=== PATIENT | female | born 1950 | race Caucasian/White ===

== ENCOUNTER 2023-11-01 16:01 | Outpatient (OUT) | payer OTHER, SELFPAY ==
[2023-11-01 16:39] LABS: Basophils Absolute Auto 0.1 10^3/uL (0.0-0.1); Basophils Percent Auto 0.4 % (0.2-2.0); Eosinophils Absolute Auto 0.5 10^3/uL (0.0-0.7); Hematocrit 43.1 % (36.0-48.0); Hemoglobin 13.9 g/dL (12.0-16.0); Immature Granulocytes Abs Auto 0.06 10^3/uL (0.00-0.03); Immature Granulocytes Pct Auto 0.5 % (0.0-0.5); Lymphocytes Absolute Auto 2.1 10^3/uL (1.2-3.8); Lymphocytes Percent Auto 17.2 % (20.5-60.0); Mean Corpuscular HGB Conc 32.3 g/dL (29.9-35.2); Mean Corpuscular Hemoglobin 28.9 pg (26.7-34.0); Mean Corpuscular Volume 89.6 fL (81.0-99.0); Mean Platelet Volume 10.4 fL (9.5-13.5); Monocytes Absolute Auto 0.6 10^3/uL (0.3-0.8); Monocytes Percent Auto 5.2 % (1.7-12.0); Neutrophils Absolute Auto 8.7 10^3/uL (1.4-6.5); Neutrophils Percent Auto 72.7 % (43.0-75.0); Platelet Count 308 10^3/uL (150-450); Red Blood Count 4.81 10^6/uL (4.20-5.40); Red Cell Distribution Width 13.9 % (11.0-15.0)
[2023-11-01 18:10] LABS: Digoxin 0.8 ng/mL (0.9-2.0)
[2023-11-01 18:11] LABS: Alanine Aminotransferase 20 U/L (14-59); Albumin Globulin Ratio 0.6; Albumin Level 3.3 g/dL (3.4-5.0); Alkaline Phosphatase 107 U/L (46-116); Anion Gap 10.2; Aspartate Amino Transferase 19 U/L (15-37); BUN Creatinine Ratio 20.3; Bilirubin Total 0.5 mg/dL (0.2-1.0); Calcium 9.5 mg/dL (8.5-10.1); Carbon Dioxide 26.8 mmol/L (21.0-32.0); Chloride 101 mmol/L (98-107); Estimated GFR (African America >60 (>=60); Estimated GFR (Non-African Ame >60 (>=60); Globulin 5.3 g/dL; Glucose 176 mg/dL (74-106); Sodium 134 mmol/L (136-145); Total Protein 8.6 g/dL (6.4-8.2)
== END 2023-11-01 16:02 | disposition home or self-care (01) ==
LOC: LAB 16:05
PROVIDERS: PCP Internal Medicine; Visit Provider Nurse Practitioner Family
DX: I48.21 Permanent atrial fibrillation (principal); I11.0 Hypertensive heart disease with heart failure
CPT/HCPCS: 36415; 80053; 80162; 85025

== ENCOUNTER 2023-11-15 08:05 | Outpatient (OUT) | payer MEDICARE, SELFPAY ==
--- OUTSIDE RECORDS SUMMARY | 2023-11-15 08:10 | XMS_ITS | CCD ---
Author Name Unknown Address [address] [place] [id number] Organization [facility] Care Team Providers Care Atomic Spectroscopist Name Role Phone YAHIR BROTHERS Referring Unavailable YAHIR BROTHERS Primary Care Unavailable LAN FROST Attending Unavailable LAN FROST Admitting Unavailable CO Procedure Practitioner Unavailab le UNKNOWN, PROVIDER Surgeon Unavailable MISC, DR COELLO Admitting Unavailable MISC, DR COELLO Attending Unavailable BROTHERS, DR GAO Primary Care Unavailable MISC, DR COELLO Consulting Unavailable ANDREA, DR GAO Admitting Unavailable ANDREA, DR GAO Attending Unavailable ANDREA, DR GAO Primary Care Unavailable BROTHERS, DR GAO Consulting Unavailable ZIEBER, DR YAYA Miller Consulting Unavailable ANDREA, DR GAO Admitting Unavailable BROTHERS, DR GAO Attending Unavailable ANDREA, DR GAO Primary Care Unavailable RBOTHERS, DR GAO Consulting Unavailable AUBURN, DR JEANETTE Armenta Consulting Unavailable YAHIR BROTHERS Attending Unavailable YAHIR BROTHERS Attending Unavailable BROTHERSYAHIR Attending Unavailable MOUKARAMAN DEL ROSARIO Attending Unavailable JESSICA PRECIADO Attending Unavailable EBER JOSHUA Attending Unavailable Allergies Allergy Classification Reported Allergen(s) Allergy Type Date of Onset Reaction(s) Facility (1 source) Estrogens Drug Allergy 9 [facility] (1 source) heparin Drug Allergy 9 [facility] (2 sources) Penicillins; Translations: [PENICILLINS] Drug allergy (disorder) 9 [facility] (2 sources) pregabalin Drug Allergy 9 [facility] (3 sources) Bleach (Sodium Hypochlorite); Translations: [Bleach (Sodium Hypochlorite)] Propensity to adverse reactions (disorder) 9 [facility] (2 sources) Aztreonam; Translations: [ESTROGENS, CONJUGATED] Drug Allergy 2 [facility] (1 source) heparin Drug Allergy [facility] (2 sources) Penicillin; Translations: [PENICILLIN] Drug Allergy 9 [facility] (1 source) Misc-ENV; Translations: [Misc-ENV] Propensity to adverse reactions (disorder) [facility] (1 source) heparin; Translations: [HEPARIN (PORCINE)] Drug Allergy 2 [facility] (1 source) heparin; Translations: [HEPARIN SODIUM, PORCINE] Drug Allergy 1 [facility] (1 source) pregabalin; Translations: [PREGABALIN] Drug Allergy 2 [facility] Problems Active Problems Problem Classification Problem Date Documented Da te Episodic/Chronic Congestive heart failure; nonhypertensive (2 sources) Chronic systolic (congestive) heart failure; Translations: [Chronic systolic (congestive) heart failure] Onset: 07-28-2022 Chronic Disorders of lipid metabolism (2 sources) Mixed hyperlipidemia; Translations: [Mixed hyperlipidemia] Onset: 05-23-2023 Chronic Essential hypertension (2 sources) Essential (primary) hypertension; Translations: [Essential (primary) hypertension] Onset: 02-19-2023 Chronic Gastrointestinal hemorrhage (2 sources) Melena; Translations: [Melena] Onset: 11-01-2023 Episodic Hypertension with complications and secondary hypertension (2 sources) Hypertensive heart disease with heart failure; Translations: [Hypertensive heart disease with heart failure] Onset: 11-01-2023 Chronic Other circulatory disease (2 sources) Presence of other vascular implants and grafts; Translations: [Presence of other vascular implants and grafts] Onset: 07-28-2022 Chronic Other nutritional; endocrine; and metabolic disorders (2 sources) Morbid (severe) obesity due to excess calories; Translations: [Morbid (severe) obesity due to excess calories] Onset: 07-28-2022 Chronic Other screening for suspected conditions (not mental disorders or infectious disease) (4 sources) Encounter for screening mammogram for malignant neoplasm of breast; Translations: [ENC SCR MAMMO MALIG NEOPLASM BREAST] Onset: 12-27-2022 Episodic Residual codes; unclassified (1 source) Family history of malignant neoplasm of breast; Translations: [FAMILY HX MALREGIS NEOPLASM OF BREAST] Onset: 01-02-2023 Episodic Residual codes; unclassified (1 source) Family history of malignant neoplasm of other genital organs; Translations: [FAM HX MALREGIS NEOPLSM OTH GENIT ORGN] Onset: 01-02-2023 Episodic Unclassified (2 sources) Permanent atrial fibrillation; Translations: [Permanent atrial fibrillation] Onset: 07-28-2022 Unclassified (1 source) Heparin-induced thrombocytopenia, unspecified; Translations: [Heparin-induced thrombocytopenia, unspecified] Onset: 07-28-2022 Past or Other Problems Problem Classification Problem Date Documented Da te Episodic/Chronic Other connective tissue disease (2 sources) Repeated falls; Translations: [Repeated falls] Onset: 07-28-2022 Episodic Other upper respiratory disease (4 sources) Other specified disorders of nose and nasal sinuses; Translations: [OTH SPEC D/O NOSE NASAL SINUSES] Onset: 05-17-2022 Episodic Pulmonary heart disease (2 sources) Personal history of pulmonary embolism; Translations: [Personal history of pulmonary embolism] Onset: 07-28-2022 Episodic Unclassified (1 source) Heparin-induced thrombocytopenia, unspecified; Translations: [Heparin-induced thrombocytopenia, unspecified] Onset: 05-23-2023 Results Test Name Value Interpretation Reference Range Facility 37on 11-01-2023 37 *Increase amlodipine to 10mg daily. You can take 2 tablets of your current 5mg prescription daily until this runs out then start new prescription of 1 - 10mg tablet daily. *Monitor your blood pressure daily 1-2 hours after medications *Have labs drawn *Follow-up with GI given dark stools Normal [facility] Office Visiton 11-01-2023 Follow-up visit [id number] Afia Gill 1950 F Date Provider Department Center 11/01/2023 Ginna-EBER JOSHUA Family History Problem Relation Age of Onset Heart attack Father Diabetes Father Hypertension Father Coronary artery disease Father Rheum arthritis Father Family Status - Relation Status Age at Father Level of Service:03798 CO OFFICE/OUTPATIENT ESTABLISHED MOD MDM 30 MIN Reason for Visit and Comments: Atrial Fibrillation [80] Congestive Heart Failure [127] Normal [facility] Office Visiton 05-23-2023 Follow-up visit [id number] Afia Gill Kassy 1950 F Date Provider Department Center 05/23/2023 RAMAN CASTANEDA CHING [facility] Family History Problem Relation Age of Onset Heart attack Father Diabetes Father Hypertension Father Coronary artery disease Father Rheum arthritis Father Family Status - Relation Status Age at Father Level of Service:54937 CO OFFICE/OUTPATIENT ESTABLISHED LOW MDM 20-29 MIN Normal [facility] CBC AUTO DIFFon 03-02-2023 BASO # 0.1 103/ul Normal 0.0-0.1 [facility] Comment on above: Performed By: #### C BC #### [facility] [address] [place] [address] Dr. Yandy Rodarte Basophils/100 WBC (Bld) 0.4 % Normal 0.2-2.0 [facility] Comment on above: Performed By: #### C BC #### [facility] [address] [place] [address] Dr. Yandy Rodarte EO # 0.5 103/ul Normal 0.0-0.7 [facility] Comment on above: Performed By: #### C BC #### [facility] [address] [place] [address] Dr. Yandy Rodarte Eosinophils/100 WBC (Bld) 4.1 % Normal 0.9-7.0 [facility] Comment on above: Performed By: #### C BC #### [facility] [address] [place] [address] Dr. Yandy Rodarte Erythrocyte distribution width (RBC) [Ratio] 14.0 % Normal 11.0-15.0 [facility] Comment on above: Performed By: #### C BC #### [facility] [address] [place] [address] Dr. Yandy Rodarte Hematocrit (Bld) [Volume fraction] 42.8 % Normal 36.0-48.0 [facility] Comment on above: Performed By: #### C BC #### [facility] [address] [place] [address] Dr. Yandy Rodarte Hemoglobin (Bld) [Mass/Vol] 13.6 g/dL Normal 12.0-16.0 [facility] Comment on above: Performed By: #### C BC #### [facility] [address] [place] [address] Dr. Yandy Rodarte IG # 0.04 10e3/ul Critically high 0.00-0.03 [facility] Comment on above: Performed By: #### C BC #### [facility] [address] [place] [address] Dr. Yandy Rodarte IG % 0.4 % Normal 0.0-0.5 [facility] Comment on above: Performed By: #### C BC #### [facility] [address] [place] [address] Dr. Yandy Rodarte LYMPH # 2.2 103/ul Normal 1.2-3.8 [facility] Comment on above: Performed By: #### C BC #### [facility] [address] [place] [address] Dr. Yandy Rodarte Lymphocytes/100 WBC (Bld) 20.0 % Critically low 20.5-60.0 [facility] Comment on above: Performed By: #### C BC #### [facility] [address] [place] [address] Dr. Yandy Rodarte MANUAL DIFF REQ NO Normal [facility] Comment on above: Performed By: #### C BC #### [facility] [address] [place] [address] Dr. Yandy Rodarte MCH (RBC) [Entitic mass] 28.2 pg Normal 26.7-34.0 [facility] Comment on above: Performed By: #### C BC #### [facility] [address] [place] [address] Dr. Yandy Rodarte MCHC (RBC) [Mass/Vol] 31.8 g/dL Normal 29.9-35.2 [facility] Comment on above: Performed By: #### C BC #### [facility] [address] [place] [address] Dr. Yandy Rodarte MCV (RBC) [Entitic vol] 88.8 fL Normal 81.0-99.0 [facility] Comment on above: Performed By: #### C BC #### [facility] [address] [place] [address] Dr. Yandy Rodarte MONO # 0.7 103/ul Normal 0.3-0.8 [facility] Comment on above: Performed By: #### C BC #### [facility] [address] [address] [address] Yandy Rodarte Monocytes/100 WBC (Bld) 6.3 % Normal 1.7-12.0 [facility] Comment on above: Performed By: #### C BC #### [facility] [address] [place] [address] Dr. Yandy Rodarte NEUT # 7.7 103/ul Critically high 1.4-6.[address] [facility] Comment on above: Performed By: #### C BC #### [facility] [address] [place] [address] Dr. Yandy Rodarte Neutrophils/100 WBC (Bld) 68.8 % Normal 43.0-75.0 [facility] Comment on above: Performed By: #### C BC #### [facility] [address] [place] [address] Dr. Yandy Rodarte Platelet mean volume (Bld) [Entitic vol] 9.8 fL Normal 9.5-13.5 [facility] Comment on above: Performed By: #### C BC #### [facility] [address] [place] [address] Dr. Yandy Rodarte PLT 259 103/ul Normal 150-450 [facility] Comment on above: Performed By: #### C BC #### [facility] [address] [place] [address] Dr. Yandy Rodarte RBC 4.82 106/ul Normal 4.20-5.40 [facility] Comment on above: Performed By: #### C BC #### [facility] [address] [place] [address] Dr. Yandy Rodarte WBC 11.2 103/ul Critically high 4.0-11.0 [facility] Comment on above: Performed By: #### C BC #### [facility] [address] [address] [address] Yandy Rodarte ECHOCARDIO M/2D COMPLETEon 0 03-02-2023 ECHOCARDIO M/2D COMPLETE Patient: AFIA GILL Exam Date: 03/02/2023 : 1950 Gender:F Ordering : MRS. JESSICA PRECIADO [employer] Admission #: [id number] Family : Order #: [id number] CLICK HERE TO VIEW EXAM ECHOCARDIOGRAM REPORT PROCEDURE: CARDIO PULMONARY ECHOCARDIO M/2D COMP INDICATIONS: Chronic systolic heart failure COMPARISON: None. DESCRIPTION: COMPLETE ECHOCARDIOGRAM Real-time transthoracic echocardiography with 2D, M-mode, spectral and color flow Doppler performed. QUALITY: Technical quality was limited. LEFT VENTRICLE: Normal size. Mild concentric left ventricular hypertrophy. Systolic function is difficult to assess but appears preserved. LV EF: Normal left ventricular ejection fraction, (55%). DIASTOLIC: ATRIAL SEPTUM: Visually appears intact. LEFT ATRIUM: Moderate dilatation. RIGHT ATRIUM: Mild dilatation. RIGHT VENTRICLE: Normal chamber size. Normal systolic function. TRICUSPID VALVE: Normal mobility and thickness. No stenosis with no regurgitation. MITRAL VALVE: Mildly thickened with normal mobility. No evidence of mitral valve stenosis. There is no mitral annular calcification. Trivial mitral regurgitation. AORTIC VALVE: Normal trileaflet appearance. Mildly calcified aortic valve. Normal leaflet mobility. No evidence of aortic valve stenosis. No aortic regurgitation. AORTIC ROOT: Normal diameter and appearance. PULMONIC VALVE: Normal thickness and mobility. No stenosis. No regurgitation. PERICARDIUM: No evidence of pericardial effusion. IVC: Collapses with inspirations. IVC is dilated (2.6 cm) PLEURA: CONCLUSION: 1. Left ventricular systolic function is difficult to assess but appears preserved. LVEF is 55%. 2. Normal right ventricular size and systolic function. 3. Moderate left atrial dilatation. 4. No significant valvular dysfunction. Adult Echocardiography Procedure Report Left Ventricle LVEDD (3.7 - 5.6 cm): 5.24 cm LVESD (2.2 - 4.0 cm): 3.09 cm LVIVS thickness (0.6 - 1.2 cm): 1.17 cm LVPW thickness (0.5 - 1.0 cm): 1.36 cm LVOT Max Gradient: 1 mm[Hg] Peak Velocity (LVOT): 60.20 cm/s LVOT Diameter 2.20 cm Left Ventricular Ejection Fraction: 55 % Left Atrium LA Volume Index (2D A2C): 897994 mm3 Left Atrium Systolic Dimension: 3.80 cm Mitral Valve MV E to A Ratio: 3.60 Mitral Valve A-Wave Peak Velocity: 28.10 cm/s Mitral Valve E-Wave Peak Velocity: 102.00 cm/s Right Ventricle Aorta AO Root Diam: 3.20 cm Aortic Valve AoV Area (Peak Baldo): 1.45 cm2 Peak Velocity(Antegrade Flow): 158.00 cm/s Peak Gradient(Antegrade Flow): 10 mm[Hg] Tricuspid Valve Peak Velocity: 38.50 cm/s Pulmonic Valve Peak Velocity: 82.40 cm/s, 102.00 cm/s Peak Gradient: 3 mm[Hg] Right Atrium Dictated by: Raman Gomez M.D. on 03/02/2023 at 19:13 Approved by: Raman Gomez M.D. on 03/02/2023 at 19:19 Normal [facility] LIPID PROFILEon 03-02-2023 CHOL-HDL RATIO NORM SEE BELOW Normal [facility] Comment on above: Result Comment: 3.3 - 4.4 LOW RISK 4.4 - 7.1 AVERAGE RISK 7.1 - 11.0 MODERATE RISK >11.0 HIGH RISK Performed By: #### L JONATHAN, CMP #### [facility] [address] [place] [address] Dr. Yandy Rodarte Cholesterol [Mass/Vol] 203 mg/dL Critically high <=200 [facility] Comment on above: Performed By: #### L IPID, CMP #### [facility] [address] [place] [address] Dr. Yandy Rodarte Cholesterol in HDL [Mass/Vol] 35 mg/dL Critically low 40-60 [facility] Comment on above: Performed By: #### L IPID, CMP #### [facility] [address] [place] [address] Dr. Yandy Rodarte Cholesterol in LDL [Mass/Vol] 123.0 mg/dL Normal [facility] Comment on above: Performed By: #### L IPID, CMP #### [facility] [address] [address] [address] Yandy Rodarte Cholesterol.total/C holesterol in HDL [Mass ratio] 5.8 {ratio} Normal [facility] Comment on above: Performed By: #### L IPID, CMP #### [facility] [address] [address] [address] Yandy Rodarte HDL NORMAL > or = 60 mg/dl - LO W CARDIOVASCULAR RISK <40 mg/dl - HIGH CARDIOVASCULAR RISK Normal [facility] Comment on above: Performed By: #### L IPID, CMP #### [facility] [address] [address] [address] Yandy Rodarte LDL CALC NORMAL SEE BELOW Normal [facility] Comment on above: Result Comment: <100 mg/dl OPTIMAL 100 - 129 mg/dl NEAR OR ABOVE OPTIMAL 130 - 159 mg/dl BORDERLINE HIGH 160 - 189 mg/dl HIGH >190 mg/dl VERY HIGH Performed By: #### L IPID, CMP #### [facility] [address] [address] [address] Yandy Rodarte Triglyceride [Mass/Vol] 225 mg/dL Critically high <=150 [facility] Comment on above: Performed By: #### L IPID, CMP #### [facility] [address] [place] [address] Dr. Yandy Rodarte VLDL CALC 45.0 mg/dL Normal [facility] Comment on above: Performed By: #### L IPID, CMP #### [facility] [address] [place] [address] Dr. Yandy Rodarte PROF 14(COMP METB)on 023 Albumin [Mass/Vol] 3.5 g/dL Normal 3.4-5.0 [facility] Comment on above: Performed By: #### L IPID, CMP #### [facility] [address] [place] [address] Dr. Yandy Rodarte Albumin/Globulin [Mass ratio] 0.8 {ratio} Normal [facility] Comment on above: Performed By: #### L IPID, CMP #### [facility] [address] [place] [address] Dr. Yandy Rodarte ALP [Catalytic activity/Vol] 100 U/L Normal 46-116 [facility] Comment on above: Performed By: #### L IPID, CMP #### [facility] [address] [address] [address] Yandy Rodarte ALT [Catalytic activity/Vol] 22 U/L Normal 14-59 [facility] Comment on above: Performed By: #### L IPID, CMP #### [facility] [address] [address] [address] Yandy Rodarte Anion gap [Moles/Vol] 8.9 mmol/L Normal [facility] Comment on above: Performed By: #### L IPID, CMP #### [facility] [address] [place] [address] Dr. Yandy Rodarte AST [Catalytic activity/Vol] 17 U/L Normal 15-37 [facility] Comment on above: Performed By: #### L IPID, CMP #### [facility] [address] [place] [address] Dr. Yandy Rodarte Bilirubin [Mass/Vol] 0.4 mg/dL Normal 0.2-1.0 [facility] Comment on above: Performed By: #### L IPID, CMP #### [facility] [address] [place] [address] Dr. Yandy Rodarte Calcium [Mass/Vol] 9.2 mg/dL Normal 8.5-10.1 [facility] Comment on above: Performed By: #### L IPID, CMP #### [facility] [address] [place] [address] Dr. Yandy Rodarte Chloride [Moles/Vol] 104 mmol/L Normal 98-107 [facility] Comment on above: Performed By: #### L IPID, CMP #### [facility] [address] [place] [address] Dr. Yandy Rodarte CO2 [Moles/Vol] 32.6 mmol/L Critically high 21.0-32.0 [facility] Comment on above: Performed By: #### L IPID, CMP #### [facility] [address] [place] [address] Dr. Yandy Rodarte Creatinine [Mass/Vol] 0.81 mg/dL Normal 0.55-1.02 [facility] Comment on above: Performed By: #### L IPID, CMP #### [facility] [address] [place] [address] Dr. Yandy Rodarte EGFR-AF SAUDI ARABIAN >60 Normal >=60 [facility] Comment on above: Performed By: #### L IPID, CMP #### [facility] [address] [address] [address] Yandy Rodarte EGFR-NON AF SAUDI ARABIAN >60 Normal >=60 [facility] Comment on above: Performed By: #### L IPID, CMP #### [facility] [address] [address] [address] Yandy Rodarte Globulin (S) [Mass/Vol] 4.6 g/dL Normal [facility] Comment on above: Performed By: #### L IPID, CMP #### [facility] [address] [address] [address] Yandy Rodarte Glucose [Mass/Vol] 114 mg/dL Critically high 74-106 [facility] Comment on above: Performed By: #### L IPID, CMP #### [facility] [address] [address] [address] Yandy Rodarte Potassium [Moles/Vol] 4.5 mmol/L Normal 3.5-5.1 [facility] Comment on above: Performed By: #### L IPID, CMP #### [facility] [address] [address] [address] Yandy Rodarte Protein [Mass/Vol] 8.1 g/dL Normal 6.4-8.2 [facility] Comment on above: Performed By: #### L IPID, CMP #### [facility] [address] [address] [address] Yandy Rodarte Sodium [Moles/Vol] 141 mmol/L Normal 136-145 [facility] Comment on above: Performed By: #### L IPID, CMP #### [facility] [address] [address] [address] Yandy Rodarte Urea nitrogen [Mass/Vol] 18.0 mg/dL Normal 7.0-18.0 [facility] Comment on above: Performed By: #### L IPID, CMP #### [facility] [address] [address] [address] Yandy Rodarte Urea nitrogen/Creatinine [Mass ratio] 22.2 mg/mg Normal [facility] Comment on above: Performed By: #### L IPID, CMP #### [facility] [address] [address] [address] Yandy Rodarte Office Visiton 02-19-2023 Follow-up visit [id number] ChamaAfia trevino 1950 F Date Provider Department Center 02/19/2023 [id number] PRECIADO [facility] Family History Problem Relation Age of Onset Heart attack Father Diabetes Father Hypertension Father Coronary artery disease Father Rheum arthritis Father Family Status - Relation Status Age at Father Level of Service:75295 CO OFFICE/OUTPATIENT ESTABLISHED MOD MDM 30-39 MIN Reason for Visit and Comments: Follow-up [719971] - 6 month follow up Normal [facility] MG MAMM SCREEN MARIELENA W CADon 0 12-27-2022 MG MAMM SCREEN MARIELENA W CAD Patient: AFIA GILL. Exam Date: 12/27/2022 : 1950 Gender:F Ordering : DR YAHIR BROTHERS M.D. Admission #: [id number] Family : Order #: [id number] CLICK HERE TO VIEW EXAM RADIOLOGY REPORT PROCEDURE: MAMMOGRAM BILATERAL SCREENING DIGITAL WITH COMPUTER AIDED DETECTION COMPARISON: MG MAMM SCREEN MARIELENA W CAD, 11/03/2020. MG MAMM SCREEN MARIELENA W CAD, 12/26/2021. INDICATIONS: Screening mammography Calculator Name NCI Breast Cancer Risk Assessment Tool 5 Year Breast Cancer Risk 1.50% Lifetime Breast Cancer Risk 4.30% Personal Breast Cancer No Personal Ovarian Cancer No Treatments None Family Cancers Grandmother-paternal with breast cancer at age 60; Sister with cervical cancer at age 35. LOCATION: [facility] BREAST COMPOSITION: Scattered areas fibroglandular density. FINDINGS: DIAGNOSTIC CATEGORY 2--BENIGN FINDING. NO CHANGE FROM COMPARISON. Scattered benign-appearing calcifications are present. Scattered benign-appearing nodules are present. Very limited evaluation secondary to patient being in a motorized wheelchair. 2D only images. Significant portions of the breasts are not imaged. RIGHT BREAST: No significant suspicious finding. LEFT BREAST: No significant suspicious finding. RECOMMENDATIONS: ROUTINE MAMMOGRAM AND CLINICAL EVALUATION IN 12 MONTHS. PLEASE NOTE: A NORMAL MAMMOGRAM DOES NOT EXCLUDE THE POSSIBILITY OF BREAST CANCER. A CLINICALLY SUSPICIOUS PALPABLE LUMP SHOULD BE BIOPSIED. Dictated by: Jeanette Pang MD on 12/28/2022 at 09:36 Approved by: Jeanette Pang MD on 12/28/2022 at 09:38 Normal [facility] CT SINUSES WO CONon 05-18-[address] SINUSES WO CON EXAMINATION: CT SINUSES WO CON HISTORY: Nasal discharge ; chronic nasal drip COMPARISON: CT head 06/17/2021, CT sinuses 10/18/2010 TECHNIQUE: Axial and Coronal CT images were created without IV contrast. Dose reduction techniques were achieved by using automated exposure control and/or adjustment of mA and/or kV according to patient size and/or use of iterative reconstruction technique. FINDINGS: MAXILLARY SINUSES: No significant mucosal thickening or fluid. Infundibula are patent. No significant anomalous inferior orbital ethmoid (Khris) air cells. ETHMOID SINUSES: No significant mucosal thickening or fluid. Fovea ethmoidali and lamina papyracea are symmetric and intact. SPHENOID SINUSES: No significant mucosal thickening or fluid. Sphenoethmoidal recesses are patent. No bony dehiscence. FRONTAL SINUSES: No significant mucosal thickening or fluid. Frontal recesses are patent. NASAL FOSSA: No deviation of the nasal septum. No geovanna bullosa or paradoxical turbinates are identified. OTHER: Negative. Limited views of the skull base and orbits are unremarkable. IMPRESSION: 1. Normal CT appearance of the paranasal sinuses. Electronically authenticated by: YAYA ZULUAGA Date: 2022-05-18 08:38 Normal [facility] BASIC METABOLIC PANELon 01-20 Calcium [Mass/Vol] 9.6 mg/dL Normal 8.6-10.3 [facility] Comment on above: Order Comment: No: D o not add to previous draw Performed By: #### [id number] #### [facility] [address] [place] [address], [place] Chloride [Moles/Vol] 101 mmol/L Normal 98-107 [facility] Comment on above: Order Comment: No: D o not add to previous draw Performed By: #### [id number] #### [facility] [address] [place] [address], [place] CO2 [Moles/Vol] 29 mmol/L Normal 21-31 [facility] Comment on above: Order Comment: No: D o not add to previous draw Performed By: #### [id number] #### [facility] [address] [place] [address], [place] Creatinine [Mass/Vol] 0.71 mg/dL Normal 0.60-1.20 [facility] Comment on above: Order Comment: No: D o not add to previous draw Performed By: #### [id number] #### [facility] [address] [place] [address], [place] GFR/1.73 sq M predicted among blacks MDRD (S/P/Bld) [Vol rate/Area] mL/min/{1.73_m2} Normal >60 [facility] Comment on above: Order Comment: No: D o not add to previous draw Performed By: #### [id number] #### [facility] [address] [place] [address], [place] GFR/1.73 sq M predicted among non-blacks MDRD (S/P/Bld) [Vol rate/Area] mL/min/{1.73_m2} Normal >60 [facility] Comment on above: Order Comment: No: D o not add to previous draw Performed By: #### [id number] #### [facility] [address] [place] [address], [place] Glucose [Mass/Vol] 127 mg/dL High 70-100 [facility] Comment on above: Order Comment: No: D o not add to previous draw Performed By: #### [id number] #### [facility] [address] [place] [address], [facility] Potassium [Moles/Vol] 4.3 mmol/L Normal 3.5-5.1 [facility] Comment on above: Order Comment: No: D o not add to previous draw Performed By: #### [id number] #### [facility] [address] [place] [address], [place] Sodium [Moles/Vol] 137 mmol/L Normal 136-145 [facility] Comment on above: Order Comment: No: D o not add to previous draw Performed By: #### [id number] #### [facility] [address] [place] [id number], [facility] Urea nitrogen [Mass/Vol] 20 mg/dL Normal 7-25 [facility] Comment on above: Order Comment: No: D o not add to previous draw Performed By: #### [id number] #### [facility] [address] [place] [id number], [facility] CBC COMPLETE BLOOD COUNTon 0 - Erythrocyte distribution width (RBC) [Ratio] 14.6 % Normal 11.5-15.0 [facility] Comment on above: Order Comment: No: D o not add to previous draw Performed By: #### [id number] #### [facility] [address] [place] [id number], [facility] Hematocrit (Bld) [Volume fraction] 44.6 % Normal 36.0-45.0 [facility] Comment on above: Order Comment: No: D o not add to previous draw Performed By: #### [id number] #### [facility] [address] [place] [id number], [facility] Hemoglobin (Bld) [Mass/Vol] 14.1 g/dL Normal 12.0-15.0 [facility] Comment on above: Order Comment: No: D o not add to previous draw Performed By: #### 5 [id number] #### [facility] [address] [place] [address], [facility] MCH (RBC) [Entitic mass] 30.2 pg Normal 27.0-33.0 [facility] Comment on above: Order Comment: No: D o not add to previous draw Performed By: #### [id number] #### [facility] [address] [place] [address], [facility] MCHC (RBC) [Mass/Vol] 31.6 g/dL Low 32.0-35.0 [facility] Comment on above: Order Comment: No: D o not add to previous draw Performed By: #### [id number] #### [facility] [address] [facility] [place] [address], [facility] MCV (RBC) [Entitic vol] 95.5 fL Normal 82.0-98.0 [facility] Comment on above: Order Comment: No: D o not add to previous draw Performed By: #### [id number] #### [facility] [address] Nucleated RBC/100 WBC (Bld) [Ratio] 0 % Normal 0-0 [facility] Comment on above: Order Comment: No: D o not add to previous draw Performed By: #### [id number] #### [facility] [address] [facility] [place] [address], [facility] PLAT CNT 250 10*3/uL Normal 150-400 [facility] Comment on above: Order Comment: No: D o not add to previous draw Performed By: #### [id number] #### [facility] [address] [facility] [place] [address], [facility] RBC (Bld) [#/Vol] 4.67 10*6/uL Normal 3.80-5.00 [facility] Comment on above: Order Comment: No: D o not add to previous draw Performed By: #### [id number] #### [facility] [address] WBC (Bld) [#/Vol] 9.20 10*3/uL Normal 4.00-10.60 [facility] Comment on above: Order Comment: No: D o not add to previous draw Performed By: #### [id number] #### [facility] [address] [facility]. [address] POC GLUCOSE LABon 02-02-2019 Glucose [Mass/Vol] 146 mg/dL High 70-100 [facility] Comment on above: Performed By: #### [id number] #### [facility] [address] [facility]. [address] Glucose [Mass/Vol] 115 mg/dL High 70-100 [facility] Comment on above: Performed By: #### [id number] #### [facility] [address] [facility]. [address] PROTHROMBIN TIMEon 9 INR Coag (PPP) [Relative time] 1.22 {INR} High 0.91-1.16 [facility] Comment on above: Order Comment: No: D o not add to previous draw Result Comment: ACCC P RECOMMENDED INR FOR WARFARIN THERAPY ------ ------- CONDITION INR PROPHYLAXIS OF VENOUS THROMBOSIS 2-3 (HIGH-RISK SURGERY) TREATMENT OF VENOUS THROMBOSIS 2-3 TREATMENT OF PULMONARY EMBOLISM 2-3 PREVENTION OF SYSTEMIC EMBOLISM: 2-3 ACUTE MYOCARDIAL INFARCTION TISSUE HEART VALVES VALVULAR HEART DISEASE ATRIAL FIBRILLATION RECURRENT SYSTEMIC EMBOLISM MECHANICAL HEART VALVE 2.5-3.5 FROM: ORAL ANTICOAGULANTS. MECHANISM OF ACTION, CLINICAL EFFECTIVENESS, AND OPTIMAL THERAPEUTIC RANGE. CHEST 1995;108:231S-246S. Performed By: #### [id number] #### [facility] [address] [facility] [place] [address], [facility] PT Coag (PPP) [Time] 15.4 s High 12.3-14.8 [facility] Comment on above: Order Comment: No: D o not add to previous draw Result Comment: ALL RESULTS MUST BE INTERPRETED WITH RESPECT TO BLOOD DRAWING ARTIFACT OR DILUTION ERROR OF ANTICOAGULANT AT THE TIME OF SAMPLING. Performed By: #### [id number] #### [facility] [address] [facility] [place] [address], [facility] POC GLUCOSE LABon 02-01-2019 Glucose [Mass/Vol] 152 mg/dL High 70-100 [facility] Comment on above: Performed By: #### [id number] #### [facility] [address] [facility] [place] [place] [address], [facility] Glucose [Mass/Vol] 118 mg/dL High 70-100 [facility] Comment on above: Performed By: #### [id number] #### [facility] [address] [facility] [place] [place] [address], [facility] Glucose [Mass/Vol] 197 mg/dL High 70-100 [facility] Comment on above: Performed By: #### 5 [id number] #### [facility] [address] [facility] [place] [address], [facility] Glucose [Mass/Vol] 123 mg/dL High 70-100 [facility] Comment on above: Performed By: #### [id number] #### [facility] [address] [facility] [place] [place] [address], [facility] PROTHROMBIN TIMEon 9 INR Coag (PPP) [Relative time] 1.24 {INR} High 0.91-1.16 [facility] Comment on above: Order Comment: Unkno wn Result Comment: ACCC P RECOMMENDED INR FOR WARFARIN THERAPY ------ ------- CONDITION INR PROPHYLAXIS OF VENOUS THROMBOSIS 2-3 (HIGH-RISK SURGERY) TREATMENT OF VENOUS THROMBOSIS 2-3 TREATMENT OF PULMONARY EMBOLISM 2-3 PREVENTION OF SYSTEMIC EMBOLISM: 2-3 ACUTE MYOCARDIAL INFARCTION TISSUE HEART VALVES VALVULAR HEART DISEASE ATRIAL FIBRILLATION RECURRENT SYSTEMIC EMBOLISM MECHANICAL HEART VALVE 2.5-3.5 FROM: ORAL ANTICOAGULANTS. MECHANISM OF ACTION, CLINICAL EFFECTIVENESS, AND OPTIMAL THERAPEUTIC RANGE. CHEST 1995;108:231S-246S. Performed By: #### 0 [id number] #### [facility] [address] PT Coag (PPP) [Time] 15.6 s High 12.3-14.8 [facility] Comment on above: Order Comment: Shaan brunson Result Comment: ALL RESULTS MUST BE INTERPRETED WITH RESPECT TO BLOOD DRAWING ARTIFACT OR DILUTION ERROR OF ANTICOAGULANT AT THE TIME OF SAMPLING. Performed By: #### 0 [id number] #### [facility] [address] BASIC METABOLIC PANELon 01-20 Calcium [Mass/Vol] 9.5 mg/dL Normal 8.6-10.3 [facility] Comment on above: Order Comment: No: D o not add to previous draw Performed By: #### 0 [id number] #### [facility] [address] Chloride [Moles/Vol] 98 mmol/L Normal 98-107 [facility] Comment on above: Order Comment: No: D o not add to previous draw Performed By: #### 0 [id number] #### [facility] [address] [place] [address], [place] CO2 [Moles/Vol] 29 mmol/L Normal 21-31 [facility] Comment on above: Order Comment: No: D o not add to previous draw Performed By: #### 0 [id number] #### [facility] [address] [place] [address], [place] Creatinine [Mass/Vol] 0.72 mg/dL Normal 0.60-1.20 [facility] Comment on above: Order Comment: No: D o not add to previous draw Performed By: #### 0 [id number] #### [facility] [address] [place] [address], [place] GFR/1.73 sq M predicted among blacks MDRD (S/P/Bld) [Vol rate/Area] mL/min/{1.73_m2} Normal >60 [facility] Comment on above: Order Comment: No: D o not add to previous draw Performed By: #### 0 [id number] #### [facility] [address] [place] [address], [place] GFR/1.73 sq M predicted among non-blacks MDRD (S/P/Bld) [Vol rate/Area] mL/min/{1.73_m2} Normal >60 [facility] Comment on above: Order Comment: No: D o not add to previous draw Performed By: #### 0 [id number] #### [facility] [address] [place] [address], [place] Glucose [Mass/Vol] 120 mg/dL High 70-100 [facility] Comment on above: Order Comment: No: D o not add to previous draw Performed By: #### 0 [id number] #### [facility] [address] [place] [address], [place] Potassium [Moles/Vol] 3.5 mmol/L Normal 3.5-5.1 [facility] Comment on above: Order Comment: No: D o not add to previous draw Performed By: #### 0 [id number] #### [facility] [address] [place] [address], [facility] Sodium [Moles/Vol] 138 mmol/L Normal 136-145 [facility] Comment on above: Order Comment: No: D o not add to previous draw Performed By: #### 0 [id number] #### [facility] [address] [place] [address], [facility] Urea nitrogen [Mass/Vol] 20 mg/dL Normal 7-25 [facility] Comment on above: Order Comment: No: D o not add to previous draw Performed By: #### 0 [id number] #### [facility] [address] [place] [address], [facility] CBC COMPLETE BLOOD COUNTon - Erythrocyte distribution width (RBC) [Ratio] 14.6 % Normal 11.5-15.0 [facility] Comment on above: Order Comment: No: D o not add to previous draw Performed By: #### 0 [id number] #### [facility] [address] [place] [address], [facility] Hematocrit (Bld) [Volume fraction] 42.7 % Normal 36.0-45.0 [facility] Comment on above: Order Comment: No: D o not add to previous draw Performed By: #### 0 [id number] #### [facility] [address] [place] [address], [facility] Hemoglobin (Bld) [Mass/Vol] 13.8 g/dL Normal 12.0-15.0 [facility] Comment on above: Order Comment: No: D o not add to previous draw Performed By: #### 0 [id number] #### [facility] [address] [place] [address], [place] MCH (RBC) [Entitic mass] 31.0 pg Normal 27.0-33.0 [facility] Comment on above: Order Comment: No: D o not add to previous draw Performed By: #### 0 [id number] #### [facility] [address] [place] [address], [facility] MCHC (RBC) [Mass/Vol] 32.3 g/dL Normal 32.0-35.0 [facility] Comment on above: Order Comment: No: D o not add to previous draw Performed By: #### 0 [id number] #### [facility] [address] [place] [address], [facility] MCV (RBC) [Entitic vol] 96.0 fL Normal 82.0-98.0 [facility] Comment on above: Order Comment: No: D o not add to previous draw Performed By: #### 0 [id number] #### [facility] [address] [facility] [address], [facility] Nucleated RBC/100 WBC (Bld) [Ratio] 0 % Normal 0-0 [facility] Comment on above: Order Comment: No: D o not add to previous draw Performed By: #### 0 [id number] #### [facility] [address] [place] [address], [facility] PLAT CNT 217 10*3/uL Normal 150-400 [facility] Comment on above: Order Comment: No: D o not add to previous draw Performed By: #### 0 [id number] #### [facility] [address] [facility] [place] [address], [facility] RBC (Bld) [#/Vol] 4.45 10*6/uL Normal 3.80-5.00 [facility] Comment on above: Order Comment: No: D o not add to previous draw Performed By: #### 0 [id number] #### [facility] [address] [place] [address], [facility] WBC (Bld) [#/Vol] 9.17 10*3/uL Normal 4.00-10.60 [facility] Comment on above: Order Comment: No: D o not add to previous draw Performed By: #### 0 [id number] #### [facility] [address] [place] [address], [facility] POC GLUCOSE LABon 01-31-2019 Glucose [Mass/Vol] 116 mg/dL High 70-100 [facility] Comment on above: Performed By: #### 0 [id number] #### [facility] [address] [facility] [place] [address], [place] Glucose [Mass/Vol] 122 mg/dL High 70-100 [facility] Comment on above: Performed By: #### 0 [id number] #### [facility] [address] [place] [address], [place] Glucose [Mass/Vol] 191 mg/dL High 70-100 [facility] Comment on above: Performed By: #### 0 [id number] #### [facility] [address] [place] [address], [place] Glucose [Mass/Vol] 131 mg/dL High 70-100 [facility] Comment on above: Performed By: #### 0 [id number] #### [facility] [address] [place] [address], [facility] PROTHROMBIN TIMEon 9 INR Coag (PPP) [Relative time] 1.24 {INR} High 0.91-1.16 [facility] Comment on above: Order Comment: Unkno wn Result Comment: ACCC P RECOMMENDED INR FOR WARFARIN THERAPY ------ ------- CONDITION INR PROPHYLAXIS OF VENOUS THROMBOSIS 2-3 (HIGH-RISK SURGERY) TREATMENT OF VENOUS THROMBOSIS 2-3 TREATMENT OF PULMONARY EMBOLISM 2-3 PREVENTION OF SYSTEMIC EMBOLISM: 2-3 ACUTE MYOCARDIAL INFARCTION TISSUE HEART VALVES VALVULAR HEART DISEASE ATRIAL FIBRILLATION RECURRENT SYSTEMIC EMBOLISM MECHANICAL HEART VALVE 2.5-3.5 FROM: ORAL ANTICOAGULANTS. MECHANISM OF ACTION, CLINICAL EFFECTIVENESS, AND OPTIMAL THERAPEUTIC RANGE. CHEST 1995;108:231S-246S. Performed By: #### 0 [id number] #### [facility] [address] [place] [address], [facility] PT Coag (PPP) [Time] 15.6 s High 12.3-14.8 [facility] Comment on above: Order Comment: Unkno wn Result Comment: ALL RESULTS MUST BE INTERPRETED WITH RESPECT TO BLOOD DRAWING ARTIFACT OR DILUTION ERROR OF ANTICOAGULANT AT THE TIME OF SAMPLING. Performed By: #### 0 [id number] #### [facility] [address] [facility]. [address] BASIC METABOLIC PANELon - Calcium [Mass/Vol] 10.0 mg/dL Normal 8.6-10.3 [facility] Comment on above: Order Comment: No: D o not add to previous draw Performed By: #### 0 [id number] #### [facility] [address] [facility] [place] [address], [facility] Chloride [Moles/Vol] 99 mmol/L Normal 98-107 [facility] Comment on above: Order Comment: No: D o not add to previous draw Performed By: #### 0 [id number] #### [facility] [address] [facility] [place] [address], [facility] CO2 [Moles/Vol] 30 mmol/L Normal 21-31 [facility] Comment on above: Order Comment: No: D o not add to previous draw Performed By: #### 0 [id number] #### [facility] [address] [facility] [place] [address], [facility] Creatinine [Mass/Vol] 0.74 mg/dL Normal 0.60-1.20 [facility] Comment on above: Order Comment: No: D o not add to previous draw Performed By: #### 0 [id number] #### [facility] [address] [place] [address], [place] GFR/1.73 sq M predicted among blacks MDRD (S/P/Bld) [Vol rate/Area] mL/min/{1.73_m2} Normal >60 [facility] Comment on above: Order Comment: No: D o not add to previous draw Performed By: #### 0 [id number] #### [facility] [address] [place] [address], [facility] GFR/1.73 sq M predicted among non-blacks MDRD (S/P/Bld) [Vol rate/Area] mL/min/{1.73_m2} Normal >60 [facility] Comment on above: Order Comment: No: D o not add to previous draw Performed By: #### 0 [id number] #### [facility] [address] [place] [address], [place] Glucose [Mass/Vol] 112 mg/dL High 70-100 [facility] Comment on above: Order Comment: No: D o not add to previous draw Performed By: #### 0 [id number] #### [facility] [address] [place] [address], [place] Potassium [Moles/Vol] 4.3 mmol/L Normal 3.5-5.1 [facility] Comment on above: Order Comment: No: D o not add to previous draw Performed By: #### 0 [id number] #### [facility] [address] [place] [address], [place] Sodium [Moles/Vol] 137 mmol/L Normal 136-145 [facility] Comment on above: Order Comment: No: D o not add to previous draw Performed By: #### 0 [id number] #### [facility] [address] [place] [address], [place] Urea nitrogen [Mass/Vol] 20 mg/dL Normal 7-25 [facility] Comment on above: Order Comment: No: D o not add to previous draw Performed By: #### 0 [id number] #### [facility] [address] [place] [address], [place] Calcium [Mass/Vol] 9.3 mg/dL Normal 8.6-10.3 [facility] Comment on above: Order Comment: No: D o not add to previous draw Performed By: #### [id number] #### [facility] [address] [place] [address], [place] Chloride [Moles/Vol] 103 mmol/L Normal 98-107 [facility] Comment on above: Order Comment: No: D o not add to previous draw Performed By: #### [id number] #### [facility] [address] [place] [address], [place] CO2 [Moles/Vol] 28 mmol/L Normal 21-31 [facility] Comment on above: Order Comment: No: D o not add to previous draw Performed By: #### [id number] #### [facility] [address] [place] [address], [place] Creatinine [Mass/Vol] 0.62 mg/dL Normal 0.60-1.20 [facility] Comment on above: Order Comment: No: D o not add to previous draw Performed By: #### [id number] #### [facility] [address] [place] [address], [place] GFR/1.73 sq M predicted among blacks MDRD (S/P/Bld) [Vol rate/Area] mL/min/{1.73_m2} Normal >60 [facility] Comment on above: Order Comment: No: D o not add to previous draw Performed By: #### [id number] #### [facility] [address] [place] [address], [facility] GFR/1.73 sq M predicted among non-blacks MDRD (S/P/Bld) [Vol rate/Area] mL/min/{1.73_m2} Normal >60 [facility] Comment on above: Order Comment: No: D o not add to previous draw Performed By: #### [id number] #### [facility] [address] [place] [address], [place] Glucose [Mass/Vol] 117 mg/dL High 70-100 [facility] Comment on above: Order Comment: No: D o not add to previous draw Performed By: #### [id number] #### [facility] [facility] [address] [place] [address], [place] Potassium [Moles/Vol] 3.5 mmol/L Normal 3.5-5.1 [facility] Comment on above: Order Comment: No: D o not add to previous draw Performed By: #### 5 6101 #### [facility] [address] [place] [address], [place] Sodium [Moles/Vol] 140 mmol/L Normal 136-145 [facility] Comment on above: Order Comment: No: D o not add to previous draw Performed By: #### 5 6101 #### [facility] [address] [place] [address], [place] Urea nitrogen [Mass/Vol] 15 mg/dL Normal 7-25 [facility] Comment on above: Order Comment: No: D o not add to previous draw Performed By: #### 5 6101 #### [facility] [address] [place] [address], [place] CBC COMPLETE BLOOD COUNTon 0 - Erythrocyte distribution width (RBC) [Ratio] 14.6 % Normal 11.5-15.0 [facility] Comment on above: Order Comment: No: D o not add to previous draw Performed By: #### 5 [id number] #### [facility] [address] [place] [address], [facility] Hematocrit (Bld) [Volume fraction] 42.1 % Normal 36.0-45.0 [facility] Comment on above: Order Comment: No: D o not add to previous draw Performed By: #### 5 [id number] #### [facility] [address] [place] [address], [facility] Hemoglobin (Bld) [Mass/Vol] 13.4 g/dL Normal 12.0-15.0 [facility] Comment on above: Order Comment: No: D o not add to previous draw Performed By: #### 5 [id number] #### [facility] [address] [facility] [place] [id number], [facility] MCH (RBC) [Entitic mass] 30.6 pg Normal 27.0-33.0 [facility] Comment on above: Order Comment: No: D o not add to previous draw Performed By: #### 5 [id number] #### [facility] [address] [facility] [place] [address], [facility] MCHC (RBC) [Mass/Vol] 31.8 g/dL Low 32.0-35.0 [facility] Comment on above: Order Comment: No: D o not add to previous draw Performed By: #### 5 [id number] #### [facility] [address] [address], [facility] MCV (RBC) [Entitic vol] 96.1 fL Normal 82.0-98.0 [facility] Comment on above: Order Comment: No: D o not add to previous draw Performed By: #### 5 [id number] #### [facility] [address] [facility] [address], [facility] Nucleated RBC/100 WBC (Bld) [Ratio] 0 % Normal 0-0 [facility] Comment on above: Order Comment: No: D o not add to previous draw Performed By: #### 5 [id number] #### [facility] [address] [place] [address], [facility] PLAT CNT 215 10*3/uL Normal 150-400 [facility] Comment on above: Order Comment: No: D o not add to previous draw Performed By: #### 5 [id number] #### [facility] [address] [place] [address], [facility] RBC (Bld) [#/Vol] 4.38 10*6/uL Normal 3.80-5.00 [facility] Comment on above: Order Comment: No: D o not add to previous draw Performed By: #### 5 [id number] #### [facility] [address] WBC (Bld) [#/Vol] 8.75 10*3/uL Normal 4.00-10.60 [facility] Comment on above: Order Comment: No: D o not add to previous draw Performed By: #### 5 [id number] #### [facility] [address] Cardiovascular Lab Reporton 01-30-2019 Cardiovascular Lab Report [facility] Patient Name: Afia Gill [facility] Kassy MR #: [id number] Department of Physician: Raman Gomez M.D. Division of Service Date: 01/29/2019 Cardiology Birthdate: 1950 Adult Cardiovascular Room #: 3AB [id number] [facility] [address] [place] [address] Cardiovascular Laboratory Report INDICATION: The patient is a 68-year-old woman, who was evaluated recently in Cardiology Clinic because of new onset systolic heart failure and nonsustained ventricular tachycardia on Holter monitoring. She has history of chronic atrial fibrillation and maintained on anticoagulation. 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 She was referred for cardiac catheterization for investigation of her cardiac disease. PROCEDURE: 1. Access into right internal jugular vein under ultrasound guidance. 2. Right heart catheterization. 3. Left heart catheterization. 4. Bilateral selective coronary angiography. 5. Left ventriculography. 6. Access into the right radial artery under ultrasound guidance. METHOD: The procedure was explained to the patient with risks and benefits. She signed informed consent. She was brought to irrigation laborer in a fasting state. The right neck area was prepped and draped in usual fashion. Using ultrasound guidance and micropuncture technique, the internal jugular vein was accessed. A 6-Belizean x 11 cm sheath was placed. A 6-Belizean Caldera catheter was used for right heart catheterization with measurement of pressures and calculation of cardiac output using the estimated Nader method. The Caldera catheter was removed. Using ultrasound guidance and micropuncture technique, the right radial artery was accessed. A 6-Belizean x 11 cm Hydrophilic sheath was advanced. Verapamil was given through the sheath and a bolus of bivalirudin was given intravenously as the patient has prior history of heparin-induced thrombocytopenia. Note that, the care was taken to avoid any use of heparin during the procedure. Bilateral selective coronary angiography was then performed using 6-Belizean JL3.5 and JR5 diagnostic catheters. Catheters were removed. A 6-Belizean angled pigtail catheter was advanced over the wire across the aortic valve and used to perform left heart catheterization with measurement of pressures. Left ventriculography was performed in the right anterior oblique view using power injection of contrast. Pullback across the aortic valve was performed with measurement of pressures. Catheter was removed. Procedure was concluded. The radial sheath was removed and a TR band was applied for hemostasis. The access sheath in the right internal jugular vein was removed and manual compression applied for hemostasis. She tolerated the procedure well. She was transferred to the cardiovascular recovery area. She will be admitted for management of her decompensated heart failure. TOTAL FLUORO TIME: 4.47 minutes. TOTAL AIR KARMA: 723 mGy. TOTAL CONTRAST VOLUME: 60 mL. HEMODYNAMICS: RA 18, RV 72/9, 19, PA 73/26, mean 45. Pulmonary capillary wedge pressure is 32, AO 140/82, mean 106, LV 147/14, 28. Cardiac output 5.29, cardiac index 2.1. PA sat 53%. AO sat 87%. CORONARY ANGIOGRAPHY: This is a right dominant circulation. Left main: This arises from left coronary cusp. It bifurcates into left anterior descending and circumflex vessels. Left main is angiographically normal. Left anterior descending: This is angiographically normal. Circumflex vessel: This is angiographically normal. Right coronary artery: This arises from the right coronary cusp. It is a large and dominant vessel. It is angiographically normal. Left ventriculography: This showed evidence of diffuse hypokinesis with an estimated ejection fraction of 30%. There was evidence of mild to moderate mitral regurgitation. SUMMARY OF FINDINGS: 1. Normal coronary angiogram. 2. Diffuse global hypokinesis of the left ventricle with 30% left ventricular ejection fraction. 3. Uqcd-ui-jxdbtlkj mitral regurgitation. 4. Severely elevated filling pressures. 5. Severe pulmonary hypertension. 6. Reduced cardiac output and cardiac index. 7. Uncontrolled systemic hypertension. RECOMMENDATIONS: The patient will be admitted for management of her decompensated heart failure with diuresis, addition of YUE inhibitor therapy, and control of her afterload. Electronically Signed by: Raman Gomez M.D. 02/01/2019 12:22 P Raman Gomez M.D. Date Dict: 01/29/2019/11:30 Kassy/Raman Gomez M.D. Date Trans: 01/30/2019 07:50 Kassy/ivan [id number] cc: Yahir Brothers M.D. [address] [address] Yahir Mijares M.D. [address] [place] [address] Normal [facility] MAGNESIUM BLOODon 01-30-2019 Magnesium [Mass/Vol] 2.2 mg/dL Normal 1.9-2.7 [facility] Comment on above: Order Comment: No: D o not add to previous draw Performed By: #### 0 0071 #### [facility] [address] [place] [address], [facility] Magnesium [Mass/Vol] 2.2 mg/dL Normal 1.9-2.7 [facility] Comment on above: Order Comment: No: D o not add to previous draw Performed By: #### 5 [id number] #### [facility] [address] [place] [address], [facility] POC GLUCOSE LABon 01-30-2019 Glucose [Mass/Vol] 107 mg/dL High 70-100 [facility] Comment on above: Performed By: #### 5 6101 #### [facility] [address] [place] [address], [place] Glucose [Mass/Vol] 125 mg/dL High 70-100 [facility] Comment on above: Performed By: #### 5 6101 #### [facility] [address] [place] [address], [place] Glucose [Mass/Vol] 137 mg/dL High 70-100 [facility] Comment on above: Performed By: #### 5 6101 #### [facility] [address] [place] [address], [facility] Glucose [Mass/Vol] 114 mg/dL High 70-100 [facility] Comment on above: Performed By: #### 5 [id number] #### [facility] [address] [place] [address], [facility] PROTHROMBIN TIMEon 9 INR Coag (PPP) [Relative time] 1.23 {INR} High 0.91-1.16 [facility] Comment on above: Order Comment: No: D o not add to previous draw Result Comment: ACCC P RECOMMENDED INR FOR WARFARIN THERAPY ------ ------- CONDITION INR PROPHYLAXIS OF VENOUS THROMBOSIS 2-3 (HIGH-RISK SURGERY) TREATMENT OF VENOUS THROMBOSIS 2-3 TREATMENT OF PULMONARY EMBOLISM 2-3 PREVENTION OF SYSTEMIC EMBOLISM: 2-3 ACUTE MYOCARDIAL INFARCTION TISSUE HEART VALVES VALVULAR HEART DISEASE ATRIAL FIBRILLATION RECURRENT SYSTEMIC EMBOLISM MECHANICAL HEART VALVE 2.5-3.5 FROM: ORAL ANTICOAGULANTS. MECHANISM OF ACTION, CLINICAL EFFECTIVENESS, AND OPTIMAL THERAPEUTIC RANGE. CHEST 1995;108:231S-246S. Performed By: #### 5 [id number] #### [facility] [address] PT Coag (PPP) [Time] 15.5 s High 12.3-14.8 [facility] Comment on above: Order Comment: No: D o not add to previous draw Result Comment: ALL RESULTS MUST BE INTERPRETED WITH RESPECT TO BLOOD DRAWING ARTIFACT OR DILUTION ERROR OF ANTICOAGULANT AT THE TIME OF SAMPLING. Performed By: #### 5 [id number] #### [facility] [address] [facility] [address] TSH3on 01-30-2019 TSH 3RD GENERATION 1.24 uIU/mL Normal 0.34-5.60 [facility] Comment on above: Order Comment: No: D o not add to previous draw Performed By: #### 5 [id number] #### [facility] [address] [facility]. [address] CBC COMPLETE BLOOD COUNTon 0 01-29-2019 Erythrocyte distribution width (RBC) [Ratio] 14.7 % Normal 11.5-15.0 [facility] Comment on above: Order Comment: No: D o not add to previous draw Performed By: #### 5 0608 #### [facility] [address] Hematocrit (Bld) [Volume fraction] 43.4 % Normal 36.0-45.0 [facility] Comment on above: Order Comment: No: D o not add to previous draw Performed By: #### 5 0608 #### [facility] [address] Hemoglobin (Bld) [Mass/Vol] 13.8 g/dL Normal 12.0-15.0 [facility] Comment on above: Order Comment: No: D o not add to previous draw Performed By: #### 5 0608 #### [facility] [address] [place] [address], [facility] MCH (RBC) [Entitic mass] 30.3 pg Normal 27.0-33.0 [facility] Comment on above: Order Comment: No: D o not add to previous draw Performed By: #### 5 0608 #### [facility] [address] [place] [address], [facility] MCHC (RBC) [Mass/Vol] 31.8 g/dL Low 32.0-35.0 [facility] Comment on above: Order Comment: No: D o not add to previous draw Performed By: #### 5 0608 #### [facility] [address] [facility] [place] [id number], [facility] MCV (RBC) [Entitic vol] 95.2 fL Normal 82.0-98.0 [facility] Comment on above: Order Comment: No: D o not add to previous draw Performed By: #### 5 0608 #### [facility] [address] [facility] [place] [place] [address], [facility] Nucleated RBC/100 WBC (Bld) [Ratio] 0 % Normal 0-0 [facility] Comment on above: Order Comment: No: D o not add to previous draw Performed By: #### 5 0608 #### [facility] [address] [facility] [place] [address], [facility] PLAT CNT 240 10*3/uL Normal 150-400 [facility] Comment on above: Order Comment: No: D o not add to previous draw Performed By: #### 5 0608 #### [facility] [address] [place] [address], [facility] RBC (Bld) [#/Vol] 4.56 10*6/uL Normal 3.80-5.00 [facility] Comment on above: Order Comment: No: D o not add to previous draw Performed By: #### 5 0608 #### [facility] [address] [place] [address], [facility] WBC (Bld) [#/Vol] 9.28 10*3/uL Normal 4.00-10.60 [facility] Comment on above: Order Comment: No: D o not add to previous draw Performed By: #### 5 0608 #### [facility] [address] [place] [address], [facility] COMP METABOLIC PANELon 01-29 Albumin [Mass/Vol] 4.1 g/dL Normal 3.5-5.7 [facility] Comment on above: Order Comment: No: D o not add to previous draw Performed By: #### 1 0070, 71330, 73880 #### [facility] [address] [place] [address], [facility] ALKALINE PHOSPH 50 IU/L Normal 34-104 [facility] Comment on above: Order Comment: No: D o not add to previous draw Performed By: #### 1 0070, 13062, 79896 #### [facility] [address] [place] [id number], [facility] ALT [Catalytic activity/Vol] 14 U/L Normal 7-52 [facility] Comment on above: Order Comment: No: D o not add to previous draw Performed By: #### 1 0070, 65639, 07345 #### [facility] [address] [place] [id number], [place] AST [Catalytic activity/Vol] 15 U/L Normal 13-39 [facility] Comment on above: Order Comment: No: D o not add to previous draw Performed By: #### 1 0070, 37888, 09386 #### [facility] [address] [place] [address], [facility] Bilirubin [Mass/Vol] 0.8 mg/dL Normal 0.3-1.0 [facility] Comment on above: Order Comment: No: D o not add to previous draw Performed By: #### 1 0070, 99533, 20572 #### [facility] [address] [place] [address], [place] Calcium [Mass/Vol] 9.6 mg/dL Normal 8.6-10.3 [facility] Comment on above: Order Comment: No: D o not add to previous draw Performed By: #### 1 0070, 72285, 41774 #### [facility] [address] [place] [address], [place] Chloride [Moles/Vol] 103 mmol/L Normal 98-107 [facility] Comment on above: Order Comment: No: D o not add to previous draw Performed By: #### 1 0, 93183, 19373 #### [facility] [address] [place] [address], [place] CO2 [Moles/Vol] 30 mmol/L Normal 21-31 [facility] Comment on above: Order Comment: No: D o not add to previous draw Performed By: #### 1 0, 66415, 00581 #### [facility] [address] [place] [address], [place] Creatinine [Mass/Vol] 0.71 mg/dL Normal 0.60-1.20 [facility] Comment on above: Order Comment: No: D o not add to previous draw Performed By: #### 1 0070, 14825, 17690 #### [facility] [address] [place] [address], [place] GFR/1.73 sq M predicted among blacks MDRD (S/P/Bld) [Vol rate/Area] mL/min/{1.73_m2} Normal >60 [facility] Comment on above: Order Comment: No: D o not add to previous draw Performed By: #### 1 0, 77167, 22193 #### [facility] [address] [place] [address], [place] GFR/1.73 sq M predicted among non-blacks MDRD (S/P/Bld) [Vol rate/Area] mL/min/{1.73_m2} Normal >60 [facility] Comment on above: Order Comment: No: D o not add to previous draw Performed By: #### 1 0, , 06619 #### [facility] [address] [place] [address], [place] Glucose [Mass/Vol] 116 mg/dL High 70-100 [facility] Comment on above: Order Comment: No: D o not add to previous draw Performed By: #### 1 0, , 67923 #### [facility] [address] [place] [address], [place] Potassium [Moles/Vol] 3.9 mmol/L Normal 3.5-5.1 [facility] Comment on above: Order Comment: No: D o not add to previous draw Performed By: #### 1 0, , 84569 #### [facility] [address] [place] [address], [place] Protein [Mass/Vol] 7.6 g/dL Normal 6.0-8.3 [facility] Comment on above: Order Comment: No: D o not add to previous draw Performed By: #### 1 0, , 37575 #### [facility] [address] [place] [address], [place] Sodium [Moles/Vol] 140 mmol/L Normal 136-145 [facility] Comment on above: Order Comment: No: D o not add to previous draw Performed By: #### 1 0, , 10997 #### [facility] [address] [place] [address], [facility] Urea nitrogen [Mass/Vol] 18 mg/dL Normal 7-25 [facility] Comment on above: Order Comment: No: D o not add to previous draw Performed By: #### 1 0070, 32312, 42805 #### [facility] [address] [place] [address], [facility] HEMOGLOBIN A1Con 01-29-2019 HbA1c (Bld) [Mass fraction] 6.1 % High 4.0-6.0 [facility] Comment on above: Order Comment: Yes: Add to Previous draw if able Performed By: #### 5 6101 #### [facility] [address] [place] [address], [facility] HbA1c (Bld) [Mass fraction] 128 mg/dL High 70-126 [facility] Comment on above: Order Comment: Yes: Add to Previous draw if able Performed By: #### 5 6101 #### [facility] [address] [place] [address], [facility] LIPID PROFILEon 01-29-2019 Cholesterol [Mass/Vol] 130 mg/dL Normal 120-200 [facility] Comment on above: Result Comment: CHOL ESTEROL REFERENCE RANGE: 20 YEARS AND OLDER CARDIOVASCULAR RISK Less than 200 mg/dl Low Risk 200 to 239 mg/dl Borderline Risk 240 mg/dl and greater High Risk Performed By: #### 1 0, 55781, 92294 #### [facility] [address] [place] [address], [facility] Cholesterol in HDL [Mass/Vol] 31 mg/dL Normal 23-92 [facility] Comment on above: Result Comment: Slig ht variation in normal range could be due to gender and/or age. HDL CHOLESTEROL REFERENCE RANGE: 20 years and older Cardiovascular Risk > or =60 mg/dL Desirable 40 TO 59 mg/dL Low Risk <40 mg/dL High Risk Performed By: #### 1 0070, 91179, 97875 #### [facility] [address] [place] [address], [facility] Cholesterol in LDL [Mass/Vol] 67 mg/dL Normal 0-130 [facility] Comment on above: Result Comment: LDL IS A CALCULATION LDL IS ONLY VALID IF THE TRIG IS LESS THAN 400. Performed By: #### 1 0, 27452, 16412 #### [facility] [address] [place] [address], [facility] Cholesterol.total/C holesterol in HDL [Mass ratio] 4.2 {ratio} Normal .0-4.5 [facility] Comment on above: Performed By: #### 1 0, , 61957 #### [facility] [address] [place] [address], [facility] NON-HDL CHOLESTEROL 99 mg/dL Normal [facility] Comment on above: Performed By: #### 1 0, , 63574 #### [facility] [address] [place] [address], [facility] Triglyceride [Mass/Vol] 158 mg/dL High 40-149 [facility] Comment on above: Result Comment: TRIG LYCERIDE REFERENCE RANGE: 20 YEARS AND OLDER CARDIOVASCULAR RISK LESS THAN 150 mg/dl LOW RISK 150 TO 199 mg/dl BORDERLINE RISK 200 mg/dl AND GREATER HIGH RISK Performed By: #### 1 0, 73186, 50334 #### [facility] [address] [place] [address], [facility] VLDL CHOL 32 mg/dL Normal 0-40 [facility] Comment on above: Performed By: #### 1 0, 03879, 87475 #### [facility] [address] [place] [address], [facility] MAGNESIUM BLOODon 01-29-2019 Magnesium [Mass/Vol] 2.2 mg/dL Normal 1.9-2.7 [facility] Comment on above: Order Comment: No: D o not add to previous draw Performed By: #### 1 0, 23636, 96725 #### [facility] [address] [place] [address], [facility] POC GLUCOSE LABon 01-29-2019 Glucose [Mass/Vol] 102 mg/dL High 70-100 [facility] Comment on above: Performed By: #### 8 5499 #### [facility] [address] [place] [address], [facility] Glucose [Mass/Vol] 131 mg/dL High 70-100 [facility] Comment on above: Performed By: #### 8 5499 #### [facility] [address] [facility] [place] [address], [facility] PROTHROMBIN TIMEon 9 INR Coag (PPP) [Relative time] 1.39 {INR} High 0.91-1.16 [facility] Comment on above: Order Comment: Yes: Add to Previous draw if able Result Comment: ACCC P RECOMMENDED INR FOR WARFARIN THERAPY ------ ------- CONDITION INR PROPHYLAXIS OF VENOUS THROMBOSIS 2-3 (HIGH-RISK SURGERY) TREATMENT OF VENOUS THROMBOSIS 2-3 TREATMENT OF PULMONARY EMBOLISM 2-3 PREVENTION OF SYSTEMIC EMBOLISM: 2-3 ACUTE MYOCARDIAL INFARCTION TISSUE HEART VALVES VALVULAR HEART DISEASE ATRIAL FIBRILLATION RECURRENT SYSTEMIC EMBOLISM MECHANICAL HEART VALVE 2.5-3.5 FROM: ORAL ANTICOAGULANTS. MECHANISM OF ACTION, CLINICAL EFFECTIVENESS, AND OPTIMAL THERAPEUTIC RANGE. CHEST 1995;108:231S-246S. Performed By: #### 5 6101 #### [facility] [address] [place] [address], [facility] PT Coag (PPP) [Time] 17.1 s High 12.3-14.8 [facility] Comment on above: Order Comment: Yes: Add to Previous draw if able Result Comment: ALL RESULTS MUST BE INTERPRETED WITH RESPECT TO BLOOD DRAWING ARTIFACT OR DILUTION ERROR OF ANTICOAGULANT AT THE TIME OF SAMPLING. Performed By: #### 5 6101 #### [facility] [address] [place] [address], [facility] C[facility] BASIC METABOLIC PANELon 04-0 -2018 Calcium [Mass/Vol] 10.1 mg/dL Normal 8.6-10.3 [facility] Comment on above: Performed By: #### 0 [id number] #### [facility] [address] [place] [address], [facility] Chloride [Moles/Vol] 100 mmol/L Normal 98-107 [facility] Comment on above: Performed By: #### 0 [id number] #### [facility] [address] [place] [address], [place] CO2 [Moles/Vol] 30 mmol/L Normal 21-31 [facility] Comment on above: Performed By: #### 0 [id number] #### [facility] [address] [place] [address], [facility] Creatinine [Mass/Vol] 0.71 mg/dL Normal 0.60-1.20 [facility] Comment on above: Performed By: #### 0 [id number] #### [facility] [address] [place] [id number], [place] GFR/1.73 sq M predicted among blacks MDRD (S/P/Bld) [Vol rate/Area] mL/min/{1.73_m2} Normal >60 [facility] Comment on above: Performed By: #### 0 [id number] #### [facility] [address] [place] [address], [place] GFR/1.73 sq M predicted among non-blacks MDRD (S/P/Bld) [Vol rate/Area] mL/min/{1.73_m2} Normal >60 [facility] Comment on above: Performed By: #### 0 [id number] #### [facility] [address] [place] [address], [facility] Glucose [Mass/Vol] 93 mg/dL Normal 70-100 [facility] Comment on above: Performed By: #### 0 [id number] #### [facility] [address] [place] [address], [facility] Potassium [Moles/Vol] 3.7 mmol/L Normal 3.5-5.1 [facility] Comment on above: Performed By: #### 0 [id number] #### [facility] [address] [place] [address], [facility] Sodium [Moles/Vol] 139 mmol/L Normal 136-145 [facility] Comment on above: Performed By: #### 0 [id number] #### [facility] [address] [place] [address], [facility] Urea nitrogen [Mass/Vol] 16 mg/dL Normal 7-25 [facility] Comment on above: Performed By: #### 0 [id number] #### [facility] [address] [facility] CBC COMPLETE BLOOD COUNTon 0 - Erythrocyte distribution width (RBC) [Ratio] 14.9 % Normal 11.5-15.0 [facility] Comment on above: Performed By: #### [id number] #### [facility] [address] [place] [address], [facility] Hematocrit (Bld) [Volume fraction] 43.0 % Normal 36.0-45.0 [facility] Comment on above: Performed By: #### 5 [id number] #### [facility] [address] [place] [address], [facility] Hemoglobin (Bld) [Mass/Vol] 13.7 g/dL Normal 12.0-15.0 [facility] Comment on above: Performed By: #### 5 [id number] #### [facility] [address] [facility]. [address] MCH (RBC) [Entitic mass] 30.0 pg Normal 27.0-33.0 [facility] Comment on above: Performed By: #### 5 [id number] #### [facility] [address] [facility]. [address] MCHC (RBC) [Mass/Vol] 31.9 g/dL Low 32.0-35.0 [facility] Comment on above: Performed By: #### 5 [id number] #### [facility] [address] [place] [address], [facility] MCV (RBC) [Entitic vol] 94.3 fL Normal 82.0-98.0 [facility] Comment on above: Performed By: #### 5 [id number] #### [facility] [address] Nucleated RBC/100 WBC (Bld) [Ratio] 0 % Normal 0-0 [facility] Comment on above: Performed By: #### 5 [id number] #### [facility] [address] PLAT CNT 270 10*3/uL Normal 150-400 [facility] Comment on above: Performed By: #### 5 [id number] #### [facility] [address] RBC (Bld) [#/Vol] 4.56 10*6/uL Normal 3.80-5.00 [facility] Comment on above: Performed By: #### 5 [id number] #### [facility] [address] [place] [address], [facility] WBC (Bld) [#/Vol] 9.44 10*3/uL Normal 4.00-10.60 [facility] Comment on above: Performed By: #### 5 [id number] #### [facility] [address] [facility] [address], [facility] PROTHROMBIN TIMEon 9 INR Coag (PPP) [Relative time] 1.85 {INR} High 0.91-1.16 [facility] Comment on above: Result Comment: ACCC P RECOMMENDED INR FOR WARFARIN THERAPY ------ ------- CONDITION INR PROPHYLAXIS OF VENOUS THROMBOSIS 2-3 (HIGH-RISK SURGERY) TREATMENT OF VENOUS THROMBOSIS 2-3 TREATMENT OF PULMONARY EMBOLISM 2-3 PREVENTION OF SYSTEMIC EMBOLISM: 2-3 ACUTE MYOCARDIAL INFARCTION TISSUE HEART VALVES VALVULAR HEART DISEASE ATRIAL FIBRILLATION RECURRENT SYSTEMIC EMBOLISM MECHANICAL HEART VALVE 2.5-3.5 FROM: ORAL ANTICOAGULANTS. MECHANISM OF ACTION, CLINICAL EFFECTIVENESS, AND OPTIMAL THERAPEUTIC RANGE. CHEST 1995;108:231S-246S. Performed By: #### 5 [id number] #### [facility] [address] [facility] [address], [facility] PT Coag (PPP) [Time] 21.4 s High 12.3-14.8 [facility] Comment on above: Result Comment: ALL RESULTS MUST BE INTERPRETED WITH RESPECT TO BLOOD DRAWING ARTIFACT OR DILUTION ERROR OF ANTICOAGULANT AT THE TIME OF SAMPLING. Performed By: #### 5 [id number] #### [facility] [address] [facility] [place] [address], [facility] Encounters Encounter Date Encounter Type Care Provider Facility Start: 11-01-2023 End: 11-01-2023 ambulatory EBER JOSHUA [facility] Start: 10-31-2023 End: 10-31-2023 ambulatory YAHIR BROTHERS Not Available Start: 09-05-2023 End: 09-05-2023 ambulatory YAHIR BROTHERS Not Available Start: 07-07-2023 End: 07-10-2023 ambulatory YAHIR BROTHERS Not Available Start: 05-23-2023 End: 05-23-2023 ambulatory RAMAN GOMEZ [facility] Start: 03-02-2023 End: 03-03-[address] DOCTOR LOYOLA Facility:[facility] Start: 02-19-2023 End: 02-19-2023 ambulatory JESSICA PRECIADO [facility] Start: 12-27-2022 End: 12-28-[address] YAHIR BROTHERS Facility:[facility] Start: 05-17-2022 End: 05-18-[address] YAHIR BROTHERS Facility:[facility] Start: 01-29-2019 End: 02-02-2019 Evaluation and management of inpatient YAHIR BROTHERS Facility:[facility] [[email or web address] Procedures Date Procedure Procedure Detail Performing Clinician Start: 01-29-2019 FLUOROSCOPY OF LEFT HEART USING OTHER CONTRAST RAMAN GOMEZ Start: 01-29-2019 FLUOROSCOPY OF MULTI PLE CORONARY ARTERIES USING OTH CONTRAST RAMAN GOMEZ Start: 01-29-2019 MEASURE CARDIAC SAMP L \T\ PRESSURE, BILATERAL, PERC RAMAN V MOUKARBEL Payers Date Payer Category Payer Unknown [id number] 1957 Unknown [id number] 1950 Unknown [id number] [id number] 1950 Unknown [id number] 2.16.84 [id number] 1950 Unknown [id number] 2.16.84 [id number] 1950 Unknown [id number] 2.16.84 [id number] 1950 Unknown [id number] 2.16.84 [id number] 1952 Unknown [id number] 1950 Unknown [id number] 2.16.84 [id number] Medicare [id number] Progress note 11-01-2023 Note Date & Type Note Facility 11-01-2023 Note Patient here for 6 m o follow up permanent afib, chronic systolic heart failure, and hypertension. She was prescribed antibiotic yesterday by PCP for sinus infection. Having epistaxis and green/black stools. Made PCP aware of this yesterday. Says she was very sick around Yasmine but is feeling better. Review of Systems HENT: Positive for nosebleeds. Cardiovascular: Positive for dyspnea on exertion. Respiratory: Positive for cough and shortness of breath. Hematologic/Lymphatic: Bruises/bleeds easily. Neurological: Positive for focal weakness and weakness. All other systems reviewed and are negative. [facility] Progress note 11-01-2023 Note Date & Type Note Facility 11-01-2023 Note Cardiovascular Medic [facility] SUBJECTIVE Chief Complaint Patient presents with Atrial Fibrillation Congestive Heart Failure Afia Gill is a 73 y.o. female here for follow-up. HPI Hx: *Atrial fibrillation *NSVT *Systolic heart failure *Pulmonary embolism in 2004 status post left total knee arthroplasty. *Heparin-induced thrombocytopenia. *Pulmonary hypertension by echocardiogram. *Obstructive sleep apnea, on CPAP. *Status post [place] filter. *Morbid obesity. *Continuous oxygen. *Abnormal stress test - normal coronary angiogram 11/01/2023 She had some vomiting and cough back around yasmine time. She was also coughing up some black chunks . She also started having dark and green stools around this time. Vomiting has subsided but She saw her PCP yesterday who started her on an ABX for an URI. She has WHYTE along with LE edema, unchanged. Denies CP, orthopnea, palpitations, syncope. 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) History of pulmonary embolism Morbid obesity (CMS/HCC) Chronic systolic heart failure (CMS/HCC) Presence of IVC filter Recurrent falls Dependent on wheelchair Type 2 diabetes mellitus without complication (CMS/HCC) Calculus of kidney with calculus of ureter Chronic pain Chronic renal failure syndrome Congestive heart failure ([facility]/HCC) Constipation Degeneration of cervical intervertebral disc Dependence on continuous supplemental oxygen Diffuse cystic mastopathy Non-traumatic rhabdomyolysis Nonsustained ventricular tachycardia ([facility]) Leukocytosis Hypoxia Hypertensive disorder Hypercoagulable state ([facility]/HCC) History of DVT (deep vein thrombosis) Disorder of bladder Elevated liver enzymes Status post hysterectomy Restless legs syndrome Pure hypercholesterolemia Pulmonary embolism ([facility]) Primary localized osteoarthrosis of shoulder region Osteoarthritis Obstructive sleep apnea syndrome Acute coronary thrombosis not resulting in myocardial infarction ([facility]) Acute embolism and thrombosis of unspecified deep veins of unspecified lower extremity ([facility]/HCC) Diabetic renal disease ([facility]) Disorder of kidney and ureter, unspecified Urinary tract infection, site not specified Encounter for other specified aftercare Generalized anxiety disorder Hyperlipidemia Hypoventilation associated with obesity syndrome ([facility]) Lymphedema, not elsewhere classified Insomnia Major depressive disorder, single episode, unspecified Muscle weakness (generalized) Stage 3a chronic kidney disease ([facility]) Rheumatoid arthritis, unspecified ([facility]) Other abnormalities of breathing Osteoarthritis of right ankle and foot Stiffness of unspecified shoulder, not elsewhere classified Unspecified Escherichia coli (E. coli) as the cause of diseases classified elsewhere Ataxia, unspecified Chronic atrial fibrillation ([facility]) Peripheral vascular disease, unspecified ([facility]) Essential (primary) hypertension Unspecified atrial fibrillation ([facility]) Chronic systolic CHF (congestive heart failure), NYHA class 4 ([facility]) Other chronic pain Past Medical History: Diagnosis Date Atrial fibrillation ([facility]) CHF (congestive heart failure) ([facility] Hypertension Pulmonary embolism ([facility]) Family History Problem Relation Name Age of Onset Heart attack Father Diabetes Father Hypertension Father Coronary artery disease Father Rheum arthritis Father Social History Tobacco Use Smoking status: Former Types: Cigarettes Smokeless tobacco: Never Allergies Allergen Reactions Bleach (Sodium Hypochlorite) Estrogens, Conjugated Heparin (Porcine) Heparin Sodium, Porcine Unknown Penicillin Penicillins Pregabalin ROS HENT: Positive for nosebleeds. Cardiovascular: Positive for dyspnea on exertion. Respiratory: Positive for cough and shortness of breath. Hematologic/Lymphatic: Bruises/bleeds easily. Neurological: Positive for focal weakness and weakness. All other systems reviewed and are negative. OBJECTIVE Visit Vitals BP 140/78 (BP Location: Left arm, Patient Position: Sitting) Pulse 92 Ht 1.575 m (5' 2 ) Wt (!) 138 kg (304 lb) SpO2 96% BMI 55.60 kg/m??? Smoking Status Former BSA 2.46 m??? Medications: Current Outpatient Medications: ascorbic acid (Vitamin C) 1,000 mg tablet, Take 1,000 mg by mouth in the morning., Disp: , Rfl: aspirin 81 mg EC tablet, in the morning., Disp: , Rfl: digoxin (Lanoxin) 250 MCG tab;et, Take 1 tablet by mouth in the morning., Disp: , Rfl: DULoxetine (Cymbalta) [address] capsule, duloxetine 60 mg capsule,delayed release TAKE 1 CAPSULE BY MOUTH ONCE DAILY, Disp: , Rfl (more content not included)... [facility] note 05-23-2023 Note Date & Type Note Facility 05-23-2023 Note [place] [facility] Subjective Aifa Gill is a 72 y.o. year old female patient being seen for 3 mo follow up echo and labs done per Jessica Preciado CNP. She denies chest pain and bleeding on warfarin. 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) History of pulmonary embolism Morbid obesity (CMS/HCC) Chronic systolic heart failure (CMS/HCC) Presence of IVC filter Recurrent falls Dependent on wheelchair Type 2 diabetes mellitus without complication (CMS/HCC) Calculus of kidney with calculus of ureter Chronic pain Chronic renal failure syndrome Congestive heart failure (CMS/HCC) Constipation Degeneration of cervical intervertebral disc Dependence on continuous supplemental oxygen Diffuse cystic mastopathy Non-traumatic rhabdomyolysis Nonsustained ventricular tachycardia (CMS/HCC) Leukocytosis Hypoxia Hypertensive disorder Hypercoagulable state (CMS/HCC) History of DVT (deep vein thrombosis) Disorder of bladder Elevated liver enzymes Status post hysterectomy Restless legs syndrome Pure hypercholesterolemia Pulmonary embolism (CMS/HCC) Primary localized osteoarthrosis of shoulder region Osteoarthritis Obstructive sleep apnea syndrome Acute coronary thrombosis not resulting in myocardial infarction (CMS/HCC) Acute embolism and thrombosis of unspecified deep veins of unspecified lower extremity (CMS/HCC) Diabetic renal disease (CMS/HCC) Disorder of kidney and ureter, unspecified Urinary tract infection, site not specified Encounter for other specified aftercare Generalized anxiety disorder Hyperlipidemia Hypoventilation associated with obesity syndrome (CMS/HCC) Lymphedema, not elsewhere classified Insomnia Major depressive disorder, single episode, unspecified Muscle weakness (generalized) Stage 3a chronic kidney disease (CMS/HCC) Rheumatoid arthritis, unspecified (CMS/HCC) Other abnormalities of breathing Osteoarthritis of right ankle and foot Stiffness of unspecified shoulder, not elsewhere classified Unspecified Escherichia coli (E. coli) as the cause of diseases classified elsewhere Ataxia, unspecified Chronic atrial fibrillation (CMS/HCC) Peripheral vascular disease, unspecified (CMS/HCC) Essential (primary) hypertension Unspecified atrial fibrillation (CMS/HCC) Chronic systolic CHF (congestive heart failure), NYHA class 4 (CMS/HCC) Other chronic pain Family History Problem Relation Name Age of Onset Heart attack Father Diabetes Father Hypertension Father Coronary artery disease Father Rheum arthritis Father Social History Tobacco Use Smoking status: Former Types: Cigarettes Smokeless tobacco: Never HPI Visit of 01/22/2019: Afia is referred from Dr. Mijares's clinic due to abnormal stress test. She is a 68-year-old woman with complex medical history as detailed below. Most notably she has history of prior pulmonary embolism and she has chronic atrial fibrillation and is maintained chronically on anticoagulation therapy with Coumadin. She is now on oxygen therapy. She has morbid obesity. She uses a wheelchair to ambulate. She has been having significant shortness of breath on exertion [going to the bathroom]. She was recently investigated and by a stress test that showed evidence of a reduced left ventricular systolic function with an ejection fraction of 36 percent. There was dyskinesia of the apex. There was minimally reversible perfusion defect of the anterior septal wall and apex. Holter monitor showed evidence of nonsustained ventricular tachycardia. An echocardiogram was nondiagnostic. Her prior history is significant for: Pulmonary embolism in 2005 status post left total knee arthroplasty. Heparin-induced thrombocytopenia. Pulmonary hypertension by echocardiogram. Obstructive sleep apnea, on CPAP. Status post [place] filter. Morbid obesity. She is currently on oxygen since December 20, 2018. Holter done to investigate palpitations showed atrial fibrillation with NSVT. Stress test 01/13/2019;1. Fixed versus minimally reversible perfusion defect of the anterior septal wall and apex. 2. Marked cardiomegaly and markedly low ejection fraction, 36%. 3. Dyskinesia of the apex with otherwise global moderate hypokinesis. Echocardiogram 12/18/2018: non diagnostic due to poor acoustic windows. Update 10/09/2019: She is seen in follow-up. After last visit with me in January 2019 I proceeded with cardiac catheterization that showed normal coronary angiogram and reduced left ventricular systolic function with an EF of 30 percent. She had mild to moderate mitral regurgitation. She had severely elevated filling pressures. She (more content not included)... [facility] Progress note 02-19-2023 Note Date & Type Note Facility 02-19-2023 Note Pt is here today for a 6 month follow up Review of Systems HENT: Positive for tinnitus. Eyes: Positive for vision loss in left eye and vision loss in right eye. Musculoskeletal: Positive for arthritis, back pain, joint pain, joint swelling, muscle cramps and muscle weakness. All other systems reviewed and are negative. [facility] Progress note 02-19-2023 Note Date & Type Note Facility 02-19-2023 Note Cardiology Clinic No te Subjective Afia Gill is a 72 y.o. year old female patient with past medical history of permanent on Warfarin, PE, and NICM being seen in follow-up. She is in a wheelchair. She reports she is doing well without concerns from a cardiac standpoint. 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) History of pulmonary embolism Morbid obesity (CMS/HCC) Chronic systolic heart failure (CMS/HCC) Presence of IVC filter Recurrent falls Dependent on wheelchair Type 2 diabetes mellitus without complication (CMS/HCC) Calculus of kidney with calculus of ureter Chronic pain Chronic renal failure syndrome Congestive heart failure (CMS/HCC) Constipation Degeneration of cervical intervertebral disc Dependence on continuous supplemental oxygen Diffuse cystic mastopathy Non-traumatic rhabdomyolysis Nonsustained ventricular tachycardia (CMS/HCC) Leukocytosis Hypoxia Hypertensive disorder Hypercoagulable state (CMS/HCC) History of DVT (deep vein thrombosis) Disorder of bladder Elevated liver enzymes Status post hysterectomy Restless legs syndrome Pure hypercholesterolemia Pulmonary embolism (CMS/HCC) Primary localized osteoarthrosis of shoulder region Osteoarthritis Obstructive sleep apnea syndrome Family History Problem Relation Name Age of Onset Heart attack Father Diabetes Father Hypertension Father Coronary artery disease Father Rheum arthritis Father Social History Tobacco Use Smoking status: Former Types: Cigarettes Smokeless tobacco: Never HPI 01/22/2019 Aifa is referred from Dr. Mijares's clinic due to abnormal stress test. She is a 68-year-old woman with complex medical history as detailed below. Most notably she has history of prior pulmonary embolism and she has chronic atrial fibrillation and is maintained chronically on anticoagulation therapy with Coumadin. She is now on oxygen therapy. She has morbid obesity. She uses a wheelchair to ambulate. She has been having significant shortness of breath on exertion [going to the bathroom]. She was recently investigated and by a stress test that showed evidence of a reduced left ventricular systolic function with an ejection fraction of 36 percent. There was dyskinesia of the apex. There was minimally reversible perfusion defect of the anterior septal wall and apex. Holter monitor showed evidence of nonsustained ventricular tachycardia. An echocardiogram was nondiagnostic. Update: 06/28/2021 Her LV systolic function has recovered. Her blood pressure is well controlled. Her heart rate is low. I will reduce metoprolol succinate to 100 mg daily. I discussed with her that the recent blood testing shows severely elevated TSH. She is likely hypothyroid and this is commensurate with her clinical symptoms. I asked her to discuss with Dr. Yahir Brothers regarding adjustment of her thyroid replacement. She has prior history of pulmonary embolism at the time of knee surgery. She has been on oral anticoagulation with warfarin for long time for both that and a chronic atrial fibrillation. Visit of 01/22/2019: Afia is referred from Dr. Mijares's clinic due to abnormal stress test. She is a 68-year-old woman with complex medical history as detailed below. Most notably she has history of prior pulmonary embolism and she has chronic atrial fibrillation and is maintained chronically on anticoagulation therapy with Coumadin. She is now on oxygen therapy. She has morbid obesity. She uses a wheelchair to ambulate. She has been having significant shortness of breath on exertion [going to the bathroom]. She was recently investigated and by a stress test that showed evidence of a reduced left ventricular systolic function with an ejection fraction of 36 percent. There was dyskinesia of the apex. There was minimally reversible perfusion defect of the anterior septal wall and apex. Holter monitor showed evidence of nonsustained ventricular tachycardia. An echocardiogram was nondiagnostic. Her prior history is significant for: Pulmonary embolism in 2005 status post left total knee arthroplasty. Heparin-induced thrombocytopenia. Pulmonary hypertension by echocardiogram. Obstructive sleep apnea, on CPAP. Status post [place] filter. Morbid obesity. She is currently on oxygen since December 20, 2018. Holter done to investigate palpitations showed atrial fibrillation with NSVT. Stress test 01/13/2019;1. Fixed versus minimally reversible perfusion defect of the anterior septal wall and apex. 2. Marked cardiomegaly and markedly low ejection fraction, 36%. 3. Dyskinesia of the apex with otherwise global moderate hypokinesis. Echocardiogram 2 (more content not included)... [facility] Summary Purpose Family History No Family History Records FoundNo Family History Records FoundNo Family History Records FoundNo Family History Records Found Advance Directives No Advanced Directives Records FoundNo Advanced Directives Records FoundNo Advanced Directives Records FoundNo Advanced Directives Records Found Hospital Course Note MR#: [id number] I [facility] Pt. Name: Afia Gill Admitted: 01/29/2019 Discharged: 02/02/2019 Date of : 1950 Physician: Lan Frost MD DISCHARGE SUMMARY PRIMARY DIAGNOSIS: New onset heart failure with reduced ejection fraction. SECONDARY DIAGNOSES: Morbid obesity, hypertension, deep venous thrombosis, on anticoagulation; INR subtherapeutic. HOSPITAL COURSE: The patient is a 68-year-old with past medical history significant for diet- controlled diabetes mellitus, atrial fib, on Coumadin; DVT/PE status post IVC filter, history of HIT, and obstructive sleep apnea, on CPAP. The patient presented to the hospital for right and left heart catheterization because of worsening shortness of breath for the several weeks and was started on home oxygen as well. The patient was found to have clean left-sided cardiac cath, but was having elevated right-sided pressures. The patient was admitted to the step-down floor for diuresis. Initially, the patient wa (more content not included)... Additional Source Comments INFORMATION SOURCE (unrecogn ized section and content) DATE CREATED AUTHOR 06/17/2019 [facility] DATE CREATED AUTHOR AUTHOR'S ORGANIZ ATION 03/03/2023 [facility] DATE CREATED AUTHOR AUTHOR'S ORGANIZ ATION 11/01/2023 [facility] EPIC DATE CREATED AUTHOR AUTHOR'S STEPHEN ATION 11/02/2023 [facility] FOR RECORDS PERTAINING TO PATIENTS WHO ARE OR HAVE BEEN ENROLLED IN A CHEMICAL DEPENDENCY/SUBSTANCEABUSE PROGRAM, SOME INFORMATION MAY BE OMITTED. This clinical summary was aggregated from multiple sources. Caution should be exercised in using it in the provision of clinical care. This summary normalizes information from multiple sources, and as a consequence, information in this document may materially change the coding, format and clinical context of patient data. In addition, data may be omitted in some cases. CLINICAL DECISIONS SHOULD BE BASED ON THE PRIMARY CLINICAL RECORDS. [facility] provides no warranty or guarantee of the accuracy or completeness of information in this document.
[2023-11-15 09:45] LABS: Chol HDL Ratio 4.6; Cholesterol 160 mg/dL (<=200); HDL Cholesterol 35 mg/dL (40-60); Triglycerides 115 mg/dL (<=150)
== END 2023-11-15 08:06 | disposition home or self-care (01) ==
LOC: LAB 08:08
PROVIDERS: PCP Internal Medicine; Visit Provider Nurse Practitioner Family
DX: E78.2 Mixed hyperlipidemia (principal)
CPT/HCPCS: 36415; 80061

== ENCOUNTER 2024-01-04 01:13 | Outpatient (REF) | payer MEDICARE, SELFPAY ==
--- OUTSIDE RECORDS SUMMARY | 2024-01-04 01:16 | XMS_ITS | CCD ---
Author Name Unknown Address [address] [facility] [address] [place] [address] Organization [facility] Care Team Providers Care Bioinformatics Research Technician Name Role Phone YAHIR BROTHERS Referring Unavailable YAHIR BROTHERS Primary Care Unavailable LAN FROST Attending Unavailable LAN FROST Admitting Unavailable NM Procedure Practitioner Unavailab le UNKNOWN, PROVIDER Surgeon Unavailable MISC, DR COELLO Admitting Unavailable MISC, DR COELLO Attending Unavailable ANDREA, DR GAO Primary Care Unavailable MISC, DR COELLO Consulting Unavailable ANDREA, DR GAO Admitting Unavailable ANDREA, DR GAO Attending Unavailable ANDREA, DR GAO Primary Care Unavailable ANDREA, DR GAO Consulting Unavailable ZIEBAMBER, DR YAYA Miller Consulting Unavailable ANDREA, DR GAO Admitting Unavailable ANDREA, DR GAO Attending Unavailable ANDREA, DR GAO Primary Care Unavailable ANDREA, DR GAO Consulting Unavailable [place], DR JEANETTE Armenta Consulting Unavailable RAMAN GOMEZ Attending Unavailable JESSICA PRECIADO Attending Unavailable EBER JOSHUA Attending Unavailable Yahir Brothers MD Primary Care Provider RAND CRAWFORD Attending Unavailable YAHIR BROTHERS Primary Care Unavailable KORINA OLIVER Admitting Unavailable DANIEL BIRMINGHAM Consulting Unavailable [facility], [facility] Consulting Unavailable YAYA KUMAR Consulting Unavailable DANAE BRITTON Attending Unavailable DANAE BRITTON Referring Unavailable YAHIR BROTHERS Primary Care Unavailable DANAE BRITTON Attending Unavailable DANAE BRITTON Referring Unavailable YAHIR BROTHERS Primary Care Unavailable RAND CRAWFORD Attending Unavailable RAND CRAWFORD Referring Unavailable YAHIR BROTHERS Primary Care Unavailable KRYSTEN RUIZ Attending Unavailable KRYSTEN RUIZ Referring Unavailable YAHIR BROTHERS Primary Care Unavailable KRYSTEN RUIZ Attending Unavailable KRYSTEN RUIZ Referring Unavailable ANDREA YAHIR B Primary Care Unavailable BARNHART, BIJAL U Attending Unavailable NIKKI BARNHARTEEM U Referring Unavailable ANDREA YAHIR B Primary Care Unavailable BARNHART, BIJAL U Attending Unavailable OBEY BIJAL U Referring Unavailable ANDREA YAHIR B Primary Care Unavailable COLIN KEITH Attending Unavailable COLIN KEITH Referring Unavailable ANDREA YAHIR B Primary Care Unavailable ANDREA YAHIR B Attending Unavailable ANDREA YAHIR B Attending Unavailable BROTHERS YAHIR B Attending Unavailable BROTHERS, YAHIR B Referring Unavailable BROTHERS, YAHIR B Primary Care Unavailable Allergies Allergy Classification Reported Allergen(s) Allergy Type Date of Onset Reaction(s) Facility (1 source) Estrogens Drug Allergy 9 [facility] Repository (1 source) heparin Drug Allergy 9 [facility] Repository (2 sources) Penicillins; Translations: [PENICILLINS] Drug allergy (disorder) 9 [facility] Repository (2 sources) pregabalin Drug Allergy 9 [facility] Repository (6 sources) Bleach (Sodium Hypochlorite); Translations: [Bleach (Sodium Hypochlorite)] Propensity to adverse reactions (disorder) 9 [facility] Repository (4 sources) Aztreonam; Translations: [ESTROGENS, CONJUGATED] Drug Allergy 9 [facility] Repository (1 source) heparin Drug Allergy [facility] Repository (5 sources) Penicillin; Translations: [PENICILLIN] Drug Allergy 9 [facility] Repository (1 source) Misc-ENV; Translations: [Misc-ENV] Propensity to adverse reactions (disorder) [facility] Repository (4 sources) heparin; Translations: [HEPARIN (PORCINE)] Drug Allergy 9 [facility] Repository (1 source) heparin; Translations: [HEPARIN SODIUM, PORCINE] Drug Allergy 1 [facility] Repository (4 sources) pregabalin; Translations: [PREGABALIN] Drug Allergy 9 [facility] Repository (1 source) Estrogens, Conjugated (SNF) Drug Allergy 9 [employer] (3 sources) Other; Translations: [OTHER] Propensity to adverse reactions 1 Rash [facility] Medications Completed/Discontinued Medications Medication Drug Class(es) Dates [...] genital organs; Translations: [FAM HX MALIG NEOPLSM OTH GENIT ORGN] Onset: 01-02-2023 Episodic Superficial injury; [...] disorders of nose and nasal sinuses; Translations: [OT SPEC D/O NOSE NASAL SINUSES] Onset: 05-17-2022 Episodic Pulmonary heart disease (2 sources) Personal history of pulmonary embolism; Translations: [Personal history of pulmonary embolism] Onset: 07-28-2022 Episodic Unclassified (1 source) Heparin-induced thrombocytopenia, unspecified; Translations: [Heparin-induced thrombocytopenia, unspecified] Onset: 05-23-2023 Results Test Name Value Interpretation Reference Range Facility CBC AND AUTO DIFFon 12-28-19 24 ABSOLUTE BASOPHIL 0.1 X10E9/L Normal 0.0-0.2 [facility] Comment on above: Performed By: #### U A #### [facility] ([id number]) [address] [place] [address] 57898 ABSOLUTE NEUTROPHIL 9.5 X10E9/L High 1.5-6.6 [facility] Comment on above: Performed By: #### U A #### [facility] ([id number]) [address] [place] [address] 22199 Basophils/100 WBC (Bld) 0.5 % Normal [facility] Comment on above: Performed By: #### U A #### [facility] ([id number]) [address] [place] [address] 86860 Eosinophils (Bld) [#/Vol] 0.8 10*3/uL High 0.0-0.4 [facility] Comment on above: Performed By: #### U A #### [facility] ([id number]) [address] [place] [address] 03813 Eosinophils/100 WBC (Bld) 5.8 % Normal [facility] Comment on above: Performed By: #### U A #### [facility] ([id number]) [address] [place] [address] 75789 Erythrocyte distribution width (RBC) [Ratio] 13.6 % Normal 11.5-15.0 [facility] Comment on above: Performed By: #### U A #### [facility] ([id number]) [address] [place] [address] 80656 Hematocrit (Bld) [Volume fraction] 35.5 % Normal 35-47 [facility] Comment on above: Performed By: #### U A #### [facility] ([id number]) [address] [place] [address] 78951 Hemoglobin (Bld) [Mass/Vol] 11.9 g/dL Normal 11.7-15.5 [facility] Comment on above: Performed By: #### U A #### [facility] ([id number]) [address] [place] [address] 84961 Lymphocytes (Bld) [#/Vol] 2.6 10*3/uL Normal 1.0-3.5 [facility] Comment on above: Performed By: #### U A #### [facility] ([id number]) [address] [place] [address] 55869 Lymphocytes/100 WBC (Bld) 19.1 % Normal [facility] Comment on above: Performed By: #### U A #### [facility] ([id number]) [address] [place] [address] 88482 MCH (RBC) [Entitic mass] 28.7 pg Normal 27-34 [facility] Comment on above: Performed By: #### U A #### [facility] ([id number]) [address] [place] [address] 82289 MCHC (RBC) [Mass/Vol] 33.4 g/dL Normal 32-36 [facility] Comment on above: Performed By: #### U A #### [facility] ([id number]) [address] [place] [address] 51887 MCV (RBC) [Entitic vol] 86 fL Normal 80-100 [facility] Comment on above: Performed By: #### U A #### [facility] ([id number]) [address] [place] [address] 84623 Monocytes (Bld) [#/Vol] 0.7 10*3/uL Normal 0-0.9 [facility] Comment on above: Performed By: #### U A #### [facility] ([id number]) [address] [place] [address] 13324 Monocytes/100 WBC (Bld) 5.3 % Normal [facility] Comment on above: Performed By: #### U A #### [facility] ([id number]) [address] [place] [address] 38372 Neutrophils/100 WBC (Bld) 69.3 % Normal [facility] Comment on above: Performed By: #### U A #### [facility] ([id number]) [address] [place] [address] 14490 Platelet mean volume (Bld) [Entitic vol] 8.7 fL Normal 7-12 [facility] Comment on above: Performed By: #### U A #### [facility] ([id number]) [address] [place] [address] 69167 Platelets (Bld) [#/Vol] 335 10*3/uL Normal 150-450 [facility] Comment on above: Performed By: #### U A #### [facility] ([id number]) [address] [place] [address] 39582 RBC COUNT 4.13 X10E12/L Normal 3.80-5.20 [facility] Comment on above: Performed By: #### U A #### [facility] ([id number]) [address] [place] [address] 36274 WBC (Bld) [#/Vol] 13.7 10*3/uL High 4.0-11.0 [facility] Comment on above: Performed By: #### U A #### [facility] ([id number]) [address] [place] [address] 83871 COMPREHENSIVE METABOLIC PANE Tyrone 12-28-2023 Albumin [Mass/Vol] 3.1 g/dL Low 3.2-5.3 [facility] Comment on above: Performed By: #### U A #### [facility] ([id number]) [address] [place] [address] 98966 ALP [Catalytic activity/Vol] 68 U/L Normal 39-130 [facility] Comment on above: Performed By: #### U A #### [facility] ([id number]) [address] [place] [address] [place] [address] ALT [Catalytic activity/Vol] 21 U/L Normal 0-31 [facility] Comment on above: Performed By: #### U A #### [facility] ([id number]) [address] [place] [address] [place] [address] Anion gap [Moles/Vol] 10 mmol/L Normal 5-15 [facility] Comment on above: Performed By: #### U A #### [facility] ([id number]) [address] [place] [address] 20599 AST [Catalytic activity/Vol] 21 U/L Normal 0-41 [facility] Comment on above: Performed By: #### U A #### [facility] ([id number]) [address] [place] [address] [place] [address] Bilirubin [Mass/Vol] 0.4 mg/dL Normal 0.3-1.2 [facility] Comment on above: Performed By: #### U A #### [facility] ([id number]) [address] [place] [address] [place] [address] Calcium [Mass/Vol] 8.6 mg/dL Normal 8.5-10.5 [facility] Comment on above: Performed By: #### U A #### [facility] ([id number]) [address] [place] [address] [place] [address] Chloride [Moles/Vol] 98 mmol/L Normal 98-109 [facility] Comment on above: Performed By: #### U A #### [facility] ([id number]) [address] [place] [address] [place] [address] CO2 [Moles/Vol] 31 mmol/L Normal 22-32 [facility] Comment on above: Performed By: #### U A #### [facility] ([id number]) [address] [place] [address] 96933 Creatinine [Mass/Vol] 0.72 mg/dL Normal 0.40-1.00 [facility] Comment on above: Result Comment: METH OD TRACEABLE TO IDMS STANDARD Performed By: #### U A #### [facility] ([id number]) [address] [place] [address] 89197 GFR/1.73 sq M.predicted among non-blacks MDRD (S/P/Bld) [Vol rate/Area] 89 mL/min/{1.73_m2} Normal >59 [facility] Comment on above: Result Comment: Reported eGFR is based on the CKD-EPI 2020 equation that does not use a race coefficient. Performed By: #### U A #### [facility] ([id number]) [address] [place] [address] 24737 Glucose [Mass/Vol] 123 mg/dL High 65-99 [facility] Comment on above: Performed By: #### U A #### [facility] ([id number]) [address] [place] [address] 15413 Potassium [Moles/Vol] 3.7 mmol/L Normal 3.5-5.0 [facility] Comment on above: Performed By: #### U A #### [facility] ([id number]) [address] [place] [address] 16802 Protein [Mass/Vol] 7.1 g/dL Normal 6.0-8.0 [facility] Comment on above: Performed By: #### U A #### [facility] ([id number]) [address] [place] [address] 35568 Sodium [Moles/Vol] 139 mmol/L Normal 134-146 [facility] Comment on above: Performed By: #### U A #### [facility] ([id number]) [address] [place] [address], [place] [address] Urea nitrogen [Mass/Vol] 16 mg/dL Normal 5-27 [facility] Comment on above: Performed By: #### U A #### [facility] ([id number]) [address] [place] [address] 41696 MAGNESIUMon 12-28-2023 Magnesium [Mass/Vol] 2.3 mg/dL Normal 1.8-2.6 [facility] Comment on above: Performed By: #### U A #### [facility] ([id number]) [address] [place] [address] 68151 PROTIME AND INRon 12-28-2023 INR Coag (PPP) [Relative time] 2.5 {INR} High 0.8-1.1 [facility] Comment on above: Performed By: #### U A #### [facility] ([id number]) [address] [place] [address] 69172 PT Coag (PPP) [Time] 28.0 s High 9.8-13.2 [facility] Comment on above: Result Comment: NEW REFERENCE RANGE Performed By: #### U A #### [facility] ([id number]) [address] [place] [address] 87016 Vancomycin trough [Mass/Vol] on 12-28-2023 VANCOMYCIN TROUGH 26.7 ug/mL Critically high 5.0-20.0 [facility] Comment on above: Performed By: #### U A #### [facility] ([id number]) [address] [place] [address] 81873 CBC AND AUTO DIFFon 12-27-19 24 ABSOLUTE BASOPHIL 0.0 X10E9/L Normal 0.0-0.2 [facility] Comment on above: Performed By: #### C BCA, CMP, 1987- #### [facility] ([id number]) [address] [place] [address] 67785 #### [id number] #### [facility] ([id number]) [address], [address] [place] [address] ABSOLUTE NEUTROPHIL 8.9 X10E9/L High 1.5-6.6 [facility] Comment on above: Performed By: #### Chanel ERICKSON CMP, 1986-02 #### [facility] ([id number]) [address] [place] [address] 92731 #### 30122-9 #### [facility] ([id number]) [address] [place] [address] Basophils/100 WBC (Bld) 0.3 % Normal [facility] Comment on above: Performed By: #### Chanel ERICKSON CMP, 1986-02 #### [facility] ([id number]) [address] [place] [address] 68882 #### 52793-9 #### [facility] ([id number]) [address] [place] [address] Eosinophils (Bld) [#/Vol] 0.8 10*3/uL High 0.0-0.4 [facility] Comment on above: Performed By: #### Chanel ERICKSON CMP, 1988-02 #### [facility] ([id number]) [address] [place] [address] 36316 #### 39923-6 #### [facility] ([id number]) [address] [place] [address] Eosinophils/100 WBC (Bld) 6.1 % Normal [facility] Comment on above: Performed By: #### Chanel ERICKSON CMP, 1988-02 #### [facility] ([id number]) [address] [place] [address] 86903 #### 24369-6 #### [facility] ([id number]) [address] [place] [address] Erythrocyte distribution width (RBC) [Ratio] 13.7 % Normal 11.5-15.0 [facility] Comment on above: Performed By: #### Chanel ERICKSON CMP, 1988-02 #### [facility] ([id number]) [address] [place] [address] 50898 #### 94948-0 #### [facility] ([id number]) [address] [facility], [address] [place] [address] Hematocrit (Bld) [Volume fraction] 34.5 % Low 35-47 [facility] Comment on above: Performed By: #### Chanel ERICKSON [facility], 1988-02 #### [facility] ([id number]) [address] [place] [address] 76864 #### 29398-4 #### [facility] ([id number]) [address] [facility], [address] [place] [address] Hemoglobin (Bld) [Mass/Vol] 11.5 g/dL Low 11.7-15.5 [facility] Comment on above: Performed By: #### Chanel ERICKSON [facility], 1988-02 #### [facility] ([id number]) [address] [place] [address] 88442 #### 49799-9 #### [facility] ([id number]) [address] [place] [address] Lymphocytes (Bld) [#/Vol] 2.4 10*3/uL Normal 1.0-3.5 [facility] Comment on above: Performed By: #### Chanel ERICKSON CMP, 1988-02 #### [facility] ([id number]) [address] [place] [address] 17136 #### 61835-0 #### [facility] ([id number]) [address] [place] [address] Lymphocytes/100 WBC (Bld) 18.4 % Normal [facility] Comment on above: Performed By: #### Chanel ERICKSON CMP, 1988-02 #### [facility] ([id number]) [address] [place] [address] 96015 #### 48925-4 #### [facility] ([id number]) [address] [place] [address] MCH (RBC) [Entitic mass] 28.8 pg Normal 27-34 [facility] Comment on above: Performed By: #### Chanel ERICKSON CMP, 1988-02 #### [facility] ([id number]) [address] [place] [address] 47126 #### 65471-4 #### [facility] ([id number]) [address] [place] [address] MCHC (RBC) [Mass/Vol] 33.3 g/dL Normal 32-36 [facility] Comment on above: Performed By: #### Chanel ERICKSON [facility], 1988-02 #### [facility] ([id number]) [address] [place] [address] 46188 #### 01251-8 #### [facility] ([id number]) [address] [place] [address] MCV (RBC) [Entitic vol] 87 fL Normal 80-100 [facility] Comment on above: Performed By: #### Chanel ERICKSON CMP, 1988-02 #### [facility] ([id number]) [address] [place] [address] 36903 #### 78544-0 #### [facility] ([id number]) [address] [place] [address] Monocytes (Bld) [#/Vol] 0.9 10*3/uL Normal 0-0.9 [facility] Comment on above: Performed By: #### Chanel ERICKSON CMP, 1988-02 #### [facility] ([id number]) [address] [place] [address] 26194 #### 14108-6 #### [facility] ([id number]) [address] [place] [address] Monocytes/100 WBC (Bld) 7.1 % Normal [facility] Comment on above: Performed By: #### Chanel ERICKSON CMP, 1988-02 #### [facility] ([id number]) [address] [place] [address] 28946 #### 70691-8 #### [facility] ([id number]) [address] [place] [address] Neutrophils/100 WBC (Bld) 68.1 % Normal [facility] Comment on above: Performed By: #### Chanel ERICKSON CMP, 1988-02 #### [facility] ([id number]) [address] [place] [address] 35477 #### 08439-0 #### [facility] ([id number]) [address] [place] [address] Platelet mean volume (Bld) [Entitic vol] 8.7 fL Normal 7-12 [facility] Comment on above: Performed By: #### Chanel ERICKSON CMP, 1988-02 #### [facility] ([id number]) [address] [place] [address] 92275 #### 17063-6 #### [facility] ([id number]) [address] [place] [address] Platelets (Bld) [#/Vol] 323 10*3/uL Normal 150-450 [facility] Comment on above: Performed By: #### C BCA, CMP, 1988-02 #### [facility] ([id number]) [address] [place] [address] 09088 #### 18452-5 #### [facility] ([id number]) [address] [facility], [address] [place] [address] RBC COUNT 3.98 X10E12/L Normal 3.80-5.20 [facility] Comment on above: Performed By: #### C BCA, CMP, 1988-02 #### [facility] ([id number]) [address] [place] [address] 10631 #### 95838-6 #### [facility] ([id number]) [address] [facility], [address] [place] [address] WBC (Bld) [#/Vol] 13.1 10*3/uL High 4.0-11.0 [facility] Comment on above: Performed By: #### C BCA, CMP, 1988-02 #### [facility] ([id number]) [address] [place] [address] 93245 #### 57870-3 #### [facility] ([id number]) [address] [facility], [address] [place] [address] COMPREHENSIVE METABOLIC PANE Tyrone 12-27-2023 Albumin [Mass/Vol] 3.0 g/dL Low 3.2-5.3 [facility] Comment on above: Performed By: #### C BCA, CMP, 1988-02 #### [facility] ([id number]) [address] [place] [address] 70840 #### 79799-4 #### [facility] ([id number]) [address] [facility], [address] [place] [address] ALP [Catalytic activity/Vol] 68 U/L Normal 39-130 [facility] Comment on above: Performed By: #### Chanel BCA, [facility], 1988-02 #### [facility] ([id number]) [address] [place] [address] 73662 #### 01810-1 #### [facility] ([id number]) [address] [place] [address] ALT [Catalytic activity/Vol] 17 U/L Normal 0-31 [facility] Comment on above: Performed By: #### Chanel BCA, [facility], 1988-02 #### [facility] ([id number]) [address] [place] [address] 73232 #### 95854-3 #### [facility] ([id number]) [address] [place] [address] Anion gap [Moles/Vol] 8 mmol/L Normal 5-15 [facility] Comment on above: Performed By: #### Chanel ERICKSON, [facility], 1988-02 #### [facility] ([id number]) [address] [place] [address] 74745 #### 89013-5 #### [facility] ([id number]) [address] [place] [address] AST [Catalytic activity/Vol] 16 U/L Normal 0-41 [facility] Comment on above: Performed By: #### Chanel BCA, CMP, 1988-02 #### [facility] ([id number]) [address] [place] [address] 39594 #### 32305-6 #### [facility] ([id number]) [address] [place] [address] Bilirubin [Mass/Vol] 0.5 mg/dL Normal 0.3-1.2 [facility] Comment on above: Performed By: #### Chanel BCA, CMP, 1988-02 #### [facility] ([id number]) [address] [place] [address] 71231 #### 32637-4 #### [facility] ([id number]) [address] [place] [address] Calcium [Mass/Vol] 8.3 mg/dL Low 8.5-10.5 [facility] Comment on above: Performed By: #### Chanel ERICKSON CMP, 1988-02 #### [facility] ([id number]) [address] [place] [address] 42609 #### 48064-5 #### [facility] ([id number]) [address] [facility], [address] [place] [address] Chloride [Moles/Vol] 99 mmol/L Normal 98-109 [facility] Comment on above: Performed By: #### Chanel ERICKSON CMP, 1988-02 #### [facility] ([id number]) [address] [place] [address] 09742 #### 67243-1 #### [facility] ([id number]) [address] [facility], [address] [place] [address] CO2 [Moles/Vol] 31 mmol/L Normal 22-32 [facility] Comment on above: Performed By: #### Chanel ERICKSON CMP, 1986-02 #### [facility] ([id number]) [address] [place] [id number] #### [id number] #### [facility] ([id number]) [address], [address] [place] [address] Creatinine [Mass/Vol] 0.71 mg/dL Normal 0.40-1.00 [facility] Comment on above: Result Comment: METH OD TRACEABLE TO IDMS STANDARD Performed By: #### C DRE CMP, 1988-02 #### [facility] ([id number]) [address] [place] [address] 42103 #### 11457-0 #### [facility] ([id number]) [address], [address] [place] [address] eGFR (CKD-EPI) NON-RACE DEPENDENT >90 Normal >59 [facility] Comment on above: Result Comment: Reported eGFR is based on the CKD-EPI 2020 equation that does not use a race coefficient. Performed By: #### Chanel ERICKSON CMP, 1988-02 #### [facility] ([id number]) [address] [place] [address] 76307 #### 08079-9 #### [facility] ([id number]) [address] [facility], [address] [place] [address] Glucose [Mass/Vol] 119 mg/dL High 65-99 [facility] Comment on above: Performed By: #### Chanel ERICKSON CMP, 1988-02 #### [facility] ([id number]) [address] [place] [address] 67998 #### 91205-2 #### [facility] ([id number]) [address] [facility], [address] [place] [address] Potassium [Moles/Vol] 3.6 mmol/L Normal 3.5-5.0 [facility] Comment on above: Performed By: #### Chanel ERICKSON CMP, 1988-02 #### [facility] ([id number]) [address] [place] [address] 85720 #### 53544-9 #### [facility] ([id number]) [address], [address] [place] [address] Protein [Mass/Vol] 7.0 g/dL Normal 6.0-8.0 [facility] Comment on above: Performed By: #### Chanel ERICKSON CMP, 1988-02 #### [facility] ([id number]) [address] [place] [address] 57336 #### 94865-5 #### [facility] ([id number]) [address] [facility], [address] [place] [address] Sodium [Moles/Vol] 138 mmol/L Normal 134-146 [facility] Comment on above: Performed By: #### Chanel ERICKSON [facility], 1988-02 #### [facility] ([id number]) [address] [place] [address] 02245 #### 37179-7 #### [facility] ([id number]) [address] [facility], [address] [place] [address] Urea nitrogen [Mass/Vol] 18 mg/dL Normal 5-27 [facility] Comment on above: Performed By: #### Chanel ERICKSON [facility], 1988-02 #### [facility] ([id number]) [address] [place] [address] 03917 #### 61693-0 #### [facility] ([id number]) [address] [facility], [address] [place] [address] Glucose Glucometer (BldC) [M ass/Vol]on 12-27-2023 Glucose [Mass/Vol] 149 mg/dL High 65-99 [facility] Glucose [Mass/Vol] 156 mg/dL High 65-99 [facility] Glucose [Mass/Vol] 181 mg/dL High 65-99 [facility] MAGNESIUMon 12-27-2023 Magnesium [Mass/Vol] 2.3 mg/dL Normal 1.8-2.6 [facility] Comment on above: Performed By: #### U A #### [facility] ([id number]) [address] [place] [address] PROTIME AND INRon 12-27-2023 INR Coag (PPP) [Relative time] 2.9 {INR} High 0.8-1.1 [facility] Comment on above: Performed By: #### C DRE, CMP, 1988-02 #### [facility] ([id number]) [address] [place] [address] 83154 #### 29329-4 #### [facility] ([id number]) [address], [address] [place] [address] PT Coag (PPP) [Time] 32.6 s High 9.8-13.2 [facility] Comment on above: Result Comment: NEW REFERENCE RANGE Performed By: #### C DRE CMP, 1988-02 #### [facility] ([id number]) [address] [place] [address] 58735 #### 78193-0 #### [facility] ([id number]) [address], [address] [place] [address] CBC AND AUTO DIFFon 12-26-19 24 ABSOLUTE BASOPHIL 0.1 X10E9/L Normal 0.0-0.2 [facility] Comment on above: Performed By: #### Chanel ERICKSON [facility], 1988-02 #### [facility] ([id number]) [address] [place] [address] 32013 #### 54010-9 #### [facility] ([id number]) [address], [address] [place] [address] ABSOLUTE NEUTROPHIL 11.1 X10E9/L High 1.5-6.6 [facility] Comment on above: Performed By: #### Chanel ERICKSON, CMP, 1988-02 #### [facility] ([id number]) [address] [place] [address] 82878 #### 41187-3 #### [facility] ([id number]) [address], [address] [place] [address] Basophils/100 WBC (Bld) 0.4 % Normal [facility] Comment on above: Performed By: #### C DRE, [facility], 1988-02 #### [facility] ([id number]) [address] [place] [address] 07457 #### 58796-1 #### [facility] ([id number]) [address], [address] [place] [address] Eosinophils (Bld) [#/Vol] 0.8 10*3/uL High 0.0-0.4 [facility] Comment on above: Performed By: #### Chanel ERICKSON, [facility], 1988-02 #### [facility] ([id number]) [address] [place] [address] 53266 #### 04365-0 #### [facility] ([id number]) [address], [address] [place] [address] Eosinophils/100 WBC (Bld) 5.4 % Normal [facility] Comment on above: Performed By: #### Chanel ERICKSON [facility], 1988-02 #### [facility] ([id number]) [address] [place] [address] 35404 #### 59047-7 #### [facility] ([id number]) [address], [address] [place] [address] Erythrocyte distribution width (RBC) [Ratio] 13.9 % Normal 11.5-15.0 [facility] Comment on above: Performed By: #### Chanel ERICKSON [facility], 1988-02 #### [facility] ([id number]) [address] [place] [address] 96402 #### 82777-0 #### [facility] ([id number]) [address], [address] [place] [address] Hematocrit (Bld) [Volume fraction] 35.9 % Normal 35-47 [facility] Comment on above: Performed By: #### Chanel ERICKSON, [facility], 1988-02 #### [facility] ([id number]) [address] [place] [address] 79833 #### 83979-6 #### [facility] ([id number]) [address], [address] [place] [address] Hemoglobin (Bld) [Mass/Vol] 11.7 g/dL Normal 11.7-15.5 [facility] Comment on above: Performed By: #### Chanel ERICKSON [facility], 1988-02 #### [facility] ([id number]) [address] [place] [address] 83470 #### 53951-8 #### [facility] ([id number]) [address], [address] [place] [address] Lymphocytes (Bld) [#/Vol] 2.6 10*3/uL Normal 1.0-3.5 [facility] Comment on above: Performed By: #### Chanel ERICKSON [facility], 1988-02 #### [facility] ([id number]) [address] [place] [address] 86217 #### 59666-9 #### [facility] ([id number]) [address], [address] [place] [address] Lymphocytes/100 WBC (Bld) 16.6 % Normal [facility] Comment on above: Performed By: #### Chanel ERICKSON [facility], 1988-02 #### [facility] ([id number]) [address] [place] [address] 92844 #### 37526-9 #### [facility] ([id number]) [address], [address] [place] [address] MCH (RBC) [Entitic mass] 28.2 pg Normal 27-34 [facility] Comment on above: Performed By: #### Chanel ERICKSON [facility], 1988-02 #### [facility] ([id number]) [address] [place] [address] 65979 #### 09241-7 #### [facility] ([id number]) [address] [place] [address], [address] [place] [address] MCHC (RBC) [Mass/Vol] 32.7 g/dL Normal 32-36 [facility] Comment on above: Performed By: #### Chanel ERICKSON CMP, 1988-02 #### [facility] ([id number]) [address] [place] [address] 16926 #### 15495-0 #### [facility] ([id number]) [address] [place] [address], [address] [place] [address] MCV (RBC) [Entitic vol] 86 fL Normal 80-100 [facility] Comment on above: Performed By: #### Chanel ERICKSON CMP, 1988-02 #### [facility] ([id number]) [address] [place] [address] 08883 #### 31626-1 #### [facility] ([id number]) [address] [place] [address], [address] [address] Monocytes (Bld) [#/Vol] 0.9 10*3/uL Normal 0-0.9 [facility] Comment on above: Performed By: #### Chanel ERICKSON CMP, 1988-02 #### [facility] ([id number]) [address] [place] [address] 77861 #### 34646-7 #### [facility] ([id number]) [address] [place] [address], [address] [place] [address] Monocytes/100 WBC (Bld) 5.9 % Normal [facility] Comment on above: Performed By: #### Chanel ERICKSON CMP, 1988-02 #### [facility] ([id number]) [address] [place] [address] 39677 #### 71162-4 #### [facility] ([id number]) [address], [address] [place] [address] Neutrophils/100 WBC (Bld) 71.7 % Normal [facility] Comment on above: Performed By: #### Chanel ERICKSON CMP, 1988-02 #### [facility] ([id number]) [address] [place] [address] 76858 #### 68035-6 #### [facility] ([id number]) [address], [address] [place] [address] Platelet mean volume (Bld) [Entitic vol] 8.6 fL Normal 7-12 [facility] Comment on above: Performed By: #### Chanel ERICKSON CMP, 1988-02 #### [facility] ([id number]) [address] [place] [address] 99006 #### 21689-2 #### [facility] ([id number]) [address], [address] [place] [address] Platelets (Bld) [#/Vol] 338 10*3/uL Normal 150-450 [facility] Comment on above: Performed By: #### Chanel ERICKSON CMP, 1988-02 #### [facility] ([id number]) [address] [place] [address] 24721 #### 54168-0 #### [facility] ([id number]) [address], [address] [place] [address] RBC COUNT 4.16 X10E12/L Normal 3.80-5.20 [facility] Comment on above: Performed By: #### Chanel ERICKSON CMP, 1988-02 #### [facility] ([id number]) [address] [place] [address] 53619 #### 32796-4 #### [facility] ([id number]) [address], [address] [place] [address] WBC (Bld) [#/Vol] 15.5 10*3/uL High 4.0-11.0 [facility] Comment on above: Performed By: #### Chanel ERICKSON, CMP, 1988-02 #### [facility] ([id number]) [address] [place] [address] 87161 #### 76557-3 #### [facility] ([id number]) [address], [address] [place] [address] COMPREHENSIVE METABOLIC PANE Tyrone 12-26-2023 Albumin [Mass/Vol] 3.2 g/dL Normal 3.2-5.3 [facility] Comment on above: Performed By: #### C DRE CMP, 1988-02 #### [facility] ([id number]) [address] [place] [address] 89983 #### 19135-5 #### [facility] ([id number]) [address], [address] [place] [address] ALP [Catalytic activity/Vol] 69 U/L Normal 39-130 [facility] Comment on above: Performed By: #### C DRE, CMP, 1988-02 #### [facility] ([id number]) [address] [place] [address] 09315 #### 75845-6 #### [facility] ([id number]) [address] [facility], [address] [place] [address] ALT [Catalytic activity/Vol] 16 U/L Normal 0-31 [facility] Comment on above: Performed By: #### C BCA, CMP, 1988-02 #### [facility] ([id number]) [address] [place] [address] 38936 #### 63351-4 #### [facility] ([id number]) [address], [address] [place] [address] Anion gap [Moles/Vol] 10 mmol/L Normal 5-15 [facility] Comment on above: Performed By: #### Chanel ERICKSON CMP, 1988-02 #### [facility] ([id number]) [address] [place] [address] 43712 #### 22921-0 #### [facility] ([id number]) [address], [address] [place] [address] AST [Catalytic activity/Vol] 17 U/L Normal 0-41 [facility] Comment on above: Performed By: #### Chanel ERICKSON [facility], 1988-02 #### [facility] ([id number]) [address] [place] [address] 28112 #### 23253-2 #### [facility] ([id number]) [address], [address] [place] [address] Bilirubin [Mass/Vol] 0.4 mg/dL Normal 0.3-1.2 [facility] Comment on above: Performed By: #### Chanel ERICKSON [facility], 1988-02 #### [facility] ([id number]) [address] [place] [address] 52016 #### 51425-7 #### [facility] ([id number]) [address], [address] [place] [address] Calcium [Mass/Vol] 8.7 mg/dL Normal 8.5-10.5 [facility] Comment on above: Performed By: #### Chanel ERICKSON CMP, 1988-02 #### [facility] ([id number]) [address] [place] [address] 74815 #### 47678-3 #### [facility] ([id number]) [address], [address] [place] [address] Chloride [Moles/Vol] 98 mmol/L Normal 98-109 [facility] Comment on above: Performed By: #### C DRE [facility], 1988-02 #### [facility] ([id number]) [address] [place] [address] 74397 #### 66605-8 #### [facility] ([id number]) [address], [address] [place] [address] CO2 [Moles/Vol] 31 mmol/L Normal 22-32 [facility] Comment on above: Performed By: #### C DRE [facility], 1988-02 #### [facility] ([id number]) [address] [place] [address] 93016 #### 09997-3 #### [facility] ([id number]) [address] [facility], [address] [place] [address] Creatinine [Mass/Vol] 0.78 mg/dL Normal 0.40-1.00 [facility] Comment on above: Result Comment: METH OD TRACEABLE TO IDMS STANDARD Performed By: #### Chanel ERICKSON [facility], 1988-02 #### [facility] ([id number]) [address] [place] [address] 52864 #### 82200-8 #### [facility] ([id number]) [address], [address] [place] [address] GFR/1.73 sq M.predicted among non-blacks MDRD (S/P/Bld) [Vol rate/Area] 81 mL/min/{1.73_m2} Normal >59 [facility] Comment on above: Result Comment: Reported eGFR is based on the CKD-EPI 2020 equation that does not use a race coefficient. Performed By: #### Chanel ERICKSON CMP, 1988-02 #### [facility] ([id number]) [address] [place] [address] 78361 #### 26375-2 #### [facility] ([id number]) [address] [place] [address] Glucose [Mass/Vol] 129 mg/dL High 65-99 [facility] Comment on above: Performed By: #### Chanel ERICKSON CMP, 1988-02 #### [facility] ([id number]) [address] [place] [address] 61764 #### 25488-3 #### [facility] ([id number]) [address] [place] [address] Potassium [Moles/Vol] 3.8 mmol/L Normal 3.5-5.0 [facility] Comment on above: Performed By: #### Chanel ERICKSON CMP, 1988-02 #### [facility] ([id number]) [address] [place] [address] 41816 #### 35860-4 #### [facility] ([id number]) [address], [address] [place] [address] Protein [Mass/Vol] 7.3 g/dL Normal 6.0-8.0 [facility] Comment on above: Performed By: #### Chanel ERICKSON CMP, 1988-02 #### [facility] ([id number]) [address] [place] [address] 54950 #### 94705-6 #### [facility] ([id number]) [address] [place] [address] Sodium [Moles/Vol] 139 mmol/L Normal 134-146 [facility] Comment on above: Performed By: #### Chanel ERICKSON CMP, 1988-02 #### [facility] ([id number]) [address] [place] [address] 72719 #### 90853-1 #### [facility] ([id number]) [address] [place] [address] Urea nitrogen [Mass/Vol] 19 mg/dL Normal 5-27 [facility] Comment on above: Performed By: #### Chanel ERICKSON [facility], 1988-02 #### [facility] ([id number]) [address] [place] [address] #### 27922-9 #### [facility] ([id number]) [address] [place] [address] Glucose Glucometer (BldC) [M ass/Vol]on 12-26-2023 Glucose [Mass/Vol] 146 mg/dL High 65-99 [facility] Glucose [Mass/Vol] 182 mg/dL High 65-99 [facility] Glucose [Mass/Vol] 108 mg/dL High 65-99 [facility] MAGNESIUMon 12-26-2023 Magnesium [Mass/Vol] 2.3 mg/dL Normal 1.8-2.6 [facility] Comment on above: Performed By: #### Chanel ERICKSON [facility], 1988-02 #### [facility] ([id number]) [address] [place] [address] 25708 #### 53770-3 #### [facility] ([id number]) [address], [address] [address] MR FOOT RT W WO CONTon 12-25 [...] Alberto MD on 12/26/2023 12:57 PM Normal [facility] PROTIME AND INRon 12-26-2023 INR Coag (PPP) [Relative time] 3.0 {INR} High 0.8-1.1 [facility] Comment on above: Performed By: #### C DRE [facility], 1988-02 #### [facility] ([id number]) [address] [place] [address] 69067 #### 99496-4 #### [facility] ([id number]) [address], [address] [place] [address] PT Coag (PPP) [Time] 33.3 s High 9.8-13.2 [facility] Comment on above: Result Comment: NEW REFERENCE RANGE Performed By: #### C DRE [facility], 1988-02 #### [facility] ([id number]) [address] [place] [address] 95639 #### 77705-5 #### [facility] ([id number]) [address] [facility], [address] [place] [address] Vancomycin trough [Mass/Vol] on 12-26-2023 VANCOMYCIN TROUGH 11.6 ug/mL Normal 5.0-20.0 [facility] Comment on above: Performed By: #### Chanel ERICKSON, CMP, 1988-02 #### [facility] ([id number]) [address] [place] [address] 97296 #### 49329-6 #### [facility] ([id number]) [address], [address] [place] [address] CBC AND AUTO DIFFon 12-25-19 24 ABSOLUTE BASOPHIL 0.1 X10E9/L Normal 0.0-0.2 [facility] Comment on above: Performed By: #### Chanel ERICKSON, CMP, 1988-02 #### [facility] ([id number]) [address] [place] [address] 64983 #### 64307-6 #### [facility] ([id number]) [address], [address] [place] [address] ABSOLUTE NEUTROPHIL 9.4 X10E9/L High 1.5-6.6 [facility] Comment on above: Performed By: #### Chanel ERICKSON, CMP, 1988-02 #### [facility] ([id number]) [address] [place] [address] 79803 #### 26905-9 #### [facility] ([id number]) [address], [address] [place] [address] Basophils/100 WBC (Bld) 0.4 % Normal [facility] Comment on above: Performed By: #### Chanel ERICKSON, CMP, 1988-02 #### [facility] ([id number]) [address] [place] [address] 08559 #### 92372-1 #### [facility] ([id number]) [address], [address] [place] [address] Eosinophils (Bld) [#/Vol] 0.7 10*3/uL High 0.0-0.4 [facility] Comment on above: Performed By: #### Chanel ERICKSON [facility], 1988-02 #### [facility] ([id number]) [address] [place] [address] 82347 #### 31688-2 #### [facility] ([id number]) [address], [address] [place] [address] Eosinophils/100 WBC (Bld) 5.3 % Normal [facility] Comment on above: Performed By: #### Chanel ERICKSON [facility], 1988-02 #### [facility] ([id number]) [address] [place] [address] 18456 #### 89522-6 #### [facility] ([id number]) [address], [address] [place] [address] Erythrocyte distribution width (RBC) [Ratio] 13.7 % Normal 11.5-15.0 [facility] Comment on above: Performed By: #### Chanel ERICKSON [facility], 1988-02 #### [facility] ([id number]) [address] [place] [address] 95993 #### 42129-3 #### [facility] ([id number]) [address], [address] [place] [address] Hematocrit (Bld) [Volume fraction] 37.8 % Normal 35-47 [facility] Comment on above: Performed By: #### Chanel ERICKSON [facility], 1988-02 #### [facility] ([id number]) [address] [place] [address] 42652 #### 92293-9 #### [facility] ([id number]) [address] [place] [address] Hemoglobin (Bld) [Mass/Vol] 12.6 g/dL Normal 11.7-15.5 [facility] Comment on above: Performed By: #### Chanel ERICKSON CMP, 1988-02 #### [facility] ([id number]) [address] [place] [address] 53556 #### 98038-9 #### [facility] ([id number]) [address], [address] [place] [address] Lymphocytes (Bld) [#/Vol] 2.4 10*3/uL Normal 1.0-3.5 [facility] Comment on above: Performed By: #### Chanel ERICKSON [facility], 1988-02 #### [facility] ([id number]) [address] [place] [address] 19502 #### 66499-4 #### [facility] ([id number]) [address], [address] [place] [address] Lymphocytes/100 WBC (Bld) 17.5 % Normal [facility] Comment on above: Performed By: #### Chanel ERICKSON [facility], 1988-02 #### [facility] ([id number]) [address] [place] [address] 00654 #### 59748-3 #### [facility] ([id number]) [address], [address] [place] [address] MCH (RBC) [Entitic mass] 28.8 pg Normal 27-34 [facility] Comment on above: Performed By: #### Chanel ERICKSON [facility], 1986-02 #### [facility] ([id number]) [address] [place] [address] [id number] #### [id number] #### [facility] ([id number]) [address], [address] [place] [address] MCHC (RBC) [Mass/Vol] 33.4 g/dL Normal 32-36 [facility] Comment on above: Performed By: #### Chanel ERICKSON [facility], 1986-02 #### [facility] ([id number]) [address] [place] [address]70 #### [id number] #### [facility] ([id number]) [address] [place] [address] MCV (RBC) [Entitic vol] 86 fL Normal 80-100 [facility] Comment on above: Performed By: #### Chanel ERICKSON [facility], 1986-02 #### [facility] ([id number]) [address] [place] [address] 20263 #### [id number] #### [facility] ([id number]) [address], [address] [place] [address] Monocytes (Bld) [#/Vol] 1.1 10*3/uL High 0-0.9 [facility] Comment on above: Performed By: #### Chanel ERICKSON CMP, 1986-02 #### [facility] ([id number]) [address] [place] [address] 19611 #### [id number] #### [facility] ([id number]) [address] [place] [address] Monocytes/100 WBC (Bld) 8.0 % Normal [facility] Comment on above: Performed By: #### Chanel ERICKSON CMP, 1986-02 #### [facility] ([id number]) [address] [place] [address] [id number] #### [id number] #### [facility] ([id number]) [address], [address] [place] [address] Neutrophils/100 WBC (Bld) 68.8 % Normal [facility] Comment on above: Performed By: #### Chanel ERICKSON CMP, 1986-02 #### [facility] ([id number]) [address] [place] [address] 53034 #### [id number] #### [facility] ([id number]) [address], [address] [place] [address] Platelet mean volume (Bld) [Entitic vol] 8.4 fL Normal 7-12 [facility] Comment on above: Performed By: #### Chanel ERICKSON CMP, 1986-02 #### [facility] ([id number]) [address] [place] [address]9629 #### [id number] #### [facility] ([id number]) [address], [address] [place] [address] Platelets (Bld) [#/Vol] 321 10*3/uL Normal 150-450 [facility] [facility] Comment on above: Performed By: #### Chanel ERICKSON CMP, 1988-02 #### [facility] ([id number]) [address] [place] [address] 45282 #### 05821-0 #### [facility] ([id number]) [address], [address] [place] [address] RBC COUNT 4.38 X10E12/L Normal 3.80-5.20 [facility] Comment on above: Performed By: #### Chanel ERICKSON CMP, 1988-02 #### [facility] ([id number]) [address] [place] [address] 30916 #### 39930-8 #### [facility] ([id number]) [address], [address] [place] [address] WBC (Bld) [#/Vol] 13.7 10*3/uL High 4.0-11.0 [facility] Comment on above: Performed By: #### Chanel ERICKSON CMP, 1988-02 #### [facility] ([id number]) [address] [place] [address] 09576 #### 73129-6 #### [facility] ([id number]) [address], [address] [place] [address] COMPREHENSIVE METABOLIC PANE Tyrone 12-25-2023 Albumin [Mass/Vol] 3.3 g/dL Normal 3.2-5.3 [facility] Comment on above: Performed By: #### C DRE, CMP, 1988-02 #### [facility] ([id number]) [address] [place] [address] 53304 #### 90890-4 #### [facility] ([id number]) [address] [facility], [address] [place] [address] ALP [Catalytic activity/Vol] 66 U/L Normal 39-130 [facility] Comment on above: Performed By: #### C DRE CMP, 1988-02 #### [facility] ([id number]) [address] [place] [address] 54401 #### 97134-4 #### [facility] ([id number]) [address] [facility], [address] [place] [address] ALT [Catalytic activity/Vol] 16 U/L Normal 0-31 [facility] Comment on above: Performed By: #### Chanel BCA, CMP, 1988-02 #### [facility] ([id number]) [address] [place] [address] 98549 #### 25490-7 #### [facility] ([id number]) [address], [address] [place] [address] Anion gap [Moles/Vol] 10 mmol/L Normal 5-15 [facility] Comment on above: Performed By: #### Chanel BCA, CMP, 1988-02 #### [facility] ([id number]) [address] [place] [address] 76997 #### 76677-3 #### [facility] ([id number]) [address], [address] [place] [address] AST [Catalytic activity/Vol] 17 U/L Normal 0-41 [facility] Comment on above: Performed By: #### Chanel ERICKSON [facility], 1988-02 #### [facility] ([id number]) [address] [place] [address] 07717 #### 47494-8 #### [facility] ([id number]) [address], [address] [place] [address] Bilirubin [Mass/Vol] 0.5 mg/dL Normal 0.3-1.2 [facility] Comment on above: Performed By: #### Chanel ERICKSON [facility], 1988-02 #### [facility] ([id number]) [address] [place] [address] 24200 #### 45825-8 #### [facility] ([id number]) [address], [address] [place] [address] Calcium [Mass/Vol] 8.9 mg/dL Normal 8.5-10.5 [facility] Comment on above: Performed By: #### Chanel ERICKSON [facility], 1988-02 #### [facility] ([id number]) [address] [place] [address] 57229 #### 53994-0 #### [facility] ([id number]) [address], [address] [place] [address] Chloride [Moles/Vol] 98 mmol/L Normal 98-109 [facility] Comment on above: Performed By: #### C DRE [facility], 1988-02 #### [facility] ([id number]) [address] [place] [address] 20042 #### 88173-5 #### [facility] ([id number]) [address], [address] [place] [address] CO2 [Moles/Vol] 31 mmol/L Normal 22-32 [facility] Comment on above: Performed By: #### C SEAN ERICKSON, 1986-02 #### [facility] ([id number]) [address] [place] [address] 58094 #### 25105-6 #### [facility] ([id number]) [address], [address] [place] [address] Creatinine [Mass/Vol] 0.78 mg/dL Normal 0.40-1.00 [facility] Comment on above: Result Comment: METH OD TRACEABLE TO IDMS STANDARD Performed By: #### C SEAN ERICKSON, 1988-02 #### [facility] ([id number]) [address] [place] [address] 72292 #### 28894-3 #### [facility] ([id number]) [address], [address] [place] [address] GFR/1.73 sq M.predicted among non-blacks MDRD (S/P/Bld) [Vol rate/Area] 81 mL/min/{1.73_m2} Normal >59 [facility] Comment on above: Result Comment: Reported eGFR is based on the CKD-EPI 2020 equation that does not use a race coefficient. Performed By: #### Chanel ERICKSON CMP, 1988-02 #### [facility] ([id number]) [address] [place] [address] 17715 #### 90609-4 #### [facility] ([id number]) [address], [address] [place] [address] Glucose [Mass/Vol] 125 mg/dL High 65-99 [facility] Comment on above: Performed By: #### Chanel ERICKSON CMP, 1988-02 #### [facility] ([id number]) [address] [place] [address] 12087 #### 22080-4 #### [facility] ([id number]) [address], [address] [place] [address] Potassium [Moles/Vol] 3.5 mmol/L Normal 3.5-5.0 [facility] Comment on above: Performed By: #### C DRE CMP, 1988-02 #### [facility] ([id number]) [address] [place] [address] 02172 #### 93918-5 #### [facility] ([id number]) [address], [address] [place] [address] Protein [Mass/Vol] 7.7 g/dL Normal 6.0-8.0 [facility] Comment on above: Performed By: #### Chanel ERICKSON CMP, 1988-02 #### [facility] ([id number]) [address] [place] [address] 35843 #### 34138-3 #### [facility] ([id number]) [address], [address] [place] [address] Sodium [Moles/Vol] 139 mmol/L Normal 134-146 [facility] Comment on above: Performed By: #### Chanel ERICKSON CMP, 1988-02 #### [facility] ([id number]) [address] [place] [address] 23197 #### 26581-3 #### [facility] ([id number]) [address], [address] [place] [address] Urea nitrogen [Mass/Vol] 19 mg/dL Normal 5-27 [facility] Comment on above: Performed By: #### Chanel ERICKSON CMP, 1988-02 #### [facility] ([id number]) [address] [place] [address] 53923 #### 14728-9 #### [facility] ([id number]) [address], [address] [place] [address] CRP [Mass/Vol]on 12-25-2023 C REACTIVE PROTEIN 8.6 mg/dL High 0.000-0.744 [facility] Comment on above: Performed By: #### Chanel ERICKSON [facility], 1988-02 #### [facility] ([id number]) [address] [place] [address] 95328 #### 75571-0 #### [facility] ([id number]) [address], [address] [place] [address] ESR Photometric method (Bld) [Velocity]on 12-25-2023 ESR, ERYTHROCYTE SEDIMENTATION RATE 85 mm/h High 0-30 [facility] Comment on above: Performed By: #### Chanel ERICKSON [facility], 1988-02 #### [facility] ([id number]) [address] [place] [address] 90509 #### 15490-7 #### [facility] ([id number]) [address], [address] [place] [address] Glucose Glucometer (BldC) [M ass/Vol]on 12-25-2023 Glucose [Mass/Vol] 171 mg/dL High 65-99 [facility] Glucose [Mass/Vol] 125 mg/dL High 65-99 [facility] Glucose [Mass/Vol] 154 mg/dL High 65-99 [facility] MAGNESIUMon 12-25-2023 Magnesium [Mass/Vol] 2.4 mg/dL Normal 1.8-2.6 [facility] Comment on above: Performed By: #### Chanel ERICKSON [facility], 1988-02 #### [facility] ([id number]) [address] [place] [address] 74624 #### 58280-9 #### [facility] ([id number]) [address], [address] [place] [address] POTASSIUMon 12-25-2023 Potassium [Moles/Vol] 4.2 mmol/L Normal 3.5-5.0 [facility] Comment on above: Performed By: #### C DRE [facility], 1988-02 #### [facility] ([id number]) [address] [place] [address] 61439 #### 11495-5 #### [facility] ([id number]) [address] [facility], [address] [place] [address] PROTIME AND INRon 12-25-2023 INR Coag (PPP) [Relative time] 2.6 {INR} High 0.8-1.1 [facility] Comment on above: Performed By: #### C DRE [facility], 1988-02 #### [facility] ([id number]) [address] [place] [address] 79838 #### 36431-0 #### [facility] ([id number]) [address] [place] [address], [address] [place] [address] PT Coag (PPP) [Time] 29.7 s High 9.8-13.2 [facility] Comment on above: Result Comment: NEW REFERENCE RANGE Performed By: #### Chanel ERICKSON [facility], 1988-02 #### [facility] ([id number]) [address] [place] [address] 49693 #### 21849-4 #### [facility] ([id number]) [address] [place] [address], [address] [place] [address] URIC ACIDon 12-25-2023 Urate [Mass/Vol] 8.9 mg/dL High 2.6-7.2 [facility] Comment on above: Performed By: #### Chanel ERICKSON CMP, 1988-02 #### [facility] ([id number]) [address] [place] [address] 99598 #### 96963-5 #### [facility] ([id number]) [address] [facility], [address] [place] [address] XR CHEST 1 VWon 12-25-2023 XR CHEST [...] Wood MD on 12/25/2023 11:21 AM Normal [facility] XR FOOT RT 2 VWSon 4 XR [...] Araujo MD on 12/25/2023 2:59 PM Normal [facility] CBC AND AUTO DIFFon 12-24-19 24 ABSOLUTE BASOPHIL 0.1 X10E9/L Normal 0.0-0.2 [facility] Comment on above: Performed By: #### C BCA, [facility], 1988-02 #### [facility] ([id number]) [address] [place] [address], [place] [address] #### 85527-1 #### [facility] ([id number]) [address] [facility], [address] [place] [address] ABSOLUTE NEUTROPHIL 10.2 X10E9/L High 1.5-6.6 [facility] Comment on above: Performed By: #### Chanel ERICKSON [facility], 1988-02 #### [facility] ([id number]) [address] [place] [address] 34785 #### 06573-2 #### [facility] ([id number]) [address], [address] [place] [address] Basophils/100 WBC (Bld) 0.5 % Normal [facility] Comment on above: Performed By: #### C DRE [facility], 1988-02 #### [facility] ([id number]) [address] [place] [address] 52159 #### 29376-6 #### [facility] ([id number]) [address], [address] [place] [address] Eosinophils (Bld) [#/Vol] 0.9 10*3/uL High 0.0-0.4 [facility] Comment on above: Performed By: #### Chanel ERICKSON, [facility], 1988-02 #### [facility] ([id number]) [address] [place] [address] 45285 #### 65507-6 #### [facility] ([id number]) [address], [address] [place] [address] Eosinophils/100 WBC (Bld) 6.2 % Normal [facility] Comment on above: Performed By: #### Chanel ERICKSON [facility], 1988-02 #### [facility] ([id number]) [address] [place] [address] 39736 #### 82275-1 #### [facility] ([id number]) [address] [place] [address] Erythrocyte distribution width (RBC) [Ratio] 14.1 % Normal 11.5-15.0 [facility] Comment on above: Performed By: #### Chanel ERICKSON, CMP, 1988-02 #### [facility] ([id number]) [address] [place] [address] 97864 #### 59004-7 #### [facility] ([id number]) [address], [address] [place] [address] Hematocrit (Bld) [Volume fraction] 37.3 % Normal 35-47 [facility] Comment on above: Performed By: #### Chanel BCA, CMP, 1988-02 #### [facility] ([id number]) [address] [place] [address] 13257 #### 84975-3 #### [facility] ([id number]) [address], [address] [place] [address] Hemoglobin (Bld) [Mass/Vol] 12.4 g/dL Normal 11.7-15.5 [facility] Comment on above: Performed By: #### Chanel ERICKSON, CMP, 1988-02 #### [facility] ([id number]) [address] [place] [address] 92778 #### 15253-6 #### [facility] ([id number]) [address], [address] [place] [address] Lymphocytes (Bld) [#/Vol] 2.2 10*3/uL Normal 1.0-3.5 [facility] Comment on above: Performed By: #### Chanel BCA, CMP, 1988-02 #### [facility] ([id number]) [address] [place] [address] 90657 #### 62413-7 #### [facility] ([id number]) [address], [address] [place] [address] Lymphocytes/100 WBC (Bld) 15.4 % Normal [facility] Comment on above: Performed By: #### Chanel BCA, CMP, 1988-02 #### [facility] ([id number]) [address] [place] [address] 20415 #### 20268-9 #### [facility] ([id number]) [address], [address] [place] [address] MCH (RBC) [Entitic mass] 29.0 pg Normal 27-34 [facility] Comment on above: Performed By: #### C DRE CMP, 1988-02 #### [facility] ([id number]) [address] [place] [address] 51510 #### 32256-4 #### [facility] ([id number]) [address] [facility], [address] [place] [address] MCHC (RBC) [Mass/Vol] 33.3 g/dL Normal 32-36 [facility] Comment on above: Performed By: #### Chanel ERICKSON [facility], 1988-02 #### [facility] ([id number]) [address] [place] [address] 88833 #### 19254-0 #### [facility] ([id number]) [address] [facility], [address] [place] [address] MCV (RBC) [Entitic vol] 87 fL Normal 80-100 [facility] Comment on above: Performed By: #### C DRE CMP, 1988-02 #### [facility] ([id number]) [address] [place] [address] 26819 #### 64967-4 #### [facility] ([id number]) [address] [place] [address] Monocytes (Bld) [#/Vol] 0.7 10*3/uL Normal 0-0.9 [facility] Comment on above: Performed By: #### C DRE CMP, 1988-02 #### [facility] ([id number]) [address] [place] [address] 02226 #### 74961-1 #### [facility] ([id number]) [address], [address] [place] [address] Monocytes/100 WBC (Bld) 5.3 % Normal [facility] Comment on above: Performed By: #### Chanel ERICKSON CMP, 1988-02 #### [facility] ([id number]) [address] [place] [address] 83020 #### 94567-7 #### [facility] ([id number]) [address] [place] [address] Neutrophils/100 WBC (Bld) 72.6 % Normal [facility] Comment on above: Performed By: #### Chanel ERICKSON CMP, 1988-02 #### [facility] ([id number]) [address] [place] [address] 82363 #### 06287-7 #### [facility] ([id number]) [address] [place] [address] Platelet mean volume (Bld) [Entitic vol] 8.6 fL Normal 7-12 [facility] Comment on above: Performed By: #### Chanel ERICKSON CMP, 1988-02 #### [facility] ([id number]) [address] [place] [address] 66035 #### 82081-9 #### [facility] ([id number]) [address] [place] [address] Platelets (Bld) [#/Vol] 339 10*3/uL Normal 150-450 [facility] Comment on above: Performed By: #### Chanel ERICKSON CMP, 1988-02 #### [facility] ([id number]) [address] [place] [address] 94364 #### 42929-1 #### [facility] ([id number]) [address] [facility], [address] [place] [address] RBC COUNT 4.29 X10E12/L Normal 3.80-5.20 [facility] Comment on above: Performed By: #### C BCA, CMP, 1988-02 #### [facility] ([id number]) [address] [place] [address] 11365 #### 24918-6 #### [facility] ([id number]) [address] [facility], [address] [place] [address] WBC (Bld) [#/Vol] 14.1 10*3/uL High 4.0-11.0 [facility] Comment on above: Performed By: #### Chanel BCA CMP, 1988-02 #### [facility] ([id number]) [address] [place] [address] 87533 #### 56598-7 #### [facility] ([id number]) [address] [place] [address], [address] [place] [address] COMPREHENSIVE METABOLIC PANE Tyrone 12-24-2023 Albumin [Mass/Vol] 3.4 g/dL Normal 3.2-5.3 [facility] Comment on above: Performed By: #### Chanel BCA CMP, 1988-02 #### [facility] ([id number]) [address] [place] [address] 86063 #### 87390-3 #### [facility] ([id number]) [address] [place] [address], [address] [place] [address] ALP [Catalytic activity/Vol] 67 U/L Normal 39-130 [facility] Comment on above: Performed By: #### Chanel BCA, CMP, 1988-02 #### [facility] ([id number]) [address] [place] [address] 53417 #### 09391-6 #### [facility] ([id number]) [address] [place] [address] ALT [Catalytic activity/Vol] 13 U/L Normal 0-31 [facility] Comment on above: Performed By: #### Chanel ERICKSON CMP, 1988-02 #### [facility] ([id number]) [address] [place] [address] 53630 #### 70710-2 #### [facility] ([id number]) [address], [address] [place] [address] Anion gap [Moles/Vol] 11 mmol/L Normal 5-15 [facility] Comment on above: Performed By: #### Chanel ERICKSON [facility], 1988-02 #### [facility] ([id number]) [address] [place] [address] 97909 #### 84211-6 #### [facility] ([id number]) [address], [address] [place] [address] AST [Catalytic activity/Vol] 16 U/L Normal 0-41 [facility] Comment on above: Performed By: #### Chanel ERICKSON [facility], 1988-02 #### [facility] ([id number]) [address] [place] [address] 24157 #### 34060-4 #### [facility] ([id number]) [address] [place] [address] Bilirubin [Mass/Vol] 0.4 mg/dL Normal 0.3-1.2 [facility] Comment on above: Performed By: #### Chanel ERICKSON CMP, 1988-02 #### [facility] ([id number]) [address] [place] [address] 59044 #### 78657-9 #### [facility] ([id number]) [address], [address] [place] [address] Calcium [Mass/Vol] 8.9 mg/dL Normal 8.5-10.5 [facility] Comment on above: Performed By: #### Chanel ERICKSON CMP, 1988-02 #### [facility] ([id number]) [address] [place] [address] 31028 #### 58326-7 #### [facility] ([id number]) [address] [facility], [address] [place] [address] Chloride [Moles/Vol] 99 mmol/L Normal 98-109 [facility] Comment on above: Performed By: #### Chanel ERICKSON CMP, 1988-02 #### [facility] ([id number]) [address] [place] [address] 67644 #### 14212-3 #### [facility] ([id number]) [address] [facility], [address] [place] [address] CO2 [Moles/Vol] 30 mmol/L Normal 22-32 [facility] Comment on above: Performed By: #### Chanel ERICKSON CMP, 1988-02 #### [facility] ([id number]) [address] [place] [address] 21328 #### 64939-9 #### [facility] ([id number]) [address] [facility], [address] [place] [address] Creatinine [Mass/Vol] 0.83 mg/dL Normal 0.40-1.00 [facility] Comment on above: Result Comment: METH OD TRACEABLE TO IDMS STANDARD Performed By: #### C SEAN ERICKSON, 1988-02 #### [facility] ([id number]) [address] [place] [address] 65377 #### 21967-0 #### [facility] ([id number]) [address] [facility], [address] [place] [address] GFR/1.73 sq M.predicted among non-blacks MDRD (S/P/Bld) [Vol rate/Area] 75 mL/min/{1.73_m2} Normal >59 [facility] Comment on above: Result Comment: Reported eGFR is based on the CKD-EPI 2020 equation that does not use a race coefficient. Performed By: #### Chanel ERICKSON CMP, 1988-02 #### [facility] ([id number]) [address] [place] [address] 75450 #### 18554-1 #### [facility] ([id number]) [address], [address] [place] [address] Glucose [Mass/Vol] 137 mg/dL High 65-99 [facility] Comment on above: Performed By: #### Chanel ERICKSON CMP, 1988-02 #### [facility] ([id number]) [address] [place] [address] 45235 #### 89693-1 #### [facility] ([id number]) [address], [address] [place] [address] Potassium [Moles/Vol] 3.8 mmol/L Normal 3.5-5.0 [facility] Comment on above: Performed By: #### Chanel ERICKSON CMP, 1988-02 #### [facility] ([id number]) [address] [place] [address] 73586 #### 06994-4 #### [facility] ([id number]) [address] [place] [address] Protein [Mass/Vol] 7.9 g/dL Normal 6.0-8.0 [facility] Comment on above: Performed By: #### Chanel ERICKSON CMP, 1988-02 #### [facility] ([id number]) [address] [place] [address] 0[address] #### [id number] #### [facility] ([id number]) [address], [address] [place] [address] Sodium [Moles/Vol] 140 mmol/L Normal 134-146 [facility] Comment on above: Performed By: #### Chanel ERICKSON [facility], 1986-02 #### [facility] ([id number]) [address] [place] [address] #### [id number] #### [facility] ([id number]) [address], [address] [place] [address] Urea nitrogen [Mass/Vol] 18 mg/dL Normal 5-27 [facility] Comment on above: Performed By: #### Chanel ERICKSON [facility], 1986-02 #### [facility] ([id number]) [address] [place] [address] #### [id number] #### [facility] ([id number]) [address], [address] [place] [address] Glucose Glucometer (BldC) [M ass/Vol]on 12-24-2023 Glucose [Mass/Vol] 136 mg/dL High 65-99 [facility] Glucose [Mass/Vol] 123 mg/dL High 65-99 [facility] Glucose [Mass/Vol] 152 mg/dL High 65-99 [facility] MAGNESIUMon 12-24-2023 Magnesium [Mass/Vol] 2.2 mg/dL Normal 1.8-2.6 [facility] Comment on above: Performed By: #### Chanel ERICKSON [facility], 1986-02 #### [facility] ([id number]) [address] [place] [address] #### [id number] #### [facility] ([id number]) [address], [address] [place] [address] POTASSIUMon 12-24-2023 Potassium [Moles/Vol] 4.0 mmol/L Normal 3.5-5.0 [facility] Comment on above: Performed By: #### Chanel ERICKSON CMP, 1986-02 #### [facility] ([id number]) [address] [place] [address] #### [id number] #### [facility] ([id number]) [address], [address] [place] [address] PROTIME AND INRon 12-24-2023 INR Coag (PPP) [Relative time] 2.8 {INR} High 0.8-1.1 [facility] Comment on above: Performed By: #### Chanel ERICKSON CMP, 1986-02 #### [facility] ([id number]) [address] [place] [address] #### [id number] #### [facility] ([id number]) [address] [facility], [address] [place] [address] PT Coag (PPP) [Time] 30.9 s High 9.8-13.2 [facility] Comment on above: Result Comment: NEW REFERENCE RANGE Performed By: #### Chanel ERICKSON CMP, 1986-02 #### [facility] ([id number]) [address] [place] [id number] #### 65509-6 #### [facility] ([id number]) [address], [address] [place] [address] Vancomycin trough [Mass/Vol] on 12-24-2023 VANCOMYCIN TROUGH 11.4 ug/mL Normal 5.0-20.0 [facility] Comment on above: Performed By: #### Chanel ERICKSON CMP, 1986-02 #### [facility] ([id number]) [address] [place] [address] 38647 #### 53714-8 #### [facility] ([id number]) [address] [facility], [address] [place] [address] CBC AND AUTO DIFFon 12-23-19 24 ABSOLUTE BASOPHIL 0.1 X10E9/L Normal 0.0-0.2 [facility] Comment on above: Performed By: #### C BCA, PINR, CMP, ####[facility] ([id number])[address] [place] [address] 86660 ABSOLUTE NEUTROPHIL 10.1 X10E9/L High 1.5-6.6 [facility] Comment on above: Performed By: #### C BCA, PINR, CMP, ####[facility] ([id number])[address] [place] [address] 32275 Basophils/100 WBC (Bld) 1.0 % Normal [facility] Comment on above: Performed By: #### C BCA, PINR, CMP, ####[facility] ([id number])[address] [place] [address] 60090 Eosinophils (Bld) [#/Vol] 0.8 10*3/uL High 0.0-0.4 [facility] Comment on above: Performed By: #### C BCA, PINR, CMP, ####[facility] ([id number])[address] [place] [address] 22559 Eosinophils/100 WBC (Bld) 5.8 % Normal [facility] Comment on above: Performed By: #### C BCA, PINR, CMP, ####[facility] ([id number])[address] [place] [address] 12651 Erythrocyte distribution width (RBC) [Ratio] 13.8 % Normal 11.5-15.0 [facility] Comment on above: Performed By: #### C BCA, PINR, CMP, ####[facility] ([id number])[address] [place] [address] 71125 Hematocrit (Bld) [Volume fraction] 36.1 % Normal 35-47 [facility] Comment on above: Performed By: #### C DRE, PINR, CMP, ####[facility] ([id number])[address] [place] [address] 73758 Hemoglobin (Bld) [Mass/Vol] 12.1 g/dL Normal 11.7-15.5 [facility] Comment on above: Performed By: #### C DRE, PINR, CMP, ####[facility] ([id number])[address] [place] [address] 66135 Lymphocytes (Bld) [#/Vol] 2.4 10*3/uL Normal 1.0-3.5 [facility] Comment on above: Performed By: #### Chanel ERICKSON, PINR, CMP, ####[facility] ([id number])[address] [place] [address] 17156 Lymphocytes/100 WBC (Bld) 16.6 % Normal [facility] Comment on above: Performed By: #### Chanel ERICKSON, PINR, CMP, ####[facility] ([id number])[address] [place] [address] 28768 MCH (RBC) [Entitic mass] 29.0 pg Normal 27-34 [facility] Comment on above: Performed By: #### C BCA, PINR, CMP, ####[facility] ([id number])[address] [place] [address] 70018 MCHC (RBC) [Mass/Vol] 33.6 g/dL Normal 32-36 [facility] Comment on above: Performed By: #### C BCA, PINR, CMP, ####[facility] ([id number])[address] [place] [address] 62254 MCV (RBC) [Entitic vol] 86 fL Normal 80-100 [facility] Comment on above: Performed By: #### C BCA, PINR, CMP, ####[facility] ([id number])[address] [place] [address] 05843 Monocytes (Bld) [#/Vol] 1.1 10*3/uL High 0-0.9 [facility] Comment on above: Performed By: #### C BCA, PINR, CMP, ####[facility] ([id number])[address] [place] [address] 55352 Monocytes/100 WBC (Bld) 7.3 % Normal [facility] Comment on above: Performed By: #### Chanel BCA, PINR, CMP, ####[facility] ([id number])[address] [place] [address] 41110 Neutrophils/100 WBC (Bld) 69.3 % Normal [facility] Comment on above: Performed By: #### C BCA, PINR, CMP, ####[facility] ([id number])[address] [place] [address] 96250 Platelet mean volume (Bld) [Entitic vol] 8.5 fL Normal 7-12 [facility] Comment on above: Performed By: #### Chanel BCA, PINR, CMP, ####[facility] ([id number])[address] [place] [address] 23790 Platelets (Bld) [#/Vol] 286 10*3/uL Normal 150-450 [facility] Comment on above: Performed By: #### C BCA, PINR, CMP, ####[facility] ([id number])[address] [place] [address] 84014 RBC COUNT 4.19 X10E12/L Normal 3.80-5.20 [facility] Comment on above: Performed By: #### C BCA, PINR, CMP, 79951-8 ####[facility] ([id number])[address] [place] [address] 99830 WBC (Bld) [#/Vol] 14.6 10*3/uL High 4.0-11.0 [facility] Comment on above: Performed By: #### C BCA, PINR, CMP, 49423-8 ####[facility] ([id number])[address] [place] [address] 58944 COMPREHENSIVE METABOLIC PANE [place] 12-23-2023 Albumin [Mass/Vol] 3.1 g/dL Low 3.2-5.3 [facility] Comment on above: Performed By: #### Chanel ERICKSON CMP, 1986-02 #### [facility] ([id number]) [address] [place] [address] 24640 #### 11419-2 #### [facility] ([id number]) [address] [facility], [address] [place] [address] ALP [Catalytic activity/Vol] 60 U/L Normal 39-130 [facility] Comment on above: Performed By: #### Chanel ERICKSON CMP, 1986-02 #### [facility] ([id number]) [address] [place] [address] 65005 #### 83146-0 #### [facility] ([id number]) [address], [address] [place] [address] ALT [Catalytic activity/Vol] 12 U/L Normal 0-31 [facility] Comment on above: Performed By: #### Chanel ERICKSON CMP, 1986-02 #### [facility] ([id number]) [address] [place] [address] 31308 #### 09229-4 #### [facility] ([id number]) [address], [address] [place] [address] Anion gap [Moles/Vol] 9 mmol/L Normal 5-15 [facility] Comment on above: Performed By: #### Chanel ERICKSON [facility], 1986-02 #### [facility] ([id number]) [address] [place] [address] 47550 #### 05191-3 #### [facility] ([id number]) [address], [address] [place] [address] AST [Catalytic activity/Vol] 14 U/L Normal 0-41 [facility] Comment on above: Performed By: #### Chanel ERICKSON [facility], 1986-02 #### [facility] ([id number]) [address] [place] [address] 37069 #### 11466-3 #### [facility] ([id number]) [address], [address] [place] [address] Bilirubin [Mass/Vol] 0.6 mg/dL Normal 0.3-1.2 [facility] Comment on above: Performed By: #### Chanel ERICKSON [facility], 1986-02 #### [facility] ([id number]) [address] [place] [address] 99691 #### 48997-9 #### [facility] ([id number]) [address], [address] [place] [address] Calcium [Mass/Vol] 8.5 mg/dL Normal 8.5-10.5 [facility] Comment on above: Performed By: #### Chanel ERICKSON CMP, 1986-02 #### [facility] ([id number]) [address] [place] [address] 38473 #### 49442-4 #### [facility] ([id number]) [address], [address] [place] [address] Chloride [Moles/Vol] 99 mmol/L Normal 98-109 [facility] Comment on above: Performed By: #### C DRE [facility], 1986-02 #### [facility] ([id number]) [address] [place] [address] 17721 #### 64990-5 #### [facility] ([id number]) [address], [address] [place] [address] CO2 [Moles/Vol] 28 mmol/L Normal 22-32 [facility] Comment on above: Performed By: #### C DRE [facility], 1986-02 #### [facility] ([id number]) [address] [place] [address] 13985 #### 34476-4 #### [facility] ([id number]) [address], [address] [place] [address] Creatinine [Mass/Vol] 0.75 mg/dL Normal 0.40-1.00 [facility] Comment on above: Result Comment: METH OD TRACEABLE TO IDMS STANDARD Performed By: #### Chanel ERICKSON [facility], 1986-02 #### [facility] ([id number]) [address] [place] [address] 18647 #### 87782-4 #### [facility] ([id number]) [address], [address] [place] [address] GFR/1.73 sq M.predicted among non-blacks MDRD (S/P/Bld) [Vol rate/Area] 85 mL/min/{1.73_m2} Normal >59 [facility] Comment on above: Result Comment: Reported eGFR is based on the CKD-EPI 2020 equation that does not use a race coefficient. Performed By: #### Chanel ERICKSON CMP, 1986-02 #### [facility] ([id number]) [address] [place] [address] 87752 #### 96612-6 #### [facility] ([id number]) [address], [address] [place] [address] Glucose [Mass/Vol] 122 mg/dL High 65-99 [facility] Comment on above: Performed By: #### Chanel ERICKSON CMP, 1986-02 #### [facility] ([id number]) [address] [place] [address] 50401 #### 83728-0 #### [facility] ([id number]) [address], [address] [place] [address] Potassium [Moles/Vol] 3.5 mmol/L Normal 3.5-5.0 [facility] Comment on above: Performed By: #### Chanel ERICKSON CMP, 1986-02 #### [facility] ([id number]) [address] [place] [address] 26385 #### 04897-2 #### [facility] ([id number]) [address], [address] [place] [address] Protein [Mass/Vol] 7.3 g/dL Normal 6.0-8.0 [facility] Comment on above: Performed By: #### Chanel ERICKSON CMP, 1986-02 #### [facility] ([id number]) [address] [place] [address] 99602 #### 03396-0 #### [facility] ([id number]) [address], [address] [place] [address] Sodium [Moles/Vol] 136 mmol/L Normal 134-146 [facility] Comment on above: Performed By: #### Chanel ERICKSON CMP, 1986-02 #### [facility] ([id number]) [address] [place] [address] 71075 #### 02130-0 #### [facility] ([id number]) [address] [facility], [address] [place] [address] Urea nitrogen [Mass/Vol] 15 mg/dL Normal 5-27 [facility] Comment on above: Performed By: #### Chanel ERICKSON [facility], 1986-02 #### [facility] ([id number]) [address] [place] [address] 76208 #### 00559-9 #### [facility] ([id number]) [address] [facility], [address] [place] [address] Glucose Glucometer (BldC) [M ass/Vol]on 12-23-2023 Glucose [Mass/Vol] 158 mg/dL High 65-99 [facility] Glucose [Mass/Vol] 141 mg/dL High 65-99 [facility] HGB A1C (GLYCO-HGB)on 2023 Glucose [Mass/Vol] 140 mg/dL Normal [facility] Comment on above: Performed By: #### Chanel ERICKSON [facility], 1986-02 #### [facility] ([id number]) [address] [place] [address] 47799 #### 80857-2 #### [facility] ([id number]) [address] [facility], [address] [place] [address] HbA1c (Bld) [Mass fraction] 6.5 % High 4.4-5.6 [facility] Comment on above: Result Comment: NOTE ADA Guidelines Result HgbA1c Normal : less than 5.7 % Prediabetes : 5.7 % to 6.4 % Diabetes : > 6.4 % Use with caution in patients with abnormal hemoglobin variants as the half-life of red blood cells and in vivo glycation rates are affected. Performed By: #### Chanel ERICKSON CMP, 1986-02 #### [facility] ([id number]) [address] [place] [address] 90093 #### 20482-0 #### [facility] ([id number]) [address] [facility], [address] [place] [address] MAGNESIUMon 12-23-2023 Magnesium [Mass/Vol] 2.0 mg/dL Normal 1.8-2.6 [facility] Comment on above: Performed By: #### Chanel ERICKSON CMP, 1986-02 #### [facility] ([id number]) [address] [place] [address] 98521 #### 05506-7 #### [facility] ([id number]) [address] [facility], [address] [place] [address] POTASSIUMon 12-23-2023 Potassium [Moles/Vol] 4.4 mmol/L Normal 3.5-5.0 [facility] Comment on above: Performed By: #### Chanel ERICKSON CMP, 1986-02 #### [facility] ([id number]) [address] [place] [address] 28539 #### 53774-1 #### [facility] ([id number]) [address] [facility], [address] [place] [address] PROTIME AND INRon 12-23-2023 INR Coag (PPP) [Relative time] 2.7 {INR} High 0.8-1.1 [facility] Comment on above: Performed By: #### C DELIA ERICKSON CMP, 83499-4 ####[facility] ([id number])[address] [place] [address] 12059 PT Coag (PPP) [Time] 29.9 s High 9.8-13.2 [facility] Comment on above: Result Comment: NEW REFERENCE RANGE Performed By: #### C DRE PINR CMP, 63124-5 ####[facility] ([id number])[address] [place] [address] 83204 CBC AND AUTO DIFFon 03-02-20 24 ABSOLUTE BASOPHIL 0.2 X10E9/L Normal 0.0-0.2 [facility] Comment on above: Performed By: #### P INR, CMP, , CBCA ####[facility] ([id number])[address] [place] [address] 73791 ABSOLUTE NEUTROPHIL 10.5 X10E9/L High 1.5-6.6 [facility] Comment on above: Performed By: #### P INR, CMP, , CBCA ####[facility] ([id number])[address] [place] [address] 71946 Basophils/100 WBC (Bld) 1.0 % Normal [facility] Comment on above: Performed By: #### P INR, CMP, , CBCA ####[facility] ([id number])[address] [place] [address] 53538 Eosinophils (Bld) [#/Vol] 1.1 10*3/uL High 0.0-0.4 [facility] Comment on above: Performed By: #### P INR, CMP, , CBCA ####[facility] ([id number])[address] [place] [address] 90283 Eosinophils/100 WBC (Bld) 6.9 % Normal [facility] Comment on above: Performed By: #### P INR, CMP, , CBCA ####[facility] ([id number])[address] [place] [address] 07668 Erythrocyte distribution width (RBC) [Ratio] 13.7 % Normal 11.5-15.0 [facility] Comment on above: Performed By: #### P INR, CMP, , CBCA ####[facility] ([id number])[address] [place] [address] 22947 Hematocrit (Bld) [Volume fraction] 34.0 % Low 35-47 [facility] Comment on above: Performed By: #### P INR, CMP, , CBCA ####[facility] ([id number])[address] [place] [address] 82301 Hemoglobin (Bld) [Mass/Vol] 11.4 g/dL Low 11.7-15.5 [facility] Comment on above: Performed By: #### P INR, CMP, , CBCA ####[facility] ([id number])[address] [place] [address] 37367 Lymphocytes (Bld) [#/Vol] 3.5 10*3/uL Normal 1.0-3.5 [facility] Comment on above: Performed By: #### P INR, CMP, , CBCA ####[facility] ([id number])[address] [place] [address] 90673 Lymphocytes/100 WBC (Bld) 21.4 % Normal [facility] Comment on above: Performed By: #### P INR, CMP, , CBCA ####[facility] ([id number])[address] [place] [address] 26720 MCH (RBC) [Entitic mass] 29.1 pg Normal 27-34 [facility] Comment on above: Performed By: #### P INR, CMP, , CBCA ####[facility] ([id number])[address] [place] [address] 84342 MCHC (RBC) [Mass/Vol] 33.6 g/dL Normal 32-36 [facility] Comment on above: Performed By: #### P INR, CMP, , CBCA ####[facility] ([id number])[address] [place] [address] 93751 MCV (RBC) [Entitic vol] 87 fL Normal 80-100 [facility] Comment on above: Performed By: #### P INR, CMP, , CBCA ####[facility] ([id number])[address] [place] [address] 57648 Monocytes (Bld) [#/Vol] 0.9 10*3/uL Normal 0-0.9 [facility] Comment on above: Performed By: #### P INR, CMP, , CBCA ####[facility] ([id number])[address] [place] [address] 74867 Monocytes/100 WBC (Bld) 5.8 % Normal [facility] Comment on above: Performed By: #### P INR, CMP, , CBCA ####[facility] ([id number])[address] [place] [address] 23413 Neutrophils/100 WBC (Bld) 64.9 % Normal [facility] Comment on above: Performed By: #### P INR, CMP, , CBCA ####[facility] ([id number])[address] [place] [address] 80169 Platelet mean volume (Bld) [Entitic vol] 8.8 fL Normal 7-12 [facility] Comment on above: Performed By: #### P INR, CMP, , CBCA ####[facility] ([id number])[address] [place] [address] 97018 Platelets (Bld) [#/Vol] 258 10*3/uL Normal 150-450 [facility] Comment on above: Performed By: #### P INR, CMP, , CBCA ####[facility] ([id number])[address] [place] [address] [place] [address] RBC COUNT 3.92 X10E12/L Normal 3.80-5.20 [facility] Comment on above: Performed By: #### P INR, CMP, , CBCA ####[facility] ([id number])[address] [place] [address] 52605 WBC (Bld) [#/Vol] 16.2 10*3/uL High 4.0-11.0 [facility] Comment on above: Performed By: #### P INR, CMP, , CBCA ####[facility] ([id number])[address] [place] [address] 37422 COMPREHENSIVE METABOLIC PANE [place] 12-22-2023 Albumin [Mass/Vol] 3.4 g/dL Normal 3.2-5.3 [facility] Comment on above: Performed By: #### P INR, CMP, , CBCA ####[facility] ([id number])[address] [place] [address] 13868 ALP [Catalytic activity/Vol] 59 U/L Normal 39-130 [facility] Comment on above: Performed By: #### P INR, CMP, , CBCA ####[facility] ([id number])[address] [place] [address] 59508 ALT [Catalytic activity/Vol] 11 U/L Normal 0-31 [facility] Comment on above: Performed By: #### P INR, CMP, , CBCA ####[facility] ([id number])[address] [place] [address] 65563 Anion gap [Moles/Vol] 11 mmol/L Normal 5-15 [facility] Comment on above: Performed By: #### P INR, CMP, , CBCA ####[facility] ([id number])[address] [place] [address] 21392 AST [Catalytic activity/Vol] 14 U/L Normal 0-41 [facility] Comment on above: Performed By: #### P INR, CMP, , CBCA ####[facility] ([id number])[address] [place] [address] 82422 Bilirubin [Mass/Vol] 0.8 mg/dL Normal 0.3-1.2 [facility] Comment on above: Performed By: #### P INR, CMP, , CBCA ####[facility] ([id number])[address] [place] [address] 60884 Calcium [Mass/Vol] 8.5 mg/dL Normal 8.5-10.5 [facility] Comment on above: Performed By: #### P INR, CMP, , CBCA ####[facility] ([id number])[address] [place] [address] 67935 Chloride [Moles/Vol] 98 mmol/L Normal 98-109 [facility] Comment on above: Performed By: #### P INR, CMP, , CBCA ####[facility] ([id number])[address] [place] [address] 28469 CO2 [Moles/Vol] 26 mmol/L Normal 22-32 [facility] Comment on above: Performed By: #### P INR, CMP, , CBCA ####[facility] ([id number])[address] [place] [address] 62127 Creatinine [Mass/Vol] 0.78 mg/dL Normal 0.40-1.00 [facility] Comment on above: Result Comment: METH OD TRACEABLE TO IDMS STANDARD Performed By: #### P INR, CMP, , CBCA ####[facility] ([id number])[address] [place] [address] 10307 GFR/1.73 sq M.predicted among non-blacks MDRD (S/P/Bld) [Vol rate/Area] 81 mL/min/{1.73_m2} Normal >59 [facility] Comment on above: Result Comment: Reported eGFR is based on the CKD-EPI 2020 equation that does not use a race coefficient. Performed By: #### P INR, CMP, , CBCA ####[facility] ([id number])[address] [place] [address] 97940 Glucose [Mass/Vol] 121 mg/dL High 65-99 [facility] Comment on above: Performed By: #### P INR, CMP, , CBCA ####[facility] ([id number])[address] [place] [address] 14572 Potassium [Moles/Vol] 3.5 mmol/L Normal 3.5-5.0 [facility] Comment on above: Performed By: #### P INR, CMP, , CBCA ####[facility] ([id number])[address] [place] [address] 99604 Protein [Mass/Vol] 7.2 g/dL Normal 6.0-8.0 [facility] Comment on above: Performed By: #### P INR, CMP, , CBCA ####[facility] ([id number])[address] [place] [address] 03293 Sodium [Moles/Vol] 135 mmol/L Normal 134-146 [facility] Comment on above: Performed By: #### P INR, CMP, , CBCA ####[facility] ([id number])[address] [place] [address] 95189 Urea nitrogen [Mass/Vol] 15 mg/dL Normal 5-27 [facility] Comment on above: Performed By: #### P INR, CMP, , CBCA ####[facility] ([id number])[address] [place] [address] 69385 Glucose Glucometer (BldC) [M ass/Vol]on 12-22-2023 Glucose [Mass/Vol] 147 mg/dL High 65-99 [facility] Glucose [Mass/Vol] 136 mg/dL High 65-99 [facility] Glucose [Mass/Vol] 120 mg/dL High 65-99 [facility] MAGNESIUMon 12-22-2023 Magnesium [Mass/Vol] 2.0 mg/dL Normal 1.8-2.6 [facility] Comment on above: Performed By: #### P INR, [facility], , CBCA ####[facility] ([id number])[address] [place] [address] 88710 PROTIME AND INRon 12-22-2023 INR Coag (PPP) [Relative time] 2.6 {INR} High 0.8-1.1 [facility] Comment on above: Performed By: #### P INR, [facility], , CBCA ####[facility] ([id number])[address] [place] [address] 86673 PT Coag (PPP) [Time] 29.0 s High 9.8-13.2 [facility] Comment on above: Result Comment: NEW REFERENCE RANGE Performed By: #### P INR, [facility], , CBCA ####[facility] ([id number])[address] [place] [address] 94861 Vancomycin trough [Mass/Vol] on 12-22-2023 VANCOMYCIN TROUGH 15.2 ug/mL Normal 5.0-20.0 [facility] Comment on above: Performed By: #### 4 092-3 ####[facility] ([id number])[address] [place] [address]75 CBC AND AUTO DIFFon 12-21-19 24 ABSOLUTE BASOPHIL 0.1 X10E9/L Normal 0.0-0.2 [facility] Comment on above: Performed By: #### C [facility], [facility], #### [facility] ([id number]) [address] [place] [address] 46092 ABSOLUTE NEUTROPHIL 11.5 X10E9/L High 1.5-6.6 [facility] Comment on above: Performed By: #### C SEAN ERICKSON, [id number] #### [facility] ([id number]) [address] [place] [address] 20650 Basophils/100 WBC (Bld) 0.8 % Normal [facility] Comment on above: Performed By: #### Chanel ERICKSON [facility], 36433-4 #### [facility] ([id number]) [address] [place] [address] 69413 Eosinophils (Bld) [#/Vol] 0.3 10*3/uL Normal 0.0-0.4 [facility] Comment on above: Performed By: #### Chanel ERICKSON [facility], #### [facility] ([id number]) [address] [place] [address] 90024 Eosinophils/100 WBC (Bld) 2.2 % Normal [facility] Comment on above: Performed By: #### Chanel ERICKSON [facility], 73311-6 #### [facility] ([id number]) [address] [place] [address] 02449 Erythrocyte distribution width (RBC) [Ratio] 14.0 % Normal 11.5-15.0 [facility] Comment on above: Performed By: #### Chanel ERICKSON [facility], #### [facility] ([id number]) [address] [place] [address] 43638 Hematocrit (Bld) [Volume fraction] 34.8 % Low 35-47 [facility] Comment on above: Performed By: #### Chanel ERICKSON CMP, 37514-7 #### [facility] ([id number]) [address], [place] [address] Hemoglobin (Bld) [Mass/Vol] 11.4 g/dL Low 11.7-15.5 [facility] Comment on above: Performed By: #### Chanel ERICSKON [facility], #### [facility] ([id number]) [address] [place] [address] 30374 Lymphocytes (Bld) [#/Vol] 2.0 10*3/uL Normal 1.0-3.5 [facility] Comment on above: Performed By: #### Chanel ERICKSON [facility], #### [facility] ([id number]) [address] [place] [address] 94768 Lymphocytes/100 WBC (Bld) 13.2 % Normal [facility] Comment on above: Performed By: #### Chanel ERICKSON [facility], 45886-7 #### [facility] ([id number]) [address] [place] [address] 25311 MCH (RBC) [Entitic mass] 28.5 pg Normal 27-34 [facility] Comment on above: Performed By: #### Chanel ERICSKON [facility], #### [facility] ([id number]) [address] [place] [address] 27669 MCHC (RBC) [Mass/Vol] 32.6 g/dL Normal 32-36 [facility] Comment on above: Performed By: #### Chanel ERICKSON [facility], #### [facility] ([id number]) [address] [place] [address] 42400 MCV (RBC) [Entitic vol] 87 fL Normal 80-100 [facility] Comment on above: Performed By: #### Chanel ERICKSON CMP, #### [facility] ([id number]) [address] [place] [address] 91419 Monocytes (Bld) [#/Vol] 1.3 10*3/uL High 0-0.9 [facility] Comment on above: Performed By: #### C DRE, CMP, 10194-1 #### [facility] ([id number]) [address] [place] [address] 00194 Monocytes/100 WBC (Bld) 8.7 % Normal [facility] Comment on above: Performed By: #### Chanel ERICKSON, CMP, 97617-2 #### [facility] ([id number]) [address] [place] [address] 75636 Neutrophils/100 WBC (Bld) 75.1 % Normal [facility] Comment on above: Performed By: #### Chanel ERICKSON, CMP, 57701-8 #### [facility] ([id number]) [address] [place] [address] 00030 Platelet mean volume (Bld) [Entitic vol] 8.8 fL Normal 7-12 [facility] Comment on above: Performed By: #### Chanel BCA, CMP, 53248-4 #### [facility] ([id number]) [address] [place] [address] 79184 Platelets (Bld) [#/Vol] 257 10*3/uL Normal 150-450 [facility] Comment on above: Performed By: #### Chanel ERICKSON, CMP, 19744-9 #### [facility] ([id number]) [address] [place] [address] 74011 RBC COUNT 3.98 X10E12/L Normal 3.80-5.20 [facility] Comment on above: Performed By: #### Chanel BCA, CMP, 48236-6 #### [facility] ([id number]) [address] [place] [address] 01772 WBC (Bld) [#/Vol] 15.3 10*3/uL High 4.0-11.0 [facility] Comment on above: Performed By: #### Chanel BCA, CMP, #### [facility] ([id number]) [address] [place] [address] [place] [address] COMPREHENSIVE METABOLIC PANE Tyrone 12-21-2023 Albumin [Mass/Vol] 3.3 g/dL Normal 3.2-5.3 [facility] Comment on above: Performed By: #### C BCA, CMP, 57861-4 ####[facility] ([id number])[address] [place] [address] [place] [address] ALP [Catalytic activity/Vol] 59 U/L Normal 39-130 [facility] Comment on above: Performed By: #### C BCA, CMP, ####[facility] ([id number])[address] [place] [address] 53465 ALT [Catalytic activity/Vol] 13 U/L Normal 0-31 [facility] Comment on above: Performed By: #### C BCA, CMP, ####[facility] ([id number])[address] [place] [address] [place] [address] Anion gap [Moles/Vol] 11 mmol/L Normal 5-15 [facility] Comment on above: Performed By: #### C BCA, CMP, ####[facility] ([id number])[address] [place] [address] 60256 AST [Catalytic activity/Vol] 11 U/L Normal 0-41 [facility] Comment on above: Performed By: #### C BCA, CMP, ####[facility] ([id number])[address] [place] [address] 90302 Bilirubin [Mass/Vol] 1.0 mg/dL Normal 0.3-1.2 [facility] Comment on above: Performed By: #### C BCA, CMP, ####[facility] ([id number])[address], [place] [address] Calcium [Mass/Vol] 8.5 mg/dL Normal 8.5-10.5 [facility] Comment on above: Performed By: #### C DRE [facility], ####[facility] ([id number])[address] [place] [address] 57426 Chloride [Moles/Vol] 101 mmol/L Normal 98-109 [facility] Comment on above: Performed By: #### C DRE [facility], ####[facility] ([id number])[address] [place] [address] 11512 CO2 [Moles/Vol] 25 mmol/L Normal 22-32 [facility] Comment on above: Performed By: #### C SEAN ERICKSON, ####[facility] ([id number])[address] [place] [address] 92932 Creatinine [Mass/Vol] 0.66 mg/dL Normal 0.40-1.00 [facility] Comment on above: Result Comment: METH OD TRACEABLE TO IDMS STANDARD Performed By: #### C DRE [facility], ####[facility] ([id number])[address] [place] [address]11 eGFR (CKD-EPI) NON-RACE DEPENDENT >90 Normal >59 [facility] Comment on above: Result Comment: Reported eGFR is based on the CKD-EPI 2021 equation that does not use a race coefficient. Performed By: #### C SEAN ERICKSON, ####[facility] ([id number])[address] [place] [address] 50025 Glucose [Mass/Vol] 132 mg/dL High 65-99 [facility] Comment on above: Performed By: #### C SEAN ERICKSON, ####[facility] ([id number])[address] [place] [address] 90559 Potassium [Moles/Vol] 3.5 mmol/L Normal 3.5-5.0 [facility] Comment on above: Performed By: #### C DRE [facility], ####[facility] ([id number])[address] [place] [address] 00824 Protein [Mass/Vol] 7.0 g/dL Normal 6.0-8.0 [facility] Comment on above: Performed By: #### Chanel ERICKSON [facility], ####[facility] ([id number])[address] [place] [address] 70774 Sodium [Moles/Vol] 137 mmol/L Normal 134-146 [facility] Comment on above: Performed By: #### C SEAN ERICKSON, ####[facility] ([id number])[address] [place] [address] 57093 Urea nitrogen [Mass/Vol] 15 mg/dL Normal 5-27 [facility] Comment on above: Performed By: #### Chanel ERICKSON [facility], 23866-8 ####[facility] ([id number])[address] [place] [address] 66351 Glucose Glucometer (BldC) [M ass/Vol]on 12-21-2023 Glucose [Mass/Vol] 130 mg/dL High 65-99 [facility] Glucose [Mass/Vol] 153 mg/dL High 65-99 [facility] Glucose [Mass/Vol] 206 mg/dL High 65-99 [facility] MAGNESIUMon 12-21-2023 Magnesium [Mass/Vol] 2.2 mg/dL Normal 1.8-2.6 [facility] Comment on above: Performed By: #### C DRE [facility], ####[facility] ([id number])[address] [place] [address] 61209 MR FOOT LT W WO CONTon 12-20 [...] Garcia MD on 12/21/2023 1:06 PM Normal [facility] POTASSIUMon 12-21-2023 Potassium [Moles/Vol] 3.8 mmol/L Normal 3.5-5.0 [facility] Comment on above: Performed By: #### 2 823-3 ####[facility] ([id number])[address] [place] [address] 66331 PROTIME AND INRon 12-21-2023 INR Coag (PPP) [Relative time] 2.4 {INR} High 0.8-1.1 [facility] Comment on above: Performed By: #### P INR ####[facility] ([id number])[address] [place] [address] 16936 PT Coag (PPP) [Time] 27.0 s High 9.8-13.2 [facility] Comment on above: Result Comment: NEW REFERENCE RANGE Performed By: #### P INR ####[facility] ([id number])[address] [place] [address] 16740 BLOOD CULTUREon 02-29-2024 Bacteria identified Aer cx Nom (Bld) SPECIMEN NOTES RSURFACE VEIN CULTURE RESULTS NO GROWTH 5 DAYS Normal [facility] Comment on above: Performed By: #### 1 7928-3 ####[facility] ([id number])[address] [place] [address] 09546 Bacteria identified Aer cx Nom (Bld) SPECIMEN NOTES SUBOPTIMAL VOLUME OF BLOOD COLLECTED, RESULTS MAY BE AFFECTED. CULTURE RESULTS NO GROWTH 5 DAYS Normal [facility] Comment on above: Performed By: #### 1 7928-3 ####[facility] ([id number])[address], [address], [place] [address] CBC AND AUTO DIFFon 12-20-19 24 ABSOLUTE BASOPHIL 0.1 X10E9/L Normal 0.0-0.2 [facility] Comment on above: Performed By: #### Chanel ERICKSON [facility], 1986-02 #### [facility] ([id number]) [address] [place] [address] 69966 #### 13648-8 #### [facility] ([id number]) [address], [address] [place] [address] ABSOLUTE NEUTROPHIL 12.0 X10E9/L High 1.5-6.6 [facility] Comment on above: Performed By: #### Chanel ERICKSON CMP, 1986-02 #### [facility] ([id number]) [address] [place] [address] 30721 #### 01024-5 #### [facility] ([id number]) [address], [address] [place] [address] Basophils/100 WBC (Bld) 0.5 % Normal [facility] Comment on above: Performed By: #### Chanel ERICKSON CMP, 1986-02 #### [facility] ([id number]) [address] [place] [address] 33170 #### 56438-2 #### [facility] ([id number]) [address], [address] [place] [address] Eosinophils (Bld) [#/Vol] 0.3 10*3/uL Normal 0.0-0.4 [facility] Comment on above: Performed By: #### Chanel ERICKSON CMP, 1986-02 #### [facility] ([id number]) [address] [place] [address] 46266 #### 10821-2 #### [facility] ([id number]) [address], [address] [place] [address] Eosinophils/100 WBC (Bld) 2.0 % Normal [facility] Comment on above: Performed By: #### Chanel ERICKSON [facility], 1986-02 #### [facility] ([id number]) [address] [place] [address] 46588 #### 31899-3 #### [facility] ([id number]) [address], [address] [place] [address] Erythrocyte distribution width (RBC) [Ratio] 14.0 % Normal 11.5-15.0 [facility] Comment on above: Performed By: #### Chanel ERICKSON [facility], 1986-02 #### [facility] ([id number]) [address] [place] [address] 45736 #### 47427-4 #### [facility] ([id number]) [address], [address] [place] [address] Hematocrit (Bld) [Volume fraction] 36.1 % Normal 35-47 [facility] Comment on above: Performed By: #### Chanel ERICKSON CMP, 1986-02 #### [facility] ([id number]) [address] [place] [address] 80964 #### 94662-6 #### [facility] ([id number]) [address], [address] [place] [address] Hemoglobin (Bld) [Mass/Vol] 12.1 g/dL Normal 11.7-15.5 [facility] Comment on above: Performed By: #### Chanel ERICKSON CMP, 1986-02 #### [facility] ([id number]) [address] [place] [address] 92178 #### 36357-1 #### [facility] ([id number]) [address], [address] [place] [address] Lymphocytes (Bld) [#/Vol] 2.4 10*3/uL Normal 1.0-3.5 [facility] Comment on above: Performed By: #### Chanel ERICKSON [facility], 1986-02 #### [facility] ([id number]) [address] [place] [address] 22421 #### 79685-8 #### [facility] ([id number]) [address], [address] [place] [address] Lymphocytes/100 WBC (Bld) 14.9 % Normal [facility] Comment on above: Performed By: #### Chanel ERICKSON [facility], 1986-02 #### [facility] ([id number]) [address] [place] [address] 16646 #### 10518-5 #### [facility] ([id number]) [address], [address] [place] [address] MCH (RBC) [Entitic mass] 28.9 pg Normal 27-34 [facility] Comment on above: Performed By: #### Chanel ERICKSON CMP, 1986-02 #### [facility] ([id number]) [address] [place] [address] 41490 #### 74938-6 #### [facility] ([id number]) [address], [address] [place] [address] MCHC (RBC) [Mass/Vol] 33.5 g/dL Normal 32-36 [facility] Comment on above: Performed By: #### Chanel ERICKSON CMP, 1986-02 #### [facility] ([id number]) [address] [place] [address] 44006 #### 71121-3 #### [facility] ([id number]) [address], [address] [place] [address] MCV (RBC) [Entitic vol] 86 fL Normal 80-100 [facility] Comment on above: Performed By: #### Chanel ERICKSON CMP, 1986-02 #### [facility] ([id number]) [address] [place] [address] 20220 #### 86715-6 #### [facility] ([id number]) [address], [address] [place] [address] Monocytes (Bld) [#/Vol] 1.5 10*3/uL High 0-0.9 [facility] Comment on above: Performed By: #### Chanel ERICKSON CMP, 1986-02 #### [facility] ([id number]) [address] [place] [address] 28683 #### 25683-5 #### [facility] ([id number]) [address], [address] [place] [address] Monocytes/100 WBC (Bld) 9.3 % Normal [facility] Comment on above: Performed By: #### Chanel ERICKSON CMP, 1986-02 #### [facility] ([id number]) [address] [place] [address] 19699 #### 29942-6 #### [facility] ([id number]) [address], [address] [place] [address] Neutrophils/100 WBC (Bld) 73.3 % Normal [facility] Comment on above: Performed By: #### Chanel BCA, CMP, 1986-02 #### [facility] ([id number]) [address] [place] [address] 23957 #### 40622-9 #### [facility] ([id number]) [address] [place] [address] Platelet mean volume (Bld) [Entitic vol] 8.4 fL Normal 7-12 [facility] Comment on above: Performed By: #### Chanel ERICKSON, CMP, 1986-02 #### [facility] ([id number]) [address] [place] [address] 56489 #### 54990-1 #### [facility] ([id number]) [address] [place] [address] Platelets (Bld) [#/Vol] 282 10*3/uL Normal 150-450 [facility] Comment on above: Performed By: #### Chanel ERICKSON, CMP, 1986-02 #### [facility] ([id number]) [address] [place] [address] 04034 #### 58103-5 #### [facility] ([id number]) [address] [place] [address] RBC COUNT 4.18 X10E12/L Normal 3.80-5.20 [facility] Comment on above: Performed By: #### Chanel ERICKSON, CMP, 1986-02 #### [facility] ([id number]) [address] [place] [address] 72800 #### 15493-5 #### [facility] ([id number]) [address], [address] [place] [address] WBC (Bld) [#/Vol] 16.4 10*3/uL High 4.0-11.0 [facility] Comment on above: Performed By: #### C BCA, CMP, 1988-02 #### [facility] ([id number]) [address] [place] [address] 25360 #### 61684-2 #### [facility] ([id number]) [address] [place] [address] COMPREHENSIVE METABOLIC PANE Tyrone 12-20-2023 Albumin [Mass/Vol] 3.7 g/dL Normal 3.2-5.3 [facility] Comment on above: Performed By: #### C BCA, CMP, 1988-02 #### [facility] ([id number]) [address] [place] [address] 63753 #### 74510-2 #### [facility] ([id number]) [address], [address] [place] [address] ALP [Catalytic activity/Vol] 74 U/L Normal 39-130 [facility] Comment on above: Performed By: #### C BCA, CMP, 1988-02 #### [facility] ([id number]) [address] [place] [address] 10282 #### 66585-3 #### [facility] ([id number]) [address] [place] [address] ALT [Catalytic activity/Vol] 15 U/L Normal 0-31 [facility] Comment on above: Performed By: #### C BCA, CMP, 1988-02 #### [facility] ([id number]) [address] [place] [address] 58137 #### 37701-8 #### [facility] ([id number]) [address] [place] [address] Anion gap [Moles/Vol] 6 mmol/L Normal 5-15 [facility] Comment on above: Performed By: #### C BCA, CMP, 1988-02 #### [facility] ([id number]) [address] [place] [address] 63899 #### 20829-6 #### [facility] ([id number]) [address] [place] [address] AST [Catalytic activity/Vol] 17 U/L Normal 0-41 [facility] Comment on above: Performed By: #### Chanel ERICKSON CMP, 1986-02 #### [facility] ([id number]) [address] [place] [address] 91161 #### 24102-0 #### [facility] ([id number]) [address] [facility], [address] [place] [address] Bilirubin [Mass/Vol] 0.4 mg/dL Normal 0.3-1.2 [facility] Comment on above: Performed By: #### Chanel ERICKSON CMP, 1986-02 #### [facility] ([id number]) [address] [place] [address] 56273 #### 54444-1 #### [facility] ([id number]) [address] [facility], [address] [place] [address] Calcium [Mass/Vol] 8.3 mg/dL Low 8.5-10.5 [facility] Comment on above: Performed By: #### Chanel ERICKSON CMP, 1986-02 #### [facility] ([id number]) [address] [place] [address] 02911 #### 36160-4 #### [facility] ([id number]) [address] [place] [address] Chloride [Moles/Vol] 101 mmol/L Normal 98-109 [facility] Comment on above: Performed By: #### Chanel BCA CMP, 1988-02 #### [facility] ([id number]) [address] [place] [address] #### 11811-5 #### [facility] ([id number]) [address] [facility], [address] [place] [address] CO2 [Moles/Vol] 26 mmol/L Normal 22-32 [facility] Comment on above: Performed By: #### Chanel ERICKSON CMP, 1986-02 #### [facility] ([id number]) [address] [place] [address] 69047 #### 29898-4 #### [facility] ([id number]) [address] [facility], [address] [place] [address] Creatinine [Mass/Vol] 0.69 mg/dL Normal 0.40-1.00 [facility] Comment on above: Result Comment: METH OD TRACEABLE TO IDMS STANDARD Performed By: #### Chanel ERICKSON CMP, 1986-02 #### [facility] ([id number]) [address] [place] [address] 17298 #### 64200-0 #### [facility] ([id number]) [address] [place] [address], [address] [address] eGFR (CKD-EPI) NON-RACE DEPENDENT >90 Normal >59 [facility] Comment on above: Result Comment: Reported eGFR is based on the CKD-EPI 2020 equation that does not use a race coefficient. Performed By: #### Chanel ERICKSON CMP, 1986-02 #### [facility] ([id number]) [address] [place] [address] 88870 #### 47396-2 #### [facility] ([id number]) [address] [facility], [address] [place] [address] Glucose [Mass/Vol] 132 mg/dL High 65-99 [facility] Comment on above: Performed By: #### Chanel ERICKSON CMP, 1986-02 #### [facility] ([id number]) [address] [place] [address] 13071 #### 81181-9 #### [facility] ([id number]) [address] [place] [address] Potassium [Moles/Vol] 3.8 mmol/L Normal 3.5-5.0 [facility] Comment on above: Performed By: #### Chanel ERICKSON CMP, 1986-02 #### [facility] ([id number]) [address] [place] [address] 28806 #### 66194-1 #### [facility] ([id number]) [address] [place] [address] Protein [Mass/Vol] 7.9 g/dL Normal 6.0-8.0 [facility] Comment on above: Performed By: #### Chanel ERICKSON CMP, 1986-02 #### [facility] ([id number]) [address] [place] [address] 51299 #### 78068-8 #### [facility] ([id number]) [address] [place] [address] Sodium [Moles/Vol] 133 mmol/L Low 134-146 [facility] Comment on above: Performed By: #### Chanel ERICKSON CMP, 1986-02 #### [facility] ([id number]) [address] [place] [address] 62363 #### 50700-0 #### [facility] ([id number]) [address] [place] [address] Urea nitrogen [Mass/Vol] 16 mg/dL Normal 5-27 [facility] Comment on above: Performed By: #### Chanel ERICKSON CMP, 1986-02 #### [facility] ([id number]) [address] [place] [address] 20296 #### 64219-6 #### [facility] ([id number]) [address] [place] [address] CRP [Mass/Vol]on 12-20-2023 C REACTIVE PROTEIN 11.8 mg/dL High 0.000-0.744 [facility] Comment on above: Performed By: #### C DRE [facility], 1988-02 #### [facility] ([id number]) [address] [place] [address] 21660 #### 07251-2 #### [facility] ([id number]) [address] [place] [address] ESR Photometric method (Bld) [Velocity]on 12-20-2023 ESR, ERYTHROCYTE SEDIMENTATION RATE 60 mm/h High 0-30 [facility] Comment on above: Performed By: #### Chanel ERICKSON [facility], 1986-02 #### [facility] ([id number]) [address] [place] [address] 10362 #### 08641-6 #### [facility] ([id number]) [address], [address] [place] [address] Glucose Glucometer (BldC) [M ass/Vol]on 12-20-2023 Glucose [Mass/Vol] 174 mg/dL High 65-99 [facility] URINALYSISon 12-20-2023 Bilirubin Ql (U) Negative Normal NEG [facility] Comment on above: Performed By: #### U A #### [facility] ([id number]) [address] [place] [id number] BLOOD/HGB Negative Normal NEG [facility] Comment on above: Performed By: #### U A #### [facility] ([id number]) [address] [place] [address] Color (U) YELLOW Normal YELLOW [facility] Comment on above: Performed By: #### U A #### [facility] ([id number]) [address] [place] [id number] Glucose Ql (U) Negative Normal NEG [facility] Comment on above: Performed By: #### U A #### [facility] ([id number]) [address] [place] [address]46 Ketones Ql (U) Negative Normal NEG [facility] Comment on above: Performed By: #### U A #### [facility] ([id number]) [address] [place] [address] Leukocyte esterase Test strip Ql (U) Negative Normal NEG [facility] Comment on above: Performed By: #### U A #### [facility] ([id number]) [address] [place] [address] Nitrite Ql (U) Positive Abnormal NEG [facility] Comment on above: Performed By: #### U A #### [facility] ([id number]) [address] [place] [address] 10763 pH (U) 6.0 [pH] Normal 5.0-8.5 [facility] Comment on above: Performed By: #### U A #### [facility] ([id number]) [address] [place] [id number] Protein Ql (U) Negative Normal NEG [facility] Comment on above: Performed By: #### U A #### [facility] ([id number]) [address] [place] [address] [place] [address] R.B.CELLS 0 /hpf Normal 0-5 [facility] Comment on above: Performed By: #### U A #### [facility] ([id number]) [address] [place] [id number] Specific gravity (U) [Rel density] 1.015 Normal 1.003-1.035 [facility] Comment on above: Performed By: #### U A #### [facility] ([id number]) [address] [place] [address] SQUAMOUS EPITHELIUM 0 to 3 Normal 0-5 [facility] Comment on above: Performed By: #### U A #### [facility] ([id number]) [address] [place] [address] TURBIDITY CLEAR Normal CLEAR [facility] Comment on above: Performed By: #### U A #### [facility] ([id number]) [address] [place] [address] Urobilinogen Qn (U) 0.2 {Mindy'U}/dL Normal <1.1 [facility] Comment on above: Performed By: #### U A #### [facility] ([id number]) [address] [place] [address] W.B.CELLS 0 to 1 Normal 0-5 [facility] Comment on above: Performed By: #### U A #### [facility] ([id number]) [address] [place] [address]2228 XR FOOT LT MIN 3 VWSon XR [...] Bradshaw MD on 12/20/2023 6:37 PM Normal [facility] XR FOOT RT MIN 3 VWSon XR [...] Mehul Bradshaw MD on 12/20/2023 5:56 PM Normal [facility] XR KNEE RT 3 [facility] XR KNEE RT 3 VWS XR KNEE RT 3 VWS XR KNEE RT 3 VWS CLINICAL INFORMATION: Right knee pain. Fall. Pain. COMPARISON: None. IMPRESSION: * No evidence of acute fracture. 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 No large joint effusion. Osteopenia. Finalized by Andreas Araujo MD on 12/20/2023 5:05 PM [facility] 36on 11-16-2023 36 Please let her know her cholesterol levels look good. Continue pravastatin. Thanks Normal [facility] Telephoneon 11-16-2023 Telephone [id number] Maximo Gill 1950 F Date Provider Department Center 11/16/2023 GinnaEBER JOSHUA [facility] Family History Problem Relation Age of Onset Heart attack Father Diabetes Father Hypertension Father Coronary artery disease Father Rheum arthritis Father Family Status - Relation Status Age at Father Normal [facility] 37on 11-01-2023 37 *Increase amlodipine to 10mg daily. You can take 2 tablets of your current 5mg prescription daily until this runs out then start new prescription of 1 - 10mg tablet daily. *Monitor your blood pressure daily 1-2 hours after medications *Have labs drawn *Follow-up with GI given dark stools Normal [facility] Office Visiton 11-01-2023 Follow-up visit [id number] Maximo Gill Kassy 1950 F Date Provider Department Center 11/01/2023 EBER PAGAN Family History Problem Relation Age of Onset Heart attack Father Diabetes Father Hypertension Father Coronary artery disease Father Rheum arthritis Father Family Status - Relation Status Age at Father Level of Service:31870 [place] OFFICE/OUTPATIENT ESTABLISHED MOD MDM 30 MIN Reason for Visit and Comments: Atrial Fibrillation [80] Congestive Heart Failure [127] Normal [facility] Office Visiton 05-23-2023 Follow-up visit [id number] Maximo Gill Kassy 1950 F Date Provider Department Center 05/23/2023 RAMAN CASTANEDA CHING Sal[facility] Family History Problem Relation Age of Onset Heart attack Father Diabetes Father Hypertension Father Coronary artery disease Father Rheum arthritis Father Family Status - Relation Status Age at Father Level of Service:49392 [place] OFFICE/OUTPATIENT ESTABLISHED LOW MDM 20-29 MIN Normal [facility] CBC AUTO DIFFon 03-02-2023 BASO # 0.1 103/ul Normal 0.0-0.1 [facility] Comment on above: Performed By: #### C BC #### [facility] [address] [address] [address] Yandy Rodarte Basophils/100 WBC (Bld) 0.4 % Normal 0.2-2.0 [facility] Comment on above: Performed By: #### C BC #### [facility] [address] [address] [address] Yandy Rodarte EO # 0.5 103/ul Normal 0.0-0.7 [facility] Comment on above: Performed By: #### C BC #### [facility] [address] [place] [address] Dr. Yandy Rodarte Eosinophils/100 WBC (Bld) 4.1 % Normal 0.9-7.0 [facility] Comment on above: Performed By: #### C BC #### [facility] [address] [place] [address] Dr. Yandy Rodarte Erythrocyte distribution width (RBC) [Ratio] 14.0 % Normal 11.0-15.0 [facility] Comment on above: Performed By: #### C BC #### [facility] [address] [place] [address] Dr. Yandy Rodarte Hematocrit (Bld) [Volume fraction] 42.8 % Normal 36.0-48.0 [facility] Comment on above: Performed By: #### C BC #### [facility] [address] [place] [address] Dr. Yandy Rodarte Hemoglobin (Bld) [Mass/Vol] 13.6 g/dL Normal 12.0-16.0 [facility] Comment on above: Performed By: #### C BC #### [facility] [address] [place] [address] Dr. Yandy Rodarte IG # 0.04 10e3/ul Critically high 0.00-0.03 [facility] Comment on above: Performed By: #### C BC #### [facility] [address] [place] [address] Dr. Yandy Rodarte IG % 0.4 % Normal 0.0-0.5 [facility] Comment on above: Performed By: #### C BC #### [facility] [address] [place] [address] Dr. Yandy Rodarte LYMPH # 2.2 103/ul Normal 1.2-3.8 [facility] Comment on above: Performed By: #### C BC #### [facility] [address] [place] [address] Dr. Yandy Rodarte Lymphocytes/100 WBC (Bld) 20.0 % Critically low 20.5-60.0 [facility] Comment on above: Performed By: #### C BC #### [facility] [address] [place] [address] Dr. Yandy Rodarte MANUAL DIFF REQ NO Normal [facility] Comment on above: Performed By: #### C BC #### [facility] [address] [place] [address] Dr. Yandy Rodarte MCH (RBC) [Entitic mass] 28.2 pg Normal 26.7-34.0 [facility] Comment on above: Performed By: #### C BC #### [facility] [address] [place] [address] Dr. Yandy Rodarte MCHC (RBC) [Mass/Vol] 31.8 g/dL Normal 29.9-35.2 [facility] Comment on above: Performed By: #### C BC #### [facility] [address] [place] [address] Dr. Yandy Rodarte MCV (RBC) [Entitic vol] 88.8 fL Normal 81.0-99.0 [facility] Comment on above: Performed By: #### C BC #### [facility] [address] [place] [address] Dr. Yandy Rodarte MONO # 0.7 103/ul Normal 0.3-0.8 [facility] Comment on above: Performed By: #### C BC #### [facility] [address] [place] [address] Dr. Yandy Rodarte Monocytes/100 WBC (Bld) 6.3 % Normal 1.7-12.0 [facility] Comment on above: Performed By: #### C BC #### [facility] [address] [place] [address] Dr. Yandy Rodarte NEUT # 7.7 103/ul Critically high 1.4-6.5 [facility] Comment on above: Performed By: #### C BC #### [facility] [address] [place] [address] Dr. Yandy Rodarte Neutrophils/100 WBC (Bld) 68.8 % Normal 43.0-75.0 [facility] Comment on above: Performed By: #### C BC #### [facility] [address] [place], [place] [address] Dr. Yandy Rodarte Platelet mean volume (Bld) [Entitic vol] 9.8 fL Normal 9.5-13.5 [facility] Comment on above: Performed By: #### C BC #### [facility] [address] [address] [address] Yandy Rodarte PLT 259 103/ul Normal 150-450 [facility] Comment on above: Performed By: #### C BC #### [facility] [address] [address] [address] Yandy Rodarte RBC 4.82 106/ul Normal 4.20-5.40 [facility] Comment on above: Performed By: #### C BC #### [facility] [id number] Yandy Rodarte WBC 11.2 103/ul Critically high 4.0-11.0 [facility] Comment on above: Performed By: #### C BC #### [facility] [address] [place] [address] Dr. Yandy Rodarte ECHOCARDIO M/2D COMPLETEon 0 03-02-2023 ECHOCARDIO M/2D COMPLETE Patient: AFIA GILL Exam Date: 03/02/2023 : 1950 Gender:F Ordering : MRS. JESSICA PRECIADO [employer] Admission #: [id number] Family : Order #: [id number] CLICK HERE TO VIEW EXAM ECHOCARDIOGRAM REPORT [...] Left Atrium LA Volume Index (2D A2C): 265617 mm3 Left Atrium Systolic Dimension: 3.80 cm [...] Gomez M.D. on 03/02/2023 at 19:19 Normal [facility] LIPID PROFILEon 03-02-2023 CHOL-HDL RATIO NORM SEE BELOW Normal [facility] Comment on above: Result Comment: 3.3 - 4.4 LOW RISK 4.4 - 7.1 AVERAGE RISK 7.1 - 11.0 MODERATE RISK >11.0 HIGH RISK Performed By: #### L IPID, CMP #### [facility] [address] [place] [address] Dr. Yandy Rodarte Cholesterol [Mass/Vol] 203 mg/dL Critically high <=200 [facility] Comment on above: Performed By: #### L IPID, CMP #### [facility] [address] [address] [address] Yandy Rodarte Cholesterol in HDL [Mass/Vol] 35 mg/dL Critically low 40-60 [facility] Comment on above: Performed By: #### L IPID, CMP #### [facility] [address] [place] [address] Dr. Yandy Rodarte Cholesterol in LDL [Mass/Vol] 123.0 mg/dL Normal [facility] Comment on above: Performed By: #### L IPID, CMP #### [facility] [address] [place] [address] Dr. Yandy Rodarte Cholesterol.total/C holesterol in HDL [Mass ratio] 5.8 {ratio} Normal [facility] Comment on above: Performed By: #### L IPID, CMP #### [facility] [address] [place] [address] Dr. Yandy Rodarte HDL NORMAL > or = 60 mg/dl - LO W CARDIOVASCULAR RISK <40 mg/dl - HIGH CARDIOVASCULAR RISK Normal [facility] Comment on above: Performed By: #### L IPID, CMP #### [facility] [address] [place] [address] Dr. Yandy Rodarte LDL CALC NORMAL SEE BELOW Normal [facility] Comment on above: Result Comment: <100 mg/dl OPTIMAL 100 - 129 mg/dl NEAR OR ABOVE OPTIMAL 130 - 159 mg/dl BORDERLINE HIGH 160 - 189 mg/dl HIGH >190 mg/dl VERY HIGH Performed By: #### L IPID, CMP #### [facility] [address] [place] [address] Dr. Yandy Rodarte Triglyceride [Mass/Vol] 225 mg/dL Critically high <=150 [facility] Comment on above: Performed By: #### L IPID, CMP #### [facility] [address] [address] [address] Yandy Rodarte VLDL CALC 45.0 mg/dL Normal [facility] Comment on above: Performed By: #### L IPID, CMP #### [facility] [address] [address] [address] Yandy Rodarte PROF 14(COMP METB)on 023 Albumin [Mass/Vol] 3.5 g/dL Normal 3.4-5.0 [facility] Comment on above: Performed By: #### L IPID, CMP #### [facility] [address] [address] [address] Yandy Rodarte Albumin/Globulin [Mass ratio] 0.8 {ratio} Normal [facility] Comment on above: Performed By: #### L IPID, CMP #### [facility] [address] [address] [address] Yandy Rodarte ALP [Catalytic activity/Vol] 100 U/L Normal 46-116 [facility] Comment on above: Performed By: #### L IPID, CMP #### [facility] [address] [address] [address] Yandy Rodarte ALT [Catalytic activity/Vol] 22 U/L Normal 14-59 [facility] Comment on above: Performed By: #### L IPID, CMP #### [facility] [address] [address] [address] Yandy Rodarte Anion gap [Moles/Vol] 8.9 mmol/L Normal [facility] Comment on above: Performed By: #### L IPID, CMP #### [facility] [address] [address] [address] Yandy Rodarte AST [Catalytic activity/Vol] 17 U/L Normal 15-37 [facility] Comment on above: Performed By: #### L IPID, CMP #### [facility] [address] [place] [address] Dr. Yandy Rodarte Bilirubin [Mass/Vol] 0.4 mg/dL Normal 0.2-1.0 [facility] Comment on above: Performed By: #### L IPID, CMP #### [facility] [address] [address] [address] Yandy Rodarte Calcium [Mass/Vol] 9.2 mg/dL Normal 8.5-10.1 [facility] Comment on above: Performed By: #### L IPID, CMP #### [facility] [address] [address] [address] Yandy Rodarte Chloride [Moles/Vol] 104 mmol/L Normal 98-107 [facility] Comment on above: Performed By: #### L IPID, CMP #### [facility] [address] [place] [address] Dr. Yandy Rodarte CO2 [Moles/Vol] 32.6 mmol/L Critically high 21.0-32.0 [facility] Comment on above: Performed By: #### L IPID, CMP #### [facility] [address] [place] [address] Dr. Yandy Rodarte Creatinine [Mass/Vol] 0.81 mg/dL Normal 0.55-1.02 [facility] Comment on above: Performed By: #### L IPID, CMP #### [facility] [address] [place] [address] Dr. Yandy Rodarte EGFR-AF COMORAN >60 Normal >=60 [facility] Comment on above: Performed By: #### L IPID, CMP #### [facility] [address] [place] [address] Dr. Yandy Rodarte EGFR-NON AF COMORAN >60 Normal >=60 [facility] Comment on above: Performed By: #### L IPID, CMP #### [facility] [address] [place] [address] Dr. Yandy Rodarte Globulin (S) [Mass/Vol] 4.6 g/dL Normal [facility] Comment on above: Performed By: #### L IPID, CMP #### [facility] [address] [place] [address] Dr. Yandy Rodarte Glucose [Mass/Vol] 114 mg/dL Critically high 74-106 [facility] Comment on above: Performed By: #### L IPID, CMP #### [facility] [address] [address] [address] Ynady Rodarte Potassium [Moles/Vol] 4.5 mmol/L Normal 3.5-5.1 [facility] Comment on above: Performed By: #### L IPID, CMP #### [facility] [address] [place] [address] Dr. Yandy Rodarte Protein [Mass/Vol] 8.1 g/dL Normal 6.4-8.2 [facility] Comment on above: Performed By: #### L IPID, CMP #### [facility] [address] [place] [address] Dr. Yandy Rodarte Sodium [Moles/Vol] 141 mmol/L Normal 136-145 [facility] Comment on above: Performed By: #### L IPID, CMP #### [facility] [address] [place] [address] Dr. Yandy Rodarte Urea nitrogen [Mass/Vol] 18.0 mg/dL Normal 7.0-18.0 [facility] Comment on above: Performed By: #### L IPID, CMP #### [facility] [address] [place] [address] Dr. Yandy Rodarte Urea nitrogen/Creatinine [Mass ratio] 22.2 mg/mg Normal [facility] Comment on above: Performed By: #### L IPID, CMP #### [facility] [address] [place] [address] Dr. Yandy Rodarte Office Visiton 02-19-2023 Follow-up visit [id number] Maximo Gill 1950 F Date Provider Department Center 02/19/2023 [id number] PRECIADO [facility] Family History Problem Relation Age of Onset Heart attack Father Diabetes Father Hypertension Father Coronary artery disease Father Rheum arthritis Father Family Status - Relation Status Age at Father Level of Service:43382 NM OFFICE/OUTPATIENT ESTABLISHED MOD MDM 30-39 MIN Reason for Visit and Comments: Follow-up [024572] - 6 month follow up Normal [facility] MG MAMM SCREEN MARIELENA W CADon 0 12-27-2022 MG MAMM SCREEN MARIELENA W CAD Patient: AFIA GILL Exam Date: 12/27/2022 : 1950 Gender:F Ordering : DR YAHIR BROTHERS M.D. Admission #: [id number] Family : Order #: [id number] CLICK HERE TO VIEW EXAM RADIOLOGY REPORT [...] cervical cancer at age 37. LOCATION: [facility] BREAST COMPOSITION: Scattered areas fibroglandular density. FINDINGS: [...] Pang MD on 12/28/2022 at 09:38 Normal [facility] CT SINUSES WO CONon 05-18-[address] [...] by: YAYA ZULUAGA Date: 2022-05-18 08:38 Normal [facility] BASIC METABOLIC PANELon 01-20 Calcium [Mass/Vol] 9.6 mg/dL Normal 8.6-10.3 [facility] Comment on above: Order Comment: No: D o not add to previous draw Performed By: #### 5 [id number] #### [facility] [address] [place] [address], [facility] Chloride [Moles/Vol] 101 mmol/L Normal 98-107 [facility] Comment on above: Order Comment: No: D o not add to previous draw Performed By: #### 5 [id number] #### [facility] [address] [place] [address], [facility] CO2 [Moles/Vol] 29 mmol/L Normal 21-31 [facility] Comment on above: Order Comment: No: D o not add to previous draw Performed By: #### 5 0608 #### [facility] [address] [place] [address], [facility] Creatinine [Mass/Vol] 0.71 mg/dL Normal 0.60-1.20 [facility] Comment on above: Order Comment: No: D o not add to previous draw Performed By: #### 5 [id number] #### [facility] [address] [place] [address], [facility] GFR/1.73 sq M predicted among blacks MDRD (S/P/Bld) [Vol rate/Area] mL/min/{1.73_m2} Normal >60 [facility] Comment on above: Order Comment: No: D o not add to previous draw Performed By: #### 5 [id number] #### [facility] [address] [place] [address], [place] GFR/1.73 sq M predicted among non-blacks MDRD (S/P/Bld) [Vol rate/Area] mL/min/{1.73_m2} Normal >60 [facility] Comment on above: Order Comment: No: D o not add to previous draw Performed By: #### 5 [id number] #### [facility] [address] [place] [address], [place] Glucose [Mass/Vol] 127 mg/dL High 70-100 [facility] Comment on above: Order Comment: No: D o not add to previous draw Performed By: #### 5 0608 #### [facility] [address] [place] [address], [place] Potassium [Moles/Vol] 4.3 mmol/L Normal 3.5-5.1 [facility] Comment on above: Order Comment: No: D o not add to previous draw Performed By: #### 5 0608 #### [facility] [address] [place] [address], [place] Sodium [Moles/Vol] 137 mmol/L Normal 136-145 [facility] Comment on above: Order Comment: No: D o not add to previous draw Performed By: #### 5 [id number] #### [facility] [address] [place] [address], [place] Urea nitrogen [Mass/Vol] 20 mg/dL Normal 7-25 [facility] Comment on above: Order Comment: No: D o not add to previous draw Performed By: #### 5 [id number] #### [facility] [address] [place] [address], [place] CBC COMPLETE BLOOD COUNTon 0 4-14-2019 Erythrocyte distribution width (RBC) [Ratio] 14.6 % Normal 11.5-15.0 [facility] Comment on above: Order Comment: No: D o not add to previous draw Performed By: #### 5 [id number] #### [facility] [address] [place] [address], [facility] Hematocrit (Bld) [Volume fraction] 44.6 % Normal 36.0-45.0 [facility] Comment on above: Order Comment: No: D o not add to previous draw Performed By: #### 5 [id number] #### [facility] [address] [place] [address], [facility] Hemoglobin (Bld) [Mass/Vol] 14.1 g/dL Normal 12.0-15.0 [facility] Comment on above: Order Comment: No: D o not add to previous draw Performed By: #### 5 [id number] #### [facility] [address] [place] [address], [facility] MCH (RBC) [Entitic mass] 30.2 pg Normal 27.0-33.0 [facility] Comment on above: Order Comment: No: D o not add to previous draw Performed By: #### 5 [id number] #### [facility] [address] [place] [address], [facility] MCHC (RBC) [Mass/Vol] 31.6 g/dL Low 32.0-35.0 [facility] Comment on above: Order Comment: No: D o not add to previous draw Performed By: #### 5 [id number] #### [facility] [address] [place] [address], [facility] MCV (RBC) [Entitic vol] 95.5 fL Normal 82.0-98.0 [facility] Comment on above: Order Comment: No: D o not add to previous draw Performed By: #### 5 [id number] #### [facility] [address] Nucleated RBC/100 WBC (Bld) [Ratio] 0 % Normal 0-0 [facility] Comment on above: Order Comment: No: D o not add to previous draw Performed By: #### 5 [id number] #### [facility] [address] [place] [address], [facility] PLAT CNT 250 10*3/uL Normal 150-400 [facility] Comment on above: Order Comment: No: D o not add to previous draw Performed By: #### 5 [id number] #### [facility] [address] [place] [address], [facility] RBC (Bld) [#/Vol] 4.67 10*6/uL Normal 3.80-5.00 [facility] Comment on above: Order Comment: No: D o not add to previous draw Performed By: #### 5 [id number] #### [facility] [address] [place] [address], [facility] WBC (Bld) [#/Vol] 9.20 10*3/uL Normal 4.00-10.60 [facility] Comment on above: Order Comment: No: D o not add to previous draw Performed By: #### 5 [id number] #### [facility] [address] [facility] [place] [address], [facility] POC GLUCOSE LABon 02-02-2019 Glucose [Mass/Vol] 146 mg/dL High 70-100 [facility] Comment on above: Performed By: #### 5 [id number] #### [facility] [address] [facility]. [place] [id number], [facility] Glucose [Mass/Vol] 115 mg/dL High 70-100 [facility] Comment on above: Performed By: #### 5 0608 #### [facility] [address] [place] [address], [facility] PROTHROMBIN TIMEon 9 INR Coag (PPP) [Relative time] 1.22 {INR} High 0.91-1.16 [facility] Comment on above: Order Comment: No: D [...] 1995;108:231S-246S. Performed By: #### 5 0608 #### [facility] [address] [place] [address], [facility] PT Coag (PPP) [Time] 15.4 s High 12.3-14.8 [facility] Comment on above: Order Comment: No: D o not add to previous draw Result Comment: ALL RESULTS MUST BE INTERPRETED WITH RESPECT TO BLOOD DRAWING ARTIFACT OR DILUTION ERROR OF ANTICOAGULANT AT THE TIME OF SAMPLING. Performed By: #### 5 0608 #### [facility] [address] [place] [address], [place] POC GLUCOSE LABon 02-01-2019 Glucose [Mass/Vol] 152 mg/dL High 70-100 [facility] Comment on above: Performed By: #### 5 0608 #### [facility] [address] [place] [address], [place] Glucose [Mass/Vol] 118 mg/dL High 70-100 [facility] Comment on above: Performed By: #### 5 0608 #### [facility] [address] [facility] [place] [address], [facility] Glucose [Mass/Vol] 197 mg/dL High 70-100 [facility] Comment on above: Performed By: #### 5 0608 #### [facility] [address] [place] [address], [facility] Glucose [Mass/Vol] 123 mg/dL High 70-100 [facility] Comment on above: Performed By: #### 5 0608 #### [facility] [address] [facility]. [address] PROTHROMBIN TIMEon 9 INR Coag (PPP) [Relative time] 1.24 {INR} High 0.91-1.16 [facility] Comment on above: Order Comment: Unkno wn [...] 1995;108:231S-246S. Performed By: #### 0 0071 #### [facility] [address] [place] [address], [place] PT Coag (PPP) [Time] 15.6 s High 12.3-14.8 [facility] Comment on above: Order Comment: Unkno wn Result Comment: ALL RESULTS MUST BE INTERPRETED WITH RESPECT TO BLOOD DRAWING ARTIFACT OR DILUTION ERROR OF ANTICOAGULANT AT THE TIME OF SAMPLING. Performed By: #### 0 0071 #### [facility] [address] [place] [address], [facility] BASIC METABOLIC PANELon 01-20 Calcium [Mass/Vol] 9.5 mg/dL Normal 8.6-10.3 [facility] Comment on above: Order Comment: No: D o not add to previous draw Performed By: #### 0 0071 #### [facility] [address] [place] [address], [facility] Chloride [Moles/Vol] 98 mmol/L Normal 98-107 [facility] Comment on above: Order Comment: No: D o not add to previous draw Performed By: #### 0 0071 #### [facility] [address] [place] [address], [place] CO2 [Moles/Vol] 29 mmol/L Normal 21-31 The [facility] Comment on above: Order Comment: No: D o not add to previous draw Performed By: #### 0 0071 #### [facility] [address] [place] [address], [facility] Creatinine [Mass/Vol] 0.72 mg/dL Normal 0.60-1.20 [facility] Comment on above: Order Comment: No: D o not add to previous draw Performed By: #### 0 0071 #### [facility] [address] [place] [address], [facility] GFR/1.73 sq M predicted among blacks MDRD (S/P/Bld) [Vol rate/Area] mL/min/{1.73_m2} Normal >60 [facility] Comment on above: Order Comment: No: D o not add to previous draw Performed By: #### 0 0071 #### [facility] [address] [place] [address], [facility] GFR/1.73 sq M predicted among non-blacks MDRD (S/P/Bld) [Vol rate/Area] mL/min/{1.73_m2} Normal >60 [facility] Comment on above: Order Comment: No: D o not add to previous draw Performed By: #### 0 0071 #### [facility] [address] [place] [address], [facility] Glucose [Mass/Vol] 120 mg/dL High 70-100 [facility] Comment on above: Order Comment: No: D o not add to previous draw Performed By: #### 0 0071 #### [facility] [address] [place] [address], [facility] Potassium [Moles/Vol] 3.5 mmol/L Normal 3.5-5.1 [facility] Comment on above: Order Comment: No: D o not add to previous draw Performed By: #### 0 0071 #### [facility] [address] [place] [address], [facility] Sodium [Moles/Vol] 138 mmol/L Normal 136-145 [facility] Comment on above: Order Comment: No: D o not add to previous draw Performed By: #### 0 0071 #### [facility] [address] [place] [id number], [facility] Urea nitrogen [Mass/Vol] 20 mg/dL Normal 7-25 [facility] Comment on above: Order Comment: No: D o not add to previous draw Performed By: #### 0 0071 #### [facility] [address] [place] [address], [facility] CBC COMPLETE BLOOD COUNTon 0 - Erythrocyte distribution width (RBC) [Ratio] 14.6 % Normal 11.5-15.0 [facility] Comment on above: Order Comment: No: D o not add to previous draw Performed By: #### 0 0071 #### [facility] [address] [place] [address], [facility] Hematocrit (Bld) [Volume fraction] 42.7 % Normal 36.0-45.0 [facility] Comment on above: Order Comment: No: D o not add to previous draw Performed By: #### 0 0071 #### [facility] [address] [place] [address], [facility] Hemoglobin (Bld) [Mass/Vol] 13.8 g/dL Normal 12.0-15.0 [facility] Comment on above: Order Comment: No: D o not add to previous draw Performed By: #### 0 0071 #### [facility] [address] [place] [address], [facility] MCH (RBC) [Entitic mass] 31.0 pg Normal 27.0-33.0 [facility] Comment on above: Order Comment: No: D o not add to previous draw Performed By: #### 0 0071 #### [facility] [address] [facility] [place] [address], [facility] MCHC (RBC) [Mass/Vol] 32.3 g/dL Normal 32.0-35.0 [facility] Comment on above: Order Comment: No: D o not add to previous draw Performed By: #### 0 0071 #### [facility] [address] [place] [address], [facility] MCV (RBC) [Entitic vol] 96.0 fL Normal 82.0-98.0 [facility] Comment on above: Order Comment: No: D o not add to previous draw Performed By: #### 0 0071 #### [facility] [address] [place] [address], [facility] Nucleated RBC/100 WBC (Bld) [Ratio] 0 % Normal 0-0 [facility] Comment on above: Order Comment: No: D o not add to previous draw Performed By: #### 0 0071 #### [facility] [address] [place] [address], [place] PLAT CNT 217 10*3/uL Normal 150-400 [facility] Comment on above: Order Comment: No: D o not add to previous draw Performed By: #### 0 0071 #### [facility] [address] [place] [address], [place] RBC (Bld) [#/Vol] 4.45 10*6/uL Normal 3.80-5.00 [facility] Comment on above: Order Comment: No: D o not add to previous draw Performed By: #### 0 0071 #### [facility] [address] [place] [address], [place] WBC (Bld) [#/Vol] 9.17 10*3/uL Normal 4.00-10.60 [facility] Comment on above: Order Comment: No: D o not add to previous draw Performed By: #### 0 0071 #### [facility] [address] [place] [address], [facility] POC GLUCOSE LABon 01-31-2019 Glucose [Mass/Vol] 116 mg/dL High 70-100 [facility] Comment on above: Performed By: #### 0 0071 #### [facility] [address] [place] [address], [place] Glucose [Mass/Vol] 122 mg/dL High 70-100 [facility] Comment on above: Performed By: #### 0 0071 #### [facility] [address] [place] [address], [place] Glucose [Mass/Vol] 191 mg/dL High 70-100 [facility] Comment on above: Performed By: #### 0 0071 #### [facility] [address] [place] [address], [place] Glucose [Mass/Vol] 131 mg/dL High 70-100 [facility] Comment on above: Performed By: #### 0 0071 #### [facility] [address] PROTHROMBIN TIMEon 9 INR Coag (PPP) [Relative time] 1.24 {INR} High 0.91-1.16 [facility] Comment on above: Order Comment: Shaan brunson Result Comment: ACCC P RECOMMENDED INR FOR [...] 1995;108:231S-246S. Performed By: #### 0 0071 #### [facility] [address] [place] [address], [facility] PT Coag (PPP) [Time] 15.6 s High 12.3-14.8 [facility] Comment on above: Order Comment: hSaan brunson Result Comment: ALL RESULTS MUST BE INTERPRETED WITH RESPECT TO BLOOD DRAWING ARTIFACT OR DILUTION ERROR OF ANTICOAGULANT AT THE TIME OF SAMPLING. Performed By: #### 0 0071 #### [facility] [address] [place] [address], [facility] BASIC METABOLIC PANELon 01-20 Calcium [Mass/Vol] 10.0 mg/dL Normal 8.6-10.3 [facility] Comment on above: Order Comment: No: D o not add to previous draw Performed By: #### 0 0071 #### [facility] [address] [place] [address], [place] Chloride [Moles/Vol] 99 mmol/L Normal 98-107 [facility] Comment on above: Order Comment: No: D o not add to previous draw Performed By: #### 0 0071 #### [facility] [address] [place] [address], [place] CO2 [Moles/Vol] 30 mmol/L Normal 21-31 [facility] Comment on above: Order Comment: No: D o not add to previous draw Performed By: #### 0 0071 #### [facility] [address] [place] [address], [place] Creatinine [Mass/Vol] 0.74 mg/dL Normal 0.60-1.20 [facility] Comment on above: Order Comment: No: D o not add to previous draw Performed By: #### 0 0071 #### [facility] [address] [place] [address], [place] GFR/1.73 sq M predicted among blacks MDRD (S/P/Bld) [Vol rate/Area] mL/min/{1.73_m2} Normal >60 [facility] Comment on above: Order Comment: No: D o not add to previous draw Performed By: #### 0 0071 #### [facility] [address] [place] [address], [place] GFR/1.73 sq M predicted among non-blacks MDRD (S/P/Bld) [Vol rate/Area] mL/min/{1.73_m2} Normal >60 [facility] Comment on above: Order Comment: No: D o not add to previous draw Performed By: #### 0 0071 #### [facility] [address] [place] [address], [place] Glucose [Mass/Vol] 112 mg/dL High 70-100 [facility] Comment on above: Order Comment: No: D o not add to previous draw Performed By: #### 0 0071 #### [facility] [address] [place] [address], [place] Potassium [Moles/Vol] 4.3 mmol/L Normal 3.5-5.1 [facility] Comment on above: Order Comment: No: D o not add to previous draw Performed By: #### 0 0071 #### [facility] [address] [place] [address], [place] Sodium [Moles/Vol] 137 mmol/L Normal 136-145 [facility] Comment on above: Order Comment: No: D o not add to previous draw Performed By: #### 0 0071 #### [facility] [address] [place] [address], [place] Urea nitrogen [Mass/Vol] 20 mg/dL Normal 7-25 [facility] Comment on above: Order Comment: No: D o not add to previous draw Performed By: #### 0 0071 #### [facility] [address] [place] [address], [place] Calcium [Mass/Vol] 9.3 mg/dL Normal 8.6-10.3 [facility] Comment on above: Order Comment: No: D o not add to previous draw Performed By: #### 5 6101 #### [facility] [address] [place] [address], [place] Chloride [Moles/Vol] 103 mmol/L Normal 98-107 [facility] Comment on above: Order Comment: No: D o not add to previous draw Performed By: #### 5 6101 #### [facility] [address] [place] [address], [place] CO2 [Moles/Vol] 28 mmol/L Normal 21-31 The [facility] Comment on above: Order Comment: No: D o not add to previous draw Performed By: #### 5 6101 #### [facility] [address] [place] [address], [facility] Creatinine [Mass/Vol] 0.62 mg/dL Normal 0.60-1.20 [facility] Comment on above: Order Comment: No: D o not add to previous draw Performed By: #### 5 6101 #### [facility] [address] [place] [address], [facility] GFR/1.73 sq M predicted among blacks MDRD (S/P/Bld) [Vol rate/Area] mL/min/{1.73_m2} Normal >60 [facility] Comment on above: Order Comment: No: D o not add to previous draw Performed By: #### 5 6101 #### [facility] [address] [place] [address], [facility] GFR/1.73 sq M predicted among non-blacks MDRD (S/P/Bld) [Vol rate/Area] mL/min/{1.73_m2} Normal >60 [facility] Comment on above: Order Comment: No: D o not add to previous draw Performed By: #### 5 6101 #### [facility] [address] [place] [address], [place] Glucose [Mass/Vol] 117 mg/dL High 70-100 [facility] Comment on above: Order Comment: No: D o not add to previous draw Performed By: #### 5 6101 #### [facility] [address] [place] [address], [place] Potassium [Moles/Vol] 3.5 mmol/L Normal 3.5-5.1 [facility] Comment on above: Order Comment: No: D o not add to previous draw Performed By: #### 5 [id number] #### [facility] [address] [place] [id number], [facility] Sodium [Moles/Vol] 140 mmol/L Normal 136-145 [facility] Comment on above: Order Comment: No: D o not add to previous draw Performed By: #### 5 6101 #### [facility] [address] [place] [address], [facility] Urea nitrogen [Mass/Vol] 15 mg/dL Normal 7-25 [facility] Comment on above: Order Comment: No: D o not add to previous draw Performed By: #### 5 [id number] #### [facility] [address] [place] [address], [facility] CBC COMPLETE BLOOD COUNTon 0 - Erythrocyte distribution width (RBC) [Ratio] 14.6 % Normal 11.5-15.0 [facility] Comment on above: Order Comment: No: D o not add to previous draw Performed By: #### 5 [id number] #### [facility] [address] [place] [address], [facility] Hematocrit (Bld) [Volume fraction] 42.1 % Normal 36.0-45.0 [facility] Comment on above: Order Comment: No: D o not add to previous draw Performed By: #### 5 6101 #### [facility] [address] [place] [address], [facility] Hemoglobin (Bld) [Mass/Vol] 13.4 g/dL Normal 12.0-15.0 [facility] Comment on above: Order Comment: No: D o not add to previous draw Performed By: #### 5 6101 #### [facility] [address] [place] [address], [facility] MCH (RBC) [Entitic mass] 30.6 pg Normal 27.0-33.0 [facility] Comment on above: Order Comment: No: D o not add to previous draw Performed By: #### 5 6101 #### [facility] [address] [place] [address], [facility] MCHC (RBC) [Mass/Vol] 31.8 g/dL Low 32.0-35.0 [facility] Comment on above: Order Comment: No: D o not add to previous draw Performed By: #### 5 [id number] #### [facility] [address] [place] [id number], [facility] MCV (RBC) [Entitic vol] 96.1 fL Normal 82.0-98.0 [facility] Comment on above: Order Comment: No: D o not add to previous draw Performed By: #### 5 [id number] #### [facility] [address] [place] [address], [facility] Nucleated RBC/100 WBC (Bld) [Ratio] 0 % Normal 0-0 [facility] Comment on above: Order Comment: No: D o not add to previous draw Performed By: #### 5 6101 #### [facility] [address] [place] [address], [facility] PLAT CNT 215 10*3/uL Normal 150-400 The [facility] Comment on above: Order Comment: No: D o not add to previous draw Performed By: #### 5 [id number] #### [facility] [address] [place] [address], [facility] RBC (Bld) [#/Vol] 4.38 10*6/uL Normal 3.80-5.00 [facility] Comment on above: Order Comment: No: D o not add to previous draw Performed By: #### 5 [id number] #### [facility] [address] [place] [id number], [facility] WBC (Bld) [#/Vol] 8.75 10*3/uL Normal 4.00-10.60 [facility] Comment on above: Order Comment: No: D o not add to previous draw Performed By: #### 5 6101 #### [facility] [address] [facility]. [address] Cardiovascular Lab Reporton 01-30-2019 Cardiovascular Lab Report [facility] Patient Name: Afia Gill [facility] A MR #: [id number] Department of Physician: Raman Gomez M.D. Division of Service Date: 01/29/2019 Cardiology Birthdate: 1950 Adult Cardiovascular Room #: 3AB [id number] [address] [place] [address] Cardiovascular Laboratory Report INDICATION: The patient is [...] signed informed consent. 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 The right neck area was prepped and draped in usual fashion. Using ultrasound guidance and micropuncture technique, the internal jugular vein was accessed. A 6-Montenegrin x 11 cm sheath was placed. A 6-Montenegrin Caldera catheter was used for right heart catheterization with measurement of pressures and calculation of cardiac output using the estimated Nader method. The Caldera catheter was removed. Using ultrasound guidance and micropuncture technique, the right radial artery was accessed. A 6-Montenegrin x 11 cm Hydrophilic sheath was advanced. Verapamil was given through the sheath and a bolus of bivalirudin was given intravenously as the patient has prior history of heparin-induced thrombocytopenia. Note that, the care was taken to avoid any use of heparin during the procedure. Bilateral selective coronary angiography was then performed using 6-Montenegrin JL3.5 and JR5 diagnostic catheters. Catheters were removed. A 6-[place]grin angled pigtail catheter was advanced over the [...] with 30% left ventricular ejection fraction. 3. Ayiq-xm-famfocbs mitral regurgitation. 4. Severely elevated filling pressures. 5. Severe pulmonary hypertension. 6. Reduced cardiac output and cardiac index. 7. Uncontrolled systemic hypertension. RECOMMENDATIONS: The patient will be admitted for management of her decompensated heart failure with diuresis, addition of YUE inhibitor therapy, and control of her afterload. Electronically Signed by: Raman Gomez M.D. 02/01/2019 12:22 P Raman Gomez M.D. Date Dict: 01/29/2019/11:30 A/Raman Gomez M.D. Date Trans: 01/30/2019 07:50 A/mmo [id number] cc: Yahir Brothers M.D. [address] [place] [address] Yahir Mijares M.D. [address] [facility] [address] Normal [facility] MAGNESIUM BLOODon 01-30-2019 Magnesium [Mass/Vol] 2.2 mg/dL Normal 1.9-2.7 [facility] Comment on above: Order Comment: No: D o not add to previous draw Performed By: #### 0 0071 #### [facility] [address] [place] [address], [place] Magnesium [Mass/Vol] 2.2 mg/dL Normal 1.9-2.7 [facility] Comment on above: Order Comment: No: D o not add to previous draw Performed By: #### 5 6101 #### [facility] [address] [place] [address], [place] POC GLUCOSE LABon 01-30-2019 Glucose [Mass/Vol] 107 mg/dL High 70-100 [facility] Comment on above: Performed By: #### 5 6101 #### [facility] [address] [place] [address], [place] Glucose [Mass/Vol] 125 mg/dL High 70-100 The [facility] Comment on above: Performed By: #### 5 6101 #### [facility] [address] [place] [address], [place] Glucose [Mass/Vol] 137 mg/dL High 70-100 [facility] Comment on above: Performed By: #### 5 6101 #### [facility] [address] [place] [address], [place] Glucose [Mass/Vol] 114 mg/dL High 70-100 [facility] Comment on above: Performed By: #### 5 6101 #### [facility] [address] [facility] [address] PROTHROMBIN TIMEon 9 INR Coag (PPP) [Relative time] 1.23 {INR} High 0.91-1.16 [facility] Comment on above: Order Comment: No: D [...] 1995;108:231S-246S. Performed By: #### 5 6101 #### [facility] [address] [facility]. [address] PT Coag (PPP) [Time] 15.5 s High 12.3-14.8 [facility] Comment on above: Order Comment: No: D o not add to previous draw Result Comment: ALL RESULTS MUST BE INTERPRETED WITH RESPECT TO BLOOD DRAWING ARTIFACT OR DILUTION ERROR OF ANTICOAGULANT AT THE TIME OF SAMPLING. Performed By: #### 5 [id number] #### [facility] [address] TSH3on 01-30-2019 TSH 3RD GENERATION 1.24 uIU/mL Normal 0.34-5.60 [facility] Comment on above: Order Comment: No: D o not add to previous draw Performed By: #### 5 [id number] #### [facility] [address] [place] [address], [facility] CBC COMPLETE BLOOD COUNTon 0 01-29-2019 Erythrocyte distribution width (RBC) [Ratio] 14.7 % Normal 11.5-15.0 [facility] Comment on above: Order Comment: No: D o not add to previous draw Performed By: #### 5 0608 #### [facility] [address] [place] [address], [facility] Hematocrit (Bld) [Volume fraction] 43.4 % Normal 36.0-45.0 [facility] Comment on above: Order Comment: No: D o not add to previous draw Performed By: #### 5 0608 #### [facility] [address] [place] [address], [facility] Hemoglobin (Bld) [Mass/Vol] 13.8 g/dL Normal 12.0-15.0 [facility] Comment on above: Order Comment: No: D o not add to previous draw Performed By: #### 5 0608 #### [facility] [address] [facility] [place] [address], [facility] MCH (RBC) [Entitic mass] 30.3 pg Normal 27.0-33.0 [facility] Comment on above: Order Comment: No: D o not add to previous draw Performed By: #### 5 0608 #### [facility] [address] [place] [address], [facility] MCHC (RBC) [Mass/Vol] 31.8 g/dL Low 32.0-35.0 [facility] Comment on above: Order Comment: No: D o not add to previous draw Performed By: #### 5 0608 #### [facility] [address] [place] [address], [facility] MCV (RBC) [Entitic vol] 95.2 fL Normal 82.0-98.0 The [facility] Comment on above: Order Comment: No: D o not add to previous draw Performed By: #### 5 0608 #### [facility] [address] [facility] [address] Nucleated RBC/100 WBC (Bld) [Ratio] 0 % Normal 0-0 [facility] Comment on above: Order Comment: No: D o not add to previous draw Performed By: #### 5 0608 #### [facility] [address] [facility] [place] [address], [facility] PLAT CNT 240 10*3/uL Normal 150-400 The [facility] Comment on above: Order Comment: No: D o not add to previous draw Performed By: #### 5 0608 #### [facility] [address] [facility] [place] [address], [facility] RBC (Bld) [#/Vol] 4.56 10*6/uL Normal 3.80-5.00 The [facility] Comment on above: Order Comment: No: D o not add to previous draw Performed By: #### 5 0608 #### [facility] [address] [facility] [place] [address], [facility] WBC (Bld) [#/Vol] 9.28 10*3/uL Normal 4.00-10.60 The [facility] Comment on above: Order Comment: No: D o not add to previous draw Performed By: #### 5 0608 #### [facility] [address] [facility] [place] [address], [facility] COMP METABOLIC PANELon 01-29 Albumin [Mass/Vol] 4.1 g/dL Normal 3.5-5.7 The [facility] Comment on above: Order Comment: No: D o not add to previous draw Performed By: #### 1 0070, 25075, 76082 #### [facility] [address] [place] [address], [facility] ALKALINE PHOSPH 50 IU/L Normal 34-104 The [facility] Comment on above: Order Comment: No: D o not add to previous draw Performed By: #### 1 0, 73881, 09949 #### [facility] [address] [place] [address], [place] ALT [Catalytic activity/Vol] 14 U/L Normal 7-52 [facility] Comment on above: Order Comment: No: D o not add to previous draw Performed By: #### 1 0, 35593, 56111 #### [facility] [address] [place] [address], [place] AST [Catalytic activity/Vol] 15 U/L Normal 13-39 [facility] Comment on above: Order Comment: No: D o not add to previous draw Performed By: #### 1 0, , 72807 #### [facility] [address] [place] [address], [place] Bilirubin [Mass/Vol] 0.8 mg/dL Normal 0.3-1.0 [facility] Comment on above: Order Comment: No: D o not add to previous draw Performed By: #### 1 0, 06676, 29406 #### [facility] [address] [place] [address], [place] Calcium [Mass/Vol] 9.6 mg/dL Normal 8.6-10.3 [facility] Comment on above: Order Comment: No: D o not add to previous draw Performed By: #### 1 0, 82946, 41200 #### [facility] [address] [place] [address], [place] Chloride [Moles/Vol] 103 mmol/L Normal 98-107 [facility] Comment on above: Order Comment: No: D o not add to previous draw Performed By: #### 1 0, 89990, 04443 #### [facility] [address] [place] [address], [place] CO2 [Moles/Vol] 30 mmol/L Normal 21-31 The [facility] Comment on above: Order Comment: No: D o not add to previous draw Performed By: #### 1 0, 74076, 34183 #### [facility] [address] [place] [address], [place] Creatinine [Mass/Vol] 0.71 mg/dL Normal 0.60-1.20 [facility] Comment on above: Order Comment: No: D o not add to previous draw Performed By: #### 1 0, , 40514 #### [facility] [address] [place] [address], [place] GFR/1.73 sq M predicted among blacks MDRD (S/P/Bld) [Vol rate/Area] mL/min/{1.73_m2} Normal >60 [facility] Comment on above: Order Comment: No: D o not add to previous draw Performed By: #### 1 0, 15474, 94568 #### [facility] [address] [place] [address], [place] GFR/1.73 sq M predicted among non-blacks MDRD (S/P/Bld) [Vol rate/Area] mL/min/{1.73_m2} Normal >60 [facility] Comment on above: Order Comment: No: D o not add to previous draw Performed By: #### 1 0, 85449, 91751 #### [facility] [address] [place] [address], [place] Glucose [Mass/Vol] 116 mg/dL High 70-100 The [facility] Comment on above: Order Comment: No: D o not add to previous draw Performed By: #### 1 0, 44744, 69030 #### [facility] [address] [place] [address], [place] Potassium [Moles/Vol] 3.9 mmol/L Normal 3.5-5.1 [facility] Comment on above: Order Comment: No: D o not add to previous draw Performed By: #### 1 0, 79464, 26278 #### [facility] [address] [place] [address], [place] Protein [Mass/Vol] 7.6 g/dL Normal 6.0-8.3 [facility] Comment on above: Order Comment: No: D o not add to previous draw Performed By: #### 1 0, 98778, 33356 #### [facility] [address] [place] [address], [place] Sodium [Moles/Vol] 140 mmol/L Normal 136-145 The [facility] Comment on above: Order Comment: No: D o not add to previous draw Performed By: #### 1 0, 31394, 97821 #### [facility] [address] [place] [address], [place] Urea nitrogen [Mass/Vol] 18 mg/dL Normal 7-25 [facility] Comment on above: Order Comment: No: D o not add to previous draw Performed By: #### 1 0, 05913, 06248 #### [facility] [address] [place] [address], [place] HEMOGLOBIN A1Con 01-29-2019 HbA1c (Bld) [Mass fraction] 6.1 % High 4.0-6.0 [facility] Comment on above: Order Comment: Yes: Add to Previous draw if able Performed By: #### 5 6101 #### [facility] [address] [place] [address], [place] HbA1c (Bld) [Mass fraction] 128 mg/dL High 70-126 [facility] Comment on above: Order Comment: Yes: Add to Previous draw if able Performed By: #### 5 6101 #### [facility] [address] [place] [address], [place] LIPID PROFILEon 01-29-2019 Cholesterol [Mass/Vol] 130 mg/dL Normal 120-200 [facility] Comment on above: Result Comment: CHOL ESTEROL REFERENCE RANGE: 20 YEARS AND OLDER CARDIOVASCULAR RISK Less than 200 mg/dl Low Risk 200 to 239 mg/dl Borderline Risk 240 mg/dl and greater High Risk Performed By: #### 1 0070, 93197, 51044 #### [facility] [address] [place] [address], [place] Cholesterol in HDL [Mass/Vol] 31 mg/dL Normal 23-92 [facility] Comment on above: Result Comment: Slig ht variation in normal range could be due to gender and/or age. HDL CHOLESTEROL REFERENCE RANGE: 20 years and older Cardiovascular Risk > or =60 mg/dL Desirable 40 TO 59 mg/dL Low Risk <40 mg/dL High Risk Performed By: #### 1 0070, 77690, 64456 #### [facility] [address] [place] [address], [place] Cholesterol in LDL [Mass/Vol] 67 mg/dL Normal 0-130 [facility] Comment on above: Result Comment: LDL IS A CALCULATION LDL IS ONLY VALID IF THE TRIG IS LESS THAN 400. Performed By: #### 1 0070, 70730, 66037 #### [facility] [address] [place] [address], [place] Cholesterol.total/C holesterol in HDL [Mass ratio] 4.2 {ratio} Normal .0-4.5 [facility] Comment on above: Performed By: #### 1 0070, 76333, 06192 #### [facility] [address] [place] [address], [place] NON-HDL CHOLESTEROL 99 mg/dL Normal [facility] Comment on above: Performed By: #### 1 0070, 09786, 68014 #### [facility] [address] [place] [address], [place] Triglyceride [Mass/Vol] 158 mg/dL High 40-149 [facility] Comment on above: Result Comment: TRIG LYCERIDE REFERENCE RANGE: 20 YEARS AND OLDER CARDIOVASCULAR RISK LESS THAN 150 mg/dl LOW RISK 150 TO 199 mg/dl BORDERLINE RISK 200 mg/dl AND GREATER HIGH RISK Performed By: #### 1 0070, 38121, 03457 #### [facility] [address] [place] [address], [facility] VLDL CHOL 32 mg/dL Normal 0-40 [facility] Comment on above: Performed By: #### 1 0070, 20669, 39598 #### [facility] [address] [place] [address], [facility] MAGNESIUM BLOODon 01-29-2019 Magnesium [Mass/Vol] 2.2 mg/dL Normal 1.9-2.7 [facility] Comment on above: Order Comment: No: D o not add to previous draw Performed By: #### 1 0070, 46420, 19491 #### [facility] [address] [place] [address], [facility] POC GLUCOSE LABon 01-29-2019 Glucose [Mass/Vol] 102 mg/dL High 70-100 The [facility] Comment on above: Performed By: #### 8 5499 #### [facility] [address] [place] [address], [facility] Glucose [Mass/Vol] 131 mg/dL High 70-100 [facility] Comment on above: Performed By: #### 8 5499 #### [facility] [address] [place] [address], [facility] PROTHROMBIN TIMEon 9 INR Coag (PPP) [Relative time] 1.39 {INR} High 0.91-1.16 [facility] Comment on above: Order Comment: [...] 1995;108:231S-246S. Performed By: #### 5 6101 #### [facility] [address] PT Coag (PPP) [Time] 17.1 s High 12.3-14.8 [facility] Comment on above: Order Comment: Yes: Add to Previous draw if able Result Comment: ALL RESULTS MUST BE INTERPRETED WITH RESPECT TO BLOOD DRAWING ARTIFACT OR DILUTION ERROR OF ANTICOAGULANT AT THE TIME OF SAMPLING. Performed By: #### 5 6101 #### [facility] [address] [facility]. [address] BASIC METABOLIC PANELon 04-0 Calcium [Mass/Vol] 10.1 mg/dL Normal 8.6-10.3 [facility] Comment on above: Performed By: #### 0 0071 #### [facility] [address] [place] [address], [facility] Chloride [Moles/Vol] 100 mmol/L Normal 98-107 [facility] Comment on above: Performed By: #### 0 0071 #### [facility] [address] [place] [address], [facility] CO2 [Moles/Vol] 30 mmol/L Normal 21-31 [facility] Comment on above: Performed By: #### 0 0071 #### [facility] [address] [place] [address], [place] Creatinine [Mass/Vol] 0.71 mg/dL Normal 0.60-1.20 [facility] Comment on above: Performed By: #### 0 0071 #### [facility] [address] [place] [address], [place] GFR/1.73 sq M predicted among blacks MDRD (S/P/Bld) [Vol rate/Area] mL/min/{1.73_m2} Normal >60 [facility] Comment on above: Performed By: #### 0 0071 #### [facility] [address] [place] [address], [place] GFR/1.73 sq M predicted among non-blacks MDRD (S/P/Bld) [Vol rate/Area] mL/min/{1.73_m2} Normal >60 [facility] Comment on above: Performed By: #### 0 0071 #### [facility] [address] [place] [address], [place] Glucose [Mass/Vol] 93 mg/dL Normal 70-100 [facility] Comment on above: Performed By: #### 0 0071 #### [facility] [address] [place] [address], [place] Potassium [Moles/Vol] 3.7 mmol/L Normal 3.5-5.1 [facility] Comment on above: Performed By: #### 0 0071 #### [facility] [address] [place] [address], [place] Sodium [Moles/Vol] 139 mmol/L Normal 136-145 [facility] Comment on above: Performed By: #### 0 0071 #### [facility] [address] [place] [address], [place] Urea nitrogen [Mass/Vol] 16 mg/dL Normal 7-25 [facility] Comment on above: Performed By: #### 0 0071 #### [facility] [address] CBC COMPLETE BLOOD COUNTon 0 - Erythrocyte distribution width (RBC) [Ratio] 14.9 % Normal 11.5-15.0 [facility] Comment on above: Performed By: #### 5 0608 #### [facility] [address] Hematocrit (Bld) [Volume fraction] 43.0 % Normal 36.0-45.0 [facility] Comment on above: Performed By: #### 5 0608 #### [facility] [address] Hemoglobin (Bld) [Mass/Vol] 13.7 g/dL Normal 12.0-15.0 [facility] Comment on above: Performed By: #### 5 0608 #### [facility] [address] MCH (RBC) [Entitic mass] 30.0 pg Normal 27.0-33.0 [facility] Comment on above: Performed By: #### 5 0608 #### [facility] [address] [facility] [place] [address], [facility] MCHC (RBC) [Mass/Vol] 31.9 g/dL Low 32.0-35.0 [facility] Comment on above: Performed By: #### 5 0608 #### [facility] [address] [place] [address], [facility] MCV (RBC) [Entitic vol] 94.3 fL Normal 82.0-98.0 [facility] Comment on above: Performed By: #### 5 0608 #### [facility] [address] [place] [address], [facility] Nucleated RBC/100 WBC (Bld) [Ratio] 0 % Normal 0-0 [facility] Comment on above: Performed By: #### 5 0608 #### [facility] [address] [place] [address], [facility] PLAT CNT 270 10*3/uL Normal 150-400 The [facility] Comment on above: Performed By: #### 5 0608 #### [facility] [address] RBC (Bld) [#/Vol] 4.56 10*6/uL Normal 3.80-5.00 [facility] Comment on above: Performed By: #### 5 0608 #### [facility] [address] WBC (Bld) [#/Vol] 9.44 10*3/uL Normal 4.00-10.60 [facility] Comment on above: Performed By: #### 5 0608 #### [facility] [address] PROTHROMBIN TIMEon 9 INR Coag (PPP) [Relative time] 1.85 {INR} High 0.91-1.16 [facility] Comment on above: Result Comment: ACCC P [...] 1995;108:231S-246S. Performed By: #### 5 6101 #### [facility] [address] [place] [address], [facility] PT Coag (PPP) [Time] 21.4 s High 12.3-14.8 [facility] Comment on above: Result Comment: ALL RESULTS MUST BE INTERPRETED WITH RESPECT TO BLOOD DRAWING ARTIFACT OR DILUTION ERROR OF ANTICOAGULANT AT THE TIME OF SAMPLING. Performed By: #### 5 6101 #### [facility] [address] Encounters Encounter Date Encounter Type Care Provider Facility Start: 12-31-2023 End: 12-31-2023 ambulatory YAHIR BROTHERS [facility] Start: 12-26-2023 End: 12-29-2023 Evaluation and management of inpatient COLIN Zina KEITH [facility] Start: 12-25-2023 End: 12-29-2023 Evaluation and management of inpatient BIJAL BARNHART [facility] Start: 12-21-2023 End: 12-29-2023 Orders Only Korina Oliver MD Work Phone: [facility] Start: 12-20-2023 End: 12-29-2023 Emergency department patient visit [facility] Start: 12-20-2023 End: 12-29-2023 Emergency department patient visit DANAE BRITTON [facility] Start: 12-20-2023 End: 12-28-2023 Evaluation and management of inpatient [facility] Start: 11-01-2023 End: 11-01-2023 ambulatory EBER JOSHUA [facility] Start: 10-31-2023 End: 10-31-2023 ambulatory YAHIR BROTHERS Not Available Start: 09-05-2023 End: 09-05-2023 ambulatory YAHIR BROTHERS Not Available Start: 07-07-2023 End: 07-10-2023 ambulatory YAHIR BROTHERS Not Available Start: 05-23-2023 End: 05-23-2023 ambulatory RAMAN GOMEZ [facility] Start: 03-02-2023 End: 03-03-[address] DOCTOR LOYOLA Facility:[facility] Start: 02-19-2023 End: 02-19-2023 ambulatory JESSICA PRECIADO [facility] Start: 12-27-2022 End: 12-28-[address] YAHIR BROTHERS Facility:[facility] Start: 05-17-2022 End: 05-18-[address] YAHIR BROTHERS Facility:[facility] Start: 01-29-2019 End: 02-02-2019 Evaluation and management of inpatient YAHIR BROTHERS Facility:[facility] Procedures Date Procedure Procedure Detail Performing [...] Td Vaccines (2 - Td or Tdap) [facility] Start: 12-20-2024 Adult BMI Screening Adult BMI Screen ing [facility] Start: 12-20-2024 Tobacco Screening Tobacco Screening [facility] Start: 06-22-2023 COVID-19 Vaccine ( season) COVID-19 Vaccine () [facility] Start: 2017 Fall Risk Screening Fall Risk Screen ing [facility] Start: 1970 Adult BMI Follow Up Plan Adult BMI Follow Up Plan [facility] Start: 1964 Depression Screening Depression Scre ening [facility] Start: 1952 Medicare Annual Wellness Visit Medicare Annual Wellness Visit [facility] Immunizations Immunization Date Immunization Notes Care Provider Fa cility 02-04-2021 COVID-19, mRNA, LNP- S, PF, 100mcg/0.5mL Dose [facility] 01-07-2021 COVID-19, mRNA, LNP- S, PF, 100mcg/0.5mL Dose [facility] 08-03-2019 pneumococcal conjuga te vaccine, 13 valent Korina Oliver MD Work Phone: [facility] Payers Date Payer Category Payer Unknown [id number] 2022-Present [phone] [address] [place] [address] [id number] 1959 Unknown [id number] 1959 Unknown [id number] 1952 Unknown [id number] 2.16.840.1.079978.3.579.2.647 1952 Unknown [id number] 2.16.840.1.399560.3.579.2.593 1952 Unknown [id number] 2.16.840.1.216025.3.579.2.593 1952 Unknown [id number] 2.16.840.1.865249.3.579.2.593 1952 Unknown [id number] 2.16.840.1.765060.3.579.2.1286 1952 Unknown [id number] 2.16.840.1.323981.3.579.2.1286 1952 Unknown [id number] 2.16.840.1.149577.3.579.2.1286 1952 Unknown [id number] 2.16.840.1.741123.3.579.2.1286 1952 Unknown [id number] 2.16.840.1.386396.3.579.2.1286 1952 Unknown [id number] 2.16.840.1.432308.3.579.2.1286 1952 Unknown [id number] 2.16.840.1.640802.3.579.2.1286 1952 Unknown [id number] 2.16.840.1.780574.3.579.2.1286 1952 Unknown [id number] 2.16.840.1.978048.3.579.2.1286 1952 Unknown [id number] 2.16.840.1.997373.3.579.2.1259 1952 Unknown [id number] 2.16.840.1.188325.3.579.2.1259 1952 Unknown [id number] 2.16.840.1.125878.3.579.2.1259 1952 Unknown [id number] 2.16.840.1.196037.3.579.2.1286 Medicare [id number] Social History Date Type Detail Facility Start: 12-20-2023 Tobacco smoking stat [facility] Ex-smoker [facility] End: 03-11-2002 History of tobacco use Current smoker [facility] End: 03-11-2002 History of tobacco use Cigarette Smoker [facility] Start: 12-02-2020 End: 12-20-2023 Cigarettes smoked current (pack per day) - Reported 1 [facility] Start: 12-20-2023 Tobacco use and exposure Smoke less tobacco non-user [facility] Start: 12-21-2023 Alcohol intake Ex-drinker (finding) [facility] Start: 12-02-2020 End: 12-20-2023 [facility] [employer] [facility] Has the [employer], or [employer] threatened to shut off services in your home in past 12Mo No [facility] In the past 12 month s, has lack of transportation kept you from medical appointments or from getting medications? No [facility] Start: 12-20-2023 Tobacco Comment quit 17 years ago [facility] Start: 1950 Sex Assigned At Not on file P [employer] Goals Date Patient Goal Desired Activity /State [...] yesterday. Says she was very sick around [place] but is feeling better. Review of Systems HENT: Positive for nosebleeds. Cardiovascular: Positive for dyspnea on exertion. Respiratory: Positive for cough and shortness of breath. Hematologic/Lymphatic: Bruises/bleeds easily. Neurological: Positive for focal weakness and weakness. All other systems reviewed and are negative. [facility] Progress note 11-01-2023 Note Date & Type Note Facility 11-01-2023 Note Cardiovascular Medic [facility] SUBJECTIVE Chief Complaint Patient presents with [...] had some vomiting and cough back around ellen time. She was also coughing up some [...] cystic mastopathy Non-traumatic rhabdomyolysis Nonsustained ventricular tachycardia ([facility]) Leukocytosis Hypoxia Hypertensive disorder Hypercoagulable state (CMS/HCC) History of DVT (deep vein thrombosis) Disorder of bladder Elevated liver enzymes Status post hysterectomy Restless legs syndrome Pure hypercholesterolemia Pulmonary embolism (CMS/HCC) Primary localized osteoarthrosis of shoulder region Osteoarthritis Obstructive sleep apnea syndrome Acute coronary thrombosis not resulting in myocardial infarction ([facility]) Acute embolism and thrombosis of unspecified deep veins of unspecified lower extremity ([facility]) Diabetic renal disease ([facility]) Disorder of kidney and ureter, unspecified Urinary tract infection, site not specified Encounter for other specified aftercare Generalized anxiety disorder Hyperlipidemia Hypoventilation associated with obesity syndrome ([facility]) Lymphedema, not elsewhere classified Insomnia Major depressive disorder, single episode, unspecified Muscle weakness (generalized) Stage 3a chronic kidney disease ([facility]) Rheumatoid arthritis, unspecified ([facility]) Other abnormalities of breathing Osteoarthritis of right ankle and foot Stiffness of unspecified shoulder, not elsewhere classified Unspecified Escherichia coli (E. coli) as the cause of diseases classified elsewhere Ataxia, unspecified Chronic atrial fibrillation ([facility]) Peripheral vascular disease, unspecified ([facility]) Essential (primary) hypertension Unspecified atrial fibrillation ([facility]/HCC) Chronic systolic CHF (congestive heart failure), NYHA class 4 ([facility]) Other chronic pain Past Medical History: Diagnosis Date Atrial fibrillation ([facility]/HCC) CHF (congestive heart failure) ([facility]) Hypertension Pulmonary embolism ([facility]) Family History Problem Relation Name Age of [...] Disp: , Rfl (more content not included)... [facility] Progress note 05-23-2023 Note Date & Type Note Facility 05-23-2023 Note [place] [facility] - [facility] Subjective Afia Gill is a 72 [...] filling pressures. She (more content not included)... [facility] Progress note 02-19-2023 Note Date & Type [...] All other systems reviewed and are negative. [facility] Progress note 02-19-2023 Note Date & Type [...] hypokinesis. Echocardiogram 2 (more content not included)... [facility] Instructions Note Date & Type Note Facility [...] 9:14 PM Hospital Course Note MR#: [id number] [facility] [facility] Name: Afia Gill Admitted: 01/29/2019 Discharged: [...] and content) DATE CREATED AUTHOR 06/17/2019 [facility] DATE CREATED AUTHOR AUTHOR'S ORGANIZ ATION 03/03/2023 [facility] DATE CREATED AUTHOR AUTHOR'S ORGANIZ ATION 11/17/2023 [facility] DATE CREATED AUTHOR AUTHOR'S ORGANIZ ATION 12/29/2023 [facility] DATE CREATED AUTHOR AUTHOR'S ORGANIZ ATION 12/29/2023 [facility] DATE CREATED AUTHOR AUTHOR'S ORGANIZ ATION 12/31/2023 [facility] Care Teams (unrecognized sec tion and content) Bioinformatics Research Technician Relationship Specialty Start Date End Date Yahir Brothers MD [address] [facility] [address] [place] [id number] PCP - General Internal Medicine 12/20/23 FOR [...] BE BASED ON THE PRIMARY CLINICAL RECORDS. [employer] provides no warranty or guarantee of the accuracy or completeness of information in this document.
[2024-01-04 09:00] LABS: Creatine Kinase 35 U/L (26-192)
== END 2024-01-04 01:14 | disposition home or self-care (01) ==
LOC: LAB 01:13
PROVIDERS: PCP Internal Medicine; Visit Provider Nurse Practitioner Family
DX: Z79.2 Long term (current) use of antibiotics (principal)
CPT/HCPCS: 36415; 82550

== ENCOUNTER 2024-01-04 01:15 | Outpatient (REF) | payer MEDICARE, SELFPAY ==
--- OUTSIDE RECORDS SUMMARY | 2024-01-04 01:18 | XMS_ITS | CCD ---
Author Name Unknown Address [address] [facility] [address] [place] [address] Organization [facility] Care Team Providers Care Youth Pastor Name Role Phone YAHIR BROTHERS Referring Unavailable YAHIR BROTHERS Primary Care Unavailable LAN FROST Attending Unavailable LAN FROST Admitting Unavailable LA Procedure Practitioner Unavailab le UNKNOWN, PROVIDER Surgeon [...] Care Unavailable ANDREA, DR GAO Consulting Unavailable AMHERST, DR JEANETTE Armenta Consulting Unavailable RAMAN GOMEZ Attending Unavailable JESSICA PRECIADO Attending Unavailable EBER JOSHUA Attending Unavailable Yahir Brothers MD Primary Care Provider RAND CRAWFORD Attending Unavailable YAHIR BROTHERS Primary Care Unavailable KORINA OLIVER Admitting Unavailable DANIEL BIRMINGHAM Consulting Unavailable DIVISION OF INFECTIOUS DISEASE, [facility] Consulting Unavailable YAYA KUMAR [...] (1 source) Estrogens Drug Allergy 9 [facility] Rep[facility] (1 source) heparin Drug Allergy 9 [facility] (2 sources) Penicillins; Translations: [PENICILLINS] Drug allergy (disorder) 9 [facility] (2 sources) pregabalin Drug Allergy 9 [facility] (6 sources) Bleach (Sodium Hypochlorite); Translations: [Bleach (Sodium Hypochlorite)] Propensity to adverse reactions (disorder) 9 [facility] (4 sources) Aztreonam; Translations: [ESTROGENS, CONJUGATED] Drug Allergy 9 [facility] (1 source) heparin Drug Allergy [facility] (5 sources) Penicillin; Translations: [PENICILLIN] Drug Allergy 9 [facility] (1 source) Misc-ENV; Translations: [Misc-ENV] Propensity to adverse reactions (disorder) [facility] (4 sources) heparin; Translations: [HEPARIN (PORCINE)] Drug Allergy 9 [facility] (1 source) heparin; Translations: [HEPARIN SODIUM, PORCINE] Drug Allergy 1 [facility] (4 sources) pregabalin; Translations: [PREGABALIN] Drug Allergy 9 [facility] (1 source) Estrogens, Conjugated (HALF-WAY) Drug Allergy 9 [facility] (3 sources) Other; Translations: [OTHER] Propensity to adverse reactions 1 Rash [facility] Medications Completed/Discontinued Medications Medication Drug Class(es) Dates Sig (Normalized) Sig (Original) amLODIPine 5 mg oral tablet (1 source) Dihydropyridine Calcium [employer] Kimmei take 1 tablet by mouth in the [...] ABSOLUTE BASOPHIL 0.1 X10E9/L Normal 0.0-0.2 [facility] Comment on above: Performed By: #### U A #### [facility] ([id number]) [address] [place] [address] 33158 ABSOLUTE NEUTROPHIL 9.5 X10E9/L High 1.5-6.6 [facility] Comment on above: Performed By: #### U A #### [facility] ([id number]) [address] [place] [address] 49863 Basophils/100 WBC (Bld) 0.5 % Normal [facility] Comment on above: Performed By: #### U A #### [facility] ([id number]) [address] [place] [address] 14043 Eosinophils (Bld) [#/Vol] 0.8 10*3/uL High 0.0-0.4 [facility] Comment on above: Performed By: #### U A #### [facility] ([id number]) [address] [place] [address] 37650 Eosinophils/100 WBC (Bld) 5.8 % Normal [facility] Comment on above: Performed By: #### U A #### [facility] ([id number]) [address] [place] [address] 41734 Erythrocyte distribution width (RBC) [Ratio] 13.6 % Normal 11.5-15.0 [facility] Comment on above: Performed By: #### U A #### [facility] ([id number]) [address] [place] [address] 36978 Hematocrit (Bld) [Volume fraction] 35.5 % Normal 35-47 [facility] Comment on above: Performed By: #### U A #### [facility] ([id number]) [address] [place] [address] 93695 Hemoglobin (Bld) [Mass/Vol] 11.9 g/dL Normal 11.7-15.5 [facility] Comment on above: Performed By: #### U A #### [facility] ([id number]) [address] [place] [address] 41056 Lymphocytes (Bld) [#/Vol] 2.6 10*3/uL Normal 1.0-3.5 [facility] Comment on above: Performed By: #### U A #### [facility] ([id number]) [address] [place] [address] 01245 Lymphocytes/100 WBC (Bld) 19.1 % Normal [facility] Comment on above: Performed By: #### U A #### [facility] ([id number]) [address] [place] [address] 49466 MCH (RBC) [Entitic mass] 28.7 pg Normal 27-34 [facility] Comment on above: Performed By: #### U A #### [facility] ([id number]) [address] [place] [address] 57704 MCHC (RBC) [Mass/Vol] 33.4 g/dL Normal 32-36 [facility] Comment on above: Performed By: #### U A #### [facility] ([id number]) [address] [place] [address] 55553 MCV (RBC) [Entitic vol] 86 fL Normal 80-100 [facility] Comment on above: Performed By: #### U A #### [facility] ([id number]) [address] [place] [address] 27196 Monocytes (Bld) [#/Vol] 0.7 10*3/uL Normal 0-0.9 [facility] Comment on above: Performed By: #### U A #### [facility] ([id number]) [address] [place] [address] 33316 Monocytes/100 WBC (Bld) 5.3 % Normal [facility] Comment on above: Performed By: #### U A #### [facility] ([id number]) [address] [place] [address] 00053 Neutrophils/100 WBC (Bld) 69.3 % Normal [facility] Comment on above: Performed By: #### U A #### [facility] ([id number]) [address] [place] [address] 87165 Platelet mean volume (Bld) [Entitic vol] 8.7 fL Normal 7-12 [facility] Comment on above: Performed By: #### U A #### [facility] ([id number]) [address] [place] [address] 84179 Platelets (Bld) [#/Vol] 335 10*3/uL Normal 150-450 [facility] Comment on above: Performed By: #### U A #### [facility] ([id number]) [address] [place] [address] 10162 RBC COUNT 4.13 X10E12/L Normal 3.80-5.20 [facility] Comment on above: Performed By: #### U A #### [facility] ([id number]) [address] [place] [address] 36991 WBC (Bld) [#/Vol] 13.7 10*3/uL High 4.0-11.0 [facility] Comment on above: Performed By: #### U A #### [facility] ([id number]) [address] [place] [address] 76408 COMPREHENSIVE METABOLIC PANE Tyrone 12-28-2023 Albumin [Mass/Vol] 3.1 g/dL Low 3.2-5.3 [facility] Comment on above: Performed By: #### U A #### [facility] ([id number]) [address] [place] [address] 27434 ALP [Catalytic activity/Vol] 68 U/L Normal 39-130 [facility] Comment on above: Performed By: #### U A #### [facility] ([id number]) [address] [place] [address] [place] [address] ALT [Catalytic activity/Vol] 21 U/L Normal 0-31 [facility] Comment on above: Performed By: #### U A #### [facility] ([id number]) [address] [place] [address] [place] [address] Anion gap [Moles/Vol] 10 mmol/L Normal 5-15 [facility] Comment on above: Performed By: #### U A #### [facility] ([id number]) [address] [place] [address] 55648 AST [Catalytic activity/Vol] 21 U/L Normal 0-41 [facility] Comment on above: Performed By: #### U A #### [facility] ([id number]) [address] [place] [address] [place] [address] Bilirubin [Mass/Vol] 0.4 mg/dL Normal 0.3-1.2 [facility] Comment on above: Performed By: #### U A #### [facility] ([id number]) [address] [place] [address] [place] [address] Calcium [Mass/Vol] 8.6 mg/dL Normal 8.5-10.5 [facility] Comment on above: Performed By: #### U A #### [facility] ([id number]) [address] [place] [address] [place] [address] Chloride [Moles/Vol] 98 mmol/L Normal 98-109 [facility] Comment on above: Performed By: #### U A #### [facility] ([id number]) [address] [place] [address] [place] [address] CO2 [Moles/Vol] 31 mmol/L Normal 22-32 [facility] Comment on above: Performed By: #### U A #### [facility] ([id number]) [address] [place] [address] 67907 Creatinine [Mass/Vol] 0.72 mg/dL Normal 0.40-1.00 [facility] Comment on above: Result Comment: METH OD TRACEABLE TO IDMS STANDARD Performed By: #### U A #### [facility] ([id number]) [address] [place] [address] 67781 GFR/1.73 sq M.predicted among non-blacks MDRD (S/P/Bld) [Vol rate/Area] 89 mL/min/{1.73_m2} Normal >59 [facility] Comment on above: Result Comment: Reported eGFR is based on the CKD-EPI 2020 equation that does not use a race coefficient. Performed By: #### U A #### [facility] ([id number]) [address] [place] [address] 12924 Glucose [Mass/Vol] 123 mg/dL High 65-99 [facility] Comment on above: Performed By: #### U A #### [facility] ([id number]) [address] [place] [address] 28206 Potassium [Moles/Vol] 3.7 mmol/L Normal 3.5-5.0 [facility] Comment on above: Performed By: #### U A #### [facility] ([id number]) [address] [place] [address] 10591 Protein [Mass/Vol] 7.1 g/dL Normal 6.0-8.0 [facility] Comment on above: Performed By: #### U A #### [facility] ([id number]) [address] [place] [address] 70455 Sodium [Moles/Vol] 139 mmol/L Normal 134-146 [facility] Comment on above: Performed By: #### U A #### [facility] ([id number]) [address] [place] [address], [place] [address] Urea nitrogen [Mass/Vol] 16 mg/dL Normal 5-27 [facility] Comment on above: Performed By: #### U A #### [facility] ([id number]) [address] [place] [address] 66684 MAGNESIUMon 12-28-2023 Magnesium [Mass/Vol] 2.3 mg/dL Normal 1.8-2.6 [facility] Comment on above: Performed By: #### U A #### [facility] ([id number]) [address] [place] [address] 66993 PROTIME AND INRon 12-28-2023 INR Coag (PPP) [Relative time] 2.5 {INR} High 0.8-1.1 [facility] Comment on above: Performed By: #### U A #### [facility] ([id number]) [address] [place] [address] 37207 PT Coag (PPP) [Time] 28.0 s High 9.8-13.2 [facility] Comment on above: Result Comment: NEW REFERENCE RANGE Performed By: #### U A #### [facility] ([id number]) [address] [place] [address] 47742 Vancomycin trough [Mass/Vol] on 12-28-2023 VANCOMYCIN TROUGH 26.7 ug/mL Critically high 5.0-20.0 [facility] Comment on above: Performed By: #### U A #### [facility] ([id number]) [address] [place] [address] 97216 CBC AND AUTO DIFFon 12-27-19 24 ABSOLUTE BASOPHIL 0.0 X10E9/L Normal 0.0-0.2 [facility] Comment on above: Performed By: #### C BCA, CMP, 1987- #### [facility] ([id number]) [address] [place] [address] 11358 #### 07900-6 #### [facility] ([id number]) [address], [address] [place] [address] ABSOLUTE NEUTROPHIL 8.9 X10E9/L High 1.5-6.6 [facility] Comment on above: Performed By: #### Chanel ERICKSON CMP, 1988-02 #### [facility] ([id number]) [address] [place] [address] 90664 #### 99099-4 #### [facility] ([id number]) [address], [address] [place] [address] Basophils/100 WBC (Bld) 0.3 % Normal [facility] Comment on above: Performed By: #### Chanel ERICKSON CMP, 1988-02 #### [facility] ([id number]) [address] [place] [address] 68766 #### 18010-1 #### [facility] ([id number]) [address] [place] [address] Eosinophils (Bld) [#/Vol] 0.8 10*3/uL High 0.0-0.4 [facility] Comment on above: Performed By: #### Chanel ERICKSON CMP, 1988-02 #### [facility] ([id number]) [address] [place] [address] 24037 #### 16452-6 #### [facility] ([id number]) [address] [place] [address] Eosinophils/100 WBC (Bld) 6.1 % Normal [facility] Comment on above: Performed By: #### Chanel ERICKSON CMP, 1988-02 #### [facility] ([id number]) [address] [place] [address] 96880 #### 50919-6 #### [facility] ([id number]) [address], [address] [place] [address] Erythrocyte distribution width (RBC) [Ratio] 13.7 % Normal 11.5-15.0 [facility] Comment on above: Performed By: #### Chanel ERICKSON CMP, 1988-02 #### [facility] ([id number]) [address] [place] [address] 31396 #### 75535-9 #### [facility] ([id number]) [address] [facility], [address] [place] [address] Hematocrit (Bld) [Volume fraction] 34.5 % Low 35-47 [facility] Comment on above: Performed By: #### Chanel ERICKSON [facility], 1988-02 #### [facility] ([id number]) [address] [place] [address] 83401 #### 24841-9 #### [facility] ([id number]) [address] [facility], [address] [place] [address] Hemoglobin (Bld) [Mass/Vol] 11.5 g/dL Low 11.7-15.5 [facility] Comment on above: Performed By: #### Chanel ERICKSON [facility], 1988-02 #### [facility] ([id number]) [address] [place] [address] 46635 #### 29620-0 #### [facility] ([id number]) [address], [address] [place] [address] Lymphocytes (Bld) [#/Vol] 2.4 10*3/uL Normal 1.0-3.5 [facility] Comment on above: Performed By: #### Chanel ERICKSON CMP, 1988-02 #### [facility] ([id number]) [address] [place] [address] 78131 #### 06359-5 #### [facility] ([id number]) [address], [address] [place] [address] Lymphocytes/100 WBC (Bld) 18.4 % Normal [facility] Comment on above: Performed By: #### Chanel ERICKSON CMP, 1988-02 #### [facility] ([id number]) [address] [place] [address] 44450 #### 02349-2 #### [facility] ([id number]) [address], [address] [place] [address] MCH (RBC) [Entitic mass] 28.8 pg Normal 27-34 [facility] Comment on above: Performed By: #### Chanel ERICKSON CMP, 1988-02 #### [facility] ([id number]) [address] [place] [address] 15504 #### 04445-6 #### [facility] ([id number]) [address], [address] [place] [address] MCHC (RBC) [Mass/Vol] 33.3 g/dL Normal 32-36 [facility] Comment on above: Performed By: #### Chanel ERICKSON [facility], 1988-02 #### [facility] ([id number]) [address] [place] [address] 13307 #### 77238-8 #### [facility] ([id number]) [address], [address] [place] [address] MCV (RBC) [Entitic vol] 87 fL Normal 80-100 [facility] Comment on above: Performed By: #### Chanel ERICKSON CMP, 1988-02 #### [facility] ([id number]) [address] [place] [address] 85581 #### 47668-6 #### [facility] ([id number]) [address], [address] [place] [address] Monocytes (Bld) [#/Vol] 0.9 10*3/uL Normal 0-0.9 [facility] Comment on above: Performed By: #### Chanel ERICKSON CMP, 1988-02 #### [facility] ([id number]) [address] [place] [address] 42643 #### 27105-1 #### [facility] ([id number]) [address] [place] [address] Monocytes/100 WBC (Bld) 7.1 % Normal [facility] Comment on above: Performed By: #### Chanel ERICKSON CMP, 1988-02 #### [facility] ([id number]) [address] [place] [address] 37409 #### 57101-0 #### [facility] ([id number]) [address] [place] [address] Neutrophils/100 WBC (Bld) 68.1 % Normal [facility] Comment on above: Performed By: #### Chanel ERICKSON CMP, 1988-02 #### [facility] ([id number]) [address] [place] [address] 99779 #### 60088-3 #### [facility] ([id number]) [address] [place] [address] Platelet mean volume (Bld) [Entitic vol] 8.7 fL Normal 7-12 [facility] Comment on above: Performed By: #### Chanel ERICKSON CMP, 1988-02 #### [facility] ([id number]) [address] [place] [address] 19606 #### 60075-0 #### [facility] ([id number]) [address] [place] [address] Platelets (Bld) [#/Vol] 323 10*3/uL Normal 150-450 [facility] Comment on above: Performed By: #### C BCA, CMP, 1988-02 #### [facility] ([id number]) [address] [place] [address] 18490 #### 57873-5 #### [facility] ([id number]) [address] [facility], [address] [place] [address] RBC COUNT 3.98 X10E12/L Normal 3.80-5.20 [facility] Comment on above: Performed By: #### C BCA, CMP, 1988-02 #### [facility] ([id number]) [address] [place] [address] 11376 #### 22617-4 #### [facility] ([id number]) [address] [facility], [address] [place] [address] WBC (Bld) [#/Vol] 13.1 10*3/uL High 4.0-11.0 [facility] Comment on above: Performed By: #### C BCA, CMP, 1988-02 #### [facility] ([id number]) [address] [place] [address] 06729 #### 62443-7 #### [facility] ([id number]) [address] [facility] [place] [address] COMPREHENSIVE METABOLIC PANE Tyrone 12-27-2023 Albumin [Mass/Vol] 3.0 g/dL Low 3.2-5.3 [facility] Comment on above: Performed By: #### C BCA, CMP, 1988-02 #### [facility] ([id number]) [address] [place] [address] 67715 #### 18902-0 #### [facility] ([id number]) [address] [facility] [place] [address] ALP [Catalytic activity/Vol] 68 U/L Normal 39-130 [facility] Comment on above: Performed By: #### Chanel BCA, [facility], 1988-02 #### [facility] ([id number]) [address] [place] [address] 86719 #### 97237-6 #### [facility] ([id number]) [address] [place] [address] ALT [Catalytic activity/Vol] 17 U/L Normal 0-31 [facility] Comment on above: Performed By: #### Chanel BCA, [facility], 1988-02 #### [facility] ([id number]) [address] [place] [address] 26751 #### 97440-0 #### [facility] ([id number]) [address] [place] [address] Anion gap [Moles/Vol] 8 mmol/L Normal 5-15 [facility] Comment on above: Performed By: #### Chanel ERICKSON, [facility], 1988-02 #### [facility] ([id number]) [address] [place] [address] 04094 #### 28460-4 #### [facility] ([id number]) [address] [place] [address] AST [Catalytic activity/Vol] 16 U/L Normal 0-41 [facility] Comment on above: Performed By: #### Chanel BCA, CMP, 1988-02 #### [facility] ([id number]) [address] [place] [address] 23884 #### 95335-5 #### [facility] ([id number]) [address] [place] [address] Bilirubin [Mass/Vol] 0.5 mg/dL Normal 0.3-1.2 [facility] Comment on above: Performed By: #### Chanel BCA, CMP, 1988-02 #### [facility] ([id number]) [address] [place] [address] 50400 #### 26615-8 #### [facility] ([id number]) [address] [place] [address] Calcium [Mass/Vol] 8.3 mg/dL Low 8.5-10.5 [facility] Comment on above: Performed By: #### Chanel ERICKSON CMP, 1988-02 #### [facility] ([id number]) [address] [place] [address] 82442 #### 24374-4 #### [facility] ([id number]) [address] [facility] [place] [address] Chloride [Moles/Vol] 99 mmol/L Normal 98-109 [facility] Comment on above: Performed By: #### Chanel ERICKSON CMP, 1988-02 #### [facility] ([id number]) [address] [place] [address] 77941 #### 29788-3 #### [facility] ([id number]) [address] [facility] [place] [address] CO2 [Moles/Vol] 31 mmol/L Normal 22-32 [facility] Comment on above: Performed By: #### Chanel ERICKSON CMP, 1988-02 #### [facility] ([id number]) [address] [place] [address] 36887 #### 71528-9 #### [facility] ([id number]) [address] [place] [address] Creatinine [Mass/Vol] 0.71 mg/dL Normal 0.40-1.00 [facility] Comment on above: Result Comment: METH OD TRACEABLE TO IDMS STANDARD Performed By: #### C DRE CMP, 1988-02 #### [facility] ([id number]) [address] [place] [address] 53874 #### 54537-1 #### [facility] ([id number]) [address] [place] [address] eGFR (CKD-EPI) NON-RACE DEPENDENT >90 Normal >59 [facility] Comment on above: Result Comment: Reported eGFR is based on the CKD-EPI 2020 equation that does not use a race coefficient. Performed By: #### Chanel ERICKSON CMP, 1988-02 #### [facility] ([id number]) [address] [place] [address] #### [id number] #### [facility] ([id number]) [address] [facility], [address] [place] [address] Glucose [Mass/Vol] 119 mg/dL High 65-99 [facility] Comment on above: Performed By: #### Chanel ERICKSON CMP, 1986-02 #### [facility] ([id number]) [address] [place] [id number] #### [id number] #### [facility] ([id number]) [address] [facility], [address] [place] [address] Potassium [Moles/Vol] 3.6 mmol/L Normal 3.5-5.0 [facility] Comment on above: Performed By: #### Chanel ERICKSON CMP, 1986-02 #### [facility] ([id number]) [address] [place] [address] #### [id number] #### [facility] ([id number]) [address], [address] [place] [address] Protein [Mass/Vol] 7.0 g/dL Normal 6.0-8.0 [facility] Comment on above: Performed By: #### Chanel ERICKSON CMP, 1986-02 #### [facility] ([id number]) [address] [place] [address] #### [id number] #### [facility] ([id number]) [address] [facility], [address] [place] [address] Sodium [Moles/Vol] 138 mmol/L Normal 134-146 [facility] Comment on above: Performed By: #### Chanel ERICKSON [facility], 1986-02 #### [facility] ([id number]) [address] [place] [address] #### [id number] #### [facility] ([id number]) [address] [facility], [address] [place] [address] Urea nitrogen [Mass/Vol] 18 mg/dL Normal 5-27 [facility] Comment on above: Performed By: #### Chanel ERICKSON [facility], 1988-02 #### [facility] ([id number]) [address] [place] [address] 51024 #### 08215-5 #### [facility] ([id number]) [address] [facility], [address] [place] [address] Glucose Glucometer (BldC) [M ass/Vol]on 12-27-2023 Glucose [Mass/Vol] 149 mg/dL High 65-99 [facility] Glucose [Mass/Vol] 156 mg/dL High 65-99 [facility] Glucose [Mass/Vol] 181 mg/dL High 65-99 [facility] MAGNESIUMon 12-27-2023 Magnesium [Mass/Vol] 2.3 mg/dL Normal 1.8-2.6 [facility] Comment on above: Performed By: #### U A #### [facility] ([id number]) [address] [place] [address] 61110 PROTIME AND INRon 12-27-2023 INR Coag (PPP) [Relative time] 2.9 {INR} High 0.8-1.1 [facility] Comment on above: Performed By: #### C DRE, CMP, 1988-02 #### [facility] ([id number]) [address] [place] [address] 47571 #### 47172-3 #### [facility] ([id number]) [address], [address] [place] [address] PT Coag (PPP) [Time] 32.6 s High 9.8-13.2 [facility] Comment on above: Result Comment: NEW REFERENCE RANGE Performed By: #### C DRE CMP, 1988-02 #### [facility] ([id number]) [address] [place] [address] 18358 #### 34942-1 #### [facility] ([id number]) [address], [address] [place] [address] CBC AND AUTO DIFFon 12-26-19 24 ABSOLUTE BASOPHIL 0.1 X10E9/L Normal 0.0-0.2 [facility] Comment on above: Performed By: #### Chanel ERICKSON [facility], 1988-02 #### [facility] ([id number]) [address] [place] [address] 00003 #### 93547-1 #### [facility] ([id number]) [address], [address] [place] [address] ABSOLUTE NEUTROPHIL 11.1 X10E9/L High 1.5-6.6 [facility] Comment on above: Performed By: #### Chanel ERICKSON, CMP, 1988-02 #### [facility] ([id number]) [address] [place] [address] 72664 #### 67261-6 #### [facility] ([id number]) [address], [address] [place] [address] Basophils/100 WBC (Bld) 0.4 % Normal [facility] Comment on above: Performed By: #### C DRE, [facility], 1988-02 #### [facility] ([id number]) [address] [place] [address] 95123 #### 98884-7 #### [facility] ([id number]) [address], [address] [place] [address] Eosinophils (Bld) [#/Vol] 0.8 10*3/uL High 0.0-0.4 [facility] Comment on above: Performed By: #### Chanel ERICKSON, [facility], 1988-02 #### [facility] ([id number]) [address] [place] [address] 41322 #### 97082-9 #### [facility] ([id number]) [address], [address] [place] [address] Eosinophils/100 WBC (Bld) 5.4 % Normal [facility] Comment on above: Performed By: #### Chanel ERICKSON [facility], 1988-02 #### [facility] ([id number]) [address] [place] [address] 67691 #### 08423-0 #### [facility] ([id number]) [address], [address] [place] [address] Erythrocyte distribution width (RBC) [Ratio] 13.9 % Normal 11.5-15.0 [facility] Comment on above: Performed By: #### Chanel ERICKSON [facility], 1988-02 #### [facility] ([id number]) [address] [place] [address] 11073 #### 54582-9 #### [facility] ([id number]) [address], [address] [place] [address] Hematocrit (Bld) [Volume fraction] 35.9 % Normal 35-47 [facility] Comment on above: Performed By: #### Chanel ERICKSON, [facility], 1988-02 #### [facility] ([id number]) [address] [place] [address] 02574 #### 28864-8 #### [facility] ([id number]) [address], [address] [place] [address] Hemoglobin (Bld) [Mass/Vol] 11.7 g/dL Normal 11.7-15.5 [facility] Comment on above: Performed By: #### Chanel ERICKSON [facility], 1988-02 #### [facility] ([id number]) [address] [place] [address] 70579 #### 87026-2 #### [facility] ([id number]) [address], [address] [place] [address] Lymphocytes (Bld) [#/Vol] 2.6 10*3/uL Normal 1.0-3.5 [facility] Comment on above: Performed By: #### Chanel ERICKSON [facility], 1988-02 #### [facility] ([id number]) [address] [place] [address] 40032 #### 05199-3 #### [facility] ([id number]) [address], [address] [place] [address] Lymphocytes/100 WBC (Bld) 16.6 % Normal [facility] Comment on above: Performed By: #### Chanel ERICKSON [facility], 1988-02 #### [facility] ([id number]) [address] [place] [address] 53898 #### 38493-1 #### [facility] ([id number]) [address], [address] [place] [address] MCH (RBC) [Entitic mass] 28.2 pg Normal 27-34 [facility] Comment on above: Performed By: #### Chanel ERICKSON [facility], 1988-02 #### [facility] ([id number]) [address] [place] [address] 80852 #### 80947-8 #### [facility] ([id number]) [address] [place] [address], [address] [place] [address] MCHC (RBC) [Mass/Vol] 32.7 g/dL Normal 32-36 [facility] Comment on above: Performed By: #### Chanel ERICKSON CMP, 1988-02 #### [facility] ([id number]) [address] [place] [address] 31668 #### 00989-1 #### [facility] ([id number]) [address] [place] [address], [address] [place] [address] MCV (RBC) [Entitic vol] 86 fL Normal 80-100 [facility] Comment on above: Performed By: #### Chanel ERICKSON CMP, 1988-02 #### [facility] ([id number]) [address] [place] [address] 26374 #### 44748-3 #### [facility] ([id number]) [address] [place] [address], [address] [address] Monocytes (Bld) [#/Vol] 0.9 10*3/uL Normal 0-0.9 [facility] Comment on above: Performed By: #### Chanel ERICKSON CMP, 1988-02 #### [facility] ([id number]) [address] [place] [address] 52187 #### 89436-7 #### [facility] ([id number]) [address] [place] [address], [address] [place] [address] Monocytes/100 WBC (Bld) 5.9 % Normal [facility] Comment on above: Performed By: #### Chanel ERICKSON CMP, 1988-02 #### [facility] ([id number]) [address] [place] [address] 64071 #### 71125-3 #### [facility] ([id number]) [address], [address] [place] [address] Neutrophils/100 WBC (Bld) 71.7 % Normal [facility] Comment on above: Performed By: #### Chanel ERICKSON CMP, 1988-02 #### [facility] ([id number]) [address] [place] [address] 42949 #### 31130-6 #### [facility] ([id number]) [address], [address] [place] [address] Platelet mean volume (Bld) [Entitic vol] 8.6 fL Normal 7-12 [facility] Comment on above: Performed By: #### Chanel ERICKSON CMP, 1988-02 #### [facility] ([id number]) [address] [place] [address] 98845 #### 89263-2 #### [facility] ([id number]) [address], [address] [place] [address] Platelets (Bld) [#/Vol] 338 10*3/uL Normal 150-450 [facility] Comment on above: Performed By: #### Chanel ERICKSON CMP, 1988-02 #### [facility] ([id number]) [address] [place] [address] 05212 #### 68088-9 #### [facility] ([id number]) [address], [address] [place] [address] RBC COUNT 4.16 X10E12/L Normal 3.80-5.20 [facility] Comment on above: Performed By: #### Chanel ERICKSON CMP, 1988-02 #### [facility] ([id number]) [address] [place] [address] 02663 #### 08478-3 #### [facility] ([id number]) [address], [address] [place] [address] WBC (Bld) [#/Vol] 15.5 10*3/uL High 4.0-11.0 [facility] Comment on above: Performed By: #### Chanel ERICKSON, CMP, 1988-02 #### [facility] ([id number]) [address] [place] [address] 71878 #### 85715-1 #### [facility] ([id number]) [address], [address] [place] [address] COMPREHENSIVE METABOLIC PANE Tyrone 12-26-2023 Albumin [Mass/Vol] 3.2 g/dL Normal 3.2-5.3 [facility] Comment on above: Performed By: #### C DRE CMP, 1988-02 #### [facility] ([id number]) [address] [place] [address] 13170 #### 19076-8 #### [facility] ([id number]) [address], [address] [place] [address] ALP [Catalytic activity/Vol] 69 U/L Normal 39-130 [facility] Comment on above: Performed By: #### C DRE, CMP, 1988-02 #### [facility] ([id number]) [address] [place] [address] 49671 #### 77211-6 #### [facility] ([id number]) [address] [facility], [address] [place] [address] ALT [Catalytic activity/Vol] 16 U/L Normal 0-31 [facility] Comment on above: Performed By: #### C BCA, CMP, 1988-02 #### [facility] ([id number]) [address] [place] [address] 84852 #### 85402-7 #### [facility] ([id number]) [address], [address] [place] [address] Anion gap [Moles/Vol] 10 mmol/L Normal 5-15 [facility] Comment on above: Performed By: #### Chanel ERICKSON CMP, 1988-02 #### [facility] ([id number]) [address] [place] [address] 19264 #### 63670-5 #### [facility] ([id number]) [address], [address] [place] [address] AST [Catalytic activity/Vol] 17 U/L Normal 0-41 [facility] Comment on above: Performed By: #### Chanel ERICKSON [facility], 1988-02 #### [facility] ([id number]) [address] [place] [address] 83880 #### 57410-2 #### [facility] ([id number]) [address], [address] [place] [address] Bilirubin [Mass/Vol] 0.4 mg/dL Normal 0.3-1.2 [facility] Comment on above: Performed By: #### Chanel ERICKSON [facility], 1988-02 #### [facility] ([id number]) [address] [place] [address] 38010 #### 98765-9 #### [facility] ([id number]) [address], [address] [place] [address] Calcium [Mass/Vol] 8.7 mg/dL Normal 8.5-10.5 [facility] Comment on above: Performed By: #### Chanel ERICKSON CMP, 1988-02 #### [facility] ([id number]) [address] [place] [address] 86759 #### 28153-6 #### [facility] ([id number]) [address], [address] [place] [address] Chloride [Moles/Vol] 98 mmol/L Normal 98-109 [facility] Comment on above: Performed By: #### C DRE [facility], 1988-02 #### [facility] ([id number]) [address] [place] [address] 91571 #### 73332-7 #### [facility] ([id number]) [address], [address] [place] [address] CO2 [Moles/Vol] 31 mmol/L Normal 22-32 [facility] Comment on above: Performed By: #### C DRE [facility], 1988-02 #### [facility] ([id number]) [address] [place] [address] 15517 #### 20692-9 #### [facility] ([id number]) [address] [facility], [address] [place] [address] Creatinine [Mass/Vol] 0.78 mg/dL Normal 0.40-1.00 [facility] Comment on above: Result Comment: METH OD TRACEABLE TO IDMS STANDARD Performed By: #### Chanel ERICKSON [facility], 1988-02 #### [facility] ([id number]) [address] [place] [address] 36354 #### 18460-8 #### [facility] ([id number]) [address], [address] [place] [address] GFR/1.73 sq M.predicted among non-blacks MDRD (S/P/Bld) [Vol rate/Area] 81 mL/min/{1.73_m2} Normal >59 [facility] Comment on above: Result Comment: Reported eGFR is based on the CKD-EPI 2020 equation that does not use a race coefficient. Performed By: #### Chanel ERICKSON CMP, 1988-02 #### [facility] ([id number]) [address] [place] [address] 69722 #### 62936-4 #### [facility] ([id number]) [address] [place] [address] Glucose [Mass/Vol] 129 mg/dL High 65-99 [facility] Comment on above: Performed By: #### Chanel ERICKSON CMP, 1988-02 #### [facility] ([id number]) [address] [place] [address] 66849 #### 00909-8 #### [facility] ([id number]) [address], [address] [place] [address] Potassium [Moles/Vol] 3.8 mmol/L Normal 3.5-5.0 [facility] Comment on above: Performed By: #### Chanel ERICKSON CMP, 1988-02 #### [facility] ([id number]) [address] [place] [address] 78465 #### 75102-6 #### [facility] ([id number]) [address] [place] [address] Protein [Mass/Vol] 7.3 g/dL Normal 6.0-8.0 [facility] Comment on above: Performed By: #### Chanel ERICKSON CMP, 1988-02 #### [facility] ([id number]) [address] [place] [address] 72634 #### 33516-6 #### [facility] ([id number]) [address] [place] [address] Sodium [Moles/Vol] 139 mmol/L Normal 134-146 [facility] Comment on above: Performed By: #### Chanel ERICKSON CMP, 1988-02 #### [facility] ([id number]) [address] [place] [address] 18863 #### 41060-3 #### [facility] ([id number]) [address] [place] [address] Urea nitrogen [Mass/Vol] 19 mg/dL Normal 5-27 [facility] Comment on above: Performed By: #### Chanel ERICKSON [facility], 1988-02 #### [facility] ([id number]) [address] [place] [address] #### 54283-2 #### [facility] ([id number]) [address], [address] [place] [address] Glucose Glucometer (BldC) [M ass/Vol]on 12-26-2023 Glucose [Mass/Vol] 146 mg/dL High 65-99 [facility] Glucose [Mass/Vol] 182 mg/dL High 65-99 [facility] Glucose [Mass/Vol] 108 mg/dL High 65-99 [facility] MAGNESIUMon 12-26-2023 Magnesium [Mass/Vol] 2.3 mg/dL Normal 1.8-2.6 [facility] Comment on above: Performed By: #### Chanel ERICKSON [facility], 1988-02 #### [facility] ([id number]) [address] [place] [address] 24287 #### 57381-2 #### [facility] ([id number]) [address], [address] [address] MR FOOT RT W WO CONTon 12-25 [...] Alberto MD on 12/26/2023 12:57 PM Normal [facility] PROTIME AND INRon 12-26-2023 INR Coag (PPP) [Relative time] 3.0 {INR} High 0.8-1.1 [facility] Comment on above: Performed By: #### C DRE [facility], 1988-02 #### [facility] ([id number]) [address] [place] [address] 40635 #### 37041-5 #### [facility] ([id number]) [address], [address] [place] [address] PT Coag (PPP) [Time] 33.3 s High 9.8-13.2 [facility] Comment on above: Result Comment: NEW REFERENCE RANGE Performed By: #### C DRE [facility], 1988-02 #### [facility] ([id number]) [address] [place] [address] 10983 #### 45846-6 #### [facility] ([id number]) [address] [facility], [address] [place] [address] Vancomycin trough [Mass/Vol] on 12-26-2023 VANCOMYCIN TROUGH 11.6 ug/mL Normal 5.0-20.0 [facility] Comment on above: Performed By: #### Chanel ERICKSON, CMP, 1988-02 #### [facility] ([id number]) [address] [place] [address] 07332 #### 91032-2 #### [facility] ([id number]) [address], [address] [place] [address] CBC AND AUTO DIFFon 12-25-19 24 ABSOLUTE BASOPHIL 0.1 X10E9/L Normal 0.0-0.2 [facility] Comment on above: Performed By: #### Chanel ERICKSON, CMP, 1988-02 #### [facility] ([id number]) [address] [place] [address] 66572 #### 86954-8 #### [facility] ([id number]) [address], [address] [place] [address] ABSOLUTE NEUTROPHIL 9.4 X10E9/L High 1.5-6.6 [facility] Comment on above: Performed By: #### Chanel ERICKSON, CMP, 1988-02 #### [facility] ([id number]) [address] [place] [address] 51313 #### 35722-7 #### [facility] ([id number]) [address], [address] [place] [address] Basophils/100 WBC (Bld) 0.4 % Normal [facility] Comment on above: Performed By: #### Chanel ERICKSON, CMP, 1988-02 #### [facility] ([id number]) [address] [place] [address] 71099 #### 89078-1 #### [facility] ([id number]) [address], [address] [place] [address] Eosinophils (Bld) [#/Vol] 0.7 10*3/uL High 0.0-0.4 [facility] Comment on above: Performed By: #### Chanel ERICKSON [facility], 1988-02 #### [facility] ([id number]) [address] [place] [address] 03839 #### 74519-0 #### [facility] ([id number]) [address], [address] [place] [address] Eosinophils/100 WBC (Bld) 5.3 % Normal [facility] Comment on above: Performed By: #### Chanel ERICKSON [facility], 1988-02 #### [facility] ([id number]) [address] [place] [address] 87345 #### 71779-0 #### [facility] ([id number]) [address], [address] [place] [address] Erythrocyte distribution width (RBC) [Ratio] 13.7 % Normal 11.5-15.0 [facility] Comment on above: Performed By: #### Chanel ERICKSON [facility], 1988-02 #### [facility] ([id number]) [address] [place] [address] 83118 #### 53555-1 #### [facility] ([id number]) [address], [address] [place] [address] Hematocrit (Bld) [Volume fraction] 37.8 % Normal 35-47 [facility] Comment on above: Performed By: #### Chanel ERICKSON [facility], 1988-02 #### [facility] ([id number]) [address] [place] [address] 01699 #### 94920-3 #### [facility] ([id number]) [address], [address] [place] [address] Hemoglobin (Bld) [Mass/Vol] 12.6 g/dL Normal 11.7-15.5 [facility] Comment on above: Performed By: #### Chanel REICKSON CMP, 1988-02 #### [facility] ([id number]) [address] [place] [address] 67009 #### 68292-2 #### [facility] ([id number]) [address], [address] [place] [address] Lymphocytes (Bld) [#/Vol] 2.4 10*3/uL Normal 1.0-3.5 [facility] Comment on above: Performed By: #### Chanel ERICKSON [facility], 1988-02 #### [facility] ([id number]) [address] [place] [address] 39565 #### 09283-4 #### [facility] ([id number]) [address], [address] [place] [address] Lymphocytes/100 WBC (Bld) 17.5 % Normal [facility] Comment on above: Performed By: #### Chanel ERICKSON [facility], 1988-02 #### [facility] ([id number]) [address] [place] [address] 01371 #### 47173-9 #### [facility] ([id number]) [address], [address] [place] [address] MCH (RBC) [Entitic mass] 28.8 pg Normal 27-34 [facility] Comment on above: Performed By: #### Chanel ERICKSON [facility], 1988-02 #### [facility] ([id number]) [address] [place] [address] 53782 #### 25455-0 #### [facility] ([id number]) [address], [address] [place] [address] MCHC (RBC) [Mass/Vol] 33.4 g/dL Normal 32-36 [facility] Comment on above: Performed By: #### Chanel ERICKSON [facility], 1988-02 #### [facility] ([id number]) [address] [place] [address] 60469 #### 32010-0 #### [facility] ([id number]) [address] [place] [address] MCV (RBC) [Entitic vol] 86 fL Normal 80-100 [facility] Comment on above: Performed By: #### Chanel ERICKSON CMP, 1988-02 #### [facility] ([id number]) [address] [place] [address] 57091 #### [id number] #### [facility] ([id number]) [address], [address] [place] [address] Monocytes (Bld) [#/Vol] 1.1 10*3/uL High 0-0.9 [facility] Comment on above: Performed By: #### Chanel ERICKSON CMP, 1988-02 #### [facility] ([id number]) [address] [place] [address] 75104 #### 41152-3 #### [facility] ([id number]) [address], [address] [place] [address] Monocytes/100 WBC (Bld) 8.0 % Normal [facility] Comment on above: Performed By: #### Chanel ERICKSON CMP, 1988-02 #### [facility] ([id number]) [address] [place] [address] 39001 #### 38867-4 #### [facility] ([id number]) [address], [address] [place] [address] Neutrophils/100 WBC (Bld) 68.8 % Normal [facility] Comment on above: Performed By: #### Chanel ERICKSON CMP, 1988-02 #### [facility] ([id number]) [address] [place] [address] 88475 #### 97221-4 #### [facility] ([id number]) [address], [address] [place] [address] Platelet mean volume (Bld) [Entitic vol] 8.4 fL Normal 7-12 [facility] Comment on above: Performed By: #### Chanel ERICKSON CMP, 1988-02 #### [facility] ([id number]) [address] [place] [address] 81326 #### 85353-1 #### [facility] ([id number]) [address], [address] [place] [address] Platelets (Bld) [#/Vol] 321 10*3/uL Normal 150-450 [facility] Comment on above: Performed By: #### Chanel ERICKSON CMP, 1988-02 #### [facility] ([id number]) [address] [place] [address] 96632 #### 23939-3 #### [facility] ([id number]) [address], [address] [place] [address] RBC COUNT 4.38 X10E12/L Normal 3.80-5.20 [facility] Comment on above: Performed By: #### Chanel ERICKSON CMP, 1988-02 #### [facility] ([id number]) [address] [place] [address] 40541 #### 07800-2 #### [facility] ([id number]) [address], [address] [place] [address] WBC (Bld) [#/Vol] 13.7 10*3/uL High 4.0-11.0 [facility] Comment on above: Performed By: #### Chanel ERICKSON CMP, 1988-02 #### [facility] ([id number]) [address] [place] [address] 96268 #### 71020-4 #### [facility] ([id number]) [address], [address] [place] [address] COMPREHENSIVE METABOLIC PANE [place] 12-25-2023 Albumin [Mass/Vol] 3.3 g/dL Normal 3.2-5.3 [facility] Comment on above: Performed By: #### C DRE, CMP, 1988-02 #### [facility] ([id number]) [address] [place] [address] 50660 #### 17837-3 #### [facility] ([id number]) [address] [facility], [address] [place] [address] ALP [Catalytic activity/Vol] 66 U/L Normal 39-130 [facility] Comment on above: Performed By: #### C DRE CMP, 1988-02 #### [facility] ([id number]) [address] [place] [address] 91857 #### 91826-0 #### [facility] ([id number]) [address] [facility], [address] [place] [address] ALT [Catalytic activity/Vol] 16 U/L Normal 0-31 [facility] Comment on above: Performed By: #### Chanel BCA, CMP, 1988-02 #### [facility] ([id number]) [address] [place] [address] 81747 #### 46815-7 #### [facility] ([id number]) [address], [address] [place] [address] Anion gap [Moles/Vol] 10 mmol/L Normal 5-15 [facility] Comment on above: Performed By: #### Chanel BCA, CMP, 1988-02 #### [facility] ([id number]) [address] [place] [address] 17907 #### 54922-5 #### [facility] ([id number]) [address], [address] [place] [address] AST [Catalytic activity/Vol] 17 U/L Normal 0-41 [facility] Comment on above: Performed By: #### Chanel ERICKSON [facility], 1988-02 #### [facility] ([id number]) [address] [place] [address] 57339 #### 15700-1 #### [facility] ([id number]) [address], [address] [place] [address] Bilirubin [Mass/Vol] 0.5 mg/dL Normal 0.3-1.2 [facility] Comment on above: Performed By: #### Chanel ERICKSON [facility], 1988-02 #### [facility] ([id number]) [address] [place] [address] 55424 #### 84644-2 #### [facility] ([id number]) [address], [address] [place] [address] Calcium [Mass/Vol] 8.9 mg/dL Normal 8.5-10.5 [facility] Comment on above: Performed By: #### Chanel ERICKSON [facility], 1988-02 #### [facility] ([id number]) [address] [place] [address] 78199 #### 96453-9 #### [facility] ([id number]) [address], [address] [place] [address] Chloride [Moles/Vol] 98 mmol/L Normal 98-109 [facility] Comment on above: Performed By: #### C DRE [facility], 1988-02 #### [facility] ([id number]) [address] [place] [address] 68216 #### 53987-3 #### [facility] ([id number]) [address], [address] [place] [address] CO2 [Moles/Vol] 31 mmol/L Normal 22-32 [facility] Comment on above: Performed By: #### C SEAN ERICKSON, 1988-02 #### [facility] ([id number]) [address] [place] [address] 12666 #### 90957-8 #### [facility] ([id number]) [address], [address] [place] [address] Creatinine [Mass/Vol] 0.78 mg/dL Normal 0.40-1.00 [facility] Comment on above: Result Comment: METH OD TRACEABLE TO IDMS STANDARD Performed By: #### C SEAN ERICKSON, 1988-02 #### [facility] ([id number]) [address] [place] [address] 01225 #### 85377-5 #### [facility] ([id number]) [address], [address] [place] [address] GFR/1.73 sq M.predicted among non-blacks MDRD (S/P/Bld) [Vol rate/Area] 81 mL/min/{1.73_m2} Normal >59 [facility] Comment on above: Result Comment: Reported eGFR is based on the CKD-EPI 2020 equation that does not use a race coefficient. Performed By: #### Chanel ERICKSON CMP, 1988-02 #### [facility] ([id number]) [address] [place] [address] 06679 #### 88688-1 #### [facility] ([id number]) [address], [address] [place] [address] Glucose [Mass/Vol] 125 mg/dL High 65-99 [facility] Comment on above: Performed By: #### Chanel ERICKSON CMP, 1988-02 #### [facility] ([id number]) [address] [place] [address] 04005 #### 16418-1 #### [facility] ([id number]) [address], [address] [place] [address] Potassium [Moles/Vol] 3.5 mmol/L Normal 3.5-5.0 [facility] Comment on above: Performed By: #### C DRE CMP, 1988-02 #### [facility] ([id number]) [address] [place] [address] 69522 #### 36033-6 #### [facility] ([id number]) [address], [address] [place] [address] Protein [Mass/Vol] 7.7 g/dL Normal 6.0-8.0 [facility] Comment on above: Performed By: #### Chanel ERICKSON CMP, 1988-02 #### [facility] ([id number]) [address] [place] [address] 36262 #### 32550-1 #### [facility] ([id number]) [address], [address] [place] [address] Sodium [Moles/Vol] 139 mmol/L Normal 134-146 [facility] Comment on above: Performed By: #### Chanel ERICKSON CMP, 1988-02 #### [facility] ([id number]) [address] [place] [address] 17878 #### 12677-6 #### [facility] ([id number]) [address], [address] [place] [address] Urea nitrogen [Mass/Vol] 19 mg/dL Normal 5-27 [facility] Comment on above: Performed By: #### Chanel ERICKSON CMP, 1988-02 #### [facility] ([id number]) [address] [place] [address] 70915 #### 42084-7 #### [facility] ([id number]) [address], [address] [place] [address] CRP [Mass/Vol]on 12-25-2023 C REACTIVE PROTEIN 8.6 mg/dL High 0.000-0.744 [facility] Comment on above: Performed By: #### Chanel ERICKSON [facility], 1988-02 #### [facility] ([id number]) [address] [place] [address] 73142 #### 30619-7 #### [facility] ([id number]) [address], [address] [place] [address] ESR Photometric method (Bld) [Velocity]on 12-25-2023 ESR, ERYTHROCYTE SEDIMENTATION RATE 85 mm/h High 0-30 [facility] Comment on above: Performed By: #### Chanel ERICKSON [facility], 1988-02 #### [facility] ([id number]) [address] [place] [address] 43197 #### 10218-5 #### [facility] ([id number]) [address], [address] [place] [address] Glucose Glucometer (BldC) [M ass/Vol]on 12-25-2023 Glucose [Mass/Vol] 171 mg/dL High 65-99 [facility] Glucose [Mass/Vol] 125 mg/dL High 65-99 [facility] Glucose [Mass/Vol] 154 mg/dL High 65-99 [facility] MAGNESIUMon 12-25-2023 Magnesium [Mass/Vol] 2.4 mg/dL Normal 1.8-2.6 [facility] Comment on above: Performed By: #### Chanel ERICKSON [facility], 1988-02 #### [facility] ([id number]) [address] [place] [address] 10568 #### 89758-8 #### [facility] ([id number]) [address], [address] [place] [address] POTASSIUMon 12-25-2023 Potassium [Moles/Vol] 4.2 mmol/L Normal 3.5-5.0 [facility] Comment on above: Performed By: #### C DRE [facility], 1988-02 #### [facility] ([id number]) [address] [place] [address] 86372 #### 06700-3 #### [facility] ([id number]) [address] [facility], [address] [place] [address] PROTIME AND INRon 12-25-2023 INR Coag (PPP) [Relative time] 2.6 {INR} High 0.8-1.1 [facility] Comment on above: Performed By: #### C DRE [facility], 1988-02 #### [facility] ([id number]) [address] [place] [address] 26051 #### 01884-7 #### [facility] ([id number]) [address] [place] [address], [address] [place] [address] PT Coag (PPP) [Time] 29.7 s High 9.8-13.2 [facility] Comment on above: Result Comment: NEW REFERENCE RANGE Performed By: #### Chanel ERICKSON [facility], 1988-02 #### [facility] ([id number]) [address] [place] [address] 37499 #### 98870-4 #### [facility] ([id number]) [address] [place] [address], [address] [place] [address] URIC ACIDon 12-25-2023 Urate [Mass/Vol] 8.9 mg/dL High 2.6-7.2 [facility] Comment on above: Performed By: #### Chanel ERICKSON CMP, 1988-02 #### [facility] ([id number]) [address] [place] [address] 60690 #### 36384-8 #### [facility] ([id number]) [address] [facility], [address] [place] [address] XR CHEST 1 VWon 12-25-2023 XR CHEST [...] Wood MD on 12/25/2023 11:21 AM Normal [facility] XR FOOT RT 2 VWSon 4 [...] Araujo MD on 12/25/2023 2:59 PM Normal [facility] CBC AND AUTO DIFFon 12-24-19 24 ABSOLUTE BASOPHIL 0.1 X10E9/L Normal 0.0-0.2 [facility] Comment on above: Performed By: #### C BCA, [facility], 1988-02 #### [facility] ([id number]) [address] [place] [address], [place] [address] #### 16883-6 #### [facility] ([id number]) [address] [facility], [address] [place] [address] ABSOLUTE NEUTROPHIL 10.2 X10E9/L High 1.5-6.6 [facility] Comment on above: Performed By: #### Chanel ERICKSON [facility], 1988-02 #### [facility] ([id number]) [address] [place] [address] 41154 #### 71615-2 #### [facility] ([id number]) [address], [address] [place] [address] Basophils/100 WBC (Bld) 0.5 % Normal [facility] Comment on above: Performed By: #### C DRE [facility], 1988-02 #### [facility] ([id number]) [address] [place] [address] 09866 #### 09639-2 #### [facility] ([id number]) [address], [address] [place] [address] Eosinophils (Bld) [#/Vol] 0.9 10*3/uL High 0.0-0.4 [facility] Comment on above: Performed By: #### Chanel ERICKSON, [facility], 1988-02 #### [facility] ([id number]) [address] [place] [address] 87260 #### 05062-4 #### [facility] ([id number]) [address], [address] [place] [address] Eosinophils/100 WBC (Bld) 6.2 % Normal [facility] Comment on above: Performed By: #### Chanel ERICKSON [facility], 1988-02 #### [facility] ([id number]) [address] [place] [address] 97749 #### 65136-7 #### [facility] ([id number]) [address], [address] [place] [address] Erythrocyte distribution width (RBC) [Ratio] 14.1 % Normal 11.5-15.0 [facility] Comment on above: Performed By: #### Chanel ERICKSON, CMP, 1988-02 #### [facility] ([id number]) [address] [place] [address] 82541 #### 62123-9 #### [facility] ([id number]) [address], [address] [place] [address] Hematocrit (Bld) [Volume fraction] 37.3 % Normal 35-47 [facility] Comment on above: Performed By: #### Chanel BCA, CMP, 1988-02 #### [facility] ([id number]) [address] [place] [address] 13343 #### 04774-2 #### [facility] ([id number]) [address], [address] [place] [address] Hemoglobin (Bld) [Mass/Vol] 12.4 g/dL Normal 11.7-15.5 [facility] Comment on above: Performed By: #### Chanel ERICKSON, CMP, 1988-02 #### [facility] ([id number]) [address] [place] [address] 14779 #### 95905-8 #### [facility] ([id number]) [address], [address] [place] [address] Lymphocytes (Bld) [#/Vol] 2.2 10*3/uL Normal 1.0-3.5 [facility] Comment on above: Performed By: #### Chanel BCA, CMP, 1988-02 #### [facility] ([id number]) [address] [place] [address] 45186 #### 89704-9 #### [facility] ([id number]) [address], [address] [place] [address] Lymphocytes/100 WBC (Bld) 15.4 % Normal [facility] Comment on above: Performed By: #### Chanel BCA, CMP, 1988-02 #### [facility] ([id number]) [address] [place] [address] 38855 #### 77847-9 #### [facility] ([id number]) [address], [address] [place] [address] MCH (RBC) [Entitic mass] 29.0 pg Normal 27-34 [facility] Comment on above: Performed By: #### C DRE CMP, 1988-02 #### [facility] ([id number]) [address] [place] [address] 39256 #### 63365-3 #### [facility] ([id number]) [address] [facility], [address] [place] [address] MCHC (RBC) [Mass/Vol] 33.3 g/dL Normal 32-36 [facility] Comment on above: Performed By: #### Chanel ERICKSON [facility], 1988-02 #### [facility] ([id number]) [address] [place] [address] 35018 #### 97028-5 #### [facility] ([id number]) [address] [facility], [address] [place] [address] MCV (RBC) [Entitic vol] 87 fL Normal 80-100 [facility] Comment on above: Performed By: #### C DRE CMP, 1988-02 #### [facility] ([id number]) [address] [place] [address] 73833 #### 77647-1 #### [facility] ([id number]) [address], [address] [place] [address] Monocytes (Bld) [#/Vol] 0.7 10*3/uL Normal 0-0.9 [facility] Comment on above: Performed By: #### C DRE CMP, 1988-02 #### [facility] ([id number]) [address] [place] [address] 76405 #### 24457-8 #### [facility] ([id number]) [address], [address] [place] [address] Monocytes/100 WBC (Bld) 5.3 % Normal [facility] Comment on above: Performed By: #### Chanel ERICKSON CMP, 1988-02 #### [facility] ([id number]) [address] [place] [address] 80575 #### 63176-5 #### [facility] ([id number]) [address], [address] [place] [address] Neutrophils/100 WBC (Bld) 72.6 % Normal [facility] Comment on above: Performed By: #### Chanel ERICKSON CMP, 1988-02 #### [facility] ([id number]) [address] [place] [address] 74461 #### 76962-9 #### [facility] ([id number]) [address], [address] [place] [address] Platelet mean volume (Bld) [Entitic vol] 8.6 fL Normal 7-12 [facility] Comment on above: Performed By: #### hCanel ERICKSON CMP, 1988-02 #### [facility] ([id number]) [address] [place] [address] 94149 #### 27153-8 #### [facility] ([id number]) [address], [address] [place] [address] Platelets (Bld) [#/Vol] 339 10*3/uL Normal 150-450 [facility] Comment on above: Performed By: #### Chanel ERICKSON CMP, 1988-02 #### [facility] ([id number]) [address] [place] [address] 75923 #### 60410-6 #### [facility] ([id number]) [address] [facility], [address] [place] [address] RBC COUNT 4.29 X10E12/L Normal 3.80-5.20 [facility] Comment on above: Performed By: #### C BCA, CMP, 1988-02 #### [facility] ([id number]) [address] [place] [address] 81199 #### 59361-6 #### [facility] ([id number]) [address] [facility], [address] [place] [address] WBC (Bld) [#/Vol] 14.1 10*3/uL High 4.0-11.0 [facility] Comment on above: Performed By: #### Chanel BCA CMP, 1988-02 #### [facility] ([id number]) [address] [place] [address] 25238 #### 24539-3 #### [facility] ([id number]) [address] [place] [address], [address] [place] [address] COMPREHENSIVE METABOLIC PANE Tyrone 12-24-2023 Albumin [Mass/Vol] 3.4 g/dL Normal 3.2-5.3 [facility] Comment on above: Performed By: #### Chanel BCA CMP, 1988-02 #### [facility] ([id number]) [address] [place] [address] 14960 #### 60483-0 #### [facility] ([id number]) [address] [place] [address], [address] [place] [address] ALP [Catalytic activity/Vol] 67 U/L Normal 39-130 [facility] Comment on above: Performed By: #### Chanel BCA, CMP, 1988-02 #### [facility] ([id number]) [address] [place] [address] 07562 #### 73311-4 #### [facility] ([id number]) [address], [address] [place] [address] ALT [Catalytic activity/Vol] 13 U/L Normal 0-31 [facility] Comment on above: Performed By: #### Chanel ERICKSON CMP, 1988-02 #### [facility] ([id number]) [address] [place] [address] 28269 #### 58707-5 #### [facility] ([id number]) [address], [address] [place] [address] Anion gap [Moles/Vol] 11 mmol/L Normal 5-15 [facility] Comment on above: Performed By: #### Chanel ERICKSON [facility], 1988-02 #### [facility] ([id number]) [address] [place] [address] 61513 #### 98400-0 #### [facility] ([id number]) [address], [address] [place] [address] AST [Catalytic activity/Vol] 16 U/L Normal 0-41 [facility] Comment on above: Performed By: #### Chanel ERICKSON [facility], 1988-02 #### [facility] ([id number]) [address] [place] [address] 85161 #### 43635-7 #### [facility] ([id number]) [address] [place] [address] Bilirubin [Mass/Vol] 0.4 mg/dL Normal 0.3-1.2 [facility] Comment on above: Performed By: #### Chanel ERICKSON CMP, 1988-02 #### [facility] ([id number]) [address] [place] [address] 02229 #### 01339-3 #### [facility] ([id number]) [address] [place] [address] Calcium [Mass/Vol] 8.9 mg/dL Normal 8.5-10.5 [facility] Comment on above: Performed By: #### Chanel ERICKSON CMP, 1988-02 #### [facility] ([id number]) [address] [place] [address] 15702 #### 05848-4 #### [facility] ([id number]) [address] [facility], [address] [place] [address] Chloride [Moles/Vol] 99 mmol/L Normal 98-109 [facility] Comment on above: Performed By: #### Chanel ERICKSON CMP, 1988-02 #### [facility] ([id number]) [address] [place] [address] 68899 #### 95976-3 #### [facility] ([id number]) [address] [facility], [address] [place] [address] CO2 [Moles/Vol] 30 mmol/L Normal 22-32 [facility] Comment on above: Performed By: #### Chanel ERICKSON CMP, 1988-02 #### [facility] ([id number]) [address] [place] [address] 97999 #### 34553-3 #### [facility] ([id number]) [address] [facility], [address] [place] [address] Creatinine [Mass/Vol] 0.83 mg/dL Normal 0.40-1.00 [facility] Comment on above: Result Comment: METH OD TRACEABLE TO IDMS STANDARD Performed By: #### C SEAN ERICKSON, 1988-02 #### [facility] ([id number]) [address] [place] [address] 00611 #### 23932-9 #### [facility] ([id number]) [address] [facility], [address] [place] [address] GFR/1.73 sq M.predicted among non-blacks MDRD (S/P/Bld) [Vol rate/Area] 75 mL/min/{1.73_m2} Normal >59 [facility] Comment on above: Result Comment: Reported eGFR is based on the CKD-EPI 2020 equation that does not use a race coefficient. Performed By: #### Chanel ERICKSON CMP, 1988-02 #### [facility] ([id number]) [address] [place] [address] 82251 #### 34214-1 #### [facility] ([id number]) [address], [address] [place] [address] Glucose [Mass/Vol] 137 mg/dL High 65-99 [facility] Comment on above: Performed By: #### Chanel ERICKSON CMP, 1988-02 #### [facility] ([id number]) [address] [place] [address] 00345 #### 23694-8 #### [facility] ([id number]) [address], [address] [place] [address] Potassium [Moles/Vol] 3.8 mmol/L Normal 3.5-5.0 [facility] Comment on above: Performed By: #### Chanel ERICKSON CMP, 1988-02 #### [facility] ([id number]) [address] [place] [address] 94768 #### 87947-4 #### [facility] ([id number]) [address] [place] [address] Protein [Mass/Vol] 7.9 g/dL Normal 6.0-8.0 [facility] Comment on above: Performed By: #### Chanel ERICKSON CMP, 1988-02 #### [facility] ([id number]) [address] [place] [address] 39527 #### 63315-3 #### [facility] ([id number]) [address], [address] [place] [address] Sodium [Moles/Vol] 140 mmol/L Normal 134-146 [facility] Comment on above: Performed By: #### Chanel ERICKSON [facility], 1986-02 #### [facility] ([id number]) [address] [place] [address] #### [id number] #### [facility] ([id number]) [address], [address] [place] [address] Urea nitrogen [Mass/Vol] 18 mg/dL Normal 5-27 [facility] Comment on above: Performed By: #### Chanel ERICKSON [facility], 1986-02 #### [facility] ([id number]) [address] [place] [address] #### [id number] #### [facility] ([id number]) [address], [address] [place] [address] Glucose Glucometer (BldC) [M ass/Vol]on 12-24-2023 Glucose [Mass/Vol] 136 mg/dL High 65-99 [facility] Glucose [Mass/Vol] 123 mg/dL High 65-99 [facility] Glucose [Mass/Vol] 152 mg/dL High 65-99 [facility] MAGNESIUMon 12-24-2023 Magnesium [Mass/Vol] 2.2 mg/dL Normal 1.8-2.6 [facility] Comment on above: Performed By: #### Chanel ERICKSON [facility], 1986-02 #### [facility] ([id number]) [address] [place] [address] #### [id number] #### [facility] ([id number]) [address], [address] [place] [address] POTASSIUMon 12-24-2023 Potassium [Moles/Vol] 4.0 mmol/L Normal 3.5-5.0 [facility] Comment on above: Performed By: #### Chanel ERICKSON CMP, 1986-02 #### [facility] ([id number]) [address] [place] [address] #### [id number] #### [facility] ([id number]) [address], [address] [place] [address] PROTIME AND INRon 12-24-2023 INR Coag (PPP) [Relative time] 2.8 {INR} High 0.8-1.1 [facility] Comment on above: Performed By: #### Chanel ERICKSON CMP, 1986-02 #### [facility] ([id number]) [address] [place] [address] #### [phone] #### [facility] ([id number]) [address] [facility], [address] [place] [address] PT Coag (PPP) [Time] 30.9 s High 9.8-13.2 [facility] Comment on above: Result Comment: NEW REFERENCE RANGE Performed By: #### Chanel ERICKSON CMP, 1986-02 #### [facility] ([id number]) [address] [place] [address] #### [id number] #### [facility] ([id number]) [address], [address] [place] [address] Vancomycin trough [Mass/Vol] on 12-24-2023 VANCOMYCIN TROUGH 11.4 ug/mL Normal 5.0-20.0 [facility] Comment on above: Performed By: #### Chanel ERICKSON CMP, 1986-02 #### [facility] ([id number]) [address] [place] [address] #### [id number] #### [facility] ([id number]) [address] [facility], [address] [place] [address] CBC AND AUTO DIFFon 12-23-19 24 ABSOLUTE BASOPHIL 0.1 X10E9/L Normal 0.0-0.2 [facility] Comment on above: Performed By: #### C BCA, PINR, CMP, ####[facility] ([id number])[address] [place] [address] 81459 ABSOLUTE NEUTROPHIL 10.1 X10E9/L High 1.5-6.6 [facility] Comment on above: Performed By: #### C BCA, PINR, CMP, ####[facility] ([id number])[address] [place] [address] 40304 Basophils/100 WBC (Bld) 1.0 % Normal [facility] Comment on above: Performed By: #### C BCA, PINR, CMP, ####[facility] ([id number])[address] [place] [address] 02170 Eosinophils (Bld) [#/Vol] 0.8 10*3/uL High 0.0-0.4 [facility] Comment on above: Performed By: #### C BCA, PINR, CMP, ####[facility] ([id number])[address] [place] [address] 45018 Eosinophils/100 WBC (Bld) 5.8 % Normal [facility] Comment on above: Performed By: #### C BCA, PINR, CMP, ####[facility] ([id number])[address] [place] [address] 45927 Erythrocyte distribution width (RBC) [Ratio] 13.8 % Normal 11.5-15.0 [facility] Comment on above: Performed By: #### C BCA, PINR, CMP, ####[facility] ([id number])[address] [place] [address] 56273 Hematocrit (Bld) [Volume fraction] 36.1 % Normal 35-47 [facility] Comment on above: Performed By: #### C DRE, PINR, CMP, ####[facility] ([id number])[address] [place] [address] 14687 Hemoglobin (Bld) [Mass/Vol] 12.1 g/dL Normal 11.7-15.5 [facility] Comment on above: Performed By: #### C DRE, PINR, CMP, ####[facility] ([id number])[address] [place] [address] 38436 Lymphocytes (Bld) [#/Vol] 2.4 10*3/uL Normal 1.0-3.5 [facility] Comment on above: Performed By: #### Chanel ERICKSON, PINR, CMP, ####[facility] ([id number])[address] [place] [address] 93394 Lymphocytes/100 WBC (Bld) 16.6 % Normal [facility] Comment on above: Performed By: #### Chanel ERICKSON, PINR, CMP, ####[facility] ([id number])[address] [place] [address] 12842 MCH (RBC) [Entitic mass] 29.0 pg Normal 27-34 [facility] Comment on above: Performed By: #### C BCA, PINR, CMP, ####[facility] ([id number])[address] [place] [address] 65696 MCHC (RBC) [Mass/Vol] 33.6 g/dL Normal 32-36 [facility] Comment on above: Performed By: #### C BCA, PINR, CMP, ####[facility] ([id number])[address] [place] [address] 84394 MCV (RBC) [Entitic vol] 86 fL Normal 80-100 [facility] Comment on above: Performed By: #### C BCA, PINR, CMP, ####[facility] ([id number])[address] [place] [address] 84549 Monocytes (Bld) [#/Vol] 1.1 10*3/uL High 0-0.9 [facility] Comment on above: Performed By: #### C BCA, PINR, CMP, ####[facility] ([id number])[address] [place] [address] 18642 Monocytes/100 WBC (Bld) 7.3 % Normal [facility] Comment on above: Performed By: #### Chanel BCA, PINR, CMP, ####[facility] ([id number])[address] [place] [address] 86987 Neutrophils/100 WBC (Bld) 69.3 % Normal [facility] Comment on above: Performed By: #### C BCA, PINR, CMP, ####[facility] ([id number])[address] [place] [address] 14998 Platelet mean volume (Bld) [Entitic vol] 8.5 fL Normal 7-12 [facility] Comment on above: Performed By: #### Chanel BCA, PINR, CMP, ####[facility] ([id number])[address] [place] [address] 59301 Platelets (Bld) [#/Vol] 286 10*3/uL Normal 150-450 [facility] Comment on above: Performed By: #### C BCA, PINR, CMP, ####[facility] ([id number])[address] [place] [address] 18922 RBC COUNT 4.19 X10E12/L Normal 3.80-5.20 [facility] Comment on above: Performed By: #### C BCA, PINR, CMP, 91307-7 ####[facility] ([id number])[address] [place] [address] 19911 WBC (Bld) [#/Vol] 14.6 10*3/uL High 4.0-11.0 [facility] Comment on above: Performed By: #### C BCA, PINR, CMP, 67398-3 ####[facility] ([id number])[address] [place] [address] 17812 COMPREHENSIVE METABOLIC PANE [place] 12-23-2023 Albumin [Mass/Vol] 3.1 g/dL Low 3.2-5.3 [facility] Comment on above: Performed By: #### Chanel ERICKSON CMP, 1986-02 #### [facility] ([id number]) [address] [place] [address] 62156 #### 06795-3 #### [facility] ([id number]) [address], [address] [place] [address] ALP [Catalytic activity/Vol] 60 U/L Normal 39-130 [facility] Comment on above: Performed By: #### Chanel ERICKSON CMP, 1986-02 #### [facility] ([id number]) [address] [place] [address] 13475 #### 68430-6 #### [facility] ([id number]) [address], [address] [place] [address] ALT [Catalytic activity/Vol] 12 U/L Normal 0-31 [facility] Comment on above: Performed By: #### Chanel ERICKSON CMP, 1986-02 #### [facility] ([id number]) [address] [place] [address] 90846 #### 47617-6 #### [facility] ([id number]) [address], [address] [place] [address] Anion gap [Moles/Vol] 9 mmol/L Normal 5-15 [facility] Comment on above: Performed By: #### Chanel ERICKSON [facility], 1988-02 #### [facility] ([id number]) [address] [place] [address] 92654 #### 54474-8 #### [facility] ([id number]) [address], [address] [place] [address] AST [Catalytic activity/Vol] 14 U/L Normal 0-41 [facility] Comment on above: Performed By: #### Chanel ERICKSON [facility], 1988-02 #### [facility] ([id number]) [address] [place] [address] 95415 #### 90113-1 #### [facility] ([id number]) [address], [address] [place] [address] Bilirubin [Mass/Vol] 0.6 mg/dL Normal 0.3-1.2 [facility] Comment on above: Performed By: #### Chanel ERICKSON [facility], 1988-02 #### [facility] ([id number]) [address] [place] [address] 59908 #### 84569-4 #### [facility] ([id number]) [address], [address] [place] [address] Calcium [Mass/Vol] 8.5 mg/dL Normal 8.5-10.5 [facility] Comment on above: Performed By: #### Chanel ERICKSON CMP, 1986-02 #### [facility] ([id number]) [address] [place] [address] 36870 #### 22940-9 #### [facility] ([id number]) [address], [address] [place] [address] Chloride [Moles/Vol] 99 mmol/L Normal 98-109 [facility] Comment on above: Performed By: #### C DRE [facility], 1988-02 #### [facility] ([id number]) [address] [place] [address] 80754 #### 68868-0 #### [facility] ([id number]) [address], [address] [place] [address] CO2 [Moles/Vol] 28 mmol/L Normal 22-32 [facility] Comment on above: Performed By: #### C DRE [facility], 1988-02 #### [facility] ([id number]) [address] [place] [address] 45902 #### 51985-3 #### [facility] ([id number]) [address], [address] [place] [address] Creatinine [Mass/Vol] 0.75 mg/dL Normal 0.40-1.00 [facility] Comment on above: Result Comment: METH OD TRACEABLE TO IDMS STANDARD Performed By: #### Chanel ERICKSON [facility], 1988-02 #### [facility] ([id number]) [address] [place] [address] 37196 #### 38121-9 #### [facility] ([id number]) [address], [address] [place] [address] GFR/1.73 sq M.predicted among non-blacks MDRD (S/P/Bld) [Vol rate/Area] 85 mL/min/{1.73_m2} Normal >59 [facility] Comment on above: Result Comment: Reported eGFR is based on the CKD-EPI 2020 equation that does not use a race coefficient. Performed By: #### Chanel ERICKSON CMP, 1986-02 #### [facility] ([id number]) [address] [place] [address] 00954 #### 14172-4 #### [facility] ([id number]) [address], [address] [place] [address] Glucose [Mass/Vol] 122 mg/dL High 65-99 [facility] Comment on above: Performed By: #### Chanel ERICKSON CMP, 1986-02 #### [facility] ([id number]) [address] [place] [address] 36504 #### 61276-5 #### [facility] ([id number]) [address], [address] [place] [address] Potassium [Moles/Vol] 3.5 mmol/L Normal 3.5-5.0 [facility] Comment on above: Performed By: #### Chanel ERICKSON CMP, 1986-02 #### [facility] ([id number]) [address] [place] [address] 23356 #### 17602-6 #### [facility] ([id number]) [address], [address] [place] [address] Protein [Mass/Vol] 7.3 g/dL Normal 6.0-8.0 [facility] Comment on above: Performed By: #### Chanel ERICKSON CMP, 1986-02 #### [facility] ([id number]) [address] [place] [address] 04639 #### 60044-4 #### [facility] ([id number]) [address] [place] [address] Sodium [Moles/Vol] 136 mmol/L Normal 134-146 [facility] Comment on above: Performed By: #### Chanel ERICKSON CMP, 1986-02 #### [facility] ([id number]) [address] [place] [address] 54402 #### 52583-8 #### [facility] ([id number]) [address], [address] [place] [address] Urea nitrogen [Mass/Vol] 15 mg/dL Normal 5-27 [facility] Comment on above: Performed By: #### Chanel ERICKSON [facility], 1988-02 #### [facility] ([id number]) [address] [place] [address] 89769 #### 46527-5 #### [facility] ([id number]) [address] [facility] [facility], [address] [place] [address] Glucose Glucometer (BldC) [M ass/Vol]on 12-23-2023 Glucose [Mass/Vol] 158 mg/dL High 65-99 [facility] Glucose [Mass/Vol] 141 mg/dL High 65-99 [facility] HGB A1C (GLYCO-HGB)on 2023 Glucose [Mass/Vol] 140 mg/dL Normal [facility] Comment on above: Performed By: #### Chanel ERICKSON [facility], 1988-02 #### [facility] ([id number]) [address] [place] [address] 72311 #### 04958-5 #### [facility] ([id number]) [address] [facility], [address] [place] [address] HbA1c (Bld) [Mass fraction] 6.5 % High 4.4-5.6 [facility] Comment on above: Result Comment: NOTE ADA Guidelines Result HgbA1c Normal : less than 5.7 % Prediabetes : 5.7 % to 6.4 % Diabetes : > 6.4 % Use with caution in patients with abnormal hemoglobin variants as the half-life of red blood cells and in vivo glycation rates are affected. Performed By: #### Chanel ERICKSON CMP, 1986-02 #### [facility] ([id number]) [address] [place] [address] 91915 #### 28976-2 #### [facility] ([id number]) [address] [facility], [address] [place] [address] MAGNESIUMon 12-23-2023 Magnesium [Mass/Vol] 2.0 mg/dL Normal 1.8-2.6 [facility] Comment on above: Performed By: #### Chanel ERICKSON CMP, 1986-02 #### [facility] ([id number]) [address] [place] [address] 70341 #### 12401-8 #### [facility] ([id number]) [address] [facility], [address] [place] [address] POTASSIUMon 12-23-2023 Potassium [Moles/Vol] 4.4 mmol/L Normal 3.5-5.0 [facility] Comment on above: Performed By: #### Chanel ERICKSON CMP, 1986-02 #### [facility] ([id number]) [address] [place] [address] 03277 #### 96036-7 #### [facility] ([id number]) [address] [facility], [address] [place] [address] PROTIME AND INRon 12-23-2023 INR Coag (PPP) [Relative time] 2.7 {INR} High 0.8-1.1 [facility] Comment on above: Performed By: #### C DELIA ERICKSON CMP, 65558-0 ####[facility] ([id number])[address] [place] [address] 81524 PT Coag (PPP) [Time] 29.9 s High 9.8-13.2 [facility] Comment on above: Result Comment: NEW REFERENCE RANGE Performed By: #### C DRE PINR CMP, 57727-5 ####[facility] ([id number])[address] [place] [address] 33538 CBC AND AUTO DIFFon 03-02-20 24 ABSOLUTE BASOPHIL 0.2 X10E9/L Normal 0.0-0.2 [facility] Comment on above: Performed By: #### P INR, CMP, , CBCA ####[facility] ([id number])[address] [place] [address] 24132 ABSOLUTE NEUTROPHIL 10.5 X10E9/L High 1.5-6.6 [facility] Comment on above: Performed By: #### P INR, CMP, , CBCA ####[facility] ([id number])[address] [place] [address] 87300 Basophils/100 WBC (Bld) 1.0 % Normal [facility] Comment on above: Performed By: #### P INR, CMP, , CBCA ####[facility] ([id number])[address] [place] [address] 88052 Eosinophils (Bld) [#/Vol] 1.1 10*3/uL High 0.0-0.4 [facility] Comment on above: Performed By: #### P INR, CMP, , CBCA ####[facility] ([id number])[address] [place] [address] 33317 Eosinophils/100 WBC (Bld) 6.9 % Normal [facility] Comment on above: Performed By: #### P INR, CMP, , CBCA ####[facility] ([id number])[address] [place] [address] 81164 Erythrocyte distribution width (RBC) [Ratio] 13.7 % Normal 11.5-15.0 [facility] Comment on above: Performed By: #### P INR, CMP, , CBCA ####[facility] ([id number])[address] [place] [address] 66995 Hematocrit (Bld) [Volume fraction] 34.0 % Low 35-47 [facility] Comment on above: Performed By: #### P INR, CMP, , CBCA ####[facility] ([id number])[address] [place] [address] 38659 Hemoglobin (Bld) [Mass/Vol] 11.4 g/dL Low 11.7-15.5 [facility] Comment on above: Performed By: #### P INR, CMP, , CBCA ####[facility] ([id number])[address] [place] [address] 61453 Lymphocytes (Bld) [#/Vol] 3.5 10*3/uL Normal 1.0-3.5 [facility] Comment on above: Performed By: #### P INR, CMP, , CBCA ####[facility] ([id number])[address] [place] [address] 20138 Lymphocytes/100 WBC (Bld) 21.4 % Normal [facility] Comment on above: Performed By: #### P INR, CMP, , CBCA ####[facility] ([id number])[address] [place] [address] 14563 MCH (RBC) [Entitic mass] 29.1 pg Normal 27-34 [facility] Comment on above: Performed By: #### P INR, CMP, , CBCA ####[facility] ([id number])[address] [place] [address] 07236 MCHC (RBC) [Mass/Vol] 33.6 g/dL Normal 32-36 [facility] Comment on above: Performed By: #### P INR, CMP, , CBCA ####[facility] ([id number])[address] [place] [address] 88266 MCV (RBC) [Entitic vol] 87 fL Normal 80-100 [facility] Comment on above: Performed By: #### P INR, CMP, , CBCA ####[facility] ([id number])[address] [place] [address] 04874 Monocytes (Bld) [#/Vol] 0.9 10*3/uL Normal 0-0.9 [facility] Comment on above: Performed By: #### P INR, CMP, , CBCA ####[facility] ([id number])[address] [place] [address] 10625 Monocytes/100 WBC (Bld) 5.8 % Normal [facility] Comment on above: Performed By: #### P INR, CMP, , CBCA ####[facility] ([id number])[address] [place] [address] 99135 Neutrophils/100 WBC (Bld) 64.9 % Normal [facility] Comment on above: Performed By: #### P INR, CMP, , CBCA ####[facility] ([id number])[address] [place] [address] 62720 Platelet mean volume (Bld) [Entitic vol] 8.8 fL Normal 7-12 [facility] Comment on above: Performed By: #### P INR, CMP, , CBCA ####[facility] ([id number])[address] [place] [address] 13533 Platelets (Bld) [#/Vol] 258 10*3/uL Normal 150-450 [facility] Comment on above: Performed By: #### P INR, CMP, , CBCA ####[facility] ([id number])[address] [place] [address] [place] [address] RBC COUNT 3.92 X10E12/L Normal 3.80-5.20 [facility] Comment on above: Performed By: #### P INR, CMP, , CBCA ####[facility] ([id number])[address] [place] [address] 09680 WBC (Bld) [#/Vol] 16.2 10*3/uL High 4.0-11.0 [facility] Comment on above: Performed By: #### P INR, CMP, , CBCA ####[facility] ([id number])[address] [place] [address] 15896 COMPREHENSIVE METABOLIC PANE [place] 12-22-2023 Albumin [Mass/Vol] 3.4 g/dL Normal 3.2-5.3 [facility] Comment on above: Performed By: #### P INR, CMP, , CBCA ####[facility] ([id number])[address] [place] [address] 46175 ALP [Catalytic activity/Vol] 59 U/L Normal 39-130 [facility] Comment on above: Performed By: #### P INR, CMP, , CBCA ####[facility] ([id number])[address] [place] [address] 65584 ALT [Catalytic activity/Vol] 11 U/L Normal 0-31 [facility] Comment on above: Performed By: #### P INR, CMP, , CBCA ####[facility] ([id number])[address] [place] [address] 58793 Anion gap [Moles/Vol] 11 mmol/L Normal 5-15 [facility] Comment on above: Performed By: #### P INR, CMP, , CBCA ####[facility] ([id number])[address] [place] [address] 53253 AST [Catalytic activity/Vol] 14 U/L Normal 0-41 [facility] Comment on above: Performed By: #### P INR, CMP, , CBCA ####[facility] ([id number])[address] [place] [address] 27392 Bilirubin [Mass/Vol] 0.8 mg/dL Normal 0.3-1.2 [facility] Comment on above: Performed By: #### P INR, CMP, , CBCA ####[facility] ([id number])[address] [place] [address] 45455 Calcium [Mass/Vol] 8.5 mg/dL Normal 8.5-10.5 [facility] Comment on above: Performed By: #### P INR, CMP, , CBCA ####[facility] ([id number])[address] [place] [address] 60516 Chloride [Moles/Vol] 98 mmol/L Normal 98-109 [facility] Comment on above: Performed By: #### P INR, CMP, , CBCA ####[facility] ([id number])[address] [place] [address] 89236 CO2 [Moles/Vol] 26 mmol/L Normal 22-32 [facility] Comment on above: Performed By: #### P INR, CMP, , CBCA ####[facility] ([id number])[address] [place] [address] 50287 Creatinine [Mass/Vol] 0.78 mg/dL Normal 0.40-1.00 [facility] Comment on above: Result Comment: METH OD TRACEABLE TO IDMS STANDARD Performed By: #### P INR, CMP, , CBCA ####[facility] ([id number])[address] [place] [address] 79765 GFR/1.73 sq M.predicted among non-blacks MDRD (S/P/Bld) [Vol rate/Area] 81 mL/min/{1.73_m2} Normal >59 [facility] Comment on above: Result Comment: Reported eGFR is based on the CKD-EPI 2020 equation that does not use a race coefficient. Performed By: #### P INR, CMP, , CBCA ####[facility] ([id number])[address] [place] [address] 36917 Glucose [Mass/Vol] 121 mg/dL High 65-99 [facility] Comment on above: Performed By: #### P INR, CMP, , CBCA ####[facility] ([id number])[address] [place] [address] 15597 Potassium [Moles/Vol] 3.5 mmol/L Normal 3.5-5.0 [facility] Comment on above: Performed By: #### P INR, CMP, , CBCA ####[facility] ([id number])[address] [place] [address] 23593 Protein [Mass/Vol] 7.2 g/dL Normal 6.0-8.0 [facility] Comment on above: Performed By: #### P INR, CMP, , CBCA ####[facility] ([id number])[address] [place] [address] 04862 Sodium [Moles/Vol] 135 mmol/L Normal 134-146 [facility] Comment on above: Performed By: #### P INR, CMP, , CBCA ####[facility] ([id number])[address] [place] [address] 55371 Urea nitrogen [Mass/Vol] 15 mg/dL Normal 5-27 [facility] Comment on above: Performed By: #### P INR, CMP, , CBCA ####[facility] ([id number])[address] [place] [address] 12714 Glucose Glucometer (BldC) [M ass/Vol]on 12-22-2023 Glucose [Mass/Vol] 147 mg/dL High 65-99 [facility] Glucose [Mass/Vol] 136 mg/dL High 65-99 [facility] Glucose [Mass/Vol] 120 mg/dL High 65-99 [facility] MAGNESIUMon 12-22-2023 Magnesium [Mass/Vol] 2.0 mg/dL Normal 1.8-2.6 [facility] Comment on above: Performed By: #### P INR, [facility], , CBCA ####[facility] ([id number])[address] [place] [address] 10336 PROTIME AND INRon 12-22-2023 INR Coag (PPP) [Relative time] 2.6 {INR} High 0.8-1.1 [facility] Comment on above: Performed By: #### P INR, [facility], , CBCA ####[facility] ([id number])[address] [place] [address] 00709 PT Coag (PPP) [Time] 29.0 s High 9.8-13.2 [facility] Comment on above: Result Comment: NEW REFERENCE RANGE Performed By: #### P INR, [facility], , CBCA ####[facility] ([id number])[address] [place] [address] 70924 Vancomycin trough [Mass/Vol] on 12-22-2023 VANCOMYCIN TROUGH 15.2 ug/mL Normal 5.0-20.0 [facility] Comment on above: Performed By: #### 4 092-3 ####[facility] ([id number])[address] [place] [address] 74591 CBC AND AUTO DIFFon 12-21-19 24 ABSOLUTE BASOPHIL 0.1 X10E9/L Normal 0.0-0.2 [facility] Comment on above: Performed By: #### C BCA, [facility], #### [facility] ([id number]) [address] [place] [address] 89202 ABSOLUTE NEUTROPHIL 11.5 X10E9/L High 1.5-6.6 [facility] Comment on above: Performed By: #### C SEAN ERICKSON, 66293-9 #### [facility] ([id number]) [address] [place] [address] 29822 Basophils/100 WBC (Bld) 0.8 % Normal [facility] Comment on above: Performed By: #### Chanel ERICKSON [facility], 45341-4 #### [facility] ([id number]) [address] [place] [address] 06584 Eosinophils (Bld) [#/Vol] 0.3 10*3/uL Normal 0.0-0.4 [facility] Comment on above: Performed By: #### Chanel ERICKSON [facility], #### [facility] ([id number]) [address] [place] [address] 78450 Eosinophils/100 WBC (Bld) 2.2 % Normal [facility] Comment on above: Performed By: #### Chanel ERICKSON [facility], 12389-1 #### [facility] ([id number]) [address] [place] [address] 18071 Erythrocyte distribution width (RBC) [Ratio] 14.0 % Normal 11.5-15.0 [facility] Comment on above: Performed By: #### Chanel ERICKSON [facility], #### [facility] ([id number]) [address] [place] [address] 68513 Hematocrit (Bld) [Volume fraction] 34.8 % Low 35-47 [facility] Comment on above: Performed By: #### Chanel ERICKSON CMP, 19737-9 #### [facility] ([id number]) [address] [place] [address] Hemoglobin (Bld) [Mass/Vol] 11.4 g/dL Low 11.7-15.5 [facility] Comment on above: Performed By: #### Chanel ERICKSON [facility], #### [facility] ([id number]) [address] [place] [address] 37412 Lymphocytes (Bld) [#/Vol] 2.0 10*3/uL Normal 1.0-3.5 [facility] [facility] Comment on above: Performed By: #### Chanel ERICKSON [facility], #### [facility] ([id number]) [address] [place] [address] 97403 Lymphocytes/100 WBC (Bld) 13.2 % Normal [facility] Comment on above: Performed By: #### Chanel ERICKSON [facility], 59426-1 #### [facility] ([id number]) [address] [place] [address] 51181 MCH (RBC) [Entitic mass] 28.5 pg Normal 27-34 [facility] Comment on above: Performed By: #### Chanel ERICKSON [facility], #### [facility] ([id number]) [address] [place] [address] 97779 MCHC (RBC) [Mass/Vol] 32.6 g/dL Normal 32-36 [facility] Comment on above: Performed By: #### Chnael ERICKSON [facility], #### [facility] ([id number]) [address] [place] [address] 05982 MCV (RBC) [Entitic vol] 87 fL Normal 80-100 [facility] Comment on above: Performed By: #### Chanel ERICKSON CMP, #### [facility] ([id number]) [address] [place] [address] 74993 Monocytes (Bld) [#/Vol] 1.3 10*3/uL High 0-0.9 [facility] Comment on above: Performed By: #### C DRE, CMP, 57594-7 #### [facility] ([id number]) [address] [place] [address] 89095 Monocytes/100 WBC (Bld) 8.7 % Normal [facility] Comment on above: Performed By: #### Chanel ERICKSON, CMP, 37348-2 #### [facility] ([id number]) [address] [place] [address] 93267 Neutrophils/100 WBC (Bld) 75.1 % Normal [facility] Comment on above: Performed By: #### Chanel ERICKSON, CMP, 51255-5 #### [facility] ([id number]) [address] [place] [address] 81661 Platelet mean volume (Bld) [Entitic vol] 8.8 fL Normal 7-12 [facility] Comment on above: Performed By: #### Chanel BCA, CMP, 44072-3 #### [facility] ([id number]) [address] [place] [address] 59506 Platelets (Bld) [#/Vol] 257 10*3/uL Normal 150-450 [facility] Comment on above: Performed By: #### Chanel ERICKSON, CMP, 03397-3 #### [facility] ([id number]) [address] [place] [address] 94774 RBC COUNT 3.98 X10E12/L Normal 3.80-5.20 [facility] Comment on above: Performed By: #### Chanel BCA, CMP, 98101-8 #### [facility] ([id number]) [address] [place] [address] 21578 WBC (Bld) [#/Vol] 15.3 10*3/uL High 4.0-11.0 [facility] Comment on above: Performed By: #### Chanel BCA, CMP, #### [facility] ([id number]) [address] [place] [address] [place] [address] COMPREHENSIVE METABOLIC PANE Tyrone 12-21-2023 Albumin [Mass/Vol] 3.3 g/dL Normal 3.2-5.3 [facility] Comment on above: Performed By: #### C BCA, CMP, 02583-3 ####[facility] ([id number])[address] [place] [address] [place] [address] ALP [Catalytic activity/Vol] 59 U/L Normal 39-130 [facility] Comment on above: Performed By: #### C BCA, CMP, ####[facility] ([id number])[address] [place] [address] 82740 ALT [Catalytic activity/Vol] 13 U/L Normal 0-31 [facility] Comment on above: Performed By: #### C BCA, CMP, ####[facility] ([id number])[address] [place] [address] [place] [address] Anion gap [Moles/Vol] 11 mmol/L Normal 5-15 [facility] Comment on above: Performed By: #### C BCA, CMP, ####[facility] ([id number])[address] [place] [address] 83122 AST [Catalytic activity/Vol] 11 U/L Normal 0-41 [facility] Comment on above: Performed By: #### C BCA, CMP, ####[facility] ([id number])[address] [place] [address] 59131 Bilirubin [Mass/Vol] 1.0 mg/dL Normal 0.3-1.2 [facility] Comment on above: Performed By: #### C BCA, CMP, ####[facility] ([id number])[address], [place] [address] Calcium [Mass/Vol] 8.5 mg/dL Normal 8.5-10.5 [facility] Comment on above: Performed By: #### C DRE [facility], ####[facility] ([id number])[address] [place] [address] 35680 Chloride [Moles/Vol] 101 mmol/L Normal 98-109 [facility] Comment on above: Performed By: #### C DRE [facility], ####[facility] ([id number])[address] [place] [address] 02537 CO2 [Moles/Vol] 25 mmol/L Normal 22-32 [facility] Comment on above: Performed By: #### C SEAN ERICKSON, ####[facility] ([id number])[address] [place] [address] 76331 Creatinine [Mass/Vol] 0.66 mg/dL Normal 0.40-1.00 [facility] Comment on above: Result Comment: METH OD TRACEABLE TO IDMS STANDARD Performed By: #### C DRE [facility], ####[facility] ([id number])[address] [place] [address] 68277 eGFR (CKD-EPI) NON-RACE DEPENDENT >90 Normal >59 [facility] Comment on above: Result Comment: Reported eGFR is based on the CKD-EPI 2021 equation that does not use a race coefficient. Performed By: #### C SEAN ERICKSON, ####[facility] ([id number])[address] [place] [address] 87754 Glucose [Mass/Vol] 132 mg/dL High 65-99 [facility] Comment on above: Performed By: #### C SEAN ERICKSON, ####[facility] ([id number])[address] [place] [address] 49264 Potassium [Moles/Vol] 3.5 mmol/L Normal 3.5-5.0 [facility] Comment on above: Performed By: #### C DRE [facility], ####[facility] ([id number])[address] [place] [address] 19382 Protein [Mass/Vol] 7.0 g/dL Normal 6.0-8.0 [facility] Comment on above: Performed By: #### Chanel ERICKSON [facility], ####[facility] ([id number])[address] [place] [address] 17591 Sodium [Moles/Vol] 137 mmol/L Normal 134-146 [facility] Comment on above: Performed By: #### C SEAN ERICKSON, ####[facility] ([id number])[address] [place] [address] 47893 Urea nitrogen [Mass/Vol] 15 mg/dL Normal 5-27 [facility] Comment on above: Performed By: #### Chanel ERICKSON [facility], 96352-9 ####[facility] ([id number])[address] [place] [address] 64148 Glucose Glucometer (BldC) [M ass/Vol]on 12-21-2023 Glucose [Mass/Vol] 130 mg/dL High 65-99 [facility] Glucose [Mass/Vol] 153 mg/dL High 65-99 [facility] Glucose [Mass/Vol] 206 mg/dL High 65-99 [facility] MAGNESIUMon 12-21-2023 Magnesium [Mass/Vol] 2.2 mg/dL Normal 1.8-2.6 [facility] Comment on above: Performed By: #### C DRE [facility], ####[facility] ([id number])[address] [place] [address] 97702 MR FOOT LT W WO CONTon 12-20 [...] Garcia MD on 12/21/2023 1:06 PM Normal [facility] POTASSIUMon 12-21-2023 Potassium [Moles/Vol] 3.8 mmol/L Normal 3.5-5.0 [facility] Comment on above: Performed By: #### 2 823-3 ####[facility] ([id number])[address] [place] [address] 43669 PROTIME AND INRon 12-21-2023 INR Coag (PPP) [Relative time] 2.4 {INR} High 0.8-1.1 [facility] Comment on above: Performed By: #### P INR ####[facility] ([id number])[address] [place] [address] 23894 PT Coag (PPP) [Time] 27.0 s High 9.8-13.2 [facility] Comment on above: Result Comment: NEW REFERENCE RANGE Performed By: #### P INR ####[facility] ([id number])[address] [place] [address] 92427 BLOOD CULTUREon 02-29-2024 Bacteria identified Aer cx Nom (Bld) SPECIMEN NOTES RSURFACE VEIN CULTURE RESULTS NO GROWTH 5 DAYS Normal [facility] Comment on above: Performed By: #### 1 7928-3 ####[facility] ([id number])[address] [place] [address] 15660 Bacteria identified Aer cx Nom (Bld) SPECIMEN NOTES SUBOPTIMAL VOLUME OF BLOOD COLLECTED, RESULTS MAY BE AFFECTED. CULTURE RESULTS NO GROWTH 5 DAYS Normal [facility] Comment on above: Performed By: #### 1 7928-3 ####[facility] ([id number])[address], [address] [address] CBC AND AUTO DIFFon 12-20-19 24 ABSOLUTE BASOPHIL 0.1 X10E9/L Normal 0.0-0.2 [facility] Comment on above: Performed By: #### Chanel ERICKSON [facility], 1988-02 #### [facility] ([id number]) [address] [place] [address] 51424 #### 16404-8 #### [facility] ([id number]) [address], [address] [place] [address] ABSOLUTE NEUTROPHIL 12.0 X10E9/L High 1.5-6.6 [facility] Comment on above: Performed By: #### Chanel ERICKSON CMP, 1988-02 #### [facility] ([id number]) [address] [place] [address] 51180 #### 32474-0 #### [facility] ([id number]) [address], [address] [place] [address] Basophils/100 WBC (Bld) 0.5 % Normal [facility] Comment on above: Performed By: #### Chanel ERICKSON CMP, 1988-02 #### [facility] ([id number]) [address] [place] [address] 31396 #### 72547-9 #### [facility] ([id number]) [address], [address] [place] [address] Eosinophils (Bld) [#/Vol] 0.3 10*3/uL Normal 0.0-0.4 [facility] Comment on above: Performed By: #### Chanel ERICKSON CMP, 1988-02 #### [facility] ([id number]) [address] [place] [address] 03080 #### 09513-3 #### [facility] ([id number]) [address], [address] [place] [address] Eosinophils/100 WBC (Bld) 2.0 % Normal [facility] Comment on above: Performed By: #### Chanel ERICKSON [facility], 1988-02 #### [facility] ([id number]) [address] [place] [address] 03000 #### 27354-8 #### [facility] ([id number]) [address], [address] [place] [address] Erythrocyte distribution width (RBC) [Ratio] 14.0 % Normal 11.5-15.0 [facility] Comment on above: Performed By: #### Chanel ERICKSON [facility], 1988-02 #### [facility] ([id number]) [address] [place] [address] 71277 #### 14797-7 #### [facility] ([id number]) [address], [address] [place] [address] Hematocrit (Bld) [Volume fraction] 36.1 % Normal 35-47 [facility] Comment on above: Performed By: #### Chanel ERICKSON CMP, 1988-02 #### [facility] ([id number]) [address] [place] [address] 06766 #### 77000-7 #### [facility] ([id number]) [address] [place] [address] Hemoglobin (Bld) [Mass/Vol] 12.1 g/dL Normal 11.7-15.5 [facility] Comment on above: Performed By: #### Chanel ERICKSON CMP, 1988-02 #### [facility] ([id number]) [address] [place] [address] 39827 #### 70243-5 #### [facility] ([id number]) [address], [address] [place] [address] Lymphocytes (Bld) [#/Vol] 2.4 10*3/uL Normal 1.0-3.5 [facility] Comment on above: Performed By: #### Chanel ERICKSON [facility], 1988-02 #### [facility] ([id number]) [address] [place] [address] 89665 #### 78036-7 #### [facility] ([id number]) [address], [address] [place] [address] Lymphocytes/100 WBC (Bld) 14.9 % Normal [facility] Comment on above: Performed By: #### Chanel ERICKSON [facility], 1988-02 #### [facility] ([id number]) [address] [place] [address] 33252 #### 21317-6 #### [facility] ([id number]) [address], [address] [place] [address] MCH (RBC) [Entitic mass] 28.9 pg Normal 27-34 [facility] Comment on above: Performed By: #### Chanel ERICKSON CMP, 1988-02 #### [facility] ([id number]) [address] [place] [address] 95440 #### 68348-1 #### [facility] ([id number]) [address], [address] [place] [address] MCHC (RBC) [Mass/Vol] 33.5 g/dL Normal 32-36 [facility] Comment on above: Performed By: #### Chanel ERICKSON CMP, 1988-02 #### [facility] ([id number]) [address] [place] [address] 94332 #### 09825-3 #### [facility] ([id number]) [address], [address] [place] [address] MCV (RBC) [Entitic vol] 86 fL Normal 80-100 [facility] Comment on above: Performed By: #### Chanel ERICKSON CMP, 1988-02 #### [facility] ([id number]) [address] [place] [address] 78063 #### 32374-3 #### [facility] ([id number]) [address], [address] [place] [address] Monocytes (Bld) [#/Vol] 1.5 10*3/uL High 0-0.9 [facility] Comment on above: Performed By: #### Chanel ERICKSON CMP, 1988-02 #### [facility] ([id number]) [address] [place] [address] 80689 #### 27000-1 #### [facility] ([id number]) [address], [address] [place] [address] Monocytes/100 WBC (Bld) 9.3 % Normal [facility] Comment on above: Performed By: #### Chanel ERICKSON CMP, 1988-02 #### [facility] ([id number]) [address] [place] [address] 89018 #### 19292-7 #### [facility] ([id number]) [address], [address] [place] [address] Neutrophils/100 WBC (Bld) 73.3 % Normal [facility] Comment on above: Performed By: #### Chanel BCA, CMP, 1988-02 #### [facility] ([id number]) [address] [place] [address] 97357 #### 52466-4 #### [facility] ([id number]) [address] [place] [address] Platelet mean volume (Bld) [Entitic vol] 8.4 fL Normal 7-12 [facility] Comment on above: Performed By: #### Chanel ERICKSON, CMP, 1988-02 #### [facility] ([id number]) [address] [place] [address] 44003 #### 51081-4 #### [facility] ([id number]) [address] [place] [address] Platelets (Bld) [#/Vol] 282 10*3/uL Normal 150-450 [facility] Comment on above: Performed By: #### Chanel ERICKSON, CMP, 1988-02 #### [facility] ([id number]) [address] [place] [address] 95562 #### 87675-4 #### [facility] ([id number]) [address] [place] [address] RBC COUNT 4.18 X10E12/L Normal 3.80-5.20 [facility] Comment on above: Performed By: #### Chanel ERICKSON, CMP, 1988-02 #### [facility] ([id number]) [address] [place] [address] 03485 #### 52315-1 #### [facility] ([id number]) [address] [place] [address] WBC (Bld) [#/Vol] 16.4 10*3/uL High 4.0-11.0 [facility] Comment on above: Performed By: #### C BCA, CMP, 1988-02 #### [facility] ([id number]) [address] [place] [address] 58946 #### 75109-8 #### [facility] ([id number]) [address] [place] [address] COMPREHENSIVE METABOLIC PANE Tyrone 12-20-2023 Albumin [Mass/Vol] 3.7 g/dL Normal 3.2-5.3 [facility] Comment on above: Performed By: #### C BCA, CMP, 1988-02 #### [facility] ([id number]) [address] [place] [address] 61953 #### 11431-5 #### [facility] ([id number]) [address], [address] [place] [address] ALP [Catalytic activity/Vol] 74 U/L Normal 39-130 [facility] Comment on above: Performed By: #### C BCA, CMP, 1988-02 #### [facility] ([id number]) [address] [place] [address] 36710 #### 86573-3 #### [facility] ([id number]) [address] [place] [address] ALT [Catalytic activity/Vol] 15 U/L Normal 0-31 [facility] Comment on above: Performed By: #### C BCA, CMP, 1988-02 #### [facility] ([id number]) [address] [place] [address] 01822 #### 21572-2 #### [facility] ([id number]) [address], [address] [place] [address] Anion gap [Moles/Vol] 6 mmol/L Normal 5-15 [facility] Comment on above: Performed By: #### C BCA, CMP, 1988-02 #### [facility] ([id number]) [address] [place] [address] 91412 #### 06894-5 #### [facility] ([id number]) [address] [place] [address] AST [Catalytic activity/Vol] 17 U/L Normal 0-41 [facility] Comment on above: Performed By: #### Chanel ERICKSON CMP, 1988-02 #### [facility] ([id number]) [address] [place] [address] 46252 #### 35550-9 #### [facility] ([id number]) [address] [facility], [address] [place] [address] Bilirubin [Mass/Vol] 0.4 mg/dL Normal 0.3-1.2 [facility] Comment on above: Performed By: #### Chanel ERICKSON CMP, 1988-02 #### [facility] ([id number]) [address] [place] [address] 34156 #### 98182-5 #### [facility] ([id number]) [address] [facility], [address] [place] [address] Calcium [Mass/Vol] 8.3 mg/dL Low 8.5-10.5 [facility] Comment on above: Performed By: #### Chanel ERICKSON CMP, 1988-02 #### [facility] ([id number]) [address] [place] [address] 81411 #### 13157-6 #### [facility] ([id number]) [address], [address] [place] [address] Chloride [Moles/Vol] 101 mmol/L Normal 98-109 [facility] Comment on above: Performed By: #### Chanel BCA CMP, 1988-02 #### [facility] ([id number]) [address] [place] [address] #### 02202-9 #### [facility] ([id number]) [address] [facility], [address] [place] [address] CO2 [Moles/Vol] 26 mmol/L Normal 22-32 [facility] Comment on above: Performed By: #### Chanel ERICKSON CMP, 1988-02 #### [facility] ([id number]) [address] [place] [address] 08793 #### 01412-7 #### [facility] ([id number]) [address] [facility], [address] [place] [address] Creatinine [Mass/Vol] 0.69 mg/dL Normal 0.40-1.00 [facility] Comment on above: Result Comment: METH OD TRACEABLE TO IDMS STANDARD Performed By: #### Chanel ERICKSON CMP, 1988-02 #### [facility] ([id number]) [address] [place] [address] 91377 #### 72518-4 #### [facility] ([id number]) [address] [place] [address], [address] [address] eGFR (CKD-EPI) NON-RACE DEPENDENT >90 Normal >59 [facility] Comment on above: Result Comment: Reported eGFR is based on the CKD-EPI 2020 equation that does not use a race coefficient. Performed By: #### Chanel ERICKSON CMP, 1988-02 #### [facility] ([id number]) [address] [place] [address] 71718 #### 88464-5 #### [facility] ([id number]) [address] [facility], [address] [place] [address] Glucose [Mass/Vol] 132 mg/dL High 65-99 [facility] Comment on above: Performed By: #### Chanel ERICKSON CMP, 1988-02 #### [facility] ([id number]) [address] [place] [address] 53318 #### 46612-1 #### [facility] ([id number]) [address] [place] [address] Potassium [Moles/Vol] 3.8 mmol/L Normal 3.5-5.0 [facility] Comment on above: Performed By: #### Chanel ERICKSON CMP, 1988-02 #### [facility] ([id number]) [address] [place] [address] 06555 #### 11245-8 #### [facility] ([id number]) [address] [place] [address] Protein [Mass/Vol] 7.9 g/dL Normal 6.0-8.0 [facility] Comment on above: Performed By: #### Chanel ERICKSON CMP, 1988-02 #### [facility] ([id number]) [address] [place] [address] 09360 #### 63670-8 #### [facility] ([id number]) [address] [place] [address] Sodium [Moles/Vol] 133 mmol/L Low 134-146 [facility] Comment on above: Performed By: #### Chanel ERICKSON CMP, 1988-02 #### [facility] ([id number]) [address] [place] [address] 89563 #### 20108-9 #### [facility] ([id number]) [address] [place] [address] Urea nitrogen [Mass/Vol] 16 mg/dL Normal 5-27 [facility] Comment on above: Performed By: #### Chanel ERICKSON CMP, 1988-02 #### [facility] ([id number]) [address] [place] [address] 82748 #### 37310-8 #### [facility] ([id number]) [address] [place] [address] CRP [Mass/Vol]on 12-20-2023 C REACTIVE PROTEIN 11.8 mg/dL High 0.000-0.744 [facility] Comment on above: Performed By: #### C DRE [facility], 1988-02 #### [facility] ([id number]) [address] [place] [address]1966 #### [id number] #### [facility] ([id number]) [address], [address] [place] [address] ESR Photometric method (Bld) [Velocity]on 12-20-2023 ESR, ERYTHROCYTE SEDIMENTATION RATE 60 mm/h High 0-30 [facility] Comment on above: Performed By: #### Chanel ERICKSON [facility], 1988-02 #### [facility] ([id number]) [address] [place] [address]1654 #### [id number] #### [facility] ([id number]) [address], [address] [place] [address] Glucose Glucometer (BldC) [M ass/Vol]on 12-20-2023 Glucose [Mass/Vol] 174 mg/dL High 65-99 [facility] URINALYSISon 12-20-2023 Bilirubin Ql (U) Negative Normal NEG [facility] Comment on above: Performed By: #### U A #### [facility] ([id number]) [address] [place] [address] BLOOD/HGB Negative Normal NEG [facility] Comment on above: Performed By: #### U A #### [facility] ([id number]) [address] [place] [address]797 Color (U) YELLOW Normal YELLOW [facility] Comment on above: Performed By: #### U A #### [facility] ([id number]) [address] [place] [address] 24714 Glucose Ql (U) Negative Normal NEG [facility] Comment on above: Performed By: #### U A #### [facility] ([id number]) [address] [place] [address] 45468 Ketones Ql (U) Negative Normal NEG [facility] Comment on above: Performed By: #### U A #### [facility] ([id number]) [address] [place] [address] 11556 Leukocyte esterase Test strip Ql (U) Negative Normal NEG [facility] Comment on above: Performed By: #### U A #### [facility] ([id number]) [address] [place] [address] 59096 Nitrite Ql (U) Positive Abnormal NEG [facility] Comment on above: Performed By: #### U A #### [facility] ([id number]) [address] [place] [address] 59447 pH (U) 6.0 [pH] Normal 5.0-8.5 [facility] Comment on above: Performed By: #### U A #### [facility] ([id number]) [address] [place] [address] 98397 Protein Ql (U) Negative Normal NEG [facility] Comment on above: Performed By: #### U A #### [facility] ([id number]) [address] [place] [address] [place] [address] R.B.CELLS 0 /hpf Normal 0-5 [facility] Comment on above: Performed By: #### U A #### [facility] ([id number]) [address] [place] [id number] Specific gravity (U) [Rel density] 1.015 Normal 1.003-1.035 [facility] Comment on above: Performed By: #### U A #### [facility] ([id number]) [address] [place] [address] [id number] SQUAMOUS EPITHELIUM 0 to 3 Normal 0-5 [facility] Comment on above: Performed By: #### U A #### [facility] ([id number]) [address] [place] [address]339 TURBIDITY CLEAR Normal CLEAR [facility] Comment on above: Performed By: #### U A #### [facility] ([id number]) [address] [place] [address] 57030 Urobilinogen Qn (U) 0.2 {Mindy'U}/dL Normal <1.1 [facility] Comment on above: Performed By: #### U A #### [facility] ([id number]) [address] [place] [address] 22016 W.B.CELLS 0 to 1 Normal 0-5 [facility] Comment on above: Performed By: #### U A #### [facility] ([id number]) [address] [place] [address] [id number] XR FOOT LT MIN 3 VWSon XR [...] Bradshaw MD on 12/20/2023 6:37 PM Normal [facility] XR FOOT RT MIN 3 VWSon [...] Bradshaw MD on 12/20/2023 5:56 PM Normal [facility] XR KNEE RT 3 [facility] XR KNEE RT 3 VWS XR KNEE RT 3 VWS XR KNEE RT 3 VWS CLINICAL INFORMATION: Right knee pain. Fall. Pain. COMPARISON: None. IMPRESSION: * No evidence of acute fracture. 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 No large joint effusion. Osteopenia. Finalized by Andreas Araujo MD on 12/20/2023 5:05 PM [facility] 36on 11-16-2023 36 Please let her know her cholesterol levels look good. Continue pravastatin. Thanks Normal [facility] Telephoneon 11-16-2023 Telephone [id number] Maximo Gill 1950 F Date Provider Department Center 11/16/2023 GinnaEBER JOSHUA [facility] Family History Problem Relation Age of Onset Heart attack Father Diabetes Father Hypertension Father Coronary artery disease Father Rheum arthritis Father Family Status - Relation Status Age at Father Normal [facility] 37on 11-01-2023 37 *Increase amlodipine to 10mg daily. You can take 2 tablets of your current 5mg prescription daily until this runs out then start new prescription of 1 - 10mg tablet daily. *Monitor your blood pressure daily 1-2 hours after medications *Have labs drawn *Follow-up with GI given dark stools Normal [facility] Office Visiton 11-01-2023 Follow-up visit [id number] Maximo Gill Kassy 1950 F Date Provider Department Center 11/01/2023 EBER PAGAN Family History Problem Relation Age of Onset Heart attack Father Diabetes Father Hypertension Father Coronary artery disease Father Rheum arthritis Father Family Status - Relation Status Age at Father Level of Service:50131 [place] OFFICE/OUTPATIENT ESTABLISHED MOD MDM 30 MIN Reason for Visit and Comments: Atrial Fibrillation [80] Congestive Heart Failure [127] Normal [facility] Office Visiton 05-23-2023 Follow-up visit [id number] Maximo Gill Kassy 1950 F Date Provider Department Center 05/23/2023 RAMAN CASTANEDA CHING Salazar Family History Problem Relation Age of Onset Heart attack Father Diabetes Father Hypertension Father Coronary artery disease Father Rheum arthritis Father Family Status - Relation Status Age at Father Level of Service:60243 [place] OFFICE/OUTPATIENT ESTABLISHED LOW MDM 20-29 MIN Normal [facility] CBC AUTO DIFFon 03-02-2023 BASO # 0.1 103/ul Normal 0.0-0.1 [facility] Comment on above: Performed By: #### C BC #### [facility] [address] [address] [address] Yandy Rodarte Basophils/100 WBC (Bld) 0.4 % Normal 0.2-2.0 [facility] Comment on above: Performed By: #### C BC #### [facility] [address] [address] [address] Yandy Rodarte EO # 0.5 103/ul Normal 0.0-0.7 [facility] Comment on above: Performed By: #### C BC #### [facility] [address] [place] [address] Dr. Yandy Rodarte Eosinophils/100 WBC (Bld) 4.1 % Normal 0.9-7.0 [facility] Comment on above: Performed By: #### C BC #### [facility] [address] [place] [address] Dr. Yandy Rodarte Erythrocyte distribution width (RBC) [Ratio] 14.0 % Normal 11.0-15.0 [facility] Comment on above: Performed By: #### C BC #### [facility] [address] [place] [address] Dr. Yandy Rodarte Hematocrit (Bld) [Volume fraction] 42.8 % Normal 36.0-48.0 [facility] Comment on above: Performed By: #### C BC #### [facility] [address] [place] [address] Dr. Yandy Rodarte Hemoglobin (Bld) [Mass/Vol] 13.6 g/dL Normal 12.0-16.0 [facility] Comment on above: Performed By: #### C BC #### [facility] [address] [place] [address] Dr. Yandy Rodarte IG # 0.04 10e3/ul Critically high 0.00-0.03 [facility] Comment on above: Performed By: #### C BC #### [facility] [address] [place] [address] Dr. Yandy Rodarte IG % 0.4 % Normal 0.0-0.5 [facility] Comment on above: Performed By: #### C BC #### [facility] [address] [place] [address] Dr. Yandy Rodarte LYMPH # 2.2 103/ul Normal 1.2-3.8 [facility] Comment on above: Performed By: #### C BC #### [facility] [address] [place] [address] Dr. Yandy Rodarte Lymphocytes/100 WBC (Bld) 20.0 % Critically low 20.5-60.0 [facility] Comment on above: Performed By: #### C BC #### [facility] [address] [place] [address] Dr. Yandy Rodarte MANUAL DIFF REQ NO Normal [facility] Comment on above: Performed By: #### C BC #### [facility] [address] [place] [address] Dr. Yandy Rodarte MCH (RBC) [Entitic mass] 28.2 pg Normal 26.7-34.0 [facility] Comment on above: Performed By: #### C BC #### [facility] [address] [place] [address] Dr. Yandy Rodarte MCHC (RBC) [Mass/Vol] 31.8 g/dL Normal 29.9-35.2 [facility] Comment on above: Performed By: #### C BC #### [facility] [address] [place] [address] Dr. Yandy Rodarte MCV (RBC) [Entitic vol] 88.8 fL Normal 81.0-99.0 [facility] Comment on above: Performed By: #### C BC #### [facility] [address] [place] [address] Dr. Yandy Rodarte MONO # 0.7 103/ul Normal 0.3-0.8 [facility] Comment on above: Performed By: #### C BC #### [facility] [address] [place] [address] Dr. Yandy Rodarte Monocytes/100 WBC (Bld) 6.3 % Normal 1.7-12.0 [facility] Comment on above: Performed By: #### C BC #### [facility] [address] [place] [address] Dr. Yandy Rodarte NEUT # 7.7 103/ul Critically high 1.4-6.5 [facility] Comment on above: Performed By: #### C BC #### [facility] [address] [place] [address] Dr. Yandy Rodarte Neutrophils/100 WBC (Bld) 68.8 % Normal 43.0-75.0 [facility] Comment on above: Performed By: #### C BC #### [facility] [address] [place], [place] [address] Dr. Yandy Rodarte Platelet mean volume (Bld) [Entitic vol] 9.8 fL Normal 9.5-13.5 [facility] Comment on above: Performed By: #### C BC #### [facility] [address] [address] [address] Yandy Rodarte PLT 259 103/ul Normal 150-450 [facility] Comment on above: Performed By: #### C BC #### [facility] [address] [address] [address] Yandy Rodarte RBC 4.82 106/ul Normal 4.20-5.40 [facility] Comment on above: Performed By: #### C BC #### [facility] [id number] Yandy Rodarte WBC 11.2 103/ul Critically high 4.0-11.0 [facility] Comment on above: Performed By: #### C BC #### [facility] [address] [place] [address] Dr. Yandy Rodarte ECHOCARDIO M/2D COMPLETEon 0 03-02-2023 ECHOCARDIO M/2D COMPLETE Patient: AFIA GILL Exam Date: 03/02/2023 : 1950 Gender:F Ordering : MRS. JESSICA PRECIADO [employer] Admission #: [id number] Family : Order #: [id number] CLICK HERE TO VIEW EXAM ECHOCARDIOGRAM REPORT [...] Left Atrium LA Volume Index (2D A2C): 486911 mm3 Left Atrium Systolic Dimension: 3.80 cm [...] Gomez M.D. on 03/02/2023 at 19:19 Normal [facility] LIPID PROFILEon 03-02-2023 CHOL-HDL RATIO NORM SEE BELOW Normal [facility] Comment on above: Result Comment: 3.3 - 4.4 LOW RISK 4.4 - 7.1 AVERAGE RISK 7.1 - 11.0 MODERATE RISK >11.0 HIGH RISK Performed By: #### L IPID, CMP #### [facility] [address] [place] [address] Dr. Yandy Rodarte Cholesterol [Mass/Vol] 203 mg/dL Critically high <=200 [facility] Comment on above: Performed By: #### L IPID, CMP #### [facility] [address] [address] [address] Yandy Rodarte Cholesterol in HDL [Mass/Vol] 35 mg/dL Critically low 40-60 [facility] Comment on above: Performed By: #### L IPID, CMP #### [facility] [address] [place] [address] Dr. Yandy Rodarte Cholesterol in LDL [Mass/Vol] 123.0 mg/dL Normal [facility] Comment on above: Performed By: #### L IPID, CMP #### [facility] [address] [place] [address] Dr. Yandy Rodarte Cholesterol.total/C holesterol in HDL [Mass ratio] 5.8 {ratio} Normal [facility] Comment on above: Performed By: #### L IPID, CMP #### [facility] [address] [place] [address] Dr. Yandy Rodarte HDL NORMAL > or = 60 mg/dl - LO W CARDIOVASCULAR RISK <40 mg/dl - HIGH CARDIOVASCULAR RISK Normal [facility] Comment on above: Performed By: #### L IPID, CMP #### [facility] [address] [place] [address] Dr. Yandy Rodarte LDL CALC NORMAL SEE BELOW Normal [facility] Comment on above: Result Comment: <100 mg/dl OPTIMAL 100 - 129 mg/dl NEAR OR ABOVE OPTIMAL 130 - 159 mg/dl BORDERLINE HIGH 160 - 189 mg/dl HIGH >190 mg/dl VERY HIGH Performed By: #### L IPID, CMP #### [facility] [address] [place] [address] Dr. Yandy Rodarte Triglyceride [Mass/Vol] 225 mg/dL Critically high <=150 [facility] Comment on above: Performed By: #### L IPID, CMP #### [facility] [address] [address] [address] Yandy Rodarte VLDL CALC 45.0 mg/dL Normal [facility] Comment on above: Performed By: #### L IPID, CMP #### [facility] [address] [address] [address] Yandy Rodarte PROF 14(COMP METB)on 023 Albumin [Mass/Vol] 3.5 g/dL Normal 3.4-5.0 [facility] Comment on above: Performed By: #### L IPID, CMP #### [facility] [address] [address] [address] Yandy Rodarte Albumin/Globulin [Mass ratio] 0.8 {ratio} Normal [facility] Comment on above: Performed By: #### L IPID, CMP #### [facility] [address] [address] [address] Yandy Rodarte ALP [Catalytic activity/Vol] 100 U/L Normal 46-116 [facility] Comment on above: Performed By: #### L IPID, CMP #### [facility] [address] [address] [address] Yandy Rodarte ALT [Catalytic activity/Vol] 22 U/L Normal 14-59 [facility] Comment on above: Performed By: #### L IPID, CMP #### [facility] [address] [address] [address] Yandy Rodarte Anion gap [Moles/Vol] 8.9 mmol/L Normal [facility] Comment on above: Performed By: #### L IPID, CMP #### [facility] [address] [address] [address] Yandy Rodarte AST [Catalytic activity/Vol] 17 U/L Normal 15-37 [facility] Comment on above: Performed By: #### L IPID, CMP #### [facility] [address] [place] [address] Dr. Yandy Rodarte Bilirubin [Mass/Vol] 0.4 mg/dL Normal 0.2-1.0 [facility] Comment on above: Performed By: #### L IPID, CMP #### [facility] [address] [address] [address] Yandy Rodarte Calcium [Mass/Vol] 9.2 mg/dL Normal 8.5-10.1 [facility] Comment on above: Performed By: #### L IPID, CMP #### [facility] [address] [address] [address] Yandy Rodarte Chloride [Moles/Vol] 104 mmol/L Normal 98-107 [facility] Comment on above: Performed By: #### L IPID, CMP #### [facility] [address] [place] [address] Dr. Yandy Rodarte CO2 [Moles/Vol] 32.6 mmol/L Critically high 21.0-32.0 [facility] Comment on above: Performed By: #### L IPID, CMP #### [facility] [address] [place] [address] Dr. Yandy Rodarte Creatinine [Mass/Vol] 0.81 mg/dL Normal 0.55-1.02 [facility] Comment on above: Performed By: #### L IPID, CMP #### [facility] [address] [place] [address] Dr. Yandy Rodarte EGFR-AF [facility] >60 Normal >=60 [facility] Comment on above: Performed By: #### L IPID, CMP #### [facility] [address] [place] [address] Dr. Yandy Rodarte EGFR-NON AF [facility] >60 Normal >=60 [facility] Comment on above: Performed By: #### L IPID, CMP #### [facility] [address] [place] [address] Dr. Yandy Rodarte Globulin (S) [Mass/Vol] 4.6 g/dL Normal [facility] Comment on above: Performed By: #### L IPID, CMP #### [facility] [address] [place] [address] Dr. Yandy Rodarte Glucose [Mass/Vol] 114 mg/dL Critically high 74-106 [facility] Comment on above: Performed By: #### L IPID, CMP #### [facility] [address] [address] [address] Yandy Rodarte Potassium [Moles/Vol] 4.5 mmol/L Normal 3.5-5.1 [facility] Comment on above: Performed By: #### L IPID, CMP #### [facility] [address] [place] [address] Dr. Yandy Rodarte Protein [Mass/Vol] 8.1 g/dL Normal 6.4-8.2 [facility] Comment on above: Performed By: #### L IPID, CMP #### [facility] [address] [place] [address] Dr. Yandy Rodarte Sodium [Moles/Vol] 141 mmol/L Normal 136-145 [facility] Comment on above: Performed By: #### L IPID, CMP #### [facility] [address] [place] [address] Dr. Yandy Rodarte Urea nitrogen [Mass/Vol] 18.0 mg/dL Normal 7.0-18.0 [facility] Comment on above: Performed By: #### L IPID, CMP #### [facility] [address] [place] [address] Dr. Yandy Rodarte Urea nitrogen/Creatinine [Mass ratio] 22.2 mg/mg Normal [facility] Comment on above: Performed By: #### L IPID, CMP #### [facility] [address] [place] [address] Dr. Yandy Rodarte Office Visiton 02-19-2023 Follow-up visit [id number] Maximo Gill 1950 F Date Provider Department Center 02/19/2023 [id number]-MOYBLWOPYJESSICA PRECIADO [facility] Family History Problem Relation Age of Onset Heart attack Father Diabetes Father Hypertension Father Coronary artery disease Father Rheum arthritis Father Family Status - Relation Status Age at Father Level of Service:42329 [place] OFFICE/OUTPATIENT ESTABLISHED MOD MDM 30-39 MIN Reason for Visit and Comments: Follow-up [104401] - 6 month follow up Normal [facility] MG MAMM SCREEN MARIELENA W CADon 0 12-27-2022 MG MAMM SCREEN MARIELENA W CAD Patient: AFIA GILL Exam Date: 12/27/2022 : 1950 Gender:F Ordering : DR YAHIR BROTHERS M.D. Admission #: [id number] Family : Order #: [id number] CLICK HERE TO VIEW EXAM RADIOLOGY REPORT [...] cervical cancer at age 37. LOCATION: [facility] BREAST COMPOSITION: Scattered areas fibroglandular density. [...] MD on 12/28/2022 at 09:38 Normal [facility] CT SINUSES WO CONon 05-18-20 22 [...] YAYA ZULUAGA Date: 2022-05-18 08:38 Normal [facility] BASIC METABOLIC PANELon 01-20 Calcium [Mass/Vol] 9.6 mg/dL Normal 8.6-10.3 [facility] Comment on above: Order Comment: No: D o not add to previous draw Performed By: #### [id number] #### [facility] [address] [facility] [place] [address], [facility] Chloride [Moles/Vol] 101 mmol/L Normal 98-107 [facility] Comment on above: Order Comment: No: D o not add to previous draw Performed By: #### 5 [id number] #### [facility] [address] [facility] [place] [address], [facility] CO2 [Moles/Vol] 29 mmol/L Normal 21-31 [facility] Comment on above: Order Comment: No: D o not add to previous draw Performed By: #### 5 [id number] #### [facility] [address] [place] [address], [facility] Creatinine [Mass/Vol] 0.71 mg/dL Normal 0.60-1.20 [facility] Comment on above: Order Comment: No: D o not add to previous draw Performed By: #### 5 [id number] #### [facility] [address] [place] [address], [facility] GFR/1.73 sq M predicted among blacks MDRD (S/P/Bld) [Vol rate/Area] mL/min/{1.73_m2} Normal >60 [facility] Comment on above: Order Comment: No: D o not add to previous draw Performed By: #### 5 [id number] #### [facility] [address] [place] [address], [place] GFR/1.73 sq M predicted among non-blacks MDRD (S/P/Bld) [Vol rate/Area] mL/min/{1.73_m2} Normal >60 [facility] Comment on above: Order Comment: No: D o not add to previous draw Performed By: #### 5 [id number] #### [facility] [address] [place] [address], [place] Glucose [Mass/Vol] 127 mg/dL High 70-100 [facility] Comment on above: Order Comment: No: D o not add to previous draw Performed By: #### 5 [id number] #### [facility] [address] [place] [address], [place] Potassium [Moles/Vol] 4.3 mmol/L Normal 3.5-5.1 [facility] Comment on above: Order Comment: No: D o not add to previous draw Performed By: #### 5 [id number] #### [facility] [address] [place] [address], [place] Sodium [Moles/Vol] 137 mmol/L Normal 136-145 [facility] Comment on above: Order Comment: No: D o not add to previous draw Performed By: #### 5 [id number] #### [facility] [address] [place] [address], [place] Urea nitrogen [Mass/Vol] 20 mg/dL Normal 7-25 [facility] Comment on above: Order Comment: No: D o not add to previous draw Performed By: #### 5 [id number] #### [facility] [address] [place] [address], [place] CBC COMPLETE BLOOD COUNTon 0 4-14-2019 Erythrocyte distribution width (RBC) [Ratio] 14.6 % Normal 11.5-15.0 [facility] Comment on above: Order Comment: No: D o not add to previous draw Performed By: #### 5 [id number] #### [facility] [address] [place] [address], [facility] Hematocrit (Bld) [Volume fraction] 44.6 % Normal 36.0-45.0 [facility] Comment on above: Order Comment: No: D o not add to previous draw Performed By: #### 5 [id number] #### [facility] [address] [place] [address], [facility] Hemoglobin (Bld) [Mass/Vol] 14.1 g/dL Normal 12.0-15.0 [facility] Comment on above: Order Comment: No: D o not add to previous draw Performed By: #### 5 [id number] #### [facility] [address] [place] [address], [facility] MCH (RBC) [Entitic mass] 30.2 pg Normal 27.0-33.0 [facility] Comment on above: Order Comment: No: D o not add to previous draw Performed By: #### 5 [id number] #### [facility] [address] [place] [address], [facility] MCHC (RBC) [Mass/Vol] 31.6 g/dL Low 32.0-35.0 [facility] Comment on above: Order Comment: No: D o not add to previous draw Performed By: #### 5 [id number] #### [facility] [address] [place] [address], [facility] MCV (RBC) [Entitic vol] 95.5 fL Normal 82.0-98.0 [facility] Comment on above: Order Comment: No: D o not add to previous draw Performed By: #### 5 [id number] #### [facility] [address] Nucleated RBC/100 WBC (Bld) [Ratio] 0 % Normal 0-0 [facility] Comment on above: Order Comment: No: D o not add to previous draw Performed By: #### 5 [id number] #### [facility] [address] [place] [address], [facility] PLAT CNT 250 10*3/uL Normal 150-400 [facility] Comment on above: Order Comment: No: D o not add to previous draw Performed By: #### 5 [id number] #### [facility] [address] [place] [address], [facility] RBC (Bld) [#/Vol] 4.67 10*6/uL Normal 3.80-5.00 [facility] Comment on above: Order Comment: No: D o not add to previous draw Performed By: #### 5 [id number] #### [facility] [address] [facility] [place] [address], [facility] WBC (Bld) [#/Vol] 9.20 10*3/uL Normal 4.00-10.60 [facility] Comment on above: Order Comment: No: D o not add to previous draw Performed By: #### 5 [id number] #### [facility] [address] [facility] [place] [address], [facility] POC GLUCOSE LABon 02-02-2019 Glucose [Mass/Vol] 146 mg/dL High 70-100 [facility] Comment on above: Performed By: #### 5 [id number] #### [facility] [address] [facility]. [place] [id number], [facility] Glucose [Mass/Vol] 115 mg/dL High 70-100 [facility] Comment on above: Performed By: #### 5 [id number] #### [facility] [address] [place] [address], [facility] PROTHROMBIN TIMEon 9 INR Coag (PPP) [Relative time] 1.22 {INR} High 0.91-1.16 [facility] Comment on above: Order Comment: No: [...] 1995;108:231S-246S. Performed By: #### 5 [id number] #### [facility] [address] [place] [address], [facility] PT Coag (PPP) [Time] 15.4 s High 12.3-14.8 [facility] Comment on above: Order Comment: No: D o not add to previous draw Result Comment: ALL RESULTS MUST BE INTERPRETED WITH RESPECT TO BLOOD DRAWING ARTIFACT OR DILUTION ERROR OF ANTICOAGULANT AT THE TIME OF SAMPLING. Performed By: #### 5 [id number] #### [facility] [address] [place] [address], [place] POC GLUCOSE LABon 02-01-2019 Glucose [Mass/Vol] 152 mg/dL High 70-100 [facility] Comment on above: Performed By: #### 5 [id number] #### [facility] [address] [place] [address], [place] Glucose [Mass/Vol] 118 mg/dL High 70-100 [facility] Comment on above: Performed By: #### 5 [id number] #### [facility] [address] [facility] [place] [address], [facility] Glucose [Mass/Vol] 197 mg/dL High 70-100 [facility] Comment on above: Performed By: #### 5 [id number] #### [facility] [address] [facility] [place] [address], [facility] Glucose [Mass/Vol] 123 mg/dL High 70-100 [facility] Comment on above: Performed By: #### 5 [id number] #### [facility] [address] [facility]. [address] PROTHROMBIN TIMEon 9 INR Coag (PPP) [Relative time] 1.24 {INR} High 0.91-1.16 [facility] Comment on above: Order Comment: Unkno [...] 1995;108:231S-246S. Performed By: #### 0 0071 #### [facility] [address] [place] [address], [place] PT Coag (PPP) [Time] 15.6 s High 12.3-14.8 [facility] Comment on above: Order Comment: Unkno wn Result Comment: ALL RESULTS MUST BE INTERPRETED WITH RESPECT TO BLOOD DRAWING ARTIFACT OR DILUTION ERROR OF ANTICOAGULANT AT THE TIME OF SAMPLING. Performed By: #### 0 [id number] #### [facility] [address] [place] [address], [facility] FACILITY BASIC METABOLIC PANELon 01-20 Calcium [Mass/Vol] 9.5 mg/dL Normal 8.6-10.3 [facility] Comment on above: Order Comment: No: D o not add to previous draw Performed By: #### 0 0071 #### [facility] [address] [place] [address], [facility] Chloride [Moles/Vol] 98 mmol/L Normal 98-107 [facility] Comment on above: Order Comment: No: D o not add to previous draw Performed By: #### 0 0071 #### [facility] [address] [place] [address], [place] CO2 [Moles/Vol] 29 mmol/L Normal 21-31 [facility] Comment on above: Order Comment: No: D o not add to previous draw Performed By: #### 0 0071 #### [facility] [address] [place] [address], [facility] Creatinine [Mass/Vol] 0.72 mg/dL Normal 0.60-1.20 [facility] Comment on above: Order Comment: No: D o not add to previous draw Performed By: #### 0 0071 #### [facility] [address] [place] [address], [facility] GFR/1.73 sq M predicted among blacks MDRD (S/P/Bld) [Vol rate/Area] mL/min/{1.73_m2} Normal >60 [facility] Comment on above: Order Comment: No: D o not add to previous draw Performed By: #### 0 0071 #### [facility] [address] [place] [address], [facility] GFR/1.73 sq M predicted among non-blacks MDRD (S/P/Bld) [Vol rate/Area] mL/min/{1.73_m2} Normal >60 [facility] Comment on above: Order Comment: No: D o not add to previous draw Performed By: #### 0 0071 #### [facility] [address] [place] [address], [facility] Glucose [Mass/Vol] 120 mg/dL High 70-100 [facility] Comment on above: Order Comment: No: D o not add to previous draw Performed By: #### 0 0071 #### [facility] [address] [place] [address], [facility] Potassium [Moles/Vol] 3.5 mmol/L Normal 3.5-5.1 [facility] Comment on above: Order Comment: No: D o not add to previous draw Performed By: #### 0 0071 #### [facility] [address] [place] [address], [facility] Sodium [Moles/Vol] 138 mmol/L Normal 136-145 [facility] Comment on above: Order Comment: No: D o not add to previous draw Performed By: #### 0 0071 #### [facility] [address] [place] [id number], [facility] Urea nitrogen [Mass/Vol] 20 mg/dL Normal 7-25 [facility] Comment on above: Order Comment: No: D o not add to previous draw Performed By: #### 0 0071 #### [facility] [address] [place] [address], [facility] CBC COMPLETE BLOOD COUNTon 0 - Erythrocyte distribution width (RBC) [Ratio] 14.6 % Normal 11.5-15.0 [facility] Comment on above: Order Comment: No: D o not add to previous draw Performed By: #### 0 0071 #### [facility] [address] [place] [address], [facility] Hematocrit (Bld) [Volume fraction] 42.7 % Normal 36.0-45.0 [facility] Comment on above: Order Comment: No: D o not add to previous draw Performed By: #### 0 0071 #### [facility] [address] [place] [address], [facility] Hemoglobin (Bld) [Mass/Vol] 13.8 g/dL Normal 12.0-15.0 [facility] Comment on above: Order Comment: No: D o not add to previous draw Performed By: #### 0 0071 #### [facility] [address] [place] [address], [facility] MCH (RBC) [Entitic mass] 31.0 pg Normal 27.0-33.0 [facility] Comment on above: Order Comment: No: D o not add to previous draw Performed By: #### 0 0071 #### [facility] [address] [facility] [place] [address], [facility] MCHC (RBC) [Mass/Vol] 32.3 g/dL Normal 32.0-35.0 [facility] Comment on above: Order Comment: No: D o not add to previous draw Performed By: #### 0 0071 #### [facility] [address] [facility] [place] [address], [facility] MCV (RBC) [Entitic vol] 96.0 fL Normal 82.0-98.0 [facility] Comment on above: Order Comment: No: D o not add to previous draw Performed By: #### 0 0071 #### [facility] [address] [place] [address], [facility] Nucleated RBC/100 WBC (Bld) [Ratio] 0 % Normal 0-0 [facility] Comment on above: Order Comment: No: D o not add to previous draw Performed By: #### 0 0071 #### [facility] [address] [place] [address], [place] PLAT CNT 217 10*3/uL Normal 150-400 [facility] Comment on above: Order Comment: No: D o not add to previous draw Performed By: #### 0 0071 #### [facility] [address] [place] [address], [place] RBC (Bld) [#/Vol] 4.45 10*6/uL Normal 3.80-5.00 [facility] Comment on above: Order Comment: No: D o not add to previous draw Performed By: #### 0 0071 #### [facility] [address] [place] [address], [place] WBC (Bld) [#/Vol] 9.17 10*3/uL Normal 4.00-10.60 [facility] Comment on above: Order Comment: No: D o not add to previous draw Performed By: #### 0 0071 #### [facility] [address] [place] [address], [facility] POC GLUCOSE LABon 01-31-2019 Glucose [Mass/Vol] 116 mg/dL High 70-100 [facility] Comment on above: Performed By: #### 0 0071 #### [facility] [address] [place] [address], [place] Glucose [Mass/Vol] 122 mg/dL High 70-100 [facility] Comment on above: Performed By: #### 0 0071 #### [facility] [address] [place] [address], [place] Glucose [Mass/Vol] 191 mg/dL High 70-100 [facility] Comment on above: Performed By: #### 0 0071 #### [facility] [address] [place] [address], [place] Glucose [Mass/Vol] 131 mg/dL High 70-100 [facility] Comment on above: Performed By: #### 0 0071 #### [facility] [address] PROTHROMBIN TIMEon 9 INR Coag (PPP) [Relative time] 1.24 {INR} High 0.91-1.16 [facility] Comment on above: Order Comment: Shaan brunson [...] 1995;108:231S-246S. Performed By: #### 0 0071 #### [facility] [address] [place] [address], [facility] PT Coag (PPP) [Time] 15.6 s High 12.3-14.8 [facility] Comment on above: Order Comment: Shaan brunson Result Comment: ALL RESULTS MUST BE INTERPRETED WITH RESPECT TO BLOOD DRAWING ARTIFACT OR DILUTION ERROR OF ANTICOAGULANT AT THE TIME OF SAMPLING. Performed By: #### 0 0071 #### [facility] [address] [place] [address], [facility] BASIC METABOLIC PANELon 01-20 Calcium [Mass/Vol] 10.0 mg/dL Normal 8.6-10.3 [facility] Comment on above: Order Comment: No: D o not add to previous draw Performed By: #### 0 0071 #### [facility] [address] [place] [address], [place] Chloride [Moles/Vol] 99 mmol/L Normal 98-107 [facility] Comment on above: Order Comment: No: D o not add to previous draw Performed By: #### 0 0071 #### [facility] [address] [place] [address], [place] CO2 [Moles/Vol] 30 mmol/L Normal 21-31 [facility] Comment on above: Order Comment: No: D o not add to previous draw Performed By: #### 0 0071 #### [facility] [address] [place] [address], [place] Creatinine [Mass/Vol] 0.74 mg/dL Normal 0.60-1.20 [facility] Comment on above: Order Comment: No: D o not add to previous draw Performed By: #### 0 0071 #### [facility] [address] [place] [address], [place] GFR/1.73 sq M predicted among blacks MDRD (S/P/Bld) [Vol rate/Area] mL/min/{1.73_m2} Normal >60 [facility] Comment on above: Order Comment: No: D o not add to previous draw Performed By: #### 0 0071 #### [facility] [address] [place] [address], [place] GFR/1.73 sq M predicted among non-blacks MDRD (S/P/Bld) [Vol rate/Area] mL/min/{1.73_m2} Normal >60 [facility] Comment on above: Order Comment: No: D o not add to previous draw Performed By: #### 0 0071 #### [facility] [address] [place] [address], [place] Glucose [Mass/Vol] 112 mg/dL High 70-100 [facility]: Order Comment: No: D o not add to previous draw Performed By: #### 0 0071 #### [facility] [address] [place] [address], [place] Potassium [Moles/Vol] 4.3 mmol/L Normal 3.5-5.1 [facility] Comment on above: Order Comment: No: D o not add to previous draw Performed By: #### 0 0071 #### [facility] [address] [place] [address], [place] Sodium [Moles/Vol] 137 mmol/L Normal 136-145 [facility] Comment on above: Order Comment: No: D o not add to previous draw Performed By: #### 0 0071 #### [facility] [address] [place] [address], [place] Urea nitrogen [Mass/Vol] 20 mg/dL Normal 7-25 [facility] Comment on above: Order Comment: No: D o not add to previous draw Performed By: #### 0 0071 #### [facility] [address] [place] [address], [place] Calcium [Mass/Vol] 9.3 mg/dL Normal 8.6-10.3 [facility] Comment on above: Order Comment: No: D o not add to previous draw Performed By: #### 5 [id number] #### [facility] [address] [place] [address], [place] Chloride [Moles/Vol] 103 mmol/L Normal 98-107 [facility] Comment on above: Order Comment: No: D o not add to previous draw Performed By: #### 5 6101 #### [facility] [address] [place] [address], [place] CO2 [Moles/Vol] 28 mmol/L Normal 21-31 [facility] Comment on above: Order Comment: No: D o not add to previous draw Performed By: #### 5 [id number] #### [facility] [address] [place] [address], [facility] Creatinine [Mass/Vol] 0.62 mg/dL Normal 0.60-1.20 [facility] Comment on above: Order Comment: No: D o not add to previous draw Performed By: #### 5 [id number] #### [facility] [address] [place] [address], [facility] GFR/1.73 sq M predicted among blacks MDRD (S/P/Bld) [Vol rate/Area] mL/min/{1.73_m2} Normal >60 [facility] Comment on above: Order Comment: No: D o not add to previous draw Performed By: #### 5 [id number] #### [facility] [address] [place] [address], [facility] GFR/1.73 sq M predicted among non-blacks MDRD (S/P/Bld) [Vol rate/Area] mL/min/{1.73_m2} Normal >60 [facility] Comment on above: Order Comment: No: D o not add to previous draw Performed By: #### 5 [id number] #### [facility] [address] [place] [address], [place] Glucose [Mass/Vol] 117 mg/dL High 70-100 [facility] Comment on above: Order Comment: No: D o not add to previous draw Performed By: #### 5 [id number] #### [facility] [address] [place] [address], [place] Potassium [Moles/Vol] 3.5 mmol/L Normal 3.5-5.1 [facility] Comment on above: Order Comment: No: D o not add to previous draw Performed By: #### 5 [id number] #### [facility] [address] [place] [id number], [facility] Sodium [Moles/Vol] 140 mmol/L Normal 136-145 [facility] Comment on above: Order Comment: No: D o not add to previous draw Performed By: #### 5 6101 #### [facility] [address] [place] [address], [facility] Urea nitrogen [Mass/Vol] 15 mg/dL Normal 7-25 [facility] Comment on above: Order Comment: No: D o not add to previous draw Performed By: #### 5 [id number] #### [facility] [address] [place] [address], [facility] CBC COMPLETE BLOOD COUNTon 0 - Erythrocyte distribution width (RBC) [Ratio] 14.6 % Normal 11.5-15.0 [facility] Comment on above: Order Comment: No: D o not add to previous draw Performed By: #### 5 [id number] #### [facility] [address] [place] [address], [facility] Hematocrit (Bld) [Volume fraction] 42.1 % Normal 36.0-45.0 [facility] Comment on above: Order Comment: No: D o not add to previous draw Performed By: #### 5 [id number] #### [facility] [address] [place] [address], [facility] Hemoglobin (Bld) [Mass/Vol] 13.4 g/dL Normal 12.0-15.0 [facility] Comment on above: Order Comment: No: D o not add to previous draw Performed By: #### 5 [id number] #### [facility] [address] [place] [address], [facility] MCH (RBC) [Entitic mass] 30.6 pg Normal 27.0-33.0 [facility] Comment on above: Order Comment: No: D o not add to previous draw Performed By: #### 5 [id number] #### [facility] [address] [place] [address], [facility] MCHC (RBC) [Mass/Vol] 31.8 g/dL Low 32.0-35.0 [facility] Comment on above: Order Comment: No: D o not add to previous draw Performed By: #### 5 [id number] #### [facility] [address] [place] [id number], [facility] MCV (RBC) [Entitic vol] 96.1 fL Normal 82.0-98.0 [facility] Comment on above: Order Comment: No: D o not add to previous draw Performed By: #### 5 [id number] #### [facility] [address] [facility] [place] [address], [facility] Nucleated RBC/100 WBC (Bld) [Ratio] 0 % Normal 0-0 [facility] Comment on above: Order Comment: No: D o not add to previous draw Performed By: #### 5 [id number] #### [facility] [address] [place] [address], [facility] PLAT CNT 215 10*3/uL Normal 150-400 [facility] Comment on above: Order Comment: No: D o not add to previous draw Performed By: #### 5 [id number] #### [facility] [address] [facility] [place] [address], [facility] RBC (Bld) [#/Vol] 4.38 10*6/uL Normal 3.80-5.00 [facility] Comment on above: Order Comment: No: D o not add to previous draw Performed By: #### 5 [id number] #### [facility] [address] [place] [id number], [facility] WBC (Bld) [#/Vol] 8.75 10*3/uL Normal 4.00-10.60 [facility] Comment on above: Order Comment: No: D o not add to previous draw Performed By: #### 5 [id number] #### [facility] [address] [facility]. [address] Cardiovascular Lab Reporton 01-30-2019 Cardiovascular Lab Report [facility] Patient Name: Afia Gill [facility] A MR #: [id number] Department of Physician: Raman Gomez M.D. Division of Service Date: 01/29/2019 Cardiology Birthdate: 1950 Adult Cardiovascular Room #: 3AB [id number] [address] [place] [address] Cardiovascular Laboratory Report INDICATION: The patient is [...] signed informed consent. She was brought to catheter finisher and inspector in a fasting state. The right neck area was prepped and draped in usual fashion. Using ultrasound guidance and micropuncture technique, the internal jugular vein was accessed. A 6-Honduran x 11 cm sheath was placed. A 6-Honduran Caldera catheter was used for right heart catheterization with measurement of pressures and calculation of cardiac output using the estimated Nader method. The Caldera catheter was removed. Using ultrasound guidance and micropuncture technique, the right radial artery was accessed. A 6-Honduran x 11 cm Hydrophilic sheath was advanced. Verapamil was given through the sheath and a bolus of bivalirudin was given intravenously as the patient has prior history of heparin-induced thrombocytopenia. Note that, the care was taken to avoid any use of heparin during the procedure. Bilateral selective coronary angiography was then performed using 6-Honduran JL3.5 and JR5 diagnostic catheters. Catheters were removed. A 6-Honduran angled pigtail catheter was advanced over the [...] with 30% left ventricular ejection fraction. 3. Gfhy-zm-ohfmvrbx mitral regurgitation. 4. Severely elevated filling pressures. [...] Gomez M.D. Date Trans: 01/30/2019 07:50 A/mmo [id number] cc: Yahir Brothers M.D. [address] [place] [address] Yahir Mijares M.D. [address] [facility] [address] Normal [facility] MAGNESIUM BLOODon 01-30-2019 Magnesium [Mass/Vol] 2.2 mg/dL Normal 1.9-2.7 [facility] Comment on above: Order Comment: No: D o not add to previous draw Performed By: #### 0 0071 #### [facility] [address] [place] [address], [place] Magnesium [Mass/Vol] 2.2 mg/dL Normal 1.9-2.7 [facility] Comment on above: Order Comment: No: D o not add to previous draw Performed By: #### 5 [id number] #### [facility] [address] [place] [address], [place] POC GLUCOSE LABon 01-30-2019 Glucose [Mass/Vol] 107 mg/dL High 70-100 [facility] Comment on above: Performed By: #### 5 6101 #### [facility] [address] [place] [address], [place] Glucose [Mass/Vol] 125 mg/dL High 70-100 The [facility] Comment on above: Performed By: #### 5 [id number] #### [facility] [address] [place] [address], [place] Glucose [Mass/Vol] 137 mg/dL High 70-100 [facility] Comment on above: Performed By: #### 5 6101 #### [facility] [address] [place] [address], [place] Glucose [Mass/Vol] 114 mg/dL High 70-100 [facility] Comment on above: Performed By: #### 5 6101 #### [facility] [address] [facility] [address] PROTHROMBIN TIMEon 9 INR Coag (PPP) [Relative time] 1.23 {INR} High 0.91-1.16 [facility] Comment on above: Order Comment: No: [...] 1995;108:231S-246S. Performed By: #### 5 [id number] #### [facility] [address] [facility]. [address] PT Coag (PPP) [Time] 15.5 s High 12.3-14.8 [facility] Comment on above: Order Comment: No: D o not add to previous draw Result Comment: ALL RESULTS MUST BE INTERPRETED WITH RESPECT TO BLOOD DRAWING ARTIFACT OR DILUTION ERROR OF ANTICOAGULANT AT THE TIME OF SAMPLING. Performed By: #### 5 [id number] #### [facility] [address] [facility] [address] TSH3on 01-30-2019 TSH 3RD GENERATION 1.24 uIU/mL Normal 0.34-5.60 [facility] Comment on above: Order Comment: No: D o not add to previous draw Performed By: #### 5 [id number] #### [facility] [address] [place] [address], [facility] CBC COMPLETE BLOOD COUNTon 0 01-29-2019 Erythrocyte distribution width (RBC) [Ratio] 14.7 % Normal 11.5-15.0 [facility] Comment on above: Order Comment: No: D o not add to previous draw Performed By: #### 5 0608 #### [facility] [address] [place] [address], [facility] Hematocrit (Bld) [Volume fraction] 43.4 % Normal 36.0-45.0 [facility] Comment on above: Order Comment: No: D o not add to previous draw Performed By: #### 5 0608 #### [facility] [address] [place] [address], [facility] Hemoglobin (Bld) [Mass/Vol] 13.8 g/dL Normal 12.0-15.0 [facility] Comment on above: Order Comment: No: D o not add to previous draw Performed By: #### 5 0608 #### [facility] [address] [facility] [place] [address], [facility] MCH (RBC) [Entitic mass] 30.3 pg Normal 27.0-33.0 [facility] Comment on above: Order Comment: No: D o not add to previous draw Performed By: #### 5 0608 #### [facility] [address] [place] [address], [facility] MCHC (RBC) [Mass/Vol] 31.8 g/dL Low 32.0-35.0 [facility] Comment on above: Order Comment: No: D o not add to previous draw Performed By: #### 5 0608 #### [facility] [address] [place] [address], [facility] MCV (RBC) [Entitic vol] 95.2 fL Normal 82.0-98.0 [facility] Comment on above: Order Comment: No: D o not add to previous draw Performed By: #### 5 0608 #### [facility] [address] [facility] [address] Nucleated RBC/100 WBC (Bld) [Ratio] 0 % Normal 0-0 [facility] Comment on above: Order Comment: No: D o not add to previous draw Performed By: #### 5 0608 #### [facility] [address] [facility] [place] [address], [facility] PLAT CNT 240 10*3/uL Normal 150-400 [facility] Comment on above: Order Comment: No: D o not add to previous draw Performed By: #### 5 0608 #### [facility] [address] [facility] [place] [address], [facility] RBC (Bld) [#/Vol] 4.56 10*6/uL Normal 3.80-5.00 [facility] Comment on above: Order Comment: No: D o not add to previous draw Performed By: #### 5 0608 #### [facility] [address] [facility] [place] [address], [facility] WBC (Bld) [#/Vol] 9.28 10*3/uL Normal 4.00-10.60 [facility] Comment on above: Order Comment: No: D o not add to previous draw Performed By: #### 5 0608 #### [facility] [address] [facility] [place] [address], [facility] COMP METABOLIC PANELon 01-29 Albumin [Mass/Vol] 4.1 g/dL Normal 3.5-5.7 [facility] Comment on above: Order Comment: No: D o not add to previous draw Performed By: #### 1 0070, [id number], [id number] #### [facility] [address] [place] [address], [facility] ALKALINE PHOSPH 50 IU/L Normal 34-[address] [facility] Comment on above: Order Comment: No: D o not add to previous draw Performed By: #### 1 0, [id number], [id number] #### [facility] [address] [place] [address], [place] ALT [Catalytic activity/Vol] 14 U/L Normal 7-52 [facility] Comment on above: Order Comment: No: D o not add to previous draw Performed By: #### 1 0, 19556, 16634 #### [facility] [address] [place] [address], [place] AST [Catalytic activity/Vol] 15 U/L Normal 13-39 [facility] Comment on above: Order Comment: No: D o not add to previous draw Performed By: #### 1 0, , 94514 #### [facility] [address] [place] [address], [place] Bilirubin [Mass/Vol] 0.8 mg/dL Normal 0.3-1.0 [facility] Comment on above: Order Comment: No: D o not add to previous draw Performed By: #### 1 0, 60524, 36814 #### [facility] [address] [place] [address], [place] Calcium [Mass/Vol] 9.6 mg/dL Normal 8.6-10.3 [facility] Comment on above: Order Comment: No: D o not add to previous draw Performed By: #### 1 0, 89454, 16311 #### [facility] [address] [place] [address], [place] Chloride [Moles/Vol] 103 mmol/L Normal 98-107 [facility] Comment on above: Order Comment: No: D o not add to previous draw Performed By: #### 1 0, 99372, 86473 #### [facility] [address] [place] [address], [place] CO2 [Moles/Vol] 30 mmol/L Normal 21-31 The [facility] Comment on above: Order Comment: No: D o not add to previous draw Performed By: #### 1 0, 43558, 37799 #### [facility] [address] [place] [address], [place] Creatinine [Mass/Vol] 0.71 mg/dL Normal 0.60-1.20 [facility] Comment on above: Order Comment: No: D o not add to previous draw Performed By: #### 1 0, , 91930 #### [facility] [address] [place] [address], [place] GFR/1.73 sq M predicted among blacks MDRD (S/P/Bld) [Vol rate/Area] mL/min/{1.73_m2} Normal >60 [facility] Comment on above: Order Comment: No: D o not add to previous draw Performed By: #### 1 0, 34196, 90025 #### [facility] [address] [place] [address], [place] GFR/1.73 sq M predicted among non-blacks MDRD (S/P/Bld) [Vol rate/Area] mL/min/{1.73_m2} Normal >60 [facility] Comment on above: Order Comment: No: D o not add to previous draw Performed By: #### 1 0, [id number], 63595 #### [facility] [address] [place] [address], [place] Glucose [Mass/Vol] 116 mg/dL High 70-100 [facility] Comment on above: Order Comment: No: D o not add to previous draw Performed By: #### 1 0, 49256, 83592 #### [facility] [address] [place] [address], [place] Potassium [Moles/Vol] 3.9 mmol/L Normal 3.5-5.1 [facility] Comment on above: Order Comment: No: D o not add to previous draw Performed By: #### 1 0, 28947, 43329 #### [facility] [address] [place] [address], [place] Protein [Mass/Vol] 7.6 g/dL Normal 6.0-8.3 [facility]: Order Comment: No: D o not add to previous draw Performed By: #### 1 0, 81587, 23573 #### [facility] [address] [place] [address], [place] Sodium [Moles/Vol] 140 mmol/L Normal 136-145 [facility] Comment on above: Order Comment: No: D o not add to previous draw Performed By: #### 1 0, 17847, 41698 #### [facility] [address] [place] [address], [place] Urea nitrogen [Mass/Vol] 18 mg/dL Normal 7-25 [facility] Comment on above: Order Comment: No: D o not add to previous draw Performed By: #### 1 0, 85287, 87984 #### [facility] [address] [place] [address], [place] HEMOGLOBIN A1Con 01-29-2019 HbA1c (Bld) [Mass fraction] 6.1 % High 4.0-6.0 [facility] Comment on above: Order Comment: Yes: Add to Previous draw if able Performed By: #### 5 6101 #### [facility] [address] [place] [address], [place] HbA1c (Bld) [Mass fraction] 128 mg/dL High 70-126 [facility] Comment on above: Order Comment: Yes: Add to Previous draw if able Performed By: #### 5 6101 #### [facility] [address] [place] [address], [place] LIPID PROFILEon 01-29-2019 Cholesterol [Mass/Vol] 130 mg/dL Normal 120-200 [facility] Comment on above: Result Comment: CHOL ESTEROL REFERENCE RANGE: 20 YEARS AND OLDER CARDIOVASCULAR RISK Less than 200 mg/dl Low Risk 200 to 239 mg/dl Borderline Risk 240 mg/dl and greater High Risk Performed By: #### 1 0070, 45823, 51926 #### [facility] [address] [place] [address], [place] Cholesterol in HDL [Mass/Vol] 31 mg/dL Normal 23-92 [facility] Comment on above: Result Comment: Slig ht variation in normal range could be due to gender and/or age. HDL CHOLESTEROL REFERENCE RANGE: 20 years and older Cardiovascular Risk > or =60 mg/dL Desirable 40 TO 59 mg/dL Low Risk <40 mg/dL High Risk Performed By: #### 1 0070, 10817, 91294 #### [facility] [address] [place] [address], [place] Cholesterol in LDL [Mass/Vol] 67 mg/dL Normal 0-130 [facility] Comment on above: Result Comment: LDL IS A CALCULATION LDL IS ONLY VALID IF THE TRIG IS LESS THAN 400. Performed By: #### 1 0070, 01430, 11404 #### [facility] [address] [place] [address], [place] Cholesterol.total/C holesterol in HDL [Mass ratio] 4.2 {ratio} Normal .0-4.5 [facility] Comment on above: Performed By: #### 1 0070, 02345, 22563 #### [facility] [address] [place] [address], [place] NON-HDL CHOLESTEROL 99 mg/dL Normal [facility] Comment on above: Performed By: #### 1 0070, 08592, 17475 #### [facility] [address] [place] [address], [place] Triglyceride [Mass/Vol] 158 mg/dL High 40-149 [facility] Comment on above: Result Comment: TRIG LYCERIDE REFERENCE RANGE: 20 YEARS AND OLDER CARDIOVASCULAR RISK LESS THAN 150 mg/dl LOW RISK 150 TO 199 mg/dl BORDERLINE RISK 200 mg/dl AND GREATER HIGH RISK Performed By: #### 1 0070, 75217, 09596 #### [facility] [address] [place] [address], [facility] VLDL CHOL 32 mg/dL Normal 0-40 [facility] Comment on above: Performed By: #### 1 0070, 92896, 70491 #### [facility] [address] [place] [address], [facility] MAGNESIUM BLOODon 01-29-2019 Magnesium [Mass/Vol] 2.2 mg/dL Normal 1.9-2.7 [facility] Comment on above: Order Comment: No: D o not add to previous draw Performed By: #### 1 0070, 52804, 34125 #### [facility] [address] [place] [address], [facility] POC GLUCOSE LABon 01-29-2019 Glucose [Mass/Vol] 102 mg/dL High 70-100 [facility] Comment on above: Performed By: #### 8 5499 #### [facility] [address] [place] [address], [facility] Glucose [Mass/Vol] 131 mg/dL High 70-100 [facility] Comment on above: Performed By: #### 8 5499 #### [facility] [address] [place] [address], [facility] PROTHROMBIN TIMEon 9 INR Coag (PPP) [Relative time] 1.39 {INR} High 0.91-1.16 [facility] Comment on above: Order Comment: Yes: Add [...] 1995;108:231S-246S. Performed By: #### 5 6101 #### [facility] [address] PT Coag (PPP) [Time] 17.1 s High 12.3-14.8 [facility] Comment on above: Order Comment: Yes: Add to Previous draw if able Result Comment: ALL RESULTS MUST BE INTERPRETED WITH RESPECT TO BLOOD DRAWING ARTIFACT OR DILUTION ERROR OF ANTICOAGULANT AT THE TIME OF SAMPLING. Performed By: #### 5 6101 #### [facility] [address] [facility]. [address] BASIC METABOLIC PANELon 04-0 Calcium [Mass/Vol] 10.1 mg/dL Normal 8.6-10.3 [facility] Comment on above: Performed By: #### 0 0071 #### [facility] [address] [facility] [place] [address], [facility] Chloride [Moles/Vol] 100 mmol/L Normal 98-107 [facility] Comment on above: Performed By: #### 0 0071 #### [facility] [address] [facility] [place] [address], [facility] CO2 [Moles/Vol] 30 mmol/L Normal 21-31 [facility] Comment on above: Performed By: #### 0 0071 #### [facility] [address] [place] [address], [place] Creatinine [Mass/Vol] 0.71 mg/dL Normal 0.60-1.20 [facility] Comment on above: Performed By: #### 0 0071 #### [facility] [address] [place] [address], [place] GFR/1.73 sq M predicted among blacks MDRD (S/P/Bld) [Vol rate/Area] mL/min/{1.73_m2} Normal >60 [facility] Comment on above: Performed By: #### 0 0071 #### [facility] [address] [place] [address], [place] GFR/1.73 sq M predicted among non-blacks MDRD (S/P/Bld) [Vol rate/Area] mL/min/{1.73_m2} Normal >60 [facility] Comment on above: Performed By: #### 0 0071 #### [facility] [address] [place] [address], [place] Glucose [Mass/Vol] 93 mg/dL Normal 70-100 [facility] Comment on above: Performed By: #### 0 0071 #### [facility] [address] [place] [address], [place] Potassium [Moles/Vol] 3.7 mmol/L Normal 3.5-5.1 [facility] Comment on above: Performed By: #### 0 0071 #### [facility] [address] [place] [address], [place] Sodium [Moles/Vol] 139 mmol/L Normal 136-145 [facility] Comment on above: Performed By: #### 0 0071 #### [facility] [address] [place] [address], [place] Urea nitrogen [Mass/Vol] 16 mg/dL Normal 7-25 [facility] Comment on above: Performed By: #### 0 0071 #### [facility] [address] CBC COMPLETE BLOOD COUNTon 0 - Erythrocyte distribution width (RBC) [Ratio] 14.9 % Normal 11.5-15.0 [facility] Comment on above: Performed By: #### 5 0608 #### [facility] [address] Hematocrit (Bld) [Volume fraction] 43.0 % Normal 36.0-45.0 [facility] Comment on above: Performed By: #### 5 0608 #### [facility] [address] Hemoglobin (Bld) [Mass/Vol] 13.7 g/dL Normal 12.0-15.0 [facility] Comment on above: Performed By: #### 5 0608 #### [facility] [address] [facility] [address] MCH (RBC) [Entitic mass] 30.0 pg Normal 27.0-33.0 [facility] Comment on above: Performed By: #### 5 0608 #### [facility] [address] [facility] [place] [address], [facility] MCHC (RBC) [Mass/Vol] 31.9 g/dL Low 32.0-35.0 [facility] Comment on above: Performed By: #### 5 0608 #### [facility] [address] [place] [address], [facility] MCV (RBC) [Entitic vol] 94.3 fL Normal 82.0-98.0 [facility] Comment on above: Performed By: #### 5 0608 #### [facility] [address] [place] [address], [facility] Nucleated RBC/100 WBC (Bld) [Ratio] 0 % Normal 0-0 The [facility] Comment on above: Performed By: #### 5 0608 #### [facility] [address] [place] [address], [facility] PLAT CNT 270 10*3/uL Normal 150-400 The [facility] Comment on above: Performed By: #### 5 0608 #### [facility] [address] RBC (Bld) [#/Vol] 4.56 10*6/uL Normal 3.80-5.00 [facility] Comment on above: Performed By: #### 5 0608 #### [facility] [address] WBC (Bld) [#/Vol] 9.44 10*3/uL Normal 4.00-10.60 [facility] Comment on above: Performed By: #### 5 0608 #### [facility] [address] PROTHROMBIN TIMEon 9 INR Coag (PPP) [Relative time] 1.85 {INR} High 0.91-1.16 [facility] Comment on above: Result Comment: ACCC P [...] 1995;108:231S-246S. Performed By: #### 5 6101 #### [facility] [address] [place] [address], [facility] PT Coag (PPP) [Time] 21.4 s High 12.3-14.8 [facility] Comment on above: Result Comment: ALL RESULTS MUST BE INTERPRETED WITH RESPECT TO BLOOD DRAWING ARTIFACT OR DILUTION ERROR OF ANTICOAGULANT AT THE TIME OF SAMPLING. Performed By: #### 5 6101 #### [facility] [address] Encounters Encounter Date Encounter Type Care Provider Facility Start: 12-31-2023 End: 12-31-2023 ambulatory YAHIR BROTHERS [facility] Start: 12-26-2023 End: 12-29-2023 Evaluation and management of inpatient COLIN Zina KEITH [facility] Start: 12-25-2023 End: 12-29-2023 Evaluation and management of inpatient BIJAL BARNHART [facility] Start: 12-21-2023 End: 12-29-2023 Orders Only Korina Oliver MD Work Phone: [facility] Start: 12-20-2023 End: 12-29-2023 Emergency department patient visit [facility] Start: 12-20-2023 End: 12-29-2023 Emergency department patient visit DANAE BRITTON [facility] Start: 12-20-2023 End: 12-28-2023 Evaluation and management of inpatient [facility] Start: 11-01-2023 End: 11-01-2023 ambulatory EBER JOSHUA [facility] Start: 10-31-2023 End: 10-31-2023 ambulatory YAHIR BROTHERS Not Available Start: 09-05-2023 End: 09-05-2023 ambulatory YAHIR BROTHERS Not Available Start: 07-07-2023 End: 07-10-2023 ambulatory YAHIR BROTHERS Not Available Start: 05-23-2023 End: 05-23-2023 ambulatory RAMAN GOMEZ [facility] Start: 03-02-2023 End: 03-03-[address] DOCTOR LOYOLA Facility:[facility] Start: 02-19-2023 End: 02-19-2023 ambulatory JESSICA PRECIADO [facility] Start: 12-27-2022 End: 12-28-[address] YAHIR BROTHERS Facility:[facility] Start: 05-17-2022 End: 05-18-[address] YAHIR BROTHERS Facility:[facility] Start: 01-29-2019 End: 02-02-2019 Evaluation and management of inpatient YAHIR BROTHERS Facility:[facility] Procedures Date Procedure Procedure [...] Td Vaccines (2 - Td or Tdap) [facility] Start: 12-20-2024 Adult BMI Screening Adult BMI Screen ing [facility] Start: 12-20-2024 Tobacco Screening Tobacco Screening [facility] Start: 06-22-2023 COVID-19 Vaccine ( season) COVID-19 Vaccine () [facility] Start: 2017 Fall Risk Screening Fall Risk Screen ing [facility] Start: 1970 Adult BMI Follow Up Plan Adult BMI Follow Up Plan [facility] Start: 1964 Depression Screening Depression Scre ening [facility] Start: 1952 Medicare Annual Wellness Visit Medicare Annual Wellness Visit [facility] Immunizations Immunization Date Immunization Notes Care Provider Fa cility 02-04-2021 COVID-19, mRNA, LNP- S, PF, 100mcg/0.5mL Dose Korina Oliver MD Work Phone: [facility] 01-07-2021 COVID-19, mRNA, LNP- S, PF, 100mcg/0.5mL Dose Korina Oliver MD Work Phone: [facility] 08-03-2019 pneumococcal conjuga te vaccine, 13 valent Korina Oliver MD Work Phone: [facility] Payers Date Payer Category Payer Unknown [employer] [id number] 2022-Present [phone] [address] [place] [address] [id number] 1959 Unknown [id number] 1959 Unknown [id number] 1952 Unknown [id number] 2.16.840.1.151030.3.579.2.647 1952 Unknown [id number] 2.16.840.1.963011.3.579.2.593 1952 Unknown [id number] 2.16.840.1.156231.3.579.2.593 1952 Unknown [id number] 2.16.840.1.300309.3.579.2.593 1952 Unknown [id number] 2.16.840.1.697772.3.579.2.1286 1952 Unknown [id number] 2.16.840.1.700885.3.579.2.1286 1952 Unknown [id number] 2.16.840.1.253429.3.579.2.1286 1952 Unknown [id number] 2.16.840.1.586703.3.579.2.1286 1952 Unknown [id number] 2.16.840.1.732828.3.579.2.1286 1952 Unknown [id number] 2.16.840.1.510087.3.579.2.1286 1952 Unknown [id number] 2.16.840.1.237239.3.579.2.1286 1952 Unknown [id number] 2.16.840.1.169173.3.579.2.1286 1952 Unknown [id number] 2.16.840.1.279094.3.579.2.1286 1952 Unknown [id number] 2.16.840.1.023332.3.579.2.1259 1952 Unknown [id number] 2.16.840.1.933167.3.579.2.1259 1952 Unknown [id number] 2.16.840.1.641695.3.579.2.1259 1952 Unknown [id number] 2.16.840.1.986630.3.579.2.1286 Medicare [id number] Social History Date Type Detail Facility Start: 12-20-[address] [facility] Ex-smoker [facility] End: 03-11-2002 History of tobacco use Current smoker [facility] End: 03-11-2002 History of tobacco use Cigarette Smoker [facility] Start: 12-02-2020 End: 12-20-2023 Cigarettes smoked current (pack per day) - Reported 1 [facility] Start: 12-20-2023 Tobacco use and exposure Smoke less tobacco non-user [facility] Start: 12-21-2023 Alcohol intake Ex-drinker (finding) [facility] Start: 12-02-2020 End: 12-20-2023 [facility] Mister Mario [facility] Has the [email or web address] or [employer] threatened to shut off services in your home in past 12Mo No [facility] In the past 12 month s, has lack of transportation kept you from medical appointments or from getting medications? No [facility] Start: 12-20-2023 Tobacco Comment quit 17 years ago [facility] Start: 1950 Sex Assigned At Not on file P [employer] Goals Date Patient Goal Desired Activity /State [...] yesterday. Says she was very sick around [place] but is feeling better. Review of Systems HENT: Positive for nosebleeds. Cardiovascular: Positive for dyspnea on exertion. Respiratory: Positive for cough and shortness of breath. Hematologic/Lymphatic: Bruises/bleeds easily. Neurological: Positive for focal weakness and weakness. All other systems reviewed and are negative. [facility] Progress note 11-01-2023 Note Date & Type Note Facility 11-01-2023 Note Cardiovascular Medic [facility] SUBJECTIVE Chief Complaint Patient presents with [...] cystic mastopathy Non-traumatic rhabdomyolysis Nonsustained ventricular tachycardia ([facility]) Leukocytosis Hypoxia Hypertensive disorder Hypercoagulable state (CMS/HCC) History of DVT (deep vein thrombosis) Disorder of bladder Elevated liver enzymes Status post hysterectomy Restless legs syndrome Pure hypercholesterolemia Pulmonary embolism (CMS/HCC) Primary localized osteoarthrosis of shoulder region Osteoarthritis Obstructive sleep apnea syndrome Acute coronary thrombosis not resulting in myocardial infarction ([facility]) Acute embolism and thrombosis of unspecified deep veins of unspecified lower extremity ([facility]) Diabetic renal disease ([facility]) Disorder of kidney and ureter, unspecified Urinary tract infection, site not specified Encounter for other specified aftercare Generalized anxiety disorder Hyperlipidemia Hypoventilation associated with obesity syndrome ([facility]) Lymphedema, not elsewhere classified Insomnia Major depressive disorder, single episode, unspecified Muscle weakness (generalized) Stage 3a chronic kidney disease ([facility]) Rheumatoid arthritis, unspecified ([facility]) Other abnormalities of breathing Osteoarthritis of right ankle and foot Stiffness of unspecified shoulder, not elsewhere classified Unspecified Escherichia coli (E. coli) as the cause of diseases classified elsewhere Ataxia, unspecified Chronic atrial fibrillation ([facility]) Peripheral vascular disease, unspecified ([facility]) Essential (primary) hypertension Unspecified atrial fibrillation ([facility]/HCC) Chronic systolic CHF (congestive heart failure), NYHA class 4 ([facility]) Other chronic pain Past Medical History: Diagnosis Date Atrial fibrillation ([facility]/HCC) CHF (congestive heart failure) ([facility]) Hypertension Pulmonary embolism ([facility]) Family History Problem Relation Name Age [...] Disp: , Rfl (more content not included)... [facility] Progress note 05-23-2023 Note Date & Type Note Facility 05-23-2023 Note [place] [facility] Subjective Afia Gill is [...] filling pressures. She (more content not included)... [facility] Progress note 02-19-2023 Note Date & Type [...] All other systems reviewed and are negative. [facility] Progress note 02-19-2023 Note Date & Type [...] hypokinesis. Echocardiogram 2 (more content not included)... [facility] Instructions Note Date & Type Note Facility [...] PM Hospital Course Note MR#: [id number] I [facility] Pt. Name: Afia Gill Admitted: 01/29/2019 Discharged: [...] and content) DATE CREATED AUTHOR 06/17/2019 [facility] DATE CREATED AUTHOR AUTHOR'S ORGANIZ ATION 03/03/2023 [facility] DATE CREATED AUTHOR AUTHOR'S ORGANIZ ATION 11/17/2023 [facility] DATE CREATED AUTHOR AUTHOR'S ORGANIZ ATION 12/29/2023 [facility] DATE CREATED AUTHOR AUTHOR'S ORGANIZ ATION 12/29/2023 [facility] DATE CREATED AUTHOR AUTHOR'S ORGANIZ ATION 12/31/2023 [facility] Care Teams (unrecognized sec tion and content) Youth Pastor Relationship Specialty Start Date End Date Yahir Brothers MD [address] [facility] [address] [place] [address] PCP - General Internal Medicine 12/20/23 FOR [...] BE BASED ON THE PRIMARY CLINICAL RECORDS. [employer] provides no warranty or guarantee of the accuracy or completeness of information in this document.
[2024-01-04 08:48] LABS: Basophils Absolute Auto 0.1 10^3/uL (0.0-0.1); Basophils Percent Auto 0.5 % (0.2-2.0); Eosinophils Absolute Auto 0.7 10^3/uL (0.0-0.7); Eosinophils Percent Auto 6.2 % (0.9-7.0); Hematocrit 40.2 % (36.0-48.0); Hemoglobin 12.3 g/dL (12.0-16.0); Immature Granulocytes Abs Auto 0.04 10^3/uL (0.00-0.03); Immature Granulocytes Pct Auto 0.3 % (0.0-0.5); Lymphocytes Absolute Auto 2.8 10^3/uL (1.2-3.8); Mean Corpuscular HGB Conc 30.6 g/dL (29.9-35.2); Mean Corpuscular Hemoglobin 28.1 pg (26.7-34.0); Mean Platelet Volume 10.4 fL (9.5-13.5); Monocytes Absolute Auto 0.9 10^3/uL (0.3-0.8); Monocytes Percent Auto 7.7 % (1.7-12.0); Neutrophils Absolute Auto 7.1 10^3/uL (1.4-6.5); Neutrophils Percent Auto 61.3 % (43.0-75.0); Platelet Count 346 10^3/uL (150-450); Red Blood Count 4.37 10^6/uL (4.20-5.40); Red Cell Distribution Width 13.8 % (11.0-15.0); White Blood Count 11.6 10^3/uL (4.0-11.0)
[2024-01-04 09:00] LABS: Alanine Aminotransferase 23 U/L (14-59); Albumin Globulin Ratio 0.6; Albumin Level 2.9 g/dL (3.4-5.0); Alkaline Phosphatase 88 U/L (46-116); Anion Gap 11.4; Aspartate Amino Transferase 14 U/L (15-37); BUN Creatinine Ratio 18.2; Bilirubin Direct 0.1 mg/dL (0.0-0.2); Bilirubin Total 0.3 mg/dL (0.2-1.0); Carbon Dioxide 31.7 mmol/L (21.0-32.0); Chloride 102 mmol/L (98-107); Estimated GFR (African America >60 (>=60); Estimated GFR (Non-African Ame >60 (>=60); Globulin 4.8 g/dL; Glucose 132 mg/dL (74-106); Potassium 4.1 mmol/L (3.5-5.1); Sodium 141 mmol/L (136-145); Total Protein 7.7 g/dL (6.4-8.2)
[2024-01-04 09:02] LABS: INR 2.42; Prothrombin Time 24.4 sec (9.0-11.6)
== END 2024-01-04 01:16 | disposition home or self-care (01) ==
LOC: LAB 01:15
PROVIDERS: PCP Internal Medicine; Visit Provider Family Medicine
DX: M86.9 Osteomyelitis, unspecified (principal); Z79.2 Long term (current) use of antibiotics
CPT/HCPCS: 36415; 80048; 80076; 82550; 85025; 85610

== ENCOUNTER 2024-01-11 02:12 | Outpatient (REF) | payer MEDICARE, SELFPAY ==
--- OUTSIDE RECORDS SUMMARY | 2024-01-11 02:18 | XMS_ITS | CCD ---
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 Care Ed Teacher Name Role Phone YAHIR BROTHERS Referring Unavailable YAHIR BROTHERS Primary Care Unavailable AHMED, LAN Attending Unavailable AHMED LAN Admitting Unavailable [place] Procedure Practitioner Unavailab le UNKNOWN, PROVIDER Surgeon Unavailable MISC, DR COELLO Admitting Unavailable MISC, DR COELLO Attending Unavailable ANDREA, DR GAO Primary Care Unavailable MISC, DR COELLO Consulting Unavailable ANDREA, DR GAO Admitting Unavailable ANDREA, DR GAO Attending Unavailable ANDREA, DR GAO Primary Care Unavailable ANDREA, DR GAO Consulting Unavailable ZIEBER, DR YAYA Miller Consulting Unavailable ANDREA, DR GAO Admitting Unavailable ANDREA, DR GAO Attending Unavailable ANDREA, DR GAO Primary Care Unavailable ANDREA, DR GAO Consulting Unavailable ROMNEY, DR JEANETTE Armenta Consulting Unavailable Yahir Brothers MD Primary Care Provider RAND CRAWFORD Attending Unavailable YAHIR BROTHERS Primary Care Unavailable KORINA OLIVER Admitting Unavailable DANIEL BIRMINGHAM Consulting Unavailable DIVISION OF INFECTIOUS DISEASE, [facility] Consulting Unavailable YAYA KUMAR [...] Referring Unavailable YAHIR BROTHERS Primary Care Unavailable BIJAL BARNHART Attending Unavailable BIJAL BARNHART Referring Unavailable YAHIR BROTHERS Primary Care Unavailable BIJAL BARNHART Attending Unavailable BIJAL BARNHART Referring Unavailable YAHIR BROTHERS Primary Care Unavailable COLIN KEITH Attending Unavailable COLIN KEITH Referring Unavailable YAHIR BROTHERS Primary Care Unavailable YAHIR BROTHERS Attending Unavailable YAHIR BROTHERS Attending Unavailable YAHIR BROTHERS Attending Unavailable YAHIR BROTHERS Referring Unavailable YAHIR BROTHERS Primary Care Unavailable EBER JOSHUA Attending Unavailable JESSICA PRECIADO Attending Unavailable RAMAN GOMEZ Attending Unavailable Allergies Allergy Classification Reported Allergen(s) Allergy Type Date of Onset Reaction(s) Facility (1 source) Estrogens Drug Allergy 9 [facility] (1 source) heparin Drug Allergy 9 [facility] (2 sources) Penicillins; Translations: [PENICILLINS] Drug allergy (disorder) 9 [facility] (2 sources) pregabalin Drug Allergy 9 [facility] (6 sources) Bleach (Sodium Hypochlorite); Translations: [Bleach (Sodium Hypochlorite)] Propensity to adverse reactions (disorder) 9 [facility] (4 sources) Aztreonam; Translations: [ESTROGENS, CONJUGATED] Drug Allergy 9 [facility] (1 source) heparin Drug Allergy [facility] (5 sources) Penicillin; Translations: [PENICILLIN] Drug Allergy 9 [facility] (1 source) Misc-ENV; Translations: [Misc-ENV] Propensity to adverse reactions (disorder) [facility] (1 source) Estrogens, Conjugated (JAIL) Drug Allergy 9 [facility] (4 sources) heparin; Translations: [HEPARIN (PORCINE)] Drug Allergy 9 [facility] (4 sources) pregabalin; Translations: [PREGABALIN] Drug Allergy 9 [facility] (3 sources) Other; Translations: [OTHER] Propensity to adverse reactions [facility] (1 source) heparin; Translations: [HEPARIN SODIUM, PORCINE] Drug Allergy 1 [facility] Medications Completed/Discontinued Medications Medication Drug Class(es) Dates [...] Chronic Disorders of lipid metabolism (3 sources) Hyperlipidemia; Translations: [Hyperlipidemia, unspecified] Onset: 05-23-2023 12-21-2023 Chronic E Codes: Fall (2 sources) Fall; Translations: [Unspecified fall, initial encounter] Onset: 12-20-2023 12-21-2023 Episodic Essential hypertension (3 sources) Hypertensive disorder; Translations: [Essential (primary) hypertension] Onset: 02-19-2023 12-21-2023 Chronic Gastrointestinal hemorrhage (2 sources) Melena; Translations: [...] initial encounter] Onset: 12-21-2023 12-21-2023 Episodic Unclassified (1 source) ill Onset: 12-20-2023 Unclassified (2 sources) Permanent atrial fibrillation; Translations: [Permanent atrial fibrillation] Onset: 07-28-2022 Unclassified (1 source) Heparin-induced thrombocytopenia, unspecified; Translations: [Heparin-induced thrombocytopenia, unspecified] Onset: 07-28-2022 Past or Other Problems Problem Classification Problem Date Documented Da te Episodic/Chronic Other connective tissue disease (1 source) Non-traumatic rhabdomyolysis; Translations: [Rhabdomyolysis] Onset: 07-31-2019 07-31-2019 Episodic Other connective tissue disease (2 sources) Repeated falls; Translations: [Repeated falls] Onset: 07-28-2022 Episodic Other lower respiratory disease (1 source) [...] Test Name Value Interpretation Reference Range Facility 36on 01-09-2024 36 Opat received. Call to [facility] and confirmed orders. Labs will be drawn 01/09. Staff was not aware of the appt today so the visit is rescheduled for 01/10. Normal [facility] CBC AND AUTO DIFFon 12-28-19 24 ABSOLUTE BASOPHIL 0.1 X10E9/L Normal 0.0-0.2 [facility] Comment on above: Performed By: #### U A #### [facility] ([id number]) [address] [place] [address] 10249 ABSOLUTE NEUTROPHIL 9.5 X10E9/L High 1.5-6.6 [facility] Comment on above: Performed By: #### U A #### [facility] ([id number]) [address] [place] [address] 94202 Basophils/100 WBC (Bld) 0.5 % Normal [facility] Comment on above: Performed By: #### U A #### [facility] ([id number]) [address] [place] [address] 63057 Eosinophils (Bld) [#/Vol] 0.8 10*3/uL High 0.0-0.4 [facility] Comment on above: Performed By: #### U A #### [facility] ([id number]) [address] [place] [address] 73957 Eosinophils/100 WBC (Bld) 5.8 % Normal [facility] Comment on above: Performed By: #### U A #### [facility] ([id number]) [address] [place] [address] 94060 Erythrocyte distribution width (RBC) [Ratio] 13.6 % Normal 11.5-15.0 [facility] Comment on above: Performed By: #### U A #### [facility] ([id number]) [address] [place] [address] 86966 Hematocrit (Bld) [Volume fraction] 35.5 % Normal 35-47 [facility] Comment on above: Performed By: #### U A #### [facility] ([id number]) [address] [place] [address] 08858 Hemoglobin (Bld) [Mass/Vol] 11.9 g/dL Normal 11.7-15.5 [facility] Comment on above: Performed By: #### U A #### [facility] ([id number]) [address] [place] [address] 68863 Lymphocytes (Bld) [#/Vol] 2.6 10*3/uL Normal 1.0-3.5 [facility] Comment on above: Performed By: #### U A #### [facility] ([id number]) [address] [place] [address] 93045 Lymphocytes/100 WBC (Bld) 19.1 % Normal [facility] Comment on above: Performed By: #### U A #### [facility] ([id number]) [address] [place] [address] 46246 MCH (RBC) [Entitic mass] 28.7 pg Normal 27-34 [facility] Comment on above: Performed By: #### U A #### [facility] ([id number]) [address] [place] [address] 78661 MCHC (RBC) [Mass/Vol] 33.4 g/dL Normal 32-36 [facility] Comment on above: Performed By: #### U A #### [facility] ([id number]) [address] [place] [address] 56289 MCV (RBC) [Entitic vol] 86 fL Normal 80-100 [facility] Comment on above: Performed By: #### U A #### [facility] ([id number]) [address] [place] [address] 62843 Monocytes (Bld) [#/Vol] 0.7 10*3/uL Normal 0-0.9 [facility] Comment on above: Performed By: #### U A #### [facility] ([id number]) [address] [place] [address] 66124 Monocytes/100 WBC (Bld) 5.3 % Normal [facility] Comment on above: Performed By: #### U A #### [facility] ([id number]) [address] [place] [address] 61813 Neutrophils/100 WBC (Bld) 69.3 % Normal [facility] Comment on above: Performed By: #### U A #### [facility] ([id number]) [address] [place] [address] 15819 Platelet mean volume (Bld) [Entitic vol] 8.7 fL Normal 7-12 [facility] Comment on above: Performed By: #### U A #### [facility] ([id number]) [address] [place] [address] 67067 Platelets (Bld) [#/Vol] 335 10*3/uL Normal 150-450 [facility] Comment on above: Performed By: #### U A #### [facility] ([id number]) [address] [place] [address] 01787 RBC COUNT 4.13 X10E12/L Normal 3.80-5.20 [facility] Comment on above: Performed By: #### U A #### [facility] ([id number]) [address] [place] [address] 47515 WBC (Bld) [#/Vol] 13.7 10*3/uL High 4.0-11.0 [facility] Comment on above: Performed By: #### U A #### [facility] ([id number]) [address] [place] [address] 67497 COMPREHENSIVE METABOLIC PANE [place] 12-28-2023 Albumin [Mass/Vol] 3.1 g/dL Low 3.2-5.3 [facility] Comment on above: Performed By: #### U A #### [facility] ([id number]) [address] [place] [address] ALP [Catalytic activity/Vol] 68 U/L Normal 39-130 [facility] Comment on above: Performed By: #### U A #### [facility] ([id number]) [address] [place] [address] 12339 ALT [Catalytic activity/Vol] 21 U/L Normal 0-31 [facility] Comment on above: Performed By: #### U A #### [facility] ([id number]) [address] [place] [address] 55216 Anion gap [Moles/Vol] 10 mmol/L Normal 5-15 [facility] Comment on above: Performed By: #### U A #### [facility] ([id number]) [address] [place] [address] 66161 AST [Catalytic activity/Vol] 21 U/L Normal 0-41 [facility] Comment on above: Performed By: #### U A #### [facility] ([id number]) [address] [place] [address] 15261 Bilirubin [Mass/Vol] 0.4 mg/dL Normal 0.3-1.2 [facility] Comment on above: Performed By: #### U A #### [facility] ([id number]) [address] [place] [address] 13703 Calcium [Mass/Vol] 8.6 mg/dL Normal 8.5-10.5 [facility] Comment on above: Performed By: #### U A #### [facility] ([id number]) [address] [place] [address] 68405 Chloride [Moles/Vol] 98 mmol/L Normal 98-109 [facility] Comment on above: Performed By: #### U A #### [facility] ([id number]) [address] [place] [address] 16175 CO2 [Moles/Vol] 31 mmol/L Normal 22-32 [facility] Comment on above: Performed By: #### U A #### [facility] ([id number]) [address] [place] [address] 76466 Creatinine [Mass/Vol] 0.72 mg/dL Normal 0.40-1.00 [facility] Comment on above: Result Comment: METH OD TRACEABLE TO IDMS STANDARD Performed By: #### U A #### [facility] ([id number]) [address] [place] [address] 42721 GFR/1.73 sq M.predicted among non-blacks MDRD (S/P/Bld) [Vol rate/Area] 89 mL/min/{1.73_m2} Normal >59 [facility] Comment on above: Result Comment: Reported eGFR is based on the CKD-EPI 2020 equation that does not use a race coefficient. Performed By: #### U A #### [facility] ([id number]) [address] [place] [address] 61854 Glucose [Mass/Vol] 123 mg/dL High 65-99 [facility] Comment on above: Performed By: #### U A #### [facility] ([id number]) [address] [place] [address] 62958 Potassium [Moles/Vol] 3.7 mmol/L Normal 3.5-5.0 [facility] Comment on above: Performed By: #### U A #### [facility] ([id number]) [address] [place] [address] 64614 Protein [Mass/Vol] 7.1 g/dL Normal 6.0-8.0 [facility] Comment on above: Performed By: #### U A #### [facility] ([id number]) [address] [place] [address] 49056 Sodium [Moles/Vol] 139 mmol/L Normal 134-146 [facility] Comment on above: Performed By: #### U A #### [facility] ([id number]) [address] [place] [address] 71871 Urea nitrogen [Mass/Vol] 16 mg/dL Normal 5-27 [facility] Comment on above: Performed By: #### U A #### [facility] ([id number]) [address] [place] [address] 39617 MAGNESIUMon 12-28-2023 Magnesium [Mass/Vol] 2.3 mg/dL Normal 1.8-2.6 [facility] Comment on above: Performed By: #### U A #### [facility] ([id number]) [address] [place] [address] 42382 PROTIME AND INRon 12-28-2023 INR Coag (PPP) [Relative time] 2.5 {INR} High 0.8-1.1 [facility] Comment on above: Performed By: #### U A #### [facility] ([id number]) [address] [place] [address] 38148 PT Coag (PPP) [Time] 28.0 s High 9.8-13.2 [facility] Comment on above: Result Comment: NEW REFERENCE RANGE Performed By: #### U A #### [facility] ([id number]) [address] [place] [address] 99022 Vancomycin trough [Mass/Vol] on 12-28-2023 VANCOMYCIN TROUGH 26.7 ug/mL Critically high 5.0-20.0 [facility] Comment on above: Performed By: #### U A #### [facility] ([id number]) [address] [place] [address] 72605 CBC AND AUTO DIFFon 12-27-19 24 ABSOLUTE BASOPHIL 0.0 X10E9/L Normal 0.0-0.2 [facility] Comment on above: Performed By: #### C BCA, CMP, 1988-02 #### [facility] ([id number]) [address] [place] [address] 26160 #### [id number] #### [facility] ([id number]) [address] [place] [address] ABSOLUTE NEUTROPHIL 8.9 X10E9/L High 1.5-6.6 [facility] Comment on above: Performed By: #### Chanel ERICKSON [facility], 1988-02 #### [facility] ([id number]) [address] [place] [address] 48329 #### 70896-5 #### [facility] ([id number]) [address], [address] [place] [address] Basophils/100 WBC (Bld) 0.3 % Normal [facility] Comment on above: Performed By: #### Chanel ERICKSON [facility], 1988-02 #### [facility] ([id number]) [address] [place] [address] 08881 #### [id number] #### [facility] ([id number]) [address] [place] [address] Eosinophils (Bld) [#/Vol] 0.8 10*3/uL High 0.0-0.4 [facility] Comment on above: Performed By: #### Chanel ERICKSON [facility], 1988-02 #### [facility] ([id number]) [address] [place] [address] 39580 #### [id number] #### [facility] ([id number]) [address] [place] [address] Eosinophils/100 WBC (Bld) 6.1 % Normal [facility] Comment on above: Performed By: #### Chanel ERICKSON [facility], 1988-02 #### [facility] ([id number]) [address] [place] [address] 20682 #### [id number] #### [facility] ([id number]) [address] [facility] [place] [address] Erythrocyte distribution width (RBC) [Ratio] 13.7 % Normal 11.5-15.0 [facility] Comment on above: Performed By: #### Chanel ERICKSON CMP, 1988-02 #### [facility] ([id number]) [address] [place] [address] 56972 #### 87574-4 #### [facility] ([id number]) [address] [facility], [address] [place] [address] Hematocrit (Bld) [Volume fraction] 34.5 % Low 35-47 [facility] Comment on above: Performed By: #### Chanel ERICKSON CMP, 1988-02 #### [facility] ([id number]) [address] [place] [address] 23682 #### 00573-8 #### [facility] ([id number]) [facility] [place] [address] Hemoglobin (Bld) [Mass/Vol] 11.5 g/dL Low 11.7-15.5 [facility] Comment on above: Performed By: #### Chanel ERICKSON CMP, 1988-02 #### [facility] ([id number]) [address] [place] [address] 94676 #### 94507-2 #### [facility] ([id number]) [address] [facility] [place] [address] Lymphocytes (Bld) [#/Vol] 2.4 10*3/uL Normal 1.0-3.5 [facility] Comment on above: Performed By: #### Chanel ERICKSON CMP, 1988-02 #### [facility] ([id number]) [address] [place] [address] 18491 #### 28593-3 #### [facility] ([id number]) [address], [address] [place] [address] Lymphocytes/100 WBC (Bld) 18.4 % Normal [facility] Comment on above: Performed By: #### Chanel ERICKSON CMP, 1988-02 #### [facility] ([id number]) [address] [place] [address] 69448 #### 96690-2 #### [facility] ([id number]) [address] [facility] [place] [address] MCH (RBC) [Entitic mass] 28.8 pg Normal 27-34 [facility] Comment on above: Performed By: #### Chanel ERICKSON CMP, 1988-02 #### [facility] ([id number]) [address] [place] [address] 80357 #### 44050-2 #### [facility] ([id number]) [address] [facility] [place] [address] MCHC (RBC) [Mass/Vol] 33.3 g/dL Normal 32-36 [facility] Comment on above: Performed By: #### Chanel ERICKSON CMP, 1988-02 #### [facility] ([id number]) [address] [place] [address] 99802 #### 00490-8 #### [facility] ([id number]) [address] [place] [address] MCV (RBC) [Entitic vol] 87 fL Normal 80-100 [facility] Comment on above: Performed By: #### Chanel ERICKSON CMP, 1988-02 #### [facility] ([id number]) [address] [place] [address] 03814 #### 68875-6 #### [facility] ([id number]) [address] [place] [address] Monocytes (Bld) [#/Vol] 0.9 10*3/uL Normal 0-0.9 [facility] Comment on above: Performed By: #### Chanel ERICKSON CMP, 1988-02 #### [facility] ([id number]) [address] [place] [address] 79999 #### 41263-9 #### [facility] ([id number]) [address], [address] [place] [address] Monocytes/100 WBC (Bld) 7.1 % Normal [facility] Comment on above: Performed By: #### Chanel ERICKSON CMP, 1988-02 #### [facility] ([id number]) [address] [place] [address] 02186 #### 22090-4 #### [facility] ([id number]) [address], [address] [place] [address] Neutrophils/100 WBC (Bld) 68.1 % Normal [facility] Comment on above: Performed By: #### Chanel ERICKSON [facility], 1988-02 #### [facility] ([id number]) [address] [place] [address] 60564 #### 51118-0 #### [facility] ([id number]) [address] [place] [address] Platelet mean volume (Bld) [Entitic vol] 8.7 fL Normal 7-12 [facility] Comment on above: Performed By: #### Chanel ERICKSON CMP, 1988-02 #### [facility] ([id number]) [address] [place] [address] 08711 #### 98726-0 #### [facility] ([id number]) [address] [place] [address] Platelets (Bld) [#/Vol] 323 10*3/uL Normal 150-450 [facility] Comment on above: Performed By: #### Chanel ERICKSON CMP, 1988-02 #### [facility] ([id number]) [address] [place] [address] 60787 #### 84938-3 #### [facility] ([id number]) [address] [facility], [address] [place] [address] RBC COUNT 3.98 X10E12/L Normal 3.80-5.20 [facility] Comment on above: Performed By: #### Chanel ERICKSON CMP, 1988-02 #### [facility] ([id number]) [address] [place] [address] 27650 #### 45561-7 #### [facility] ([id number]) [address] [facility], [address] [place] [address] WBC (Bld) [#/Vol] 13.1 10*3/uL High 4.0-11.0 [facility] Comment on above: Performed By: #### Chanel ERICKSON CMP, 1988-02 #### [facility] ([id number]) [address] [place] [address] 08618 #### 07914-8 #### [facility] ([id number]) [address] [facility], [address] [place] [address] COMPREHENSIVE METABOLIC PANE [place] 12-27-2023 Albumin [Mass/Vol] 3.0 g/dL Low 3.2-5.3 [facility] Comment on above: Performed By: #### Chanel ERICKSON CMP, 1988-02 #### [facility] ([id number]) [address] [place] [address] 24166 #### 13527-1 #### [facility] ([id number]) [address], [address] [place] [address] ALP [Catalytic activity/Vol] 68 U/L Normal 39-130 [facility] Comment on above: Performed By: #### Chanel ERICKSON CMP, 1988-02 #### [facility] ([id number]) [address] [place] [address] 99216 #### 18582-9 #### [facility] ([id number]) [address], [address] [place] [address] ALT [Catalytic activity/Vol] 17 U/L Normal 0-31 [facility] Comment on above: Performed By: #### Chanel ERICKSON CMP, 1988-02 #### [facility] ([id number]) [address] [place] [address] 50181 #### 74943-0 #### [facility] ([id number]) [address], [address] [place] [address] Anion gap [Moles/Vol] 8 mmol/L Normal 5-15 [facility] Comment on above: Performed By: #### Chanel ERICKSON CMP, 1988-02 #### [facility] ([id number]) [address] [place] [address] 14249 #### 67267-5 #### [facility] ([id number]) [address] [place] [address] AST [Catalytic activity/Vol] 16 U/L Normal 0-41 [facility] Comment on above: Performed By: #### Chanel ERICKSON CMP, 1988-02 #### [facility] ([id number]) [address] [place] [address] 18590 #### 02332-5 #### [facility] ([id number]) [address], [address] [place] [address] Bilirubin [Mass/Vol] 0.5 mg/dL Normal 0.3-1.2 [facility] Comment on above: Performed By: #### Chanel ERICKSON, CMP, 1988-02 #### [facility] ([id number]) [address] [place] [address] 04008 #### 88535-4 #### [facility] ([id number]) [address], [address] [place] [address] Calcium [Mass/Vol] 8.3 mg/dL Low 8.5-10.5 [facility] Comment on above: Performed By: #### C DRE, [facility], 1988-02 #### [facility] ([id number]) [address] [place] [address] 02839 #### 59061-1 #### [facility] ([id number]) [address], [address] [place] [address] Chloride [Moles/Vol] 99 mmol/L Normal 98-109 [facility] Comment on above: Performed By: #### Chanel ERICKSON, [facility], 1988-02 #### [facility] ([id number]) [address] [place] [address] 85921 #### 86364-5 #### [facility] ([id number]) [address] [place] [address] CO2 [Moles/Vol] 31 mmol/L Normal 22-32 [facility] Comment on above: Performed By: #### C BCA, CMP, 1988-02 #### [facility] ([id number]) [address] [place] [address] 37317 #### 53248-3 #### [facility] ([id number]) [address] [place] [address] Creatinine [Mass/Vol] 0.71 mg/dL Normal 0.40-1.00 [facility] Comment on above: Result Comment: METH OD TRACEABLE TO IDMS STANDARD Performed By: #### C SEAN ERICKSON, 1988-02 #### [facility] ([id number]) [address] [place] [address] 55324 #### 89446-1 #### [facility] ([id number]) [address], [address] [place] [address] eGFR (CKD-EPI) NON-RACE DEPENDENT >90 Normal >59 [facility] Comment on above: Result Comment: Reported eGFR is based on the CKD-EPI 2020 equation that does not use a race coefficient. Performed By: #### C SEAN ERICKSON, 1988-02 #### [facility] ([id number]) [address] [place] [address] 58638 #### 23579-8 #### [facility] ([id number]) [address], [address] [place] [address] Glucose [Mass/Vol] 119 mg/dL High 65-99 [facility] Comment on above: Performed By: #### Chanel ERICKSON CMP, 1988-02 #### [facility] ([id number]) [address] [place] [address] 08047 #### 15789-1 #### [facility] ([id number]) [address], [address] [place] [address] Potassium [Moles/Vol] 3.6 mmol/L Normal 3.5-5.0 [facility] Comment on above: Performed By: #### Chanel ERICKSON CMP, 1988-02 #### [facility] ([id number]) [address] [place] [address] 65124 #### 05793-0 #### [facility] ([id number]) [address] [place] [address] Protein [Mass/Vol] 7.0 g/dL Normal 6.0-8.0 [facility] Comment on above: Performed By: #### C BCA, [facility], 1988-02 #### [facility] ([id number]) [address] [place] [address] 84292 #### 25631-3 #### [facility] ([id number]) [address], [address] [place] [address] Sodium [Moles/Vol] 138 mmol/L Normal 134-146 [facility] Comment on above: Performed By: #### C BCA, [facility], 1988-02 #### [facility] ([id number]) [address] [place] [address] 40111 #### 19640-4 #### [facility] ([id number]) [address], [address] [place] [address] Urea nitrogen [Mass/Vol] 18 mg/dL Normal 5-27 [facility] Comment on above: Performed By: #### C DRE, [facility], 1988-02 #### [facility] ([id number]) [address] [place] [address] 75370 #### 69505-4 #### [facility] ([id number]) [address], [address] [place] [address] Glucose Glucometer (BldC) [M ass/Vol]on 12-27-2023 Glucose [Mass/Vol] 149 mg/dL High 65-99 [facility] Glucose [Mass/Vol] 156 mg/dL High 65-99 [facility] Glucose [Mass/Vol] 181 mg/dL High 65-99 [facility] MAGNESIUMon 12-27-2023 Magnesium [Mass/Vol] 2.3 mg/dL Normal 1.8-2.6 [facility] Comment on above: Performed By: #### U A #### [facility] ([id number]) [address] [place] [address] PROTIME AND INRon 12-27-2023 INR Coag (PPP) [Relative time] 2.9 {INR} High 0.8-1.1 [facility] Comment on above: Performed By: #### Chanel ERICKSON [facility], 1988-02 #### [facility] ([id number]) [address] [place] [address] 87651 #### 85382-9 #### [facility] ([id number]) [address] [facility], [address] [place] [address] PT Coag (PPP) [Time] 32.6 s High 9.8-13.2 [facility] Comment on above: Result Comment: NEW REFERENCE RANGE Performed By: #### Chanel ERICKSON [facility], 1988-02 #### [facility] ([id number]) [address] [place] [address] 15247 #### 39305-2 #### [facility] ([id number]) [address] [facility], [address] [place] [address] CBC AND AUTO DIFFon 12-26-19 24 ABSOLUTE BASOPHIL 0.1 X10E9/L Normal 0.0-0.2 [facility] Comment on above: Performed By: #### Chanel ERICKSON [facility], 1988-02 #### [facility] ([id number]) [address] [place] [address] 66263 #### 70079-3 #### [facility] ([id number]) [address] [facility], [address] [place] [address] ABSOLUTE NEUTROPHIL 11.1 X10E9/L High 1.5-6.6 [facility] Comment on above: Performed By: #### Chanel ERICKSON [facility], 1988-02 #### [facility] ([id number]) [address] [place] [address] 89382 #### 30422-6 #### [facility] ([id number]) [address] [facility], [address] [place] [address] Basophils/100 WBC (Bld) 0.4 % Normal [facility] Comment on above: Performed By: #### Chanel ERICKSON CMP, 1988-02 #### [facility] ([id number]) [address] [place] [address] 70886 #### 55397-7 #### [facility] ([id number]) [address], [address] [place] [address] Eosinophils (Bld) [#/Vol] 0.8 10*3/uL High 0.0-0.4 [facility] Comment on above: Performed By: #### Chanel ERICKSON CMP, 1988-02 #### [facility] ([id number]) [address] [place] [address] 22309 #### 23417-7 #### [facility] ([id number]) [address], [address] [place] [address] Eosinophils/100 WBC (Bld) 5.4 % Normal [facility] Comment on above: Performed By: #### Chanel ERICKSON CMP, 1988-02 #### [facility] ([id number]) [address] [place] [address] 32839 #### 07999-2 #### [facility] ([id number]) [address] [place] [address] Erythrocyte distribution width (RBC) [Ratio] 13.9 % Normal 11.5-15.0 [facility] Comment on above: Performed By: #### Chanel ERICKSON CMP, 1988-02 #### [facility] ([id number]) [address] [place] [address] 40742 #### 38138-0 #### [facility] ([id number]) [address], [address] [place] [address] Hematocrit (Bld) [Volume fraction] 35.9 % Normal 35-47 [facility] Comment on above: Performed By: #### Chanel ERICKSON CMP, 1988-02 #### [facility] ([id number]) [address] [place] [address] 52165 #### 05075-3 #### [facility] ([id number]) [address], [address] [place] [address] Hemoglobin (Bld) [Mass/Vol] 11.7 g/dL Normal 11.7-15.5 [facility] Comment on above: Performed By: #### Chanel ERICKSON CMP, 1988-02 #### [facility] ([id number]) [address] [place] [address] 87251 #### 68373-4 #### [facility] ([id number]) [address] [place] [address] Lymphocytes (Bld) [#/Vol] 2.6 10*3/uL Normal 1.0-3.5 [facility] Comment on above: Performed By: #### Chanel ERICKSON [facility], 1988-02 #### [facility] ([id number]) [address] [place] [address] 25721 #### 43429-7 #### [facility] ([id number]) [address] [place] [address] Lymphocytes/100 WBC (Bld) 16.6 % Normal [facility] Comment on above: Performed By: #### Chanel ERICKSON CMP, 1988-02 #### [facility] ([id number]) [address] [place] [address] 44858 #### 68980-0 #### [facility] ([id number]) [address], [address] [place] [address] MCH (RBC) [Entitic mass] 28.2 pg Normal 27-34 [facility] Comment on above: Performed By: #### Chanel ERICKSON CMP, 1988-02 #### [facility] ([id number]) [address] [place] [address] 64607 #### 69128-4 #### [facility] ([id number]) [address] [place] [address] MCHC (RBC) [Mass/Vol] 32.7 g/dL Normal 32-36 [facility] Comment on above: Performed By: #### Chanel ERICKSON CMP, 1988-02 #### [facility] ([id number]) [address] [place] [address] 01496 #### 39601-6 #### [facility] ([id number]) [address], [address] [place] [address] MCV (RBC) [Entitic vol] 86 fL Normal 80-100 [facility] Comment on above: Performed By: #### Chanel ERICKSON CMP, 1988-02 #### [facility] ([id number]) [address] [place] [address] 39384 #### 51761-1 #### [facility] ([id number]) [address] [place] [address] Monocytes (Bld) [#/Vol] 0.9 10*3/uL Normal 0-0.9 [facility] Comment on above: Performed By: #### Chanel ERICKSON CMP, 1988-02 #### [facility] ([id number]) [address] [place] [address] 41550 #### 45286-2 #### [facility] ([id number]) [address] [place] [address] Monocytes/100 WBC (Bld) 5.9 % Normal [facility] Comment on above: Performed By: #### Chanel ERICKSON CMP, 1988-02 #### [facility] ([id number]) [address] [place] [address] 12451 #### 91130-7 #### [facility] ([id number]) [address] [place] [address] Neutrophils/100 WBC (Bld) 71.7 % Normal [facility] Comment on above: Performed By: #### Chanel ERICKSON CMP, 1988-02 #### [facility] ([id number]) [address] [place] [address] 56226 #### 30325-2 #### [facility] ([id number]) [address] [place] [address] Platelet mean volume (Bld) [Entitic vol] 8.6 fL Normal 7-12 [facility] Comment on above: Performed By: #### Chanel ERICKSON [facility], 1988-02 #### [facility] ([id number]) [address] [place] [address] 77205 #### 16797-1 #### [facility] ([id number]) [address] [place] [address] Platelets (Bld) [#/Vol] 338 10*3/uL Normal 150-450 [facility] Comment on above: Performed By: #### Chanel ERICKSON CMP, 1988-02 #### [facility] ([id number]) [address] [place] [address] 13243 #### 25089-9 #### [facility] ([id number]) [address] [place] [address] RBC COUNT 4.16 X10E12/L Normal 3.80-5.20 [facility] Comment on above: Performed By: #### Chanel ERICKSON CMP, 1988-02 #### [facility] ([id number]) [address] [place] [address] 95470 #### 38999-8 #### [facility] ([id number]) [address] [facility] [place] [address] WBC (Bld) [#/Vol] 15.5 10*3/uL High 4.0-11.0 [facility] Comment on above: Performed By: #### C BCA, CMP, 1988-02 #### [facility] ([id number]) [address] [place] [address] 61542 #### 31619-1 #### [facility] ([id number]) [address] [facility] [place] [address] COMPREHENSIVE METABOLIC PANE Tyrone 12-26-2023 Albumin [Mass/Vol] 3.2 g/dL Normal 3.2-5.3 [facility] Comment on above: Performed By: #### Chanel BCA, CMP, 1988-02 #### [facility] ([id number]) [address] [place] [address] 13529 #### 88672-5 #### [facility] ([id number]) [address] [facility], [address] [place] [address] ALP [Catalytic activity/Vol] 69 U/L Normal 39-130 [facility] Comment on above: Performed By: #### Chanel BCA, CMP, 1988-02 #### [facility] ([id number]) [address] [place] [address] 82813 #### 82428-5 #### [facility] ([id number]) [address] [facility] [place] [address] ALT [Catalytic activity/Vol] 16 U/L Normal 0-31 [facility] Comment on above: Performed By: #### C BCA, CMP, 1988-02 #### [facility] ([id number]) [address] [place] [address] 60958 #### 59949-1 #### [facility] ([id number]) [address], [address] [place] [address] Anion gap [Moles/Vol] 10 mmol/L Normal 5-15 [facility] Comment on above: Performed By: #### Chanel ERICKSON CMP, 1988-02 #### [facility] ([id number]) [address] [place] [address] 38576 #### 31566-8 #### [facility] ([id number]) [address] [facility] [place] [address] AST [Catalytic activity/Vol] 17 U/L Normal 0-41 [facility] Comment on above: Performed By: #### Chanel ERICKSON CMP, 1988-02 #### [facility] ([id number]) [address] [place] [address] 07758 #### 58602-3 #### [facility] ([id number]) [address] [facility] [place] [address] Bilirubin [Mass/Vol] 0.4 mg/dL Normal 0.3-1.2 [facility] Comment on above: Performed By: #### Chanel ERICKSON CMP, 1988-02 #### [facility] ([id number]) [address] [place] [address] 80685 #### 58605-4 #### [facility] ([id number]) [address] [place] [address] Calcium [Mass/Vol] 8.7 mg/dL Normal 8.5-10.5 [facility] Comment on above: Performed By: #### Chanel ERICKSON CMP, 1988-02 #### [facility] ([id number]) [address] [place] [address] 18459 #### 51328-0 #### [facility] ([id number]) [address], [address] [place] [address] Chloride [Moles/Vol] 98 mmol/L Normal 98-109 [facility] Comment on above: Performed By: #### C SEAN ERICKSON, 1988-02 #### [facility] ([id number]) [address] [place] [address] 47101 #### 77387-1 #### [facility] ([id number]) [address] [facility] [place] [address] CO2 [Moles/Vol] 31 mmol/L Normal 22-32 [facility] Comment on above: Performed By: #### Chanel ERICKSON CMP, 1988-02 #### [facility] ([id number]) [address] [place] [address] 09712 #### 49170-7 #### [facility] ([id number]) [address] [facility] [place] [address] Creatinine [Mass/Vol] 0.78 mg/dL Normal 0.40-1.00 [facility] Comment on above: Result Comment: METH OD TRACEABLE TO IDMS STANDARD Performed By: #### C SEAN ERICKSON, 1988-02 #### [facility] ([id number]) [address] [place] [address] 82692 #### 30161-6 #### [facility] ([id number]) [address] [place] [address] GFR/1.73 sq M.predicted among non-blacks MDRD (S/P/Bld) [Vol rate/Area] 81 mL/min/{1.73_m2} Normal >59 [facility] Comment on above: Result Comment: Reported eGFR is based on the CKD-EPI 2020 equation that does not use a race coefficient. Performed By: #### C SEAN ERICKSON, 1988-02 #### [facility] ([id number]) [address] [place] [address] 74642 #### 62603-9 #### [facility] ([id number]) [address] [place] [address] Glucose [Mass/Vol] 129 mg/dL High 65-99 [facility] Comment on above: Performed By: #### Chanel ERICKOSN CMP, 1988-02 #### [facility] ([id number]) [address] [place] [address] 09812 #### 47705-1 #### [facility] ([id number]) [address] [facility] [place] [address] Potassium [Moles/Vol] 3.8 mmol/L Normal 3.5-5.0 [facility] Comment on above: Performed By: #### Chanel ERICKSON CMP, 1988-02 #### [facility] ([id number]) [address] [place] [address] 03827 #### 90288-7 #### [facility] ([id number]) [address] [facility] [place] [address] Protein [Mass/Vol] 7.3 g/dL Normal 6.0-8.0 [facility] Comment on above: Performed By: #### Chanel ERICKSON CMP, 1988-02 #### [facility] ([id number]) [address] [place] [address] 21268 #### 71998-2 #### [facility] ([id number]) [address] [place] [address] Sodium [Moles/Vol] 139 mmol/L Normal 134-146 [facility] Comment on above: Performed By: #### Chanel ERICKSON CMP, 1988-02 #### [facility] ([id number]) [address] [place] [address] [place] [address] #### 77336-5 #### [facility] ([id number]) [address], [address] [place] [address] Urea nitrogen [Mass/Vol] 19 mg/dL Normal 5-27 [facility] Comment on above: Performed By: #### Chanel ERICKSON [facility], 1988-02 #### [facility] ([id number]) [address] [place] [address] #### 79475-5 #### [facility] ([id number]) [address] [facility] [place] [address] Glucose Glucometer (BldC) [M ass/Vol]on 12-26-2023 Glucose [Mass/Vol] 146 mg/dL High 65-99 [facility] Glucose [Mass/Vol] 182 mg/dL High 65-99 [facility] Glucose [Mass/Vol] 108 mg/dL High 65-99 [facility] MAGNESIUMon 12-26-2023 Magnesium [Mass/Vol] 2.3 mg/dL Normal 1.8-2.6 [facility] Comment on above: Performed By: #### Chanel ERICKSON [facility], 1988-02 #### [facility] ([id number]) [address] [place] [address] 09931 #### 92011-4 #### [facility] ([id number]) [address] [place] [address] MR FOOT RT W WO CONTon 12-25 [...] Alberto MD on 12/26/2023 12:57 PM Normal [facility] PROTIME AND INRon 12-26-2023 INR Coag (PPP) [Relative time] 3.0 {INR} High 0.8-1.1 [facility] Comment on above: Performed By: #### C DRE [facility], 1988-02 #### [facility] ([id number]) [address] [place] [address] 00002 #### 95415-4 #### [facility] ([id number]) [address] [place] [address] PT Coag (PPP) [Time] 33.3 s High 9.8-13.2 [facility] Comment on above: Result Comment: NEW REFERENCE RANGE Performed By: #### C SEAN ERICKSON, 1988-02 #### [facility] ([id number]) [address] [place] [address] 21589 #### 92436-1 #### [facility] ([id number]) [address] [place] [address] Vancomycin trough [Mass/Vol] on 12-26-2023 VANCOMYCIN TROUGH 11.6 ug/mL Normal 5.0-20.0 [facility] Comment on above: Performed By: #### Chanel ERICKSON CMP, 1988-02 #### [facility] ([id number]) [address] [place] [address] 04860 #### 72338-3 #### [facility] ([id number]) [address] [place] [address] CBC AND AUTO DIFFon 12-25-19 ABSOLUTE BASOPHIL 0.1 X10E9/L Normal 0.0-0.2 [facility] Comment on above: Performed By: #### Chanel ERICKSON [facility], 1986-02 #### [facility] ([id number]) [address] [place] [address] #### [id number] #### [facility] ([id number]) [address], [address] [place] [address] ABSOLUTE NEUTROPHIL 9.4 X10E9/L High 1.5-6.6 [facility] Comment on above: Performed By: #### Chanel ERICKSON CMP, 1986-02 #### [facility] ([id number]) [address] [place] [address] #### 89525-2 #### [facility] ([id number]) [address] [place] [address] Basophils/100 WBC (Bld) 0.4 % Normal [facility] Comment on above: Performed By: #### Chanel ERICKSON CMP, 1986-02 #### [facility] ([id number]) [address] [place] [address] #### [id number] #### [facility] ([id number]) [address] [place] [address] Eosinophils (Bld) [#/Vol] 0.7 10*3/uL High 0.0-0.4 [facility] Comment on above: Performed By: #### Chanel ERICKSON [facility], 1988-02 #### [facility] ([id number]) [address] [place] [address] #### [id number] #### [facility] ([id number]) [address] [facility] [facility] [address] [place] [address] Eosinophils/100 WBC (Bld) 5.3 % Normal [facility] Comment on above: Performed By: #### Chanel ERICKSON [facility], 1988-02 #### [facility] ([id number]) [address] [place] [address] #### [id number] #### [facility] ([id number]) [address] [facility] [facility] [facility] [address] [place] [address] Erythrocyte distribution width (RBC) [Ratio] 13.7 % Normal 11.5-15.0 [facility] Comment on above: Performed By: #### Chanel ERICKSON [facility], 1988-02 #### [facility] ([id number]) [address] [place] [address] 61058 #### 83806-4 #### [facility] ([id number]) [address] [facility] [place] [address] Hematocrit (Bld) [Volume fraction] 37.8 % Normal 35-47 [facility] Comment on above: Performed By: #### Chanel ERICKSON [facility], 1988-02 #### [facility] ([id number]) [address] [place] [address] 89003 #### 80962-8 #### [facility] ([id number]) [address] [facility] [facility] [place] [address] Hemoglobin (Bld) [Mass/Vol] 12.6 g/dL Normal 11.7-15.5 [facility] Comment on above: Performed By: #### Chanel ERICKSON CMP, 1988-02 #### [facility] ([id number]) [address] [place] [address] 10322 #### 88495-9 #### [facility] ([id number]) [address], [address] [place] [address] Lymphocytes (Bld) [#/Vol] 2.4 10*3/uL Normal 1.0-3.5 [facility] Comment on above: Performed By: #### Chanel ERICKSON CMP, 1988-02 #### [facility] ([id number]) [address] [place] [address] 44491 #### 36548-0 #### [facility] ([id number]) [address], [address] [place] [address] Lymphocytes/100 WBC (Bld) 17.5 % Normal [facility] Comment on above: Performed By: #### Chanel ERICKSON CMP, 1988-02 #### [facility] ([id number]) [address] [place] [address] 30236 #### 55802-3 #### [facility] ([id number]) [address], [address] [place] [address] MCH (RBC) [Entitic mass] 28.8 pg Normal 27-34 [facility] Comment on above: Performed By: #### Chanel ERICKSON CMP, 1988-02 #### [facility] ([id number]) [address] [place] [address] 19180 #### 12466-1 #### [facility] ([id number]) [address], [address] [place] [address] MCHC (RBC) [Mass/Vol] 33.4 g/dL Normal 32-36 [facility] Comment on above: Performed By: #### Chanel BCA, CMP, 1988-02 #### [facility] ([id number]) [address] [place] [address] 70394 #### 17588-5 #### [facility] ([id number]) [address], [address] [place] [address] MCV (RBC) [Entitic vol] 86 fL Normal 80-100 [facility] Comment on above: Performed By: #### C BCA, CMP, 1988-02 #### [facility] ([id number]) [address] [place] [address] 65583 #### 09404-3 #### [facility] ([id number]) [address], [address] [place] [address] Monocytes (Bld) [#/Vol] 1.1 10*3/uL High 0-0.9 [facility] Comment on above: Performed By: #### Chanel BCA, CMP, 1988-02 #### [facility] ([id number]) [address] [place] [address] 11009 #### 24134-2 #### [facility] ([id number]) [address], [address] [place] [address] Monocytes/100 WBC (Bld) 8.0 % Normal [facility] Comment on above: Performed By: #### Chanel BCA, CMP, 1988-02 #### [facility] ([id number]) [address] [place] [address] 80520 #### 16617-4 #### [facility] ([id number]) [address], [address] [place] [address] Neutrophils/100 WBC (Bld) 68.8 % Normal [facility] Comment on above: Performed By: #### Chanel BCA, CMP, 1988-02 #### [facility] ([id number]) [address] [place] [address] 78758 #### 38770-0 #### [facility] ([id number]) [address], [address] [place] [address] Platelet mean volume (Bld) [Entitic vol] 8.4 fL Normal 7-12 [facility] Comment on above: Performed By: #### Chanel ERICKSON [facility], 1988-02 #### [facility] ([id number]) [address] [place] [address] 35296 #### 24480-2 #### [facility] ([id number]) [address] [facility] [facility] [place] [address] Platelets (Bld) [#/Vol] 321 10*3/uL Normal 150-450 [facility] Comment on above: Performed By: #### Chanel ERICKSON [facility], 1988-02 #### [facility] ([id number]) [address] [place] [address] 37557 #### 85583-3 #### [facility] ([id number]) [address], [address] [place] [address] RBC COUNT 4.38 X10E12/L Normal 3.80-5.20 [facility] Comment on above: Performed By: #### Chanel ERICKSON CMP, 1988-02 #### [facility] ([id number]) [address] [place] [address] 77834 #### 90360-1 #### [facility] ([id number]) [address], [address] [place] [address] WBC (Bld) [#/Vol] 13.7 10*3/uL High 4.0-11.0 [facility] Comment on above: Performed By: #### Chanel ERICKSON CMP, 1988-02 #### [facility] ([id number]) [address] [place] [address] 71576 #### 69954-4 #### [facility] ([id number]) [address], [address] [place] [address] COMPREHENSIVE METABOLIC PANE Tyrone 12-25-2023 Albumin [Mass/Vol] 3.3 g/dL Normal 3.2-5.3 [facility] Comment on above: Performed By: #### C BCA, CMP, 1988-02 #### [facility] ([id number]) [address] [place] [address] 23505 #### 36823-1 #### [facility] ([id number]) [address] [facility] [facility], [address] [place] [address] ALP [Catalytic activity/Vol] 66 U/L Normal 39-130 [facility] Comment on above: Performed By: #### Chanel BCA, CMP, 1988-02 #### [facility] ([id number]) [address] [place] [address] 68061 #### 38547-3 #### [facility] ([id number]) [address], [address] [place] [address] ALT [Catalytic activity/Vol] 16 U/L Normal 0-31 [facility] Comment on above: Performed By: #### C BCA, CMP, 1988-02 #### [facility] ([id number]) [address] [place] [address] 98177 #### 06547-2 #### [facility] ([id number]) [address], [address] [place] [address] Anion gap [Moles/Vol] 10 mmol/L Normal 5-15 [facility] Comment on above: Performed By: #### C BCA, CMP, 1988-02 #### [facility] ([id number]) [address] [place] [address] 29410 #### 29459-1 #### [facility] ([id number]) [address] [place] [address], [address] [place] [address] AST [Catalytic activity/Vol] 17 U/L Normal 0-41 [facility] Comment on above: Performed By: #### Chanel ERICKSON CMP, 1988-02 #### [facility] ([id number]) [address] [place] [address] 99385 #### 12451-1 #### [facility] ([id number]) [address] [place] [address], [address] [place] [address] Bilirubin [Mass/Vol] 0.5 mg/dL Normal 0.3-1.2 [facility] Comment on above: Performed By: #### Chanel BCA CMP, 1988-02 #### [facility] ([id number]) [address] [place] [address] 41399 #### 26083-8 #### [facility] ([id number]) [address] [place] [address], [address] [place] [address] Calcium [Mass/Vol] 8.9 mg/dL Normal 8.5-10.5 [facility] Comment on above: Performed By: #### Chanel BCA CMP, 1988-02 #### [facility] ([id number]) [address] [place] [address] 42176 #### 36473-3 #### [facility] ([id number]) [address] [place] [address], [address] [place] [address] Chloride [Moles/Vol] 98 mmol/L Normal 98-109 [facility] Comment on above: Performed By: #### hCanel BCA, CMP, 1988-02 #### [facility] ([id number]) [address] [place] [address] 38938 #### 70820-9 #### [facility] ([id number]) [address], [address] [place] [address] CO2 [Moles/Vol] 31 mmol/L Normal 22-32 [facility] Comment on above: Performed By: #### Chanel ERICKSON CMP, 1988-02 #### [facility] ([id number]) [address] [place] [address] 06077 #### 96201-4 #### [facility] ([id number]) [address], [address] [place] [address] Creatinine [Mass/Vol] 0.78 mg/dL Normal 0.40-1.00 [facility] Comment on above: Result Comment: METH OD TRACEABLE TO IDMS STANDARD Performed By: #### Chanel ERICKSON CMP, 1988-02 #### [facility] ([id number]) [address] [place] [address] 16892 #### 23731-3 #### [facility] ([id number]) [address] [facility] [place] [address] GFR/1.73 sq M.predicted among non-blacks MDRD (S/P/Bld) [Vol rate/Area] 81 mL/min/{1.73_m2} Normal >59 [facility] Comment on above: Result Comment: Reported eGFR is based on the CKD-EPI 2020 equation that does not use a race coefficient. Performed By: #### Chanel ERICKSON CMP, 1988-02 #### [facility] ([id number]) [address] [place] [address] 38577 #### 76762-1 #### [facility] ([id number]) [address], [address] [place] [address] Glucose [Mass/Vol] 125 mg/dL High 65-99 [facility] Comment on above: Performed By: #### Chanel ERICKSON CMP, 1988-02 #### [facility] ([id number]) [address] [place] [address] 68793 #### 01221-4 #### [facility] ([id number]) [address], [address] [place] [address] Potassium [Moles/Vol] 3.5 mmol/L Normal 3.5-5.0 [facility] Comment on above: Performed By: #### Chanel ERICKSON CMP, 1988-02 #### [facility] ([id number]) [address] [place] [address] 23034 #### 95221-7 #### [facility] ([id number]) [address], [address] [place] [address] Protein [Mass/Vol] 7.7 g/dL Normal 6.0-8.0 [facility] Comment on above: Performed By: #### Chanel ERICKSON CMP, 1988-02 #### [facility] ([id number]) [address] [place] [address] 33828 #### 57988-3 #### [facility] ([id number]) [address], [address] [place] [address] Sodium [Moles/Vol] 139 mmol/L Normal 134-146 [facility] Comment on above: Performed By: #### Chanel ERICKSON, CMP, 1988-02 #### [facility] ([id number]) [address] [place] [address] 23277 #### 93950-6 #### [facility] ([id number]) [address], [address] [place] [address] Urea nitrogen [Mass/Vol] 19 mg/dL Normal 5-27 [facility] Comment on above: Performed By: #### Chanel BCA, CMP, 1988-02 #### [facility] ([id number]) [address] [place] [address] 37546 #### 05049-7 #### [facility] ([id number]) [address], [address] [place] [address] CRP [Mass/Vol]on 12-25-2023 C REACTIVE PROTEIN 8.6 mg/dL High 0.000-0.744 [facility] Comment on above: Performed By: #### Chanel ERICKSON [facility], 1988-02 #### [facility] ([id number]) [address] [place] [address] 13671 #### 04851-3 #### [facility] ([id number]) [address], [address] [place] [address] ESR Photometric method (Bld) [Velocity]on 12-25-2023 ESR, ERYTHROCYTE SEDIMENTATION RATE 85 mm/h High 0-30 [facility] Comment on above: Performed By: #### Chanel ERICKSON [facility], 1988-02 #### [facility] ([id number]) [address] [place] [address] 11984 #### 42028-6 #### [facility] ([id number]) [address], [address] [place] [address] 0[address] Glucose Glucometer (BldC) [M ass/Vol]on 12-25-2023 Glucose [Mass/Vol] 171 mg/dL High 65-99 [facility] Glucose [Mass/Vol] 125 mg/dL High 65-99 [facility] Glucose [Mass/Vol] 154 mg/dL High 65-99 [facility] MAGNESIUMon 12-25-2023 Magnesium [Mass/Vol] 2.4 mg/dL Normal 1.8-2.6 [facility] Comment on above: Performed By: #### Chanel ERICKSON CMP, 1988-02 #### [facility] ([id number]) [address] [place] [address] 67024 #### 39358-2 #### [facility] ([id number]) [address] [facility], [address] [place] [address] POTASSIUMon 12-25-2023 Potassium [Moles/Vol] 4.2 mmol/L Normal 3.5-5.0 [facility] Comment on above: Performed By: #### Chanel ERICKSON CMP, 1988-02 #### [facility] ([id number]) [address] [place] [address] 99786 #### 70017-4 #### [facility] ([id number]) [address] [place] [address], [address] [place] [address] PROTIME AND INRon 12-25-2023 INR Coag (PPP) [Relative time] 2.6 {INR} High 0.8-1.1 [facility] Comment on above: Performed By: #### Chanel ERICKSON CMP, 1988-02 #### [facility] ([id number]) [address] [place] [address] 40819 #### 81305-0 #### [facility] ([id number]) [address] [place] [address], [address] [place] [address] PT Coag (PPP) [Time] 29.7 s High 9.8-13.2 [facility] Comment on above: Result Comment: NEW REFERENCE RANGE Performed By: #### Chanel ERICKSON CMP, 1988-02 #### [facility] ([id number]) [address] [place] [address] 09708 #### 80460-4 #### [facility] ([id number]) [address] [place] [address], [address] [place] [address] URIC ACIDon 12-25-2023 Urate [Mass/Vol] 8.9 mg/dL High 2.6-7.2 [facility] Comment on above: Performed By: #### Chanel ERICKSON CMP, 1988-02 #### [facility] ([id number]) [address] [place] [address] #### 74052-8 #### [facility] ([id number]) [address] [facility] [facility] [place] [address] XR CHEST 1 VWon 12-25-2023 XR CHEST [...] Wood MD on 12/25/2023 11:21 AM Normal [facility] XR FOOT RT 2 VWSon XR FOOT RT 2 VWS XR FOOT [...] soft tissue swelling. Approved by Resident Aaron rAnold MD on 12/25/2023 2:48 PM I, Andreas Araujo MD have personally reviewed the image(s) and agree with and/or edited the report Finalized by Andreas Araujo MD on 12/25/2023 2:59 PM Normal [facility] CBC AND AUTO DIFFon 12-24-19 ABSOLUTE BASOPHIL 0.1 X10E9/L Normal 0.0-0.2 [facility] Comment on above: Performed By: #### C BCA, CMP, 1988-02 #### [facility] ([id number]) [address] [place] [address] 23802 #### 02299-9 #### [facility] ([id number]) [address] [place] [address] ABSOLUTE NEUTROPHIL 10.2 X10E9/L High 1.5-6.6 [facility] Comment on above: Performed By: #### Chanel ERICKSON CMP, 1988-02 #### [facility] ([id number]) [address] [place] [address] 42217 #### 49521-3 #### [facility] ([id number]) [address] [place] [address] Basophils/100 WBC (Bld) 0.5 % Normal [facility] Comment on above: Performed By: #### Chanel ERICKSON [facility], 1988-02 #### [facility] ([id number]) [address] [place] [address] 53938 #### 74894-5 #### [facility] ([id number]) [address], [address] [place] [address] Eosinophils (Bld) [#/Vol] 0.9 10*3/uL High 0.0-0.4 [facility] Comment on above: Performed By: #### Chanel ERICKSON [facility], 1988-02 #### [facility] ([id number]) [address] [place] [address] 11407 #### 68602-7 #### [facility] ([id number]) [address], [address] [place] [address] Eosinophils/100 WBC (Bld) 6.2 % Normal [facility] Comment on above: Performed By: #### Chanel ERICKSON CMP, 1988-02 #### [facility] ([id number]) [address] [place] [address] 93936 #### 51973-0 #### [facility] ([id number]) [address], [address] [place] [address] Erythrocyte distribution width (RBC) [Ratio] 14.1 % Normal 11.5-15.0 [facility] Comment on above: Performed By: #### Chanel ERICKSON CMP, 1988-02 #### [facility] ([id number]) [address] [place] [address] 85660 #### 69249-1 #### [facility] ([id number]) [address] [facility] [place] [address] Hematocrit (Bld) [Volume fraction] 37.3 % Normal 35-47 [facility] Comment on above: Performed By: #### Chanel ERICKSON CMP, 1988-02 #### [facility] ([id number]) [address] [place] [address] 80924 #### 45284-6 #### [facility] ([id number]) [address] [facility] [place] [address] Hemoglobin (Bld) [Mass/Vol] 12.4 g/dL Normal 11.7-15.5 [facility] Comment on above: Performed By: #### Chanel ERICKSON [facility], 1988-02 #### [facility] ([id number]) [address] [place] [address] 50093 #### 76379-8 #### [facility] ([id number]) [address] [facility] [place] [address] Lymphocytes (Bld) [#/Vol] 2.2 10*3/uL Normal 1.0-3.5 [facility] Comment on above: Performed By: #### Chanel ERICKSON CMP, 1988-02 #### [facility] ([id number]) [address] [place] [address] 98522 #### 50920-2 #### [facility] ([id number]) [address] [facility], [address] [place] [address] Lymphocytes/100 WBC (Bld) 15.4 % Normal [facility] Comment on above: Performed By: #### Chanel ERICKSON CMP, 1988-02 #### [facility] ([id number]) [address] [place] [address] 80353 #### 72428-6 #### [facility] ([id number]) [address], [address] [place] [address] MCH (RBC) [Entitic mass] 29.0 pg Normal 27-34 [facility] Comment on above: Performed By: #### Chanel ERICKSON CMP, 1988-02 #### [facility] ([id number]) [address] [place] [address] 65916 #### 15010-7 #### [facility] ([id number]) [address], [address] [place] [address] MCHC (RBC) [Mass/Vol] 33.3 g/dL Normal 32-36 [facility] Comment on above: Performed By: #### Chanel ERICKSON CMP, 1988-02 #### [facility] ([id number]) [address] [place] [address] 24922 #### 96112-8 #### [facility] ([id number]) [address], [address] [place] [address] MCV (RBC) [Entitic vol] 87 fL Normal 80-100 [facility] Comment on above: Performed By: #### Chanel ERICKSON CMP, 1988-02 #### [facility] ([id number]) [address] [place] [address] 55604 #### 70076-3 #### [facility] ([id number]) [address], [address] [place] [address] Monocytes (Bld) [#/Vol] 0.7 10*3/uL Normal 0-0.9 [facility] Comment on above: Performed By: #### Chanel BCA, CMP, 1988-02 #### [facility] ([id number]) [address] [place] [address] 69130 #### 26329-1 #### [facility] ([id number]) [address] [place] [address] Monocytes/100 WBC (Bld) 5.3 % Normal [facility] Comment on above: Performed By: #### C BCA, CMP, 1988-02 #### [facility] ([id number]) [address] [place] [address] 13037 #### 50407-0 #### [facility] ([id number]) [address] [place] [address] Neutrophils/100 WBC (Bld) 72.6 % Normal [facility] Comment on above: Performed By: #### Chanel BCA, CMP, 1988-02 #### [facility] ([id number]) [address] [place] [address] 94323 #### 16008-2 #### [facility] ([id number]) [address] [place] [address] Platelet mean volume (Bld) [Entitic vol] 8.6 fL Normal 7-12 [facility] Comment on above: Performed By: #### Chanel BCA, CMP, 1988-02 #### [facility] ([id number]) [address] [place] [id number] #### [id number] #### [facility] ([id number]) [address] [place] [address] Platelets (Bld) [#/Vol] 339 10*3/uL Normal 150-450 [facility] Comment on above: Performed By: #### Chanel BCA, CMP, 1988-02 #### [facility] ([id number]) [address] [place] [address] #### [id number] #### [facility] ([id number]) [address] [facility], [address] [place] [address] RBC COUNT 4.29 X10E12/L Normal 3.80-5.20 [facility] Comment on above: Performed By: #### C BCA, CMP, 1988-02 #### [facility] ([id number]) [address] [place] [address] #### [id number] #### [facility] ([id number]) [address] [facility], [address] [place] [address] WBC (Bld) [#/Vol] 14.1 10*3/uL High 4.0-11.0 [facility] Comment on above: Performed By: #### C BCA, CMP, 1988-02 #### [facility] ([id number]) [address] [place] [address] #### [id number] #### [facility] ([id number]) [address] [facility], [address] [place] [address] COMPREHENSIVE METABOLIC PANE Tyr[place] 12-24-2023 Albumin [Mass/Vol] 3.4 g/dL Normal 3.2-5.3 [facility] Comment on above: Performed By: #### C BCA, CMP, 1988-02 #### [facility] ([id number]) [address] [place] [address] #### [id number] #### [facility] ([id number]) [address] [facility], [address] [place] [address] ALP [Catalytic activity/Vol] 67 U/L Normal 39-130 [facility] Comment on above: Performed By: #### C BCA, CMP, 1988-02 #### [facility] ([id number]) [address] [place] [address] #### [id number] #### [facility] ([id number]) [address] [facility], [address] [place] [address] ALT [Catalytic activity/Vol] 13 U/L Normal 0-31 [facility] Comment on above: Performed By: #### C DRE CMP, 1988-02 #### [facility] ([id number]) [address] [place] [address] #### 34503-4 #### [facility] ([id number]) [address] [facility], [address] [place] [address] Anion gap [Moles/Vol] 11 mmol/L Normal 5-15 [facility] Comment on above: Performed By: #### C DRE CMP, 1988-02 #### [facility] ([id number]) [address] [place] [address]38[address] #### 76643-7 #### [facility] ([id number]) [address] [facility], [address] [place] [address] AST [Catalytic activity/Vol] 16 U/L Normal 0-41 [facility] Comment on above: Performed By: #### C DRE CMP, 1988-02 #### [facility] ([id number]) [address] [place] [address] 61394 #### 88568-3 #### [facility] ([id number]) [address] [facility], [address] [place] [address] Bilirubin [Mass/Vol] 0.4 mg/dL Normal 0.3-1.2 [facility] Comment on above: Performed By: #### C BCA, CMP, 1988-02 #### [facility] ([id number]) [address] [place] [address] #### 13702-5 #### [facility] ([id number]) [address] [facility], [address] [place] [address] Calcium [Mass/Vol] 8.9 mg/dL Normal 8.5-10.5 [facility] Comment on above: Performed By: #### C BCA, CMP, 1988-02 #### [facility] ([id number]) [address] [place] [address] 00964 #### 18907-3 #### [facility] ([id number]) [address] [place] [address], [address] [place] [address] Chloride [Moles/Vol] 99 mmol/L Normal 98-109 [facility] Comment on above: Performed By: #### C BCA, CMP, 1988-02 #### [facility] ([id number]) [address] [place] [address] 17243 #### 80682-4 #### [facility] ([id number]) [address] [place] [address], [address] [place] [address] CO2 [Moles/Vol] 30 mmol/L Normal 22-32 [facility] Comment on above: Performed By: #### C BCA, CMP, 1988-02 #### [facility] ([id number]) [address] [place] [address] 84125 #### 58319-2 #### [facility] ([id number]) [address] [place] [address], [address] [place] [address] Creatinine [Mass/Vol] 0.83 mg/dL Normal 0.40-1.00 [facility] Comment on above: Result Comment: METH OD TRACEABLE TO IDMS STANDARD Performed By: #### C BCA, CMP, 1988-02 #### [facility] ([id number]) [address] [place] [address] 32416 #### 90980-0 #### [facility] ([id number]) [address], [address] [place] [address] GFR/1.73 sq M.predicted among non-blacks MDRD (S/P/Bld) [Vol rate/Area] 75 mL/min/{1.73_m2} Normal >59 [facility] Comment on above: Result Comment: Reported eGFR is based on the CKD-EPI 2020 equation that does not use a race coefficient. Performed By: #### C SEAN ERICKSON, 1988-02 #### [facility] ([id number]) [address] [place] [address] 84627 #### 16776-5 #### [facility] ([id number]) [address], [address] [place] [address] Glucose [Mass/Vol] 137 mg/dL High 65-99 [facility] Comment on above: Performed By: #### Chanel ERICKSON [facility], 1988-02 #### [facility] ([id number]) [address] [place] [address] 44[address] #### 00525-3 #### [facility] ([id number]) [address], [address] [place] [address] Potassium [Moles/Vol] 3.8 mmol/L Normal 3.5-5.0 [facility] Comment on above: Performed By: #### Chanel ERICKSON [facility], 1988-02 #### [facility] ([id number]) [address] [place] [address] 02070 #### 38421-8 #### [facility] ([id number]) [address], [address] [place] [address] Protein [Mass/Vol] 7.9 g/dL Normal 6.0-8.0 [facility] Comment on above: Performed By: #### Chanel ERICKSON [facility], 1988-02 #### [facility] ([id number]) [address] [place] [address] 71310 #### 68946-0 #### [facility] ([id number]) [address], [address] [place] [address] Sodium [Moles/Vol] 140 mmol/L Normal 134-146 [facility] Comment on above: Performed By: #### Chanel ERICKSON CMP, 1988-02 #### [facility] ([id number]) [address] [place] [address] 04021 #### 64921-7 #### [facility] ([id number]) [address] [facility], [address] [place] [address] Urea nitrogen [Mass/Vol] 18 mg/dL Normal 5-27 [facility] Comment on above: Performed By: #### Chanel ERICKSON CMP, 1988-02 #### [facility] ([id number]) [address] [place] [address] 80205 #### 64844-5 #### [facility] ([id number]) [address] [facility], [address] [place] [address] Glucose Glucometer (BldC) [M ass/Vol]on 12-24-2023 Glucose [Mass/Vol] 136 mg/dL High 65-99 [facility] Glucose [Mass/Vol] 123 mg/dL High 65-99 [facility] Glucose [Mass/Vol] 152 mg/dL High 65-99 [facility] MAGNESIUMon 12-24-2023 Magnesium [Mass/Vol] 2.2 mg/dL Normal 1.8-2.6 [facility] Comment on above: Performed By: #### Chanel ERICKSON CMP, 1988-02 #### [facility] ([id number]) [address] [place] [address] 57342 #### 04465-1 #### [facility] ([id number]) [address], [address] [place] [address] POTASSIUMon 12-24-2023 Potassium [Moles/Vol] 4.0 mmol/L Normal 3.5-5.0 [facility] Comment on above: Performed By: #### Chanel ERICKSON CMP, 1988-02 #### [facility] ([id number]) [address] [place] [address] 07963 #### 96132-0 #### [facility] ([id number]) [address], [address] [place] [address] PROTIME AND INRon 12-24-2023 INR Coag (PPP) [Relative time] 2.8 {INR} High 0.8-1.1 [facility] Comment on above: Performed By: #### Chanel ERICKSON CMP, 1988-02 #### [facility] ([id number]) [address] [place] [address] 55706 #### 53435-2 #### [facility] ([id number]) [address], [address] [place] [address] PT Coag (PPP) [Time] 30.9 s High 9.8-13.2 [facility] Comment on above: Result Comment: NEW REFERENCE RANGE Performed By: #### Chanel ERICKSON CMP, 1988-02 #### [facility] ([id number]) [address] [place] [address] 59970 #### 75269-0 #### [facility] ([id number]) [address], [address] [place] [address] Vancomycin trough [Mass/Vol] on 12-24-2023 VANCOMYCIN TROUGH 11.4 ug/mL Normal 5.0-20.0 [facility] Comment on above: Performed By: #### Chanel ERICKSON CMP, 1988-02 #### [facility] ([id number]) [address] [place] [address] 25618 #### 60713-5 #### [facility] ([id number]) [address] [facility], [address] [place] [address] CBC AND AUTO DIFFon 12-23-19 24 ABSOLUTE BASOPHIL 0.1 X10E9/L Normal 0.0-0.2 [facility] Comment on above: Performed By: #### C BCA, PINR, CMP, 78023-3 ####[facility] ([id number])[address] [place] [address] ABSOLUTE NEUTROPHIL 10.1 X10E9/L High 1.5-6.6 [facility] Comment on above: Performed By: #### C BCA, PINR, CMP, 06778-9 ####[facility] ([id number])[address] [place] [address] 46271 Basophils/100 WBC (Bld) 1.0 % Normal [facility] Comment on above: Performed By: #### C BCA, PINR, CMP, 95870-3 ####[facility] ([id number])[address] [place] [address] 35073 Eosinophils (Bld) [#/Vol] 0.8 10*3/uL High 0.0-0.4 [facility] Comment on above: Performed By: #### C BCA, PINR, CMP, 58189-9 ####[facility] ([id number])[address] [place] [address] 84334 Eosinophils/100 WBC (Bld) 5.8 % Normal [facility] Comment on above: Performed By: #### Chanel BCA, PINR, CMP, 29285-6 ####[facility] ([id number])[address] [place] [address] 34254 Erythrocyte distribution width (RBC) [Ratio] 13.8 % Normal 11.5-15.0 [facility] Comment on above: Performed By: #### C BCA, PINR, CMP, ####[facility] ([id number])[address] [place] [address] 20476 Hematocrit (Bld) [Volume fraction] 36.1 % Normal 35-47 [facility] Comment on above: Performed By: #### C BCA, PINR, CMP, ####[facility] ([id number])[address] [place] [address] 88850 Hemoglobin (Bld) [Mass/Vol] 12.1 g/dL Normal 11.7-15.5 [facility] Comment on above: Performed By: #### C BCA, PINR, CMP, ####[facility] ([id number])[address] [place] [address] 55810 Lymphocytes (Bld) [#/Vol] 2.4 10*3/uL Normal 1.0-3.5 [facility] Comment on above: Performed By: #### C BCA, PINR, CMP, ####[facility] ([id number])[address] [place] [address] 77582 Lymphocytes/100 WBC (Bld) 16.6 % Normal [facility] Comment on above: Performed By: #### C BCA, PINR, CMP, ####[facility] ([id number])[address] [place] [address] 84277 MCH (RBC) [Entitic mass] 29.0 pg Normal 27-34 [facility] Comment on above: Performed By: #### C BCA, PINR, CMP, ####[facility] ([id number])[address] [place] [address] 00517 MCHC (RBC) [Mass/Vol] 33.6 g/dL Normal 32-36 [facility] Comment on above: Performed By: #### C BCA, PINR, CMP, ####[facility] ([id number])[address] [place] [address] 81810 MCV (RBC) [Entitic vol] 86 fL Normal 80-100 [facility] Comment on above: Performed By: #### C BCA, PINR, CMP, ####[facility] ([id number])[address] [place] [address] 24072 Monocytes (Bld) [#/Vol] 1.1 10*3/uL High 0-0.9 [facility] Comment on above: Performed By: #### C BCA, PINR, CMP, ####[facility] ([id number])[address] [place] [address] 36575 Monocytes/100 WBC (Bld) 7.3 % Normal [facility] Comment on above: Performed By: #### C BCA, PINR, CMP, ####[facility] ([id number])[address] [place] [address] 88085 Neutrophils/100 WBC (Bld) 69.3 % Normal [facility] Comment on above: Performed By: #### C BCA, PINR, CMP, ####[facility] ([id number])[address] [place] [address] 08428 Platelet mean volume (Bld) [Entitic vol] 8.5 fL Normal 7-12 [facility] Comment on above: Performed By: #### C BCA, PINR, CMP, ####[facility] ([id number])[address] [place] [address] 41850 Platelets (Bld) [#/Vol] 286 10*3/uL Normal 150-450 [facility] Comment on above: Performed By: #### C BCA, PINR, CMP, ####[facility] ([id number])[address] [place] [address] 79267 RBC COUNT 4.19 X10E12/L Normal 3.80-5.20 [facility] Comment on above: Performed By: #### C BCA, PINR, CMP, 74553-7 ####[facility] ([id number])[address] [place] [address] 31402 WBC (Bld) [#/Vol] 14.6 10*3/uL High 4.0-11.0 [facility] Comment on above: Performed By: #### C BCA, PINR, CMP, 73406-6 ####[facility] ([id number])[address] [place] [address] 85679 COMPREHENSIVE METABOLIC PANE [place] 12-23-2023 Albumin [Mass/Vol] 3.1 g/dL Low 3.2-5.3 [facility] Comment on above: Performed By: #### Chanel ERICKSON, CMP, 1988-02 #### [facility] ([id number]) [address] [place] [address] 27902 #### 51100-1 #### [facility] ([id number]) [address], [address] [place] [address] ALP [Catalytic activity/Vol] 60 U/L Normal 39-130 [facility] Comment on above: Performed By: #### Chanel ERICKSON, CMP, 1988-02 #### [facility] ([id number]) [address] [place] [address] 48560 #### 52351-5 #### [facility] ([id number]) [address] [facility] [place] [address] ALT [Catalytic activity/Vol] 12 U/L Normal 0-31 [facility] Comment on above: Performed By: #### Chanel BCA, CMP, 1988-02 #### [facility] ([id number]) [address] [place] [address] 13113 #### 96082-0 #### [facility] ([id number]) [address], [address] [place] [address] Anion gap [Moles/Vol] 9 mmol/L Normal 5-15 [facility] Comment on above: Performed By: #### Cahnel ERICKSON CMP, 1988-02 #### [facility] ([id number]) [address] [place] [address] 50084 #### 84426-8 #### [facility] ([id number]) [address] [facility] [place] [address] AST [Catalytic activity/Vol] 14 U/L Normal 0-41 [facility] Comment on above: Performed By: #### Chanel ERICKSON CMP, 1988-02 #### [facility] ([id number]) [address] [place] [address] 33740 #### 72650-1 #### [facility] ([id number]) [address] [facility], [address] [place] [address] Bilirubin [Mass/Vol] 0.6 mg/dL Normal 0.3-1.2 [facility] Comment on above: Performed By: #### Chanel ERICKSON CMP, 1988-02 #### [facility] ([id number]) [address] [place] [address] 89890 #### 71713-5 #### [facility] ([id number]) [address], [address] [place] [address] Calcium [Mass/Vol] 8.5 mg/dL Normal 8.5-10.5 [facility] Comment on above: Performed By: #### Chanel ERICKSON CMP, 1988-02 #### [facility] ([id number]) [address] [place] [address] 59578 #### 65400-5 #### [facility] ([id number]) [address], [address] [place] [address] Chloride [Moles/Vol] 99 mmol/L Normal 98-109 [facility] Comment on above: Performed By: #### C SEAN ERICKSON, 1988-02 #### [facility] ([id number]) [address] [place] [address] 04094 #### 95660-7 #### [facility] ([id number]) [address], [address] [place] [address] CO2 [Moles/Vol] 28 mmol/L Normal 22-32 [facility] Comment on above: Performed By: #### Chanel ERICKSON CMP, 1988-02 #### [facility] ([id number]) [address] [place] [address] 00583 #### 01409-0 #### [facility] ([id number]) [address], [address] [place] [address] Creatinine [Mass/Vol] 0.75 mg/dL Normal 0.40-1.00 [facility] Comment on above: Result Comment: METH OD TRACEABLE TO IDMS STANDARD Performed By: #### Chanel ERICKSON CMP, 1988-02 #### [facility] ([id number]) [address] [place] [address] 78640 #### 86181-7 #### [facility] ([id number]) [address], [address] [place] [address] GFR/1.73 sq M.predicted among non-blacks MDRD (S/P/Bld) [Vol rate/Area] 85 mL/min/{1.73_m2} Normal >59 [facility] Comment on above: Result Comment: Reported eGFR is based on the CKD-EPI 2020 equation that does not use a race coefficient. Performed By: #### C SEAN ERICKSON, 1988-02 #### [facility] ([id number]) [address] [place] [address] 61278 #### 77481-0 #### [facility] ([id number]) [address], [address] [place] [address] Glucose [Mass/Vol] 122 mg/dL High 65-99 [facility] Comment on above: Performed By: #### Chanel ERICKSON [facility], 1988-02 #### [facility] ([id number]) [address] [place] [address] 68520 #### 34169-7 #### [facility] ([id number]) [address], [address] [place] [address] Potassium [Moles/Vol] 3.5 mmol/L Normal 3.5-5.0 [facility] Comment on above: Performed By: #### Chanel ERICKSON [facility], 1988-02 #### [facility] ([id number]) [address] [place] [address] 95590 #### 06518-7 #### [facility] ([id number]) [address], [address] [place] [address] Protein [Mass/Vol] 7.3 g/dL Normal 6.0-8.0 [facility] Comment on above: Performed By: #### Chanel ERICKSON [facility], 1988-02 #### [facility] ([id number]) [address] [place] [address] 21949 #### 29732-3 #### [facility] ([id number]) [address], [address] [place] [address] Sodium [Moles/Vol] 136 mmol/L Normal 134-146 [facility] Comment on above: Performed By: #### Chanel ERICKSON CMP, 1988-02 #### [facility] ([id number]) [address] [place] [address] 58468 #### 86202-4 #### [facility] ([id number]) [address], [address] [place] [address] Urea nitrogen [Mass/Vol] 15 mg/dL Normal 5-27 [facility] Comment on above: Performed By: #### Chanel ERICKSON CMP, 1988-02 #### [facility] ([id number]) [address] [place] [address] 00388 #### 07310-1 #### [facility] ([id number]) [address] [facility] [place] [address] Glucose Glucometer (BldC) [M ass/Vol]on 12-23-2023 Glucose [Mass/Vol] 158 mg/dL High 65-99 [facility] Glucose [Mass/Vol] 141 mg/dL High 65-99 [facility] HGB A1C (GLYCO-HGB)on 2023 Glucose [Mass/Vol] 140 mg/dL Normal [facility] Comment on above: Performed By: #### Chanel ERICKSON CMP, 1988-02 #### [facility] ([id number]) [address] [place] [address] 19045 #### 16103-8 #### [facility] ([id number]) [address], [address] [place] [address] HbA1c (Bld) [Mass fraction] 6.5 % High 4.4-5.6 [facility] Comment on above: Result Comment: NOTE ADA Guidelines Result HgbA1c Normal : less than 5.7 % Prediabetes : 5.7 % to 6.4 % Diabetes : > 6.4 % Use with caution in patients with abnormal hemoglobin variants as the half-life of red blood cells and in vivo glycation rates are affected. Performed By: #### C SEAN ERICKSON, 1988-02 #### [facility] ([id number]) [address] [place] [address] 09717 #### 93752-1 #### [facility] ([id number]) [address], [address] [place] [address] MAGNESIUMon 12-23-2023 Magnesium [Mass/Vol] 2.0 mg/dL Normal 1.8-2.6 [facility] Comment on above: Performed By: #### C DRE [facility], 1988-02 #### [facility] ([id number]) [address] [place] [address] 47605 #### 03770-2 #### [facility] ([id number]) [address], [address] [place] [address] POTASSIUMon 12-23-2023 Potassium [Moles/Vol] 4.4 mmol/L Normal 3.5-5.0 [facility] Comment on above: Performed By: #### Chanel ERICKSON [facility], 1988-02 #### [facility] ([id number]) [address] [place] [address] 32153 #### 95810-2 #### [facility] ([id number]) [address], [address] [place] [address] PROTIME AND INRon 12-23-2023 INR Coag (PPP) [Relative time] 2.7 {INR} High 0.8-1.1 [facility] Comment on above: Performed By: #### C DRE, PINR, SEAN, 49036-2 ####[facility] ([id number])[address] [place] [address] 56352 PT Coag (PPP) [Time] 29.9 s High 9.8-13.2 [facility] Comment on above: Result Comment: NEW REFERENCE RANGE Performed By: #### Chanel ERICKSON, PINR, CMP, 30608-5 ####[facility] ([id number])[address] [place] [address] 70885 CBC AND AUTO DIFFon 12-22-19 24 ABSOLUTE BASOPHIL 0.2 X10E9/L Normal 0.0-0.2 [facility] Comment on above: Performed By: #### P INR, CMP, , CBCA ####[facility] ([id number])[address] [place] [address] 46817 ABSOLUTE NEUTROPHIL 10.5 X10E9/L High 1.5-6.6 [facility] Comment on above: Performed By: #### P INR, CMP, , CBCA ####[facility] ([id number])[address] [place] [address] 93683 Basophils/100 WBC (Bld) 1.0 % Normal [facility] Comment on above: Performed By: #### P INR, CMP, , CBCA ####[facility] ([id number])[address] [place] [address] 57029 Eosinophils (Bld) [#/Vol] 1.1 10*3/uL High 0.0-0.4 [facility] Comment on above: Performed By: #### P INR, CMP, , CBCA ####[facility] ([id number])[address] [place] [address] 88223 Eosinophils/100 WBC (Bld) 6.9 % Normal [facility] Comment on above: Performed By: #### P INR, CMP, , CBCA ####[facility] ([id number])[address] [place] [address] 41038 Erythrocyte distribution width (RBC) [Ratio] 13.7 % Normal 11.5-15.0 [facility] Comment on above: Performed By: #### P INR, CMP, , CBCA ####[facility] ([id number])[address] [place] [address] 03754 Hematocrit (Bld) [Volume fraction] 34.0 % Low 35-47 [facility] Comment on above: Performed By: #### P INR, CMP, , CBCA ####[facility] ([id number])[address] [place] [address] 04582 Hemoglobin (Bld) [Mass/Vol] 11.4 g/dL Low 11.7-15.5 [facility] Comment on above: Performed By: #### P INR, CMP, , CBCA ####[facility] ([id number])[address] [place] [address] 31069 Lymphocytes (Bld) [#/Vol] 3.5 10*3/uL Normal 1.0-3.5 [facility] Comment on above: Performed By: #### P INR, CMP, , CBCA ####[facility] ([id number])[address] [place] [address] 95283 Lymphocytes/100 WBC (Bld) 21.4 % Normal [facility] Comment on above: Performed By: #### P INR, CMP, , CBCA ####[facility] ([id number])[address] [place] [address] 52933 MCH (RBC) [Entitic mass] 29.1 pg Normal 27-34 The [facility] Comment on above: Performed By: #### P INR, CMP, , CBCA ####[facility] ([id number])[address] [place] [address] 23270 MCHC (RBC) [Mass/Vol] 33.6 g/dL Normal 32-36 [facility] Comment on above: Performed By: #### P INR, CMP, , CBCA ####[facility] ([id number])[address] [place] [address] 88177 MCV (RBC) [Entitic vol] 87 fL Normal 80-100 [facility] Comment on above: Performed By: #### P INR, CMP, , CBCA ####[facility] ([id number])[address] [place] [address] 26151 Monocytes (Bld) [#/Vol] 0.9 10*3/uL Normal 0-0.9 [facility] Comment on above: Performed By: #### P INR, CMP, , CBCA ####[facility] ([id number])[address] [place] [address] 34188 Monocytes/100 WBC (Bld) 5.8 % Normal [facility] Comment on above: Performed By: #### P INR, CMP, , CBCA ####[facility] ([id number])[address] [place] [address] 12479 Neutrophils/100 WBC (Bld) 64.9 % Normal [facility] Comment on above: Performed By: #### P INR, CMP, , CBCA ####[facility] ([id number])[address] [place] [address] 00931 Platelet mean volume (Bld) [Entitic vol] 8.8 fL Normal 7-12 [facility] Comment on above: Performed By: #### P INR, CMP, , CBCA ####[facility] ([id number])[address] [place] [address] 17625 Platelets (Bld) [#/Vol] 258 10*3/uL Normal 150-450 [facility] Comment on above: Performed By: #### P INR, CMP, , CBCA ####[facility] ([id number])[address] [place] [address] [place] [address] RBC COUNT 3.92 X10E12/L Normal 3.80-5.20 [facility] Comment on above: Performed By: #### P INR, CMP, , CBCA ####[facility] ([id number])[address] [place] [address] 22414 WBC (Bld) [#/Vol] 16.2 10*3/uL High 4.0-11.0 [facility] Comment on above: Performed By: #### P INR, CMP, , CBCA ####[facility] ([id number])[address] [place] [address] 67210 COMPREHENSIVE METABOLIC PANE Tyrone 12-22-2023 Albumin [Mass/Vol] 3.4 g/dL Normal 3.2-5.3 [facility] Comment on above: Performed By: #### P INR, CMP, , CBCA ####[facility] ([id number])[address] [place] [address] 15070 ALP [Catalytic activity/Vol] 59 U/L Normal 39-130 [facility] Comment on above: Performed By: #### P INR, CMP, , CBCA ####[facility] ([id number])[address] [place] [address] 54234 ALT [Catalytic activity/Vol] 11 U/L Normal 0-31 [facility] Comment on above: Performed By: #### P INR, CMP, , CBCA ####[facility] ([id number])[address] [place] [address] 90512 Anion gap [Moles/Vol] 11 mmol/L Normal 5-15 [facility] Comment on above: Performed By: #### P INR, CMP, , CBCA ####[facility] ([id number])[address] [place] [address], [place] [address] AST [Catalytic activity/Vol] 14 U/L Normal 0-41 [facility] Comment on above: Performed By: #### P INR, CMP, , CBCA ####[facility] ([id number])[address] [place] [address] 63509 Bilirubin [Mass/Vol] 0.8 mg/dL Normal 0.3-1.2 [facility] Comment on above: Performed By: #### P INR, CMP, , CBCA ####[facility] ([id number])[address] [place] [address] 94192 Calcium [Mass/Vol] 8.5 mg/dL Normal 8.5-10.5 [facility] Comment on above: Performed By: #### P INR, CMP, , CBCA ####[facility] ([id number])[address] [place] [address] 78212 Chloride [Moles/Vol] 98 mmol/L Normal 98-109 [facility] Comment on above: Performed By: #### P INR, CMP, , CBCA ####[facility] ([id number])[address] [place] [address] 48222 CO2 [Moles/Vol] 26 mmol/L Normal 22-32 [facility] Comment on above: Performed By: #### P INR, CMP, , CBCA ####[facility] ([id number])[address] [place] [address] 44315 Creatinine [Mass/Vol] 0.78 mg/dL Normal 0.40-1.00 [facility] Comment on above: Result Comment: METH OD TRACEABLE TO IDMS STANDARD Performed By: #### P INR, CMP, , CBCA ####[facility] ([id number])[address] [place] [address] 02427 GFR/1.73 sq M.predicted among non-blacks MDRD (S/P/Bld) [Vol rate/Area] 81 mL/min/{1.73_m2} Normal >59 [facility] Comment on above: Result Comment: Reported eGFR is based on the CKD-EPI 2020 equation that does not use a race coefficient. Performed By: #### P INR, CMP, , CBCA ####[facility] ([id number])[address] [place] [address] 37092 Glucose [Mass/Vol] 121 mg/dL High 65-99 [facility] Comment on above: Performed By: #### P INR, CMP, , CBCA ####[facility] ([id number])[address] [place] [address] 90187 Potassium [Moles/Vol] 3.5 mmol/L Normal 3.5-5.0 [facility] Comment on above: Performed By: #### P INR, CMP, , CBCA ####[facility] ([id number])[address] [place] [address] 75904 Protein [Mass/Vol] 7.2 g/dL Normal 6.0-8.0 [facility] Comment on above: Performed By: #### P INR, CMP, , CBCA ####[facility] ([id number])[address] [place] [address] 77067 Sodium [Moles/Vol] 135 mmol/L Normal 134-146 [facility] Comment on above: Performed By: #### P INR, CMP, , CBCA ####[facility] ([id number])[address] [place] [address] 38448 Urea nitrogen [Mass/Vol] 15 mg/dL Normal 5-27 [facility] Comment on above: Performed By: #### P INR, CMP, , CBCA ####[facility] ([id number])[address] [place] [address] 07576 Glucose Glucometer (BldC) [M ass/Vol]on 12-22-2023 Glucose [Mass/Vol] 147 mg/dL High 65-99 [facility] Glucose [Mass/Vol] 136 mg/dL High 65-99 [facility] Glucose [Mass/Vol] 120 mg/dL High 65-99 [facility] MAGNESIUMon 12-22-2023 Magnesium [Mass/Vol] 2.0 mg/dL Normal 1.8-2.6 [facility] Comment on above: Performed By: #### P INR, CMP, , CBCA ####[facility] ([id number])[address] [place] [address] 63342 PROTIME AND INRon 12-22-2023 INR Coag (PPP) [Relative time] 2.6 {INR} High 0.8-1.1 [facility] Comment on above: Performed By: #### P INR, [facility], , CBCA ####[facility] ([id number])[address] [place] [address] 54503 PT Coag (PPP) [Time] 29.0 s High 9.8-13.2 [facility] Comment on above: Result Comment: NEW REFERENCE RANGE Performed By: #### P INR, CMP, , CBCA ####[facility] ([id number])[address] [place] [address] 17674 Vancomycin trough [Mass/Vol] on 12-22-2023 VANCOMYCIN TROUGH 15.2 ug/mL Normal 5.0-20.0 [facility] Comment on above: Performed By: #### 4 092-3 ####[facility] ([id number])[address] [place] [address] 07258 CBC AND AUTO DIFFon 12-21-19 24 ABSOLUTE BASOPHIL 0.1 X10E9/L Normal 0.0-0.2 [facility] Comment on above: Performed By: #### C SEAN ERICKSON, #### [facility] ([id number]) [address] [place] [address] 50034 ABSOLUTE NEUTROPHIL 11.5 X10E9/L High 1.5-6.6 [facility] Comment on above: Performed By: #### C SEAN ERICKSON, #### [facility] ([id number]) [address] [place] [address] 68902 Basophils/100 WBC (Bld) 0.8 % Normal [facility] Comment on above: Performed By: #### C SEAN ERICKSON, 75856-3 #### [facility] ([id number]) [address] [place] [address] 10370 Eosinophils (Bld) [#/Vol] 0.3 10*3/uL Normal 0.0-0.4 [facility] Comment on above: Performed By: #### C SEAN ERICKSON, #### [facility] ([id number]) [address] [place] [address] 50339 Eosinophils/100 WBC (Bld) 2.2 % Normal [facility] Comment on above: Performed By: #### C SEAN ERICKSON, #### [facility] ([id number]) [address] [place] [address] 77085 Erythrocyte distribution width (RBC) [Ratio] 14.0 % Normal 11.5-15.0 [facility] Comment on above: Performed By: #### C SEAN ERICKSON, #### [facility] ([id number]) [address] [place] [address] 97130 Hematocrit (Bld) [Volume fraction] 34.8 % Low 35-47 [facility] Comment on above: Performed By: #### C BCA, CMP, #### [facility] ([id number]) [address] [place] [address] 20335 Hemoglobin (Bld) [Mass/Vol] 11.4 g/dL Low 11.7-15.5 [facility] Comment on above: Performed By: #### C DRE, CMP, #### [facility] ([id number]) [address] [place] [address] 55211 Lymphocytes (Bld) [#/Vol] 2.0 10*3/uL Normal 1.0-3.5 [facility] Comment on above: Performed By: #### Chanel ERICKSON, CMP, #### [facility] ([id number]) [address] [place] [address] 17332 Lymphocytes/100 WBC (Bld) 13.2 % Normal [facility] Comment on above: Performed By: #### Chanel ERICKSON, [facility], #### [facility] ([id number]) [address] [place] [address] 78613 MCH (RBC) [Entitic mass] 28.5 pg Normal 27-34 [facility] Comment on above: Performed By: #### C DRE, CMP, #### [facility] ([id number]) [address] [place] [address] 65772 MCHC (RBC) [Mass/Vol] 32.6 g/dL Normal 32-36 [facility] Comment on above: Performed By: #### C DRE, CMP, #### [facility] ([id number]) [address] [place] [address] 68314 MCV (RBC) [Entitic vol] 87 fL Normal 80-100 [facility] Comment on above: Performed By: #### C DRE, CMP, #### [facility] ([id number]) [address] [place] [address] 29996 Monocytes (Bld) [#/Vol] 1.3 10*3/uL High 0-0.9 [facility] Comment on above: Performed By: #### Chanel ERICKSON CMP, 29623-6 #### [facility] ([id number]) [address] [place] [address] 55744 Monocytes/100 WBC (Bld) 8.7 % Normal [facility] Comment on above: Performed By: #### Chanel ERICKSON CMP, 18303-2 #### [facility] ([id number]) [address] [place] [address] 08050 Neutrophils/100 WBC (Bld) 75.1 % Normal [facility] Comment on above: Performed By: #### Chanel ERICKSON CMP, 42813-3 #### [facility] ([id number]) [address] [place] [address] 70275 Platelet mean volume (Bld) [Entitic vol] 8.8 fL Normal 7-12 [facility] Comment on above: Performed By: #### Chanel ERICKSON [facility], 13343-1 #### [facility] ([id number]) [address] [place] [address] 44918 Platelets (Bld) [#/Vol] 257 10*3/uL Normal 150-450 [facility] Comment on above: Performed By: #### Chanel ERICKSON CMP, 09093-8 #### [facility] ([id number]) [address] [place] [address] 35171 RBC COUNT 3.98 X10E12/L Normal 3.80-5.20 [facility] Comment on above: Performed By: #### Chanel ERICKSON CMP, 31198-2 #### [facility] ([id number]) [address] [place] [address] 43984 WBC (Bld) [#/Vol] 15.3 10*3/uL High 4.0-11.0 [facility] Comment on above: Performed By: #### C BCA, CMP, #### [facility] ([id number]) [address] [place] [address] 43232 COMPREHENSIVE METABOLIC PANE Tyrone 12-21-2023 Albumin [Mass/Vol] 3.3 g/dL Normal 3.2-5.3 [facility] Comment on above: Performed By: #### C BCA, CMP, ####[facility] ([id number])[address] [place] [address] 41032 ALP [Catalytic activity/Vol] 59 U/L Normal 39-130 [facility] Comment on above: Performed By: #### C BCA, CMP, ####[facility] ([id number])[address] [place] [address] 41208 ALT [Catalytic activity/Vol] 13 U/L Normal 0-31 [facility] Comment on above: Performed By: #### C BCA, [facility], ####[facility] ([id number])[address] [place] [address] 99434 Anion gap [Moles/Vol] 11 mmol/L Normal 5-15 [facility] Comment on above: Performed By: #### C BCA, CMP, 34745-8 ####[facility] ([id number])[address] [place] [address] 57179 AST [Catalytic activity/Vol] 11 U/L Normal 0-41 [facility] Comment on above: Performed By: #### C BCA, CMP, 24877-1 ####[facility] ([id number])[address] [place] [address] 05751 Bilirubin [Mass/Vol] 1.0 mg/dL Normal 0.3-1.2 [facility] Comment on above: Performed By: #### C BCA, CMP, 67798-5 ####[facility] ([id number])[address] [place] [address] 23323 Calcium [Mass/Vol] 8.5 mg/dL Normal 8.5-10.5 [facility] Comment on above: Performed By: #### C SEAN ERICKSON, ####[facility] ([id number])[address] [place] [address] [place] [address] Chloride [Moles/Vol] 101 mmol/L Normal 98-109 [facility] Comment on above: Performed By: #### C SEAN ERICKSON, ####[facility] ([id number])[address] [place] [address] 66731 CO2 [Moles/Vol] 25 mmol/L Normal 22-32 [facility] Comment on above: Performed By: #### C SEAN ERICKSON, ####[facility] ([id number])[address] [place] [address] 87124 Creatinine [Mass/Vol] 0.66 mg/dL Normal 0.40-1.00 [facility] Comment on above: Result Comment: METH OD TRACEABLE TO IDMS STANDARD Performed By: #### C SEAN ERICKSON, 51592-9 ####[facility] ([id number])[address] [place] [address] 70566 eGFR (CKD-EPI) NON-RACE DEPENDENT >90 Normal >59 [facility] Comment on above: Result Comment: Reported eGFR is based on the CKD-EPI 2020 equation that does not use a race coefficient. Performed By: #### C SEAN ERICKSON, ####[facility] ([id number])[address] [place] [address] 37228 Glucose [Mass/Vol] 132 mg/dL High 65-99 [facility] Comment on above: Performed By: #### C SEAN ERICKSON, ####[facility] ([id number])[address] [place] [address] 89899 Potassium [Moles/Vol] 3.5 mmol/L Normal 3.5-5.0 [facility] Comment on above: Performed By: #### Chanel ERICKSON CMP, ####[facility] ([id number])[address] [place] [address] 77375 Protein [Mass/Vol] 7.0 g/dL Normal 6.0-8.0 [facility] Comment on above: Performed By: #### Chanel ERICKSON CMP, ####[facility] ([id number])[address] [place] [address] 92102 Sodium [Moles/Vol] 137 mmol/L Normal 134-146 [facility] Comment on above: Performed By: #### Chanel ERICKSON CMP, ####[facility] ([id number])[address] [place] [address] [place] [address] Urea nitrogen [Mass/Vol] 15 mg/dL Normal 5-27 [facility] Comment on above: Performed By: #### Chanel ERICKSON CMP, 98831-7 ####[facility] ([id number])[address] [place] [address] 68816 Glucose Glucometer (dC) [M ass/Vol]on 12-21-2023 Glucose [Mass/Vol] 130 mg/dL High 65-99 [facility] Glucose [Mass/Vol] 153 mg/dL High 65-99 [facility] Glucose [Mass/Vol] 206 mg/dL High 65-99 [facility] MAGNESIUMon 12-21-2023 Magnesium [Mass/Vol] 2.2 mg/dL Normal 1.8-2.6 [facility] Comment on above: Performed By: #### Chanel ERICKSON CMP, ####[facility] ([id number])[address] [place] [address] 67538 MR FOOT LT W WO CONTon 12-20 [...] Garcia MD on 12/21/2023 1:06 PM Normal [facility] POTASSIUMon 12-21-2023 Potassium [Moles/Vol] 3.8 mmol/L Normal 3.5-5.0 [facility] Comment on above: Performed By: #### 2 823-3 ####[facility] ([id number])[address] [place] [address] 84318 PROTIME AND INRon 12-21-2023 INR Coag (PPP) [Relative time] 2.4 {INR} High 0.8-1.1 [facility] Comment on above: Performed By: #### P INR ####[facility] ([id number])[address] [place] [address] 24263 PT Coag (PPP) [Time] 27.0 s High 9.8-13.2 [facility] Comment on above: Result Comment: NEW REFERENCE RANGE Performed By: #### P INR ####[facility] ([id number])[address] [place] [address] 51455 BLOOD CULTUREon 12-20-2023 Bacteria identified Aer cx Nom (Bld) SPECIMEN NOTES RSURFACE VEIN CULTURE RESULTS NO GROWTH 5 DAYS Normal [facility] Comment on above: Performed By: #### 1 7928-3 ####[facility] ([id number])[address] [place] [address] 50348 Bacteria identified Aer cx Nom (Bld) SPECIMEN NOTES SUBOPTIMAL VOLUME OF BLOOD COLLECTED, RESULTS MAY BE AFFECTED. CULTURE RESULTS NO GROWTH 5 DAYS Normal [facility] Comment on above: Performed By: #### 1 7928-3 ####[facility] ([id number])[address] [address] CBC AND AUTO DIFFon 12-20-19 ABSOLUTE BASOPHIL 0.1 X10E9/L Normal 0.0-0.2 [facility] Comment on above: Performed By: #### Chanel EIRCKSON CMP, 1986-02 #### [facility] ([id number]) [address] [place] [address] 73008 #### 59520-2 #### [facility] ([id number]) [address], [address] [place] [address] ABSOLUTE NEUTROPHIL 12.0 X10E9/L High 1.5-6.6 [facility] Comment on above: Performed By: #### Chanel ERICKSON CMP, 1986-02 #### [facility] ([id number]) [address] [place] [address] 89396 #### 64193-3 #### [facility] ([id number]) [address], [address] [place] [address] Basophils/100 WBC (Bld) 0.5 % Normal [facility] Comment on above: Performed By: #### Chanel ERICKSON CMP, 1986-02 #### [facility] ([id number]) [address] [place] [address] 07421 #### 87573-2 #### [facility] ([id number]) [address], [address] [place] [address] Eosinophils (Bld) [#/Vol] 0.3 10*3/uL Normal 0.0-0.4 [facility] Comment on above: Performed By: #### Chanel ERICKSON CMP, 1986-02 #### [facility] ([id number]) [address] [place] [address] 72481 #### 68784-9 #### [facility] ([id number]) [address] [facility], [address] [place] [address] 59490 Eosinophils/100 WBC (Bld) 2.0 % Normal [facility] Comment on above: Performed By: #### Chanel ERICKSON CMP, 1986-02 #### [facility] ([id number]) [address] [place] [address] 51077 #### 08201-1 #### [facility] ([id number]) [address] [facility] [place] [address] Erythrocyte distribution width (RBC) [Ratio] 14.0 % Normal 11.5-15.0 [facility] Comment on above: Performed By: #### Chanel ERICKSON CMP, 1986-02 #### [facility] ([id number]) [address] [place] [address] 76272 #### 02923-1 #### [facility] ([id number]) [address] [facility] [address] [place] [address] Hematocrit (Bld) [Volume fraction] 36.1 % Normal 35-47 [facility] Comment on above: Performed By: #### Chanel ERICKSON CMP, 1986-02 #### [facility] ([id number]) [address] [place] [address] 11855 #### 70532-7 #### [facility] ([id number]) [address] [facility], [address] [place] [address] Hemoglobin (Bld) [Mass/Vol] 12.1 g/dL Normal 11.7-15.5 [facility] Comment on above: Performed By: #### Chanel ERICKSON CMP, 1988-02 #### [facility] ([id number]) [address] [place] [address] 19471 #### 99695-1 #### [facility] ([id number]) [address] [facility], [address] [place] [address] Lymphocytes (Bld) [#/Vol] 2.4 10*3/uL Normal 1.0-3.5 [facility] Comment on above: Performed By: #### Chanel ERICKSON [facility], 1988-02 #### [facility] ([id number]) [address] [place] [id number] #### 39192-8 #### [facility] ([id number]) [address] [facility], [address] [place] [address] Lymphocytes/100 WBC (Bld) 14.9 % Normal [facility] Comment on above: Performed By: #### Chanel ERICKSON CMP, 1986-02 #### [facility] ([id number]) [address] [place] [address] #### [id number] #### [facility] ([id number]) [address] [facility], [address] [place] [address] MCH (RBC) [Entitic mass] 28.9 pg Normal 27-34 [facility] Comment on above: Performed By: #### Chanel ERICKSON CMP, 1986-02 #### [facility] ([id number]) [address] [place] [address] #### [id number] #### [facility] ([id number]) [address], [address] [place] [address] MCHC (RBC) [Mass/Vol] 33.5 g/dL Normal 32-36 [facility] Comment on above: Performed By: #### Chanel ERICKSON CMP, 1986-02 #### [facility] ([id number]) [address] [place] [address] #### [id number] #### [facility] ([id number]) [address], [address] [place] [address] MCV (RBC) [Entitic vol] 86 fL Normal 80-100 The [facility] Comment on above: Performed By: #### Chanel ERICKSON CMP, 1988-02 #### [facility] ([id number]) [address] [place] [address] 00774 #### [id number] #### [facility] ([id number]) [address] [place] [address] Monocytes (Bld) [#/Vol] 1.5 10*3/uL High 0-0.9 [facility] Comment on above: Performed By: #### Chanel ERICKSON CMP, 1988-02 #### [facility] ([id number]) [address] [place] [address] 89144 #### [id number] #### [facility] ([id number]) [address] [place] [address] Monocytes/100 WBC (Bld) 9.3 % Normal [facility] Comment on above: Performed By: #### Chanel ERICKSON CMP, 1988-02 #### [facility] ([id number]) [address] [place] [address] 88865 #### 42188-9 #### [facility] ([id number]) [address], [address] [place] [address] Neutrophils/100 WBC (Bld) 73.3 % Normal [facility] Comment on above: Performed By: #### Chanel ERICKSON CMP, 1988-02 #### [facility] ([id number]) [address] [place] [address] 13486 #### 31162-7 #### [facility] ([id number]) [address] [place] [address] Platelet mean volume (Bld) [Entitic vol] 8.4 fL Normal 7-12 [facility] Comment on above: Performed By: #### Chanel ERICKSON CMP, 1988-02 #### [facility] ([id number]) [address] [place] [address] 85961 #### 53194-8 #### [facility] ([id number]) [address] [place] [address] Platelets (Bld) [#/Vol] 282 10*3/uL Normal 150-450 [facility] Comment on above: Performed By: #### Chanel ERICKSON CMP, 1988-02 #### [facility] ([id number]) [address] [place] [address] 80859 #### 61916-2 #### [facility] ([id number]) [address] [place] [address] RBC COUNT 4.18 X10E12/L Normal 3.80-5.20 [facility] Comment on above: Performed By: #### Chanel ERICKSON CMP, 1988-02 #### [facility] ([id number]) [address] [place] [address] 53445 #### 66681-6 #### [facility] ([id number]) [address] [place] [address] WBC (Bld) [#/Vol] 16.4 10*3/uL High 4.0-11.0 [facility] Comment on above: Performed By: #### Chanel ERICKSON CMP, 1988-02 #### [facility] ([id number]) [address] [place] [address] 52013 #### 44909-7 #### [facility] ([id number]) [address] [place] [address] COMPREHENSIVE METABOLIC PANE Tyrone 12-20-2023 Albumin [Mass/Vol] 3.7 g/dL Normal 3.2-5.3 [facility] Comment on above: Performed By: #### Chanel ERICKSON CMP, 1988-02 #### [facility] ([id number]) [address] [place] [address] 36851 #### 24745-4 #### [facility] ([id number]) [address] [facility] [place] [address] ALP [Catalytic activity/Vol] 74 U/L Normal 39-130 [facility] Comment on above: Performed By: #### Chanel ERICKSON CMP, 1988-02 #### [facility] ([id number]) [address] [place] [address] 80129 #### 95302-1 #### [facility] ([id number]) [address] [facility] [facility] [place] [address] ALT [Catalytic activity/Vol] 15 U/L Normal 0-31 [facility] Comment on above: Performed By: #### Chanel ERICKSON CMP, 1988-02 #### [facility] ([id number]) [address] [place] [address] 10907 #### 60847-2 #### [facility] ([id number]) [address] [facility] [facility] [place] [address] Anion gap [Moles/Vol] 6 mmol/L Normal 5-15 [facility] Comment on above: Performed By: #### Chanel ERICKSON CMP, 1988-02 #### [facility] ([id number]) [address] [place] [address] 48933 #### 43442-0 #### [facility] ([id number]) [address] [place] [address] AST [Catalytic activity/Vol] 17 U/L Normal 0-41 [facility] Comment on above: Performed By: #### Chanel ERICKSON CMP, 1988-02 #### [facility] ([id number]) [address] [place] [address] 34054 #### 45138-6 #### [facility] ([id number]) [address] [place] [address] Bilirubin [Mass/Vol] 0.4 mg/dL Normal 0.3-1.2 [facility] Comment on above: Performed By: #### Chanel ERICKSON [facility], 1988-02 #### [facility] ([id number]) [address] [place] [address] 31470 #### 67921-9 #### [facility] ([id number]) [address] [place] [address] Calcium [Mass/Vol] 8.3 mg/dL Low 8.5-10.5 [facility] Comment on above: Performed By: #### Chanel ERICKSON [facility], 1988-02 #### [facility] ([id number]) [address] [place] [address] 16613 #### 63555-5 #### [facility] ([id number]) [address] [place] [address] Chloride [Moles/Vol] 101 mmol/L Normal 98-109 [facility] Comment on above: Performed By: #### C DRE [facility], 1988-02 #### [facility] ([id number]) [address] [place] [address] 84564 #### 57793-4 #### [facility] ([id number]) [address] [place] [address] CO2 [Moles/Vol] 26 mmol/L Normal 22-32 [facility] Comment on above: Performed By: #### C DRE [facility], 1988-02 #### [facility] ([id number]) [address] [place] [address] 46192 #### 28286-6 #### [facility] ([id number]) [address] [place] [address] Creatinine [Mass/Vol] 0.69 mg/dL Normal 0.40-1.00 [facility] Comment on above: Result Comment: METH OD TRACEABLE TO IDMS STANDARD Performed By: #### C DRE [facility], 1988-02 #### [facility] ([id number]) [address] [place] [address] 04259 #### 28012-9 #### [facility] ([id number]) [address] [place] [address] eGFR (CKD-EPI) NON-RACE DEPENDENT >90 Normal >59 [facility] Comment on above: Result Comment: Reported eGFR is based on the CKD-EPI 1 equation that does not use a race coefficient. Performed By: #### C DRE [facility], 1988-02 #### [facility] ([id number]) [address] [place] [address] 50224 #### 78808-9 #### [facility] ([id number]) [address] [place] [address] Glucose [Mass/Vol] 132 mg/dL High 65-99 [facility] Comment on above: Performed By: #### C BCA, [facility], 1988-02 #### [facility] ([id number]) [address] [place] [address] 94902 #### 60503-3 #### [facility] ([id number]) [address] [place] [address] Potassium [Moles/Vol] 3.8 mmol/L Normal 3.5-5.0 [facility] Comment on above: Performed By: #### C BCA, CMP, 1988-02 #### [facility] ([id number]) [address] [place] [address] 95735 #### 20749-1 #### [facility] ([id number]) [address] [place] [address] Protein [Mass/Vol] 7.9 g/dL Normal 6.0-8.0 [facility] Comment on above: Performed By: #### C BCA, [facility], 1988-02 #### [facility] ([id number]) [address] [place] [address] 25579 #### 18327-5 #### [facility] ([id number]) [address] [place] [address] Sodium [Moles/Vol] 133 mmol/L Low 134-146 [facility] Comment on above: Performed By: #### C BCA, CMP, 1988-02 #### [facility] ([id number]) [address] [place] [address] 41593 #### 20271-0 #### [facility] ([id number]) [address] [place] [address] Urea nitrogen [Mass/Vol] 16 mg/dL Normal 5-27 [facility] Comment on above: Performed By: #### C BCA, CMP, 1988-02 #### [facility] ([id number]) [address] [place] [address] 47347 #### 62602-9 #### [facility] ([id number]) [address] [place] [address] CRP [Mass/Vol]on 12-20-2023 C REACTIVE PROTEIN 11.8 mg/dL High 0.000-0.744 [facility] Comment on above: Performed By: #### C DRE [facility], 1988-02 #### [facility] ([id number]) [address] [place] [address] 42236 #### 64108-9 #### [facility] ([id number]) [address] [place] [address] ESR Photometric method (Bld) [Velocity]on 12-20-2023 ESR, ERYTHROCYTE SEDIMENTATION RATE 60 mm/h High 0-30 [facility] Comment on above: Performed By: #### Chanel ERICKSON [facility], 1988-02 #### [facility] ([id number]) [address] [place] [address] 16870 #### 46103-6 #### [facility] ([id number]) [address] [place] [address] Glucose Glucometer (BldC) [M ass/Vol]on 12-20-2023 Glucose [Mass/Vol] 174 mg/dL High 65-99 [facility] URINALYSISon 12-20-2023 Bilirubin Ql (U) Negative Normal NEG [facility] Comment on above: Performed By: #### U A #### [facility] ([id number]) [address] [place] [address] 889[address] BLOOD/HGB Negative Normal NEG [facility] Comment on above: Performed By: #### U A #### [facility] ([id number]) [address] [place] [address], [place] [address] Color (U) YELLOW Normal YELLOW [facility] Comment on above: Performed By: #### U A #### [facility] ([id number]) [address] [place] [address], [place] [address] Glucose Ql (U) Negative Normal NEG [facility] Comment on above: Performed By: #### U A #### [facility] ([id number]) [address] [place] [address] [place] [address] Ketones Ql (U) Negative Normal NEG [facility] Comment on above: Performed By: #### U A #### [facility] ([id number]) [address] [place] [address] [place] [address] Leukocyte esterase Test strip Ql (U) Negative Normal NEG [facility] Comment on above: Performed By: #### U A #### [facility] ([id number]) [address] [place] [address], [place] [address] Nitrite Ql (U) Positive Abnormal NEG [facility] Comment on above: Performed By: #### U A #### [facility] ([id number]) [address] [place] [address], [place] [address] pH (U) 6.0 [pH] Normal 5.0-8.5 [facility] Comment on above: Performed By: #### U A #### [facility] ([id number]) [address] [place] [address], [place] [address] Protein Ql (U) Negative Normal NEG [facility] Comment on above: Performed By: #### U A #### [facility] ([id number]) [address] [place] [address], [place] [address] R.B.CELLS 0 /hpf Normal 0-5 [facility] Comment on above: Performed By: #### U A #### [facility] ([id number]) [address] [place] [address]67[address] Specific gravity (U) [Rel density] 1.015 Normal 1.003-1.035 [facility] Comment on above: Performed By: #### U A #### [facility] ([id number]) [address] [place] [address] SQUAMOUS EPITHELIUM 0 to 3 Normal 0-5 [facility] Comment on above: Performed By: #### U A #### [facility] ([id number]) [address] [place] [address] TURBIDITY CLEAR Normal CLEAR [facility] Comment on above: Performed By: #### U A #### [facility] ([id number]) [address] [place] [address] 69297 Urobilinogen Qn (U) 0.2 {Mindy'U}/dL Normal <1.1 [facility] Comment on above: Performed By: #### U A #### [facility] ([id number]) [address] [place] [address] W.B.CELLS 0 to 1 Normal 0-5 [facility] Comment on above: Performed By: #### U A #### [facility] ([id number]) [address] [place] [address] XR FOOT LT MIN 3 VWSon XR [...] Bradshaw MD on 12/20/2023 6:37 PM Normal [facility] XR FOOT RT MIN 3 Son XR FOOT RT MIN 3 VWS XR [...] Mehul Bradshaw MD on 12/20/2023 5:56 PM [facility] XR KNEE RT 3 [facility] XR KNEE RT 3 VWS XR KNEE RT 3 VWS XR KNEE RT 3 VWS CLINICAL INFORMATION: Right knee pain. Fall. Pain. COMPARISON: None. IMPRESSION: * No evidence of acute fracture. 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 No large joint effusion. Osteopenia. Finalized by Andreas Araujo MD on 12/20/2023 5:05 PM [facility] 36on 11-16-2023 36 Please let her know her cholesterol levels look good. Continue pravastatin. Thanks Normal [facility] Telephoneon 11-16-2023 Telephone [id number] Maximo Gill 1950 F Date Provider Department Center 11/16/2023 EEBR PAGAN CHING Sanjeev Tavera Family History Problem Relation Age of Onset Heart attack Father Diabetes Father Hypertension Father Coronary artery disease Father Rheum arthritis Father Family Status - Relation Status Age at Father Normal [facility] 37on 11-01-2023 37 *Increase amlodipine to 10mg daily. You can take 2 tablets of your current 5mg prescription daily until this runs out then start new prescription of 1 - 10mg tablet daily. *Monitor your blood pressure daily 1-2 hours after medications *Have labs drawn *Follow-up with GI given dark stools Normal [facility] Office Visiton 11-01-2023 Follow-up visit [id number] Maximo Gill 1950 Provider Department Center 11/01/2023 EBER PAGAN Family History Problem Relation Age of Onset Heart attack Father Diabetes Father Hypertension Father Coronary artery disease Father Rheum arthritis Father Family Status - Relation Status Age at Father Level of Service:25986 [place] OFFICE/OUTPATIENT ESTABLISHED MOD MDM 30 MIN Reason for Visit and Comments: Atrial Fibrillation [80] Congestive Heart Failure [127] Normal [facility] Office Visiton 05-23-2023 Follow-up visit [id number] Maximo Gill 1950 Provider Department Center 05/23/2023 RAMAN CASTANEDA CHING Juanita [facility] Family History Problem Relation Age of Onset Heart attack Father Diabetes Father Hypertension Father Coronary artery disease Father Rheum arthritis Father Family Status - Relation Status Age at Father Level of Service:99844 [place] OFFICE/OUTPATIENT ESTABLISHED LOW MDM 20-29 MIN Normal [facility] CBC AUTO DIFFon 03-02-2023 BASO # 0.1 103/ul Normal 0.0-0.1 [facility] Comment on above: Performed By: #### C BC #### [facility] [address] [address] [address] Yandy Rodarte Basophils/100 WBC (Bld) 0.4 % Normal 0.2-2.0 [facility] Comment on above: Performed By: #### C BC #### [facility] [address] [place] [address] Dr. Yandy Rodarte EO # 0.5 103/ul Normal 0.0-0.7 [facility] Comment on above: Performed By: #### C BC #### [facility] [address] [place] [address] Dr. Yandy Rodarte Eosinophils/100 WBC (Bld) 4.1 % Normal 0.9-7.0 [facility] Comment on above: Performed By: #### C BC #### [facility] [address] [place] [address] Dr. Yandy Rodarte Erythrocyte distribution width (RBC) [Ratio] 14.0 % Normal 11.0-15.0 [facility] Comment on above: Performed By: #### C BC #### [facility] [address] [place] [address] Dr. Yandy Rodarte Hematocrit (Bld) [Volume fraction] 42.8 % Normal 36.0-48.0 [facility] Comment on above: Performed By: #### C BC #### [facility] [address] [place] [address] Dr. Yandy Rodarte Hemoglobin (Bld) [Mass/Vol] 13.6 g/dL Normal 12.0-16.0 [facility] Comment on above: Performed By: #### C BC #### [facility] [address] [place] [address] Dr. Yandy Rodarte IG # 0.04 10e3/ul Critically high 0.00-0.03 [facility] Comment on above: Performed By: #### C BC #### [facility] [address] [place] [address] Dr. Yandy Rodarte IG % 0.4 % Normal 0.0-0.5 [facility] Comment on above: Performed By: #### C BC #### [facility] [address] [place] [address] Dr. Yandy Rodarte LYMPH # 2.2 103/ul Normal 1.2-3.8 [facility] Comment on above: Performed By: #### C BC #### [facility] [address] [place] [address] Dr. Yandy Rodarte Lymphocytes/100 WBC (Bld) 20.0 % Critically low 20.5-60.0 [facility] Comment on above: Performed By: #### C BC #### [facility] [address] [place] [address] Dr. Yandy Rodarte MANUAL DIFF REQ NO Normal [facility] Comment on above: Performed By: #### C BC #### [facility] [address] [place] [address] Dr. Yandy Rodarte MCH (RBC) [Entitic mass] 28.2 pg Normal 26.7-34.0 [facility] Comment on above: Performed By: #### C BC #### [facility] [address] [place] [address] Dr. Yandy Rodarte MCHC (RBC) [Mass/Vol] 31.8 g/dL Normal 29.9-35.2 [facility] Comment on above: Performed By: #### C BC #### [facility] [address] [place] [address] Dr. Yandy Rodarte MCV (RBC) [Entitic vol] 88.8 fL Normal 81.0-99.0 [facility] Comment on above: Performed By: #### C BC #### [facility] [address] [place] [address] Dr. Yandy Rodarte MONO # 0.7 103/ul Normal 0.3-0.8 [facility] Comment on above: Performed By: #### C BC #### [facility] [address] [place] [address] Dr. Yandy Rodarte Monocytes/100 WBC (Bld) 6.3 % Normal 1.7-12.0 [facility] Comment on above: Performed By: #### C BC #### [facility] [address] [place] [address] Dr. Yandy Rodarte NEUT # 7.7 103/ul Critically high 1.4-6.5 [facility] Comment on above: Performed By: #### C BC #### [facility] [address] [place] [address] Dr. Yandy Rodarte Neutrophils/100 WBC (Bld) 68.8 % Normal 43.0-75.0 [facility] Comment on above: Performed By: #### C BC #### [facility] [address] [place] [address] Dr. Yandy Rodarte Platelet mean volume (Bld) [Entitic vol] 9.8 fL Normal 9.5-13.5 [facility] Comment on above: Performed By: #### C BC #### [facility] [address] [address] [address] Yandy Rodarte PLT 259 103/ul Normal 150-450 [facility] Comment on above: Performed By: #### C BC #### [facility] [address] [place] [address] Dr. Yandy Rodarte RBC 4.82 106/ul Normal 4.20-5.40 [facility] Comment on above: Performed By: #### C BC #### [facility] [address] [place] [address] Dr. Yandy Rodarte WBC 11.2 103/ul Critically high 4.0-11.0 [facility] Comment on above: Performed By: #### C BC #### [facility] [address] [place] [address] Dr. Yandy Rodarte ECHOCARDIO M/2D COMPLETEon 0 03-02-2023 ECHOCARDIO M/2D COMPLETE Patient: AFIA GLIL Exam Date: 03/02/2023 : 1950 Gender:F Ordering : MRS. JESSICA PRE[employer] Admission #: [id number] Family : Order #: [id number] CLICK HERE TO VIEW EXAM ECHOCARDIOGRAM REPORT [...] Left Atrium LA Volume Index (2D A2C): [id number] mm3 Left Atrium Systolic Dimension: 3.80 cm [...] Gomez M.D. on 03/02/2023 at 19:19 Normal [facility] LIPID PROFILEon 03-02-2023 CHOL-HDL RATIO NORM SEE BELOW Normal [facility] Comment on above: Result Comment: 3.3 - 4.4 LOW RISK 4.4 - 7.1 AVERAGE RISK 7.1 - 11.0 MODERATE RISK >11.0 HIGH RISK Performed By: #### L IPID, CMP #### [facility] [address] [address] [address] Yandy Rodarte Cholesterol [Mass/Vol] 203 mg/dL Critically high <=200 [facility] Comment on above: Performed By: #### L IPID, CMP #### [facility] [address] [address] [address] Yandy Rodarte Cholesterol in HDL [Mass/Vol] 35 mg/dL Critically low 40-60 [facility] Comment on above: Performed By: #### L IPID, CMP #### [facility] [address] [address] [address] Yandy Rodarte Cholesterol in LDL [Mass/Vol] 123.0 mg/dL Normal [facility] Comment on above: Performed By: #### L IPID, CMP #### [facility] [address] [address] [address] Yandy Rodarte Cholesterol.total/C holesterol in HDL [Mass ratio] 5.8 {ratio} Normal [facility] Comment on above: Performed By: #### L IPID, CMP #### [facility] [address] [address] [address] Yandy Rodarte HDL NORMAL > or = 60 mg/dl - LO W CARDIOVASCULAR RISK <40 mg/dl - HIGH CARDIOVASCULAR RISK Normal [facility] Comment on above: Performed By: #### L IPID, CMP #### [facility] [address] [address] [address] Yandy Rodarte LDL CALC NORMAL SEE BELOW Normal [facility] Comment on above: Result Comment: <100 mg/dl OPTIMAL 100 - 129 mg/dl NEAR OR ABOVE OPTIMAL 130 - 159 mg/dl BORDERLINE HIGH 160 - 189 mg/dl HIGH >190 mg/dl VERY HIGH Performed By: #### L IPID, CMP #### [facility] [address] [address] [address] Yandy Rodarte Triglyceride [Mass/Vol] 225 mg/dL Critically high <=150 [facility] Comment on above: Performed By: #### L IPID, CMP #### [facility] Laboratory [address] [address] [address] Yandy Rodarte VLDL CALC 45.0 mg/dL Normal [facility] Comment on above: Performed By: #### L IPID, CMP #### [facility] Laboratory [address] [address] [address] Yandy Rodarte PROF 14(COMP METB)on 023 Albumin [Mass/Vol] 3.5 g/dL Normal 3.4-5.0 [facility] Comment on above: Performed By: #### L IPID, CMP #### [facility] Laboratory [address] [place] [address] Dr. Yandy Rodarte Albumin/Globulin [Mass ratio] 0.8 {ratio} Normal [facility] Comment on above: Performed By: #### L IPID, CMP #### [facility] Laboratory [address] [place] [address] Dr. Yandy Rodarte ALP [Catalytic activity/Vol] 100 U/L Normal 46-116 [facility] Comment on above: Performed By: #### L IPID, CMP #### [facility] Laboratory [address] [address] [address] Yandy Rodarte ALT [Catalytic activity/Vol] 22 U/L Normal 14-59 [facility] Comment on above: Performed By: #### L IPID, CMP #### [facility] Laboratory [address] [address] [address] Yandy Rodarte Anion gap [Moles/Vol] 8.9 mmol/L Normal [facility] Comment on above: Performed By: #### L IPID, CMP #### [facility] Laboratory [address] [address] [address] Yandy Rodarte AST [Catalytic activity/Vol] 17 U/L Normal 15-37 [facility] Comment on above: Performed By: #### L IPID, CMP #### [facility] Laboratory [address] [address] [address] Yandy Rodarte Bilirubin [Mass/Vol] 0.4 mg/dL Normal 0.2-1.0 [facility] Comment on above: Performed By: #### L IPID, CMP #### [facility] Laboratory [address] [place] [address] Dr. Yandy Rodarte Calcium [Mass/Vol] 9.2 mg/dL Normal 8.5-10.1 [facility] Comment on above: Performed By: #### L IPID, CMP #### [facility] Laboratory [address] [address] [address] Yandy Rodarte Chloride [Moles/Vol] 104 mmol/L Normal 98-107 [facility] Comment on above: Performed By: #### L IPID, CMP #### [facility] Laboratory [address] [place] [address] Dr. Yandy Rodarte CO2 [Moles/Vol] 32.6 mmol/L Critically high 21.0-32.0 [facility] Comment on above: Performed By: #### L IPID, CMP #### [facility] Laboratory [address] [place] [address] Dr. Yandy Rodarte Creatinine [Mass/Vol] 0.81 mg/dL Normal 0.55-1.02 [facility] Comment on above: Performed By: #### L IPID, CMP #### [facility] Laboratory [address] [place] [address] Dr. Yandy Rodarte EGFR-AF SERBIAN >60 Normal >=60 [facility] Comment on above: Performed By: #### L IPID, CMP #### [facility] Laboratory [address] [place] [address] Dr. Yandy Rodarte EGFR-NON AF SERBIAN >60 Normal >=60 [facility] Comment on above: Performed By: #### L IPID, CMP #### [facility] Laboratory [address] [place] [address] Dr. Yandy Rodarte Globulin (S) [Mass/Vol] 4.6 g/dL Normal [facility] Comment on above: Performed By: #### L IPID, CMP #### [facility] Laboratory [address] [address] [address] Yandy Rodarte Glucose [Mass/Vol] 114 mg/dL Critically high 74-106 [facility] Comment on above: Performed By: #### L IPID, CMP #### [facility] Laboratory [address] [address] [address] Yandy Rodarte Potassium [Moles/Vol] 4.5 mmol/L Normal 3.5-5.1 [facility] Comment on above: Performed By: #### L IPID, CMP #### [facility] Laboratory [address] [address] [address] Yandy Rodarte Protein [Mass/Vol] 8.1 g/dL Normal 6.4-8.2 [facility] Comment on above: Performed By: #### L IPID, CMP #### [facility] Laboratory [address] [place] [address] Dr. Yandy Rodarte Sodium [Moles/Vol] 141 mmol/L Normal 136-145 [facility] Comment on above: Performed By: #### L IPID, CMP #### [facility] Laboratory [address] [address] [address] Yandy Rodarte Urea nitrogen [Mass/Vol] 18.0 mg/dL Normal 7.0-18.0 [facility] Comment on above: Performed By: #### L IPID, CMP #### [facility] Laboratory [address] [address] [address] Yandy Rodarte Urea nitrogen/Creatinine [Mass ratio] 22.2 mg/mg Normal [facility] Comment on above: Performed By: #### L IPID, CMP #### [facility] Laboratory [address] [place] [address] Dr. Yandy Rodarte Office Visiton 02-19-2023 Follow-up visit [id number] Maximo Gill 1950 F Date Provider Department Center 02/19/2023 [id number] CAMPA [facility] Family History Problem Relation Age of Onset Heart attack Father Diabetes Father Hypertension Father Coronary artery disease Father Rheum arthritis Father Family Status - Relation Status Age at Father Level of Service:35392 [place] OFFICE/OUTPATIENT ESTABLISHED MOD MDM 30-39 MIN Reason for Visit and Comments: Follow-up [050548] - 6 month follow up Normal [facility] MAMM SCREEN MARIELENA W CADon 0 12-27-2022 MG MAMM SCREEN MARIELENA W CAD Patient: AFIA GILL Exam Date: 12/27/2022 : 1950 Gender:F Ordering : DR YAHIR BROTHERS M.D. Admission #: [id number] Family : Order #: [id number] CLICK HERE TO VIEW EXAM RADIOLOGY REPORT [...] at age 37. LOCATION: [facility] BREAST COMPOSITION: Scattered areas fibroglandular density. FINDINGS: [...] 12/28/2022 at 09:38 Normal [facility] CT SINUSES WO CONon 05-18-[address] [...] by: YAYA ZULUAGA Date: 2022-05-18 08:38 Normal [facility] BASIC METABOLIC PANELon - Calcium [Mass/Vol] 9.6 mg/dL Normal 8.6-10.3 [facility] Comment on above: Order Comment: No: D o not add to previous draw Performed By: #### 5 [id number] #### [facility] [address] [place] [address], [facility] Chloride [Moles/Vol] 101 mmol/L Normal 98-107 [facility] Comment on above: Order Comment: No: D o not add to previous draw Performed By: #### 5 [id number] #### [facility] [address] [place] [address], [place] CO2 [Moles/Vol] 29 mmol/L Normal 21-31 [facility] Comment on above: Order Comment: No: D o not add to previous draw Performed By: #### 5 [id number] #### [facility] [address] [place] [address], [facility] Creatinine [Mass/Vol] 0.71 mg/dL Normal 0.60-1.20 [facility] Comment on above: Order Comment: No: D o not add to previous draw Performed By: #### 5 [id number] #### [facility] [address] [place] [address], [place] GFR/1.73 sq M predicted among blacks MDRD (S/P/Bld) [Vol rate/Area] mL/min/{1.73_m2} Normal >60 [facility] Comment on above: Order Comment: No: D o not add to previous draw Performed By: #### 5 [id number] #### [facility] [address] [place] [address], [place] GFR/1.73 sq M predicted among non-blacks MDRD (S/P/Bld) [Vol rate/Area] mL/min/{1.73_m2} Normal >60 [facility] Comment on above: Order Comment: No: D o not add to previous draw Performed By: #### 5 [id number] #### [facility] [address] [place] [address], [place] Glucose [Mass/Vol] 127 mg/dL High 70-[address] [facility] Comment on above: Order Comment: No: D o not add to previous draw Performed By: #### 5 [id number] #### [facility] [address] [place] [address], [place] Potassium [Moles/Vol] 4.3 mmol/L Normal 3.5-5.1 [facility] Comment on above: Order Comment: No: D o not add to previous draw Performed By: #### 5 [id number] #### [facility] [address] [place] [address], [place] Sodium [Moles/Vol] 137 mmol/L Normal 136-[address] [facility] Comment on above: Order Comment: No: D o not add to previous draw Performed By: #### 5 [id number] #### [facility] [address] [place] [address], [place] Urea nitrogen [Mass/Vol] 20 mg/dL Normal 7-25 [facility] Comment on above: Order Comment: No: D o not add to previous draw Performed By: #### 5 [id number] #### [facility] [address] [place] [address], [facility] CBC COMPLETE BLOOD COUNTon 0 02-02-2019 Erythrocyte distribution width (RBC) [Ratio] 14.6 % Normal 11.5-15.0 [facility] Comment on above: Order Comment: No: D o not add to previous draw Performed By: #### 5 [id number] #### [facility] [address] [place] [address], [facility] Hematocrit (Bld) [Volume fraction] 44.6 % Normal 36.0-45.0 [facility] Comment on above: Order Comment: No: D o not add to previous draw Performed By: #### 5 [id number] #### [facility] [address] Hemoglobin (Bld) [Mass/Vol] 14.1 g/dL Normal 12.0-15.0 [facility] Comment on above: Order Comment: No: D o not add to previous draw Performed By: #### 5 [id number] #### [facility] [address] [facility] [facility] [place] [address], [facility] MCH (RBC) [Entitic mass] 30.2 pg Normal 27.0-33.0 [facility] Comment on above: Order Comment: No: D o not add to previous draw Performed By: #### 5 [id number] #### [facility] [address] [facility] [place] [address], [facility] MCHC (RBC) [Mass/Vol] 31.6 g/dL Low 32.0-35.0 [facility] Comment on above: Order Comment: No: D o not add to previous draw Performed By: #### 5 [id number] #### [facility] [address] [place] [address], [facility] MCV (RBC) [Entitic vol] 95.5 fL Normal 82.0-98.0 [facility] Comment on above: Order Comment: No: D o not add to previous draw Performed By: #### 5 [id number] #### [facility] [address] [place] [address], [facility] Nucleated RBC/100 WBC (Bld) [Ratio] 0 % Normal 0-0 [facility] Comment on above: Order Comment: No: D o not add to previous draw Performed By: #### 5 [id number] #### [facility] [address] [place] [address], [facility] PLAT CNT 250 10*3/uL Normal 150-400 [facility] Comment on above: Order Comment: No: D o not add to previous draw Performed By: #### 5 [id number] #### [facility] [address] [place] [address], [facility] RBC (Bld) [#/Vol] 4.67 10*6/uL Normal 3.80-5.00 [facility] Comment on above: Order Comment: No: D o not add to previous draw Performed By: #### 5 [id number] #### [facility] [address] [place] [address], [facility] WBC (Bld) [#/Vol] 9.20 10*3/uL Normal 4.00-10.60 [facility] Comment on above: Order Comment: No: D o not add to previous draw Performed By: #### 5 [id number] #### [facility] [address] POC GLUCOSE LABon 02-02-2019 Glucose [Mass/Vol] 146 mg/dL High 70-[address] [facility] Comment on above: Performed By: #### 5 [id number] #### [facility] [address] [place] [address], [facility] Glucose [Mass/Vol] 115 mg/dL High 70-[address] [facility] Comment on above: Performed By: #### 5 [id number] #### [facility] [address] [address] PROTHROMBIN TIMEon 9 INR Coag (PPP) [Relative time] 1.22 {INR} High 0.91-1.16 [facility] Comment on above: Order Comment: No: D [...] By: #### 5 [id number] #### [facility] [address] [place] [address], [facility] PT Coag (PPP) [Time] 15.4 s High 12.3-14.8 [facility] Comment on above: Order Comment: No: D o not add to previous draw Result Comment: ALL RESULTS MUST BE INTERPRETED WITH RESPECT TO BLOOD DRAWING ARTIFACT OR DILUTION ERROR OF ANTICOAGULANT AT THE TIME OF SAMPLING. Performed By: #### 5 [id number] #### [facility] [address] [place] [address], [facility] POC GLUCOSE LABon 02-01-2019 Glucose [Mass/Vol] 152 mg/dL High 70-[address] [facility] Comment on above: Performed By: #### 5 [id number] #### [facility] [address] [place] [address], [facility] Glucose [Mass/Vol] 118 mg/dL High 70-[address] [facility] Comment on above: Performed By: #### 5 [id number] #### [facility] [address] [place] [address], [place] Glucose [Mass/Vol] 197 mg/dL High 70-[address] [facility] Comment on above: Performed By: #### 5 [id number] #### [facility] [address] [place] [address], [place] Glucose [Mass/Vol] 123 mg/dL High 70-[address] [facility] Comment on above: Performed By: #### 5 [id number] #### [facility] [address] [place] [address], [facility] PROTHROMBIN TIMEon 9 INR Coag (PPP) [Relative time] 1.24 {INR} High 0.91-1.16 [facility] Comment on above: Order Comment: Unkno [...] By: #### 0 [id number] #### [facility] [address] [place] [address], [facility] PT Coag (PPP) [Time] 15.6 s High 12.3-14.8 [facility] Comment on above: Order Comment: Unkno wn Result Comment: ALL RESULTS MUST BE INTERPRETED WITH RESPECT TO BLOOD DRAWING ARTIFACT OR DILUTION ERROR OF ANTICOAGULANT AT THE TIME OF SAMPLING. Performed By: #### 0 [id number] #### [facility] [address] [place] [address], [facility] BASIC METABOLIC PANELon 01-20 Calcium [Mass/Vol] 9.5 mg/dL Normal 8.6-10.3 [facility] Comment on above: Order Comment: No: D o not add to previous draw Performed By: #### 0 [id number] #### [facility] [address] [place] [address], [place] Chloride [Moles/Vol] 98 mmol/L Normal 98-107 [facility] Comment on above: Order Comment: No: D o not add to previous draw Performed By: #### 0 [id number] #### [facility] [address] [place] [address], [place] CO2 [Moles/Vol] 29 mmol/L Normal 21-31 [facility] Comment on above: Order Comment: No: D o not add to previous draw Performed By: #### 0 [id number] #### [facility] [address] [place] [address], [facility] Creatinine [Mass/Vol] 0.72 mg/dL Normal 0.60-1.20 [facility] Comment on above: Order Comment: No: D o not add to previous draw Performed By: #### 0 [id number] #### [facility] [address] [place] [address], [place] GFR/1.73 sq M predicted among blacks MDRD (S/P/Bld) [Vol rate/Area] mL/min/{1.73_m2} Normal >60 [facility] Comment on above: Order Comment: No: D o not add to previous draw Performed By: #### 0 [id number] #### [facility] [address] [place] [address], [place] GFR/1.73 sq M predicted among non-blacks MDRD (S/P/Bld) [Vol rate/Area] mL/min/{1.73_m2} Normal >60 [facility] Comment on above: Order Comment: No: D o not add to previous draw Performed By: #### 0 [id number] #### [facility] [address] [place] [address], [place] Glucose [Mass/Vol] 120 mg/dL High 70-[address] [facility] Comment on above: Order Comment: No: D o not add to previous draw Performed By: #### 0 [id number] #### [facility] [address] [place] [address], [place] Potassium [Moles/Vol] 3.5 mmol/L Normal 3.5-5.1 [facility] Comment on above: Order Comment: No: D o not add to previous draw Performed By: #### 0 [id number] #### [facility] [address] [place] [address], [place] Sodium [Moles/Vol] 138 mmol/L Normal 136-[address] [facility] Comment on above: Order Comment: No: D o not add to previous draw Performed By: #### 0 [id number] #### [facility] [address] [place] [address], [place] Urea nitrogen [Mass/Vol] 20 mg/dL Normal 7-25 [facility] Comment on above: Order Comment: No: D o not add to previous draw Performed By: #### 0 [id number] #### [facility] [address] [place] [address], [place] CBC COMPLETE BLOOD COUNTon 0 01-31-2019 Erythrocyte distribution width (RBC) [Ratio] 14.6 % Normal 11.5-15.0 [facility] Comment on above: Order Comment: No: D o not add to previous draw Performed By: #### 0 [id number] #### [facility] [address] [place] [address], [facility] Hematocrit (Bld) [Volume fraction] 42.7 % Normal 36.0-45.0 [facility] Comment on above: Order Comment: No: D o not add to previous draw Performed By: #### 0 [id number] #### [facility] [address] [place] [id number], [facility] Hemoglobin (Bld) [Mass/Vol] 13.8 g/dL Normal 12.0-15.0 [facility] Comment on above: Order Comment: No: D o not add to previous draw Performed By: #### 0 [id number] #### [facility] [address] [place] [address], [facility] MCH (RBC) [Entitic mass] 31.0 pg Normal 27.0-33.0 [facility] Comment on above: Order Comment: No: D o not add to previous draw Performed By: #### 0 [id number] #### [facility] [address] [place] [id number], [facility] MCHC (RBC) [Mass/Vol] 32.3 g/dL Normal 32.0-35.0 [facility] Comment on above: Order Comment: No: D o not add to previous draw Performed By: #### 0 [id number] #### [facility] [address] [place] [address], [facility] MCV (RBC) [Entitic vol] 96.0 fL Normal 82.0-98.0 [facility] Comment on above: Order Comment: No: D o not add to previous draw Performed By: #### 0 [id number] #### [facility] [address] [place] [id number], [facility] Nucleated RBC/100 WBC (Bld) [Ratio] 0 % Normal 0-0 [facility] Comment on above: Order Comment: No: D o not add to previous draw Performed By: #### 0 [id number] #### [facility] [address] [place] [address], [place] PLAT CNT 217 10*3/uL Normal 150-400 [facility] Comment on above: Order Comment: No: D o not add to previous draw Performed By: #### 0 [id number] #### [facility] [address] [place] [address], [facility] RBC (Bld) [#/Vol] 4.45 10*6/uL Normal 3.80-5.00 [facility] Comment on above: Order Comment: No: D o not add to previous draw Performed By: #### 0 [id number] #### [facility] [address] [place] [address], [facility] WBC (Bld) [#/Vol] 9.17 10*3/uL Normal 4.00-10.60 [facility] Comment on above: Order Comment: No: D o not add to previous draw Performed By: #### 0 [id number] #### [facility] [address] [place] [address], [facility] POC GLUCOSE LABon 01-31-2019 Glucose [Mass/Vol] 116 mg/dL High 70-[address] [facility] Comment on above: Performed By: #### 0 [id number] #### [facility] [address] [place] [address], [place] Glucose [Mass/Vol] 122 mg/dL High 70-[address] [facility] Comment on above: Performed By: #### 0 [id number] #### [facility] [address] [place] [address], [place] Glucose [Mass/Vol] 191 mg/dL High 70-[address] [facility] Comment on above: Performed By: #### 0 [id number] #### [facility] [address] [place] [address], [facility] Glucose [Mass/Vol] 131 mg/dL High 70-100 [facility] above: Performed By: #### 0 [id number] #### [facility] [address] [place] [address], [facility] PROTHROMBIN TIMEon 9 INR Coag (PPP) [Relative time] 1.24 {INR} High 0.91-1.16 [facility] Comment on above: Order Comment: Omeroo wn Result Comment: ACCC P RECOMMENDED INR [...] By: #### 0 [id number] #### [facility] [address] [place] [address], [facility] PT Coag (PPP) [Time] 15.6 s High 12.3-14.8 [facility] Comment on above: Order Comment: Unkno wn Result Comment: ALL RESULTS MUST BE INTERPRETED WITH RESPECT TO BLOOD DRAWING ARTIFACT OR DILUTION ERROR OF ANTICOAGULANT AT THE TIME OF SAMPLING. Performed By: #### 0 [id number] #### [facility] [address] [place] [address], [facility] BASIC METABOLIC PANELon 01-20 Calcium [Mass/Vol] 10.0 mg/dL Normal 8.6-10.3 [facility] Comment on above: Order Comment: No: D o not add to previous draw Performed By: #### 0 [id number] #### [facility] [address] [place] [address], [place] Chloride [Moles/Vol] 99 mmol/L Normal 98-107 [facility] Comment on above: Order Comment: No: D o not add to previous draw Performed By: #### 0 [id number] #### [facility] [address] [place] [address], [place] CO2 [Moles/Vol] 30 mmol/L Normal 21-31 [facility] Comment on above: Order Comment: No: D o not add to previous draw Performed By: #### 0 [id number] #### [facility] [address] [place] [address], [place] Creatinine [Mass/Vol] 0.74 mg/dL Normal 0.60-1.20 [facility] Comment on above: Order Comment: No: D o not add to previous draw Performed By: #### 0 [id number] #### [facility] [address] [place] [address], [place] GFR/1.73 sq M predicted among blacks MDRD (S/P/Bld) [Vol rate/Area] mL/min/{1.73_m2} Normal >60 [facility] Comment on above: Order Comment: No: D o not add to previous draw Performed By: #### 0 [id number] #### [facility] [facility] [address] [place] [address], [place] GFR/1.73 sq M predicted among non-blacks MDRD (S/P/Bld) [Vol rate/Area] mL/min/{1.73_m2} Normal >60 [facility] Comment on above: Order Comment: No: D o not add to previous draw Performed By: #### 0 0071 #### [facility] [address] [place] [address], [place] Glucose [Mass/Vol] 112 mg/dL High 70-[address] [facility] Comment on above: Order Comment: No: D o not add to previous draw Performed By: #### 0 0071 #### [facility] [address] [place] [address], [place] Potassium [Moles/Vol] 4.3 mmol/L Normal 3.5-5.1 [facility] Comment on above: Order Comment: No: D o not add to previous draw Performed By: #### 0 0071 #### [facility] [address] [place] [address], [place] Sodium [Moles/Vol] 137 mmol/L Normal 136-[address] [facility] Comment on above: Order Comment: No: D o not add to previous draw Performed By: #### 0 0071 #### [facility] [address] [place] [address], [place] Urea nitrogen [Mass/Vol] 20 mg/dL Normal 7-25 [facility] Comment on above: Order Comment: No: D o not add to previous draw Performed By: #### 0 0071 #### [facility] [address] [place] [address], [place] Calcium [Mass/Vol] 9.3 mg/dL Normal 8.6-10.[address] [facility] Comment on above: Order Comment: No: D o not add to previous draw Performed By: #### 5 6101 #### [facility] [address] [place] [address], [place] Chloride [Moles/Vol] 103 mmol/L Normal 98-107 [facility] Comment on above: Order Comment: No: D o not add to previous draw Performed By: #### 5 6101 #### [facility] [address] [place] [address], [place] CO2 [Moles/Vol] 28 mmol/L Normal 21-31 [facility] Comment on above: Order Comment: No: D o not add to previous draw Performed By: #### 5 6101 #### [facility] [address] [place] [address], [place] Creatinine [Mass/Vol] 0.62 mg/dL Normal 0.60-1.20 [facility] Comment on above: Order Comment: No: D o not add to previous draw Performed By: #### 5 6101 #### [facility] [address] [place] [address], [place] GFR/1.73 sq M predicted among blacks MDRD (S/P/Bld) [Vol rate/Area] mL/min/{1.73_m2} Normal >60 [facility] Comment on above: Order Comment: No: D o not add to previous draw Performed By: #### 5 6101 #### [facility] [address] [place] [address], [place] GFR/1.73 sq M predicted among non-blacks MDRD (S/P/Bld) [Vol rate/Area] mL/min/{1.73_m2} Normal >60 [facility] Comment on above: Order Comment: No: D o not add to previous draw Performed By: #### 5 6101 #### [facility] [address] [place] [address], [place] Glucose [Mass/Vol] 117 mg/dL High 70-100 [facility] Comment on above: Order Comment: No: D o not add to previous draw Performed By: #### 5 6101 #### [facility] [address] [place] [address], [place] Potassium [Moles/Vol] 3.5 mmol/L Normal 3.5-5.1 [facility] Comment on above: Order Comment: No: D o not add to previous draw Performed By: #### 5 6101 #### [facility] [address] [place] [address], [facility] Sodium [Moles/Vol] 140 mmol/L Normal 136-[address] [facility] Comment on above: Order Comment: No: D o not add to previous draw Performed By: #### 5 6101 #### [facility] [address] [place] [address], [facility] Urea nitrogen [Mass/Vol] 15 mg/dL Normal 7-25 [facility] Comment on above: Order Comment: No: D o not add to previous draw Performed By: #### 5 6101 #### [facility] [address] [place] [address], [facility] CBC COMPLETE BLOOD COUNTon - Erythrocyte distribution width (RBC) [Ratio] 14.6 % Normal 11.5-15.0 [facility] Comment on above: Order Comment: No: D o not add to previous draw Performed By: #### 5 6101 #### [facility] [address] [place] [address], [facility] Hematocrit (Bld) [Volume fraction] 42.1 % Normal 36.0-45.0 [facility] Comment on above: Order Comment: No: D o not add to previous draw Performed By: #### 5 6101 #### [facility] [address] [place] [address], [facility] Hemoglobin (Bld) [Mass/Vol] 13.4 g/dL Normal 12.0-15.0 [facility] Comment on above: Order Comment: No: D o not add to previous draw Performed By: #### 5 6101 #### [facility] [address] [place] [address], [place] MCH (RBC) [Entitic mass] 30.6 pg Normal 27.0-33.0 [facility] Comment on above: Order Comment: No: D o not add to previous draw Performed By: #### 5 6101 #### [facility] [address] [place] [address], [facility] MCHC (RBC) [Mass/Vol] 31.8 g/dL Low 32.0-35.0 [facility] Comment on above: Order Comment: No: D o not add to previous draw Performed By: #### 5 6101 #### [facility] [address] [place] [id number], [facility] MCV (RBC) [Entitic vol] 96.1 fL Normal 82.0-98.0 [facility] Comment on above: Order Comment: No: D o not add to previous draw Performed By: #### 5 6101 #### [facility] [address] [place] [address], [facility] Nucleated RBC/100 WBC (Bld) [Ratio] 0 % Normal 0-0 [facility] Comment on above: Order Comment: No: D o not add to previous draw Performed By: #### 5 6101 #### [facility] [address] [place] [address], [facility] PLAT CNT 215 10*3/uL Normal 150-400 [facility] Comment on above: Order Comment: No: D o not add to previous draw Performed By: #### 5 6101 #### [facility] [address] [address], [facility] RBC (Bld) [#/Vol] 4.38 10*6/uL Normal 3.80-5.00 [facility] Comment on above: Order Comment: No: D o not add to previous draw Performed By: #### 5 6101 #### [facility] [address] [place] [id number], [facility] WBC (Bld) [#/Vol] 8.75 10*3/uL Normal 4.00-10.60 [facility] Comment on above: Order Comment: No: D o not add to previous draw Performed By: #### 5 6101 #### [facility] [address] [place] [address], [facility] Cardiovascular Lab Reporton 01-30-2019 Cardiovascular Lab Report [facility] Patient Name: Afia Gill [facility] Kassy MR #: [id number] Department of Physician: Raman Allen Tayler Gomez M.D. Division of Service Date: 01/29/2019 Cardiology Birthdate: 1950 Adult Cardiovascular Room #: 3AB [id number] [facility] [address] [facility]. [place] [address] Cardiovascular Laboratory Report INDICATION: The patient is [...] signed informed consent. She was brought to laboratory worker in a fasting state. The right neck area was prepped and draped in usual fashion. Using ultrasound guidance and micropuncture technique, the internal jugular vein was accessed. A 6-Djiboutian x 11 cm sheath was placed. A 6-Djiboutian Caldera catheter was used for right heart catheterization with measurement of pressures and calculation of cardiac output using the estimated Nader method. The Caldera catheter was removed. Using ultrasound guidance and micropuncture technique, the right radial artery was accessed. A 6-Djiboutian x 11 cm Hydrophilic sheath was advanced. Verapamil was given through the sheath and a bolus of bivalirudin was given intravenously as the patient has prior history of heparin-induced thrombocytopenia. Note that, the care was taken to avoid any use of heparin during the procedure. Bilateral selective coronary angiography was then performed using 6-Djiboutian JL3.5 and JR5 diagnostic catheters. Catheters were removed. A 6-Djiboutian angled pigtail catheter was advanced over the [...] with 30% left ventricular ejection fraction. 3. Dedz-uf-mvvrgnti mitral regurgitation. 4. Severely elevated filling pressures. [...] Kassy/Raman Gomez M.D. Date Trans: 01/30/2019 07:50 A/ivan [id number] cc: Yahir Brothers M.D. [address] [place] [address] Yahir Mijares M.D. [address] [place] [id number] Normal [facility] MAGNESIUM BLOODon 01-30-2019 Magnesium [Mass/Vol] 2.2 mg/dL Normal 1.9-2.7 [facility] Comment on above: Order Comment: No: D o not add to previous draw Performed By: #### 0 0071 #### [facility] [address] [place] [address], [place] Magnesium [Mass/Vol] 2.2 mg/dL Normal 1.9-2.7 [facility] Comment on above: Order Comment: No: D o not add to previous draw Performed By: #### 5 6101 #### [facility] [address] [place] [address], [place] POC GLUCOSE LABon 01-30-2019 Glucose [Mass/Vol] 107 mg/dL High 70-[address] [facility] Comment on above: Performed By: #### 5 6101 #### [facility] [address] [place] [address], [place] Glucose [Mass/Vol] 125 mg/dL High 70-[address] [facility] Comment on above: Performed By: #### 5 6101 #### [facility] [address] [place] [address], [place] Glucose [Mass/Vol] 137 mg/dL High 70-[address] [facility] Comment on above: Performed By: #### 5 6101 #### [facility] [address] Glucose [Mass/Vol] 114 mg/dL High 70-[address] [facility] Comment on above: Performed By: #### 5 6101 #### [facility] [address] [place] [address], [facility] PROTHROMBIN TIMEon 9 INR Coag (PPP) [Relative time] 1.23 {INR} High 0.91-1.16 [facility] Comment on above: Order Comment: No: D [...] By: #### 5 6101 #### [facility] [address] [place] [address], [facility] PT Coag (PPP) [Time] 15.5 s High 12.3-14.8 [facility] Comment on above: Order Comment: No: D o not add to previous draw Result Comment: ALL RESULTS MUST BE INTERPRETED WITH RESPECT TO BLOOD DRAWING ARTIFACT OR DILUTION ERROR OF ANTICOAGULANT AT THE TIME OF SAMPLING. Performed By: #### 5 6101 #### [facility] [address] [place] [address], [facility] TSH3on 01-30-2019 TSH 3RD GENERATION 1.24 uIU/mL Normal 0.34-5.60 [facility] Comment on above: Order Comment: No: D o not add to previous draw Performed By: #### 5 6101 #### [facility] [address] CBC COMPLETE BLOOD COUNTon 0 01-29-2019 Erythrocyte distribution width (RBC) [Ratio] 14.7 % Normal 11.5-15.0 [facility] Comment on above: Order Comment: No: D o not add to previous draw Performed By: #### 5 0608 #### [facility] [address] Hematocrit (Bld) [Volume fraction] 43.4 % Normal 36.0-45.0 [facility] Comment on above: Order Comment: No: D o not add to previous draw Performed By: #### 5 0608 #### [facility] [address] Hemoglobin (Bld) [Mass/Vol] 13.8 g/dL Normal 12.0-15.0 [facility] Comment on above: Order Comment: No: D o not add to previous draw Performed By: #### 5 0608 #### [facility] [address] [place] [address], [facility] MCH (RBC) [Entitic mass] 30.3 pg Normal 27.0-33.0 [facility] Comment on above: Order Comment: No: D o not add to previous draw Performed By: #### 5 0608 #### [facility] [address] [facility] [place] [address], [facility] MCHC (RBC) [Mass/Vol] 31.8 g/dL Low 32.0-35.0 [facility] Comment on above: Order Comment: No: D o not add to previous draw Performed By: #### 5 0608 #### [facility] [address] [place] [address], [facility] MCV (RBC) [Entitic vol] 95.2 fL Normal 82.0-98.0 [facility] Comment on above: Order Comment: No: D o not add to previous draw Performed By: #### 5 0608 #### [facility] [address] [place] [address], [facility] Nucleated RBC/100 WBC (Bld) [Ratio] 0 % Normal 0-0 [facility] Comment on above: Order Comment: No: D o not add to previous draw Performed By: #### 5 0608 #### [facility] [address] [place] [address], [facility] PLAT CNT 240 10*3/uL Normal 150-400 [facility] Comment on above: Order Comment: No: D o not add to previous draw Performed By: #### 5 0608 #### [facility] [address] [place] [address], [facility] RBC (Bld) [#/Vol] 4.56 10*6/uL Normal 3.80-5.00 [facility] Comment on above: Order Comment: No: D o not add to previous draw Performed By: #### 5 0608 #### [facility] [address] [place] [address], [facility] WBC (Bld) [#/Vol] 9.28 10*3/uL Normal 4.00-10.60 [facility] Comment on above: Order Comment: No: D o not add to previous draw Performed By: #### 5 0608 #### [facility] [address] [place] [address], [facility] COMP METABOLIC PANELon 01-29 Albumin [Mass/Vol] 4.1 g/dL Normal 3.5-5.[address] [facility] Comment on above: Order Comment: No: D o not add to previous draw Performed By: #### 1 0, 43985, 87050 #### [facility] [address] [place] [address], [place] ALKALINE PHOSPH 50 IU/L Normal 34-104 [facility] Comment on above: Order Comment: No: D o not add to previous draw Performed By: #### 1 0, 39809, 03581 #### [facility] [address] [place] [address], [place] ALT [Catalytic activity/Vol] 14 U/L Normal 7-52 [facility] Comment on above: Order Comment: No: D o not add to previous draw Performed By: #### 1 0, , 99464 #### [facility] [address] [place] [address], [place] AST [Catalytic activity/Vol] 15 U/L Normal 13-39 [facility] Comment on above: Order Comment: No: D o not add to previous draw Performed By: #### 1 0, , 40044 #### [facility] [address] [place] [address], [place] Bilirubin [Mass/Vol] 0.8 mg/dL Normal 0.3-1.0 [facility] Comment on above: Order Comment: No: D o not add to previous draw Performed By: #### 1 0, , 19282 #### [facility] [address] [place] [address], [place] Calcium [Mass/Vol] 9.6 mg/dL Normal 8.6-10.3 [facility] Comment on above: Order Comment: No: D o not add to previous draw Performed By: #### 1 0, 65971, 94366 #### [facility] [address] [place] [address], [place] Chloride [Moles/Vol] 103 mmol/L Normal 98-107 [facility] Comment on above: Order Comment: No: D o not add to previous draw Performed By: #### 1 0, , 46241 #### [facility] [address] [place] [address], [place] CO2 [Moles/Vol] 30 mmol/L Normal 21-31 [facility] Comment on above: Order Comment: No: D o not add to previous draw Performed By: #### 1 0, , 35414 #### [facility] [address] [place] [address], [place] Creatinine [Mass/Vol] 0.71 mg/dL Normal 0.60-1.20 [facility] Comment on above: Order Comment: No: D o not add to previous draw Performed By: #### 1 0, , 17685 #### [facility] [address] [place] [address], [place] GFR/1.73 sq M predicted among blacks MDRD (S/P/Bld) [Vol rate/Area] mL/min/{1.73_m2} Normal >60 [facility] Comment on above: Order Comment: No: D o not add to previous draw Performed By: #### 1 0, 26360, 87012 #### [facility] [address] [place] [address], [place] GFR/1.73 sq M predicted among non-blacks MDRD (S/P/Bld) [Vol rate/Area] mL/min/{1.73_m2} Normal >60 [facility] Comment on above: Order Comment: No: D o not add to previous draw Performed By: #### 1 0, , 92122 #### [facility] [address] [place] [address], [place] Glucose [Mass/Vol] 116 mg/dL High 70-100 [facility] Comment on above: Order Comment: No: D o not add to previous draw Performed By: #### 1 0, , 57029 #### [facility] [address] [place] [address], [place] Potassium [Moles/Vol] 3.9 mmol/L Normal 3.5-5.1 [facility] Comment on above: Order Comment: No: D o not add to previous draw Performed By: #### 1 0070, 63789, 55741 #### [facility] [address] [place] [address], [place] Protein [Mass/Vol] 7.6 g/dL Normal 6.0-8.[address] [facility] Comment on above: Order Comment: No: D o not add to previous draw Performed By: #### 1 0070, 48731, 23923 #### [facility] [address] [place] [address], [place] Sodium [Moles/Vol] 140 mmol/L Normal 136-[address] [facility] Comment on above: Order Comment: No: D o not add to previous draw Performed By: #### 1 0070, 70637, 00132 #### [facility] [address] [place] [address], [place] Urea nitrogen [Mass/Vol] 18 mg/dL Normal 7-25 [facility] Comment on above: Order Comment: No: D o not add to previous draw Performed By: #### 1 0, 71131, 84434 #### [facility] [address] [place] [address], [place] HEMOGLOBIN A1Con 01-29-2019 HbA1c (Bld) [Mass fraction] 6.1 % High 4.0-6.0 [facility] Comment on above: Order Comment: Yes: Add to Previous draw if able Performed By: #### 5 6101 #### [facility] [address] [place] [address], [place] HbA1c (Bld) [Mass fraction] 128 mg/dL High 70-126 [facility] Comment on above: Order Comment: Yes: Add to Previous draw if able Performed By: #### 5 6101 #### [facility] [address] [place] [address], [facility] LIPID PROFILEon 01-29-2019 Cholesterol [Mass/Vol] 130 mg/dL Normal 120-200 [facility] Comment on above: Result Comment: CHOL ESTEROL REFERENCE RANGE: 20 YEARS AND OLDER CARDIOVASCULAR RISK Less than 200 mg/dl Low Risk 200 to 239 mg/dl Borderline Risk 240 mg/dl and greater High Risk Performed By: #### 1 0070, 34455, 66851 #### [facility] [address] [place] [address], [facility] Cholesterol in HDL [Mass/Vol] 31 mg/dL Normal 23-92 [facility] Comment on above: Result Comment: Slig ht variation in normal range could be due to gender and/or age. HDL CHOLESTEROL REFERENCE RANGE: 20 years and older Cardiovascular Risk > or =60 mg/dL Desirable 40 TO 59 mg/dL Low Risk <40 mg/dL High Risk Performed By: #### 1 0070, 65316, 29033 #### [facility] [address] [place] [address], [facility] Cholesterol in LDL [Mass/Vol] 67 mg/dL Normal 0-130 [facility] Comment on above: Result Comment: LDL IS A CALCULATION LDL IS ONLY VALID IF THE TRIG IS LESS THAN 400. Performed By: #### 1 0070, 58250, 64126 #### [facility] [address] [place] [address], [place] Cholesterol.total/C holesterol in HDL [Mass ratio] 4.2 {ratio} Normal .0-4.5 [facility] Comment on above: Performed By: #### 1 0070, 83853, 16433 #### [facility] [address] [place] [address], [place] NON-HDL CHOLESTEROL 99 mg/dL Normal [facility] Comment on above: Performed By: #### 1 0070, 18944, 69472 #### [facility] [address] Triglyceride [Mass/Vol] 158 mg/dL High 40-149 [facility] Comment on above: Result Comment: TRIG LYCERIDE REFERENCE RANGE: 20 YEARS AND OLDER CARDIOVASCULAR RISK LESS THAN 150 mg/dl LOW RISK 150 TO 199 mg/dl BORDERLINE RISK 200 mg/dl AND GREATER HIGH RISK Performed By: #### 1 0070, 07130, 34894 #### [facility] [address] [place] [address], [facility] VLDL CHOL 32 mg/dL Normal 0-40 [facility] Comment on above: Performed By: #### 1 0070, 00579, 91686 #### [facility] [address] [facility] [address] MAGNESIUM BLOODon 01-29-2019 Magnesium [Mass/Vol] 2.2 mg/dL Normal 1.9-2.7 [facility] Comment on above: Order Comment: No: D o not add to previous draw Performed By: #### 1 0070, 58812, 68825 #### [facility] [address] POC GLUCOSE LABon 01-29-2019 Glucose [Mass/Vol] 102 mg/dL High 70-[address] [facility] Comment on above: Performed By: #### 8 5499 #### [facility] [address] [facility] [place] [address], [facility] Glucose [Mass/Vol] 131 mg/dL High 70-[address] [facility] Comment on above: Performed By: #### 8 5499 #### [facility] [address] PROTHROMBIN TIMEon 201 9 INR Coag (PPP) [Relative time] 1.39 {INR} High 0.91-1.16 [facility] Comment on above: Order Comment: Yes: Add [...] By: #### 5 6101 #### [facility] [address] PT Coag (PPP) [Time] 17.1 s High 12.3-14.8 [facility] Comment on above: Order Comment: Yes: Add to Previous draw if able Result Comment: ALL RESULTS MUST BE INTERPRETED WITH RESPECT TO BLOOD DRAWING ARTIFACT OR DILUTION ERROR OF ANTICOAGULANT AT THE TIME OF SAMPLING. Performed By: #### 5 6101 #### [facility] [address] BASIC METABOLIC PANELon 04-0 Calcium [Mass/Vol] 10.1 mg/dL Normal 8.6-10.3 [facility] [facility] Comment on above: Performed By: #### 0 [id number] #### [facility] [address] Chloride [Moles/Vol] 100 mmol/L Normal 98-107 [facility] Comment on above: Performed By: #### 0 [id number] #### [facility] [address] CO2 [Moles/Vol] 30 mmol/L Normal 21-31 [facility] Comment on above: Performed By: #### 0 [id number] #### [facility] [address] [place] [address], [place] Creatinine [Mass/Vol] 0.71 mg/dL Normal 0.60-1.20 [facility] Comment on above: Performed By: #### 0 [id number] #### [facility] [address] [place] [address], [place] GFR/1.73 sq M predicted among blacks MDRD (S/P/Bld) [Vol rate/Area] mL/min/{1.73_m2} Normal >60 [facility] Comment on above: Performed By: #### 0 [id number] #### [facility] [address] [facility] [place] [address], [facility] GFR/1.73 sq M predicted among non-blacks MDRD (S/P/Bld) [Vol rate/Area] mL/min/{1.73_m2} Normal >60 [facility] Comment on above: Performed By: #### 0 [id number] #### [facility] [address] [place] [address], [place] Glucose [Mass/Vol] 93 mg/dL Normal 70-[address] [facility] Comment on above: Performed By: #### 0 [id number] #### [facility] [address] [place] [address], [place] Potassium [Moles/Vol] 3.7 mmol/L Normal 3.5-5.1 [facility] Comment on above: Performed By: #### 0 [id number] #### [facility] [address] [place] [address], [place] Sodium [Moles/Vol] 139 mmol/L Normal 136-[address] [facility] Comment on above: Performed By: #### 0 [id number] #### [facility] [address] Urea nitrogen [Mass/Vol] 16 mg/dL Normal 7-25 [facility] Comment on above: Performed By: #### 0 [id number] #### [facility] [address] [facility] CBC COMPLETE BLOOD COUNTon 0 01-22-2019 Erythrocyte distribution width (RBC) [Ratio] 14.9 % Normal 11.5-15.0 [facility] Comment on above: Performed By: #### 5 [id number] #### [facility] [address] Hematocrit (Bld) [Volume fraction] 43.0 % Normal 36.0-45.0 [facility] Comment on above: Performed By: #### 5 [id number] #### [facility] [address] Hemoglobin (Bld) [Mass/Vol] 13.7 g/dL Normal 12.0-15.0 [facility] Comment on above: Performed By: #### 5 [id number] #### [facility] [address] MCH (RBC) [Entitic mass] 30.0 pg Normal 27.0-33.0 [facility] Comment on above: Performed By: #### 5 [id number] #### [facility] [address] MCHC (RBC) [Mass/Vol] 31.9 g/dL Low 32.0-35.0 [facility] Comment on above: Performed By: #### 5 [id number] #### [facility] [address] [place] [address], [facility] MCV (RBC) [Entitic vol] 94.3 fL Normal 82.0-98.0 [facility] Comment on above: Performed By: #### 5 [id number] #### [facility] [address] Nucleated RBC/100 WBC (Bld) [Ratio] 0 % Normal 0-0 [facility] Comment on above: Performed By: #### 5 [id number] #### [facility] [address] [place] [address], [facility] PLAT CNT 270 10*3/uL Normal 150-400 The [facility] Comment on above: Performed By: #### 5 [id number] #### [facility] [address] RBC (Bld) [#/Vol] 4.56 10*6/uL Normal 3.80-5.00 The [facility] Comment on above: Performed By: #### 5 [id number] #### [facility] [address] WBC (Bld) [#/Vol] 9.44 10*3/uL Normal 4.00-10.60 [facility] Comment on above: Performed By: #### 5 [id number] #### [facility] [address] PROTHROMBIN TIMEon 9 INR Coag (PPP) [Relative time] 1.85 {INR} High 0.91-1.16 [facility] Comment on above: Result Comment: ACCC P [...] By: #### 5 [id number] #### [facility] [address] PT Coag (PPP) [Time] 21.4 s High 12.3-14.8 [facility] Comment on above: Result Comment: ALL RESULTS MUST BE INTERPRETED WITH RESPECT TO BLOOD DRAWING ARTIFACT OR DILUTION ERROR OF ANTICOAGULANT AT THE TIME OF SAMPLING. Performed By: #### 5 [id number] #### [facility] [address] Encounters Encounter Date Encounter Type Care Provider Facility Start: 12-31-2023 End: 12-31-2023 ambulatory YAHIR BROTHERS [facility] Start: 12-26-2023 End: 12-29-2023 Evaluation and management of inpatient COLIN KEITH [facility] Start: 12-25-2023 End: 12-29-2023 Evaluation and management of inpatient BIJAL BARNHART [facility] Start: 12-21-2023 End: 12-29-2023 Orders Only Korina Oliver MD Work Phone: [facility] Start: 12-20-2023 End: 12-29-2023 [facility] Start: 12-20-2023 End: 12-29-2023 Emergency department patient visit DANAE BRITTON [facility] Start: 12-20-2023 End: 12-28-2023 Evaluation and management of inpatient [facility] Start: 11-01-2023 End: 11-01-2023 ambulatory EBER JOSHUA [facility] Start: 10-31-2023 End: 10-31-2023 ambulatory AYHIRQING BROTHERS Not Available Start: 09-05-2023 End: 09-05-2023 ambulatory YAHIR BROTHERS Not Available Start: 07-07-2023 End: 07-10-2023 ambulatory YAHIR B ANDREA Not Available Start: 05-23-2023 End: 05-23-2023 ambulatory RAMAN GOMEZ [facility] Start: 03-02-2023 End: 03-03-[address] DOCTOR LOYOLA Facility:[facility] Start: 02-19-2023 End: 02-19-2023 ambulatory JESSICA PRECIADO [facility] Start: 12-27-2022 End: 12-28-[address] YAHIR BROTHERS Facility:[facility] Start: 05-17-2022 End: 05-18-[address] YAHIR BROTHERS Facility:[facility] Start: 01-29-2019 End: 02-02-2019 Evaluation and management of inpatient YAHIR BROTHERS Facility:[facility] Procedures Date Procedure Procedure [...] Td Vaccines (2 - Td or Tdap) [facility] [facility] Start: 12-20-2024 Adult [facility] Screening [facility] Start: 12-20-2024 Tobacco Screening Tobacco Screening [facility] Start: 06-22-2023 COVID-19 Vaccine ( season) COVID-19 Vaccine ( season) [facility] Start: 2017 Fall Risk Screening Fall Risk Screen [facility] Start: 1970 Adult BMI Follow Up Plan Adult BMI Follow Up Plan [facility] Start: 1964 Depression [facility] Start: 1950 Medicare Annual Wellness Visit Medicare Annual Wellness Visit [facility] Immunizations Immunization Date Immunization Notes Care Provider Fa danyellety 02-04-2021 COVID-19, mRNA, LNP- S, PF, 100mcg/0.5mL Dose Korina Oliver MD Work Phone: [facility] 01-07-2021 COVID-19, mRNA, LNP- S, PF, 100mcg/0.5mL Dose Korina Oliver MD Work Phone: [facility] 08-03-2019 pneumococcal conjuga te vaccine, 13 valent Korina Oliver MD Work Phone: [facility] Payers Date Payer Category Payer Unknown [employer] [id number] 2022-Present [phone] [address] [place] [address] [id number] 1959 Unknown [id number] 1959 Unknown [id number] 1950 Unknown [id number] [id number] 1952 Unknown [id number] 2.16.840.1.710296.3.579.2.593 1952 Unknown [id number] 2.16.840.1.327196.3.579.2.593 1952 Unknown [id number] 2.16.840.1.538513.3.579.2.593 1952 Unknown [id number] 2.16.840.1.530241.3.579.2.1286 1952 Unknown [id number] 2.16.840.1.069880.3.579.2.1286 1952 Unknown [id number] 2.16.840.1.679639.3.579.2.1286 1952 Unknown [id number] 2.16.840.1.950361.3.579.2.1286 1952 Unknown [id number] 2.16.840.1.686697.3.579.2.1286 1952 Unknown [id number] 2.16.840.1.221084.3.579.2.1286 1952 Unknown [id number] 2.16.840.1.139944.3.579.2.1286 1952 Unknown [id number] 2.16.840.1.853989.3.579.2.1286 1952 Unknown [id number] 2.16.840.1.731336.3.579.2.1286 1952 Unknown [id number] 2.16.840.1.986340.3.579.2.1259 1952 Unknown [id number] 2.16.840.1.294663.3.579.2.1259 1952 Unknown [id number] 2.16.840.1.638827.3.579.2.1259 1950 Unknown [id number] 2.16.840.1.515318.3.579.2.1286 Medicare [id number] Social History Date Type Detail Facility Start: 12-20-2023 Tobacco smoking stat [facility] Ex-smoker [facility] End: 03-11-2002 History of tobacco use Current smoker [facility] End: 03-11-2002 History of tobacco use Cigarette Smoker [facility] Start: 12-02-2020 End: 12-20-2023 Cigarettes smoked current (pack per day) - Reported 1 [facility] [employer] [facility] Start: 12-20-2023 Tobacco use and exposure Smoke less tobacco non-user [facility] Start: 12-21-2023 Alcohol intake Ex-drinker (finding) [facility] Start: 12-02-2020 End: 12-20-2023 [facility] [employer] [facility] Has the [employer], or [employer] threatened to shut off services in your home in past 12Mo No [facility] In the past 12 month s, has lack of transportation kept you from medical appointments or from getting medications? No [facility] Start: 12-20-2023 Tobacco Comment quit 17 years ago [facility] Start: 1950 Sex Assigned At Not on file [facility] [employer] [facility] Goals Date Patient Goal Desired Activity /State Personal health goal Comment on above: Formatting of this n ote might be different from the original. Evaluation of progress towards goal: under assessment, pt prefers home with HHC vs SNF Progress note 11-01-2023 Note Date & Type Note Facility 11-01-2023 Note Cardiovascular Medic [facility] SUBJECTIVE Chief Complaint Patient presents with Atrial Fibrillation Congestive Heart Failure Afia Gill is a 73 y.o. female here for follow-up. HPI Hx: *Atrial fibrillation *NSVT *Systolic heart failure *Pulmonary embolism in 2004 status post left total knee arthroplasty. *Heparin-induced thrombocytopenia. *Pulmonary hypertension by echocardiogram. *Obstructive sleep apnea, on CPAP. *Status post Sundance filter. *Morbid obesity. *Continuous oxygen. *Abnormal stress [...] Restless legs syndrome Pure hypercholesterolemia Pulmonary embolism ([facility]) Primary localized osteoarthrosis of shoulder region Osteoarthritis Obstructive sleep apnea syndrome Acute coronary thrombosis not resulting in myocardial infarction ([facility]) Acute embolism and thrombosis of unspecified deep veins of unspecified lower extremity ([facility]) Diabetic renal disease ([facility]) Disorder of kidney and ureter, unspecified Urinary tract infection, site not specified Encounter for other specified aftercare Generalized anxiety disorder Hyperlipidemia Hypoventilation associated with obesity syndrome ([facility]) Lymphedema, not elsewhere classified Insomnia Major depressive disorder, single episode, unspecified Muscle weakness (generalized) Stage 3a chronic kidney disease ([facility]) Rheumatoid arthritis, unspecified ([facility]) Other abnormalities of breathing Osteoarthritis of right ankle and foot Stiffness of unspecified shoulder, not elsewhere classified Unspecified Escherichia coli (E. coli) as the cause of diseases classified elsewhere Ataxia, unspecified Chronic atrial fibrillation ([facility]) Peripheral vascular disease, unspecified ([facility]) Essential (primary) hypertension Unspecified atrial fibrillation ([facility]) Chronic systolic CHF (congestive heart failure), NYHA class 4 ([facility]) Other chronic pain Past Medical History: Diagnosis Date Atrial fibrillation ([facility]) CHF (congestive heart failure) ([facility]) Hypertension Pulmonary embolism ([facility]) Family History Problem Relation Name [...] Disp: , Rfl (more content not included)... [facility] Progress note 11-01-2023 Note Date & Type Note Facility 11-01-2023 Note Patient here for 6 m o follow up permanent afib, chronic systolic heart failure, and hypertension. She was prescribed antibiotic yesterday by PCP for sinus infection. Having epistaxis and green/black stools. Made PCP aware of this yesterday. Says she was very sick around [place] but is feeling better. Review of Systems HENT: Positive for nosebleeds. Cardiovascular: Positive for dyspnea on exertion. Respiratory: Positive for cough and shortness of breath. Hematologic/Lymphatic: Bruises/bleeds easily. Neurological: Positive for focal weakness and weakness. All other systems reviewed and are negative. [facility] Progress note 05-23-2023 Note Date & Type Note Facility 05-23-2023 Note [place] [facility] Subjective Afia Gill is a [...] Obstructive sleep apnea, on CPAP. Status post Sundance filter. Morbid obesity. She is currently on [...] filling pressures. She (more content not included)... [facility] Progress note 02-19-2023 Note Date & Type [...] All other systems reviewed and are negative. [facility] Progress note 02-19-2023 Note Date & Type [...] hypokinesis. Echocardiogram 2 (more content not included)... [facility] Instructions Note Date & Type Note Facility Instructions Not on filedocumented in this en counter [facility] Summary Purpose Family History No [...] PM Hospital Course Note MR#: [id number] I [facility] Pt. Name: Afia iGll Admitted: 01/29/2019 Discharged: 02/02/2019 Date of : 1950 Physician: Lan Flores MD DISCHARGE SUMMARY PRIMARY DIAGNOSIS: New onset [...] and content) DATE CREATED AUTHOR 06/17/2019 [facility] DATE CREATED AUTHOR AUTHOR'S ORGANIZ ATION 03/03/2023 [facility] DATE CREATED AUTHOR AUTHOR'S ORGANIZ ATION 12/29/2023 [facility] DATE CREATED AUTHOR AUTHOR'S ORGANIZ ATION 12/29/2023 [facility] EPIC DATE CREATED AUTHOR AUTHOR'S ORGANIZ ATION 12/31/2023 [facility] DATE CREATED AUTHOR AUTHOR'S ORGANIZ ATION 01/10/2024 [facility] Care Teams (unrecognized sec tion and content) Ed Teacher Relationship Specialty Start Date End Date Yahir Brothers MD [address] [address] PCP - General Internal Medicine 12/20/23 FOR [...] BE BASED ON THE PRIMARY CLINICAL RECORDS. [employer] provides no warranty or guarantee of the accuracy or completeness of information in this document.
[2024-01-11 08:12] LABS: Basophils Absolute Auto 0.1 10^3/uL (0.0-0.1); Basophils Percent Auto 0.4 % (0.2-2.0); Eosinophils Absolute Auto 0.7 10^3/uL (0.0-0.7); Eosinophils Percent Auto 5.1 % (0.9-7.0); Hematocrit 43.3 % (36.0-48.0); Hemoglobin 13.5 g/dL (12.0-16.0); Immature Granulocytes Abs Auto 0.06 10^3/uL (0.00-0.03); Immature Granulocytes Pct Auto 0.4 % (0.0-0.5); Lymphocytes Absolute Auto 3.9 10^3/uL (1.2-3.8); Mean Corpuscular HGB Conc 31.2 g/dL (29.9-35.2); Mean Corpuscular Hemoglobin 28.7 pg (26.7-34.0); Mean Corpuscular Volume 92.1 fL (81.0-99.0); Mean Platelet Volume 10.9 fL (9.5-13.5); Monocytes Absolute Auto 0.8 10^3/uL (0.3-0.8); Neutrophils Absolute Auto 7.9 10^3/uL (1.4-6.5); Neutrophils Percent Auto 59.1 % (43.0-75.0); Platelet Count 369 10^3/uL (150-450); Red Cell Distribution Width 13.8 % (11.0-15.0); White Blood Count 13.4 10^3/uL (4.0-11.0)
[2024-01-11 08:50] LABS: Alanine Aminotransferase 26 U/L (14-59); Albumin Globulin Ratio 0.6; Albumin Level 3.3 g/dL (3.4-5.0); Alkaline Phosphatase 97 U/L (46-116); Anion Gap 16.7; Aspartate Amino Transferase 19 U/L (15-37); BUN Creatinine Ratio 14.1; Bilirubin Direct 0.1 mg/dL (0.0-0.2); Bilirubin Total 0.4 mg/dL (0.2-1.0); Calcium 9.3 mg/dL (8.5-10.1); Carbon Dioxide 28.2 mmol/L (21.0-32.0); Chloride 100 mmol/L (98-107); Creatine Kinase 100 U/L (26-192); Estimated GFR (African America >60 (>=60); Estimated GFR (Non-African Ame 55 (>=60); Globulin 5.2 g/dL; Glucose 161 mg/dL (74-106); Potassium 3.9 mmol/L (3.5-5.1); Sodium 141 mmol/L (136-145); Total Protein 8.5 g/dL (6.4-8.2)
== END 2024-01-11 02:13 | disposition home or self-care (01) ==
LOC: LAB 02:12
PROVIDERS: PCP Internal Medicine; Visit Provider Family Medicine
DX: M86.9 Osteomyelitis, unspecified (principal)
CPT/HCPCS: 36415; 80048; 80076; 82550; 85025

== ENCOUNTER 2024-01-14 01:54 | Outpatient (REF) | payer MEDICARE, SELFPAY ==
--- OUTSIDE RECORDS SUMMARY | 2024-01-14 01:57 | XMS_ITS | CCD ---
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 Care Container Coordinator Name Role Phone YAHIR BROTHERS Referring Unavailable YAHIR BROTHERS Primary Care Unavailable AHMED, LAN Attending Unavailable AHMED LAN Admitting Unavailable [place] Procedure Practitioner Unavailab le [...] Care Unavailable ANDREA, DR GAO Consulting Unavailable CARO, DR JEANETTE Armenta Consulting Unavailable Yahir Brothers MD Primary Care Provider [phone] RAND CRAWFORD Attending Unavailable YAHIR BROTHERS Primary [...] Primary Care Unavailable EBER JOSHUA Attending Unavailable ANITA MONTES Attending Unavailable JESSICA PRECIADO Attending Unavailable RAMAN GOMEZ Attending Unavailable Allergies Allergy Classification Reported Allergen(s) Allergy Type Date of Onset Reaction(s) Facility (1 source) Estrogens Drug Allergy 9 [facility] Repository (1 source) heparin Drug Allergy 9 [facility] Repository (2 sources) Penicillins; Translations: [PENICILLINS] Drug allergy (disorder) 9 [facility] Repository (2 sources) pregabalin Drug Allergy 9 [facility] Repository (6 sources) Bleach (Sodium Hypochlorite); Translations: [Bleach (Sodium Hypochlorite)] Propensity to adverse reactions (disorder) 9 [facility] Repository (4 sources) Aztreonam; Translations: [ESTROGENS, CONJUGATED] Drug Allergy 9 [facility] Repository (1 source) heparin Drug Allergy [facility] Repository (5 sources) Penicillin; Translations: [PENICILLIN] Drug Allergy 9 [facility] Repository (1 source) Misc-ENV; Translations: [Misc-ENV] Propensity to adverse reactions (disorder) [facility] Repository (1 source) Estrogens, Conjugated (HALF-WAY) Drug Allergy 9 [facility] (4 sources) heparin; Translations: [HEPARIN (PORCINE)] Drug Allergy 9 [facility] (4 sources) pregabalin; Translations: [PREGABALIN] Drug Allergy 9 [facility] (3 sources) Other; Translations: [OTHER] Propensity to adverse reactions 1 [facility] (1 source) heparin; Translations: [HEPARIN SODIUM, PORCINE] Drug Allergy 1 [facility] Repository Medications Completed/Discontinued Medications Medication Drug Class(es) [...] systolic (congestive) heart failure] Onset: 07-28-2022 Chronic Diseases of white blood cells (2 sources) Elevated white blood cell count, unspecified; Translations: [Elevated white blood cell count, unspecified] Onset: 02-19-2023 Chronic Disorders of lipid metabolism (3 sources) [...] caused by tuberculosis or sexually transmitted disease) (4 sources) Osteomyelitis of forefoot; Translations: [Osteomyelitis, unspecified] [...] conditions (not mental disorders or infectious disease) (6 sources) Encounter for screening mammogram for malignant neoplasm of breast; Translations: [Elevated C-reactive protein (CRP)] Onset: 12-27-2022 Episodic Peripheral and visceral atherosclerosis [...] NEOPLSM OT GENIT ORGN] Onset: 01-02-2023 Episodic Skin and subcutaneous tissue infections (2 sources) Cellulitis of right lower limb; Translations: [Cellulitis of right lower limb] Onset: 01-11-2024 Episodic Superficial injury; contusion (2 sources) Contusion [...] Test Name Value Interpretation Reference Range Facility Follow-Upon 01-11-2024 Follow-Up [id number] Maximo Gill Kassy 1950 F Date Provider Department Center 01/11/2024 Herber-ANITA MONTES [facility] Family History Problem Relation Age of Onset Heart attack Father Diabetes Father Hypertension Father Coronary artery disease Father Rheum arthritis Father Family Status - Relation Status Age at Father Level of Service:96024 [place] OFFICE/OUTPATIENT ESTABLISHED MOD MDM 30 MIN Reason for Visit and Comments: PPD Read [[id number]] - Follow up Toes feel better Normal [facility] 36on 01-09-2024 36 Opat received. Call to [facility] and confirmed orders. Labs will be drawn 01/09. Staff was not aware of the appt today so the visit is rescheduled for 01/10. Normal [facility] CBC AND AUTO DIFFon 12-28-19 24 ABSOLUTE BASOPHIL 0.1 X10E9/L Normal 0.0-0.2 [facility] Comment on above: Performed By: #### U A #### [facility] ([id number]) [address] [place] [address] 01813 ABSOLUTE NEUTROPHIL 9.5 X10E9/L High 1.5-6.6 [facility] Comment on above: Performed By: #### U A #### [facility] ([id number]) [address] [place] [address] 30972 Basophils/100 WBC (Bld) 0.5 % Normal [facility] Comment on above: Performed By: #### U A #### [facility] ([id number]) [address] [place] [address] 74420 Eosinophils (Bld) [#/Vol] 0.8 10*3/uL High 0.0-0.4 [facility] Comment on above: Performed By: #### U A #### [facility] ([id number]) [address] [place] [address] 05314 Eosinophils/100 WBC (Bld) 5.8 % Normal [facility] Comment on above: Performed By: #### U A #### [facility] ([id number]) [address] [place] [address] 16959 Erythrocyte distribution width (RBC) [Ratio] 13.6 % Normal 11.5-15.0 [facility] Comment on above: Performed By: #### U A #### [facility] ([id number]) [address] [place] [address] 95671 Hematocrit (Bld) [Volume fraction] 35.5 % Normal 35-47 [facility] Comment on above: Performed By: #### U A #### [facility] ([id number]) [address] [place] [address] 13358 Hemoglobin (Bld) [Mass/Vol] 11.9 g/dL Normal 11.7-15.5 [facility] Comment on above: Performed By: #### U A #### [facility] ([id number]) [address] [place] [address] 70727 Lymphocytes (Bld) [#/Vol] 2.6 10*3/uL Normal 1.0-3.5 [facility] Comment on above: Performed By: #### U A #### [facility] ([id number]) [address] [place] [address] 02128 Lymphocytes/100 WBC (Bld) 19.1 % Normal [facility] Comment on above: Performed By: #### U A #### [facility] ([id number]) [address] [place] [address] 87161 MCH (RBC) [Entitic mass] 28.7 pg Normal 27-34 [facility] Comment on above: Performed By: #### U A #### [facility] ([id number]) [address] [place] [address] 55803 MCHC (RBC) [Mass/Vol] 33.4 g/dL Normal 32-36 [facility] Comment on above: Performed By: #### U A #### [facility] ([id number]) [address] [place] [address] 18980 MCV (RBC) [Entitic vol] 86 fL Normal 80-100 [facility] Comment on above: Performed By: #### U A #### [facility] ([id number]) [address] [place] [address] 61546 Monocytes (Bld) [#/Vol] 0.7 10*3/uL Normal 0-0.9 [facility] Comment on above: Performed By: #### U A #### [facility] ([id number]) [address] [place] [address] 40204 Monocytes/100 WBC (Bld) 5.3 % Normal [facility] Comment on above: Performed By: #### U A #### [facility] ([id number]) [address] [place] [address] 67465 Neutrophils/100 WBC (Bld) 69.3 % Normal [facility] Comment on above: Performed By: #### U A #### [facility] ([id number]) [address] [place] [address] 53897 Platelet mean volume (Bld) [Entitic vol] 8.7 fL Normal 7-12 [facility] Comment on above: Performed By: #### U A #### [facility] ([id number]) [address] [place] [address] 17650 Platelets (Bld) [#/Vol] 335 10*3/uL Normal 150-450 [facility] Comment on above: Performed By: #### U A #### [facility] ([id number]) [address] [place] [address] 06412 RBC COUNT 4.13 X10E12/L Normal 3.80-5.20 [facility] Comment on above: Performed By: #### U A #### [facility] ([id number]) [address] [place] [address] 39021 WBC (Bld) [#/Vol] 13.7 10*3/uL High 4.0-11.0 [facility] Comment on above: Performed By: #### U A #### [facility] ([id number]) [address] [place] [address] 62202 COMPREHENSIVE METABOLIC PANE Tyrone 12-28-2023 Albumin [Mass/Vol] 3.1 g/dL Low 3.2-5.3 [facility] Comment on above: Performed By: #### U A #### [facility] ([id number]) [address] [place] [address] 45898 ALP [Catalytic activity/Vol] 68 U/L Normal 39-130 [facility] Comment on above: Performed By: #### U A #### [facility] ([id number]) [address] [place] [address] 15494 ALT [Catalytic activity/Vol] 21 U/L Normal 0-31 [facility] Comment on above: Performed By: #### U A #### [facility] ([id number]) [address] [place] [address] 43870 Anion gap [Moles/Vol] 10 mmol/L Normal 5-15 [facility] Comment on above: Performed By: #### U A #### [facility] ([id number]) [address] [place] [address] 04723 AST [Catalytic activity/Vol] 21 U/L Normal 0-41 [facility] Comment on above: Performed By: #### U A #### [facility] ([id number]) [address] [place] [address] 21064 Bilirubin [Mass/Vol] 0.4 mg/dL Normal 0.3-1.2 [facility] Comment on above: Performed By: #### U A #### [facility] ([id number]) [address] [place] [address] 96378 Calcium [Mass/Vol] 8.6 mg/dL Normal 8.5-10.5 [facility] Comment on above: Performed By: #### U A #### [facility] ([id number]) [address] [place] [address] 47620 Chloride [Moles/Vol] 98 mmol/L Normal 98-109 [facility] Comment on above: Performed By: #### U A #### [facility] ([id number]) [address] [place] [address] 04870 CO2 [Moles/Vol] 31 mmol/L Normal 22-32 [facility] Comment on above: Performed By: #### U A #### [facility] ([id number]) [address] [place] [address] 01116 Creatinine [Mass/Vol] 0.72 mg/dL Normal 0.40-1.00 [facility] Comment on above: Result Comment: METH OD TRACEABLE TO IDMS STANDARD Performed By: #### U A #### [facility] ([id number]) [address] [place] [address] 38192 GFR/1.73 sq M.predicted among non-blacks MDRD (S/P/Bld) [Vol rate/Area] 89 mL/min/{1.73_m2} Normal >59 [facility] Comment on above: Result Comment: Reported eGFR is based on the CKD-EPI 1 equation that does not use a race coefficient. Performed By: #### U A #### [facility] ([id number]) [address] [place] [address] 52818 Glucose [Mass/Vol] 123 mg/dL High 65-99 [facility] Comment on above: Performed By: #### U A #### [facility] ([id number]) [address] [place] [address] 87644 Potassium [Moles/Vol] 3.7 mmol/L Normal 3.5-5.0 [facility] Comment on above: Performed By: #### U A #### [facility] ([id number]) [address] [place] [address] 29101 Protein [Mass/Vol] 7.1 g/dL Normal 6.0-8.0 [facility] Comment on above: Performed By: #### U A #### [facility] ([id number]) [address] [place] [address] 78345 Sodium [Moles/Vol] 139 mmol/L Normal 134-146 [facility] Comment on above: Performed By: #### U A #### [facility] ([id number]) [address] [place] [address] 14315 Urea nitrogen [Mass/Vol] 16 mg/dL Normal 5-27 [facility] Comment on above: Performed By: #### U A #### [facility] ([id number]) [address] [place] [address] 49877 MAGNESIUMon 12-28-2023 Magnesium [Mass/Vol] 2.3 mg/dL Normal 1.8-2.6 [facility] Comment on above: Performed By: #### U A #### [facility] ([id number]) [address] [place] [address] 25135 PROTIME AND INRon 12-28-2023 INR Coag (PPP) [Relative time] 2.5 {INR} High 0.8-1.1 [facility] Comment on above: Performed By: #### U A #### [facility] ([id number]) [address] [place] [address] 81786 PT Coag (PPP) [Time] 28.0 s High 9.8-13.2 [facility] Comment on above: Result Comment: NEW REFERENCE RANGE Performed By: #### U A #### [facility] ([id number]) [address] [place] [address] 09601 Vancomycin trough [Mass/Vol] on 12-28-2023 VANCOMYCIN TROUGH 26.7 ug/mL Critically high 5.0-20.0 [facility] Comment on above: Performed By: #### U A #### [facility] ([id number]) [address] [place] [address] 53346 CBC AND AUTO DIFFon 12-27-19 24 ABSOLUTE BASOPHIL 0.0 X10E9/L Normal 0.0-0.2 [facility] Comment on above: Performed By: #### Chanel ERICKSON CMP, 1988-02 #### [facility] ([id number]) [address] [place] [address] 70462 #### [id number] #### [facility] ([id number]) [address], [address] [place] [address] ABSOLUTE NEUTROPHIL 8.9 X10E9/L High 1.5-6.6 [facility] Comment on above: Performed By: #### Chanel ERICKSON CMP, 1988-02 #### [facility] ([id number]) [address] [place] [address] 97598 #### [id number] #### [facility] ([id number]) [address] [address] [facility], [address] [place] [address] Basophils/100 WBC (Bld) 0.3 % Normal [facility] Comment on above: Performed By: #### Chanel ERICKSON CMP, 1988-02 #### [facility] ([id number]) [address] [place] [address] 77193 #### 38685-2 #### [facility] ([id number]) [address], [address] [place] [address] Eosinophils (Bld) [#/Vol] 0.8 10*3/uL High 0.0-0.4 [facility] Comment on above: Performed By: #### Chanel ERICKSON CMP, 1988-02 #### [facility] ([id number]) [address] [place] [address] 04408 #### 28567-7 #### [facility] ([id number]) [address], [address] [place] [address] Eosinophils/100 WBC (Bld) 6.1 % Normal [facility] Comment on above: Performed By: #### Chanel ERICKSON CMP, 1988-02 #### [facility] ([id number]) [address] [place] [address] 45308 #### 78208-7 #### [facility] ([id number]) [address], [address] [place] [address] Erythrocyte distribution width (RBC) [Ratio] 13.7 % Normal 11.5-15.0 [facility] Comment on above: Performed By: #### Chanel ERICKSON CMP, 1988-02 #### [facility] ([id number]) [address] [place] [address] 62115 #### 46778-5 #### [facility] ([id number]) [address], [address] [place] [address] Hematocrit (Bld) [Volume fraction] 34.5 % Low 35-47 [facility] Comment on above: Performed By: #### Chanel ERICKSON CMP, 1988-02 #### [facility] ([id number]) [address] [place] [address] 48107 #### 09924-8 #### [facility] ([id number]) [address], [address] [place] [address] Hemoglobin (Bld) [Mass/Vol] 11.5 g/dL Low 11.7-15.5 [facility] Comment on above: Performed By: #### Chanel ERICKSON CMP, 1988-02 #### [facility] ([id number]) [address] [place] [address] 93022 #### 53129-9 #### [facility] ([id number]) [address], [address] [place] [address] Lymphocytes (Bld) [#/Vol] 2.4 10*3/uL Normal 1.0-3.5 [facility] Comment on above: Performed By: #### Chanel [facility]ICKSON [facility], 1988-02 #### [facility] ([id number]) [address] [place] [address] 31579 #### 53074-4 #### [facility] ([id number]) [address], [address] [place] [address] Lymphocytes/100 WBC (Bld) 18.4 % Normal [facility] Comment on above: Performed By: #### Chanel ERICKSON [facility], 1988-02 #### [facility] ([id number]) [address] [place] [address] 53316 #### 51932-4 #### [facility] ([id number]) [address], [address] [place] [address] MCH (RBC) [Entitic mass] 28.8 pg Normal 27-34 [facility] Comment on above: Performed By: #### Chanel ERICKSON CMP, 1988-02 #### [facility] ([id number]) [address] [place] [address] 59220 #### 47318-2 #### [facility] ([id number]) [address], [address] [place] [address] MCHC (RBC) [Mass/Vol] 33.3 g/dL Normal 32-36 [facility] Comment on above: Performed By: #### Chanel ERICKSON CMP, 1988-02 #### [facility] ([id number]) [address] [place] [address] 32790 #### 17520-0 #### [facility] ([id number]) [address], [address] [place] [address] MCV (RBC) [Entitic vol] 87 fL Normal 80-100 [facility] Comment on above: Performed By: #### Chanel ERICKSON CMP, 1988-02 #### [facility] ([id number]) [address] [place] [address] 18889 #### 25492-8 #### [facility] ([id number]) [address], [address] [place] [address] Monocytes (Bld) [#/Vol] 0.9 10*3/uL Normal 0-0.9 [facility] Comment on above: Performed By: #### Chanel ERICKSON [facility], 1988-02 #### [facility] ([id number]) [address] [place] [address] 16191 #### 76036-3 #### [facility] ([id number]) [address], [address] [place] [address] Monocytes/100 WBC (Bld) 7.1 % Normal [facility] Comment on above: Performed By: #### Chanel ERICKSON CMP, 1988-02 #### [facility] ([id number]) [address] [place] [address] 24564 #### 97504-3 #### [facility] ([id number]) [address], [address] [place] [address] Neutrophils/100 WBC (Bld) 68.1 % Normal [facility] Comment on above: Performed By: #### Chanel BCA, CMP, 1988-02 #### [facility] ([id number]) [address] [place] [address] 18632 #### 54216-8 #### [facility] ([id number]) [address] [place] [address] Platelet mean volume (Bld) [Entitic vol] 8.7 fL Normal 7-12 [facility] Comment on above: Performed By: #### Chanel ERICKSON, CMP, 1988-02 #### [facility] ([id number]) [address] [place] [address] 97336 #### 12576-8 #### [facility] ([id number]) [address], [address] [place] [address] Platelets (Bld) [#/Vol] 323 10*3/uL Normal 150-450 [facility] Comment on above: Performed By: #### Chanel ERICKSON, CMP, 1988-02 #### [facility] ([id number]) [address] [place] [address] 02033 #### 99710-1 #### [facility] ([id number]) [address] [place] [address] RBC COUNT 3.98 X10E12/L Normal 3.80-5.20 [facility] Comment on above: Performed By: #### Cahnel ERICKSON, CMP, 1988-02 #### [facility] ([id number]) [address] [place] [address] 50377 #### 21025-1 #### [facility] ([id number]) [address] [place] [address] WBC (Bld) [#/Vol] 13.1 10*3/uL High 4.0-11.0 [facility] Comment on above: Performed By: #### C BCA, CMP, 1988-02 #### [facility] ([id number]) [address] [place] [address] 66084 #### 41713-7 #### [facility] ([id number]) [address] [place] [address] COMPREHENSIVE METABOLIC PANE Tyrone 12-27-2023 Albumin [Mass/Vol] 3.0 g/dL Low 3.2-5.3 [facility] Comment on above: Performed By: #### C BCA, CMP, 1988-02 #### [facility] ([id number]) [address] [place] [address] 99667 #### 44156-9 #### [facility] ([id number]) [address], [address] [place] [address] ALP [Catalytic activity/Vol] 68 U/L Normal 39-130 [facility] Comment on above: Performed By: #### C BCA, CMP, 1988-02 #### [facility] ([id number]) [address] [place] [address] 19188 #### 55389-1 #### [facility] ([id number]) [address], [address] [place] [address] ALT [Catalytic activity/Vol] 17 U/L Normal 0-31 [facility] Comment on above: Performed By: #### C BCA, CMP, 1988-02 #### [facility] ([id number]) [address] [place] [address] 39743 #### 94383-7 #### [facility] ([id number]) [address] [place] [address] Anion gap [Moles/Vol] 8 mmol/L Normal 5-15 [facility] Comment on above: Performed By: #### C BCA, CMP, 1988-02 #### [facility] ([id number]) [address] [place] [address] 87224 #### 06205-2 #### [facility] ([id number]) [address], [address] [place] [address] AST [Catalytic activity/Vol] 16 U/L Normal 0-41 [facility] Comment on above: Performed By: #### Chanel ERICKSON [facility], 1988-02 #### [facility] ([id number]) [address] [place] [address] 52053 #### 86570-0 #### [facility] ([id number]) [address] [facility], [address] [place] [address] Bilirubin [Mass/Vol] 0.5 mg/dL Normal 0.3-1.2 [facility] Comment on above: Performed By: #### Chanel ERICKSON [facility], 1988-02 #### [facility] ([id number]) [address] [place] [address] 54914 #### 52379-1 #### [facility] ([id number]) [address] [place] [address] Calcium [Mass/Vol] 8.3 mg/dL Low 8.5-10.5 [facility] Comment on above: Performed By: #### Chanel ERICKSON [facility], 1988-02 #### [facility] ([id number]) [address] [place] [address] 06675 #### 09840-0 #### [facility] ([id number]) [address] [place] [address] Chloride [Moles/Vol] 99 mmol/L Normal 98-109 [facility] Comment on above: Performed By: #### Chanel BCA, CMP, 1988-02 #### [facility] ([id number]) [address] [place] [address] 52628 #### 78206-0 #### [facility] ([id number]) [address], [address] [place] [address] CO2 [Moles/Vol] 31 mmol/L Normal 22-32 [facility] Comment on above: Performed By: #### Chanel ERICKSON CMP, 1986-02 #### [facility] ([id number]) [address] [place] [address] #### [id number] #### [facility] ([id number]) [address] [place] [address], [address] [place] [address] Creatinine [Mass/Vol] 0.71 mg/dL Normal 0.40-1.00 [facility] Comment on above: Result Comment: METH OD TRACEABLE TO IDMS STANDARD Performed By: #### Chanel ERICKSON CMP, 1986-02 #### [facility] ([id number]) [address] [place] [address] #### [id number] #### [facility] ([id number]) [address] [place] [address], [address] [place] [address] eGFR (CKD-EPI) NON-RACE DEPENDENT >90 Normal >59 [facility] Comment on above: Result Comment: Reported eGFR is based on the CKD-EPI 2020 equation that does not use a race coefficient. Performed By: #### Chanel ERICKSON CMP, 1986-02 #### [facility] ([id number]) [address] [place] [address] #### [id number] #### [facility] ([id number]) [facility] [facility], [address] [place] [address] Glucose [Mass/Vol] 119 mg/dL High 65-99 [facility] Comment on above: Performed By: #### Chanel ERICKSON CMP, 1986-02 #### [facility] ([id number]) [address] [place] [id number] #### [id number] #### [facility] ([id number]) [address], [address] [place] [address] Potassium [Moles/Vol] 3.6 mmol/L Normal 3.5-5.0 [facility] Comment on above: Performed By: #### Chanel ERICKSON CMP, 1988-02 #### [facility] ([id number]) [address] [place] [address] 47054 #### [id number] #### [facility] ([id number]) [address], [address] [place] [address] Protein [Mass/Vol] 7.0 g/dL Normal 6.0-8.0 [facility] Comment on above: Performed By: #### Chanel ERICKSON CMP, 1988-02 #### [facility] ([id number]) [address] [place] [address] 64995 #### [id number] #### [facility] ([id number]) [address], [address] [place] [address] Sodium [Moles/Vol] 138 mmol/L Normal 134-146 [facility] Comment on above: Performed By: #### Chanel ERICKSON, CMP, 1988-02 #### [facility] ([id number]) [address] [place] [address] 89477 #### [id number] #### [facility] ([id number]) [address], [address] [place] [address] Urea nitrogen [Mass/Vol] 18 mg/dL Normal 5-27 [facility] Comment on above: Performed By: #### C BCA, CMP, 1988-02 #### [facility] ([id number]) [address] [place] [address] 00904 #### 15121-8 #### [facility] ([id number]) [address], [address] [place] [address] Glucose Glucometer (BldC) [M ass/Vol]on 12-27-2023 Glucose [Mass/Vol] 149 mg/dL High 65-99 [facility] Glucose [Mass/Vol] 156 mg/dL High 65-99 [facility] Glucose [Mass/Vol] 181 mg/dL High 65-99 [facility] MAGNESIUMon 12-27-2023 Magnesium [Mass/Vol] 2.3 mg/dL Normal 1.8-2.6 [facility] Comment on above: Performed By: #### U A #### [facility] ([id number]) [address] [place] [address] PROTIME AND INRon 12-27-2023 INR Coag (PPP) [Relative time] 2.9 {INR} High 0.8-1.1 [facility] Comment on above: Performed By: #### C DRE [facility], 1988-02 #### [facility] ([id number]) [address] [place] [address] 12709 #### [id number] #### [facility] ([id number]) [address], [address] [place] [address] PT Coag (PPP) [Time] 32.6 s High 9.8-13.2 [facility] Comment on above: Result Comment: NEW REFERENCE RANGE Performed By: #### Chanel ERICKSON CMP, 1988-02 #### [facility] ([id number]) [address] [place] [address] 30890 #### [id number] #### [facility] ([id number]) [address], [address] [place] [address] CBC AND AUTO DIFFon 12-26-19 24 ABSOLUTE BASOPHIL 0.1 X10E9/L Normal 0.0-0.2 [facility] Comment on above: Performed By: #### Chanel ERICKSON CMP, 1988-02 #### [facility] ([id number]) [address] [place] [address] 74211 #### 38953-1 #### [facility] ([id number]) [address], [address] [place] [address] ABSOLUTE NEUTROPHIL 11.1 X10E9/L High 1.5-6.6 [facility] Comment on above: Performed By: #### Chanel ERICKSON, CMP, 1988-02 #### [facility] ([id number]) [address] [place] [address] 39665 #### 68443-2 #### [facility] ([id number]) [address] [place] [address] Basophils/100 WBC (Bld) 0.4 % Normal [facility] Comment on above: Performed By: #### Chanel ERICKSON CMP, 1988-02 #### [facility] ([id number]) [address] [place] [address] 55202 #### 69774-7 #### [facility] ([id number]) [address], [address] [place] [address] Eosinophils (Bld) [#/Vol] 0.8 10*3/uL High 0.0-0.4 [facility] Comment on above: Performed By: #### Chanel ERICKSON, CMP, 1988-02 #### [facility] ([id number]) [address] [place] [address] 77940 #### 04073-9 #### [facility] ([id number]) [address], [address] [place] [address] Eosinophils/100 WBC (Bld) 5.4 % Normal [facility] Comment on above: Performed By: #### Chanel ERICKSON, [facility], 1988-02 #### [facility] ([id number]) [address] [place] [address] 25877 #### 32915-2 #### [facility] ([id number]) [address], [address] [place] [address] Erythrocyte distribution width (RBC) [Ratio] 13.9 % Normal 11.5-15.0 [facility] Comment on above: Performed By: #### Chanel ERICKSON, [facility], 1988-02 #### [facility] ([id number]) [address] [place] [address] 28563 #### 22836-7 #### [facility] ([id number]) [address], [address] [place] [address] Hematocrit (Bld) [Volume fraction] 35.9 % Normal 35-47 [facility] Comment on above: Performed By: #### Chanel ERICKSON [facility], 1988-02 #### [facility] ([id number]) [address] [place] [address] 95484 #### 81107-3 #### [facility] ([id number]) [address], [address] [place] [address] Hemoglobin (Bld) [Mass/Vol] 11.7 g/dL Normal 11.7-15.5 [facility] Comment on above: Performed By: #### Chanel ERICKSON, [facility], 1988-02 #### [facility] ([id number]) [address] [place] [address] 64404 #### 93145-5 #### [facility] ([id number]) [address], [address] [place] [address] Lymphocytes (Bld) [#/Vol] 2.6 10*3/uL Normal 1.0-3.5 [facility] Comment on above: Performed By: #### Chanel ERICKSON CMP, 1988-02 #### [facility] ([id number]) [address] [place] [address] 46056 #### 86221-0 #### [facility] ([id number]) [address], [address] [place] [address] Lymphocytes/100 WBC (Bld) 16.6 % Normal [facility] Comment on above: Performed By: #### Chanel EIRCKSON [facility], 1988-02 #### [facility] ([id number]) [address] [place] [address] 69044 #### 25869-2 #### [facility] ([id number]) [address], [address] [place] [address] MCH (RBC) [Entitic mass] 28.2 pg Normal 27-34 [facility] Comment on above: Performed By: #### Chanel ERICKSON [facility], 1988-02 #### [facility] ([id number]) [address] [place] [address] 48848 #### 98203-7 #### [facility] ([id number]) [address], [address] [place] [address] MCHC (RBC) [Mass/Vol] 32.7 g/dL Normal 32-36 [facility] Comment on above: Performed By: #### Chanel ERICKSON CMP, 1988-02 #### [facility] ([id number]) [address] [place] [address] 16272 #### 76349-5 #### [facility] ([id number]) [address], [address] [place] [address] MCV (RBC) [Entitic vol] 86 fL Normal 80-100 [facility] Comment on above: Performed By: #### Chanel ERICKSON CMP, 1988-02 #### [facility] ([id number]) [address] [place] [address] 48086 #### 11536-2 #### [facility] ([id number]) [address], [address] [place] [address] Monocytes (Bld) [#/Vol] 0.9 10*3/uL Normal 0-0.9 [facility] Comment on above: Performed By: #### Chanel ERICKSON CMP, 1988-02 #### [facility] ([id number]) [address] [place] [address] 10886 #### 40818-5 #### [facility] ([id number]) [address] [facility], [address] [place] [address] Monocytes/100 WBC (Bld) 5.9 % Normal [facility] Comment on above: Performed By: #### Chanel ERICKSON CMP, 1988-02 #### [facility] ([id number]) [address] [place] [address] 05399 #### 50574-9 #### [facility] ([id number]) [address] [facility], [address] [place] [address] Neutrophils/100 WBC (Bld) 71.7 % Normal [facility] Comment on above: Performed By: #### Chanel ERICKSON CMP, 1988-02 #### [facility] ([id number]) [address] [place] [address] 26117 #### 67177-8 #### [facility] ([id number]) [address] [place] [address] Platelet mean volume (Bld) [Entitic vol] 8.6 fL Normal 7-12 [facility] Comment on above: Performed By: #### Chanel ERICKSON CMP, 1988-02 #### [facility] ([id number]) [address] [place] [address] 29841 #### 89398-0 #### [facility] ([id number]) [address] [facility], [address] [place] [address] Platelets (Bld) [#/Vol] 338 10*3/uL Normal 150-450 [facility] Comment on above: Performed By: #### Chanel ERICKSON CMP, 1988-02 #### [facility] ([id number]) [address] [place] [address] 26828 #### 75248-4 #### [facility] ([id number]) [address] [place] [address], [address] [place] [address] RBC COUNT 4.16 X10E12/L Normal 3.80-5.20 [facility] Comment on above: Performed By: #### Chanel ERICKSON CMP, 1988-02 #### [facility] ([id number]) [address] [place] [address] 66610 #### 99079-8 #### [facility] ([id number]) [address] [place] [address], [address] [place] [address] WBC (Bld) [#/Vol] 15.5 10*3/uL High 4.0-11.0 [facility] Comment on above: Performed By: #### Chanel ERICKSON CMP, 1988-02 #### [facility] ([id number]) [address] [place] [address] 37528 #### 27244-4 #### [facility] ([id number]) [address] [place] [address], [address] [place] [address] COMPREHENSIVE METABOLIC PANE Tyrone 12-26-2023 Albumin [Mass/Vol] 3.2 g/dL Normal 3.2-5.3 [facility] Comment on above: Performed By: #### Chanel ERICKSON CMP, 1988-02 #### [facility] ([id number]) [address] [place] [address] 89856 #### 53903-1 #### [facility] ([id number]) [address] [place] [address] ALP [Catalytic activity/Vol] 69 U/L Normal 39-130 [facility] Comment on above: Performed By: #### Chanel ERICKSON CMP, 1988-02 #### [facility] ([id number]) [address] [place] [address] 20149 #### 39963-7 #### [facility] ([id number]) [address], [address] [place] [address] ALT [Catalytic activity/Vol] 16 U/L Normal 0-31 [facility] Comment on above: Performed By: #### Chanel ERICKSON CMP, 1988-02 #### [facility] ([id number]) [address] [place] [address] 03583 #### 74370-0 #### [facility] ([id number]) [address], [address] [place] [address] Anion gap [Moles/Vol] 10 mmol/L Normal 5-15 [facility] Comment on above: Performed By: #### Chanel ERICKSON CMP, 1988-02 #### [facility] ([id number]) [address] [place] [address] 21201 #### 29133-1 #### [facility] ([id number]) [address], [address] [place] [address] AST [Catalytic activity/Vol] 17 U/L Normal 0-41 [facility] Comment on above: Performed By: #### Chanel ERICKSON CMP, 1988-02 #### [facility] ([id number]) [address] [place] [address] 03435 #### 76770-5 #### [facility] ([id number]) [address] [place] [address] Bilirubin [Mass/Vol] 0.4 mg/dL Normal 0.3-1.2 [facility] Comment on above: Performed By: #### Chanel ERICKSON [facility], 1988-02 #### [facility] ([id number]) [address] [place] [address] 52602 #### 23340-8 #### [facility] ([id number]) [address], [address] [place] [address] Calcium [Mass/Vol] 8.7 mg/dL Normal 8.5-10.5 [facility] Comment on above: Performed By: #### Chanel ERICKSON [facility], 1988-02 #### [facility] ([id number]) [address] [place] [address] 24113 #### 99703-4 #### [facility] ([id number]) [address], [address] [place] [address] Chloride [Moles/Vol] 98 mmol/L Normal 98-109 [facility] Comment on above: Performed By: #### Chanel ERICKSON [facility], 1988-02 #### [facility] ([id number]) [address] [place] [address] 58973 #### 02183-4 #### [facility] ([id number]) [address], [address] [place] [address] CO2 [Moles/Vol] 31 mmol/L Normal 22-32 [facility] Comment on above: Performed By: #### Chanel ERICKSON [facility], 1988-02 #### [facility] ([id number]) [address] [place] [address] 73816 #### 10542-4 #### [facility] ([id number]) [address] [place] [address] Creatinine [Mass/Vol] 0.78 mg/dL Normal 0.40-1.00 [facility] Comment on above: Result Comment: METH OD TRACEABLE TO IDMS STANDARD Performed By: #### C SEAN ERICKSON, 1988-02 #### [facility] ([id number]) [address] [place] [address] 09737 #### 67354-4 #### [facility] ([id number]) [address], [address] [place] [address] GFR/1.73 sq M.predicted among non-blacks MDRD (S/P/Bld) [Vol rate/Area] 81 mL/min/{1.73_m2} Normal >59 [facility] Comment on above: Result Comment: Reported eGFR is based on the CKD-EPI 2020 equation that does not use a race coefficient. Performed By: #### Chanel ERICKSON CMP, 1988-02 #### [facility] ([id number]) [address] [place] [address] 28596 #### 62106-9 #### [facility] ([id number]) [address], [address] [place] [address] Glucose [Mass/Vol] 129 mg/dL High 65-99 [facility] Comment on above: Performed By: #### Chanel ERICKSON CMP, 1988-02 #### [facility] ([id number]) [address] [place] [address] 55581 #### 33519-8 #### [facility] ([id number]) [address], [address] [place] [address] Potassium [Moles/Vol] 3.8 mmol/L Normal 3.5-5.0 [facility] Comment on above: Performed By: #### Chanel ERICKSON CMP, 1988-02 #### [facility] ([id number]) [address] [place] [address] 12238 #### 89028-9 #### [facility] ([id number]) [address], [address] [place] [address] Protein [Mass/Vol] 7.3 g/dL Normal 6.0-8.0 [facility] Comment on above: Performed By: #### Chanel ERICKSON CMP, 1988-02 #### [facility] ([id number]) [address] [place] [address] 78045 #### 15323-8 #### [facility] ([id number]) [address] [facility], [address] [place] [address] Sodium [Moles/Vol] 139 mmol/L Normal 134-146 [facility] Comment on above: Performed By: #### Chanel ERICKSON [facility], 1988-02 #### [facility] ([id number]) [address] [place] [address] 29977 #### 07741-7 #### [facility] ([id number]) [address] [facility], [address] [place] [address] Urea nitrogen [Mass/Vol] 19 mg/dL Normal 5-27 [facility] Comment on above: Performed By: #### Chanel ERICKSON [facility], 1988-02 #### [facility] ([id number]) [address] [place] [address] 37651 #### 32302-5 #### [facility] ([id number]) [address] [place] [address] Glucose Glucometer (BldC) [M ass/Vol]on 12-26-2023 Glucose [Mass/Vol] 146 mg/dL High 65-99 [facility] Glucose [Mass/Vol] 182 mg/dL High 65-99 [facility] Glucose [Mass/Vol] 108 mg/dL High 65-99 [facility] MAGNESIUMon 12-26-2023 Magnesium [Mass/Vol] 2.3 mg/dL Normal 1.8-2.6 [facility] Comment on above: Performed By: #### C DRE, [facility], [facility]- #### [facility] ([id number]) [address] [facility], [place] [address] #### 24348-9 #### [facility] ([id number]) [address], [address] [place] [address] MR FOOT RT W WO CONTon 12-25 [...] Alberto MD on 12/26/2023 12:57 PM Normal [facility] PROTIME AND INRon 12-26-2023 INR Coag (PPP) [Relative time] 3.0 {INR} High 0.8-1.1 [facility] Comment on above: Performed By: #### Chanel ERICKSON CMP, 1988-02 #### [facility] ([id number]) [address] [place] [address] 05722 #### 77033-9 #### [facility] ([id number]) [address], [address] [place] [address] PT Coag (PPP) [Time] 33.3 s High 9.8-13.2 [facility] Comment on above: Result Comment: NEW REFERENCE RANGE Performed By: #### Chanel ERICKSON [facility], 1988-02 #### [facility] ([id number]) [address] [place] [address] 02812 #### 34455-1 #### [facility] ([id number]) [address], [address] [place] [address] Vancomycin trough [Mass/Vol] on 12-26-2023 VANCOMYCIN TROUGH 11.6 ug/mL Normal 5.0-20.0 [facility] Comment on above: Performed By: #### Chanel ERICKSON [facility], 1988-02 #### [facility] ([id number]) [address] [place] [address] 70953 #### 52036-6 #### [facility] ([id number]) [address], [address] [place] [address] CBC AND AUTO DIFFon 12-25-19 24 ABSOLUTE BASOPHIL 0.1 X10E9/L Normal 0.0-0.2 [facility] Comment on above: Performed By: #### Chanel ERICKSON [facility], 1988-02 #### [facility] ([id number]) [address] [place] [address] 25733 #### 79426-3 #### [facility] ([id number]) [address], [address] [place] [address] ABSOLUTE NEUTROPHIL 9.4 X10E9/L High 1.5-6.6 [facility] Comment on above: Performed By: #### Chanel ERICKSON, [facility], 1988-02 #### [facility] ([id number]) [address] [place] [address] 02060 #### 14929-1 #### [facility] ([id number]) [address], [address] [place] [address] Basophils/100 WBC (Bld) 0.4 % Normal [facility] Comment on above: Performed By: #### C DRE, [facility], 1988-02 #### [facility] ([id number]) [address] [place] [address] 52687 #### 80959-7 #### [facility] ([id number]) [address], [address] [place] [address] Eosinophils (Bld) [#/Vol] 0.7 10*3/uL High 0.0-0.4 [facility] Comment on above: Performed By: #### Chanel ERICKSON, [facility], 1988-02 #### [facility] ([id number]) [address] [place] [address] 97745 #### 07954-6 #### [facility] ([id number]) [address], [address] [place] [address] Eosinophils/100 WBC (Bld) 5.3 % Normal [facility] Comment on above: Performed By: #### Chanel ERICKSON, [facility], 1988-02 #### [facility] ([id number]) [address] [place] [address] 84001 #### 40637-3 #### [facility] ([id number]) [address] [place] [address] Erythrocyte distribution width (RBC) [Ratio] 13.7 % Normal 11.5-15.0 [facility] Comment on above: Performed By: #### C [facility], [facility], 1988-02 #### [facility] ([id number]) [address] [place] [address] 78016 #### 68142-2 #### [facility] ([id number]) [address], [address] [place] [address] Hematocrit (Bld) [Volume fraction] 37.8 % Normal 35-47 [facility] Comment on above: Performed By: #### Chanel ERICKSON, [facility], 1988-02 #### [facility] ([id number]) [address] [place] [address] 73857 #### 87787-9 #### [facility] ([id number]) [address], [address] [place] [address] Hemoglobin (Bld) [Mass/Vol] 12.6 g/dL Normal 11.7-15.5 [facility] Comment on above: Performed By: #### Chanel ERICKSON [facility], 1988-02 #### [facility] ([id number]) [address] [place] [address] 57646 #### 61940-4 #### [facility] ([id number]) [address], [address] [place] [address] Lymphocytes (Bld) [#/Vol] 2.4 10*3/uL Normal 1.0-3.5 [facility] Comment on above: Performed By: #### Chanel ERICKSON CMP, 1988-02 #### [facility] ([id number]) [address] [place] [address] 40913 #### 17337-0 #### [facility] ([id number]) [address] [place] [address] Lymphocytes/100 WBC (Bld) 17.5 % Normal [facility] Comment on above: Performed By: #### Chanel ERICKSON CMP, 1988-02 #### [facility] ([id number]) [address] [place] [address] 61608 #### 19820-2 #### [facility] ([id number]) [address] [facility], [address] [place] [address] MCH (RBC) [Entitic mass] 28.8 pg Normal 27-34 [facility] Comment on above: Performed By: #### Chanel [facility], 1988-02 #### [facility] ([id number]) [address] [place] [id number] #### [id number] #### [facility] ([id number]) [address] [facility], [address] [place] [address] MCHC (RBC) [Mass/Vol] 33.4 g/dL Normal 32-36 [facility] Comment on above: Performed By: #### hCanel [facility], 1988-02 #### [facility] ([id number]) [address] [place] [address]19 #### [id number] #### [facility] ([id number]) [address] [facility], [address] [place] [address] MCV (RBC) [Entitic vol] 86 fL Normal 80-100 [facility] Comment on above: Performed By: #### Chanel ERICKSON CMP, 1988-02 #### [facility] ([id number]) [address] [place] [address]3500 #### [id number] #### [facility] ([id number]) [address] [facility], [address] [place] [address] Monocytes (Bld) [#/Vol] 1.1 10*3/uL High 0-0.9 [facility] Comment on above: Performed By: #### Chanel ERICKSON CMP, 1988-02 #### [facility] ([id number]) [address] [place] [address]22 #### [id number] #### [facility] ([id number]) [address], [address] [place] [address] Monocytes/100 WBC (Bld) 8.0 % Normal [facility] Comment on above: Performed By: #### Chanel ERICKSON CMP, 1988-02 #### [facility] ([id number]) [address] [place] [address] 41413 #### [id number] #### [facility] ([id number]) [address], [address] [place] [address] Neutrophils/100 WBC (Bld) 68.8 % Normal [facility] Comment on above: Performed By: #### Chanel ERICKSON CMP, 1988-02 #### [facility] ([id number]) [address] [place] [address]20 #### [id number] #### [facility] ([id number]) [address], [address] [place] [address] Platelet mean volume (Bld) [Entitic vol] 8.4 fL Normal 7-12 [facility] Comment on above: Performed By: #### Chanel ERICKSON CMP, 1988-02 #### [facility] ([id number]) [address] [place] [address]7780 #### [id number] #### [facility] ([id number]) [address], [address] [place] [address] Platelets (Bld) [#/Vol] 321 10*3/uL Normal 150-450 [facility] Comment on above: Performed By: #### Chanel ERICKSON CMP, 1988-02 #### [facility] ([id number]) [address] [place] [address] 46936 #### [id number] #### [facility] ([id number]) [address] [facility], [address] [place] [address] RBC COUNT 4.38 X10E12/L Normal 3.80-5.20 [facility] Comment on above: Performed By: #### Chanel BCA, CMP, 1988-02 #### [facility] ([id number]) [address] [place] [address]1103 #### [id number] #### [facility] ([id number]) [address] [facility], [address] [place] [address] WBC (Bld) [#/Vol] 13.7 10*3/uL High 4.0-11.0 [facility] Comment on above: Performed By: #### Chanel ERICKSON CMP, 1988-02 #### [facility] ([id number]) [address] [place] [address] 17979 #### [id number] #### [facility] ([id number]) [address] [place] [address], [address] [place] [address] COMPREHENSIVE METABOLIC PANE Tyrone 12-25-2023 Albumin [Mass/Vol] 3.3 g/dL Normal 3.2-5.3 [facility] Comment on above: Performed By: #### Chanel BCA CMP, 1988-02 #### [facility] ([id number]) [address] [place] [address] 19629 #### 57012-5 #### [facility] ([id number]) [facility], [address] [place] [address] ALP [Catalytic activity/Vol] 66 U/L Normal 39-130 [facility] Comment on above: Performed By: #### C BCA, CMP, 1988-02 #### [facility] ([id number]) [address] [place] [address] 34759 #### 20684-2 #### [facility] ([id number]) [address], [address] [place] [address] ALT [Catalytic activity/Vol] 16 U/L Normal 0-31 [facility] Comment on above: Performed By: #### Chanel ERICKSON CMP, 1988-02 #### [facility] ([id number]) [address] [place] [address] 92052 #### 77672-4 #### [facility] ([id number]) [address], [address] [place] [address] Anion gap [Moles/Vol] 10 mmol/L Normal 5-15 [facility] Comment on above: Performed By: #### Chanel ERICKSON [facility], 1988-02 #### [facility] ([id number]) [address] [place] [address] 04063 #### 04266-9 #### [facility] ([id number]) [address], [address] [place] [address] AST [Catalytic activity/Vol] 17 U/L Normal 0-41 [facility] Comment on above: Performed By: #### Chanel ERICKSON [facility], 1988-02 #### [facility] ([id number]) [address] [place] [address] 76927 #### 65995-7 #### [facility] ([id number]) [address], [address] [place] [address] Bilirubin [Mass/Vol] 0.5 mg/dL Normal 0.3-1.2 [facility] Comment on above: Performed By: #### Chanel ERICKSON CMP, 1988-02 #### [facility] ([id number]) [address] [place] [address] 19766 #### 44131-4 #### [facility] ([id number]) [address], [address] [place] [address] Calcium [Mass/Vol] 8.9 mg/dL Normal 8.5-10.5 [facility] Comment on above: Performed By: #### Chanel ERICKSON CMP, 1988-02 #### [facility] ([id number]) [address] [place] [address] 46541 #### 39347-8 #### [facility] ([id number]) [address] [facility], [address] [place] [address] Chloride [Moles/Vol] 98 mmol/L Normal 98-109 [facility] Comment on above: Performed By: #### Chanel ERICKSON CMP, 1988-02 #### [facility] ([id number]) [address] [place] [address] 11109 #### 51844-4 #### [facility] ([id number]) [address] [facility], [address] [place] [address] CO2 [Moles/Vol] 31 mmol/L Normal 22-32 [facility] Comment on above: Performed By: #### Chanel ERICKSON CMP, 1988-02 #### [facility] ([id number]) [address] [place] [address] 76685 #### 13793-7 #### [facility] ([id number]) [address] [facility], [address] [place] [address] Creatinine [Mass/Vol] 0.78 mg/dL Normal 0.40-1.00 [facility] Comment on above: Result Comment: METH OD TRACEABLE TO IDMS STANDARD Performed By: #### Chanel ERICKSON CMP, 1988-02 #### [facility] ([id number]) [address] [place] [address] 44391 #### 27074-9 #### [facility] ([id number]) [address] [facility], [address] [place] [address] GFR/1.73 sq M.predicted among non-blacks MDRD (S/P/Bld) [Vol rate/Area] 81 mL/min/{1.73_m2} Normal >59 [facility] Comment on above: Result Comment: Reported eGFR is based on the CKD-EPI 2020 equation that does not use a race coefficient. Performed By: #### Chanel ERICKSON CMP, 1988-02 #### [facility] ([id number]) [address] [place] [address] 66050 #### 51079-7 #### [facility] ([id number]) [address], [address] [place] [address] Glucose [Mass/Vol] 125 mg/dL High 65-99 [facility] Comment on above: Performed By: #### Chanel ERICKSON CMP, 1988-02 #### [facility] ([id number]) [address] [place] [address] 57234 #### 71988-9 #### [facility] ([id number]) [address] [facility], [address] [place] [address] Potassium [Moles/Vol] 3.5 mmol/L Normal 3.5-5.0 [facility] Comment on above: Performed By: #### Chanel ERICKSON CMP, 1988-02 #### [facility] ([id number]) [address] [place] [address] 84883 #### 42261-5 #### [facility] ([id number]) [address], [address] [place] [address] Protein [Mass/Vol] 7.7 g/dL Normal 6.0-8.0 [facility] Comment on above: Performed By: #### Chanel ERICKSON CMP, 1988-02 #### [facility] ([id number]) [address] [place] [address] 50966 #### 21951-6 #### [facility] ([id number]) [address], [address] [place] [address] Sodium [Moles/Vol] 139 mmol/L Normal 134-146 [facility] Comment on above: Performed By: #### Chanel ERICKSON [facility], 1988-02 #### [facility] ([id number]) [address] [place] [address] 99511 #### 00101-2 #### [facility] ([id number]) [address] [facility], [address] [place] [address] Urea nitrogen [Mass/Vol] 19 mg/dL Normal 5-27 [facility] Comment on above: Performed By: #### Chanel ERICKSON [facility], 1988-02 #### [facility] ([id number]) [address] [place] [address] 35657 #### 21660-4 #### [facility] ([id number]) [address] [facility], [address] [place] [address] CRP [Mass/Vol]on 12-25-2023 C REACTIVE PROTEIN 8.6 mg/dL High 0.000-0.744 [facility] Comment on above: Performed By: #### Chanel ERICKSON CMP, 1988-02 #### [facility] ([id number]) [address] [place] [address] 38031 #### 75005-3 #### [facility] ([id number]) [address], [address] [place] [address] ESR Photometric method (Bld) [Velocity]on 12-25-2023 ESR, ERYTHROCYTE SEDIMENTATION RATE 85 mm/h High 0-30 [facility] Comment on above: Performed By: #### Chanel ERICKSON CMP, 1988-02 #### [facility] ([id number]) [address] [place] [address] 66792 #### [id number] #### [facility] ([id number]) [address] [facility], [address] [place] [address] Glucose Glucometer (BldC) [M ass/Vol]on 12-25-2023 Glucose [Mass/Vol] 171 mg/dL High 65-99 [facility] Glucose [Mass/Vol] 125 mg/dL High 65-99 [facility] Glucose [Mass/Vol] 154 mg/dL High 65-99 [facility] MAGNESIUMon 12-25-2023 Magnesium [Mass/Vol] 2.4 mg/dL Normal 1.8-2.6 [facility] Comment on above: Performed By: #### Chanle ERICKSON CMP, 1988-02 #### [facility] ([id number]) [address] [place] [address] 40812 #### 47669-9 #### [facility] ([id number]) [address] [facility], [address] [place] [address] POTASSIUMon 12-25-2023 Potassium [Moles/Vol] 4.2 mmol/L Normal 3.5-5.0 [facility] Comment on above: Performed By: #### Chanel ERICKSON CMP, 1988-02 #### [facility] ([id number]) [address] [place] [address] 90252 #### 87131-2 #### [facility] ([id number]) [address] [facility], [address] [place] [address] PROTIME AND INRon 12-25-2023 INR Coag (PPP) [Relative time] 2.6 {INR} High 0.8-1.1 [facility] Comment on above: Performed By: #### Chanel ERICKSON CMP, 1988-02 #### [facility] ([id number]) [address] [place] [address] 64850 #### 64498-7 #### [facility] ([id number]) [address] [facility], [address] [place] [address] PT Coag (PPP) [Time] 29.7 s High 9.8-13.2 [facility] Comment on above: Result Comment: NEW REFERENCE RANGE Performed By: #### C DRE [facility], 1988-02 #### [facility] ([id number]) [address] [place] [address] #### 44800-4 #### [facility] ([id number]) [address] [facility], [address] [place] [address] URIC ACIDon 12-25-2023 Urate [Mass/Vol] 8.9 mg/dL High 2.6-7.2 [facility] Comment on above: Performed By: #### C DRE [facility], 1988-02 #### [facility] ([id number]) [address] [place] [address] #### 17631-4 #### [facility] ([id number]) [address] [facility], [address] [place] [address] XR CHEST 1 VWon 12-25-2023 XR CHEST [...] Wood MD on 12/25/2023 11:21 AM Normal [facility] XR FOOT RT 2 VWSon 4 [...] Araujo MD on 12/25/2023 2:59 PM Normal [facility] CBC AND AUTO DIFFon 12-24-19 24 ABSOLUTE BASOPHIL 0.1 X10E9/L Normal 0.0-0.2 [facility] Comment on above: Performed By: #### Chanel ERICKSON CMP, 1988-02 #### [facility] ([id number]) [address] [place] [address] 79894 #### 25984-2 #### [facility] ([id number]) [address], [address] [place] [address] ABSOLUTE NEUTROPHIL 10.2 X10E9/L High 1.5-6.6 [facility] Comment on above: Performed By: #### Chanel ERICKSON [facility], 1988-02 #### [facility] ([id number]) [address] [place] [address] 60476 #### 15166-4 #### [facility] ([id number]) [address], [address] [place] [address] Basophils/100 WBC (Bld) 0.5 % Normal [facility] Comment on above: Performed By: #### Chanel ERICKSON CMP, 1988-02 #### [facility] ([id number]) [address] [place] [address] 45841 #### 58462-0 #### [facility] ([id number]) [address], [address] [place] [address] Eosinophils (Bld) [#/Vol] 0.9 10*3/uL High 0.0-0.4 [facility] Comment on above: Performed By: #### Chanel ERICKSON [facility], 1988-02 #### [facility] ([id number]) [address] [place] [address] 63323 #### 91465-0 #### [facility] ([id number]) [address], [address] [place] [address] Eosinophils/100 WBC (Bld) 6.2 % Normal [facility] Comment on above: Performed By: #### Chanel ERICKSON [facility], 1988-02 #### [facility] ([id number]) [address] [place] [address] 32763 #### 99845-8 #### [facility] ([id number]) [address], [address] [place] [address] Erythrocyte distribution width (RBC) [Ratio] 14.1 % Normal 11.5-15.0 [facility] Comment on above: Performed By: #### Chanel ERICKSON [facility], 1988-02 #### [facility] ([id number]) [address] [place] [address] 95400 #### 17544-8 #### [facility] ([id number]) [address], [address] [place] [address] Hematocrit (Bld) [Volume fraction] 37.3 % Normal 35-47 [facility] Comment on above: Performed By: #### Chanel ERICKSON [facility], 1988-02 #### [facility] ([id number]) [address] [place] [address] 90367 #### 33326-9 #### [facility] ([id number]) [address], [address] [place] [address] Hemoglobin (Bld) [Mass/Vol] 12.4 g/dL Normal 11.7-15.5 [facility] Comment on above: Performed By: #### Chanel BCA, CMP, 1988-02 #### [facility] ([id number]) [address] [place] [address] 87635 #### 89887-7 #### [facility] ([id number]) [address], [address] [place] [address] Lymphocytes (Bld) [#/Vol] 2.2 10*3/uL Normal 1.0-3.5 [facility] Comment on above: Performed By: #### Chanel BCA, CMP, 1988-02 #### [facility] ([id number]) [address] [place] [address] 91532 #### 42108-3 #### [facility] ([id number]) [address], [address] [place] [address] Lymphocytes/100 WBC (Bld) 15.4 % Normal [facility] Comment on above: Performed By: #### Chanel BCA, CMP, 1988-02 #### [facility] ([id number]) [address] [place] [address] 40190 #### 42795-6 #### [facility] ([id number]) [address], [address] [place] [address] MCH (RBC) [Entitic mass] 29.0 pg Normal 27-34 [facility] Comment on above: Performed By: #### Chanel BCA, CMP, 1988-02 #### [facility] ([id number]) [address] [place] [address] 62631 #### 09500-9 #### [facility] ([id number]) [address], [address] [place] [address] MCHC (RBC) [Mass/Vol] 33.3 g/dL Normal 32-36 [facility] Comment on above: Performed By: #### Chanel BCA, CMP, 1988-02 #### [facility] ([id number]) [address] [place] [address] 40488 #### 38439-6 #### [facility] ([id number]) [address], [address] [place] [address] MCV (RBC) [Entitic vol] 87 fL Normal 80-100 [facility] Comment on above: Performed By: #### Chanel ERICKSON CMP, 1988-02 #### [facility] ([id number]) [address] [place] [address] 08201 #### 29297-7 #### [facility] ([id number]) [address], [address] [place] [address] Monocytes (Bld) [#/Vol] 0.7 10*3/uL Normal 0-0.9 [facility] Comment on above: Performed By: #### Chanel ERICKSON [facility], 1988-02 #### [facility] ([id number]) [address] [place] [address] 48196 #### 85940-4 #### [facility] ([id number]) [address], [address] [place] [address] Monocytes/100 WBC (Bld) 5.3 % Normal [facility] Comment on above: Performed By: #### Chanel ERICKSON CMP, 1988-02 #### [facility] ([id number]) [address] [place] [address] 85817 #### 04934-6 #### [facility] ([id number]) [address], [address] [place] [address] Neutrophils/100 WBC (Bld) 72.6 % Normal [facility] Comment on above: Performed By: #### Chanel ERICKSON CMP, 1988-02 #### [facility] ([id number]) [address] [place] [address] 74489 #### 59713-3 #### [facility] ([id number]) [address], [address] [place] [address] Platelet mean volume (Bld) [Entitic vol] 8.6 fL Normal 7-12 [facility] Comment on above: Performed By: #### Chanel ERICKSON CMP, 1988-02 #### [facility] ([id number]) [address] [place] [address] 96399 #### 93559-3 #### [facility] ([id number]) [address] [facility], [address] [place] [address] Platelets (Bld) [#/Vol] 339 10*3/uL Normal 150-450 [facility] Comment on above: Performed By: #### Chanel ERICKSON CMP, 1988-02 #### [facility] ([id number]) [address] [place] [address] 83065 #### 11012-5 #### [facility] ([id number]) [address] [facility], [address] [place] [address] RBC COUNT 4.29 X10E12/L Normal 3.80-5.20 [facility] Comment on above: Performed By: #### Chanel ERICKSON CMP, 1988-02 #### [facility] ([id number]) [address] [place] [address] 05818 #### 48298-8 #### [facility] ([id number]) [address], [address] [place] [address] WBC (Bld) [#/Vol] 14.1 10*3/uL High 4.0-11.0 [facility] Comment on above: Performed By: #### Chanel ERICKSON CMP, 1988-02 #### [facility] ([id number]) [address] [place] [address] 52843 #### 41489-2 #### [facility] ([id number]) [address], [address] [place] [address] COMPREHENSIVE METABOLIC PANE Tyrone 12-24-2023 Albumin [Mass/Vol] 3.4 g/dL Normal 3.2-5.3 [facility] Comment on above: Performed By: #### Chanel ERICKSON CMP, 1988-02 #### [facility] ([id number]) [address] [place] [address] 08492 #### 76052-8 #### [facility] ([id number]) [address] [facility], [address] [place] [address] ALP [Catalytic activity/Vol] 67 U/L Normal 39-130 [facility] Comment on above: Performed By: #### Chanel BCA, CMP, 1988-02 #### [facility] ([id number]) [address] [place] [address] 54089 #### 21698-6 #### [facility] ([id number]) [address] [facility], [address] [place] [address] ALT [Catalytic activity/Vol] 13 U/L Normal 0-31 [facility] Comment on above: Performed By: #### Chanel BCA, CMP, 1988-02 #### [facility] ([id number]) [address] [place] [address] 35972 #### 04604-6 #### [facility] ([id number]) [address], [address] [place] [address] Anion gap [Moles/Vol] 11 mmol/L Normal 5-15 [facility] Comment on above: Performed By: #### Chanel BCA, CMP, 1988-02 #### [facility] ([id number]) [address] [place] [address] 54291 #### 94437-0 #### [facility] ([id number]) [address] [place] [address] AST [Catalytic activity/Vol] 16 U/L Normal 0-41 [facility] Comment on above: Performed By: #### Chanel ERICKSON CMP, 1988-02 #### [facility] ([id number]) [address] [place] [address] 80949 #### 81962-8 #### [facility] ([id number]) [address], [address] [place] [address] Bilirubin [Mass/Vol] 0.4 mg/dL Normal 0.3-1.2 [facility] Comment on above: Performed By: #### Chanel ERICKSON [facility], 1988-02 #### [facility] ([id number]) [address] [place] [address] 32064 #### 95088-1 #### [facility] ([id number]) [address], [address] [place] [address] Calcium [Mass/Vol] 8.9 mg/dL Normal 8.5-10.5 [facility] Comment on above: Performed By: #### Chanel ERICKSON CMP, 1988-02 #### [facility] ([id number]) [address] [place] [address] 31199 #### 27831-6 #### [facility] ([id number]) [address] [place] [address] Chloride [Moles/Vol] 99 mmol/L Normal 98-109 [facility] Comment on above: Performed By: #### Chanel ERICKSON CMP, 1988-02 #### [facility] ([id number]) [address] [place] [address] 98670 #### 77081-3 #### [facility] ([id number]) [address] [place] [address] CO2 [Moles/Vol] 30 mmol/L Normal 22-32 [facility] Comment on above: Performed By: #### C SEAN ERICKSON, 1988-02 #### [facility] ([id number]) [address] [place] [address] 23957 #### 34804-4 #### [facility] ([id number]) [address], [address] [place] [address] Creatinine [Mass/Vol] 0.83 mg/dL Normal 0.40-1.00 [facility] Comment on above: Result Comment: METH OD TRACEABLE TO IDMS STANDARD Performed By: #### C SEAN ERICKSON, 1988-02 #### [facility] ([id number]) [address] [place] [address] 64064 #### 96646-2 #### [facility] ([id number]) [address] [facility], [address] [place] [address] GFR/1.73 sq M.predicted among non-blacks MDRD (S/P/Bld) [Vol rate/Area] 75 mL/min/{1.73_m2} Normal >59 [facility] Comment on above: Result Comment: Reported eGFR is based on the CKD-EPI 2020 equation that does not use a race coefficient. Performed By: #### C SEAN ERICKSON, 1988-02 #### [facility] ([id number]) [address] [place] [address] 88996 #### 27478-8 #### [facility] ([id number]) [address] [facility], [address] [place] [address] Glucose [Mass/Vol] 137 mg/dL High 65-99 [facility] Comment on above: Performed By: #### Chanel ERICKSON CMP, 1988-02 #### [facility] ([id number]) [address] [place] [address] 22896 #### 88622-1 #### [facility] ([id number]) [address] [place] [address] Potassium [Moles/Vol] 3.8 mmol/L Normal 3.5-5.0 [facility] Comment on above: Performed By: #### C SEAN ERICKSON, 1988-02 #### [facility] ([id number]) [address] [place] [address] 61499 #### 35553-6 #### [facility] ([id number]) [address], [address] [place] [address] Protein [Mass/Vol] 7.9 g/dL Normal 6.0-8.0 [facility] Comment on above: Performed By: #### C SEAN ERICKSON, 1986-02 #### [facility] ([id number]) [address] [place] [address] #### [id number] #### [facility] ([id number]) [address], [address] [place] [address] Sodium [Moles/Vol] 140 mmol/L Normal 134-146 [facility] Comment on above: Performed By: #### Chanel ERICKSON CMP, 1986-02 #### [facility] ([id number]) [address] [place] [address]3781 #### [id number] #### [facility] ([id number]) [address], [address] [place] [address] Urea nitrogen [Mass/Vol] 18 mg/dL Normal 5-27 [facility] Comment on above: Performed By: #### Chanel ERICKSON CMP, 1986-02 #### [facility] ([id number]) [address] [place] [address] #### [id number] #### [facility] ([id number]) [address] [facility], [address] [place] [address] Glucose Glucometer (BldC) [M ass/Vol]on 12-24-2023 Glucose [Mass/Vol] 136 mg/dL High 65-99 [facility] Glucose [Mass/Vol] 123 mg/dL High 65-99 [facility] Glucose [Mass/Vol] 152 mg/dL High 65-99 [facility] MAGNESIUMon 12-24-2023 Magnesium [Mass/Vol] 2.2 mg/dL Normal 1.8-2.6 [facility] Comment on above: Performed By: #### Chanel ERICKSON CMP, 1986-02 #### [facility] ([id number]) [address] [place] [address]43[address] #### [phone] #### [facility] ([id number]) [address] [facility], [address] [place] [address] POTASSIUMon 12-24-2023 Potassium [Moles/Vol] 4.0 mmol/L Normal 3.5-5.0 [facility] Comment on above: Performed By: #### Chanel ERICKSON CMP, 1986-02 #### [facility] ([id number]) [address] [place] [address] #### [id number] #### [facility] ([id number]) [address] [facility], [address] [place] [address] PROTIME AND INRon 12-24-2023 INR Coag (PPP) [Relative time] 2.8 {INR} High 0.8-1.1 [facility] Comment on above: Performed By: #### Chanel ERICKSON CMP, 1986-02 #### [facility] ([id number]) [address] [place] [address] #### [id number] #### [facility] ([id number]) [address] [facility], [address] [place] [address] PT Coag (PPP) [Time] 30.9 s High 9.8-13.2 [facility] Comment on above: Result Comment: NEW REFERENCE RANGE Performed By: #### Chanel ERICKSON CMP, 1986-02 #### [facility] ([id number]) [address] [place] [address]77 #### [id number] #### [facility] ([id number]) [address] [facility], [address] [place] [address] Vancomycin trough [Mass/Vol] on 12-24-2023 VANCOMYCIN TROUGH 11.4 ug/mL Normal 5.0-20.0 [facility] Comment on above: Performed By: #### Chanel ERICKSON CMP, 1986-02 #### [facility] ([id number]) [address] [place] [id number] #### 55580-2 #### [facility] ([id number]) [address], [address] [place] [address] CBC AND AUTO DIFFon 12-23-19 24 ABSOLUTE BASOPHIL 0.1 X10E9/L Normal 0.0-0.2 [facility] Comment on above: Performed By: #### C DRE, PINR, CMP, 81695-3 ####[facility] ([id number])[address] [place] [address] 23237 ABSOLUTE NEUTROPHIL 10.1 X10E9/L High 1.5-6.6 [facility] Comment on above: Performed By: #### C DRE, PINR, CMP, 14043-6 ####[facility] ([id number])[address] [place] [address] 38665 Basophils/100 WBC (Bld) 1.0 % Normal [facility] Comment on above: Performed By: #### C DRE, PINR, CMP, ####[facility] ([id number])[address] [place] [address] 03763 Eosinophils (Bld) [#/Vol] 0.8 10*3/uL High 0.0-0.4 [facility] Comment on above: Performed By: #### C DRE, PINR, CMP, 63578-2 ####[facility] ([id number])[address] [place] [address] 14343 Eosinophils/100 WBC (Bld) 5.8 % Normal [facility] Comment on above: Performed By: #### C DRE, PINR, CMP, ####[facility] ([id number])[address] [place] [address] 50930 Erythrocyte distribution width (RBC) [Ratio] 13.8 % Normal 11.5-15.0 [facility] Comment on above: Performed By: #### Chanel ERICKSON, PINR, CMP, ####[facility] ([id number])[address] [place] [address] 30039 Hematocrit (Bld) [Volume fraction] 36.1 % Normal 35-47 [facility] Comment on above: Performed By: #### Chanel BCA, PINR, CMP, ####[facility] ([id number])[address] [place] [address] 45148 Hemoglobin (Bld) [Mass/Vol] 12.1 g/dL Normal 11.7-15.5 [facility] Comment on above: Performed By: #### Chanel BCA, PINR, CMP, ####[facility] ([id number])[address] [place] [address] 57412 Lymphocytes (Bld) [#/Vol] 2.4 10*3/uL Normal 1.0-3.5 [facility] Comment on above: Performed By: #### Chanel BCA, PINR, CMP, ####[facility] ([id number])[address] [place] [address] 16160 Lymphocytes/100 WBC (Bld) 16.6 % Normal [facility] Comment on above: Performed By: #### C BCA, PINR, CMP, ####[facility] ([id number])[address] [place] [address] 37875 MCH (RBC) [Entitic mass] 29.0 pg Normal 27-34 [facility] Comment on above: Performed By: #### C BCA, PINR, CMP, ####[facility] ([id number])[address] [place] [address] 47978 MCHC (RBC) [Mass/Vol] 33.6 g/dL Normal 32-36 [facility] Comment on above: Performed By: #### C BCA, PINR, CMP, ####[facility] ([id number])[address] [place] [address] 78640 MCV (RBC) [Entitic vol] 86 fL Normal 80-100 [facility] Comment on above: Performed By: #### C BCA, PINR, CMP, ####[facility] ([id number])[address] [place] [address] 09688 Monocytes (Bld) [#/Vol] 1.1 10*3/uL High 0-0.9 [facility] Comment on above: Performed By: #### C BCA, PINR, CMP, ####[facility] ([id number])[address] [place] [address] 10523 Monocytes/100 WBC (Bld) 7.3 % Normal [facility] Comment on above: Performed By: #### C BCA, PINR, CMP, ####[facility] ([id number])[address] [place] [address] 00784 Neutrophils/100 WBC (Bld) 69.3 % Normal [facility] Comment on above: Performed By: #### C DRE, PINR, CMP, ####[facility] ([id number])[address] [place] [address] 61057 Platelet mean volume (Bld) [Entitic vol] 8.5 fL Normal 7-12 [facility] Comment on above: Performed By: #### C BCA, PINR, CMP, ####[facility] ([id number])[address] [place] [address] 31521 Platelets (Bld) [#/Vol] 286 10*3/uL Normal 150-450 [facility] Comment on above: Performed By: #### Chanel ERICKSON, PINR, CMP, ####[facility] ([id number])[address] [place] [address] 91724 RBC COUNT 4.19 X10E12/L Normal 3.80-5.20 [facility] Comment on above: Performed By: #### Chanel ERICKSON, PINR, CMP, ####[facility] ([id number])[address] [place] [address] 17751 WBC (Bld) [#/Vol] 14.6 10*3/uL High 4.0-11.0 [facility] Comment on above: Performed By: #### Chanel BCA, PINR, CMP, ####[facility] ([id number])[address] [place] [address] 56498 COMPREHENSIVE METABOLIC PANE Tyrone 12-23-2023 Albumin [Mass/Vol] 3.1 g/dL Low 3.2-5.3 [facility] Comment on above: Performed By: #### Chanel ERICKSON, CMP, 1986-02 #### [facility] ([id number]) [address] [place] [address] [place] [address] #### 55290-0 #### [facility] ([id number]) [address], [address] [place] [address] ALP [Catalytic activity/Vol] 60 U/L Normal 39-130 [facility] Comment on above: Performed By: #### Chanel ERICKSON CMP, 1988-02 #### [facility] ([id number]) [address] [place] [address] 51125 #### 33340-1 #### [facility] ([id number]) [address], [address] [place] [address] ALT [Catalytic activity/Vol] 12 U/L Normal 0-31 [facility] Comment on above: Performed By: #### Chanel ERICKSON CMP, 1986-02 #### [facility] ([id number]) [address] [place] [address] 63093 #### 93817-0 #### [facility] ([id number]) [address], [address] [place] [address] Anion gap [Moles/Vol] 9 mmol/L Normal 5-15 [facility] Comment on above: Performed By: #### Chanel ERICKSON CMP, 1986-02 #### [facility] ([id number]) [address] [place] [address] 35454 #### 98820-2 #### [facility] ([id number]) [address], [address] [place] [address] AST [Catalytic activity/Vol] 14 U/L Normal 0-41 [facility] Comment on above: Performed By: #### Chanel ERICKSON CMP, 1986-02 #### [facility] ([id number]) [address] [place] [address] 99437 #### 89875-6 #### [facility] ([id number]) [address], [address] [place] [address] Bilirubin [Mass/Vol] 0.6 mg/dL Normal 0.3-1.2 [facility] Comment on above: Performed By: #### Chanel ERICKSON [facility], 1988-02 #### [facility] ([id number]) [address] [place] [address] 89940 #### 64740-5 #### [facility] ([id number]) [address], [address] [place] [address] Calcium [Mass/Vol] 8.5 mg/dL Normal 8.5-10.5 [facility] Comment on above: Performed By: #### Chanel ERICKSON [facility], 1988-02 #### [facility] ([id number]) [address] [place] [address] 31964 #### 63240-9 #### [facility] ([id number]) [address], [address] [place] [address] Chloride [Moles/Vol] 99 mmol/L Normal 98-109 [facility] Comment on above: Performed By: #### Chanel ERICKSON [facility], 1988-02 #### [facility] ([id number]) [address] [place] [address] 36586 #### 20645-0 #### [facility] ([id number]) [address], [address] [place] [address] CO2 [Moles/Vol] 28 mmol/L Normal 22-32 [facility] Comment on above: Performed By: #### Chanel ERICKSON [facility], 1988-02 #### [facility] ([id number]) [address] [place] [address] 26920 #### 98414-0 #### [facility] ([id number]) [address], [address] [place] [address] Creatinine [Mass/Vol] 0.75 mg/dL Normal 0.40-1.00 [facility] Comment on above: Result Comment: METH OD TRACEABLE TO IDMS STANDARD Performed By: #### Chanel ERICKSON CMP, 1986-02 #### [facility] ([id number]) [address] [place] [address] 13271 #### 55995-4 #### [facility] ([id number]) [address], [address] [place] [address] GFR/1.73 sq M.predicted among non-blacks MDRD (S/P/Bld) [Vol rate/Area] 85 mL/min/{1.73_m2} Normal >59 [facility] Comment on above: Result Comment: Reported eGFR is based on the CKD-EPI 2020 equation that does not use a race coefficient. Performed By: #### Chanel ERICKSON CMP, 1988-02 #### [facility] ([id number]) [address] [place] [address] 72931 #### 64856-4 #### [facility] ([id number]) [address] [facility], [address] [place] [address] Glucose [Mass/Vol] 122 mg/dL High 65-99 [facility] Comment on above: Performed By: #### Chanel ERICKSON CMP, 1988-02 #### [facility] ([id number]) [address] [place] [address] 79779 #### 42487-9 #### [facility] ([id number]) [address], [address] [place] [address] Potassium [Moles/Vol] 3.5 mmol/L Normal 3.5-5.0 [facility] Comment on above: Performed By: #### Chanel ERICKSON CMP, 1986-02 #### [facility] ([id number]) [address] [place] [address] 45307 #### 13843-4 #### [facility] ([id number]) [address], [address] [place] [address] Protein [Mass/Vol] 7.3 g/dL Normal 6.0-8.0 [facility] Comment on above: Performed By: #### Chanel ERICKSON CMP, 1988-02 #### [facility] ([id number]) [address] [place] [address] 65491 #### 37892-2 #### [facility] ([id number]) [address] [facility], [address] [place] [address] Sodium [Moles/Vol] 136 mmol/L Normal 134-146 [facility] Comment on above: Performed By: #### Chanel ERICKSON CMP, 1988-02 #### [facility] ([id number]) [address] [place] [address] 18110 #### 03857-5 #### [facility] ([id number]) [address] [facility], [address] [place] [address] Urea nitrogen [Mass/Vol] 15 mg/dL Normal 5-27 [facility] Comment on above: Performed By: #### Chanel ERICKSON CMP, 1988-02 #### [facility] ([id number]) [address] [place] [address] 38745 #### 82202-4 #### [facility] ([id number]) [address] [place] [address] Glucose Glucometer (BldC) [M ass/Vol]on 12-23-2023 Glucose [Mass/Vol] 158 mg/dL High 65-99 [facility] Glucose [Mass/Vol] 141 mg/dL High 65-99 [facility] HGB A1C (GLYCO-HGB)on 2023 Glucose [Mass/Vol] 140 mg/dL Normal [facility] Comment on above: Performed By: #### Chanel ERICKSON CMP, 1988-02 #### [facility] ([id number]) [address] [place] [address] 87155 #### 73030-5 #### [facility] ([id number]) [address] [facility], [address] [place] [address] HbA1c (Bld) [Mass fraction] 6.5 % High 4.4-5.6 [facility] Comment on above: Result Comment: NOTE ADA Guidelines Result HgbA1c Normal : less than 5.7 % Prediabetes : 5.7 % to 6.4 % Diabetes : > 6.4 % Use with caution in patients with abnormal hemoglobin variants as the half-life of red blood cells and in vivo glycation rates are affected. Performed By: #### C SEAN ERICKSON, 1986-02 #### [facility] ([id number]) [address] [place] [address] 80306 #### 11638-3 #### [facility] ([id number]) [address] [facility], [address] [place] [address] 884[address] MAGNESIUMon 12-23-2023 Magnesium [Mass/Vol] 2.0 mg/dL Normal 1.8-2.6 [facility] Comment on above: Performed By: #### Chanel ERICKSON [facility], 1988-02 #### [facility] ([id number]) [address] [place] [address] 18390 #### 23100-3 #### [facility] ([id number]) [address] [facility], [address] [place] [address] POTASSIUMon 12-23-2023 Potassium [Moles/Vol] 4.4 mmol/L Normal 3.5-5.0 [facility] Comment on above: Performed By: #### Chanel ERICKSON CMP, 1986-02 #### [facility] ([id number]) [address] [place] [address] 09206 #### 67997-9 #### [facility] ([id number]) [address] [facility], [address] [place] [address] PROTIME AND INRon 12-23-2023 INR Coag (PPP) [Relative time] 2.7 {INR} High 0.8-1.1 [facility] Comment on above: Performed By: #### C BCA, PINR, CMP, ####[facility] ([id number])[address] [place] [address] 97085 PT Coag (PPP) [Time] 29.9 s High 9.8-13.2 [facility] Comment on above: Result Comment: NEW REFERENCE RANGE Performed By: #### C BCA, PINR, CMP, ####[facility] ([id number])[address] [place] [address] 72079 CBC AND AUTO DIFFon 12-22-19 24 ABSOLUTE BASOPHIL 0.2 X10E9/L Normal 0.0-0.2 [facility] Comment on above: Performed By: #### P INR, CMP, , CBCA ####[facility] ([id number])[address] [place] [address] 92231 ABSOLUTE NEUTROPHIL 10.5 X10E9/L High 1.5-6.6 [facility] Comment on above: Performed By: #### P INR, CMP, , CBCA ####[facility] ([id number])[address] [place] [address] 90594 Basophils/100 WBC (Bld) 1.0 % Normal [facility] Comment on above: Performed By: #### P INR, CMP, , CBCA ####[facility] ([id number])[address] [place] [address] 82301 Eosinophils (Bld) [#/Vol] 1.1 10*3/uL High 0.0-0.4 [facility] Comment on above: Performed By: #### P INR, CMP, , CBCA ####[facility] ([id number])[address] [place] [address] 92206 Eosinophils/100 WBC (Bld) 6.9 % Normal [facility] Comment on above: Performed By: #### P INR, CMP, , CBCA ####[facility] ([id number])[address] [place] [address] 36142 Erythrocyte distribution width (RBC) [Ratio] 13.7 % Normal 11.5-15.0 [facility] Comment on above: Performed By: #### P INR, CMP, , CBCA ####[facility] ([id number])[address] [place] [address] 27483 Hematocrit (Bld) [Volume fraction] 34.0 % Low 35-47 [facility] Comment on above: Performed By: #### P INR, CMP, , CBCA ####[facility] ([id number])[address] [place] [address] 59048 Hemoglobin (Bld) [Mass/Vol] 11.4 g/dL Low 11.7-15.5 [facility] Comment on above: Performed By: #### P INR, CMP, , CBCA ####[facility] ([id number])[address] [place] [address] 27868 Lymphocytes (Bld) [#/Vol] 3.5 10*3/uL Normal 1.0-3.5 [facility] Comment on above: Performed By: #### P INR, CMP, , CBCA ####[facility] ([id number])[address] [place] [address] 87656 Lymphocytes/100 WBC (Bld) 21.4 % Normal [facility] Comment on above: Performed By: #### P INR, CMP, , CBCA ####[facility] ([id number])[address] [place] [address] 24202 MCH (RBC) [Entitic mass] 29.1 pg Normal 27-34 [facility] Comment on above: Performed By: #### P INR, CMP, , CBCA ####[facility] ([id number])[address] [place] [address] 26860 MCHC (RBC) [Mass/Vol] 33.6 g/dL Normal 32-36 [facility] Comment on above: Performed By: #### P INR, CMP, , CBCA ####[facility] ([id number])[address] [place] [address] 23890 MCV (RBC) [Entitic vol] 87 fL Normal 80-100 [facility] Comment on above: Performed By: #### P INR, CMP, , CBCA ####[facility] ([id number])[address] [place] [address] 83578 Monocytes (Bld) [#/Vol] 0.9 10*3/uL Normal 0-0.9 [facility] Comment on above: Performed By: #### P INR, CMP, , CBCA ####[facility] ([id number])[address] [place] [address] 96284 Monocytes/100 WBC (Bld) 5.8 % Normal [facility] Comment on above: Performed By: #### P INR, CMP, , CBCA ####[facility] ([id number])[address] [place] [address] 22105 Neutrophils/100 WBC (Bld) 64.9 % Normal [facility] Comment on above: Performed By: #### P INR, CMP, , CBCA ####[facility] ([id number])[address] [place] [address] 89226 Platelet mean volume (Bld) [Entitic vol] 8.8 fL Normal 7-12 [facility] Comment on above: Performed By: #### P INR, CMP, , CBCA ####[facility] ([id number])[address] [place] [address] 92145 Platelets (Bld) [#/Vol] 258 10*3/uL Normal 150-450 [facility] Comment on above: Performed By: #### P INR, CMP, , CBCA ####[facility] ([id number])[address] [place] [address] 78603 RBC COUNT 3.92 X10E12/L Normal 3.80-5.20 [facility] Comment on above: Performed By: #### P INR, CMP, , CBCA ####[facility] ([id number])[address] [place] [address] 47717 WBC (Bld) [#/Vol] 16.2 10*3/uL High 4.0-11.0 [facility] Comment on above: Performed By: #### P INR, CMP, , CBCA ####[facility] ([id number])[address] [place] [address] 76440 COMPREHENSIVE METABOLIC PANE Tyrone 12-22-2023 Albumin [Mass/Vol] 3.4 g/dL Normal 3.2-5.3 [facility] Comment on above: Performed By: #### P INR, CMP, , CBCA ####[facility] ([id number])[address] [place] [address] 03931 ALP [Catalytic activity/Vol] 59 U/L Normal 39-130 [facility] Comment on above: Performed By: #### P INR, CMP, , CBCA ####[facility] ([id number])[address] [place] [address] 76563 ALT [Catalytic activity/Vol] 11 U/L Normal 0-31 [facility] Comment on above: Performed By: #### P INR, CMP, , CBCA ####[facility] ([id number])[address] [place] [address] 17749 Anion gap [Moles/Vol] 11 mmol/L Normal 5-15 [facility] Comment on above: Performed By: #### P INR, CMP, , CBCA ####[facility] ([id number])[address] [place] [address] 32925 AST [Catalytic activity/Vol] 14 U/L Normal 0-41 [facility] Comment on above: Performed By: #### P INR, CMP, , CBCA ####[facility] ([id number])[address] [place] [address] 46160 Bilirubin [Mass/Vol] 0.8 mg/dL Normal 0.3-1.2 [facility] Comment on above: Performed By: #### P INR, CMP, , CBCA ####[facility] ([id number])[address] [place] [address] 29155 Calcium [Mass/Vol] 8.5 mg/dL Normal 8.5-10.5 [facility] Comment on above: Performed By: #### P INR, CMP, , CBCA ####[facility] ([id number])[address] [place] [address] 52621 Chloride [Moles/Vol] 98 mmol/L Normal 98-109 [facility] Comment on above: Performed By: #### P INR, CMP, , CBCA ####[facility] ([id number])[address] [place] [address] 17809 CO2 [Moles/Vol] 26 mmol/L Normal 22-32 [facility] Comment on above: Performed By: #### P INR, CMP, , CBCA ####[facility] ([id number])[address] [place] [address] 48883 Creatinine [Mass/Vol] 0.78 mg/dL Normal 0.40-1.00 [facility] Comment on above: Result Comment: METH OD TRACEABLE TO IDMS STANDARD Performed By: #### P INR, CMP, , CBCA ####[facility] ([id number])[address] [place] [address] 49611 GFR/1.73 sq M.predicted among non-blacks MDRD (S/P/Bld) [Vol rate/Area] 81 mL/min/{1.73_m2} Normal >59 [facility] Comment on above: Result Comment: Reported eGFR is based on the CKD-EPI 2020 equation that does not use a race coefficient. Performed By: #### P INR, CMP, , CBCA ####[facility] ([id number])[address] [place] [address] 88523 Glucose [Mass/Vol] 121 mg/dL High 65-99 [facility] Comment on above: Performed By: #### P INR, CMP, , CBCA ####[facility] ([id number])[address] [place] [address] 35680 Potassium [Moles/Vol] 3.5 mmol/L Normal 3.5-5.0 [facility] Comment on above: Performed By: #### P INR, CMP, , CBCA ####[facility] ([id number])[address] [place] [address] [place] [address] Protein [Mass/Vol] 7.2 g/dL Normal 6.0-8.0 [facility] Comment on above: Performed By: #### P INR, CMP, , CBCA ####[facility] ([id number])[address] [place] [address] 95330 Sodium [Moles/Vol] 135 mmol/L Normal 134-146 [facility] Comment on above: Performed By: #### P INR, CMP, , CBCA ####[facility] ([id number])[address] [place] [address] 08314 Urea nitrogen [Mass/Vol] 15 mg/dL Normal 5-27 [facility] Comment on above: Performed By: #### P INR, CMP, , CBCA ####[facility] ([id number])[address] [place] [address] 73314 Glucose Glucometer (BldC) [M ass/Vol]on 12-22-2023 Glucose [Mass/Vol] 147 mg/dL High 65-99 [facility] Glucose [Mass/Vol] 136 mg/dL High 65-99 [facility] Glucose [Mass/Vol] 120 mg/dL High 65-99 [facility] MAGNESIUMon 12-22-2023 Magnesium [Mass/Vol] 2.0 mg/dL Normal 1.8-2.6 [facility] Comment on above: Performed By: #### P INR, CMP, , CBCA ####[facility] ([id number])[address] [place] [address] 06624 PROTIME AND INRon 12-22-2023 INR Coag (PPP) [Relative time] 2.6 {INR} High 0.8-1.1 [facility] Comment on above: Performed By: #### P INR, CMP, , CBCA ####[facility] ([id number])[address] [place] [id number] PT Coag (PPP) [Time] 29.0 s High 9.8-13.2 [facility] Comment on above: Result Comment: NEW REFERENCE RANGE Performed By: #### P INR, CMP, , CBCA ####[facility] ([id number])[address] [place] [phone] Vancomycin trough [Mass/Vol] on 12-22-2023 VANCOMYCIN TROUGH 15.2 ug/mL Normal 5.0-20.0 [facility] Comment on above: Performed By: #### 4 092-3 ####[facility] ([id number])[address] [place] [id number] CBC AND AUTO DIFFon 12-21-19 ABSOLUTE BASOPHIL 0.1 X10E9/L Normal 0.0-0.2 [facility] Comment on above: Performed By: #### [facility], #### [facility] ([id number]) [address] [place] [address] ABSOLUTE NEUTROPHIL 11.5 X10E9/L High 1.5-6.6 [facility] Comment on above: Performed By: #### [facility], 39600-3 #### [facility] ([id number]) [address] [place] [address] 40195 Basophils/100 WBC (Bld) 0.8 % Normal [facility] Comment on above: Performed By: #### [facility], #### [facility] ([id number]) [address] [place] [address]73 Eosinophils (Bld) [#/Vol] 0.3 10*3/uL Normal 0.0-0.4 [facility] Comment on above: Performed By: #### C [facility], CMP, #### [facility] ([id number]) [address] [place] [address] 24578 Eosinophils/100 WBC (Bld) 2.2 % Normal [facility] Comment on above: Performed By: #### [facility], #### [facility] ([id number]) [address] [place] [phone] Erythrocyte distribution width (RBC) [Ratio] 14.0 % Normal 11.5-15.0 [facility] Comment on above: Performed By: #### [facility], #### [facility] ([id number]) [address] [place] [phone] Hematocrit (Bld) [Volume fraction] 34.8 % Low 35-47 [facility] Comment on above: Performed By: #### [facility], #### [facility] ([id number]) [address] [place] [address] 94186 Hemoglobin (Bld) [Mass/Vol] 11.4 g/dL Low 11.7-15.5 [facility] Comment on above: Performed By: #### [facility], #### [facility] ([id number]) [address] [place] [phone] Lymphocytes (Bld) [#/Vol] 2.0 10*3/uL Normal 1.0-3.5 [facility] Comment on above: Performed By: #### Chanel ERICKSON CMP, #### [facility] ([id number]) [address] [place] [address] 27532 Lymphocytes/100 WBC (Bld) 13.2 % Normal [facility] Comment on above: Performed By: #### Chanel ERICKSON CMP, #### [facility] ([id number]) [address], [place] [address] MCH (RBC) [Entitic mass] 28.5 pg Normal 27-34 [facility] Comment on above: Performed By: #### Chanel ERICKSON CMP, #### [facility] ([id number]) [address] [place] [address] 65261 MCHC (RBC) [Mass/Vol] 32.6 g/dL Normal 32-36 [facility] Comment on above: Performed By: #### Chanel ERICKSON CMP, #### [facility] ([id number]) [address] [place] [address] 99277 MCV (RBC) [Entitic vol] 87 fL Normal 80-100 [facility] Comment on above: Performed By: #### Chanel ERICKSON CMP, #### [facility] ([id number]) [address] [place] [address] 66395 Monocytes (Bld) [#/Vol] 1.3 10*3/uL High 0-0.9 [facility] Comment on above: Performed By: #### Chanel ERICKSON CMP, #### [facility] ([id number]) [address] [place] [address] 92923 Monocytes/100 WBC (Bld) 8.7 % Normal [facility] Comment on above: Performed By: #### Chanel ERICKSON CMP, #### [facility] ([id number]) [address] [place] [address] 18820 Neutrophils/100 WBC (Bld) 75.1 % Normal [facility] Comment on above: Performed By: #### Chanel ERICKSON CMP, #### [facility] ([id number]) [address] [place] [address] 75683 Platelet mean volume (Bld) [Entitic vol] 8.8 fL Normal 7-12 [facility] Comment on above: Performed By: #### Chanel ERICKSON CMP, 23738-6 #### [facility] ([id number]) [address] [place] [address] 79568 Platelets (Bld) [#/Vol] 257 10*3/uL Normal 150-450 [facility] Comment on above: Performed By: #### C BCA, CMP, 39071-2 #### [facility] ([id number]) [address] [place] [address] 42634 RBC COUNT 3.98 X10E12/L Normal 3.80-5.20 [facility] Comment on above: Performed By: #### C BCA, CMP, 14056-9 #### [facility] ([id number]) [address] [place] [address] 96984 WBC (Bld) [#/Vol] 15.3 10*3/uL High 4.0-11.0 [facility] Comment on above: Performed By: #### C BCA, CMP, 33214-8 #### [facility] ([id number]) [address] [place] [address] 82050 COMPREHENSIVE METABOLIC PANE Tyrone 12-21-2023 Albumin [Mass/Vol] 3.3 g/dL Normal 3.2-5.3 [facility] Comment on above: Performed By: #### C BCA, CMP, 36632-0 ####[facility] ([id number])[address] [place] [address] 19278 ALP [Catalytic activity/Vol] 59 U/L Normal 39-130 [facility] Comment on above: Performed By: #### C BCA, CMP, 61332-1 ####[facility] ([id number])[address] [place] [address] 56556 ALT [Catalytic activity/Vol] 13 U/L Normal 0-31 [facility] Comment on above: Performed By: #### C BCA, CMP, 51772-0 ####[facility] ([id number])[address] [place] [address], [place] [address] Anion gap [Moles/Vol] 11 mmol/L Normal 5-15 [facility] Comment on above: Performed By: #### C BCA, CMP, 56353-5 ####[facility] ([id number])[address] [place] [address], [place] [address] AST [Catalytic activity/Vol] 11 U/L Normal 0-41 [facility] Comment on above: Performed By: #### C DRE, CMP, 41401-0 ####[facility] ([id number])[address] [place] [address] 50703 Bilirubin [Mass/Vol] 1.0 mg/dL Normal 0.3-1.2 [facility] Comment on above: Performed By: #### C DRE, CMP, ####[facility] ([id number])[address] [place] [address] [place] [address] Calcium [Mass/Vol] 8.5 mg/dL Normal 8.5-10.5 [facility] Comment on above: Performed By: #### C DRE, [facility], ####[facility] ([id number])[address] [place] [address], [place] [address] Chloride [Moles/Vol] 101 mmol/L Normal 98-109 [facility] Comment on above: Performed By: #### C BCA, CMP, 03122-7 ####[facility] ([id number])[address] [place] [address] [place] [address] CO2 [Moles/Vol] 25 mmol/L Normal 22-32 [facility] Comment on above: Performed By: #### C BCA, CMP, 61423-2 ####[facility] ([id number])[address] [place] [address], [place] [address] Creatinine [Mass/Vol] 0.66 mg/dL Normal 0.40-1.00 [facility] Comment on above: Result Comment: METH OD TRACEABLE TO IDMS STANDARD Performed By: #### C SEAN ERICKSON, ####[facility] ([id number])[address] [place] [address] 60480 eGFR (CKD-EPI) NON-RACE DEPENDENT >90 Normal >59 [facility] Comment on above: Result Comment: Reported eGFR is based on the CKD-EPI 2020 equation that does not use a race coefficient. Performed By: #### C SEAN ERICKSON, ####[facility] ([id number])[address] [place] [address] 34456 Glucose [Mass/Vol] 132 mg/dL High 65-99 [facility] Comment on above: Performed By: #### Chanel ERICKSON CMP, 22255-8 ####[facility] ([id number])[address] [place] [address] 61554 Potassium [Moles/Vol] 3.5 mmol/L Normal 3.5-5.0 [facility] Comment on above: Performed By: #### C DRE [facility], 07970-0 ####[facility] ([id number])[address] [place] [address] 97463 Protein [Mass/Vol] 7.0 g/dL Normal 6.0-8.0 [facility] Comment on above: Performed By: #### C DRE [facility], 13578-3 ####[facility] ([id number])[address] [place] [address] 63209 Sodium [Moles/Vol] 137 mmol/L Normal 134-146 [facility] Comment on above: Performed By: #### C SEAN ERICKSON, 89389-9 ####[facility] ([id number])[address] [place] [address] 24232 Urea nitrogen [Mass/Vol] 15 mg/dL Normal 5-27 [facility] Comment on above: Performed By: #### C DRE [facility], 94731-0 ####[facility] ([id number])[address] [place] [address] 89250 Glucose Glucometer (BldC) [M ass/Vol]on 12-21-2023 Glucose [Mass/Vol] 130 mg/dL High 65-99 [facility] Glucose [Mass/Vol] 153 mg/dL High 65-99 [facility] Glucose [Mass/Vol] 206 mg/dL High 65-99 [facility] MAGNESIUMon 12-21-2023 Magnesium [Mass/Vol] 2.2 mg/dL Normal 1.8-2.6 [facility] Comment on above: Performed By: #### C DRE [facility], 58105-2 ####[facility] ([id number])[address] [place] [address] 62338 MR FOOT LT W WO CONTon 12-20 [...] Garcia MD on 12/21/2023 1:06 PM Normal [facility] POTASSIUMon 12-21-2023 Potassium [Moles/Vol] 3.8 mmol/L Normal 3.5-5.0 [facility] Comment on above: Performed By: #### 2 823-3 ####[facility] ([id number])[address] [place] [address] 05067 PROTIME AND INRon 12-21-2023 INR Coag (PPP) [Relative time] 2.4 {INR} High 0.8-1.1 [facility] Comment on above: Performed By: #### P INR ####[facility] ([id number])[address] [place] [address] 54774 PT Coag (PPP) [Time] 27.0 s High 9.8-13.2 [facility] Comment on above: Result Comment: NEW REFERENCE RANGE Performed By: #### P INR ####[facility] ([id number])[address] [place] [address] 37940 BLOOD CULTUREon 12-20-2023 Bacteria identified Aer cx Nom (Bld) SPECIMEN NOTES RSURFACE VEIN CULTURE RESULTS NO GROWTH 5 DAYS Normal [facility] Comment on above: Performed By: #### 1 7928-3 ####[facility] ([id number])[address] [place] [address] 16136 Bacteria identified Aer cx Nom (Bld) SPECIMEN NOTES SUBOPTIMAL VOLUME OF BLOOD COLLECTED, RESULTS MAY BE AFFECTED. CULTURE RESULTS NO GROWTH 5 DAYS Normal [facility] Comment on above: Performed By: #### 1 7928-3 ####[facility] ([id number])[address] [facility], [address] [place] [address] CBC AND AUTO DIFFon 12-20-19 24 ABSOLUTE BASOPHIL 0.1 X10E9/L Normal 0.0-0.2 [facility] Comment on above: Performed By: #### C BCA, CMP, 1987- #### [facility] ([id number]) [address] [place] [address] 64001 #### 27885-0 #### [facility] ([id number]) [address], [address] [place] [address] ABSOLUTE NEUTROPHIL 12.0 X10E9/L High 1.5-6.6 [facility] Comment on above: Performed By: #### Chanel ERICKSON CMP, 1988-02 #### [facility] ([id number]) [address] [place] [address] 91913 #### 77992-1 #### [facility] ([id number]) [address] [facility], [address] [place] [address] Basophils/100 WBC (Bld) 0.5 % Normal [facility] Comment on above: Performed By: #### Chanel ERICKSON CMP, 1988-02 #### [facility] ([id number]) [address] [place] [address] 70220 #### 46926-5 #### [facility] ([id number]) [address], [address] [place] [address] Eosinophils (Bld) [#/Vol] 0.3 10*3/uL Normal 0.0-0.4 [facility] Comment on above: Performed By: #### Chanel ERICKSON CMP, 1988-02 #### [facility] ([id number]) [address] [place] [address] 97945 #### 63383-8 #### [facility] ([id number]) [address], [address] [place] [address] Eosinophils/100 WBC (Bld) 2.0 % Normal [facility] Comment on above: Performed By: #### Chanel ERICKSON CMP, 1988-02 #### [facility] ([id number]) [address] [place] [address] 85420 #### 65731-7 #### [facility] ([id number]) [address], [address] [place] [address] Erythrocyte distribution width (RBC) [Ratio] 14.0 % Normal 11.5-15.0 [facility] Comment on above: Performed By: #### Chanel ERICKSON CMP, 1988-02 #### [facility] ([id number]) [address] [place] [address] 28046 #### 65289-3 #### [facility] ([id number]) [address] [facility], [address] [place] [address] Hematocrit (Bld) [Volume fraction] 36.1 % Normal 35-47 [facility] Comment on above: Performed By: #### Chanel ERICKSON CMP, 1988-02 #### [facility] ([id number]) [address] [place] [address] 14502 #### 15278-6 #### [facility] ([id number]) [address] [facility], [address] [place] [address] Hemoglobin (Bld) [Mass/Vol] 12.1 g/dL Normal 11.7-15.5 [facility] Comment on above: Performed By: #### Chanel ERICKSON CMP, 1988-02 #### [facility] ([id number]) [address] [place] [address] 55223 #### 26823-5 #### [facility] ([id number]) [address] [facility], [address] [place] [address] Lymphocytes (Bld) [#/Vol] 2.4 10*3/uL Normal 1.0-3.5 [facility] Comment on above: Performed By: #### Chanel ERICKSON CMP, 1988-02 #### [facility] ([id number]) [address] [place] [address] 69550 #### 67054-2 #### [facility] ([id number]) [address], [address] [place] [address] Lymphocytes/100 WBC (Bld) 14.9 % Normal [facility] Comment on above: Performed By: #### Chaenl ERICKSON CMP, 1988-02 #### [facility] ([id number]) [address] [place] [address] 45667 #### 69470-6 #### [facility] ([id number]) [address], [address] [place] [address] MCH (RBC) [Entitic mass] 28.9 pg Normal 27-34 [facility] Comment on above: Performed By: #### Chanel ERICKSON CMP, 1988-02 #### [facility] ([id number]) [address] [place] [address] 74261 #### 65878-3 #### [facility] ([id number]) [address], [address] [place] [address] MCHC (RBC) [Mass/Vol] 33.5 g/dL Normal 32-36 [facility] Comment on above: Performed By: #### Chanel ERICKSON CMP, 1988-02 #### [facility] ([id number]) [address] [place] [address] 13019 #### 84317-0 #### [facility] ([id number]) [address], [address] [place] [address] MCV (RBC) [Entitic vol] 86 fL Normal 80-100 [facility] Comment on above: Performed By: #### Chanel ERICKSON CMP, 1988-02 #### [facility] ([id number]) [address] [place] [address] 99616 #### 73961-0 #### [facility] ([id number]) [address], [address] [place] [address] Monocytes (Bld) [#/Vol] 1.5 10*3/uL High 0-0.9 [facility] Comment on above: Performed By: #### Chanel ERICKSON CMP, 1988-02 #### [facility] ([id number]) [address] [place] [address] 40463 #### 58577-1 #### [facility] ([id number]) [address] [place] [address] Monocytes/100 WBC (Bld) 9.3 % Normal [facility] Comment on above: Performed By: #### Chanel ERICKSON CMP, 1988-02 #### [facility] ([id number]) [address] [place] [address] 34080 #### 12462-7 #### [facility] ([id number]) [address], [address] [place] [address] Neutrophils/100 WBC (Bld) 73.3 % Normal [facility] Comment on above: Performed By: #### Chanel ERICKSON CMP, 1988-02 #### [facility] ([id number]) [address] [place] [address] 07399 #### 27119-9 #### [facility] ([id number]) [address], [address] [place] [address] Platelet mean volume (Bld) [Entitic vol] 8.4 fL Normal 7-12 [facility] Comment on above: Performed By: #### Chanel ERICKSON CMP, 1988-02 #### [facility] ([id number]) [address] [place] [address] 44498 #### 58242-5 #### [facility] ([id number]) [address] [place] [address] Platelets (Bld) [#/Vol] 282 10*3/uL Normal 150-450 [facility] Comment on above: Performed By: #### C BCA, CMP, 1988-02 #### [facility] ([id number]) [address] [place] [address] 24128 #### 79920-3 #### [facility] ([id number]) [address] [facility], [address] [place] [address] RBC COUNT 4.18 X10E12/L Normal 3.80-5.20 [facility] Comment on above: Performed By: #### C BCA, CMP, 1988-02 #### [facility] ([id number]) [address] [place] [address] 62983 #### 07236-6 #### [facility] ([id number]) [address] [facility], [address] [place] [address] WBC (Bld) [#/Vol] 16.4 10*3/uL High 4.0-11.0 [facility] Comment on above: Performed By: #### C BCA, CMP, 1988-02 #### [facility] ([id number]) [address] [place] [address] 93129 #### 15189-6 #### [facility] ([id number]) [address] [facility], [address] [place] [address] COMPREHENSIVE METABOLIC PANE Tyrone 12-20-2023 Albumin [Mass/Vol] 3.7 g/dL Normal 3.2-5.3 [facility] Comment on above: Performed By: #### C BCA, CMP, 1988-02 #### [facility] ([id number]) [address] [place] [address] 04581 #### 98499-3 #### [facility] ([id number]) [address] [facility], [address] [place] [address] ALP [Catalytic activity/Vol] 74 U/L Normal 39-130 [facility] Comment on above: Performed By: #### C BCA, [facility], 1988-02 #### [facility] ([id number]) [address] [place] [address] 82493 #### 35191-7 #### [facility] ([id number]) [address] [place] [address] ALT [Catalytic activity/Vol] 15 U/L Normal 0-31 [facility] Comment on above: Performed By: #### C BCA, [facility], 1988-02 #### [facility] ([id number]) [address] [place] [address] 51180 #### 94685-1 #### [facility] ([id number]) [address], [address] [place] [address] Anion gap [Moles/Vol] 6 mmol/L Normal 5-15 [facility] Comment on above: Performed By: #### C BCA, [facility], 1988-02 #### [facility] ([id number]) [address] [place] [address] 66968 #### 61736-0 #### [facility] ([id number]) [address] [place] [address] AST [Catalytic activity/Vol] 17 U/L Normal 0-41 [facility] Comment on above: Performed By: #### C BCA, CMP, 1988-02 #### [facility] ([id number]) [address] [place] [address] 47781 #### 79980-7 #### [facility] ([id number]) [address] [place] [address] Bilirubin [Mass/Vol] 0.4 mg/dL Normal 0.3-1.2 [facility] Comment on above: Performed By: #### Chanel BCA, CMP, 1988-02 #### [facility] ([id number]) [address] [place] [address] 03297 #### 49589-3 #### [facility] ([id number]) [address] [facility], [address] [place] [address] Calcium [Mass/Vol] 8.3 mg/dL Low 8.5-10.5 [facility] Comment on above: Performed By: #### Chanel ERICKSON CMP, 1988-02 #### [facility] ([id number]) [address] [place] [address] 76619 #### 30188-6 #### [facility] ([id number]) [address] [facility], [address] [place] [address] Chloride [Moles/Vol] 101 mmol/L Normal 98-109 [facility] Comment on above: Performed By: #### Chanel ERICKSON CMP, 1988-02 #### [facility] ([id number]) [address] [place] [address] 75842 #### 84609-9 #### [facility] ([id number]) [address] [facility], [address] [place] [address] CO2 [Moles/Vol] 26 mmol/L Normal 22-32 [facility] Comment on above: Performed By: #### Chanel BCA CMP, 1988-02 #### [facility] ([id number]) [address] [place] [address] 54253 #### 70475-4 #### [facility] ([id number]) [address] [facility], [address] [place] [address] Creatinine [Mass/Vol] 0.69 mg/dL Normal 0.40-1.00 [facility] Comment on above: Result Comment: METH OD TRACEABLE TO IDMS STANDARD Performed By: #### C BCA CMP, 1988-02 #### [facility] ([id number]) [address] [place] [address] 94222 #### 26875-0 #### [facility] ([id number]) [address], [address] [place] [address] eGFR (CKD-EPI) NON-RACE DEPENDENT >90 Normal >59 [facility] Comment on above: Result Comment: Reported eGFR is based on the CKD-EPI 2020 equation that does not use a race coefficient. Performed By: #### C SEAN ERICKSON, 1988-02 #### [facility] ([id number]) [address] [place] [address] 64037 #### 11238-6 #### [facility] ([id number]) [address] [facility], [address] [place] [address] Glucose [Mass/Vol] 132 mg/dL High 65-99 [facility] Comment on above: Performed By: #### Chanel ERICKSON CMP, 1988-02 #### [facility] ([id number]) [address] [place] [address] 12840 #### 24770-1 #### [facility] ([id number]) [address] [place] [address] Potassium [Moles/Vol] 3.8 mmol/L Normal 3.5-5.0 [facility] Comment on above: Performed By: #### Chanel ERICKSON CMP, 1988-02 #### [facility] ([id number]) [address] [place] [address] 55193 #### 25793-7 #### [facility] ([id number]) [address] [place] [address] Protein [Mass/Vol] 7.9 g/dL Normal 6.0-8.0 [facility] Comment on above: Performed By: #### Chanel ERICKSON CMP, 1988-02 #### [facility] ([id number]) [address] [place] [address] 82265 #### 49433-2 #### [facility] ([id number]) [address] [facility], [address] [place] [address] Sodium [Moles/Vol] 133 mmol/L Low 134-146 [facility] Comment on above: Performed By: #### Chanel ERICKSON CMP, 1988-02 #### [facility] ([id number]) [address] [place] [address] 61500 #### 50492-8 #### [facility] ([id number]) [address] [place] [address], [address] [place] [address] Urea nitrogen [Mass/Vol] 16 mg/dL Normal 5-27 [facility] Comment on above: Performed By: #### Chanel ERICKSON CMP, 1988-02 #### [facility] ([id number]) [address] [place] [address] 22996 #### 75327-8 #### [facility] ([id number]) [address] [place] [address], [address] [place] [address]90[address] CRP [Mass/Vol]on 12-20-2023 C REACTIVE PROTEIN 11.8 mg/dL High 0.000-0.744 [facility] Comment on above: Performed By: #### Chanel ERICKSON CMP, 1986-02 #### [facility] ([id number]) [address] [place] [address] #### [id number] #### [facility] ([id number]) [address] [place] [address], [address] [place] [address] ESR Photometric method (Bld) [Velocity]on 12-20-2023 ESR, ERYTHROCYTE SEDIMENTATION RATE 60 mm/h High 0-30 [facility] Comment on above: Performed By: #### Chanel ERICKSON CMP, 1986-02 #### [facility] ([id number]) [address] [place] [address] [place] [address] #### [id number] #### [facility] ([id number]) [address] [place] [address], [address] [place] [address] Glucose Glucometer (BldC) [M ass/Vol]on 12-20-2023 Glucose [Mass/Vol] 174 mg/dL High 65-99 [facility] URINALYSISon 12-20-2023 Bilirubin Ql (U) Negative Normal NEG [facility] Comment on above: Performed By: #### U A #### [facility] ([id number]) [address] [place] [address] BLOOD/HGB Negative Normal NEG [facility] Comment on above: Performed By: #### U A #### [facility] ([id number]) [address] [place] [address] Color (U) YELLOW Normal YELLOW [facility] Comment on above: Performed By: #### U A #### [facility] ([id number]) [address] [place] [address]608 Glucose Ql (U) Negative Normal NEG [facility] Comment on above: Performed By: #### U A #### [facility] ([id number]) [address] [place] [address] Ketones Ql (U) Negative Normal NEG [facility] Comment on above: Performed By: #### U A #### [facility] ([id number]) [address] [place] [address] Leukocyte esterase Test strip Ql (U) Negative Normal NEG [facility] Comment on above: Performed By: #### U A #### [facility] ([id number]) [address] [place] [address] 14412 Nitrite Ql (U) Positive Abnormal NEG [facility] Comment on above: Performed By: #### U A #### [facility] ([id number]) [address] [place] [address]18 pH (U) 6.0 [pH] Normal 5.0-8.5 [facility] Comment on above: Performed By: #### U A #### [facility] ([id number]) [address] [place] [address] Protein Ql (U) Negative Normal NEG [facility] Comment on above: Performed By: #### U A #### [facility] ([id number]) [address] [place] [address]1684 R.B.CELLS 0 /hpf Normal 0-5 [facility] Comment on above: Performed By: #### U A #### [facility] ([id number]) [address] [place] [address]108 Specific gravity (U) [Rel density] 1.015 Normal 1.003-1.035 [facility] Comment on above: Performed By: #### U A #### [facility] ([id number]) [address] [place] [address] SQUAMOUS EPITHELIUM 0 to 3 Normal 0-5 [facility] Comment on above: Performed By: #### U A #### [facility] ([id number]) [address] [place] [address] TURBIDITY CLEAR Normal CLEAR [facility] Comment on above: Performed By: #### U A #### [facility] ([id number]) [address] [place] [address] Urobilinogen Qn (U) 0.2 {Mindy'U}/dL Normal <1.1 [facility] Comment on above: Performed By: #### U A #### [facility] ([id number]) [address] [place] [address], [place] [address] W.B.CELLS 0 to 1 Normal 0-5 [facility] Comment on above: Performed By: #### U A #### [facility] ([id number]) [address] [place] [address] XR FOOT LT MIN 3 VWSon XR [...] Bradshaw MD on 12/20/2023 6:37 PM Normal [facility] XR FOOT RT MIN 3 VWSon [...] Bradshaw MD on 12/20/2023 5:56 PM Normal [facility] XR KNEE RT 3 VWSon 4 XR [...] Andreas Araujo MD on 12/20/2023 5:05 PM [facility] 36on 11-16-2023 36 Please let her know her cholesterol levels look good. Continue pravastatin. Thanks [facility] Telephoneon 11-16-2023 Telephone [id number] Maximo Gill 1950 F Date Provider Department Center 11/16/2023 EBER PAGAN Family History Problem Relation Age of Onset Heart attack Father Diabetes Father Hypertension Father Coronary artery disease Father Rheum arthritis Father Family Status - Relation Status Age at Father [facility] 37on 11-01-2023 37 *Increase amlodipine to 10mg daily. You can take 2 tablets of your current 5mg prescription daily until this runs out then start new prescription of 1 - 10mg tablet daily. *Monitor your blood pressure daily 1-2 hours after medications *Have labs drawn *Follow-up with GI given dark stools Normal [facility] Office Visiton 11-01-2023 Follow-up visit [id number] Maximo Gill 1950 F Date Provider Department Center 11/01/2023 EBER PAGAN Family History Problem Relation Age of Onset Heart attack Father Diabetes Father Hypertension Father Coronary artery disease Father Rheum arthritis Father Family Status - Relation Status Age at Father Level of Service:10007 [place] OFFICE/OUTPATIENT ESTABLISHED MOD MDM 30 MIN Reason for Visit and Comments: Atrial Fibrillation [80] Congestive Heart Failure [127] [facility] Office Visiton 05-23-2023 Follow-up visit [id number] Maximo Gill Kassy 1950 F Date Provider Department Center 05/23/2023 RAAMN CASTANEDA [facility] Family History Problem Relation Age of Onset Heart attack Father Diabetes Father Hypertension Father Coronary artery disease Father Rheum arthritis Father Family Status - Relation Status Age at Father Level of Service:[address] [place] OFFICE/OUTPATIENT ESTABLISHED LOW MDM 20-29 MIN Normal [facility] CBC AUTO DIFFon 03-02-2023 BASO # 0.1 103/ul Normal 0.0-0.1 [facility] Comment on above: Performed By: #### C BC #### [facility] [address] [address] [address] Yandy Rodarte Basophils/100 WBC (Bld) 0.4 % Normal 0.2-2.0 [facility] Comment on above: Performed By: #### C BC #### [facility] [address] [address] [address] Yandy Rodarte EO # 0.5 103/ul Normal 0.0-0.7 [facility] Comment on above: Performed By: #### C BC #### [facility] [address] [address] [address] Yandy Rodarte Eosinophils/100 WBC (Bld) 4.1 % Normal 0.9-7.0 [facility] Comment on above: Performed By: #### C BC #### [facility] [address] [address] [address] Yandy Rodarte Erythrocyte distribution width (RBC) [Ratio] 14.0 % Normal 11.0-15.0 [facility] Comment on above: Performed By: #### C BC #### [facility] [address] [address] [address] Yandy Rodarte Hematocrit (Bld) [Volume fraction] 42.8 % Normal 36.0-48.0 [facility] Comment on above: Performed By: #### C BC #### [facility] [address] [address] [address] Yandy Rodarte Hemoglobin (Bld) [Mass/Vol] 13.6 g/dL Normal 12.0-16.0 [facility] Comment on above: Performed By: #### C BC #### [facility] [address] [address] [address] Yandy Rodarte IG # 0.04 10e3/ul Critically high 0.00-0.03 [facility] Comment on above: Performed By: #### C BC #### [facility] [address] [address] [address] Yandy Rodarte IG % 0.4 % Normal 0.0-0.5 [facility] Comment on above: Performed By: #### C BC #### [facility] [address] [place] [address] Dr. Yandy Rodarte LYMPH # 2.2 103/ul Normal 1.2-3.8 [facility] Comment on above: Performed By: #### C BC #### [facility] [address] [place] [address] Dr. Yandy Rodarte Lymphocytes/100 WBC (Bld) 20.0 % Critically low 20.5-60.0 [facility] Comment on above: Performed By: #### C BC #### [facility] [address] [place] [address] Dr. Yandy Rodarte MANUAL DIFF REQ NO Normal [facility] Comment on above: Performed By: #### C BC #### [facility] [address] [place] [address] Dr. Yandy Rodarte MCH (RBC) [Entitic mass] 28.2 pg Normal 26.7-34.0 [facility] Comment on above: Performed By: #### C BC #### [facility] [address] [place] [address] Dr. Yandy Rodarte MCHC (RBC) [Mass/Vol] 31.8 g/dL Normal 29.9-35.2 [facility] Comment on above: Performed By: #### C BC #### [facility] [address] [place] [address] Dr. Yandy Rodarte MCV (RBC) [Entitic vol] 88.8 fL Normal 81.0-99.0 [facility] Comment on above: Performed By: #### C BC #### [facility] [address] [place] [address] Dr. Yandy Rodarte MONO # 0.7 103/ul Normal 0.3-0.8 [facility] Comment on above: Performed By: #### C BC #### [facility] [address] [place] [address] Dr. Yandy Rodarte Monocytes/100 WBC (Bld) 6.3 % Normal 1.7-12.0 [facility] Comment on above: Performed By: #### C BC #### [facility] [address] [place] [address] Dr. Yandy Rodarte NEUT # 7.7 103/ul Critically high 1.4-6.5 [facility] Comment on above: Performed By: #### C BC #### [facility] [address] [place] [address] Dr. Yandy Rodarte Neutrophils/100 WBC (Bld) 68.8 % Normal 43.0-75.0 [facility] Comment on above: Performed By: #### C BC #### [facility] [address] [place] [address] Dr. Yandy Rodarte Platelet mean volume (Bld) [Entitic vol] 9.8 fL Normal 9.5-13.5 [facility] Comment on above: Performed By: #### C BC #### [facility] [address] [place] [address] Dr. Yandy Rodarte PLT 259 103/ul Normal 150-450 [facility] Comment on above: Performed By: #### C BC #### [facility] [address] [place] [address] Dr. Yandy Rodarte RBC 4.82 106/ul Normal 4.20-5.40 [facility] Comment on above: Performed By: #### C BC #### [facility] [address] [place] [address] Dr. Yandy Rodarte WBC 11.2 103/ul Critically high 4.0-11.0 [facility] Comment on above: Performed By: #### C BC #### [facility] [address] [address] [address] Yandy Rodarte ECHOCARDIO M/2D COMPLETEon 0 03-02-2023 ECHOCARDIO M/2D COMPLETE Patient: AFIA GILL Exam Date: 03/02/2023 : 1950 Gender:F Ordering : MRS. JESSICA PRECIADO CERTIFIED ACTIVITIES DIRECTOR Admission #: [id number] Family : Order #: [id number] CLICK HERE TO VIEW EXAM ECHOCARDIOGRAM REPORT [...] Left Atrium LA Volume Index (2D A2C): 487574 mm3 Left Atrium Systolic Dimension: 3.80 cm [...] Gomez M.D. on 03/02/2023 at 19:19 Normal [facility] LIPID PROFILEon 03-02-2023 CHOL-HDL RATIO NORM SEE BELOW Normal [facility] Comment on above: Result Comment: 3.3 - 4.4 LOW RISK 4.4 - 7.1 AVERAGE RISK 7.1 - 11.0 MODERATE RISK >11.0 HIGH RISK Performed By: #### L JONATHAN, CMP #### [facility] [address] [place] [address] Dr. Yandy Rodarte Cholesterol [Mass/Vol] 203 mg/dL Critically high <=200 [facility] Comment on above: Performed By: #### L IPID, CMP #### [facility] [address] [address] [address] Yandy Rodarte Cholesterol in HDL [Mass/Vol] 35 mg/dL Critically low 40-60 [facility] Comment on above: Performed By: #### L IPID, CMP #### [facility] [address] [address] [address] Yandy Rodarte Cholesterol in LDL [Mass/Vol] 123.0 mg/dL Normal [facility] Comment on above: Performed By: #### L IPID, CMP #### [facility] [address] [place] [address] Dr. Yandy Rodarte Cholesterol.total/C holesterol in HDL [Mass ratio] 5.8 {ratio} Normal [facility] Comment on above: Performed By: #### L IPID, CMP #### [facility] [address] [address] [address] Yandy Rodarte HDL NORMAL > or = 60 mg/dl - LO W CARDIOVASCULAR RISK <40 mg/dl - HIGH CARDIOVASCULAR RISK Normal [facility] Comment on above: Performed By: #### L IPID, CMP #### [facility] [address] [place] [address] Dr. Yandy Rodarte LDL CALC NORMAL SEE BELOW Normal [facility] Comment on above: Result Comment: <100 mg/dl OPTIMAL 100 - 129 mg/dl NEAR OR ABOVE OPTIMAL 130 - 159 mg/dl BORDERLINE HIGH 160 - 189 mg/dl HIGH >190 mg/dl VERY HIGH Performed By: #### L IPID, CMP #### [facility] [address] [place] [address] Dr. Yandy Rodarte Triglyceride [Mass/Vol] 225 mg/dL Critically high <=150 [facility] Comment on above: Performed By: #### L IPID, CMP #### [facility] [address] [place] [address] Dr. Yandy Rodarte VLDL CALC 45.0 mg/dL Normal [facility] Comment on above: Performed By: #### L IPID, CMP #### [facility] [address] [place] [address] Dr. Yandy Rodarte PROF 14(COMP METB)on 023 Albumin [Mass/Vol] 3.5 g/dL Normal 3.4-5.0 [facility] Comment on above: Performed By: #### L IPID, CMP #### [facility] [address] [place] [address] Dr. Yandy Rodarte Albumin/Globulin [Mass ratio] 0.8 {ratio} Normal [facility] Comment on above: Performed By: #### L IPID, CMP #### [facility] [address] [place] [address] Dr. Yandy Rodarte ALP [Catalytic activity/Vol] 100 U/L Normal 46-116 [facility] Comment on above: Performed By: #### L IPID, CMP #### [facility] [address] [address] [address] Yandy Rodarte ALT [Catalytic activity/Vol] 22 U/L Normal 14-59 [facility] Comment on above: Performed By: #### L IPID, CMP #### [facility] [address] [address] [address] Yandy Rodarte Anion gap [Moles/Vol] 8.9 mmol/L Normal [facility] Comment on above: Performed By: #### L IPID, CMP #### [facility] [address] [address] [address] Yandy Rodarte AST [Catalytic activity/Vol] 17 U/L Normal 15-37 [facility] Comment on above: Performed By: #### L IPID, CMP #### [facility] [address] [place] [address] Dr. Yandy Rodarte Bilirubin [Mass/Vol] 0.4 mg/dL Normal 0.2-1.0 [facility] Comment on above: Performed By: #### L IPID, CMP #### [facility] [address] [place] [address] Dr. Yandy Rodarte Calcium [Mass/Vol] 9.2 mg/dL Normal 8.5-10.1 [facility] Comment on above: Performed By: #### L IPID, CMP #### [facility] [address] [place] [address] Dr. Yandy Rodarte Chloride [Moles/Vol] 104 mmol/L Normal 98-107 [facility] Comment on above: Performed By: #### L IPID, CMP #### [facility] [address] [address] [address] Yandy Rodarte CO2 [Moles/Vol] 32.6 mmol/L Critically high 21.0-32.0 [facility] Comment on above: Performed By: #### L IPID, CMP #### [facility] [address] [place] [address] Dr. Yandy Rodarte Creatinine [Mass/Vol] 0.81 mg/dL Normal 0.55-1.02 [facility] Comment on above: Performed By: #### L IPID, CMP #### [facility] [address] [place] [address] Dr. Yandy Rodarte EGFR-AF TOGOLESE >60 Normal >=60 [facility] Comment on above: Performed By: #### L IPID, CMP #### [facility] [address] [place] [address] Dr. Yandy Rodarte EGFR-NON AF TOGOLESE >60 Normal >=60 [facility] Comment on above: Performed By: #### L IPID, CMP #### [facility] [address] [place] [address] Dr. Yandy Rodarte Globulin (S) [Mass/Vol] 4.6 g/dL Normal [facility] Comment on above: Performed By: #### L IPID, CMP #### [facility] [address] [place] [address] Dr. Yanyd Rodarte Glucose [Mass/Vol] 114 mg/dL Critically high 74-106 [facility] Comment on above: Performed By: #### L IPID, CMP #### [facility] [address] [place] [address] Dr. Yandy Rodarte Potassium [Moles/Vol] 4.5 mmol/L Normal 3.5-5.1 [facility] Comment on above: Performed By: #### L IPID, CMP #### [facility] [address] [place] [address] Dr. Yandy Rodarte Protein [Mass/Vol] 8.1 g/dL Normal 6.4-8.2 [facility] Comment on above: Performed By: #### L IPID, CMP #### [facility] [address] [place] [address] Dr. Yandy Rodarte Sodium [Moles/Vol] 141 mmol/L Normal 136-145 [facility] Comment on above: Performed By: #### L IPID, CMP #### [facility] [address] [place] [address] Dr. Yandy Rodarte Urea nitrogen [Mass/Vol] 18.0 mg/dL Normal 7.0-18.0 [facility] Comment on above: Performed By: #### L IPID, CMP #### [facility] [address] [place], [place] [address] Dr. Yandy Rodarte Urea nitrogen/Creatinine [Mass ratio] 22.2 mg/mg Normal [facility] Comment on above: Performed By: #### L IPID, CMP #### [facility] [address] [place], [place] [address] Dr. Yandy Rodarte Office Visiton 02-19-2023 Follow-up visit [id number] Maximo Gill 1950 F Date Provider Department Center 02/19/2023 [id number] PRECIADO [facility] Family History Problem Relation Age of Onset Heart attack Father Diabetes Father Hypertension Father Coronary artery disease Father Rheum arthritis Father Family Status - Relation Status Age at Father Level of Service:56295 [place] OFFICE/OUTPATIENT ESTABLISHED MOD MDM 30-39 MIN Reason for Visit and Comments: Follow-up [402265] - 6 month follow up Normal [facility] MG MAMM SCREEN MARIELENA W CADon 0 12-27-2022 MG MAMM SCREEN MARIELENA W CAD Patient: AFIA GILL. Exam Date: 12/27/2022 : 1950 Gender:F Ordering : DR YAHIR BROTHERS M.D. Admission #: [id number] Family : Order #: [id number] CLICK HERE TO VIEW EXAM RADIOLOGY REPORT [...] cervical cancer at age 37. LOCATION: [facility] BREAST COMPOSITION: Scattered areas fibroglandular density. [...] Pang MD on 12/28/2022 at 09:38 Normal [facility] CT SINUSES WO CONon 05-18-20 [...] YAYA ZULUAGA Date: 2022-05-18 08:38 Normal [facility] BASIC METABOLIC PANELon - Calcium [Mass/Vol] 9.6 mg/dL Normal 8.6-10.3 [facility] Comment on above: Order Comment: No: D o not add to previous draw Performed By: #### 5 [id number] #### [facility] [address] [place] [address], [place] Chloride [Moles/Vol] 101 mmol/L Normal 98-107 [facility] Comment on above: Order Comment: No: D o not add to previous draw Performed By: #### 5 [id number] #### [facility] [address] [place] [address], [place] CO2 [Moles/Vol] 29 mmol/L Normal 21-[address] [facility] Comment on above: Order Comment: No: D o not add to previous draw Performed By: #### 5 0608 #### [facility] [address] [place] [address], [facility] Creatinine [Mass/Vol] 0.71 mg/dL Normal 0.60-1.20 [facility] Comment on above: Order Comment: No: D o not add to previous draw Performed By: #### 5 [id number] #### [facility] [address] [place] [address], [place] GFR/1.73 sq M predicted among blacks MDRD (S/P/Bld) [Vol rate/Area] mL/min/{1.73_m2} Normal >60 [facility] Comment on above: Order Comment: No: D o not add to previous draw Performed By: #### 5 [id number] #### [facility] [address] [place] [address], [place] GFR/1.73 sq M predicted among non-blacks MDRD (S/P/Bld) [Vol rate/Area] mL/min/{1.73_m2} Normal >60 [facility] Comment on above: Order Comment: No: D o not add to previous draw Performed By: #### 5 [id number] #### [facility] [address] [place] [address], [place] Glucose [Mass/Vol] 127 mg/dL High 70-100 [facility] Comment on above: Order Comment: No: D o not add to previous draw Performed By: #### 5 0608 #### [facility] [address] [place] [address], [facility] Potassium [Moles/Vol] 4.3 mmol/L Normal 3.5-5.1 [facility] Comment on above: Order Comment: No: D o not add to previous draw Performed By: #### 5 0608 #### [facility] [address] [place] [address], [place] Sodium [Moles/Vol] 137 mmol/L Normal 136-145 [facility] Comment on above: Order Comment: No: D o not add to previous draw Performed By: #### 5 [id number] #### [facility] [address] [place] [address], [facility] Urea nitrogen [Mass/Vol] 20 mg/dL Normal 7-25 [facility] Comment on above: Order Comment: No: D o not add to previous draw Performed By: #### 5 [id number] #### [facility] [address] [place] [address], [facility] CBC COMPLETE BLOOD COUNTon 0 - Erythrocyte distribution width (RBC) [Ratio] 14.6 % Normal 11.5-15.0 [facility] Comment on above: Order Comment: No: D o not add to previous draw Performed By: #### 5 [id number] #### [facility] [address] [place] [address], [facility] Hematocrit (Bld) [Volume fraction] 44.6 % Normal 36.0-45.0 [facility] Comment on above: Order Comment: No: D o not add to previous draw Performed By: #### 5 [id number] #### [facility] [address] [place] [id number], [facility] Hemoglobin (Bld) [Mass/Vol] 14.1 g/dL Normal 12.0-15.0 [facility] Comment on above: Order Comment: No: D o not add to previous draw Performed By: #### 5 [id number] #### [facility] [address] MCH (RBC) [Entitic mass] 30.2 pg Normal 27.0-33.0 [facility] Comment on above: Order Comment: No: D o not add to previous draw Performed By: #### 5 [id number] #### [facility] [address] [place] [id number], [facility] MCHC (RBC) [Mass/Vol] 31.6 g/dL Low 32.0-35.0 [facility] Comment on above: Order Comment: No: D o not add to previous draw Performed By: #### 5 [id number] #### [facility] [address] [place] [address], [facility] MCV (RBC) [Entitic vol] 95.5 fL Normal 82.0-98.0 [facility] Comment on above: Order Comment: No: D o not add to previous draw Performed By: #### 5 [id number] #### [facility] [address] [facility] [address] Nucleated RBC/100 WBC (Bld) [Ratio] 0 % Normal 0-0 [facility] Comment on above: Order Comment: No: D o not add to previous draw Performed By: #### 5 [id number] #### [facility] [address] [place] [address], [facility] PLAT CNT 250 10*3/uL Normal 150-400 [facility] Comment on above: Order Comment: No: D o not add to previous draw Performed By: #### 5 [id number] #### [facility] [address] [facility] [place] [address], [facility] RBC (Bld) [#/Vol] 4.67 10*6/uL Normal 3.80-5.00 [facility] Comment on above: Order Comment: No: D o not add to previous draw Performed By: #### 5 [id number] #### [facility] [address] WBC (Bld) [#/Vol] 9.20 10*3/uL Normal 4.00-10.60 [facility] Comment on above: Order Comment: No: D o not add to previous draw Performed By: #### 5 [id number] #### [facility] [address] POC GLUCOSE LABon 02-02-2019 Glucose [Mass/Vol] 146 mg/dL High 70-100 [facility] Comment on above: Performed By: #### 5 [id number] #### [facility] [address] Glucose [Mass/Vol] 115 mg/dL High 70-100 [facility] Comment on above: Performed By: #### 5 [id number] #### [facility] [address] PROTHROMBIN TIMEon 9 INR Coag (PPP) [Relative time] 1.22 {INR} High 0.91-1.16 [facility] Comment on above: Order Comment: No: [...] 1995;108:[id number]-246S. Performed By: #### 5 [id number] #### [facility] [address] [place] [address], [facility] PT Coag (PPP) [Time] 15.4 s High 12.3-14.8 [facility] Comment on above: Order Comment: No: D o not add to previous draw Result Comment: ALL RESULTS MUST BE INTERPRETED WITH RESPECT TO BLOOD DRAWING ARTIFACT OR DILUTION ERROR OF ANTICOAGULANT AT THE TIME OF SAMPLING. Performed By: #### 5 [id number] #### [facility] [address] [facility] [place] [address], [facility] POC GLUCOSE LABon 02-01-2019 Glucose [Mass/Vol] 152 mg/dL High 70-100 The [facility] Comment on above: Performed By: #### 5 [id number] #### [facility] [address] [facility] [place] [address], [facility] Glucose [Mass/Vol] 118 mg/dL High 70-100 [facility] Comment on above: Performed By: #### 5 0608 #### [facility] [address] [facility] [place] [address], [facility] Glucose [Mass/Vol] 197 mg/dL High 70-100 [facility] Comment on above: Performed By: #### 5 0608 #### [facility] [address] [facility] [place] [address], [facility] Glucose [Mass/Vol] 123 mg/dL High 70-100 [facility] Comment on above: Performed By: #### 5 [id number] #### [facility] [address] [facility] [place] [address], [facility] PROTHROMBIN TIMEon 9 INR Coag (PPP) [Relative time] 1.24 {INR} High 0.91-1.16 The [facility] Comment on above: Order Comment: Unkno [...] 1995;108:231S-246S. Performed By: #### 0 0071 #### [facility] [address] PT Coag (PPP) [Time] 15.6 s High 12.3-14.8 The [facility] Comment on above: Order Comment: Unkno wn Result Comment: ALL RESULTS MUST BE INTERPRETED WITH RESPECT TO BLOOD DRAWING ARTIFACT OR DILUTION ERROR OF ANTICOAGULANT AT THE TIME OF SAMPLING. Performed By: #### 0 0071 #### [facility] [address] [facility]. [address] BASIC METABOLIC PANELon 01-20 Calcium [Mass/Vol] 9.5 mg/dL Normal 8.6-10.3 [facility] Comment on above: Order Comment: No: D o not add to previous draw Performed By: #### 0 0071 #### [facility] [address] Chloride [Moles/Vol] 98 mmol/L Normal 98-107 The [facility] Comment on above: Order Comment: No: D o not add to previous draw Performed By: #### 0 0071 #### [facility] [address] [place] [address], [place] CO2 [Moles/Vol] 29 mmol/L Normal 21-[address] [facility] Comment on above: Order Comment: No: D o not add to previous draw Performed By: #### 0 0071 #### [facility] [address] [place] [address], [place] Creatinine [Mass/Vol] 0.72 mg/dL Normal 0.60-1.20 The [facility] Comment on above: Order Comment: No: D o not add to previous draw Performed By: #### 0 0071 #### [facility] [address] [place] [address], [place] GFR/1.73 sq M predicted among blacks MDRD (S/P/Bld) [Vol rate/Area] mL/min/{1.73_m2} Normal >60 The [facility] Comment on above: Order Comment: No: D o not add to previous draw Performed By: #### 0 0071 #### [facility] [address] [place] [address], [place] GFR/1.73 sq M predicted among non-blacks MDRD (S/P/Bld) [Vol rate/Area] mL/min/{1.73_m2} Normal >60 The [facility] Comment on above: Order Comment: No: D o not add to previous draw Performed By: #### 0 0071 #### [facility] [address] [place] [address], [place] Glucose [Mass/Vol] 120 mg/dL High 70-100 [facility] Comment on above: Order Comment: No: D o not add to previous draw Performed By: #### 0 0071 #### [facility] [address] [place] [address], [place] Potassium [Moles/Vol] 3.5 mmol/L Normal 3.5-5.1 The [facility] Comment on above: Order Comment: No: D o not add to previous draw Performed By: #### 0 0071 #### [facility] [address] [place] [id number], [facility] Sodium [Moles/Vol] 138 mmol/L Normal 136-145 [facility] Comment on above: Order Comment: No: D o not add to previous draw Performed By: #### 0 0071 #### [facility] [address] [place] [address], [facility] Urea nitrogen [Mass/Vol] 20 mg/dL Normal 7-25 [facility] Comment on above: Order Comment: No: D o not add to previous draw Performed By: #### 0 0071 #### [facility] [address] [place] [address], [facility] CBC COMPLETE BLOOD COUNTon - Erythrocyte distribution width (RBC) [Ratio] 14.6 % Normal 11.5-15.0 [facility] Comment on above: Order Comment: No: D o not add to previous draw Performed By: #### 0 0071 #### [facility] [address] [place] [address], [facility] Hematocrit (Bld) [Volume fraction] 42.7 % Normal 36.0-45.0 [facility] Comment on above: Order Comment: No: D o not add to previous draw Performed By: #### 0 0071 #### [facility] [address] [place] [address], [facility] Hemoglobin (Bld) [Mass/Vol] 13.8 g/dL Normal 12.0-15.0 [facility] Comment on above: Order Comment: No: D o not add to previous draw Performed By: #### 0 0071 #### [facility] [address] [place] [id number], [facility] MCH (RBC) [Entitic mass] 31.0 pg Normal 27.0-33.0 [facility] Comment on above: Order Comment: No: D o not add to previous draw Performed By: #### 0 0071 #### [facility] [address] [place] [address], [facility] MCHC (RBC) [Mass/Vol] 32.3 g/dL Normal 32.0-35.0 [facility] Comment on above: Order Comment: No: D o not add to previous draw Performed By: #### 0 0071 #### [facility] [address] [facility] [address], [facility] MCV (RBC) [Entitic vol] 96.0 fL Normal 82.0-98.0 [facility] Comment on above: Order Comment: No: D o not add to previous draw Performed By: #### 0 0071 #### [facility] [address] [facility] [address] Nucleated RBC/100 WBC (Bld) [Ratio] 0 % Normal 0-0 [facility] Comment on above: Order Comment: No: D o not add to previous draw Performed By: #### 0 0071 #### [facility] [address] [place] [address], [facility] PLAT CNT 217 10*3/uL Normal 150-400 The [facility] Comment on above: Order Comment: No: D o not add to previous draw Performed By: #### 0 0071 #### [facility] [address] [facility] [place] [address], [facility] RBC (Bld) [#/Vol] 4.45 10*6/uL Normal 3.80-5.00 The [facility] Comment on above: Order Comment: No: D o not add to previous draw Performed By: #### 0 0071 #### [facility] [address] [place] [address], [facility] WBC (Bld) [#/Vol] 9.17 10*3/uL Normal 4.00-10.60 The [facility] Comment on above: Order Comment: No: D o not add to previous draw Performed By: #### 0 0071 #### [facility] [address] [facility] [place] [address], [facility] POC GLUCOSE LABon 01-31-2019 Glucose [Mass/Vol] 116 mg/dL High 70-100 [facility] Comment on above: Performed By: #### 0 0071 #### [facility] [address] [facility] [place] [address], [facility] Glucose [Mass/Vol] 122 mg/dL High 70-100 [facility] Comment on above: Performed By: #### 0 0071 #### [facility] [address] [facility] [place] [address], [facility] Glucose [Mass/Vol] 191 mg/dL High 70-100 The [facility] Comment on above: Performed By: #### 0 0071 #### [facility] [address] [facility] [place] [address], [facility] Glucose [Mass/Vol] 131 mg/dL High 70-100 [facility] Comment on above: Performed By: #### 0 0071 #### [facility] [address] [place] [address], [facility] PROTHROMBIN TIMEon 9 INR Coag (PPP) [Relative time] 1.24 {INR} High 0.91-1.16 The [facility] Comment on above: Order Comment: Unkno [...] 1995;108:231S-246S. Performed By: #### 0 0071 #### [facility] [address] [place] [address], [facility] PT Coag (PPP) [Time] 15.6 s High 12.3-14.8 [facility] Comment on above: Order Comment: Unkno wn Result Comment: ALL RESULTS MUST BE INTERPRETED WITH RESPECT TO BLOOD DRAWING ARTIFACT OR DILUTION ERROR OF ANTICOAGULANT AT THE TIME OF SAMPLING. Performed By: #### 0 0071 #### [facility] [address] BASIC METABOLIC PANELon 01-20 Calcium [Mass/Vol] 10.0 mg/dL Normal 8.6-10.3 [facility] Comment on above: Order Comment: No: D o not add to previous draw Performed By: #### 0 0071 #### [facility] [address] [place] [address], [facility] Chloride [Moles/Vol] 99 mmol/L Normal 98-107 The [facility] Comment on above: Order Comment: No: D o not add to previous draw Performed By: #### 0 0071 #### [facility] 3000 [place] [id number], [facility] CO2 [Moles/Vol] 30 mmol/L Normal 21-[address] [facility] Comment on above: Order Comment: No: D o not add to previous draw Performed By: #### 0 0071 #### [facility] [address] [place] [address], [facility] Creatinine [Mass/Vol] 0.74 mg/dL Normal 0.60-1.20 The [facility] Comment on above: Order Comment: No: D o not add to previous draw Performed By: #### 0 0071 #### [facility] [address] [place] [address], [place] GFR/1.73 sq M predicted among blacks MDRD (S/P/Bld) [Vol rate/Area] mL/min/{1.73_m2} Normal >60 [facility] Comment on above: Order Comment: No: D o not add to previous draw Performed By: #### 0 0071 #### [facility] [address] [place] [address], [place] GFR/1.73 sq M predicted among non-blacks MDRD (S/P/Bld) [Vol rate/Area] mL/min/{1.73_m2} Normal >60 [facility] Comment on above: Order Comment: No: D o not add to previous draw Performed By: #### 0 0071 #### [facility] [address] [place] [address], [place] Glucose [Mass/Vol] 112 mg/dL High 70-100 [facility] Comment on above: Order Comment: No: D o not add to previous draw Performed By: #### 0 0071 #### [facility] [address] [place] [address], [place] Potassium [Moles/Vol] 4.3 mmol/L Normal 3.5-5.1 [facility] Comment on above: Order Comment: No: D o not add to previous draw Performed By: #### 0 0071 #### [facility] [address] [place] [address], [place] Sodium [Moles/Vol] 137 mmol/L Normal 136-145 [facility] Comment on above: Order Comment: No: D o not add to previous draw Performed By: #### 0 0071 #### [facility] [address] [place] [address], [place] Urea nitrogen [Mass/Vol] 20 mg/dL Normal 7-25 [facility] Comment on above: Order Comment: No: D o not add to previous draw Performed By: #### 0 0071 #### [facility] [address] [place] [address], [place] Calcium [Mass/Vol] 9.3 mg/dL Normal 8.6-10.3 [facility] Comment on above: Order Comment: No: D o not add to previous draw Performed By: #### 5 [id number] #### [facility] [address] [place] [address], [place] Chloride [Moles/Vol] 103 mmol/L Normal 98-107 [facility] Comment on above: Order Comment: No: D o not add to previous draw Performed By: #### 5 6101 #### [facility] [address] [place] [address], [place] CO2 [Moles/Vol] 28 mmol/L Normal 21-31 [facility] Comment on above: Order Comment: No: D o not add to previous draw Performed By: #### 5 [id number] #### [facility] [address] [place] [address], [place] Creatinine [Mass/Vol] 0.62 mg/dL Normal 0.60-1.20 [facility] Comment on above: Order Comment: No: D o not add to previous draw Performed By: #### 5 [id number] #### [facility] [address] [place] [address], [place] GFR/1.73 sq M predicted among blacks MDRD (S/P/Bld) [Vol rate/Area] mL/min/{1.73_m2} Normal >60 [facility] Comment on above: Order Comment: No: D o not add to previous draw Performed By: #### 5 [id number] #### [facility] [address] [place] [address], [facility] GFR/1.73 sq M predicted among non-blacks MDRD (S/P/Bld) [Vol rate/Area] mL/min/{1.73_m2} Normal >60 [facility] Comment on above: Order Comment: No: D o not add to previous draw Performed By: #### 5 [id number] #### [facility] [address] [place] [address], [place] Glucose [Mass/Vol] 117 mg/dL High 70-100 The [facility] Comment on above: Order Comment: No: D o not add to previous draw Performed By: #### 5 6101 #### [facility] [address] [place] [address], [place] Potassium [Moles/Vol] 3.5 mmol/L Normal 3.5-5.1 [facility] Comment on above: Order Comment: No: D o not add to previous draw Performed By: #### 5 6101 #### [facility] [address] [place] [address], [place] Sodium [Moles/Vol] 140 mmol/L Normal 136-145 [facility] Comment on above: Order Comment: No: D o not add to previous draw Performed By: #### 5 [id number] #### [facility] [address] [place] [address], [place] Urea nitrogen [Mass/Vol] 15 mg/dL Normal 7-25 [facility] Comment on above: Order Comment: No: D o not add to previous draw Performed By: #### 5 [id number] #### [facility] [address] [place] [address], [place] CBC COMPLETE BLOOD COUNTon 0 - Erythrocyte distribution width (RBC) [Ratio] 14.6 % Normal 11.5-15.0 [facility] Comment on above: Order Comment: No: D o not add to previous draw Performed By: #### 5 [id number] #### [facility] [address] [place] [address], [facility] Hematocrit (Bld) [Volume fraction] 42.1 % Normal 36.0-45.0 [facility] Comment on above: Order Comment: No: D o not add to previous draw Performed By: #### 5 [id number] #### [facility] [address] [place] [address], [facility] Hemoglobin (Bld) [Mass/Vol] 13.4 g/dL Normal 12.0-15.0 [facility] Comment on above: Order Comment: No: D o not add to previous draw Performed By: #### 5 [id number] #### [facility] [address] [place] [address], [facility] MCH (RBC) [Entitic mass] 30.6 pg Normal 27.0-33.0 [facility] Comment on above: Order Comment: No: D o not add to previous draw Performed By: #### 5 [id number] #### [facility] [address] [place] [address], [facility] MCHC (RBC) [Mass/Vol] 31.8 g/dL Low 32.0-35.0 [facility] Comment on above: Order Comment: No: D o not add to previous draw Performed By: #### 5 [id number] #### [facility] [address] [place] [address], [facility] MCV (RBC) [Entitic vol] 96.1 fL Normal 82.0-98.0 [facility] Comment on above: Order Comment: No: D o not add to previous draw Performed By: #### 5 [id number] #### [facility] [address] [place] [id number], [facility] Nucleated RBC/100 WBC (Bld) [Ratio] 0 % Normal 0-0 [facility] Comment on above: Order Comment: No: D o not add to previous draw Performed By: #### 5 6101 #### [facility] [address] PLAT CNT 215 10*3/uL Normal 150-400 [facility] Comment on above: Order Comment: No: D o not add to previous draw Performed By: #### 5 [id number] #### [facility] [address] RBC (Bld) [#/Vol] 4.38 10*6/uL Normal 3.80-5.00 The [facility] Comment on above: Order Comment: No: D o not add to previous draw Performed By: #### 5 [id number] #### [facility] [address] WBC (Bld) [#/Vol] 8.75 10*3/uL Normal 4.00-10.60 The [facility] Comment on above: Order Comment: No: D o not add to previous draw Performed By: #### 5 6101 #### [address] Cardiovascular Lab Reporton 01-30-2019 Cardiovascular Lab Report [facility] Patient Name: Afia Gill [facility] MR #: [id number] Department of Physician: Raman Allen Tayler Gomez M.D. Division of Service Date: 01/29/2019 Cardiology Birthdate: 1950 Adult Cardiovascular Room #: 3AB [id number] [place] [address] Cardiovascular Laboratory Report INDICATION: The patient is [...] signed informed consent. She was brought to lab[facility] pipelines in a fasting state. The right neck area was prepped and draped in usual fashion. Using ultrasound guidance and micropuncture technique, the internal jugular vein was accessed. A 6-German x 11 cm sheath was placed. A 6-German Caldera catheter was used for right heart catheterization with measurement of pressures and calculation of cardiac output using the estimated Nader method. The Caldera catheter was removed. Using ultrasound guidance and micropuncture technique, the right radial artery was accessed. A 6-German x 11 cm Hydrophilic sheath was advanced. Verapamil was given through the sheath and a bolus of bivalirudin was given intravenously as the patient has prior history of heparin-induced thrombocytopenia. Note that, the care was taken to avoid any use of heparin during the procedure. Bilateral selective coronary angiography was then performed using 6-German JL3.5 and JR5 diagnostic catheters. Catheters were removed. A 6-German angled pigtail catheter was advanced over the [...] with 30% left ventricular ejection fraction. 3. [id number] mitral regurgitation. 4. Severely elevated filling pressures. [...] Gomez M.D. Date Trans: 01/30/2019 07:50 Kassy/ivan [id number] cc: Yahir Brothers M.D. [address] [place] [address] Yahir Mijares M.D. [address] [place] [address] Normal The [facility] MAGNESIUM BLOODon 01-30-2019 Magnesium [Mass/Vol] 2.2 mg/dL Normal 1.9-2.7 [facility] Comment on above: Order Comment: No: D o not add to previous draw Performed By: #### 0 0071 #### [facility] [address] [facility] [place] [address], [facility] Magnesium [Mass/Vol] 2.2 mg/dL Normal 1.9-2.7 [facility] Comment on above: Order Comment: No: D o not add to previous draw Performed By: #### 5 [id number] #### [facility] 3000 [place] [address], [facility] POC GLUCOSE LABon 01-30-2019 Glucose [Mass/Vol] 107 mg/dL High 70-100 The [facility] Comment on above: Performed By: #### 5 6101 #### [facility] [address] [place] [address], [facility] Glucose [Mass/Vol] 125 mg/dL High 70-100 The [facility] Comment on above: Performed By: #### 5 [id number] #### [facility] [address] [place] [address], [place] Glucose [Mass/Vol] 137 mg/dL High 70-100 [facility] Comment on above: Performed By: #### 5 6101 #### [facility] [address] [place] [address], [facility] Glucose [Mass/Vol] 114 mg/dL High 70-100 The [facility] Comment on above: Performed By: #### 5 [id number] #### [facility] [address] [place] [address], [facility] PROTHROMBIN TIMEon 9 INR Coag (PPP) [Relative time] 1.23 {INR} High 0.91-1.16 [facility] Comment on above: Order Comment: No: [...] 1995;108:231S-246S. Performed By: #### 5 [id number] #### [facility] [address] PT Coag (PPP) [Time] 15.5 s High 12.3-14.8 [facility] Comment on above: Order Comment: No: D o not add to previous draw Result Comment: ALL RESULTS MUST BE INTERPRETED WITH RESPECT TO BLOOD DRAWING ARTIFACT OR DILUTION ERROR OF ANTICOAGULANT AT THE TIME OF SAMPLING. Performed By: #### 5 [id number] #### [facility] [address] TSH3on 01-30-2019 TSH 3RD GENERATION 1.24 uIU/mL Normal 0.34-5.60 The [facility] Comment on above: Order Comment: No: D o not add to previous draw Performed By: #### 5 [id number] #### [facility] [address] [facility] [address] CBC COMPLETE BLOOD COUNTon 0 01-29-2019 Erythrocyte distribution width (RBC) [Ratio] 14.7 % Normal 11.5-15.0 [facility] Comment on above: Order Comment: No: D o not add to previous draw Performed By: #### 5 0608 #### [facility] [address] Hematocrit (Bld) [Volume fraction] 43.4 % Normal 36.0-45.0 [facility] Comment on above: Order Comment: No: D o not add to previous draw Performed By: #### 5 0608 #### [facility] [address] Hemoglobin (Bld) [Mass/Vol] 13.8 g/dL Normal 12.0-15.0 [facility] Comment on above: Order Comment: No: D o not add to previous draw Performed By: #### 5 0608 #### [facility] [address] [facility] [place] [address], [facility] MCH (RBC) [Entitic mass] 30.3 pg Normal 27.0-33.0 [facility] Comment on above: Order Comment: No: D o not add to previous draw Performed By: #### 5 0608 #### [facility] [address] [place] [address], [facility] MCHC (RBC) [Mass/Vol] 31.8 g/dL Low 32.0-35.0 [facility] Comment on above: Order Comment: No: D o not add to previous draw Performed By: #### 5 0608 #### [facility] [address] [facility] [place] [address], [facility] MCV (RBC) [Entitic vol] 95.2 fL Normal 82.0-98.0 [facility] Comment on above: Order Comment: No: D o not add to previous draw Performed By: #### 5 0608 #### [facility] [address] [facility]. [address] Nucleated RBC/100 WBC (Bld) [Ratio] 0 % Normal 0-0 [facility] Comment on above: Order Comment: No: D o not add to previous draw Performed By: #### 5 0608 #### [facility] [address] [place] [address], [facility] PLAT CNT 240 10*3/uL Normal 150-400 [facility] Comment on above: Order Comment: No: D o not add to previous draw Performed By: #### 5 0608 #### [facility] [address] [place] [address], [facility] RBC (Bld) [#/Vol] 4.56 10*6/uL Normal 3.80-5.00 The [facility] Comment on above: Order Comment: No: D o not add to previous draw Performed By: #### 5 0608 #### [facility] [address] [place] [address], [facility] WBC (Bld) [#/Vol] 9.28 10*3/uL Normal 4.00-10.60 The [facility] Comment on above: Order Comment: No: D o not add to previous draw Performed By: #### 5 [id number] #### [facility] [address] [place] [address], [place] COMP METABOLIC PANELon 01-29 Albumin [Mass/Vol] 4.1 g/dL Normal 3.5-5.7 [facility] Comment on above: Order Comment: No: D o not add to previous draw Performed By: #### 1 0070, 09965, 99381 #### [facility] [address] [place] [address], [place] ALKALINE PHOSPH 50 IU/L Normal 34-[address] [facility] Comment on above: Order Comment: No: D o not add to previous draw Performed By: #### 1 0070, 79264, 03665 #### [facility] [address] [place] [address], [place] ALT [Catalytic activity/Vol] 14 U/L Normal 7-52 The [facility] Comment on above: Order Comment: No: D o not add to previous draw Performed By: #### 1 0070, 44631, 52172 #### [facility] [address] [place] [address], [place] AST [Catalytic activity/Vol] 15 U/L Normal 13-39 The [facility] Comment on above: Order Comment: No: D o not add to previous draw Performed By: #### 1 0070, 46302, 72063 #### [facility] [address] [place] [address], [place] Bilirubin [Mass/Vol] 0.8 mg/dL Normal 0.3-1.0 The [facility] Comment on above: Order Comment: No: D o not add to previous draw Performed By: #### 1 0, 92997, 97891 #### [facility] [address] [place] [address], [place] Calcium [Mass/Vol] 9.6 mg/dL Normal 8.6-10.3 [facility] Comment on above: Order Comment: No: D o not add to previous draw Performed By: #### 1 0070, 31188, 97049 #### [facility] [address] [place] [address], [place] Chloride [Moles/Vol] 103 mmol/L Normal 98-107 The [facility] Comment on above: Order Comment: No: D o not add to previous draw Performed By: #### 1 0, , 67433 #### [facility] [address] [place] [address], [place] CO2 [Moles/Vol] 30 mmol/L Normal 21-31 [facility] Comment on above: Order Comment: No: D o not add to previous draw Performed By: #### 1 0, 75477, 68354 #### [facility] [address] [place] [address], [place] Creatinine [Mass/Vol] 0.71 mg/dL Normal 0.60-1.20 The [facility] Comment on above: Order Comment: No: D o not add to previous draw Performed By: #### 1 0, 81752, 63522 #### [facility] [address] [place] [address], [place] GFR/1.73 sq M predicted among blacks MDRD (S/P/Bld) [Vol rate/Area] mL/min/{1.73_m2} Normal >60 The [facility] Comment on above: Order Comment: No: D o not add to previous draw Performed By: #### 1 0, , 96127 #### [facility] [address] [place] [address], [place] GFR/1.73 sq M predicted among non-blacks MDRD (S/P/Bld) [Vol rate/Area] mL/min/{1.73_m2} Normal >60 The [facility] Comment on above: Order Comment: No: D o not add to previous draw Performed By: #### 1 0, , 62005 #### [facility] [address] [place] [address], [place] Glucose [Mass/Vol] 116 mg/dL High 70-100 The [facility] Comment on above: Order Comment: No: D o not add to previous draw Performed By: #### 1 69, , 71350 #### [facility] [address] [place] [address], [place] Potassium [Moles/Vol] 3.9 mmol/L Normal 3.5-5.1 The [facility] Comment on above: Order Comment: No: D o not add to previous draw Performed By: #### 1 0, , 23279 #### [facility] [address] [place] [address], [place] Protein [Mass/Vol] 7.6 g/dL Normal 6.0-8.3 The [facility] Comment on above: Order Comment: No: D o not add to previous draw Performed By: #### 1 0, , 54373 #### [facility] [address] [place] [address], [place] Sodium [Moles/Vol] 140 mmol/L Normal 136-145 The [facility] Comment on above: Order Comment: No: D o not add to previous draw Performed By: #### 1 69, , 50398 #### [facility] [address] [place] [address], [place] Urea nitrogen [Mass/Vol] 18 mg/dL Normal 7-25 The [facility] Comment on above: Order Comment: No: D o not add to previous draw Performed By: #### 1 0070, 82972, 48723 #### [facility] [address] [place] [address], [facility] HEMOGLOBIN A1Con 01-29-2019 HbA1c (Bld) [Mass fraction] 6.1 % High 4.0-6.0 The [facility] Comment on above: Order Comment: Yes: Add to Previous draw if able Performed By: #### 5 6101 #### [facility] [address] [place] [address], [facility] HbA1c (Bld) [Mass fraction] 128 mg/dL High 70-126 The [facility] Comment on above: Order Comment: Yes: Add to Previous draw if able Performed By: #### 5 6101 #### [facility] [address] [place] [address], [facility] LIPID PROFILEon 01-29-2019 Cholesterol [Mass/Vol] 130 mg/dL Normal 120-200 The [facility] Comment on above: Result Comment: CHOL ESTEROL REFERENCE RANGE: 20 YEARS AND OLDER CARDIOVASCULAR RISK Less than 200 mg/dl Low Risk 200 to 239 mg/dl Borderline Risk 240 mg/dl and greater High Risk Performed By: #### 1 0, 76629, 80329 #### [facility] [address] [place] [address], [facility] Cholesterol in HDL [Mass/Vol] 31 mg/dL Normal 23-92 The [facility] Comment on above: Result Comment: Slig ht variation in normal range could be due to gender and/or age. HDL CHOLESTEROL REFERENCE RANGE: 20 years and older Cardiovascular Risk > or =60 mg/dL Desirable 40 TO 59 mg/dL Low Risk <40 mg/dL High Risk Performed By: #### 1 0070, 43359, 81397 #### [facility] [address] [place] [address], [facility] Cholesterol in LDL [Mass/Vol] 67 mg/dL Normal 0-130 The [facility] Comment on above: Result Comment: LDL IS A CALCULATION LDL IS ONLY VALID IF THE TRIG IS LESS THAN 400. Performed By: #### 1 0, 11144, 76682 #### [facility] [address] [place] [address], [facility] Cholesterol.total/C holesterol in HDL [Mass ratio] 4.2 {ratio} Normal .0-4.5 The [facility] Comment on above: Performed By: #### 1 0, , 18557 #### [facility] [address] [place] [address], [facility] NON-HDL CHOLESTEROL 99 mg/dL Normal The [facility] Comment on above: Performed By: #### 1 0, , 62159 #### [facility] [address] [place] [address], [facility] Triglyceride [Mass/Vol] 158 mg/dL High 40-149 The [facility] Comment on above: Result Comment: TRIG LYCERIDE REFERENCE RANGE: 20 YEARS AND OLDER CARDIOVASCULAR RISK LESS THAN 150 mg/dl LOW RISK 150 TO 199 mg/dl BORDERLINE RISK 200 mg/dl AND GREATER HIGH RISK Performed By: #### 1 69, 17006, 09444 #### [facility] [address] [place] [address], [facility] VLDL CHOL 32 mg/dL Normal 0-40 The [facility] Comment on above: Performed By: #### 1 69, 17457, 56266 #### [facility] [address] [place] [address], [place] MAGNESIUM BLOODon 01-29-2019 Magnesium [Mass/Vol] 2.2 mg/dL Normal 1.9-2.7 The [facility] Comment on above: Order Comment: No: D o not add to previous draw Performed By: #### 1 69, 08011, 99489 #### [facility] [address] [place] [address], [facility] POC GLUCOSE LABon 01-29-2019 Glucose [Mass/Vol] 102 mg/dL High 70-100 The [facility] Comment on above: Performed By: #### 8 5499 #### [facility] [address] [place] [address], [facility] Glucose [Mass/Vol] 131 mg/dL High 70-100 The [facility] Comment on above: Performed By: #### 8 5499 #### [facility] [address] [address], [facility] PROTHROMBIN TIMEon 9 INR Coag (PPP) [Relative time] 1.39 {INR} High 0.91-1.16 The [facility] Comment on above: Order Comment: Yes: [...] 1995;108:231S-246S. Performed By: #### 5 6101 #### [facility] [address] [place] [address], [facility] PT Coag (PPP) [Time] 17.1 s High 12.3-14.8 The [facility] Comment on above: Order Comment: Yes: Add to Previous draw if able Result Comment: ALL RESULTS MUST BE INTERPRETED WITH RESPECT TO BLOOD DRAWING ARTIFACT OR DILUTION ERROR OF ANTICOAGULANT AT THE TIME OF SAMPLING. Performed By: #### 5 6101 #### [facility] [address] [place] [address], [facility] BASIC METABOLIC PANELon 04-0 Calcium [Mass/Vol] 10.1 mg/dL Normal 8.6-10.3 [facility] Comment on above: Performed By: #### 0 0071 #### [facility] [address] [place] [address], [place] Chloride [Moles/Vol] 100 mmol/L Normal 98-107 [facility] Comment on above: Performed By: #### 0 0071 #### [facility] [address] [place] [address], [place] CO2 [Moles/Vol] 30 mmol/L Normal 21-31 [facility] Comment on above: Performed By: #### 0 0071 #### [facility] [address] [place] [address], [facility] Creatinine [Mass/Vol] 0.71 mg/dL Normal 0.60-1.20 [facility] Comment on above: Performed By: #### 0 0071 #### [facility] [address] [place] [address], [place] GFR/1.73 sq M predicted among blacks MDRD (S/P/Bld) [Vol rate/Area] mL/min/{1.73_m2} Normal >60 The [facility] Comment on above: Performed By: #### 0 0071 #### [facility] [address] [place] [address], [facility] GFR/1.73 sq M predicted among non-blacks MDRD (S/P/Bld) [Vol rate/Area] mL/min/{1.73_m2} Normal >60 [facility] Comment on above: Performed By: #### 0 0071 #### [facility] [address] [place] [address], [facility] Glucose [Mass/Vol] 93 mg/dL Normal 70-100 The [facility] Comment on above: Performed By: #### 0 0071 #### [facility] [address] [place] [address], [facility] Potassium [Moles/Vol] 3.7 mmol/L Normal 3.5-5.1 The [facility] Comment on above: Performed By: #### 0 0071 #### [facility] [address] [place] [address], [facility] Sodium [Moles/Vol] 139 mmol/L Normal 136-145 The [facility] Comment on above: Performed By: #### 0 0071 #### [facility] [address] [place] [address], [facility] Urea nitrogen [Mass/Vol] 16 mg/dL Normal 7-25 The [facility] Comment on above: Performed By: #### 0 0071 #### [facility] [address] [place] [address], [facility] CBC COMPLETE BLOOD COUNTon 0 01-22-2019 Erythrocyte distribution width (RBC) [Ratio] 14.9 % Normal 11.5-15.0 The [facility] Comment on above: Performed By: #### 5 0608 #### [facility] [address] [place] [address], [facility] Hematocrit (Bld) [Volume fraction] 43.0 % Normal 36.0-45.0 The [facility] Comment on above: Performed By: #### 5 0608 #### [facility] [address] [place] [address], [facility] Hemoglobin (Bld) [Mass/Vol] 13.7 g/dL Normal 12.0-15.0 [facility] Comment on above: Performed By: #### 5 0608 #### [facility] [address] [place] [address], [facility] MCH (RBC) [Entitic mass] 30.0 pg Normal 27.0-33.0 The [facility] Comment on above: Performed By: #### 5 0608 #### [facility] [address] [facility] [place] [address], [facility] MCHC (RBC) [Mass/Vol] 31.9 g/dL Low 32.0-35.0 The [facility] Comment on above: Performed By: #### 5 0608 #### [facility] [address] [place] [address], [facility] MCV (RBC) [Entitic vol] 94.3 fL Normal 82.0-98.0 The [facility] Comment on above: Performed By: #### 5 0608 #### [facility] [address] [facility]. [address] Nucleated RBC/100 WBC (Bld) [Ratio] 0 % Normal 0-0 The [facility] Comment on above: Performed By: #### 5 0608 #### [facility] [address] [place] [address], [facility] PLAT CNT 270 10*3/uL Normal 150-400 The [facility] Comment on above: Performed By: #### 5 0608 #### [facility] [address] [facility] [place] [place] [address], [facility] RBC (Bld) [#/Vol] 4.56 10*6/uL Normal 3.80-5.00 The [facility] Comment on above: Performed By: #### 5 0608 #### [facility] [address] [place] [address], [facility] WBC (Bld) [#/Vol] 9.44 10*3/uL Normal 4.00-10.60 The [facility] Comment on above: Performed By: #### 5 0608 #### [facility] [address] PROTHROMBIN TIMEon INR Coag (PPP) [Relative time] 1.85 {INR} High 0.91-1.16 The [facility] Comment on above: Result Comment: ACCC P [...] 1995;108:231S-246S. Performed By: #### 5 6101 #### [facility] [address] PT Coag (PPP) [Time] 21.4 s High 12.3-14.8 The [facility] Comment on above: Result Comment: ALL RESULTS MUST BE INTERPRETED WITH RESPECT TO BLOOD DRAWING ARTIFACT OR DILUTION ERROR OF ANTICOAGULANT AT THE TIME OF SAMPLING. Performed By: #### 5 6101 #### [facility] [address] [place] [address], [facility] Encounters Encounter Date Encounter Type Care Provider Facility Start: 01-11-2024 End: 01-11-2024 ambulatory ANITA MONTES [facility] Start: 12-31-2023 End: 12-31-2023 ambulatory YAHIR BROTHERS [facility] Start: 12-26-2023 End: 12-29-2023 Evaluation and management of inpatient COLIN KEITH [facility] Start: 12-25-2023 End: 12-29-2023 Evaluation and management of inpatient BIJAL BARNHART [facility] Start: 12-21-2023 End: 12-29-2023 Orders Only Korina Oliver MD Work Phone: [facility] Start: 12-20-2023 End: 12-29-2023 Emergency department patient visit [facility] Start: 12-20-2023 End: 12-29-2023 Emergency department patient visit DANAE BRITTON [facility] Start: 12-20-2023 End: 12-28-2023 Evaluation and management of inpatient [facility] Start: 11-01-2023 End: 11-01-2023 ambulatory EBER JOSHUA [facility] Start: 10-31-2023 End: 10-31-2023 ambulatory YAHIR BROTHERS Not Available Start: 09-05-2023 End: 09-05-2023 ambulatory YAHIR BROTHERS Not Available Start: 07-07-2023 End: 07-10-2023 ambulatory YAHIR BROTHERS Not Available Start: 05-23-2023 End: 05-23-2023 ambulatory RAMAN GOMEZ [facility] Start: 03-02-2023 End: 03-03-[address] DOCTOR LOYOLA Facility:[facility] Start: 02-19-2023 End: 02-19-2023 [facility] Start: 12-27-2022 End: 12-28-[address] [...] Td Vaccines (2 - Td or Tdap) [facility] Start: 12-20-2024 Adult BMI Screening Adult BMI Screen ing [facility] Start: 12-20-2024 Tobacco Screening Tobacco Screening [facility] Start: 06-22-2023 COVID-19 Vaccine () COVID-19 Vaccine () [facility] Start: 2017 Fall Risk Screening Fall Risk Screen ing [facility] Start: 1970 Adult BMI Follow Up Plan Adult BMI Follow Up Plan [facility] Start: 1964 Depression Screening Depression Scre ening [facility] Start: 1950 Medicare Annual Wellness Visit Medicare Annual Wellness Visit [facility] Immunizations Immunization Date Immunization Notes Care Provider Fa cility 02-04-2021 COVID-19, mRNA, LNP- S, PF, 100mcg/0.5mL Dose Korina Oliver MD Work Phone: [facility] 01-07-2021 COVID-19, mRNA, LNP- S, PF, 100mcg/0.5mL Dose Korina Oliver MD Work Phone: [facility] 08-03-2019 pneumococcal conjuga te vaccine, 13 valent Korina Oliver MD Work Phone: [facility] Payers Date Payer Category Payer Unknown [employer] [id number] 2022-Present [phone] [address] [place] [address] [id number] 1959 Unknown [id number] 1959 Unknown [id number] 1952 Unknown [id number] [id number] 1952 Unknown [id number] 2.16.840.1.602172.3.579.2.593 1952 Unknown [id number] 2.16.840.1.904656.3.579.2.593 1952 Unknown [id number] 2.16.840.1.138643.3.579.2.593 1952 Unknown [id number] 2.16.840.1.220148.3.579.2.1286 1952 Unknown [id number] 2.16.840.1.785947.3.579.2.1286 1952 Unknown [id number] 2.16.840.1.802876.3.579.2.1286 1952 Unknown [id number] 2.16.840.1.183222.3.579.2.1286 1952 Unknown [id number] 2.16.840.1.978605.3.579.2.1286 1952 Unknown [id number] 2.16.840.1.589838.3.579.2.1286 1952 Unknown [id number] 2.16.840.1.030405.3.579.2.1286 1952 Unknown [id number] 2.16.840.1.809364.3.579.2.1286 1952 Unknown [id number] 2.16.840.1.846522.3.579.2.1286 1952 Unknown [id number] 2.16.840.1.277253.3.579.2.1259 1952 Unknown [id number] 2.16.840.1.649599.3.579.2.1259 1952 Unknown [id number] 2.16.840.1.092747.3.579.2.1259 1952 Unknown [id number] 2.16.840.1.573105.3.579.2.1286 Medicare [id number] Social History Date Type Detail Facility [facility]: [facility]23 [facility] [employer] End: 03-11-2002 History of tobacco use Current smoker [employer] End: 03-11-2002 History of tobacco use Cigarette Smoker [employer] Start: 12-02-2020 End: 12-20-2023 Cigarettes smoked current (pack per day) - Reported 1 [employer] Start: 12-20-2023 Tobacco use and exposure Smoke less tobacco non-user [employer] Start: 12-21-2023 Alcohol intake Ex-drinker (finding) [employer] Start: 12-02-2020 End: 12-20-2023 [facility] Has the [employer]Ju[employer], [employer] threatened to shut off services in your home in past 12Mo No [employer] In the past 12 month s, has lack of transportation kept you from medical appointments or from getting medications? No [employer] Start: 12-20-2023 Tobacco Comment quit 17 years ago [employer] Start: 1950 Sex Assigned At Not on file [employer] Goals Date Patient Goal Desired Activity /State Personal health goal Comment on above: Formatting of this n ote might be different from the original. Evaluation of progress towards goal: under assessment, pt prefers home with HHC vs SNF Progress note 01-11-2024 Note Date & Type Note Facility 01-11-2024 Note tDivision of Infecti ous Diseases - Outpatient Clinic Note Patient name: Afia Gill Patient Today's Date and Time: 01/11/2024, 11:48 AM Primary Care Physician: Yahir Brothers MD Reason for consultation / Chief complaint: Left foot infection History of Present Illness: This is a 73-year-old female patient who was initially admitted on December 20, 2023. The patient had presented with right knee pain after suffering a fall. She was evaluated and found to have an open wound on the left foot. Imaging obtained showed osteomyelitis of the third digit. She was evaluated by podiatry. She was also found to have right foot second digit cellulitis along with cellulitis of the right knee. She was discharged on intravenous ceftriaxone and daptomycin that would conclude after 6 total weeks of treatment on January 31, 2024. The patient is completing a hospital follow-up with our service today to evaluate for any change of symptoms.She reports today she has been residing at a snf facility. Her son was present via telephone during the time of the visit. She has been receiving both antibiotics as prescribed and has not experienced any side effects from either antibiotic. She denied having any fevers or chills. She also denied having any chest pain, shortness of breath, abdominal pain, nausea, vomiting, or diarrhea. She reports her left foot third digit pain has been decreasing, and she has been ambulating easier. She does report persistent swelling of the right foot, but she is no longer experiencing any redness of the foot. She denied any other concerns at this time. Past Medical History: Past Medical History: Diagnosis Date Atrial fibrillation ([facility]) CHF (congestive heart failure) ([facility]) Hypertension Pulmonary embolism ([facility]) Past Surgical History: Past Surgical History: Procedure Laterality Date CARDIAC CATHETERIZATION CARPAL TUNNEL RELEASE CHOLECYSTECTOMY HYSTERECTOMY IR INTERVENTION FILTER PLACEMENT REPLACEMENT TOTAL KNEE ONCOLOGIC TONSILLECTOMY Medications: Social History: Social History Socioeconomic History Marital status: Spouse name: None Number of children: None Years of education: None Highest education level: None Occupational History None Tobacco Use Smoking status: Former Types: Cigarettes Smokeless tobacco: Never Substance and Sexual Activity Alcohol use: None Drug use: None Sexual activity: None Other Topics Concern None Social History Narrative None Social Determinants of Health Financial Resource Strain: Not on file Food Insecurity: Not on file Transportation Needs: Not on file Physical Activity: Not on file Stress: Not on file Social Connections: Not on file Intimate Partner Violence: Unknown (12/13/2023) [place] Safety & Environment Fear of Current or Ex-Partner: Not on file Emotionally Abused: Not on file Physically Abused: Not on file Sexually Abused: Not on file Physically or Sexually Abused: Not on file Housing Stability: Not on file Family History: Family History Problem Relation Name Age of Onset Heart attack Father Diabetes Father Hypertension Father Coronary artery disease Father Rheum arthritis Father Immunization History: Immunization History Administered Date(s) Administered Influenza Whole 08/26/2007 Influenza, High Dose Seasonal, Preservative Free 08/22/2018, 06/25/2019, 07/26/2020 Influenza, High-dose Seasonal, Quadrivalent, Preservative Free 08/22/2018, 06/24/2019, 08/30/2021, 07/28/2022 Influenza, injectable, quadrivalent 07/10/2016, 08/15/2018 Influenza, injectable, quadrivalent, preservative free 07/22/2014, 07/26/2017 Influenza, seasonal,quadrivalent, preservative free 07/11/2011, 07/09/2015 Pneumococcal Conjugate PCV 13 01/09/2017, 08/03/2019 Pneumococcal Polysaccharide PPV23 10/22/2006, 09/05/2007, 10/12/2015, 08/22/2018 Tdap 10/29/2018 Zoster, Recombinant 04/09/2019, 06/25/2019 Zoster, live 01/10/2016 Allergies: Allergies Allergen Reactions Bleach (Sodium Hypochlorite) Estrogens, Conjugated Heparin (Porcine) Heparin Sodium, Porcine Unknown Penicillin Penicillins Pregabalin Review of Systems: General: No fevers or chills. Eyes: No double vision or blurry vision. ENT: No sore throat or runny nose. Cardiovascular: No chest pain or palpitations. Lung: No shortness of breath or cough. Abdomen: No nausea, vomiting, diarrhea, or abdominal pain. Genitourinary: No increased urinary frequency, or dysuria. Musculoskeletal: Improving pain of the bilateral feet. Hematologic: No bleeding or bruising. Neurologic: No headache, weakness, numbness, or tingling. Objective Physical Examination: Vitals: 01/11/24 0959 BP: 130/60 BP Location: Left arm Patient Position: Sitting BP Cuff Size: Adult Pulse: 63 Resp: 17 Temp: 36.6 ???C (97.8 ???F) TempSrc: Oral SpO2: 95% Weight: (!) 138 kg (304 lb) (more content not included)... [facility] Progress note 11-01-2023 Note Date & Type Note Facility 11-01-2023 Note Cardiovascular Medic [facility] SUBJECTIVE Chief Complaint Patient presents with Atrial [...] NYHA class 4 (CMS/HCC) Other chronic pain Past Medical History: Diagnosis Date Atrial fibrillation (CMS/HCC) CHF (congestive heart failure) (CMS/HCC) Hypertension Pulmonary embolism (CMS/HCC) Family History Problem Relation Name Age of [...] Disp: , Rfl (more content not included)... [facility] Progress note 11-01-2023 Note Date & Type Note Facility 11-01-2023 Note Patient here for 6 m o follow up permanent afib, chronic systolic heart failure, and hypertension. She was prescribed antibiotic yesterday by PCP for sinus infection. Having epistaxis and green/black stools. Made PCP aware of this yesterday. Says she was very sick around [place] but is feeling better. Review of Systems HENT: Positive for nosebleeds. Cardiovascular: Positive for dyspnea on exertion. Respiratory: Positive for cough and shortness of breath. Hematologic/Lymphatic: Bruises/bleeds easily. Neurological: Positive for focal weakness and weakness. All other systems reviewed and are negative. [facility] Progress note 05-23-2023 Note Date & Type Note Facility 05-23-2023 Note [place] [facility] - [facility] Subjective Afia Gill is a [...] filling pressures. She (more content not included)... [facility] Progress note 02-19-2023 Note Date & [...] All other systems reviewed and are negative. [facility] Progress note 02-19-2023 Note Date & [...] Obstructive sleep apnea, on CPAP. Status post [place] filter. Morbid obesity. She is currently on oxygen since December 20, 2018. Holter done to investigate palpitations showed atrial fibrillation with NSVT. Stress test 01/13/2019;1. Fixed versus minimally reversible perfusion defect of the anterior septal wall and apex. 2. Marked cardiomegaly and markedly low ejection fraction, 36%. 3. Dyskinesia of the apex with otherwise global moderate hypokinesis. Echocardiogram 2 (more content not included)... [facility] Instructions Note Date & Type Note Facility Instructions Not on filedocumented in this en counter [facility] Summary Purpose Family History No Family [...] PM Hospital Course Note MR#: [id number] [facility] Pt. Name: Afia Gill Admitted: 01/29/2019 [...] and content) DATE CREATED AUTHOR 06/17/2019 [facility] DATE CREATED AUTHOR AUTHOR'S ORGANIZ ATION 03/03/2023 [facility] DATE CREATED AUTHOR AUTHOR'S ORGANIZ ATION 12/29/2023 [facility] DATE CREATED AUTHOR AUTHOR'S ORGANIZ ATION 12/29/2023 [facility] DATE CREATED AUTHOR AUTHOR'S ORGANIZ ATION 12/31/2023 [facility] DATE CREATED AUTHOR AUTHOR'S ORGANIZ ATION 01/12/2024 [facility] Care Teams (unrecognized sec tion and content) Container Coordinator Relationship Specialty Start Date End Date Yahir Brothers MD [address] [facility] [address] [place] [address] PCP - General Internal Medicine 12/20/23 FOR [...] BE BASED ON THE PRIMARY CLINICAL RECORDS. [facility] [facility]. provides no warranty or guarantee of the accuracy or completeness of information in this document.
[2024-01-14 08:45] LABS: Estimated Average Glucose 137 mg/dL; Glycohemoglobin A1C 6.4 % (4.5-6.2)
== END 2024-01-14 01:55 | disposition home or self-care (01) ==
LOC: LAB 01:54
PROVIDERS: PCP Internal Medicine; Visit Provider Family Medicine
DX: E11.9 Type 2 diabetes mellitus without complications (principal)
CPT/HCPCS: 36415; 83036

== ENCOUNTER 2024-01-18 02:35 | Outpatient (REF) | payer MEDICARE, SELFPAY ==
--- OUTSIDE RECORDS SUMMARY | 2024-01-18 02:39 | XMS_ITS | CCD ---
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 Care Dispatcher Radio Name Role Phone YAHIR BROTHERS Referring Unavailable YAHIR BROTHERS Primary Care Unavailable AHMED, LAN Attending Unavailable AHMED LAN Admitting Unavailable [place] Procedure Practitioner Unavailab le UNKNOWN, PROVIDER Surgeon Unavailable MISC, DR COELLO Admitting Unavailable MISC, DR COLELO Attending Unavailable ANDREA, DR GAO Primary Care Unavailable MISC, DR COELLO Consulting Unavailable ANDREA, DR GAO Admitting Unavailable ANDREA, DR GAO Attending Unavailable ANDREA, DR GAO Primary Care Unavailable ANDREA, DR GAO Consulting Unavailable ZIEBER, DR YAYA Miller Consulting Unavailable ANDREA, DR GAO Admitting Unavailable ANDREA, DR GAO Attending Unavailable ANDREA, DR GAO Primary Care Unavailable ANDREA, DR GAO Consulting Unavailable HARTLEY, DR JEANETTE Armenta Consulting Unavailable Yahir Brothers MD Primary Care Provider [phone] RAND CRAWFORD Attending Unavailable YAHIR BROTHERS Primary Care Unavailable KORINA OLIVER Admitting Unavailable DANIEL BIRMINGHAM Consulting Unavailable DIVISION OF INFECTIOUS DISEASE, [facility] Consulting Unavailable YAYA KUMAR Consulting Unavailable DANAE [...] (1 source) Estrogens Drug Allergy 9 [facility] (1 source) heparin Drug Allergy 9 [facility] (2 sources) Penicillins; Translations: [PENICILLINS] Drug allergy (disorder) 9 [facility] (2 sources) pregabalin Drug Allergy 9 [facility] (6 sources) Bleach (Sodium Hypochlorite); Translations: [Bleach (Sodium Hypochlorite)] Propensity to adverse reactions (disorder) 9 [facility] (4 sources) Aztreonam; Translations: [ESTROGENS, CONJUGATED] Drug Allergy [address] [facility] Repository (1 source) heparin Drug Allergy [facility] Repository (5 sources) Penicillin; Translations: [PENICILLIN] Drug Allergy [address] [facility] Repository (1 source) Misc-ENV; Translations: [Misc-ENV] Propensity to adverse reactions (disorder) [facility] Rep[facility] (1 source) Estrogens, Conjugated (INTERMEDIATE) Drug Allergy 9 [facility] (4 sources) heparin; Translations: [HEPARIN (PORCINE)] Drug Allergy 9 [facility] (4 sources) pregabalin; Translations: [PREGABALIN] Drug Allergy 9 [facility] (3 sources) Other; Translations: [OTHER] Propensity to adverse reactions 1 [facility] (1 source) heparin; Translations: [HEPARIN SODIUM, PORCINE] Drug Allergy 1 [facility] Rep[facility] Medications Completed/Discontinued Medications Medication Drug [...] Interpretation Reference Range Facility Follow-Upon 01-11-2024 Follow-Up [id number] Maximo Gill Kassy 1950 F Date Provider Department Center 01/11/2024 Herber-ANITA MONTES [facility] Family History Problem Relation Age of Onset Heart attack Father Diabetes Father Hypertension Father Coronary artery disease Father Rheum arthritis Father Family Status - Relation Status Age at Father Level of Service:25095 [place] OFFICE/OUTPATIENT ESTABLISHED MOD MDM 30 MIN Reason for Visit and Comments: PPD Read [524489] - Follow up Toes feel better Normal [facility] 36on 01-09-2024 36 Opat received. Call to [facility] and confirmed orders. Labs will be drawn 01/09. Staff was not aware of the appt today so the visit is rescheduled for 01/10. Normal [facility] CBC AND AUTO DIFFon 12-28-19 24 ABSOLUTE BASOPHIL 0.1 X10E9/L Normal 0.0-0.2 [facility] Comment on above: Performed By: #### U A #### [facility] ([id number]) [address] [place] [address] 45456 ABSOLUTE NEUTROPHIL 9.5 X10E9/L High 1.5-6.6 [facility] Comment on above: Performed By: #### U A #### [facility] ([id number]) [address] [place] [address] 28918 Basophils/100 WBC (Bld) 0.5 % Normal [facility] Comment on above: Performed By: #### U A #### [facility] ([id number]) [address] [place] [address] 29553 Eosinophils (Bld) [#/Vol] 0.8 10*3/uL High 0.0-0.4 [facility] Comment on above: Performed By: #### U A #### [facility] ([id number]) [address] [place] [address] 34635 Eosinophils/100 WBC (Bld) 5.8 % Normal [facility] Comment on above: Performed By: #### U A #### [facility] ([id number]) [address] [place] [address] 45946 Erythrocyte distribution width (RBC) [Ratio] 13.6 % Normal 11.5-15.0 [facility] Comment on above: Performed By: #### U A #### [facility] ([id number]) [address] [place] [address] 05848 Hematocrit (Bld) [Volume fraction] 35.5 % Normal 35-47 [facility] Comment on above: Performed By: #### U A #### [facility] ([id number]) [address] [place] [address] 95918 Hemoglobin (Bld) [Mass/Vol] 11.9 g/dL Normal 11.7-15.5 [facility] Comment on above: Performed By: #### U A #### [facility] ([id number]) [address] [place] [address] 22859 Lymphocytes (Bld) [#/Vol] 2.6 10*3/uL Normal 1.0-3.5 [facility] Comment on above: Performed By: #### U A #### [facility] ([id number]) [address] [place] [address] 72300 Lymphocytes/100 WBC (Bld) 19.1 % Normal [facility] Comment on above: Performed By: #### U A #### [facility] ([id number]) [address] [place] [address] 37604 MCH (RBC) [Entitic mass] 28.7 pg Normal 27-34 [facility] Comment on above: Performed By: #### U A #### [facility] ([id number]) [address] [place] [address] 39106 MCHC (RBC) [Mass/Vol] 33.4 g/dL Normal 32-36 [facility] Comment on above: Performed By: #### U A #### [facility] ([id number]) [address] [place] [address] 76367 MCV (RBC) [Entitic vol] 86 fL Normal 80-100 [facility] Comment on above: Performed By: #### U A #### [facility] ([id number]) [address] [place] [address] 16738 Monocytes (Bld) [#/Vol] 0.7 10*3/uL Normal 0-0.9 [facility] Comment on above: Performed By: #### U A #### [facility] ([id number]) [address] [place] [address] 90925 Monocytes/100 WBC (Bld) 5.3 % Normal [facility] Comment on above: Performed By: #### U A #### [facility] ([id number]) [address] [place] [address] 61371 Neutrophils/100 WBC (Bld) 69.3 % Normal [facility] Comment on above: Performed By: #### U A #### [facility] ([id number]) [address] [place] [address] 89821 Platelet mean volume (Bld) [Entitic vol] 8.7 fL Normal 7-12 [facility] Comment on above: Performed By: #### U A #### [facility] ([id number]) [address] [place] [address] 42904 Platelets (Bld) [#/Vol] 335 10*3/uL Normal 150-450 [facility] Comment on above: Performed By: #### U A #### [facility] ([id number]) [address] [place] [address] 63040 RBC COUNT 4.13 X10E12/L Normal 3.80-5.20 [facility] Comment on above: Performed By: #### U A #### [facility] ([id number]) [address] [place] [address] 09080 WBC (Bld) [#/Vol] 13.7 10*3/uL High 4.0-11.0 [facility] Comment on above: Performed By: #### U A #### [facility] ([id number]) [address] [place] [address] 95030 COMPREHENSIVE METABOLIC PANE Tyrone 12-28-2023 Albumin [Mass/Vol] 3.1 g/dL Low 3.2-5.3 [facility] Comment on above: Performed By: #### U A #### [facility] ([id number]) [address] [place] [address] 03562 ALP [Catalytic activity/Vol] 68 U/L Normal 39-130 [facility] Comment on above: Performed By: #### U A #### [facility] ([id number]) [address] [place] [address] 86726 ALT [Catalytic activity/Vol] 21 U/L Normal 0-31 [facility] Comment on above: Performed By: #### U A #### [facility] ([id number]) [address] [place] [address] 08576 Anion gap [Moles/Vol] 10 mmol/L Normal 5-15 [facility] Comment on above: Performed By: #### U A #### [facility] ([id number]) [address] [place] [address] 85500 AST [Catalytic activity/Vol] 21 U/L Normal 0-41 [facility] Comment on above: Performed By: #### U A #### [facility] ([id number]) [address] [place] [address] 37714 Bilirubin [Mass/Vol] 0.4 mg/dL Normal 0.3-1.2 [facility] Comment on above: Performed By: #### U A #### [facility] ([id number]) [address] [place] [address] 96250 Calcium [Mass/Vol] 8.6 mg/dL Normal 8.5-10.5 [facility] Comment on above: Performed By: #### U A #### [facility] ([id number]) [address] [place] [address] 88800 Chloride [Moles/Vol] 98 mmol/L Normal 98-109 [facility] Comment on above: Performed By: #### U A #### [facility] ([id number]) [address] [place] [address] 18051 CO2 [Moles/Vol] 31 mmol/L Normal 22-32 [facility] Comment on above: Performed By: #### U A #### [facility] ([id number]) [address] [place] [address] 08587 Creatinine [Mass/Vol] 0.72 mg/dL Normal 0.40-1.00 [facility] Comment on above: Result Comment: METH OD TRACEABLE TO IDMS STANDARD Performed By: #### U A #### [facility] ([id number]) [address] [place] [address] 80956 GFR/1.73 sq M.predicted among non-blacks MDRD (S/P/Bld) [Vol rate/Area] 89 mL/min/{1.73_m2} Normal >59 [facility] Comment on above: Result Comment: Reported eGFR is based on the CKD-EPI 1 equation that does not use a race coefficient. Performed By: #### U A #### [facility] ([id number]) [address] [place] [address] 20979 Glucose [Mass/Vol] 123 mg/dL High 65-99 [facility] Comment on above: Performed By: #### U A #### [facility] ([id number]) [address] [place] [address] 69406 Potassium [Moles/Vol] 3.7 mmol/L Normal 3.5-5.0 [facility] Comment on above: Performed By: #### U A #### [facility] ([id number]) [address] [place] [address] 88795 Protein [Mass/Vol] 7.1 g/dL Normal 6.0-8.0 [facility] Comment on above: Performed By: #### U A #### [facility] ([id number]) [address] [place] [address] 06709 Sodium [Moles/Vol] 139 mmol/L Normal 134-146 [facility] Comment on above: Performed By: #### U A #### [facility] ([id number]) [address] [place] [address] 62008 Urea nitrogen [Mass/Vol] 16 mg/dL Normal 5-27 [facility] Comment on above: Performed By: #### U A #### [facility] ([id number]) [address] [place] [address] 19266 MAGNESIUMon 12-28-2023 Magnesium [Mass/Vol] 2.3 mg/dL Normal 1.8-2.6 [facility] Comment on above: Performed By: #### U A #### [facility] ([id number]) [address] [place] [address] 58104 PROTIME AND INRon 12-28-2023 INR Coag (PPP) [Relative time] 2.5 {INR} High 0.8-1.1 [facility] Comment on above: Performed By: #### U A #### [facility] ([id number]) [address] [place] [address] 42529 PT Coag (PPP) [Time] 28.0 s High 9.8-13.2 [facility] Comment on above: Result Comment: NEW REFERENCE RANGE Performed By: #### U A #### [facility] ([id number]) [address] [place] [address] 11813 Vancomycin trough [Mass/Vol] on 12-28-2023 VANCOMYCIN TROUGH 26.7 ug/mL Critically high 5.0-20.0 [facility] Comment on above: Performed By: #### U A #### [facility] ([id number]) [address] [place] [address] 75388 CBC AND AUTO DIFFon 12-27-19 24 ABSOLUTE BASOPHIL 0.0 X10E9/L Normal 0.0-0.2 [facility] Comment on above: Performed By: #### Chanel ERICKSON CMP, 1986-02 #### [facility] ([id number]) [address] [place] [address] 40257 #### [id number] #### [facility] ([id number]) [address], [address] [place] [address] ABSOLUTE NEUTROPHIL 8.9 X10E9/L High 1.5-6.6 [facility] Comment on above: Performed By: #### Chanel ERICKSON CMP, 1986-02 #### [facility] ([id number]) [address] [place] [address] 42982 #### 28619-3 #### [facility] ([id number]) [address], [address] [place] [address] Basophils/100 WBC (Bld) 0.3 % Normal [facility] Comment on above: Performed By: #### Chanel ERICKSON CMP, 1986-02 #### [facility] ([id number]) [address] [place] [address] 89012 #### 65533-6 #### [facility] ([id number]) [address], [address] [place] [address] Eosinophils (Bld) [#/Vol] 0.8 10*3/uL High 0.0-0.4 [facility] Comment on above: Performed By: #### Chanel ERICKSON CMP, 1986-02 #### [facility] ([id number]) [address] [place] [address] 70715 #### 35617-0 #### [facility] ([id number]) [address], [address] [place] [address] Eosinophils/100 WBC (Bld) 6.1 % Normal [facility] Comment on above: Performed By: #### Chanel ERICKSON CMP, 1986-02 #### [facility] ([id number]) [address] [place] [address] 62143 #### 04149-1 #### [facility] ([id number]) [address], [address] [place] [address] Erythrocyte distribution width (RBC) [Ratio] 13.7 % Normal 11.5-15.0 [facility] Comment on above: Performed By: #### Chanel ERICKSON CMP, 1988-02 #### [facility] ([id number]) [address] [place] [address] 03243 #### 65725-8 #### [facility] ([id number]) [address], [address] [place] [address] Hematocrit (Bld) [Volume fraction] 34.5 % Low 35-47 [facility] Comment on above: Performed By: #### Chanel ERICKSON CMP, 1986-02 #### [facility] ([id number]) [address] [place] [address] 61760 #### 46278-6 #### [facility] ([id number]) [address], [address] [place] [address] Hemoglobin (Bld) [Mass/Vol] 11.5 g/dL Low 11.7-15.5 [facility] Comment on above: Performed By: #### Chanel ERICKSON CMP, 1988-02 #### [facility] ([id number]) [address] [place] [address] 61930 #### 31849-4 #### [facility] ([id number]) [address], [address] [place] [address] Lymphocytes (Bld) [#/Vol] 2.4 10*3/uL Normal 1.0-3.5 [facility] Comment on above: Performed By: #### Chanel ERICKSON [facility], 1988-02 #### [facility] ([id number]) [address] [place] [address] 62739 #### 43536-0 #### [facility] ([id number]) [address], [address] [place] [address] Lymphocytes/100 WBC (Bld) 18.4 % Normal [facility] Comment on above: Performed By: #### Chanel ERICKSON [facility], 1988-02 #### [facility] ([id number]) [address] [place] [address] 38760 #### 95748-3 #### [facility] ([id number]) [address], [address] [place] [address] MCH (RBC) [Entitic mass] 28.8 pg Normal 27-34 [facility] Comment on above: Performed By: #### Chanel ERICKSON CMP, 1988-02 #### [facility] ([id number]) [address] [place] [address] 36758 #### 18908-0 #### [facility] ([id number]) [address], [address] [place] [address] MCHC (RBC) [Mass/Vol] 33.3 g/dL Normal 32-36 [facility] Comment on above: Performed By: #### Chanel ERICKSON CMP, 1988-02 #### [facility] ([id number]) [address] [place] [address] 41019 #### 19297-0 #### [facility] ([id number]) [address], [address] [place] [address] MCV (RBC) [Entitic vol] 87 fL Normal 80-100 [facility] Comment on above: Performed By: #### Chanel ERICKSON CMP, 1988-02 #### [facility] ([id number]) [address] [place] [address] 14490 #### 20474-1 #### [facility] ([id number]) [address], [address] [place] [address] Monocytes (Bld) [#/Vol] 0.9 10*3/uL Normal 0-0.9 [facility] Comment on above: Performed By: #### Chanel ERICKSON [facility], 1988-02 #### [facility] ([id number]) [address] [place] [address] 51660 #### 92548-2 #### [facility] ([id number]) [address], [address] [place] [address] Monocytes/100 WBC (Bld) 7.1 % Normal [facility] Comment on above: Performed By: #### Chanel ERICKSON CMP, 1988-02 #### [facility] ([id number]) [address] [place] [address] 29649 #### 49054-1 #### [facility] ([id number]) [address], [address] [place] [address] Neutrophils/100 WBC (Bld) 68.1 % Normal [facility] Comment on above: Performed By: #### Chanel BCA, CMP, 1988-02 #### [facility] ([id number]) [address] [place] [address] 27460 #### 78098-5 #### [facility] ([id number]) [address], [address] [place] [address] Platelet mean volume (Bld) [Entitic vol] 8.7 fL Normal 7-12 [facility] Comment on above: Performed By: #### Chanel ERICKSON, CMP, 1988-02 #### [facility] ([id number]) [address] [place] [address] 16675 #### 38711-5 #### [facility] ([id number]) [address] [place] [address] Platelets (Bld) [#/Vol] 323 10*3/uL Normal 150-450 [facility] Comment on above: Performed By: #### Chanel ERICKSON, CMP, 1988-02 #### [facility] ([id number]) [address] [place] [address] 05705 #### 02182-9 #### [facility] ([id number]) [address], [address] [place] [address] RBC COUNT 3.98 X10E12/L Normal 3.80-5.20 [facility] Comment on above: Performed By: #### Chanel ERICKSON, CMP, 1988-02 #### [facility] ([id number]) [address] [place] [address] 72784 #### 87533-8 #### [facility] ([id number]) [address], [address] [place] [address] WBC (Bld) [#/Vol] 13.1 10*3/uL High 4.0-11.0 [facility] Comment on above: Performed By: #### C BCA, CMP, 1988-02 #### [facility] ([id number]) [address] [place] [address] 73245 #### 11839-5 #### [facility] ([id number]) [address] [place] [address] COMPREHENSIVE METABOLIC PANE Tyrone 12-27-2023 Albumin [Mass/Vol] 3.0 g/dL Low 3.2-5.3 [facility] Comment on above: Performed By: #### C BCA, CMP, 1988-02 #### [facility] ([id number]) [address] [place] [address] 85668 #### 81076-4 #### [facility] ([id number]) [address], [address] [place] [address] ALP [Catalytic activity/Vol] 68 U/L Normal 39-130 [facility] Comment on above: Performed By: #### C BCA, CMP, 1988-02 #### [facility] ([id number]) [address] [place] [address] 76275 #### 75613-3 #### [facility] ([id number]) [address], [address] [place] [address] ALT [Catalytic activity/Vol] 17 U/L Normal 0-31 [facility] Comment on above: Performed By: #### C BCA, CMP, 1988-02 #### [facility] ([id number]) [address] [place] [address] 56582 #### 63057-2 #### [facility] ([id number]) [address], [address] [place] [address] Anion gap [Moles/Vol] 8 mmol/L Normal 5-15 [facility] Comment on above: Performed By: #### C BCA, CMP, 1988-02 #### [facility] ([id number]) [address] [place] [address] 18798 #### 23083-8 #### [facility] ([id number]) [address], [address] [place] [address] AST [Catalytic activity/Vol] 16 U/L Normal 0-41 [facility] Comment on above: Performed By: #### Chanel ERICKSON [facility], 1988-02 #### [facility] ([id number]) [address] [place] [address] 20469 #### 74176-7 #### [facility] ([id number]) [address] [place] [address] Bilirubin [Mass/Vol] 0.5 mg/dL Normal 0.3-1.2 [facility] Comment on above: Performed By: #### Chanel ERICKSON [facility], 1988-02 #### [facility] ([id number]) [address] [place] [address] 73675 #### 37021-8 #### [facility] ([id number]) [address] [place] [address] Calcium [Mass/Vol] 8.3 mg/dL Low 8.5-10.5 [facility] Comment on above: Performed By: #### Chanel ERICKSON [facility], 1988-02 #### [facility] ([id number]) [address] [place] [address] 11730 #### 40769-6 #### [facility] ([id number]) [address], [address] [place] [address] Chloride [Moles/Vol] 99 mmol/L Normal 98-109 [facility] Comment on above: Performed By: #### Chanel BCA, CMP, 1988-02 #### [facility] ([id number]) [address] [place] [address] 65957 #### 70512-6 #### [facility] ([id number]) [address], [address] [place] [address] CO2 [Moles/Vol] 31 mmol/L Normal 22-32 [facility] Comment on above: Performed By: #### Chanel ERICKSON CMP, 1988-02 #### [facility] ([id number]) [address] [place] [address] 94047 #### 73053-9 #### [facility] ([id number]) [address] [place] [address], [address] [place] [address] Creatinine [Mass/Vol] 0.71 mg/dL Normal 0.40-1.00 [facility] Comment on above: Result Comment: METH OD TRACEABLE TO IDMS STANDARD Performed By: #### Chanel ERICKSON CMP, 1986-02 #### [facility] ([id number]) [address] [place] [id number] #### [id number] #### [facility] ([id number]) [address] [place] [address], [address] [place] [id number] eGFR (CKD-EPI) NON-RACE DEPENDENT >90 Normal >59 [facility] Comment on above: Result Comment: Reported eGFR is based on the CKD-EPI 2020 equation that does not use a race coefficient. Performed By: #### Chanel ERICKSON CMP, 1986-02 #### [facility] ([id number]) [address] [place] [address] 55622 #### [id number] #### [facility] ([id number]) [facility], [address] [place] [address] Glucose [Mass/Vol] 119 mg/dL High 65-99 [facility] Comment on above: Performed By: #### Chanel ERICKSON CMP, 1986-02 #### [facility] ([id number]) [address] [place] [address] 68898 #### 68050-2 #### [facility] ([id number]) [address], [address] [place] [address] Potassium [Moles/Vol] 3.6 mmol/L Normal 3.5-5.0 [facility] Comment on above: Performed By: #### Chanel ERICKSON CMP, 1986-02 #### [facility] ([id number]) [address] [place] [address] 40807 #### 52174-7 #### [facility] ([id number]) [address], [address] [place] [address] Protein [Mass/Vol] 7.0 g/dL Normal 6.0-8.0 [facility] Comment on above: Performed By: #### Chanel ERICKSON CMP, 1986-02 #### [facility] ([id number]) [address] [place] [address] 68058 #### 56878-8 #### [facility] ([id number]) [address], [address] [place] [address] Sodium [Moles/Vol] 138 mmol/L Normal 134-146 [facility] Comment on above: Performed By: #### Chanel ERICKSON, CMP, 1988-02 #### [facility] ([id number]) [address] [place] [address] 27639 #### 28724-5 #### [facility] ([id number]) [address], [address] [place] [address] Urea nitrogen [Mass/Vol] 18 mg/dL Normal 5-27 [facility] Comment on above: Performed By: #### C BCA, CMP, 1988-02 #### [facility] ([id number]) [address] [place] [address] 28756 #### 32649-9 #### [facility] ([id number]) [address], [address] [place] [address] Glucose Glucometer (BldC) [M ass/Vol]on 12-27-2023 Glucose [Mass/Vol] 149 mg/dL High 65-99 [facility] Glucose [Mass/Vol] 156 mg/dL High 65-99 [facility] Glucose [Mass/Vol] 181 mg/dL High 65-99 [facility] MAGNESIUMon 12-27-2023 Magnesium [Mass/Vol] 2.3 mg/dL Normal 1.8-2.6 [facility] Comment on above: Performed By: #### U A #### [facility] ([id number]) [address] [place] [address] 16703 PROTIME AND INRon 12-27-2023 INR Coag (PPP) [Relative time] 2.9 {INR} High 0.8-1.1 [facility] Comment on above: Performed By: #### C DRE [facility], 1988-02 #### [facility] ([id number]) [address] [place] [address] 25485 #### 41968-9 #### [facility] ([id number]) [address], [address] [place] [address] PT Coag (PPP) [Time] 32.6 s High 9.8-13.2 [facility] Comment on above: Result Comment: NEW REFERENCE RANGE Performed By: #### Chanel ERICKSON CMP, 1988-02 #### [facility] ([id number]) [address] [place] [address] 59033 #### 52732-8 #### [facility] ([id number]) [address], [address] [place] [address] CBC AND AUTO DIFFon 12-26-19 24 ABSOLUTE BASOPHIL 0.1 X10E9/L Normal 0.0-0.2 [facility] Comment on above: Performed By: #### Chanel ERICKSON CMP, 1986-02 #### [facility] ([id number]) [address] [place] [address] 44257 #### 69515-3 #### [facility] ([id number]) [address], [address] [place] [address] ABSOLUTE NEUTROPHIL 11.1 X10E9/L High 1.5-6.6 [facility] Comment on above: Performed By: #### Chanel ERICKSON, CMP, 1988-02 #### [facility] ([id number]) [address] [place] [address] 76645 #### 37759-5 #### [facility] ([id number]) [address], [address] [place] [address] Basophils/100 WBC (Bld) 0.4 % Normal [facility] Comment on above: Performed By: #### Chanel ERICKSON CMP, 1988-02 #### [facility] ([id number]) [address] [place] [address] 35841 #### 37392-5 #### [facility] ([id number]) [address], [address] [place] [address] Eosinophils (Bld) [#/Vol] 0.8 10*3/uL High 0.0-0.4 [facility] Comment on above: Performed By: #### Chanel ERICKSON, CMP, 1988-02 #### [facility] ([id number]) [address] [place] [address] 98292 #### 15574-8 #### [facility] ([id number]) [address], [address] [place] [address] Eosinophils/100 WBC (Bld) 5.4 % Normal [facility] Comment on above: Performed By: #### Chanel ERICKSON, [facility], 1988-02 #### [facility] ([id number]) [address] [place] [address] 78876 #### 96967-2 #### [facility] ([id number]) [address], [address] [place] [address] Erythrocyte distribution width (RBC) [Ratio] 13.9 % Normal 11.5-15.0 [facility] Comment on above: Performed By: #### Chanel ERICKSON, [facility], 1988-02 #### [facility] ([id number]) [address] [place] [address] 77336 #### 63254-8 #### [facility] ([id number]) [address], [address] [place] [address] Hematocrit (Bld) [Volume fraction] 35.9 % Normal 35-47 [facility] Comment on above: Performed By: #### Chanel ERICKSON [facility], 1988-02 #### [facility] ([id number]) [address] [place] [address] 46052 #### 21968-6 #### [facility] ([id number]) [address], [address] [place] [address] Hemoglobin (Bld) [Mass/Vol] 11.7 g/dL Normal 11.7-15.5 [facility] Comment on above: Performed By: #### Chanel ERICKSON, [facility], 1988-02 #### [facility] ([id number]) [address] [place] [address] 33273 #### 22523-5 #### [facility] ([id number]) [address], [address] [place] [address] Lymphocytes (Bld) [#/Vol] 2.6 10*3/uL Normal 1.0-3.5 [facility] Comment on above: Performed By: #### Chanel ERICKSON CMP, 1988-02 #### [facility] ([id number]) [address] [place] [address] 62265 #### 96033-4 #### [facility] ([id number]) [address], [address] [place] [address] Lymphocytes/100 WBC (Bld) 16.6 % Normal [facility] Comment on above: Performed By: #### Chanel ERICKSON [facility], 1988-02 #### [facility] ([id number]) [address] [place] [address] 85026 #### 17125-3 #### [facility] ([id number]) [address], [address] [place] [address] MCH (RBC) [Entitic mass] 28.2 pg Normal 27-34 [facility] Comment on above: Performed By: #### Chanel ERICKSON [facility], 1988-02 #### [facility] ([id number]) [address] [place] [address] 28004 #### 90875-7 #### [facility] ([id number]) [address], [address] [place] [address] MCHC (RBC) [Mass/Vol] 32.7 g/dL Normal 32-36 [facility] Comment on above: Performed By: #### Chanel ERICKSON CMP, 1988-02 #### [facility] ([id number]) [address] [place] [address] 00174 #### 52449-9 #### [facility] ([id number]) [address], [address] [place] [address] MCV (RBC) [Entitic vol] 86 fL Normal 80-100 [facility] Comment on above: Performed By: #### Chanel ERICKSON CMP, 1988-02 #### [facility] ([id number]) [address] [place] [address] 02416 #### 91228-6 #### [facility] ([id number]) [address], [address] [place] [address] Monocytes (Bld) [#/Vol] 0.9 10*3/uL Normal 0-0.9 [facility] Comment on above: Performed By: #### Chanel ERICKSON CMP, 1988-02 #### [facility] ([id number]) [address] [place] [address] 97603 #### 05025-9 #### [facility] ([id number]) [address] [facility], [address] [place] [address] Monocytes/100 WBC (Bld) 5.9 % Normal [facility] Comment on above: Performed By: #### Chanel ERICKSON CMP, 1988-02 #### [facility] ([id number]) [address] [place] [address] 92050 #### 80532-9 #### [facility] ([id number]) [address] [facility], [address] [place] [address] Neutrophils/100 WBC (Bld) 71.7 % Normal [facility] Comment on above: Performed By: #### Chanel ERICKSON CMP, 1988-02 #### [facility] ([id number]) [address] [place] [address] 16197 #### 85715-2 #### [facility] ([id number]) [address], [address] [place] [address] Platelet mean volume (Bld) [Entitic vol] 8.6 fL Normal 7-12 [facility] Comment on above: Performed By: #### Chanel ERICKSON CMP, 1988-02 #### [facility] ([id number]) [address] [place] [address] 10700 #### 49294-1 #### [facility] ([id number]) [address] [facility], [address] [place] [address] Platelets (Bld) [#/Vol] 338 10*3/uL Normal 150-450 [facility] Comment on above: Performed By: #### Chanel ERICKSON CMP, 1988-02 #### [facility] ([id number]) [address] [place] [address] 33493 #### 60990-5 #### [facility] ([id number]) [address] [place] [address], [address] [place] [address] RBC COUNT 4.16 X10E12/L Normal 3.80-5.20 [facility] Comment on above: Performed By: #### Chanel ERICKSON CMP, 1988-02 #### [facility] ([id number]) [address] [place] [address] 03313 #### 10536-1 #### [facility] ([id number]) [address] [place] [address], [address] [place] [address] WBC (Bld) [#/Vol] 15.5 10*3/uL High 4.0-11.0 [facility] Comment on above: Performed By: #### Chanel ERICKSON CMP, 1988-02 #### [facility] ([id number]) [address] [place] [address] 24036 #### 87741-4 #### [facility] ([id number]) [address] [place] [address], [address] [place] [address] COMPREHENSIVE METABOLIC PANE Tyrone 12-26-2023 Albumin [Mass/Vol] 3.2 g/dL Normal 3.2-5.3 [facility] Comment on above: Performed By: #### Chanel ERICKSON CMP, 1988-02 #### [facility] ([id number]) [address] [place] [address] 15722 #### 26106-3 #### [facility] ([id number]) [address], [address] [place] [address] ALP [Catalytic activity/Vol] 69 U/L Normal 39-130 [facility] Comment on above: Performed By: #### Chanel ERICKSON CMP, 1988-02 #### [facility] ([id number]) [address] [place] [address] 89511 #### 19968-4 #### [facility] ([id number]) [address], [address] [place] [address] ALT [Catalytic activity/Vol] 16 U/L Normal 0-31 [facility] Comment on above: Performed By: #### Chanel ERICKSON CMP, 1988-02 #### [facility] ([id number]) [address] [place] [address] 07542 #### 80660-7 #### [facility] ([id number]) [address], [address] [place] [address] Anion gap [Moles/Vol] 10 mmol/L Normal 5-15 [facility] Comment on above: Performed By: #### Chanel ERICKSON CMP, 1988-02 #### [facility] ([id number]) [address] [place] [address] 82990 #### 95765-4 #### [facility] ([id number]) [address], [address] [place] [address] AST [Catalytic activity/Vol] 17 U/L Normal 0-41 [facility] Comment on above: Performed By: #### Chanel ERICKSON CMP, 1988-02 #### [facility] ([id number]) [address] [place] [address] 10106 #### 02296-9 #### [facility] ([id number]) [address], [address] [place] [address] Bilirubin [Mass/Vol] 0.4 mg/dL Normal 0.3-1.2 [facility] Comment on above: Performed By: #### Chanel ERICKSON [facility], 1988-02 #### [facility] ([id number]) [address] [place] [address] 19639 #### 51641-1 #### [facility] ([id number]) [address], [address] [place] [address] Calcium [Mass/Vol] 8.7 mg/dL Normal 8.5-10.5 [facility] Comment on above: Performed By: #### Chanel ERICKSON [facility], 1988-02 #### [facility] ([id number]) [address] [place] [address] 51641 #### 79561-9 #### [facility] ([id number]) [address], [address] [place] [address] Chloride [Moles/Vol] 98 mmol/L Normal 98-109 [facility] Comment on above: Performed By: #### Chanel ERICKSON [facility], 1988-02 #### [facility] ([id number]) [address] [place] [address] 05216 #### 41694-5 #### [facility] ([id number]) [address], [address] [place] [address] CO2 [Moles/Vol] 31 mmol/L Normal 22-32 [facility] Comment on above: Performed By: #### Chanel ERICKSON [facility], 1988-02 #### [facility] ([id number]) [address] [place] [address] 90950 #### 13010-8 #### [facility] ([id number]) [address], [address] [place] [address] Creatinine [Mass/Vol] 0.78 mg/dL Normal 0.40-1.00 [facility] Comment on above: Result Comment: METH OD TRACEABLE TO IDMS STANDARD Performed By: #### C SEAN ERICKSON, 1986-02 #### [facility] ([id number]) [address] [place] [address] 00351 #### 61885-5 #### [facility] ([id number]) [address], [address] [place] [address] GFR/1.73 sq M.predicted among non-blacks MDRD (S/P/Bld) [Vol rate/Area] 81 mL/min/{1.73_m2} Normal >59 [facility] Comment on above: Result Comment: Reported eGFR is based on the CKD-EPI 2020 equation that does not use a race coefficient. Performed By: #### Chanel ERICKSON CMP, 1988-02 #### [facility] ([id number]) [address] [place] [address] 86636 #### 28068-5 #### [facility] ([id number]) [address], [address] [place] [address] Glucose [Mass/Vol] 129 mg/dL High 65-99 [facility] Comment on above: Performed By: #### Chanel ERICKSON CMP, 1988-02 #### [facility] ([id number]) [address] [place] [address] 63061 #### 00574-7 #### [facility] ([id number]) [address], [address] [place] [address] Potassium [Moles/Vol] 3.8 mmol/L Normal 3.5-5.0 [facility] Comment on above: Performed By: #### Chanel ERICKSON CMP, 1988-02 #### [facility] ([id number]) [address] [place] [address] 37545 #### 77821-1 #### [facility] ([id number]) [address], [address] [place] [address] Protein [Mass/Vol] 7.3 g/dL Normal 6.0-8.0 [facility] Comment on above: Performed By: #### Chanel ERICKSON CMP, 1988-02 #### [facility] ([id number]) [address] [place] [address] 03774 #### 35584-1 #### [facility] ([id number]) [address] [facility], [address] [place] [address] Sodium [Moles/Vol] 139 mmol/L Normal 134-146 [facility] Comment on above: Performed By: #### Chanel ERICKSON [facility], 1988-02 #### [facility] ([id number]) [address] [place] [address] 08028 #### 76048-5 #### [facility] ([id number]) [address] [facility], [address] [place] [address] Urea nitrogen [Mass/Vol] 19 mg/dL Normal 5-27 [facility] Comment on above: Performed By: #### Chanel ERICKSON [facility], 1988-02 #### [facility] ([id number]) [address] [place] [address] 46249 #### 57931-0 #### [facility] ([id number]) [address] [place] [address] Glucose Glucometer (BldC) [M ass/Vol]on 12-26-2023 Glucose [Mass/Vol] 146 mg/dL High 65-99 [facility] Glucose [Mass/Vol] 182 mg/dL High 65-99 [facility] Glucose [Mass/Vol] 108 mg/dL High 65-99 [facility] MAGNESIUMon 12-26-2023 Magnesium [Mass/Vol] 2.3 mg/dL Normal 1.8-2.6 [facility] Comment on above: Performed By: #### C DRE, [facility], 1987- #### [facility] ([id number]) [address] [facility], [place] [address] #### 27303-3 #### [facility] ([id number]) [address], [address] [place] [address] MR FOOT RT W WO CONTon 12-25 [...] Alberto MD on 12/26/2023 12:57 PM Normal [facility] PROTIME AND INRon 12-26-2023 INR Coag (PPP) [Relative time] 3.0 {INR} High 0.8-1.1 [facility] Comment on above: Performed By: #### Chanel ERICKSON CMP, 1988-02 #### [facility] ([id number]) [address] [place] [address] 76429 #### 85429-9 #### [facility] ([id number]) [address], [address] [place] [address] PT Coag (PPP) [Time] 33.3 s High 9.8-13.2 [facility] Comment on above: Result Comment: NEW REFERENCE RANGE Performed By: #### Chanel ERICKSON [facility], 1988-02 #### [facility] ([id number]) [address] [place] [address] 42811 #### 99759-6 #### [facility] ([id number]) [address], [address] [place] [address] Vancomycin trough [Mass/Vol] on 12-26-2023 VANCOMYCIN TROUGH 11.6 ug/mL Normal 5.0-20.0 [facility] Comment on above: Performed By: #### Chanel ERICKSON [facility], 1988-02 #### [facility] ([id number]) [address] [place] [address] 28326 #### 67639-0 #### [facility] ([id number]) [address], [address] [place] [address] CBC AND AUTO DIFFon 12-25-19 24 ABSOLUTE BASOPHIL 0.1 X10E9/L Normal 0.0-0.2 [facility] Comment on above: Performed By: #### Chanel ERICKSON [facility], 1988-02 #### [facility] ([id number]) [address] [place] [address] 99002 #### 90063-0 #### [facility] ([id number]) [address], [address] [place] [address] ABSOLUTE NEUTROPHIL 9.4 X10E9/L High 1.5-6.6 [facility] Comment on above: Performed By: #### Chanel ERICKSON, [facility], 1988-02 #### [facility] ([id number]) [address] [place] [address] 07171 #### 97919-6 #### [facility] ([id number]) [address], [address] [place] [address] Basophils/100 WBC (Bld) 0.4 % Normal [facility] Comment on above: Performed By: #### C DRE, [facility], 1988-02 #### [facility] ([id number]) [address] [place] [address] 34675 #### 72391-2 #### [facility] ([id number]) [address], [address] [place] [address] Eosinophils (Bld) [#/Vol] 0.7 10*3/uL High 0.0-0.4 [facility] Comment on above: Performed By: #### Chanel ERICKSON, [facility], 1988-02 #### [facility] ([id number]) [address] [place] [address] 74548 #### 41588-2 #### [facility] ([id number]) [address], [address] [place] [address] Eosinophils/100 WBC (Bld) 5.3 % Normal [facility] Comment on above: Performed By: #### Chanel ERICKSON, [facility], 1988-02 #### [facility] ([id number]) [address] [place] [address] 80162 #### 69475-4 #### [facility] ([id number]) [address] [place] [address] Erythrocyte distribution width (RBC) [Ratio] 13.7 % Normal 11.5-15.0 [facility] Comment on above: Performed By: #### C BCA, [facility], 1988-02 #### [facility] ([id number]) [address] [place] [address] 35498 #### 58447-2 #### [facility] ([id number]) [address] [place] [address] Hematocrit (Bld) [Volume fraction] 37.8 % Normal 35-47 [facility] Comment on above: Performed By: #### Chanel ERICKSON, [facility], 1988-02 #### [facility] ([id number]) [address] [place] [address] 91510 #### 04897-9 #### [facility] ([id number]) [address] [place] [address] Hemoglobin (Bld) [Mass/Vol] 12.6 g/dL Normal 11.7-15.5 [facility] Comment on above: Performed By: #### Chanel ERICKSON [facility], 1988-02 #### [facility] ([id number]) [address] [place] [address] 39[address] #### [id number] #### [facility] ([id number]) [address], [address] [place] [address] Lymphocytes (Bld) [#/Vol] 2.4 10*3/uL Normal 1.0-3.5 [facility] Comment on above: Performed By: #### Chanel ERICKSON CMP, 1986-02 #### [facility] ([id number]) [address] [place] [address] #### [id number] #### [facility] ([id number]) [address], [address] [place] [address] Lymphocytes/100 WBC (Bld) 17.5 % Normal [facility] Comment on above: Performed By: #### Chanel ERICKSON CMP, 1986-02 #### [facility] ([id number]) [address] [place] [address] #### [id number] #### [facility] ([id number]) [address], [address] [place] [address] MCH (RBC) [Entitic mass] 28.8 pg Normal 27-34 [facility] Comment on above: Performed By: #### Chanel ERICKSON [facility], 1986-02 #### [facility] ([id number]) [address] [place] [address] #### [id number] #### [facility] ([id number]) [address], [address] [place] [address] MCHC (RBC) [Mass/Vol] 33.4 g/dL Normal 32-36 [facility] Comment on above: Performed By: #### Chanel ERICKSON [facility], 1986-02 #### [facility] ([id number]) [address] [place] [address] #### [id number] #### [facility] ([id number]) [address], [address] [place] [id number] MCV (RBC) [Entitic vol] 86 fL Normal 80-100 [facility] [facility] Comment on above: Performed By: #### Chanel ERICKSON CMP, 1988-02 #### [facility] ([id number]) [address] [place] [address] 42976 #### 49271-4 #### [facility] ([id number]) [address] [facility], [address] [place] [address] Monocytes (Bld) [#/Vol] 1.1 10*3/uL High 0-0.9 [facility] Comment on above: Performed By: #### Chanel ERICKSON CMP, 1988-02 #### [facility] ([id number]) [address] [place] [address] 96908 #### 69807-5 #### [facility] ([id number]) [address], [address] [place] [address] Monocytes/100 WBC (Bld) 8.0 % Normal [facility] Comment on above: Performed By: #### Chanel ERICKSON CMP, 1988-02 #### [facility] ([id number]) [address] [place] [address] 81196 #### 31761-4 #### [facility] ([id number]) [address], [address] [place] [address] Neutrophils/100 WBC (Bld) 68.8 % Normal [facility] Comment on above: Performed By: #### Chanel ERICKSON CMP, 1988-02 #### [facility] ([id number]) [address] [place] [address] 77711 #### 44624-1 #### [facility] ([id number]) [address], [address] [place] [address] Platelet mean volume (Bld) [Entitic vol] 8.4 fL Normal 7-12 [facility] Comment on above: Performed By: #### Chanel ERICKSON CMP, 1988-02 #### [facility] ([id number]) [address] [place] [address] 62667 #### 57524-3 #### [facility] ([id number]) [address], [address] [place] [address] Platelets (Bld) [#/Vol] 321 10*3/uL Normal 150-450 [facility] Comment on above: Performed By: #### Chanel ERICKSON CMP, 1988-02 #### [facility] ([id number]) [address] [place] [address] 23276 #### 98462-0 #### [facility] ([id number]) [address] [facility], [address] [place] [address] RBC COUNT 4.38 X10E12/L Normal 3.80-5.20 [facility] Comment on above: Performed By: #### Chanel BCA, CMP, 1988-02 #### [facility] ([id number]) [address] [place] [address] 54265 #### 44747-4 #### [facility] ([id number]) [address] [facility], [address] [place] [address] WBC (Bld) [#/Vol] 13.7 10*3/uL High 4.0-11.0 [facility] Comment on above: Performed By: #### Chanel ERICKSON CMP, 1988-02 #### [facility] ([id number]) [address] [place] [address] 83781 #### 91234-1 #### [facility] ([id number]) [address] [place] [address], [address] [place] [address] COMPREHENSIVE METABOLIC PANE Tyrone 12-25-2023 Albumin [Mass/Vol] 3.3 g/dL Normal 3.2-5.3 [facility] Comment on above: Performed By: #### Chanel BCA CMP, 1988-02 #### [facility] ([id number]) [address] [place] [address] 37392 #### 87285-1 #### [facility] ([id number]) [facility], [address] [place] [address] ALP [Catalytic activity/Vol] 66 U/L Normal 39-130 [facility] Comment on above: Performed By: #### C BCA, CMP, 1988-02 #### [facility] ([id number]) [address] [place] [address] 90699 #### 15001-3 #### [facility] ([id number]) [address], [address] [place] [address] ALT [Catalytic activity/Vol] 16 U/L Normal 0-31 [facility] Comment on above: Performed By: #### Chanel ERICKSON CMP, 1988-02 #### [facility] ([id number]) [address] [place] [address] 15965 #### 16406-7 #### [facility] ([id number]) [address], [address] [place] [address] Anion gap [Moles/Vol] 10 mmol/L Normal 5-15 [facility] Comment on above: Performed By: #### Chanel ERICKSON [facility], 1988-02 #### [facility] ([id number]) [address] [place] [address] 35582 #### 07223-4 #### [facility] ([id number]) [address], [address] [place] [address] AST [Catalytic activity/Vol] 17 U/L Normal 0-41 [facility] Comment on above: Performed By: #### Chanel ERICKSON [facility], 1988-02 #### [facility] ([id number]) [address] [place] [address] 58526 #### 84171-3 #### [facility] ([id number]) [address], [address] [place] [address] Bilirubin [Mass/Vol] 0.5 mg/dL Normal 0.3-1.2 [facility] Comment on above: Performed By: #### Chanel ERICKSON CMP, 1988-02 #### [facility] ([id number]) [address] [place] [address] 02457 #### 93127-9 #### [facility] ([id number]) [address], [address] [place] [address] Calcium [Mass/Vol] 8.9 mg/dL Normal 8.5-10.5 [facility] Comment on above: Performed By: #### Chanel ERICKSON CMP, 1988-02 #### [facility] ([id number]) [address] [place] [address] 73716 #### 13445-3 #### [facility] ([id number]) [address] [facility], [address] [place] [address] Chloride [Moles/Vol] 98 mmol/L Normal 98-109 [facility] Comment on above: Performed By: #### Chanel ERICKSON CMP, 1988-02 #### [facility] ([id number]) [address] [place] [address] 14690 #### 19381-3 #### [facility] ([id number]) [address] [facility], [address] [place] [address] CO2 [Moles/Vol] 31 mmol/L Normal 22-32 [facility] Comment on above: Performed By: #### Chanel ERICKSON CMP, 1988-02 #### [facility] ([id number]) [address] [place] [address] 05604 #### 41028-3 #### [facility] ([id number]) [address] [facility], [address] [place] [address] Creatinine [Mass/Vol] 0.78 mg/dL Normal 0.40-1.00 [facility] Comment on above: Result Comment: METH OD TRACEABLE TO IDMS STANDARD Performed By: #### Chanel ERICKSON CMP, 1988-02 #### [facility] ([id number]) [address] [place] [address] 57999 #### 66568-0 #### [facility] ([id number]) [address] [facility], [address] [place] [address] GFR/1.73 sq M.predicted among non-blacks MDRD (S/P/Bld) [Vol rate/Area] 81 mL/min/{1.73_m2} Normal >59 [facility] Comment on above: Result Comment: Reported eGFR is based on the CKD-EPI 2020 equation that does not use a race coefficient. Performed By: #### Chanel ERICKSON CMP, 1988-02 #### [facility] ([id number]) [address] [place] [address] 13153 #### 25914-6 #### [facility] ([id number]) [address], [address] [place] [address] Glucose [Mass/Vol] 125 mg/dL High 65-99 [facility] Comment on above: Performed By: #### Chanel ERICKSON CMP, 1988-02 #### [facility] ([id number]) [address] [place] [address] 60290 #### 02061-1 #### [facility] ([id number]) [address] [facility], [address] [place] [address] Potassium [Moles/Vol] 3.5 mmol/L Normal 3.5-5.0 [facility] Comment on above: Performed By: #### Chanel ERICKSON CMP, 1988-02 #### [facility] ([id number]) [address] [place] [address] 63563 #### 02436-0 #### [facility] ([id number]) [address], [address] [place] [address] Protein [Mass/Vol] 7.7 g/dL Normal 6.0-8.0 [facility] Comment on above: Performed By: #### Chanel ERICKSON CMP, 1988-02 #### [facility] ([id number]) [address] [place] [address] 33601 #### 00203-4 #### [facility] ([id number]) [address], [address] [place] [address] Sodium [Moles/Vol] 139 mmol/L Normal 134-146 [facility] Comment on above: Performed By: #### Chanel ERICKSON [facility], 1988-02 #### [facility] ([id number]) [address] [place] [address] 26514 #### 26616-2 #### [facility] ([id number]) [address] [facility], [address] [place] [address] Urea nitrogen [Mass/Vol] 19 mg/dL Normal 5-27 [facility] Comment on above: Performed By: #### Chanel ERICKSON [facility], 1988-02 #### [facility] ([id number]) [address] [place] [address] 28714 #### 60327-0 #### [facility] ([id number]) [address] [facility], [address] [place] [address] CRP [Mass/Vol]on 12-25-2023 C REACTIVE PROTEIN 8.6 mg/dL High 0.000-0.744 [facility] Comment on above: Performed By: #### Chanel ERICKSON CMP, 1988-02 #### [facility] ([id number]) [address] [place] [address] 27530 #### 26180-8 #### [facility] ([id number]) [address], [address] [place] [address] ESR Photometric method (Bld) [Velocity]on 12-25-2023 ESR, ERYTHROCYTE SEDIMENTATION RATE 85 mm/h High 0-30 [facility] Comment on above: Performed By: #### Chanel ERICKSON CMP, 1988-02 #### [facility] ([id number]) [address] [place] [address] 23996 #### 23751-5 #### [facility] ([id number]) [address] [facility], [address] [place] [address] Glucose Glucometer (BldC) [M ass/Vol]on 12-25-2023 Glucose [Mass/Vol] 171 mg/dL High 65-99 [facility] Glucose [Mass/Vol] 125 mg/dL High 65-99 [facility] Glucose [Mass/Vol] 154 mg/dL High 65-99 [facility] MAGNESIUMon 12-25-2023 Magnesium [Mass/Vol] 2.4 mg/dL Normal 1.8-2.6 [facility] Comment on above: Performed By: #### Chanel ERICKSON CMP, 1988-02 #### [facility] ([id number]) [address] [place] [address] 87866 #### 34106-8 #### [facility] ([id number]) [address] [facility], [address] [place] [address] POTASSIUMon 12-25-2023 Potassium [Moles/Vol] 4.2 mmol/L Normal 3.5-5.0 [facility] Comment on above: Performed By: #### Chanel ERICKSON CMP, 1988-02 #### [facility] ([id number]) [address] [place] [address] 83736 #### 12945-9 #### [facility] ([id number]) [address] [facility], [address] [place] [address] PROTIME AND INRon 12-25-2023 INR Coag (PPP) [Relative time] 2.6 {INR} High 0.8-1.1 [facility] Comment on above: Performed By: #### Chanel ERICKSON CMP, 1988-02 #### [facility] ([id number]) [address] [place] [address] 46887 #### 78677-3 #### [facility] ([id number]) [address] [facility], [address] [place] [address] PT Coag (PPP) [Time] 29.7 s High 9.8-13.2 [facility] Comment on above: Result Comment: NEW REFERENCE RANGE Performed By: #### C DRE [facility], 1988-02 #### [facility] ([id number]) [address] [place] [address] #### 86466-9 #### [facility] ([id number]) [address] [facility], [address] [place] [address] URIC ACIDon 12-25-2023 Urate [Mass/Vol] 8.9 mg/dL High 2.6-7.2 [facility] Comment on above: Performed By: #### C DRE [facility], 1988-02 #### [facility] ([id number]) [address] [place] [address] #### 98781-4 #### [facility] ([id number]) [address] [facility], [address] [place] [address] XR CHEST 1 VWon 12-25-2023 XR CHEST [...] Wood MD on 12/25/2023 11:21 AM Normal [facility] XR FOOT RT 2 VWSon 4 XR [...] Araujo MD on 12/25/2023 2:59 PM Normal [facility] CBC AND AUTO DIFFon 12-24-19 24 ABSOLUTE BASOPHIL 0.1 X10E9/L Normal 0.0-0.2 [facility] Comment on above: Performed By: #### Chanel ERICKSON CMP, 1988-02 #### [facility] ([id number]) [address] [place] [address] 32041 #### 61978-0 #### [facility] ([id number]) [address], [address] [place] [address] ABSOLUTE NEUTROPHIL 10.2 X10E9/L High 1.5-6.6 [facility] Comment on above: Performed By: #### Chnael ERICKSON [facility], 1988-02 #### [facility] ([id number]) [address] [place] [address] 03409 #### 26928-4 #### [facility] ([id number]) [address], [address] [place] [address] Basophils/100 WBC (Bld) 0.5 % Normal [facility] Comment on above: Performed By: #### Chanel ERICKSON CMP, 1988-02 #### [facility] ([id number]) [address] [place] [address] 53257 #### 30250-9 #### [facility] ([id number]) [address], [address] [place] [address] Eosinophils (Bld) [#/Vol] 0.9 10*3/uL High 0.0-0.4 [facility] Comment on above: Performed By: #### Chanel ERICKSON [facility], 1988-02 #### [facility] ([id number]) [address] [place] [address] 20426 #### 74901-9 #### [facility] ([id number]) [address], [address] [place] [address] Eosinophils/100 WBC (Bld) 6.2 % Normal [facility] Comment on above: Performed By: #### Chanel ERICKSON [facility], 1988-02 #### [facility] ([id number]) [address] [place] [address] 06422 #### 08289-2 #### [facility] ([id number]) [address], [address] [place] [address] Erythrocyte distribution width (RBC) [Ratio] 14.1 % Normal 11.5-15.0 [facility] Comment on above: Performed By: #### Chanel ERICKSON [facility], 1988-02 #### [facility] ([id number]) [address] [place] [address] 88997 #### 65057-4 #### [facility] ([id number]) [address], [address] [place] [address] Hematocrit (Bld) [Volume fraction] 37.3 % Normal 35-47 [facility] Comment on above: Performed By: #### Chanel ERICKSON [facility], 1988-02 #### [facility] ([id number]) [address] [place] [address] 56369 #### 77947-3 #### [facility] ([id number]) [address], [address] [place] [address] Hemoglobin (Bld) [Mass/Vol] 12.4 g/dL Normal 11.7-15.5 [facility] Comment on above: Performed By: #### Chanel BCA, CMP, 1988-02 #### [facility] ([id number]) [address] [place] [address] 96506 #### 98476-0 #### [facility] ([id number]) [address], [address] [place] [address] Lymphocytes (Bld) [#/Vol] 2.2 10*3/uL Normal 1.0-3.5 [facility] Comment on above: Performed By: #### Chanel BCA, CMP, 1988-02 #### [facility] ([id number]) [address] [place] [address] 48918 #### 99095-7 #### [facility] ([id number]) [address], [address] [place] [address] Lymphocytes/100 WBC (Bld) 15.4 % Normal [facility] Comment on above: Performed By: #### Chanel BCA, CMP, 1988-02 #### [facility] ([id number]) [address] [place] [address] 92633 #### 14878-9 #### [facility] ([id number]) [address], [address] [place] [address] MCH (RBC) [Entitic mass] 29.0 pg Normal 27-34 [facility] Comment on above: Performed By: #### Chanel BCA, CMP, 1988-02 #### [facility] ([id number]) [address] [place] [address] 33501 #### 37715-3 #### [facility] ([id number]) [address], [address] [place] [address] MCHC (RBC) [Mass/Vol] 33.3 g/dL Normal 32-36 [facility] Comment on above: Performed By: #### Chanel BCA, CMP, 1988-02 #### [facility] ([id number]) [address] [place] [address] 34412 #### 53576-1 #### [facility] ([id number]) [address], [address] [place] [address] MCV (RBC) [Entitic vol] 87 fL Normal 80-100 [facility] Comment on above: Performed By: #### Chanel ERICKSON CMP, 1988-02 #### [facility] ([id number]) [address] [place] [address] 07216 #### 44199-9 #### [facility] ([id number]) [address], [address] [place] [address] Monocytes (Bld) [#/Vol] 0.7 10*3/uL Normal 0-0.9 [facility] Comment on above: Performed By: #### Chanel ERICKSON [facility], 1988-02 #### [facility] ([id number]) [address] [place] [address] 02460 #### 29306-3 #### [facility] ([id number]) [address], [address] [place] [address] Monocytes/100 WBC (Bld) 5.3 % Normal [facility] Comment on above: Performed By: #### Chanel ERICKSON CMP, 1988-02 #### [facility] ([id number]) [address] [place] [address] 88746 #### 69876-1 #### [facility] ([id number]) [address], [address] [place] [address] Neutrophils/100 WBC (Bld) 72.6 % Normal [facility] Comment on above: Performed By: #### Chanel ERICKSON CMP, 1988-02 #### [facility] ([id number]) [address] [place] [address] 57636 #### 57413-1 #### [facility] ([id number]) [address], [address] [place] [address] Platelet mean volume (Bld) [Entitic vol] 8.6 fL Normal 7-12 [facility] Comment on above: Performed By: #### Chanel ERICKSON CMP, 1988-02 #### [facility] ([id number]) [address] [place] [address] 21374 #### 73692-3 #### [facility] ([id number]) [address] [facility], [address] [place] [address] Platelets (Bld) [#/Vol] 339 10*3/uL Normal 150-450 [facility] Comment on above: Performed By: #### Chanel ERICKSON CMP, 1988-02 #### [facility] ([id number]) [address] [place] [address] 74979 #### 43031-8 #### [facility] ([id number]) [address] [facility], [address] [place] [address] RBC COUNT 4.29 X10E12/L Normal 3.80-5.20 [facility] Comment on above: Performed By: #### Chanel ERICKSON CMP, 1988-02 #### [facility] ([id number]) [address] [place] [address] 07549 #### 46210-5 #### [facility] ([id number]) [address] [place] [address] WBC (Bld) [#/Vol] 14.1 10*3/uL High 4.0-11.0 [facility] Comment on above: Performed By: #### Chanel ERICKSON CMP, 1988-02 #### [facility] ([id number]) [address] [place] [address] 85217 #### 56625-4 #### [facility] ([id number]) [address], [address] [place] [address] COMPREHENSIVE METABOLIC PANE Tyrone 12-24-2023 Albumin [Mass/Vol] 3.4 g/dL Normal 3.2-5.3 [facility] Comment on above: Performed By: #### Chanel ERICKSON CMP, 1988-02 #### [facility] ([id number]) [address] [place] [address] 92276 #### 26984-1 #### [facility] ([id number]) [address] [facility], [address] [place] [address] ALP [Catalytic activity/Vol] 67 U/L Normal 39-130 [facility] Comment on above: Performed By: #### Chanel BCA, CMP, 1988-02 #### [facility] ([id number]) [address] [place] [address] 69320 #### 08675-7 #### [facility] ([id number]) [address] [facility], [address] [place] [address] ALT [Catalytic activity/Vol] 13 U/L Normal 0-31 [facility] Comment on above: Performed By: #### Chanel BCA, CMP, 1988-02 #### [facility] ([id number]) [address] [place] [address] 17508 #### 61749-2 #### [facility] ([id number]) [address], [address] [place] [address] Anion gap [Moles/Vol] 11 mmol/L Normal 5-15 [facility] Comment on above: Performed By: #### Chanel BCA, CMP, 1988-02 #### [facility] ([id number]) [address] [place] [address] 81336 #### 94792-5 #### [facility] ([id number]) [address] [place] [address] AST [Catalytic activity/Vol] 16 U/L Normal 0-41 [facility] Comment on above: Performed By: #### Chanel ERICKSON CMP, 1988-02 #### [facility] ([id number]) [address] [place] [address] 31135 #### 05251-1 #### [facility] ([id number]) [address] [place] [address] Bilirubin [Mass/Vol] 0.4 mg/dL Normal 0.3-1.2 [facility] Comment on above: Performed By: #### Chanel ERICKSON [facility], 1988-02 #### [facility] ([id number]) [address] [place] [address] 42644 #### 75045-4 #### [facility] ([id number]) [address] [place] [address] Calcium [Mass/Vol] 8.9 mg/dL Normal 8.5-10.5 [facility] Comment on above: Performed By: #### Chanel ERICKSON CMP, 1986-02 #### [facility] ([id number]) [address] [place] [address] #### [id number] #### [facility] ([id number]) [address] [place] [address] Chloride [Moles/Vol] 99 mmol/L Normal 98-109 [facility] Comment on above: Performed By: #### Chanel ERICKSON CMP, 1986-02 #### [facility] ([id number]) [address] [place] [address]34 #### [id number] #### [facility] ([id number]) [address], [address] [place] [address] CO2 [Moles/Vol] 30 mmol/L Normal 22-32 [facility] Comment on above: Performed By: #### C SEAN ERICKSON, 1986-02 #### [facility] ([id number]) [address] [place] [address]807 #### [id number] #### [facility] ([id number]) [address], [address] [place] [address] Creatinine [Mass/Vol] 0.83 mg/dL Normal 0.40-1.00 [facility] Comment on above: Result Comment: METH OD TRACEABLE TO IDMS STANDARD Performed By: #### C SEAN ERICKSON, 1986-02 #### [facility] ([id number]) [address] [place] [address] #### [id number] #### [facility] ([id number]) [address], [address] [place] [address] GFR/1.73 sq M.predicted among non-blacks MDRD (S/P/Bld) [Vol rate/Area] 75 mL/min/{1.73_m2} Normal >59 [facility] Comment on above: Result Comment: Reported eGFR is based on the CKD-EPI 2020 equation that does not use a race coefficient. Performed By: #### C SEAN ERICKSON, 1986-02 #### [facility] ([id number]) [address] [place] [address] #### [id number] #### [facility] ([id number]) [address] [facility], [address] [place] [address] Glucose [Mass/Vol] 137 mg/dL High 65-99 [facility] Comment on above: Performed By: #### Chanel ERICKSON CMP, 1986-02 #### [facility] ([id number]) [address] [place] [address] 44607 #### 40055-5 #### [facility] ([id number]) [address], [address] [place] [address] Potassium [Moles/Vol] 3.8 mmol/L Normal 3.5-5.0 [facility] Comment on above: Performed By: #### C SEAN ERICKSON, 1986-02 #### [facility] ([id number]) [address] [place] [address] 88528 #### 16892-3 #### [facility] ([id number]) [address], [address] [place] [address] Protein [Mass/Vol] 7.9 g/dL Normal 6.0-8.0 [facility] Comment on above: Performed By: #### C SEAN ERICKSON, 1986-02 #### [facility] ([id number]) [address] [place] [address] 66615 #### 52031-4 #### [facility] ([id number]) [address], [address] [place] [address] Sodium [Moles/Vol] 140 mmol/L Normal 134-146 [facility] Comment on above: Performed By: #### Chanel ERICKSON CMP, 1986-02 #### [facility] ([id number]) [address] [place] [address] 57169 #### 82047-0 #### [facility] ([id number]) [address], [address] [place] [address] Urea nitrogen [Mass/Vol] 18 mg/dL Normal 5-27 [facility] Comment on above: Performed By: #### Chanel ERICKSON CMP, 1986-02 #### [facility] ([id number]) [address] [place] [address] 53831 #### 91706-9 #### [facility] ([id number]) [address] [facility], [address] [place] [address] Glucose Glucometer (BldC) [M ass/Vol]on 12-24-2023 Glucose [Mass/Vol] 136 mg/dL High 65-99 [facility] Glucose [Mass/Vol] 123 mg/dL High 65-99 [facility] Glucose [Mass/Vol] 152 mg/dL High 65-99 [facility] MAGNESIUMon 12-24-2023 Magnesium [Mass/Vol] 2.2 mg/dL Normal 1.8-2.6 [facility] Comment on above: Performed By: #### Chanel ERICKSON CMP, 1986-02 #### [facility] ([id number]) [address] [place] [address] 38078 #### 01448-5 #### [facility] ([id number]) [address] [facility], [address] [place] [address] POTASSIUMon 12-24-2023 Potassium [Moles/Vol] 4.0 mmol/L Normal 3.5-5.0 [facility] Comment on above: Performed By: #### Chanel ERICKSON CMP, 1986-02 #### [facility] ([id number]) [address] [place] [address] 23865 #### 10507-8 #### [facility] ([id number]) [address] [facility], [address] [place] [address] PROTIME AND INRon 12-24-2023 INR Coag (PPP) [Relative time] 2.8 {INR} High 0.8-1.1 [facility] Comment on above: Performed By: #### Chanel ERICKSON CMP, 1986-02 #### [facility] ([id number]) [address] [place] [address] 59384 #### 46704-7 #### [facility] ([id number]) [address] [facility], [address] [place] [address] PT Coag (PPP) [Time] 30.9 s High 9.8-13.2 [facility] Comment on above: Result Comment: NEW REFERENCE RANGE Performed By: #### Chanel ERICKSON CMP, 1986-02 #### [facility] ([id number]) [address] [place] [address] 38630 #### 65087-0 #### [facility] ([id number]) [address] [facility], [address] [place] [address] Vancomycin trough [Mass/Vol] on 12-24-2023 VANCOMYCIN TROUGH 11.4 ug/mL Normal 5.0-20.0 [facility] Comment on above: Performed By: #### Chanel ERICKSON CMP, 1986-02 #### [facility] ([id number]) [address] [place] [address] 27047 #### 14022-7 #### [facility] ([id number]) [address] [facility], [address] [place] [address] CBC AND AUTO DIFFon 12-23-19 24 ABSOLUTE BASOPHIL 0.1 X10E9/L Normal 0.0-0.2 [facility] Comment on above: Performed By: #### C DRE, PINR, CMP, 46959-9 ####[facility] ([id number])[address] [place] [address] 11411 ABSOLUTE NEUTROPHIL 10.1 X10E9/L High 1.5-6.6 [facility] Comment on above: Performed By: #### C DRE, PINR, CMP, 98920-7 ####[facility] ([id number])[address] [place] [address] 00444 Basophils/100 WBC (Bld) 1.0 % Normal [facility] Comment on above: Performed By: #### C DRE, PINR, CMP, ####[facility] ([id number])[address] [place] [address] 94009 Eosinophils (Bld) [#/Vol] 0.8 10*3/uL High 0.0-0.4 [facility] Comment on above: Performed By: #### C DRE, PINR, CMP, 75441-0 ####[facility] ([id number])[address] [place] [address] 76014 Eosinophils/100 WBC (Bld) 5.8 % Normal [facility] Comment on above: Performed By: #### C DRE, PINR, CMP, ####[facility] ([id number])[address] [place] [address] 70683 Erythrocyte distribution width (RBC) [Ratio] 13.8 % Normal 11.5-15.0 [facility] Comment on above: Performed By: #### Chanel ERICKSON, PINR, CMP, ####[facility] ([id number])[address] [place] [address] 37574 Hematocrit (Bld) [Volume fraction] 36.1 % Normal 35-47 [facility] Comment on above: Performed By: #### Chanel BCA, PINR, CMP, ####[facility] ([id number])[address] [place] [address] 34531 Hemoglobin (Bld) [Mass/Vol] 12.1 g/dL Normal 11.7-15.5 [facility] Comment on above: Performed By: #### Chanel BCA, PINR, CMP, ####[facility] ([id number])[address] [place] [address] 49454 Lymphocytes (Bld) [#/Vol] 2.4 10*3/uL Normal 1.0-3.5 [facility] Comment on above: Performed By: #### Chanel BCA, PINR, CMP, ####[facility] ([id number])[address] [place] [address] 66493 Lymphocytes/100 WBC (Bld) 16.6 % Normal [facility] Comment on above: Performed By: #### C BCA, PINR, CMP, ####[facility] ([id number])[address] [place] [address] 40792 MCH (RBC) [Entitic mass] 29.0 pg Normal 27-34 [facility] Comment on above: Performed By: #### C BCA, PINR, CMP, ####[facility] ([id number])[address] [place] [address] 02269 MCHC (RBC) [Mass/Vol] 33.6 g/dL Normal 32-36 [facility] Comment on above: Performed By: #### C BCA, PINR, CMP, ####[facility] ([id number])[address] [place] [address] 82454 MCV (RBC) [Entitic vol] 86 fL Normal 80-100 [facility] Comment on above: Performed By: #### C BCA, PINR, CMP, ####[facility] ([id number])[address] [place] [address] 86816 Monocytes (Bld) [#/Vol] 1.1 10*3/uL High 0-0.9 [facility] Comment on above: Performed By: #### C BCA, PINR, CMP, ####[facility] ([id number])[address] [place] [address] 88281 Monocytes/100 WBC (Bld) 7.3 % Normal [facility] Comment on above: Performed By: #### C BCA, PINR, CMP, ####[facility] ([id number])[address] [place] [address] 95908 Neutrophils/100 WBC (Bld) 69.3 % Normal [facility] Comment on above: Performed By: #### C DRE, PINR, CMP, ####[facility] ([id number])[address] [place] [address] 32983 Platelet mean volume (Bld) [Entitic vol] 8.5 fL Normal 7-12 [facility] Comment on above: Performed By: #### C BCA, PINR, CMP, ####[facility] ([id number])[address] [place] [address] 48170 Platelets (Bld) [#/Vol] 286 10*3/uL Normal 150-450 [facility] Comment on above: Performed By: #### Chanel ERICKSON, PINR, CMP, ####[facility] ([id number])[address] [place] [address] 38410 RBC COUNT 4.19 X10E12/L Normal 3.80-5.20 [facility] Comment on above: Performed By: #### Chanel ERICKSON, PINR, CMP, ####[facility] ([id number])[address] [place] [address] 36263 WBC (Bld) [#/Vol] 14.6 10*3/uL High 4.0-11.0 [facility] Comment on above: Performed By: #### Chanel BCA, PINR, CMP, ####[facility] ([id number])[address] [place] [address] 85151 COMPREHENSIVE METABOLIC PANE [place] 12-23-2023 Albumin [Mass/Vol] 3.1 g/dL Low 3.2-5.3 [facility] Comment on above: Performed By: #### Chanel ERICKSON, CMP, 1986-02 #### [facility] ([id number]) [address] [place] [address] [place] [address] #### 99332-2 #### [facility] ([id number]) [address], [address] [place] [address] ALP [Catalytic activity/Vol] 60 U/L Normal 39-130 [facility] Comment on above: Performed By: #### Chanel ERICKSON CMP, 1986-02 #### [facility] ([id number]) [address] [place] [address] 86636 #### 13848-9 #### [facility] ([id number]) [address], [address] [place] [address] ALT [Catalytic activity/Vol] 12 U/L Normal 0-31 [facility] Comment on above: Performed By: #### Chanel ERICKSON CMP, 1986-02 #### [facility] ([id number]) [address] [place] [address] 82446 #### 17846-4 #### [facility] ([id number]) [address], [address] [place] [address] Anion gap [Moles/Vol] 9 mmol/L Normal 5-15 [facility] Comment on above: Performed By: #### Chanel ERICKSON CMP, 1986-02 #### [facility] ([id number]) [address] [place] [address] 80111 #### 86531-8 #### [facility] ([id number]) [address], [address] [place] [address] AST [Catalytic activity/Vol] 14 U/L Normal 0-41 [facility] Comment on above: Performed By: #### Chanel ERICKSON CMP, 1986-02 #### [facility] ([id number]) [address] [place] [address] 63246 #### 75745-8 #### [facility] ([id number]) [address], [address] [place] [address] Bilirubin [Mass/Vol] 0.6 mg/dL Normal 0.3-1.2 [facility] Comment on above: Performed By: #### Chanel ERICKSON [facility], 1986-02 #### [facility] ([id number]) [address] [place] [address] 26599 #### 23768-4 #### [facility] ([id number]) [address], [address] [place] [address] Calcium [Mass/Vol] 8.5 mg/dL Normal 8.5-10.5 [facility] Comment on above: Performed By: #### Chanel ERICKSON [facility], 1986-02 #### [facility] ([id number]) [address] [place] [address] 29501 #### 65479-4 #### [facility] ([id number]) [address], [address] [place] [address] Chloride [Moles/Vol] 99 mmol/L Normal 98-109 [facility] Comment on above: Performed By: #### Chanel ERICKSON [facility], 1986-02 #### [facility] ([id number]) [address] [place] [address] 79669 #### 71267-9 #### [facility] ([id number]) [address], [address] [place] [address] CO2 [Moles/Vol] 28 mmol/L Normal 22-32 [facility] Comment on above: Performed By: #### Chanel ERICKSON [facility], 1986-02 #### [facility] ([id number]) [address] [place] [address] 95777 #### 22622-5 #### [facility] ([id number]) [address], [address] [place] [address] Creatinine [Mass/Vol] 0.75 mg/dL Normal 0.40-1.00 [facility] Comment on above: Result Comment: METH OD TRACEABLE TO IDMS STANDARD Performed By: #### Chanel ERICKSON CMP, 1986-02 #### [facility] ([id number]) [address] [place] [address] 79466 #### 04904-7 #### [facility] ([id number]) [address], [address] [place] [address] GFR/1.73 sq M.predicted among non-blacks MDRD (S/P/Bld) [Vol rate/Area] 85 mL/min/{1.73_m2} Normal >59 [facility] Comment on above: Result Comment: Reported eGFR is based on the CKD-EPI 2020 equation that does not use a race coefficient. Performed By: #### Chanel ERICKSON CMP, 1986-02 #### [facility] ([id number]) [address] [place] [address] 77382 #### 36558-1 #### [facility] ([id number]) [address] [facility], [address] [place] [address] Glucose [Mass/Vol] 122 mg/dL High 65-99 [facility] Comment on above: Performed By: #### Chanel ERICKSON CMP, 1986-02 #### [facility] ([id number]) [address] [place] [address] 98162 #### 19399-7 #### [facility] ([id number]) [address], [address] [place] [address] Potassium [Moles/Vol] 3.5 mmol/L Normal 3.5-5.0 [facility] Comment on above: Performed By: #### Chanel ERICKSON CMP, 1986-02 #### [facility] ([id number]) [address] [place] [address] 98148 #### 37629-9 #### [facility] ([id number]) [address], [address] [place] [address] Protein [Mass/Vol] 7.3 g/dL Normal 6.0-8.0 [facility] Comment on above: Performed By: #### Chanel ERICKSON CMP, 1986-02 #### [facility] ([id number]) [address] [place] [address] 27655 #### 83063-7 #### [facility] ([id number]) [address] [facility], [address] [place] [address] Sodium [Moles/Vol] 136 mmol/L Normal 134-146 [facility] Comment on above: Performed By: #### Chanel ERICKSON CMP, 1986-02 #### [facility] ([id number]) [address] [place] [address] 79351 #### 94636-3 #### [facility] ([id number]) [address] [facility], [address] [place] [address] Urea nitrogen [Mass/Vol] 15 mg/dL Normal 5-27 [facility] Comment on above: Performed By: #### Chanel ERICKSON CMP, 1986-02 #### [facility] ([id number]) [address] [place] [address] 35606 #### 66284-1 #### [facility] ([id number]) [address] [place] [address] Glucose Glucometer (BldC) [M ass/Vol]on 12-23-2023 Glucose [Mass/Vol] 158 mg/dL High 65-99 [facility] Glucose [Mass/Vol] 141 mg/dL High 65-99 [facility] HGB A1C (GLYCO-HGB)on 2023 Glucose [Mass/Vol] 140 mg/dL Normal [facility] Comment on above: Performed By: #### Chanel ERICKSON CMP, 1986-02 #### [facility] ([id number]) [address] [place] [address] 79914 #### 67566-8 #### [facility] ([id number]) [address] [facility], [address] [place] [address] HbA1c (Bld) [Mass fraction] 6.5 % High 4.4-5.6 [facility] Comment on above: Result Comment: NOTE ADA Guidelines Result HgbA1c Normal : less than 5.7 % Prediabetes : 5.7 % to 6.4 % Diabetes : > 6.4 % Use with caution in patients with abnormal hemoglobin variants as the half-life of red blood cells and in vivo glycation rates are affected. Performed By: #### C SEAN ERICKSON, 1986-02 #### [facility] ([id number]) [address] [place] [address] 04938 #### 30880-2 #### [facility] ([id number]) [address] [facility], [address] [place] [address] 21708 MAGNESIUMon 12-23-2023 Magnesium [Mass/Vol] 2.0 mg/dL Normal 1.8-2.6 [facility] Comment on above: Performed By: #### Chanel ERICKSON [facility], 1986-02 #### [facility] ([id number]) [address] [place] [address] 74841 #### 85392-8 #### [facility] ([id number]) [address] [facility], [address] [place] [address] POTASSIUMon 12-23-2023 Potassium [Moles/Vol] 4.4 mmol/L Normal 3.5-5.0 [facility] Comment on above: Performed By: #### Chanel ERICKSON CMP, 1986-02 #### [facility] ([id number]) [address] [place] [address] 52944 #### 19451-1 #### [facility] ([id number]) [address] [facility], [address] [place] [address] PROTIME AND INRon 12-23-2023 INR Coag (PPP) [Relative time] 2.7 {INR} High 0.8-1.1 [facility] Comment on above: Performed By: #### C BCA, PINR, CMP, ####[facility] ([id number])[address] [place] [address] 46347 PT Coag (PPP) [Time] 29.9 s High 9.8-13.2 [facility] Comment on above: Result Comment: NEW REFERENCE RANGE Performed By: #### C BCA, PINR, CMP, ####[facility] ([id number])[address] [place] [address] 62341 CBC AND AUTO DIFFon 12-22-19 24 ABSOLUTE BASOPHIL 0.2 X10E9/L Normal 0.0-0.2 [facility] Comment on above: Performed By: #### P INR, CMP, , CBCA ####[facility] ([id number])[address] [place] [address] 19440 ABSOLUTE NEUTROPHIL 10.5 X10E9/L High 1.5-6.6 [facility] Comment on above: Performed By: #### P INR, CMP, , CBCA ####[facility] ([id number])[address] [place] [address] 78563 Basophils/100 WBC (Bld) 1.0 % Normal [facility] Comment on above: Performed By: #### P INR, CMP, , CBCA ####[facility] ([id number])[address] [place] [address] 93482 Eosinophils (Bld) [#/Vol] 1.1 10*3/uL High 0.0-0.4 [facility] Comment on above: Performed By: #### P INR, CMP, , CBCA ####[facility] ([id number])[address] [place] [address] 86569 Eosinophils/100 WBC (Bld) 6.9 % Normal [facility] Comment on above: Performed By: #### P INR, CMP, , CBCA ####[facility] ([id number])[address] [place] [address] 63184 Erythrocyte distribution width (RBC) [Ratio] 13.7 % Normal 11.5-15.0 [facility] Comment on above: Performed By: #### P INR, CMP, , CBCA ####[facility] ([id number])[address] [place] [address] 90997 Hematocrit (Bld) [Volume fraction] 34.0 % Low 35-47 [facility] Comment on above: Performed By: #### P INR, CMP, , CBCA ####[facility] ([id number])[address] [place] [address] 11616 Hemoglobin (Bld) [Mass/Vol] 11.4 g/dL Low 11.7-15.5 [facility] Comment on above: Performed By: #### P INR, CMP, , CBCA ####[facility] ([id number])[address] [place] [address] 93787 Lymphocytes (Bld) [#/Vol] 3.5 10*3/uL Normal 1.0-3.5 [facility] Comment on above: Performed By: #### P INR, CMP, , CBCA ####[facility] ([id number])[address] [place] [address] 34200 Lymphocytes/100 WBC (Bld) 21.4 % Normal [facility] Comment on above: Performed By: #### P INR, CMP, , CBCA ####[facility] ([id number])[address] [place] [address] 26849 MCH (RBC) [Entitic mass] 29.1 pg Normal 27-34 [facility] Comment on above: Performed By: #### P INR, CMP, , CBCA ####[facility] ([id number])[address] [place] [address] 07908 MCHC (RBC) [Mass/Vol] 33.6 g/dL Normal 32-36 [facility] Comment on above: Performed By: #### P INR, CMP, , CBCA ####[facility] ([id number])[address] [place] [address] 08286 MCV (RBC) [Entitic vol] 87 fL Normal 80-100 [facility] Comment on above: Performed By: #### P INR, CMP, , CBCA ####[facility] ([id number])[address] [place] [address] 18962 Monocytes (Bld) [#/Vol] 0.9 10*3/uL Normal 0-0.9 [facility] Comment on above: Performed By: #### P INR, CMP, , CBCA ####[facility] ([id number])[address] [place] [address] 50909 Monocytes/100 WBC (Bld) 5.8 % Normal [facility] Comment on above: Performed By: #### P INR, CMP, , CBCA ####[facility] ([id number])[address] [place] [address] 35458 Neutrophils/100 WBC (Bld) 64.9 % Normal [facility] Comment on above: Performed By: #### P INR, CMP, , CBCA ####[facility] ([id number])[address] [place] [address] 04955 Platelet mean volume (Bld) [Entitic vol] 8.8 fL Normal 7-12 [facility] Comment on above: Performed By: #### P INR, CMP, , CBCA ####[facility] ([id number])[address] [place] [address] 03761 Platelets (Bld) [#/Vol] 258 10*3/uL Normal 150-450 [facility] Comment on above: Performed By: #### P INR, CMP, , CBCA ####[facility] ([id number])[address] [place] [address] 29472 RBC COUNT 3.92 X10E12/L Normal 3.80-5.20 [facility] Comment on above: Performed By: #### P INR, CMP, , CBCA ####[facility] ([id number])[address] [place] [address] 50184 WBC (Bld) [#/Vol] 16.2 10*3/uL High 4.0-11.0 [facility] Comment on above: Performed By: #### P INR, CMP, , CBCA ####[facility] ([id number])[address] [place] [address] 80148 COMPREHENSIVE METABOLIC PANE [place] 12-22-2023 Albumin [Mass/Vol] 3.4 g/dL Normal 3.2-5.3 [facility] Comment on above: Performed By: #### P INR, CMP, , CBCA ####[facility] ([id number])[address] [place] [address] [id number] ALP [Catalytic activity/Vol] 59 U/L Normal 39-130 [facility] Comment on above: Performed By: #### P INR, CMP, , CBCA ####[facility] ([id number])[address] [place] [address] [id number] ALT [Catalytic activity/Vol] 11 U/L Normal 0-31 [facility] Comment on above: Performed By: #### P INR, CMP, , CBCA ####[facility] ([id number])[address] [place] [address] [id number] Anion gap [Moles/Vol] 11 mmol/L Normal 5-15 [facility] Comment on above: Performed By: #### P INR, CMP, , CBCA ####[facility] ([id number])[address] [place] [address] [id number] AST [Catalytic activity/Vol] 14 U/L Normal 0-41 [facility] Comment on above: Performed By: #### P INR, CMP, , CBCA ####[facility] ([id number])[address] [place] [address] [id number] Bilirubin [Mass/Vol] 0.8 mg/dL Normal 0.3-1.2 [facility] Comment on above: Performed By: #### P INR, CMP, , CBCA ####[facility] ([id number])[address] [place] [address] 61299 Calcium [Mass/Vol] 8.5 mg/dL Normal 8.5-10.5 [facility] [facility] Comment on above: Performed By: #### P INR, CMP, , CBCA ####[facility] ([id number])[address] [place] [address] 36274 Chloride [Moles/Vol] 98 mmol/L Normal 98-109 [facility] Comment on above: Performed By: #### P INR, CMP, , CBCA ####[facility] ([id number])[address] [place] [address] 01537 CO2 [Moles/Vol] 26 mmol/L Normal 22-32 [facility] Comment on above: Performed By: #### P INR, CMP, , CBCA ####[facility] ([id number])[address] [place] [address] 29065 Creatinine [Mass/Vol] 0.78 mg/dL Normal 0.40-1.00 [facility] Comment on above: Result Comment: METH OD TRACEABLE TO IDMS STANDARD Performed By: #### P INR, CMP, , CBCA ####[facility] ([id number])[address] [place] [address] 34043 GFR/1.73 sq M.predicted among non-blacks MDRD (S/P/Bld) [Vol rate/Area] 81 mL/min/{1.73_m2} Normal >59 [facility] Comment on above: Result Comment: Reported eGFR is based on the CKD-EPI 2020 equation that does not use a race coefficient. Performed By: #### P INR, CMP, , CBCA ####[facility] ([id number])[address] [place] [address] 87103 Glucose [Mass/Vol] 121 mg/dL High 65-99 [facility] Comment on above: Performed By: #### P INR, CMP, , CBCA ####[facility] ([id number])[address] [place] [address] 87335 Potassium [Moles/Vol] 3.5 mmol/L Normal 3.5-5.0 [facility] Comment on above: Performed By: #### P INR, CMP, , CBCA ####[facility] ([id number])[address] [place] [address] [place] [address] Protein [Mass/Vol] 7.2 g/dL Normal 6.0-8.0 [facility] Comment on above: Performed By: #### P INR, CMP, , CBCA ####[facility] ([id number])[address] [place] [address] 90241 Sodium [Moles/Vol] 135 mmol/L Normal 134-146 [facility] Comment on above: Performed By: #### P INR, CMP, , CBCA ####[facility] ([id number])[address] [place] [address] 60909 Urea nitrogen [Mass/Vol] 15 mg/dL Normal 5-27 [facility] Comment on above: Performed By: #### P INR, CMP, , CBCA ####[facility] ([id number])[address] [place] [address] 77653 Glucose Glucometer (BldC) [M ass/Vol]on 12-22-2023 Glucose [Mass/Vol] 147 mg/dL High 65-99 [facility] Glucose [Mass/Vol] 136 mg/dL High 65-99 [facility] Glucose [Mass/Vol] 120 mg/dL High 65-99 [facility] MAGNESIUMon 12-22-2023 Magnesium [Mass/Vol] 2.0 mg/dL Normal 1.8-2.6 [facility] Comment on above: Performed By: #### P INR, CMP, , CBCA ####[facility] ([id number])[address] [place] [address] 43537 PROTIME AND INRon 12-22-2023 INR Coag (PPP) [Relative time] 2.6 {INR} High 0.8-1.1 [facility] Comment on above: Performed By: #### P INR, CMP, , CBCA ####[facility] ([id number])[address] [place] [address] 40837 PT Coag (PPP) [Time] 29.0 s High 9.8-13.2 [facility] Comment on above: Result Comment: NEW REFERENCE RANGE Performed By: #### P INR, CMP, , CBCA ####[facility] ([id number])[address] [place] [address] 19081 Vancomycin trough [Mass/Vol] on 12-22-2023 VANCOMYCIN TROUGH 15.2 ug/mL Normal 5.0-20.0 [facility] Comment on above: Performed By: #### 4 092-3 ####[facility] ([id number])[address] [place] [address] 48983 CBC AND AUTO DIFFon 12-21-19 ABSOLUTE BASOPHIL 0.1 X10E9/L Normal 0.0-0.2 [facility] Comment on above: Performed By: #### C BCA, [facility], #### [facility] ([id number]) [address] [place] [address] 46259 ABSOLUTE NEUTROPHIL 11.5 X10E9/L High 1.5-6.6 [facility] Comment on above: Performed By: #### C BCA, [facility], 95519-0 #### [facility] ([id number]) [address] [place] [address] 69552 Basophils/100 WBC (Bld) 0.8 % Normal [facility] Comment on above: Performed By: #### C BCA, [facility], #### [facility] ([id number]) [address] [place] [address] 43050 Eosinophils (Bld) [#/Vol] 0.3 10*3/uL Normal 0.0-0.4 [facility] Comment on above: Performed By: #### C BCA, CMP, #### [facility] ([id number]) [address] [place] [address] 02306 Eosinophils/100 WBC (Bld) 2.2 % Normal [facility] Comment on above: Performed By: #### Chanel ERICKSON [facility], #### [facility] ([id number]) [address] [place] [address] 69646 Erythrocyte distribution width (RBC) [Ratio] 14.0 % Normal 11.5-15.0 [facility] Comment on above: Performed By: #### Chanel ERICKSON [facility], #### [facility] ([id number]) [address] [place] [address] 02238 Hematocrit (Bld) [Volume fraction] 34.8 % Low 35-47 [facility] Comment on above: Performed By: #### Chanel ERICKSON [facility], #### [facility] ([id number]) [address] [place] [address] 71934 Hemoglobin (Bld) [Mass/Vol] 11.4 g/dL Low 11.7-15.5 [facility] Comment on above: Performed By: #### Chanel ERICKSON [facility], #### [facility] ([id number]) [address] [place] [address] 42016 Lymphocytes (Bld) [#/Vol] 2.0 10*3/uL Normal 1.0-3.5 [facility] Comment on above: Performed By: #### Chanel ERICKSON CMP, #### [facility] ([id number]) [address] [place] [address] 50732 Lymphocytes/100 WBC (Bld) 13.2 % Normal [facility] Comment on above: Performed By: #### Chanel ERICKSON CMP, #### [facility] ([id number]) [address] [place] [address] MCH (RBC) [Entitic mass] 28.5 pg Normal 27-34 [facility] Comment on above: Performed By: #### Chanel ERICKSON CMP, #### [facility] ([id number]) [address] [place] [address] 34223 MCHC (RBC) [Mass/Vol] 32.6 g/dL Normal 32-36 [facility] Comment on above: Performed By: #### Chanel ERICKSON CMP, #### [facility] ([id number]) [address] [place] [address] 43687 MCV (RBC) [Entitic vol] 87 fL Normal 80-100 [facility] Comment on above: Performed By: #### Chanel ERICKSON CMP, #### [facility] ([id number]) [address] [place] [address] 50142 Monocytes (Bld) [#/Vol] 1.3 10*3/uL High 0-0.9 [facility] Comment on above: Performed By: #### Chanel ERICKSON CMP, #### [facility] ([id number]) [address] [place] [address] 40817 Monocytes/100 WBC (Bld) 8.7 % Normal [facility] Comment on above: Performed By: #### Chanel ERICKSON CMP, #### [facility] ([id number]) [address] [place] [address] 00578 Neutrophils/100 WBC (Bld) 75.1 % Normal [facility] Comment on above: Performed By: #### Chanel ERICKSON CMP, #### [facility] ([id number]) [address] [place] [address] 31276 Platelet mean volume (Bld) [Entitic vol] 8.8 fL Normal 7-12 [facility] Comment on above: Performed By: #### Chanel ERICKSON CMP, 49866-3 #### [facility] ([id number]) [address] [place] [address] 18836 Platelets (Bld) [#/Vol] 257 10*3/uL Normal 150-450 [facility] Comment on above: Performed By: #### C BCA, CMP, 18432-6 #### [facility] ([id number]) [address] [place] [address] 64014 RBC COUNT 3.98 X10E12/L Normal 3.80-5.20 [facility] Comment on above: Performed By: #### C BCA, CMP, 75621-4 #### [facility] ([id number]) [address] [place] [address] 46854 WBC (Bld) [#/Vol] 15.3 10*3/uL High 4.0-11.0 [facility] Comment on above: Performed By: #### C BCA, CMP, 77521-9 #### [facility] ([id number]) [address] [place] [address] 63178 COMPREHENSIVE METABOLIC PANE Tyrone 12-21-2023 Albumin [Mass/Vol] 3.3 g/dL Normal 3.2-5.3 [facility] Comment on above: Performed By: #### C BCA, CMP, 64050-6 ####[facility] ([id number])[address] [place] [address] 84302 ALP [Catalytic activity/Vol] 59 U/L Normal 39-130 [facility] Comment on above: Performed By: #### C BCA, CMP, 11776-1 ####[facility] ([id number])[address] [place] [address] 50578 ALT [Catalytic activity/Vol] 13 U/L Normal 0-31 [facility] Comment on above: Performed By: #### C BCA, CMP, 55473-0 ####[facility] ([id number])[address] [place] [address], [place] [address] Anion gap [Moles/Vol] 11 mmol/L Normal 5-15 [facility] Comment on above: Performed By: #### C BCA, CMP, 73564-1 ####[facility] ([id number])[address] [place] [address], [place] [address] AST [Catalytic activity/Vol] 11 U/L Normal 0-41 [facility] Comment on above: Performed By: #### C DRE, CMP, 21256-5 ####[facility] ([id number])[address] [place] [address] 77065 Bilirubin [Mass/Vol] 1.0 mg/dL Normal 0.3-1.2 [facility] Comment on above: Performed By: #### C DRE, CMP, ####[facility] ([id number])[address] [place] [address] [place] [address] Calcium [Mass/Vol] 8.5 mg/dL Normal 8.5-10.5 [facility] Comment on above: Performed By: #### C DRE, [facility], ####[facility] ([id number])[address] [place] [address], [place] [address] Chloride [Moles/Vol] 101 mmol/L Normal 98-109 [facility] Comment on above: Performed By: #### C BCA, CMP, 55403-4 ####[facility] ([id number])[address] [place] [address] [place] [address] CO2 [Moles/Vol] 25 mmol/L Normal 22-32 [facility] Comment on above: Performed By: #### C BCA, CMP, 64938-6 ####[facility] ([id number])[address] [place] [address], [place] [address] Creatinine [Mass/Vol] 0.66 mg/dL Normal 0.40-1.00 [facility] Comment on above: Result Comment: METH OD TRACEABLE TO IDMS STANDARD Performed By: #### C SEAN ERICKSON, ####[facility] ([id number])[address] [place] [address] 69797 eGFR (CKD-EPI) NON-RACE DEPENDENT >90 Normal >59 [facility] Comment on above: Result Comment: Reported eGFR is based on the CKD-EPI 2020 equation that does not use a race coefficient. Performed By: #### C SEAN ERICKSON, ####[facility] ([id number])[address] [place] [address] 41442 Glucose [Mass/Vol] 132 mg/dL High 65-99 [facility] Comment on above: Performed By: #### Chanel ERICKSON CMP, 73906-5 ####[facility] ([id number])[address] [place] [address] 38137 Potassium [Moles/Vol] 3.5 mmol/L Normal 3.5-5.0 [facility] Comment on above: Performed By: #### C DRE [facility], 84058-9 ####[facility] ([id number])[address] [place] [address] 90936 Protein [Mass/Vol] 7.0 g/dL Normal 6.0-8.0 [facility] Comment on above: Performed By: #### C DRE [facility], 98900-4 ####[facility] ([id number])[address] [place] [address] 25076 Sodium [Moles/Vol] 137 mmol/L Normal 134-146 [facility] Comment on above: Performed By: #### C SEAN ERICKSON, 25638-2 ####[facility] ([id number])[address] [place] [address] 95405 Urea nitrogen [Mass/Vol] 15 mg/dL Normal 5-27 [facility] Comment on above: Performed By: #### C DRE [facility], 23672-0 ####[facility] ([id number])[address] [place] [address] 99119 Glucose Glucometer (BldC) [M ass/Vol]on 12-21-2023 Glucose [Mass/Vol] 130 mg/dL High 65-99 [facility] Glucose [Mass/Vol] 153 mg/dL High 65-99 [facility] Glucose [Mass/Vol] 206 mg/dL High 65-99 [facility] MAGNESIUMon 12-21-2023 Magnesium [Mass/Vol] 2.2 mg/dL Normal 1.8-2.6 [facility] Comment on above: Performed By: #### C DRE [facility], 79401-6 ####[facility] ([id number])[address] [place] [address] 49048 MR FOOT LT W WO CONTon 12-20 [...] Garcia MD on 12/21/2023 1:06 PM Normal [facility] POTASSIUMon 12-21-2023 Potassium [Moles/Vol] 3.8 mmol/L Normal 3.5-5.0 [facility] Comment on above: Performed By: #### 2 823-3 ####[facility] ([id number])[address] [place] [address] 17762 PROTIME AND INRon 12-21-2023 INR Coag (PPP) [Relative time] 2.4 {INR} High 0.8-1.1 [facility] Comment on above: Performed By: #### P INR ####[facility] ([id number])[address] [place] [address] 34150 PT Coag (PPP) [Time] 27.0 s High 9.8-13.2 [facility] Comment on above: Result Comment: NEW REFERENCE RANGE Performed By: #### P INR ####[facility] ([id number])[address] [place] [address] 72562 BLOOD CULTUREon 12-20-2023 Bacteria identified Aer cx Nom (Bld) SPECIMEN NOTES RSURFACE VEIN CULTURE RESULTS NO GROWTH 5 DAYS Normal [facility] Comment on above: Performed By: #### 1 7928-3 ####[facility] ([id number])[address] [place] [address] 19893 Bacteria identified Aer cx Nom (Bld) SPECIMEN NOTES SUBOPTIMAL VOLUME OF BLOOD COLLECTED, RESULTS MAY BE AFFECTED. CULTURE RESULTS NO GROWTH 5 DAYS Normal [facility] Comment on above: Performed By: #### 1 7928-3 ####[facility] ([id number])[address], [address] [place] [address] CBC AND AUTO DIFFon 12-20-19 24 ABSOLUTE BASOPHIL 0.1 X10E9/L Normal 0.0-0.2 [facility] Comment on above: Performed By: #### C BCA, CMP, 1987- #### [facility] ([id number]) [address] [place] [address] 20174 #### 15648-5 #### [facility] ([id number]) [address], [address] [place] [address] ABSOLUTE NEUTROPHIL 12.0 X10E9/L High 1.5-6.6 [facility] Comment on above: Performed By: #### Chanel ERICKSON CMP, 1988-02 #### [facility] ([id number]) [address] [place] [address] 17874 #### 84683-8 #### [facility] ([id number]) [address], [address] [place] [address] Basophils/100 WBC (Bld) 0.5 % Normal [facility] Comment on above: Performed By: #### Chanel ERICKSON CMP, 1988-02 #### [facility] ([id number]) [address] [place] [address] 14763 #### 72491-6 #### [facility] ([id number]) [address], [address] [place] [address] Eosinophils (Bld) [#/Vol] 0.3 10*3/uL Normal 0.0-0.4 [facility] Comment on above: Performed By: #### Chanel ERICKSON CMP, 1988-02 #### [facility] ([id number]) [address] [place] [address] 07761 #### 52672-5 #### [facility] ([id number]) [address], [address] [place] [address] Eosinophils/100 WBC (Bld) 2.0 % Normal [facility] Comment on above: Performed By: #### Chanel ERICKSON CMP, 1988-02 #### [facility] ([id number]) [address] [place] [address] 31062 #### 62262-1 #### [facility] ([id number]) [address], [address] [place] [address] Erythrocyte distribution width (RBC) [Ratio] 14.0 % Normal 11.5-15.0 [facility] Comment on above: Performed By: #### Chanel ERICKSON CMP, 1988-02 #### [facility] ([id number]) [address] [place] [address] 74002 #### 73448-3 #### [facility] ([id number]) [address], [address] [place] [address] Hematocrit (Bld) [Volume fraction] 36.1 % Normal 35-47 [facility] Comment on above: Performed By: #### Chanel ERICKSON CMP, 1988-02 #### [facility] ([id number]) [address] [place] [address] 72698 #### 74827-5 #### [facility] ([id number]) [address], [address] [place] [address] Hemoglobin (Bld) [Mass/Vol] 12.1 g/dL Normal 11.7-15.5 [facility] Comment on above: Performed By: #### Chanel ERICKSON CMP, 1988-02 #### [facility] ([id number]) [address] [place] [address] 84597 #### 62361-2 #### [facility] ([id number]) [address], [address] [place] [address] Lymphocytes (Bld) [#/Vol] 2.4 10*3/uL Normal 1.0-3.5 [facility] Comment on above: Performed By: #### Chanel ERICKSON CMP, 1988-02 #### [facility] ([id number]) [address] [place] [address] 37847 #### 66008-4 #### [facility] ([id number]) [address], [address] [place] [address] Lymphocytes/100 WBC (Bld) 14.9 % Normal [facility] Comment on above: Performed By: #### Chanel ERICKSON CMP, 1988-02 #### [facility] ([id number]) [address] [place] [address] 14951 #### 33947-2 #### [facility] ([id number]) [address], [address] [place] [address] MCH (RBC) [Entitic mass] 28.9 pg Normal 27-34 [facility] Comment on above: Performed By: #### Chanel ERICKSON CMP, 1988-02 #### [facility] ([id number]) [address] [place] [address] 57116 #### 38804-1 #### [facility] ([id number]) [address], [address] [place] [address] MCHC (RBC) [Mass/Vol] 33.5 g/dL Normal 32-36 [facility] Comment on above: Performed By: #### Chanel ERICKSON CMP, 1988-02 #### [facility] ([id number]) [address] [place] [address] 89428 #### 32479-5 #### [facility] ([id number]) [address], [address] [place] [address] MCV (RBC) [Entitic vol] 86 fL Normal 80-100 [facility] Comment on above: Performed By: #### Chanel ERICKSON CMP, 1988-02 #### [facility] ([id number]) [address] [place] [address] 66296 #### 12261-9 #### [facility] ([id number]) [address], [address] [place] [address] Monocytes (Bld) [#/Vol] 1.5 10*3/uL High 0-0.9 [facility] Comment on above: Performed By: #### Chanel ERICKSON CMP, 1988-02 #### [facility] ([id number]) [address] [place] [address] 55311 #### 01814-8 #### [facility] ([id number]) [address] [place] [address] Monocytes/100 WBC (Bld) 9.3 % Normal [facility] Comment on above: Performed By: #### Chanel ERICKSON CMP, 1988-02 #### [facility] ([id number]) [address] [place] [address] 43007 #### 63641-1 #### [facility] ([id number]) [address] [place] [address] Neutrophils/100 WBC (Bld) 73.3 % Normal [facility] Comment on above: Performed By: #### Chanel ERICKSON CMP, 1988-02 #### [facility] ([id number]) [address] [place] [address] 32870 #### 67083-1 #### [facility] ([id number]) [address] [place] [address] Platelet mean volume (Bld) [Entitic vol] 8.4 fL Normal 7-12 [facility] Comment on above: Performed By: #### Chanel ERICKSON CMP, 1988-02 #### [facility] ([id number]) [address] [place] [address] 44435 #### 08710-0 #### [facility] ([id number]) [address] [place] [address] Platelets (Bld) [#/Vol] 282 10*3/uL Normal 150-450 [facility] Comment on above: Performed By: #### C BCA, CMP, 1988-02 #### [facility] ([id number]) [address] [place] [address] 36568 #### 70842-0 #### [facility] ([id number]) [address] [place] [address] RBC COUNT 4.18 X10E12/L Normal 3.80-5.20 [facility] Comment on above: Performed By: #### C BCA, CMP, 1988-02 #### [facility] ([id number]) [address] [place] [address] 72653 #### 16388-2 #### [facility] ([id number]) [address] [place] [address] WBC (Bld) [#/Vol] 16.4 10*3/uL High 4.0-11.0 [facility] Comment on above: Performed By: #### C BCA, CMP, 1988-02 #### [facility] ([id number]) [address] [place] [address] 69006 #### 95022-9 #### [facility] ([id number]) [address] [place] [address] COMPREHENSIVE METABOLIC PANE Tyrone 12-20-2023 Albumin [Mass/Vol] 3.7 g/dL Normal 3.2-5.3 [facility] Comment on above: Performed By: #### C BCA, CMP, 1988-02 #### [facility] ([id number]) [address] [place] [address] 63814 #### [id number] #### [facility] ([id number]) [address] [facility], [address] [place] [address] ALP [Catalytic activity/Vol] 74 U/L Normal 39-130 [facility] Comment on above: Performed By: #### C BCA, [facility], 1988-02 #### [facility] ([id number]) [address] [place] [address] #### [id number] #### [facility] ([id number]) [address], [address] [place] [address] ALT [Catalytic activity/Vol] 15 U/L Normal 0-31 [facility] Comment on above: Performed By: #### C BCA, [facility], 1988-02 #### [facility] ([id number]) [address] [place] [address] #### [id number] #### [facility] ([id number]) [address], [address] [place] [address] Anion gap [Moles/Vol] 6 mmol/L Normal 5-15 [facility] Comment on above: Performed By: #### C BCA, [facility], 1988-02 #### [facility] ([id number]) [address] [place] [id number] #### [id number] #### [facility] ([id number]) [address], [address] [place] [address] AST [Catalytic activity/Vol] 17 U/L Normal 0-41 [facility] [facility] Comment on above: Performed By: #### C BCA, CMP, 1988-02 #### [facility] ([id number]) [address] [place] [address] 94861 #### [id number] #### [facility] ([id number]) [address] [place] [address] Bilirubin [Mass/Vol] 0.4 mg/dL Normal 0.3-1.2 [facility] Comment on above: Performed By: #### Chanel BCA, CMP, 1988-02 #### [facility] ([id number]) [address] [place] [address] 21941 #### [id number] #### [facility] ([id number]) [address] [facility] [facility] [address], [address] [place] [address] Calcium [Mass/Vol] 8.3 mg/dL Low 8.5-10.5 [facility] Comment on above: Performed By: #### Chanel ERICKSON CMP, 1988-02 #### [facility] ([id number]) [address] [place] [address] 31597 #### [id number] #### [facility] ([id number]) [address], [address] [place] [address] Chloride [Moles/Vol] 101 mmol/L Normal 98-109 [facility] Comment on above: Performed By: #### Chanel ERICKSON CMP, 1988-02 #### [facility] ([id number]) [address] [place] [address] 26063 #### [id number] #### [facility] ([id number]) [address], [address] [place] [address] CO2 [Moles/Vol] 26 mmol/L Normal 22-32 [facility] Comment on above: Performed By: #### Chanel BCA CMP, 1988-02 #### [facility] ([id number]) [address] [place] [address] 41957 #### [id number] #### [facility] ([id number]) [address] [facility], [address] [place] [address] Creatinine [Mass/Vol] 0.69 mg/dL Normal 0.40-1.00 [facility] Comment on above: Result Comment: METH OD TRACEABLE TO IDMS STANDARD Performed By: #### C BCA CMP, 1988-02 #### [facility] ([id number]) [address] [place] [address] 05756 #### [id number] #### [facility] ([id number]) [address], [address] [place] [address] eGFR (CKD-EPI) NON-RACE DEPENDENT >90 Normal >59 [facility] Comment on above: Result Comment: Reported eGFR is based on the CKD-EPI 2020 equation that does not use a race coefficient. Performed By: #### C SEAN ERICKSON, 1988-02 #### [facility] ([id number]) [address] [place] [address] 97531 #### [phone] #### [facility] ([id number]) [address] [facility], [address] [place] [address] Glucose [Mass/Vol] 132 mg/dL High 65-99 [facility] Comment on above: Performed By: #### Chanel ERICKSON CMP, 1988-02 #### [facility] ([id number]) [address] [place] [address] 63179 #### [id number] #### [facility] ([id number]) [address], [address] [place] [address] Potassium [Moles/Vol] 3.8 mmol/L Normal 3.5-5.0 [facility] Comment on above: Performed By: #### Chanel ERICKSON CMP, 1988-02 #### [facility] ([id number]) [address] [place] [address] 36060 #### [id number] #### [facility] ([id number]) [address], [address] [place] [address] Protein [Mass/Vol] 7.9 g/dL Normal 6.0-8.0 [facility] Comment on above: Performed By: #### Chanel ERICKSON CMP, 1988-02 #### [facility] ([id number]) [address] [place] [address] 02103 #### [id number] #### [facility] ([id number]) [address] [facility], [address] [place] [address] Sodium [Moles/Vol] 133 mmol/L Low 134-146 [facility] Comment on above: Performed By: #### Chanel ERICKSON CMP, 1988-02 #### [facility] ([id number]) [address] [place] [address] 98829 #### [id number] #### [facility] ([id number]) [address] [place] [address], [address] [place] [address] Urea nitrogen [Mass/Vol] 16 mg/dL Normal 5-27 [facility] Comment on above: Performed By: #### Chanel ERICKSON CMP, 1988-02 #### [facility] ([id number]) [address] [place] [address] 17567 #### [phone] #### [facility] ([id number]) [address] [place] [address], [address] [place] [address] CRP [Mass/Vol]on 12-20-2023 C REACTIVE PROTEIN 11.8 mg/dL High 0.000-0.744 [facility] Comment on above: Performed By: #### Chanel ERICKSON CMP, 1988-02 #### [facility] ([id number]) [address] [place] [address] 24779 #### [phone] #### [facility] ([id number]) [address] [place] [address], [address] [place] [address] ESR Photometric method (Bld) [Velocity]on 12-20-2023 ESR, ERYTHROCYTE SEDIMENTATION RATE 60 mm/h High 0-30 [facility] Comment on above: Performed By: #### Chanel ERICKSON CMP, 1988-02 #### [facility] ([id number]) [address] [place] [address] [place] [address] #### [id number] #### [facility] ([id number]) [address] [place] [address], [address] [place] [address] Glucose Glucometer (BldC) [M ass/Vol]on 12-20-2023 Glucose [Mass/Vol] 174 mg/dL High 65-99 [facility] URINALYSISon 12-20-2023 Bilirubin Ql (U) Negative Normal NEG [facility] Comment on above: Performed By: #### U A #### [facility] ([id number]) [address] [place] [address]20[address] BLOOD/HGB Negative Normal NEG [facility] Comment on above: Performed By: #### U A #### [facility] ([id number]) [address] [place] [address] 24476 Color (U) YELLOW Normal YELLOW [facility] Comment on above: Performed By: #### U A #### [facility] ([id number]) [address] [place] [address] 16902 Glucose Ql (U) Negative Normal NEG [facility] Comment on above: Performed By: #### U A #### [facility] ([id number]) [address] [place] [address] 072[address] Ketones Ql (U) Negative Normal NEG [facility] Comment on above: Performed By: #### U A #### [facility] ([id number]) [address] [place] [address] 09600 Leukocyte esterase Test strip Ql (U) Negative Normal NEG [facility] Comment on above: Performed By: #### U A #### [facility] ([id number]) [address] [place] [address]4639 Nitrite Ql (U) Positive Abnormal NEG [facility] Comment on above: Performed By: #### U A #### [facility] ([id number]) [address] [place] [address] 99560 pH (U) 6.0 [pH] Normal 5.0-8.5 [facility] Comment on above: Performed By: #### U A #### [facility] ([id number]) [address] [place] [address] 73675 Protein Ql (U) Negative Normal NEG [facility] Comment on above: Performed By: #### U A #### [facility] ([id number]) [address] [place] [address] 14519 R.B.CELLS 0 /hpf Normal 0-5 [facility] Comment on above: Performed By: #### U A #### [facility] ([id number]) [address] [place] [address] 40877 Specific gravity (U) [Rel density] 1.015 Normal 1.003-1.035 [facility] Comment on above: Performed By: #### U A #### [facility] ([id number]) [address] [place] [address] 38917 SQUAMOUS EPITHELIUM 0 to 3 Normal 0-5 [facility] Comment on above: Performed By: #### U A #### [facility] ([id number]) [address] [place] [address] 56836 TURBIDITY CLEAR Normal CLEAR [facility] Comment on above: Performed By: #### U A #### [facility] ([id number]) [address] [place] [address] 73202 Urobilinogen Qn (U) 0.2 {Mindy'U}/dL Normal <1.1 [facility] Comment on above: Performed By: #### U A #### [facility] ([id number]) [address] [place] [address], [place] [address] W.B.CELLS 0 to 1 Normal 0-5 [facility] Comment on above: Performed By: #### U A #### [facility] ([id number]) [address] [place] [address] XR FOOT LT MIN 3 VWSon XR [...] Bradshaw MD on 12/20/2023 6:37 PM Normal [facility] XR FOOT RT MIN 3 VWSon XR [...] Bradshaw MD on 12/20/2023 5:56 PM Normal [facility] XR KNEE RT 3 VWSon 4 XR [...] Andreas Araujo MD on 12/20/2023 5:05 PM [facility] 36on 11-16-2023 36 Please let her know her cholesterol levels look good. Continue pravastatin. Thanks [facility] Telephoneon 11-16-2023 Telephone [id number] Maximo Gill 1950 F Date Provider Department Center 11/16/2023 EBER PAGAN Family History Problem Relation Age of Onset Heart attack Father Diabetes Father Hypertension Father Coronary artery disease Father Rheum arthritis Father Family Status - Relation Status Age at Father [facility] 37on 11-01-2023 37 *Increase amlodipine to 10mg daily. You can take 2 tablets of your current 5mg prescription daily until this runs out then start new prescription of 1 - 10mg tablet daily. *Monitor your blood pressure daily 1-2 hours after medications *Have labs drawn *Follow-up with GI given dark stools Normal [facility] Office Visiton 11-01-2023 Follow-up visit [id number] Maximo Gill 1950 F Date Provider Department Center 11/01/2023 EBER PAGAN Family History Problem Relation Age of Onset Heart attack Father Diabetes Father Hypertension Father Coronary artery disease Father Rheum arthritis Father Family Status - Relation Status Age at Father Level of Service:13249 [place] OFFICE/OUTPATIENT ESTABLISHED MOD MDM 30 MIN Reason for Visit and Comments: Atrial Fibrillation [80] Congestive Heart Failure [127] [facility] Office Visiton 05-23-2023 Follow-up visit [id number] Maximo Gill Kassy 1950 F Date Provider Department Center 05/23/2023 RAMAN CASTANEDA [facility] Family History Problem Relation Age of Onset Heart attack Father Diabetes Father Hypertension Father Coronary artery disease Father Rheum arthritis Father Family Status - Relation Status Age at Father Level of Service:74781 [place] OFFICE/OUTPATIENT ESTABLISHED LOW MDM 20-29 MIN Normal [facility] CBC AUTO DIFFon 03-02-2023 BASO # 0.1 103/ul Normal 0.0-0.1 [facility] Comment on above: Performed By: #### C BC #### [facility] [address] [address] [address] Yandy Rodarte Basophils/100 WBC (Bld) 0.4 % Normal 0.2-2.0 [facility] Comment on above: Performed By: #### C BC #### [facility] [address] [address] [address] Yandy Rodarte EO # 0.5 103/ul Normal 0.0-0.7 [facility] Comment on above: Performed By: #### C BC #### [facility] [address] [address] [address] Yandy Rodarte Eosinophils/100 WBC (Bld) 4.1 % Normal 0.9-7.0 [facility] Comment on above: Performed By: #### C BC #### [facility] [address] [address] [address] Yandy Rodarte Erythrocyte distribution width (RBC) [Ratio] 14.0 % Normal 11.0-15.0 [facility] Comment on above: Performed By: #### C BC #### [facility] [address] [address] [address] Yandy Rodarte Hematocrit (Bld) [Volume fraction] 42.8 % Normal 36.0-48.0 [facility] Comment on above: Performed By: #### C BC #### [facility] [address] [address] [address] Yandy Rodarte Hemoglobin (Bld) [Mass/Vol] 13.6 g/dL Normal 12.0-16.0 [facility] Comment on above: Performed By: #### C BC #### [facility] [address] [address] [address] Yandy Rodarte IG # 0.04 10e3/ul Critically high 0.00-0.03 [facility] Comment on above: Performed By: #### C BC #### [facility] [address] [address] [address] Yandy Rodarte IG % 0.4 % Normal 0.0-0.5 [facility] Comment on above: Performed By: #### C BC #### [facility] [address] [place] [address] Dr. Yandy Rodarte LYMPH # 2.2 103/ul Normal 1.2-3.8 [facility] Comment on above: Performed By: #### C BC #### [facility] [address] [place] [address] Dr. Yandy Rodarte Lymphocytes/100 WBC (Bld) 20.0 % Critically low 20.5-60.0 [facility] Comment on above: Performed By: #### C BC #### [facility] [address] [place] [address] Dr. Yandy Rodarte MANUAL DIFF REQ NO Normal [facility] Comment on above: Performed By: #### C BC #### [facility] [address] [place] [address] Dr. Yandy Rodarte MCH (RBC) [Entitic mass] 28.2 pg Normal 26.7-34.0 [facility] Comment on above: Performed By: #### C BC #### [facility] [address] [place] [address] Dr. Yandy Rodarte MCHC (RBC) [Mass/Vol] 31.8 g/dL Normal 29.9-35.2 [facility] Comment on above: Performed By: #### C BC #### [facility] [address] [place] [address] Dr. Yandy Rodarte MCV (RBC) [Entitic vol] 88.8 fL Normal 81.0-99.0 [facility] Comment on above: Performed By: #### C BC #### [facility] [address] [place] [address] Dr. Yandy Rodarte MONO # 0.7 103/ul Normal 0.3-0.8 [facility] Comment on above: Performed By: #### C BC #### [facility] [address] [place] [address] Dr. Yandy Rodarte Monocytes/100 WBC (Bld) 6.3 % Normal 1.7-12.0 [facility] Comment on above: Performed By: #### C BC #### [facility] [address] [place] [address] Dr. Yandy Rodarte NEUT # 7.7 103/ul Critically high 1.4-6.[address] [facility] Comment on above: Performed By: #### C BC #### [facility] [address] [place] [address] Dr. Yandy Rodarte Neutrophils/100 WBC (Bld) 68.8 % Normal 43.0-75.0 [facility] Comment on above: Performed By: #### C BC #### [facility] [address] [place] [address] Dr. Yandy Rodarte Platelet mean volume (Bld) [Entitic vol] 9.8 fL Normal 9.5-13.5 [facility] Comment on above: Performed By: #### C BC #### [facility] [address] [place] [address] Dr. Yandy Rodarte PLT 259 103/ul Normal 150-[address] [facility] Comment on above: Performed By: #### C BC #### [facility] [address] [place] [address] Dr. Yandy Rodarte RBC 4.82 106/ul Normal 4.20-5.[address] [facility] Comment on above: Performed By: #### C BC #### [facility] [address] [place] [address] Dr. Yandy Rodarte WBC 11.2 103/ul Critically high 4.0-11.0 [facility] Comment on above: Performed By: #### C BC #### [facility] [address] [address] [address] Yandy Rodarte ECHOCARDIO M/2D COMPLETEon 0 03-02-2023 ECHOCARDIO M/2D COMPLETE Patient: AFIA GILL Exam Date: 03/02/2023 : 1950 Gender:F Ordering : MRS. JESSICA PRECIADO [employer] Admission #: [id number] Family : Order #: [id number] CLICK HERE TO VIEW EXAM ECHOCARDIOGRAM REPORT [...] Left Atrium LA Volume Index (2D A2C): 399112 mm3 Left Atrium Systolic Dimension: 3.80 cm [...] Gomez M.D. on 03/02/2023 at 19:[address] [facility] LIPID PROFILEon 03-02-2023 CHOL-HDL RATIO NORM SEE BELOW Normal [facility] Comment on above: Result Comment: 3.3 - 4.4 LOW RISK 4.4 - 7.1 AVERAGE RISK 7.1 - 11.0 MODERATE RISK >11.0 HIGH RISK Performed By: #### L JONATHAN, CMP #### [facility] [address] [place] [address] Dr. Yandy Rodarte Cholesterol [Mass/Vol] 203 mg/dL Critically high <=200 [facility] Comment on above: Performed By: #### L IPID, CMP #### [facility] [address] [address] [address] Yandy Rodarte Cholesterol in HDL [Mass/Vol] 35 mg/dL Critically low 40-60 [facility] Comment on above: Performed By: #### L IPID, CMP #### [facility] [address] [address] [address] Yandy Rodarte Cholesterol in LDL [Mass/Vol] 123.0 mg/dL Normal [facility] Comment on above: Performed By: #### L IPID, CMP #### [facility] [address] [place] [address] Dr. Yandy Rodarte Cholesterol.total/C holesterol in HDL [Mass ratio] 5.8 {ratio} Normal [facility] Comment on above: Performed By: #### L IPID, CMP #### [facility] [address] [address] [address] Yandy Rodarte HDL NORMAL > or = 60 mg/dl - LO W CARDIOVASCULAR RISK <40 mg/dl - HIGH CARDIOVASCULAR RISK Normal [facility] Comment on above: Performed By: #### L IPID, CMP #### [facility] [address] [place] [address] Dr. Yandy Rodarte LDL CALC NORMAL SEE BELOW Normal [facility] Comment on above: Result Comment: <100 mg/dl OPTIMAL 100 - 129 mg/dl NEAR OR ABOVE OPTIMAL 130 - 159 mg/dl BORDERLINE HIGH 160 - 189 mg/dl HIGH >190 mg/dl VERY HIGH Performed By: #### L IPID, CMP #### [facility] [address] [place] [address] Dr. Yandy Rodarte Triglyceride [Mass/Vol] 225 mg/dL Critically high <=150 [facility] Comment on above: Performed By: #### L IPID, CMP #### [facility] [address] [place] [address] Dr. Yandy Rodarte VLDL CALC 45.0 mg/dL Normal [facility] Comment on above: Performed By: #### L IPID, CMP #### [facility] [address] [place] [address] Dr. Yandy Rodarte PROF 14(COMP METB)on 023 Albumin [Mass/Vol] 3.5 g/dL Normal 3.4-5.0 [facility] Comment on above: Performed By: #### L IPID, CMP #### [facility] [address] [place] [address] Dr. Yandy Rodarte Albumin/Globulin [Mass ratio] 0.8 {ratio} Normal [facility] Comment on above: Performed By: #### L IPID, CMP #### [facility] [address] [place] [address] Dr. Yandy Rodarte ALP [Catalytic activity/Vol] 100 U/L Normal 46-116 [facility] Comment on above: Performed By: #### L IPID, CMP #### [facility] [address] [address] [address] Yandy Rodarte ALT [Catalytic activity/Vol] 22 U/L Normal 14-59 [facility] Comment on above: Performed By: #### L IPID, CMP #### [facility] [address] [address] [address] Yandy Rodarte Anion gap [Moles/Vol] 8.9 mmol/L Normal [facility] Comment on above: Performed By: #### L IPID, CMP #### [facility] [address] [address] [address] Yandy Rodarte AST [Catalytic activity/Vol] 17 U/L Normal 15-37 [facility] Comment on above: Performed By: #### L IPID, CMP #### [facility] [address] [place] [address] Dr. Yandy Rodarte Bilirubin [Mass/Vol] 0.4 mg/dL Normal 0.2-1.0 [facility] Comment on above: Performed By: #### L IPID, CMP #### [facility] [address] [place] [address] Dr. Yandy Rodarte Calcium [Mass/Vol] 9.2 mg/dL Normal 8.5-10.1 [facility] Comment on above: Performed By: #### L IPID, CMP #### [facility] [address] [place] [address] Dr. Yandy Rodarte Chloride [Moles/Vol] 104 mmol/L Normal 98-107 [facility] Comment on above: Performed By: #### L IPID, CMP #### [facility] [address] [address] [address] Yandy Rodarte CO2 [Moles/Vol] 32.6 mmol/L Critically high 21.0-32.0 [facility] Comment on above: Performed By: #### L IPID, CMP #### [facility] [address] [place] [address] Dr. Yandy Rodarte Creatinine [Mass/Vol] 0.81 mg/dL Normal 0.55-1.02 [facility] Comment on above: Performed By: #### L IPID, CMP #### [facility] [address] [place] [address] Dr. Yandy Rodarte EGFR-AF LIBYAN >60 Normal >=60 [facility] Comment on above: Performed By: #### L IPID, CMP #### [facility] [address] [place] [address] Dr. Yandy Rodarte EGFR-NON AF LIBYAN >60 Normal >=60 [facility] Comment on above: Performed By: #### L IPID, CMP #### [facility] [address] [place] [address] Dr. Yandy Rodarte Globulin (S) [Mass/Vol] 4.6 g/dL Normal [facility] Comment on above: Performed By: #### L IPID, CMP #### [facility] [address] [place] [address] Dr. Yandy Rodarte Glucose [Mass/Vol] 114 mg/dL Critically high 74-106 [facility] Comment on above: Performed By: #### L IPID, CMP #### [facility] [address] [place] [address] Dr. Yandy Rodarte Potassium [Moles/Vol] 4.5 mmol/L Normal 3.5-5.1 [facility] Comment on above: Performed By: #### L IPID, CMP #### [facility] [address] [place] [address] Dr. Yandy Rodarte Protein [Mass/Vol] 8.1 g/dL Normal 6.4-8.2 [facility] Comment on above: Performed By: #### L IPID, CMP #### [facility] [address] [place] [address] Dr. Yandy Rodarte Sodium [Moles/Vol] 141 mmol/L Normal 136-145 [facility] Comment on above: Performed By: #### L IPID, CMP #### [facility] [address] [place] [address] Dr. Yandy Rodarte Urea nitrogen [Mass/Vol] 18.0 mg/dL Normal 7.0-18.0 [facility] Comment on above: Performed By: #### L IPID, CMP #### [facility] [address] [place], [place] [address] Dr. Yandy Rodarte Urea nitrogen/Creatinine [Mass ratio] 22.2 mg/mg Normal [facility] Comment on above: Performed By: #### L IPID, CMP #### [facility] [address] [place], [place] [address] Dr. Yandy Rodarte Office Visiton 02-19-2023 Follow-up visit [id number] Maximo Gill 1950 F Date Provider Department Center 02/19/2023 [id number] PRECIADO [facility] Family History Problem Relation Age of Onset Heart attack Father Diabetes Father Hypertension Father Coronary artery disease Father Rheum arthritis Father Family Status - Relation Status Age at Father Level of Service:24044 [place] OFFICE/OUTPATIENT ESTABLISHED MOD MDM 30-39 MIN Reason for Visit and Comments: Follow-up [873225] - 6 month follow up Normal [facility] MG MAMM SCREEN MARIELENA W CADon 0 12-27-2022 MG MAMM SCREEN MARIELENA W CAD Patient: AFIA GILL. Exam Date: 12/27/2022 : 1950 Gender:F Ordering : DR YAHIR BROTHERS M.D. Admission #: [id number] Family : Order #: [id number] CLICK HERE TO VIEW EXAM RADIOLOGY REPORT [...] cervical cancer at age 37. LOCATION: [facility] BREAST COMPOSITION: Scattered areas fibroglandular [...] Pang MD on 12/28/2022 at 09:[address] [facility] CT SINUSES WO CONon 05-18-20 22 [...] YAYA ZULUAGA Date: 2022-05-18 08:38 Normal [facility] BASIC METABOLIC PANELon - Calcium [Mass/Vol] 9.6 mg/dL Normal 8.6-10.3 [facility] Comment on above: Order Comment: No: D o not add to previous draw Performed By: #### 5 0608 #### [facility] [address] [place] [address], [place] Chloride [Moles/Vol] 101 mmol/L Normal 98-107 [facility] Comment on above: Order Comment: No: D o not add to previous draw Performed By: #### 5 0608 #### [facility] [address] [place] [address], [place] CO2 [Moles/Vol] 29 mmol/L Normal 21-31 The [facility] Comment on above: Order Comment: No: D o not add to previous draw Performed By: #### 5 0608 #### [facility] [address] [place] [address], [facility] Creatinine [Mass/Vol] 0.71 mg/dL Normal 0.60-1.20 [facility] Comment on above: Order Comment: No: D o not add to previous draw Performed By: #### 5 0608 #### [facility] [address] [place] [address], [place] GFR/1.73 sq M predicted among blacks MDRD (S/P/Bld) [Vol rate/Area] mL/min/{1.73_m2} Normal >60 [facility] Comment on above: Order Comment: No: D o not add to previous draw Performed By: #### 5 0608 #### [facility] [address] [place] [address], [place] GFR/1.73 sq M predicted among non-blacks MDRD (S/P/Bld) [Vol rate/Area] mL/min/{1.73_m2} Normal >60 [facility] Comment on above: Order Comment: No: D o not add to previous draw Performed By: #### 5 0608 #### [facility] [address] [place] [address], [place] Glucose [Mass/Vol] 127 mg/dL High 70-100 [facility] Comment on above: Order Comment: No: D o not add to previous draw Performed By: #### 5 0608 #### [facility] [address] [place] [address], [facility] Potassium [Moles/Vol] 4.3 mmol/L Normal 3.5-5.1 [facility] Comment on above: Order Comment: No: D o not add to previous draw Performed By: #### 5 0608 #### [facility] [address] [place] [address], [place] Sodium [Moles/Vol] 137 mmol/L Normal 136-145 [facility] Comment on above: Order Comment: No: D o not add to previous draw Performed By: #### 5 0608 #### [facility] [address] [place] [address], [facility] Urea nitrogen [Mass/Vol] 20 mg/dL Normal 7-25 [facility] Comment on above: Order Comment: No: D o not add to previous draw Performed By: #### 5 0608 #### [facility] [address] [place] [address], [facility] CBC COMPLETE BLOOD COUNTon 0 - Erythrocyte distribution width (RBC) [Ratio] 14.6 % Normal 11.5-15.0 [facility] Comment on above: Order Comment: No: D o not add to previous draw Performed By: #### 5 0608 #### [facility] [address] [place] [address], [facility] Hematocrit (Bld) [Volume fraction] 44.6 % Normal 36.0-45.0 [facility] Comment on above: Order Comment: No: D o not add to previous draw Performed By: #### 5 0608 #### [facility] [address] [place] [id number], [facility] Hemoglobin (Bld) [Mass/Vol] 14.1 g/dL Normal 12.0-15.0 [facility] Comment on above: Order Comment: No: D o not add to previous draw Performed By: #### 5 0608 #### [facility] [address] MCH (RBC) [Entitic mass] 30.2 pg Normal 27.0-33.0 [facility] Comment on above: Order Comment: No: D o not add to previous draw Performed By: #### 5 0608 #### [facility] [address] [place] [id number], [facility] MCHC (RBC) [Mass/Vol] 31.6 g/dL Low 32.0-35.0 [facility] Comment on above: Order Comment: No: D o not add to previous draw Performed By: #### 5 0608 #### [facility] [address] [facility] [place] [address], [facility] MCV (RBC) [Entitic vol] 95.5 fL Normal 82.0-98.0 [facility] Comment on above: Order Comment: No: D o not add to previous draw Performed By: #### 5 0608 #### [facility] [address] [facility]. [address] Nucleated RBC/100 WBC (Bld) [Ratio] 0 % Normal 0-0 [facility] Comment on above: Order Comment: No: D o not add to previous draw Performed By: #### 5 0608 #### [facility] [address] [facility] [place] [address], [facility] PLAT CNT 250 10*3/uL Normal 150-400 [facility] Comment on above: Order Comment: No: D o not add to previous draw Performed By: #### 5 0608 #### [facility] [address] [facility] [address], [facility] RBC (Bld) [#/Vol] 4.67 10*6/uL Normal 3.80-5.00 [facility] Comment on above: Order Comment: No: D o not add to previous draw Performed By: #### 5 0608 #### [facility] [address] WBC (Bld) [#/Vol] 9.20 10*3/uL Normal 4.00-10.60 [facility] Comment on above: Order Comment: No: D o not add to previous draw Performed By: #### 5 0608 #### [facility] [address] POC GLUCOSE LABon 02-02-2019 Glucose [Mass/Vol] 146 mg/dL High 70-100 [facility] Comment on above: Performed By: #### 5 0608 #### [facility] [address] Glucose [Mass/Vol] 115 mg/dL High 70-100 [facility] Comment on above: Performed By: #### 5 0608 #### [facility] [address] PROTHROMBIN TIMEon 9 INR Coag (PPP) [Relative time] 1.22 {INR} High 0.91-1.16 [facility] Comment on above: Order Comment: No: [...] 1995;108:231S-246S. Performed By: #### 5 0608 #### [facility] [address] [place] [address], [facility] PT Coag (PPP) [Time] 15.4 s High 12.3-14.8 [facility] Comment on above: Order Comment: No: D o not add to previous draw Result Comment: ALL RESULTS MUST BE INTERPRETED WITH RESPECT TO BLOOD DRAWING ARTIFACT OR DILUTION ERROR OF ANTICOAGULANT AT THE TIME OF SAMPLING. Performed By: #### 5 0608 #### [facility] [address] [facility] [place] [address], [facility] POC GLUCOSE LABon 02-01-2019 Glucose [Mass/Vol] 152 mg/dL High 70-100 [facility] Comment on above: Performed By: #### 5 0608 #### [facility] [address] [facility] [place] [address], [facility] Glucose [Mass/Vol] 118 mg/dL High 70-100 [facility] Comment on above: Performed By: #### 5 0608 #### [facility] [address] [facility] [place] [address], [facility] Glucose [Mass/Vol] 197 mg/dL High 70-100 [facility] Comment on above: Performed By: #### 5 0608 #### [facility] [address] [facility] [place] [place] [address], [facility] Glucose [Mass/Vol] 123 mg/dL High 70-100 [facility] Comment on above: Performed By: #### 5 0608 #### [facility] [address] [facility] [place] [address], [facility] PROTHROMBIN TIMEon 9 INR Coag (PPP) [Relative time] 1.24 {INR} High 0.91-1.16 [facility] Comment on above: Order Comment: Unkno [...] 1995;108:231S-246S. Performed By: #### 0 0071 #### [facility] [address] PT Coag (PPP) [Time] 15.6 s High 12.3-14.8 [facility] Comment on above: Order Comment: Unkno wn Result Comment: ALL RESULTS MUST BE INTERPRETED WITH RESPECT TO BLOOD DRAWING ARTIFACT OR DILUTION ERROR OF ANTICOAGULANT AT THE TIME OF SAMPLING. Performed By: #### 0 0071 #### [facility] [address] [facility]. [address] BASIC METABOLIC PANELon 01-20 Calcium [Mass/Vol] 9.5 mg/dL Normal 8.6-10.3 [facility] Comment on above: Order Comment: No: D o not add to previous draw Performed By: #### 0 0071 #### [facility] [address] Chloride [Moles/Vol] 98 mmol/L Normal 98-107 [facility] Comment on above: Order Comment: No: D o not add to previous draw Performed By: #### 0 0071 #### [facility] [address] [place] [address], [place] CO2 [Moles/Vol] 29 mmol/L Normal 21-31 The [facility] Comment on above: Order Comment: No: D o not add to previous draw Performed By: #### 0 0071 #### [facility] [address] [place] [address], [place] Creatinine [Mass/Vol] 0.72 mg/dL Normal 0.60-1.20 [facility] Comment on above: Order Comment: No: D o not add to previous draw Performed By: #### 0 0071 #### [facility] [address] [place] [address], [place] GFR/1.73 sq M predicted among blacks MDRD (S/P/Bld) [Vol rate/Area] mL/min/{1.73_m2} Normal >60 [facility] Comment on above: Order Comment: No: D o not add to previous draw Performed By: #### 0 0071 #### [facility] [address] [place] [address], [place] GFR/1.73 sq M predicted among non-blacks MDRD (S/P/Bld) [Vol rate/Area] mL/min/{1.73_m2} Normal >60 [facility] Comment on above: Order Comment: No: D o not add to previous draw Performed By: #### 0 0071 #### [facility] [address] [place] [address], [place] Glucose [Mass/Vol] 120 mg/dL High 70-100 [facility] Comment on above: Order Comment: No: D o not add to previous draw Performed By: #### 0 0071 #### [facility] [address] [place] [address], [place] Potassium [Moles/Vol] 3.5 mmol/L Normal 3.5-5.1 [facility] Comment on above: Order Comment: No: D o not add to previous draw Performed By: #### 0 0071 #### [facility] [address] [place] [id number], [facility] Sodium [Moles/Vol] 138 mmol/L Normal 136-145 [facility] Comment on above: Order Comment: No: D o not add to previous draw Performed By: #### 0 0071 #### [facility] [address] [place] [address], [facility] Urea nitrogen [Mass/Vol] 20 mg/dL Normal 7-25 [facility] Comment on above: Order Comment: No: D o not add to previous draw Performed By: #### 0 0071 #### [facility] [address] [place] [address], [facility] CBC COMPLETE BLOOD COUNTon - Erythrocyte distribution width (RBC) [Ratio] 14.6 % Normal 11.5-15.0 [facility] Comment on above: Order Comment: No: D o not add to previous draw Performed By: #### 0 0071 #### [facility] [address] [place] [address], [facility] Hematocrit (Bld) [Volume fraction] 42.7 % Normal 36.0-45.0 [facility] Comment on above: Order Comment: No: D o not add to previous draw Performed By: #### 0 0071 #### [facility] [address] [place] [address], [facility] Hemoglobin (Bld) [Mass/Vol] 13.8 g/dL Normal 12.0-15.0 [facility] Comment on above: Order Comment: No: D o not add to previous draw Performed By: #### 0 0071 #### [facility] [address] [place] [id number], [facility] MCH (RBC) [Entitic mass] 31.0 pg Normal 27.0-33.0 [facility] Comment on above: Order Comment: No: D o not add to previous draw Performed By: #### 0 0071 #### [facility] [address] [place] [address], [facility] MCHC (RBC) [Mass/Vol] 32.3 g/dL Normal 32.0-35.0 [facility] Comment on above: Order Comment: No: D o not add to previous draw Performed By: #### 0 0071 #### [facility] [address] [facility] [place] [address], [facility] MCV (RBC) [Entitic vol] 96.0 fL Normal 82.0-98.0 [facility] Comment on above: Order Comment: No: D o not add to previous draw Performed By: #### 0 0071 #### [facility] [address] [facility] Nucleated RBC/100 WBC (Bld) [Ratio] 0 % Normal 0-0 [facility] Comment on above: Order Comment: No: D o not add to previous draw Performed By: #### 0 0071 #### [facility] [address] [place] [address], [facility] PLAT CNT 217 10*3/uL Normal 150-400 [facility] Comment on above: Order Comment: No: D o not add to previous draw Performed By: #### 0 0071 #### [facility] [address] [facility] [place] [address], [facility] RBC (Bld) [#/Vol] 4.45 10*6/uL Normal 3.80-5.00 [facility] Comment on above: Order Comment: No: D o not add to previous draw Performed By: #### 0 0071 #### [facility] [address] [place] [address], [facility] WBC (Bld) [#/Vol] 9.17 10*3/uL Normal 4.00-10.60 [facility] Comment on above: Order Comment: No: D o not add to previous draw Performed By: #### 0 0071 #### [facility] [address] [facility] [address], [facility] POC GLUCOSE LABon 01-31-2019 Glucose [Mass/Vol] 116 mg/dL High 70-100 [facility]: Performed By: #### 0 0071 #### [facility] [address] [facility] [place] [address], [facility] Glucose [Mass/Vol] 122 mg/dL High 70-100 [facility] Comment on above: Performed By: #### 0 0071 #### [facility] [address] [facility] [place] [address], [facility] Glucose [Mass/Vol] 191 mg/dL High 70-100 [facility] Comment on above: Performed By: #### 0 0071 #### [facility] [address] [facility] [place] [address], [facility] Glucose [Mass/Vol] 131 mg/dL High 70-100 [facility] Comment on above: Performed By: #### 0 0071 #### [facility] [address] [place] [address], [facility] PROTHROMBIN TIMEon 9 INR Coag (PPP) [Relative time] 1.24 {INR} High 0.91-1.16 [facility] Comment on above: Order Comment: Unkno [...] 1995;108:231S-246S. Performed By: #### 0 0071 #### [facility] [address] [place] [address], [facility] PT Coag (PPP) [Time] 15.6 s High 12.3-14.8 [facility] Comment on above: Order Comment: Unkno wn Result Comment: ALL RESULTS MUST BE INTERPRETED WITH RESPECT TO BLOOD DRAWING ARTIFACT OR DILUTION ERROR OF ANTICOAGULANT AT THE TIME OF SAMPLING. Performed By: #### 0 0071 #### [facility] [address] BASIC METABOLIC PANELon 01-20 Calcium [Mass/Vol] 10.0 mg/dL Normal 8.6-10.3 [facility] Comment on above: Order Comment: No: D o not add to previous draw Performed By: #### 0 0071 #### [facility] [address] [place] [address], [facility] Chloride [Moles/Vol] 99 mmol/L Normal 98-107 [facility] Comment on above: Order Comment: No: D o not add to previous draw Performed By: #### 0 0071 #### [facility] [address] [place] [id number], [facility] CO2 [Moles/Vol] 30 mmol/L Normal 21-31 The [facility] Comment on above: Order Comment: No: D o not add to previous draw Performed By: #### 0 0071 #### [facility] [address] [place] [address], [facility] Creatinine [Mass/Vol] 0.74 mg/dL Normal 0.60-1.20 [facility] Comment on above: Order Comment: No: D o not add to previous draw Performed By: #### 0 0071 #### [facility] [address] [place] [address], [place] GFR/1.73 sq M predicted among blacks MDRD (S/P/Bld) [Vol rate/Area] mL/min/{1.73_m2} Normal >60 [facility] Comment on above: Order Comment: No: D o not add to previous draw Performed By: #### 0 0071 #### [facility] [address] [place] [address], [place] GFR/1.73 sq M predicted among non-blacks MDRD (S/P/Bld) [Vol rate/Area] mL/min/{1.73_m2} Normal >60 [facility] Comment on above: Order Comment: No: D o not add to previous draw Performed By: #### 0 0071 #### [facility] [address] [place] [address], [place] Glucose [Mass/Vol] 112 mg/dL High 70-100 [facility] Comment on above: Order Comment: No: D o not add to previous draw Performed By: #### 0 0071 #### [facility] [address] [place] [address], [place] Potassium [Moles/Vol] 4.3 mmol/L Normal 3.5-5.1 [facility] Comment on above: Order Comment: No: D o not add to previous draw Performed By: #### 0 0071 #### [facility] [address] [place] [address], [place] Sodium [Moles/Vol] 137 mmol/L Normal 136-145 [facility] Comment on above: Order Comment: No: D o not add to previous draw Performed By: #### 0 0071 #### [facility] [address] [place] [address], [place] Urea nitrogen [Mass/Vol] 20 mg/dL Normal 7-25 [facility] Comment on above: Order Comment: No: D o not add to previous draw Performed By: #### 0 0071 #### [facility] [address] [place] [address], [place] Calcium [Mass/Vol] 9.3 mg/dL Normal 8.6-10.3 [facility] Comment on above: Order Comment: No: D o not add to previous draw Performed By: #### 5 6101 #### [facility] [address] [place] [address], [place] Chloride [Moles/Vol] 103 mmol/L Normal 98-107 [facility] Comment on above: Order Comment: No: D o not add to previous draw Performed By: #### 5 6101 #### [facility] [address] [place] [address], [place] CO2 [Moles/Vol] 28 mmol/L Normal 21-31 [facility] Comment on above: Order Comment: No: D o not add to previous draw Performed By: #### 5 6101 #### [facility] [address] [place] [address], [place] Creatinine [Mass/Vol] 0.62 mg/dL Normal 0.60-1.20 [facility] Comment on above: Order Comment: No: D o not add to previous draw Performed By: #### 5 6101 #### [facility] [address] [place] [address], [place] GFR/1.73 sq M predicted among blacks MDRD (S/P/Bld) [Vol rate/Area] mL/min/{1.73_m2} Normal >60 [facility] Comment on above: Order Comment: No: D o not add to previous draw Performed By: #### 5 6101 #### [facility] [address] [place] [address], [facility] GFR/1.73 sq M predicted among non-blacks MDRD (S/P/Bld) [Vol rate/Area] mL/min/{1.73_m2} Normal >60 [facility] Comment on above: Order Comment: No: D o not add to previous draw Performed By: #### 5 6101 #### [facility] [address] [place] [address], [place] Glucose [Mass/Vol] 117 mg/dL High 70-100 [facility] Comment on above: Order Comment: No: D o not add to previous draw Performed By: #### 5 6101 #### [facility] [address] [place] [address], [place] Potassium [Moles/Vol] 3.5 mmol/L Normal 3.5-5.1 [facility] Comment on above: Order Comment: No: D o not add to previous draw Performed By: #### 5 6101 #### [facility] [address] [place] [address], [place] Sodium [Moles/Vol] 140 mmol/L Normal 136-145 [facility] Comment on above: Order Comment: No: D o not add to previous draw Performed By: #### 5 6101 #### [facility] [address] [place] [address], [place] Urea nitrogen [Mass/Vol] 15 mg/dL Normal 7-25 [facility] Comment on above: Order Comment: No: D o not add to previous draw Performed By: #### 5 6101 #### [facility] [address] [place] [address], [place] CBC COMPLETE BLOOD COUNTon 0 - Erythrocyte distribution width (RBC) [Ratio] 14.6 % Normal 11.5-15.0 [facility] Comment on above: Order Comment: No: D o not add to previous draw Performed By: #### 5 6101 #### [facility] [address] [place] [address], [facility] Hematocrit (Bld) [Volume fraction] 42.1 % Normal 36.0-45.0 [facility] Comment on above: Order Comment: No: D o not add to previous draw Performed By: #### 5 6101 #### [facility] [address] [place] [address], [facility] Hemoglobin (Bld) [Mass/Vol] 13.4 g/dL Normal 12.0-15.0 [facility] Comment on above: Order Comment: No: D o not add to previous draw Performed By: #### 5 6101 #### [facility] [address] [place] [address], [facility] MCH (RBC) [Entitic mass] 30.6 pg Normal 27.0-33.0 [facility] Comment on above: Order Comment: No: D o not add to previous draw Performed By: #### 5 6101 #### [facility] [address] [place] [address], [facility] MCHC (RBC) [Mass/Vol] 31.8 g/dL Low 32.0-35.0 [facility] Comment on above: Order Comment: No: D o not add to previous draw Performed By: #### 5 6101 #### [facility] [address] [place] [address], [facility] MCV (RBC) [Entitic vol] 96.1 fL Normal 82.0-98.0 [facility] Comment on above: Order Comment: No: D o not add to previous draw Performed By: #### 5 6101 #### [facility] [address] [place] [id number], [facility] Nucleated RBC/100 WBC (Bld) [Ratio] 0 % Normal 0-0 [facility] Comment on above: Order Comment: No: D o not add to previous draw Performed By: #### 5 6101 #### [facility] [address] PLAT CNT 215 10*3/uL Normal 150-400 [facility] Comment on above: Order Comment: No: D o not add to previous draw Performed By: #### 5 6101 #### [facility] [address] RBC (Bld) [#/Vol] 4.38 10*6/uL Normal 3.80-5.00 [facility] Comment on above: Order Comment: No: D o not add to previous draw Performed By: #### 5 6101 #### [facility] [address] WBC (Bld) [#/Vol] 8.75 10*3/uL Normal 4.00-10.60 [facility] Comment on above: Order Comment: No: D o not add to previous draw Performed By: #### 5 6101 #### [address] Cardiovascular Lab Reporton 01-30-2019 Cardiovascular Lab Report [facility] Patient Name: Afia Gill [facility] Kassy MR #: [id number] Department of Physician: Raman Allen Tayler Gomez M.D. Division of Service Date: 01/29/2019 Cardiology Birthdate: 1950 Adult Cardiovascular Room #: 3AB [id number] [place] [id number] Cardiovascular Laboratory Report INDICATION: The patient is [...] signed informed consent. She was brought to ear mold laboratory technician in a fasting state. The right neck area was prepped and draped in usual fashion. Using ultrasound guidance and micropuncture technique, the internal jugular vein was accessed. A 6-Malawian x 11 cm sheath was placed. A 6-Malawian Caldera catheter was used for right heart catheterization with measurement of pressures and calculation of cardiac output using the estimated Nader method. The Caldera catheter was removed. Using ultrasound guidance and micropuncture technique, the right radial artery was accessed. A 6-Malawian x 11 cm Hydrophilic sheath was advanced. Verapamil was given through the sheath and a bolus of bivalirudin was given intravenously as the patient has prior history of heparin-induced thrombocytopenia. Note that, the care was taken to avoid any use of heparin during the procedure. Bilateral selective coronary angiography was then performed using 6-Malawian JL3.5 and JR5 diagnostic catheters. Catheters were removed. A 6-Malawian angled pigtail catheter was advanced over the [...] with 30% left ventricular ejection fraction. 3. [id number] mitral regurgitation. 4. Severely elevated filling pressures. [...] Gomez M.D. Date Trans: 01/30/2019 07:50 Kassy/ivan [id number] cc: Yahir Brothers M.D. [address] [address] Yahir Mijares M.D. [address] [address] Normal [facility] MAGNESIUM BLOODon 01-30-2019 Magnesium [Mass/Vol] 2.2 mg/dL Normal 1.9-2.7 [facility] Comment on above: Order Comment: No: D o not add to previous draw Performed By: #### 0 0071 #### [facility] [address] [facility] [address], [facility] Magnesium [Mass/Vol] 2.2 mg/dL Normal 1.9-2.7 [facility] Comment on above: Order Comment: No: D o not add to previous draw Performed By: #### 5 6101 #### [facility] [address] [place] [address], [facility] POC GLUCOSE LABon 01-30-2019 Glucose [Mass/Vol] 107 mg/dL High 70-100 [facility] Comment on above: Performed By: #### 5 6101 #### [facility] [address] [place] [address], [facility] Glucose [Mass/Vol] 125 mg/dL High 70-100 [facility] Comment on above: Performed By: #### 5 6101 #### [facility] [address] [place] [address], [place] Glucose [Mass/Vol] 137 mg/dL High 70-100 [facility] Comment on above: Performed By: #### 5 6101 #### [facility] [address] [place] [address], [facility] Glucose [Mass/Vol] 114 mg/dL High 70-100 [facility] Comment on above: Performed By: #### 5 6101 #### [facility] [address] [place] [address], [facility] PROTHROMBIN TIMEon 9 INR Coag (PPP) [Relative time] 1.23 {INR} High 0.91-1.16 [facility] Comment on above: Order Comment: No: [...] 1995;108:231S-246S. Performed By: #### 5 6101 #### [facility] [address] PT Coag (PPP) [Time] 15.5 s High 12.3-14.8 [facility] Comment on above: Order Comment: No: D o not add to previous draw Result Comment: ALL RESULTS MUST BE INTERPRETED WITH RESPECT TO BLOOD DRAWING ARTIFACT OR DILUTION ERROR OF ANTICOAGULANT AT THE TIME OF SAMPLING. Performed By: #### 5 [id number] #### [facility] [address] TSH3on 01-30-2019 TSH 3RD GENERATION 1.24 uIU/mL Normal 0.34-5.60 [facility] Comment on above: Order Comment: No: D o not add to previous draw Performed By: #### 5 6101 #### [facility] [address] [facility]. [address] CBC COMPLETE BLOOD COUNTon 0 01-29-2019 Erythrocyte distribution width (RBC) [Ratio] 14.7 % Normal 11.5-15.0 [facility] Comment on above: Order Comment: No: D o not add to previous draw Performed By: #### 5 0608 #### [facility] [address] Hematocrit (Bld) [Volume fraction] 43.4 % Normal 36.0-45.0 [facility] Comment on above: Order Comment: No: D o not add to previous draw Performed By: #### 5 0608 #### [facility] [address] Hemoglobin (Bld) [Mass/Vol] 13.8 g/dL Normal 12.0-15.0 [facility] Comment on above: Order Comment: No: D o not add to previous draw Performed By: #### 5 0608 #### [facility] [address] [facility] [place] [address], [facility] MCH (RBC) [Entitic mass] 30.3 pg Normal 27.0-33.0 [facility] Comment on above: Order Comment: No: D o not add to previous draw Performed By: #### 5 0608 #### [facility] [address] [place] [address], [facility] MCHC (RBC) [Mass/Vol] 31.8 g/dL Low 32.0-35.0 [facility] Comment on above: Order Comment: No: D o not add to previous draw Performed By: #### 5 0608 #### [facility] [address] [facility] [place] [address], [facility] MCV (RBC) [Entitic vol] 95.2 fL Normal 82.0-98.0 [facility] Comment on above: Order Comment: No: D o not add to previous draw Performed By: #### 5 0608 #### [facility] [address] [facility]. [address] Nucleated RBC/100 WBC (Bld) [Ratio] 0 % Normal 0-0 [facility] Comment on above: Order Comment: No: D o not add to previous draw Performed By: #### 5 0608 #### [facility] [address] [place] [address], [facility] PLAT CNT 240 10*3/uL Normal 150-400 [facility] Comment on above: Order Comment: No: D o not add to previous draw Performed By: #### 5 0608 #### [facility] [address] [place] [address], [facility] RBC (Bld) [#/Vol] 4.56 10*6/uL Normal 3.80-5.00 [facility] Comment on above: Order Comment: No: D o not add to previous draw Performed By: #### 5 0608 #### [facility] [address] [place] [address], [facility] WBC (Bld) [#/Vol] 9.28 10*3/uL Normal 4.00-10.60 [facility] Comment on above: Order Comment: No: D o not add to previous draw Performed By: #### 5 0608 #### [facility] [address] [place] [address], [place] COMP METABOLIC PANELon 01-29 Albumin [Mass/Vol] 4.1 g/dL Normal 3.5-5.7 [facility] Comment on above: Order Comment: No: D o not add to previous draw Performed By: #### 1 0070, 30037, 62411 #### [facility] [address] [place] [address], [place] ALKALINE PHOSPH 50 IU/L Normal 34-104 The [facility] Comment on above: Order Comment: No: D o not add to previous draw Performed By: #### 1 0070, 09426, 07714 #### [facility] [address] [place] [address], [place] ALT [Catalytic activity/Vol] 14 U/L Normal 7-52 [facility] Comment on above: Order Comment: No: D o not add to previous draw Performed By: #### 1 0070, 06766, 48174 #### [facility] [address] [place] [address], [place] AST [Catalytic activity/Vol] 15 U/L Normal 13-39 [facility] Comment on above: Order Comment: No: D o not add to previous draw Performed By: #### 1 0070, 29713, 29885 #### [facility] [address] [place] [address], [place] Bilirubin [Mass/Vol] 0.8 mg/dL Normal 0.3-1.0 [facility] Comment on above: Order Comment: No: D o not add to previous draw Performed By: #### 1 0, 47091, 62245 #### [facility] [address] [place] [address], [place] Calcium [Mass/Vol] 9.6 mg/dL Normal 8.6-10.3 [facility] Comment on above: Order Comment: No: D o not add to previous draw Performed By: #### 1 0070, 98355, 80789 #### [facility] [address] [place] [address], [place] Chloride [Moles/Vol] 103 mmol/L Normal 98-107 [facility] Comment on above: Order Comment: No: D o not add to previous draw Performed By: #### 1 0, , 34246 #### [facility] [address] [place] [address], [place] CO2 [Moles/Vol] 30 mmol/L Normal 21-31 [facility] Comment on above: Order Comment: No: D o not add to previous draw Performed By: #### 1 0, 54382, 78091 #### [facility] [address] [place] [address], [place] Creatinine [Mass/Vol] 0.71 mg/dL Normal 0.60-1.20 [facility] Comment on above: Order Comment: No: D o not add to previous draw Performed By: #### 1 0, 43293, 70215 #### [facility] [address] [place] [address], [place] GFR/1.73 sq M predicted among blacks MDRD (S/P/Bld) [Vol rate/Area] mL/min/{1.73_m2} Normal >60 [facility] Comment on above: Order Comment: No: D o not add to previous draw Performed By: #### 1 0, , 79247 #### [facility] [address] [place] [address], [place] GFR/1.73 sq M predicted among non-blacks MDRD (S/P/Bld) [Vol rate/Area] mL/min/{1.73_m2} Normal >60 [facility] Comment on above: Order Comment: No: D o not add to previous draw Performed By: #### 1 0, , 35137 #### [facility] [address] [place] [address], [place] Glucose [Mass/Vol] 116 mg/dL High 70-100 [facility] Comment on above: Order Comment: No: D o not add to previous draw Performed By: #### 1 69, , 67017 #### [facility] [address] [place] [address], [place] Potassium [Moles/Vol] 3.9 mmol/L Normal 3.5-5.1 [facility] Comment on above: Order Comment: No: D o not add to previous draw Performed By: #### 1 0, , 13344 #### [facility] [address] [place] [address], [place] Protein [Mass/Vol] 7.6 g/dL Normal 6.0-8.3 [facility] Comment on above: Order Comment: No: D o not add to previous draw Performed By: #### 1 0, , 43826 #### [facility] [address] [place] [address], [place] Sodium [Moles/Vol] 140 mmol/L Normal 136-145 [facility] Comment on above: Order Comment: No: D o not add to previous draw Performed By: #### 1 69, , 66854 #### [facility] [address] [place] [address], [place] Urea nitrogen [Mass/Vol] 18 mg/dL Normal 7-25 [facility] Comment on above: Order Comment: No: D o not add to previous draw Performed By: #### 1 0070, 91140, 35836 #### [facility] [address] [place] [address], [facility] HEMOGLOBIN A1Con 01-29-2019 HbA1c (Bld) [Mass fraction] 6.1 % High 4.0-6.0 [facility] Comment on above: Order Comment: Yes: Add to Previous draw if able Performed By: #### 5 6101 #### [facility] [address] [place] [address], [facility] HbA1c (Bld) [Mass fraction] 128 mg/dL High 70-126 [facility] Comment on above: Order Comment: Yes: Add to Previous draw if able Performed By: #### 5 6101 #### [facility] [address] [place] [address], [facility] LIPID PROFILEon 01-29-2019 Cholesterol [Mass/Vol] 130 mg/dL Normal 120-200 [facility] Comment on above: Result Comment: CHOL ESTEROL REFERENCE RANGE: 20 YEARS AND OLDER CARDIOVASCULAR RISK Less than 200 mg/dl Low Risk 200 to 239 mg/dl Borderline Risk 240 mg/dl and greater High Risk Performed By: #### 1 0, 26309, 62465 #### [facility] [address] [place] [address], [facility] Cholesterol in HDL [Mass/Vol] 31 mg/dL Normal 23-92 [facility] Comment on above: Result Comment: Slig ht variation in normal range could be due to gender and/or age. HDL CHOLESTEROL REFERENCE RANGE: 20 years and older Cardiovascular Risk > or =60 mg/dL Desirable 40 TO 59 mg/dL Low Risk <40 mg/dL High Risk Performed By: #### 1 0070, 08321, 87457 #### [facility] [address] [place] [address], [facility] Cholesterol in LDL [Mass/Vol] 67 mg/dL Normal 0-130 [facility] Comment on above: Result Comment: LDL IS A CALCULATION LDL IS ONLY VALID IF THE TRIG IS LESS THAN 400. Performed By: #### 1 0, 37114, 06938 #### [facility] [address] [place] [address], [facility] Cholesterol.total/C holesterol in HDL [Mass ratio] 4.2 {ratio} Normal .0-4.5 [facility] Comment on above: Performed By: #### 1 0, , 78229 #### [facility] [address] [place] [address], [facility] NON-HDL CHOLESTEROL 99 mg/dL Normal [facility] Comment on above: Performed By: #### 1 0, , 38110 #### [facility] [address] [place] [address], [facility] Triglyceride [Mass/Vol] 158 mg/dL High 40-149 [facility] Comment on above: Result Comment: TRIG LYCERIDE REFERENCE RANGE: 20 YEARS AND OLDER CARDIOVASCULAR RISK LESS THAN 150 mg/dl LOW RISK 150 TO 199 mg/dl BORDERLINE RISK 200 mg/dl AND GREATER HIGH RISK Performed By: #### 1 69, 39690, 40339 #### [facility] [address] [place] [address], [facility] VLDL CHOL 32 mg/dL Normal 0-40 [facility] Comment on above: Performed By: #### 1 69, 47765, 11866 #### [facility] [address] [place] [address], [place] MAGNESIUM BLOODon 01-29-2019 Magnesium [Mass/Vol] 2.2 mg/dL Normal 1.9-2.7 [facility] Comment on above: Order Comment: No: D o not add to previous draw Performed By: #### 1 69, 95851, 42014 #### [facility] [address] [place] [address], [facility] POC GLUCOSE LABon 01-29-2019 Glucose [Mass/Vol] 102 mg/dL High 70-100 [facility] Comment on above: Performed By: #### 8 5499 #### [facility] [address] [place] [address], [facility] Glucose [Mass/Vol] 131 mg/dL High 70-100 [facility] Comment on above: Performed By: #### 8 5499 #### [facility] [address] [facility] [place] [address], [facility] PROTHROMBIN TIMEon 9 INR Coag (PPP) [Relative time] 1.39 {INR} High 0.91-1.16 [facility] Comment on above: Order Comment: Yes: [...] 1995;108:231S-246S. Performed By: #### 5 6101 #### [facility] [address] [place] [address], [facility] PT Coag (PPP) [Time] 17.1 s High 12.3-14.8 [facility] Comment on above: Order Comment: Yes: Add to Previous draw if able Result Comment: ALL RESULTS MUST BE INTERPRETED WITH RESPECT TO BLOOD DRAWING ARTIFACT OR DILUTION ERROR OF ANTICOAGULANT AT THE TIME OF SAMPLING. Performed By: #### 5 6101 #### [facility] [address] [place] [address], [facility] BASIC METABOLIC PANELon 04-0 Calcium [Mass/Vol] 10.1 mg/dL Normal 8.6-10.3 [facility] Comment on above: Performed By: #### 0 0071 #### [facility] [address] [place] [address], [place] Chloride [Moles/Vol] 100 mmol/L Normal 98-107 [facility] Comment on above: Performed By: #### 0 0071 #### [facility] [address] [place] [address], [place] CO2 [Moles/Vol] 30 mmol/L Normal 21-31 [facility] Comment on above: Performed By: #### 0 0071 #### [facility] [address] [place] [address], [facility] Creatinine [Mass/Vol] 0.71 mg/dL Normal 0.60-1.20 [facility] Comment on above: Performed By: #### 0 0071 #### [facility] [address] [place] [address], [place] GFR/1.73 sq M predicted among blacks MDRD (S/P/Bld) [Vol rate/Area] mL/min/{1.73_m2} Normal >60 [facility] Comment on above: Performed By: #### 0 0071 #### [facility] [address] [place] [address], [facility] GFR/1.73 sq M predicted among non-blacks MDRD (S/P/Bld) [Vol rate/Area] mL/min/{1.73_m2} Normal >60 [facility] Comment on above: Performed By: #### 0 0071 #### [facility] [address] [place] [address], [facility] Glucose [Mass/Vol] 93 mg/dL Normal 70-100 [facility] Comment on above: Performed By: #### 0 0071 #### [facility] [address] [place] [address], [facility] Potassium [Moles/Vol] 3.7 mmol/L Normal 3.5-5.1 [facility] Comment on above: Performed By: #### 0 0071 #### [facility] [address] [place] [address], [facility] Sodium [Moles/Vol] 139 mmol/L Normal 136-145 [facility] Comment on above: Performed By: #### 0 0071 #### [facility] [address] [place] [address], [facility] Urea nitrogen [Mass/Vol] 16 mg/dL Normal 7-25 [facility] Comment on above: Performed By: #### 0 0071 #### [facility] [address] [place] [address], [facility] CBC COMPLETE BLOOD COUNTon 0 01-22-2019 Erythrocyte distribution width (RBC) [Ratio] 14.9 % Normal 11.5-15.0 [facility] Comment on above: Performed By: #### 5 0608 #### [facility] [address] [place] [address], [facility] Hematocrit (Bld) [Volume fraction] 43.0 % Normal 36.0-45.0 [facility] Comment on above: Performed By: #### 5 0608 #### [facility] [address] [place] [address], [facility] Hemoglobin (Bld) [Mass/Vol] 13.7 g/dL Normal 12.0-15.0 [facility] Comment on above: Performed By: #### 5 0608 #### [facility] [address] [facility] [place] [address], [facility] MCH (RBC) [Entitic mass] 30.0 pg Normal 27.0-33.0 [facility] Comment on above: Performed By: #### 5 0608 #### [facility] [address] [facility] [place] [address], [facility] MCHC (RBC) [Mass/Vol] 31.9 g/dL Low 32.0-35.0 [facility] Comment on above: Performed By: #### 5 0608 #### [facility] [address] [place] [address], [facility] MCV (RBC) [Entitic vol] 94.3 fL Normal 82.0-98.0 [facility] Comment on above: Performed By: #### 5 0608 #### [facility] [address] [facility]. [address] Nucleated RBC/100 WBC (Bld) [Ratio] 0 % Normal 0-0 [facility] Comment on above: Performed By: #### 5 0608 #### [facility] [address] [place] [address], [facility] PLAT CNT 270 10*3/uL Normal 150-400 [facility] Comment on above: Performed By: #### 5 0608 #### [facility] [address] [facility] [place] [address], [facility] RBC (Bld) [#/Vol] 4.56 10*6/uL Normal 3.80-5.00 [facility] Comment on above: Performed By: #### 5 0608 #### [facility] [address] [place] [address], [facility] WBC (Bld) [#/Vol] 9.44 10*3/uL Normal 4.00-10.60 [facility] Comment on above: Performed By: #### 5 0608 #### [facility] [address] PROTHROMBIN TIMEon INR Coag (PPP) [Relative time] 1.85 {INR} High 0.91-1.16 [facility] Comment on above: Result Comment: ACCC [...] 1995;108:231S-246S. Performed By: #### 5 6101 #### [facility] [address] PT Coag (PPP) [Time] 21.4 s High 12.3-14.8 [facility] Comment on above: Result Comment: ALL RESULTS MUST BE INTERPRETED WITH RESPECT TO BLOOD DRAWING ARTIFACT OR DILUTION ERROR OF ANTICOAGULANT AT THE TIME OF SAMPLING. Performed By: #### 5 6101 #### [facility] [address] [place] [address], [facility] Encounters Encounter Date Encounter Type Care Provider Facility Start: 01-11-2024 End: 01-11-2024 ambulatory ANITA MONTES [facility] Start: 12-31-2023 End: 12-31-2023 ambulatory YAHRI BROTHERS [facility] Start: 12-26-2023 End: 12-29-2023 Evaluation and management of inpatient COLIN KEITH [facility] Start: 12-25-2023 End: 12-29-2023 Evaluation and management of inpatient BIJAL BARNHART [facility] Start: 12-21-2023 End: 12-29-2023 Orders Only Korina Oliver MD Work Phone: [facility] Start: 12-20-2023 End: 12-29-2023 Emergency department patient visit [facility] Start: 12-20-2023 End: 12-29-2023 Emergency department patient visit DANAE BRITTON [facility] Start: 12-20-2023 End: 12-28-2023 Evaluation and management of inpatient [facility] Start: 11-01-2023 End: 11-01-2023 ambulatory EBER JOSHUA [facility] Start: 10-31-2023 End: 10-31-2023 ambulatory YAHIR BROTHERS Not Available Start: 09-05-2023 End: 09-05-2023 ambulatory YAHIR BROTHERS Not Available Start: 07-07-2023 End: 07-10-2023 ambulatory YAHIR BROTHERS Not Available Start: 05-23-2023 End: 05-23-2023 ambulatory RAMAN GOMEZ [facility] Start: 03-02-2023 End: 03-03-[address] DOCTOR LOYOLA Facility:[facility] Start: 02-19-2023 End: 02-19-2023 [facility] Start: 12-27-2022 End: 12-28-[address] YAHIR BROTHERS Facility:[facility] Start: 05-17-2022 End: 05-18-[address] YAHIR BROTHERS Facility:[facility] Start: 01-29-2019 End: 02-02-2019 Evaluation and management of inpatient YAHIR BROTHERS Facility:[facility] Procedures Date Procedure Procedure Detail Performing Clinician [...] Td Vaccines (2 - Td or Tdap) [facility] Start: 12-20-2024 Adult BMI Screening Adult BMI Screen ing [facility] Start: 12-20-2024 Tobacco Screening Tobacco Screening [facility] Start: 06-22-2023 COVID-19 Vaccine () COVID-19 Vaccine () [facility] Start: 2017 Fall Risk Screening Fall Risk Screen ing [facility] Start: 1970 Adult BMI Follow Up Plan Adult BMI Follow Up Plan [facility] Start: 1964 Depression Screening Depression Scre ening [facility] Start: 1950 Medicare Annual Wellness Visit Medicare Annual Wellness Visit [facility] Immunizations Immunization Date Immunization Notes Care Provider Fa cility 02-04-2021 COVID-19, mRNA, LNP- S, PF, 100mcg/0.5mL Dose Korina Oliver MD Work Phone: [facility] 01-07-2021 COVID-19, mRNA, LNP- S, PF, 100mcg/0.5mL Dose Korina Olivre MD Work Phone: [facility] 08-03-2019 pneumococcal conjuga te vaccine, 13 valent Korina Oliver MD Work Phone: [facility] Payers Date Payer Category Payer Unknown [employer] [id number] 2022-Present [phone] [address] [place] [address] [id number] 1959 Unknown [id number] 1959 Unknown [id number] 1952 Unknown [id number] [id number]7 1952 Unknown [id number] 2.16.840.1.532803.3.579.2.593 1952 Unknown [id number] 2.16.840.1.038109.3.579.2.593 1952 Unknown [id number] 2.16.840.1.403238.3.579.2.593 1952 Unknown [id number] 2.16.840.1.058796.3.579.2.1286 1952 Unknown [id number] 2.16.840.1.740890.3.579.2.1286 1952 Unknown [id number] 2.16.840.1.230014.3.579.2.1286 1952 Unknown [id number] 2.16.840.1.222755.3.579.2.1286 1952 Unknown [id number] 2.16.840.1.339479.3.579.2.1286 1952 Unknown [id number] 2.16.840.1.951838.3.579.2.1286 1952 Unknown [id number] 2.16.840.1.433930.3.579.2.1286 1952 Unknown [id number] 2.16.840.1.722407.3.579.2.1286 1952 Unknown [id number] 2.16.840.1.325287.3.579.2.1286 1952 Unknown [id number] 2.16.840.1.968587.3.579.2.1259 1952 Unknown [id number] 2.16.840.1.790514.3.579.2.1259 1952 Unknown [id number] 2.16.840.1.396786.3.579.2.1259 1952 Unknown [id number] 2.16.840.1.719370.3.579.2.1286 Medicare [id number] Social History Date Type Detail Facility Start: [facility] End: 03-11-2002 History of tobacco use Current smoker [facility] End: 03-11-2002 History of tobacco use Cigarette Smoker [facility] Start: 12-02-2020 End: 12-20-2023 Cigarettes smoked current (pack per day) - Reported 1 [facility] Start: 12-20-2023 Tobacco use and exposure Smoke less tobacco non-user [facility] Start: 12-21-2023 Alcohol intake Ex-drinker (finding) [facility] Start: 12-02-2020 End: 12-20-2023 [employer] [facility] Has the [employer] threatened to shut off services in your home in past 12Mo No [facility] In the past 12 month s, has lack of transportation kept you from medical appointments or from getting medications? No [facility] Start: 12-20-2023 Tobacco Comment quit 17 years ago Pr [employer] Start: 1950 Sex Assigned At Not on file P [employer] Goals Date Patient Goal Desired Activity /State [...] today she has been residing at a residential facility. Her son was present via telephone [...] Past Medical History: Diagnosis Date Atrial fibrillation ([facility]) CHF (congestive heart failure) ([facility]) Hypertension Pulmonary embolism ([facility]) Past Surgical History: Past Surgical History: Procedure [...] on file Intimate Partner Violence: Unknown (12/13/2023) MD Safety & Environment Fear of Current or [...] kg (304 lb) (more content not included)... [facility] Progress note 11-01-2023 Note Date & Type Note Facility 11-01-2023 Note Cardiovascular Medic [facility] SUBJECTIVE Chief Complaint Patient presents with [...] Disp: , Rfl (more content not included)... [facility] Progress note 11-01-2023 Note Date & Type Note Facility 11-01-2023 Note Patient here for 6 m o follow up permanent afib, chronic systolic heart failure, and hypertension. She was prescribed antibiotic yesterday by PCP for sinus infection. Having epistaxis and green/black stools. Made PCP aware of this yesterday. Says she was very sick around [place] but is feeling better. Review of Systems HENT: Positive for nosebleeds. Cardiovascular: Positive for dyspnea on exertion. Respiratory: Positive for cough and shortness of breath. Hematologic/Lymphatic: Bruises/bleeds easily. Neurological: Positive for focal weakness and weakness. All other systems reviewed and are negative. [facility] Progress note 05-23-2023 Note Date & Type Note Facility 05-23-2023 Note MD Cardiology - [facility] Subjective Afia Gill is [...] filling pressures. She (more content not included)... [facility] Progress note 02-19-2023 Note Date & [...] All other systems reviewed and are negative. [facility] Progress note 02-19-2023 Note Date & [...] Obstructive sleep apnea, on CPAP. Status post Trimble filter. Morbid obesity. She is currently on oxygen since December 20, 2018. Holter done to investigate palpitations showed atrial fibrillation with NSVT. Stress test 01/13/2019;1. Fixed versus minimally reversible perfusion defect of the anterior septal wall and apex. 2. Marked cardiomegaly and markedly low ejection fraction, 36%. 3. Dyskinesia of the apex with otherwise global moderate hypokinesis. Echocardiogram 2 (more content not included)... [facility] Instructions Note Date & Type Note Facility Instructions Not on filedocumented in this en counter [facility] Summary Purpose Family History No [...] PM Hospital Course Note MR#: [id number] I [facility] Pt. Name: Afia Gill Admitted: 01/29/2019 [...] and content) DATE CREATED AUTHOR 06/17/2019 [facility] DATE CREATED AUTHOR AUTHOR'S ORGANIZ ATION 03/03/2023 [facility] DATE CREATED AUTHOR AUTHOR'S ORGANIZ ATION 12/29/2023 [facility] DATE CREATED AUTHOR AUTHOR'S ORGANIZ ATION 12/29/2023 [facility] DATE CREATED AUTHOR AUTHOR'S ORGANIZ ATION 12/31/2023 [facility] DATE CREATED AUTHOR AUTHOR'S ORGANIZ ATION 01/12/2024 [facility] Care Teams (unrecognized sec tion and content) Dispatcher Radio Relationship Specialty Start Date End Date Yahir Brothers MD [address] [facility] [address] [place] [id number] PCP - General Internal Medicine [...] BE BASED ON THE PRIMARY CLINICAL RECORDS. [employer] [facility]. provides no warranty or guarantee of the accuracy or completeness of information in this document.
[2024-01-18 07:40] LABS: Basophils Absolute Auto 0.1 10^3/uL (0.0-0.1); Basophils Percent Auto 0.5 % (0.2-2.0); Eosinophils Absolute Auto 0.7 10^3/uL (0.0-0.7); Hematocrit 39.8 % (36.0-48.0); Hemoglobin 12.3 g/dL (12.0-16.0); Immature Granulocytes Abs Auto 0.04 10^3/uL (0.00-0.03); Immature Granulocytes Pct Auto 0.4 % (0.0-0.5); Lymphocytes Absolute Auto 2.8 10^3/uL (1.2-3.8); Lymphocytes Percent Auto 25.7 % (20.5-60.0); Mean Corpuscular HGB Conc 30.9 g/dL (29.9-35.2); Mean Corpuscular Hemoglobin 28.3 pg (26.7-34.0); Mean Corpuscular Volume 91.7 fL (81.0-99.0); Mean Platelet Volume 10.6 fL (9.5-13.5); Monocytes Absolute Auto 0.7 10^3/uL (0.3-0.8); Monocytes Percent Auto 6.8 % (1.7-12.0); Neutrophils Absolute Auto 6.6 10^3/uL (1.4-6.5); Neutrophils Percent Auto 60.6 % (43.0-75.0); Platelet Count 220 10^3/uL (150-450); Red Blood Count 4.34 10^6/uL (4.20-5.40); Red Cell Distribution Width 14.2 % (11.0-15.0); White Blood Count 10.9 10^3/uL (4.0-11.0)
[2024-01-18 07:45] LABS: INR 3.43; Prothrombin Time 33.9 sec (9.0-11.6)
[2024-01-18 08:10] LABS: Alanine Aminotransferase 24 U/L (14-59); Albumin Globulin Ratio 0.7; Albumin Level 2.8 g/dL (3.4-5.0); Alkaline Phosphatase 90 U/L (46-116); Anion Gap 13.9; Aspartate Amino Transferase 19 U/L (15-37); BUN Creatinine Ratio 14.9; Bilirubin Direct 0.1 mg/dL (0.0-0.2); Bilirubin Total 0.3 mg/dL (0.2-1.0); Calcium 8.9 mg/dL (8.5-10.1); Carbon Dioxide 28.8 mmol/L (21.0-32.0); Chloride 102 mmol/L (98-107); Creatine Kinase 88 U/L (26-192); Estimated GFR (African America >60 (>=60); Estimated GFR (Non-African Ame >60 (>=60); Globulin 4.3 g/dL; Glucose 124 mg/dL (74-106); Potassium 3.7 mmol/L (3.5-5.1); Sodium 141 mmol/L (136-145); Total Protein 7.1 g/dL (6.4-8.2)
== END 2024-01-18 02:36 | disposition home or self-care (01) ==
LOC: LAB 02:35
PROVIDERS: PCP Internal Medicine; Visit Provider Family Medicine
DX: M86.9 Osteomyelitis, unspecified (principal); Z79.2 Long term (current) use of antibiotics
CPT/HCPCS: 36415; 80048; 80076; 82550; 82565; 85025; 85610

== ENCOUNTER 2024-01-25 03:00 | Outpatient (REF) | payer MEDICARE, SELFPAY ==
--- OUTSIDE RECORDS SUMMARY | 2024-01-25 03:05 | XMS_ITS | CCD ---
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 Care Juice Standardizer Name Role Phone YAHIR BROTHERS Referring Unavailable YAHIR BROTHERS Primary Care Unavailable AHMED, LAN Attending Unavailable AHMED LAN Admitting Unavailable [place] Procedure Practitioner Unavailab le UNKNOWN, PROVIDER Surgeon [...] Care Unavailable ANDREA, DR GAO Consulting Unavailable RANGE, DR JEANETTE Armenta Consulting Unavailable Yahir Brothers MD Primary Care Provider [phone] RAND CRAWFORD Attending Unavailable YAHIR BROTHERS Primary Care Unavailable KORINA OLIVER Admitting Unavailable DANIEL BIRMINGHAM Consulting Unavailable DIVISION OF INFECTIOUS DISEASE, [facility] Consulting Unavailable YAYA KUMAR Consulting Unavailable DAANE BRITTON Attending Unavailable DANAE BRITTON Referring Unavailable [...] Referring Unavailable YAHIR BROTHERS Primary Care Unavailable RAMAN GOMEZ Attending Unavailable EBER JOSHUA Attending Unavailable ANITA MONTES Attending Unavailable ANITA MONTES Attending Unavailable JESSICA PRECIADO Attending Unavailable Allergies Allergy Classification Reported Allergen(s) Allergy Type Date of Onset Reaction(s) Facility (1 source) Estrogens Drug Allergy 9 [facility] (1 source) heparin Drug Allergy 9 [facility] (2 sources) Penicillins; Translations: [PENICILLINS] Drug allergy (disorder) 9 [facility] (2 sources) pregabalin Drug Allergy 9 [facility] (6 sources) Bleach (Sodium Hypochlorite); Translations: [Bleach (Sodium Hypochlorite)] Propensity to adverse reactions (disorder) 9 [facility] (4 sources) Aztreonam; Translations: [ESTROGENS, CONJUGATED] Drug Allergy 9 [facility] Rep[facility] (1 source) heparin Drug Allergy [facility] (5 sources) Penicillin; Translations: [PENICILLIN] Drug Allergy 9 [facility] (1 source) Misc-ENV; Translations: [Misc-ENV] Propensity to adverse reactions (disorder) [facility] (1 source) Estrogens, Conjugated (MCFP) Drug Allergy [address] [facility] (4 sources) heparin; Translations: [HEPARIN (PORCINE)] Drug Allergy [address] [facility] (4 sources) pregabalin; Translations: [PREGABALIN] Drug Allergy 9 [facility] (3 sources) Other; Translations: [OTHER] Propensity to adverse reactions [address] [facility] (1 source) heparin; Translations: [HEPARIN SODIUM, PORCINE] Drug Allergy 1 [facility] Medications Completed/Discontinued Medications Medication Drug [...] Problems Problem Classification Problem Date Documented Da nilsa Episodic/Chronic Cardiac dysrhythmias (1 source) Atrial fibrillation; [...] NEOPLSM OTH GENIT ORGN] Onset: 01-02-2023 Episodic Skin and [...] Name Value Interpretation Reference Range Facility 36on 01-23-2024 36 Message left for gilmer Ugalde at the SNF that pt may end treatment 01/30 as scheduled and may have her picc line removed. Normal [facility] Follow-Upon 01-23-2024 Follow-Up [id number] Maximo Gill A 1950 F Date Provider Department Center 01/23/2024 ANITA JONES [facility] Family History Problem Relation Age of Onset Heart attack Father Diabetes Father Hypertension Father Coronary artery disease Father Rheum arthritis Father Family Status - Relation Status Age at Father Level of Service:33370 [place] OFFICE/OUTPATIENT ESTABLISHED MOD MDM 30 MIN Reason for Visit and Comments: Follow-up [065730] - Pt is here for evaluation of process of treatment. 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 Pt is on IV ceftriaxone and daptomycin through 01/31/24. Pt state she is feeling better overall than she was before and is able to wiggle her toes and walk which were both difficult before. Normal [facility] 36on 01-22-2024 36 I attempted to call [facility] to get an updated copy of this patient's labs, but the phone rang through without an answer. The patient is following up tomorrow. [facility] Telephoneon 01-22-2024 Telephone [phone] Maximo Gill tiffanie A 1950 F Date Provider Department Center 01/22/2024 ANITA JONES [facility] Family History Problem Relation Age of Onset Heart attack Father Diabetes Father Hypertension Father Coronary artery disease Father Rheum arthritis Father Family Status - Relation Status Age at Father Normal [facility] Follow-Upon 01-11-2024 Follow-Up [id number] Maximo Gill tiffanie A 1950 F Date Provider Department Center 01/11/2024 ANITA JONES [facility] Family History Problem Relation Age of Onset Heart attack Father Diabetes Father Hypertension Father Coronary artery disease Father Rheum arthritis Father Family Status - Relation Status Age at Father Level of Service:46287 [place] OFFICE/OUTPATIENT ESTABLISHED MOD MDM 30 MIN Reason for Visit and Comments: PPD Read [[id number]] - Follow up Toes feel better Normal [facility] 36on 01-09-2024 36 Opat received. Call to [facility] and confirmed orders. Labs will be drawn 01/09. Staff was not aware of the appt today so the visit is rescheduled for 01/10. Normal [facility] CBC AND AUTO DIFFon 12-28-19 24 ABSOLUTE BASOPHIL 0.1 X10E9/L Normal 0.0-0.2 [facility] Comment on above: Performed By: #### U A #### [facility] ([id number]) [address] [place] [address] 61596 ABSOLUTE NEUTROPHIL 9.5 X10E9/L High 1.5-6.6 [facility] Comment on above: Performed By: #### U A #### [facility] ([id number]) [address] [place] [address] 07145 Basophils/100 WBC (Bld) 0.5 % Normal [facility] Comment on above: Performed By: #### U A #### [facility] ([id number]) [address] [place] [address] 95801 Eosinophils (Bld) [#/Vol] 0.8 10*3/uL High 0.0-0.4 [facility] Comment on above: Performed By: #### U A #### [facility] ([id number]) [address] [place] [address] 45941 Eosinophils/100 WBC (Bld) 5.8 % Normal [facility] Comment on above: Performed By: #### U A #### [facility] ([id number]) [address] [place] [address] 51307 Erythrocyte distribution width (RBC) [Ratio] 13.6 % Normal 11.5-15.0 [facility] Comment on above: Performed By: #### U A #### [facility] ([id number]) [address] [place] [address] 60588 Hematocrit (Bld) [Volume fraction] 35.5 % Normal 35-47 [facility] Comment on above: Performed By: #### U A #### [facility] ([id number]) [address] [place] [address] 85528 Hemoglobin (Bld) [Mass/Vol] 11.9 g/dL Normal 11.7-15.5 [facility] Comment on above: Performed By: #### U A #### [facility] ([id number]) [address] [place] [address] 98044 Lymphocytes (Bld) [#/Vol] 2.6 10*3/uL Normal 1.0-3.5 [facility] Comment on above: Performed By: #### U A #### [facility] ([id number]) [address] [place] [address] 43069 Lymphocytes/100 WBC (Bld) 19.1 % Normal [facility] Comment on above: Performed By: #### U A #### [facility] ([id number]) [address] [place] [address] 29106 MCH (RBC) [Entitic mass] 28.7 pg Normal 27-34 [facility] Comment on above: Performed By: #### U A #### [facility] ([id number]) [address] [place] [address] [place] [address] MCHC (RBC) [Mass/Vol] 33.4 g/dL Normal 32-36 [facility] Comment on above: Performed By: #### U A #### [facility] ([id number]) [address] [place] [address] 57525 MCV (RBC) [Entitic vol] 86 fL Normal 80-100 [facility] Comment on above: Performed By: #### U A #### [facility] ([id number]) [address] [place] [address] 87240 Monocytes (Bld) [#/Vol] 0.7 10*3/uL Normal 0-0.9 [facility] Comment on above: Performed By: #### U A #### [facility] ([id number]) [address] [place] [address] 40879 Monocytes/100 WBC (Bld) 5.3 % Normal [facility] Comment on above: Performed By: #### U A #### [facility] ([id number]) [address] [place] [address] 79194 Neutrophils/100 WBC (Bld) 69.3 % Normal [facility] Comment on above: Performed By: #### U A #### [facility] ([id number]) [address] [place] [address] 10333 Platelet mean volume (Bld) [Entitic vol] 8.7 fL Normal 7-12 [facility] Comment on above: Performed By: #### U A #### [facility] ([id number]) [address] [place] [address] 82360 Platelets (Bld) [#/Vol] 335 10*3/uL Normal 150-450 [facility] Comment on above: Performed By: #### U A #### [facility] ([id number]) [address] [place] [address] 45639 RBC COUNT 4.13 X10E12/L Normal 3.80-5.20 [facility] Comment on above: Performed By: #### U A #### [facility] ([id number]) [address] [place] [address] 96139 WBC (Bld) [#/Vol] 13.7 10*3/uL High 4.0-11.0 [facility] Comment on above: Performed By: #### U A #### [facility] ([id number]) [address] [place] [address] 41032 COMPREHENSIVE METABOLIC PANE Tyrone 12-28-2023 Albumin [Mass/Vol] 3.1 g/dL Low 3.2-5.3 [facility] Comment on above: Performed By: #### U A #### [facility] ([id number]) [address] [place] [address] 33304 ALP [Catalytic activity/Vol] 68 U/L Normal 39-130 [facility] Comment on above: Performed By: #### U A #### [facility] ([id number]) [address] [place] [address] 57193 ALT [Catalytic activity/Vol] 21 U/L Normal 0-31 [facility] Comment on above: Performed By: #### U A #### [facility] ([id number]) [address] [place] [address] 80292 Anion gap [Moles/Vol] 10 mmol/L Normal 5-15 [facility] Comment on above: Performed By: #### U A #### [facility] ([id number]) [address] [place] [address] 99697 AST [Catalytic activity/Vol] 21 U/L Normal 0-41 [facility] Comment on above: Performed By: #### U A #### [facility] ([id number]) [address] [place] [address] 29710 Bilirubin [Mass/Vol] 0.4 mg/dL Normal 0.3-1.2 [facility] Comment on above: Performed By: #### U A #### [facility] ([id number]) [address] [place] [address] 46075 Calcium [Mass/Vol] 8.6 mg/dL Normal 8.5-10.5 [facility] Comment on above: Performed By: #### U A #### [facility] ([id number]) [address] [place] [address] 50896 Chloride [Moles/Vol] 98 mmol/L Normal 98-109 [facility] Comment on above: Performed By: #### U A #### [facility] ([id number]) [address] [place] [address] 71092 CO2 [Moles/Vol] 31 mmol/L Normal 22-32 [facility] Comment on above: Performed By: #### U A #### [facility] ([id number]) [address] [place] [address] 23033 Creatinine [Mass/Vol] 0.72 mg/dL Normal 0.40-1.00 [facility] Comment on above: Result Comment: METH OD TRACEABLE TO IDMS STANDARD Performed By: #### U A #### [facility] ([id number]) [address] [place] [address] 08627 GFR/1.73 sq M.predicted among non-blacks MDRD (S/P/Bld) [Vol rate/Area] 89 mL/min/{1.73_m2} Normal >59 [facility] Comment on above: Result Comment: Reported eGFR is based on the CKD-EPI 1 equation that does not use a race coefficient. Performed By: #### U A #### [facility] ([id number]) [address] [place] [address] 99301 Glucose [Mass/Vol] 123 mg/dL High 65-99 [facility] Comment on above: Performed By: #### U A #### [facility] ([id number]) [address] [place] [address] 74650 Potassium [Moles/Vol] 3.7 mmol/L Normal 3.5-5.0 [facility] Comment on above: Performed By: #### U A #### [facility] ([id number]) [address] [place] [address] 03796 Protein [Mass/Vol] 7.1 g/dL Normal 6.0-8.0 [facility] Comment on above: Performed By: #### U A #### [facility] ([id number]) [address] [place] [address] 55980 Sodium [Moles/Vol] 139 mmol/L Normal 134-146 [facility] Comment on above: Performed By: #### U A #### [facility] ([id number]) [address] [place] [address] 63430 Urea nitrogen [Mass/Vol] 16 mg/dL Normal 5-27 [facility] Comment on above: Performed By: #### U A #### [facility] ([id number]) [address] [place] [address] 44976 MAGNESIUMon 12-28-2023 Magnesium [Mass/Vol] 2.3 mg/dL Normal 1.8-2.6 [facility] Comment on above: Performed By: #### U A #### [facility] ([id number]) [address] [place] [address] 19324 PROTIME AND INRon 12-28-2023 INR Coag (PPP) [Relative time] 2.5 {INR} High 0.8-1.1 [facility] Comment on above: Performed By: #### U A #### [facility] ([id number]) [address] [place] [address] 27990 PT Coag (PPP) [Time] 28.0 s High 9.8-13.2 [facility] Comment on above: Result Comment: NEW REFERENCE RANGE Performed By: #### U A #### [facility] ([id number]) [address] [place] [address] 60548 Vancomycin trough [Mass/Vol] on 12-28-2023 VANCOMYCIN TROUGH 26.7 ug/mL Critically high 5.0-20.0 [facility] Comment on above: Performed By: #### U A #### [facility] ([id number]) [address] [place] [address] 44208 CBC AND AUTO DIFFon 12-27-19 ABSOLUTE BASOPHIL 0.0 X10E9/L Normal 0.0-0.2 [facility] Comment on above: Performed By: #### Chanel ERICKSON, [facility], 1988-02 #### [facility] ([id number]) [address] [place] [address] 13795 #### 23597-3 #### [facility] ([id number]) [address], [address] [place] [address] ABSOLUTE NEUTROPHIL 8.9 X10E9/L High 1.5-6.6 [facility] Comment on above: Performed By: #### Chanel ERICKSON, [facility], 1986-02 #### [facility] ([id number]) [address] [place] [address] 79515 #### 05999-5 #### [facility] ([id number]) [address], [address] [place] [address] Basophils/100 WBC (Bld) 0.3 % Normal [facility] Comment on above: Performed By: #### Chanel ERICKSON, CMP, 1986-02 #### [facility] ([id number]) [address] [place] [address] 83748 #### 41217-9 #### [facility] ([id number]) [address], [address] [place] [address] Eosinophils (Bld) [#/Vol] 0.8 10*3/uL High 0.0-0.4 [facility] Comment on above: Performed By: #### Chanel BCA, CMP, 1986-02 #### [facility] ([id number]) [address] [place] [address] 42338 #### 07772-4 #### [facility] ([id number]) [address] [facility] [place] [address] Eosinophils/100 WBC (Bld) 6.1 % Normal [facility] Comment on above: Performed By: #### Chanel ERICKSON CMP, 1986-02 #### [facility] ([id number]) [address] [place] [address] 70250 #### 47893-7 #### [facility] ([id number]) [address] [place] [address] Erythrocyte distribution width (RBC) [Ratio] 13.7 % Normal 11.5-15.0 [facility] Comment on above: Performed By: #### Chanel ERICKSON CMP, 1986-02 #### [facility] ([id number]) [address] [place] [address] 85234 #### 66854-2 #### [facility] ([id number]) [address] [facility] [place] [address] Hematocrit (Bld) [Volume fraction] 34.5 % Low 35-47 [facility] Comment on above: Performed By: #### Chanel ERICKSON CMP, 1986-02 #### [facility] ([id number]) [address] [place] [address] 12714 #### 16524-5 #### [facility] ([id number]) [address] [facility] [place] [address] Hemoglobin (Bld) [Mass/Vol] 11.5 g/dL Low 11.7-15.5 [facility] Comment on above: Performed By: #### Chanel ERICKSON CMP, 1986-02 #### [facility] ([id number]) [address] [place] [address] 70915 #### 17786-7 #### [facility] ([id number]) [address], [address] [place] [address] Lymphocytes (Bld) [#/Vol] 2.4 10*3/uL Normal 1.0-3.5 [facility] Comment on above: Performed By: #### Chanel ERICKSON CMP, 1986-02 #### [facility] ([id number]) [address] [place] [address] 00176 #### 63854-1 #### [facility] ([id number]) [address] [place] [address] Lymphocytes/100 WBC (Bld) 18.4 % Normal [facility] Comment on above: Performed By: #### Chanel ERICKSON CMP, 1986-02 #### [facility] ([id number]) [address] [place] [address] 45515 #### 76032-8 #### [facility] ([id number]) [address] [place] [address] MCH (RBC) [Entitic mass] 28.8 pg Normal 27-34 [facility] Comment on above: Performed By: #### Chanel ERICKSON CMP, 1986-02 #### [facility] ([id number]) [address] [place] [address] 10956 #### 29342-1 #### [facility] ([id number]) [address] [place] [address] MCHC (RBC) [Mass/Vol] 33.3 g/dL Normal 32-36 [facility] Comment on above: Performed By: #### Chanel ERICKSON CMP, 1986-02 #### [facility] ([id number]) [address] [place] [address] 23794 #### 12174-7 #### [facility] ([id number]) [address], [address] [place] [address] MCV (RBC) [Entitic vol] 87 fL Normal 80-100 [facility] Comment on above: Performed By: #### Chanel ERICKSON CMP, 1986-02 #### [facility] ([id number]) [address] [place] [address] 27751 #### 92447-9 #### [facility] ([id number]) [address], [address] [place] [address] Monocytes (Bld) [#/Vol] 0.9 10*3/uL Normal 0-0.9 [facility] Comment on above: Performed By: #### Chanel ERICKSON CMP, 1986-02 #### [facility] ([id number]) [address] [place] [address] 40321 #### 18127-1 #### [facility] ([id number]) [address], [address] [place] [address] Monocytes/100 WBC (Bld) 7.1 % Normal [facility] Comment on above: Performed By: #### Chanel ERICKSON CMP, 1988-02 #### [facility] ([id number]) [address] [place] [address] 42116 #### 68439-2 #### [facility] ([id number]) [address], [address] [place] [address] Neutrophils/100 WBC (Bld) 68.1 % Normal [facility] Comment on above: Performed By: #### Chanel ERICKSON CMP, 1986-02 #### [facility] ([id number]) [address] [place] [address] 85770 #### 38637-5 #### [facility] ([id number]) [address] [place] [address] Platelet mean volume (Bld) [Entitic vol] 8.7 fL Normal 7-12 [facility] Comment on above: Performed By: #### Chanel ERICKSON CMP, 1988-02 #### [facility] ([id number]) [address] [place] [address] 23392 #### 59727-1 #### [facility] ([id number]) [address], [address] [place] [address] Platelets (Bld) [#/Vol] 323 10*3/uL Normal 150-450 [facility] Comment on above: Performed By: #### Chanel ERICKSON CMP, 1988-02 #### [facility] ([id number]) [address] [place] [address] 00587 #### 16642-1 #### [facility] ([id number]) [address] [place] [address] RBC COUNT 3.98 X10E12/L Normal 3.80-5.20 [facility] Comment on above: Performed By: #### Chanel ERICKSON CMP, 1986-02 #### [facility] ([id number]) [address] [place] [address] 19275 #### 14939-3 #### [facility] ([id number]) [address], [address] [place] [address] WBC (Bld) [#/Vol] 13.1 10*3/uL High 4.0-11.0 [facility] Comment on above: Performed By: #### Chanel ERICKSON CMP, 1986-02 #### [facility] ([id number]) [address] [place] [address] 34087 #### 06219-4 #### [facility] ([id number]) [address] [facility] [place] [address] COMPREHENSIVE METABOLIC PANE Tyrone 12-27-2023 Albumin [Mass/Vol] 3.0 g/dL Low 3.2-5.3 [facility] Comment on above: Performed By: #### Chanel ERICKSON CMP, 1986-02 #### [facility] ([id number]) [address] [place] [address] 59795 #### 44246-3 #### [facility] ([id number]) [address], [address] [place] [address] ALP [Catalytic activity/Vol] 68 U/L Normal 39-130 [facility] Comment on above: Performed By: #### Chanel ERICKSON [facility], 1988-02 #### [facility] ([id number]) [address] [place] [address] 17163 #### 41160-8 #### [facility] ([id number]) [address], [address] [place] [address] ALT [Catalytic activity/Vol] 17 U/L Normal 0-31 [facility] Comment on above: Performed By: #### Chanel ERICKSON [facility], 1988-02 #### [facility] ([id number]) [address] [place] [address] 73683 #### 99616-0 #### [facility] ([id number]) [address], [address] [place] [address] Anion gap [Moles/Vol] 8 mmol/L Normal 5-15 [facility] Comment on above: Performed By: #### C DRE CMP, 1988-02 #### [facility] ([id number]) [address] [place] [address] 81688 #### 79726-6 #### [facility] ([id number]) [address], [address] [place] [address] AST [Catalytic activity/Vol] 16 U/L Normal 0-41 [facility] Comment on above: Performed By: #### C BCA, CMP, 1988-02 #### [facility] ([id number]) [address] [place] [address] 48999 #### 43931-8 #### [facility] ([id number]) [address] [place] [address] Bilirubin [Mass/Vol] 0.5 mg/dL Normal 0.3-1.2 [facility] Comment on above: Performed By: #### C BCA, CMP, 1988-02 #### [facility] ([id number]) [address] [place] [address] 61126 #### 47102-7 #### [facility] ([id number]) [address] [place] [address] Calcium [Mass/Vol] 8.3 mg/dL Low 8.5-10.5 [facility] Comment on above: Performed By: #### C BCA, CMP, 1988-02 #### [facility] ([id number]) [address] [place] [id number] #### [id number] #### [facility] ([id number]) [address] [place] [address] Chloride [Moles/Vol] 99 mmol/L Normal 98-109 [facility] Comment on above: Performed By: #### C BCA, CMP, 1988-02 #### [facility] ([id number]) [address] [place] [id number] #### [id number] #### [facility] ([id number]) [address] [place] [address] CO2 [Moles/Vol] 31 mmol/L Normal 22-32 [facility] Comment on above: Performed By: #### C BCA, CMP, 1988-02 #### [facility] ([id number]) [address] [place] [id number] #### [id number] #### [facility] ([id number]) [address], [address] [place] [address] Creatinine [Mass/Vol] 0.71 mg/dL Normal 0.40-1.00 [facility] Comment on above: Result Comment: METH OD TRACEABLE TO IDMS STANDARD Performed By: #### C DRE [facility], 1988-02 #### [facility] ([id number]) [address] [place] [id number] #### [id number] #### [facility] ([id number]) [address], [address] [place] [address] eGFR (CKD-EPI) NON-RACE DEPENDENT >90 Normal >59 [facility] Comment on above: Result Comment: Reported eGFR is based on the CKD-EPI 2020 equation that does not use a race coefficient. Performed By: #### Chanel ERICKSON [facility], 1988-02 #### [facility] ([id number]) [address] [place] [address] 68371 #### [id number] #### [facility] ([id number]) [address], [address] [place] [address] Glucose [Mass/Vol] 119 mg/dL High 65-99 [facility] Comment on above: Performed By: #### Chanel ERICKSON [facility], 1988-02 #### [facility] ([id number]) [address] [place] [address] 53281 #### 54513-6 #### [facility] ([id number]) [address], [address] [place] [address] Potassium [Moles/Vol] 3.6 mmol/L Normal 3.5-5.0 [facility] Comment on above: Performed By: #### Chanel ERICKSON [facility], 1988-02 #### [facility] ([id number]) [address] [place] [address] 60095 #### 59673-5 #### [facility] ([id number]) [address], [address] [place] [address] Protein [Mass/Vol] 7.0 g/dL Normal 6.0-8.0 [facility] Comment on above: Performed By: #### C DRE [facility], 1988-02 #### [facility] ([id number]) [address] [place] [address] 35314 #### 59960-5 #### [facility] ([id number]) [address], [address] [place] [address] Sodium [Moles/Vol] 138 mmol/L Normal 134-146 [facility] Comment on above: Performed By: #### Chanel ERICKSON [facility], 1988-02 #### [facility] ([id number]) [address] [place] [address] 76849 #### 51540-8 #### [facility] ([id number]) [address], [address] [place] [address] Urea nitrogen [Mass/Vol] 18 mg/dL Normal 5-27 [facility] Comment on above: Performed By: #### Chanel ERICKSON [facility], 1988-02 #### [facility] ([id number]) [address] [place] [address] 22418 #### 53459-9 #### [facility] ([id number]) [address], [address] [place] [address] Glucose Glucometer (BldC) [M ass/Vol]on 12-27-2023 Glucose [Mass/Vol] 149 mg/dL High 65-99 [facility] Glucose [Mass/Vol] 156 mg/dL High 65-99 [facility] Glucose [Mass/Vol] 181 mg/dL High 65-99 [facility] MAGNESIUMon 12-27-2023 Magnesium [Mass/Vol] 2.3 mg/dL Normal 1.8-2.6 [facility] Comment on above: Performed By: #### U A #### [facility] ([id number]) [address] [place] [address] 84187 PROTIME AND INRon 12-27-2023 INR Coag (PPP) [Relative time] 2.9 {INR} High 0.8-1.1 [facility] Comment on above: Performed By: #### Chanel ERICKSON [facility], 1988-02 #### [facility] ([id number]) [address] [place] [address] 39350 #### 46542-9 #### [facility] ([id number]) [address] [place] [address], [address] [place] [address] PT Coag (PPP) [Time] 32.6 s High 9.8-13.2 [facility] Comment on above: Result Comment: NEW REFERENCE RANGE Performed By: #### Chanel ERICKSON CMP, 1988-02 #### [facility] ([id number]) [address] [place] [address] 98816 #### 98087-5 #### [facility] ([id number]) [address] [place] [address], [address] [place] [address] CBC AND AUTO DIFFon 12-26-19 24 ABSOLUTE BASOPHIL 0.1 X10E9/L Normal 0.0-0.2 [facility] Comment on above: Performed By: #### Chanel ERICKSON CMP, 1988-02 #### [facility] ([id number]) [address] [place] [address] 26766 #### 76027-7 #### [facility] ([id number]) [address] [place] [address], [address] [place] [address] ABSOLUTE NEUTROPHIL 11.1 X10E9/L High 1.5-6.6 [facility] Comment on above: Performed By: #### Chanel ERICKSON [facility], 1988-02 #### [facility] ([id number]) [address] [place] [address] 25270 #### 02569-0 #### [facility] ([id number]) [address] [facility] [place] [address] Basophils/100 WBC (Bld) 0.4 % Normal [facility] Comment on above: Performed By: #### Chanel ERICKSON [facility], 1988-02 #### [facility] ([id number]) [address] [place] [address] 35467 #### 47489-8 #### [facility] ([id number]) [address] [facility] [place] [address] Eosinophils (Bld) [#/Vol] 0.8 10*3/uL High 0.0-0.4 [facility] Comment on above: Performed By: #### Chanel ERICKSON [facility], 1988-02 #### [facility] ([id number]) [address] [place] [address] 31064 #### 89726-9 #### [facility] ([id number]) [address] [facility] [place] [address] Eosinophils/100 WBC (Bld) 5.4 % Normal [facility] Comment on above: Performed By: #### Chanel ERICKSON [facility], 1988-02 #### [facility] ([id number]) [address] [place] [address] 48171 #### 83408-9 #### [facility] ([id number]) [address] [facility] [place] [address] Erythrocyte distribution width (RBC) [Ratio] 13.9 % Normal 11.5-15.0 [facility] Comment on above: Performed By: #### Chanel ERICKSON [facility], 1988-02 #### [facility] ([id number]) [address] [place] [address] 69015 #### 83675-7 #### [facility] ([id number]) [address], [address] [place] [address] Hematocrit (Bld) [Volume fraction] 35.9 % Normal 35-47 [facility] Comment on above: Performed By: #### Chanel ERICKSON [facility], 1988-02 #### [facility] ([id number]) [address] [place] [address] 63235 #### 78415-2 #### [facility] ([id number]) [address], [address] [place] [address] Hemoglobin (Bld) [Mass/Vol] 11.7 g/dL Normal 11.7-15.5 [facility] Comment on above: Performed By: #### Chanel ERICKSON [facility], 1988-02 #### [facility] ([id number]) [address] [place] [address] 12813 #### 75650-5 #### [facility] ([id number]) [address], [address] [place] [address] Lymphocytes (Bld) [#/Vol] 2.6 10*3/uL Normal 1.0-3.5 [facility] Comment on above: Performed By: #### Chanel ERICKSON [facility], 1988-02 #### [facility] ([id number]) [address] [place] [address] 97732 #### 64092-2 #### [facility] ([id number]) [address], [address] [place] [address] Lymphocytes/100 WBC (Bld) 16.6 % Normal [facility] Comment on above: Performed By: #### Chanel ERICKSON, CMP, 1988-02 #### [facility] ([id number]) [address] [place] [address] 28848 #### 99168-2 #### [facility] ([id number]) [address], [address] [place] [address] MCH (RBC) [Entitic mass] 28.2 pg Normal 27-34 [facility] Comment on above: Performed By: #### Chanel ERICKSON, CMP, 1988-02 #### [facility] ([id number]) [address] [place] [address] 88276 #### 70097-1 #### [facility] ([id number]) [address], [address] [place] [address] MCHC (RBC) [Mass/Vol] 32.7 g/dL Normal 32-36 [facility] Comment on above: Performed By: #### Chanel ERICKSON, CMP, 1988-02 #### [facility] ([id number]) [address] [place] [address] 07084 #### 83260-2 #### [facility] ([id number]) [address], [address] [place] [address] MCV (RBC) [Entitic vol] 86 fL Normal 80-100 [facility] Comment on above: Performed By: #### Chanel ERICKSON, CMP, 1988-02 #### [facility] ([id number]) [address] [place] [address] 25240 #### 84860-3 #### [facility] ([id number]) [address] [place] [address] Monocytes (Bld) [#/Vol] 0.9 10*3/uL Normal 0-0.9 [facility] Comment on above: Performed By: #### Chanel ERICKSON CMP, 1988-02 #### [facility] ([id number]) [address] [place] [address] 30821 #### 80824-5 #### [facility] ([id number]) [address], [address] [place] [address] Monocytes/100 WBC (Bld) 5.9 % Normal [facility] Comment on above: Performed By: #### Chanel ERICKSON CMP, 1988-02 #### [facility] ([id number]) [address] [place] [address] 40386 #### 54808-2 #### [facility] ([id number]) [address], [address] [place] [address] Neutrophils/100 WBC (Bld) 71.7 % Normal [facility] Comment on above: Performed By: #### Chanel ERICKSON CMP, 1988-02 #### [facility] ([id number]) [address] [place] [address] 26566 #### 13758-7 #### [facility] ([id number]) [address] [place] [address] Platelet mean volume (Bld) [Entitic vol] 8.6 fL Normal 7-12 [facility] Comment on above: Performed By: #### Chanel ERICKSON CMP, 1988-02 #### [facility] ([id number]) [address] [place] [address] 16895 #### 98186-5 #### [facility] ([id number]) [address], [address] [place] [address] Platelets (Bld) [#/Vol] 338 10*3/uL Normal 150-450 [facility] Comment on above: Performed By: #### Chanel ERICKSON CMP, 1988-02 #### [facility] ([id number]) [address] [place] [address] 81589 #### 53329-2 #### [facility] ([id number]) [facility] [facility], [address] [place] [address] RBC COUNT 4.16 X10E12/L Normal 3.80-5.20 [facility] Comment on above: Performed By: #### Chanel ERICKSON CMP, 1988-02 #### [facility] ([id number]) [address] [place] [address] 72272 #### 92284-3 #### [facility] ([id number]) [address] [place] [address], [address] [place] [address] WBC (Bld) [#/Vol] 15.5 10*3/uL High 4.0-11.0 [facility] Comment on above: Performed By: #### Chanel ERICKSON CMP, 1988-02 #### [facility] ([id number]) [address] [place] [address] 05584 #### 84083-3 #### [facility] ([id number]) [address] [place] [address], [address] [place] [address] COMPREHENSIVE METABOLIC PANE Tyrone 12-26-2023 Albumin [Mass/Vol] 3.2 g/dL Normal 3.2-5.3 [facility] Comment on above: Performed By: #### Chanel ERICKSON CMP, 1988-02 #### [facility] ([id number]) [address] [place] [address] 42881 #### 34876-9 #### [facility] ([id number]) [address] [place] [address], [address] [place] [address] ALP [Catalytic activity/Vol] 69 U/L Normal 39-130 [facility] Comment on above: Performed By: #### Chanel BCA CMP, 1988-02 #### [facility] ([id number]) [address] [place] [address] 76212 #### 19567-5 #### [facility] ([id number]) [address], [address] [place] [address] ALT [Catalytic activity/Vol] 16 U/L Normal 0-31 [facility] Comment on above: Performed By: #### Chanel ERICKSON CMP, 1988-02 #### [facility] ([id number]) [address] [place] [address] 74318 #### 13085-7 #### [facility] ([id number]) [address] [facility] [place] [address] Anion gap [Moles/Vol] 10 mmol/L Normal 5-15 [facility] Comment on above: Performed By: #### Chanel ERICKSON CMP, 1988-02 #### [facility] ([id number]) [address] [place] [address] 29895 #### 99959-3 #### [facility] ([id number]) [address] [facility] [place] [address] AST [Catalytic activity/Vol] 17 U/L Normal 0-41 [facility] Comment on above: Performed By: #### Chanel ERICKSON CMP, 1988-02 #### [facility] ([id number]) [address] [place] [address] 70535 #### 03444-7 #### [facility] ([id number]) [address], [address] [place] [address] Bilirubin [Mass/Vol] 0.4 mg/dL Normal 0.3-1.2 [facility] Comment on above: Performed By: #### Chanel ERICKSON CMP, 1988-02 #### [facility] ([id number]) [address] [place] [address] 66257 #### 71730-6 #### [facility] ([id number]) [address] [place] [address] Calcium [Mass/Vol] 8.7 mg/dL Normal 8.5-10.5 [facility] Comment on above: Performed By: #### C DRE CMP, 1988-02 #### [facility] ([id number]) [address] [place] [address] 95286 #### 95327-7 #### [facility] ([id number]) [address], [address] [place] [address] Chloride [Moles/Vol] 98 mmol/L Normal 98-109 [facility] Comment on above: Performed By: #### C SEAN ERICKSON, 1988-02 #### [facility] ([id number]) [address] [place] [address] 77157 #### 38029-6 #### [facility] ([id number]) [address] [place] [address] CO2 [Moles/Vol] 31 mmol/L Normal 22-32 [facility] Comment on above: Performed By: #### C DRE CMP, 1988-02 #### [facility] ([id number]) [address] [place] [address] 37727 #### 67819-5 #### [facility] ([id number]) [address] [place] [address] Creatinine [Mass/Vol] 0.78 mg/dL Normal 0.40-1.00 [facility] Comment on above: Result Comment: METH OD TRACEABLE TO IDMS STANDARD Performed By: #### C DRE CMP, 1988-02 #### [facility] ([id number]) [address] [place] [address] 57967 #### 74507-4 #### [facility] ([id number]) [address] [place] [address] GFR/1.73 sq M.predicted among non-blacks MDRD (S/P/Bld) [Vol rate/Area] 81 mL/min/{1.73_m2} Normal >59 [facility] Comment on above: Result Comment: Reported eGFR is based on the CKD-EPI 2020 equation that does not use a race coefficient. Performed By: #### Chanel ERICKSON CMP, 1988-02 #### [facility] ([id number]) [address] [place] [address] 66278 #### 32151-4 #### [facility] ([id number]) [address] [place] [address] Glucose [Mass/Vol] 129 mg/dL High 65-99 [facility] Comment on above: Performed By: #### Chanel ERICKSON CMP, 1988-02 #### [facility] ([id number]) [address] [place] [address] 78094 #### 59434-3 #### [facility] ([id number]) [address], [address] [place] [address] Potassium [Moles/Vol] 3.8 mmol/L Normal 3.5-5.0 [facility] Comment on above: Performed By: #### Chanel ERICKSON CMP, 1988-02 #### [facility] ([id number]) [address] [place] [address] 49574 #### 37475-2 #### [facility] ([id number]) [address] [place] [address] Protein [Mass/Vol] 7.3 g/dL Normal 6.0-8.0 [facility] Comment on above: Performed By: #### Chanel ERICKSON CMP, 1988-02 #### [facility] ([id number]) [address] [place] [address] 11438 #### 20964-6 #### [facility] ([id number]) [address] [facility] [place] [address] Sodium [Moles/Vol] 139 mmol/L Normal 134-146 [facility] Comment on above: Performed By: #### Chanel ERICKSON CMP, 1988-02 #### [facility] ([id number]) [address] [place] [address] 40360 #### 87557-1 #### [facility] ([id number]) [address] [facility] [place] [address] Urea nitrogen [Mass/Vol] 19 mg/dL Normal 5-27 [facility] Comment on above: Performed By: #### Chanel ERICKSON CMP, 1988-02 #### [facility] ([id number]) [address] [place] [address] 40606 #### 66507-5 #### [facility] ([id number]) [address] [facility] [place] [address] Glucose Glucometer (BldC) [M ass/Vol]on 12-26-2023 Glucose [Mass/Vol] 146 mg/dL High 65-99 [facility] Glucose [Mass/Vol] 182 mg/dL High 65-99 [facility] Glucose [Mass/Vol] 108 mg/dL High 65-99 [facility] MAGNESIUMon 12-26-2023 Magnesium [Mass/Vol] 2.3 mg/dL Normal 1.8-2.6 [facility] Comment on above: Performed By: #### Chanel ERICKSON CMP, 1988-02 #### [facility] ([id number]) [address] [place] [address] 72424 #### 15778-2 #### [facility] ([id number]) [address] [facility] [place] [address] MR FOOT RT W WO CONTon 12-25 [...] Alberto MD on 12/26/2023 12:57 PM Normal [facility] PROTIME AND INRon 12-26-2023 INR Coag (PPP) [Relative time] 3.0 {INR} High 0.8-1.1 [facility] Comment on above: Performed By: #### C SEAN ERICKSON, 1985- #### [facility] ([id number]) [address] [facility] [place] [address] #### 57120-7 #### [facility] ([id number]) [address] [facility], [address] [place] [address] PT Coag (PPP) [Time] 33.3 s High 9.8-13.2 [facility] Comment on above: Result Comment: NEW REFERENCE RANGE Performed By: #### Chanel ERICKSON [facility], 1988-02 #### [facility] ([id number]) [address] [place] [address] 43157 #### 63012-6 #### [facility] ([id number]) [address] [facility] [place] [address] Vancomycin trough [Mass/Vol] on 12-26-2023 VANCOMYCIN TROUGH 11.6 ug/mL Normal 5.0-20.0 [facility] Comment on above: Performed By: #### Chanel ERICKSON [facility], 1988-02 #### [facility] ([id number]) [address] [place] [address] 85466 #### 84564-8 #### [facility] ([id number]) [address] [facility], [address] [place] [address] CBC AND AUTO DIFFon 12-25-19 ABSOLUTE BASOPHIL 0.1 X10E9/L Normal 0.0-0.2 [facility] Comment on above: Performed By: #### Chanel ERICKSON [facility], 1988-02 #### [facility] ([id number]) [address] [place] [address] 16014 #### 38331-0 #### [facility] ([id number]) [address] [facility] [place] [address] ABSOLUTE NEUTROPHIL 9.4 X10E9/L High 1.5-6.6 [facility] Comment on above: Performed By: #### Chanel ERICKSON [facility], 1988-02 #### [facility] ([id number]) [address] [place] [address] 38655 #### 26467-9 #### [facility] ([id number]) [address] [facility] [place] [address] Basophils/100 WBC (Bld) 0.4 % Normal [facility] Comment on above: Performed By: #### Chanel ERICKSON CMP, 1988-02 #### [facility] ([id number]) [address] [place] [address] 56779 #### 34786-7 #### [facility] ([id number]) [address] [place] [address] Eosinophils (Bld) [#/Vol] 0.7 10*3/uL High 0.0-0.4 [facility] Comment on above: Performed By: #### Chanel ERICKSON CMP, 1988-02 #### [facility] ([id number]) [address] [place] [address] 14048 #### 44656-0 #### [facility] ([id number]) [address] [place] [address] Eosinophils/100 WBC (Bld) 5.3 % Normal [facility] Comment on above: Performed By: #### Chanel ERICKSON CMP, 1988-02 #### [facility] ([id number]) [address] [place] [address] 44602 #### 34693-9 #### [facility] ([id number]) [address], [address] [place] [address] Erythrocyte distribution width (RBC) [Ratio] 13.7 % Normal 11.5-15.0 [facility] Comment on above: Performed By: #### Chanel ERICKSON CMP, 1988-02 #### [facility] ([id number]) [address] [place] [address] 92226 #### 72735-8 #### [facility] ([id number]) [address], [address] [place] [address] Hematocrit (Bld) [Volume fraction] 37.8 % Normal 35-47 [facility] Comment on above: Performed By: #### Chanel ERICKSON CMP, 1988-02 #### [facility] ([id number]) [address] [place] [address] 91199 #### 30895-1 #### [facility] ([id number]) [address], [address] [place] [address] Hemoglobin (Bld) [Mass/Vol] 12.6 g/dL Normal 11.7-15.5 [facility] Comment on above: Performed By: #### Chanel ERICKSON CMP, 1988-02 #### [facility] ([id number]) [address] [place] [address] 40636 #### 32254-6 #### [facility] ([id number]) [address] [place] [address] Lymphocytes (Bld) [#/Vol] 2.4 10*3/uL Normal 1.0-3.5 [facility] Comment on above: Performed By: #### Chanel ERICKSON [facility], 1988-02 #### [facility] ([id number]) [address] [place] [address] 96388 #### [id number] #### [facility] ([id number]) [address], [address] [place] [address] Lymphocytes/100 WBC (Bld) 17.5 % Normal [facility] Comment on above: Performed By: #### Chanel ERICKSON CMP, 1986-02 #### [facility] ([id number]) [address] [place] [address] 66558 #### [id number] #### [facility] ([id number]) [address], [address] [place] [address] MCH (RBC) [Entitic mass] 28.8 pg Normal 27-34 [facility] Comment on above: Performed By: #### Chanel ERICKSON, CMP, 1988-02 #### [facility] ([id number]) [address] [place] [address] 83384 #### [id number] #### [facility] ([id number]) [address], [address] [place] [address] MCHC (RBC) [Mass/Vol] 33.4 g/dL Normal 32-36 [facility] Comment on above: Performed By: #### Chanel ERICKSON, CMP, 1988-02 #### [facility] ([id number]) [address] [place] [address] 73235 #### 34136-8 #### [facility] ([id number]) [address], [address] [place] [address] MCV (RBC) [Entitic vol] 86 fL Normal 80-100 [facility] Comment on above: Performed By: #### Chanel ERICKSON CMP, 1988-02 #### [facility] ([id number]) [address] [place] [address]129 #### 21059-9 #### [facility] ([id number]) [address] [place] [address] Monocytes (Bld) [#/Vol] 1.1 10*3/uL High 0-0.9 [facility] Comment on above: Performed By: #### Chanel ERICKSON, CMP, 1988-02 #### [facility] ([id number]) [address] [place] [address] 50642 #### 78481-4 #### [facility] ([id number]) [address] [place] [address] Monocytes/100 WBC (Bld) 8.0 % Normal [facility] Comment on above: Performed By: #### C BCA, CMP, 1988-02 #### [facility] ([id number]) [address] [place] [address] 06827 #### [id number] #### [facility] ([id number]) [address], [address] [place] [address] Neutrophils/100 WBC (Bld) 68.8 % Normal [facility] Comment on above: Performed By: #### Chanel ERICKSON [facility], 1988-02 #### [facility] ([id number]) [address] [place] [address] 80985 #### [id number] #### [facility] ([id number]) [address], [address] [place] [address] Platelet mean volume (Bld) [Entitic vol] 8.4 fL Normal 7-12 [facility] Comment on above: Performed By: #### Chanel ERICKSON [facility], 1988-02 #### [facility] ([id number]) [address] [place] [address] 10345 #### [id number] #### [facility] ([id number]) [address], [address] [place] [address] Platelets (Bld) [#/Vol] 321 10*3/uL Normal 150-450 [facility] Comment on above: Performed By: #### Chanel ERICKSON CMP, 1988-02 #### [facility] ([id number]) [address] [place] [address] 52219 #### 57369-4 #### [facility] ([id number]) [address], [address] [place] [address] RBC COUNT 4.38 X10E12/L Normal 3.80-5.20 [facility] Comment on above: Performed By: #### Chnael ERICKSON CMP, 1988-02 #### [facility] ([id number]) [address] [place] [address] 55274 #### 64438-8 #### [facility] ([id number]) [address] [facility], [address] [place] [address] WBC (Bld) [#/Vol] 13.7 10*3/uL High 4.0-11.0 [facility] Comment on above: Performed By: #### Chanel BCA, CMP, 1988-02 #### [facility] ([id number]) [address] [place] [address] 61400 #### 00472-8 #### [facility] ([id number]) [address] [facility], [address] [place] [address] COMPREHENSIVE METABOLIC PANE Tyrone 12-25-2023 Albumin [Mass/Vol] 3.3 g/dL Normal 3.2-5.3 [facility] Comment on above: Performed By: #### Chanel BCA, CMP, 1988-02 #### [facility] ([id number]) [address] [place] [address] 90647 #### [id number] #### [facility] ([id number]) [address] [facility], [address] [place] [address] ALP [Catalytic activity/Vol] 66 U/L Normal 39-130 [facility] Comment on above: Performed By: #### Chanel BCA, CMP, 1988-02 #### [facility] ([id number]) [address] [place] [address] 81741 #### 00924-6 #### [facility] ([id number]) [address] [facility], [address] [place] [address] ALT [Catalytic activity/Vol] 16 U/L Normal 0-31 [facility] Comment on above: Performed By: #### C BCA, CMP, 1988-02 #### [facility] ([id number]) [address] [place] [address] 94896 #### 56845-2 #### [facility] ([id number]) [address], [address] [place] [address] Anion gap [Moles/Vol] 10 mmol/L Normal 5-15 [facility] Comment on above: Performed By: #### Chanel ERICKSON CMP, 1988-02 #### [facility] ([id number]) [address] [place] [address] 76005 #### 03050-2 #### [facility] ([id number]) [address] [facility], [address] [place] [address] AST [Catalytic activity/Vol] 17 U/L Normal 0-41 [facility] Comment on above: Performed By: #### Chanel ERICKSON CMP, 1988-02 #### [facility] ([id number]) [address] [place] [address] 07041 #### 53585-1 #### [facility] ([id number]) [address] [facility], [address] [place] [address] Bilirubin [Mass/Vol] 0.5 mg/dL Normal 0.3-1.2 [facility] Comment on above: Performed By: #### Chanel ERICKSON CMP, 1988-02 #### [facility] ([id number]) [address] [place] [address] 25095 #### 21148-2 #### [facility] ([id number]) [address], [address] [place] [address] Calcium [Mass/Vol] 8.9 mg/dL Normal 8.5-10.5 [facility] Comment on above: Performed By: #### Chanel ERICKSON CMP, 1988-02 #### [facility] ([id number]) [address] [place] [address] 08624 #### 54524-7 #### [facility] ([id number]) [address], [address] [place] [address] Chloride [Moles/Vol] 98 mmol/L Normal 98-109 [facility] Comment on above: Performed By: #### C SEAN ERICKSON, 1988-02 #### [facility] ([id number]) [address] [place] [address] 97938 #### 25143-5 #### [facility] ([id number]) [address] [facility], [address] [place] [address] CO2 [Moles/Vol] 31 mmol/L Normal 22-32 [facility] Comment on above: Performed By: #### C SEAN ERICKSON, 1988-02 #### [facility] ([id number]) [address] [place] [address] 37823 #### 54906-1 #### [facility] ([id number]) [address] [facility], [address] [place] [address] Creatinine [Mass/Vol] 0.78 mg/dL Normal 0.40-1.00 [facility] Comment on above: Result Comment: METH OD TRACEABLE TO IDMS STANDARD Performed By: #### C SEAN ERICKSON, 1988-02 #### [facility] ([id number]) [address] [place] [address] 88559 #### 01392-1 #### [facility] ([id number]) [address], [address] [place] [address] GFR/1.73 sq M.predicted among non-blacks MDRD (S/P/Bld) [Vol rate/Area] 81 mL/min/{1.73_m2} Normal >59 [facility] Comment on above: Result Comment: Reported eGFR is based on the CKD-EPI 2020 equation that does not use a race coefficient. Performed By: #### C SEAN ERICKSON, 1988-02 #### [facility] ([id number]) [address] [place] [address] 53289 #### 52636-2 #### [facility] ([id number]) [address], [address] [place] [address] Glucose [Mass/Vol] 125 mg/dL High 65-99 [facility] Comment on above: Performed By: #### Chanel ERICKSON CMP, 1988-02 #### [facility] ([id number]) [address] [place] [address] 22579 #### 46367-3 #### [facility] ([id number]) [address] [facility], [address] [place] [address] Potassium [Moles/Vol] 3.5 mmol/L Normal 3.5-5.0 [facility] Comment on above: Performed By: #### Chanel ERICKSON CMP, 1988-02 #### [facility] ([id number]) [address] [place] [address] 68833 #### 39799-2 #### [facility] ([id number]) [address], [address] [place] [address] Protein [Mass/Vol] 7.7 g/dL Normal 6.0-8.0 [facility] Comment on above: Performed By: #### Chanel ERICKSON CMP, 1988-02 #### [facility] ([id number]) [address] [place] [address] 21293 #### 39452-8 #### [facility] ([id number]) [address], [address] [place] [address] Sodium [Moles/Vol] 139 mmol/L Normal 134-146 [facility] Comment on above: Performed By: #### Chanel ERICKSON CMP, 1988-02 #### [facility] ([id number]) [address] [place] [address] #### 58344-8 #### [facility] ([id number]) [address] [facility], [address] [place] [address] Urea nitrogen [Mass/Vol] 19 mg/dL Normal 5-27 [facility] Comment on above: Performed By: #### Chanel ERICKSON [facility], 1988-02 #### [facility] ([id number]) [address] [place] [address] 50229 #### 61856-1 #### [facility] ([id number]) [address] [facility], [address] [place] [address] CRP [Mass/Vol]on 12-25-2023 C REACTIVE PROTEIN 8.6 mg/dL High 0.000-0.744 [facility] Comment on above: Performed By: #### Chanel ERICKSON [facility], 1988-02 #### [facility] ([id number]) [address] [place] [address] 57615 #### 12998-9 #### [facility] ([id number]) [address] [facility], [address] [address] ESR Photometric method (Bld) [Velocity]on 12-25-2023 ESR, ERYTHROCYTE SEDIMENTATION RATE 85 mm/h High 0-30 [facility] Comment on above: Performed By: #### Chanel ERICKSON [facility], 1988-02 #### [facility] ([id number]) [address] [place] [address] 50527 #### 54359-5 #### [facility] ([id number]) [address] [facility], [address] [place] [address] Glucose Glucometer (BldC) [M ass/Vol]on 12-25-2023 Glucose [Mass/Vol] 171 mg/dL High 65-99 [facility] Glucose [Mass/Vol] 125 mg/dL High 65-99 [facility] Glucose [Mass/Vol] 154 mg/dL High 65-99 [facility] MAGNESIUMon 12-25-2023 Magnesium [Mass/Vol] 2.4 mg/dL Normal 1.8-2.6 [facility] Comment on above: Performed By: #### Chanel ERICKSON CMP, 1988-02 #### [facility] ([id number]) [address] [place] [address] 97126 #### 27894-2 #### [facility] ([id number]) [address] [facility], [address] [place] [address] POTASSIUMon 12-25-2023 Potassium [Moles/Vol] 4.2 mmol/L Normal 3.5-5.0 [facility] Comment on above: Performed By: #### Chanel ERICKSON [facility], 1988-02 #### [facility] ([id number]) [address] [place] [address] 84566 #### 35157-8 #### [facility] ([id number]) [address] [facility], [address] [place] [address] PROTIME AND INRon 12-25-2023 INR Coag (PPP) [Relative time] 2.6 {INR} High 0.8-1.1 [facility] Comment on above: Performed By: #### Chanel ERICKSON [facility], 1988-02 #### [facility] ([id number]) [address] [place] [address] 02009 #### 64730-0 #### [facility] ([id number]) [address] [facility], [address] [place] [address] PT Coag (PPP) [Time] 29.7 s High 9.8-13.2 [facility] Comment on above: Result Comment: NEW REFERENCE [facility] Performed By: #### Chanel ERICKSON CMP, 1988-02 #### [facility] ([id number]) [address] [place] [address] 04516 #### 62317-4 #### [facility] ([id number]) [address] [facility], [address] [place] [address] URIC ACIDon 12-25-2023 Urate [Mass/Vol] 8.9 mg/dL High 2.6-7.2 [facility] Comment on above: Performed By: #### C BCA, CMP, 1987- #### [facility] ([id number]) [address] [place] [address] 73616 #### 05699-5 #### [facility] ([id number]) [address] [facility], [address] [place] [address] XR CHEST 1 VWon 12-25-2023 XR CHEST [...] Wood MD on 12/25/2023 11:21 AM Normal [facility] XR FOOT RT 2 VWSon 4 XR [...] Araujo MD on 12/25/2023 2:59 PM Normal [facility] CBC AND AUTO DIFFon 12-24-19 ABSOLUTE BASOPHIL 0.1 X10E9/L Normal 0.0-0.2 [facility] Comment on above: Performed By: #### Chanel ERICKSON CMP, 1988-02 #### [facility] ([id number]) [address] [place] [address] 96407 #### 02806-9 #### [facility] ([id number]) [address] [facility], [address] [place] [address] ABSOLUTE NEUTROPHIL 10.2 X10E9/L High 1.5-6.6 [facility] Comment on above: Performed By: #### Chanel ERICKSON CMP, 1988-02 #### [facility] ([id number]) [address] [place] [address] 13652 #### 52483-0 #### [facility] ([id number]) [address] [facility], [address] [place] [address] Basophils/100 WBC (Bld) 0.5 % Normal [facility] Comment on above: Performed By: #### Chanel ERICKSON CMP, 1988-02 #### [facility] ([id number]) [address] [place] [address] 13435 #### 44899-9 #### [facility] ([id number]) [address] [facility], [address] [place] [address] Eosinophils (Bld) [#/Vol] 0.9 10*3/uL High 0.0-0.4 [facility] Comment on above: Performed By: #### Chanel ERICKSON CMP, 1988-02 #### [facility] ([id number]) [address] [place] [address] 96191 #### 45548-2 #### [facility] ([id number]) [address], [address] [place] [address] Eosinophils/100 WBC (Bld) 6.2 % Normal [facility] Comment on above: Performed By: #### Chanel ERICKSON CMP, 1988-02 #### [facility] ([id number]) [address] [place] [address] 56171 #### 12932-2 #### [facility] ([id number]) [address], [address] [place] [address] Erythrocyte distribution width (RBC) [Ratio] 14.1 % Normal 11.5-15.0 [facility] Comment on above: Performed By: #### Chanel ERICKSON CMP, 1988-02 #### [facility] ([id number]) [address] [place] [address] 42679 #### 02280-9 #### [facility] ([id number]) [address], [address] [place] [address] Hematocrit (Bld) [Volume fraction] 37.3 % Normal 35-47 [facility] Comment on above: Performed By: #### Chanel ERICKSON CMP, 1988-02 #### [facility] ([id number]) [address] [place] [address] 49231 #### 06709-8 #### [facility] ([id number]) [address], [address] [place] [address] Hemoglobin (Bld) [Mass/Vol] 12.4 g/dL Normal 11.7-15.5 [facility] Comment on above: Performed By: #### Chanel ERICKSON CMP, 1988-02 #### [facility] ([id number]) [address] [place] [address] 41340 #### 29493-9 #### [facility] ([id number]) [address], [address] [place] [address] Lymphocytes (Bld) [#/Vol] 2.2 10*3/uL Normal 1.0-3.5 [facility] Comment on above: Performed By: #### Chanel ERICKSON CMP, 1988-02 #### [facility] ([id number]) [address] [place] [address] 94780 #### 94797-1 #### [facility] ([id number]) [address], [address] [place] [address] Lymphocytes/100 WBC (Bld) 15.4 % Normal [facility] Comment on above: Performed By: #### Chanel ERICKSON CMP, 1988-02 #### [facility] ([id number]) [address] [place] [address] 01187 #### 11127-5 #### [facility] ([id number]) [address], [address] [place] [address] MCH (RBC) [Entitic mass] 29.0 pg Normal 27-34 [facility] Comment on above: Performed By: #### Chanel ERICKSON CMP, 1988-02 #### [facility] ([id number]) [address] [place] [address] 36934 #### 23664-3 #### [facility] ([id number]) [address], [address] [place] [address] MCHC (RBC) [Mass/Vol] 33.3 g/dL Normal 32-36 [facility] Comment on above: Performed By: #### Chanel ERICKSON CMP, 1988-02 #### [facility] ([id number]) [address] [place] [address] 91586 #### 82399-9 #### [facility] ([id number]) [address], [address] [place] [address] MCV (RBC) [Entitic vol] 87 fL Normal 80-100 [facility] Comment on above: Performed By: #### Chanel ERICKSON CMP, 1988-02 #### [facility] ([id number]) [address] [place] [address] 78603 #### 16588-9 #### [facility] ([id number]) [address] [place] [address] Monocytes (Bld) [#/Vol] 0.7 10*3/uL Normal 0-0.9 [facility] Comment on above: Performed By: #### Chanel ERICKSON, CMP, 1988-02 #### [facility] ([id number]) [address] [place] [address] 42569 #### 76017-6 #### [facility] ([id number]) [address] [place] [address] Monocytes/100 WBC (Bld) 5.3 % Normal [facility] Comment on above: Performed By: #### Chanel ERICKSON CMP, 1988-02 #### [facility] ([id number]) [address] [place] [address] 05599 #### 28682-5 #### [facility] ([id number]) [address] [place] [address] Neutrophils/100 WBC (Bld) 72.6 % Normal [facility] Comment on above: Performed By: #### Chanel ERICKSON, CMP, 1988-02 #### [facility] ([id number]) [address] [place] [address] 44156 #### 90510-0 #### [facility] ([id number]) [address] [place] [address] Platelet mean volume (Bld) [Entitic vol] 8.6 fL Normal 7-12 [facility] Comment on above: Performed By: #### Chanel ERICKSON CMP, 1988-02 #### [facility] ([id number]) [address] [place] [address] 92736 #### 32187-6 #### [facility] ([id number]) [address] [facility], [address] [place] [address] Platelets (Bld) [#/Vol] 339 10*3/uL Normal 150-450 [facility] Comment on above: Performed By: #### C DRE, CMP, 1988-02 #### [facility] ([id number]) [address] [place] [address] 78451 #### 60656-5 #### [facility] ([id number]) [address] [facility], [address] [place] [address] RBC COUNT 4.29 X10E12/L Normal 3.80-5.20 [facility] Comment on above: Performed By: #### C SEAN ERICKSON, 1988-02 #### [facility] ([id number]) [address] [place] [address] 35627 #### 64519-3 #### [facility] ([id number]) [address] [place] [address], [address] [place] [address] WBC (Bld) [#/Vol] 14.1 10*3/uL High 4.0-11.0 [facility] Comment on above: Performed By: #### C DRE, CMP, 1988-02 #### [facility] ([id number]) [address] [place] [address] 39435 #### 45565-4 #### [facility] ([id number]) [address] [facility], [address] [place] [address] COMPREHENSIVE METABOLIC PANE Tyrone 12-24-2023 Albumin [Mass/Vol] 3.4 g/dL Normal 3.2-5.3 [facility] Comment on above: Performed By: #### C BCA, CMP, 1988-02 #### [facility] ([id number]) [address] [place] [address] 61921 #### 33756-8 #### [facility] ([id number]) [address] [place] [address] ALP [Catalytic activity/Vol] 67 U/L Normal 39-130 [facility] Comment on above: Performed By: #### Chanel BCA, CMP, 1988-02 #### [facility] ([id number]) [address] [place] [address] 73568 #### 97691-9 #### [facility] ([id number]) [address] [place] [address] ALT [Catalytic activity/Vol] 13 U/L Normal 0-31 [facility] Comment on above: Performed By: #### Chanel BCA, [facility], 1988-02 #### [facility] ([id number]) [address] [place] [address] 79693 #### 69540-0 #### [facility] ([id number]) [address] [place] [address] Anion gap [Moles/Vol] 11 mmol/L Normal 5-15 [facility] Comment on above: Performed By: #### Chanel BCA, CMP, 1988-02 #### [facility] ([id number]) [address] [place] [address] 26304 #### 31276-0 #### [facility] ([id number]) [address] [place] [address] AST [Catalytic activity/Vol] 16 U/L Normal 0-41 [facility] Comment on above: Performed By: #### Chanel BCA, CMP, 1988-02 #### [facility] ([id number]) [address] [place] [address] #### 87607-7 #### [facility] ([id number]) [address], [address] [place] [address] Bilirubin [Mass/Vol] 0.4 mg/dL Normal 0.3-1.2 [facility] Comment on above: Performed By: #### Chanel ERICKSON CMP, 1988-02 #### [facility] ([id number]) [address] [place] [address] 54194 #### 48989-8 #### [facility] ([id number]) [address] [place] [address] Calcium [Mass/Vol] 8.9 mg/dL Normal 8.5-10.5 [facility] Comment on above: Performed By: #### Chanel ERICKSON CMP, 1988-02 #### [facility] ([id number]) [address] [place] [address] 14232 #### 37740-9 #### [facility] ([id number]) [address] [place] [address] Chloride [Moles/Vol] 99 mmol/L Normal 98-109 [facility] Comment on above: Performed By: #### Chanel ERICKSON CMP, 1988-02 #### [facility] ([id number]) [address] [place] [address] 95070 #### 09189-4 #### [facility] ([id number]) [address], [address] [place] [address] CO2 [Moles/Vol] 30 mmol/L Normal 22-32 [facility] Comment on above: Performed By: #### Chanel BCA, CMP, 1988-02 #### [facility] ([id number]) [address] [place] [address] 88701 #### 02085-3 #### [facility] ([id number]) [address], [address] [place] [address] Creatinine [Mass/Vol] 0.83 mg/dL Normal 0.40-1.00 [facility] Comment on above: Result Comment: METH OD TRACEABLE TO IDMS STANDARD Performed By: #### C DRE [facility], 1988-02 #### [facility] ([id number]) [address] [place] [address] #### 12103-0 #### [facility] ([id number]) [address], [address] [place] [address] GFR/1.73 sq M.predicted among non-blacks MDRD (S/P/Bld) [Vol rate/Area] 75 mL/min/{1.73_m2} Normal >59 [facility] Comment on above: Result Comment: Reported eGFR is based on the CKD-EPI 2020 equation that does not use a race coefficient. Performed By: #### C DRE [facility], 1988-02 #### [facility] ([id number]) [address] [place] [address] 28816 #### 16421-3 #### [facility] ([id number]) [address] [place] [address] Glucose [Mass/Vol] 137 mg/dL High 65-99 [facility] Comment on above: Performed By: #### C DRE [facility], 1988-02 #### [facility] ([id number]) [address] [place] [address] #### 66568-7 #### [facility] ([id number]) [address] [place] [address] Potassium [Moles/Vol] 3.8 mmol/L Normal 3.5-5.0 [facility] Comment on above: Performed By: #### Chanel ERICKSON [facility], 1988-02 #### [facility] ([id number]) [address] [place] [address] 92852 #### 45862-0 #### [facility] ([id number]) [address] [facility] [place] [address] Protein [Mass/Vol] 7.9 g/dL Normal 6.0-8.0 [facility] Comment on above: Performed By: #### Chanel ERICKSON CMP, 1986-02 #### [facility] ([id number]) [address] [place] [address] #### [id number] #### [facility] ([id number]) [address] [facility] [place] [address] Sodium [Moles/Vol] 140 mmol/L Normal 134-146 [facility] Comment on above: Performed By: #### Chanel ERICKSON CMP, 1986-02 #### [facility] ([id number]) [address] [place] [id number] #### [id number] #### [facility] ([id number]) [address] [facility] [place] [address] Urea nitrogen [Mass/Vol] 18 mg/dL Normal 5-27 [facility] Comment on above: Performed By: #### Chanel ERICKSON CMP, 1986-02 #### [facility] ([id number]) [address] [place] [address] #### [id number] #### [facility] ([id number]) [address] [facility] [place] [address] Glucose Glucometer (BldC) [M ass/Vol]on 12-24-2023 Glucose [Mass/Vol] 136 mg/dL High 65-99 [facility] Glucose [Mass/Vol] 123 mg/dL High 65-99 [facility] Glucose [Mass/Vol] 152 mg/dL High 65-99 [facility] MAGNESIUMon 12-24-2023 Magnesium [Mass/Vol] 2.2 mg/dL Normal 1.8-2.6 [facility] Comment on above: Performed By: #### Chanel ERICKSON [facility], 1986-02 #### [facility] ([id number]) [address] [place] [address] #### [id number] #### [facility] ([id number]) [address] [place] [address], [address] [place] [address] POTASSIUMon 12-24-2023 Potassium [Moles/Vol] 4.0 mmol/L Normal 3.5-5.0 [facility] Comment on above: Performed By: #### Chanel ERICKSON [facility], 1986-02 #### [facility] ([id number]) [address] [place] [address]10 #### [id number] #### [facility] ([id number]) [facility]ly [facility] [facility], [address] [place] [address] PROTIME AND INRon 12-24-2023 INR Coag (PPP) [Relative time] 2.8 {INR} High 0.8-1.1 [facility] Comment on above: Performed By: #### Chanel ERICKSON [facility], 1986-02 #### [facility] ([id number]) [address] [place] [address] #### [id number] #### [facility] ([id number]) [facility] [facility], [address] [place] [address] PT Coag (PPP) [Time] 30.9 s High 9.8-13.2 [facility] Comment on above: Result Comment: NEW REFERENCE RANGE Performed By: #### Chanel ERICKSON CMP, 1986-02 #### [facility] ([id number]) [address] [place] [address] #### [id number] #### [facility] ([id number]) [address] [facility] [facility] [place] [address] Vancomycin trough [Mass/Vol] on 12-24-2023 VANCOMYCIN TROUGH 11.4 ug/mL Normal 5.0-20.0 [facility] Comment on above: Performed By: #### C DRE, CMP, 1986-02 #### [facility] ([id number]) [address] [place] [address] #### [id number] #### [facility] ([id number]) [address] [facility], [address] [place] [address] CBC AND AUTO DIFFon 12-23-19 24 ABSOLUTE BASOPHIL 0.1 X10E9/L Normal 0.0-0.2 [facility] Comment on above: Performed By: #### C BCA, PINR, CMP, ####[facility] ([id number])[address] [place] [address] 03882 ABSOLUTE NEUTROPHIL 10.1 X10E9/L High 1.5-6.6 [facility] Comment on above: Performed By: #### C BCA, PINR, CMP, ####[facility] ([id number])[address] [place] [address] 04167 Basophils/100 WBC (Bld) 1.0 % Normal [facility] Comment on above: Performed By: #### C BCA, PINR, CMP, ####[facility] ([id number])[address] [place] [address] 78975 Eosinophils (Bld) [#/Vol] 0.8 10*3/uL High 0.0-0.4 [facility] Comment on above: Performed By: #### C BCA, PINR, CMP, ####[facility] ([id number])[address] [place] [address] Eosinophils/100 WBC (Bld) 5.8 % Normal [facility] Comment on above: Performed By: #### C BCA, PINR, CMP, ####[facility] ([id number])[address] [place] [address] 51015 Erythrocyte distribution width (RBC) [Ratio] 13.8 % Normal 11.5-15.0 [facility] Comment on above: Performed By: #### C BCA, PINR, CMP, ####[facility] ([id number])[address] [place] [address] 20482 Hematocrit (Bld) [Volume fraction] 36.1 % Normal 35-47 [facility] Comment on above: Performed By: #### C BCA, PINR, CMP, ####[facility] ([id number])[address] [place] [address] 41797 Hemoglobin (Bld) [Mass/Vol] 12.1 g/dL Normal 11.7-15.5 [facility] Comment on above: Performed By: #### C BCA, PINR, CMP, ####[facility] ([id number])[address] [place] [address] 52383 Lymphocytes (Bld) [#/Vol] 2.4 10*3/uL Normal 1.0-3.5 [facility] Comment on above: Performed By: #### C BCA, PINR, CMP, ####[facility] ([id number])[address] [place] [address] 22636 Lymphocytes/100 WBC (Bld) 16.6 % Normal [facility] Comment on above: Performed By: #### C BCA, PINR, CMP, ####[facility] ([id number])[address] [place] [address] 14282 MCH (RBC) [Entitic mass] 29.0 pg Normal 27-34 [facility] Comment on above: Performed By: #### C DRE PINR, CMP, ####[facility] ([id number])[address] [place] [address] 59029 MCHC (RBC) [Mass/Vol] 33.6 g/dL Normal 32-36 [facility] Comment on above: Performed By: #### C DRE, PINR, CMP, ####[facility] ([id number])[address] [place] [address] 31527 MCV (RBC) [Entitic vol] 86 fL Normal 80-100 [facility] Comment on above: Performed By: #### Chanel ERICKSON, PINR, CMP, ####[facility] ([id number])[address] [place] [address] 97560 Monocytes (Bld) [#/Vol] 1.1 10*3/uL High 0-0.9 [facility] Comment on above: Performed By: #### Chanel ERICKSON, PINR, CMP, ####[facility] ([id number])[address] [place] [address] 13338 Monocytes/100 WBC (Bld) 7.3 % Normal [facility] Comment on above: Performed By: #### Chanel ERICKSON, PINR, CMP, ####[facility] ([id number])[address] [place] [address] 60562 Neutrophils/100 WBC (Bld) 69.3 % Normal [facility] Comment on above: Performed By: #### Chanel ERICKSON, PINR, CMP, ####[facility] ([id number])[address] [place] [address] 17453 Platelet mean volume (Bld) [Entitic vol] 8.5 fL Normal 7-12 [facility] Comment on above: Performed By: #### C BCA, PINR, CMP, 88541-8 ####[facility] ([id number])[address] [place] [address] 44710 Platelets (Bld) [#/Vol] 286 10*3/uL Normal 150-450 [facility] Comment on above: Performed By: #### C BCA, PINR, CMP, ####[facility] ([id number])[address] [place] [address] 37267 RBC COUNT 4.19 X10E12/L Normal 3.80-5.20 [facility] Comment on above: Performed By: #### C BCA, PINR, CMP, ####[facility] ([id number])[address] [place] [address] 65293 WBC (Bld) [#/Vol] 14.6 10*3/uL High 4.0-11.0 [facility] Comment on above: Performed By: #### C BCA, PINR, CMP, ####[facility] ([id number])[address] [place] [address] 58211 COMPREHENSIVE METABOLIC PANE Tyrone 12-23-2023 Albumin [Mass/Vol] 3.1 g/dL Low 3.2-5.3 [facility] Comment on above: Performed By: #### Chanel BCA, CMP, 1988-02 #### [facility] ([id number]) [address] [place] [address] 55771 #### 00198-8 #### [facility] ([id number]) [address] [place] [address], [address] [place] [address] ALP [Catalytic activity/Vol] 60 U/L Normal 39-130 [facility] Comment on above: Performed By: #### Chanel BCA, CMP, 1986-02 #### [facility] ([id number]) [address] [place] [address] 95486 #### 97215-2 #### [facility] ([id number]) [address], [address] [place] [address] ALT [Catalytic activity/Vol] 12 U/L Normal 0-31 [facility] Comment on above: Performed By: #### Chanel ERICKSON CMP, 1988-02 #### [facility] ([id number]) [address] [place] [address] 80096 #### 28442-0 #### [facility] ([id number]) [address] [facility] [place] [address] Anion gap [Moles/Vol] 9 mmol/L Normal 5-15 [facility] Comment on above: Performed By: #### Chanel ERICKSON CMP, 1988-02 #### [facility] ([id number]) [address] [place] [address] 19469 #### 03248-9 #### [facility] ([id number]) [address] [facility], [address] [place] [address] AST [Catalytic activity/Vol] 14 U/L Normal 0-41 [facility] Comment on above: Performed By: #### Chanel ERICKSON CMP, 1988-02 #### [facility] ([id number]) [address] [place] [address] 34265 #### 06759-6 #### [facility] ([id number]) [address] [facility] [place] [address] Bilirubin [Mass/Vol] 0.6 mg/dL Normal 0.3-1.2 [facility] Comment on above: Performed By: #### Chanel ERICKSON CMP, 1988-02 #### [facility] ([id number]) [address] [place] [address] 66657 #### 99008-2 #### [facility] ([id number]) [address], [address] [place] [address] Calcium [Mass/Vol] 8.5 mg/dL Normal 8.5-10.5 [facility] Comment on above: Performed By: #### C DRE, CMP, 1988-02 #### [facility] ([id number]) [address] [place] [address] 00296 #### 19621-4 #### [facility] ([id number]) [address], [address] [place] [address] Chloride [Moles/Vol] 99 mmol/L Normal 98-109 [facility] Comment on above: Performed By: #### C DRE CMP, 1988-02 #### [facility] ([id number]) [address] [place] [address] 41914 #### 93493-4 #### [facility] ([id number]) [address], [address] [place] [address] CO2 [Moles/Vol] 28 mmol/L Normal 22-32 [facility] Comment on above: Performed By: #### C DRE, CMP, 1988-02 #### [facility] ([id number]) [address] [place] [address] 63328 #### 38967-4 #### [facility] ([id number]) [address], [address] [place] [address] Creatinine [Mass/Vol] 0.75 mg/dL Normal 0.40-1.00 [facility] Comment on above: Result Comment: METH OD TRACEABLE TO IDMS STANDARD Performed By: #### C BCA, CMP, 1988-02 #### [facility] ([id number]) [address] [place] [address] 12569 #### 39655-3 #### [facility] ([id number]) [address], [address] [place] [address] GFR/1.73 sq M.predicted among non-blacks MDRD (S/P/Bld) [Vol rate/Area] 85 mL/min/{1.73_m2} Normal >59 [facility] Comment on above: Result Comment: Reported eGFR is based on the CKD-EPI 2020 equation that does not use a race coefficient. Performed By: #### Chanel ERICKSON CMP, 1988-02 #### [facility] ([id number]) [address] [place] [address] 65227 #### 76964-3 #### [facility] ([id number]) [address], [address] [place] [address] Glucose [Mass/Vol] 122 mg/dL High 65-99 [facility] Comment on above: Performed By: #### Chanel ERICKSON CMP, 1988-02 #### [facility] ([id number]) [address] [place] [address] 24208 #### 79567-1 #### [facility] ([id number]) [address], [address] [place] [address] Potassium [Moles/Vol] 3.5 mmol/L Normal 3.5-5.0 [facility] Comment on above: Performed By: #### Chanel ERICKSON CMP, 1988-02 #### [facility] ([id number]) [address] [place] [address] 42524 #### 72251-8 #### [facility] ([id number]) [address], [address] [place] [address] Protein [Mass/Vol] 7.3 g/dL Normal 6.0-8.0 [facility] Comment on above: Performed By: #### Chanel ERICKSON CMP, 1988-02 #### [facility] ([id number]) [address] [place] [address] 68028 #### 55475-1 #### [facility] ([id number]) [address], [address] [place] [address] Sodium [Moles/Vol] 136 mmol/L Normal 134-146 [facility] Comment on above: Performed By: #### Chanel ERICKSON CMP, 1988-02 #### [facility] ([id number]) [address] [place] [address] 52365 #### 28335-0 #### [facility] ([id number]) [address], [address] [place] [address] Urea nitrogen [Mass/Vol] 15 mg/dL Normal 5-27 [facility] Comment on above: Performed By: #### Chanel ERICKSON CMP, 1988-02 #### [facility] ([id number]) [address] [place] [address] 30735 #### 41942-6 #### [facility] ([id number]) [address], [address] [place] [address] Glucose Glucometer (BldC) [M ass/Vol]on 12-23-2023 Glucose [Mass/Vol] 158 mg/dL High 65-99 [facility] Glucose [Mass/Vol] 141 mg/dL High 65-99 [facility] HGB A1C (GLYCO-HGB)on 2023 Glucose [Mass/Vol] 140 mg/dL Normal [facility] Comment on above: Performed By: #### Chanel ERICSKON CMP, 1988-02 #### [facility] ([id number]) [address] [place] [address] 15357 #### 03968-2 #### [facility] ([id number]) [address], [address] [place] [address] HbA1c (Bld) [Mass fraction] 6.5 % High 4.4-5.6 [facility] Comment on above: Result Comment: NOTE ADA Guidelines Result HgbA1c Normal : less than 5.7 % Prediabetes : 5.7 % to 6.4 % Diabetes : > 6.4 % Use with caution in patients with abnormal hemoglobin variants as the half-life of red blood cells and in vivo glycation rates are affected. Performed By: #### C DRE [facility], 1988-02 #### [facility] ([id number]) [address] [place] [address] 24971 #### 05578-2 #### [facility] ([id number]) [address] [facility] [place] [address] MAGNESIUMon 12-23-2023 Magnesium [Mass/Vol] 2.0 mg/dL Normal 1.8-2.6 [facility] Comment on above: Performed By: #### Chanel ERICKSON [facility], 1988-02 #### [facility] ([id number]) [address] [place] [address] 37850 #### 90530-3 #### [facility] ([id number]) [address] [facility] [place] [address] POTASSIUMon 12-23-2023 Potassium [Moles/Vol] 4.4 mmol/L Normal 3.5-5.0 [facility] Comment on above: Performed By: #### Chanel ERICKSON [facility], 1988-02 #### [facility] ([id number]) [address] [place] [address] 39080 #### 44776-4 #### [facility] ([id number]) [address] [facility] [place] [address] PROTIME AND INRon 12-23-2023 INR Coag (PPP) [Relative time] 2.7 {INR} High 0.8-1.1 [facility] Comment on above: Performed By: #### C BCA, PINR, CMP, ####[facility] ([id number])[address] [place] [address] 56439 PT Coag (PPP) [Time] 29.9 s High 9.8-13.2 [facility] Comment on above: Result Comment: NEW REFERENCE RANGE Performed By: #### C BCA, PINR, CMP, ####[facility] ([id number])[address] [place] [address] 67445 CBC AND AUTO DIFFon 12-22-19 24 ABSOLUTE BASOPHIL 0.2 X10E9/L Normal 0.0-0.2 [facility] Comment on above: Performed By: #### P INR, CMP, , CBCA ####[facility] ([id number])[address] [place] [address] 60683 ABSOLUTE NEUTROPHIL 10.5 X10E9/L High 1.5-6.6 [facility] Comment on above: Performed By: #### P INR, CMP, , CBCA ####[facility] ([id number])[address] [place] [address] 86705 Basophils/100 WBC (Bld) 1.0 % Normal [facility] Comment on above: Performed By: #### P INR, CMP, , CBCA ####[facility] ([id number])[address] [place] [address] 66384 Eosinophils (Bld) [#/Vol] 1.1 10*3/uL High 0.0-0.4 [facility] Comment on above: Performed By: #### P INR, CMP, , CBCA ####[facility] ([id number])[address] [place] [address] 15038 Eosinophils/100 WBC (Bld) 6.9 % Normal [facility] Comment on above: Performed By: #### P INR, CMP, , CBCA ####[facility] ([id number])[address] [place] [address] 37710 Erythrocyte distribution width (RBC) [Ratio] 13.7 % Normal 11.5-15.0 [facility] Comment on above: Performed By: #### P INR, CMP, , CBCA ####[facility] ([id number])[address] [place] [address] 39653 Hematocrit (Bld) [Volume fraction] 34.0 % Low 35-47 [facility] Comment on above: Performed By: #### P INR, CMP, , CBCA ####[facility] ([id number])[address] [place] [address] 78119 Hemoglobin (Bld) [Mass/Vol] 11.4 g/dL Low 11.7-15.5 [facility] Comment on above: Performed By: #### P INR, CMP, , CBCA ####[facility] ([id number])[address] [place] [address] 20711 Lymphocytes (Bld) [#/Vol] 3.5 10*3/uL Normal 1.0-3.5 [facility] Comment on above: Performed By: #### P INR, CMP, , CBCA ####[facility] ([id number])[address] [place] [address] 04859 Lymphocytes/100 WBC (Bld) 21.4 % Normal [facility] Comment on above: Performed By: #### P INR, CMP, , CBCA ####[facility] ([id number])[address] [place] [address] 94469 MCH (RBC) [Entitic mass] 29.1 pg Normal 27-34 [facility] Comment on above: Performed By: #### P INR, CMP, , CBCA ####[facility] ([id number])[address] [place] [address] 34158 MCHC (RBC) [Mass/Vol] 33.6 g/dL Normal 32-36 [facility] Comment on above: Performed By: #### P INR, CMP, , CBCA ####[facility] ([id number])[address] [place] [address] 18173 MCV (RBC) [Entitic vol] 87 fL Normal 80-100 [facility] Comment on above: Performed By: #### P INR, CMP, , CBCA ####[facility] ([id number])[address] [place] [address] 62430 Monocytes (Bld) [#/Vol] 0.9 10*3/uL Normal 0-0.9 [facility] Comment on above: Performed By: #### P INR, CMP, , CBCA ####[facility] ([id number])[address] [place] [address] 13194 Monocytes/100 WBC (Bld) 5.8 % Normal [facility] Comment on above: Performed By: #### P INR, CMP, , CBCA ####[facility] ([id number])[address] [place] [address] 54106 Neutrophils/100 WBC (Bld) 64.9 % Normal [facility] Comment on above: Performed By: #### P INR, CMP, , CBCA ####[facility] ([id number])[address] [place] [address] 18430 Platelet mean volume (Bld) [Entitic vol] 8.8 fL Normal 7-12 [facility] Comment on above: Performed By: #### P INR, CMP, , CBCA ####[facility] ([id number])[address] [place] [address] 09718 Platelets (Bld) [#/Vol] 258 10*3/uL Normal 150-450 [facility] Comment on above: Performed By: #### P INR, CMP, , CBCA ####[facility] ([id number])[address] [place] [address] 24643 RBC COUNT 3.92 X10E12/L Normal 3.80-5.20 [facility] Comment on above: Performed By: #### P INR, CMP, , CBCA ####[facility] ([id number])[address] [place] [address] 07515 WBC (Bld) [#/Vol] 16.2 10*3/uL High 4.0-11.0 [facility] Comment on above: Performed By: #### P INR, CMP, , CBCA ####[facility] ([id number])[address] [place] [address] 99245 COMPREHENSIVE METABOLIC PANE Tyrone 12-22-2023 Albumin [Mass/Vol] 3.4 g/dL Normal 3.2-5.3 [facility] Comment on above: Performed By: #### P INR, CMP, , CBCA ####[facility] ([id number])[address] [place] [address] 03804 ALP [Catalytic activity/Vol] 59 U/L Normal 39-130 [facility] Comment on above: Performed By: #### P INR, CMP, , CBCA ####[facility] ([id number])[address] [place] [address] 06559 ALT [Catalytic activity/Vol] 11 U/L Normal 0-31 [facility] Comment on above: Performed By: #### P INR, CMP, , CBCA ####[facility] ([id number])[address] [place] [address] 67712 Anion gap [Moles/Vol] 11 mmol/L Normal 5-15 [facility] Comment on above: Performed By: #### P INR, CMP, , CBCA ####[facility] ([id number])[address] [place] [address] 18124 AST [Catalytic activity/Vol] 14 U/L Normal 0-41 [facility] Comment on above: Performed By: #### P INR, CMP, , CBCA ####[facility] ([id number])[address] [place] [address] 39779 Bilirubin [Mass/Vol] 0.8 mg/dL Normal 0.3-1.2 [facility] Comment on above: Performed By: #### P INR, CMP, , CBCA ####[facility] ([id number])[address] [place] [address] 95304 Calcium [Mass/Vol] 8.5 mg/dL Normal 8.5-10.5 [facility] Comment on above: Performed By: #### P INR, CMP, , CBCA ####[facility] ([id number])[address] [place] [address] 15645 Chloride [Moles/Vol] 98 mmol/L Normal 98-109 [facility] Comment on above: Performed By: #### P INR, CMP, , CBCA ####[facility] ([id number])[address] [place] [address] 46625 CO2 [Moles/Vol] 26 mmol/L Normal 22-32 [facility] Comment on above: Performed By: #### P INR, CMP, , CBCA ####[facility] ([id number])[address] [place] [address] 23193 Creatinine [Mass/Vol] 0.78 mg/dL Normal 0.40-1.00 [facility] Comment on above: Result Comment: METH OD TRACEABLE TO IDMS STANDARD Performed By: #### P INR, CMP, , CBCA ####[facility] ([id number])[address] [place] [address] 25651 GFR/1.73 sq M.predicted among non-blacks MDRD (S/P/Bld) [Vol rate/Area] 81 mL/min/{1.73_m2} Normal >59 [facility] Comment on above: Result Comment: Reported eGFR is based on the CKD-EPI 2020 equation that does not use a race coefficient. Performed By: #### P INR, CMP, , CBCA ####[facility] ([id number])[address] [place] [address] 19170 Glucose [Mass/Vol] 121 mg/dL High 65-99 [facility] Comment on above: Performed By: #### P INR, CMP, , CBCA ####[facility] ([id number])[address] [place] [address] 19668 Potassium [Moles/Vol] 3.5 mmol/L Normal 3.5-5.0 [facility] Comment on above: Performed By: #### P INR, CMP, , CBCA ####[facility] ([id number])[address] [place] [address] 59892 Protein [Mass/Vol] 7.2 g/dL Normal 6.0-8.0 [facility] Comment on above: Performed By: #### P INR, CMP, , CBCA ####[facility] ([id number])[address], [place] [address] Sodium [Moles/Vol] 135 mmol/L Normal 134-146 [facility] Comment on above: Performed By: #### P INR, CMP, , CBCA ####[facility] ([id number])[address] [place] [address] 13941 Urea nitrogen [Mass/Vol] 15 mg/dL Normal 5-27 [facility] Comment on above: Performed By: #### P INR, CMP, , CBCA ####[facility] ([id number])[address] [place] [address] 68904 Glucose Glucometer (BldC) [M ass/Vol]on 12-22-2023 Glucose [Mass/Vol] 147 mg/dL High 65-99 [facility] Glucose [Mass/Vol] 136 mg/dL High 65-99 [facility] Glucose [Mass/Vol] 120 mg/dL High 65-99 [facility] MAGNESIUMon 12-22-2023 Magnesium [Mass/Vol] 2.0 mg/dL Normal 1.8-2.6 [facility] Comment on above: Performed By: #### P INR, CMP, , CBCA ####[facility] ([id number])[address] [place] [address] 31869 PROTIME AND INRon 12-22-2023 INR Coag (PPP) [Relative time] 2.6 {INR} High 0.8-1.1 [facility] Comment on above: Performed By: #### P INR, CMP, , CBCA ####[facility] ([id number])[address] [place] [address] 22260 PT Coag (PPP) [Time] 29.0 s High 9.8-13.2 [facility] Comment on above: Result Comment: NEW REFERENCE RANGE Performed By: #### P INR, CMP, , CBCA ####[facility] ([id number])[address] [place] [address] 56920 Vancomycin trough [Mass/Vol] on 12-22-2023 VANCOMYCIN TROUGH 15.2 ug/mL Normal 5.0-20.0 [facility] Comment on above: Performed By: #### 4 092-3 ####[facility] ([id number])[address] [place] [address] 13562 CBC AND AUTO DIFFon 12-21-19 ABSOLUTE BASOPHIL 0.1 X10E9/L Normal 0.0-0.2 [facility] Comment on above: Performed By: #### Chanel ERICKSON [facility], #### [facility] ([id number]) [address] [place] [address] 10147 ABSOLUTE NEUTROPHIL 11.5 X10E9/L High 1.5-6.6 [facility] Comment on above: Performed By: #### Chanel ERICKSON [facility], #### [facility] ([id number]) [address] [place] [address] 76460 Basophils/100 WBC (Bld) 0.8 % Normal [facility] Comment on above: Performed By: #### Chanel ERICKSON, [facility], #### [facility] ([id number]) [address] [place] [address] 16095 Eosinophils (Bld) [#/Vol] 0.3 10*3/uL Normal 0.0-0.4 [facility] Comment on above: Performed By: #### Chanel ERICKSON, [facility], #### [facility] ([id number]) [address] [place] [address] 18497 Eosinophils/100 WBC (Bld) 2.2 % Normal [facility] Comment on above: Performed By: #### Chanel ERICKSON, C[facility], #### [facility] ([id number]) [address] [place] [address] 42223 Erythrocyte distribution width (RBC) [Ratio] 14.0 % Normal 11.5-15.0 [facility] Comment on above: Performed By: #### Chanel ERICKSON [facility], [id number] #### [facility] ([id number]) [address] [place] [address] 57274 Hematocrit (Bld) [Volume fraction] 34.8 % Low 35-47 [facility] Comment on above: Performed By: #### Chanel ERICKSON [facility], #### [facility] ([id number]) [address] [place] [address] 13435 Hemoglobin (Bld) [Mass/Vol] 11.4 g/dL Low 11.7-15.5 [facility] Comment on above: Performed By: #### Chanel ERICKSON [facility], #### [facility] ([id number]) [address] [place] [address] 53741 Lymphocytes (Bld) [#/Vol] 2.0 10*3/uL Normal 1.0-3.5 [facility] Comment on above: Performed By: #### Chanel ERICKSON [facility], 91063-2 #### [facility] ([id number]) [address] [place] [address] 35081 Lymphocytes/100 WBC (Bld) 13.2 % Normal [facility] Comment on above: Performed By: #### Chanel ERICKSON [facility], [id number] #### [facility] ([id number]) [address] [place] [address] 70737 MCH (RBC) [Entitic mass] 28.5 pg Normal 27-34 [facility] Comment on above: Performed By: #### Chanel ERICKSON [facility], 86968-2 #### [facility] ([id number]) [address] [place] [address] 87746 MCHC (RBC) [Mass/Vol] 32.6 g/dL Normal 32-36 [facility] System Comment on above: Performed By: #### C DRE, CMP, 07686-2 #### [facility] ([id number]) [address] [place] [address] 74130 MCV (RBC) [Entitic vol] 87 fL Normal 80-100 [facility] Comment on above: Performed By: #### C DRE, CMP, #### [facility] ([id number]) [address] [place] [address] 01045 Monocytes (Bld) [#/Vol] 1.3 10*3/uL High 0-0.9 [facility] Comment on above: Performed By: #### Chanel ERICKSON, CMP, #### [facility] ([id number]) [address] [place] [address] 29149 Monocytes/100 WBC (Bld) 8.7 % Normal [facility] Comment on above: Performed By: #### Chanel ERICKSON, CMP, #### [facility] ([id number]) [address] [place] [address] 86412 Neutrophils/100 WBC (Bld) 75.1 % Normal [facility] Comment on above: Performed By: #### Chanel ERICKSON, CMP, #### [facility] ([id number]) [address] [place] [address] 00097 Platelet mean volume (Bld) [Entitic vol] 8.8 fL Normal 7-12 [facility] Comment on above: Performed By: #### Chanel ERICKSON, CMP, #### [facility] ([id number]) [address] [place] [address] 93384 Platelets (Bld) [#/Vol] 257 10*3/uL Normal 150-450 [facility] Comment on above: Performed By: #### Chanel BCA, CMP, #### [facility] ([id number]) [address] [place] [address] 51633 RBC COUNT 3.98 X10E12/L Normal 3.80-5.20 [facility] Comment on above: Performed By: #### C BCA, CMP, 94274-6 #### [facility] ([id number]) [address] [place] [address] 93691 WBC (Bld) [#/Vol] 15.3 10*3/uL High 4.0-11.0 [facility] Comment on above: Performed By: #### C BCA, CMP, 88796-1 #### [facility] ([id number]) [address] [place] [address] 25523 COMPREHENSIVE METABOLIC PANE Tyrone 12-21-2023 Albumin [Mass/Vol] 3.3 g/dL Normal 3.2-5.3 [facility] Comment on above: Performed By: #### C BCA, CMP, 78761-0 ####[facility] ([id number])[address] [place] [address] 77256 ALP [Catalytic activity/Vol] 59 U/L Normal 39-130 [facility] Comment on above: Performed By: #### C BCA, CMP, 43531-4 ####[facility] ([id number])[address] [place] [address] 80280 ALT [Catalytic activity/Vol] 13 U/L Normal 0-31 [facility] Comment on above: Performed By: #### C BCA, CMP, 55920-8 ####[facility] ([id number])[address] [place] [address] 43778 Anion gap [Moles/Vol] 11 mmol/L Normal 5-15 [facility] Comment on above: Performed By: #### C BCA, CMP, 11865-9 ####[facility] ([id number])[address] [place] [address] [place] [address] AST [Catalytic activity/Vol] 11 U/L Normal 0-41 [facility] Comment on above: Performed By: #### C SEAN ERICKSON, 41719-5 ####[facility] ([id number])[address] [place] [address] 27501 Bilirubin [Mass/Vol] 1.0 mg/dL Normal 0.3-1.2 [facility] Comment on above: Performed By: #### C SEAN ERICKSON, ####[facility] ([id number])[address] [place] [address] 20719 Calcium [Mass/Vol] 8.5 mg/dL Normal 8.5-10.5 [facility] Comment on above: Performed By: #### Chanel ERICKSON CMP, ####[facility] ([id number])[address] [place] [address] [place] [address] Chloride [Moles/Vol] 101 mmol/L Normal 98-109 [facility] Comment on above: Performed By: #### C SEAN ERICKSON, ####[facility] ([id number])[address] [place] [address] 05872 CO2 [Moles/Vol] 25 mmol/L Normal 22-32 [facility] Comment on above: Performed By: #### C ESAN ERICKSON, ####[facility] ([id number])[address] [place] [address] [place] [address] Creatinine [Mass/Vol] 0.66 mg/dL Normal 0.40-1.00 [facility] Comment on above: Result Comment: METH OD TRACEABLE TO IDMS STANDARD Performed By: #### C DRE CMP, ####[facility] ([id number])[address] [place] [address] [place] [address] eGFR (CKD-EPI) NON-RACE DEPENDENT >90 Normal >59 [facility] Comment on above: Result Comment: Reported eGFR is based on the CKD-EPI 2020 equation that does not use a race coefficient. Performed By: #### C SEAN ERICKSON, 01741-6 ####[facility] ([id number])[address] [place] [address] [place] [address] Glucose [Mass/Vol] 132 mg/dL High 65-99 [facility] Comment on above: Performed By: #### Chanel ERICKSON [facility], 69220-3 ####[facility] ([id number])[address] [place] [address] 47846 Potassium [Moles/Vol] 3.5 mmol/L Normal 3.5-5.0 [facility] Comment on above: Performed By: #### Chanel ERICKSON CMP, ####[facility] ([id number])[address] [place] [address] [place] [address] Protein [Mass/Vol] 7.0 g/dL Normal 6.0-8.0 [facility] Comment on above: Performed By: #### C DRE [facility], 23419-4 ####[facility] ([id number])[address] [place] [address] 06643 Sodium [Moles/Vol] 137 mmol/L Normal 134-146 [facility] Comment on above: Performed By: #### Chanel ERICKSON CMP, 51508-2 ####[facility] ([id number])[address] [place] [address] [place] [address] Urea nitrogen [Mass/Vol] 15 mg/dL Normal 5-27 [facility] Comment on above: Performed By: #### Chanel ERICKSON CMP, 56057-1 ####[facility] ([id number])[address] [place] [address] [place] [address] Glucose Glucometer (BldC) [M ass/Vol]on 12-21-2023 Glucose [Mass/Vol] 130 mg/dL High 65-99 [facility] Glucose [Mass/Vol] 153 mg/dL High 65-99 [facility] Glucose [Mass/Vol] 206 mg/dL High 65-99 [facility] MAGNESIUMon 12-21-2023 Magnesium [Mass/Vol] 2.2 mg/dL Normal 1.8-2.6 [facility] Comment on above: Performed By: #### C BCA, CMP, 78239-6 ####[facility] ([id number])[address] [place], [place] [address] MR FOOT LT W WO CONTon 12-20 [...] Garcia MD on 12/21/2023 1:06 PM Normal [facility] POTASSIUMon 12-21-2023 Potassium [Moles/Vol] 3.8 mmol/L Normal 3.5-5.0 [facility] Comment on above: Performed By: #### 2 823-3 ####[facility] ([id number])[address] [place] [address] 96438 PROTIME AND INRon 12-21-2023 INR Coag (PPP) [Relative time] 2.4 {INR} High 0.8-1.1 [facility] Comment on above: Performed By: #### P INR ####[facility] ([id number])[address] [place] [address] 71351 PT Coag (PPP) [Time] 27.0 s High 9.8-13.2 [facility] Comment on above: Result Comment: NEW REFERENCE RANGE Performed By: #### P INR ####[facility] ([id number])[address] [place] [address] 05032 BLOOD CULTUREon 12-20-2023 Bacteria identified Aer cx Nom (Bld) SPECIMEN NOTES RSURFACE VEIN CULTURE RESULTS NO GROWTH 5 DAYS Normal [facility] Comment on above: Performed By: #### 1 7928-3 ####[facility] ([id number])[address] [place] [address] 35022 Bacteria identified Aer cx Nom (Bld) SPECIMEN NOTES SUBOPTIMAL VOLUME OF BLOOD COLLECTED, RESULTS MAY BE AFFECTED. CULTURE RESULTS NO GROWTH 5 DAYS Normal [facility] Comment on above: Performed By: #### 1 7928-3 ####[facility] ([id number])[address] [place] [address], [address] [place] [address] 28660 CBC AND AUTO DIFFon 12-20-19 24 ABSOLUTE BASOPHIL 0.1 X10E9/L Normal 0.0-0.2 [facility] Comment on above: Performed By: #### C SEAN ERICKSON, 1986-02 #### [facility] ([id number]) [address] [place] [address] 34312 #### 58061-2 #### [facility] ([id number]) Formerly [facility] [facility], [address] [place] [address] 39587 ABSOLUTE NEUTROPHIL 12.0 X10E9/L High 1.5-6.6 [facility] Comment on above: Performed By: #### C SEAN ERICKSON, 1986-02 #### [facility] ([id number]) [address] [place] [address] 15451 #### 44999-5 #### [facility] ([id number]) [address], [address] [place] [address] Basophils/100 WBC (Bld) 0.5 % Normal [facility] Comment on above: Performed By: #### Chanel ERICKSON [facility], 1988-02 #### [facility] ([id number]) [address] [place] [address] 09672 #### 67542-1 #### [facility] ([id number]) [address] [facility] [place] [address] Eosinophils (Bld) [#/Vol] 0.3 10*3/uL Normal 0.0-0.4 [facility] Comment on above: Performed By: #### Chanel ERICKSON [facility], 1988-02 #### [facility] ([id number]) [address] [place] [address] 04714 #### 12361-0 #### [facility] ([id number]) [address] [facility] [place] [address] Eosinophils/100 WBC (Bld) 2.0 % Normal [facility] Comment on above: Performed By: #### Chanel ERICKSON [facility], 1988-02 #### [facility] ([id number]) [address] [place] [address] 21220 #### 35002-7 #### [facility] ([id number]) [address] [facility] [facility] [place] [address] Erythrocyte distribution width (RBC) [Ratio] 14.0 % Normal 11.5-15.0 [facility] Comment on above: Performed By: #### Chanel ERICKSON [facility], 1988-02 #### [facility] ([id number]) [address] [place] [address] 73676 #### 88520-2 #### [facility] ([id number]) [address] [place] [address], [address] [place] [address] Hematocrit (Bld) [Volume fraction] 36.1 % Normal 35-47 [facility] Comment on above: Performed By: #### Chanel ERICKSON CMP, 1988-02 #### [facility] ([id number]) [address] [place] [address] 79126 #### 65842-8 #### [facility] ([id number]) [address] [place] [address], [address] [place] [address] Hemoglobin (Bld) [Mass/Vol] 12.1 g/dL Normal 11.7-15.5 [facility] Comment on above: Performed By: #### Chanel ERICKSON CMP, 1988-02 #### [facility] ([id number]) [address] [place] [address] 66382 #### 11178-7 #### [facility] ([id number]) [address] [place] [address], [address] [place] [address] Lymphocytes (Bld) [#/Vol] 2.4 10*3/uL Normal 1.0-3.5 [facility] Comment on above: Performed By: #### Chanel ERICKSON CMP, 1988-02 #### [facility] ([id number]) [address] [place] [address] 35300 #### 49357-1 #### [facility] ([id number]) [address] [place] [address], [address] [place] [address] Lymphocytes/100 WBC (Bld) 14.9 % Normal [facility] Comment on above: Performed By: #### Chanel ERICKSON CMP, 1988-02 #### [facility] ([id number]) [address] [place] [address] 93762 #### 99370-7 #### [facility] ([id number]) [address], [address] [place] [address] MCH (RBC) [Entitic mass] 28.9 pg Normal 27-34 [facility] Comment on above: Performed By: #### Chanel ERICKSON CMP, 1988-02 #### [facility] ([id number]) [address] [place] [address] 02039 #### 73485-9 #### [facility] ([id number]) [address], [address] [place] [address] MCHC (RBC) [Mass/Vol] 33.5 g/dL Normal 32-36 [facility] Comment on above: Performed By: #### Chanel ERICKSON CMP, 1988-02 #### [facility] ([id number]) [address] [place], [place] [address] #### 94400-3 #### [facility] ([id number]) [address], [address] [place] [address] MCV (RBC) [Entitic vol] 86 fL Normal 80-100 [facility] Comment on above: Performed By: #### Chanel ERICKSON CMP, 1988-02 #### [facility] ([id number]) [address] [place] [address] 60185 #### 86040-8 #### [facility] ([id number]) [address], [address] [place] [address] Monocytes (Bld) [#/Vol] 1.5 10*3/uL High 0-0.9 [facility] Comment on above: Performed By: #### Chanel ERICKSON CMP, 1988-02 #### [facility] ([id number]) [address] [place] [address] 78070 #### 27532-0 #### [facility] ([id number]) [address], [address] [place] [address] Monocytes/100 WBC (Bld) 9.3 % Normal [facility] Comment on above: Performed By: #### Chanel ERICKSON CMP, 1988-02 #### [facility] ([id number]) [address] [place] [address] 33405 #### 13936-0 #### [facility] ([id number]) [address], [address] [place] [address] Neutrophils/100 WBC (Bld) 73.3 % Normal [facility] Comment on above: Performed By: #### Chanel ERICKSON CMP, 1988-02 #### [facility] ([id number]) [address] [place] [address] 79465 #### 61568-3 #### [facility] ([id number]) [address], [address] [place] [address] Platelet mean volume (Bld) [Entitic vol] 8.4 fL Normal 7-12 [facility] Comment on above: Performed By: #### Chanel ERICKSON CMP, 1988-02 #### [facility] ([id number]) [address] [place] [address] 22660 #### 32344-3 #### [facility] ([id number]) [address], [address] [place] [address] Platelets (Bld) [#/Vol] 282 10*3/uL Normal 150-450 [facility] Comment on above: Performed By: #### Chanel ERICKSON CMP, 1988-02 #### [facility] ([id number]) [address] [place] [address] 29663 #### 74010-3 #### [facility] ([id number]) [address], [address] [place] [address] RBC COUNT 4.18 X10E12/L Normal 3.80-5.20 [facility] Comment on above: Performed By: #### Chanel ERICKSON CMP, 1988-02 #### [facility] ([id number]) [address] [place] [address] 42698 #### 50133-1 #### [facility] ([id number]) [address] [facility] [place] [address] WBC (Bld) [#/Vol] 16.4 10*3/uL High 4.0-11.0 [facility] Comment on above: Performed By: #### Chanel ERICKSON CMP, 1988-02 #### [facility] ([id number]) [address] [place] [address] 28142 #### 28787-7 #### [facility] ([id number]) [address] [facility] [place] [address] COMPREHENSIVE METABOLIC PANE Tyrone 12-20-2023 Albumin [Mass/Vol] 3.7 g/dL Normal 3.2-5.3 [facility] Comment on above: Performed By: #### Chanel ERICKSON [facility], 1988-02 #### [facility] ([id number]) [address] [place] [address] 20537 #### 31413-2 #### [facility] ([id number]) [address] [facility] [place] [address] ALP [Catalytic activity/Vol] 74 U/L Normal 39-130 [facility] Comment on above: Performed By: #### Chanel ERICKSON CMP, 1988-02 #### [facility] ([id number]) [address] [place] [address] 30252 #### 40873-6 #### [facility] ([id number]) [address] [facility] [place] [address] ALT [Catalytic activity/Vol] 15 U/L Normal 0-31 [facility] Comment on above: Performed By: #### Chanel ERICKSON CMP, 1988-02 #### [facility] ([id number]) [address] [place] [address] 73466 #### 91907-2 #### [facility] ([id number]) [address], [address] [place] [address] Anion gap [Moles/Vol] 6 mmol/L Normal 5-15 [facility] Comment on above: Performed By: #### Chanel ERICKSON CMP, 1988-02 #### [facility] ([id number]) [address] [place] [address] 35391 #### 69968-6 #### [facility] ([id number]) [address], [address] [place] [address] AST [Catalytic activity/Vol] 17 U/L Normal 0-41 [facility] Comment on above: Performed By: #### Chanel ERICKSON CMP, 1988-02 #### [facility] ([id number]) [address] [place] [address] 38324 #### 56065-6 #### [facility] ([id number]) [address], [address] [place] [address] Bilirubin [Mass/Vol] 0.4 mg/dL Normal 0.3-1.2 [facility] Comment on above: Performed By: #### Chanel ERICKSON CMP, 1988-02 #### [facility] ([id number]) [address] [place] [address] 42713 #### 94565-3 #### [facility] ([id number]) [address], [address] [place] [address] Calcium [Mass/Vol] 8.3 mg/dL Low 8.5-10.5 [facility] Comment on above: Performed By: #### C BCA, CMP, 1988-02 #### [facility] ([id number]) [address] [place] [address] 97838 #### 48816-0 #### [facility] ([id number]) [address], [address] [place] [address] Chloride [Moles/Vol] 101 mmol/L Normal 98-109 [facility] Comment on above: Performed By: #### C BCA, CMP, 1988-02 #### [facility] ([id number]) [address] [place] [address] 76827 #### 15914-4 #### [facility] ([id number]) [address], [address] [place] [address] CO2 [Moles/Vol] 26 mmol/L Normal 22-32 [facility] Comment on above: Performed By: #### C BCA, CMP, 1988-02 #### [facility] ([id number]) [address] [place] [address] 51461 #### 30578-0 #### [facility] ([id number]) [address], [address] [place] [address] Creatinine [Mass/Vol] 0.69 mg/dL Normal 0.40-1.00 [facility] Comment on above: Result Comment: METH OD TRACEABLE TO IDMS STANDARD Performed By: #### C BCA, CMP, 1988-02 #### [facility] ([id number]) [address] [place] [address] 97744 #### 84796-7 #### [facility] ([id number]) [address], [address] [place] [address] eGFR (CKD-EPI) NON-RACE DEPENDENT >90 Normal >59 [facility] Comment on above: Result Comment: Reported eGFR is based on the CKD-EPI 2021 equation that does not use a race coefficient. Performed By: #### C DRE [facility], 1988-02 #### [facility] ([id number]) [address] [place] [address] 37816 #### 87278-1 #### [facility] ([id number]) [address], [address] [place] [address] Glucose [Mass/Vol] 132 mg/dL High 65-99 [facility] Comment on above: Performed By: #### C DRE [facility], 1988-02 #### [facility] ([id number]) [address] [place] [address] 98547 #### 14105-8 #### [facility] ([id number]) [address], [address] [place] [address] Potassium [Moles/Vol] 3.8 mmol/L Normal 3.5-5.0 [facility] Comment on above: Performed By: #### C DRE [facility], 1988-02 #### [facility] ([id number]) [address] [place] [address] 09921 #### 90974-9 #### [facility] ([id number]) [address], [address] [place] [address] Protein [Mass/Vol] 7.9 g/dL Normal 6.0-8.0 [facility] Comment on above: Performed By: #### C DRE [facility], 1988-02 #### [facility] ([id number]) [address] [place] [address] 49139 #### 14612-0 #### [facility] ([id number]) [address], [address] [place] [address] Sodium [Moles/Vol] 133 mmol/L Low 134-146 [facility] Comment on above: Performed By: #### C DRE CMP, 1988-02 #### [facility] ([id number]) [address] [place] [address] 73950 #### 74984-9 #### [facility] ([id number]) [address] [place] [address] Urea nitrogen [Mass/Vol] 16 mg/dL Normal 5-27 [facility] Comment on above: Performed By: #### Chanel ERICKSON [facility], 1988-02 #### [facility] ([id number]) [address] [place] [address] 29670 #### 46493-0 #### [facility] ([id number]) [address] [place] [address] CRP [Mass/Vol]on 12-20-2023 C REACTIVE PROTEIN 11.8 mg/dL High 0.000-0.744 [facility] Comment on above: Performed By: #### Chanel ERICKSON [facility], 1988-02 #### [facility] ([id number]) [address] [place] [address] 12145 #### 88330-6 #### [facility] ([id number]) [address] [place] [address] ESR Photometric method (Bld) [Velocity]on 12-20-2023 ESR, ERYTHROCYTE SEDIMENTATION RATE 60 mm/h High 0-30 [facility] Comment on above: Performed By: #### Chanel ERICKSON [facility], 1988-02 #### [facility] ([id number]) [address] [place] [address] 31240 #### 07638-7 #### [facility] ([id number]) [address] [place] [address] Glucose Glucometer (BldC) [M ass/Vol]on 12-20-2023 Glucose [Mass/Vol] 174 mg/dL High 65-99 [facility] URINALYSISon 12-20-2023 Bilirubin Ql (U) Negative Normal NEG [facility] Comment on above: Performed By: #### U A #### [facility] ([id number]) [address] [place] [address] [place] [address] BLOOD/HGB Negative Normal NEG [facility] Comment on above: Performed By: #### U A #### [facility] ([id number]) [address] [place] [address] [place] [address] Color (U) YELLOW Normal YELLOW [facility] Comment on above: Performed By: #### U A #### [facility] ([id number]) [address] [place] [address] [place] [address] Glucose Ql (U) Negative Normal NEG [facility] Comment on above: Performed By: #### U A #### [facility] ([id number]) [address] [place] [address] [place] [address] Ketones Ql (U) Negative Normal NEG [facility] Comment on above: Performed By: #### U A #### [facility] ([id number]) [address] [place] [address] [place] [address] Leukocyte esterase Test strip Ql (U) Negative Normal NEG [facility] Comment on above: Performed By: #### U A #### [facility] ([id number]) [address] [place] [address] [place] [address] Nitrite Ql (U) Positive Abnormal NEG [facility] Comment on above: Performed By: #### U A #### [facility] ([id number]) [address] [place] [address] [place] [address] pH (U) 6.0 [pH] Normal 5.0-8.5 [facility] Comment on above: Performed By: #### U A #### [facility] ([id number]) [address] [place] [address] Protein Ql (U) Negative Normal NEG [facility] Comment on above: Performed By: #### U A #### [facility] ([id number]) [address] [place] [address] R.B.CELLS 0 /hpf Normal 0-5 [facility] Comment on above: Performed By: #### U A #### [facility] ([id number]) [address] [place] [address] Specific gravity (U) [Rel density] 1.015 Normal 1.003-1.035 [facility] Comment on above: Performed By: #### U A #### [facility] ([id number]) [address] [place] [address] SQUAMOUS EPITHELIUM 0 to 3 Normal 0-5 [facility] Comment on above: Performed By: #### U A #### [facility] ([id number]) [address] [place] [address] TURBIDITY CLEAR Normal CLEAR [facility] Comment on above: Performed By: #### U A #### [facility] ([id number]) [address] [place] [address] Urobilinogen Qn (U) 0.2 {Mindy'U}/dL Normal <1.1 [facility] Comment on above: Performed By: #### U A #### [facility] ([id number]) [address] [place] [address] W.B.CELLS 0 to 1 Normal 0-5 [facility] Comment on above: Performed By: #### U A #### [facility] ([id number]) [address] [place] [address] XR FOOT LT MIN 3 VWSon XR [...] Bradshaw MD on 12/20/2023 6:37 PM Normal [facility] XR FOOT RT MIN 3 VWSon XR [...] Bradshaw MD on 12/20/2023 5:56 PM Normal [facility] XR KNEE RT 3 VWSon XR KNEE RT 3 VWS XR KNEE RT 3 VWS XR KNEE RT 3 VWS CLINICAL INFORMATION: Right knee pain. Fall. Pain. COMPARISON: None. IMPRESSION: * No evidence of acute fracture. 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 No large joint effusion. Osteopenia. Finalized by Andreas Araujo MD on 12/20/2023 5:05 PM [facility] 36on 11-16-2023 36 Please let her know her cholesterol levels look good. Continue pravastatin. Thanks [facility] Telephoneon 11-16-2023 Telephone [phone] Maximo Gill 1950 Date Provider Department Center 11/16/2023 EBER PAGAN CHING Tavera Family History Problem Relation Age of Onset Heart attack Father Diabetes Father Hypertension Father Coronary artery disease Father Rheum arthritis Father Family Status - Relation Status Age at Father [facility] 37on 11-01-2023 37 *Increase amlodipine to 10mg daily. You can take 2 tablets of your current 5mg prescription daily until this runs out then start new prescription of 1 - 10mg tablet daily. *Monitor your blood pressure daily 1-2 hours after medications *Have labs drawn *Follow-up with GI given dark stools [facility] Office Visiton 11-01-2023 Follow-up visit [id number] Maximo Gill 1950 Provider Department Center 11/01/2023 EBER PAGAN CHING Salazar Family History Problem Relation Age of Onset Heart attack Father Diabetes Father Hypertension Father Coronary artery disease Father Rheum arthritis Father Family Status - Relation Status Age at Father Level of Service:23056 [place] OFFICE/OUTPATIENT ESTABLISHED MOD MDM 30 MIN Reason for Visit and Comments: Atrial Fibrillation [80] Congestive Heart Failure [127] [facility] Office Visiton 05-23-2023 Follow-up visit [id number] Maximo Gill 1950 Date Provider Department Center 05/23/2023 RAMAN CASTANEDA CHING Salazar Family History Problem Relation Age of Onset Heart attack Father Diabetes Father Hypertension Father Coronary artery disease Father Rheum arthritis Father Family Status - Relation Status Age at Father Level of Service:47458 [place] OFFICE/OUTPATIENT ESTABLISHED LOW MDM 20-29 MIN Normal [facility] CBC AUTO DIFFon 03-02-2023 BASO # 0.1 103/ul Normal 0.0-0.1 [facility] Comment on above: Performed By: #### C BC #### [facility] [address] [address] [address] Yandy Rodarte Basophils/100 WBC (Bld) 0.4 % Normal 0.2-2.0 [facility] Comment on above: Performed By: #### C BC #### [facility] [address] [place] [address] Dr. Yandy Rodarte EO # 0.5 103/ul Normal 0.0-0.7 [facility] Comment on above: Performed By: #### C BC #### [facility] [address] [place] [address] Dr. Yandy Rodarte Eosinophils/100 WBC (Bld) 4.1 % Normal 0.9-7.0 [facility] Comment on above: Performed By: #### C BC #### [facility] [address] [place] [address] Dr. Yandy Rodarte Erythrocyte distribution width (RBC) [Ratio] 14.0 % Normal 11.0-15.0 [facility] Comment on above: Performed By: #### C BC #### [facility] [address] [place] [address] Dr. Yandy Rodarte Hematocrit (Bld) [Volume fraction] 42.8 % Normal 36.0-48.0 [facility] Comment on above: Performed By: #### C BC #### [facility] [address] [place] [address] Dr. Yandy Rodarte Hemoglobin (Bld) [Mass/Vol] 13.6 g/dL Normal 12.0-16.0 [facility] Comment on above: Performed By: #### C BC #### [facility] [address] [place] [address] Dr. Yandy Rdoarte IG # 0.04 10e3/ul Critically high 0.00-0.03 [facility] Comment on above: Performed By: #### C BC #### [facility] [address] [place] [address] Dr. Yandy Rodarte IG % 0.4 % Normal 0.0-0.5 [facility] Comment on above: Performed By: #### C BC #### [facility] [address] [place] [address] Dr. Yandy Rodarte LYMPH # 2.2 103/ul Normal 1.2-3.8 [facility] Comment on above: Performed By: #### C BC #### [facility] [address] [place] [address] Dr. Yandy Rodarte Lymphocytes/100 WBC (Bld) 20.0 % Critically low 20.5-60.0 [facility] Comment on above: Performed By: #### C BC #### [facility] [address] [place] [address] Dr. Yandy Rodarte MANUAL DIFF REQ NO Normal [facility] Comment on above: Performed By: #### C BC #### [facility] [address] [place] [address] Dr. Yandy Rodarte MCH (RBC) [Entitic mass] 28.2 pg Normal 26.7-34.0 [facility] Comment on above: Performed By: #### C BC #### [facility] [address] [place] [address] Dr. Yandy Rodarte MCHC (RBC) [Mass/Vol] 31.8 g/dL Normal 29.9-35.2 [facility] Comment on above: Performed By: #### C BC #### [facility] [address] [place] [address] Dr. Yandy Rodarte MCV (RBC) [Entitic vol] 88.8 fL Normal 81.0-99.0 [facility] Comment on above: Performed By: #### C BC #### [facility] [address] [place] [address] Dr. Yandy Rodarte MONO # 0.7 103/ul Normal 0.3-0.8 [facility] Comment on above: Performed By: #### C BC #### [facility] [address] [place] [address] Dr. Yandy Rodarte Monocytes/100 WBC (Bld) 6.3 % Normal 1.7-12.0 [facility] Comment on above: Performed By: #### C BC #### [facility] [address] [place] [address] Dr. Yandy Rodarte NEUT # 7.7 103/ul Critically high 1.4-6.5 [facility] Comment on above: Performed By: #### C BC #### [facility] [address] [place] [address] Dr. Yandy Rodarte Neutrophils/100 WBC (Bld) 68.8 % Normal 43.0-75.0 [facility] Comment on above: Performed By: #### C BC #### [facility] [address] [place] [address] Dr. Yandy Rodarte Platelet mean volume (Bld) [Entitic vol] 9.8 fL Normal 9.5-13.5 [facility] Comment on above: Performed By: #### C BC #### [facility] [address] [place] [address] Dr. Yandy Rodarte PLT 259 103/ul Normal 150-450 [facility] Comment on above: Performed By: #### C BC #### [facility] [address] [place] [address] Dr. Yandy Rodarte RBC 4.82 106/ul Normal 4.20-5.40 [facility] Comment on above: Performed By: #### C BC #### [facility] [address] [place] [address] Dr. Yandy Rodarte WBC 11.2 103/ul Critically high 4.0-11.0 [facility] Comment on above: Performed By: #### C BC #### [facility] [address] [place] [address] Dr. Yandy Rodarte ECHOCARDIO M/2D COMPLETEon 0 03-02-2023 ECHOCARDIO M/2D COMPLETE Patient: AFIA GILL Exam Date: 03/02/2023 : 1950 Gender:F Ordering : MRS. JESSICA PRECIADO [employer]EDER Admission #: [id number] Family : Order #: [id number] CLICK HERE TO VIEW EXAM ECHOCARDIOGRAM REPORT [...] Left Atrium LA Volume Index (2D A2C): 945671 mm3 Left Atrium Systolic Dimension: 3.80 cm [...] Gomez M.D. on 03/02/2023 at 19:19 Normal [facility] LIPID PROFILEon 03-02-2023 CHOL-HDL RATIO NORM SEE BELOW Normal [facility] Comment on above: Result Comment: 3.3 - 4.4 LOW RISK 4.4 - 7.1 AVERAGE RISK 7.1 - 11.0 MODERATE RISK >11.0 HIGH RISK Performed By: #### L IPID, CMP #### [facility] [address] [address] [address] Yandy Rodarte Cholesterol [Mass/Vol] 203 mg/dL Critically high <=200 [facility] Comment on above: Performed By: #### L IPID, CMP #### [facility] [address] [address] [address] Yandy Rodarte Cholesterol in HDL [Mass/Vol] 35 mg/dL Critically low 40-60 [facility] Comment on above: Performed By: #### L IPID, CMP #### [facility] [address] [address] [address] Yandy Rodarte Cholesterol in LDL [Mass/Vol] 123.0 mg/dL Normal [facility] Comment on above: Performed By: #### L IPID, CMP #### [facility] [address] [address] [address] Yandy Rodarte Cholesterol.total/C holesterol in HDL [Mass ratio] 5.8 {ratio} Normal [facility] Comment on above: Performed By: #### L IPID, CMP #### [facility] [address] [address] [address] Yandy Rodarte HDL NORMAL > or = 60 mg/dl - LO W CARDIOVASCULAR RISK <40 mg/dl - HIGH CARDIOVASCULAR RISK Normal [facility] Comment on above: Performed By: #### L IPID, CMP #### [facility] [address] [address] [address] Yandy Rodarte LDL CALC NORMAL SEE BELOW Normal [facility] Comment on above: Result Comment: <100 mg/dl OPTIMAL 100 - 129 mg/dl NEAR OR ABOVE OPTIMAL 130 - 159 mg/dl BORDERLINE HIGH 160 - 189 mg/dl HIGH >190 mg/dl VERY HIGH Performed By: #### L IPID, CMP #### [facility] [address] [address] [address] Yandy Rodarte Triglyceride [Mass/Vol] 225 mg/dL Critically high <=150 [facility] Comment on above: Performed By: #### L IPID, CMP #### [facility] [address] [address] [address] Yandy Rodarte VLDL CALC 45.0 mg/dL Normal [facility] Comment on above: Performed By: #### L IPID, CMP #### [facility] [address] [address] [address] Yandy Rodarte PROF 14(COMP METB)on 023 Albumin [Mass/Vol] 3.5 g/dL Normal 3.4-5.0 [facility] Comment on above: Performed By: #### L IPID, CMP #### [facility] [address] [address] [address] Yandy Rodarte Albumin/Globulin [Mass ratio] 0.8 {ratio} Normal [facility] Comment on above: Performed By: #### L IPID, CMP #### [facility] [address] [address] [address] Yandy Rodarte ALP [Catalytic activity/Vol] 100 U/L Normal 46-116 [facility] Comment on above: Performed By: #### L IPID, CMP #### [facility] [address] [address] [address] Yandy Rodarte ALT [Catalytic activity/Vol] 22 U/L Normal 14-59 [facility] Comment on above: Performed By: #### L IPID, CMP #### [facility] [address] [address] [address] Yandy Rodarte Anion gap [Moles/Vol] 8.9 mmol/L Normal [facility] Comment on above: Performed By: #### L IPID, CMP #### [facility] [address] [address] [address] Yandy Rodarte AST [Catalytic activity/Vol] 17 U/L Normal 15-37 [facility] Comment on above: Performed By: #### L IPID, CMP #### [facility] [address] [address] [address] Yandy Rodarte Bilirubin [Mass/Vol] 0.4 mg/dL Normal 0.2-1.0 [facility] Comment on above: Performed By: #### L IPID, CMP #### [facility] [address] [place] [address] Dr. Yandy Rodarte Calcium [Mass/Vol] 9.2 mg/dL Normal 8.5-10.1 [facility] Comment on above: Performed By: #### L IPID, CMP #### [facility] [address] [address] [address] Yandy Rodarte Chloride [Moles/Vol] 104 mmol/L Normal 98-107 [facility] Comment on above: Performed By: #### L IPID, CMP #### [facility] [address] [address] [address] Yandy Rodarte CO2 [Moles/Vol] 32.6 mmol/L Critically high 21.0-32.0 [facility] Comment on above: Performed By: #### L IPID, CMP #### [facility] [address] [address] [address] Yandy Rodarte Creatinine [Mass/Vol] 0.81 mg/dL Normal 0.55-1.02 [facility] Comment on above: Performed By: #### L IPID, CMP #### [facility] [address] [address] [address] Yandy Rodarte EGFR-AF ECUADOREAN >60 Normal >=60 [facility] Comment on above: Performed By: #### L IPID, CMP #### [facility] [address] [address] [address] Yandy Rodarte EGFR-NON AF ECUADOREAN >60 Normal >=60 [facility] Comment on above: Performed By: #### L IPID, CMP #### [facility] [address] [address] [address] Yandy Rodarte Globulin (S) [Mass/Vol] 4.6 g/dL Normal [facility] Comment on above: Performed By: #### L IPID, CMP #### [facility] [address] [address] [address] Yandy Rodarte Glucose [Mass/Vol] 114 mg/dL Critically high 74-106 [facility] Comment on above: Performed By: #### L IPID, CMP #### [facility] [address] [place] [address] Dr. Yandy Rodarte Potassium [Moles/Vol] 4.5 mmol/L Normal 3.5-5.1 [facility] Comment on above: Performed By: #### L IPID, CMP #### [facility] [address] [address] [address] Yandy Rodarte Protein [Mass/Vol] 8.1 g/dL Normal 6.4-8.2 [facility] Comment on above: Performed By: #### L IPID, CMP #### [facility] [address] [place] [address] Dr. Yandy Rodarte Sodium [Moles/Vol] 141 mmol/L Normal 136-145 [facility] Comment on above: Performed By: #### L IPID, CMP #### [facility] [address] [address] [address] Yandy Rodarte Urea nitrogen [Mass/Vol] 18.0 mg/dL Normal 7.0-18.0 [facility] Comment on above: Performed By: #### L IPID, CMP #### [facility] [address] [place] [address] Dr. Yandy Rodarte Urea nitrogen/Creatinine [Mass ratio] 22.2 mg/mg Normal [facility] Comment on above: Performed By: #### L IPID, [facility] #### [facility] [address] [address] [address] Yandy Rodarte Office Visiton 02-19-2023 Follow-up visit [id number] Maximo Gill 1950 F Date Provider Department Center 02/19/2023 [id number] PRECIADO [facility] Family History Problem Relation Age of Onset Heart attack Father Diabetes Father Hypertension Father Coronary artery disease Father Rheum arthritis Father Family Status - Relation Status Age at Father Level of Service:43449 [place] OFFICE/OUTPATIENT ESTABLISHED MOD MDM 30-39 MIN Reason for Visit and Comments: Follow-up [946066] - 6 month follow up Normal [facility] MG MAMM SCREEN MARIELENA W CADon 0 12-27-2022 MG MAMM SCREEN MARIELENA W CAD Patient: AFIA GILL Exam Date: 12/27/2022 : 1950 Gender:F Ordering : DR YAHIR BROTHERS M.D. Admission #: [id number] Family : Order #: [id number] CLICK HERE TO VIEW EXAM RADIOLOGY REPORT [...] at age 37. LOCATION: [facility] BREAST COMPOSITION: Scattered areas fibroglandular [...] MD on 12/28/2022 at 09:38 Normal [facility] CT SINUSES WO CONon 05-18-20 [...] by: YAYA ZULUAGA Date: 2022-05-18 08:38 Normal [facility] BASIC METABOLIC PANELon - Calcium [Mass/Vol] 9.6 mg/dL Normal 8.6-10.3 [facility] Comment on above: Order Comment: No: D o not add to previous draw Performed By: #### 5 [id number] #### [facility] [address] [place] [address], [place] Chloride [Moles/Vol] 101 mmol/L Normal 98-107 [facility] Comment on above: Order Comment: No: D o not add to previous draw Performed By: #### 5 [id number] #### [facility] [address] [place] [address], [place] CO2 [Moles/Vol] 29 mmol/L Normal 21-31 [facility] Comment on above: Order Comment: No: D o not add to previous draw Performed By: #### 5 [id number] #### [facility] [address] [place] [address], [place] Creatinine [Mass/Vol] 0.71 mg/dL Normal 0.60-1.20 [facility] Comment on above: Order Comment: No: D o not add to previous draw Performed By: #### 5 [id number] #### [facility] [address] [place] [address], [place] GFR/1.73 sq M predicted among blacks MDRD (S/P/Bld) [Vol rate/Area] mL/min/{1.73_m2} Normal >60 [facility] Comment on above: Order Comment: No: D o not add to previous draw Performed By: #### 5 [id number] #### [facility] [address] [place] [address], [place] GFR/1.73 sq M predicted among non-blacks MDRD (S/P/Bld) [Vol rate/Area] mL/min/{1.73_m2} Normal >60 [facility] Comment on above: Order Comment: No: D o not add to previous draw Performed By: #### 5 [id number] #### [facility] [address] [place] [address], [place] Glucose [Mass/Vol] 127 mg/dL High 70-100 [facility] Comment on above: Order Comment: No: D o not add to previous draw Performed By: #### 5 0608 #### [facility] [address] [place] [address], [place] Potassium [Moles/Vol] 4.3 mmol/L Normal 3.5-5.1 [facility] Comment on above: Order Comment: No: D o not add to previous draw Performed By: #### 5 0608 #### [facility] [address] [place] [address], [facility] Sodium [Moles/Vol] 137 mmol/L Normal 136-145 [facility] Comment on above: Order Comment: No: D o not add to previous draw Performed By: #### 5 [id number] #### [facility] [address] [place] [id number], [facility] Urea nitrogen [Mass/Vol] 20 mg/dL Normal 7-25 [facility] Comment on above: Order Comment: No: D o not add to previous draw Performed By: #### 5 [id number] #### [facility] [address] [place] [id number], [facility] CBC COMPLETE BLOOD COUNTon - Erythrocyte distribution width (RBC) [Ratio] 14.6 % Normal 11.5-15.0 [facility] Comment on above: Order Comment: No: D o not add to previous draw Performed By: #### 5 [id number] #### [facility] [address] [place] [address], [facility] Hematocrit (Bld) [Volume fraction] 44.6 % Normal 36.0-45.0 [facility] Comment on above: Order Comment: No: D o not add to previous draw Performed By: #### 5 [id number] #### [facility] [address] [place] [id number], [facility] Hemoglobin (Bld) [Mass/Vol] 14.1 g/dL Normal 12.0-15.0 [facility] Comment on above: Order Comment: No: D o not add to previous draw Performed By: #### 5 [id number] #### [facility] [address] [place] [id number], [facility] MCH (RBC) [Entitic mass] 30.2 pg Normal 27.0-33.0 [facility] Comment on above: Order Comment: No: D o not add to previous draw Performed By: #### 5 [id number] #### [facility] [address] MCHC (RBC) [Mass/Vol] 31.6 g/dL Low 32.0-35.0 [facility] Comment on above: Order Comment: No: D o not add to previous draw Performed By: #### 5 [id number] #### [facility] [address] [place] [address], [facility] MCV (RBC) [Entitic vol] 95.5 fL Normal 82.0-98.0 [facility] Comment on above: Order Comment: No: D o not add to previous draw Performed By: #### 5 [id number] #### [facility] [address] [facility]. [address] Nucleated RBC/100 WBC (Bld) [Ratio] 0 % Normal 0-0 [facility] Comment on above: Order Comment: No: D o not add to previous draw Performed By: #### 5 [id number] #### [facility] [address] [place] [address], [facility] PLAT CNT 250 10*3/uL Normal 150-400 [facility] Comment on above: Order Comment: No: D o not add to previous draw Performed By: #### 5 [id number] #### [facility] [address] [facility] [place] [address], [facility] RBC (Bld) [#/Vol] 4.67 10*6/uL Normal 3.80-5.00 [facility] Comment on above: Order Comment: No: D o not add to previous draw Performed By: #### 5 [id number] #### [facility] [address] [place] [address], [facility] WBC (Bld) [#/Vol] 9.20 10*3/uL Normal 4.00-10.60 [facility] Comment on above: Order Comment: No: D o not add to previous draw Performed By: #### 5 0608 #### [facility] [address] [place] [address], [facility] POC GLUCOSE LABon 02-02-2019 Glucose [Mass/Vol] 146 mg/dL High 70-100 [facility] Comment on above: Performed By: #### 5 0608 #### [facility] [address] [place] [id number], [facility] Glucose [Mass/Vol] 115 mg/dL High 70-100 [facility] Comment on above: Performed By: #### 5 [id number] #### [facility] [address] [facility] [place] [address], [facility] PROTHROMBIN TIMEon 9 INR Coag (PPP) [Relative time] 1.22 {INR} High 0.91-1.16 [facility] Comment on above: Order Comment: No: [...] 1995;108:231S-246S. Performed By: #### 5 0608 #### [facility] [address] [place] [address], [facility] PT Coag (PPP) [Time] 15.4 s High 12.3-14.8 [facility] Comment on above: Order Comment: No: D o not add to previous draw Result Comment: ALL RESULTS MUST BE INTERPRETED WITH RESPECT TO BLOOD DRAWING ARTIFACT OR DILUTION ERROR OF ANTICOAGULANT AT THE TIME OF SAMPLING. Performed By: #### 5 [id number] #### [facility] [address] [place] [id number], [facility] POC GLUCOSE LABon 02-01-2019 Glucose [Mass/Vol] 152 mg/dL High 70-100 [facility] Comment on above: Performed By: #### 5 0608 #### [facility] [address] [place] [address], [place] Glucose [Mass/Vol] 118 mg/dL High 70-100 [facility] Comment on above: Performed By: #### 5 0608 #### [facility] [address] [place] [address], [place] Glucose [Mass/Vol] 197 mg/dL High 70-100 [facility] Comment on above: Performed By: #### 5 0608 #### [facility] [address] [place] [address], [place] Glucose [Mass/Vol] 123 mg/dL High 70-100 [facility] Comment on above: Performed By: #### 5 [id number] #### [facility] [address] [place] [address], [facility] PROTHROMBIN TIMEon 9 INR Coag (PPP) [Relative time] 1.24 {INR} High 0.91-1.16 [facility] Comment on above: Order Comment: Unkno [...] 1995;108:231S-246S. Performed By: #### 0 0071 #### [facility] [address] [place] [address], [facility] PT Coag (PPP) [Time] 15.6 s High 12.3-14.8 [facility] Comment on above: Order Comment: Unkno wn Result Comment: ALL RESULTS MUST BE INTERPRETED WITH RESPECT TO BLOOD DRAWING ARTIFACT OR DILUTION ERROR OF ANTICOAGULANT AT THE TIME OF SAMPLING. Performed By: #### 0 0071 #### [facility] [address] BASIC METABOLIC PANELon 01-20 Calcium [Mass/Vol] 9.5 mg/dL Normal 8.6-10.3 [facility] Comment on above: Order Comment: No: D o not add to previous draw Performed By: #### 0 0071 #### [facility] [address] [facility] [place] [address], [facility] Chloride [Moles/Vol] 98 mmol/L Normal 98-107 [facility] [facility] Comment on above: Order Comment: No: D o not add to previous draw Performed By: #### 0 0071 #### [facility] [address] [facility] [place] [address], [facility] CO2 [Moles/Vol] 29 mmol/L Normal 21-31 [facility] Comment on above: Order Comment: No: D o not add to previous draw Performed By: #### 0 0071 #### [facility] [address] [facility] [place] [address], [facility] Creatinine [Mass/Vol] 0.72 mg/dL Normal 0.60-1.20 [facility] Comment on above: Order Comment: No: D o not add to previous draw Performed By: #### 0 0071 #### [facility] [address] [place] [address], [place] GFR/1.73 sq M predicted among blacks MDRD (S/P/Bld) [Vol rate/Area] mL/min/{1.73_m2} Normal >60 [facility] Comment on above: Order Comment: No: D o not add to previous draw Performed By: #### 0 0071 #### [facility] [address] [place] [address], [facility] GFR/1.73 sq M predicted among non-blacks MDRD (S/P/Bld) [Vol rate/Area] mL/min/{1.73_m2} Normal >60 [facility] Comment on above: Order Comment: No: D o not add to previous draw Performed By: #### 0 0071 #### [facility] [address] [place] [address], [place] Glucose [Mass/Vol] 120 mg/dL High 70-100 [facility] Comment on above: Order Comment: No: D o not add to previous draw Performed By: #### 0 0071 #### [facility] [address] [place] [address], [place] Potassium [Moles/Vol] 3.5 mmol/L Normal 3.5-5.1 [facility] Comment on above: Order Comment: No: D o not add to previous draw Performed By: #### 0 0071 #### [facility] [address] [place] [address], [place] Sodium [Moles/Vol] 138 mmol/L Normal 136-145 [facility] on above: Order Comment: No: D o not add to previous draw Performed By: #### 0 0071 #### [facility] [address] [place] [address], [facility] Urea nitrogen [Mass/Vol] 20 mg/dL Normal 7-25 [facility] Comment on above: Order Comment: No: D o not add to previous draw Performed By: #### 0 0071 #### [facility] [address] [place] [address], [facility] CBC COMPLETE BLOOD COUNTon 0 - Erythrocyte distribution width (RBC) [Ratio] 14.6 % Normal 11.5-15.0 [facility] Comment on above: Order Comment: No: D o not add to previous draw Performed By: #### 0 0071 #### [facility] [address] Hematocrit (Bld) [Volume fraction] 42.7 % Normal 36.0-45.0 [facility] Comment on above: Order Comment: No: D o not add to previous draw Performed By: #### 0 0071 #### [facility] [address] [place] [address], [facility] Hemoglobin (Bld) [Mass/Vol] 13.8 g/dL Normal 12.0-15.0 [facility] Comment on above: Order Comment: No: D o not add to previous draw Performed By: #### 0 0071 #### [facility] [address] [place] [address], [facility] MCH (RBC) [Entitic mass] 31.0 pg Normal 27.0-33.0 [facility] Comment on above: Order Comment: No: D o not add to previous draw Performed By: #### 0 0071 #### [facility] [address] [place] [id number], [facility] MCHC (RBC) [Mass/Vol] 32.3 g/dL Normal 32.0-35.0 [facility] Comment on above: Order Comment: No: D o not add to previous draw Performed By: #### 0 0071 #### [facility] [address] [place] [address], [facility] MCV (RBC) [Entitic vol] 96.0 fL Normal 82.0-98.0 [facility] Comment on above: Order Comment: No: D o not add to previous draw Performed By: #### 0 0071 #### [facility] [address] [facility] [place] [address], [facility] Nucleated RBC/100 WBC (Bld) [Ratio] 0 % Normal 0-0 [facility] Comment on above: Order Comment: No: D o not add to previous draw Performed By: #### 0 0071 #### [facility] [address] [facility] [place] [place] [address], [facility] PLAT CNT 217 10*3/uL Normal 150-400 [facility] Comment on above: Order Comment: No: D o not add to previous draw Performed By: #### 0 0071 #### [facility] [address] [facility] [place] [address], [facility] RBC (Bld) [#/Vol] 4.45 10*6/uL Normal 3.80-5.00 [facility] Comment on above: Order Comment: No: D o not add to previous draw Performed By: #### 0 0071 #### [facility] [address] [facility] [place] [address], [facility] WBC (Bld) [#/Vol] 9.17 10*3/uL Normal 4.00-10.60 [facility] Comment on above: Order Comment: No: D o not add to previous draw Performed By: #### 0 0071 #### [facility] [address] [facility] [place] [address], [facility] POC GLUCOSE LABon 01-31-2019 Glucose [Mass/Vol] 116 mg/dL High 70-100 [facility] Comment on above: Performed By: #### 0 0071 #### [facility] [address] [place] [address], [place] Glucose [Mass/Vol] 122 mg/dL High 70-100 [facility] Comment on above: Performed By: #### 0 0071 #### [facility] [address] [place] [address], [place] Glucose [Mass/Vol] 191 mg/dL High 70-100 [facility] Comment on above: Performed By: #### 0 0071 #### [facility] [address] [place] [address], [place] Glucose [Mass/Vol] 131 mg/dL High 70-100 [facility] Comment on above: Performed By: #### 0 0071 #### [facility] [address] [place], [place] [address] [place] [address] PROTHROMBIN TIMEon 9 INR Coag (PPP) [Relative time] 1.24 {INR} High 0.91-1.16 [facility] Comment on above: Order Comment: Unkno [...] 1995;108:231S-246S. Performed By: #### 0 0071 #### [facility] [address] [place] [address], [facility] PT Coag (PPP) [Time] 15.6 s High 12.3-14.8 [facility] Comment on above: Order Comment: Unkno wn Result Comment: ALL RESULTS MUST BE INTERPRETED WITH RESPECT TO BLOOD DRAWING ARTIFACT OR DILUTION ERROR OF ANTICOAGULANT AT THE TIME OF SAMPLING. Performed By: #### 0 0071 #### [facility] [address] [place] [address], [facility] BASIC METABOLIC PANELon 01-20 Calcium [Mass/Vol] 10.0 mg/dL Normal 8.6-10.3 [facility] Comment on above: Order Comment: No: D o not add to previous draw Performed By: #### 0 0071 #### [facility] [address] [place] [address], [facility] Chloride [Moles/Vol] 99 mmol/L Normal 98-107 [facility] Comment on above: Order Comment: No: D o not add to previous draw Performed By: #### 0 0071 #### [facility] [address] [facility] [place] [place] [address], [facility] CO2 [Moles/Vol] 30 mmol/L Normal 21-31 [facility] Comment on above: Order Comment: No: D o not add to previous draw Performed By: #### 0 0071 #### [facility] [address] [place] [address], [facility] Creatinine [Mass/Vol] 0.74 mg/dL Normal 0.60-1.20 [facility] Comment on above: Order Comment: No: D o not add to previous draw Performed By: #### 0 0071 #### [facility] [address] [place] [address], [facility] GFR/1.73 sq M predicted among blacks MDRD (S/P/Bld) [Vol rate/Area] mL/min/{1.73_m2} Normal >60 [facility] Comment on above: Order Comment: No: D o not add to previous draw Performed By: #### 0 0071 #### [facility] [address] [place] [address], [place] GFR/1.73 sq M predicted among non-blacks MDRD (S/P/Bld) [Vol rate/Area] mL/min/{1.73_m2} Normal >60 [facility] Comment on above: Order Comment: No: D o not add to previous draw Performed By: #### 0 0071 #### [facility] [address] [place] [address], [place] Glucose [Mass/Vol] 112 mg/dL High 70-100 [facility] Comment on above: Order Comment: No: D o not add to previous draw Performed By: #### 0 0071 #### [facility] [address] [place] [address], [place] Potassium [Moles/Vol] 4.3 mmol/L Normal 3.5-5.1 [facility] Comment on above: Order Comment: No: D o not add to previous draw Performed By: #### 0 0071 #### [facility] [address] [place] [address], [place] Sodium [Moles/Vol] 137 mmol/L Normal 136-145 [facility] Comment on above: Order Comment: No: D o not add to previous draw Performed By: #### 0 0071 #### [facility] [address] [place] [address], [place] Urea nitrogen [Mass/Vol] 20 mg/dL Normal 7-25 [facility] Comment on above: Order Comment: No: D o not add to previous draw Performed By: #### 0 0071 #### [facility] [address] [place] [address], [place] Calcium [Mass/Vol] 9.3 mg/dL Normal 8.6-10.3 [facility] Comment on above: Order Comment: No: D o not add to previous draw Performed By: #### 5 6101 #### [facility] [address] [place] [address], [place] Chloride [Moles/Vol] 103 mmol/L Normal 98-107 [facility] Comment on above: Order Comment: No: D o not add to previous draw Performed By: #### 5 6101 #### [facility] [address] [place] [address], [place] CO2 [Moles/Vol] 28 mmol/L Normal 21-31 [facility] Comment on above: Order Comment: No: D o not add to previous draw Performed By: #### 5 6101 #### [facility] [address] [place] [address], [place] Creatinine [Mass/Vol] 0.62 mg/dL Normal 0.60-1.20 [facility] Comment on above: Order Comment: No: D o not add to previous draw Performed By: #### 5 6101 #### [facility] [address] [place] [address], [place] GFR/1.73 sq M predicted among blacks MDRD (S/P/Bld) [Vol rate/Area] mL/min/{1.73_m2} Normal >60 [facility] Comment on above: Order Comment: No: D o not add to previous draw Performed By: #### 5 6101 #### [facility] [address] [place] [address], [place] GFR/1.73 sq M predicted among non-blacks MDRD (S/P/Bld) [Vol rate/Area] mL/min/{1.73_m2} Normal >60 [facility] Comment on above: Order Comment: No: D o not add to previous draw Performed By: #### 5 6101 #### [facility] [address] [place] [address], [facility] Glucose [Mass/Vol] 117 mg/dL High 70-100 [facility] Comment on above: Order Comment: No: D o not add to previous draw Performed By: #### 5 6101 #### [facility] [address] [place] [address], [place] Potassium [Moles/Vol] 3.5 mmol/L Normal 3.5-5.1 [facility] Comment on above: Order Comment: No: D o not add to previous draw Performed By: #### 5 6101 #### [facility] [address] [place] [address], [place] Sodium [Moles/Vol] 140 mmol/L Normal 136-145 [facility] Comment on above: Order Comment: No: D o not add to previous draw Performed By: #### 5 6101 #### [facility] [address] [place] [address], [place] Urea nitrogen [Mass/Vol] 15 mg/dL Normal 7-25 [facility] Comment on above: Order Comment: No: D o not add to previous draw Performed By: #### 5 6101 #### [facility] [address] [place] [address], [facility] CBC COMPLETE BLOOD COUNTon 0 - Erythrocyte distribution width (RBC) [Ratio] 14.6 % Normal 11.5-15.0 [facility] Comment on above: Order Comment: No: D o not add to previous draw Performed By: #### 5 [id number] #### [facility] [address] [place] [address], [place] Hematocrit (Bld) [Volume fraction] 42.1 % Normal 36.0-45.0 [facility] Comment on above: Order Comment: No: D o not add to previous draw Performed By: #### 5 [id number] #### [facility] [address] Hemoglobin (Bld) [Mass/Vol] 13.4 g/dL Normal 12.0-15.0 [facility] Comment on above: Order Comment: No: D o not add to previous draw Performed By: #### 5 6101 #### [facility] [address] [place] [id number], [facility] MCH (RBC) [Entitic mass] 30.6 pg Normal 27.0-33.0 [facility] Comment on above: Order Comment: No: D o not add to previous draw Performed By: #### 5 6101 #### [facility] [address] [place] [address], [facility] MCHC (RBC) [Mass/Vol] 31.8 g/dL Low 32.0-35.0 [facility] Comment on above: Order Comment: No: D o not add to previous draw Performed By: #### 5 6101 #### [facility] [address] [facility] [place] [address], [facility] MCV (RBC) [Entitic vol] 96.1 fL Normal 82.0-98.0 [facility] Comment on above: Order Comment: No: D o not add to previous draw Performed By: #### 5 6101 #### [facility] [address] [facility] [place] [address], [facility] Nucleated RBC/100 WBC (Bld) [Ratio] 0 % Normal 0-0 [facility] Comment on above: Order Comment: No: D o not add to previous draw Performed By: #### 5 6101 #### [facility] [address] [facility] [place] [address], [facility] PLAT CNT 215 10*3/uL Normal 150-400 [facility] Comment on above: Order Comment: No: D o not add to previous draw Performed By: #### 5 6101 #### [facility] [address] [place] [address], [place] RBC (Bld) [#/Vol] 4.38 10*6/uL Normal 3.80-5.00 [facility] Comment on above: Order Comment: No: D o not add to previous draw Performed By: #### 5 6101 #### [facility] [address] [place] [address], [facility] WBC (Bld) [#/Vol] 8.75 10*3/uL Normal 4.00-10.60 [facility] Comment on above: Order Comment: No: D o not add to previous draw Performed By: #### 5 6101 #### [facility] [address] [facility]. [address] Cardiovascular Lab Reporton 01-30-2019 Cardiovascular Lab Report [facility] Patient Name: [facility] A MR #: [id number] Department of Physician: [facility] Tayler Gomze M.D. Division of Service Date: 01/29/2019 Cardiology Birthdate: 1950 Adult Cardiovascular Room #: 3AB 403009 [facility] [address] [place] [address] Cardiovascular Laboratory Report INDICATION: The patient is [...] signed informed consent. 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 The right neck area was prepped and draped in usual fashion. Using ultrasound guidance and micropuncture technique, the internal jugular vein was accessed. A 6-Cypriot x 11 cm sheath was placed. A 6-Cypriot Caldera catheter was used for right heart catheterization with measurement of pressures and calculation of cardiac output using the estimated Nader method. The Caldera catheter was removed. Using ultrasound guidance and micropuncture technique, the right radial artery was accessed. A 6-Cypriot x 11 cm Hydrophilic sheath was advanced. Verapamil was given through the sheath and a bolus of bivalirudin was given intravenously as the patient has prior history of heparin-induced thrombocytopenia. Note that, the care was taken to avoid any use of heparin during the procedure. Bilateral selective coronary angiography was then performed using 6-Cypriot JL3.5 and JR5 diagnostic catheters. Catheters were removed. A 6-Cypriot angled pigtail catheter was advanced over the [...] with 30% left ventricular ejection fraction. 3. [id number]-vvsoxfeh mitral regurgitation. 4. Severely elevated filling pressures. 5. Severe pulmonary hypertension. 6. Reduced cardiac output and cardiac index. 7. Uncontrolled systemic hypertension. RECOMMENDATIONS: The patient will be admitted for management of her decompensated heart failure with diuresis, addition of YUE inhibitor therapy, and control of her afterload. Electronically Signed by: Raman Gomez M.D. 02/01/2019 12:22 P Raman Gomez M.D. Date Dict: 01/29/201911:30 A/Raman Gomez M.D. Date Trans: 01/30/2019 07:50 A/ivan [id number] cc: Yahir Brothers M.D. [address] [place] [address] Yahir Mijares M.D. [address] [place] [address] Normal [facility] MAGNESIUM BLOODon 01-30-2019 Magnesium [Mass/Vol] 2.2 mg/dL Normal 1.9-2.7 [facility] Comment on above: Order Comment: No: D o not add to previous draw Performed By: #### 0 0071 #### [facility] [address] [place] [address], [facility] Magnesium [Mass/Vol] 2.2 mg/dL Normal 1.9-2.7 [facility] Comment on above: Order Comment: No: D o not add to previous draw Performed By: #### 5 6101 #### [facility] [address] [place] [address], [place] POC GLUCOSE LABon 01-30-2019 Glucose [Mass/Vol] 107 mg/dL High 70-100 [facility] Comment on above: Performed By: #### 5 6101 #### [facility] [address] [place] [address], [place] Glucose [Mass/Vol] 125 mg/dL High 70-100 [facility] Comment on above: Performed By: #### 5 6101 #### [facility] [address] [facility] [address] Glucose [Mass/Vol] 137 mg/dL High 70-100 [facility] Comment on above: Performed By: #### 5 6101 #### [facility] [address] [facility]. [address] Glucose [Mass/Vol] 114 mg/dL High 70-100 [facility] Comment on above: Performed By: #### 5 6101 #### [facility] [address] [facility]. [address] PROTHROMBIN TIMEon 9 INR Coag (PPP) [Relative time] 1.23 {INR} High 0.91-1.16 [facility] Comment on above: Order Comment: No: [...] 1995;108:231S-246S. Performed By: #### 5 6101 #### [facility] [address] [facility]. [address] PT Coag (PPP) [Time] 15.5 s High 12.3-14.8 [facility] Comment on above: Order Comment: No: D o not add to previous draw Result Comment: ALL RESULTS MUST BE INTERPRETED WITH RESPECT TO BLOOD DRAWING ARTIFACT OR DILUTION ERROR OF ANTICOAGULANT AT THE TIME OF SAMPLING. Performed By: #### 5 [id number] #### [facility] [address] [facility] [address] TSH3on 01-30-2019 TSH 3RD GENERATION 1.24 uIU/mL Normal 0.34-5.60 [facility] Comment on above: Order Comment: No: D o not add to previous draw Performed By: #### 5 [id number] #### [facility] [address] [facility]. [address] CBC COMPLETE BLOOD COUNTon 0 01-29-2019 Erythrocyte distribution width (RBC) [Ratio] 14.7 % Normal 11.5-15.0 [facility] Comment on above: Order Comment: No: D o not add to previous draw Performed By: #### 5 0608 #### [facility] [address] [facility]. [address] Hematocrit (Bld) [Volume fraction] 43.4 % Normal 36.0-45.0 [facility] Comment on above: Order Comment: No: D o not add to previous draw Performed By: #### 5 0608 #### [facility] [address] [facility] [place] [place] [address], [facility] Hemoglobin (Bld) [Mass/Vol] 13.8 g/dL Normal 12.0-15.0 [facility] Comment on above: Order Comment: No: D o not add to previous draw Performed By: #### 5 0608 #### [facility] [address] [place] [address], [facility] MCH (RBC) [Entitic mass] 30.3 pg Normal 27.0-33.0 [facility] Comment on above: Order Comment: No: D o not add to previous draw Performed By: #### 5 0608 #### [facility] [address] [place] [address], [facility] MCHC (RBC) [Mass/Vol] 31.8 g/dL Low 32.0-35.0 [facility] Comment on above: Order Comment: No: D o not add to previous draw Performed By: #### 5 0608 #### [facility] [address] [place] [address], [facility] MCV (RBC) [Entitic vol] 95.2 fL Normal 82.0-98.0 [facility] Comment on above: Order Comment: No: D o not add to previous draw Performed By: #### 5 0608 #### [facility] [address] [facility] [place] [address], [facility] Nucleated RBC/100 WBC (Bld) [Ratio] 0 % Normal 0-0 [facility] Comment on above: Order Comment: No: D o not add to previous draw Performed By: #### 5 0608 #### [facility] [address] [facility] [place] [address], [facility] PLAT CNT 240 10*3/uL Normal 150-400 [facility] Comment on above: Order Comment: No: D o not add to previous draw Performed By: #### 5 0608 #### [facility] [address] [facility] [place] [address], [facility] RBC (Bld) [#/Vol] 4.56 10*6/uL Normal 3.80-5.00 [facility] Comment on above: Order Comment: No: D o not add to previous draw Performed By: #### 5 0608 #### [facility] [address] [place] [address], [facility] WBC (Bld) [#/Vol] 9.28 10*3/uL Normal 4.00-10.60 [facility] Comment on above: Order Comment: No: D o not add to previous draw Performed By: #### 5 0608 #### [facility] [address] [place] [address], [place] COMP METABOLIC PANELon 01-29 Albumin [Mass/Vol] 4.1 g/dL Normal 3.5-5.7 [facility] Comment on above: Order Comment: No: D o not add to previous draw Performed By: #### 1 0070, [id number], [id number] #### [facility] [address] [place] [address], [place] ALKALINE PHOSPH 50 IU/L Normal 34-104 [facility] Comment on above: Order Comment: No: D o not add to previous draw Performed By: #### 1 0, [id number], [id number] #### [facility] [address] [place] [address], [place] ALT [Catalytic activity/Vol] 14 U/L Normal 7-52 [facility] Comment on above: Order Comment: No: D o not add to previous draw Performed By: #### 1 0, [id number], 16698 #### [facility] [address] [place] [address], [place] AST [Catalytic activity/Vol] 15 U/L Normal 13-39 [facility] Comment on above: Order Comment: No: D o not add to previous draw Performed By: #### 1 0070, [id number], [id number] #### [facility] [address] [place] [address], [place] Bilirubin [Mass/Vol] 0.8 mg/dL Normal 0.3-1.0 [facility] Comment on above: Order Comment: No: D o not add to previous draw Performed By: #### 1 0070, 66652, [id number] #### [facility] [address] [place] [address], [place] Calcium [Mass/Vol] 9.6 mg/dL Normal 8.6-10.3 [facility] Comment on above: Order Comment: No: D o not add to previous draw Performed By: #### 1 0, [id number], 29142 #### [facility] [address] [place] [address], [place] Chloride [Moles/Vol] 103 mmol/L Normal 98-107 [facility] Comment on above: Order Comment: No: D o not add to previous draw Performed By: #### 1 0, , 88630 #### [facility] [address] [place] [address], [place] CO2 [Moles/Vol] 30 mmol/L Normal 21-31 The [facility] Comment on above: Order Comment: No: D o not add to previous draw Performed By: #### 1 0, 10885, 26907 #### [facility] [address] [place] [address], [place] Creatinine [Mass/Vol] 0.71 mg/dL Normal 0.60-1.20 [facility] Comment on above: Order Comment: No: D o not add to previous draw Performed By: #### 1 0, 09145, 31908 #### [facility] [address] [place] [address], [place] GFR/1.73 sq M predicted among blacks MDRD (S/P/Bld) [Vol rate/Area] mL/min/{1.73_m2} Normal >60 [facility] Comment on above: Order Comment: No: D o not add to previous draw Performed By: #### 1 0, 96289, 25213 #### [facility] [address] [place] [address], [place] GFR/1.73 sq M predicted among non-blacks MDRD (S/P/Bld) [Vol rate/Area] mL/min/{1.73_m2} Normal >60 [facility] Comment on above: Order Comment: No: D o not add to previous draw Performed By: #### 1 0, 70011, 58700 #### [facility] [address] [place] [address], [place] Glucose [Mass/Vol] 116 mg/dL High 70-100 [facility] Comment on above: Order Comment: No: D o not add to previous draw Performed By: #### 1 0, 45691, 70043 #### [facility] [address] [place] [address], [place] Potassium [Moles/Vol] 3.9 mmol/L Normal 3.5-5.1 [facility] Comment on above: Order Comment: No: D o not add to previous draw Performed By: #### 1 0, , 12995 #### [facility] [address] [place] [address], [place] Protein [Mass/Vol] 7.6 g/dL Normal 6.0-8.3 [facility] Comment on above: Order Comment: No: D o not add to previous draw Performed By: #### 1 0, , 98222 #### [facility] [address] [place] [address], [place] Sodium [Moles/Vol] 140 mmol/L Normal 136-145 [facility] Comment on above: Order Comment: No: D o not add to previous draw Performed By: #### 1 0, 37060, 94825 #### [facility] [address] [place] [address], [place] Urea nitrogen [Mass/Vol] 18 mg/dL Normal 7-25 [facility] Comment on above: Order Comment: No: D o not add to previous draw Performed By: #### 1 0, 35871, 24573 #### [facility] [address] [place] [address], [place] HEMOGLOBIN A1Con 01-29-2019 HbA1c (Bld) [Mass fraction] 6.1 % High 4.0-6.0 [facility] Comment on above: Order Comment: Yes: Add to Previous draw if able Performed By: #### 5 6101 #### [facility] [address] [place] [address], [place] HbA1c (Bld) [Mass fraction] 128 mg/dL High 70-126 [facility] Comment on above: Order Comment: Yes: Add to Previous draw if able Performed By: #### 5 6101 #### [facility] [address] [place] [address], [place] LIPID PROFILEon 01-29-2019 Cholesterol [Mass/Vol] 130 mg/dL Normal 120-200 [facility] Comment on above: Result Comment: CHOL ESTEROL REFERENCE RANGE: 20 YEARS AND OLDER CARDIOVASCULAR RISK Less than 200 mg/dl Low Risk 200 to 239 mg/dl Borderline Risk 240 mg/dl and greater High Risk Performed By: #### 1 0070, 52981, 71725 #### [facility] [address] [place] [address], [place] Cholesterol in HDL [Mass/Vol] 31 mg/dL Normal 23-92 [facility] Comment on above: Result Comment: Slig ht variation in normal range could be due to gender and/or age. HDL CHOLESTEROL REFERENCE RANGE: 20 years and older Cardiovascular Risk > or =60 mg/dL Desirable 40 TO 59 mg/dL Low Risk <40 mg/dL High Risk Performed By: #### 1 0070, 37744, 75384 #### [facility] [address] [place] [address], [place] Cholesterol in LDL [Mass/Vol] 67 mg/dL Normal 0-130 [facility] Comment on above: Result Comment: LDL IS A CALCULATION LDL IS ONLY VALID IF THE TRIG IS LESS THAN 400. Performed By: #### 1 0, 43989, 82756 #### [facility] [address] [place] [address], [place] Cholesterol.total/C holesterol in HDL [Mass ratio] 4.2 {ratio} Normal .0-4.5 [facility] Comment on above: Performed By: #### 1 0, 11301, 53241 #### [facility] [address] [place] [address], [facility] NON-HDL CHOLESTEROL 99 mg/dL Normal [facility] Comment on above: Performed By: #### 1 0, , 57336 #### [facility] [address] [place] [address], [facility] Triglyceride [Mass/Vol] 158 mg/dL High 40-149 [facility] Comment on above: Result Comment: TRIG LYCERIDE REFERENCE RANGE: 20 YEARS AND OLDER CARDIOVASCULAR RISK LESS THAN 150 mg/dl LOW RISK 150 TO 199 mg/dl BORDERLINE RISK 200 mg/dl AND GREATER HIGH RISK Performed By: #### 1 0, , 23727 #### [facility] [address] [place] [address], [facility] VLDL CHOL 32 mg/dL Normal 0-40 [facility] Comment on above: Performed By: #### 1 0, 69577, 02703 #### [facility] [address] [place] [address], [facility] MAGNESIUM BLOODon 01-29-2019 Magnesium [Mass/Vol] 2.2 mg/dL Normal 1.9-2.7 [facility] Comment on above: Order Comment: No: D o not add to previous draw Performed By: #### 1 0, 71677, 54273 #### [facility] [address] [place] [address], [facility] POC GLUCOSE LABon 01-29-2019 Glucose [Mass/Vol] 102 mg/dL High 70-100 [facility] Comment on above: Performed By: #### 8 5499 #### [facility] [address] [place] [address], [place] Glucose [Mass/Vol] 131 mg/dL High 70-[address] [facility] Comment on above: Performed By: #### 8 5499 #### [facility] [address] PROTHROMBIN TIMEon 9 INR Coag (PPP) [Relative time] 1.39 {INR} High 0.91-1.16 [facility] Comment on above: Order Comment: Yes: [...] 1995;108:231S-246S. Performed By: #### 5 6101 #### [facility] [address] [facility]. [address] PT Coag (PPP) [Time] 17.1 s High 12.3-14.8 [facility] Comment on above: Order Comment: Yes: Add to Previous draw if able Result Comment: ALL RESULTS MUST BE INTERPRETED WITH RESPECT TO BLOOD DRAWING ARTIFACT OR DILUTION ERROR OF ANTICOAGULANT AT THE TIME OF SAMPLING. Performed By: #### 5 6101 #### [facility] [address] BASIC METABOLIC PANELon Calcium [Mass/Vol] 10.1 mg/dL Normal 8.6-10.3 [facility] Comment on above: Performed By: #### 0 0071 #### [facility] [address] [place] [address], [facility] Chloride [Moles/Vol] 100 mmol/L Normal 98-107 [facility] Comment on above: Performed By: #### 0 0071 #### [facility] [address] [place] [address], [place] CO2 [Moles/Vol] 30 mmol/L Normal 21-31 [facility] Comment on above: Performed By: #### 0 0071 #### [facility] [address] [place] [address], [place] Creatinine [Mass/Vol] 0.71 mg/dL Normal 0.60-1.20 [facility] Comment on above: Performed By: #### 0 0071 #### [facility] [address] [place] [address], [place] GFR/1.73 sq M predicted among blacks MDRD (S/P/Bld) [Vol rate/Area] mL/min/{1.73_m2} Normal >60 [facility] Comment on above: Performed By: #### 0 0071 #### [facility] [address] [facility] [place] [place] [address], [place] GFR/1.73 sq M predicted among non-blacks MDRD (S/P/Bld) [Vol rate/Area] mL/min/{1.73_m2} Normal >60 [facility] Comment on above: Performed By: #### 0 0071 #### [facility] [address] [place] [address], [place] Glucose [Mass/Vol] 93 mg/dL Normal 70-100 [facility] Comment on above: Performed By: #### 0 0071 #### [facility] [address] [place] [address], [facility] Potassium [Moles/Vol] 3.7 mmol/L Normal 3.5-5.1 [facility] Comment on above: Performed By: #### 0 0071 #### [facility] [address] [place] [id number], [facility] Sodium [Moles/Vol] 139 mmol/L Normal 136-145 [facility] Comment on above: Performed By: #### 0 0071 #### [facility] [address] [place] [address], [facility] Urea nitrogen [Mass/Vol] 16 mg/dL Normal 7-25 [facility] Comment on above: Performed By: #### 0 1 #### [facility] [address] [facility]. [address] CBC COMPLETE BLOOD COUNTon 0 01-22-2019 Erythrocyte distribution width (RBC) [Ratio] 14.9 % Normal 11.5-15.0 [facility] Comment on above: Performed By: #### 5 0608 #### [facility] [address] [facility] [place] [address], [facility] Hematocrit (Bld) [Volume fraction] 43.0 % Normal 36.0-45.0 [facility] Comment on above: Performed By: #### 5 0608 #### [facility] [address] [facility] [place] [address], [facility] Hemoglobin (Bld) [Mass/Vol] 13.7 g/dL Normal 12.0-15.0 [facility] Comment on above: Performed By: #### 5 0608 #### [facility] [address] [facility] [place] [address], [facility] MCH (RBC) [Entitic mass] 30.0 pg Normal 27.0-33.0 [facility] Comment on above: Performed By: #### 5 0608 #### [facility] [address] MCHC (RBC) [Mass/Vol] 31.9 g/dL Low 32.0-35.0 [facility] Comment on above: Performed By: #### 5 0608 #### [facility] [address] [place] [address], [facility] MCV (RBC) [Entitic vol] 94.3 fL Normal 82.0-98.0 [facility] Comment on above: Performed By: #### 5 0608 #### [facility] [address] Nucleated RBC/100 WBC (Bld) [Ratio] 0 % Normal 0-0 [facility] Comment on above: Performed By: #### 5 0608 #### [facility] [address] PLAT CNT 270 10*3/uL Normal 150-400 The [facility] Comment on above: Performed By: #### 5 0608 #### [facility] [address] [facility] [place] [address], [facility] RBC (Bld) [#/Vol] 4.56 10*6/uL Normal 3.80-5.00 [facility] Comment on above: Performed By: #### 5 0608 #### [facility] [address] [facility] [place] [address], [facility] WBC (Bld) [#/Vol] 9.44 10*3/uL Normal 4.00-10.60 [facility] Comment on above: Performed By: #### 5 0608 #### [facility] [address] PROTHROMBIN TIMEon 9 INR Coag (PPP) [Relative time] 1.85 {INR} High 0.91-1.16 [facility] Comment on above: Result Comment: ACCC [...] 1995;108:231S-246S. Performed By: #### 5 6101 #### [facility] [address] PT Coag (PPP) [Time] 21.4 s High 12.3-14.8 [facility] Comment on above: Result Comment: ALL RESULTS MUST BE INTERPRETED WITH RESPECT TO BLOOD DRAWING ARTIFACT OR DILUTION ERROR OF ANTICOAGULANT AT THE TIME OF SAMPLING. Performed By: #### 5 6101 #### [facility] [address] Encounters Encounter Date Encounter Type Care Provider Facility Start: 01-23-2024 End: 01-23-2024 ambulatory ANITA [facility] Start: 01-11-2024 End: 01-11-2024 ambulatory ANITA [facility] Start: 12-31-2023 End: 12-31-2023 ambulatory YAHIR BROTHERS [facility] Start: 12-26-2023 End: 12-29-2023 Evaluation and management of inpatient COLIN Zina KEITH [facility] Start: 12-25-2023 End: 12-29-2023 Evaluation and management of inpatient BIJAL Vincent BARNHART [facility] Start: 12-21-2023 End: 12-29-2023 Orders Only Korina Oliver MD Work Phone: [facility] Start: 12-20-2023 End: 12-29-2023 Emergency department patient visit [facility] Start: 12-20-2023 End: 12-29-2023 Emergency department patient visit DANAE BRITTON [facility] Start: 12-20-2023 End: 12-28-2023 Evaluation and management of inpatient [facility] Start: 11-01-2023 End: 11-01-2023 ambulatory EBER TRES [facility] Start: 10-31-2023 End: 10-31-2023 ambulatory YAHIR BROTHERS Not Available Start: 09-05-2023 End: 09-05-2023 ambulatory YAHIR BROTHERS Not Available Start: 07-07-2023 End: 07-10-2023 ambulatory YAHIR BROTHERS Not Available Start: 05-23-2023 End: 05-23-2023 ambulatory [facility] Start: 03-02-2023 End: 03-03-[address] DOCTOR LOYOLA Facility:[facility] Start: 02-19-2023 End: 02-19-2023 ambulatory JESSICA ALEGRIAUC [facility] Start: 12-27-2022 End: 12-28-[address] [...] Td Vaccines (2 - Td or Tdap) [facility] Start: 12-20-2024 Adult BMI Screening Adult BMI Screen ing [facility] Start: 12-20-2024 Tobacco Screening Tobacco Screening [facility] Start: 06-22-2023 COVID-19 Vaccine ( season) COVID-19 Vaccine ( season) [facility] Start: 2017 Fall Risk Screening Fall Risk Screen ing [facility] Start: 1970 Adult BMI Follow Up Plan Adult BMI Follow Up Plan [facility] Start: 1964 Depression Screening Depression Scre ening [facility] Start: 1950 Medicare Annual Wellness Visit Medicare Annual Wellness Visit [facility] Immunizations Immunization Date Immunization Notes Care Provider Fa cility 02-04-2021 COVID-19, mRNA, LNP- S, PF, 100mcg/0.5mL Dose Korina Oliver MD Work Phone: [facility] 01-07-2021 COVID-19, mRNA, LNP- S, PF, 100mcg/0.5mL Dose Korina Oliver MD Work Phone: [facility] 08-03-2019 pneumococcal conjuga te vaccine, 13 valent Korina Oliver MD Work Phone: [facility] Payers Date Payer Category Payer Unknown [employer] [id number] 2022-Present [phone] [address] [place] [address] [id number] 1959 Unknown [id number] 1959 Unknown [id number] 1952 Unknown [id number] [id number] 1952 Unknown [id number] 2.16.840.1.900789.3.579.2.593 1952 Unknown [id number] 2.16.840.1.569797.3.579.2.593 1952 Unknown [id number] 2.16.840.1.898308.3.579.2.593 1952 Unknown [id number] 2.16.840.1.638173.3.579.2.1286 1952 Unknown [id number] 2.16.840.1.342098.3.579.2.1286 1952 Unknown [id number] 2.16.840.1.812058.3.579.2.1286 1952 Unknown [id number] 2.16.840.1.560352.3.579.2.1286 1952 Unknown [id number] 2.16.840.1.108213.3.579.2.1286 1952 Unknown [id number] 2.16.840.1.292001.3.579.2.1286 1952 Unknown [id number] 2.16.840.1.674435.3.579.2.1286 1952 Unknown [id number] 2.16.840.1.863753.3.579.2.1286 1952 Unknown [id number] 2.16.840.1.894772.3.579.2.1286 1952 Unknown [id number] 2.16.840.1.529559.3.579.2.1259 1952 Unknown [id number] 2.16.840.1.458653.3.579.2.1259 1952 Unknown [id number] 2.16.840.1.808749.3.579.2.1259 1952 Unknown [id number] 2.16.840.1.347855.3.579.2.1286 Medicare [id number] Social History Date Type Detail Facility Start: 12-20-2023 Tobacco smoking stat us NHIS [facility] End: 03-11-2002 History of tobacco use Current smoker [facility] End: 03-11-2002 History of tobacco use [facility] Start: 12-02-2020 End: 12-20-2023 Cigarettes smoked current (pack per day) - Reported 1 [employer] Start: 12-20-2023 Tobacco use and exposure Smoke less tobacco non-user [facility] Start: 12-21-2023 Alcohol intake [facility]-dr[facility] (finding) [facility] Start: 12-02-2020 End: 12-20-2023 [employer] [facility] Has the [employer], or [employer] threatened to shut off services in your home in past 12Mo No [employer] In the past 12 month s, has lack of transportation kept you from medical appointments or from getting medications? No [employer] Start: 12-20-2023 Tobacco Comment quit 17 years ago [employer] Start: 1950 Sex Assigned At Not on file P [employer] Goals Date Patient Goal Desired Activity /State Personal health goal Comment on above: Formatting of this n ote might be different from the original. Evaluation of progress towards goal: under assessment, pt prefers home with C vs SNF Progress note 01-23-2024 Note Date & Type Note Facility 01-23-2024 Note Division of Infectio us Diseases - Outpatient Clinic Note Patient name: Afia Gill Patient Today's Date and Time: 01/23/2024, 1:36 PM Primary Care Physician: Yahir Brothers MD Reason [...] total weeks of treatment on January 31, 2024.She had completed a hospital follow-up with our service on January 11, 2024, and at that time, she was tolerating her antibiotic therapy. It was plan for her to continue on treatment through completion. The patient is completing a subsequent follow-up with our service today to evaluate for any other change of symptoms.She reports today she has continued to receive her antibiotics as prescribed and has not experienced any side effects with either antibiotic. She denied having any fevers or chills. She also denied having any chest pain, shortness of breath, abdominal pain, nausea, vomiting, or diarrhea. She reports the pain of her bilateral feet has significantly improved, and she has been ambulating using a walker. She denied any other concerns at this time. Past Medical History: Past Medical History: Diagnosis Date Atrial fibrillation ([facility]) CHF (congestive heart failure) ([facility]) Hypertension Pulmonary embolism ([facility]) Past Surgical History: Past Surgical History: Procedure Laterality Date CARDIAC CATHETERIZATION CARPAL TUNNEL RELEASE CHOLECYSTECTOMY HYSTERECTOMY IR INTERVENTION FILTER PLACEMENT REPLACEMENT TOTAL KNEE ONCOLOGIC TONSILLECTOMY Medications: Social History: Social History Socioeconomic History Marital status: Spouse name: Not on file Number of children: Not on file Years of education: Not on file Highest education level: Not on file Occupational History Not on file Tobacco Use Smoking status: Former Types: Cigarettes Smokeless tobacco: Never Substance and Sexual Activity Alcohol use: Never Drug use: Never Sexual activity: Not on file Other Topics Concern Not on file Social History Narrative Not on file Social Determinants of Health Financial Resource Strain: Not on file Food Insecurity: Not on file Transportation Needs: Not on file Physical Activity: Not on file Stress: Not on file Social Connections: Not on file Intimate Partner Violence: Unknown (12/13/2023) [place] Safety & Environment Fear of Current or [...] No increased urinary frequency, or dysuria. Musculoskeletal: No muscle aches or pains. Hematologic: No bleeding or bruising. Neurologic: No headache, weakness, numbness, or tingling. Objective Physical Examination: Vitals: 01/23/24 0953 BP: 127/84 BP Location: Left arm Patient Position: Sitting BP Cuff Size: Large adult Pulse: 78 Resp: 16 SpO2: 96% Height: 1.575 m (5' 2 ) G (more content not included)... [facility] Progress note 01-11-2024 Note Date & Type [...] today she has been residing at a long term facility. Her son was present via telephone [...] Atrial fibrillation (CMS/HCC) CHF (congestive heart failure) ([facility]/HCC) Hypertension Pulmonary embolism (CMS/[facility]) Past Surgical History: Past Surgical History: Procedure [...] on file Intimate Partner Violence: Unknown (12/13/2023) [place] Safety & Environment Fear of Current or [...] kg (304 lb) (more content not included)... [facility] Progress note 11-01-2023 Note Date & Type Note Facility 11-01-2023 Note [facility]ovascular [facility] SUBJECTIVE Chief Complaint Patient presents with Atrial Fibrillation Congestive Heart Failure Afia Gill is a 73 y.o. female here for follow-up. HPI Hx: *Atrial fibrillation *NSVT *Systolic heart failure *Pulmonary embolism in 2004 status post left total knee arthroplasty. *Heparin-induced thrombocytopenia. *Pulmonary hypertension by echocardiogram. *Obstructive sleep apnea, on CPAP. *Status post [place] filter. *Morbid obesity. *Continuous oxygen. *Abnormal stress [...] CHF (congestive heart failure), NYHA class 4 ([facility]/HCC) Other chronic pain Past Medical History: Diagnosis Date Atrial fibrillation (CMS/HCC) CHF (congestive heart failure) (CMS/HCC) Hypertension Pulmonary embolism ([facility]/HCC) Family History Problem Relation Name Age of [...] Disp: , Rfl (more content not included)... [facility] Progress note 11-01-2023 Note Date & [...] All other systems reviewed and are negative. [facility] Progress note 05-23-2023 Note Date & Type Note Facility 05-23-2023 Note [place] [facility] Subjective Afia Gill is a [...] filling pressures. She (more content not included)... [facility] Progress note 02-19-2023 Note Date & [...] All other systems reviewed and are negative. [facility] Progress note 02-19-2023 Note Date & [...] Obstructive sleep apnea, on CPAP. Status post [place] filter. Morbid obesity. She is currently on oxygen since December 20, 2018. Holter done to investigate palpitations showed atrial fibrillation with NSVT. Stress test 01/13/2019;1. Fixed versus minimally reversible perfusion defect of the anterior septal wall and apex. 2. Marked cardiomegaly and markedly low ejection fraction, 36%. 3. Dyskinesia of the apex with otherwise global moderate hypokinesis. Echocardiogram 2 (more content not included)... [facility] Instructions Note Date & Type Note [...] 9:14 PM Hospital Course Note MR#: [id number] [facility] Pt. Name: Afia Gill Admitted: [...] and content) DATE CREATED AUTHOR 06/17/2019 [facility] DATE CREATED AUTHOR AUTHOR'S ORGANIZ ATION 03/03/2023 [facility] DATE CREATED AUTHOR AUTHOR'S ORGANIZ ATION 12/29/2023 [facility] DATE CREATED AUTHOR AUTHOR'S ORGANIZ ATION 12/29/[address] [facility] dical Specialists [facility] DATE CREATED AUTHOR AUTHOR'S ORGANIZ ATION 12/31/2023 [facility] DATE CREATED AUTHOR AUTHOR'S ORGANIZ ATION 01/24/2024 [facility] Care Teams (unrecognized sec tion and content) [employer] Relationship Specialty Start Date End Date Yahir Brothers MD [address] [facility] [address] [place] [address] PCP - General Internal Medicine 12/20/23 FOR [...] BE BASED ON THE PRIMARY CLINICAL RECORDS. [employer] provides no warranty or guarantee of the accuracy or completeness of information in this document.
[2024-01-25 08:07] LABS: Basophils Percent Auto 0.3 % (0.2-2.0); Eosinophils Absolute Auto 0.7 10^3/uL (0.0-0.7); Eosinophils Percent Auto 5.2 % (0.9-7.0); Hematocrit 39.8 % (36.0-48.0); Hemoglobin 12.4 g/dL (12.0-16.0); Immature Granulocytes Abs Auto 0.06 10^3/uL (0.00-0.03); Immature Granulocytes Pct Auto 0.4 % (0.0-0.5); Lymphocytes Absolute Auto 3.2 10^3/uL (1.2-3.8); Lymphocytes Percent Auto 23.5 % (20.5-60.0); Mean Corpuscular HGB Conc 31.2 g/dL (29.9-35.2); Mean Corpuscular Hemoglobin 28.4 pg (26.7-34.0); Mean Corpuscular Volume 91.1 fL (81.0-99.0); Mean Platelet Volume 10.6 fL (9.5-13.5); Monocytes Absolute Auto 0.9 10^3/uL (0.3-0.8); Monocytes Percent Auto 6.3 % (1.7-12.0); Neutrophils Absolute Auto 8.7 10^3/uL (1.4-6.5); Neutrophils Percent Auto 64.3 % (43.0-75.0); Platelet Count 231 10^3/uL (150-450); Red Blood Count 4.37 10^6/uL (4.20-5.40); Red Cell Distribution Width 14.5 % (11.0-15.0); White Blood Count 13.5 10^3/uL (4.0-11.0)
[2024-01-25 08:44] LABS: Alanine Aminotransferase 26 U/L (14-59); Albumin Globulin Ratio 0.7; Alkaline Phosphatase 102 U/L (46-116); Anion Gap 9.9; Aspartate Amino Transferase 19 U/L (15-37); Bilirubin Direct <0.1 mg/dL (0.0-0.2); Bilirubin Total 0.2 mg/dL (0.2-1.0); Carbon Dioxide 31.6 mmol/L (21.0-32.0); Chloride 101 mmol/L (98-107); Creatine Kinase 86 U/L (26-192); Estimated GFR (African America >60 (>=60); Estimated GFR (Non-African Ame >60 (>=60); Globulin 4.5 g/dL; Glucose 132 mg/dL (74-106); Potassium 3.5 mmol/L (3.5-5.1); Sodium 139 mmol/L (136-145); Total Protein 7.5 g/dL (6.4-8.2)
== END 2024-01-25 03:01 | disposition home or self-care (01) ==
LOC: LAB 03:00
PROVIDERS: PCP Internal Medicine; Visit Provider Family Medicine
DX: D72.829 Elevated white blood cell count, unspecified (principal); M86.9 Osteomyelitis, unspecified
CPT/HCPCS: 36415; 80048; 80076; 81003; 82550; 85025; 85610

== ENCOUNTER 2024-01-25 13:06 | Outpatient (REF) | payer MEDICARE, SELFPAY ==
[2024-01-25 13:45] LABS: Bilirubin Urine NEGATIVE (NEGATIVE); Blood Urine NEGATIVE (NEGATIVE); Clarity Urine CLEAR (CLEAR); Color Urine LT. YELLOW (YELLOW); Glucose Urine UA NEGATIVE (NEGATIVE); Ketones Urine NEGATIVE (NEGATIVE); Leukocyte Esterase Urine NEGATIVE (NEGATIVE); Nitrite Urine NEGATIVE (NEGATIVE); Protein Urine NEGATIVE (NEG/TRACE); Urobilinogen Urine 0.2 EU/dL (0.2-1.0); pH Urine 6.5 (5.0-9.0)
[2024-01-25 13:46] LABS: Urine Microscopic Indicated NO
== END 2024-01-25 13:07 | disposition home or self-care (01) ==
LOC: LAB 13:06
PROVIDERS: PCP Internal Medicine; Visit Provider Family Medicine
DX: D72.829 Elevated white blood cell count, unspecified (principal)
CPT/HCPCS: 81003

== ENCOUNTER 2024-01-28 02:28 | Outpatient (REF) | payer MEDICARE, SELFPAY ==
--- OUTSIDE RECORDS SUMMARY | 2024-01-28 02:31 | XMS_ITS | CCD ---
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 Care Wire Basket Maker Name Role Phone YAHIR BROTHERS Referring Unavailable YAHIR BROTHERS Primary Care Unavailable AHMED, LAN Attending Unavailable AHMED LAN Admitting Unavailable [place] Procedure Practitioner Unavailab le UNKNOWN, PROVIDER Surgeon [...] Care Unavailable ANDREA, DR GAO Consulting Unavailable LOWELL, DR JEANETTE Armenta Consulting Unavailable Yahir Brothers MD Primary Care Provider [phone] RAND CRAWFORD Attending Unavailable YAHIR BROTHERS Primary Care Unavailable KORINA OLIVER Admitting Unavailable DANIEL BIRMINGHAM Consulting Unavailable DIVISION OF INFECTIOUS DISEASE, [facility] Consulting Unavailable YAYA KUMAR Consulting Unavailable DANAE [...] (1 source) Estrogens Drug Allergy 9 [facility] Rep[facility] (1 source) heparin Drug Allergy 9 [facility] (2 sources) Penicillins; Translations: [PENICILLINS] Drug allergy (disorder) 9 [facility] (2 sources) pregabalin Drug Allergy 9 [facility] (6 sources) Bleach (Sodium Hypochlorite); Translations: [Bleach (Sodium Hypochlorite)] Propensity to adverse reactions (disorder) 9 [facility] (4 sources) Aztreonam; Translations: [ESTROGENS, CONJUGATED] Drug Allergy 9 [facility] (1 source) heparin Drug Allergy [facility] (5 sources) Penicillin; Translations: [PENICILLIN] Drug Allergy 9 [facility] (1 source) Misc-ENV; Translations: [Misc-ENV] Propensity to adverse reactions (disorder) [facility] (1 source) Estrogens, Conjugated (NURSING HOME) Drug Allergy 9 [facility] (4 sources) heparin; Translations: [HEPARIN (PORCINE)] Drug Allergy 9 [facility] (4 sources) pregabalin; Translations: [PREGABALIN] Drug Allergy 9 [facility] (3 sources) Other; Translations: [OTHER] Propensity to adverse reactions 1 Rash [facility] (1 source) heparin; Translations: [HEPARIN SODIUM, PORCINE] Drug Allergy 1 [facility] Medications Completed/Discontinued Medications Medication Drug [...] Facility 36on 01-23-2024 36 Message left for gimler Ugalde at the SNF that pt may end treatment 01/30 as scheduled and may have her picc line removed. Normal [facility] Follow-Upon 01-23-2024 Follow-Up [id number] Maximo Gill A 1950 F Date Provider Department Center 01/23/2024 ANITA JONES [facility] Family History Problem Relation Age of Onset Heart attack Father Diabetes Father Hypertension Father Coronary artery disease Father Rheum arthritis Father Family Status - Relation Status Age at Father Level of Service:10630 [place] OFFICE/OUTPATIENT ESTABLISHED MOD MDM 30 MIN Reason for Visit and Comments: Follow-up [460383] - Pt is here for evaluation of [...] walk which were both difficult before. Normal [facility] 36on 01-22-2024 36 I attempted to call [facility] to get an updated copy of this patient's labs, but the phone rang through without an answer. The patient is following up tomorrow. [facility] Telephoneon 01-22-2024 Telephone [phone] Maximo Gill tiffanie A 1950 F Date Provider Department Center 01/22/2024 [facility] History Problem Relation Age of Onset Heart attack Father Diabetes Father Hypertension Father Coronary artery disease Father Rheum arthritis Father Family Status - Relation Status Age at Father Normal [facility] Follow-Upon 01-11-2024 Follow-Up [id number] Maximo Gill tiffanie A 1950 F Date Provider Department Center 01/11/2024 ANITA JONES [facility] Family History Problem Relation Age of Onset Heart attack Father Diabetes Father Hypertension Father Coronary artery disease Father Rheum arthritis Father Family Status - Relation Status Age at Father Level of Service:97333 [place] OFFICE/OUTPATIENT ESTABLISHED MOD MDM 30 MIN Reason for Visit and Comments: PPD Read [[id number]] - Follow up Toes feel better Normal [facility] 36on 01-09-2024 36 Opat received. Call to [facility] and confirmed orders. Labs will be drawn 01/09. Staff was not aware of the appt today so the visit is rescheduled for 01/10. Normal [facility] CBC AND AUTO DIFFon 12-28-19 24 ABSOLUTE BASOPHIL 0.1 X10E9/L Normal 0.0-0.2 [facility] Comment on above: Performed By: #### U A #### [facility] ([id number]) [address] [place] [address] 25928 ABSOLUTE NEUTROPHIL 9.5 X10E9/L High 1.5-6.6 [facility] Comment on above: Performed By: #### U A #### [facility] ([id number]) [address] [place] [address] 18726 Basophils/100 WBC (Bld) 0.5 % Normal [facility] Comment on above: Performed By: #### U A #### [facility] ([id number]) [address] [place] [address] 29850 Eosinophils (Bld) [#/Vol] 0.8 10*3/uL High 0.0-0.4 [facility] Comment on above: Performed By: #### U A #### [facility] ([id number]) [address] [place] [address] 31751 Eosinophils/100 WBC (Bld) 5.8 % Normal [facility] Comment on above: Performed By: #### U A #### [facility] ([id number]) [address] [place] [address] 38838 Erythrocyte distribution width (RBC) [Ratio] 13.6 % Normal 11.5-15.0 [facility] Comment on above: Performed By: #### U A #### [facility] ([id number]) [address] [place] [address] 03600 Hematocrit (Bld) [Volume fraction] 35.5 % Normal 35-47 [facility] Comment on above: Performed By: #### U A #### [facility] ([id number]) [address] [place] [address] 58795 Hemoglobin (Bld) [Mass/Vol] 11.9 g/dL Normal 11.7-15.5 [facility] Comment on above: Performed By: #### U A #### [facility] ([id number]) [address] [place] [address] 96765 Lymphocytes (Bld) [#/Vol] 2.6 10*3/uL Normal 1.0-3.5 [facility] Comment on above: Performed By: #### U A #### [facility] ([id number]) [address] [place] [address] 37642 Lymphocytes/100 WBC (Bld) 19.1 % Normal [facility] Comment on above: Performed By: #### U A #### [facility] ([id number]) [address] [place] [address] 64749 MCH (RBC) [Entitic mass] 28.7 pg Normal 27-34 [facility] Comment on above: Performed By: #### U A #### [facility] ([id number]) [address] [place] [address] [place] [address] MCHC (RBC) [Mass/Vol] 33.4 g/dL Normal 32-36 [facility] Comment on above: Performed By: #### U A #### [facility] ([id number]) [address] [place] [address] 13533 MCV (RBC) [Entitic vol] 86 fL Normal 80-100 [facility] Comment on above: Performed By: #### U A #### [facility] ([id number]) [address] [place] [address] 26961 Monocytes (Bld) [#/Vol] 0.7 10*3/uL Normal 0-0.9 [facility] Comment on above: Performed By: #### U A #### [facility] ([id number]) [address] [place] [address] 51602 Monocytes/100 WBC (Bld) 5.3 % Normal [facility] Comment on above: Performed By: #### U A #### [facility] ([id number]) [address] [place] [address] 66013 Neutrophils/100 WBC (Bld) 69.3 % Normal [facility] Comment on above: Performed By: #### U A #### [facility] ([id number]) [address] [place] [address] 48071 Platelet mean volume (Bld) [Entitic vol] 8.7 fL Normal 7-12 [facility] Comment on above: Performed By: #### U A #### [facility] ([id number]) [address] [place] [address] 55513 Platelets (Bld) [#/Vol] 335 10*3/uL Normal 150-450 [facility] Comment on above: Performed By: #### U A #### [facility] ([id number]) [address] [place] [address] 33963 RBC COUNT 4.13 X10E12/L Normal 3.80-5.20 [facility] Comment on above: Performed By: #### U A #### [facility] ([id number]) [address] [place] [address] 91867 WBC (Bld) [#/Vol] 13.7 10*3/uL High 4.0-11.0 [facility] Comment on above: Performed By: #### U A #### [facility] ([id number]) [address] [place] [address] 70559 COMPREHENSIVE METABOLIC PANE Tyr[place] 12-28-2023 Albumin [Mass/Vol] 3.1 g/dL Low 3.2-5.3 [facility] Comment on above: Performed By: #### U A #### [facility] ([id number]) [address] [place] [address] 96284 ALP [Catalytic activity/Vol] 68 U/L Normal 39-130 [facility] Comment on above: Performed By: #### U A #### [facility] ([id number]) [address] [place] [address] 55997 ALT [Catalytic activity/Vol] 21 U/L Normal 0-31 [facility] Comment on above: Performed By: #### U A #### [facility] ([id number]) [address] [place] [address] 14148 Anion gap [Moles/Vol] 10 mmol/L Normal 5-15 [facility] Comment on above: Performed By: #### U A #### [facility] ([id number]) [address] [place] [address] 55533 AST [Catalytic activity/Vol] 21 U/L Normal 0-41 [facility] Comment on above: Performed By: #### U A #### [facility] ([id number]) [address] [place] [address] 36334 Bilirubin [Mass/Vol] 0.4 mg/dL Normal 0.3-1.2 [facility] Comment on above: Performed By: #### U A #### [facility] ([id number]) [address] [place] [address] 97540 Calcium [Mass/Vol] 8.6 mg/dL Normal 8.5-10.5 [facility] Comment on above: Performed By: #### U A #### [facility] ([id number]) [address] [place] [address] 35035 Chloride [Moles/Vol] 98 mmol/L Normal 98-109 [facility] Comment on above: Performed By: #### U A #### [facility] ([id number]) [address] [place] [address] 22945 CO2 [Moles/Vol] 31 mmol/L Normal 22-32 [facility] Comment on above: Performed By: #### U A #### [facility] ([id number]) [address] [place] [address] 44934 Creatinine [Mass/Vol] 0.72 mg/dL Normal 0.40-1.00 [facility] Comment on above: Result Comment: METH OD TRACEABLE TO IDMS STANDARD Performed By: #### U A #### [facility] ([id number]) [address] [place] [address] 55933 GFR/1.73 sq M.predicted among non-blacks MDRD (S/P/Bld) [Vol rate/Area] 89 mL/min/{1.73_m2} Normal >59 [facility] Comment on above: Result Comment: Reported eGFR is based on the CKD-EPI 1 equation that does not use a race coefficient. Performed By: #### U A #### [facility] ([id number]) [address] [place] [address] 77074 Glucose [Mass/Vol] 123 mg/dL High 65-99 [facility] Comment on above: Performed By: #### U A #### [facility] ([id number]) [address] [place] [address] 19269 Potassium [Moles/Vol] 3.7 mmol/L Normal 3.5-5.0 [facility] Comment on above: Performed By: #### U A #### [facility] ([id number]) [address] [place] [address] 79795 Protein [Mass/Vol] 7.1 g/dL Normal 6.0-8.0 [facility] Comment on above: Performed By: #### U A #### [facility] ([id number]) [address] [place] [address] 72367 Sodium [Moles/Vol] 139 mmol/L Normal 134-146 [facility] Comment on above: Performed By: #### U A #### [facility] ([id number]) [address] [place] [address] 29948 Urea nitrogen [Mass/Vol] 16 mg/dL Normal 5-27 [facility] Comment on above: Performed By: #### U A #### [facility] ([id number]) [address] [place] [address] 30144 MAGNESIUMon 12-28-2023 Magnesium [Mass/Vol] 2.3 mg/dL Normal 1.8-2.6 [facility] Comment on above: Performed By: #### U A #### [facility] ([id number]) [address] [place] [address] 84907 PROTIME AND INRon 12-28-2023 INR Coag (PPP) [Relative time] 2.5 {INR} High 0.8-1.1 [facility] Comment on above: Performed By: #### U A #### [facility] ([id number]) [address] [place] [address] 35213 PT Coag (PPP) [Time] 28.0 s High 9.8-13.2 [facility] Comment on above: Result Comment: NEW REFERENCE RANGE Performed By: #### U A #### [facility] ([id number]) [address] [place] [address] 68345 Vancomycin trough [Mass/Vol] on 12-28-2023 VANCOMYCIN TROUGH 26.7 ug/mL Critically high 5.0-20.0 Pr [facility] Comment on above: Performed By: #### U A #### [facility] ([id number]) [address] [place] [address] 77721 CBC AND AUTO DIFFon 12-27-19 ABSOLUTE BASOPHIL 0.0 X10E9/L Normal 0.0-0.2 [facility] Comment on above: Performed By: #### Chanel ERICKSON, [facility], 1986-02 #### [facility] ([id number]) [address] [place] [address] 13565 #### 64956-9 #### [facility] ([id number]) [address], [address] [place] [address] ABSOLUTE NEUTROPHIL 8.9 X10E9/L High 1.5-6.6 [facility] Comment on above: Performed By: #### Chanel ERICKSON, [facility], 1986-02 #### [facility] ([id number]) [address] [place] [address] 03047 #### 00547-9 #### [facility] ([id number]) [address], [address] [place] [address] Basophils/100 WBC (Bld) 0.3 % Normal [facility] Comment on above: Performed By: #### Chanel ERICKSON, CMP, 1986-02 #### [facility] ([id number]) [address] [place] [address] 72947 #### 02259-6 #### [facility] ([id number]) [address], [address] [place] [address] Eosinophils (Bld) [#/Vol] 0.8 10*3/uL High 0.0-0.4 [facility] Comment on above: Performed By: #### Chanel BCA, CMP, 1986-02 #### [facility] ([id number]) [address] [place] [address] 51489 #### 14071-0 #### [facility] ([id number]) [address] [facility] [place] [address] Eosinophils/100 WBC (Bld) 6.1 % Normal [facility] Comment on above: Performed By: #### Chanel ERICKSON CMP, 1986-02 #### [facility] ([id number]) [address] [place] [address] 96081 #### 60270-6 #### [facility] ([id number]) [address] [facility] [place] [address] Erythrocyte distribution width (RBC) [Ratio] 13.7 % Normal 11.5-15.0 [facility] Comment on above: Performed By: #### Chanel ERICKSON CMP, 1986-02 #### [facility] ([id number]) [address] [place] [address] 06759 #### 13130-1 #### [facility] ([id number]) [address] [facility] [place] [address] Hematocrit (Bld) [Volume fraction] 34.5 % Low 35-47 [facility] Comment on above: Performed By: #### Chaenl ERICKSON CMP, 1986-02 #### [facility] ([id number]) [address] [place] [address] 50283 #### 06439-2 #### [facility] ([id number]) [address] [facility] [place] [address] Hemoglobin (Bld) [Mass/Vol] 11.5 g/dL Low 11.7-15.5 [facility] Comment on above: Performed By: #### Chanel ERICKSON CMP, 1986-02 #### [facility] ([id number]) [address] [place] [address] 56443 #### 91098-7 #### [facility] ([id number]) [address] [place] [address] Lymphocytes (Bld) [#/Vol] 2.4 10*3/uL Normal 1.0-3.5 [facility] Comment on above: Performed By: #### Chanel ERICKSON CMP, 1986-02 #### [facility] ([id number]) [address] [place] [address] 14928 #### 26152-0 #### [facility] ([id number]) [address] [facility] [place] [address] Lymphocytes/100 WBC (Bld) 18.4 % Normal [facility] Comment on above: Performed By: #### Chanel ERICKSON CMP, 1986-02 #### [facility] ([id number]) [address] [place] [address] 72558 #### 82118-3 #### [facility] ([id number]) [address] [place] [address] MCH (RBC) [Entitic mass] 28.8 pg Normal 27-34 [facility] Comment on above: Performed By: #### Chanel ERICKSON CMP, 1986-02 #### [facility] ([id number]) [address] [place] [address] 35814 #### 80034-8 #### [facility] ([id number]) [address] [place] [address] MCHC (RBC) [Mass/Vol] 33.3 g/dL Normal 32-36 [facility] Comment on above: Performed By: #### Chanel ERICKSON CMP, 1986-02 #### [facility] ([id number]) [address] [place] [address] 05934 #### 06246-4 #### [facility] ([id number]) [address] [place] [address] MCV (RBC) [Entitic vol] 87 fL Normal 80-100 [facility] Comment on above: Performed By: #### Chanel ERICKSON CMP, 1986-02 #### [facility] ([id number]) [address] [place] [address] 55951 #### 01735-3 #### [facility] ([id number]) [address] [place] [address] Monocytes (Bld) [#/Vol] 0.9 10*3/uL Normal 0-0.9 [facility] Comment on above: Performed By: #### Chanel ERICKSON CMP, 1986-02 #### [facility] ([id number]) [address] [place] [address] 76538 #### 82197-1 #### [facility] ([id number]) [address] [place] [address] Monocytes/100 WBC (Bld) 7.1 % Normal [facility] Comment on above: Performed By: #### Chanel ERICKSON CMP, 1986-02 #### [facility] ([id number]) [address] [place] [address] 02262 #### 91913-1 #### [facility] ([id number]) [address] [place] [address] Neutrophils/100 WBC (Bld) 68.1 % Normal [facility] Comment on above: Performed By: #### Chanel ERICKSON CMP, 1986-02 #### [facility] ([id number]) [address] [place] [address] 34875 #### 67611-5 #### [facility] ([id number]) [address] [place] [address] Platelet mean volume (Bld) [Entitic vol] 8.7 fL Normal 7-12 [facility] Comment on above: Performed By: #### Chanel ERICKSON CMP, 1986-02 #### [facility] ([id number]) [address] [place] [address] 91417 #### 36025-2 #### [facility] ([id number]) [address] [place] [address] Platelets (Bld) [#/Vol] 323 10*3/uL Normal 150-450 [facility] Comment on above: Performed By: #### Chanel ERICKSON CMP, 1986-02 #### [facility] ([id number]) [address] [place] [address] 21257 #### 56475-6 #### [facility] ([id number]) [address] [facility] [place] [address] RBC COUNT 3.98 X10E12/L Normal 3.80-5.20 [facility] Comment on above: Performed By: #### Chanel ERICKSON CMP, 1986-02 #### [facility] ([id number]) [address] [place] [address] 89544 #### 24926-1 #### [facility] ([id number]) [address] [place] [address] WBC (Bld) [#/Vol] 13.1 10*3/uL High 4.0-11.0 [facility] Comment on above: Performed By: #### Chanel ERICKSON CMP, 1986-02 #### [facility] ([id number]) [address] [place] [address] 74576 #### 07693-2 #### [facility] ([id number]) [address] [facility] [place] [address] COMPREHENSIVE METABOLIC PANE Tyr[place] 12-27-2023 Albumin [Mass/Vol] 3.0 g/dL Low 3.2-5.3 [facility] Comment on above: Performed By: #### Chanel ERICKSON CMP, 1986-02 #### [facility] ([id number]) [address] [place] [address] 40701 #### 03822-5 #### [facility] ([id number]) [address] [place] [address] ALP [Catalytic activity/Vol] 68 U/L Normal 39-130 [facility] Comment on above: Performed By: #### Chanel ERICKSON [facility], 1986-02 #### [facility] ([id number]) [address] [place] [address] 81025 #### 38429-4 #### [facility] ([id number]) [address] [place] [address] ALT [Catalytic activity/Vol] 17 U/L Normal 0-31 [facility] Comment on above: Performed By: #### Chanel [facility], 1988-02 #### [facility] ([id number]) [address] [place] [address] #### [id number] #### [facility] ([id number]) [address], [address] [place] [address] Anion gap [Moles/Vol] 8 mmol/L Normal 5-15 [facility] Comment on above: Performed By: #### C DRE CMP, 1988-02 #### [facility] [facility] ([id number]) [address] [place] [address] 24247 #### 04880-4 #### [facility] ([id number]) [address], [address] [place] [address] AST [Catalytic activity/Vol] 16 U/L Normal 0-41 [facility] Comment on above: Performed By: #### C BCA, CMP, 1988-02 #### [facility] ([id number]) [address] [place] [address] 95530 #### 98138-1 #### [facility] ([id number]) [address], [address] [place] [address] Bilirubin [Mass/Vol] 0.5 mg/dL Normal 0.3-1.2 [facility] Comment on above: Performed By: #### C BCA, CMP, 1988-02 #### [facility] ([id number]) [address] [place] [address] 50402 #### 56865-7 #### [facility] ([id number]) [address], [address] [place] [address] Calcium [Mass/Vol] 8.3 mg/dL Low 8.5-10.5 [facility] Comment on above: Performed By: #### C BCA, CMP, 1988-02 #### [facility] ([id number]) [address] [place] [address] 54542 #### 82407-8 #### [facility] ([id number]) [address] [place] [address] Chloride [Moles/Vol] 99 mmol/L Normal 98-109 [facility] Comment on above: Performed By: #### C BCA, CMP, 1988-02 #### [facility] ([id number]) [address] [place] [address] 62282 #### 45214-2 #### [facility] ([id number]) [address], [address] [place] [address] CO2 [Moles/Vol] 31 mmol/L Normal 22-32 [facility] Comment on above: Performed By: #### C BCA, CMP, 1988-02 #### [facility] ([id number]) [address] [place] [address] 00832 #### 67250-1 #### [facility] ([id number]) [address], [address] [place] [address] Creatinine [Mass/Vol] 0.71 mg/dL Normal 0.40-1.00 [facility] Comment on above: Result Comment: METH OD TRACEABLE TO IDMS STANDARD Performed By: #### C DRE [facility], 1988-02 #### [facility] ([id number]) [address] [place] [address] 98291 #### 29425-2 #### [facility] ([id number]) [address], [address] [place] [address] eGFR (CKD-EPI) NON-RACE DEPENDENT >90 Normal >59 [facility] Comment on above: Result Comment: Reported eGFR is based on the CKD-EPI 2020 equation that does not use a race coefficient. Performed By: #### Chanel ERICKSON [facility], 1988-02 #### [facility] ([id number]) [address] [place] [address] 98948 #### 06548-2 #### [facility] ([id number]) [address], [address] [place] [address] Glucose [Mass/Vol] 119 mg/dL High 65-99 [facility] Comment on above: Performed By: #### Chanel ERICKSON [facility], 1988-02 #### [facility] ([id number]) [address] [place] [address] 12351 #### [id number] #### [facility] ([id number]) [address] [place] [address] Potassium [Moles/Vol] 3.6 mmol/L Normal 3.5-5.0 [facility] Comment on above: Performed By: #### Chanel ERICKSON [facility], 1988-02 #### [facility] ([id number]) [address] [place] [address] 13544 #### 33049-0 #### [facility] ([id number]) [address] [place] [address] Protein [Mass/Vol] 7.0 g/dL Normal 6.0-8.0 [facility] Comment on above: Performed By: #### C DRE [facility], 1988-02 #### [facility] ([id number]) [address] [place] [address] 33627 #### 34055-0 #### [facility] ([id number]) [address], [address] [place] [address] Sodium [Moles/Vol] 138 mmol/L Normal 134-146 [facility] Comment on above: Performed By: #### Chanel ERICKSON [facility], 1988-02 #### [facility] ([id number]) [address] [place] [address] 31799 #### 50207-8 #### [facility] ([id number]) [address], [address] [place] [address] Urea nitrogen [Mass/Vol] 18 mg/dL Normal 5-27 [facility] Comment on above: Performed By: #### Chanel ERICKSON [facility], 1988-02 #### [facility] ([id number]) [address] [place] [address] 51135 #### 07139-1 #### [facility] ([id number]) [address], [address] [place] [address] Glucose Glucometer (BldC) [M ass/Vol]on 12-27-2023 Glucose [Mass/Vol] 149 mg/dL High 65-99 [facility] Glucose [Mass/Vol] 156 mg/dL High 65-99 [facility] Glucose [Mass/Vol] 181 mg/dL High 65-99 [facility] MAGNESIUMon 12-27-2023 Magnesium [Mass/Vol] 2.3 mg/dL Normal 1.8-2.6 [facility] Comment on above: Performed By: #### U A #### [facility] ([id number]) [address] [place] [address] 256[address] PROTIME AND INRon 12-27-2023 INR Coag (PPP) [Relative time] 2.9 {INR} High 0.8-1.1 [facility] Comment on above: Performed By: #### Chanel ERICKSON [facility], 1988-02 #### [facility] ([id number]) [address] [place] [address] 68598 #### 86061-3 #### [facility] ([id number]) [address] [place] [address], [address] [place] [address] PT Coag (PPP) [Time] 32.6 s High 9.8-13.2 [facility] Comment on above: Result Comment: NEW REFERENCE RANGE Performed By: #### Chanel ERICKSON CMP, 1988-02 #### [facility] ([id number]) [address] [place] [address] 06281 #### 26548-1 #### [facility] ([id number]) [address] [place] [address], [address] [place] [address] CBC AND AUTO DIFFon 12-26-19 24 ABSOLUTE BASOPHIL 0.1 X10E9/L Normal 0.0-0.2 [facility] Comment on above: Performed By: #### Chanel ERICKSON CMP, 1988-02 #### [facility] ([id number]) [address] [place] [address] 75163 #### 60882-2 #### [facility] ([id number]) [address] [place] [address], [address] [place] [address] ABSOLUTE NEUTROPHIL 11.1 X10E9/L High 1.5-6.6 [facility] Comment on above: Performed By: #### Chanel ERICKSON [facility], 1988-02 #### [facility] ([id number]) [address] [place] [address] 17929 #### 24512-9 #### [facility] ([id number]) [address] [facility] [place] [address] Basophils/100 WBC (Bld) 0.4 % Normal [facility] Comment on above: Performed By: #### Chanel ERICKSON [facility], 1988-02 #### [facility] ([id number]) [address] [place] [address] 32900 #### 38650-7 #### [facility] ([id number]) [address] [facility] [facility] [place] [address] Eosinophils (Bld) [#/Vol] 0.8 10*3/uL High 0.0-0.4 [facility] Comment on above: Performed By: #### Chanel ERICKSON [facility], 1988-02 #### [facility] ([id number]) [address] [place] [address] 51103 #### 24038-7 #### [facility] ([id number]) [address] [facility] [place] [address] Eosinophils/100 WBC (Bld) 5.4 % Normal [facility] Comment on above: Performed By: #### Chanel ERICKSON [facility], 1988-02 #### [facility] ([id number]) [address] [place] [address] 93594 #### 84538-7 #### [facility] ([id number]) [address] [facility] [place] [address] Erythrocyte distribution width (RBC) [Ratio] 13.9 % Normal 11.5-15.0 [facility] Comment on above: Performed By: #### Chanel ERICKSON [facility], 1988-02 #### [facility] ([id number]) [address] [place] [address] 33753 #### 71670-0 #### [facility] ([id number]) [address], [address] [place] [address] Hematocrit (Bld) [Volume fraction] 35.9 % Normal 35-47 [facility] Comment on above: Performed By: #### Chanel ERICKSON [facility], 1988-02 #### [facility] ([id number]) [address] [place] [address] 93543 #### 36007-0 #### [facility] ([id number]) [address], [address] [place] [address] Hemoglobin (Bld) [Mass/Vol] 11.7 g/dL Normal 11.7-15.5 [facility] Comment on above: Performed By: #### Chanel ERICKSON [facility], 1988-02 #### [facility] ([id number]) [address] [place] [address] 41662 #### 83207-2 #### [facility] ([id number]) [address] [place] [address] Lymphocytes (Bld) [#/Vol] 2.6 10*3/uL Normal 1.0-3.5 [facility] Comment on above: Performed By: #### Chanel ERICKSON [facility], 1988-02 #### [facility] ([id number]) [address] [place] [address] 33862 #### 28654-1 #### [facility] ([id number]) [address] [place] [address] Lymphocytes/100 WBC (Bld) 16.6 % Normal [facility] Comment on above: Performed By: #### Chanel ERICKSON, CMP, 1988-02 #### [facility] ([id number]) [address] [place] [address] 96726 #### 55503-3 #### [facility] ([id number]) [address], [address] [place] [address] MCH (RBC) [Entitic mass] 28.2 pg Normal 27-34 [facility] Comment on above: Performed By: #### Chanel ERICKSON, CMP, 1988-02 #### [facility] ([id number]) [address] [place] [address] 29026 #### 22225-5 #### [facility] ([id number]) [address] [place] [address] MCHC (RBC) [Mass/Vol] 32.7 g/dL Normal 32-36 [facility] Comment on above: Performed By: #### Chanel ERICKSON, CMP, 1988-02 #### [facility] ([id number]) [address] [place] [address] 63272 #### 25155-9 #### [facility] ([id number]) [address] [place] [address] MCV (RBC) [Entitic vol] 86 fL Normal 80-100 [facility] Comment on above: Performed By: #### Chanel ERICKSON, CMP, 1988-02 #### [facility] ([id number]) [address] [place] [address] 68636 #### 23977-8 #### [facility] ([id number]) [address] [place] [address] Monocytes (Bld) [#/Vol] 0.9 10*3/uL Normal 0-0.9 [facility] Comment on above: Performed By: #### Chanel ERICKSON CMP, 1988-02 #### [facility] ([id number]) [address] [place] [address] 04109 #### 35872-3 #### [facility] ([id number]) [address] [place] [address] Monocytes/100 WBC (Bld) 5.9 % Normal [facility] Comment on above: Performed By: #### Chanel ERICKSON CMP, 1988-02 #### [facility] ([id number]) [address] [place] [address] 94626 #### 40948-9 #### [facility] ([id number]) [address] [place] [address] Neutrophils/100 WBC (Bld) 71.7 % Normal [facility] Comment on above: Performed By: #### Chanel ERICKSON CMP, 1988-02 #### [facility] ([id number]) [address] [place] [address] 67736 #### 66411-8 #### [facility] ([id number]) [address] [place] [address] Platelet mean volume (Bld) [Entitic vol] 8.6 fL Normal 7-12 [facility] Comment on above: Performed By: #### Chanel ERICKSON CMP, 1988-02 #### [facility] ([id number]) [address] [place] [address] 19339 #### 28004-5 #### [facility] ([id number]) [address] [place] [address] Platelets (Bld) [#/Vol] 338 10*3/uL Normal 150-450 [facility] Comment on above: Performed By: #### Chanel ERICKSON CMP, 1988-02 #### [facility] ([id number]) [address] [place] [address] 95482 #### 24749-5 #### [facility] ([id number]) [facility], [address] [place] [address] RBC COUNT 4.16 X10E12/L Normal 3.80-5.20 [facility] Comment on above: Performed By: #### Chanel ERICKSON CMP, 1988-02 #### [facility] ([id number]) [address] [place] [address] 88987 #### 81230-2 #### [facility] ([id number]) [address] [place] [address], [address] [place] [address] WBC (Bld) [#/Vol] 15.5 10*3/uL High 4.0-11.0 [facility] Comment on above: Performed By: #### Chanel ERICKSON CMP, 1988-02 #### [facility] ([id number]) [address] [place] [address] 75186 #### 01801-0 #### [facility] ([id number]) [address] [place] [address], [address] [place] [address] COMPREHENSIVE METABOLIC PANE [place] 12-26-2023 Albumin [Mass/Vol] 3.2 g/dL Normal 3.2-5.3 [facility] Comment on above: Performed By: #### Chanel ERICKSON CMP, 1988-02 #### [facility] ([id number]) [address] [place] [address] 78821 #### 74053-8 #### [facility] ([id number]) [address] [place] [address], [address] [place] [address] ALP [Catalytic activity/Vol] 69 U/L Normal 39-130 [facility] Comment on above: Performed By: #### Chanel BCA CMP, 1988-02 #### [facility] ([id number]) [address] [place] [address] 13754 #### 63871-1 #### [facility] ([id number]) [address] [place] [address] ALT [Catalytic activity/Vol] 16 U/L Normal 0-31 [facility] Comment on above: Performed By: #### Chanel ERICKSON CMP, 1988-02 #### [facility] ([id number]) [address] [place] [address] 36551 #### 15945-4 #### [facility] ([id number]) [address] [place] [address] Anion gap [Moles/Vol] 10 mmol/L Normal 5-15 [facility] Comment on above: Performed By: #### Chanel ERICKSON CMP, 1988-02 #### [facility] ([id number]) [address] [place] [address] 50318 #### 58309-6 #### [facility] ([id number]) [address] [facility] [place] [address] AST [Catalytic activity/Vol] 17 U/L Normal 0-41 [facility] Comment on above: Performed By: #### Chanel ERICKSON CMP, 1988-02 #### [facility] ([id number]) [address] [place] [address] 44222 #### 33895-8 #### [facility] ([id number]) [address] [place] [address] Bilirubin [Mass/Vol] 0.4 mg/dL Normal 0.3-1.2 [facility] Comment on above: Performed By: #### Chanel ERICKSON CMP, 1988-02 #### [facility] ([id number]) [address] [place] [address] 28069 #### 98880-0 #### [facility] ([id number]) [address] [place] [address] Calcium [Mass/Vol] 8.7 mg/dL Normal 8.5-10.5 [facility] Comment on above: Performed By: #### C DRE CMP, 1988-02 #### [facility] ([id number]) [address] [place] [address] 61555 #### 24230-7 #### [facility] ([id number]) [address] [place] [address] Chloride [Moles/Vol] 98 mmol/L Normal 98-109 [facility] Comment on above: Performed By: #### C SEAN ERICKSON, 1988-02 #### [facility] ([id number]) [address] [place] [address] 05413 #### 69300-5 #### [facility] ([id number]) [address] [place] [address] CO2 [Moles/Vol] 31 mmol/L Normal 22-32 [facility] Comment on above: Performed By: #### C DRE CMP, 1988-02 #### [facility] ([id number]) [address] [place] [address] 54998 #### 65590-3 #### [facility] ([id number]) [address] [place] [address] Creatinine [Mass/Vol] 0.78 mg/dL Normal 0.40-1.00 [facility] Comment on above: Result Comment: METH OD TRACEABLE TO IDMS STANDARD Performed By: #### C DRE CMP, 1988-02 #### [facility] ([id number]) [address] [place] [address] 72142 #### 72513-6 #### [facility] ([id number]) [address] [place] [address] GFR/1.73 sq M.predicted among non-blacks MDRD (S/P/Bld) [Vol rate/Area] 81 mL/min/{1.73_m2} Normal >59 [facility] Comment on above: Result Comment: Reported eGFR is based on the CKD-EPI 2020 equation that does not use a race coefficient. Performed By: #### Chanel ERICKSON CMP, 1988-02 #### [facility] ([id number]) [address] [place] [address] 35777 #### 59286-9 #### [facility] ([id number]) [address] [place] [address] Glucose [Mass/Vol] 129 mg/dL High 65-99 [facility] Comment on above: Performed By: #### Chanel ERICKSON CMP, 1988-02 #### [facility] ([id number]) [address] [place] [address] 16737 #### 45814-3 #### [facility] ([id number]) [address] [place] [address] Potassium [Moles/Vol] 3.8 mmol/L Normal 3.5-5.0 [facility] Comment on above: Performed By: #### Chanel ERICKSON CMP, 1988-02 #### [facility] ([id number]) [address] [place] [address] 75785 #### 12722-9 #### [facility] ([id number]) [address] [place] [address] Protein [Mass/Vol] 7.3 g/dL Normal 6.0-8.0 [facility] Comment on above: Performed By: #### Chanel ERICKSON CMP, 1988-02 #### [facility] ([id number]) [address] [place] [address] 03904 #### 66945-4 #### [facility] ([id number]) [address] [facility] [place] [address] Sodium [Moles/Vol] 139 mmol/L Normal 134-146 [facility] Comment on above: Performed By: #### Chanel ERICKSON CMP, 1988-02 #### [facility] ([id number]) [address] [place] [address] 37437 #### 31696-5 #### [facility] ([id number]) [address] [facility] [place] [address] Urea nitrogen [Mass/Vol] 19 mg/dL Normal 5-27 [facility] Comment on above: Performed By: #### Chanel ERICKSON CMP, 1988-02 #### [facility] ([id number]) [address] [place] [address] 52649 #### 09279-0 #### [facility] ([id number]) [address] [facility] [place] [address] Glucose Glucometer (BldC) [M ass/Vol]on 12-26-2023 Glucose [Mass/Vol] 146 mg/dL High 65-99 [facility] Glucose [Mass/Vol] 182 mg/dL High 65-99 [facility] Glucose [Mass/Vol] 108 mg/dL High 65-99 [facility] MAGNESIUMon 12-26-2023 Magnesium [Mass/Vol] 2.3 mg/dL Normal 1.8-2.6 [facility] Comment on above: Performed By: #### Chanel ERICKSON CMP, 1988-02 #### [facility] ([id number]) [address] [place] [address] 38209 #### 95031-3 #### [facility] ([id number]) [address], [address] [place] [address] MR FOOT RT W WO CONTon 12-25 [...] on 12/26/2023 12:57 PM Normal [facility] PROTIME AND INRon 12-26-2023 INR Coag (PPP) [Relative time] 3.0 {INR} High 0.8-1.1 [facility] Comment on above: Performed By: #### C SEAN ERICKSON, 1985- #### [facility] ([id number]) [address] [facility] [place] [address] #### [id number] #### [facility] ([id number]) [address] [facility], [address] [place] [address] PT Coag (PPP) [Time] 33.3 s High 9.8-13.2 [facility] Comment on above: Result Comment: NEW REFERENCE RANGE Performed By: #### Chanel ERICKSON [facility], 1986-02 #### [facility] ([id number]) [address] [place] [address] #### [id number] #### [facility] ([id number]) [address] [facility] [facility] [place] [address] Vancomycin trough [Mass/Vol] on 12-26-2023 VANCOMYCIN TROUGH 11.6 ug/mL Normal 5.0-20.0 [facility] Comment on above: Performed By: #### Chanel ERICKSON [facility], 1986-02 #### [facility] ([id number]) [address] [place] [address] #### [id number] #### [facility] ([id number]) [address] [facility], [address] [place] [address] CBC AND AUTO DIFFon 12-25-19 ABSOLUTE BASOPHIL 0.1 X10E9/L Normal 0.0-0.2 [facility] Comment on above: Performed By: #### Chanel ERICKSON [facility], 1986-02 #### [facility] ([id number]) [address] [place] [address] #### [id number] #### [facility] ([id number]) [address] [facility] [facility] [place] [address] ABSOLUTE NEUTROPHIL 9.4 X10E9/L High 1.5-6.6 [facility] Comment on above: Performed By: #### Chanel ERICKSON [facility] SYSTEM, 1988-02 #### [facility] ([id number]) [address] [place] [address] 60346 #### 85334-9 #### [facility] ([id number]) [address] [facility], [address] [place] [address] Basophils/100 WBC (Bld) 0.4 % Normal [facility] Comment on above: Performed By: #### Chanel ERICKSON CMP, 1988-02 #### [facility] ([id number]) [address] [place] [address] 63040 #### 56769-2 #### [facility] ([id number]) [address] [place] [address] Eosinophils (Bld) [#/Vol] 0.7 10*3/uL High 0.0-0.4 [facility] Comment on above: Performed By: #### Chanel ERICKSON CMP, 1988-02 #### [facility] ([id number]) [address] [place] [address] 67071 #### 25251-0 #### [facility] ([id number]) [address], [address] [place] [address] Eosinophils/100 WBC (Bld) 5.3 % Normal [facility] Comment on above: Performed By: #### Chanel ERICKSON CMP, 1988-02 #### [facility] ([id number]) [address] [place] [address] 91753 #### 06907-8 #### [facility] ([id number]) [address] [place] [address] Erythrocyte distribution width (RBC) [Ratio] 13.7 % Normal 11.5-15.0 [facility] Comment on above: Performed By: #### Chanel ERICKSON CMP, 1988-02 #### [facility] ([id number]) [address] [place] [address] 18602 #### 75912-0 #### [facility] ([id number]) [address] [place] [address] Hematocrit (Bld) [Volume fraction] 37.8 % Normal 35-47 [facility] Comment on above: Performed By: #### Chanel ERICKSON CMP, 1988-02 #### [facility] ([id number]) [address] [place] [address] 96580 #### 64573-7 #### [facility] ([id number]) [address], [address] [place] [address] Hemoglobin (Bld) [Mass/Vol] 12.6 g/dL Normal 11.7-15.5 [facility] Comment on above: Performed By: #### Chanel ERICKSON CMP, 1988-02 #### [facility] ([id number]) [address] [place] [address] 16981 #### 72246-4 #### [facility] ([id number]) [address] [place] [address] Lymphocytes (Bld) [#/Vol] 2.4 10*3/uL Normal 1.0-3.5 [facility] Comment on above: Performed By: #### Chanel ERICKSON [facility], 1988-02 #### [facility] ([id number]) [address] [place] [address] 19787 #### 89127-2 #### [facility] ([id number]) [address] [place] [address] Lymphocytes/100 WBC (Bld) 17.5 % Normal [facility] Comment on above: Performed By: #### Chanel ERICKSON CMP, 1988-02 #### [facility] ([id number]) [address] [place] [address] 40471 #### 92332-2 #### [facility] ([id number]) [address], [address] [place] [address] MCH (RBC) [Entitic mass] 28.8 pg Normal 27-34 [facility] Comment on above: Performed By: #### Chanel ERICKSON, CMP, 1988-02 #### [facility] ([id number]) [address] [place] [address] 82048 #### 76699-6 #### [facility] ([id number]) [address], [address] [place] [address] MCHC (RBC) [Mass/Vol] 33.4 g/dL Normal 32-36 [facility] Comment on above: Performed By: #### Chanel ERICKSON, CMP, 1988-02 #### [facility] ([id number]) [address] [place] [address] 67775 #### 06314-8 #### [facility] ([id number]) [address], [address] [place] [address] MCV (RBC) [Entitic vol] 86 fL Normal 80-100 [facility] Comment on above: Performed By: #### Chanel ERICKSON CMP, 1988-02 #### [facility] ([id number]) [address] [place] [address] 68471 #### 66942-7 #### [facility] ([id number]) [address] [place] [address] Monocytes (Bld) [#/Vol] 1.1 10*3/uL High 0-0.9 [facility] Comment on above: Performed By: #### Chanel ERICKSON, CMP, 1988-02 #### [facility] ([id number]) [address] [place] [address] 59382 #### 20055-1 #### [facility] ([id number]) [address] [place] [address] Monocytes/100 WBC (Bld) 8.0 % Normal [facility] Comment on above: Performed By: #### C BCA, CMP, 1988-02 #### [facility] ([id number]) [address] [place] [address] 20024 #### 47218-6 #### [facility] ([id number]) [address] [place] [address] Neutrophils/100 WBC (Bld) 68.8 % Normal [facility] Comment on above: Performed By: #### Chanel ERICKSON [facility], 1988-02 #### [facility] ([id number]) [address] [place] [address] 24251 #### 68858-5 #### [facility] ([id number]) [address] [place] [address] Platelet mean volume (Bld) [Entitic vol] 8.4 fL Normal 7-12 [facility] Comment on above: Performed By: #### Chanel ERICKSON [facility], 1988-02 #### [facility] ([id number]) [address] [place] [address] 34057 #### 09397-6 #### [facility] ([id number]) [address] [place] [address] Platelets (Bld) [#/Vol] 321 10*3/uL Normal 150-450 [facility] Comment on above: Performed By: #### Chanel ERICKSON CMP, 1988-02 #### [facility] ([id number]) [address] [place] [address] 37435 #### 28752-5 #### [facility] ([id number]) [address], [address] [place] [address] RBC COUNT 4.38 X10E12/L Normal 3.80-5.20 [facility] Comment on above: Performed By: #### Chanel ERICKSON CMP, 1988-02 #### [facility] ([id number]) [address] [place] [address] 36203 #### 70117-7 #### [facility] ([id number]) [address] [facility] [place] [address] WBC (Bld) [#/Vol] 13.7 10*3/uL High 4.0-11.0 [facility] Comment on above: Performed By: #### Chanel BCA, CMP, 1988-02 #### [facility] ([id number]) [address] [place] [address] 47155 #### 21350-9 #### [facility] ([id number]) [address] [facility], [address] [place] [address] COMPREHENSIVE METABOLIC PANE Tyrone 12-25-2023 Albumin [Mass/Vol] 3.3 g/dL Normal 3.2-5.3 [facility] Comment on above: Performed By: #### Chanel BCA, CMP, 1988-02 #### [facility] ([id number]) [address] [place] [address] 69705 #### 06932-1 #### [facility] ([id number]) [address] [facility], [address] [place] [address] ALP [Catalytic activity/Vol] 66 U/L Normal 39-130 [facility] Comment on above: Performed By: #### Chanel BCA, CMP, 1988-02 #### [facility] ([id number]) [address] [place] [address] 47005 #### 62060-8 #### [facility] ([id number]) [address] [facility] [place] [address] ALT [Catalytic activity/Vol] 16 U/L Normal 0-31 [facility] Comment on above: Performed By: #### C BCA, CMP, 1988-02 #### [facility] ([id number]) [address] [place] [address] 71364 #### 26124-5 #### [facility] ([id number]) [address], [address] [place] [address] Anion gap [Moles/Vol] 10 mmol/L Normal 5-15 [facility] Comment on above: Performed By: #### Chanel ERICKSON CMP, 1988-02 #### [facility] ([id number]) [address] [place] [address] 52496 #### 06403-6 #### [facility] ([id number]) [address] [facility] [place] [address] AST [Catalytic activity/Vol] 17 U/L Normal 0-41 [facility] Comment on above: Performed By: #### Chanel ERICKSON CMP, 1988-02 #### [facility] ([id number]) [address] [place] [address] 88383 #### 27944-2 #### [facility] ([id number]) [address] [facility], [address] [place] [address] Bilirubin [Mass/Vol] 0.5 mg/dL Normal 0.3-1.2 [facility] Comment on above: Performed By: #### Chanel ERICKSON CMP, 1988-02 #### [facility] ([id number]) [address] [place] [address] 04017 #### 96040-3 #### [facility] ([id number]) [address] [place] [address] Calcium [Mass/Vol] 8.9 mg/dL Normal 8.5-10.5 [facility] Comment on above: Performed By: #### Chanel ERICKSON CMP, 1988-02 #### [facility] ([id number]) [address] [place] [address] 79290 #### 81688-7 #### [facility] ([id number]) [address], [address] [place] [address] Chloride [Moles/Vol] 98 mmol/L Normal 98-109 [facility] Comment on above: Performed By: #### C ESAN ERICKSON, 1988-02 #### [facility] ([id number]) [address] [place] [address] 88750 #### 22491-2 #### [facility] ([id number]) [address] [facility], [address] [place] [address] CO2 [Moles/Vol] 31 mmol/L Normal 22-32 [facility] Comment on above: Performed By: #### C SEAN ERICKSON, 1988-02 #### [facility] ([id number]) [address] [place] [address] 76480 #### 51559-2 #### [facility] ([id number]) [address] [facility], [address] [place] [address] Creatinine [Mass/Vol] 0.78 mg/dL Normal 0.40-1.00 [facility] Comment on above: Result Comment: METH OD TRACEABLE TO IDMS STANDARD Performed By: #### C SEAN REICKSON, 1988-02 #### [facility] ([id number]) [address] [place] [address] 94209 #### 90982-9 #### [facility] ([id number]) [address] [place] [address] GFR/1.73 sq M.predicted among non-blacks MDRD (S/P/Bld) [Vol rate/Area] 81 mL/min/{1.73_m2} Normal >59 [facility] Comment on above: Result Comment: Reported eGFR is based on the CKD-EPI 2020 equation that does not use a race coefficient. Performed By: #### C SEAN ERICKSON, 1988-02 #### [facility] ([id number]) [address] [place] [address] 11813 #### 71877-2 #### [facility] ([id number]) [address] [place] [address] Glucose [Mass/Vol] 125 mg/dL High 65-99 [facility] Comment on above: Performed By: #### Chanel ERICKSON CMP, 1988-02 #### [facility] ([id number]) [address] [place] [address] 67184 #### 31673-0 #### [facility] ([id number]) [address] [facility], [address] [place] [address] Potassium [Moles/Vol] 3.5 mmol/L Normal 3.5-5.0 [facility] Comment on above: Performed By: #### Chanel ERICKSON CMP, 1988-02 #### [facility] ([id number]) [address] [place] [address] 10104 #### 15325-5 #### [facility] ([id number]) [address], [address] [place] [address] Protein [Mass/Vol] 7.7 g/dL Normal 6.0-8.0 [facility] Comment on above: Performed By: #### Chanel ERICKSON CMP, 1988-02 #### [facility] ([id number]) [address] [place] [address] 61346 #### 45296-8 #### [facility] ([id number]) [address] [place] [address] Sodium [Moles/Vol] 139 mmol/L Normal 134-146 [facility] Comment on above: Performed By: #### Chanel ERICKSON CMP, 1988-02 #### [facility] ([id number]) [address] [place] [address] #### 08951-2 #### [facility] ([id number]) [address] [facility], [address] [place] [address] Urea nitrogen [Mass/Vol] 19 mg/dL Normal 5-27 [facility] Comment on above: Performed By: #### Chanel ERICKSON [facility], 1988-02 #### [facility] ([id number]) [address] [place] [address] 37509 #### 47629-8 #### [facility] ([id number]) [address] [facility], [address] [place] [address] CRP [Mass/Vol]on 12-25-2023 C REACTIVE PROTEIN 8.6 mg/dL High 0.000-0.744 [facility] Comment on above: Performed By: #### Chanel ERICKSON [facility], 1988-02 #### [facility] ([id number]) [address] [place] [address] 48921 #### 54160-6 #### [facility] ([id number]) [address] [facility], [address] [address] ESR Photometric method (Bld) [Velocity]on 12-25-2023 ESR, ERYTHROCYTE SEDIMENTATION RATE 85 mm/h High 0-30 [facility] Comment on above: Performed By: #### Chanel ERICKSON [facility], 1988-02 #### [facility] ([id number]) [address] [place] [address] 33958 #### 81914-7 #### [facility] ([id number]) [address] [facility], [address] [place] [address] Glucose Glucometer (BldC) [M ass/Vol]on 12-25-2023 Glucose [Mass/Vol] 171 mg/dL High 65-99 [facility] Glucose [Mass/Vol] 125 mg/dL High 65-99 [facility] Glucose [Mass/Vol] 154 mg/dL High 65-99 [facility] MAGNESIUMon 12-25-2023 Magnesium [Mass/Vol] 2.4 mg/dL Normal 1.8-2.6 [facility] Comment on above: Performed By: #### Chanel ERICKSON CMP, 1988-02 #### [facility] ([id number]) [address] [place] [address] 66313 #### 19489-4 #### [facility] ([id number]) [address] [facility], [address] [place] [address] POTASSIUMon 12-25-2023 Potassium [Moles/Vol] 4.2 mmol/L Normal 3.5-5.0 [facility] Comment on above: Performed By: #### Chanel ERICKSON [facility], 1988-02 #### [facility] ([id number]) [address] [place] [address] 88649 #### 60978-5 #### [facility] ([id number]) [address] [facility], [address] [place] [address] PROTIME AND INRon 12-25-2023 INR Coag (PPP) [Relative time] 2.6 {INR} High 0.8-1.1 [facility] Comment on above: Performed By: #### Chanel ERICKSON [facility], 1988-02 #### [facility] ([id number]) [address] [place] [address] 92429 #### 74246-1 #### [facility] ([id number]) [address] [facility], [address] [place] [address] PT Coag (PPP) [Time] 29.7 s High 9.8-13.2 [facility] Comment on above: Result Comment: NEW REFERENCE RANGE Performed By: #### Chanel ERICKSON CMP, 1988-02 #### [facility] ([id number]) [address] [place] [address] 09694 #### 47294-1 #### [facility] ([id number]) [address] [facility], [address] [place] [address] URIC ACIDon 12-25-2023 Urate [Mass/Vol] 8.9 mg/dL High 2.6-7.2 [facility] Comment on above: Performed By: #### C BCA, CMP, 1987- #### [facility] ([id number]) [address] [place] [address] 73607 #### 38203-8 #### [facility] ([id number]) [address] [facility], [address] [place] [address] XR CHEST 1 VWon 12-25-2023 XR CHEST [...] on 12/25/2023 11:21 AM Normal [facility] XR FOOT RT 2 VWSon [...] on 12/25/2023 2:59 PM Normal [facility] CBC AND AUTO DIFFon 12-24-19 ABSOLUTE BASOPHIL 0.1 X10E9/L Normal 0.0-0.2 [facility] Comment on above: Performed By: #### Chanel ERICKSON CMP, 1988-02 #### [facility] ([id number]) [address] [place] [address] 30276 #### 69396-3 #### [facility] ([id number]) [address] [facility], [address] [place] [address] ABSOLUTE NEUTROPHIL 10.2 X10E9/L High 1.5-6.6 [facility] Comment on above: Performed By: #### Chanel ERICKSON CMP, 1988-02 #### [facility] ([id number]) [address] [place] [address] 61053 #### 81120-6 #### [facility] ([id number]) [address] [facility], [address] [place] [address] Basophils/100 WBC (Bld) 0.5 % Normal [facility] Comment on above: Performed By: #### Chanel ERICKSON CMP, 1988-02 #### [facility] ([id number]) [address] [place] [address] 88528 #### 19196-4 #### [facility] ([id number]) [address] [facility], [address] [place] [address] Eosinophils (Bld) [#/Vol] 0.9 10*3/uL High 0.0-0.4 [facility] Comment on above: Performed By: #### Chanel ERICKSON CMP, 1988-02 #### [facility] ([id number]) [address] [place] [address] 55346 #### 05169-3 #### [facility] ([id number]) [address] [place] [address] Eosinophils/100 WBC (Bld) 6.2 % Normal [facility] Comment on above: Performed By: #### Chanel ERICKSON CMP, 1988-02 #### [facility] ([id number]) [address] [place] [address] 19395 #### 10062-4 #### [facility] ([id number]) [address] [place] [address] Erythrocyte distribution width (RBC) [Ratio] 14.1 % Normal 11.5-15.0 [facility] Comment on above: Performed By: #### Chanel ERICKSON CMP, 1988-02 #### [facility] ([id number]) [address] [place] [address] 19373 #### 81003-6 #### [facility] ([id number]) [address] [place] [address] Hematocrit (Bld) [Volume fraction] 37.3 % Normal 35-47 [facility] Comment on above: Performed By: #### Chanel ERICKSON CMP, 1988-02 #### [facility] ([id number]) [address] [place] [address] 14953 #### 94900-0 #### [facility] ([id number]) [address] [place] [address] Hemoglobin (Bld) [Mass/Vol] 12.4 g/dL Normal 11.7-15.5 [facility] Comment on above: Performed By: #### Chanel ERICKSON CMP, 1988-02 #### [facility] ([id number]) [address] [place] [address] 59162 #### 01110-4 #### [facility] ([id number]) [address] [place] [address] Lymphocytes (Bld) [#/Vol] 2.2 10*3/uL Normal 1.0-3.5 [facility] Comment on above: Performed By: #### Chanel ERICKSON CMP, 1988-02 #### [facility] ([id number]) [address] [place] [address] 87799 #### 17089-4 #### [facility] ([id number]) [address] [place] [address] Lymphocytes/100 WBC (Bld) 15.4 % Normal [facility] Comment on above: Performed By: #### Chanel ERICKSON CMP, 1988-02 #### [facility] ([id number]) [address] [place] [address] 90447 #### 65981-7 #### [facility] ([id number]) [address] [place] [address] MCH (RBC) [Entitic mass] 29.0 pg Normal 27-34 [facility] Comment on above: Performed By: #### Chanel ERICKSON CMP, 1988-02 #### [facility] ([id number]) [address] [place] [address] #### [id number] #### [facility] ([id number]) [address], [address] [place] [address] MCHC (RBC) [Mass/Vol] 33.3 g/dL Normal 32-36 [facility] Comment on above: Performed By: #### Chanel ERICKSON CMP, 1988-02 #### [facility] ([id number]) [address] [place] [address] #### [id number] #### [facility] ([id number]) [address], [address] [place] [address] MCV (RBC) [Entitic vol] 87 fL Normal 80-100 [facility] Comment on above: Performed By: #### Chanel ERICKSON CMP, 1988-02 #### [facility] ([id number]) [address] [place] [address] #### [id number] #### [facility] ([id number]) [address] [place] [address] Monocytes (Bld) [#/Vol] 0.7 10*3/uL Normal 0-0.9 [facility] Comment on above: Performed By: #### Chanel ERICKSON, CMP, 1988-02 #### [facility] ([id number]) [address] [place] [address] #### [id number] #### [facility] ([id number]) [address] [place] [address] Monocytes/100 WBC (Bld) 5.3 % Normal [facility] Comment on above: Performed By: #### Chanel ERICKSON CMP, 1988-02 #### [facility] ([id number]) [address] [place] [address] #### [id number] #### [facility] ([id number]) [address] [place] [address] Neutrophils/100 WBC (Bld) 72.6 % Normal [facility] Comment on above: Performed By: #### Chanel ERICKSON, CMP, 1988-02 #### [facility] ([id number]) [address] [place] [address] #### [id number] #### [facility] ([id number]) [address] [place] [address] Platelet mean volume (Bld) [Entitic vol] 8.6 fL Normal 7-12 [facility] [facility] Comment on above: Performed By: #### Chanel ERICKSON CMP, 1988-02 #### [facility] ([id number]) [address] [place] [address] 35588 #### [id number] #### [facility] ([id number]) [address] [facility], [address] [place] [address] Platelets (Bld) [#/Vol] 339 10*3/uL Normal 150-450 [facility] Comment on above: Performed By: #### C DRE, CMP, 1988-02 #### [facility] ([id number]) [address] [place] [address] 42906 #### [id number] #### [facility] ([id number]) [address] [facility], [address] [place] [address] RBC COUNT 4.29 X10E12/L Normal 3.80-5.20 [facility] Comment on above: Performed By: #### C SEAN ERICKSON, 1988-02 #### [facility] ([id number]) [address] [place] [address] 04772 #### [id number] #### [facility] ([id number]) [address] [place] [address], [address] [place] [address] WBC (Bld) [#/Vol] 14.1 10*3/uL High 4.0-11.0 [facility] Comment on above: Performed By: #### C DRE, CMP, 1988-02 #### [facility] ([id number]) [address] [place] [address] 20186 #### [id number] #### [facility] ([id number]) [address] [facility], [address] [place] [address] COMPREHENSIVE METABOLIC PANE Tyrone 12-24-2023 Albumin [Mass/Vol] 3.4 g/dL Normal 3.2-5.3 [facility] Comment on above: Performed By: #### C BCA, CMP, 1988-02 #### [facility] ([id number]) [address] [place] [address] 46587 #### 86289-7 #### [facility] ([id number]) [address] [place] [address] ALP [Catalytic activity/Vol] 67 U/L Normal 39-130 [facility] Comment on above: Performed By: #### Chanel BCA, CMP, 1988-02 #### [facility] ([id number]) [address] [place] [address] 49838 #### [id number] #### [facility] ([id number]) [address], [address] [place] [address] ALT [Catalytic activity/Vol] 13 U/L Normal 0-31 [facility] Comment on above: Performed By: #### Chanel BCA, [facility], 1988-02 #### [facility] ([id number]) [address] [place] [address] 82933 #### 04708-9 #### [facility] ([id number]) [address], [address] [place] [address] Anion gap [Moles/Vol] 11 mmol/L Normal 5-15 [facility] Comment on above: Performed By: #### Chanel BCA, CMP, 1988-02 #### [facility] ([id number]) [address] [place] [address] 89623 #### [id number] #### [facility] ([id number]) [address], [address] [place] [address] AST [Catalytic activity/Vol] 16 U/L Normal 0-41 [facility] Comment on above: Performed By: #### Chanel BCA, CMP, 1988-02 #### [facility] ([id number]) [address] [place] [address] #### 90438-4 #### [facility] ([id number]) [address], [address] [place] [address] Bilirubin [Mass/Vol] 0.4 mg/dL Normal 0.3-1.2 [facility] Comment on above: Performed By: #### Chanel ERICKSON CMP, 1988-02 #### [facility] ([id number]) [address] [place] [address] 03943 #### [id number] #### [facility] ([id number]) [address], [address] [place] [address] Calcium [Mass/Vol] 8.9 mg/dL Normal 8.5-10.5 [facility] Comment on above: Performed By: #### Chanel ERICKSON CMP, 1988-02 #### [facility] ([id number]) [address] [place] [address] 50276 #### 78751-5 #### [facility] ([id number]) [address], [address] [place] [address] Chloride [Moles/Vol] 99 mmol/L Normal 98-109 [facility] Comment on above: Performed By: #### Chanel ERICKSON CMP, 1988-02 #### [facility] ([id number]) [address] [place] [address] 20760 #### 98511-7 #### [facility] ([id number]) [address], [address] [place] [address] CO2 [Moles/Vol] 30 mmol/L Normal 22-32 [facility] Comment on above: Performed By: #### Chanel BCA, CMP, 1988-02 #### [facility] ([id number]) [address] [place] [address] 47153 #### 83510-1 #### [facility] ([id number]) [address], [address] [place] [address] Creatinine [Mass/Vol] 0.83 mg/dL Normal 0.40-1.00 [facility] Comment on above: Result Comment: METH OD TRACEABLE TO IDMS STANDARD Performed By: #### C DRE [facility], 1988-02 #### [facility] ([id number]) [address] [place] [address] #### [id number] #### [facility] ([id number]) [address], [address] [place] [address] GFR/1.73 sq M.predicted among non-blacks MDRD (S/P/Bld) [Vol rate/Area] 75 mL/min/{1.73_m2} Normal >59 [facility] Comment on above: Result Comment: Reported eGFR is based on the CKD-EPI 2020 equation that does not use a race coefficient. Performed By: #### C DRE [facility], 1988-02 #### [facility] ([id number]) [address] [place] [address] 69171 #### 26951-7 #### [facility] ([id number]) [address], [address] [place] [address] Glucose [Mass/Vol] 137 mg/dL High 65-99 [facility] Comment on above: Performed By: #### C DRE [facility], 1988-02 #### [facility] ([id number]) [address] [place] [address] #### 06186-1 #### [facility] ([id number]) [address], [address] [place] [address] Potassium [Moles/Vol] 3.8 mmol/L Normal 3.5-5.0 [facility] Comment on above: Performed By: #### Chanel ERICKSON [facility], 1988-02 #### [facility] ([id number]) [address] [place] [address] 01783 #### [id number] #### [facility] ([id number]) [address] [facility], [address] [place] [address] Protein [Mass/Vol] 7.9 g/dL Normal 6.0-8.0 [facility] Comment on above: Performed By: #### Chanel ERICKSON CMP, 1988-02 #### [facility] ([id number]) [address] [place] [address] 47863 #### 35948-6 #### [facility] ([id number]) [address] [facility], [address] [place] [address] Sodium [Moles/Vol] 140 mmol/L Normal 134-146 [facility] Comment on above: Performed By: #### Chanel ERICKSON CMP, 1988-02 #### [facility] ([id number]) [address] [place] [address] 22850 #### 99657-3 #### [facility] ([id number]) [address] [facility], [address] [place] [address] Urea nitrogen [Mass/Vol] 18 mg/dL Normal 5-27 [facility] Comment on above: Performed By: #### Chanel ERICKSON CMP, 1988-02 #### [facility] ([id number]) [address] [place] [address] 13843 #### 53162-5 #### [facility] ([id number]) [address] [facility], [address] [place] [address] Glucose Glucometer (BldC) [M ass/Vol]on 12-24-2023 Glucose [Mass/Vol] 136 mg/dL High 65-99 [facility] Glucose [Mass/Vol] 123 mg/dL High 65-99 [facility] Glucose [Mass/Vol] 152 mg/dL High 65-99 [facility] MAGNESIUMon 12-24-2023 Magnesium [Mass/Vol] 2.2 mg/dL Normal 1.8-2.6 [facility] Comment on above: Performed By: #### Chanel ERICKSON [facility], 1988-02 #### [facility] ([id number]) [address] [place] [address] 25377 #### 17642-6 #### [facility] ([id number]) [address] [place] [address], [address] [place] [address] POTASSIUMon 12-24-2023 Potassium [Moles/Vol] 4.0 mmol/L Normal 3.5-5.0 [facility] Comment on above: Performed By: #### Chanel ERICKSON [facility], 1988-02 #### [facility] ([id number]) [address] [place] [address] 33415 #### 87562-2 #### [facility] ([id number]) [facility], [address] [place] [address] PROTIME AND INRon 12-24-2023 INR Coag (PPP) [Relative time] 2.8 {INR} High 0.8-1.1 [facility] Comment on above: Performed By: #### Chanel ERICKSON [facility], 1988-02 #### [facility] ([id number]) [address] [place] [address] 34149 #### 82010-0 #### [facility] ([id number]) [facility]0 [facility], [address] [place] [address] PT Coag (PPP) [Time] 30.9 s High 9.8-13.2 [facility] Comment on above: Result Comment: NEW REFERENCE RANGE Performed By: #### Chanel ERICKSON CMP, 1988-02 #### [facility] ([id number]) [address] [place] [address] 78385 #### 37925-8 #### [facility] ([id number]) [address] [facility], [address] [place] [address] Vancomycin trough [Mass/Vol] on 12-24-2023 VANCOMYCIN TROUGH 11.4 ug/mL Normal 5.0-20.0 [facility] Comment on above: Performed By: #### C DRE, CMP, 1988-02 #### [facility] ([id number]) [address] [place] [address] 09872 #### 57839-2 #### [facility] ([id number]) [address] [facility], [address] [place] [address] CBC AND AUTO DIFFon 12-23-19 24 ABSOLUTE BASOPHIL 0.1 X10E9/L Normal 0.0-0.2 [facility] Comment on above: Performed By: #### C BCA, PINR, CMP, ####[facility] ([id number])[address] [place] [address] ABSOLUTE NEUTROPHIL 10.1 X10E9/L High 1.5-6.6 [facility] Comment on above: Performed By: #### C BCA, PINR, CMP, ####[facility] ([id number])[address] [place] [address] 49551 Basophils/100 WBC (Bld) 1.0 % Normal [facility] Comment on above: Performed By: #### C BCA, PINR, CMP, ####[facility] ([id number])[address] [place] [address] 52676 Eosinophils (Bld) [#/Vol] 0.8 10*3/uL High 0.0-0.4 [facility] Comment on above: Performed By: #### C BCA, PINR, CMP, ####[facility] ([id number])[address] [place] [address] Eosinophils/100 WBC (Bld) 5.8 % Normal [facility] Comment on above: Performed By: #### C BCA, PINR, CMP, ####[facility] ([id number])[address] [place] [address] 63165 Erythrocyte distribution width (RBC) [Ratio] 13.8 % Normal 11.5-15.0 [facility] Comment on above: Performed By: #### C BCA, PINR, CMP, ####[facility] ([id number])[address] [place] [address] 98769 Hematocrit (Bld) [Volume fraction] 36.1 % Normal 35-47 [facility] Comment on above: Performed By: #### C BCA, PINR, CMP, ####[facility] ([id number])[address] [place] [address] 13041 Hemoglobin (Bld) [Mass/Vol] 12.1 g/dL Normal 11.7-15.5 [facility] Comment on above: Performed By: #### C BCA, PINR, CMP, ####[facility] ([id number])[address] [place] [address] 95198 Lymphocytes (Bld) [#/Vol] 2.4 10*3/uL Normal 1.0-3.5 [facility] Comment on above: Performed By: #### C BCA, PINR, CMP, ####[facility] ([id number])[address] [place] [address] 10505 Lymphocytes/100 WBC (Bld) 16.6 % Normal [facility] Comment on above: Performed By: #### C BCA, PINR, CMP, ####[facility] ([id number])[address] [place] [address] 08532 MCH (RBC) [Entitic mass] 29.0 pg Normal 27-34 [facility] Comment on above: Performed By: #### C DRE PINR, CMP, ####[facility] ([id number])[address] [place] [address] 96448 MCHC (RBC) [Mass/Vol] 33.6 g/dL Normal 32-36 [facility] Comment on above: Performed By: #### C DRE, PINR, CMP, ####[facility] ([id number])[address] [place] [address] 74039 MCV (RBC) [Entitic vol] 86 fL Normal 80-100 [facility] Comment on above: Performed By: #### Chanel ERICKSON, PINR, CMP, ####[facility] ([id number])[address] [place] [address] 97490 Monocytes (Bld) [#/Vol] 1.1 10*3/uL High 0-0.9 [facility] Comment on above: Performed By: #### Chanel ERICKSON, PINR, CMP, ####[facility] ([id number])[address] [place] [address] 82206 Monocytes/100 WBC (Bld) 7.3 % Normal [facility] Comment on above: Performed By: #### Chanel ERICKSON, PINR, CMP, ####[facility] ([id number])[address] [place] [address] 43705 Neutrophils/100 WBC (Bld) 69.3 % Normal [facility] Comment on above: Performed By: #### Chanel ERICKSON, PINR, CMP, ####[facility] ([id number])[address] [place] [address] 92184 Platelet mean volume (Bld) [Entitic vol] 8.5 fL Normal 7-12 [facility] Comment on above: Performed By: #### C BCA, PINR, CMP, 22467-3 ####[facility] ([id number])[address] [place] [address] 16456 Platelets (Bld) [#/Vol] 286 10*3/uL Normal 150-450 [facility] Comment on above: Performed By: #### C BCA, PINR, CMP, ####[facility] ([id number])[address] [place] [address] 92862 RBC COUNT 4.19 X10E12/L Normal 3.80-5.20 [facility] Comment on above: Performed By: #### C BCA, PINR, CMP, ####[facility] ([id number])[address] [place] [address] 22895 WBC (Bld) [#/Vol] 14.6 10*3/uL High 4.0-11.0 [facility] Comment on above: Performed By: #### C BCA, PINR, CMP, ####[facility] ([id number])[address] [place] [address] 37553 COMPREHENSIVE METABOLIC PANE Tyrone 12-23-2023 Albumin [Mass/Vol] 3.1 g/dL Low 3.2-5.3 [facility] Comment on above: Performed By: #### Chanel BCA, CMP, 1988-02 #### [facility] ([id number]) [address] [place] [address] 91763 #### 54054-3 #### [facility] ([id number]) [address] [place] [address], [address] [place] [address] ALP [Catalytic activity/Vol] 60 U/L Normal 39-130 [facility] Comment on above: Performed By: #### Chanel BCA, CMP, 1988-02 #### [facility] ([id number]) [address] [place] [address] 79765 #### 41966-6 #### [facility] ([id number]) [address] [facility], [address] [place] [address] ALT [Catalytic activity/Vol] 12 U/L Normal 0-31 [facility] Comment on above: Performed By: #### Chanel ERICKSON CMP, 1988-02 #### [facility] ([id number]) [address] [place] [address] 18940 #### 48545-8 #### [facility] ([id number]) [address] [facility], [address] [place] [address] Anion gap [Moles/Vol] 9 mmol/L Normal 5-15 [facility] Comment on above: Performed By: #### Chanel ERICKSON CMP, 1988-02 #### [facility] ([id number]) [address] [place] [address] 46730 #### 78877-8 #### [facility] ([id number]) [address] [facility], [address] [place] [address] AST [Catalytic activity/Vol] 14 U/L Normal 0-41 [facility] Comment on above: Performed By: #### Chanel ERICKSON CMP, 1988-02 #### [facility] ([id number]) [address] [place] [address] 89985 #### 73756-0 #### [facility] ([id number]) [address] [facility], [address] [place] [address] Bilirubin [Mass/Vol] 0.6 mg/dL Normal 0.3-1.2 [facility] Comment on above: Performed By: #### Chanel ERICKSON CMP, 1988-02 #### [facility] ([id number]) [address] [place] [address] 81252 #### 65996-2 #### [facility] ([id number]) [address], [address] [place] [address] Calcium [Mass/Vol] 8.5 mg/dL Normal 8.5-10.5 [facility] Comment on above: Performed By: #### C DRE, CMP, 1988-02 #### [facility] ([id number]) [address] [place] [address] 20556 #### 30444-6 #### [facility] ([id number]) [address] [place] [address] Chloride [Moles/Vol] 99 mmol/L Normal 98-109 [facility] Comment on above: Performed By: #### C DRE CMP, 1988-02 #### [facility] ([id number]) [address] [place] [address] 46382 #### 86071-9 #### [facility] ([id number]) [address], [address] [place] [address] CO2 [Moles/Vol] 28 mmol/L Normal 22-32 [facility] Comment on above: Performed By: #### C DRE, CMP, 1988-02 #### [facility] ([id number]) [address] [place] [address] 58635 #### 81298-8 #### [facility] ([id number]) [address], [address] [place] [address] Creatinine [Mass/Vol] 0.75 mg/dL Normal 0.40-1.00 [facility] Comment on above: Result Comment: METH OD TRACEABLE TO IDMS STANDARD Performed By: #### C BCA, CMP, 1988-02 #### [facility] ([id number]) [address] [place] [address] 56042 #### 22453-6 #### [facility] ([id number]) [address], [address] [place] [address] GFR/1.73 sq M.predicted among non-blacks MDRD (S/P/Bld) [Vol rate/Area] 85 mL/min/{1.73_m2} Normal >59 [facility] Comment on above: Result Comment: Reported eGFR is based on the CKD-EPI 2020 equation that does not use a race coefficient. Performed By: #### Chanel ERICKSON CMP, 1988-02 #### [facility] ([id number]) [address] [place] [address] 54321 #### 52143-0 #### [facility] ([id number]) [address], [address] [place] [address] Glucose [Mass/Vol] 122 mg/dL High 65-99 [facility] Comment on above: Performed By: #### Chanel ERICKSON CMP, 1988-02 #### [facility] ([id number]) [address] [place] [address] 57100 #### 20598-7 #### [facility] ([id number]) [address] [place] [address] Potassium [Moles/Vol] 3.5 mmol/L Normal 3.5-5.0 [facility] Comment on above: Performed By: #### Chanel ERICKSON CMP, 1988-02 #### [facility] ([id number]) [address] [place] [address] 83926 #### 97339-0 #### [facility] ([id number]) [address] [place] [address] Protein [Mass/Vol] 7.3 g/dL Normal 6.0-8.0 [facility] Comment on above: Performed By: #### Chanel ERICKSON CMP, 1988-02 #### [facility] ([id number]) [address] [place] [address] 10635 #### 29976-0 #### [facility] ([id number]) [address], [address] [place] [address] Sodium [Moles/Vol] 136 mmol/L Normal 134-146 [facility] Comment on above: Performed By: #### Chanel ERICKSON CMP, 1988-02 #### [facility] ([id number]) [address] [place] [address] 92209 #### [id number] #### [facility] ([id number]) [address], [address] [place] [address] Urea nitrogen [Mass/Vol] 15 mg/dL Normal 5-27 [facility] Comment on above: Performed By: #### Chanel ERICKSON CMP, 1986-02 #### [facility] ([id number]) [address] [place] [id number] #### [id number] #### [facility] ([id number]) [address] [place] [address] Glucose Glucometer (BldC) [M ass/Vol]on 12-23-2023 Glucose [Mass/Vol] 158 mg/dL High 65-99 [facility] Glucose [Mass/Vol] 141 mg/dL High 65-99 [facility] HGB A1C (GLYCO-HGB)on 2023 Glucose [Mass/Vol] 140 mg/dL Normal [facility] Comment on above: Performed By: #### Chanel ERICKSON CMP, 1986-02 #### [facility] ([id number]) [address] [place] [address]23 #### [id number] #### [facility] ([id number]) [address] [place] [address] HbA1c (Bld) [Mass fraction] 6.5 % High 4.4-5.6 [facility] Comment on above: Result Comment: NOTE ADA Guidelines Result HgbA1c Normal : less than 5.7 % Prediabetes : 5.7 % to 6.4 % Diabetes : > 6.4 % Use with caution in patients with abnormal hemoglobin variants as the half-life of red blood cells and in vivo glycation rates are affected. Performed By: #### C DRE [facility], 1986-02 #### [facility] ([id number]) [address] [place] [address] #### [id number] #### [facility] ([id number]) [address] [place] [address] MAGNESIUMon 12-23-2023 Magnesium [Mass/Vol] 2.0 mg/dL Normal 1.8-2.6 [facility] Comment on above: Performed By: #### Chanel ERICKSON [facility], 1986-02 #### [facility] ([id number]) [address] [place] [id number] #### [id number] #### [facility] ([id number]) [address] [facility] [place] [address] POTASSIUMon 12-23-2023 Potassium [Moles/Vol] 4.4 mmol/L Normal 3.5-5.0 [facility] Comment on above: Performed By: #### Chanel ERICKSON [facility], 1988-02 #### [facility] ([id number]) [address] [place] [address] 76814 #### 29708-1 #### [facility] ([id number]) [address] [facility], [address] [place] [address] PROTIME AND INRon 12-23-2023 INR Coag (PPP) [Relative time] 2.7 {INR} High 0.8-1.1 [facility] Comment on above: Performed By: #### C BCA, PINR, CMP, ####[facility] ([id number])[address] [place] [address] 46419 PT Coag (PPP) [Time] 29.9 s High 9.8-13.2 [facility] Comment on above: Result Comment: NEW REFERENCE RANGE Performed By: #### C BCA, PINR, CMP, ####[facility] ([id number])[address] [place] [address] 34281 CBC AND AUTO DIFFon 12-22-19 24 ABSOLUTE BASOPHIL 0.2 X10E9/L Normal 0.0-0.2 [facility] Comment on above: Performed By: #### P INR, CMP, , CBCA ####[facility] ([id number])[address] [place] [address] 43231 ABSOLUTE NEUTROPHIL 10.5 X10E9/L High 1.5-6.6 [facility] Comment on above: Performed By: #### P INR, CMP, , CBCA ####[facility] ([id number])[address] [place] [address] 20495 Basophils/100 WBC (Bld) 1.0 % Normal [facility] Comment on above: Performed By: #### P INR, CMP, , CBCA ####[facility] ([id number])[address] [place] [address] 16188 Eosinophils (Bld) [#/Vol] 1.1 10*3/uL High 0.0-0.4 [facility] Comment on above: Performed By: #### P INR, CMP, , CBCA ####[facility] ([id number])[address] [place] [address] 17574 Eosinophils/100 WBC (Bld) 6.9 % Normal [facility] Comment on above: Performed By: #### P INR, CMP, , CBCA ####[facility] ([id number])[address] [place] [address] 52980 Erythrocyte distribution width (RBC) [Ratio] 13.7 % Normal 11.5-15.0 [facility] Comment on above: Performed By: #### P INR, CMP, , CBCA ####[facility] ([id number])[address] [place] [address] 73780 Hematocrit (Bld) [Volume fraction] 34.0 % Low 35-47 [facility] Comment on above: Performed By: #### P INR, CMP, , CBCA ####[facility] ([id number])[address] [place] [address] 72899 Hemoglobin (Bld) [Mass/Vol] 11.4 g/dL Low 11.7-15.5 [facility] Comment on above: Performed By: #### P INR, CMP, , CBCA ####[facility] ([id number])[address] [place] [address] 01816 Lymphocytes (Bld) [#/Vol] 3.5 10*3/uL Normal 1.0-3.5 [facility] Comment on above: Performed By: #### P INR, CMP, , CBCA ####[facility] ([id number])[address] [place] [address] 30602 Lymphocytes/100 WBC (Bld) 21.4 % Normal [facility] Comment on above: Performed By: #### P INR, CMP, , CBCA ####[facility] ([id number])[address] [place] [address] 79903 MCH (RBC) [Entitic mass] 29.1 pg Normal 27-34 [facility] Comment on above: Performed By: #### P INR, CMP, , CBCA ####[facility] ([id number])[address] [place] [address] 64497 MCHC (RBC) [Mass/Vol] 33.6 g/dL Normal 32-36 [facility] Comment on above: Performed By: #### P INR, CMP, , CBCA ####[facility] ([id number])[address] [place] [address] 38020 MCV (RBC) [Entitic vol] 87 fL Normal 80-100 [facility] Comment on above: Performed By: #### P INR, CMP, , CBCA ####[facility] ([id number])[address] [place] [address] 12050 Monocytes (Bld) [#/Vol] 0.9 10*3/uL Normal 0-0.9 [facility] Comment on above: Performed By: #### P INR, CMP, , CBCA ####[facility] ([id number])[address] [place] [address] 38698 Monocytes/100 WBC (Bld) 5.8 % Normal [facility] Comment on above: Performed By: #### P INR, CMP, , CBCA ####[facility] ([id number])[address] [place] [address] 87075 Neutrophils/100 WBC (Bld) 64.9 % Normal [facility] Comment on above: Performed By: #### P INR, CMP, , CBCA ####[facility] ([id number])[address] [place] [address] 56792 Platelet mean volume (Bld) [Entitic vol] 8.8 fL Normal 7-12 [facility] Comment on above: Performed By: #### P INR, CMP, , CBCA ####[facility] ([id number])[address] [place] [address] 53763 Platelets (Bld) [#/Vol] 258 10*3/uL Normal 150-450 [facility] Comment on above: Performed By: #### P INR, CMP, , CBCA ####[facility] ([id number])[address] [place] [address] 53378 RBC COUNT 3.92 X10E12/L Normal 3.80-5.20 [facility] Comment on above: Performed By: #### P INR, CMP, , CBCA ####[facility] ([id number])[address] [place] [address] 80305 WBC (Bld) [#/Vol] 16.2 10*3/uL High 4.0-11.0 [facility] Comment on above: Performed By: #### P INR, CMP, , CBCA ####[facility] ([id number])[address] [place] [address] 91706 COMPREHENSIVE METABOLIC PANE [place] 12-22-2023 Albumin [Mass/Vol] 3.4 g/dL Normal 3.2-5.3 [facility] Comment on above: Performed By: #### P INR, CMP, , CBCA ####[facility] ([id number])[address] [place] [address] 60138 ALP [Catalytic activity/Vol] 59 U/L Normal 39-130 [facility] Comment on above: Performed By: #### P INR, CMP, , CBCA ####[facility] ([id number])[address] [place] [address] 21725 ALT [Catalytic activity/Vol] 11 U/L Normal 0-31 [facility] Comment on above: Performed By: #### P INR, CMP, , CBCA ####[facility] ([id number])[address] [place] [address] 34553 Anion gap [Moles/Vol] 11 mmol/L Normal 5-15 [facility] Comment on above: Performed By: #### P INR, CMP, , CBCA ####[facility] ([id number])[address] [place] [address] 81049 AST [Catalytic activity/Vol] 14 U/L Normal 0-41 [facility] Comment on above: Performed By: #### P INR, CMP, , CBCA ####[facility] ([id number])[address] [place] [address] 39181 Bilirubin [Mass/Vol] 0.8 mg/dL Normal 0.3-1.2 [facility] Comment on above: Performed By: #### P INR, CMP, , CBCA ####[facility] ([id number])[address] [place] [address] 27904 Calcium [Mass/Vol] 8.5 mg/dL Normal 8.5-10.5 [facility] Comment on above: Performed By: #### P INR, CMP, , CBCA ####[facility] ([id number])[address] [place] [address] 93508 Chloride [Moles/Vol] 98 mmol/L Normal 98-109 [facility] Comment on above: Performed By: #### P INR, CMP, , CBCA ####[facility] ([id number])[address] [place] [address] 68833 CO2 [Moles/Vol] 26 mmol/L Normal 22-32 [facility] Comment on above: Performed By: #### P INR, CMP, , CBCA ####[facility] ([id number])[address] [place] [address] 17914 Creatinine [Mass/Vol] 0.78 mg/dL Normal 0.40-1.00 [facility] Comment on above: Result Comment: METH OD TRACEABLE TO IDMS STANDARD Performed By: #### P INR, CMP, , CBCA ####[facility] ([id number])[address] [place] [address] 21731 GFR/1.73 sq M.predicted among non-blacks MDRD (S/P/Bld) [Vol rate/Area] 81 mL/min/{1.73_m2} Normal >59 [facility] Comment on above: Result Comment: Reported eGFR is based on the CKD-EPI 2020 equation that does not use a race coefficient. Performed By: #### P INR, CMP, , CBCA ####[facility] ([id number])[address] [place] [address] 44958 Glucose [Mass/Vol] 121 mg/dL High 65-99 [facility] Comment on above: Performed By: #### P INR, CMP, , CBCA ####[facility] ([id number])[address] [place] [address] 68681 Potassium [Moles/Vol] 3.5 mmol/L Normal 3.5-5.0 [facility] Comment on above: Performed By: #### P INR, CMP, , CBCA ####[facility] ([id number])[address] [place] [address] 58944 Protein [Mass/Vol] 7.2 g/dL Normal 6.0-8.0 [facility] Comment on above: Performed By: #### P INR, CMP, , CBCA ####[facility] ([id number])[address], [place] [address] Sodium [Moles/Vol] 135 mmol/L Normal 134-146 [facility] Comment on above: Performed By: #### P INR, CMP, , CBCA ####[facility] ([id number])[address] [place] [address] 70412 Urea nitrogen [Mass/Vol] 15 mg/dL Normal 5-27 [facility] Comment on above: Performed By: #### P INR, CMP, , CBCA ####[facility] ([id number])[address] [place] [address] 46433 Glucose Glucometer (BldC) [M ass/Vol]on 12-22-2023 Glucose [Mass/Vol] 147 mg/dL High 65-99 [facility] Glucose [Mass/Vol] 136 mg/dL High 65-99 [facility] Glucose [Mass/Vol] 120 mg/dL High 65-99 [facility] MAGNESIUMon 12-22-2023 Magnesium [Mass/Vol] 2.0 mg/dL Normal 1.8-2.6 [facility] Comment on above: Performed By: #### P INR, CMP, , CBCA ####[facility] ([id number])[address] [place] [address] 42341 PROTIME AND INRon 12-22-2023 INR Coag (PPP) [Relative time] 2.6 {INR} High 0.8-1.1 [facility] Comment on above: Performed By: #### P INR, CMP, , CBCA ####[facility] ([id number])[address] [place] [address] 27024 PT Coag (PPP) [Time] 29.0 s High 9.8-13.2 [facility] Comment on above: Result Comment: NEW REFERENCE RANGE Performed By: #### P INR, CMP, , CBCA ####[facility] ([id number])[address] [place] [address] 58725 Vancomycin trough [Mass/Vol] on 12-22-2023 VANCOMYCIN TROUGH 15.2 ug/mL Normal 5.0-20.0 [facility] Comment on above: Performed By: #### 4 092-3 ####[facility] ([id number])[address] [place] [address] 64552 CBC AND AUTO DIFFon 12-21-19 ABSOLUTE BASOPHIL 0.1 X10E9/L Normal 0.0-0.2 [facility] Comment on above: Performed By: #### Chanel ERICKSON [facility], #### [facility] ([id number]) [address] [place] [address] 68390 ABSOLUTE NEUTROPHIL 11.5 X10E9/L High 1.5-6.6 [facility] Comment on above: Performed By: #### Chanel ERICKSON [facility], #### [facility] ([id number]) [address] [place] [address] 90227 Basophils/100 WBC (Bld) 0.8 % Normal [facility] Comment on above: Performed By: #### Chanel ERICKSON, [facility], #### [facility] ([id number]) [address] [place] [address] 06420 Eosinophils (Bld) [#/Vol] 0.3 10*3/uL Normal 0.0-0.4 [facility] Comment on above: Performed By: #### Chanel ERICKSON, [facility], #### [facility] ([id number]) [address] [place] [address] 32728 Eosinophils/100 WBC (Bld) 2.2 % Normal [facility] Comment on above: Performed By: #### Chanel ERICKSON, CMP, #### [facility] ([id number]) [address] [place] [address] 86203 Erythrocyte distribution width (RBC) [Ratio] 14.0 % Normal 11.5-15.0 [facility] Comment on above: Performed By: #### Chanel ERICKSON [facility], 17803-6 #### [facility] ([id number]) [address] [place] [address] 06714 Hematocrit (Bld) [Volume fraction] 34.8 % Low 35-47 [facility] Comment on above: Performed By: #### Chanel ERICKSON [facility], #### [facility] ([id number]) [address] [place] [address] 77273 Hemoglobin (Bld) [Mass/Vol] 11.4 g/dL Low 11.7-15.5 [facility] Comment on above: Performed By: #### Chanel ERICKSON [facility], #### [facility] ([id number]) [address] [place] [address] 55549 Lymphocytes (Bld) [#/Vol] 2.0 10*3/uL Normal 1.0-3.5 [facility] Comment on above: Performed By: #### Chanel ERICKSON [facility], 78206-0 #### [facility] ([id number]) [address] [place] [address] 17813 Lymphocytes/100 WBC (Bld) 13.2 % Normal [facility] Comment on above: Performed By: #### Chanel ERICKSON [facility], 33947-7 #### [facility] ([id number]) [address] [place] [address] 29054 MCH (RBC) [Entitic mass] 28.5 pg Normal 27-34 [facility] Comment on above: Performed By: #### Chanel ERICKSON [facility], 33083-2 #### [facility] ([id number]) [address] [place] [address] 53168 MCHC (RBC) [Mass/Vol] 32.6 g/dL Normal 32-36 [facility] Comment on above: Performed By: #### C DRE, CMP, 56374-2 #### [facility] ([id number]) [address] [place] [address] 88894 MCV (RBC) [Entitic vol] 87 fL Normal 80-100 [facility] Comment on above: Performed By: #### C DRE, CMP, #### [facility] ([id number]) [address] [place] [address] 29409 Monocytes (Bld) [#/Vol] 1.3 10*3/uL High 0-0.9 [facility] Comment on above: Performed By: #### Chanel ERICKSON, CMP, #### [facility] ([id number]) [address] [place] [address] 56227 Monocytes/100 WBC (Bld) 8.7 % Normal [facility] Comment on above: Performed By: #### Chanel ERICKSON, CMP, #### [facility] ([id number]) [address] [place] [address] 11035 Neutrophils/100 WBC (Bld) 75.1 % Normal [facility] Comment on above: Performed By: #### Chanel ERICKSON, CMP, #### [facility] ([id number]) [address] [place] [address] 33328 Platelet mean volume (Bld) [Entitic vol] 8.8 fL Normal 7-12 [facility] Comment on above: Performed By: #### Chanel ERICKSON, CMP, #### [facility] ([id number]) [address] [place] [address] 65368 Platelets (Bld) [#/Vol] 257 10*3/uL Normal 150-450 [facility] Comment on above: Performed By: #### Chanel BCA, CMP, #### [facility] ([id number]) [address] [place] [address] 12824 RBC COUNT 3.98 X10E12/L Normal 3.80-5.20 [facility] Comment on above: Performed By: #### C BCA, CMP, 61560-5 #### [facility] ([id number]) [address] [place] [address] 67718 WBC (Bld) [#/Vol] 15.3 10*3/uL High 4.0-11.0 [facility] Comment on above: Performed By: #### C BCA, CMP, 98420-8 #### [facility] ([id number]) [address] [place] [address] 50239 COMPREHENSIVE METABOLIC PANE [place] 12-21-2023 Albumin [Mass/Vol] 3.3 g/dL Normal 3.2-5.3 [facility] Comment on above: Performed By: #### C BCA, CMP, 59400-7 ####[facility] ([id number])[address] [place] [address] 62852 ALP [Catalytic activity/Vol] 59 U/L Normal 39-130 [facility] Comment on above: Performed By: #### C BCA, CMP, 43257-6 ####[facility] ([id number])[address] [place] [address] 98390 ALT [Catalytic activity/Vol] 13 U/L Normal 0-31 [facility] Comment on above: Performed By: #### C BCA, CMP, 38989-6 ####[facility] ([id number])[address] [place] [address] 89257 Anion gap [Moles/Vol] 11 mmol/L Normal 5-15 [facility] Comment on above: Performed By: #### C BCA, CMP, 67238-9 ####[facility] ([id number])[address] [place] [address] [place] [address] AST [Catalytic activity/Vol] 11 U/L Normal 0-41 [facility] Comment on above: Performed By: #### C SEAN ERICKSON, 56653-8 ####[facility] ([id number])[address] [place] [address] 94051 Bilirubin [Mass/Vol] 1.0 mg/dL Normal 0.3-1.2 [facility] Comment on above: Performed By: #### C SEAN ERICKSON, ####[facility] ([id number])[address] [place] [address] 04841 Calcium [Mass/Vol] 8.5 mg/dL Normal 8.5-10.5 [facility] Comment on above: Performed By: #### Chanel ERICKSON CMP, ####[facility] ([id number])[address] [place] [address] [place] [address] Chloride [Moles/Vol] 101 mmol/L Normal 98-109 [facility] Comment on above: Performed By: #### C SEAN ERICKSON, ####[facility] ([id number])[address] [place] [address] 53195 CO2 [Moles/Vol] 25 mmol/L Normal 22-32 [facility] Comment on above: Performed By: #### C SEAN ERICKSON, ####[facility] ([id number])[address] [place] [address] [place] [address] Creatinine [Mass/Vol] 0.66 mg/dL Normal 0.40-1.00 [facility] Comment on above: Result Comment: METH OD TRACEABLE TO IDMS STANDARD Performed By: #### C DRE CMP, ####[facility] ([id number])[address] [place] [address] [place] [address] eGFR (CKD-EPI) NON-RACE DEPENDENT >90 Normal >59 [facility] Comment on above: Result Comment: Reported eGFR is based on the CKD-EPI 2020 equation that does not use a race coefficient. Performed By: #### C SEAN ERICKSON, 42825-7 ####[facility] ([id number])[address] [place] [address] [place] [address] Glucose [Mass/Vol] 132 mg/dL High 65-99 [facility] Comment on above: Performed By: #### Chanel ERICKSON [facility], 89871-4 ####[facility] ([id number])[address] [place] [address] 93537 Potassium [Moles/Vol] 3.5 mmol/L Normal 3.5-5.0 [facility] Comment on above: Performed By: #### Chanel ERICKSON CMP, ####[facility] ([id number])[address] [place] [address] [place] [address] Protein [Mass/Vol] 7.0 g/dL Normal 6.0-8.0 [facility] Comment on above: Performed By: #### C DRE [facility], 93161-8 ####[facility] ([id number])[address] [place] [address] 40957 Sodium [Moles/Vol] 137 mmol/L Normal 134-146 [facility] Comment on above: Performed By: #### Chanel ERICKSON CMP, 11233-3 ####[facility] ([id number])[address] [place] [address] [place] [address] Urea nitrogen [Mass/Vol] 15 mg/dL Normal 5-27 [facility] Comment on above: Performed By: #### Chanel ERICKSON CMP, 81044-5 ####[facility] ([id number])[address] [place] [address] [place] [address] Glucose Glucometer (BldC) [M ass/Vol]on 12-21-2023 Glucose [Mass/Vol] 130 mg/dL High 65-99 [facility] Glucose [Mass/Vol] 153 mg/dL High 65-99 [facility] Glucose [Mass/Vol] 206 mg/dL High 65-99 [facility] MAGNESIUMon 12-21-2023 Magnesium [Mass/Vol] 2.2 mg/dL Normal 1.8-2.6 [facility] Comment on above: Performed By: #### C BCA, CMP, 72004-5 ####[facility] ([id number])[address] [place], [place] [id number] MR FOOT LT W WO CONTon 12-20 [...] on 12/21/2023 1:06 PM Normal [facility] POTASSIUMon 12-21-2023 Potassium [Moles/Vol] 3.8 mmol/L Normal 3.5-5.0 [facility] Comment on above: Performed By: #### 2 823-3 ####[facility] ([id number])[address] [place] [id number] PROTIME AND INRon 12-21-2023 INR Coag (PPP) [Relative time] 2.4 {INR} High 0.8-1.1 [facility] Comment on above: Performed By: #### P INR ####[facility] ([id number])[address] [place] [id number] PT Coag (PPP) [Time] 27.0 s High 9.8-13.2 [facility] Comment on above: Result Comment: NEW REFERENCE RANGE Performed By: #### P INR ####[facility] ([id number])[address] [place] [id number] BLOOD CULTUREon 12-20-2023 Bacteria identified Aer cx Nom (Bld) SPECIMEN NOTES RSURFACE VEIN CULTURE RESULTS NO GROWTH 5 DAYS Normal [facility] Comment on above: Performed By: #### 1 7928-3 ####[facility] ([id number])[address] [place] [id number] Bacteria identified Aer cx Nom (Bld) SPECIMEN NOTES SUBOPTIMAL VOLUME OF BLOOD COLLECTED, RESULTS MAY BE AFFECTED. CULTURE RESULTS NO GROWTH 5 DAYS Normal [facility] Comment on above: Performed By: #### 1 7928-3 ####[facility] ([id number])[address] [place] [address], [address] [place] [phone] CBC AND AUTO DIFFon 12-20-19 24 ABSOLUTE BASOPHIL 0.1 X10E9/L Normal 0.0-0.2 [facility] Comment on above: Performed By: #### C SEAN ERICKSON, 1986-02 #### [facility] ([id number]) [address] [place], [place] [address] #### [id number] #### [facility] ([id number]) [facility]0 [facility], [address] [place] [address] ABSOLUTE NEUTROPHIL 12.0 X10E9/L High 1.5-6.6 [facility] Comment on above: Performed By: #### C SEAN ERICKSON, 1986-02 #### [facility] ([id number]) [address] [place] [address] 66898 #### [id number] #### [facility] ([id number]) [address] [place] [address] Basophils/100 WBC (Bld) 0.5 % Normal [facility] Comment on above: Performed By: #### Chanel ERICKSON [facility], 1988-02 #### [facility] ([id number]) [address] [place] [address] 34204 #### [id number] #### [facility] ([id number]) [address] [facility], [address] [place] [address] Eosinophils (Bld) [#/Vol] 0.3 10*3/uL Normal 0.0-0.4 [facility] Comment on above: Performed By: #### Chanel ERICKSON [facility], 1988-02 #### [facility] ([id number]) [address] [place] [address] 15847 #### [id number] #### [facility] ([id number]) [address] [facility], [address] [place] [address] Eosinophils/100 WBC (Bld) 2.0 % Normal [facility] Comment on above: Performed By: #### Chanel ERICKSON [facility], 1988-02 #### [facility] ([id number]) [address] [place] [address] 70425 #### [id number] #### [facility] ([id number]) [address] [facility], [address] [place] [address] Erythrocyte distribution width (RBC) [Ratio] 14.0 % Normal 11.5-15.0 [facility] Comment on above: Performed By: #### Chanel ERICKSON [facility], 1988-02 #### [facility] ([id number]) [address] [place] [address] 99142 #### [id number] #### [facility] ([id number]) [address] [place] [address], [address] [place] [address] Hematocrit (Bld) [Volume fraction] 36.1 % Normal 35-47 [facility] Comment on above: Performed By: #### Chanel ERICKSON CMP, 1988-02 #### [facility] ([id number]) [address] [place] [address] 79240 #### [id number] #### [facility] ([id number]) [address] [place] [address], [address] [place] [address] Hemoglobin (Bld) [Mass/Vol] 12.1 g/dL Normal 11.7-15.5 [facility] Comment on above: Performed By: #### Chanel ERICKSON CMP, 1988-02 #### [facility] ([id number]) [address] [place] [address] 76792 #### [id number] #### [facility] ([id number]) [address] [place] [address], [address] [place] [address] Lymphocytes (Bld) [#/Vol] 2.4 10*3/uL Normal 1.0-3.5 [facility] Comment on above: Performed By: #### Chanel ERICKSON CMP, 1988-02 #### [facility] ([id number]) [address] [place] [address] 15404 #### [id number] #### [facility] ([id number]) [address] [place] [address], [address] [place] [address] Lymphocytes/100 WBC (Bld) 14.9 % Normal [facility] Comment on above: Performed By: #### Chanel ERICKSON CMP, 1988-02 #### [facility] ([id number]) [address] [place] [address] 13389 #### 64359-9 #### [facility] ([id number]) [address], [address] [place] [address] MCH (RBC) [Entitic mass] 28.9 pg Normal 27-34 [facility] Comment on above: Performed By: #### Chanel ERICKSON CMP, 1988-02 #### [facility] ([id number]) [address] [place] [address] 04533 #### [id number] #### [facility] ([id number]) [address], [address] [place] [address] MCHC (RBC) [Mass/Vol] 33.5 g/dL Normal 32-36 [facility] Comment on above: Performed By: #### Chanel ERICKSON CMP, 1988-02 #### [facility] ([id number]) [address] [place], [place] [address] #### [id number] #### [facility] ([id number]) [address] [place] [address] MCV (RBC) [Entitic vol] 86 fL Normal 80-100 [facility] Comment on above: Performed By: #### Chanel ERICKSON CMP, 1988-02 #### [facility] ([id number]) [address] [place] [address] 23446 #### 08123-1 #### [facility] ([id number]) [address] [place] [address] Monocytes (Bld) [#/Vol] 1.5 10*3/uL High 0-0.9 [facility] Comment on above: Performed By: #### Chanel ERICKSON CMP, 1988-02 #### [facility] ([id number]) [address] [place] [address] 17197 #### [id number] #### [facility] ([id number]) [address] [place] [address] Monocytes/100 WBC (Bld) 9.3 % Normal [facility] Comment on above: Performed By: #### Chanel ERICKSON CMP, 1988-02 #### [facility] ([id number]) [address] [place] [address] 76361 #### 45274-4 #### [facility] ([id number]) [address] [place] [address] Neutrophils/100 WBC (Bld) 73.3 % Normal [facility] Comment on above: Performed By: #### Chanel ERICKSON CMP, 1988-02 #### [facility] ([id number]) [address] [place] [address] 83090 #### 51482-8 #### [facility] ([id number]) [address] [place] [address] Platelet mean volume (Bld) [Entitic vol] 8.4 fL Normal 7-12 [facility] Comment on above: Performed By: #### Chanel ERICKSON CMP, 1988-02 #### [facility] ([id number]) [address] [place] [address] 52711 #### [id number] #### [facility] ([id number]) [address] [place] [address] Platelets (Bld) [#/Vol] 282 10*3/uL Normal 150-450 [facility] Comment on above: Performed By: #### Chanel ERICKSON CMP, 1988-02 #### [facility] ([id number]) [address] [place] [address] 88718 #### [id number] #### [facility] ([id number]) [address] [place] [address] RBC COUNT 4.18 X10E12/L Normal 3.80-5.20 [facility] Comment on above: Performed By: #### Chanel ERICKSON CMP, 1988-02 #### [facility] ([id number]) [address] [place] [address] 61047 #### 55148-9 #### [facility] ([id number]) [address] [facility] [place] [address] WBC (Bld) [#/Vol] 16.4 10*3/uL High 4.0-11.0 [facility] Comment on above: Performed By: #### Chanel ERICKSON CMP, 1988-02 #### [facility] ([id number]) [address] [place] [address] 06578 #### 03938-7 #### [facility] ([id number]) [address] [facility] [place] [address] COMPREHENSIVE METABOLIC PANE [place] 12-20-2023 Albumin [Mass/Vol] 3.7 g/dL Normal 3.2-5.3 [facility] Comment on above: Performed By: #### Chanel ERICKSON [facility], 1988-02 #### [facility] ([id number]) [address] [place] [address] 57343 #### [id number] #### [facility] ([id number]) [address] [facility], [address] [place] [address] ALP [Catalytic activity/Vol] 74 U/L Normal 39-130 [facility] Comment on above: Performed By: #### Chanel ERICKSON CMP, 1988-02 #### [facility] ([id number]) [address] [place] [address] 97731 #### [id number] #### [facility] ([id number]) [address] [facility], [address] [place] [address] ALT [Catalytic activity/Vol] 15 U/L Normal 0-31 [facility] Comment on above: Performed By: #### Chanel ERICKSON CMP, 1988-02 #### [facility] ([id number]) [address] [place] [address] 05474 #### 84085-8 #### [facility] ([id number]) [address] [place] [address] Anion gap [Moles/Vol] 6 mmol/L Normal 5-15 [facility] Comment on above: Performed By: #### Chanel ERICKSON CMP, 1988-02 #### [facility] ([id number]) [address] [place] [address] 72472 #### 41952-9 #### [facility] ([id number]) [address], [address] [place] [address] AST [Catalytic activity/Vol] 17 U/L Normal 0-41 [facility] Comment on above: Performed By: #### Chanel ERICKSON CMP, 1988-02 #### [facility] ([id number]) [address] [place] [address] 76917 #### 47605-6 #### [facility] ([id number]) [address] [place] [address] Bilirubin [Mass/Vol] 0.4 mg/dL Normal 0.3-1.2 [facility] Comment on above: Performed By: #### Chanel ERICKSON CMP, 1988-02 #### [facility] ([id number]) [address] [place] [address] 67034 #### 93934-9 #### [facility] ([id number]) [address], [address] [place] [address] Calcium [Mass/Vol] 8.3 mg/dL Low 8.5-10.5 [facility] Comment on above: Performed By: #### C BCA, CMP, 1988-02 #### [facility] ([id number]) [address] [place] [address] 79295 #### 04335-5 #### [facility] ([id number]) [address] [place] [address] Chloride [Moles/Vol] 101 mmol/L Normal 98-109 [facility] Comment on above: Performed By: #### C BCA, CMP, 1988-02 #### [facility] ([id number]) [address] [place] [address] 61276 #### 00494-5 #### [facility] ([id number]) [address] [place] [address] CO2 [Moles/Vol] 26 mmol/L Normal 22-32 [facility] Comment on above: Performed By: #### C BCA, CMP, 1988-02 #### [facility] ([id number]) [address] [place] [address] 84761 #### 24675-3 #### [facility] ([id number]) [address] [place] [address] Creatinine [Mass/Vol] 0.69 mg/dL Normal 0.40-1.00 [facility] Comment on above: Result Comment: METH OD TRACEABLE TO IDMS STANDARD Performed By: #### C BCA, CMP, 1988-02 #### [facility] ([id number]) [address] [place] [address] 39222 #### 60633-2 #### [facility] ([id number]) [address] [place] [address] eGFR (CKD-EPI) NON-RACE DEPENDENT >90 Normal >59 [facility] Comment on above: Result Comment: Reported eGFR is based on the CKD-EPI 2021 equation that does not use a race coefficient. Performed By: #### C DRE [facility], 1988-02 #### [facility] ([id number]) [address] [place] [address] 49438 #### 06554-0 #### [facility] ([id number]) [address] [place] [address] Glucose [Mass/Vol] 132 mg/dL High 65-99 [facility] Comment on above: Performed By: #### C DRE [facility], 1988-02 #### [facility] ([id number]) [address] [place] [address] 33321 #### 51069-6 #### [facility] ([id number]) [address] [place] [address] Potassium [Moles/Vol] 3.8 mmol/L Normal 3.5-5.0 [facility] Comment on above: Performed By: #### C DRE [facility], 1988-02 #### [facility] ([id number]) [address] [place] [address] 92761 #### 88966-8 #### [facility] ([id number]) [address] [place] [address] Protein [Mass/Vol] 7.9 g/dL Normal 6.0-8.0 [facility] Comment on above: Performed By: #### C DRE [facility], 1988-02 #### [facility] ([id number]) [address] [place] [address] 06615 #### 09517-3 #### [facility] ([id number]) [address] [place] [address] Sodium [Moles/Vol] 133 mmol/L Low 134-146 [facility] Comment on above: Performed By: #### C DRE CMP, 1988-02 #### [facility] ([id number]) [address] [place] [address] 13643 #### 86407-8 #### [facility] ([id number]) [address] [facility] [place] [address] Urea nitrogen [Mass/Vol] 16 mg/dL Normal 5-27 [facility] Comment on above: Performed By: #### Chanel ERICKSON [facility], 1988-02 #### [facility] ([id number]) [address] [place] [address] 77442 #### 90117-8 #### [facility] ([id number]) [address] [facility] [place] [address] CRP [Mass/Vol]on 12-20-2023 C REACTIVE PROTEIN 11.8 mg/dL High 0.000-0.744 [facility] Comment on above: Performed By: #### Chanel ERICKSON [facility], 1988-02 #### [facility] ([id number]) [address] [place] [address] 84060 #### 38686-1 #### [facility] ([id number]) [address] [facility] [place] [address] ESR Photometric method (Bld) [Velocity]on 12-20-2023 ESR, ERYTHROCYTE SEDIMENTATION RATE 60 mm/h High 0-30 [facility] Comment on above: Performed By: #### Chanel ERICKSON [facility], 1988-02 #### [facility] ([id number]) [address] [place] [address] 32790 #### 76140-0 #### [facility] ([id number]) [address] [place] [address] Glucose Glucometer (BldC) [M ass/Vol]on 12-20-2023 Glucose [Mass/Vol] 174 mg/dL High 65-99 [facility] URINALYSISon 12-20-2023 Bilirubin Ql (U) Negative Normal NEG [facility] Comment on above: Performed By: #### U A #### [facility] ([id number]) [address] [place] [address] [place] [address] BLOOD/HGB Negative Normal NEG [facility] Comment on above: Performed By: #### U A #### [facility] ([id number]) [address] [place] [address] [place] [address] Color (U) YELLOW Normal YELLOW [facility] Comment on above: Performed By: #### U A #### [facility] ([id number]) [address] [place] [address] [place] [address] Glucose Ql (U) Negative Normal NEG [facility] Comment on above: Performed By: #### U A #### [facility] ([id number]) [address] [place] [address] [place] [address] Ketones Ql (U) Negative Normal NEG [facility] Comment on above: Performed By: #### U A #### [facility] ([id number]) [address] [place] [address] [place] [address] Leukocyte esterase Test strip Ql (U) Negative Normal NEG [facility] Comment on above: Performed By: #### U A #### [facility] ([id number]) [address] [place] [address] [place] [address] Nitrite Ql (U) Positive Abnormal NEG [facility] Comment on above: Performed By: #### U A #### [facility] ([id number]) [address] [place] [address] [place] [address] pH (U) 6.0 [pH] Normal 5.0-8.5 [facility] Comment on above: Performed By: #### U A #### [facility] ([id number]) [address] [place] [address] 15071 Protein Ql (U) Negative Normal NEG [facility] Comment on above: Performed By: #### U A #### [facility] ([id number]) [address] [place] [address] 99929 R.B.CELLS 0 /hpf Normal 0-5 [facility] Comment on above: Performed By: #### U A #### [facility] ([id number]) [address] [place] [address] Specific gravity (U) [Rel density] 1.015 Normal 1.003-1.035 [facility] Comment on above: Performed By: #### U A #### [facility] ([id number]) [address] [place] [address] 99661 SQUAMOUS EPITHELIUM 0 to 3 Normal 0-5 [facility] Comment on above: Performed By: #### U A #### [facility] ([id number]) [address] [place] [address]174 TURBIDITY CLEAR Normal CLEAR [facility] Comment on above: Performed By: #### U A #### [facility] ([id number]) [address] [place] [address] 92540 Urobilinogen Qn (U) 0.2 {Mindy'U}/dL Normal <1.1 [facility] Comment on above: Performed By: #### U A #### [facility] ([id number]) [address] [place] [address] 33653 W.B.CELLS 0 to 1 Normal 0-5 [facility] Comment on above: Performed By: #### U A #### [facility] ([id number]) [address] [place] [address] 15325 XR FOOT LT MIN 3 VWSon XR [...] on 12/20/2023 6:37 PM Normal [facility] XR FOOT RT MIN 3 [...] on 12/20/2023 5:56 PM Normal [facility] XR KNEE RT 3 VWSon [...] Andreas Araujo MD on 12/20/2023 5:05 PM [facility] 36on 11-16-2023 36 Please let her know her cholesterol levels look good. Continue pravastatin. Thanks [facility] Telephoneon 11-16-2023 Telephone [id number] Maximo Gill 1950 Date Provider Department Center 11/16/2023 EBER PAGAN CHING [place] Family History Problem Relation Age of Onset Heart attack Father Diabetes Father Hypertension Father Coronary artery disease Father Rheum arthritis Father Family Status - Relation Status Age at Father [facility] 37on 11-01-2023 37 *Increase amlodipine to 10mg daily. You can take 2 tablets of your current 5mg prescription daily until this runs out then start new prescription of 1 - 10mg tablet daily. *Monitor your blood pressure daily 1-2 hours after medications *Have labs drawn *Follow-up with GI given dark stools [facility] Office Visiton 11-01-2023 Follow-up visit [id number] Maximo Gill 1950 Provider Department Center 11/01/2023 EBER PAGAN CHING Salazar Family History Problem Relation Age of Onset Heart attack Father Diabetes Father Hypertension Father Coronary artery disease Father Rheum arthritis Father Family Status - Relation Status Age at Father Level of Service:86915 NC OFFICE/OUTPATIENT ESTABLISHED MOD MDM 30 MIN Reason for Visit and Comments: Atrial Fibrillation [80] Congestive Heart Failure [127] [facility] Office Visiton 05-23-2023 Follow-up visit [id number] Maximo Gill 1950 Date Provider Department Center 05/23/2023 RAMAN CASTANEDA CHING Salazar Family History Problem Relation Age of Onset Heart attack Father Diabetes Father Hypertension Father Coronary artery disease Father Rheum arthritis Father Family Status - Relation Status Age at Father Level of Service:49344 NC OFFICE/OUTPATIENT ESTABLISHED LOW MDM 20-29 MIN Normal [facility] CBC AUTO DIFFon 03-02-2023 BASO # 0.1 103/ul Normal 0.0-0.1 [facility] Comment on above: Performed By: #### C BC #### [facility] [address] [address] [address] Yandy Rodarte Basophils/100 WBC (Bld) 0.4 % Normal 0.2-2.0 [facility] Comment on above: Performed By: #### C BC #### [facility] [address] [place] [address] Dr. Yandy Rodarte EO # 0.5 103/ul Normal 0.0-0.7 [facility] Comment on above: Performed By: #### C BC #### [facility] [address] [place] [address] Dr. Yandy Rodarte Eosinophils/100 WBC (Bld) 4.1 % Normal 0.9-7.0 [facility] Comment on above: Performed By: #### C BC #### [facility] [address] [place] [address] Dr. Yandy Rodarte Erythrocyte distribution width (RBC) [Ratio] 14.0 % Normal 11.0-15.0 [facility] Comment on above: Performed By: #### C BC #### [facility] [address] [place] [address] Dr. Yandy Rodarte Hematocrit (Bld) [Volume fraction] 42.8 % Normal 36.0-48.0 [facility] Comment on above: Performed By: #### C BC #### [facility] [address] [place] [address] Dr. Yandy Rodarte Hemoglobin (Bld) [Mass/Vol] 13.6 g/dL Normal 12.0-16.0 [facility] Comment on above: Performed By: #### C BC #### [facility] [address] [place] [address] Dr. Yandy Rodarte IG # 0.04 10e3/ul Critically high 0.00-0.03 [facility] Comment on above: Performed By: #### C BC #### [facility] [address] [place] [address] Dr. Yandy Roadrte IG % 0.4 % Normal 0.0-0.5 [facility] Comment on above: Performed By: #### C BC #### [facility] [address] [place] [address] Dr. Yandy Rodarte LYMPH # 2.2 103/ul Normal 1.2-3.8 [facility] Comment on above: Performed By: #### C BC #### [facility] [address] [place] [address] Dr. Yandy Rodarte Lymphocytes/100 WBC (Bld) 20.0 % Critically low 20.5-60.0 [facility] Comment on above: Performed By: #### C BC #### [facility] [address] [place] [address] Dr. Yandy Rodarte MANUAL DIFF REQ NO Normal [facility] Comment on above: Performed By: #### C BC #### [facility] [address] [place] [address] Dr. Yandy Rodarte MCH (RBC) [Entitic mass] 28.2 pg Normal 26.7-34.0 [facility] Comment on above: Performed By: #### C BC #### [facility] [address] [place] [address] Dr. Yandy Rodarte MCHC (RBC) [Mass/Vol] 31.8 g/dL Normal 29.9-35.2 [facility] Comment on above: Performed By: #### C BC #### [facility] [address] [place] [address] Dr. Yandy Rodarte MCV (RBC) [Entitic vol] 88.8 fL Normal 81.0-99.0 [facility] Comment on above: Performed By: #### C BC #### [facility] [address] [place] [address] Dr. Yandy Rodarte MONO # 0.7 103/ul Normal 0.3-0.8 [facility] Comment on above: Performed By: #### C BC #### [facility] [address] [place] [address] Dr. Yandy Rodarte Monocytes/100 WBC (Bld) 6.3 % Normal 1.7-12.0 [facility] Comment on above: Performed By: #### C BC #### [facility] [address] [place] [address] Dr. Yandy Rodarte NEUT # 7.7 103/ul Critically high 1.4-6.5 [facility] Comment on above: Performed By: #### C BC #### [facility] [address] [place] [address] Dr. Yandy Rodarte Neutrophils/100 WBC (Bld) 68.8 % Normal 43.0-75.0 [facility] Comment on above: Performed By: #### C BC #### [facility] [address] [place] [address] Dr. Yandy Rodarte Platelet mean volume (Bld) [Entitic vol] 9.8 fL Normal 9.5-13.5 [facility] Comment on above: Performed By: #### C BC #### [facility] [address] [place] [address] Dr. Yandy Rodarte PLT 259 103/ul Normal 150-450 [facility] Comment on above: Performed By: #### C BC #### [facility] [address] [place] [address] Dr. Yandy Rodarte RBC 4.82 106/ul Normal 4.20-5.40 [facility] Comment on above: Performed By: #### C BC #### [facility] [address] [place] [address] Dr. Yandy Rodarte WBC 11.2 103/ul Critically high 4.0-11.0 [facility] Comment on above: Performed By: #### C BC #### [facility] [address] [place] [address] Dr. Yandy Rodarte ECHOCARDIO M/2D COMPLETEon 0 03-02-2023 ECHOCARDIO M/2D COMPLETE Patient: AFIA GILL Exam Date: 03/02/2023 : 1950 Gender:F Ordering : MRS. JESSICA PRECIADO [employer]ER Admission #: [id number] Family : Order #: [id number] CLICK HERE TO VIEW EXAM ECHOCARDIOGRAM REPORT [...] Left Atrium LA Volume Index (2D A2C): 510320 mm3 Left Atrium Systolic Dimension: 3.80 cm [...] Gomez M.D. on 03/02/2023 at 19:19 Normal [facility] LIPID PROFILEon 03-02-2023 CHOL-HDL RATIO NORM SEE BELOW Normal [facility] Comment on above: Result Comment: 3.3 - 4.4 LOW RISK 4.4 - 7.1 AVERAGE RISK 7.1 - 11.0 MODERATE RISK >11.0 HIGH RISK Performed By: #### L IPID, CMP #### [facility] [address] [address] [address] Yandy Rodarte Cholesterol [Mass/Vol] 203 mg/dL Critically high <=200 [facility] Comment on above: Performed By: #### L IPID, CMP #### [facility] [address] [address] [address] Yandy Rodarte Cholesterol in HDL [Mass/Vol] 35 mg/dL Critically low 40-60 [facility] Comment on above: Performed By: #### L IPID, CMP #### [facility] [address] [address] [address] Yandy Rodarte Cholesterol in LDL [Mass/Vol] 123.0 mg/dL Normal [facility] Comment on above: Performed By: #### L IPID, CMP #### [facility] [address] [address] [address] Yandy Rodarte Cholesterol.total/C holesterol in HDL [Mass ratio] 5.8 {ratio} Normal [facility] Comment on above: Performed By: #### L IPID, CMP #### [facility] [address] [address] [address] Yandy Rodarte HDL NORMAL > or = 60 mg/dl - LO W CARDIOVASCULAR RISK <40 mg/dl - HIGH CARDIOVASCULAR RISK Normal [facility] Comment on above: Performed By: #### L IPID, CMP #### [facility] [address] [address] [address] Yandy Rodarte LDL CALC NORMAL SEE BELOW Normal [facility] Comment on above: Result Comment: <100 mg/dl OPTIMAL 100 - 129 mg/dl NEAR OR ABOVE OPTIMAL 130 - 159 mg/dl BORDERLINE HIGH 160 - 189 mg/dl HIGH >190 mg/dl VERY HIGH Performed By: #### L IPID, CMP #### [facility] [address] [address] [address] Yandy Rodarte Triglyceride [Mass/Vol] 225 mg/dL Critically high <=150 [facility] Comment on above: Performed By: #### L IPID, CMP #### [facility] [address] [address] [address] Yandy Rodarte VLDL CALC 45.0 mg/dL Normal [facility] Comment on above: Performed By: #### L IPID, CMP #### [facility] [address] [address] [address] Yandy Rodarte PROF 14(COMP METB)on 023 Albumin [Mass/Vol] 3.5 g/dL Normal 3.4-5.0 [facility] Comment on above: Performed By: #### L IPID, CMP #### [facility] [address] [address] [address] Yandy Rodarte Albumin/Globulin [Mass ratio] 0.8 {ratio} Normal [facility] Comment on above: Performed By: #### L IPID, CMP #### [facility] [address] [address] [address] Yandy Rodarte ALP [Catalytic activity/Vol] 100 U/L Normal 46-116 [facility] Comment on above: Performed By: #### L IPID, CMP #### [facility] [address] [address] [address] Yandy Rodarte ALT [Catalytic activity/Vol] 22 U/L Normal 14-59 [facility] Comment on above: Performed By: #### L IPID, CMP #### [facility] [address] [address] [address] Yandy Rodarte Anion gap [Moles/Vol] 8.9 mmol/L Normal [facility] Comment on above: Performed By: #### L IPID, CMP #### [facility] [address] [address] [address] Yandy Rodarte AST [Catalytic activity/Vol] 17 U/L Normal 15-37 [facility] Comment on above: Performed By: #### L IPID, CMP #### [facility] [address] [address] [address] Yandy Rodarte Bilirubin [Mass/Vol] 0.4 mg/dL Normal 0.2-1.0 [facility] Comment on above: Performed By: #### L IPID, CMP #### [facility] [address] [place] [address] Dr. Yandy Rodarte Calcium [Mass/Vol] 9.2 mg/dL Normal 8.5-10.1 [facility] Comment on above: Performed By: #### L IPID, CMP #### [facility] [address] [address] [address] Yandy Rodarte Chloride [Moles/Vol] 104 mmol/L Normal 98-107 [facility] Comment on above: Performed By: #### L IPID, CMP #### [facility] [address] [address] [address] Yandy Rodarte CO2 [Moles/Vol] 32.6 mmol/L Critically high 21.0-32.0 [facility] Comment on above: Performed By: #### L IPID, CMP #### [facility] [address] [address] [address] Yandy Rodarte Creatinine [Mass/Vol] 0.81 mg/dL Normal 0.55-1.02 [facility] Comment on above: Performed By: #### L IPID, CMP #### [facility] [address] [address] [address] Yandy Rodarte EGFR-AF LIBERIAN >60 Normal >=60 [facility] Comment on above: Performed By: #### L IPID, CMP #### [facility] [address] [address] [address] Yandy Rodarte EGFR-NON AF LIBERIAN >60 Normal >=60 [facility] Comment on above: Performed By: #### L IPID, CMP #### [facility] [address] [address] [address] Yandy Rodarte Globulin (S) [Mass/Vol] 4.6 g/dL Normal [facility] Comment on above: Performed By: #### L IPID, CMP #### [facility] [address] [address] [address] Yandy Rodarte Glucose [Mass/Vol] 114 mg/dL Critically high 74-106 [facility] Comment on above: Performed By: #### L IPID, CMP #### [facility] [address] [place] [address] Dr. Yandy Rodarte Potassium [Moles/Vol] 4.5 mmol/L Normal 3.5-5.1 [facility] Comment on above: Performed By: #### L IPID, CMP #### [facility] [address] [address] [address] Yandy Rodarte Protein [Mass/Vol] 8.1 g/dL Normal 6.4-8.2 [facility] Comment on above: Performed By: #### L IPID, CMP #### [facility] [address] [place] [address] Dr. Yandy Rodarte Sodium [Moles/Vol] 141 mmol/L Normal 136-145 [facility] Comment on above: Performed By: #### L IPID, CMP #### [facility] [address] [address] [address] Yandy Rodarte Urea nitrogen [Mass/Vol] 18.0 mg/dL Normal 7.0-18.0 [facility] Comment on above: Performed By: #### L IPID, CMP #### [facility] [address] [place] [address] Dr. Yandy Rodarte Urea nitrogen/Creatinine [Mass ratio] 22.2 mg/mg Normal [facility] Comment on above: Performed By: #### L IPID, [facility] #### [facility] [address] [address] [address] Yandy Rodarte Office Visiton 02-19-2023 Follow-up visit [id number] Maximo Gill 1950 F Date Provider Department Center 02/19/2023 [id number] PRECIADO [facility] Family History Problem Relation Age of Onset Heart attack Father Diabetes Father Hypertension Father Coronary artery disease Father Rheum arthritis Father Family Status - Relation Status Age at Father Level of Service:35237 NC OFFICE/OUTPATIENT ESTABLISHED MOD MDM 30-39 MIN Reason for Visit and Comments: Follow-up [160408] - 6 month follow up Normal [facility] MG MAMM SCREEN MARIELENA W CADon 0 12-27-2022 MG MAMM SCREEN MARIELENA W CAD Patient: AFIA GILL Exam Date: 12/27/2022 : 1950 Gender:F Ordering : DR YAHIR BROTHERS M.D. Admission #: [id number] Family : Order #: [id number] CLICK HERE TO VIEW EXAM RADIOLOGY REPORT [...] cervical cancer at age 37. LOCATION: [facility] BREAST COMPOSITION: Scattered areas fibroglandular density. FINDINGS: [...] MD on 12/28/2022 at 09:38 Normal [facility] CT SINUSES WO CONon 05-18-[address] [...] by: YAYA ZULUAGA Date: 2022-05-18 08:38 Normal [facility] BASIC METABOLIC PANELon - Calcium [Mass/Vol] 9.6 mg/dL Normal 8.6-10.3 [facility] Comment on above: Order Comment: No: D o not add to previous draw Performed By: #### 5 [id number] #### [facility] [address] [place] [address], [place] Chloride [Moles/Vol] 101 mmol/L Normal 98-107 [facility] Comment on above: Order Comment: No: D o not add to previous draw Performed By: #### 5 0608 #### [facility] [address] [place] [address], [place] CO2 [Moles/Vol] 29 mmol/L Normal 21-31 [facility] Comment on above: Order Comment: No: D o not add to previous draw Performed By: #### 5 0608 #### [facility] [address] [place] [address], [place] Creatinine [Mass/Vol] 0.71 mg/dL Normal 0.60-1.20 [facility] Comment on above: Order Comment: No: D o not add to previous draw Performed By: #### 5 0608 #### [facility] [address] [place] [address], [place] GFR/1.73 sq M predicted among blacks MDRD (S/P/Bld) [Vol rate/Area] mL/min/{1.73_m2} Normal >60 [facility] Comment on above: Order Comment: No: D o not add to previous draw Performed By: #### 5 [id number] #### [facility] [address] [place] [address], [place] GFR/1.73 sq M predicted among non-blacks MDRD (S/P/Bld) [Vol rate/Area] mL/min/{1.73_m2} Normal >60 [facility] Comment on above: Order Comment: No: D o not add to previous draw Performed By: #### 5 [id number] #### [facility] [address] [place] [address], [place] Glucose [Mass/Vol] 127 mg/dL High 70-100 [facility] Comment on above: Order Comment: No: D o not add to previous draw Performed By: #### 5 0608 #### [facility] [address] [place] [address], [place] Potassium [Moles/Vol] 4.3 mmol/L Normal 3.5-5.1 [facility] Comment on above: Order Comment: No: D o not add to previous draw Performed By: #### 5 0608 #### [facility] [address] [place] [address], [facility] Sodium [Moles/Vol] 137 mmol/L Normal 136-145 [facility] Comment on above: Order Comment: No: D o not add to previous draw Performed By: #### 5 0608 #### [facility] [address] [place] [id number], [facility] Urea nitrogen [Mass/Vol] 20 mg/dL Normal 7-25 [facility] Comment on above: Order Comment: No: D o not add to previous draw Performed By: #### 5 0608 #### [facility] [address] [place] [id number], [facility] CBC COMPLETE BLOOD COUNTon - Erythrocyte distribution width (RBC) [Ratio] 14.6 % Normal 11.5-15.0 [facility] Comment on above: Order Comment: No: D o not add to previous draw Performed By: #### 5 [id number] #### [facility] [address] [place] [address], [facility] Hematocrit (Bld) [Volume fraction] 44.6 % Normal 36.0-45.0 [facility] Comment on above: Order Comment: No: D o not add to previous draw Performed By: #### 5 0608 #### [facility] [address] [place] [id number], [facility] Hemoglobin (Bld) [Mass/Vol] 14.1 g/dL Normal 12.0-15.0 [facility] Comment on above: Order Comment: No: D o not add to previous draw Performed By: #### 5 0608 #### [facility] [address] [place] [id number], [facility] MCH (RBC) [Entitic mass] 30.2 pg Normal 27.0-33.0 [facility] Comment on above: Order Comment: No: D o not add to previous draw Performed By: #### 5 0608 #### [facility] [address] MCHC (RBC) [Mass/Vol] 31.6 g/dL Low 32.0-35.0 [facility] Comment on above: Order Comment: No: D o not add to previous draw Performed By: #### 5 0608 #### [facility] [address] [place] [address], [facility] MCV (RBC) [Entitic vol] 95.5 fL Normal 82.0-98.0 [facility] Comment on above: Order Comment: No: D o not add to previous draw Performed By: #### 5 0608 #### [facility] [address] [facility] [place] [facility]. [address] Nucleated RBC/100 WBC (Bld) [Ratio] 0 % Normal 0-0 [facility] Comment on above: Order Comment: No: D o not add to previous draw Performed By: #### 5 0608 #### [facility] [address] [place] [address], [facility] PLAT CNT 250 10*3/uL Normal 150-400 [facility] Comment on above: Order Comment: No: D o not add to previous draw Performed By: #### 5 0608 #### [facility] [address] [facility] [address], [facility] RBC (Bld) [#/Vol] 4.67 10*6/uL Normal 3.80-5.00 The [facility] Comment on above: Order Comment: No: D o not add to previous draw Performed By: #### 5 0608 #### [facility] [address] [place] [address], [facility] WBC (Bld) [#/Vol] 9.20 10*3/uL Normal 4.00-10.60 [facility] Comment on above: Order Comment: No: D o not add to previous draw Performed By: #### 5 0608 #### [facility] [address] [place] [address], [facility] POC GLUCOSE LABon 02-02-2019 Glucose [Mass/Vol] 146 mg/dL High 70-100 [facility] Comment on above: Performed By: #### 5 0608 #### [facility] [address] [place] [id number], [facility] Glucose [Mass/Vol] 115 mg/dL High 70-100 [facility] Comment on above: Performed By: #### 5 0608 #### [facility] [address] [facility] [place] [address], [facility] PROTHROMBIN TIMEon 9 INR Coag (PPP) [Relative time] 1.22 {INR} High 0.91-1.16 [facility] Comment on above: Order Comment: [...] 0608 #### [facility] [address] [place] [address], [facility] PT Coag (PPP) [Time] 15.4 s High 12.3-14.8 [facility] Comment on above: Order Comment: No: D o not add to previous draw Result Comment: ALL RESULTS MUST BE INTERPRETED WITH RESPECT TO BLOOD DRAWING ARTIFACT OR DILUTION ERROR OF ANTICOAGULANT AT THE TIME OF SAMPLING. Performed By: #### 5 0608 #### [facility] [address] [place] [id number], [facility] POC GLUCOSE LABon 02-01-2019 Glucose [Mass/Vol] 152 mg/dL High 70-100 [facility] Comment on above: Performed By: #### 5 0608 #### [facility] [address] [place] [address], [place] Glucose [Mass/Vol] 118 mg/dL High 70-100 [facility] Comment on above: Performed By: #### 5 0608 #### [facility] [address] [place] [address], [place] Glucose [Mass/Vol] 197 mg/dL High 70-100 [facility] Comment on above: Performed By: #### 5 0608 #### [facility] [address] [place] [address], [place] Glucose [Mass/Vol] 123 mg/dL High 70-100 [facility] Comment on above: Performed By: #### 5 0608 #### [facility] [address] [place] [address], [facility] PROTHROMBIN TIMEon 9 INR Coag (PPP) [Relative time] 1.24 {INR} High 0.91-1.16 [facility] Comment on above: Order Comment: [...] #### 0 0071 #### [facility] [address] [place] [address], [facility] PT Coag (PPP) [Time] 15.6 s High 12.3-14.8 [facility] Comment on above: Order Comment: Unkno wn Result Comment: ALL RESULTS MUST BE INTERPRETED WITH RESPECT TO BLOOD DRAWING ARTIFACT OR DILUTION ERROR OF ANTICOAGULANT AT THE TIME OF SAMPLING. Performed By: #### 0 0071 #### [facility] [address] BASIC METABOLIC PANELon 01-20 Calcium [Mass/Vol] 9.5 mg/dL Normal 8.6-10.3 [facility] Comment on above: Order Comment: No: D o not add to previous draw Performed By: #### 0 0071 #### [facility] [address] [facility] [place] [address], [facility] Chloride [Moles/Vol] 98 mmol/L Normal 98-107 [facility] Comment on above: Order Comment: No: D o not add to previous draw Performed By: #### 0 0071 #### [facility] [address] [facility] [place] [address], [facility] CO2 [Moles/Vol] 29 mmol/L Normal 21-31 [facility] Comment on above: Order Comment: No: D o not add to previous draw Performed By: #### 0 0071 #### [facility] [address] [facility] [place] [address], [facility] Creatinine [Mass/Vol] 0.72 mg/dL Normal 0.60-1.20 [facility] Comment on above: Order Comment: No: D o not add to previous draw Performed By: #### 0 0071 #### [facility] [address] [place] [address], [place] GFR/1.73 sq M predicted among blacks MDRD (S/P/Bld) [Vol rate/Area] mL/min/{1.73_m2} Normal >60 [facility] Comment on above: Order Comment: No: D o not add to previous draw Performed By: #### 0 0071 #### [facility] [address] [place] [address], [facility] GFR/1.73 sq M predicted among non-blacks MDRD (S/P/Bld) [Vol rate/Area] mL/min/{1.73_m2} Normal >60 [facility] Comment on above: Order Comment: No: D o not add to previous draw Performed By: #### 0 0071 #### [facility] [address] [place] [address], [place] Glucose [Mass/Vol] 120 mg/dL High 70-100 [facility] Comment on above: Order Comment: No: D o not add to previous draw Performed By: #### 0 0071 #### [facility] [address] [place] [address], [place] Potassium [Moles/Vol] 3.5 mmol/L Normal 3.5-5.1 [facility] Comment on above: Order Comment: No: D o not add to previous draw Performed By: #### 0 0071 #### [facility] [address] [place] [address], [place] Sodium [Moles/Vol] 138 mmol/L Normal 136-145 [facility] Comment on above: Order Comment: No: D o not add to previous draw Performed By: #### 0 0071 #### [facility] [address] [place] [address], [facility] Urea nitrogen [Mass/Vol] 20 mg/dL Normal 7-25 [facility] Comment on above: Order Comment: No: D o not add to previous draw Performed By: #### 0 0071 #### [facility] [address] [place] [address], [facility] CBC COMPLETE BLOOD COUNTon 0 - Erythrocyte distribution width (RBC) [Ratio] 14.6 % Normal 11.5-15.0 [facility] Comment on above: Order Comment: No: D o not add to previous draw Performed By: #### 0 0071 #### [facility] [address] Hematocrit (Bld) [Volume fraction] 42.7 % Normal 36.0-45.0 [facility] Comment on above: Order Comment: No: D o not add to previous draw Performed By: #### 0 0071 #### [facility] [address] [place] [address], [facility] Hemoglobin (Bld) [Mass/Vol] 13.8 g/dL Normal 12.0-15.0 [facility] Comment on above: Order Comment: No: D o not add to previous draw Performed By: #### 0 0071 #### [facility] [address] [place] [address], [facility] MCH (RBC) [Entitic mass] 31.0 pg Normal 27.0-33.0 [facility] Comment on above: Order Comment: No: D o not add to previous draw Performed By: #### 0 0071 #### [facility] [address] [place] [id number], [facility] MCHC (RBC) [Mass/Vol] 32.3 g/dL Normal 32.0-35.0 [facility] Comment on above: Order Comment: No: D o not add to previous draw Performed By: #### 0 0071 #### [facility] [address] [place] [address], [facility] MCV (RBC) [Entitic vol] 96.0 fL Normal 82.0-98.0 [facility] Comment on above: Order Comment: No: D o not add to previous draw Performed By: #### 0 0071 #### [facility] [address] [facility] [address], [facility] Nucleated RBC/100 WBC (Bld) [Ratio] 0 % Normal 0-0 [facility] Comment on above: Order Comment: No: D o not add to previous draw Performed By: #### 0 0071 #### [facility] [address] [facility] [address], [facility] PLAT CNT 217 10*3/uL Normal 150-400 [facility] Comment on above: Order Comment: No: D o not add to previous draw Performed By: #### 0 0071 #### [facility] [address] [facility] [place] [address], [facility] RBC (Bld) [#/Vol] 4.45 10*6/uL Normal 3.80-5.00 The [facility] Comment on above: Order Comment: No: D o not add to previous draw Performed By: #### 0 0071 #### [facility] [address] [facility] [place] [address], [facility] WBC (Bld) [#/Vol] 9.17 10*3/uL Normal 4.00-10.60 [facility] Comment on above: Order Comment: No: D o not add to previous draw Performed By: #### 0 0071 #### [facility] [address] [facility] [place] [address], [facility] POC GLUCOSE LABon 01-31-2019 Glucose [Mass/Vol] 116 mg/dL High 70-100 [facility] Comment on above: Performed By: #### 0 0071 #### [facility] [address] [place] [address], [place] Glucose [Mass/Vol] 122 mg/dL High 70-100 [facility] Comment on above: Performed By: #### 0 0071 #### [facility] [address] [place] [address], [place] Glucose [Mass/Vol] 191 mg/dL High 70-100 [facility] Comment on above: Performed By: #### 0 0071 #### [facility] [address] [place] [address], [place] Glucose [Mass/Vol] 131 mg/dL High 70-100 [facility] Comment on above: Performed By: #### 0 0071 #### [facility] [address] [place], [place] [id number] [place] [address] PROTHROMBIN TIMEon 9 INR Coag (PPP) [Relative time] 1.24 {INR} High 0.91-1.16 [facility] Comment on above: Order Comment: Unkno [...] 0071 #### [facility] [address] [place] [address], [facility] PT Coag (PPP) [Time] 15.6 s High 12.3-14.8 [facility] Comment on above: Order Comment: Unkno wn Result Comment: ALL RESULTS MUST BE INTERPRETED WITH RESPECT TO BLOOD DRAWING ARTIFACT OR DILUTION ERROR OF ANTICOAGULANT AT THE TIME OF SAMPLING. Performed By: #### 0 0071 #### [facility] [address] [place] [address], [facility] BASIC METABOLIC PANELon 01-20 Calcium [Mass/Vol] 10.0 mg/dL Normal 8.6-10.3 [facility] Comment on above: Order Comment: No: D o not add to previous draw Performed By: #### 0 0071 #### [facility] [address] [place] [address], [facility] Chloride [Moles/Vol] 99 mmol/L Normal 98-107 [facility] Comment on above: Order Comment: No: D o not add to previous draw Performed By: #### 0 0071 #### [facility] [address] [place] [address], [facility] CO2 [Moles/Vol] 30 mmol/L Normal 21-[address] [facility] Comment on above: Order Comment: No: D o not add to previous draw Performed By: #### 0 0071 #### [facility] [address] [place] [address], [facility] Creatinine [Mass/Vol] 0.74 mg/dL Normal 0.60-1.20 [facility] Comment on above: Order Comment: No: D o not add to previous draw Performed By: #### 0 0071 #### [facility] [address] [place] [address], [facility] GFR/1.73 sq M predicted among blacks MDRD (S/P/Bld) [Vol rate/Area] mL/min/{1.73_m2} Normal >60 [facility] Comment on above: Order Comment: No: D o not add to previous draw Performed By: #### 0 0071 #### [facility] [address] [place] [address], [place] GFR/1.73 sq M predicted among non-blacks MDRD (S/P/Bld) [Vol rate/Area] mL/min/{1.73_m2} Normal >60 [facility] Comment on above: Order Comment: No: D o not add to previous draw Performed By: #### 0 0071 #### [facility] [address] [place] [address], [place] Glucose [Mass/Vol] 112 mg/dL High 70-100 [facility] Comment on above: Order Comment: No: D o not add to previous draw Performed By: #### 0 0071 #### [facility] [address] [place] [address], [place] Potassium [Moles/Vol] 4.3 mmol/L Normal 3.5-5.1 [facility] Comment on above: Order Comment: No: D o not add to previous draw Performed By: #### 0 0071 #### [facility] [address] [place] [address], [place] Sodium [Moles/Vol] 137 mmol/L Normal 136-145 [facility] Comment on above: Order Comment: No: D o not add to previous draw Performed By: #### 0 0071 #### [facility] [address] [place] [address], [place] Urea nitrogen [Mass/Vol] 20 mg/dL Normal 7-25 [facility] Comment on above: Order Comment: No: D o not add to previous draw Performed By: #### 0 0071 #### [facility] [address] [place] [address], [place] Calcium [Mass/Vol] 9.3 mg/dL Normal 8.6-10.3 [facility] Comment on above: Order Comment: No: D o not add to previous draw Performed By: #### 5 6101 #### [facility] [address] [place] [address], [place] Chloride [Moles/Vol] 103 mmol/L Normal 98-107 [facility] Comment on above: Order Comment: No: D o not add to previous draw Performed By: #### 5 6101 #### [facility] [address] [place] [address], [place] CO2 [Moles/Vol] 28 mmol/L Normal 21-[address] [facility] Comment on above: Order Comment: No: D o not add to previous draw Performed By: #### 5 6101 #### [facility] [address] [place] [address], [place] Creatinine [Mass/Vol] 0.62 mg/dL Normal 0.60-1.20 [facility] Comment on above: Order Comment: No: D o not add to previous draw Performed By: #### 5 6101 #### [facility] [address] [place] [address], [place] GFR/1.73 sq M predicted among blacks MDRD (S/P/Bld) [Vol rate/Area] mL/min/{1.73_m2} Normal >60 [facility] Comment on above: Order Comment: No: D o not add to previous draw Performed By: #### 5 6101 #### [facility] [address] [place] [address], [place] GFR/1.73 sq M predicted among non-blacks MDRD (S/P/Bld) [Vol rate/Area] mL/min/{1.73_m2} Normal >60 [facility] Comment on above: Order Comment: No: D o not add to previous draw Performed By: #### 5 6101 #### [facility] [address] [place] [address], [facility] Glucose [Mass/Vol] 117 mg/dL High 70-100 [facility] Comment on above: Order Comment: No: D o not add to previous draw Performed By: #### 5 6101 #### [facility] [address] [place] [address], [place] Potassium [Moles/Vol] 3.5 mmol/L Normal 3.5-5.1 [facility] Comment on above: Order Comment: No: D o not add to previous draw Performed By: #### 5 6101 #### [facility] [address] [place] [address], [place] Sodium [Moles/Vol] 140 mmol/L Normal 136-145 [facility] Comment on above: Order Comment: No: D o not add to previous draw Performed By: #### 5 6101 #### [facility] [address] [place] [address], [place] Urea nitrogen [Mass/Vol] 15 mg/dL Normal 7-25 [facility] Comment on above: Order Comment: No: D o not add to previous draw Performed By: #### 5 6101 #### [facility] [address] [place] [address], [facility] CBC COMPLETE BLOOD COUNTon 0 - Erythrocyte distribution width (RBC) [Ratio] 14.6 % Normal 11.5-15.0 [facility] Comment on above: Order Comment: No: D o not add to previous draw Performed By: #### 5 6101 #### [facility] [address] [place] [address], [place] Hematocrit (Bld) [Volume fraction] 42.1 % Normal 36.0-45.0 [facility] Comment on above: Order Comment: No: D o not add to previous draw Performed By: #### 5 6101 #### [facility] [address] Hemoglobin (Bld) [Mass/Vol] 13.4 g/dL Normal 12.0-15.0 [facility] Comment on above: Order Comment: No: D o not add to previous draw Performed By: #### 5 6101 #### [facility] [address] [place] [id number], [facility] MCH (RBC) [Entitic mass] 30.6 pg Normal 27.0-33.0 [facility] Comment on above: Order Comment: No: D o not add to previous draw Performed By: #### 5 6101 #### [facility] [address] [place] [address], [facility] MCHC (RBC) [Mass/Vol] 31.8 g/dL Low 32.0-35.0 [facility] Comment on above: Order Comment: No: D o not add to previous draw Performed By: #### 5 6101 #### [facility] [address] [facility] [place] [address], [facility] MCV (RBC) [Entitic vol] 96.1 fL Normal 82.0-98.0 [facility] Comment on above: Order Comment: No: D o not add to previous draw Performed By: #### 5 6101 #### [facility] [address] [facility] [place] [address], [facility] Nucleated RBC/100 WBC (Bld) [Ratio] 0 % Normal 0-0 [facility] Comment on above: Order Comment: No: D o not add to previous draw Performed By: #### 5 6101 #### [facility] [address] [facility] [place] [address], [facility] PLAT CNT 215 10*3/uL Normal 150-400 [facility] Comment on above: Order Comment: No: D o not add to previous draw Performed By: #### 5 6101 #### [facility] [address] [place] [address], [place] RBC (Bld) [#/Vol] 4.38 10*6/uL Normal 3.80-5.00 [facility] Comment on above: Order Comment: No: D o not add to previous draw Performed By: #### 5 6101 #### [facility] [address] [place] [address], [facility] WBC (Bld) [#/Vol] 8.75 10*3/uL Normal 4.00-10.60 [facility] Comment on above: Order Comment: No: D o not add to previous draw Performed By: #### 5 6101 #### [facility] [address] [facility]. [address] Cardiovascular Lab Reporton 01-30-2019 Cardiovascular Lab Report [facility] Patient Name: [facility] A MR #: [id number] Department of Physician: [facility] Tayler Gomez M.D. Division of Service Date: 01/29/2019 Cardiology Birthdate: 1950 Adult Cardiovascular Room #: 3AB [id number] [facility] [address] [place] [address] Cardiovascular Laboratory Report INDICATION: The patient is [...] signed informed consent. She was brought to pharmacy laboratory technician in a fasting state. The right neck area was prepped and draped in usual fashion. Using ultrasound guidance and micropuncture technique, the internal jugular vein was accessed. A 6-Barbadian x 11 cm sheath was placed. A 6-Barbadian Caldera catheter was used for right heart catheterization with measurement of pressures and calculation of cardiac output using the estimated Nader method. The Caldera catheter was removed. Using ultrasound guidance and micropuncture technique, the right radial artery was accessed. A 6-Barbadian x 11 cm Hydrophilic sheath was advanced. Verapamil was given through the sheath and a bolus of bivalirudin was given intravenously as the patient has prior history of heparin-induced thrombocytopenia. Note that, the care was taken to avoid any use of heparin during the procedure. Bilateral selective coronary angiography was then performed using 6-Barbadian JL3.5 and JR5 diagnostic catheters. Catheters were removed. A 6-Barbadian angled pigtail catheter was advanced over the [...] with 30% left ventricular ejection fraction. 3. Edle-rp-ijhqwsju mitral regurgitation. 4. Severely elevated filling pressures. [...] Gomez M.D. Date Trans: 01/30/2019 07:50 A/ivan [id number] cc: Yahir Brothers M.D. [address] [address] Yahir Mijares M.D. [address] [address] Normal [facility] MAGNESIUM BLOODon 01-30-2019 Magnesium [Mass/Vol] 2.2 mg/dL Normal 1.9-2.7 [facility] Comment on above: Order Comment: No: D o not add to previous draw Performed By: #### 0 0071 #### [facility] [address] [place] [address], [facility] Magnesium [Mass/Vol] 2.2 mg/dL Normal 1.9-2.7 [facility] Comment on above: Order Comment: No: D o not add to previous draw Performed By: #### 5 6101 #### [facility] [address] [place] [address], [place] POC GLUCOSE LABon 01-30-2019 Glucose [Mass/Vol] 107 mg/dL High 70-100 [facility] Comment on above: Performed By: #### 5 6101 #### [facility] [address] [place] [address], [place] Glucose [Mass/Vol] 125 mg/dL High 70-100 [facility] Comment on above: Performed By: #### 5 6101 #### [facility] [address] Glucose [Mass/Vol] 137 mg/dL High 70-100 [facility] Comment on above: Performed By: #### 5 6101 #### [facility] [address] [facility]. [address] Glucose [Mass/Vol] 114 mg/dL High 70-100 [facility] Comment on above: Performed By: #### 5 6101 #### [facility] [address] [facility]. [address] PROTHROMBIN TIMEon 9 INR Coag (PPP) [Relative time] 1.23 {INR} High 0.91-1.16 [facility] Comment on above: Order Comment: [...] #### 5 6101 #### [facility] [address] [facility] [address]. [address] PT Coag (PPP) [Time] 15.5 s High 12.3-14.8 [facility] Comment on above: Order Comment: No: D o not add to previous draw Result Comment: ALL RESULTS MUST BE INTERPRETED WITH RESPECT TO BLOOD DRAWING ARTIFACT OR DILUTION ERROR OF ANTICOAGULANT AT THE TIME OF SAMPLING. Performed By: #### 5 [id number] #### [facility] [address] [facility]. [address] TSH3on 01-30-2019 TSH 3RD GENERATION 1.24 uIU/mL Normal 0.34-5.60 [facility] Comment on above: Order Comment: No: D o not add to previous draw Performed By: #### 5 6101 #### [facility] [address] [facility] [place]. [address] CBC COMPLETE BLOOD COUNTon 0 01-29-2019 Erythrocyte distribution width (RBC) [Ratio] 14.7 % Normal 11.5-15.0 [facility] Comment on above: Order Comment: No: D o not add to previous draw Performed By: #### 5 0608 #### [facility] [address] [facility]. [address] Hematocrit (Bld) [Volume fraction] 43.4 % Normal 36.0-45.0 [facility] Comment on above: Order Comment: No: D o not add to previous draw Performed By: #### 5 0608 #### [facility] [address] [facility] [place] [address], [facility] Hemoglobin (Bld) [Mass/Vol] 13.8 g/dL Normal 12.0-15.0 [facility] Comment on above: Order Comment: No: D o not add to previous draw Performed By: #### 5 0608 #### [facility] [address] [place] [address], [facility] MCH (RBC) [Entitic mass] 30.3 pg Normal 27.0-33.0 [facility] Comment on above: Order Comment: No: D o not add to previous draw Performed By: #### 5 0608 #### [facility] [address] [place] [address], [facility] MCHC (RBC) [Mass/Vol] 31.8 g/dL Low 32.0-35.0 [facility] Comment on above: Order Comment: No: D o not add to previous draw Performed By: #### 5 0608 #### [facility] [address] [place] [address], [facility] MCV (RBC) [Entitic vol] 95.2 fL Normal 82.0-98.0 [facility] Comment on above: Order Comment: No: D o not add to previous draw Performed By: #### 5 0608 #### [facility] [address] [address], [facility] Nucleated RBC/100 WBC (Bld) [Ratio] 0 % Normal 0-0 [facility] Comment on above: Order Comment: No: D o not add to previous draw Performed By: #### 5 0608 #### [facility] [address] [facility] [place] [address], [facility] PLAT CNT 240 10*3/uL Normal 150-400 [facility] Comment on above: Order Comment: No: D o not add to previous draw Performed By: #### 5 0608 #### [facility] [address] [facility] [place] [address], [facility] RBC (Bld) [#/Vol] 4.56 10*6/uL Normal 3.80-5.00 [facility] Comment on above: Order Comment: No: D o not add to previous draw Performed By: #### 5 0608 #### [facility] [address] [place] [address], [facility] WBC (Bld) [#/Vol] 9.28 10*3/uL Normal 4.00-10.60 [facility] Comment on above: Order Comment: No: D o not add to previous draw Performed By: #### 5 0608 #### [facility] [address] [place] [address], [place] COMP METABOLIC PANELon 01-29 Albumin [Mass/Vol] 4.1 g/dL Normal 3.5-5.7 [facility] Comment on above: Order Comment: No: D o not add to previous draw Performed By: #### 1 0070, 81961, 92555 #### [facility] [address] [place] [address], [place] ALKALINE PHOSPH 50 IU/L Normal 34-104 [facility] Comment on above: Order Comment: No: D o not add to previous draw Performed By: #### 1 0, 23209, 91095 #### [facility] [address] [place] [address], [place] ALT [Catalytic activity/Vol] 14 U/L Normal 7-52 [facility] Comment on above: Order Comment: No: D o not add to previous draw Performed By: #### 1 0, 98947, 28253 #### [facility] [address] [place] [address], [place] AST [Catalytic activity/Vol] 15 U/L Normal 13-39 [facility] Comment on above: Order Comment: No: D o not add to previous draw Performed By: #### 1 0070, 16526, 64127 #### [facility] [address] [place] [address], [place] Bilirubin [Mass/Vol] 0.8 mg/dL Normal 0.3-1.0 [facility] Comment on above: Order Comment: No: D o not add to previous draw Performed By: #### 1 0070, 93699, 52576 #### [facility] [address] [place] [address], [place] Calcium [Mass/Vol] 9.6 mg/dL Normal 8.6-10.3 [facility] Comment on above: Order Comment: No: D o not add to previous draw Performed By: #### 1 0, 44566, 59441 #### [facility] [address] [place] [address], [place] Chloride [Moles/Vol] 103 mmol/L Normal 98-107 [facility] Comment on above: Order Comment: No: D o not add to previous draw Performed By: #### 1 0, , 17693 #### [facility] [address] [place] [address], [place] CO2 [Moles/Vol] 30 mmol/L Normal 21-[address] [facility] Comment on above: Order Comment: No: D o not add to previous draw Performed By: #### 1 0, 77859, 95094 #### [facility] [address] [place] [address], [place] Creatinine [Mass/Vol] 0.71 mg/dL Normal 0.60-1.20 [facility] Comment on above: Order Comment: No: D o not add to previous draw Performed By: #### 1 0, 49156, 92322 #### [facility] [address] [place] [address], [place] GFR/1.73 sq M predicted among blacks MDRD (S/P/Bld) [Vol rate/Area] mL/min/{1.73_m2} Normal >60 [facility] Comment on above: Order Comment: No: D o not add to previous draw Performed By: #### 1 0, 32037, 12222 #### [facility] [address] [place] [address], [place] GFR/1.73 sq M predicted among non-blacks MDRD (S/P/Bld) [Vol rate/Area] mL/min/{1.73_m2} Normal >60 [facility] Comment on above: Order Comment: No: D o not add to previous draw Performed By: #### 1 0, 50779, 95343 #### [facility] [address] [place] [address], [place] Glucose [Mass/Vol] 116 mg/dL High 70-100 [facility] Comment on above: Order Comment: No: D o not add to previous draw Performed By: #### 1 0, 54682, 15703 #### [facility] [address] [place] [address], [place] Potassium [Moles/Vol] 3.9 mmol/L Normal 3.5-5.1 [facility] Comment on above: Order Comment: No: D o not add to previous draw Performed By: #### 1 0, , 98162 #### [facility] [address] [place] [address], [place] Protein [Mass/Vol] 7.6 g/dL Normal 6.0-8.3 [facility] Comment on above: Order Comment: No: D o not add to previous draw Performed By: #### 1 0, , 17847 #### [facility] [address] [place] [address], [place] Sodium [Moles/Vol] 140 mmol/L Normal 136-145 [facility] Comment on above: Order Comment: No: D o not add to previous draw Performed By: #### 1 0, 24366, 35820 #### [facility] [address] [place] [address], [place] Urea nitrogen [Mass/Vol] 18 mg/dL Normal 7-25 [facility] Comment on above: Order Comment: No: D o not add to previous draw Performed By: #### 1 0, 75252, 36025 #### [facility] [address] [place] [address], [place] HEMOGLOBIN A1Con 01-29-2019 HbA1c (Bld) [Mass fraction] 6.1 % High 4.0-6.0 [facility] Comment on above: Order Comment: Yes: Add to Previous draw if able Performed By: #### 5 6101 #### [facility] [address] [place] [address], [place] HbA1c (Bld) [Mass fraction] 128 mg/dL High 70-126 [facility] Comment on above: Order Comment: Yes: Add to Previous draw if able Performed By: #### 5 6101 #### [facility] [address] [place] [address], [place] LIPID PROFILEon 01-29-2019 Cholesterol [Mass/Vol] 130 mg/dL Normal 120-200 [facility] Comment on above: Result Comment: CHOL ESTEROL REFERENCE RANGE: 20 YEARS AND OLDER CARDIOVASCULAR RISK Less than 200 mg/dl Low Risk 200 to 239 mg/dl Borderline Risk 240 mg/dl and greater High Risk Performed By: #### 1 0070, 68003, 36823 #### [facility] [address] [place] [address], [place] Cholesterol in HDL [Mass/Vol] 31 mg/dL Normal 23-92 [facility] Comment on above: Result Comment: Slig ht variation in normal range could be due to gender and/or age. HDL CHOLESTEROL REFERENCE RANGE: 20 years and older Cardiovascular Risk > or =60 mg/dL Desirable 40 TO 59 mg/dL Low Risk <40 mg/dL High Risk Performed By: #### 1 0070, 05571, 43162 #### [facility] [address] [place] [address], [place] Cholesterol in LDL [Mass/Vol] 67 mg/dL Normal 0-130 [facility] Comment on above: Result Comment: LDL IS A CALCULATION LDL IS ONLY VALID IF THE TRIG IS LESS THAN 400. Performed By: #### 1 0, 74570, 96107 #### [facility] [address] [place] [address], [place] Cholesterol.total/C holesterol in HDL [Mass ratio] 4.2 {ratio} Normal .0-4.5 [facility] Comment on above: Performed By: #### 1 0, 65750, 24609 #### [facility] [address] [place] [address], [facility] NON-HDL CHOLESTEROL 99 mg/dL Normal [facility] Comment on above: Performed By: #### 1 0, , 22255 #### [facility] [address] [place] [address], [facility] Triglyceride [Mass/Vol] 158 mg/dL High 40-149 [facility] Comment on above: Result Comment: TRIG LYCERIDE REFERENCE RANGE: 20 YEARS AND OLDER CARDIOVASCULAR RISK LESS THAN 150 mg/dl LOW RISK 150 TO 199 mg/dl BORDERLINE RISK 200 mg/dl AND GREATER HIGH RISK Performed By: #### 1 0, , 02072 #### [facility] [address] [place] [address], [facility] VLDL CHOL 32 mg/dL Normal 0-40 [facility] Comment on above: Performed By: #### 1 0, 65805, 43842 #### [facility] [address] [place] [address], [facility] MAGNESIUM BLOODon 01-29-2019 Magnesium [Mass/Vol] 2.2 mg/dL Normal 1.9-2.7 [facility] Comment on above: Order Comment: No: D o not add to previous draw Performed By: #### 1 0, 24969, 36209 #### [facility] [address] [place] [address], [facility] POC GLUCOSE LABon 01-29-2019 Glucose [Mass/Vol] 102 mg/dL High 70-100 [facility] Comment on above: Performed By: #### 8 5499 #### [facility] [address] [place] [address], [place] Glucose [Mass/Vol] 131 mg/dL High 70-100 [facility] Comment on above: Performed By: #### 8 5499 #### [facility] [address] PROTHROMBIN TIMEon 9 INR Coag (PPP) [Relative time] 1.39 {INR} High 0.91-1.16 [facility] Comment on above: Order Comment: [...] #### 5 6101 #### [facility] [address] [facility]. [address] PT Coag (PPP) [Time] 17.1 s High 12.3-14.8 [facility] Comment on above: Order Comment: Yes: Add to Previous draw if able Result Comment: ALL RESULTS MUST BE INTERPRETED WITH RESPECT TO BLOOD DRAWING ARTIFACT OR DILUTION ERROR OF ANTICOAGULANT AT THE TIME OF SAMPLING. Performed By: #### [id number] #### [facility] [address] BASIC METABOLIC PANELon Calcium [Mass/Vol] 10.1 mg/dL Normal 8.6-10.3 [facility] Comment on above: Performed By: #### 0 [id number] #### [facility] [address] [place] [address], [facility] Chloride [Moles/Vol] 100 mmol/L Normal 98-107 [facility] Comment on above: Performed By: #### 0 [id number] #### [facility] [address] [place] [address], [place] CO2 [Moles/Vol] 30 mmol/L Normal 21-[address] [facility] Comment on above: Performed By: #### 0 [id number] #### [facility] [address] [place] [address], [place] Creatinine [Mass/Vol] 0.71 mg/dL Normal 0.60-1.20 [facility] Comment on above: Performed By: #### 0 [id number] #### [facility] [address] [place] [address], [place] GFR/1.73 sq M predicted among blacks MDRD (S/P/Bld) [Vol rate/Area] mL/min/{1.73_m2} Normal >60 [facility] Comment on above: Performed By: #### 0 [id number] #### [facility] [address] [place] [address], [place] GFR/1.73 sq M predicted among non-blacks MDRD (S/P/Bld) [Vol rate/Area] mL/min/{1.73_m2} Normal >60 [facility] Comment on above: Performed By: #### 0 [id number] #### [facility] [address] [place] [address], [place] Glucose [Mass/Vol] 93 mg/dL Normal 70-100 [facility] Comment on above: Performed By: #### 0 [id number] #### [facility] [address] [place] [address], [facility] Potassium [Moles/Vol] 3.7 mmol/L Normal 3.5-5.1 [facility] Comment on above: Performed By: #### 0 [id number] #### [facility] [address] [place] [id number], [facility] Sodium [Moles/Vol] 139 mmol/L Normal 136-145 [facility] Comment on above: Performed By: #### 0 [id number] #### [facility] [address] [place] [address], [facility] Urea nitrogen [Mass/Vol] 16 mg/dL Normal 7-25 [facility] Comment on above: Performed By: #### 0 1 #### [facility] [address] [facility] [place]. [address] CBC COMPLETE BLOOD COUNTon 0 01-22-2019 Erythrocyte distribution width (RBC) [Ratio] 14.9 % Normal 11.5-15.0 [facility] Comment on above: Performed By: #### 5 [id number] #### [facility] [address] [facility] [place] [address], [facility] Hematocrit (Bld) [Volume fraction] 43.0 % Normal 36.0-45.0 [facility] Comment on above: Performed By: #### 5 [id number] #### [facility] [address] [facility] [place] [address], [facility] Hemoglobin (Bld) [Mass/Vol] 13.7 g/dL Normal 12.0-15.0 [facility] Comment on above: Performed By: #### 5 [id number] #### [facility] [address] [facility] [place] [address], [facility] MCH (RBC) [Entitic mass] 30.0 pg Normal 27.0-33.0 [facility] Comment on above: Performed By: #### 5 [id number] #### [facility] [address] MCHC (RBC) [Mass/Vol] 31.9 g/dL Low 32.0-35.0 [facility] Comment on above: Performed By: #### 5 0608 #### [facility] [address] [place] [address], [facility] MCV (RBC) [Entitic vol] 94.3 fL Normal 82.0-98.0 [facility] Comment on above: Performed By: #### 5 [id number] #### [facility] [address] Nucleated RBC/100 WBC (Bld) [Ratio] 0 % Normal 0-0 [facility] Comment on above: Performed By: #### 5 [id number] #### [facility] [address] PLAT CNT 270 10*3/uL Normal 150-400 [facility] Comment on above: Performed By: #### 5 0608 #### [facility] [address] [facility] [address], [facility] RBC (Bld) [#/Vol] 4.56 10*6/uL Normal 3.80-5.00 The [facility] Comment on above: Performed By: #### 5 0608 #### [facility] [address] [facility] [place] [address], [facility] WBC (Bld) [#/Vol] 9.44 10*3/uL Normal 4.00-10.60 The [facility] Comment on above: Performed By: #### 5 [id number] #### [facility] [address] PROTHROMBIN TIMEon 9 INR Coag (PPP) [Relative time] 1.85 {INR} High 0.91-1.16 [facility] Comment on above: Result Comment: ACCC [...] #### 5 [id number] #### [facility] [address] PT Coag (PPP) [Time] 21.4 s High 12.3-14.8 [facility] Comment on above: Result Comment: ALL RESULTS MUST BE INTERPRETED WITH RESPECT TO BLOOD DRAWING ARTIFACT OR DILUTION ERROR OF ANTICOAGULANT AT THE TIME OF SAMPLING. Performed By: #### 5 [id number] #### [facility] [address] Encounters Encounter Date Encounter Type Care Provider Facility Start: 01-23-2024 End: 01-23-2024 ambulatory ANITA [facility] Start: 01-11-2024 End: 01-11-2024 ambulatory ANITA [facility] Start: 12-31-2023 End: 12-31-2023 ambulatory YAHIR BROTHERS [facility] Start: 12-26-2023 End: 12-29-2023 Evaluation and management of inpatient COLIN Zina KEITH [facility] Start: 12-25-2023 End: 12-29-2023 Evaluation and management of inpatient BIJAL Vincent BARNHART [facility] Start: 12-21-2023 End: 12-29-2023 Orders Only Korina Oliver MD Work Phone: [facility] Start: 12-20-2023 End: 12-29-2023 Emergency department patient visit [facility] Start: 12-20-2023 End: 12-29-2023 Emergency department patient visit DANAE BRITTON [facility] Start: 12-20-2023 End: 12-28-2023 Evaluation and management of inpatient [facility] Start: 11-01-2023 End: 11-01-2023 ambulatory EBER TRES [facility] Start: 10-31-2023 End: 10-31-2023 ambulatory YAHIR BROTHERS Not Available Start: 09-05-2023 End: 09-05-2023 ambulatory YAHIR BROTHERS Not Available Start: 07-07-2023 End: 07-10-2023 ambulatory YAHIR BROTHERS Not Available Start: 05-23-2023 End: 05-23-2023 ambulatory [facility] Start: 03-02-2023 End: 03-03-[address] DOCTOR LOYOLA Facility:[facility] Start: 02-19-2023 End: 02-19-2023 [facility] Start: 12-27-2022 End: 12-28-[address] YAHIR BROTHERS Facility:[facility] Start: 05-17-2022 End: 05-18-[address] YAHIR BROTHERS Facility:[facility] Start: 01-29-2019 End: 02-02-2019 Evaluation and management of inpatient YAHIR BROTHERS Facility:[facility] Procedures Date Procedure Procedure Detail Performing Clinician [...] Td Vaccines (2 - Td or Tdap) [facility] Start: 12-20-2024 Adult BMI Screening Adult BMI Screen ing [facility] Start: 12-20-2024 Tobacco Screening Tobacco Screening [facility] Start: 06-22-2023 COVID-19 Vaccine ( season) COVID-19 Vaccine ( season) [facility] Start: 2017 Fall Risk Screening Fall Risk Screen ing [facility] Start: 1970 Adult BMI Follow Up Plan Adult BMI Follow Up Plan [facility] Start: 1964 Depression Screening Depression Scre ening [facility] Start: 1950 Medicare Annual Wellness Visit Medicare Annual Wellness Visit [facility] Immunizations Immunization Date Immunization Notes Care Provider Fa cility 02-04-2021 COVID-19, mRNA, LNP- S, PF, 100mcg/0.5mL Dose Korina Oliver MD Work Phone: [facility] 01-07-2021 COVID-19, mRNA, LNP- S, PF, 100mcg/0.5mL Dose Korina Oliver MD Work Phone: [facility] 08-03-2019 pneumococcal conjuga te vaccine, 13 valent Korina Oliver MD Work Phone: [facility] Payers Date Payer Category Payer Unknown [employer] [id number] 2022-Present [phone] [address] [place] [address] [id number] 1959 Unknown [id number] 1959 Unknown [id number] 1952 Unknown [id number] 2.16.840.1.994718.3.579.2.647 1952 Unknown [id number] 2.16.840.1.470888.3.579.2.593 1952 Unknown [id number] 2.16.840.1.929360.3.579.2.593 1952 Unknown [id number] 2.16.840.1.611046.3.579.2.593 1952 Unknown [id number] 2.16.840.1.731341.3.579.2.1286 1952 Unknown [id number] 2.16.840.1.069104.3.579.2.1286 1952 Unknown [id number] 2.16.840.1.084346.3.579.2.1286 1952 Unknown [id number] 2.16.840.1.006967.3.579.2.1286 1952 Unknown [id number] 2.16.840.1.510963.3.579.2.1286 1952 Unknown [id number] 2.16.840.1.705665.3.579.2.1286 1952 Unknown [id number] 2.16.840.1.960247.3.579.2.1286 1952 Unknown [id number] 2.16.840.1.593114.3.579.2.1286 1952 Unknown [id number] 2.16.840.1.025047.3.579.2.1286 1952 Unknown [id number] 2.16.840.1.972372.3.579.2.1259 1952 Unknown [id number] 2.16.840.1.310181.3.579.2.1259 1952 Unknown [id number] 2.16.840.1.032850.3.579.2.1259 1952 Unknown [id number] 2.16.840.1.564388.3.579.2.1286 Medicare [id number] Social History Date Type Detail Facility Start: 12-20-2023 Tobacco smoking stat us NHIS [facility] End: 03-11-2002 History of tobacco use Current sm[facility] End: 03-11-2002 History of tobacco use [facility]ig[facility] Start: 12-02-2020 End: 12-20-2023 Cigarettes smoked current (pack per day) - Reported 1 [employer] Start: 12-20-2023 Tobacco use and exposure Smoke less tobacco non-user [facility] Start: 12-21-2023 Alcohol intake [facility] Start: 12-02-2020 End: 12-20-2023 [employer] [facility] Has the [employer], or [employer] threatened to shut off services in your home in past 12Mo No [employer] In the past 12 month s, has lack of transportation kept you from medical appointments or from getting medications? No [employer] Start: 12-20-2023 Tobacco Comment quit 17 years ago [facility] Start: 1950 Sex Assigned At Not on file P [employer] Goals Date Patient Goal Desired Activity /State [...] Past Medical History: Diagnosis Date Atrial fibrillation ([facility]) CHF (congestive heart failure) ([facility]) Hypertension Pulmonary embolism ([facility]) Past Surgical History: Past Surgical History: Procedure [...] on file Intimate Partner Violence: Unknown (12/13/2023) [place] Safety & Environment Fear of Current or [...] 2 ) G (more content not included)... [facility] Progress note 01-11-2024 Note Date & [...] today she has been residing at a fpc facility. Her son was present via telephone [...] Atrial fibrillation (CMS/HCC) CHF (congestive heart failure) ([facility]/HCC) Hypertension Pulmonary embolism (CMS/[facility]) Past Surgical History: Past Surgical History: Procedure [...] kg (304 lb) (more content not included)... [facility] Progress note 11-01-2023 Note Date & Type Note Facility 11-01-2023 Note [facility]ovascular [facility] SUBJECTIVE Chief Complaint Patient presents with Atrial Fibrillation Congestive Heart Failure Afia Gill is a 73 y.o. female here for follow-up. HPI Hx: *Atrial fibrillation *NSVT *Systolic heart failure *Pulmonary embolism in 2004 status post left total knee arthroplasty. *Heparin-induced thrombocytopenia. *Pulmonary hypertension by echocardiogram. *Obstructive sleep apnea, on CPAP. *Status post [place] filter. *Morbid obesity. *Continuous oxygen. *Abnormal stress [...] CHF (congestive heart failure), NYHA class 4 ([facility]/HCC) Other chronic pain Past Medical History: Diagnosis Date Atrial fibrillation (CMS/HCC) CHF (congestive heart failure) (CMS/HCC) Hypertension Pulmonary embolism ([facility]/HCC) Family History Problem Relation Name Age of [...] Disp: , Rfl (more content not included)... [facility] Progress note 11-01-2023 Note Date & [...] All other systems reviewed and are negative. [facility] Progress note 05-23-2023 Note Date & Type Note Facility 05-23-2023 Note [place] Cardiology - [facility] Subjective Afia Gill is a [...] filling pressures. She (more content not included)... [facility] Progress note 02-19-2023 Note Date & [...] All other systems reviewed and are negative. [facility] Progress note 02-19-2023 Note Date & [...] Obstructive sleep apnea, on CPAP. Status post [place] filter. Morbid obesity. She is currently on oxygen since December 20, 2018. Holter done to investigate palpitations showed atrial fibrillation with NSVT. Stress test 01/13/2019;1. Fixed versus minimally reversible perfusion defect of the anterior septal wall and apex. 2. Marked cardiomegaly and markedly low ejection fraction, 36%. 3. Dyskinesia of the apex with otherwise global moderate hypokinesis. Echocardiogram 2 (more content not included)... [facility] Instructions Note Date & Type Note [...] 9:14 PM Hospital Course Note MR#: [id number] [facility] Pt. Name: Afia Gill Admitted: 01/29/2019 [...] and content) DATE CREATED AUTHOR 06/17/2019 [facility] DATE CREATED AUTHOR AUTHOR'S ORGANIZ ATION 03/03/2023 [facility] DATE CREATED AUTHOR AUTHOR'S ORGANIZ ATION 12/29/2023 [facility] DATE CREATED AUTHOR AUTHOR'S ORGANIZ ATION 12/29/2023 [facility] DATE CREATED AUTHOR AUTHOR'S ORGANIZ ATION 12/31/2023 [facility] DATE CREATED AUTHOR AUTHOR'S ORGANIZ ATION 01/24/2024 [facility] Care Teams (unrecognized sec tion and content) 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 [employer] provides no warranty or guarantee of the accuracy or completeness of information in this document.
[2024-01-28 08:22] LABS: Basophils Absolute Auto 0.1 10^3/uL (0.0-0.1); Basophils Percent Auto 0.4 % (0.2-2.0); Eosinophils Absolute Auto 0.7 10^3/uL (0.0-0.7); Hematocrit 43.8 % (36.0-48.0); Hemoglobin 13.8 g/dL (12.0-16.0); Immature Granulocytes Abs Auto 0.08 10^3/uL (0.00-0.03); Immature Granulocytes Pct Auto 0.6 % (0.0-0.5); Lymphocytes Absolute Auto 3.5 10^3/uL (1.2-3.8); Lymphocytes Percent Auto 24.7 % (20.5-60.0); Mean Corpuscular HGB Conc 31.5 g/dL (29.9-35.2); Mean Corpuscular Hemoglobin 28.6 pg (26.7-34.0); Mean Corpuscular Volume 90.9 fL (81.0-99.0); Mean Platelet Volume 10.6 fL (9.5-13.5); Monocytes Absolute Auto 0.9 10^3/uL (0.3-0.8); Monocytes Percent Auto 6.5 % (1.7-12.0); Neutrophils Percent Auto 62.8 % (43.0-75.0); Platelet Count 282 10^3/uL (150-450); Red Blood Count 4.82 10^6/uL (4.20-5.40); Red Cell Distribution Width 14.4 % (11.0-15.0); White Blood Count 14.3 10^3/uL (4.0-11.0)
[2024-01-28 08:26] LABS: INR 2.99; Prothrombin Time 29.8 sec (9.0-11.6)
== END 2024-01-28 02:29 | disposition home or self-care (01) ==
LOC: LAB 02:28
PROVIDERS: PCP Internal Medicine; Visit Provider Family Medicine
DX: Z51.81 Encounter for therapeutic drug level monitoring (principal)
CPT/HCPCS: 36415; 85025; 85610

== ENCOUNTER 2024-01-30 06:06 | Outpatient (REF) | payer MEDICARE, SELFPAY ==
--- OUTSIDE RECORDS SUMMARY | 2024-01-30 06:10 | XMS_ITS | CCD ---
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 Care Supervisory Civil Engineer Name Role Phone YAHIR BROTHERS Referring Unavailable YAHIR BROTHERS Primary Care Unavailable AHMED, LAN Attending Unavailable AHMED LAN Admitting Unavailable [place] Procedure Practitioner Unavailab le UNKNOWN, PROVIDER Surgeon [...] Care Unavailable ANDREA, DR GAO Consulting Unavailable [place], DR JEANETTE Armenta Consulting Unavailable Yahir Brothers MD Primary Care Provider [phone] RAND CRAWFORD Attending Unavailable YAHIR BROTHERS Primary Care Unavailable KORINA OLIVER Admitting Unavailable DANIEL BIRMINGHAM Consulting Unavailable DIVISION OF INFECTIOUS DISEASE, [facility] Consulting Unavailable YAYA KUMAR [...] (1 source) Estrogens Drug Allergy 9 [facility] Repository (1 source) heparin Drug Allergy 9 [facility] Repository (2 sources) Penicillins; Translations: [PENICILLINS] Drug allergy (disorder) 9 [facility] Repository (2 sources) pregabalin Drug Allergy 9 [facility] Repository (6 sources) Bleach (Sodium Hypochlorite); Translations: [Bleach (Sodium Hypochlorite)] Propensity to adverse reactions (disorder) 9 [facility] Repository (4 sources) Aztreonam; Translations: [ESTROGENS, CONJUGATED] Drug Allergy 9 [facility] Repository (1 source) heparin Drug Allergy [facility] Repository (5 sources) Penicillin; Translations: [PENICILLIN] Drug Allergy 9 [facility] Repository (1 source) Misc-ENV; Translations: [Misc-ENV] Propensity to adverse reactions (disorder) [facility] Repository (1 source) Estrogens, Conjugated (DETENTION) Drug Allergy 9 [facility] (4 sources) heparin; Translations: [HEPARIN (PORCINE)] Drug Allergy 9 [facility] (4 sources) pregabalin; Translations: [PREGABALIN] Drug Allergy 9 [facility] (3 sources) Other; Translations: [OTHER] Propensity to adverse reactions 1 Rash [facility] (1 source) heparin; Translations: [HEPARIN SODIUM, PORCINE] Drug Allergy 1 [facility] Repository Medications Completed/Discontinued Medications Medication Drug [...] may have her picc line removed. Normal [facility] Follow-Upon 01-23-2024 Follow-Up [id number] Maximo Gill A 1950 F Date Provider Department Center 01/23/2024 [facility] History Problem Relation Age of Onset Heart attack Father Diabetes Father Hypertension Father Coronary artery disease Father Rheum arthritis Father Family Status - Relation Status Age at Father Level of Service:86936 [place] OFFICE/OUTPATIENT ESTABLISHED MOD MDM 30 MIN Reason for Visit and Comments: Follow-up [[id number]] - Pt is here for evaluation of [...] walk which were both difficult before. Normal [facility] 36on 01-22-2024 36 I attempted to call [facility] to get an updated copy of this patient's labs, but the phone rang through without an answer. The patient is following up tomorrow. [facility] Telephoneon 01-22-2024 Telephone [id number] Maximo Gill tiffanie A 1950 F Date Provider Department Center 01/22/2024 [facility] Family History Problem Relation Age of Onset Heart attack Father Diabetes Father Hypertension Father Coronary artery disease Father Rheum arthritis Father Family Status - Relation Status Age at Father Normal [facility] Follow-Upon 01-11-2024 Follow-Up [id number] Maximo Gill tiffanie A 1950 F Date Provider Department Center 01/11/2024 ANITA JONES [facility] Family History Problem Relation Age of Onset Heart attack Father Diabetes Father Hypertension Father Coronary artery disease Father Rheum arthritis Father Family Status - Relation Status Age at Father Level of Service:08080 [place] OFFICE/OUTPATIENT ESTABLISHED MOD MDM 30 MIN Reason for Visit and Comments: PPD Read [[id number]] - Follow up Toes feel better Normal [facility] 36on 01-09-2024 36 Opat received. Call to [facility] and confirmed orders. Labs will be drawn 01/09. Staff was not aware of the appt today so the visit is rescheduled for 01/10. Normal [facility] CBC AND AUTO DIFFon 12-28-19 24 ABSOLUTE BASOPHIL 0.1 X10E9/L Normal 0.0-0.2 [facility] Comment on above: Performed By: #### U A #### [facility] ([id number]) [address] [place] [address] 85477 ABSOLUTE NEUTROPHIL 9.5 X10E9/L High 1.5-6.6 [facility] Comment on above: Performed By: #### U A #### [facility] ([id number]) [address] [place] [address] 93573 Basophils/100 WBC (Bld) 0.5 % Normal [facility] Comment on above: Performed By: #### U A #### [facility] ([id number]) [address] [place] [address] 39179 Eosinophils (Bld) [#/Vol] 0.8 10*3/uL High 0.0-0.4 [facility] Comment on above: Performed By: #### U A #### [facility] ([id number]) [address] [place] [address] 17533 Eosinophils/100 WBC (Bld) 5.8 % Normal [facility] Comment on above: Performed By: #### U A #### [facility] ([id number]) [address] [place] [address] 32013 Erythrocyte distribution width (RBC) [Ratio] 13.6 % Normal 11.5-15.0 [facility] Comment on above: Performed By: #### U A #### [facility] ([id number]) [address] [place] [address] 55489 Hematocrit (Bld) [Volume fraction] 35.5 % Normal 35-47 [facility] Comment on above: Performed By: #### U A #### [facility] ([id number]) [address] [place] [address] 27130 Hemoglobin (Bld) [Mass/Vol] 11.9 g/dL Normal 11.7-15.5 [facility] Comment on above: Performed By: #### U A #### [facility] ([id number]) [address] [place] [address] 64354 Lymphocytes (Bld) [#/Vol] 2.6 10*3/uL Normal 1.0-3.5 [facility] Comment on above: Performed By: #### U A #### [facility] ([id number]) [address] [place] [address] 23894 Lymphocytes/100 WBC (Bld) 19.1 % Normal [facility] Comment on above: Performed By: #### U A #### [facility] ([id number]) [address] [place] [address] 21815 MCH (RBC) [Entitic mass] 28.7 pg Normal 27-34 [facility] Comment on above: Performed By: #### U A #### [facility] ([id number]) [address] [place] [address] [place] [address] MCHC (RBC) [Mass/Vol] 33.4 g/dL Normal 32-36 [facility] Comment on above: Performed By: #### U A #### [facility] ([id number]) [address] [place] [address] 67135 MCV (RBC) [Entitic vol] 86 fL Normal 80-100 [facility] Comment on above: Performed By: #### U A #### [facility] ([id number]) [address] [place] [address] 06150 Monocytes (Bld) [#/Vol] 0.7 10*3/uL Normal 0-0.9 [facility] Comment on above: Performed By: #### U A #### [facility] ([id number]) [address] [place] [address] 05526 Monocytes/100 WBC (Bld) 5.3 % Normal [facility] Comment on above: Performed By: #### U A #### [facility] ([id number]) [address] [place] [address] 67831 Neutrophils/100 WBC (Bld) 69.3 % Normal [facility] Comment on above: Performed By: #### U A #### [facility] ([id number]) [address] [place] [address] 73308 Platelet mean volume (Bld) [Entitic vol] 8.7 fL Normal 7-12 [facility] Comment on above: Performed By: #### U A #### [facility] ([id number]) [address] [place] [address] 87416 Platelets (Bld) [#/Vol] 335 10*3/uL Normal 150-450 [facility] Comment on above: Performed By: #### U A #### [facility] ([id number]) [address] [place] [address] 50918 RBC COUNT 4.13 X10E12/L Normal 3.80-5.20 [facility] Comment on above: Performed By: #### U A #### [facility] ([id number]) [address] [place] [address] 40823 WBC (Bld) [#/Vol] 13.7 10*3/uL High 4.0-11.0 [facility] Comment on above: Performed By: #### U A #### [facility] ([id number]) [address] [place] [address] 53780 COMPREHENSIVE METABOLIC PANE Tyrone 12-28-2023 Albumin [Mass/Vol] 3.1 g/dL Low 3.2-5.3 [facility] Comment on above: Performed By: #### U A #### [facility] ([id number]) [address] [place] [address] 62950 ALP [Catalytic activity/Vol] 68 U/L Normal 39-130 [facility] Comment on above: Performed By: #### U A #### [facility] ([id number]) [address] [place] [address] 26599 ALT [Catalytic activity/Vol] 21 U/L Normal 0-31 [facility] Comment on above: Performed By: #### U A #### [facility] ([id number]) [address] [place] [address] 85092 Anion gap [Moles/Vol] 10 mmol/L Normal 5-15 [facility] Comment on above: Performed By: #### U A #### [facility] ([id number]) [address] [place] [address] 70703 AST [Catalytic activity/Vol] 21 U/L Normal 0-41 [facility] Comment on above: Performed By: #### U A #### [facility] ([id number]) [address] [place] [address] 23043 Bilirubin [Mass/Vol] 0.4 mg/dL Normal 0.3-1.2 [facility] Comment on above: Performed By: #### U A #### [facility] ([id number]) [address] [place] [address] 68348 Calcium [Mass/Vol] 8.6 mg/dL Normal 8.5-10.5 [facility] Comment on above: Performed By: #### U A #### [facility] ([id number]) [address] [place] [address] 96145 Chloride [Moles/Vol] 98 mmol/L Normal 98-109 [facility] Comment on above: Performed By: #### U A #### [facility] ([id number]) [address] [place] [address] 57202 CO2 [Moles/Vol] 31 mmol/L Normal 22-32 [facility] Comment on above: Performed By: #### U A #### [facility] ([id number]) [address] [place] [address] 97676 Creatinine [Mass/Vol] 0.72 mg/dL Normal 0.40-1.00 [facility] Comment on above: Result Comment: METH OD TRACEABLE TO IDMS STANDARD Performed By: #### U A #### [facility] ([id number]) [address] [place] [address] 37531 GFR/1.73 sq M.predicted among non-blacks MDRD (S/P/Bld) [Vol rate/Area] 89 mL/min/{1.73_m2} Normal >59 [facility] Comment on above: Result Comment: Reported eGFR is based on the CKD-EPI 1 equation that does not use a race coefficient. Performed By: #### U A #### [facility] ([id number]) [address] [place] [address] 86769 Glucose [Mass/Vol] 123 mg/dL High 65-99 [facility] Comment on above: Performed By: #### U A #### [facility] ([id number]) [address] [place] [address] 13964 Potassium [Moles/Vol] 3.7 mmol/L Normal 3.5-5.0 [facility] Comment on above: Performed By: #### U A #### [facility] ([id number]) [address] [place] [address] 94790 Protein [Mass/Vol] 7.1 g/dL Normal 6.0-8.0 [facility] Comment on above: Performed By: #### U A #### [facility] ([id number]) [address] [place] [address] 43679 Sodium [Moles/Vol] 139 mmol/L Normal 134-146 [facility] Comment on above: Performed By: #### U A #### [facility] ([id number]) [address] [place] [address] 85670 Urea nitrogen [Mass/Vol] 16 mg/dL Normal 5-27 [facility] Comment on above: Performed By: #### U A #### [facility] ([id number]) [address] [place] [address] 63925 MAGNESIUMon 12-28-2023 Magnesium [Mass/Vol] 2.3 mg/dL Normal 1.8-2.6 [facility] Comment on above: Performed By: #### U A #### [facility] ([id number]) [address] [place] [address] 34180 PROTIME AND INRon 12-28-2023 INR Coag (PPP) [Relative time] 2.5 {INR} High 0.8-1.1 [facility] Comment on above: Performed By: #### U A #### [facility] ([id number]) [address] [place] [address] 30887 PT Coag (PPP) [Time] 28.0 s High 9.8-13.2 [facility] Comment on above: Result Comment: NEW REFERENCE RANGE Performed By: #### U A #### [facility] ([id number]) [address] [place] [address] 22604 Vancomycin trough [Mass/Vol] on 12-28-2023 VANCOMYCIN TROUGH 26.7 ug/mL Critically high 5.0-20.0 [facility] Comment on above: Performed By: #### U A #### [facility] ([id number]) [address] [place] [address] 01781 CBC AND AUTO DIFFon 12-27-19 ABSOLUTE BASOPHIL 0.0 X10E9/L Normal 0.0-0.2 [facility] Comment on above: Performed By: #### Chanel ERICKSON, [facility], 1988-02 #### [facility] ([id number]) [address] [place] [address] 72878 #### [id number] #### [facility] ([id number]) [address], [address] [place] [address] ABSOLUTE NEUTROPHIL 8.9 X10E9/L High 1.5-6.6 [facility] Comment on above: Performed By: #### Chanel ERICKSON, [facility], 1988-02 #### [facility] ([id number]) [address] [place] [address] 63180 #### 35671-9 #### [facility] ([id number]) [address], [address] [place] [address] Basophils/100 WBC (Bld) 0.3 % Normal [facility] Comment on above: Performed By: #### Chanel ERICKSON, CMP, 1986-02 #### [facility] ([id number]) [address] [place] [address] 87857 #### 08211-4 #### [facility] ([id number]) [address], [address] [place] [address] Eosinophils (Bld) [#/Vol] 0.8 10*3/uL High 0.0-0.4 [facility] Comment on above: Performed By: #### Chanel BCA, CMP, 1986-02 #### [facility] ([id number]) [address] [place] [address] 96405 #### 67115-3 #### [facility] ([id number]) [address] [facility] [place] [address] Eosinophils/100 WBC (Bld) 6.1 % Normal [facility] Comment on above: Performed By: #### Chanel ERICKSON CMP, 1986-02 #### [facility] ([id number]) [address] [place] [address] 62310 #### 95406-0 #### [facility] ([id number]) [address] [facility] [facility] [place] [address] Erythrocyte distribution width (RBC) [Ratio] 13.7 % Normal 11.5-15.0 [facility] Comment on above: Performed By: #### Chanel ERICKSON CMP, 1986-02 #### [facility] ([id number]) [address] [place] [address] 30607 #### 80681-4 #### [facility] ([id number]) [address] [facility] [place] [address] Hematocrit (Bld) [Volume fraction] 34.5 % Low 35-47 [facility] Comment on above: Performed By: #### Chanel ERICKSON CMP, 1986-02 #### [facility] ([id number]) [address] [place] [address] 16574 #### 79014-4 #### [facility] ([id number]) [address] [facility] [place] [address] Hemoglobin (Bld) [Mass/Vol] 11.5 g/dL Low 11.7-15.5 [facility] Comment on above: Performed By: #### Chanel ERICKSON CMP, 1986-02 #### [facility] ([id number]) [address] [place] [address] 47163 #### 61404-5 #### [facility] ([id number]) [address] [place] [address] Lymphocytes (Bld) [#/Vol] 2.4 10*3/uL Normal 1.0-3.5 [facility] Comment on above: Performed By: #### Chanel ERICKSON CMP, 1986-02 #### [facility] ([id number]) [address] [place] [address] 27820 #### 89284-7 #### [facility] ([id number]) [address] [facility] [place] [address] Lymphocytes/100 WBC (Bld) 18.4 % Normal [facility] Comment on above: Performed By: #### Chanel ERICKSON CMP, 1988-02 #### [facility] ([id number]) [address] [place] [address] 03036 #### 53285-9 #### [facility] ([id number]) [address] [place] [address] MCH (RBC) [Entitic mass] 28.8 pg Normal 27-34 [facility] Comment on above: Performed By: #### Chanel ERICKSON CMP, 1988-02 #### [facility] ([id number]) [address] [place] [address] 75493 #### 28416-6 #### [facility] ([id number]) [address] [place] [address] MCHC (RBC) [Mass/Vol] 33.3 g/dL Normal 32-36 [facility] Comment on above: Performed By: #### Chanel ERICKSON CMP, 1988-02 #### [facility] ([id number]) [address] [place] [address] 06544 #### 82896-0 #### [facility] ([id number]) [address], [address] [place] [address] MCV (RBC) [Entitic vol] 87 fL Normal 80-100 [facility] Comment on above: Performed By: #### Chanel ERICKSON CMP, 1988-02 #### [facility] ([id number]) [address] [place] [address] 03297 #### 98878-6 #### [facility] ([id number]) [address], [address] [place] [address] Monocytes (Bld) [#/Vol] 0.9 10*3/uL Normal 0-0.9 [facility] Comment on above: Performed By: #### Chanel ERICKSON CMP, 1988-02 #### [facility] ([id number]) [address] [place] [address] 41806 #### 56247-3 #### [facility] ([id number]) [address] [place] [address] Monocytes/100 WBC (Bld) 7.1 % Normal [facility] Comment on above: Performed By: #### Chanel ERICKSON CMP, 1988-02 #### [facility] ([id number]) [address] [place] [address] 15105 #### 50487-4 #### [facility] ([id number]) [address], [address] [place] [address] Neutrophils/100 WBC (Bld) 68.1 % Normal [facility] Comment on above: Performed By: #### Chanel ERICKSON CMP, 1988-02 #### [facility] ([id number]) [address] [place] [address] 81950 #### 19638-0 #### [facility] ([id number]) [address] [place] [address] Platelet mean volume (Bld) [Entitic vol] 8.7 fL Normal 7-12 [facility] Comment on above: Performed By: #### Chanel ERICKSON CMP, 1988-02 #### [facility] ([id number]) [address] [place] [address] 58235 #### 93077-7 #### [facility] ([id number]) [address], [address] [place] [address] Platelets (Bld) [#/Vol] 323 10*3/uL Normal 150-450 [facility] Comment on above: Performed By: #### Chanel ERICKSON CMP, 1988-02 #### [facility] ([id number]) [address] [place] [address] 37379 #### 10569-0 #### [facility] ([id number]) [address] [facility] [place] [address] RBC COUNT 3.98 X10E12/L Normal 3.80-5.20 [facility] Comment on above: Performed By: #### Chanel ERICKSON CMP, 1988-02 #### [facility] ([id number]) [address] [place] [address] 77650 #### 18805-0 #### [facility] ([id number]) [address] [place] [address] WBC (Bld) [#/Vol] 13.1 10*3/uL High 4.0-11.0 [facility] Comment on above: Performed By: #### Chanel ERICKSON CMP, 1988-02 #### [facility] ([id number]) [address] [place] [address] 49450 #### 47262-8 #### [facility] ([id number]) [address] [facility] [place] [address] COMPREHENSIVE METABOLIC PANE Tyrone 12-27-2023 Albumin [Mass/Vol] 3.0 g/dL Low 3.2-5.3 [facility] Comment on above: Performed By: #### Chanel ERICKSON CMP, 1988-02 #### [facility] ([id number]) [address] [place] [address] 79681 #### 42219-7 #### [facility] ([id number]) [address], [address] [place] [address] ALP [Catalytic activity/Vol] 68 U/L Normal 39-130 [facility] Comment on above: Performed By: #### Chanel ERICKSON [facility], 1988-02 #### [facility] ([id number]) [address] [place] [address] 91498 #### 36632-8 #### [facility] ([id number]) [address] [place] [address] ALT [Catalytic activity/Vol] 17 U/L Normal 0-31 [facility] Comment on above: Performed By: #### Chanel ERICKSON [facility], 1988-02 #### [facility] ([id number]) [address] [place] [address] 26197 #### 93995-4 #### [facility] ([id number]) [address] [place] [address] Anion gap [Moles/Vol] 8 mmol/L Normal 5-15 [facility] Comment on above: Performed By: #### C DRE CMP, 1988-02 #### [facility] ([id number]) [address] [place] [address] 56265 #### 66007-0 #### [facility] ([id number]) [address] [place] [address] AST [Catalytic activity/Vol] 16 U/L Normal 0-41 [facility] Comment on above: Performed By: #### C BCA, CMP, 1988-02 #### [facility] ([id number]) [address] [place] [address] 03798 #### 52441-6 #### [facility] ([id number]) [address] [place] [address] Bilirubin [Mass/Vol] 0.5 mg/dL Normal 0.3-1.2 [facility] Comment on above: Performed By: #### C BCA, CMP, 1988-02 #### [facility] ([id number]) [address] [place] [address] 95806 #### 03533-3 #### [facility] ([id number]) [address] [place] [address] Calcium [Mass/Vol] 8.3 mg/dL Low 8.5-10.5 [facility] Comment on above: Performed By: #### C BCA, CMP, 1988-02 #### [facility] ([id number]) [address] [place] [id number] #### [id number] #### [facility] ([id number]) [address] [place] [address] Chloride [Moles/Vol] 99 mmol/L Normal 98-109 [facility] Comment on above: Performed By: #### C BCA, CMP, 1988-02 #### [facility] ([id number]) [address] [place] [id number] #### [id number] #### [facility] ([id number]) [address] [place] [address] CO2 [Moles/Vol] 31 mmol/L Normal 22-32 [facility] Comment on above: Performed By: #### C BCA, CMP, 1988-02 #### [facility] ([id number]) [address] [place] [id number] #### [id number] #### [facility] ([id number]) [address] [place] [address] Creatinine [Mass/Vol] 0.71 mg/dL Normal 0.40-1.00 [facility] Comment on above: Result Comment: METH OD TRACEABLE TO IDMS STANDARD Performed By: #### C DRE [facility], 1988-02 #### [facility] ([id number]) [address] [place] [address] 90621 #### [id number] #### [facility] ([id number]) [address], [address] [place] [address] eGFR (CKD-EPI) NON-RACE DEPENDENT >90 Normal >59 [facility] Comment on above: Result Comment: Reported eGFR is based on the CKD-EPI 2020 equation that does not use a race coefficient. Performed By: #### Chanel ERICKSON [facility], 1988-02 #### [facility] ([id number]) [address] [place] [address] 98345 #### [id number] #### [facility] ([id number]) [address], [address] [place] [address] Glucose [Mass/Vol] 119 mg/dL High 65-99 [facility] Comment on above: Performed By: #### Chanel ERICKSON [facility], 1988-02 #### [facility] ([id number]) [address] [place] [address] 43250 #### 76723-4 #### [facility] ([id number]) [address], [address] [place] [address] Potassium [Moles/Vol] 3.6 mmol/L Normal 3.5-5.0 [facility] Comment on above: Performed By: #### Chanel ERICKSON [facility], 1988-02 #### [facility] ([id number]) [address] [place] [address] 48734 #### 94256-6 #### [facility] ([id number]) [address], [address] [place] [address] Protein [Mass/Vol] 7.0 g/dL Normal 6.0-8.0 [facility] Comment on above: Performed By: #### C [facility]RE [facility], 1988-02 #### [facility] ([id number]) [address] [place] [address] 57443 #### 11419-3 #### [facility] ([id number]) [address], [address] [place] [address] Sodium [Moles/Vol] 138 mmol/L Normal 134-146 [facility] Comment on above: Performed By: #### Chanel ERICKSON [facility], 1988-02 #### [facility] ([id number]) [address] [place] [address] 09810 #### 81287-9 #### [facility] ([id number]) [address], [address] [place] [address] Urea nitrogen [Mass/Vol] 18 mg/dL Normal 5-27 [facility] Comment on above: Performed By: #### Chanel ERICKSON [facility], 1988-02 #### [facility] ([id number]) [address] [place] [address] 77099 #### 23145-2 #### [facility] ([id number]) [address] [place] [address] Glucose Glucometer (BldC) [M ass/Vol]on 12-27-2023 Glucose [Mass/Vol] 149 mg/dL High 65-99 [facility] Glucose [Mass/Vol] 156 mg/dL High 65-99 [facility] Glucose [Mass/Vol] 181 mg/dL High 65-99 [facility] MAGNESIUMon 12-27-2023 Magnesium [Mass/Vol] 2.3 mg/dL Normal 1.8-2.6 [facility] Comment on above: Performed By: #### U A #### [facility] ([id number]) [address] [place] [address] PROTIME AND INRon 12-27-2023 INR Coag (PPP) [Relative time] 2.9 {INR} High 0.8-1.1 [facility] Comment on above: Performed By: #### Chanel ERICKSON [facility], 1988-02 #### [facility] ([id number]) [address] [place] [address] 58678 #### 18384-2 #### [facility] ([id number]) [address] [place] [address], [address] [place] [address] PT Coag (PPP) [Time] 32.6 s High 9.8-13.2 [facility] Comment on above: Result Comment: NEW REFERENCE RANGE Performed By: #### Chanel ERICKSON [facility]MP, 1988-02 #### [facility] ([id number]) [address] [place] [address] 12609 #### 45010-0 #### [facility] ([id number]) [address] [place] [address], [address] [place] [address] CBC AND AUTO DIFFon 12-26-19 24 ABSOLUTE BASOPHIL 0.1 X10E9/L Normal 0.0-0.2 [facility] Comment on above: Performed By: #### Chanel ERICKSON [facility], 1988-02 #### [facility] ([id number]) [address] [place] [address] 71733 #### 86504-3 #### [facility] ([id number]) [address] [place] [address], [address] [place] [address] ABSOLUTE NEUTROPHIL 11.1 X10E9/L High 1.5-6.6 [facility] Comment on above: Performed By: #### Chanel ERICKSON [facility], 1988-02 #### [facility] ([id number]) [address] [place] [address] 20633 #### 40056-7 #### [facility] ([id number]) [address] [facility] [place] [address] Basophils/100 WBC (Bld) 0.4 % Normal [facility] Comment on above: Performed By: #### Chaenl ERICKSON [facility], 1988-02 #### [facility] ([id number]) [address] [place] [address] 28735 #### 87303-6 #### [facility] ([id number]) [address] [facility] [place] [address] Eosinophils (Bld) [#/Vol] 0.8 10*3/uL High 0.0-0.4 [facility] Comment on above: Performed By: #### Chanel ERICKSON [facility], 1988-02 #### [facility] ([id number]) [address] [place] [address] 86260 #### 51092-5 #### [facility] ([id number]) [address] [facility] [place] [address] Eosinophils/100 WBC (Bld) 5.4 % Normal [facility] Comment on above: Performed By: #### Chanel ERICKSON [facility], 1988-02 #### [facility] ([id number]) [address] [place] [address] 42141 #### 15109-7 #### [facility] ([id number]) [address] [facility] [place] [address] Erythrocyte distribution width (RBC) [Ratio] 13.9 % Normal 11.5-15.0 [facility] Comment on above: Performed By: #### Chanel ERICKSON [facility], 1988-02 #### [facility] ([id number]) [address] [place] [address] 88148 #### 72120-1 #### [facility] ([id number]) [address], [address] [place] [address] Hematocrit (Bld) [Volume fraction] 35.9 % Normal 35-47 [facility] Comment on above: Performed By: #### Chanel ERICKSON [facility], 1988-02 #### [facility] ([id number]) [address] [place] [address] 44912 #### 29800-8 #### [facility] ([id number]) [address], [address] [place] [address] Hemoglobin (Bld) [Mass/Vol] 11.7 g/dL Normal 11.7-15.5 [facility] Comment on above: Performed By: #### Chanel ERICKSON [facility], 1988-02 #### [facility] ([id number]) [address] [place] [address] 77589 #### 67436-9 #### [facility] ([id number]) [address], [address] [place] [address] Lymphocytes (Bld) [#/Vol] 2.6 10*3/uL Normal 1.0-3.5 [facility] Comment on above: Performed By: #### Chanel ERICKSON [facility], 1988-02 #### [facility] ([id number]) [address] [place] [address] 60852 #### 01567-4 #### [facility] ([id number]) [address] [place] [address] Lymphocytes/100 WBC (Bld) 16.6 % Normal [facility] Comment on above: Performed By: #### Chanel ERICKSON, CMP, 1988-02 #### [facility] ([id number]) [address] [place] [address] 85297 #### 20714-9 #### [facility] ([id number]) [address], [address] [place] [address] MCH (RBC) [Entitic mass] 28.2 pg Normal 27-34 [facility] Comment on above: Performed By: #### Chanel ERICKSON, CMP, 1988-02 #### [facility] ([id number]) [address] [place] [address] 93972 #### 86001-6 #### [facility] ([id number]) [address], [address] [place] [address] MCHC (RBC) [Mass/Vol] 32.7 g/dL Normal 32-36 [facility] Comment on above: Performed By: #### Chanel ERICKSON, CMP, 1988-02 #### [facility] ([id number]) [address] [place] [address] 93587 #### 63672-0 #### [facility] ([id number]) [address] [place] [address] MCV (RBC) [Entitic vol] 86 fL Normal 80-100 [facility] Comment on above: Performed By: #### Chanel ERICKSON, CMP, 1988-02 #### [facility] ([id number]) [address] [place] [address] 41244 #### 74323-0 #### [facility] ([id number]) [address] [place] [address] Monocytes (Bld) [#/Vol] 0.9 10*3/uL Normal 0-0.9 [facility] Comment on above: Performed By: #### Chanel ERICKSON CMP, 1988-02 #### [facility] ([id number]) [address] [place] [address] 49354 #### 47074-1 #### [facility] ([id number]) [address] [place] [address] Monocytes/100 WBC (Bld) 5.9 % Normal [facility] Comment on above: Performed By: #### Chanel ERICKSON CMP, 1988-02 #### [facility] ([id number]) [address] [place] [address] 44984 #### 45987-2 #### [facility] ([id number]) [address] [place] [address] Neutrophils/100 WBC (Bld) 71.7 % Normal [facility] Comment on above: Performed By: #### Chanel ERICKSON CMP, 1988-02 #### [facility] ([id number]) [address] [place] [address] 20824 #### 98024-7 #### [facility] ([id number]) [address] [place] [address] Platelet mean volume (Bld) [Entitic vol] 8.6 fL Normal 7-12 [facility] Comment on above: Performed By: #### Chanel ERICKSON CMP, 1988-02 #### [facility] ([id number]) [address] [place] [address] 03335 #### 95689-6 #### [facility] ([id number]) [address] [place] [address] Platelets (Bld) [#/Vol] 338 10*3/uL Normal 150-450 [facility] Comment on above: Performed By: #### Chanel ERICKSON CMP, 1988-02 #### [facility] ([id number]) [address] [place] [address] 90187 #### 70954-0 #### [facility] ([id number]) [facility], [address] [place] [address] RBC COUNT 4.16 X10E12/L Normal 3.80-5.20 [facility] Comment on above: Performed By: #### Chanel ERICKSON CMP, 1988-02 #### [facility] ([id number]) [address] [place] [address] 36151 #### 44229-8 #### [facility] ([id number]) [address] [place] [address], [address] [place] [address] WBC (Bld) [#/Vol] 15.5 10*3/uL High 4.0-11.0 [facility] Comment on above: Performed By: #### Chanel ERICKSON CMP, 1988-02 #### [facility] ([id number]) [address] [place] [address] 46171 #### 10035-8 #### [facility] ([id number]) [address] [place] [address], [address] [place] [address] COMPREHENSIVE METABOLIC PANE [place] 12-26-2023 Albumin [Mass/Vol] 3.2 g/dL Normal 3.2-5.3 [facility] Comment on above: Performed By: #### Chanel ERICKSON CMP, 1988-02 #### [facility] ([id number]) [address] [place] [address] 42248 #### 58110-1 #### [facility] ([id number]) [address] [place] [address], [address] [place] [address] ALP [Catalytic activity/Vol] 69 U/L Normal 39-130 [facility] Comment on above: Performed By: #### Chanel BCA CMP, 1988-02 #### [facility] ([id number]) [address] [place] [address] 08459 #### 84731-3 #### [facility] ([id number]) [address], [address] [place] [address] ALT [Catalytic activity/Vol] 16 U/L Normal 0-31 [facility] Comment on above: Performed By: #### Chanel ERICKSON CMP, 1988-02 #### [facility] ([id number]) [address] [place] [address] 80948 #### 00419-7 #### [facility] ([id number]) [address] [facility] [place] [address] Anion gap [Moles/Vol] 10 mmol/L Normal 5-15 [facility] Comment on above: Performed By: #### Chanel ERICKSON CMP, 1988-02 #### [facility] ([id number]) [address] [place] [address] 51581 #### 92962-9 #### [facility] ([id number]) [address] [facility] [place] [address] AST [Catalytic activity/Vol] 17 U/L Normal 0-41 [facility] Comment on above: Performed By: #### Chanel ERICKSON CMP, 1988-02 #### [facility] ([id number]) [address] [place] [address] 67061 #### 95204-8 #### [facility] ([id number]) [address], [address] [place] [address] Bilirubin [Mass/Vol] 0.4 mg/dL Normal 0.3-1.2 [facility] Comment on above: Performed By: #### Chanel ERICKSON CMP, 1988-02 #### [facility] ([id number]) [address] [place] [address] 36923 #### 10839-8 #### [facility] ([id number]) [address] [place] [address] Calcium [Mass/Vol] 8.7 mg/dL Normal 8.5-10.5 [facility] Comment on above: Performed By: #### C DRE CMP, 1988-02 #### [facility] ([id number]) [address] [place] [address] 50019 #### 72793-6 #### [facility] ([id number]) [address] [place] [address] Chloride [Moles/Vol] 98 mmol/L Normal 98-109 [facility] Comment on above: Performed By: #### C SEAN ERICKSON, 1988-02 #### [facility] ([id number]) [address] [place] [address] 80175 #### 69151-6 #### [facility] ([id number]) [address] [place] [address] CO2 [Moles/Vol] 31 mmol/L Normal 22-32 [facility] Comment on above: Performed By: #### C DRE CMP, 1988-02 #### [facility] ([id number]) [address] [place] [address] 16760 #### 53548-3 #### [facility] ([id number]) [address] [place] [address] Creatinine [Mass/Vol] 0.78 mg/dL Normal 0.40-1.00 [facility] Comment on above: Result Comment: METH OD TRACEABLE TO IDMS STANDARD Performed By: #### C DRE CMP, 1988-02 #### [facility] ([id number]) [address] [place] [address] 41838 #### 53784-3 #### [facility] ([id number]) [address] [place] [address] GFR/1.73 sq M.predicted among non-blacks MDRD (S/P/Bld) [Vol rate/Area] 81 mL/min/{1.73_m2} Normal >59 [facility] Comment on above: Result Comment: Reported eGFR is based on the CKD-EPI 2020 equation that does not use a race coefficient. Performed By: #### Chanel ERICKSON CMP, 1988-02 #### [facility] ([id number]) [address] [place] [address] 19925 #### 15543-7 #### [facility] ([id number]) [address] [place] [address] Glucose [Mass/Vol] 129 mg/dL High 65-99 [facility] Comment on above: Performed By: #### Chanel ERICKSON CMP, 1988-02 #### [facility] ([id number]) [address] [place] [address] 11047 #### 50403-5 #### [facility] ([id number]) [address] [place] [address] Potassium [Moles/Vol] 3.8 mmol/L Normal 3.5-5.0 [facility] Comment on above: Performed By: #### Chanel ERICKSON CMP, 1988-02 #### [facility] ([id number]) [address] [place] [address] 95211 #### 56041-7 #### [facility] ([id number]) [address] [place] [address] Protein [Mass/Vol] 7.3 g/dL Normal 6.0-8.0 [facility] Comment on above: Performed By: #### Chanel ERICKSON CMP, 1988-02 #### [facility] ([id number]) [address] [place] [address] 38083 #### 13664-9 #### [facility] ([id number]) [address] [facility] [place] [address] Sodium [Moles/Vol] 139 mmol/L Normal 134-146 [facility] Comment on above: Performed By: #### Chanel ERICKSON CMP, 1988-02 #### [facility] ([id number]) [address] [place] [address] 41754 #### 08465-4 #### [facility] ([id number]) [address] [facility] [place] [address] Urea nitrogen [Mass/Vol] 19 mg/dL Normal 5-27 [facility] Comment on above: Performed By: #### Chanel ERICKSON CMP, 1988-02 #### [facility] ([id number]) [address] [place] [address] 18627 #### 34022-7 #### [facility] ([id number]) [address] [facility] [place] [address] Glucose Glucometer (BldC) [M ass/Vol]on 12-26-2023 Glucose [Mass/Vol] 146 mg/dL High 65-99 [facility] Glucose [Mass/Vol] 182 mg/dL High 65-99 [facility] Glucose [Mass/Vol] 108 mg/dL High 65-99 [facility] MAGNESIUMon 12-26-2023 Magnesium [Mass/Vol] 2.3 mg/dL Normal 1.8-2.6 [facility] Comment on above: Performed By: #### Chanel ERICKSON CMP, 1988-02 #### [facility] ([id number]) [address] [place] [address] 35100 #### 96449-9 #### [facility] ([id number]) [address] [facility] [place] [address] MR FOOT RT W WO CONTon 12-25 [...] Alberto MD on 12/26/2023 12:57 PM Normal [facility] PROTIME AND INRon 12-26-2023 INR Coag (PPP) [Relative time] 3.0 {INR} High 0.8-1.1 [facility] Comment on above: Performed By: #### C SEAN ERICKSON, 1985- #### [facility] ([id number]) [address] [facility] [place] [address] #### 04932-4 #### [facility] ([id number]) [address] [facility], [address] [place] [address] PT Coag (PPP) [Time] 33.3 s High 9.8-13.2 [facility] Comment on above: Result Comment: NEW REFERENCE RANGE Performed By: #### Chanel ERICKSON [facility], 1988-02 #### [facility] ([id number]) [address] [place] [address] 62005 #### 19811-8 #### [facility] ([id number]) [address] [facility] [place] [address] Vancomycin trough [Mass/Vol] on 12-26-2023 VANCOMYCIN TROUGH 11.6 ug/mL Normal 5.0-20.0 [facility] Comment on above: Performed By: #### Chanel ERICKSON [facility], 1988-02 #### [facility] ([id number]) [address] [place] [address] 26967 #### 27254-6 #### [facility] ([id number]) [address] [facility], [address] [place] [address] CBC AND AUTO DIFFon 12-25-19 ABSOLUTE BASOPHIL 0.1 X10E9/L Normal 0.0-0.2 [facility] Comment on above: Performed By: #### Chanel ERICKSON [facility], 1988-02 #### [facility] ([id number]) [address] [place] [address] 92222 #### 53972-2 #### [facility] ([id number]) [address] [facility] [place] [address] ABSOLUTE NEUTROPHIL 9.4 X10E9/L High 1.5-6.6 [facility] Comment on above: Performed By: #### Chanel ERICKSON [facility], 1988-02 #### [facility] ([id number]) [address] [place] [address] 27615 #### 55845-1 #### [facility] ([id number]) [address] [facility] [place] [address] Basophils/100 WBC (Bld) 0.4 % Normal [facility] Comment on above: Performed By: #### Chanel ERICKSON CMP, 1988-02 #### [facility] ([id number]) [address] [place] [address] 44413 #### 99453-7 #### [facility] ([id number]) [address] [place] [address] Eosinophils (Bld) [#/Vol] 0.7 10*3/uL High 0.0-0.4 [facility] Comment on above: Performed By: #### Chanel ERICKSON CMP, 1988-02 #### [facility] ([id number]) [address] [place] [address] 47251 #### 53047-2 #### [facility] ([id number]) [address] [place] [address] Eosinophils/100 WBC (Bld) 5.3 % Normal [facility] Comment on above: Performed By: #### Chanel ERICKSON CMP, 1988-02 #### [facility] ([id number]) [address] [place] [address] 40787 #### 13975-6 #### [facility] ([id number]) [address] [place] [address] Erythrocyte distribution width (RBC) [Ratio] 13.7 % Normal 11.5-15.0 [facility] Comment on above: Performed By: #### Chanel ERICKSON CMP, 1988-02 #### [facility] ([id number]) [address] [place] [address] 68130 #### 64713-3 #### [facility] ([id number]) [address] [place] [address] Hematocrit (Bld) [Volume fraction] 37.8 % Normal 35-47 [facility] Comment on above: Performed By: #### Chanel ERICKSON CMP, 1986-02 #### [facility] ([id number]) [address] [place] [address] #### [id number] #### [facility] ([id number]) [address], [address] [place] [address] Hemoglobin (Bld) [Mass/Vol] 12.6 g/dL Normal 11.7-15.5 [facility] Comment on above: Performed By: #### Chanel ERICKSON CMP, 1986-02 #### [facility] ([id number]) [address] [place] [address] #### [id number] #### [facility] ([id number]) [address], [address] [place] [address] Lymphocytes (Bld) [#/Vol] 2.4 10*3/uL Normal 1.0-3.5 [facility] Comment on above: Performed By: #### Chanel ERICKSON [facility], 1986-02 #### [facility] ([id number]) [address] [place] [address] #### [id number] #### [facility] ([id number]) [address], [address] [place] [address] Lymphocytes/100 WBC (Bld) 17.5 % Normal [facility] Comment on above: Performed By: #### Chanel ERICKSON CMP, 1986-02 #### [facility] ([id number]) [address] [place] [address] #### [id number] #### [facility] ([id number]) [address], [address] [place] [address] MCH (RBC) [Entitic mass] 28.8 pg Normal 27-34 [facility] Comment on above: Performed By: #### Chanel ERICKSON, CMP, 1986-02 #### [facility] ([id number]) [address] [place] [address] #### [id number] #### [facility] ([id number]) [address], [address] [place] [address] MCHC (RBC) [Mass/Vol] 33.4 g/dL Normal 32-36 [facility] Comment on above: Performed By: #### Chanel ERICKSON, CMP, 1986-02 #### [facility] ([id number]) [address] [place] [address] #### 55105-5 #### [facility] ([id number]) [address], [address] [place] [address] MCV (RBC) [Entitic vol] 86 fL Normal 80-100 [facility] Comment on above: Performed By: #### Chanel ERICKSON CMP, 1986-02 #### [facility] ([id number]) [address] [place] [address] #### 78998-8 #### [facility] ([id number]) [address] [place] [address] Monocytes (Bld) [#/Vol] 1.1 10*3/uL High 0-0.9 [facility] Comment on above: Performed By: #### Chanel ERICKSON, CMP, 1986-02 #### [facility] ([id number]) [address] [place] [address] #### [id number] #### [facility] ([id number]) [address], [address] [place] [address] Monocytes/100 WBC (Bld) 8.0 % Normal [facility] Comment on above: Performed By: #### C BCA, CMP, 1988-02 #### [facility] ([id number]) [address] [place] [address] 92059 #### 48912-6 #### [facility] ([id number]) [address], [address] [place] [address] Neutrophils/100 WBC (Bld) 68.8 % Normal [facility] Comment on above: Performed By: #### Chanel ERICKSON [facility], 1988-02 #### [facility] ([id number]) [address] [place] [address] 28464 #### 32447-2 #### [facility] ([id number]) [address], [address] [place] [address] Platelet mean volume (Bld) [Entitic vol] 8.4 fL Normal 7-12 [facility] Comment on above: Performed By: #### Chanel ERICKSON [facility], 1988-02 #### [facility] ([id number]) [address] [place] [address] 75350 #### 41568-7 #### [facility] ([id number]) [address], [address] [place] [address] Platelets (Bld) [#/Vol] 321 10*3/uL Normal 150-450 [facility] Comment on above: Performed By: #### Chanel ERICKSON CMP, 1988-02 #### [facility] ([id number]) [address] [place] [address] 54288 #### 95703-8 #### [facility] ([id number]) [address], [address] [place] [address] RBC COUNT 4.38 X10E12/L Normal 3.80-5.20 [facility] Comment on above: Performed By: #### Chanel ERICKSON CMP, 1988-02 #### [facility] ([id number]) [address] [place] [address] 81461 #### 17236-4 #### [facility] ([id number]) [address] [facility], [address] [place] [address] WBC (Bld) [#/Vol] 13.7 10*3/uL High 4.0-11.0 [facility] Comment on above: Performed By: #### Chanel BCA, CMP, 1988-02 #### [facility] ([id number]) [address] [place] [address] 39932 #### 72347-6 #### [facility] ([id number]) [address] [facility], [address] [place] [address] COMPREHENSIVE METABOLIC PANE Tyrone 12-25-2023 Albumin [Mass/Vol] 3.3 g/dL Normal 3.2-5.3 [facility] Comment on above: Performed By: #### Chanel BCA, CMP, 1988-02 #### [facility] ([id number]) [address] [place] [address] 38845 #### 45417-6 #### [facility] ([id number]) [address] [facility], [address] [place] [address] ALP [Catalytic activity/Vol] 66 U/L Normal 39-130 [facility] Comment on above: Performed By: #### Chanel BCA, CMP, 1988-02 #### [facility] ([id number]) [address] [place] [address] 90054 #### 25286-0 #### [facility] ([id number]) [address] [facility], [address] [place] [address] ALT [Catalytic activity/Vol] 16 U/L Normal 0-31 [facility] Comment on above: Performed By: #### C BCA, CMP, 1988-02 #### [facility] ([id number]) [address] [place] [address] 25460 #### 21512-6 #### [facility] ([id number]) [address], [address] [place] [address] Anion gap [Moles/Vol] 10 mmol/L Normal 5-15 [facility] Comment on above: Performed By: #### Chanel ERICKSON CMP, 1988-02 #### [facility] ([id number]) [address] [place] [address] 06098 #### 04073-8 #### [facility] ([id number]) [facility], [address] [place] [address] AST [Catalytic activity/Vol] 17 U/L Normal 0-41 [facility] Comment on above: Performed By: #### Chanel ERICKSON CMP, 1988-02 #### [facility] ([id number]) [address] [place] [address] 33741 #### 47789-5 #### [facility] ([id number]) [address] [facility], [address] [place] [address] Bilirubin [Mass/Vol] 0.5 mg/dL Normal 0.3-1.2 [facility] Comment on above: Performed By: #### Chanel ERICKSON CMP, 1988-02 #### [facility] ([id number]) [address] [place] [address] 82395 #### 73595-4 #### [facility] ([id number]) [address], [address] [place] [address] Calcium [Mass/Vol] 8.9 mg/dL Normal 8.5-10.5 [facility] Comment on above: Performed By: #### Chanel ERICKSON CMP, 1988-02 #### [facility] ([id number]) [address] [place] [address] 32100 #### 96225-0 #### [facility] ([id number]) [address], [address] [place] [address] Chloride [Moles/Vol] 98 mmol/L Normal 98-109 [facility] Comment on above: Performed By: #### C SEAN ERICKSON, 1988-02 #### [facility] ([id number]) [address] [place] [address] 68251 #### 00699-9 #### [facility] ([id number]) [address] [facility], [address] [place] [address] CO2 [Moles/Vol] 31 mmol/L Normal 22-32 [facility] Comment on above: Performed By: #### C SEAN ERICKSON, 1988-02 #### [facility] ([id number]) [address] [place] [address] 98445 #### 41045-6 #### [facility] ([id number]) [address] [facility], [address] [place] [address] Creatinine [Mass/Vol] 0.78 mg/dL Normal 0.40-1.00 [facility] Comment on above: Result Comment: METH OD TRACEABLE TO IDMS STANDARD Performed By: #### C SEAN ERICKSON, 1988-02 #### [facility] ([id number]) [address] [place] [address] 05167 #### 73600-5 #### [facility] ([id number]) [address], [address] [place] [address] GFR/1.73 sq M.predicted among non-blacks MDRD (S/P/Bld) [Vol rate/Area] 81 mL/min/{1.73_m2} Normal >59 [facility] Comment on above: Result Comment: Reported eGFR is based on the CKD-EPI 2020 equation that does not use a race coefficient. Performed By: #### C SEAN ERICKSON, 1988-02 #### [facility] ([id number]) [address] [place] [address] 78275 #### 60232-8 #### [facility] ([id number]) [address], [address] [place] [address] Glucose [Mass/Vol] 125 mg/dL High 65-99 [facility] Comment on above: Performed By: #### Chanel ERICKSON CMP, 1988-02 #### [facility] ([id number]) [address] [place] [address] 71778 #### 36223-0 #### [facility] ([id number]) [address] [facility], [address] [place] [address] Potassium [Moles/Vol] 3.5 mmol/L Normal 3.5-5.0 [facility] Comment on above: Performed By: #### Chanel ERICKSON CMP, 1988-02 #### [facility] ([id number]) [address] [place] [address] 57434 #### 21147-2 #### [facility] ([id number]) [address], [address] [place] [address] Protein [Mass/Vol] 7.7 g/dL Normal 6.0-8.0 [facility] Comment on above: Performed By: #### Chanel ERICKSON CMP, 1988-02 #### [facility] ([id number]) [address] [place] [address] 46338 #### 29628-6 #### [facility] ([id number]) [address], [address] [place] [address] Sodium [Moles/Vol] 139 mmol/L Normal 134-146 [facility] Comment on above: Performed By: #### Chanel ERICKSON CMP, 1988-02 #### [facility] ([id number]) [address] [place] [address] #### 31635-0 #### [facility] ([id number]) [address] [facility], [address] [place] [address] Urea nitrogen [Mass/Vol] 19 mg/dL Normal 5-27 [facility] Comment on above: Performed By: #### Chanel ERICKSON [facility], 1988-02 #### [facility] ([id number]) [address] [place] [address] 50757 #### 83072-6 #### [facility] ([id number]) [address] [facility], [address] [place] [address] CRP [Mass/Vol]on 12-25-2023 C REACTIVE PROTEIN 8.6 mg/dL High 0.000-0.744 [facility] Comment on above: Performed By: #### Chanel ERICKSON [facility], 1988-02 #### [facility] ([id number]) [address] [place] [address] 41475 #### 26244-4 #### [facility] ([id number]) [address] [facility], [address] [address] ESR Photometric method (Bld) [Velocity]on 12-25-2023 ESR, ERYTHROCYTE SEDIMENTATION RATE 85 mm/h High 0-30 [facility] Comment on above: Performed By: #### Chanel ERICKSON [facility], 1988-02 #### [facility] ([id number]) [address] [place] [address] 45784 #### 99891-3 #### [facility] ([id number]) [address] [facility], [address] [place] [address] Glucose Glucometer (BldC) [M ass/Vol]on 12-25-2023 Glucose [Mass/Vol] 171 mg/dL High 65-99 [facility] Glucose [Mass/Vol] 125 mg/dL High 65-99 [facility] Glucose [Mass/Vol] 154 mg/dL High 65-99 [facility] MAGNESIUMon 12-25-2023 Magnesium [Mass/Vol] 2.4 mg/dL Normal 1.8-2.6 [facility] Comment on above: Performed By: #### Chanel ERICKSON CMP, 1988-02 #### [facility] ([id number]) [address] [place] [address] 11108 #### 61161-5 #### [facility] ([id number]) [address] [facility], [address] [place] [address] POTASSIUMon 12-25-2023 Potassium [Moles/Vol] 4.2 mmol/L Normal 3.5-5.0 [facility] Comment on above: Performed By: #### Chanel ERICKSON [facility], 1988-02 #### [facility] ([id number]) [address] [place] [address] 93190 #### 91934-6 #### [facility] ([id number]) [address] [facility], [address] [place] [address] PROTIME AND INRon 12-25-2023 INR Coag (PPP) [Relative time] 2.6 {INR} High 0.8-1.1 [facility] Comment on above: Performed By: #### Chanel ERICKSON [facility], 1988-02 #### [facility] ([id number]) [address] [place] [address] 86565 #### 19854-3 #### [facility] ([id number]) [address] [facility], [address] [place] [address] PT Coag (PPP) [Time] 29.7 s High 9.8-13.2 [facility] Comment on above: Result Comment: NEW REFERENCE RANGE Performed By: #### Chanel ERICKSON CMP, 1988-02 #### [facility] ([id number]) [address] [place] [address] 91731 #### 20649-9 #### [facility] ([id number]) [address] [facility], [address] [place] [address] URIC ACIDon 12-25-2023 Urate [Mass/Vol] 8.9 mg/dL High 2.6-7.2 [facility] Comment on above: Performed By: #### C BCA, CMP, 1987- #### [facility] ([id number]) [address] [place] [address] 69584 #### 55205-2 #### [facility] ([id number]) [address] [facility], [address] [place] [address] XR CHEST 1 VWon 12-25-2023 XR CHEST [...] Wood MD on 12/25/2023 11:21 AM Normal [facility] XR FOOT RT 2 VWSon 4 [...] Araujo MD on 12/25/2023 2:59 PM Normal [facility] CBC AND AUTO DIFFon 12-24-19 ABSOLUTE BASOPHIL 0.1 X10E9/L Normal 0.0-0.2 [facility] Comment on above: Performed By: #### Chanel ERICKSON CMP, 1988-02 #### [facility] ([id number]) [address] [place] [address] 49708 #### 14267-3 #### [facility] ([id number]) [address] [facility], [address] [place] [address] ABSOLUTE NEUTROPHIL 10.2 X10E9/L High 1.5-6.6 [facility] Comment on above: Performed By: #### Chanel ERICKSON CMP, 1988-02 #### [facility] ([id number]) [address] [place] [address] 01060 #### 46271-1 #### [facility] ([id number]) [address] [facility], [address] [place] [address] Basophils/100 WBC (Bld) 0.5 % Normal [facility] Comment on above: Performed By: #### Chanel ERICKSON CMP, 1988-02 #### [facility] ([id number]) [address] [place] [address] 89788 #### 83721-9 #### [facility] ([id number]) [address] [facility], [address] [place] [address] Eosinophils (Bld) [#/Vol] 0.9 10*3/uL High 0.0-0.4 [facility] Comment on above: Performed By: #### Chanel ERICKSON CMP, 1988-02 #### [facility] ([id number]) [address] [place] [address] 65673 #### 40051-0 #### [facility] ([id number]) [address], [address] [place] [address] Eosinophils/100 WBC (Bld) 6.2 % Normal [facility] Comment on above: Performed By: #### Chanel ERICKSON CMP, 1988-02 #### [facility] ([id number]) [address] [place] [address] 20945 #### 75572-0 #### [facility] ([id number]) [address], [address] [place] [address] Erythrocyte distribution width (RBC) [Ratio] 14.1 % Normal 11.5-15.0 [facility] Comment on above: Performed By: #### Chanel ERICKSON CMP, 1988-02 #### [facility] ([id number]) [address] [place] [address] 92425 #### 53568-4 #### [facility] ([id number]) [address], [address] [place] [address] Hematocrit (Bld) [Volume fraction] 37.3 % Normal 35-47 [facility] Comment on above: Performed By: #### Chaenl ERICKSON CMP, 1988-02 #### [facility] ([id number]) [address] [place] [address] 04016 #### 10951-2 #### [facility] ([id number]) [address], [address] [place] [address] Hemoglobin (Bld) [Mass/Vol] 12.4 g/dL Normal 11.7-15.5 [facility] Comment on above: Performed By: #### Chanel ERICKSON CMP, 1988-02 #### [facility] ([id number]) [address] [place] [address] 65085 #### 62455-2 #### [facility] ([id number]) [address], [address] [place] [address] Lymphocytes (Bld) [#/Vol] 2.2 10*3/uL Normal 1.0-3.5 [facility] Comment on above: Performed By: #### Chanel ERICKSON CMP, 1988-02 #### [facility] ([id number]) [address] [place] [address] 42841 #### 10014-2 #### [facility] ([id number]) [address], [address] [place] [address] Lymphocytes/100 WBC (Bld) 15.4 % Normal [facility] Comment on above: Performed By: #### Chanel ERICKSON CMP, 1988-02 #### [facility] ([id number]) [address] [place] [address] 34616 #### 98429-3 #### [facility] ([id number]) [address], [address] [place] [address] MCH (RBC) [Entitic mass] 29.0 pg Normal 27-34 [facility] Comment on above: Performed By: #### Chanel ERICKSON CMP, 1988-02 #### [facility] ([id number]) [address] [place] [address] 06497 #### 68830-0 #### [facility] ([id number]) [address], [address] [place] [address] MCHC (RBC) [Mass/Vol] 33.3 g/dL Normal 32-36 [facility] Comment on above: Performed By: #### Chanel ERICKSON CMP, 1988-02 #### [facility] ([id number]) [address] [place] [address] 46741 #### 34847-4 #### [facility] ([id number]) [address], [address] [place] [address] MCV (RBC) [Entitic vol] 87 fL Normal 80-100 [facility] Comment on above: Performed By: #### Chanel ERICKSON CMP, 1988-02 #### [facility] ([id number]) [address] [place] [address] 17247 #### 24555-7 #### [facility] ([id number]) [address] [place] [address] Monocytes (Bld) [#/Vol] 0.7 10*3/uL Normal 0-0.9 [facility] Comment on above: Performed By: #### Chanel ERICKSON, CMP, 1988-02 #### [facility] ([id number]) [address] [place] [address] 54211 #### 11719-5 #### [facility] ([id number]) [address] [place] [address] Monocytes/100 WBC (Bld) 5.3 % Normal [facility] Comment on above: Performed By: #### Chanel ERICKSON CMP, 1988-02 #### [facility] ([id number]) [address] [place] [address] 69458 #### 95045-7 #### [facility] ([id number]) [address] [place] [address] Neutrophils/100 WBC (Bld) 72.6 % Normal [facility] Comment on above: Performed By: #### Chanel ERICKSON, CMP, 1988-02 #### [facility] ([id number]) [address] [place] [address] 05750 #### 49211-8 #### [facility] ([id number]) [address] [place] [address] Platelet mean volume (Bld) [Entitic vol] 8.6 fL Normal 7-12 [facility] Comment on above: Performed By: #### Chanel ERICKSON CMP, 1988-02 #### [facility] ([id number]) [address] [place] [address] 96598 #### 05821-6 #### [facility] ([id number]) [address] [facility], [address] [place] [address] Platelets (Bld) [#/Vol] 339 10*3/uL Normal 150-450 [facility] Comment on above: Performed By: #### C DRE, CMP, 1988-02 #### [facility] ([id number]) [address] [place] [address] 82985 #### 10505-4 #### [facility] ([id number]) [address] [facility], [address] [place] [address] RBC COUNT 4.29 X10E12/L Normal 3.80-5.20 [facility] Comment on above: Performed By: #### C SEAN ERICKSON, 1988-02 #### [facility] ([id number]) [address] [place] [address] 91771 #### 12205-3 #### [facility] ([id number]) [address] [place] [address], [address] [place] [address] WBC (Bld) [#/Vol] 14.1 10*3/uL High 4.0-11.0 [facility] Comment on above: Performed By: #### C DRE, CMP, 1988-02 #### [facility] ([id number]) [address] [place] [address] 09274 #### 23032-0 #### [facility] ([id number]) [address] [facility], [address] [place] [address] COMPREHENSIVE METABOLIC PANE Tyrone 12-24-2023 Albumin [Mass/Vol] 3.4 g/dL Normal 3.2-5.3 [facility] Comment on above: Performed By: #### C BCA, CMP, 1988-02 #### [facility] ([id number]) [address] [place] [address] 72160 #### 69234-4 #### [facility] ([id number]) [address] [place] [address] ALP [Catalytic activity/Vol] 67 U/L Normal 39-130 [facility] Comment on above: Performed By: #### Chanel BCA, CMP, 1988-02 #### [facility] ([id number]) [address] [place] [address] 26061 #### 70985-7 #### [facility] ([id number]) [address] [place] [address] ALT [Catalytic activity/Vol] 13 U/L Normal 0-31 [facility] Comment on above: Performed By: #### Chanel BCA, [facility], 1988-02 #### [facility] ([id number]) [address] [place] [address] 15359 #### 94915-3 #### [facility] ([id number]) [address] [place] [address] Anion gap [Moles/Vol] 11 mmol/L Normal 5-15 [facility] Comment on above: Performed By: #### Chanel BCA, CMP, 1988-02 #### [facility] ([id number]) [address] [place] [address] 70125 #### 20700-2 #### [facility] ([id number]) [address] [place] [address] AST [Catalytic activity/Vol] 16 U/L Normal 0-41 [facility] Comment on above: Performed By: #### Chanel BCA, CMP, 1988-02 #### [facility] ([id number]) [address] [place] [address] #### 01272-7 #### [facility] ([id number]) [address], [address] [place] [address] Bilirubin [Mass/Vol] 0.4 mg/dL Normal 0.3-1.2 [facility] Comment on above: Performed By: #### Chanel ERICKSON CMP, 1988-02 #### [facility] ([id number]) [address] [place] [address] 10730 #### 39689-0 #### [facility] ([id number]) [address] [place] [address] Calcium [Mass/Vol] 8.9 mg/dL Normal 8.5-10.5 [facility] Comment on above: Performed By: #### Chanel ERICKSON CMP, 1988-02 #### [facility] ([id number]) [address] [place] [address] 94674 #### 40522-7 #### [facility] ([id number]) [address] [place] [address] Chloride [Moles/Vol] 99 mmol/L Normal 98-109 [facility] Comment on above: Performed By: #### Chanel ERICKSON CMP, 1988-02 #### [facility] ([id number]) [address] [place] [address] 82546 #### 99465-4 #### [facility] ([id number]) [address] [place] [address] CO2 [Moles/Vol] 30 mmol/L Normal 22-32 [facility] Comment on above: Performed By: #### Chanel BCA, CMP, 1986-02 #### [facility] ([id number]) [address] [place] [address] #### [id number] #### [facility] ([id number]) [address], [address] [place] [address] Creatinine [Mass/Vol] 0.83 mg/dL Normal 0.40-1.00 [facility] Comment on above: Result Comment: METH OD TRACEABLE TO IDMS STANDARD Performed By: #### C DRE [facility], 1988-02 #### [facility] ([id number]) [address] [place] [address] #### [id number] #### [facility] ([id number]) [address] [place] [address] GFR/1.73 sq M.predicted among non-blacks MDRD (S/P/Bld) [Vol rate/Area] 75 mL/min/{1.73_m2} Normal >59 [facility] Comment on above: Result Comment: Reported eGFR is based on the CKD-EPI 2020 equation that does not use a race coefficient. Performed By: #### C DRE [facility], 1988-02 #### [facility] ([id number]) [address] [place] [address] #### [id number] #### [facility] ([id number]) [address] [place] [address] Glucose [Mass/Vol] 137 mg/dL High 65-99 [facility] Comment on above: Performed By: #### C [facility]RE [facility], 1988-02 #### [facility] ([id number]) [address] [place] [address] #### [id number] #### [facility] ([id number]) [address] [place] [address] Potassium [Moles/Vol] 3.8 mmol/L Normal 3.5-5.0 [facility] Comment on above: Performed By: #### Chanel ERICKSON [facility], 1986-02 #### [facility] ([id number]) [address] [place] [address] #### [id number] #### [facility] ([id number]) [address] [facility] [place] [address] Protein [Mass/Vol] 7.9 g/dL Normal 6.0-8.0 [facility] Comment on above: Performed By: #### Chanel ERICKSON CMP, 1986-02 #### [facility] ([id number]) [address] [place] [address] #### [id number] #### [facility] ([id number]) [address] [facility] [place] [address] Sodium [Moles/Vol] 140 mmol/L Normal 134-146 [facility] Comment on above: Performed By: #### Chanel ERICKSON CMP, 1986-02 #### [facility] ([id number]) [address] [place] [address] #### [id number] #### [facility] ([id number]) [address] [facility] [place] [address] Urea nitrogen [Mass/Vol] 18 mg/dL Normal 5-27 [facility] Comment on above: Performed By: #### Chanel ERICKSON CMP, 1988-02 #### [facility] [facility] ([id number]) [address] [place] [address] 33294 #### [id number] #### [facility] ([id number]) [address] [facility], [address] [place] [address] Glucose Glucometer (BldC) [M ass/Vol]on 12-24-2023 Glucose [Mass/Vol] 136 mg/dL High 65-99 [facility] Glucose [Mass/Vol] 123 mg/dL High 65-99 [facility] Glucose [Mass/Vol] 152 mg/dL High 65-99 [facility] MAGNESIUMon 12-24-2023 Magnesium [Mass/Vol] 2.2 mg/dL Normal 1.8-2.6 [facility] Comment on above: Performed By: #### Chanel ERICKSON [facility], 1988-02 #### [facility] ([id number]) [address] [place] [address] 30759 #### [id number] #### [facility] ([id number]) [address] [place] [address], [address] [place] [address] POTASSIUMon 12-24-2023 Potassium [Moles/Vol] 4.0 mmol/L Normal 3.5-5.0 [facility] Comment on above: Performed By: #### Chanel ERICKSON [facility], 1988-02 #### [facility] ([id number]) [address] [place] [address] 56557 #### [id number] #### [facility] ([id number]) [facility], [address] [place] [address] PROTIME AND INRon 12-24-2023 INR Coag (PPP) [Relative time] 2.8 {INR} High 0.8-1.1 [facility] Comment on above: Performed By: #### Chanel ERICKSON [facility], 1988-02 #### [facility] ([id number]) [address] [place] [address] 20942 #### [id number] #### [facility] ([id number]) [facility], [address] [place] [address] PT Coag (PPP) [Time] 30.9 s High 9.8-13.2 [facility] Comment on above: Result Comment: NEW REFERENCE RANGE Performed By: #### Chanel ERICKSON CMP, 1986-02 #### [facility] ([id number]) [address] [place] [address] 06105 #### [id number] #### [facility] ([id number]) [address] [facility], [address] [place] [address] Vancomycin trough [Mass/Vol] on 12-24-2023 VANCOMYCIN TROUGH 11.4 ug/mL Normal 5.0-20.0 [facility] Comment on above: Performed By: #### C DRE, CMP, 1988-02 #### [facility] ([id number]) [address] [place] [address] 60725 #### [id number] #### [facility] ([id number]) [address] [facility], [address] [place] [address] CBC AND AUTO DIFFon 12-23-19 24 ABSOLUTE BASOPHIL 0.1 X10E9/L Normal 0.0-0.2 [facility] Comment on above: Performed By: #### C BCA, PINR, CMP, ####[facility] ([id number])[address] [place] [address] 74[address] ABSOLUTE NEUTROPHIL 10.1 X10E9/L High 1.5-6.6 [facility] Comment on above: Performed By: #### C BCA, PINR, CMP, ####[facility] ([id number])[address] [place] [address] 39820 Basophils/100 WBC (Bld) 1.0 % Normal [facility] Comment on above: Performed By: #### C BCA, PINR, CMP, ####[facility] ([id number])[address] [place] [address] 25282 Eosinophils (Bld) [#/Vol] 0.8 10*3/uL High 0.0-0.4 [facility] Comment on above: Performed By: #### C BCA, PINR, CMP, ####[facility] ([id number])[address] [place] [address] Eosinophils/100 WBC (Bld) 5.8 % Normal [facility] Comment on above: Performed By: #### C BCA, PINR, CMP, ####[facility] ([id number])[address] [place] [address] 04541 Erythrocyte distribution width (RBC) [Ratio] 13.8 % Normal 11.5-15.0 [facility] Comment on above: Performed By: #### C BCA, PINR, CMP, ####[facility] ([id number])[address] [place] [address] 45514 Hematocrit (Bld) [Volume fraction] 36.1 % Normal 35-47 [facility] Comment on above: Performed By: #### C BCA, PINR, CMP, ####[facility] ([id number])[address] [place] [address] 64288 Hemoglobin (Bld) [Mass/Vol] 12.1 g/dL Normal 11.7-15.5 [facility] Comment on above: Performed By: #### C BCA, PINR, CMP, ####[facility] ([id number])[address] [place] [address] 77783 Lymphocytes (Bld) [#/Vol] 2.4 10*3/uL Normal 1.0-3.5 [facility] Comment on above: Performed By: #### C BCA, PINR, CMP, ####[facility] ([id number])[address] [place] [address] 83095 Lymphocytes/100 WBC (Bld) 16.6 % Normal [facility] Comment on above: Performed By: #### C BCA, PINR, CMP, ####[facility] ([id number])[address] [place] [address] 97510 MCH (RBC) [Entitic mass] 29.0 pg Normal 27-34 [facility] Comment on above: Performed By: #### C DRE PINR, CMP, ####[facility] ([id number])[address] [place] [address] 16439 MCHC (RBC) [Mass/Vol] 33.6 g/dL Normal 32-36 [facility] Comment on above: Performed By: #### C DRE, PINR, CMP, ####[facility] ([id number])[address] [place] [address] 30372 MCV (RBC) [Entitic vol] 86 fL Normal 80-100 [facility] Comment on above: Performed By: #### Chanel ERICKSON, PINR, CMP, ####[facility] ([id number])[address] [place] [address] 95454 Monocytes (Bld) [#/Vol] 1.1 10*3/uL High 0-0.9 [facility] Comment on above: Performed By: #### Chanel ERICKSON, PINR, CMP, ####[facility] ([id number])[address] [place] [address] 30194 Monocytes/100 WBC (Bld) 7.3 % Normal [facility] Comment on above: Performed By: #### Chanel ERICKSON, PINR, CMP, ####[facility] ([id number])[address] [place] [address] 62906 Neutrophils/100 WBC (Bld) 69.3 % Normal [facility] Comment on above: Performed By: #### Chanel ERICKSON, PINR, CMP, ####[facility] ([id number])[address] [place] [address] 33761 Platelet mean volume (Bld) [Entitic vol] 8.5 fL Normal 7-12 [facility] Comment on above: Performed By: #### C BCA, PINR, CMP, [id number] ####[facility] ([id number])[address] [place] [address] 73954 Platelets (Bld) [#/Vol] 286 10*3/uL Normal 150-450 [facility] Comment on above: Performed By: #### C BCA, PINR, CMP, ####[facility] ([id number])[address] [place] [address] 30503 RBC COUNT 4.19 X10E12/L Normal 3.80-5.20 [facility] Comment on above: Performed By: #### C BCA, PINR, CMP, ####[facility] ([id number])[address] [place] [address] 24213 WBC (Bld) [#/Vol] 14.6 10*3/uL High 4.0-11.0 [facility] Comment on above: Performed By: #### C BCA, PINR, CMP, ####[facility] ([id number])[address] [place] [address] 73590 COMPREHENSIVE METABOLIC PANE [place] 12-23-2023 Albumin [Mass/Vol] 3.1 g/dL Low 3.2-5.3 [facility] Comment on above: Performed By: #### Chanel BCA, CMP, 1986-02 #### [facility] ([id number]) [address] [place] [address] 41773 #### [id number] #### [facility] ([id number]) [address] [place] [address], [address] [place] [address] ALP [Catalytic activity/Vol] 60 U/L Normal 39-130 [facility] Comment on above: Performed By: #### Chanel BCA, CMP, 1986-02 #### [facility] ([id number]) [address] [place] [address] 72454 #### 38347-6 #### [facility] ([id number]) [address] [facility], [address] [place] [address] ALT [Catalytic activity/Vol] 12 U/L Normal 0-31 [facility] Comment on above: Performed By: #### Chanel ERICKSON CMP, 1986-02 #### [facility] ([id number]) [address] [place] [address] 82364 #### 09481-8 #### [facility] ([id number]) [address] [facility], [address] [place] [address] Anion gap [Moles/Vol] 9 mmol/L Normal 5-15 [facility] Comment on above: Performed By: #### Chanel ERICKSON CMP, 1986-02 #### [facility] ([id number]) [address] [place] [address] 45212 #### 94869-6 #### [facility] ([id number]) [address] [facility], [address] [place] [address] AST [Catalytic activity/Vol] 14 U/L Normal 0-41 [facility] Comment on above: Performed By: #### Chanel ERICKSON CMP, 1986-02 #### [facility] ([id number]) [address] [place] [address] 99242 #### 08452-3 #### [facility] ([id number]) [address] [facility], [address] [place] [address] Bilirubin [Mass/Vol] 0.6 mg/dL Normal 0.3-1.2 [facility] Comment on above: Performed By: #### Chanel ERICKSON CMP, 1986-02 #### [facility] ([id number]) [address] [place] [address] 10486 #### 94025-7 #### [facility] ([id number]) [address], [address] [place] [address] Calcium [Mass/Vol] 8.5 mg/dL Normal 8.5-10.5 [facility] Comment on above: Performed By: #### C DRE, CMP, 1988-02 #### [facility] ([id number]) [address] [place] [address] 03849 #### 57939-1 #### [facility] ([id number]) [address], [address] [place] [address] Chloride [Moles/Vol] 99 mmol/L Normal 98-109 [facility] Comment on above: Performed By: #### C DRE CMP, 1988-02 #### [facility] ([id number]) [address] [place] [address] 81097 #### 00783-2 #### [facility] ([id number]) [address], [address] [place] [address] CO2 [Moles/Vol] 28 mmol/L Normal 22-32 [facility] Comment on above: Performed By: #### C DRE, CMP, 1988-02 #### [facility] ([id number]) [address] [place] [address] 19333 #### 86993-7 #### [facility] ([id number]) [address], [address] [place] [address] Creatinine [Mass/Vol] 0.75 mg/dL Normal 0.40-1.00 [facility] Comment on above: Result Comment: METH OD TRACEABLE TO IDMS STANDARD Performed By: #### C BCA, CMP, 1988-02 #### [facility] ([id number]) [address] [place] [address] 64122 #### 48149-2 #### [facility] ([id number]) [address], [address] [place] [address] GFR/1.73 sq M.predicted among non-blacks MDRD (S/P/Bld) [Vol rate/Area] 85 mL/min/{1.73_m2} Normal >59 [facility] Comment on above: Result Comment: Reported eGFR is based on the CKD-EPI 2020 equation that does not use a race coefficient. Performed By: #### Chanel ERICKSON CMP, 1988-02 #### [facility] ([id number]) [address] [place] [address] 70432 #### 47842-4 #### [facility] ([id number]) [address], [address] [place] [address] Glucose [Mass/Vol] 122 mg/dL High 65-99 [facility] Comment on above: Performed By: #### Chanel ERICKSON CMP, 1988-02 #### [facility] ([id number]) [address] [place] [address] 08546 #### 64133-4 #### [facility] ([id number]) [address], [address] [place] [address] Potassium [Moles/Vol] 3.5 mmol/L Normal 3.5-5.0 [facility] Comment on above: Performed By: #### Chanel ERICKSON CMP, 1986-02 #### [facility] ([id number]) [address] [place] [address] 89612 #### 20553-1 #### [facility] ([id number]) [address], [address] [place] [address] Protein [Mass/Vol] 7.3 g/dL Normal 6.0-8.0 [facility] Comment on above: Performed By: #### Chanel ERICKSON CMP, 1986-02 #### [facility] ([id number]) [address] [place] [address] 56372 #### 86879-4 #### [facility] ([id number]) [address], [address] [place] [address] Sodium [Moles/Vol] 136 mmol/L Normal 134-146 [facility] Comment on above: Performed By: #### Chanel ERICKOSN CMP, 1988-02 #### [facility] ([id number]) [address] [place] [address] 37449 #### 43749-0 #### [facility] ([id number]) [address], [address] [place] [address] Urea nitrogen [Mass/Vol] 15 mg/dL Normal 5-27 [facility] Comment on above: Performed By: #### Chanel ERICKSON CMP, 1988-02 #### [facility] ([id number]) [address] [place] [address] 47165 #### 04970-6 #### [facility] ([id number]) [address], [address] [place] [address] Glucose Glucometer (BldC) [M ass/Vol]on 12-23-2023 Glucose [Mass/Vol] 158 mg/dL High 65-99 [facility] Glucose [Mass/Vol] 141 mg/dL High 65-99 [facility] HGB A1C (GLYCO-HGB)on 2023 Glucose [Mass/Vol] 140 mg/dL Normal [facility] Comment on above: Performed By: #### Chanel ERICKSON CMP, 1988-02 #### [facility] ([id number]) [address] [place] [address] 40590 #### 08746-8 #### [facility] ([id number]) [address], [address] [place] [address] HbA1c (Bld) [Mass fraction] 6.5 % High 4.4-5.6 [facility] Comment on above: Result Comment: NOTE ADA Guidelines Result HgbA1c Normal : less than 5.7 % Prediabetes : 5.7 % to 6.4 % Diabetes : > 6.4 % Use with caution in patients with abnormal hemoglobin variants as the half-life of red blood cells and in vivo glycation rates are affected. Performed By: #### C DRE [facility], 1988-02 #### [facility] ([id number]) [address] [place] [address] 13101 #### 89950-0 #### [facility] ([id number]) [address] [facility], [address] [place] [address] MAGNESIUMon 12-23-2023 Magnesium [Mass/Vol] 2.0 mg/dL Normal 1.8-2.6 [facility] Comment on above: Performed By: #### Chanel ERICKSON [facility], 1988-02 #### [facility] ([id number]) [address] [place] [address] 69501 #### 65722-9 #### [facility] ([id number]) [address] [facility], [address] [place] [address] POTASSIUMon 12-23-2023 Potassium [Moles/Vol] 4.4 mmol/L Normal 3.5-5.0 [facility] Comment on above: Performed By: #### Chanel ERICKSON [facility], 1988-02 #### [facility] ([id number]) [address] [place] [address] 21614 #### [id number] #### [facility] ([id number]) [address] [facility], [address] [place] [address] PROTIME AND INRon 12-23-2023 INR Coag (PPP) [Relative time] 2.7 {INR} High 0.8-1.1 [facility] Comment on above: Performed By: #### C BCA, PINR, CMP, ####[facility] ([id number])[address] [place] [address] 55997 PT Coag (PPP) [Time] 29.9 s High 9.8-13.2 [facility] Comment on above: Result Comment: NEW REFERENCE RANGE Performed By: #### C BCA, PINR, CMP, ####[facility] ([id number])[address] [place] [address] 00263 CBC AND AUTO DIFFon 12-22-19 24 ABSOLUTE BASOPHIL 0.2 X10E9/L Normal 0.0-0.2 [facility] Comment on above: Performed By: #### P INR, CMP, , CBCA ####[facility] ([id number])[address] [place] [address] 34152 ABSOLUTE NEUTROPHIL 10.5 X10E9/L High 1.5-6.6 [facility] Comment on above: Performed By: #### P INR, CMP, , CBCA ####[facility] ([id number])[address] [place] [address] 41404 Basophils/100 WBC (Bld) 1.0 % Normal [facility] Comment on above: Performed By: #### P INR, CMP, , CBCA ####[facility] ([id number])[address] [place] [address] 01878 Eosinophils (Bld) [#/Vol] 1.1 10*3/uL High 0.0-0.4 [facility] Comment on above: Performed By: #### P INR, CMP, , CBCA ####[facility] ([id number])[address] [place] [address] 21896 Eosinophils/100 WBC (Bld) 6.9 % Normal [facility] Comment on above: Performed By: #### P INR, CMP, , CBCA ####[facility] ([id number])[address] [place] [address] 73944 Erythrocyte distribution width (RBC) [Ratio] 13.7 % Normal 11.5-15.0 [facility] Comment on above: Performed By: #### P INR, CMP, , CBCA ####[facility] ([id number])[address] [place] [address] 39943 Hematocrit (Bld) [Volume fraction] 34.0 % Low 35-47 [facility] Comment on above: Performed By: #### P INR, CMP, , CBCA ####[facility] ([id number])[address] [place] [address] 18547 Hemoglobin (Bld) [Mass/Vol] 11.4 g/dL Low 11.7-15.5 [facility] Comment on above: Performed By: #### P INR, CMP, , CBCA ####[facility] ([id number])[address] [place] [address] 79828 Lymphocytes (Bld) [#/Vol] 3.5 10*3/uL Normal 1.0-3.5 [facility] Comment on above: Performed By: #### P INR, CMP, , CBCA ####[facility] ([id number])[address] [place] [address] 07901 Lymphocytes/100 WBC (Bld) 21.4 % Normal [facility] Comment on above: Performed By: #### P INR, CMP, , CBCA ####[facility] ([id number])[address] [place] [address] 71472 MCH (RBC) [Entitic mass] 29.1 pg Normal 27-34 [facility] Comment on above: Performed By: #### P INR, CMP, , CBCA ####[facility] ([id number])[address] [place] [address] 21392 MCHC (RBC) [Mass/Vol] 33.6 g/dL Normal 32-36 [facility] Comment on above: Performed By: #### P INR, CMP, , CBCA ####[facility] ([id number])[address] [place] [address] 71890 MCV (RBC) [Entitic vol] 87 fL Normal 80-100 [facility] Comment on above: Performed By: #### P INR, CMP, , CBCA ####[facility] ([id number])[address] [place] [address] 92865 Monocytes (Bld) [#/Vol] 0.9 10*3/uL Normal 0-0.9 [facility] Comment on above: Performed By: #### P INR, CMP, , CBCA ####[facility] ([id number])[address] [place] [address] 31097 Monocytes/100 WBC (Bld) 5.8 % Normal [facility] Comment on above: Performed By: #### P INR, CMP, , CBCA ####[facility] ([id number])[address] [place] [address] 59301 Neutrophils/100 WBC (Bld) 64.9 % Normal [facility] Comment on above: Performed By: #### P INR, CMP, , CBCA ####[facility] ([id number])[address] [place] [address] 82618 Platelet mean volume (Bld) [Entitic vol] 8.8 fL Normal 7-12 [facility] Comment on above: Performed By: #### P INR, CMP, , CBCA ####[facility] ([id number])[address] [place] [address] 60183 Platelets (Bld) [#/Vol] 258 10*3/uL Normal 150-450 [facility] Comment on above: Performed By: #### P INR, CMP, , CBCA ####[facility] ([id number])[address] [place] [address] 90634 RBC COUNT 3.92 X10E12/L Normal 3.80-5.20 [facility] Comment on above: Performed By: #### P INR, CMP, , CBCA ####[facility] ([id number])[address] [place] [address] 95329 WBC (Bld) [#/Vol] 16.2 10*3/uL High 4.0-11.0 [facility] Comment on above: Performed By: #### P INR, CMP, , CBCA ####[facility] ([id number])[address] [place] [address] 75892 COMPREHENSIVE METABOLIC PANE [place] 12-22-2023 Albumin [Mass/Vol] 3.4 g/dL Normal 3.2-5.3 [facility] Comment on above: Performed By: #### P INR, CMP, , CBCA ####[facility] ([id number])[address] [place] [address] 85998 ALP [Catalytic activity/Vol] 59 U/L Normal 39-130 [facility] Comment on above: Performed By: #### P INR, CMP, , CBCA ####[facility] ([id number])[address] [place] [address] 20352 ALT [Catalytic activity/Vol] 11 U/L Normal 0-31 [facility] Comment on above: Performed By: #### P INR, CMP, , CBCA ####[facility] ([id number])[address] [place] [address] 20751 Anion gap [Moles/Vol] 11 mmol/L Normal 5-15 [facility] Comment on above: Performed By: #### P INR, CMP, , CBCA ####[facility] ([id number])[address] [place] [address] 07313 AST [Catalytic activity/Vol] 14 U/L Normal 0-41 [facility] Comment on above: Performed By: #### P INR, CMP, , CBCA ####[facility] ([id number])[address] [place] [address] 31605 Bilirubin [Mass/Vol] 0.8 mg/dL Normal 0.3-1.2 [facility] Comment on above: Performed By: #### P INR, CMP, , CBCA ####[facility] ([id number])[address] [place] [address] 50011 Calcium [Mass/Vol] 8.5 mg/dL Normal 8.5-10.5 [facility] Comment on above: Performed By: #### P INR, CMP, , CBCA ####[facility] ([id number])[address] [place] [address] 51684 Chloride [Moles/Vol] 98 mmol/L Normal 98-109 [facility] Comment on above: Performed By: #### P INR, CMP, , CBCA ####[facility] ([id number])[address] [place] [address] 58903 CO2 [Moles/Vol] 26 mmol/L Normal 22-32 [facility] Comment on above: Performed By: #### P INR, CMP, , CBCA ####[facility] ([id number])[address] [place] [address] [id number] Creatinine [Mass/Vol] 0.78 mg/dL Normal 0.40-1.00 [facility] Comment on above: Result Comment: METH OD TRACEABLE TO IDMS STANDARD Performed By: #### P INR, CMP, , CBCA ####[facility] ([id number])[address] [place] [address] 12529 GFR/1.73 sq M.predicted among non-blacks MDRD (S/P/Bld) [Vol rate/Area] 81 mL/min/{1.73_m2} Normal >59 [facility] Comment on above: Result Comment: Reported eGFR is based on the CKD-EPI 2020 equation that does not use a race coefficient. Performed By: #### P INR, CMP, , CBCA ####[facility] ([id number])[address] [place] [address] [phone] Glucose [Mass/Vol] 121 mg/dL High 65-99 [facility] Comment on above: Performed By: #### P INR, CMP, , CBCA ####[facility] ([id number])[address] [place] [address] 07855 Potassium [Moles/Vol] 3.5 mmol/L Normal 3.5-5.0 [facility] Comment on above: Performed By: #### P INR, CMP, , CBCA ####[facility] ([id number])[address] [place] [address] 23200 Protein [Mass/Vol] 7.2 g/dL Normal 6.0-8.0 [facility] Comment on above: Performed By: #### P INR, CMP, , CBCA ####[facility] ([id number])[address], [place] [address] Sodium [Moles/Vol] 135 mmol/L Normal 134-146 [facility] Comment on above: Performed By: #### P INR, CMP, , CBCA ####[facility] ([id number])[address] [place] [address] 38798 Urea nitrogen [Mass/Vol] 15 mg/dL Normal 5-27 [facility] Comment on above: Performed By: #### P INR, CMP, , CBCA ####[facility] ([id number])[address] [place] [address] 94282 Glucose Glucometer (BldC) [M ass/Vol]on 12-22-2023 Glucose [Mass/Vol] 147 mg/dL High 65-99 [facility] Glucose [Mass/Vol] 136 mg/dL High 65-99 [facility] Glucose [Mass/Vol] 120 mg/dL High 65-99 [facility] MAGNESIUMon 12-22-2023 Magnesium [Mass/Vol] 2.0 mg/dL Normal 1.8-2.6 [facility] Comment on above: Performed By: #### P INR, CMP, , CBCA ####[facility] ([id number])[address] [place] [address] 65681 PROTIME AND INRon 12-22-2023 INR Coag (PPP) [Relative time] 2.6 {INR} High 0.8-1.1 [facility] Comment on above: Performed By: #### P INR, CMP, , CBCA ####[facility] ([id number])[address] [place] [address] 35198 PT Coag (PPP) [Time] 29.0 s High 9.8-13.2 [facility] Comment on above: Result Comment: NEW REFERENCE RANGE Performed By: #### P INR, CMP, , CBCA ####[facility] ([id number])[address] [place] [address] 78372 Vancomycin trough [Mass/Vol] on 12-22-2023 VANCOMYCIN TROUGH 15.2 ug/mL Normal 5.0-20.0 [facility] Comment on above: Performed By: #### 4 092-3 ####[facility] ([id number])[address] [place] [address] 35921 CBC AND AUTO DIFFon 12-21-19 ABSOLUTE BASOPHIL 0.1 X10E9/L Normal 0.0-0.2 [facility] Comment on above: Performed By: #### Chanel ERICKSON [facility], #### [facility] ([id number]) [address] [place] [address] 70512 ABSOLUTE NEUTROPHIL 11.5 X10E9/L High 1.5-6.6 [facility] Comment on above: Performed By: #### Chanel ERICKSON [facility], #### [facility] ([id number]) [address] [place] [address] 79741 Basophils/100 WBC (Bld) 0.8 % Normal [facility] Comment on above: Performed By: #### Chanel ERICKSON, [facility], #### [facility] ([id number]) [address] [place] [address] 55165 Eosinophils (Bld) [#/Vol] 0.3 10*3/uL Normal 0.0-0.4 [facility] Comment on above: Performed By: #### Chanel ERICKSON, [facility], #### [facility] ([id number]) [address] [place] [address] 06359 Eosinophils/100 WBC (Bld) 2.2 % Normal [facility] Comment on above: Performed By: #### Chanel ERICKSON, CMP, #### [facility] ([id number]) [address] [place] [address] 98084 Erythrocyte distribution width (RBC) [Ratio] 14.0 % Normal 11.5-15.0 [facility] Comment on above: Performed By: #### Chanel ERICKSON [facility], 79590-6 #### [facility] ([id number]) [address] [place] [address] 39764 Hematocrit (Bld) [Volume fraction] 34.8 % Low 35-47 [facility] Comment on above: Performed By: #### Chanel ERICKSON [facility], #### [facility] ([id number]) [address] [place] [address] 66308 Hemoglobin (Bld) [Mass/Vol] 11.4 g/dL Low 11.7-15.5 [facility] Comment on above: Performed By: #### Chanel ERICKSON [facility], #### [facility] ([id number]) [address] [place] [address] 93532 Lymphocytes (Bld) [#/Vol] 2.0 10*3/uL Normal 1.0-3.5 [facility] Comment on above: Performed By: #### Chanel ERICKSON [facility], 75009-1 #### [facility] ([id number]) [address] [place] [address] 84678 Lymphocytes/100 WBC (Bld) 13.2 % Normal [facility] Comment on above: Performed By: #### Chanel ERICKSON [facility], 07042-1 #### [facility] ([id number]) [address] [place] [address] 89039 MCH (RBC) [Entitic mass] 28.5 pg Normal 27-34 [facility] Comment on above: Performed By: #### Chanel ERICKSON [facility], 34829-4 #### [facility] ([id number]) [address] [place] [address] 46970 MCHC (RBC) [Mass/Vol] 32.6 g/dL Normal 32-36 [facility] Comment on above: Performed By: #### C DRE, CMP, 57661-0 #### [facility] ([id number]) [address] [place] [address] 30688 MCV (RBC) [Entitic vol] 87 fL Normal 80-100 [facility] Comment on above: Performed By: #### C DRE, CMP, #### [facility] ([id number]) [address] [place] [address] 74381 Monocytes (Bld) [#/Vol] 1.3 10*3/uL High 0-0.9 [facility] Comment on above: Performed By: #### Chanel ERICKSON, CMP, #### [facility] ([id number]) [address] [place] [address] 43017 Monocytes/100 WBC (Bld) 8.7 % Normal [facility] Comment on above: Performed By: #### Chanel ERICKSON, CMP, #### [facility] ([id number]) [address] [place] [address] 88774 Neutrophils/100 WBC (Bld) 75.1 % Normal [facility] Comment on above: Performed By: #### Chanel ERICKSON, CMP, #### [facility] ([id number]) [address] [place] [address] 75020 Platelet mean volume (Bld) [Entitic vol] 8.8 fL Normal 7-12 [facility] Comment on above: Performed By: #### Chanel EIRCKSON, CMP, #### [facility] ([id number]) [address] [place] [address] 99861 Platelets (Bld) [#/Vol] 257 10*3/uL Normal 150-450 [facility] Comment on above: Performed By: #### Chanel BCA, CMP, #### [facility] ([id number]) [address] [place] [address] 20643 RBC COUNT 3.98 X10E12/L Normal 3.80-5.20 [facility] Comment on above: Performed By: #### C BCA, CMP, 22816-4 #### [facility] ([id number]) [address] [place] [address] 15297 WBC (Bld) [#/Vol] 15.3 10*3/uL High 4.0-11.0 [facility] Comment on above: Performed By: #### C BCA, CMP, 53437-9 #### [facility] ([id number]) [address] [place] [address] 93480 COMPREHENSIVE METABOLIC PANE [place]one 12-21-2023 Albumin [Mass/Vol] 3.3 g/dL Normal 3.2-5.3 [facility] Comment on above: Performed By: #### C BCA, CMP, 28671-3 ####[facility] ([id number])[address] [place] [address] 06473 ALP [Catalytic activity/Vol] 59 U/L Normal 39-130 [facility] Comment on above: Performed By: #### C BCA, CMP, 36645-7 ####[facility] ([id number])[address] [place] [address] 40011 ALT [Catalytic activity/Vol] 13 U/L Normal 0-31 [facility] Comment on above: Performed By: #### C BCA, CMP, 02834-5 ####[facility] ([id number])[address] [place] [address] 92874 Anion gap [Moles/Vol] 11 mmol/L Normal 5-15 [facility] Comment on above: Performed By: #### C BCA, CMP, 42237-8 ####[facility] ([id number])[address] [place] [address] [place] [address] AST [Catalytic activity/Vol] 11 U/L Normal 0-41 [facility] Comment on above: Performed By: #### C SEAN ERICKSON, 77479-0 ####[facility] ([id number])[address] [place] [address] 59932 Bilirubin [Mass/Vol] 1.0 mg/dL Normal 0.3-1.2 [facility] Comment on above: Performed By: #### C SEAN ERICKSON, ####[facility] ([id number])[address] [place] [address] 44471 Calcium [Mass/Vol] 8.5 mg/dL Normal 8.5-10.5 [facility] Comment on above: Performed By: #### Chanel ERICKSON CMP, ####[facility] ([id number])[address] [place] [address] [place] [address] Chloride [Moles/Vol] 101 mmol/L Normal 98-109 [facility] Comment on above: Performed By: #### C SEAN ERICKSON, ####[facility] ([id number])[address] [place] [address] 18436 CO2 [Moles/Vol] 25 mmol/L Normal 22-32 [facility] Comment on above: Performed By: #### C SEAN ERICKSON, ####[facility] ([id number])[address] [place] [address] [place] [address] Creatinine [Mass/Vol] 0.66 mg/dL Normal 0.40-1.00 [facility] Comment on above: Result Comment: METH OD TRACEABLE TO IDMS STANDARD Performed By: #### C DRE CMP, ####[facility] ([id number])[address] [place] [address] [place] [address] eGFR (CKD-EPI) NON-RACE DEPENDENT >90 Normal >59 [facility] Comment on above: Result Comment: Reported eGFR is based on the CKD-EPI 2020 equation that does not use a race coefficient. Performed By: #### C SEAN ERICKSON, 07736-6 ####[facility] ([id number])[address] [place] [address] [place] [address] Glucose [Mass/Vol] 132 mg/dL High 65-99 [facility] Comment on above: Performed By: #### Chanel ERICKSON [facility], 10860-4 ####[facility] ([id number])[address] [place] [address] 07023 Potassium [Moles/Vol] 3.5 mmol/L Normal 3.5-5.0 [facility] Comment on above: Performed By: #### Chanel ERICKSON CMP, ####[facility] ([id number])[address] [place] [address] [place] [address] Protein [Mass/Vol] 7.0 g/dL Normal 6.0-8.0 [facility] Comment on above: Performed By: #### C DRE [facility], 70310-9 ####[facility] ([id number])[address] [place] [address] 18719 Sodium [Moles/Vol] 137 mmol/L Normal 134-146 [facility] Comment on above: Performed By: #### Chanel ERICKSON CMP, 95755-3 ####[facility] ([id number])[address] [place] [address] [place] [address] Urea nitrogen [Mass/Vol] 15 mg/dL Normal 5-27 [facility] Comment on above: Performed By: #### Chanel ERICKSON CMP, 73939-5 ####[facility] ([id number])[address] [place] [address] [place] [address] Glucose Glucometer (BldC) [M ass/Vol]on 12-21-2023 Glucose [Mass/Vol] 130 mg/dL High 65-99 [facility] Glucose [Mass/Vol] 153 mg/dL High 65-99 [facility] Glucose [Mass/Vol] 206 mg/dL High 65-99 [facility] MAGNESIUMon 12-21-2023 Magnesium [Mass/Vol] 2.2 mg/dL Normal 1.8-2.6 [facility] Comment on above: Performed By: #### C BCA, CMP, 78122-6 ####[facility] ([id number])[address] [place], [place] [id number] MR FOOT LT W WO CONTon 12-20 [...] Garcia MD on 12/21/2023 1:06 PM Normal [facility] POTASSIUMon 12-21-2023 Potassium [Moles/Vol] 3.8 mmol/L Normal 3.5-5.0 [facility] Comment on above: Performed By: #### 2 823-3 ####[facility] ([id number])[address] [place] [address] 62445 PROTIME AND INRon 12-21-2023 INR Coag (PPP) [Relative time] 2.4 {INR} High 0.8-1.1 [facility] Comment on above: Performed By: #### P INR ####[facility] ([id number])[address] [place] [address] 50231 PT Coag (PPP) [Time] 27.0 s High 9.8-13.2 [facility] Comment on above: Result Comment: NEW REFERENCE RANGE Performed By: #### P INR ####[facility] ([id number])[address] [place] [address] 09499 BLOOD CULTUREon 12-20-2023 Bacteria identified Aer cx Nom (Bld) SPECIMEN NOTES RSURFACE VEIN CULTURE RESULTS NO GROWTH 5 DAYS Normal [facility] Comment on above: Performed By: #### 1 7928-3 ####[facility] ([id number])[address] [place] [address] 92343 Bacteria identified Aer cx Nom (Bld) SPECIMEN NOTES SUBOPTIMAL VOLUME OF BLOOD COLLECTED, RESULTS MAY BE AFFECTED. CULTURE RESULTS NO GROWTH 5 DAYS Normal [facility] Comment on above: Performed By: #### 1 7928-3 ####[facility] ([id number])[address] [place] [address], [address] [place] [address] 09560 CBC AND AUTO DIFFon 12-20-19 24 ABSOLUTE BASOPHIL 0.1 X10E9/L Normal 0.0-0.2 [facility] Comment on above: Performed By: #### C SEAN ERICKSON, 1986-02 #### [facility] ([id number]) [address] [place] [address] 88480 #### 99226-7 #### [facility] ([id number]) [facility], [address] [place] [address] 97810 ABSOLUTE NEUTROPHIL 12.0 X10E9/L High 1.5-6.6 [facility] Comment on above: Performed By: #### C SEAN ERICKSON, 1986-02 #### [facility] ([id number]) [address] [place] [address] 95534 #### 04924-6 #### [facility] ([id number]) [address], [address] [place] [address] Basophils/100 WBC (Bld) 0.5 % Normal [facility] Comment on above: Performed By: #### Chanel ERICKSON [facility], 1988-02 #### [facility] ([id number]) [address] [place] [address] 96264 #### 30113-1 #### [facility] ([id number]) [address] [facility] [place] [address] Eosinophils (Bld) [#/Vol] 0.3 10*3/uL Normal 0.0-0.4 [facility] Comment on above: Performed By: #### Chanel ERICKSON [facility], 1988-02 #### [facility] ([id number]) [address] [place] [address] 68066 #### 55192-3 #### [facility] ([id number]) [address] [facility], [address] [place] [address] Eosinophils/100 WBC (Bld) 2.0 % Normal [facility] Comment on above: Performed By: #### Chanel ERICKSON [facility], 1988-02 #### [facility] ([id number]) [address] [place] [address] 51898 #### 13286-5 #### [facility] ([id number]) [address] [facility], [address] [place] [address] Erythrocyte distribution width (RBC) [Ratio] 14.0 % Normal 11.5-15.0 [facility] Comment on above: Performed By: #### Chanel ERICKSON [facility], 1988-02 #### [facility] ([id number]) [address] [place] [address] 87367 #### 84853-8 #### [facility] ([id number]) [address] [place] [address], [address] [place] [address] Hematocrit (Bld) [Volume fraction] 36.1 % Normal 35-47 [facility] Comment on above: Performed By: #### Chanel ERICKSON CMP, 1988-02 #### [facility] ([id number]) [address] [place] [address] 53233 #### 95874-6 #### [facility] ([id number]) [address] [place] [address], [address] [place] [address] Hemoglobin (Bld) [Mass/Vol] 12.1 g/dL Normal 11.7-15.5 [facility] Comment on above: Performed By: #### Chanel ERICKSON CMP, 1988-02 #### [facility] ([id number]) [address] [place] [address] 40611 #### 82388-1 #### [facility] ([id number]) [address] [place] [address], [address] [place] [address] Lymphocytes (Bld) [#/Vol] 2.4 10*3/uL Normal 1.0-3.5 [facility] Comment on above: Performed By: #### Chanel ERICKSON CMP, 1988-02 #### [facility] ([id number]) [address] [place] [address] 12665 #### 81535-8 #### [facility] ([id number]) [address] [place] [address], [address] [place] [address] Lymphocytes/100 WBC (Bld) 14.9 % Normal [facility] Comment on above: Performed By: #### Chanel ERICKSON CMP, 1988-02 #### [facility] ([id number]) [address] [place] [address] 84048 #### 37615-1 #### [facility] ([id number]) [address], [address] [place] [address] MCH (RBC) [Entitic mass] 28.9 pg Normal 27-34 [facility] Comment on above: Performed By: #### Chanel ERICKSON CMP, 1988-02 #### [facility] ([id number]) [address] [place] [address] 40195 #### 20157-2 #### [facility] ([id number]) [address], [address] [place] [address] MCHC (RBC) [Mass/Vol] 33.5 g/dL Normal 32-36 [facility] Comment on above: Performed By: #### Chanel ERICKSON CMP, 1988-02 #### [facility] ([id number]) [address] [place], [place] [address] #### 82026-7 #### [facility] ([id number]) [address], [address] [place] [address] MCV (RBC) [Entitic vol] 86 fL Normal 80-100 [facility] Comment on above: Performed By: #### Chanel ERICKSON CMP, 1988-02 #### [facility] ([id number]) [address] [place] [address] 60736 #### 91720-1 #### [facility] ([id number]) [address], [address] [place] [address] Monocytes (Bld) [#/Vol] 1.5 10*3/uL High 0-0.9 [facility] Comment on above: Performed By: #### Chanel ERICKSON CMP, 1988-02 #### [facility] ([id number]) [address] [place] [address] 75915 #### 02661-4 #### [facility] ([id number]) [address] [place] [address] Monocytes/100 WBC (Bld) 9.3 % Normal [facility] Comment on above: Performed By: #### Chanel ERICKSON CMP, 1988-02 #### [facility] ([id number]) [address] [place] [address] 96268 #### 45841-8 #### [facility] ([id number]) [address] [place] [address] Neutrophils/100 WBC (Bld) 73.3 % Normal [facility] Comment on above: Performed By: #### Chanel ERICKSON CMP, 1988-02 #### [facility] ([id number]) [address] [place] [address] 31047 #### 21007-8 #### [facility] ([id number]) [address], [address] [place] [address] Platelet mean volume (Bld) [Entitic vol] 8.4 fL Normal 7-12 [facility] Comment on above: Performed By: #### Chanel ERICKSON CMP, 1988-02 #### [facility] ([id number]) [address] [place] [address] 39971 #### 63040-0 #### [facility] ([id number]) [address] [place] [address] Platelets (Bld) [#/Vol] 282 10*3/uL Normal 150-450 [facility] Comment on above: Performed By: #### Chanel ERICKSON CMP, 1988-02 #### [facility] ([id number]) [address] [place] [address] 41222 #### 50839-9 #### [facility] ([id number]) [address] [place] [address] RBC COUNT 4.18 X10E12/L Normal 3.80-5.20 [facility] Comment on above: Performed By: #### Chanel ERICKSON CMP, 1988-02 #### [facility] ([id number]) [address] [place] [address] 24549 #### 92294-3 #### [facility] ([id number]) [address] [facility], [address] [place] [address] WBC (Bld) [#/Vol] 16.4 10*3/uL High 4.0-11.0 [facility] Comment on above: Performed By: #### Chanel ERICKSON CMP, 1988-02 #### [facility] ([id number]) [address] [place] [address] 64375 #### 30775-5 #### [facility] ([id number]) [address] [facility] [place] [address] COMPREHENSIVE METABOLIC PANE Tyrone 12-20-2023 Albumin [Mass/Vol] 3.7 g/dL Normal 3.2-5.3 [facility] Comment on above: Performed By: #### Chanel ERICKSON [facility], 1988-02 #### [facility] ([id number]) [address] [place] [address] 82002 #### 31949-8 #### [facility] ([id number]) [address] [facility], [address] [place] [address] ALP [Catalytic activity/Vol] 74 U/L Normal 39-130 [facility] Comment on above: Performed By: #### Chanel ERICKSON CMP, 1988-02 #### [facility] ([id number]) [address] [place] [address] 71954 #### 30085-1 #### [facility] ([id number]) [address] [facility], [address] [place] [address] ALT [Catalytic activity/Vol] 15 U/L Normal 0-31 [facility] Comment on above: Performed By: #### Chanel ERICKSON CMP, 1988-02 #### [facility] ([id number]) [address] [place] [address] 14473 #### 83767-9 #### [facility] ([id number]) [address], [address] [place] [address] Anion gap [Moles/Vol] 6 mmol/L Normal 5-15 [facility] Comment on above: Performed By: #### Chanel ERICKSON CMP, 1988-02 #### [facility] ([id number]) [address] [place] [address] 81860 #### 50234-2 #### [facility] ([id number]) [address], [address] [place] [address] AST [Catalytic activity/Vol] 17 U/L Normal 0-41 [facility] Comment on above: Performed By: #### Chanel ERICKSON CMP, 1988-02 #### [facility] ([id number]) [address] [place] [address] 88974 #### 57245-5 #### [facility] ([id number]) [address] [place] [address] Bilirubin [Mass/Vol] 0.4 mg/dL Normal 0.3-1.2 [facility] Comment on above: Performed By: #### Chanel ERICKSON CMP, 1988-02 #### [facility] ([id number]) [address] [place] [address] 19210 #### 87044-5 #### [facility] ([id number]) [address] [place] [address] Calcium [Mass/Vol] 8.3 mg/dL Low 8.5-10.5 [facility] Comment on above: Performed By: #### C BCA, CMP, 1988-02 #### [facility] ([id number]) [address] [place] [address] #### [id number] #### [facility] ([id number]) [address] [place] [address] Chloride [Moles/Vol] 101 mmol/L Normal 98-109 [facility] Comment on above: Performed By: #### C BCA, CMP, 1988-02 #### [facility] ([id number]) [address] [place] [address] #### [id number] #### [facility] ([id number]) [address] [place] [address] CO2 [Moles/Vol] 26 mmol/L Normal 22-32 [facility] Comment on above: Performed By: #### C BCA, CMP, 1988-02 #### [facility] ([id number]) [address] [place] [address] #### [id number] #### [facility] ([id number]) [address] [place] [address] Creatinine [Mass/Vol] 0.69 mg/dL Normal 0.40-1.00 [facility] Comment on above: Result Comment: METH OD TRACEABLE TO IDMS STANDARD Performed By: #### C BCA, CMP, 1988-02 #### [facility] ([id number]) [address] [place] [address] #### [id number] #### [facility] ([id number]) [address] [place] [address] eGFR (CKD-EPI) NON-RACE DEPENDENT >90 Normal >59 [facility] Comment on above: Result Comment: Reported eGFR is based on the CKD-EPI 2021 equation that does not use a race coefficient. Performed By: #### C DRE [facility], 1988-02 #### [facility] ([id number]) [address] [place] [address] #### [id number] #### [facility] ([id number]) [address] [place] [address] Glucose [Mass/Vol] 132 mg/dL High 65-99 [facility] Comment on above: Performed By: #### C [facility], 1988-02 #### [facility] ([id number]) [address] [place] [address] #### [id number] #### [facility] ([id number]) [address] [place] [address] Potassium [Moles/Vol] 3.8 mmol/L Normal 3.5-5.0 [facility] Comment on above: Performed By: #### C [facility], 1988-02 #### [facility] [facility] ([id number]) [address] [place] [address] #### [id number] #### [facility] ([id number]) [address] [place] [address] Protein [Mass/Vol] 7.9 g/dL Normal 6.0-8.0 [facility] Comment on above: Performed By: #### C DRE [facility], 1988-02 #### [facility] ([id number]) [address] [place] [address] 93514 #### [id number] #### [facility] ([id number]) [address] [place] [address] Sodium [Moles/Vol] 133 mmol/L Low 134-146 [facility] Comment on above: Performed By: #### C DRE CMP, 1988-02 #### [facility] ([id number]) [address] [place] [address] 27877 #### [id number] #### [facility] ([id number]) [address] [place] [address] Urea nitrogen [Mass/Vol] 16 mg/dL Normal 5-27 [facility] Comment on above: Performed By: #### Chanel [facility], 1988-02 #### [facility] ([id number]) [address] [place] [address] #### [id number] #### [facility] ([id number]) [address] [address] [place] [address] CRP [Mass/Vol]on 12-20-2023 C REACTIVE PROTEIN 11.8 mg/dL High 0.000-0.744 [facility] Comment on above: Performed By: #### Chanel [facility], 1988-02 #### [facility] ([id number]) [address] [place] [address]62 #### [id number] #### [facility] ([id number]) [address] [facility] [address] [place] [address] ESR Photometric method (Bld) [Velocity]on 12-20-2023 ESR, ERYTHROCYTE SEDIMENTATION RATE 60 mm/h High 0-30 [facility] Comment on above: Performed By: #### Chanel [facility], 1988-02 #### [facility] ([id number]) [address] [place] [address]2732 #### [id number] #### [facility] ([id number]) [address] [place] [address] Glucose Glucometer (BldC) [M ass/Vol]on 12-20-2023 Glucose [Mass/Vol] 174 mg/dL High 65-99 [facility] URINALYSISon 12-20-2023 Bilirubin Ql (U) Negative Normal NEG [facility] Comment on above: Performed By: #### U A #### [facility] ([id number]) [address] [place] [address] [place] [address] BLOOD/HGB Negative Normal NEG [facility] Comment on above: Performed By: #### U A #### [facility] ([id number]) [address] [place] [address] [place] [address] Color (U) YELLOW Normal YELLOW [facility] Comment on above: Performed By: #### U A #### [facility] ([id number]) [address] [place] [address] [place] [address] Glucose Ql (U) Negative Normal NEG [facility] Comment on above: Performed By: #### U A #### [facility] ([id number]) [address] [place] [address] [place] [address] Ketones Ql (U) Negative Normal NEG [facility] Comment on above: Performed By: #### U A #### [facility] ([id number]) [address] [place] [address] [place] [address] Leukocyte esterase Test strip Ql (U) Negative Normal NEG [facility] Comment on above: Performed By: #### U A #### [facility] ([id number]) [address] [place] [address] [place] [address] Nitrite Ql (U) Positive Abnormal NEG [facility] Comment on above: Performed By: #### U A #### [facility] ([id number]) [address] [place] [address] [place] [address] pH (U) 6.0 [pH] Normal 5.0-8.5 [facility] Comment on above: Performed By: #### U A #### [facility] ([id number]) [address] [place] [address] Protein Ql (U) Negative Normal NEG [facility] Comment on above: Performed By: #### U A #### [facility] ([id number]) [address] [place] [address] R.B.CELLS 0 /hpf Normal 0-5 [facility] Comment on above: Performed By: #### U A #### [facility] ([id number]) [address] [place] [address] Specific gravity (U) [Rel density] 1.015 Normal 1.003-1.035 [facility] Comment on above: Performed By: #### U A #### [facility] ([id number]) [address] [place] [address] SQUAMOUS EPITHELIUM 0 to 3 Normal 0-5 [facility] Comment on above: Performed By: #### U A #### [facility] ([id number]) [address] [place] [address] TURBIDITY CLEAR Normal CLEAR [facility] Comment on above: Performed By: #### U A #### [facility] ([id number]) [address] [place] [address] Urobilinogen Qn (U) 0.2 {Mindy'U}/dL Normal <1.1 [facility] Comment on above: Performed By: #### U A #### [facility] ([id number]) [address] [place] [address] W.B.CELLS 0 to 1 Normal 0-5 [facility] Comment on above: Performed By: #### U A #### [facility] ([id number]) [address] [place] [address] XR FOOT LT MIN 3 VWSon XR [...] Bradshaw MD on 12/20/2023 6:37 PM Normal [facility] XR FOOT RT MIN 3 VWSon [...] Bradshaw MD on 12/20/2023 5:56 PM Normal [facility] XR KNEE RT 3 VWSon XR KNEE RT 3 VWS XR KNEE RT 3 VWS XR KNEE RT 3 VWS CLINICAL INFORMATION: Right knee pain. Fall. Pain. COMPARISON: None. IMPRESSION: * No evidence of acute fracture. 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 No large joint effusion. Osteopenia. Finalized by Andreas Araujo MD on 12/20/2023 5:05 PM [facility] 36on 11-16-2023 36 Please let her know her cholesterol levels look good. Continue pravastatin. Thanks [facility] Telephoneon 11-16-2023 Telephone [phone] Maximo Gill 1950 Date Provider Department Center 11/16/2023 EBER PAGAN CHING Tavera Family History Problem Relation Age of Onset Heart attack Father Diabetes Father Hypertension Father Coronary artery disease Father Rheum arthritis Father Family Status - Relation Status Age at Father [facility] 37on 11-01-2023 37 *Increase amlodipine to 10mg daily. You can take 2 tablets of your current 5mg prescription daily until this runs out then start new prescription of 1 - 10mg tablet daily. *Monitor your blood pressure daily 1-2 hours after medications *Have labs drawn *Follow-up with GI given dark stools [facility] Office Visiton 11-01-2023 Follow-up visit [id number] Maximo Gill 1950 Provider Department Center 11/01/2023 EBER PAGAN CHING Salazar Family History Problem Relation Age of Onset Heart attack Father Diabetes Father Hypertension Father Coronary artery disease Father Rheum arthritis Father Family Status - Relation Status Age at Father Level of Service:94982 [place] OFFICE/OUTPATIENT ESTABLISHED MOD MDM 30 MIN Reason for Visit and Comments: Atrial Fibrillation [80] Congestive Heart Failure [127] [facility] Office Visiton 05-23-2023 Follow-up visit [id number] Maximo Gill 1950 Date Provider Department Center 05/23/2023 RAMAN CASTANEDA CHING Salazar Family History Problem Relation Age of Onset Heart attack Father Diabetes Father Hypertension Father Coronary artery disease Father Rheum arthritis Father Family Status - Relation Status Age at Father Level of Service:06320 [place] OFFICE/OUTPATIENT ESTABLISHED LOW MDM 20-29 MIN Normal [facility] CBC AUTO DIFFon 03-02-2023 BASO # 0.1 103/ul Normal 0.0-0.1 [facility] Comment on above: Performed By: #### C BC #### [facility] [address] [address] [address] Yandy oRdarte Basophils/100 WBC (Bld) 0.4 % Normal 0.2-2.0 [facility] Comment on above: Performed By: #### C BC #### [facility] [address] [place] [address] Dr. Yandy Rodarte EO # 0.5 103/ul Normal 0.0-0.7 [facility] Comment on above: Performed By: #### C BC #### [facility] [address] [place] [address] Dr. Yandy Rodarte Eosinophils/100 WBC (Bld) 4.1 % Normal 0.9-7.0 [facility] Comment on above: Performed By: #### C BC #### [facility] [address] [place] [address] Dr. Yandy Rodarte Erythrocyte distribution width (RBC) [Ratio] 14.0 % Normal 11.0-15.0 [facility] Comment on above: Performed By: #### C BC #### [facility] [address] [place] [address] Dr. Yandy Rodarte Hematocrit (Bld) [Volume fraction] 42.8 % Normal 36.0-48.0 [facility] Comment on above: Performed By: #### C BC #### [facility] [address] [place] [address] Dr. Yandy Rodarte Hemoglobin (Bld) [Mass/Vol] 13.6 g/dL Normal 12.0-16.0 [facility] Comment on above: Performed By: #### C BC #### [facility] [address] [place] [address] Dr. Yandy Rodarte IG # 0.04 10e3/ul Critically high 0.00-0.[address] [facility] Comment on above: Performed By: #### C BC #### [facility] [address] [place] [address] Dr. Yandy Rodarte IG % 0.4 % Normal 0.0-0.5 [facility] Comment on above: Performed By: #### C BC #### [facility] [address] [place] [address] Dr. Yandy Rodarte LYMPH # 2.2 103/ul Normal 1.2-3.8 [facility] Comment on above: Performed By: #### C BC #### [facility] [address] [place] [address] Dr. Yandy Rodarte Lymphocytes/100 WBC (Bld) 20.0 % Critically low 20.5-60.0 [facility] Comment on above: Performed By: #### C BC #### [facility] [address] [place] [address] Dr. Yandy Rodarte MANUAL DIFF REQ NO Normal [facility] Comment on above: Performed By: #### C BC #### [facility] [address] [place] [address] Dr. Yandy Rodarte MCH (RBC) [Entitic mass] 28.2 pg Normal 26.7-34.0 [facility] Comment on above: Performed By: #### C BC #### [facility] [address] [place] [address] Dr. Yandy Rodarte MCHC (RBC) [Mass/Vol] 31.8 g/dL Normal 29.9-35.2 [facility] Comment on above: Performed By: #### C BC #### [facility] [address] [place] [address] Dr. Yandy Rodarte MCV (RBC) [Entitic vol] 88.8 fL Normal 81.0-99.0 [facility] Comment on above: Performed By: #### C BC #### [facility] [address] [place] [address] Dr. Yandy Rodarte MONO # 0.7 103/ul Normal 0.3-0.8 [facility] Comment on above: Performed By: #### C BC #### [facility] [address] [place] [address] Dr. Yandy Rodarte Monocytes/100 WBC (Bld) 6.3 % Normal 1.7-12.0 [facility] Comment on above: Performed By: #### C BC #### [facility] [address] [place] [address] Dr. Yandy Rodarte NEUT # 7.7 103/ul Critically high 1.4-6.5 [facility] Comment on above: Performed By: #### C BC #### [facility] [address] [place] [address] Dr. Yandy Rodarte Neutrophils/100 WBC (Bld) 68.8 % Normal 43.0-75.0 [facility] Comment on above: Performed By: #### C BC #### [facility] [address] [place] [address] Dr. Yandy Rodarte Platelet mean volume (Bld) [Entitic vol] 9.8 fL Normal 9.5-13.5 [facility] Comment on above: Performed By: #### C BC #### [facility] [address] [place] [address] Dr. Yandy Rodarte PLT 259 103/ul Normal 150-450 [facility] Comment on above: Performed By: #### C BC #### [facility] [address] [place] [address] Dr. Yandy Rodarte RBC 4.82 106/ul Normal 4.20-5.40 [facility] Comment on above: Performed By: #### C BC #### [facility] [address] [place] [address] Dr. Yandy Rodarte WBC 11.2 103/ul Critically high 4.0-11.0 [facility] Comment on above: Performed By: #### C BC #### [facility] [address] [place] [address] Dr. Yandy Rodarte ECHOCARDIO M/2D COMPLETEon 0 03-02-2023 ECHOCARDIO M/2D COMPLETE Patient: AFIA GILL Exam Date: 03/02/2023 : 1950 Gender:F Ordering : MRS. JESSICA PRECIADO [employer] Admission #: [id number] Family : Order #: [id number] CLICK HERE TO VIEW EXAM ECHOCARDIOGRAM REPORT [...] Left Atrium LA Volume Index (2D A2C): 034689 mm3 Left Atrium Systolic Dimension: 3.80 cm [...] Gomez M.D. on 03/02/2023 at 19:19 Normal [facility] LIPID PROFILEon 03-02-2023 CHOL-HDL RATIO NORM SEE BELOW Normal [facility] Comment on above: Result Comment: 3.3 - 4.4 LOW RISK 4.4 - 7.1 AVERAGE RISK 7.1 - 11.0 MODERATE RISK >11.0 HIGH RISK Performed By: #### L IPID, CMP #### [facility] [address] [address] [address] Yandy Rodarte Cholesterol [Mass/Vol] 203 mg/dL Critically high <=200 [facility] Comment on above: Performed By: #### L IPID, CMP #### [facility] [address] [address] [address] Yandy Rodarte Cholesterol in HDL [Mass/Vol] 35 mg/dL Critically low 40-60 [facility] Comment on above: Performed By: #### L IPID, CMP #### [facility] [address] [address] [address] Yandy Rodarte Cholesterol in LDL [Mass/Vol] 123.0 mg/dL Normal [facility] Comment on above: Performed By: #### L IPID, CMP #### [facility] [address] [address] [address] Yandy Rodarte Cholesterol.total/C holesterol in HDL [Mass ratio] 5.8 {ratio} Normal [facility] Comment on above: Performed By: #### L IPID, CMP #### [facility] [address] [address] [address] Yandy Rodarte HDL NORMAL > or = 60 mg/dl - LO W CARDIOVASCULAR RISK <40 mg/dl - HIGH CARDIOVASCULAR RISK Normal [facility] Comment on above: Performed By: #### L IPID, CMP #### [facility] [address] [address] [address] Yandy Rodarte LDL CALC NORMAL SEE BELOW Normal [facility] Comment on above: Result Comment: <100 mg/dl OPTIMAL 100 - 129 mg/dl NEAR OR ABOVE OPTIMAL 130 - 159 mg/dl BORDERLINE HIGH 160 - 189 mg/dl HIGH >190 mg/dl VERY HIGH Performed By: #### L IPID, CMP #### [facility] [address] [address] [address] Yandy Rodarte Triglyceride [Mass/Vol] 225 mg/dL Critically high <=150 [facility] Comment on above: Performed By: #### L IPID, CMP #### [facility] [address] [address] [address] Yandy Rodarte VLDL CALC 45.0 mg/dL Normal [facility] Comment on above: Performed By: #### L IPID, CMP #### [facility] [address] [address] [address] Yandy Rodarte PROF 14(COMP METB)on 023 Albumin [Mass/Vol] 3.5 g/dL Normal 3.4-5.0 [facility] Comment on above: Performed By: #### L IPID, CMP #### [facility] [address] [address] [address] Yandy Rodarte Albumin/Globulin [Mass ratio] 0.8 {ratio} Normal [facility] Comment on above: Performed By: #### L IPID, CMP #### [facility] [address] [address] [address] Yandy Rodarte ALP [Catalytic activity/Vol] 100 U/L Normal 46-116 [facility] Comment on above: Performed By: #### L IPID, CMP #### [facility] [address] [address] [address] Yandy Rodarte ALT [Catalytic activity/Vol] 22 U/L Normal 14-59 [facility] Comment on above: Performed By: #### L IPID, CMP #### [facility] [address] [address] [address] Yandy Rodarte Anion gap [Moles/Vol] 8.9 mmol/L Normal [facility] Comment on above: Performed By: #### L IPID, CMP #### [facility] [address] [address] [address] Yandy Rodarte AST [Catalytic activity/Vol] 17 U/L Normal 15-37 [facility] Comment on above: Performed By: #### L IPID, CMP #### [facility] [address] [address] [address] Yandy Rodarte Bilirubin [Mass/Vol] 0.4 mg/dL Normal 0.2-1.0 [facility] Comment on above: Performed By: #### L IPID, CMP #### [facility] [address] [place] [address] Dr. Yandy Rodarte Calcium [Mass/Vol] 9.2 mg/dL Normal 8.5-10.1 [facility] Comment on above: Performed By: #### L IPID, CMP #### [facility] [address] [address] [address] Yandy Rodarte Chloride [Moles/Vol] 104 mmol/L Normal 98-107 [facility] Comment on above: Performed By: #### L IPID, CMP #### [facility] [address] [address] [address] Yandy Rodarte CO2 [Moles/Vol] 32.6 mmol/L Critically high 21.0-32.0 [facility] Comment on above: Performed By: #### L IPID, CMP #### [facility] [address] [address] [address] Yandy Rodarte Creatinine [Mass/Vol] 0.81 mg/dL Normal 0.55-1.02 [facility] Comment on above: Performed By: #### L IPID, CMP #### [facility] [address] [address] [address] Yandy Rodarte EGFR-AF MALAWIAN >60 Normal >=60 [facility] Comment on above: Performed By: #### L IPID, CMP #### [facility] [address] [address] [address] Yandy Rodarte EGFR-NON AF MALAWIAN >60 Normal >=60 [facility] Comment on above: Performed By: #### L IPID, CMP #### [facility] [address] [address] [address] Yandy Rodarte Globulin (S) [Mass/Vol] 4.6 g/dL Normal [facility] Comment on above: Performed By: #### L IPID, CMP #### [facility] [address] [address] [address] Yandy Rodarte Glucose [Mass/Vol] 114 mg/dL Critically high 74-106 [facility] Comment on above: Performed By: #### L IPID, CMP #### [facility] [address] [place] [address] Dr. Yandy Rodarte Potassium [Moles/Vol] 4.5 mmol/L Normal 3.5-5.1 [facility] Comment on above: Performed By: #### L IPID, CMP #### [facility] [address] [address] [address] Yandy Rodarte Protein [Mass/Vol] 8.1 g/dL Normal 6.4-8.2 [facility] Comment on above: Performed By: #### L IPID, CMP #### [facility] [address] [place] [address] Dr. Yandy Rodarte Sodium [Moles/Vol] 141 mmol/L Normal 136-145 [facility] Comment on above: Performed By: #### L IPID, CMP #### [facility] [address] [address] [address] Yandy Rodarte Urea nitrogen [Mass/Vol] 18.0 mg/dL Normal 7.0-18.0 [facility] Comment on above: Performed By: #### L IPID, CMP #### [facility] [address] [place] [address] Dr. Yandy Rodarte Urea nitrogen/Creatinine [Mass ratio] 22.2 mg/mg Normal [facility] Comment on above: Performed By: #### L IPID, [facility] #### [facility] [address] [address] [address] Yandy Rodarte Office Visiton 02-19-2023 Follow-up visit [id number] Maximo Gill 1950 F Date Provider Department Center 02/19/2023 [id number] PRECIADO [facility] Family History Problem Relation Age of Onset Heart attack Father Diabetes Father Hypertension Father Coronary artery disease Father Rheum arthritis Father Family Status - Relation Status Age at Father Level of Service:11802 [place] OFFICE/OUTPATIENT ESTABLISHED MOD MDM 30-39 MIN Reason for Visit and Comments: Follow-up [098476] - 6 month follow up Normal [facility] MG MAMM SCREEN MARIELENA W CADon 0 12-27-2022 MG MAMM SCREEN MARIELENA W CAD Patient: AFIA GILL Exam Date: 12/27/2022 : 1950 Gender:F Ordering : DR YAHIR BROTHERS M.D. Admission #: [id number] Family : Order #: [id number] CLICK HERE TO VIEW EXAM RADIOLOGY REPORT [...] cervical cancer at age 37. LOCATION: [facility] BREAST COMPOSITION: Scattered areas fibroglandular [...] MD on 12/28/2022 at 09:38 Normal [facility] CT SINUSES WO CONon 05-18-20 [...] by: YAYA ZULUAGA Date: 2022-05-18 08:38 Normal [facility] BASIC METABOLIC PANELon - Calcium [Mass/Vol] 9.6 mg/dL Normal 8.6-10.3 [facility] Comment on above: Order Comment: No: D o not add to previous draw Performed By: #### 5 0608 #### [facility] [address] [place] [address], [place] Chloride [Moles/Vol] 101 mmol/L Normal 98-107 [facility] Comment on above: Order Comment: No: D o not add to previous draw Performed By: #### 5 0608 #### [facility] [address] [place] [address], [place] CO2 [Moles/Vol] 29 mmol/L Normal 21-31 [facility] Comment on above: Order Comment: No: D o not add to previous draw Performed By: #### 5 0608 #### [facility] [address] [place] [address], [place] Creatinine [Mass/Vol] 0.71 mg/dL Normal 0.60-1.20 [facility] Comment on above: Order Comment: No: D o not add to previous draw Performed By: #### 5 0608 #### [facility] [address] [place] [address], [place] GFR/1.73 sq M predicted among blacks MDRD (S/P/Bld) [Vol rate/Area] mL/min/{1.73_m2} Normal >60 [facility] Comment on above: Order Comment: No: D o not add to previous draw Performed By: #### 5 0608 #### [facility] [address] [place] [address], [place] GFR/1.73 sq M predicted among non-blacks MDRD (S/P/Bld) [Vol rate/Area] mL/min/{1.73_m2} Normal >60 [facility] Comment on above: Order Comment: No: D o not add to previous draw Performed By: #### 5 0608 #### [facility] [address] [place] [address], [place] Glucose [Mass/Vol] 127 mg/dL High 70-100 [facility] Comment on above: Order Comment: No: D o not add to previous draw Performed By: #### 5 0608 #### [facility] [address] [place] [address], [place] Potassium [Moles/Vol] 4.3 mmol/L Normal 3.5-5.1 [facility] Comment on above: Order Comment: No: D o not add to previous draw Performed By: #### 5 0608 #### [facility] [address] [place] [address], [facility] Sodium [Moles/Vol] 137 mmol/L Normal 136-145 [facility] Comment on above: Order Comment: No: D o not add to previous draw Performed By: #### 5 0608 #### [facility] [address] [place] [id number], [facility] Urea nitrogen [Mass/Vol] 20 mg/dL Normal 7-25 [facility] Comment on above: Order Comment: No: D o not add to previous draw Performed By: #### 5 0608 #### [facility] [address] [place] [id number], [facility] CBC COMPLETE BLOOD COUNTon - Erythrocyte distribution width (RBC) [Ratio] 14.6 % Normal 11.5-15.0 [facility] Comment on above: Order Comment: No: D o not add to previous draw Performed By: #### 5 0608 #### [facility] [address] [place] [address], [facility] Hematocrit (Bld) [Volume fraction] 44.6 % Normal 36.0-45.0 [facility] Comment on above: Order Comment: No: D o not add to previous draw Performed By: #### 5 0608 #### [facility] [address] [place] [id number], [place] [facility] Hemoglobin (Bld) [Mass/Vol] 14.1 g/dL Normal 12.0-15.0 [facility] Comment on above: Order Comment: No: D o not add to previous draw Performed By: #### 5 0608 #### [facility] [address] [place] [id number], [facility] [facility] MCH (RBC) [Entitic mass] 30.2 pg Normal 27.0-33.0 [facility] Comment on above: Order Comment: No: D o not add to previous draw Performed By: #### 5 0608 #### [facility] [address] [place] MCHC (RBC) [Mass/Vol] 31.6 g/dL Low 32.0-35.0 [facility] Comment on above: Order Comment: No: D o not add to previous draw Performed By: #### 5 0608 #### [facility] [address] [place] [address], [facility] [facility] MCV (RBC) [Entitic vol] 95.5 fL Normal 82.0-98.0 [facility] Comment on above: Order Comment: No: D o not add to previous draw Performed By: #### 5 0608 #### [facility] [address] [facility]. [address] Nucleated RBC/100 WBC (Bld) [Ratio] 0 % Normal 0-0 [facility] Comment on above: Order Comment: No: D o not add to previous draw Performed By: #### 5 0608 #### [facility] [address] [place] [address], [facility] [facility] PLAT CNT 250 10*3/uL Normal 150-400 [facility] Comment on above: Order Comment: No: D o not add to previous draw Performed By: #### 5 0608 #### [facility] [address] [facility] [place] [address], [facility] [facility] RBC (Bld) [#/Vol] 4.67 10*6/uL Normal 3.80-5.00 [facility] Comment on above: Order Comment: No: D o not add to previous draw Performed By: #### 5 0608 #### [facility] [address] [place] [address], [facility] [facility] WBC (Bld) [#/Vol] 9.20 10*3/uL Normal 4.00-10.60 [facility] Comment on above: Order Comment: No: D o not add to previous draw Performed By: #### 5 0608 #### [facility] [address] [place] [address], [facility] [facility] POC GLUCOSE LABon 02-02-2019 Glucose [Mass/Vol] 146 mg/dL High 70-100 [facility] Comment on above: Performed By: #### 5 0608 #### [facility] [address] [place] [id number], [facility] Glucose [Mass/Vol] 115 mg/dL High 70-100 [facility] Comment on above: Performed By: #### 5 0608 #### [facility] [address] [facility] [place] [address], [facility] [facility] PROTHROMBIN TIMEon 9 INR Coag (PPP) [Relative time] 1.22 {INR} High 0.91-1.16 [facility] Comment on above: Order Comment: [...] 1995;108:231S-246S. Performed By: #### 5 0608 #### [facility] [address] [place] [address], [facility] PT Coag (PPP) [Time] 15.4 s High 12.3-14.8 [facility] Comment on above: Order Comment: No: D o not add to previous draw Result Comment: ALL RESULTS MUST BE INTERPRETED WITH RESPECT TO BLOOD DRAWING ARTIFACT OR DILUTION ERROR OF ANTICOAGULANT AT THE TIME OF SAMPLING. Performed By: #### 5 0608 #### [facility] [address] [place] [id number], [facility] POC GLUCOSE LABon 02-01-2019 Glucose [Mass/Vol] 152 mg/dL High 70-100 [facility] Comment on above: Performed By: #### 5 0608 #### [facility] [address] [place] [address], [place] Glucose [Mass/Vol] 118 mg/dL High 70-100 [facility] Comment on above: Performed By: #### 5 0608 #### [facility] [address] [place] [address], [place] Glucose [Mass/Vol] 197 mg/dL High 70-100 [facility] Comment on above: Performed By: #### 5 0608 #### [facility] [address] [place] [address], [place] Glucose [Mass/Vol] 123 mg/dL High 70-100 [facility] Comment on above: Performed By: #### 5 0608 #### [facility] [address] [place] [address], [facility] PROTHROMBIN TIMEon 9 INR Coag (PPP) [Relative time] 1.24 {INR} High 0.91-1.16 [facility] Comment on above: Order Comment: [...] 1995;108:231S-246S. Performed By: #### 0 0071 #### [facility] [address] [place] [address], [facility] PT Coag (PPP) [Time] 15.6 s High 12.3-14.8 [facility] Comment on above: Order Comment: Unkno wn Result Comment: ALL RESULTS MUST BE INTERPRETED WITH RESPECT TO BLOOD DRAWING ARTIFACT OR DILUTION ERROR OF ANTICOAGULANT AT THE TIME OF SAMPLING. Performed By: #### 0 0071 #### [facility] [address] BASIC METABOLIC PANELon 01-20 Calcium [Mass/Vol] 9.5 mg/dL Normal 8.6-10.3 [facility] Comment on above: Order Comment: No: D o not add to previous draw Performed By: #### 0 0071 #### [facility] [address] [facility] [place] [address], [facility] Chloride [Moles/Vol] 98 mmol/L Normal 98-107 [facility] Comment on above: Order Comment: No: D o not add to previous draw Performed By: #### 0 0071 #### [facility] [address] [facility] [place] [address], [facility] CO2 [Moles/Vol] 29 mmol/L Normal 21-31 [facility] Comment on above: Order Comment: No: D o not add to previous draw Performed By: #### 0 0071 #### [facility] [address] [place] [address], [facility] Creatinine [Mass/Vol] 0.72 mg/dL Normal 0.60-1.20 [facility] Comment on above: Order Comment: No: D o not add to previous draw Performed By: #### 0 0071 #### [facility] [address] [place] [address], [place] GFR/1.73 sq M predicted among blacks MDRD (S/P/Bld) [Vol rate/Area] mL/min/{1.73_m2} Normal >60 [facility] Comment on above: Order Comment: No: D o not add to previous draw Performed By: #### 0 0071 #### [facility] [address] [place] [address], [facility] GFR/1.73 sq M predicted among non-blacks MDRD (S/P/Bld) [Vol rate/Area] mL/min/{1.73_m2} Normal >60 [facility] Comment on above: Order Comment: No: D o not add to previous draw Performed By: #### 0 0071 #### [facility] [address] [place] [address], [place] Glucose [Mass/Vol] 120 mg/dL High 70-100 [facility] Comment on above: Order Comment: No: D o not add to previous draw Performed By: #### 0 0071 #### [facility] [address] [place] [address], [place] Potassium [Moles/Vol] 3.5 mmol/L Normal 3.5-5.1 [facility] Comment on above: Order Comment: No: D o not add to previous draw Performed By: #### 0 0071 #### [facility] [address] [place] [address], [place] Sodium [Moles/Vol] 138 mmol/L Normal 136-145 [facility] Comment on above: Order Comment: No: D o not add to previous draw Performed By: #### 0 0071 #### [facility] [address] [place] [address], [facility] Urea nitrogen [Mass/Vol] 20 mg/dL Normal 7-25 [facility] Comment on above: Order Comment: No: D o not add to previous draw Performed By: #### 0 0071 #### [facility] [address] [place] [address], [facility] CBC COMPLETE BLOOD COUNTon 0 - Erythrocyte distribution width (RBC) [Ratio] 14.6 % Normal 11.5-15.0 [facility] Comment on above: Order Comment: No: D o not add to previous draw Performed By: #### 0 0071 #### [facility] [address] Hematocrit (Bld) [Volume fraction] 42.7 % Normal 36.0-45.0 [facility] Comment on above: Order Comment: No: D o not add to previous draw Performed By: #### 0 0071 #### [facility] [address] [place] [address], [facility] Hemoglobin (Bld) [Mass/Vol] 13.8 g/dL Normal 12.0-15.0 [facility] Comment on above: Order Comment: No: D o not add to previous draw Performed By: #### 0 0071 #### [facility] [address] [place] [address], [facility] MCH (RBC) [Entitic mass] 31.0 pg Normal 27.0-33.0 [facility] Comment on above: Order Comment: No: D o not add to previous draw Performed By: #### 0 0071 #### [facility] [address] [place] [id number], [facility] MCHC (RBC) [Mass/Vol] 32.3 g/dL Normal 32.0-35.0 [facility] Comment on above: Order Comment: No: D o not add to previous draw Performed By: #### 0 0071 #### [facility] [address] [place] [address], [facility] MCV (RBC) [Entitic vol] 96.0 fL Normal 82.0-98.0 [facility] Comment on above: Order Comment: No: D o not add to previous draw Performed By: #### 0 0071 #### [facility] [address] [facility] [address], [facility] Nucleated RBC/100 WBC (Bld) [Ratio] 0 % Normal 0-0 [facility] Comment on above: Order Comment: No: D o not add to previous draw Performed By: #### 0 0071 #### [facility] [address] [facility] [address], [facility] PLAT CNT 217 10*3/uL Normal 150-400 [facility] Comment on above: Order Comment: No: D o not add to previous draw Performed By: #### 0 0071 #### [facility] [address] [facility] [place] [address], [facility] RBC (Bld) [#/Vol] 4.45 10*6/uL Normal 3.80-5.00 [facility] Comment on above: Order Comment: No: D o not add to previous draw Performed By: #### 0 0071 #### [facility] [address] [facility] [address], [facility] WBC (Bld) [#/Vol] 9.17 10*3/uL Normal 4.00-10.60 [facility] Comment on above: Order Comment: No: D o not add to previous draw Performed By: #### 0 0071 #### [facility] [address] [facility] [place] [address], [facility] POC GLUCOSE LABon 01-31-2019 Glucose [Mass/Vol] 116 mg/dL High 70-100 [facility] Comment on above: Performed By: #### 0 0071 #### [facility] [address] [place] [address], [place] Glucose [Mass/Vol] 122 mg/dL High 70-100 [facility] Comment on above: Performed By: #### 0 0071 #### [facility] [address] [place] [address], [place] Glucose [Mass/Vol] 191 mg/dL High 70-100 [facility] Comment on above: Performed By: #### 0 0071 #### [facility] [address] [place] [address], [place] Glucose [Mass/Vol] 131 mg/dL High 70-100 [facility] Comment on above: Performed By: #### 0 0071 #### [facility] [address] [place], [place] [id number] [place] [address] PROTHROMBIN TIMEon 9 INR Coag (PPP) [Relative time] 1.24 {INR} High 0.91-1.16 [facility] Comment on above: Order Comment: Unkno wn [...] 1995;108:231S-246S. Performed By: #### 0 0071 #### [facility] [address] [place] [address], [facility] PT Coag (PPP) [Time] 15.6 s High 12.3-14.8 [facility] Comment on above: Order Comment: Unkno wn Result Comment: ALL RESULTS MUST BE INTERPRETED WITH RESPECT TO BLOOD DRAWING ARTIFACT OR DILUTION ERROR OF ANTICOAGULANT AT THE TIME OF SAMPLING. Performed By: #### 0 0071 #### [facility] [address] [place] [address], [facility] BASIC METABOLIC PANELon 01-20 Calcium [Mass/Vol] 10.0 mg/dL Normal 8.6-10.3 [facility] Comment on above: Order Comment: No: D o not add to previous draw Performed By: #### 0 0071 #### [facility] [address] [place] [address], [facility] Chloride [Moles/Vol] 99 mmol/L Normal 98-107 [facility] Comment on above: Order Comment: No: D o not add to previous draw Performed By: #### 0 0071 #### [facility] [address] [facility] [address], [facility] CO2 [Moles/Vol] 30 mmol/L Normal 21-31 The [facility] Comment on above: Order Comment: No: D o not add to previous draw Performed By: #### 0 0071 #### [facility] [address] [place] [address], [facility] Creatinine [Mass/Vol] 0.74 mg/dL Normal 0.60-1.20 [facility] Comment on above: Order Comment: No: D o not add to previous draw Performed By: #### 0 0071 #### [facility] [address] [place] [address], [facility] GFR/1.73 sq M predicted among blacks MDRD (S/P/Bld) [Vol rate/Area] mL/min/{1.73_m2} Normal >60 [facility] Comment on above: Order Comment: No: D o not add to previous draw Performed By: #### 0 0071 #### [facility] [address] [place] [address], [place] GFR/1.73 sq M predicted among non-blacks MDRD (S/P/Bld) [Vol rate/Area] mL/min/{1.73_m2} Normal >60 [facility] Comment on above: Order Comment: No: D o not add to previous draw Performed By: #### 0 0071 #### [facility] [address] [place] [address], [place] Glucose [Mass/Vol] 112 mg/dL High 70-100 [facility] Comment on above: Order Comment: No: D o not add to previous draw Performed By: #### 0 0071 #### [facility] [address] [place] [address], [place] Potassium [Moles/Vol] 4.3 mmol/L Normal 3.5-5.1 [facility] Comment on above: Order Comment: No: D o not add to previous draw Performed By: #### 0 0071 #### [facility] [address] [place] [address], [place] Sodium [Moles/Vol] 137 mmol/L Normal 136-145 [facility] Comment on above: Order Comment: No: D o not add to previous draw Performed By: #### 0 0071 #### [facility] [address] [place] [address], [place] Urea nitrogen [Mass/Vol] 20 mg/dL Normal 7-25 [facility] Comment on above: Order Comment: No: D o not add to previous draw Performed By: #### 0 0071 #### [facility] [address] [place] [address], [place] Calcium [Mass/Vol] 9.3 mg/dL Normal 8.6-10.3 [facility] Comment on above: Order Comment: No: D o not add to previous draw Performed By: #### 5 6101 #### [facility] [address] [place] [address], [place] Chloride [Moles/Vol] 103 mmol/L Normal 98-107 [facility] Comment on above: Order Comment: No: D o not add to previous draw Performed By: #### 5 6101 #### [facility] [address] [place] [address], [place] CO2 [Moles/Vol] 28 mmol/L Normal 21-31 The [facility] Comment on above: Order Comment: No: D o not add to previous draw Performed By: #### 5 6101 #### [facility] [address] [place] [address], [place] Creatinine [Mass/Vol] 0.62 mg/dL Normal 0.60-1.20 [facility] Comment on above: Order Comment: No: D o not add to previous draw Performed By: #### 5 6101 #### [facility] [address] [place] [address], [place] GFR/1.73 sq M predicted among blacks MDRD (S/P/Bld) [Vol rate/Area] mL/min/{1.73_m2} Normal >60 [facility] Comment on above: Order Comment: No: D o not add to previous draw Performed By: #### 5 6101 #### [facility] [address] [place] [address], [place] GFR/1.73 sq M predicted among non-blacks MDRD (S/P/Bld) [Vol rate/Area] mL/min/{1.73_m2} Normal >60 [facility] Comment on above: Order Comment: No: D o not add to previous draw Performed By: #### 5 6101 #### [facility] [address] [place] [address], [facility] Glucose [Mass/Vol] 117 mg/dL High 70-100 [facility] Comment on above: Order Comment: No: D o not add to previous draw Performed By: #### 5 6101 #### [facility] [address] [place] [address], [place] Potassium [Moles/Vol] 3.5 mmol/L Normal 3.5-5.1 [facility] Comment on above: Order Comment: No: D o not add to previous draw Performed By: #### 5 6101 #### [facility] [address] [place] [address], [place] Sodium [Moles/Vol] 140 mmol/L Normal 136-145 [facility] Comment on above: Order Comment: No: D o not add to previous draw Performed By: #### 5 6101 #### [facility] [address] [place] [address], [place] Urea nitrogen [Mass/Vol] 15 mg/dL Normal 7-25 [facility] Comment on above: Order Comment: No: D o not add to previous draw Performed By: #### 5 6101 #### [facility] [address] [place] [address], [facility] CBC COMPLETE BLOOD COUNTon 0 - Erythrocyte distribution width (RBC) [Ratio] 14.6 % Normal 11.5-15.0 [facility] Comment on above: Order Comment: No: D o not add to previous draw Performed By: #### 5 6101 #### [facility] [address] [place] [address], [place] Hematocrit (Bld) [Volume fraction] 42.1 % Normal 36.0-45.0 [facility] Comment on above: Order Comment: No: D o not add to previous draw Performed By: #### 5 6101 #### [facility] [address] Hemoglobin (Bld) [Mass/Vol] 13.4 g/dL Normal 12.0-15.0 [facility] Comment on above: Order Comment: No: D o not add to previous draw Performed By: #### 5 6101 #### [facility] [address] [place] [id number], [facility] MCH (RBC) [Entitic mass] 30.6 pg Normal 27.0-33.0 [facility] Comment on above: Order Comment: No: D o not add to previous draw Performed By: #### 5 6101 #### [facility] [address] [place] [address], [facility] MCHC (RBC) [Mass/Vol] 31.8 g/dL Low 32.0-35.0 [facility] Comment on above: Order Comment: No: D o not add to previous draw Performed By: #### 5 [id number] #### [facility] [address] [facility] [place] [address], [facility] MCV (RBC) [Entitic vol] 96.1 fL Normal 82.0-98.0 [facility] Comment on above: Order Comment: No: D o not add to previous draw Performed By: #### 5 [id number] #### [facility] [address] [facility] [place] [address], [facility] Nucleated RBC/100 WBC (Bld) [Ratio] 0 % Normal 0-0 [facility] Comment on above: Order Comment: No: D o not add to previous draw Performed By: #### 5 6101 #### [facility] [address] [facility] [place] [address], [facility] PLAT CNT 215 10*3/uL Normal 150-400 [facility] Comment on above: Order Comment: No: D o not add to previous draw Performed By: #### 5 6101 #### [facility] [address] [place] [address], [place] RBC (Bld) [#/Vol] 4.38 10*6/uL Normal 3.80-5.00 [facility] Comment on above: Order Comment: No: D o not add to previous draw Performed By: #### 5 6101 #### [facility] [address] [place] [address], [facility] WBC (Bld) [#/Vol] 8.75 10*3/uL Normal 4.00-10.60 [facility] Comment on above: Order Comment: No: D o not add to previous draw Performed By: #### 5 6101 #### [facility] [address] [facility]. [address] Cardiovascular Lab Reporton 01-30-2019 Cardiovascular Lab Report [facility] Patient Name: [facility] A MR #: [id number] Department of Physician: [facility] Tayler Gomez M.D. Division of Service Date: 01/29/2019 Cardiology Birthdate: 1950 Adult Cardiovascular Room #: 3AB [id number] [facility] [address] [place] [address] Cardiovascular Laboratory Report INDICATION: The patient is [...] signed informed consent. She was brought to cath lab tech in a fasting state. The right neck area was prepped and draped in usual fashion. Using ultrasound guidance and micropuncture technique, the internal jugular vein was accessed. A 6-Albanian x 11 cm sheath was placed. A 6-Albanian Caldera catheter was used for right heart catheterization with measurement of pressures and calculation of cardiac output using the estimated Nader method. The Caldera catheter was removed. Using ultrasound guidance and micropuncture technique, the right radial artery was accessed. A 6-Albanian x 11 cm Hydrophilic sheath was advanced. Verapamil was given through the sheath and a bolus of bivalirudin was given intravenously as the patient has prior history of heparin-induced thrombocytopenia. Note that, the care was taken to avoid any use of heparin during the procedure. Bilateral selective coronary angiography was then performed using 6-Albanian JL3.5 and JR5 diagnostic catheters. Catheters were removed. A 6-Albanian angled pigtail catheter was advanced over the [...] with 30% left ventricular ejection fraction. 3. [id number]-[id number] mitral regurgitation. 4. Severely elevated filling pressures. [...] Gomez M.D. Date Trans: 01/30/2019 07:50 A/ivan [id number] cc: Yahir Brothers M.D. [address] [address] Yahir Mijares M.D. [address] [address] Normal [facility] MAGNESIUM BLOODon 01-30-2019 Magnesium [Mass/Vol] 2.2 mg/dL Normal 1.9-2.7 [facility] Comment on above: Order Comment: No: D o not add to previous draw Performed By: #### 0 0071 #### [facility] [address] [place] [address], [facility] Magnesium [Mass/Vol] 2.2 mg/dL Normal 1.9-2.7 [facility] Comment on above: Order Comment: No: D o not add to previous draw Performed By: #### 5 [id number] #### [facility] [address] [place] [address], [place] POC GLUCOSE LABon 01-30-2019 Glucose [Mass/Vol] 107 mg/dL High 70-100 [facility] Comment on above: Performed By: #### 5 6101 #### [facility] [address] [place] [address], [place] Glucose [Mass/Vol] 125 mg/dL High 70-100 [facility] Comment on above: Performed By: #### 5 6101 #### [facility] [address] [facility] [address] Glucose [Mass/Vol] 137 mg/dL High 70-100 [facility] Comment on above: Performed By: #### 5 6101 #### [facility] [address] [facility]. [address] Glucose [Mass/Vol] 114 mg/dL High 70-100 [facility] Comment on above: Performed By: #### 5 [id number] #### [facility] [address] [facility]. [address] PROTHROMBIN TIMEon 9 INR Coag (PPP) [Relative time] 1.23 {INR} High 0.91-1.16 The [facility] Comment on above: Order Comment: [...] 1995;108:231S-246S. Performed By: #### 5 [id number] #### [facility] 3000 [facility]. [address] PT Coag (PPP) [Time] 15.5 s High 12.3-14.8 [facility] Comment on above: Order Comment: No: D o not add to previous draw Result Comment: ALL RESULTS MUST BE INTERPRETED WITH RESPECT TO BLOOD DRAWING ARTIFACT OR DILUTION ERROR OF ANTICOAGULANT AT THE TIME OF SAMPLING. Performed By: #### 5 [id number] #### [facility] [address] [facility]. [address] TSH3on 01-30-2019 TSH 3RD GENERATION 1.24 uIU/mL Normal 0.34-5.60 The [facility] Comment on above: Order Comment: No: D o not add to previous draw Performed By: #### 5 [id number] #### [facility] [address] [facility]. [address] CBC COMPLETE BLOOD COUNTon 0 01-29-2019 Erythrocyte distribution width (RBC) [Ratio] 14.7 % Normal 11.5-15.0 [facility] Comment on above: Order Comment: No: D o not add to previous draw Performed By: #### 5 0608 #### [facility] 3000 [facility]. [address] Hematocrit (Bld) [Volume fraction] 43.4 % Normal 36.0-45.0 [facility] Comment on above: Order Comment: No: D o not add to previous draw Performed By: #### 5 0608 #### [facility] [address] [facility] [place] [address], [facility] Hemoglobin (Bld) [Mass/Vol] 13.8 g/dL Normal 12.0-15.0 [facility] Comment on above: Order Comment: No: D o not add to previous draw Performed By: #### 5 0608 #### [facility] [address] [place] [address], [facility] MCH (RBC) [Entitic mass] 30.3 pg Normal 27.0-33.0 [facility] Comment on above: Order Comment: No: D o not add to previous draw Performed By: #### 5 0608 #### [facility] [address] [place] [address], [facility] MCHC (RBC) [Mass/Vol] 31.8 g/dL Low 32.0-35.0 [facility] Comment on above: Order Comment: No: D o not add to previous draw Performed By: #### 5 0608 #### [facility] [address] [place] [address], [facility] MCV (RBC) [Entitic vol] 95.2 fL Normal 82.0-98.0 [facility] Comment on above: Order Comment: No: D o not add to previous draw Performed By: #### 5 0608 #### [facility] [address] [facility] [place] [address], [facility] Nucleated RBC/100 WBC (Bld) [Ratio] 0 % Normal 0-0 [facility] Comment on above: Order Comment: No: D o not add to previous draw Performed By: #### 5 0608 #### [facility] [address] [facility] [address], [facility] PLAT CNT 240 10*3/uL Normal 150-400 The [facility] Comment on above: Order Comment: No: D o not add to previous draw Performed By: #### 5 0608 #### [facility] [address] [facility] [place] [address], [facility] RBC (Bld) [#/Vol] 4.56 10*6/uL Normal 3.80-5.00 [facility] Comment on above: Order Comment: No: D o not add to previous draw Performed By: #### 5 0608 #### [facility] [address] [place] [address], [facility] WBC (Bld) [#/Vol] 9.28 10*3/uL Normal 4.00-10.60 [facility] Comment on above: Order Comment: No: D o not add to previous draw Performed By: #### 5 0608 #### [facility] [address] [place] [address], [place] COMP METABOLIC PANELon 01-29 Albumin [Mass/Vol] 4.1 g/dL Normal 3.5-5.7 [facility] Comment on above: Order Comment: No: D o not add to previous draw Performed By: #### 1 0070, 21380, 33209 #### [facility] [address] [place] [address], [place] ALKALINE PHOSPH 50 IU/L Normal 34-104 [facility] Comment on above: Order Comment: No: D o not add to previous draw Performed By: #### 1 0, 01216, 63053 #### [facility] [address] [place] [address], [place] ALT [Catalytic activity/Vol] 14 U/L Normal 7-52 [facility] Comment on above: Order Comment: No: D o not add to previous draw Performed By: #### 1 0, 99209, 37928 #### [facility] [address] [place] [address], [place] AST [Catalytic activity/Vol] 15 U/L Normal 13-39 [facility] Comment on above: Order Comment: No: D o not add to previous draw Performed By: #### 1 0070, 17778, 60403 #### [facility] [address] [place] [address], [place] Bilirubin [Mass/Vol] 0.8 mg/dL Normal 0.3-1.0 [facility] Comment on above: Order Comment: No: D o not add to previous draw Performed By: #### 1 0070, 53909, 60254 #### [facility] [address] [place] [address], [place] Calcium [Mass/Vol] 9.6 mg/dL Normal 8.6-10.3 [facility] Comment on above: Order Comment: No: D o not add to previous draw Performed By: #### 1 0, 38644, 77250 #### [facility] [address] [place] [address], [place] Chloride [Moles/Vol] 103 mmol/L Normal 98-107 [facility] Comment on above: Order Comment: No: D o not add to previous draw Performed By: #### 1 0, , 94413 #### [facility] [address] [place] [address], [place] CO2 [Moles/Vol] 30 mmol/L Normal 21-31 The [facility] Comment on above: Order Comment: No: D o not add to previous draw Performed By: #### 1 0, 52147, 47705 #### [facility] [address] [place] [address], [place] Creatinine [Mass/Vol] 0.71 mg/dL Normal 0.60-1.20 [facility] Comment on above: Order Comment: No: D o not add to previous draw Performed By: #### 1 0, 26163, 66331 #### [facility] [address] [place] [address], [place] GFR/1.73 sq M predicted among blacks MDRD (S/P/Bld) [Vol rate/Area] mL/min/{1.73_m2} Normal >60 [facility] Comment on above: Order Comment: No: D o not add to previous draw Performed By: #### 1 0, 95757, 11978 #### [facility] [address] [place] [address], [place] GFR/1.73 sq M predicted among non-blacks MDRD (S/P/Bld) [Vol rate/Area] mL/min/{1.73_m2} Normal >60 [facility] Comment on above: Order Comment: No: D o not add to previous draw Performed By: #### 1 0, 08146, 99277 #### [facility] [address] [place] [address], [place] Glucose [Mass/Vol] 116 mg/dL High 70-100 [facility] Comment on above: Order Comment: No: D o not add to previous draw Performed By: #### 1 0, 38109, 26099 #### [facility] [address] [place] [address], [place] Potassium [Moles/Vol] 3.9 mmol/L Normal 3.5-5.1 [facility] Comment on above: Order Comment: No: D o not add to previous draw Performed By: #### 1 0, , 99684 #### [facility] [address] [place] [address], [place] Protein [Mass/Vol] 7.6 g/dL Normal 6.0-8.3 [facility] Comment on above: Order Comment: No: D o not add to previous draw Performed By: #### 1 0, , 98523 #### [facility] [address] [place] [address], [place] Sodium [Moles/Vol] 140 mmol/L Normal 136-145 [facility] Comment on above: Order Comment: No: D o not add to previous draw Performed By: #### 1 0, 55829, 80183 #### [facility] [address] [place] [address], [place] Urea nitrogen [Mass/Vol] 18 mg/dL Normal 7-25 [facility] Comment on above: Order Comment: No: D o not add to previous draw Performed By: #### 1 0, 66318, 91408 #### [facility] [address] [place] [address], [place] HEMOGLOBIN A1Con 01-29-2019 HbA1c (Bld) [Mass fraction] 6.1 % High 4.0-6.0 [facility] Comment on above: Order Comment: Yes: Add to Previous draw if able Performed By: #### 5 6101 #### [facility] [address] [place] [address], [place] HbA1c (Bld) [Mass fraction] 128 mg/dL High 70-126 [facility] Comment on above: Order Comment: Yes: Add to Previous draw if able Performed By: #### 5 6101 #### [facility] [address] [place] [address], [place] LIPID PROFILEon 01-29-2019 Cholesterol [Mass/Vol] 130 mg/dL Normal 120-200 [facility] Comment on above: Result Comment: CHOL ESTEROL REFERENCE RANGE: 20 YEARS AND OLDER CARDIOVASCULAR RISK Less than 200 mg/dl Low Risk 200 to 239 mg/dl Borderline Risk 240 mg/dl and greater High Risk Performed By: #### 1 0070, 31258, 98873 #### [facility] [address] [place] [address], [place] Cholesterol in HDL [Mass/Vol] 31 mg/dL Normal 23-92 [facility] Comment on above: Result Comment: Slig ht variation in normal range could be due to gender and/or age. HDL CHOLESTEROL REFERENCE RANGE: 20 years and older Cardiovascular Risk > or =60 mg/dL Desirable 40 TO 59 mg/dL Low Risk <40 mg/dL High Risk Performed By: #### 1 0070, 15715, 74073 #### [facility] [address] [place] [address], [place] Cholesterol in LDL [Mass/Vol] 67 mg/dL Normal 0-130 [facility] Comment on above: Result Comment: LDL IS A CALCULATION LDL IS ONLY VALID IF THE TRIG IS LESS THAN 400. Performed By: #### 1 0, 90897, 21406 #### [facility] [address] [place] [address], [place] Cholesterol.total/C holesterol in HDL [Mass ratio] 4.2 {ratio} Normal .0-4.5 [facility] Comment on above: Performed By: #### 1 0, 62552, 83157 #### [facility] [address] [place] [address], [facility] NON-HDL CHOLESTEROL 99 mg/dL Normal [facility] Comment on above: Performed By: #### 1 0, , 30743 #### [facility] [address] [place] [address], [facility] Triglyceride [Mass/Vol] 158 mg/dL High 40-149 [facility] Comment on above: Result Comment: TRIG LYCERIDE REFERENCE RANGE: 20 YEARS AND OLDER CARDIOVASCULAR RISK LESS THAN 150 mg/dl LOW RISK 150 TO 199 mg/dl BORDERLINE RISK 200 mg/dl AND GREATER HIGH RISK Performed By: #### 1 0, , 69667 #### [facility] [address] [place] [address], [facility] VLDL CHOL 32 mg/dL Normal 0-40 [facility] Comment on above: Performed By: #### 1 0, 89662, 31345 #### [facility] [address] [place] [address], [facility] MAGNESIUM BLOODon 01-29-2019 Magnesium [Mass/Vol] 2.2 mg/dL Normal 1.9-2.7 [facility] Comment on above: Order Comment: No: D o not add to previous draw Performed By: #### 1 0, 52131, 33123 #### [facility] [address] [place] [address], [facility] POC GLUCOSE LABon 01-29-2019 Glucose [Mass/Vol] 102 mg/dL High 70-100 [facility] Comment on above: Performed By: #### 8 5499 #### [facility] [address] [place] [address], [place] Glucose [Mass/Vol] 131 mg/dL High 70-100 [facility] Comment on above: Performed By: #### 8 5499 #### [facility] [address] PROTHROMBIN TIMEon 9 INR Coag (PPP) [Relative time] 1.39 {INR} High 0.91-1.16 [facility] Comment on above: Order Comment: Yes: [...] 1995;108:231S-246S. Performed By: #### 5 6101 #### [facility] [address] [facility]. [address] PT Coag (PPP) [Time] 17.1 s High 12.3-14.8 [facility] Comment on above: Order Comment: Yes: Add to Previous draw if able Result Comment: ALL RESULTS MUST BE INTERPRETED WITH RESPECT TO BLOOD DRAWING ARTIFACT OR DILUTION ERROR OF ANTICOAGULANT AT THE TIME OF SAMPLING. Performed By: #### 5 6101 #### [facility] [address] BASIC METABOLIC PANELon Calcium [Mass/Vol] 10.1 mg/dL Normal 8.6-10.3 [facility] Comment on above: Performed By: #### 0 0071 #### [facility] [address] [place] [address], [facility] Chloride [Moles/Vol] 100 mmol/L Normal 98-107 [facility] Comment on above: Performed By: #### 0 0071 #### [facility] [address] [place] [address], [place] CO2 [Moles/Vol] 30 mmol/L Normal 21-31 The [facility] Comment on above: Performed By: #### 0 0071 #### [facility] [address] [place] [address], [place] Creatinine [Mass/Vol] 0.71 mg/dL Normal 0.60-1.20 [facility] Comment on above: Performed By: #### 0 0071 #### [facility] [address] [place] [address], [place] GFR/1.73 sq M predicted among blacks MDRD (S/P/Bld) [Vol rate/Area] mL/min/{1.73_m2} Normal >60 [facility] Comment on above: Performed By: #### 0 0071 #### [facility] [address] [facility] [place] [address], [place] GFR/1.73 sq M predicted among non-blacks MDRD (S/P/Bld) [Vol rate/Area] mL/min/{1.73_m2} Normal >60 [facility] Comment on above: Performed By: #### 0 0071 #### [facility] [address] [place] [address], [place] Glucose [Mass/Vol] 93 mg/dL Normal 70-100 [facility] Comment on above: Performed By: #### 0 0071 #### [facility] [address] [place] [address], [facility] Potassium [Moles/Vol] 3.7 mmol/L Normal 3.5-5.1 [facility] Comment on above: Performed By: #### 0 0071 #### [facility] [address] [place] [id number], [facility] Sodium [Moles/Vol] 139 mmol/L Normal 136-145 [facility] Comment on above: Performed By: #### 0 0071 #### [facility] [address] [place] [address], [facility] Urea nitrogen [Mass/Vol] 16 mg/dL Normal 7-25 [facility] Comment on above: Performed By: #### 0 1 #### [facility] [address] [facility]. [address] CBC COMPLETE BLOOD COUNTon 0 01-22-2019 Erythrocyte distribution width (RBC) [Ratio] 14.9 % Normal 11.5-15.0 [facility] Comment on above: Performed By: #### 5 0608 #### [facility] [address] [facility] [place] [address], [facility] Hematocrit (Bld) [Volume fraction] 43.0 % Normal 36.0-45.0 [facility] Comment on above: Performed By: #### 5 0608 #### [facility] [address] [facility] [place] [address], [facility] Hemoglobin (Bld) [Mass/Vol] 13.7 g/dL Normal 12.0-15.0 [facility] Comment on above: Performed By: #### 5 0608 #### [facility] [address] [facility] [place] [address], [facility] MCH (RBC) [Entitic mass] 30.0 pg Normal 27.0-33.0 [facility] Comment on above: Performed By: #### 5 0608 #### [facility] [address] MCHC (RBC) [Mass/Vol] 31.9 g/dL Low 32.0-35.0 [facility] Comment on above: Performed By: #### 5 0608 #### [facility] [address] [place] [address], [facility] MCV (RBC) [Entitic vol] 94.3 fL Normal 82.0-98.0 [facility] Comment on above: Performed By: #### 5 0608 #### [facility] [address] Nucleated RBC/100 WBC (Bld) [Ratio] 0 % Normal 0-0 [facility] Comment on above: Performed By: #### 5 0608 #### [facility] [address] PLAT CNT 270 10*3/uL Normal 150-400 [facility] Comment on above: Performed By: #### 5 0608 #### [facility] [address] [facility] [place] [address], [facility] RBC (Bld) [#/Vol] 4.56 10*6/uL Normal 3.80-5.00 [facility] Comment on above: Performed By: #### 5 0608 #### [facility] [address] [facility] [place] [address], [facility] WBC (Bld) [#/Vol] 9.44 10*3/uL Normal 4.00-10.60 [facility] Comment on above: Performed By: #### 5 0608 #### [facility] [address] PROTHROMBIN TIMEon 9 INR Coag (PPP) [Relative time] 1.85 {INR} High 0.91-1.16 [facility] Comment on above: Result Comment: ACCC [...] 1995;108:231S-246S. Performed By: #### 5 6101 #### [facility] [address] PT Coag (PPP) [Time] 21.4 s High 12.3-14.8 [facility] Comment on above: Result Comment: ALL RESULTS MUST BE INTERPRETED WITH RESPECT TO BLOOD DRAWING ARTIFACT OR DILUTION ERROR OF ANTICOAGULANT AT THE TIME OF SAMPLING. Performed By: #### 5 6101 #### [facility] [address] Encounters Encounter Date Encounter Type Care Provider Facility Start: 01-23-2024 End: 01-23-2024 ambulatory ANITA [facility] Start: 01-11-2024 End: 01-11-2024 ambulatory ANITA [facility] Start: 12-31-2023 End: 12-31-2023 ambulatory YAHIR BROTHERS [facility] Start: 12-26-2023 End: 12-29-2023 Evaluation and management of inpatient COLIN Zina KEITH [facility] Start: 12-25-2023 End: 12-29-2023 Evaluation and management of inpatient BIJAL Vincent BARNHART [facility] Start: 12-21-2023 End: 12-29-2023 Orders Only Korina Oliver MD Work Phone: [facility] Start: 12-20-2023 End: 12-29-2023 Emergency department patient visit [facility] Start: 12-20-2023 End: 12-29-2023 Emergency department patient visit DANAE BRITTON [facility] Start: 12-20-2023 End: 12-28-2023 Evaluation and management of inpatient [facility] Start: 11-01-2023 End: 11-01-2023 ambulatory EBER TRES [facility] Start: 10-31-2023 End: 10-31-2023 ambulatory YAHIR BROTHERS Not Available Start: 09-05-2023 End: 09-05-2023 ambulatory YAHIR BROTHERS Not Available Start: 07-07-2023 End: 07-10-2023 ambulatory YAHIR BROTHERS Not Available Start: 05-23-2023 End: 05-23-2023 ambulatory [facility] Start: 03-02-2023 End: 03-03-[address] DOCTOR LOYOLA Facility:[facility] Start: 02-19-2023 End: 02-[facility] Start: 12-27-2022 End: 12-28-[address] YAHIR BROTHERS Facility:[facility] Start: 05-17-2022 End: 05-18-[address] YAHIR BROTHERS Facility:[facility] Start: 01-29-2019 End: 02-02-2019 Evaluation and management of inpatient YAHIR BROTHERS Facility:[facility] Procedures Date Procedure Procedure [...] Td Vaccines (2 - Td or Tdap) [facility] Start: 12-20-2024 Adult BMI Screening Adult BMI Screen ing [facility] Start: 12-20-2024 Tobacco Screening Tobacco Screening [facility] Start: 06-22-2023 COVID-19 Vaccine ( season) COVID-19 Vaccine ( season) [facility] Start: 2017 Fall Risk Screening Fall Risk Screen ing [facility] Start: 1970 Adult BMI Follow Up Plan Adult BMI Follow Up Plan [facility] Start: 1964 Depression Screening Depression Scre ening [facility] Start: 1952 Medicare Annual Wellness Visit Medicare Annual Wellness Visit [facility] Immunizations Immunization Date Immunization Notes Care Provider Fa cility 02-04-2021 COVID-19, mRNA, LNP- S, PF, 100mcg/0.5mL Dose Korina Oliver MD Work Phone: [facility] 01-07-2021 COVID-19, mRNA, LNP- S, PF, 100mcg/0.5mL Dose Korina Oliver MD Work Phone: [facility] 08-03-2019 pneumococcal conjuga te vaccine, 13 valent Korina Oliver MD Work Phone: [facility] Payers Date Payer Category Payer Unknown [employer] [id number] 2022-Present [phone] [address] [place] [address] [id number] 1959 Unknown [id number] 1959 Unknown [id number] 1952 Unknown [id number] [id number]7 1952 Unknown [id number] 2.16.840.1.747868.3.579.2.593 1952 Unknown [id number] 2.16.840.1.514867.3.579.2.593 1952 Unknown [id number] 2.16.840.1.016854.3.579.2.593 1952 Unknown [id number] 2.16.840.1.296296.3.579.2.1286 1952 Unknown [id number] 2.16.840.1.488548.3.579.2.1286 1952 Unknown [id number] 2.16.840.1.964214.3.579.2.1286 1952 Unknown [id number] 2.16.840.1.117435.3.579.2.1286 1952 Unknown [id number] 2.16.840.1.850644.3.579.2.1286 1952 Unknown [id number] 2.16.840.1.865909.3.579.2.1286 1952 Unknown [id number] 2.16.840.1.852392.3.579.2.1286 1952 Unknown [id number] 2.16.840.1.147211.3.579.2.1286 1952 Unknown [id number] 2.16.840.1.633299.3.579.2.1286 1952 Unknown [id number] 2.16.840.1.315204.3.579.2.1259 1952 Unknown [id number] 2.16.840.1.488056.3.579.2.1259 1952 Unknown [id number] 2.16.840.1.358669.3.579.2.1259 1952 Unknown [id number] 2.16.840.1.094221.3.579.2.1286 Medicare [id number] Social History Date Type Detail Facility Start: 12-20-2023 Tobacco smoking stat us NHIS [facility] End: 03-11-2002 History of tobacco use [facility] End: 03-11-2002 History of tobacco use [facility] Start: 12-02-2020 End: 12-20-2023 Cigarettes smoked current (pack per day) - Reported 1 [employer] Start: 12-20-2023 Tobacco use and exposure Smoke less tobacco [facility]-user [facility] Start: 12-21-2023 Alcohol intake [facility] Start: 12-02-2020 End: 12-20-2023 [employer] [facility] Has the [employer], or [employer] threatened to shut off services in your home in past 12Mo No [employer] In the past 12 month s, has lack of transportation kept you from medical appointments or from getting medications? No [employer] Start: 12-20-2023 Tobacco Comment quit 17 years ago Pr [employer] Start: 1950 Sex Assigned At Not on file P [employer] Goals Date Patient Goal Desired Activity /State [...] Past Medical History: Diagnosis Date Atrial fibrillation ([facility]) CHF (congestive heart failure) ([facility]) Hypertension Pulmonary embolism ([facility]) Past Surgical History: Past Surgical History: [...] on file Intimate Partner Violence: Unknown (12/13/2023) [place] Safety & Environment Fear of Current or [...] 2 ) G (more content not included)... [facility] Progress note 01-11-2024 Note Date & [...] today she has been residing at a fdc facility. Her son was present via telephone [...] Atrial fibrillation (CMS/HCC) CHF (congestive heart failure) ([facility]/HCC) Hypertension Pulmonary embolism (CMS/[facility]) Past Surgical History: Past Surgical History: [...] kg (304 lb) (more content not included)... [facility] Progress note 11-01-2023 Note Date & Type Note Facility 11-01-2023 Note [facility] SUBJECTIVE Chief Complaint Patient presents with Atrial Fibrillation Congestive Heart Failure Afia Gill is a 73 y.o. female here for follow-up. HPI Hx: *Atrial fibrillation *NSVT *Systolic heart failure *Pulmonary embolism in 2004 status post left total knee arthroplasty. *Heparin-induced thrombocytopenia. *Pulmonary hypertension by echocardiogram. *Obstructive sleep apnea, on CPAP. *Status post Lottie filter. *Morbid obesity. *Continuous oxygen. *Abnormal stress [...] CHF (congestive heart failure), NYHA class 4 ([facility]/HCC) Other chronic pain Past Medical History: Diagnosis Date Atrial fibrillation (CMS/HCC) CHF (congestive heart failure) (CMS/HCC) Hypertension Pulmonary embolism ([facility]/HCC) Family History Problem Relation Name Age of [...] Disp: , Rfl (more content not included)... [facility] Progress note 11-01-2023 Note Date & [...] All other systems reviewed and are negative. [facility] Progress note 05-23-2023 Note Date & Type Note Facility 05-23-2023 Note [facility] Subjective Afia Gill is a [...] Obstructive sleep apnea, on CPAP. Status post Lottie filter. Morbid obesity. She is currently on [...] filling pressures. She (more content not included)... [facility] Progress note 02-19-2023 Note Date & [...] All other systems reviewed and are negative. [facility] Progress note 02-19-2023 Note Date & [...] Obstructive sleep apnea, on CPAP. Status post Lottie filter. Morbid obesity. She is currently on oxygen since December 20, 2018. Holter done to investigate palpitations showed atrial fibrillation with NSVT. Stress test 01/13/2019;1. Fixed versus minimally reversible perfusion defect of the anterior septal wall and apex. 2. Marked cardiomegaly and markedly low ejection fraction, 36%. 3. Dyskinesia of the apex with otherwise global moderate hypokinesis. Echocardiogram 2 (more content not included)... [facility] Instructions Note Date & Type Note [...] 9:14 PM Hospital Course Note MR#: [id number] [facility] Pt. Name: Afia Gill Admitted: 01/29/2019 [...] and content) DATE CREATED AUTHOR 06/17/2019 [facility] DATE CREATED AUTHOR AUTHOR'S ORGANIZ ATION 03/03/2023 [facility] DATE CREATED AUTHOR AUTHOR'S ORGANIZ ATION 12/29/2023 [facility] DATE CREATED AUTHOR AUTHOR'S ORGANIZ ATION 12/29/2023 [facility] DATE CREATED AUTHOR AUTHOR'S ORGANIZ ATION 12/31/2023 [facility] DATE CREATED AUTHOR AUTHOR'S ORGANIZ ATION 01/24/2024 [facility] Care Teams (unrecognized sec tion and content) Supervisory Civil Engineer Relationship Specialty Start Date End Date Yahir Brothers MD [address] [facility] [address] [place] [id number] PCP - General Internal Medicine 12/20/23 FOR [...] BE BASED ON THE PRIMARY CLINICAL RECORDS. [email or web address] provides no warranty or guarantee of the accuracy or completeness of information in this document.
[2024-01-30 12:33] LABS: INR 1.27; Prothrombin Time 13.3 sec (9.0-11.6)
== END 2024-01-30 06:07 | disposition home or self-care (01) ==
LOC: LAB 06:06
PROVIDERS: PCP Internal Medicine; Visit Provider Nurse Practitioner Family
DX: I48.91 Unspecified atrial fibrillation (principal)
CPT/HCPCS: 36415; 85610

== ENCOUNTER 2024-02-01 02:43 | Outpatient (REF) | payer MEDICARE, SELFPAY ==
--- OUTSIDE RECORDS SUMMARY | 2024-02-01 02:55 | XMS_ITS | CCD ---
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 Care Page Designer Name Role Phone YAHIR BROTHERS Referring Unavailable [...] ANDREA, DR GAO Admitting Unavailable ANDREA, DR GOA Attending Unavailable ANDREA, DR GAO Primary Care Unavailable ANDREA, DR GAO Consulting Unavailable BRIDGEWATER, DR JEANETTE Armenta Consulting Unavailable Yahir Brothers MD Primary Care Provider [phone] RAND CRAWFORD Attending Unavailable YAHIR BROTHERS Primary Care Unavailable KORINA OLIVER Admitting Unavailable DANIEL BIRMINGHAM Consulting Unavailable DIVISION OF INFECTIOUS DISEASE, [facility] Consulting Unavailable YAYA KUMAR Consulting Unavailable [...] (1 source) Estrogens Drug Allergy 9 [facility] Repository (1 source) heparin Drug Allergy 9 [facility] Rep[facility] (2 sources) Penicillins; Translations: [PENICILLINS] Drug allergy (disorder) 9 [facility] (2 sources) pregabalin Drug Allergy 9 [facility] Rep[facility] (6 sources) Bleach (Sodium Hypochlorite); Translations: [Bleach (Sodium Hypochlorite)] Propensity to adverse reactions (disorder) 9 [facility] Rep[facility] (4 sources) Aztreonam; Translations: [ESTROGENS, CONJUGATED] Drug Allergy 9 [facility] Repository (1 source) heparin Drug Allergy [facility] (5 sources) Penicillin; Translations: [PENICILLIN] Drug Allergy 9 [facility] Rep[facility] (1 source) Misc-ENV; Translations: [Misc-ENV] Propensity to adverse reactions (disorder) [facility] (1 source) Estrogens, Conjugated (LONG TERM) Drug Allergy 9 [facility] (4 sources) heparin; Translations: [HEPARIN (PORCINE)] Drug Allergy 9 [facility] (4 sources) pregabalin; Translations: [PREGABALIN] Drug Allergy [facility] (3 sources) Other; Translations: [OTHER] Propensity to adverse reactions 1 [facility] (1 source) heparin; Translations: [HEPARIN SODIUM, PORCINE] Drug Allergy 1 [facility] Repository Medications Completed/Discontinued Medications Medication Drug [...] [Essential (primary) hypertension] Onset: 02-19-2023 12-21-2023 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 The patient has persistent leukocytosis. 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 The facility is reporting that she is not exhibiting any signs of cellulitis. At this point in time, it is not felt that the leukocytosis is secondary to the osteomyelitis. It would instead be recommended that the patient be seen by podiatry as soon as possible to ensure that no further surgical intervention is necessary at this time. We could also refer the patient to hematology for further evaluation of leukocytosis if the patient is agreeable, as it does appear she has had persistent leukocytosis even dating back to 2019. If the patient would like, I could enter the referral today. Otherwise, it does not appear that there are any current signs or symptoms of infection. [facility] 36 Call from Simran rodriguez that pt's wbc remains elevated. Explained to nurse to have pt follow up with Podiatry. Raysa will call for an appt today. [facility] Telephoneon 01-30-2024 Telephone [phone] Maximo Gill 1950 F Date Provider Department Center 01/30/2024 ANITA JONES [facility] Family History Problem Relation Age of Onset Heart attack Father Diabetes Father Hypertension Father Coronary artery disease Father Rheum arthritis Father Family Status - Relation Status Age at Father [facility] 01-25-2024 36 The patient is exhibiting leukocytosis based on labs obtained earlier today and available under Media. Can you contact her SNF to see if she is having any new or recurrent signs or symptoms of infection? [facility] Telephoneon 01-25-2024 Telephone [id number] Maximo Gill 1950 F Date Provider Department Center 01/25/2024 [facility] History Problem Relation Age of Onset Heart attack Father Diabetes Father Hypertension Father Coronary artery disease Father Rheum arthritis Father Family Status - Relation Status Age at Father [facility] 36on 01-23-2024 36 Message left for gilmer se Ugalde at the SNF that pt may end treatment 01/30 as scheduled and may have her picc line removed. [facility] Follow-Upon 01-23-2024 Follow-Up [id number] Maximo Gill tiffanie A 1950 F Date Provider Department Center 01/23/2024 ANITA JONES [facility] Family History Problem Relation Age of Onset Heart attack Father Diabetes Father Hypertension Father Coronary artery disease Father Rheum arthritis Father Family Status - Relation Status Age at Father Level of Service:45309 [place] OFFICE/OUTPATIENT ESTABLISHED MOD MDM 30 MIN Reason for Visit and Comments: Follow-up [710412] - Pt is here for evaluation of [...] and walk which were both difficult before. [facility] 36on 01-22-2024 36 I attempted to call [facility] to get an updated copy of this patient's labs, but the phone rang through without an answer. The patient is following up tomorrow. [facility] Telephoneon 01-22-2024 Telephone [id number] Casa,Sha tiffanie Elena 1950 F Date Provider Department Center 01/22/2024 ANITA JONES [facility] Family History Problem Relation Age of Onset Heart attack Father Diabetes Father Hypertension Father Coronary artery disease Father Rheum arthritis Father Family Status - Relation Status Age at Father [facility] Follow-Upon 01-11-2024 Follow-Up [id number] CasaMaximo Elena 1950 F Date Provider Department Center 01/11/2024 ANITA JONES [facility] Family History Problem Relation Age of Onset Heart attack Father Diabetes Father Hypertension Father Coronary artery disease Father Rheum arthritis Father Family Status - Relation Status Age at Father Level of Service:63568 [place] OFFICE/OUTPATIENT ESTABLISHED MOD MDM 30 MIN Reason for Visit and Comments: PPD Read [901950] - Follow up Toes feel better Normal [facility] 36on 01-09-2024 36 Opat received. Call to [facility] and confirmed orders. Labs will be drawn 01/09. Staff was not aware of the appt today so the visit is rescheduled for 01/10. Normal [facility] CBC AND AUTO DIFFon 12-28-19 24 ABSOLUTE BASOPHIL 0.1 X10E9/L Normal 0.0-0.2 [facility] Comment on above: Performed By: #### U A #### [facility] ([id number]) [address] [place] [address] 54797 ABSOLUTE NEUTROPHIL 9.5 X10E9/L High 1.5-6.6 [facility] Comment on above: Performed By: #### U A #### [facility] ([id number]) [address] [place] [address] 33528 Basophils/100 WBC (Bld) 0.5 % Normal [facility] Comment on above: Performed By: #### U A #### [facility] ([id number]) [address] [place] [address] 05816 Eosinophils (Bld) [#/Vol] 0.8 10*3/uL High 0.0-0.4 [facility] Comment on above: Performed By: #### U A #### [facility] ([id number]) [address] [place] [address] 64884 Eosinophils/100 WBC (Bld) 5.8 % Normal [facility] Comment on above: Performed By: #### U A #### [facility] ([id number]) [address] [place] [address] 51054 Erythrocyte distribution width (RBC) [Ratio] 13.6 % Normal 11.5-15.0 [facility] Comment on above: Performed By: #### U A #### [facility] ([id number]) [address] [place] [address] 72678 Hematocrit (Bld) [Volume fraction] 35.5 % Normal 35-47 [facility] Comment on above: Performed By: #### U A #### [facility] ([id number]) [address] [place] [address] 90898 Hemoglobin (Bld) [Mass/Vol] 11.9 g/dL Normal 11.7-15.5 [facility] Comment on above: Performed By: #### U A #### [facility] ([id number]) [address] [place] [address] 84294 Lymphocytes (Bld) [#/Vol] 2.6 10*3/uL Normal 1.0-3.5 [facility] Comment on above: Performed By: #### U A #### [facility] ([id number]) [address] [place] [address] 78500 Lymphocytes/100 WBC (Bld) 19.1 % Normal [facility] Comment on above: Performed By: #### U A #### [facility] ([id number]) [address] [place] [address] 28883 MCH (RBC) [Entitic mass] 28.7 pg Normal 27-34 [facility] Comment on above: Performed By: #### U A #### [facility] ([id number]) [address] [place] [address] 82603 MCHC (RBC) [Mass/Vol] 33.4 g/dL Normal 32-36 [facility] Comment on above: Performed By: #### U A #### [facility] ([id number]) [address] [place] [address] 95143 MCV (RBC) [Entitic vol] 86 fL Normal 80-100 [facility] Comment on above: Performed By: #### U A #### [facility] ([id number]) [address] [place] [address] 82536 Monocytes (Bld) [#/Vol] 0.7 10*3/uL Normal 0-0.9 [facility] Comment on above: Performed By: #### U A #### [facility] ([id number]) [address] [place] [address] 21414 Monocytes/100 WBC (Bld) 5.3 % Normal [facility] Comment on above: Performed By: #### U A #### [facility] ([id number]) [address] [place] [address] 13685 Neutrophils/100 WBC (Bld) 69.3 % Normal [facility] Comment on above: Performed By: #### U A #### [facility] ([id number]) [address] [place] [address] 89273 Platelet mean volume (Bld) [Entitic vol] 8.7 fL Normal 7-12 [facility] Comment on above: Performed By: #### U A #### [facility] ([id number]) [address] [place] [address] 39432 Platelets (Bld) [#/Vol] 335 10*3/uL Normal 150-450 [facility] Comment on above: Performed By: #### U A #### [facility] ([id number]) [address] [place] [address] 09826 RBC COUNT 4.13 X10E12/L Normal 3.80-5.20 [facility] Comment on above: Performed By: #### U A #### [facility] ([id number]) [address] [place] [address] 31940 WBC (Bld) [#/Vol] 13.7 10*3/uL High 4.0-11.0 [facility] Comment on above: Performed By: #### U A #### [facility] ([id number]) [address] [place] [address] [place] [address] COMPREHENSIVE METABOLIC PANE Tyrone 12-28-2023 Albumin [Mass/Vol] 3.1 g/dL Low 3.2-5.3 [facility] Comment on above: Performed By: #### U A #### [facility] ([id number]) [address] [place] [address] [place] [address] ALP [Catalytic activity/Vol] 68 U/L Normal 39-130 [facility] Comment on above: Performed By: #### U A #### [facility] ([id number]) [address] [place] [address] 21956 ALT [Catalytic activity/Vol] 21 U/L Normal 0-31 [facility] Comment on above: Performed By: #### U A #### [facility] ([id number]) [address] [place] [address] 48941 Anion gap [Moles/Vol] 10 mmol/L Normal 5-15 [facility] Comment on above: Performed By: #### U A #### [facility] ([id number]) [address] [place] [address] 70154 AST [Catalytic activity/Vol] 21 U/L Normal 0-41 [facility] Comment on above: Performed By: #### U A #### [facility] ([id number]) [address] [place] [address] [place] [address] Bilirubin [Mass/Vol] 0.4 mg/dL Normal 0.3-1.2 [facility] Comment on above: Performed By: #### U A #### [facility] ([id number]) [address] [place] [address] 73650 Calcium [Mass/Vol] 8.6 mg/dL Normal 8.5-10.5 [facility] Comment on above: Performed By: #### U A #### [facility] ([id number]) [address] [place] [address] 19127 Chloride [Moles/Vol] 98 mmol/L Normal 98-109 [facility] Comment on above: Performed By: #### U A #### [facility] ([id number]) [address] [place] [address] 06824 CO2 [Moles/Vol] 31 mmol/L Normal 22-32 [facility] Comment on above: Performed By: #### U A #### [facility] ([id number]) [address] [place] [address] 25352 Creatinine [Mass/Vol] 0.72 mg/dL Normal 0.40-1.00 [facility] Comment on above: Result Comment: METH OD TRACEABLE TO IDMS STANDARD Performed By: #### U A #### [facility] ([id number]) [address] [place] [address] 55555 GFR/1.73 sq M.predicted among non-blacks MDRD (S/P/Bld) [Vol rate/Area] 89 mL/min/{1.73_m2} Normal >59 [facility] Comment on above: Result Comment: Reported eGFR is based on the CKD-EPI 2020 equation that does not use a race coefficient. Performed By: #### U A #### [facility] ([id number]) [address] [place] [address] 64422 Glucose [Mass/Vol] 123 mg/dL High 65-99 [facility] Comment on above: Performed By: #### U A #### [facility] ([id number]) [address] [place] [address] 20312 Potassium [Moles/Vol] 3.7 mmol/L Normal 3.5-5.0 [facility] Comment on above: Performed By: #### U A #### [facility] ([id number]) [address] [place] [address] 02444 Protein [Mass/Vol] 7.1 g/dL Normal 6.0-8.0 [facility] Comment on above: Performed By: #### U A #### [facility] ([id number]) [address] [place] [address] 23509 Sodium [Moles/Vol] 139 mmol/L Normal 134-146 [facility] Comment on above: Performed By: #### U A #### [facility] ([id number]) [address] [place] [address] 77031 Urea nitrogen [Mass/Vol] 16 mg/dL Normal 5-27 [facility] Comment on above: Performed By: #### U A #### [facility] ([id number]) [address] [place] [address] 45786 MAGNESIUMon 12-28-2023 Magnesium [Mass/Vol] 2.3 mg/dL Normal 1.8-2.6 [facility] Comment on above: Performed By: #### U A #### [facility] ([id number]) [address] [place] [address] 25707 PROTIME AND INRon 12-28-2023 INR Coag (PPP) [Relative time] 2.5 {INR} High 0.8-1.1 [facility] Comment on above: Performed By: #### U A #### [facility] ([id number]) [address] [place] [address] 67483 PT Coag (PPP) [Time] 28.0 s High 9.8-13.2 [facility] Comment on above: Result Comment: NEW REFERENCE RANGE Performed By: #### U A #### [facility] ([id number]) [address] [place] [address] 35145 Vancomycin trough [Mass/Vol] on 03-08-2024 VANCOMYCIN TROUGH 26.7 ug/mL Critically high 5.0-20.0 Pr [facility] Comment on above: Performed By: #### U A #### [facility] ([id number]) [address] [place] [address] 87588 CBC AND AUTO DIFFon 12-27-19 24 ABSOLUTE BASOPHIL 0.0 X10E9/L Normal 0.0-0.2 [facility] Comment on above: Performed By: #### Chanel ERICKSON CMP, 1986-02 #### [facility] ([id number]) [address] [place] [address] 28029 #### [id number] #### [facility] ([id number]) [address] [place] [address] ABSOLUTE NEUTROPHIL 8.9 X10E9/L High 1.5-6.6 [facility] Comment on above: Performed By: #### Chanel ERICKSON [facility], 1986-02 #### [facility] ([id number]) [address] [place] [address] 53512 #### [id number] #### [facility] ([id number]) [address], [address] [place] [address] Basophils/100 WBC (Bld) 0.3 % Normal [facility] Comment on above: Performed By: #### Chanel ERICKSON CMP, 1988-02 #### [facility] ([id number]) [address] [place] [address] 72383 #### 44787-8 #### [facility] ([id number]) [address] [place] [address] Eosinophils (Bld) [#/Vol] 0.8 10*3/uL High 0.0-0.4 [facility] Comment on above: Performed By: #### Chanel ERICKSNO CMP, 1988-02 #### [facility] ([id number]) [address] [place] [address] 58988 #### [id number] #### [facility] ([id number]) [address] [place] [address] Eosinophils/100 WBC (Bld) 6.1 % Normal [facility] Comment on above: Performed By: #### Chanel ERICKSON CMP, 1986-02 #### [facility] ([id number]) [address] [place] [address] 27993 #### [id number] #### [facility] ([id number]) [address] [address] [address] [place] [address] Erythrocyte distribution width (RBC) [Ratio] 13.7 % Normal 11.5-15.0 [facility] Comment on above: Performed By: #### Chanel ERICKSON CMP, 1988-02 #### [facility] ([id number]) [address] [place] [address] 65110 #### [id number] #### [facility] ([id number]) [address] [facility] [address] [address] [place] [address] Hematocrit (Bld) [Volume fraction] 34.5 % Low 35-47 [facility] Comment on above: Performed By: #### hCanel ERICKSON CMP, 1988-02 #### [facility] ([id number]) [address] [place] [address] 51570 #### 02458-3 #### [facility] ([id number]) [address] [facility] [address] [address] [place] [address] Hemoglobin (Bld) [Mass/Vol] 11.5 g/dL Low 11.7-15.5 [facility] Comment on above: Performed By: #### Chanel ERICKSON CMP, 1988-02 #### [facility] ([id number]) [address] [place] [address] 25579 #### 59055-2 #### [facility] ([id number]) [address] [place] [address] Lymphocytes (Bld) [#/Vol] 2.4 10*3/uL Normal 1.0-3.5 [facility] Comment on above: Performed By: #### Chanel ERICKSON CMP, 1988-02 #### [facility] ([id number]) [address] [place] [address] 61367 #### [id number] #### [facility] ([id number]) [address] [facility], [address] [place] [address] Lymphocytes/100 WBC (Bld) 18.4 % Normal [facility] Comment on above: Performed By: #### Chanel ERICKSON CMP, 1988-02 #### [facility] ([id number]) [address] [place], [place] [address] #### [id number] #### [facility] ([id number]) [address] [facility], [address] [place] [address] MCH (RBC) [Entitic mass] 28.8 pg Normal 27-34 [facility] Comment on above: Performed By: #### Chanel ERICKSON CMP, 1988-02 #### [facility] ([id number]) [address] [place] [address] 73336 #### 10959-5 #### [facility] ([id number]) [address] [place] [address] MCHC (RBC) [Mass/Vol] 33.3 g/dL Normal 32-36 [facility] Comment on above: Performed By: #### Chanel ERICKSON CMP, 1988-02 #### [facility] ([id number]) [address] [place] [address] 21497 #### 15203-8 #### [facility] ([id number]) [address] [place] [address] MCV (RBC) [Entitic vol] 87 fL Normal 80-100 [facility] Comment on above: Performed By: #### Chanel ERICKSON CMP, 1988-02 #### [facility] ([id number]) [address] [place] [address] 19312 #### 54912-6 #### [facility] ([id number]) [address] [place] [address] Monocytes (Bld) [#/Vol] 0.9 10*3/uL Normal 0-0.9 [facility] Comment on above: Performed By: #### Chanel ERICKSON CMP, 1988-02 #### [facility] ([id number]) [address] [place] [address] 75622 #### 43602-8 #### [facility] ([id number]) [address] [place] [address] Monocytes/100 WBC (Bld) 7.1 % Normal [facility] Comment on above: Performed By: #### Chanel ERICKSON CMP, 1988-02 #### [facility] ([id number]) [address] [place] [address] 44422 #### 91616-6 #### [facility] ([id number]) [address] [place] [address] Neutrophils/100 WBC (Bld) 68.1 % Normal [facility] Comment on above: Performed By: #### Chanel ERICKSON CMP, 1988-02 #### [facility] ([id number]) [address] [place] [address] 11425 #### 45358-0 #### [facility] ([id number]) [address] [place] [address] Platelet mean volume (Bld) [Entitic vol] 8.7 fL Normal 7-12 [facility] Comment on above: Performed By: #### Chanel ERICKSON CMP, 1988-02 #### [facility] ([id number]) [address] [place] [address] 92925 #### 63169-8 #### [facility] ([id number]) [address] [place] [address] Platelets (Bld) [#/Vol] 323 10*3/uL Normal 150-450 [facility] Comment on above: Performed By: #### Chanel ERICKSON CMP, 1988-02 #### [facility] ([id number]) [address] [place] [address] 26231 #### 56344-6 #### [facility] ([id number]) [address] [place] [address] RBC COUNT 3.98 X10E12/L Normal 3.80-5.20 [facility] Comment on above: Performed By: #### Chanel ERICKSON CMP, 1988-02 #### [facility] ([id number]) [address] [place] [address] 27269 #### 54306-8 #### [facility] ([id number]) [address] [place] [address] WBC (Bld) [#/Vol] 13.1 10*3/uL High 4.0-11.0 [facility] Comment on above: Performed By: #### Chanel ERICKSON CMP, 1988-02 #### [facility] ([id number]) [address] [place] [address] 98964 #### 91594-2 #### [facility] ([id number]) [address] [place] [address] COMPREHENSIVE METABOLIC PANE Tyrone 12-27-2023 Albumin [Mass/Vol] 3.0 g/dL Low 3.2-5.3 [facility] Comment on above: Performed By: #### Chanel ERICKSON CMP, 1988-02 #### [facility] ([id number]) [address] [place] [address] 91412 #### 40705-6 #### [facility] [facility] ([id number]) [address], [address] [place] [address] ALP [Catalytic activity/Vol] 68 U/L Normal 39-130 [facility] Comment on above: Performed By: #### Chanel ERICKSON CMP, 1988-02 #### [facility] ([id number]) [address] [place] [address] 71369 #### 26313-7 #### [facility] ([id number]) [address], [address] [place] [address] ALT [Catalytic activity/Vol] 17 U/L Normal 0-31 [facility] Comment on above: Performed By: #### Chanel ERICKSON CMP, 1988-02 #### [facility] ([id number]) [address] [place] [address] 07992 #### 56538-9 #### [facility] ([id number]) [address], [address] [place] [address] Anion gap [Moles/Vol] 8 mmol/L Normal 5-15 [facility] Comment on above: Performed By: #### C BCA, CMP, 1988-02 #### [facility] ([id number]) [address] [place] [address] 93609 #### 01546-4 #### [facility] ([id number]) [address], [address] [place] [address] AST [Catalytic activity/Vol] 16 U/L Normal 0-41 [facility] Comment on above: Performed By: #### C BCA, CMP, 1988-02 #### [facility] ([id number]) [address] [place] [address] 06098 #### 86071-1 #### [facility] ([id number]) [address], [address] [place] [address] Bilirubin [Mass/Vol] 0.5 mg/dL Normal 0.3-1.2 [facility] Comment on above: Performed By: #### C BCA, CMP, 1988-02 #### [facility] ([id number]) [address] [place] [address] 97548 #### 44522-2 #### [facility] ([id number]) [address], [address] [place] [address] Calcium [Mass/Vol] 8.3 mg/dL Low 8.5-10.5 [facility] Comment on above: Performed By: #### C BCA, CMP, 1988-02 #### [facility] ([id number]) [address] [place] [address] 22499 #### 90087-9 #### [facility] ([id number]) [address] [place] [address] Chloride [Moles/Vol] 99 mmol/L Normal 98-109 [facility] Comment on above: Performed By: #### C BCA, CMP, 1988-02 #### [facility] ([id number]) [address] [place] [address] 20248 #### 43540-3 #### [facility] ([id number]) [address] [place] [address] CO2 [Moles/Vol] 31 mmol/L Normal 22-32 [facility] Comment on above: Performed By: #### C BCA, CMP, 1988-02 #### [facility] ([id number]) [address] [place] [address] 26383 #### 84841-8 #### [facility] ([id number]) [address], [address] [place] [address] Creatinine [Mass/Vol] 0.71 mg/dL Normal 0.40-1.00 [facility] Comment on above: Result Comment: METH OD TRACEABLE TO IDMS STANDARD Performed By: #### C DRE [facility], 1988-02 #### [facility] ([id number]) [address] [place] [address] 37026 #### 14432-7 #### [facility] ([id number]) [address], [address] [place] [address] eGFR (CKD-EPI) NON-RACE DEPENDENT >90 Normal >59 [facility] Comment on above: Result Comment: Reported eGFR is based on the CKD-EPI 2020 equation that does not use a race coefficient. Performed By: #### C [facility]RE [facility], 1988-02 #### [facility] ([id number]) [address] [place] [address] 45737 #### 29645-2 #### [facility] ([id number]) [address], [address] [place] [address] Glucose [Mass/Vol] 119 mg/dL High 65-99 [facility] Comment on above: Performed By: #### [facility], 1988-02 #### [facility] ([id number]) [address] [place] [address] 40095 #### 06101-9 #### [facility] ([id number]) [address], [address] [place] [address] Potassium [Moles/Vol] 3.6 mmol/L Normal 3.5-5.0 [facility] Comment on above: Performed By: #### Chanel ERICKSON, [facility], 1988-02 #### [facility] ([id number]) [address] [place] [address] 26330 #### 03314-1 #### [facility] ([id number]) [address], [address] [place] [address] Protein [Mass/Vol] 7.0 g/dL Normal 6.0-8.0 [facility] Comment on above: Performed By: #### C [facility]RE [facility], 1988-02 #### [facility] ([id number]) [address] [place] [address] 58053 #### 47367-0 #### [facility] ([id number]) [address], [address] [place] [address] Sodium [Moles/Vol] 138 mmol/L Normal 134-146 [facility] Comment on above: Performed By: #### Chanel ERICKSON [facility], 1988-02 #### [facility] ([id number]) [address] [place] [address] 18241 #### 70607-6 #### [facility] ([id number]) [address], [address] [place] [address] Urea nitrogen [Mass/Vol] 18 mg/dL Normal 5-27 [facility] Comment on above: Performed By: #### Chanel EIRCKSON [facility], 1988-02 #### [facility] ([id number]) [address] [place] [address] 70526 #### 04251-5 #### [facility] ([id number]) [address], [address] [place] [address] Glucose Glucometer (BldC) [M ass/Vol]on 12-27-2023 Glucose [Mass/Vol] 149 mg/dL High 65-99 [facility] Glucose [Mass/Vol] 156 mg/dL High 65-99 [facility] Glucose [Mass/Vol] 181 mg/dL High 65-99 [facility] MAGNESIUMon 12-27-2023 Magnesium [Mass/Vol] 2.3 mg/dL Normal 1.8-2.6 [facility] Comment on above: Performed By: #### U A #### [facility] ([id number]) [address] [place] [address] PROTIME AND INRon 12-27-2023 INR Coag (PPP) [Relative time] 2.9 {INR} High 0.8-1.1 [facility] Comment on above: Performed By: #### Chanel ERICKSON CMP, 1988-02 #### [facility] ([id number]) [address] [place] [address] #### 41594-9 #### [facility] ([id number]) [facility], [address] [place] [address] PT Coag (PPP) [Time] 32.6 s High 9.8-13.2 [facility] Comment on above: Result Comment: NEW REFERENCE RANGE Performed By: #### Chanel ERICKSON CMP, 1988-02 #### [facility] ([id number]) [address] [place] [address] 50665 #### 29577-3 #### [facility] ([id number]) [address] [facility], [address] [place] [address] CBC AND AUTO DIFFon 12-26-19 24 ABSOLUTE BASOPHIL 0.1 X10E9/L Normal 0.0-0.2 [facility] Comment on above: Performed By: #### Chanel ERICKSON CMP, 1988-02 #### [facility] ([id number]) [address] [place] [address] 66785 #### 74404-7 #### [facility] ([id number]) [address] [facility], [address] [place] [address] ABSOLUTE NEUTROPHIL 11.1 X10E9/L High 1.5-6.6 [facility] Comment on above: Performed By: #### Chanel ERICKSON [facility], 1988-02 #### [facility] ([id number]) [address] [place] [address] 32186 #### 93631-7 #### [facility] ([id number]) [address], [address] [place] [address] Basophils/100 WBC (Bld) 0.4 % Normal [facility] Comment on above: Performed By: #### Chanel ERICKSON [facility], 1988-02 #### [facility] ([id number]) [address] [place] [address] 54900 #### 95000-5 #### [facility] ([id number]) [address], [address] [place] [address] Eosinophils (Bld) [#/Vol] 0.8 10*3/uL High 0.0-0.4 [facility] Comment on above: Performed By: #### Chanel ERICKSON [facility], 1988-02 #### [facility] ([id number]) [address] [place] [address] 64669 #### 69459-2 #### [facility] ([id number]) [address], [address] [place] [address] Eosinophils/100 WBC (Bld) 5.4 % Normal [facility] Comment on above: Performed By: #### Chanel ERICKSON [facility], 1988-02 #### [facility] ([id number]) [address] [place] [address] 46894 #### 15243-0 #### [facility] ([id number]) [address], [address] [place] [address] Erythrocyte distribution width (RBC) [Ratio] 13.9 % Normal 11.5-15.0 [facility] Comment on above: Performed By: #### Chanel ERICKSON CMP, 1988-02 #### [facility] ([id number]) [address] [place] [address] 85369 #### 52553-1 #### [facility] ([id number]) [address], [address] [place] [address] Hematocrit (Bld) [Volume fraction] 35.9 % Normal 35-47 [facility] Comment on above: Performed By: #### Chanel ERICKSON CMP, 1988-02 #### [facility] ([id number]) [address] [place] [address] 35435 #### 21266-0 #### [facility] ([id number]) [address], [address] [place] [address] Hemoglobin (Bld) [Mass/Vol] 11.7 g/dL Normal 11.7-15.5 [facility] Comment on above: Performed By: #### Chanel ERICKSON CMP, 1988-02 #### [facility] ([id number]) [address] [place] [address] 61004 #### 80980-2 #### [facility] ([id number]) [address], [address] [place] [address] Lymphocytes (Bld) [#/Vol] 2.6 10*3/uL Normal 1.0-3.5 [facility] Comment on above: Performed By: #### Chanel ERICKSON CMP, 1988-02 #### [facility] ([id number]) [address] [place] [address] 92869 #### 38249-3 #### [facility] ([id number]) [address], [address] [place] [address] Lymphocytes/100 WBC (Bld) 16.6 % Normal [facility] Comment on above: Performed By: #### Chanel ERICKSON, [facility], 1988-02 #### [facility] ([id number]) [address] [place] [address] 61449 #### 45267-7 #### [facility] ([id number]) [address], [address] [place] [address] MCH (RBC) [Entitic mass] 28.2 pg Normal 27-34 [facility] Comment on above: Performed By: #### Chanel ERICKSON, CMP, 1988-02 #### [facility] ([id number]) [address] [place] [address] 46549 #### 04852-9 #### [facility] ([id number]) [address], [address] [place] [address] MCHC (RBC) [Mass/Vol] 32.7 g/dL Normal 32-36 [facility] Comment on above: Performed By: #### Chanel ERICKSON [facility], 1988-02 #### [facility] ([id number]) [address] [place] [address] 71186 #### 82254-7 #### [facility] ([id number]) [address], [address] [place] [address] MCV (RBC) [Entitic vol] 86 fL Normal 80-100 [facility] Comment on above: Performed By: #### Chanel ERICKSON, CMP, 1988-02 #### [facility] ([id number]) [address] [place] [address] 12729 #### 64108-8 #### [facility] ([id number]) [address], [address] [place] [address] Monocytes (Bld) [#/Vol] 0.9 10*3/uL Normal 0-0.9 [facility] Comment on above: Performed By: #### Chanel ERICKSON CMP, 1988-02 #### [facility] ([id number]) [address] [place] [address] 20341 #### 91703-6 #### [facility] ([id number]) [address], [address] [place] [address] Monocytes/100 WBC (Bld) 5.9 % Normal [facility] Comment on above: Performed By: #### Chanel ERICKSON CMP, 1988-02 #### [facility] ([id number]) [address] [place] [address] 46797 #### 85697-6 #### [facility] ([id number]) [address], [address] [place] [address] Neutrophils/100 WBC (Bld) 71.7 % Normal [facility] Comment on above: Performed By: #### Chanel ERICKSON CMP, 1988-02 #### [facility] ([id number]) [address] [place] [address] 20361 #### 01036-0 #### [facility] ([id number]) [address], [address] [place] [address] Platelet mean volume (Bld) [Entitic vol] 8.6 fL Normal 7-12 [facility] Comment on above: Performed By: #### Chanel ERICKSON CMP, 1988-02 #### [facility] ([id number]) [address] [place] [address] 17070 #### 79746-9 #### [facility] ([id number]) [address], [address] [place] [address] Platelets (Bld) [#/Vol] 338 10*3/uL Normal 150-450 [facility] Comment on above: Performed By: #### Chanel ERICKSON CMP, 1988-02 #### [facility] ([id number]) [address] [place] [address] 29583 #### 04048-6 #### [facility] ([id number]) [address] [place] [address], [address] [place] [address] RBC COUNT 4.16 X10E12/L Normal 3.80-5.20 [facility] Comment on above: Performed By: #### Chanel ERICKSON CMP, 1988-02 #### [facility] ([id number]) [address] [place] [address] 96983 #### 86750-3 #### [facility] ([id number]) [address] [place] [address], [address] [place] [address] WBC (Bld) [#/Vol] 15.5 10*3/uL High 4.0-11.0 [facility] Comment on above: Performed By: #### Chanel ERICKSON CMP, 1988-02 #### [facility] ([id number]) [address] [place] [address] 44843 #### 15226-6 #### [facility] ([id number]) [address] [place] [address], [address] [place] [address] COMPREHENSIVE METABOLIC PANE [place] 12-26-2023 Albumin [Mass/Vol] 3.2 g/dL Normal 3.2-5.3 [facility] Comment on above: Performed By: #### Chanel BCA CMP, 1988-02 #### [facility] ([id number]) [address] [place] [address] 20549 #### 26593-5 #### [facility] ([id number]) [address] [place] [address], [address] [place] [address] ALP [Catalytic activity/Vol] 69 U/L Normal 39-130 [facility] Comment on above: Performed By: #### Chanel BCA CMP, 1988-02 #### [facility] ([id number]) [address] [place] [address] 51567 #### 51990-8 #### [facility] ([id number]) [address] [facility], [address] [place] [address] ALT [Catalytic activity/Vol] 16 U/L Normal 0-31 [facility] Comment on above: Performed By: #### Chanel ERICKSON CMP, 1988-02 #### [facility] ([id number]) [address] [place] [address] 21661 #### 13618-5 #### [facility] ([id number]) [address] [facility], [address] [place] [address] Anion gap [Moles/Vol] 10 mmol/L Normal 5-15 [facility] Comment on above: Performed By: #### Chanel ERICKSON CMP, 1988-02 #### [facility] ([id number]) [address] [place] [address] 80912 #### 38046-8 #### [facility] ([id number]) [address] [facility], [address] [place] [address] AST [Catalytic activity/Vol] 17 U/L Normal 0-41 [facility] Comment on above: Performed By: #### Chanel ERICKSON CMP, 1988-02 #### [facility] ([id number]) [address] [place] [address] 82488 #### 17718-9 #### [facility] ([id number]) [address] [facility], [address] [place] [address] Bilirubin [Mass/Vol] 0.4 mg/dL Normal 0.3-1.2 [facility] Comment on above: Performed By: #### Chanel BCA, CMP, 1988-02 #### [facility] ([id number]) [address] [place] [address] 84564 #### 64887-7 #### [facility] ([id number]) [address] [place] [address] Calcium [Mass/Vol] 8.7 mg/dL Normal 8.5-10.5 [facility] Comment on above: Performed By: #### C SEAN ERICKSON, 1988-02 #### [facility] ([id number]) [address] [place] [address] 91401 #### 72880-3 #### [facility] ([id number]) [address] [place] [address] Chloride [Moles/Vol] 98 mmol/L Normal 98-109 [facility] Comment on above: Performed By: #### C SEAN ERICKSON, 1988-02 #### [facility] ([id number]) [address] [place] [address] 73478 #### 34789-4 #### [facility] ([id number]) [address] [facility], [address] [place] [address] CO2 [Moles/Vol] 31 mmol/L Normal 22-32 [facility] Comment on above: Performed By: #### C SEAN ERICKSON, 1988-02 #### [facility] ([id number]) [address] [place] [address] 67183 #### 16032-9 #### [facility] ([id number]) [address] [place] [address] Creatinine [Mass/Vol] 0.78 mg/dL Normal 0.40-1.00 [facility] Comment on above: Result Comment: METH OD TRACEABLE TO IDMS STANDARD Performed By: #### C SEAN ERICKSON, 1988-02 #### [facility] ([id number]) [address] [place] [address] 82849 #### 62259-4 #### [facility] ([id number]) [address] [place] [address] GFR/1.73 sq M.predicted among non-blacks MDRD (S/P/Bld) [Vol rate/Area] 81 mL/min/{1.73_m2} Normal >59 [facility] Comment on above: Result Comment: Reported eGFR is based on the CKD-EPI 2020 equation that does not use a race coefficient. Performed By: #### Chanel ERICKSON CMP, 1988-02 #### [facility] ([id number]) [address] [place] [address] 50224 #### 88080-0 #### [facility] ([id number]) [address] [place] [address] Glucose [Mass/Vol] 129 mg/dL High 65-99 [facility] Comment on above: Performed By: #### Chanel ERICKSON CMP, 1988-02 #### [facility] ([id number]) [address] [place] [address] 29883 #### 95038-4 #### [facility] ([id number]) [address] [place] [address] Potassium [Moles/Vol] 3.8 mmol/L Normal 3.5-5.0 [facility] Comment on above: Performed By: #### Chanel ERICKSON CMP, 1988-02 #### [facility] ([id number]) [address] [place] [address] 84170 #### 61119-9 #### [facility] ([id number]) [address] [place] [address] Protein [Mass/Vol] 7.3 g/dL Normal 6.0-8.0 [facility] Comment on above: Performed By: #### Chanel ERICKSON CMP, 1988-02 #### [facility] ([id number]) [address] [place] [address] 54024 #### 52115-3 #### [facility] ([id number]) [address] [place] [address] Sodium [Moles/Vol] 139 mmol/L Normal 134-146 [facility] Comment on above: Performed By: #### Chanel ERICKSON CMP, 1988-02 #### [facility] ([id number]) [address] [place] [address] 02685 #### 01030-4 #### [facility] ([id number]) [address] [facility], [address] [place] [address] Urea nitrogen [Mass/Vol] 19 mg/dL Normal 5-27 [facility] Comment on above: Performed By: #### Chanel ERICKSON CMP, 1988-02 #### [facility] ([id number]) [address] [place] [address] 37279 #### 83572-3 #### [facility] ([id number]) [address] [facility], [address] [place] [address] Glucose Glucometer (BldC) [M ass/Vol]on 12-26-2023 Glucose [Mass/Vol] 146 mg/dL High 65-99 [facility] Glucose [Mass/Vol] 182 mg/dL High 65-99 [facility] Glucose [Mass/Vol] 108 mg/dL High 65-99 [facility] MAGNESIUMon 12-26-2023 Magnesium [Mass/Vol] 2.3 mg/dL Normal 1.8-2.6 [facility] Comment on above: Performed By: #### Chanel ERICKSON CMP, 1988-02 #### [facility] ([id number]) [address] [place] [address] 72694 #### 53024-8 #### [facility] ([id number]) [address] [place] [address] MR FOOT RT W WO CONTon 12-25 [...] Alberto MD on 12/26/2023 12:57 PM Normal [facility] PROTIME AND INRon 12-26-2023 INR Coag (PPP) [Relative time] 3.0 {INR} High 0.8-1.1 [facility] Comment on above: Performed By: #### C DRE [facility], 1987- #### [facility] ([id number]) [address] [facility] [place] [address] #### 75263-9 #### [facility] ([id number]) [address] [facility], [address] [place] [address] PT Coag (PPP) [Time] 33.3 s High 9.8-13.2 [facility] Comment on above: Result Comment: NEW REFERENCE RANGE Performed By: #### Chanel ERICKSON CMP, 1988-02 #### [facility] ([id number]) [address] [place] [address] 67413 #### 03857-0 #### [facility] ([id number]) [address] [place] [address] Vancomycin trough [Mass/Vol] on 12-26-2023 VANCOMYCIN TROUGH 11.6 ug/mL Normal 5.0-20.0 [facility] Comment on above: Performed By: #### Chanel ERICKSON [facility], 1988-02 #### [facility] ([id number]) [address] [place] [address] #### [id number] #### [facility] ([id number]) [address] [facility], [address] [place] [address] CBC AND AUTO DIFFon 12-25-19 ABSOLUTE BASOPHIL 0.1 X10E9/L Normal 0.0-0.2 [facility] Comment on above: Performed By: #### Chanel ERICKSON [facility], 1986-02 #### [facility] ([id number]) [address] [place] [address] #### [id number] #### [facility] ([id number]) [address] [facility], [address] [place] [address] ABSOLUTE NEUTROPHIL 9.4 X10E9/L High 1.5-6.6 [facility] Comment on above: Performed By: #### Chanel ERICKSON [facility], 1986-02 #### [facility] ([id number]) [address] [place] [address] #### [id number] #### [facility] ([id number]) [address] [facility], [address] [place] [address] Basophils/100 WBC (Bld) 0.4 % Normal [facility] Comment on above: Performed By: #### Chanel ERICKSON CMP, 1986-02 #### [facility] ([id number]) [address] [place] [address] #### [id number] #### [facility] ([id number]) [address], [address] [place] [address] Eosinophils (Bld) [#/Vol] 0.7 10*3/uL High 0.0-0.4 [facility] Comment on above: Performed By: #### Chanel ERICKSON CMP, 1986-02 #### [facility] ([id number]) [address] [place] [address]36[address] #### [id number] #### [facility] ([id number]) [address], [facility] [address] [place] [address] Eosinophils/100 WBC (Bld) 5.3 % Normal [facility] Comment on above: Performed By: #### Chanel ERICKSON CMP, 1986-02 #### [facility] ([id number]) [address] [place] [address] #### [id number] #### [facility] ([id number]) [address], [facility] [address] [place] [address] Erythrocyte distribution width (RBC) [Ratio] 13.7 % Normal 11.5-15.0 [facility] Comment on above: Performed By: #### Chanel ERICKSON CMP, 1986-02 #### [facility] ([id number]) 25 [place] [address] 62965 #### 06427-7 #### [facility] ([id number]) [address], [address] [place] [address] Hematocrit (Bld) [Volume fraction] 37.8 % Normal 35-47 [facility] Comment on above: Performed By: #### Chanel ERICKSON CMP, 1988-02 #### [facility] ([id number]) [address] [place] [address] 68717 #### 32433-3 #### [facility] ([id number]) [address], [address] [place] [address] Hemoglobin (Bld) [Mass/Vol] 12.6 g/dL Normal 11.7-15.5 [facility] Comment on above: Performed By: #### Chanel ERICKSON CMP, 1988-02 #### [facility] ([id number]) [address] [place] [address] 83723 #### 78598-3 #### [facility] ([id number]) [address], [address] [place] [address] Lymphocytes (Bld) [#/Vol] 2.4 10*3/uL Normal 1.0-3.5 [facility] Comment on above: Performed By: #### Chanel ERICKSON CMP, 1988-02 #### [facility] ([id number]) [address] [place] [address] 67011 #### 52344-3 #### [facility] ([id number]) [address], [address] [place] [address] Lymphocytes/100 WBC (Bld) 17.5 % Normal [facility] Comment on above: Performed By: #### Chanel ERICKSON CMP, 1988-02 #### [facility] ([id number]) [address] [place] [address] 43120 #### 89844-9 #### [facility] ([id number]) [address], [address] [place] [address] MCH (RBC) [Entitic mass] 28.8 pg Normal 27-34 [facility] Comment on above: Performed By: #### Chanel ERICKSON, CMP, 1988-02 #### [facility] ([id number]) [address] [place] [address] 91176 #### 61948-7 #### [facility] ([id number]) [address] [place] [address] MCHC (RBC) [Mass/Vol] 33.4 g/dL Normal 32-36 [facility] Comment on above: Performed By: #### Chanel ERICKSON, CMP, 1988-02 #### [facility] ([id number]) [address] [place] [address] 64922 #### 21360-5 #### [facility] ([id number]) [address], [address] [place] [address] MCV (RBC) [Entitic vol] 86 fL Normal 80-100 [facility] Comment on above: Performed By: #### Chanel ERICKSON, CMP, 1988-02 #### [facility] ([id number]) [address] [place] [address] 20878 #### 13162-0 #### [facility] ([id number]) [address], [address] [place] [address] Monocytes (Bld) [#/Vol] 1.1 10*3/uL High 0-0.9 [facility] Comment on above: Performed By: #### Chanel ERICKSON, CMP, 1988-02 #### [facility] ([id number]) [address] [place] [address] 52520 #### 76061-4 #### [facility] ([id number]) [address] [place] [address] Monocytes/100 WBC (Bld) 8.0 % Normal [facility] Comment on above: Performed By: #### Chanel ERICKSON, CMP, 1988-02 #### [facility] ([id number]) [address] [place] [address] 31738 #### 95950-7 #### [facility] ([id number]) [address], [address] [place] [address] Neutrophils/100 WBC (Bld) 68.8 % Normal [facility] Comment on above: Performed By: #### Chanel ERICKSON CMP, 1988-02 #### [facility] ([id number]) [address] [place] [address] 98484 #### 75672-8 #### [facility] ([id number]) [address] [facility], [address] [place] [address] Platelet mean volume (Bld) [Entitic vol] 8.4 fL Normal 7-12 [facility] Comment on above: Performed By: #### Chanel ERICKSON CMP, 1988-02 #### [facility] ([id number]) [address] [place] [address] 18357 #### 15264-7 #### [facility] ([id number]) [address], [address] [place] [address] Platelets (Bld) [#/Vol] 321 10*3/uL Normal 150-450 [facility] Comment on above: Performed By: #### Chanel ERICKSON CMP, 1988-02 #### [facility] ([id number]) [address] [place] [address] 55484 #### 09372-6 #### [facility] ([id number]) [address] [facility], [address] [place] [address] RBC COUNT 4.38 X10E12/L Normal 3.80-5.20 [facility] Comment on above: Performed By: #### Chanel ERICKSON CMP, 1988-02 #### [facility] ([id number]) [address] [place] [address] 53856 #### 06026-1 #### [facility] ([id number]) [address] [facility], [address] [place] [address] WBC (Bld) [#/Vol] 13.7 10*3/uL High 4.0-11.0 [facility] Comment on above: Performed By: #### Chanel ERICKSON CMP, 1988-02 #### [facility] ([id number]) [address] [place] [address] 95590 #### 60190-5 #### [facility] ([id number]) [address] [place] [address], [address] [place] [address] COMPREHENSIVE METABOLIC PANE Tyrone 12-25-2023 Albumin [Mass/Vol] 3.3 g/dL Normal 3.2-5.3 [facility] Comment on above: Performed By: #### Chanel BCA CMP, 1988-02 #### [facility] ([id number]) [address] [place] [address] 67850 #### 37964-8 #### [facility] ([id number]) [address] [place] [address], [address] [address] ALP [Catalytic activity/Vol] 66 U/L Normal 39-130 [facility] Comment on above: Performed By: #### Chanel BCA, CMP, 1988-02 #### [facility] ([id number]) [address] [place] [address] 14981 #### 44453-3 #### [facility] ([id number]) [address] [place] [address], [address] [place] [address] ALT [Catalytic activity/Vol] 16 U/L Normal 0-31 [facility] Comment on above: Performed By: #### Chanel BCA, CMP, 1988-02 #### [facility] ([id number]) [address] [place] [address] [place] [address] #### 22197-3 #### [facility] ([id number]) [address], [address] [place] [address] Anion gap [Moles/Vol] 10 mmol/L Normal 5-15 [facility] Comment on above: Performed By: #### Chanel ERICKSON CMP, 1988-02 #### [facility] ([id number]) [address] [place] [address] 35324 #### 53864-8 #### [facility] ([id number]) [address] [facility], [address] [place] [address] AST [Catalytic activity/Vol] 17 U/L Normal 0-41 [facility] Comment on above: Performed By: #### Chanel ERICKSON CMP, 1988-02 #### [facility] ([id number]) [address] [place] [address] 64126 #### 52798-2 #### [facility] ([id number]) [address], [address] [place] [address] Bilirubin [Mass/Vol] 0.5 mg/dL Normal 0.3-1.2 [facility] Comment on above: Performed By: #### Chanel ERICKSON CMP, 1988-02 #### [facility] ([id number]) [address] [place] [address] 57085 #### 60615-8 #### [facility] ([id number]) [address], [address] [place] [address] Calcium [Mass/Vol] 8.9 mg/dL Normal 8.5-10.5 [facility] Comment on above: Performed By: #### Chanel BCA, CMP, 1988-02 #### [facility] ([id number]) [address] [place] [address] 71565 #### 52712-3 #### [facility] ([id number]) [address], [address] [place] [address] Chloride [Moles/Vol] 98 mmol/L Normal 98-109 [facility] Comment on above: Performed By: #### C SEAN ERICKSON, 1988-02 #### [facility] ([id number]) [address] [place] [address] 50759 #### 86946-1 #### [facility] ([id number]) [address] [facility], [address] [place] [address] CO2 [Moles/Vol] 31 mmol/L Normal 22-32 [facility] Comment on above: Performed By: #### Chanel ERICKSON [facility], 1988-02 #### [facility] ([id number]) [address] [place] [address] 80712 #### 80498-2 #### [facility] ([id number]) [address] [facility], [address] [place] [address] Creatinine [Mass/Vol] 0.78 mg/dL Normal 0.40-1.00 [facility] Comment on above: Result Comment: METH OD TRACEABLE TO IDMS STANDARD Performed By: #### C DRE [facility], 1988-02 #### [facility] ([id number]) [address] [place] [address] 33570 #### 98896-7 #### [facility] ([id number]) [address] [facility], [address] [place] [address] GFR/1.73 sq M.predicted among non-blacks MDRD (S/P/Bld) [Vol rate/Area] 81 mL/min/{1.73_m2} Normal >59 [facility] Comment on above: Result Comment: Reported eGFR is based on the CKD-EPI 2020 equation that does not use a race coefficient. Performed By: #### Chanel ERICKSON CMP, 1988-02 #### [facility] ([id number]) [address] [place] [address] 67613 #### 61089-1 #### [facility] ([id number]) [address] [facility], [address] [place] [address] Glucose [Mass/Vol] 125 mg/dL High 65-99 [facility] Comment on above: Performed By: #### Chanel ERICKSON CMP, 1988-02 #### [facility] ([id number]) [address] [place] [address] 33003 #### 53535-8 #### [facility] ([id number]) [address] [facility], [address] [place] [address] Potassium [Moles/Vol] 3.5 mmol/L Normal 3.5-5.0 [facility] Comment on above: Performed By: #### Chanel ERICKSON CMP, 1988-02 #### [facility] ([id number]) [address] [place] [address] 94150 #### 44451-5 #### [facility] ([id number]) [address] [facility], [address] [place] [address] Protein [Mass/Vol] 7.7 g/dL Normal 6.0-8.0 [facility] Comment on above: Performed By: #### Chanel ERICKSON CMP, 1988-02 #### [facility] ([id number]) [address] [place] [address] 34149 #### 05210-1 #### [facility] ([id number]) [address], [address] [place] [address] Sodium [Moles/Vol] 139 mmol/L Normal 134-146 [facility] Comment on above: Performed By: #### Chanel ERICKSON CMP, 1988-02 #### [facility] ([id number]) [address] [place] [address] 19479 #### 73626-0 #### [facility] ([id number]) [address], [address] [place] [address] Urea nitrogen [Mass/Vol] 19 mg/dL Normal 5-27 [facility] Comment on above: Performed By: #### Chanel ERICKSON [facility], 1988-02 #### [facility] ([id number]) [address] [place] [address] 08162 #### 73122-4 #### [facility] ([id number]) [address] [facility], [address] [place] [address] CRP [Mass/Vol]on 12-25-2023 C REACTIVE PROTEIN 8.6 mg/dL High 0.000-0.744 [facility] Comment on above: Performed By: #### Chanel ERICKSON [facility], 1988-02 #### [facility] ([id number]) [address] [place] [address] 72321 #### 55118-2 #### [facility] ([id number]) [address] [facility], [address] [place] [address] ESR Photometric method (Bld) [Velocity]on 12-25-2023 ESR, ERYTHROCYTE SEDIMENTATION RATE 85 mm/h High 0-30 [facility] Comment on above: Performed By: #### Chanel ERICKSON [facility], 1988-02 #### [facility] ([id number]) [address] [place] [address] 43214 #### 58799-8 #### [facility] ([id number]) [address] [facility], [address] [place] [address] Glucose Glucometer (BldC) [M ass/Vol]on 12-25-2023 Glucose [Mass/Vol] 171 mg/dL High 65-99 [facility] Glucose [Mass/Vol] 125 mg/dL High 65-99 [facility] Glucose [Mass/Vol] 154 mg/dL High 65-99 [facility] MAGNESIUMon 12-25-2023 Magnesium [Mass/Vol] 2.4 mg/dL Normal 1.8-2.6 [facility] Comment on above: Performed By: #### Chanel ERICKSON [facility], 1988-02 #### [facility] ([id number]) [address] [place] [address] 04487 #### 90851-8 #### [facility] ([id number]) [address] [facility], [address] [place] [address] POTASSIUMon 12-25-2023 Potassium [Moles/Vol] 4.2 mmol/L Normal 3.5-5.0 [facility] Comment on above: Performed By: #### Chanel ERICKSON [facility], 1988-02 #### [facility] ([id number]) [address] [place] [address] 08412 #### 40233-0 #### [facility] ([id number]) [address] [facility], [address] [place] [address] PROTIME AND INRon 12-25-2023 INR Coag (PPP) [Relative time] 2.6 {INR} High 0.8-1.1 [facility] Comment on above: Performed By: #### Chanel ERICKSON [facility], 1988-02 #### [facility] ([id number]) [address] [place] [address] 63692 #### 05815-5 #### [facility] ([id number]) [address] [facility], [address] [place] [address] PT Coag (PPP) [Time] 29.7 s High 9.8-13.2 [facility] Comment on above: Result Comment: NEW REFERENCE RANGE Performed By: #### Chanel ERICKSON CMP, 1988-02 #### [facility] ([id number]) [address] [place] [address] 61385 #### 25906-5 #### [facility] ([id number]) [address] [facility], [address] [place] [address] URIC ACIDon 12-25-2023 Urate [Mass/Vol] 8.9 mg/dL High 2.6-7.2 [facility] Comment on above: Performed By: #### C BCA, CMP, 1987- #### [facility] ([id number]) [address] [place] [address], [place] [address] #### 86317-6 #### [facility] ([id number]) [address] [facility], [address] [place] [address] XR CHEST 1 VWon 12-25-2023 XR CHEST [...] Wood MD on 12/25/2023 11:21 AM Normal [facility] XR FOOT RT 2 VWSon XR [...] Araujo MD on 12/25/2023 2:59 PM Normal [facility] CBC AND AUTO DIFFon 12-24-19 24 ABSOLUTE BASOPHIL 0.1 X10E9/L Normal 0.0-0.2 [facility] Comment on above: Performed By: #### Chanel ERICKSON CMP, 1988-02 #### [facility] ([id number]) [address] [place] [address] 19692 #### 34616-6 #### [facility] ([id number]) [address], [address] [place] [address] ABSOLUTE NEUTROPHIL 10.2 X10E9/L High 1.5-6.6 [facility] Comment on above: Performed By: #### Chanel ERICKSON [facility], 1988-02 #### [facility] ([id number]) [address] [place] [address] 44695 #### 26428-3 #### [facility] ([id number]) [address] [facility], [address] [place] [address] Basophils/100 WBC (Bld) 0.5 % Normal [facility] Comment on above: Performed By: #### Chanel ERICKSON [facility], 1988-02 #### [facility] ([id number]) [address] [place] [address] 20631 #### 16272-8 #### [facility] ([id number]) [address], [address] [place] [address] Eosinophils (Bld) [#/Vol] 0.9 10*3/uL High 0.0-0.4 [facility] Comment on above: Performed By: #### Chanle ERICKSON CMP, 1988-02 #### [facility] ([id number]) [address] [place] [address] 42072 #### 21905-3 #### [facility] ([id number]) [address] [place] [address] Eosinophils/100 WBC (Bld) 6.2 % Normal [facility] Comment on above: Performed By: #### Chanel ERICKSON CMP, 1988-02 #### [facility] ([id number]) [address] [place] [address] 66998 #### 11655-9 #### [facility] ([id number]) [address], [address] [place] [address] Erythrocyte distribution width (RBC) [Ratio] 14.1 % Normal 11.5-15.0 [facility] Comment on above: Performed By: #### Chanel ERICKSON CMP, 1988-02 #### [facility] ([id number]) [address] [place] [address] 53604 #### 80820-3 #### [facility] ([id number]) [address], [address] [place] [address] Hematocrit (Bld) [Volume fraction] 37.3 % Normal 35-47 [facility] Comment on above: Performed By: #### Chanel ERICKSON CMP, 1988-02 #### [facility] ([id number]) [address] [place] [address] 02344 #### 20671-1 #### [facility] ([id number]) [address], [address] [place] [address] Hemoglobin (Bld) [Mass/Vol] 12.4 g/dL Normal 11.7-15.5 [facility] Comment on above: Performed By: #### Chanel ERICKSON CMP, 1988-02 #### [facility] ([id number]) [address] [place] [address] 69738 #### 77781-4 #### [facility] ([id number]) [address], [address] [place] [address] Lymphocytes (Bld) [#/Vol] 2.2 10*3/uL Normal 1.0-3.5 [facility] Comment on above: Performed By: #### Chanel ERICKSON CMP, 1988-02 #### [facility] ([id number]) [address] [place] [address] 96679 #### 57050-2 #### [facility] ([id number]) [address] [place] [address] Lymphocytes/100 WBC (Bld) 15.4 % Normal [facility] Comment on above: Performed By: #### Chanel ERICKSON CMP, 1988-02 #### [facility] ([id number]) [address] [place] [address] 79583 #### 41164-1 #### [facility] ([id number]) [address], [address] [place] [address] MCH (RBC) [Entitic mass] 29.0 pg Normal 27-34 [facility] Comment on above: Performed By: #### Chanel ERICKSON CMP, 1988-02 #### [facility] ([id number]) [address] [place] [address] 00283 #### 25735-7 #### [facility] ([id number]) [address] [place] [address] MCHC (RBC) [Mass/Vol] 33.3 g/dL Normal 32-36 [facility] Comment on above: Performed By: #### Chanel ERICKSON CMP, 1988-02 #### [facility] ([id number]) [address] [place] [address] 17485 #### 70704-8 #### [facility] ([id number]) [address] [place] [address] MCV (RBC) [Entitic vol] 87 fL Normal 80-100 [facility] Comment on above: Performed By: #### Chanel ERICKSON CMP, 1988-02 #### [facility] ([id number]) [address] [place] [address] 41260 #### 79864-7 #### [facility] ([id number]) [address] [place] [address] Monocytes (Bld) [#/Vol] 0.7 10*3/uL Normal 0-0.9 [facility] Comment on above: Performed By: #### Chanel ERICKSON CMP, 1988-02 #### [facility] ([id number]) [address] [place] [address] 78154 #### 87487-2 #### [facility] ([id number]) [address] [place] [address] Monocytes/100 WBC (Bld) 5.3 % Normal [facility] Comment on above: Performed By: #### Chanel ERICKSON CMP, 1988-02 #### [facility] ([id number]) [address] [place] [address] 75071 #### 59498-0 #### [facility] ([id number]) [address] [place] [address] Neutrophils/100 WBC (Bld) 72.6 % Normal [facility] Comment on above: Performed By: #### Chanel ERICKSON CMP, 1988-02 #### [facility] ([id number]) [address] [place] [address] 76362 #### 44326-0 #### [facility] ([id number]) [address] [place] [address] Platelet mean volume (Bld) [Entitic vol] 8.6 fL Normal 7-12 [facility] Comment on above: Performed By: #### Chanel ERICKSON CMP, 1988-02 #### [facility] ([id number]) [address] [place] [address] 22579 #### 13529-6 #### [facility] ([id number]) [address] [facility], [address] [place] [address] Platelets (Bld) [#/Vol] 339 10*3/uL Normal 150-450 [facility] Comment on above: Performed By: #### Chanel ERICKSON CMP, 1988-02 #### [facility] ([id number]) [address] [place] [address] 77190 #### 64989-1 #### [facility] ([id number]) [address] [place] [address], [address] [place] [address] RBC COUNT 4.29 X10E12/L Normal 3.80-5.20 [facility] Comment on above: Performed By: #### Chanel ERICKSON CMP, 1988-02 #### [facility] ([id number]) [address] [place] [address] 58119 #### 52130-7 #### [facility] ([id number]) [address] [place] [address], [address] [place] [address]60 WBC (Bld) [#/Vol] 14.1 10*3/uL High 4.0-11.0 [facility] Comment on above: Performed By: #### Chanel BCA, CMP, 1988-02 #### [facility] ([id number]) [address] [place] [address] #### [id number] #### [facility] ([id number]) [address] [place] [address], [address] [place] [address] COMPREHENSIVE METABOLIC PANE Tyrone 12-24-2023 Albumin [Mass/Vol] 3.4 g/dL Normal 3.2-5.3 [facility] Comment on above: Performed By: #### Chanel BCA, CMP, 1988-02 #### [facility] ([id number]) [address] [place] [address] #### [id number] #### [facility] ([id number]) [address] [facility], [address] [place] [address] ALP [Catalytic activity/Vol] 67 U/L Normal 39-130 [facility] Comment on above: Performed By: #### Chanel ERICKSON CMP, 1988-02 #### [facility] ([id number]) [address] [place] [address] #### [id number] #### [facility] ([id number]) [address] [facility], [address] [place] [address] ALT [Catalytic activity/Vol] 13 U/L Normal 0-31 [facility] Comment on above: Performed By: #### Chanel ERICKSON CMP, 1988-02 #### [facility] ([id number]) [address] [place] [address] #### 40994-8 #### [facility] ([id number]) [address] [facility], [address] [place] [address] Anion gap [Moles/Vol] 11 mmol/L Normal 5-15 [facility] Comment on above: Performed By: #### Chanel ERICKSON, CMP, 1988-02 #### [facility] ([id number]) [address] [place] [address] #### 08649-2 #### [facility] ([id number]) [address] [facility], [address] [place] [address] AST [Catalytic activity/Vol] 16 U/L Normal 0-41 [facility] Comment on above: Performed By: #### Chanel BCA, CMP, 1988-02 #### [facility] ([id number]) [address] [place] [address] #### [id number] #### [facility] ([id number]) [address], [address] [place] [address] Bilirubin [Mass/Vol] 0.4 mg/dL Normal 0.3-1.2 [facility] Comment on above: Performed By: #### Chanel ERICKSON CMP, 1988-02 #### [facility] ([id number]) [address] [place] [address] #### [id number] #### [facility] ([id number]) [address], [address] [place] [address] Calcium [Mass/Vol] 8.9 mg/dL Normal 8.5-10.5 [facility] Comment on above: Performed By: #### Chanel ERICKSON CMP, 1986-02 #### [facility] ([id number]) [address] [place] [address] 07264 #### [id number] #### [facility] ([id number]) [address], [address] [place] [address] Chloride [Moles/Vol] 99 mmol/L Normal 98-109 [facility] Comment on above: Performed By: #### Chanel ERICKSON CMP, 1986-02 #### [facility] ([id number]) [address] [place] [address] 24504 #### [id number] #### [facility] ([id number]) [address] [place] [address] CO2 [Moles/Vol] 30 mmol/L Normal 22-32 [facility] Comment on above: Performed By: #### Chanel ERICKSON CMP, 1988-02 #### [facility] ([id number]) [address] [place] [address] 15547 #### [id number] #### [facility] ([id number]) [address] [place] [address] Creatinine [Mass/Vol] 0.83 mg/dL Normal 0.40-1.00 [facility] Comment on above: Result Comment: METH OD TRACEABLE TO IDMS STANDARD Performed By: #### C SEAN ERICKSON, 1986-02 #### [facility] ([id number]) [address] [place] [address] 27962 #### 14649-8 #### [facility] ([id number]) [address] [place] [address] GFR/1.73 sq M.predicted among non-blacks MDRD (S/P/Bld) [Vol rate/Area] 75 mL/min/{1.73_m2} Normal >59 [facility] Comment on above: Result Comment: Reported eGFR is based on the CKD-EPI 2020 equation that does not use a race coefficient. Performed By: #### Chanel ERICKSON CMP, 1988-02 #### [facility] ([id number]) [address] [place] [address] 99728 #### 53455-7 #### [facility] ([id number]) [address] [facility], [address] [place] [address] Glucose [Mass/Vol] 137 mg/dL High 65-99 [facility] Comment on above: Performed By: #### Chanel ERICKSON CMP, 1988-02 #### [facility] ([id number]) [address] [place] [address] 50069 #### [id number] #### [facility] ([id number]) [address] [place] [address] Potassium [Moles/Vol] 3.8 mmol/L Normal 3.5-5.0 [facility] Comment on above: Performed By: #### Chanel ERICKSON CMP, 1988-02 #### [facility] ([id number]) [address] [place] [address] 93088 #### 88364-5 #### [facility] ([id number]) [address], [address] [place] [address] Protein [Mass/Vol] 7.9 g/dL Normal 6.0-8.0 [facility] Comment on above: Performed By: #### Chanel ERICKSON CMP, 1988-02 #### [facility] ([id number]) [address] [place] [address] 76608 #### 52246-2 #### [facility] ([id number]) [address] [place] [address] Sodium [Moles/Vol] 140 mmol/L Normal 134-146 [facility] Comment on above: Performed By: #### Chanel ERICKSON CMP, 1988-02 #### [facility] ([id number]) [address] [place] [address] 03975 #### 44563-6 #### [facility] ([id number]) [address] [facility], [address] [place] [address] Urea nitrogen [Mass/Vol] 18 mg/dL Normal 5-27 [facility] Comment on above: Performed By: #### Chanel ERICKSON CMP, 1988-02 #### [facility] ([id number]) [address] [place] [address] 96957 #### 35784-9 #### [facility] ([id number]) [address] [place] [address] Glucose Glucometer (BldC) [M ass/Vol]on 12-24-2023 Glucose [Mass/Vol] 136 mg/dL High 65-99 [facility] Glucose [Mass/Vol] 123 mg/dL High 65-99 [facility] Glucose [Mass/Vol] 152 mg/dL High 65-99 [facility] MAGNESIUMon 12-24-2023 Magnesium [Mass/Vol] 2.2 mg/dL Normal 1.8-2.6 [facility] Comment on above: Performed By: #### Chanel ERICKSON CMP, 1988-02 #### [facility] ([id number]) [address] [place] [address] 13287 #### 26797-3 #### [facility] ([id number]) [address] [facility], [address] [place] [address] POTASSIUMon 12-24-2023 Potassium [Moles/Vol] 4.0 mmol/L Normal 3.5-5.0 [facility] Comment on above: Performed By: #### Chanel ERICKSON [facility], 1988-02 #### [facility] ([id number]) [address] [place] [address] 98185 #### 32814-2 #### [facility] ([id number]) [address] [facility], [address] [place] [address] PROTIME AND INRon 12-24-2023 INR Coag (PPP) [Relative time] 2.8 {INR} High 0.8-1.1 [facility] Comment on above: Performed By: #### Chanel ERCIKSON CMP, 1988-02 #### [facility] ([id number]) [address] [place] [address] 21849 #### [id number] #### [facility] ([id number]) [address] [facility], [address] [place] [address] PT Coag (PPP) [Time] 30.9 s High 9.8-13.2 [facility] Comment on above: Result Comment: NEW REFERENCE RANGE Performed By: #### Chanel ERICKSON CMP, 1988-02 #### [facility] ([id number]) [address] [place] [address] 02611 #### 82295-8 #### [facility] ([id number]) [address] [facility], [address] [place] [address] Vancomycin trough [Mass/Vol] on 12-24-2023 VANCOMYCIN TROUGH 11.4 ug/mL Normal 5.0-20.0 [facility] Comment on above: Performed By: #### C DRE CMP, 1988-02 #### [facility] ([id number]) [address] [place] [address] 85643 #### 56000-8 #### [facility] ([id number]) [address] [facility], [address] [place] [address] CBC AND AUTO DIFFon 12-23-19 24 ABSOLUTE BASOPHIL 0.1 X10E9/L Normal 0.0-0.2 [facility] Comment on above: Performed By: #### C DRE, PINR, CMP, ####[facility] ([id number])[address] [place] [address] ABSOLUTE NEUTROPHIL 10.1 X10E9/L High 1.5-6.6 [facility] Comment on above: Performed By: #### C BCA, PINR, CMP, ####[facility] ([id number])[address] [place] [address] 37643 Basophils/100 WBC (Bld) 1.0 % Normal [facility] Comment on above: Performed By: #### C BCA, PINR, CMP, ####[facility] ([id number])[address] [place] [address] 73607 Eosinophils (Bld) [#/Vol] 0.8 10*3/uL High 0.0-0.4 [facility] Comment on above: Performed By: #### C BCA, PINR, CMP, ####[facility] ([id number])[address] [place] [address] Eosinophils/100 WBC (Bld) 5.8 % Normal [facility] Comment on above: Performed By: #### C DRE, PINR, CMP, ####[facility] ([id number])[address] [place] [address] 36714 Erythrocyte distribution width (RBC) [Ratio] 13.8 % Normal 11.5-15.0 [facility] Comment on above: Performed By: #### C DRE, PINR, CMP, ####[facility] ([id number])[address] [place] [address] 76345 Hematocrit (Bld) [Volume fraction] 36.1 % Normal 35-47 [facility] Comment on above: Performed By: #### Chanel ERICKSON, PINR, CMP, ####[facility] ([id number])[address] [place] [address] 12836 Hemoglobin (Bld) [Mass/Vol] 12.1 g/dL Normal 11.7-15.5 [facility] Comment on above: Performed By: #### Chanel ERICKSON, PINR, CMP, ####[facility] ([id number])[address] [place] [address] 639[address] Lymphocytes (Bld) [#/Vol] 2.4 10*3/uL Normal 1.0-3.5 [facility] Comment on above: Performed By: #### C BCA, PINR, CMP, ####[facility] ([id number])[address] [place] [address] 98953 Lymphocytes/100 WBC (Bld) 16.6 % Normal [facility] Comment on above: Performed By: #### C BCA, PINR, CMP, ####[facility] ([id number])[address] [place] [address] 37925 MCH (RBC) [Entitic mass] 29.0 pg Normal 27-34 [facility] Comment on above: Performed By: #### C DRE PINR, CMP, ####[facility] ([id number])[address] [place] [address] 69198 MCHC (RBC) [Mass/Vol] 33.6 g/dL Normal 32-36 [facility] Comment on above: Performed By: #### Chanel ERICKSON PINR, CMP, ####[facility] ([id number])[address] [place] [address] 11405 MCV (RBC) [Entitic vol] 86 fL Normal 80-100 [facility] Comment on above: Performed By: #### Chanel ERICKSON PINR, CMP, ####[facility] ([id number])[address] [place] [address] 06559 Monocytes (Bld) [#/Vol] 1.1 10*3/uL High 0-0.9 [facility] Comment on above: Performed By: #### Chanel ERICKSON PINR, CMP, ####[facility] ([id number])[address] [place] [address] 90172 Monocytes/100 WBC (Bld) 7.3 % Normal [facility] Comment on above: Performed By: #### Chanel ERICKSON PINR, CMP, ####[facility] ([id number])[address] [place] [address] 46014 Neutrophils/100 WBC (Bld) 69.3 % Normal [facility] Comment on above: Performed By: #### Chanel ERICKSON PINR, CMP, ####[facility] ([id number])[address] [place] [address] 56133 Platelet mean volume (Bld) [Entitic vol] 8.5 fL Normal 7-12 [facility] Comment on above: Performed By: #### C BCA, PINR, CMP, 21606-6 ####[facility] ([id number])[address] [place] [address] 73984 Platelets (Bld) [#/Vol] 286 10*3/uL Normal 150-450 [facility] Comment on above: Performed By: #### C BCA, PINR, CMP, ####[facility] ([id number])[address] [place] [address] 74397 RBC COUNT 4.19 X10E12/L Normal 3.80-5.20 [facility] Comment on above: Performed By: #### C BCA, PINR, CMP, 91869-6 ####[facility] ([id number])[address] [place] [address] 09466 WBC (Bld) [#/Vol] 14.6 10*3/uL High 4.0-11.0 [facility] Comment on above: Performed By: #### C BCA, PINR, CMP, ####[facility] ([id number])[address] [place] [address] 17427 COMPREHENSIVE METABOLIC PANE [place] 12-23-2023 Albumin [Mass/Vol] 3.1 g/dL Low 3.2-5.3 [facility] Comment on above: Performed By: #### Chanel ERICKSON CMP, 1988-02 #### [facility] ([id number]) [address] [place] [address] 36789 #### 96381-0 #### [facility] ([id number]) [address] [place] [address], [address] [place] [address] ALP [Catalytic activity/Vol] 60 U/L Normal 39-130 [facility] Comment on above: Performed By: #### Chanel ERICKSON CMP, 1988-02 #### [facility] ([id number]) [address] [place] [address] 23946 #### 34699-4 #### [facility] ([id number]) [address], [address] [place] [address] ALT [Catalytic activity/Vol] 12 U/L Normal 0-31 [facility] Comment on above: Performed By: #### Chanel ERICKSON CMP, 1988-02 #### [facility] ([id number]) [address] [place] [address] 54905 #### 98001-9 #### [facility] ([id number]) [address] [facility], [address] [place] [address] Anion gap [Moles/Vol] 9 mmol/L Normal 5-15 [facility] Comment on above: Performed By: #### Chanel ERICKSON CMP, 1988-02 #### [facility] ([id number]) [address] [place] [address] 90028 #### 18563-7 #### [facility] ([id number]) [address] [facility], [address] [place] [address] AST [Catalytic activity/Vol] 14 U/L Normal 0-41 [facility] Comment on above: Performed By: #### Chanel ERICKSON CMP, 1988-02 #### [facility] ([id number]) [address] [place] [address] 31047 #### 37328-0 #### [facility] ([id number]) [address] [place] [address] Bilirubin [Mass/Vol] 0.6 mg/dL Normal 0.3-1.2 [facility] Comment on above: Performed By: #### Chanel ERICKSON CMP, 1988-02 #### [facility] ([id number]) [address] [place] [address] 33746 #### 67754-3 #### [facility] ([id number]) [address] [place] [address] Calcium [Mass/Vol] 8.5 mg/dL Normal 8.5-10.5 [facility] Comment on above: Performed By: #### C SEAN ERICKSON, 1986-02 #### [facility] ([id number]) [address] [place] [address] 40540 #### 54234-3 #### [facility] ([id number]) [address] [place] [address] Chloride [Moles/Vol] 99 mmol/L Normal 98-109 [facility] Comment on above: Performed By: #### C SEAN ERICKSON, 1988-02 #### [facility] ([id number]) [address] [place] [address] 81659 #### 67916-4 #### [facility] ([id number]) [address] [place] [address] CO2 [Moles/Vol] 28 mmol/L Normal 22-32 [facility] Comment on above: Performed By: #### C SEAN ERICKSON, 1988-02 #### [facility] ([id number]) [address] [place] [address] 70211 #### 74599-6 #### [facility] ([id number]) [address] [place] [address] Creatinine [Mass/Vol] 0.75 mg/dL Normal 0.40-1.00 [facility] Comment on above: Result Comment: METH OD TRACEABLE TO IDMS STANDARD Performed By: #### C DRE CMP, 1988-02 #### [facility] ([id number]) [address] [place] [address] 48589 #### 33240-6 #### [facility] ([id number]) [address] [place] [address] GFR/1.73 sq M.predicted among non-blacks MDRD (S/P/Bld) [Vol rate/Area] 85 mL/min/{1.73_m2} Normal >59 [facility] Comment on above: Result Comment: Reported eGFR is based on the CKD-EPI 2020 equation that does not use a race coefficient. Performed By: #### Chanel ERICKSON CMP, 1988-02 #### [facility] ([id number]) [address] [place] [address] 04407 #### 30780-2 #### [facility] ([id number]) [address] [facility], [address] [place] [address] Glucose [Mass/Vol] 122 mg/dL High 65-99 [facility] Comment on above: Performed By: #### Chanel ERICKSON CMP, 1988-02 #### [facility] ([id number]) [address] [place] [address] 12856 #### 06022-8 #### [facility] ([id number]) [address] [place] [address] Potassium [Moles/Vol] 3.5 mmol/L Normal 3.5-5.0 [facility] Comment on above: Performed By: #### Chanel ERICKSON CMP, 1988-02 #### [facility] ([id number]) [address] [place] [address] 17059 #### 20218-7 #### [facility] ([id number]) [address] [place] [address] Protein [Mass/Vol] 7.3 g/dL Normal 6.0-8.0 [facility] Comment on above: Performed By: #### Chanel ERICKSON CMP, 1988-02 #### [facility] ([id number]) [address] [place] [address] 26669 #### 63715-0 #### [facility] ([id number]) [address], [address] [place] [address] Sodium [Moles/Vol] 136 mmol/L Normal 134-146 [facility] Comment on above: Performed By: #### Chanel ERICKSON [facility], 1988-02 #### [facility] ([id number]) [address] [place] [address] 32752 #### 74718-0 #### [facility] ([id number]) [address] [place] [address] Urea nitrogen [Mass/Vol] 15 mg/dL Normal 5-27 [facility] Comment on above: Performed By: #### Chanel ERICKSON [facility], 1988-02 #### [facility] ([id number]) [address] [place] [address] 71636 #### 09013-2 #### [facility] ([id number]) [address] [place] [address] Glucose Glucometer (BldC) [M ass/Vol]on 12-23-2023 Glucose [Mass/Vol] 158 mg/dL High 65-99 [facility] Glucose [Mass/Vol] 141 mg/dL High 65-99 [facility] HGB A1C (GLYCO-HGB)on 2023 Glucose [Mass/Vol] 140 mg/dL Normal [facility] Comment on above: Performed By: #### Chanel ERICKSON CMP, 1988-02 #### [facility] ([id number]) [address] [place] [address] 41545 #### 86557-8 #### [facility] ([id number]) [address] [place] [address] HbA1c (Bld) [Mass fraction] 6.5 % High 4.4-5.6 [facility] Comment on above: Result Comment: NOTE ADA Guidelines Result HgbA1c Normal : less than 5.7 % Prediabetes : 5.7 % to 6.4 % Diabetes : > 6.4 % Use with caution in patients with abnormal hemoglobin variants as the half-life of red blood cells and in vivo glycation rates are affected. Performed By: #### C DRE [facility], 1988-02 #### [facility] ([id number]) [address] [place] [address] 74725 #### 54957-0 #### [facility] ([id number]) [address] [place] [address], [address] [place] [address] MAGNESIUMon 12-23-2023 Magnesium [Mass/Vol] 2.0 mg/dL Normal 1.8-2.6 [facility] Comment on above: Performed By: #### Chanel ERICKSON [facility], 1988-02 #### [facility] ([id number]) [address] [place] [address] 53969 #### 65774-7 #### [facility] ([id number]) [address] [place] [address], [address] [place] [address] POTASSIUMon 12-23-2023 Potassium [Moles/Vol] 4.4 mmol/L Normal 3.5-5.0 [facility] Comment on above: Performed By: #### Chanel ERICKSON [facility], 1988-02 #### [facility] ([id number]) [address] [place] [address] 68402 #### 59789-6 #### [facility] ([id number]) [address] [place] [address], [address] [place] [address] PROTIME AND INRon 12-23-2023 INR Coag (PPP) [Relative time] 2.7 {INR} High 0.8-1.1 [facility] Comment on above: Performed By: #### C BCA, PINR, CMP, ####[facility] ([id number])[address] [place] [address] 785[address] PT Coag (PPP) [Time] 29.9 s High 9.8-13.2 [facility] Comment on above: Result Comment: NEW REFERENCE RANGE Performed By: #### C BCA, PINR, CMP, ####[facility] ([id number])[address] [place] [address] 690[address] CBC AND AUTO DIFFon 12-22-19 24 ABSOLUTE BASOPHIL 0.2 X10E9/L Normal 0.0-0.2 [facility] Comment on above: Performed By: #### P INR, CMP, , CBCA ####[facility] ([id number])[address] [place] [address] 10747 ABSOLUTE NEUTROPHIL 10.5 X10E9/L High 1.5-6.6 [facility] Comment on above: Performed By: #### P INR, CMP, , CBCA ####[facility] ([id number])[address] [place] [address] 19941 Basophils/100 WBC (Bld) 1.0 % Normal [facility] Comment on above: Performed By: #### P INR, CMP, , CBCA ####[facility] ([id number])[address] [place] [address] 18841 Eosinophils (Bld) [#/Vol] 1.1 10*3/uL High 0.0-0.4 [facility] Comment on above: Performed By: #### P INR, CMP, , CBCA ####[facility] ([id number])[address] [place] [address] 25527 Eosinophils/100 WBC (Bld) 6.9 % Normal [facility] Comment on above: Performed By: #### P INR, CMP, , CBCA ####[facility] ([id number])[address] [place] [address] 30805 Erythrocyte distribution width (RBC) [Ratio] 13.7 % Normal 11.5-15.0 [facility] Comment on above: Performed By: #### P INR, CMP, , CBCA ####[facility] ([id number])[address] [place] [address] 59529 Hematocrit (Bld) [Volume fraction] 34.0 % Low 35-47 [facility] Comment on above: Performed By: #### P INR, CMP, , CBCA ####[facility] ([id number])[address] [place] [address] 40465 Hemoglobin (Bld) [Mass/Vol] 11.4 g/dL Low 11.7-15.5 [facility] Comment on above: Performed By: #### P INR, CMP, , CBCA ####[facility] ([id number])[address] [place] [address] 37253 Lymphocytes (Bld) [#/Vol] 3.5 10*3/uL Normal 1.0-3.5 [facility] Comment on above: Performed By: #### P INR, CMP, , CBCA ####[facility] ([id number])[address] [place] [address] 19501 Lymphocytes/100 WBC (Bld) 21.4 % Normal [facility] Comment on above: Performed By: #### P INR, CMP, , CBCA ####[facility] ([id number])[address] [place] [address] 23715 MCH (RBC) [Entitic mass] 29.1 pg Normal 27-34 [facility] Comment on above: Performed By: #### P INR, CMP, , CBCA ####[facility] ([id number])[address] [place] [address] 29918 MCHC (RBC) [Mass/Vol] 33.6 g/dL Normal 32-36 [facility] Comment on above: Performed By: #### P INR, CMP, , CBCA ####[facility] ([id number])[address] [place] [address] 07768 MCV (RBC) [Entitic vol] 87 fL Normal 80-100 [facility] Comment on above: Performed By: #### P INR, CMP, , CBCA ####[facility] ([id number])[address] [place] [address] 66051 Monocytes (Bld) [#/Vol] 0.9 10*3/uL Normal 0-0.9 [facility] Comment on above: Performed By: #### P INR, CMP, , CBCA ####[facility] ([id number])[address] [place] [address] 62556 Monocytes/100 WBC (Bld) 5.8 % Normal [facility] Comment on above: Performed By: #### P INR, CMP, , CBCA ####[facility] ([id number])[address] [place] [address] 20510 Neutrophils/100 WBC (Bld) 64.9 % Normal [facility] Comment on above: Performed By: #### P INR, CMP, , CBCA ####[facility] ([id number])[address] [place] [address] 15973 Platelet mean volume (Bld) [Entitic vol] 8.8 fL Normal 7-12 [facility] Comment on above: Performed By: #### P INR, CMP, , CBCA ####[facility] ([id number])[address] [place] [address] 12684 Platelets (Bld) [#/Vol] 258 10*3/uL Normal 150-450 [facility] Comment on above: Performed By: #### P INR, CMP, , CBCA ####[facility] ([id number])[address] [place] [address] 84524 RBC COUNT 3.92 X10E12/L Normal 3.80-5.20 [facility] Comment on above: Performed By: #### P INR, CMP, , CBCA ####[facility] ([id number])[address] [place] [address] 33885 WBC (Bld) [#/Vol] 16.2 10*3/uL High 4.0-11.0 [facility] Comment on above: Performed By: #### P INR, CMP, , CBCA ####[facility] ([id number])[address] [place] [address] 09427 COMPREHENSIVE METABOLIC PANE Tyrone 12-22-2023 Albumin [Mass/Vol] 3.4 g/dL Normal 3.2-5.3 [facility] Comment on above: Performed By: #### P INR, CMP, , CBCA ####[facility] ([id number])[address] [place] [address] 31868 ALP [Catalytic activity/Vol] 59 U/L Normal 39-130 [facility] Comment on above: Performed By: #### P INR, CMP, , CBCA ####[facility] ([id number])[address] [place] [address] 44049 ALT [Catalytic activity/Vol] 11 U/L Normal 0-31 [facility] Comment on above: Performed By: #### P INR, CMP, , CBCA ####[facility] ([id number])[address] [place] [address] 26573 Anion gap [Moles/Vol] 11 mmol/L Normal 5-15 [facility] Comment on above: Performed By: #### P INR, CMP, , CBCA ####[facility] ([id number])[address] [place] [address] [place] [address] AST [Catalytic activity/Vol] 14 U/L Normal 0-41 [facility] Comment on above: Performed By: #### P INR, CMP, , CBCA ####[facility] ([id number])[address] [place] [address] 98037 Bilirubin [Mass/Vol] 0.8 mg/dL Normal 0.3-1.2 [facility] Comment on above: Performed By: #### P INR, CMP, , CBCA ####[facility] ([id number])[address] [place] [address] 22273 Calcium [Mass/Vol] 8.5 mg/dL Normal 8.5-10.5 [facility] Comment on above: Performed By: #### P INR, CMP, , CBCA ####[facility] ([id number])[address] [place] [address] 60135 Chloride [Moles/Vol] 98 mmol/L Normal 98-109 [facility] Comment on above: Performed By: #### P INR, CMP, , CBCA ####[facility] ([id number])[address] [place] [address] 63375 CO2 [Moles/Vol] 26 mmol/L Normal 22-32 [facility] Comment on above: Performed By: #### P INR, CMP, , CBCA ####[facility] ([id number])[address] [place] [address] 34177 Creatinine [Mass/Vol] 0.78 mg/dL Normal 0.40-1.00 [facility] Comment on above: Result Comment: METH OD TRACEABLE TO IDMS STANDARD Performed By: #### P INR, CMP, , CBCA ####[facility] ([id number])[address] [place] [address] 85880 GFR/1.73 sq M.predicted among non-blacks MDRD (S/P/Bld) [Vol rate/Area] 81 mL/min/{1.73_m2} Normal >59 [facility] Comment on above: Result Comment: Reported eGFR is based on the CKD-EPI 2020 equation that does not use a race coefficient. Performed By: #### P INR, CMP, , CBCA ####[facility] ([id number])[address] [place] [address] 24650 Glucose [Mass/Vol] 121 mg/dL High 65-99 [facility] Comment on above: Performed By: #### P INR, CMP, , CBCA ####[facility] ([id number])[address] [place] [address] 02562 Potassium [Moles/Vol] 3.5 mmol/L Normal 3.5-5.0 [facility] Comment on above: Performed By: #### P INR, CMP, , CBCA ####[facility] ([id number])[address] [place] [address] 71815 Protein [Mass/Vol] 7.2 g/dL Normal 6.0-8.0 [facility] Comment on above: Performed By: #### P INR, CMP, , CBCA ####[facility] ([id number])[address] [place] [address] 22430 Sodium [Moles/Vol] 135 mmol/L Normal 134-146 [facility] Comment on above: Performed By: #### P INR, CMP, , CBCA ####[facility] ([id number])[address] [place] [address] 72599 Urea nitrogen [Mass/Vol] 15 mg/dL Normal 5-27 [facility] Comment on above: Performed By: #### P INR, CMP, , CBCA ####[facility] ([id number])[address] [place] [address] 21704 Glucose Glucometer (BldC) [M ass/Vol]on 12-22-2023 Glucose [Mass/Vol] 147 mg/dL High 65-99 [facility] Glucose [Mass/Vol] 136 mg/dL High 65-99 [facility] Glucose [Mass/Vol] 120 mg/dL High 65-99 [facility] MAGNESIUMon 12-22-2023 Magnesium [Mass/Vol] 2.0 mg/dL Normal 1.8-2.6 [facility] Comment on above: Performed By: #### P INR, CMP, , CBCA ####[facility] ([id number])[address] [place] [address] 13064 PROTIME AND INRon 12-22-2023 INR Coag (PPP) [Relative time] 2.6 {INR} High 0.8-1.1 [facility] Comment on above: Performed By: #### P INR, CMP, , CBCA ####[facility] ([id number])[address] [place] [address] 22294 PT Coag (PPP) [Time] 29.0 s High 9.8-13.2 [facility] Comment on above: Result Comment: NEW REFERENCE RANGE Performed By: #### P INR, CMP, , CBCA ####[facility] ([id number])[address] [place] [address], [place] [address] Vancomycin trough [Mass/Vol] on 12-22-2023 VANCOMYCIN TROUGH 15.2 ug/mL Normal 5.0-20.0 [facility] Comment on above: Performed By: #### 4 092-3 ####[facility] ([id number])[address] [place] [address] 67147 CBC AND AUTO DIFFon 12-21-19 ABSOLUTE BASOPHIL 0.1 X10E9/L Normal 0.0-0.2 [facility] Comment on above: Performed By: #### Chanel ERICKSON [facility], 16114-8 #### [facility] ([id number]) [address] [place] [address] 56247 ABSOLUTE NEUTROPHIL 11.5 X10E9/L High 1.5-6.6 [facility] Comment on above: Performed By: #### Chanel ERICKSON [facility], #### [facility] ([id number]) [address] [place] [address] 02983 Basophils/100 WBC (Bld) 0.8 % Normal [facility] Comment on above: Performed By: #### Chanel ERICKSON [facility], #### [facility] ([id number]) [address] [place] [address] 67719 Eosinophils (Bld) [#/Vol] 0.3 10*3/uL Normal 0.0-0.4 [facility] Comment on above: Performed By: #### Chanel ERICKSON [facility], #### [facility] ([id number]) [address] [place] [address] 48928 Eosinophils/100 WBC (Bld) 2.2 % Normal [facility] Comment on above: Performed By: #### Chanel ERICKSON [facility], #### [facility] ([id number]) [address] [place] [address] 54147 Erythrocyte distribution width (RBC) [Ratio] 14.0 % Normal 11.5-15.0 [facility] Comment on above: Performed By: #### Chanel ERICKSON [facility], #### [facility] ([id number]) [address] [place] [address] 94488 Hematocrit (Bld) [Volume fraction] 34.8 % Low 35-47 [facility] Comment on above: Performed By: #### Chanel ERICKSON [facility], #### [facility] ([id number]) [address] [place] [address] 72419 Hemoglobin (Bld) [Mass/Vol] 11.4 g/dL Low 11.7-15.5 [facility] Comment on above: Performed By: #### Chanel ERICKSON [facility], #### [facility] ([id number]) [address] [place] [address] 96321 Lymphocytes (Bld) [#/Vol] 2.0 10*3/uL Normal 1.0-3.5 [facility] Comment on above: Performed By: #### Chanel ERICKSON [facility], #### [facility] ([id number]) [address] [place] [address] 03698 Lymphocytes/100 WBC (Bld) 13.2 % Normal [facility] Comment on above: Performed By: #### Chanel ERICKSON [facility], #### [facility] ([id number]) [address] [place] [address] 63877 MCH (RBC) [Entitic mass] 28.5 pg Normal 27-34 [facility] Comment on above: Performed By: #### Chanel ERICKSON [facility], #### [facility] ([id number]) [address] [place] [address] 41233 MCHC (RBC) [Mass/Vol] 32.6 g/dL Normal 32-36 [facility] Comment on above: Performed By: #### C DRE, CMP, 05013-1 #### [facility] ([id number]) [address] [place] [address] 03051 MCV (RBC) [Entitic vol] 87 fL Normal 80-100 [facility] Comment on above: Performed By: #### C DRE, CMP, #### [facility] ([id number]) [address] [place] [address] 39493 Monocytes (Bld) [#/Vol] 1.3 10*3/uL High 0-0.9 [facility] Comment on above: Performed By: #### Chanel ERICKSON, CMP, #### [facility] ([id number]) [address] [place] [address] 92022 Monocytes/100 WBC (Bld) 8.7 % Normal [facility] Comment on above: Performed By: #### Chanel BCA, CMP, #### [facility] ([id number]) [address] [place] [address] 44791 Neutrophils/100 WBC (Bld) 75.1 % Normal [facility] Comment on above: Performed By: #### Chanel ERICKSON, CMP, #### [facility] ([id number]) [address] [place] [address] 50583 Platelet mean volume (Bld) [Entitic vol] 8.8 fL Normal 7-12 [facility] Comment on above: Performed By: #### Chanel BCA, CMP, #### [facility] ([id number]) [address] [place] [address] 57349 Platelets (Bld) [#/Vol] 257 10*3/uL Normal 150-450 [facility] Comment on above: Performed By: #### Chanel BCA, CMP, #### [facility] ([id number]) [address] [place] [address] 03895 RBC COUNT 3.98 X10E12/L Normal 3.80-5.20 [facility] Comment on above: Performed By: #### C BCA, CMP, 87087-6 #### [facility] ([id number]) [address] [place] [address] 31759 WBC (Bld) [#/Vol] 15.3 10*3/uL High 4.0-11.0 [facility] Comment on above: Performed By: #### C BCA, CMP, #### [facility] ([id number]) [address] [place] [address] 94233 COMPREHENSIVE METABOLIC PANE Tyrone 12-21-2023 Albumin [Mass/Vol] 3.3 g/dL Normal 3.2-5.3 [facility] Comment on above: Performed By: #### C BCA, CMP, ####[facility] ([id number])[address] [place] [address] 25140 ALP [Catalytic activity/Vol] 59 U/L Normal 39-130 [facility] Comment on above: Performed By: #### C BCA, CMP, 33601-2 ####[facility] ([id number])[address] [place] [address] 76089 ALT [Catalytic activity/Vol] 13 U/L Normal 0-31 [facility] Comment on above: Performed By: #### C BCA, CMP, 85714-9 ####[facility] ([id number])[address] [place] [address] 32801 Anion gap [Moles/Vol] 11 mmol/L Normal 5-15 [facility] Comment on above: Performed By: #### C BCA, CMP, 84645-5 ####[facility] ([id number])[address] [place] [address] 37120 AST [Catalytic activity/Vol] 11 U/L Normal 0-41 [facility] Comment on above: Performed By: #### C SEAN ERICKSON, 66122-8 ####[facility] ([id number])[address] [place] [address] 56656 Bilirubin [Mass/Vol] 1.0 mg/dL Normal 0.3-1.2 [facility] Comment on above: Performed By: #### C SEAN ERICKSON, ####[facility] ([id number])[address] [place] [address] 98690 Calcium [Mass/Vol] 8.5 mg/dL Normal 8.5-10.5 [facility] Comment on above: Performed By: #### Chanel ERICKSON CMP, ####[facility] ([id number])[address] [place] [address] 48393 Chloride [Moles/Vol] 101 mmol/L Normal 98-109 [facility] Comment on above: Performed By: #### C SEAN ERICKSON, 96582-1 ####[facility] ([id number])[address] [place] [address] 20843 CO2 [Moles/Vol] 25 mmol/L Normal 22-32 [facility] Comment on above: Performed By: #### C SEAN ERICKSON, ####[facility] ([id number])[address] [place] [address] 36665 Creatinine [Mass/Vol] 0.66 mg/dL Normal 0.40-1.00 [facility] Comment on above: Result Comment: METH OD TRACEABLE TO IDMS STANDARD Performed By: #### C SEAN ERICKSON, ####[facility] ([id number])[address] [place] [address] 16569 eGFR (CKD-EPI) NON-RACE DEPENDENT >90 Normal >59 [facility] Comment on above: Result Comment: Reported eGFR is based on the CKD-EPI 2020 equation that does not use a race coefficient. Performed By: #### C SEAN ERICKSON, ####[facility] ([id number])[address] [place] [address] 79102 Glucose [Mass/Vol] 132 mg/dL High 65-99 [facility] Comment on above: Performed By: #### Chanel ERICKSON CMP, ####[facility] ([id number])[address] [place] [address] 32193 Potassium [Moles/Vol] 3.5 mmol/L Normal 3.5-5.0 [facility] Comment on above: Performed By: #### Chanel ERICKSON CMP, ####[facility] ([id number])[address] [place] [address] 71481 Protein [Mass/Vol] 7.0 g/dL Normal 6.0-8.0 [facility] Comment on above: Performed By: #### C DRE [facility], 52698-1 ####[facility] ([id number])[address] [place] [address] 24576 Sodium [Moles/Vol] 137 mmol/L Normal 134-146 [facility] Comment on above: Performed By: #### Chanel ERICKSON CMP, 12350-7 ####[facility] ([id number])[address] [place] [address] 39555 Urea nitrogen [Mass/Vol] 15 mg/dL Normal 5-27 [facility] Comment on above: Performed By: #### Chanel ERICKSON CMP, 22514-5 ####[facility] ([id number])[address] [place] [address] 02720 Glucose Glucometer (BldC) [M ass/Vol]on 12-21-2023 Glucose [Mass/Vol] 130 mg/dL High 65-99 [facility] Glucose [Mass/Vol] 153 mg/dL High 65-99 [facility] Glucose [Mass/Vol] 206 mg/dL High 65-99 [facility] MAGNESIUMon 12-21-2023 Magnesium [Mass/Vol] 2.2 mg/dL Normal 1.8-2.6 [facility] Comment on above: Performed By: #### C BCA, [facility], 35120-0 ####[facility] ([id number])[address] [place], [place] [address] MR FOOT LT W WO CONTon 12-20 [...] Garcia MD on 12/21/2023 1:06 PM Normal [facility] POTASSIUMon 12-21-2023 Potassium [Moles/Vol] 3.8 mmol/L Normal 3.5-5.0 [facility] Comment on above: Performed By: #### 2 823-3 ####[facility] ([id number])[address] [place] [address] 22484 PROTIME AND INRon 12-21-2023 INR Coag (PPP) [Relative time] 2.4 {INR} High 0.8-1.1 [facility] Comment on above: Performed By: #### P INR ####[facility] ([id number])[address] [place] [address] 39230 PT Coag (PPP) [Time] 27.0 s High 9.8-13.2 [facility] Comment on above: Result Comment: NEW REFERENCE RANGE Performed By: #### P INR ####[facility] ([id number])[address] [place] [address] 33898 BLOOD CULTUREon 12-20-2023 Bacteria identified Aer cx Nom (Bld) SPECIMEN NOTES RSURFACE VEIN CULTURE RESULTS NO GROWTH 5 DAYS Normal [facility] Comment on above: Performed By: #### 1 7928-3 ####[facility] ([id number])[address] [place] [address] 04968 Bacteria identified Aer cx Nom (Bld) SPECIMEN NOTES SUBOPTIMAL VOLUME OF BLOOD COLLECTED, RESULTS MAY BE AFFECTED. CULTURE RESULTS NO GROWTH 5 DAYS Normal [facility] Comment on above: Performed By: #### 1 7928-3 ####[facility] ([id number])[address] [place] [address], [address] [place] [address] 79813 CBC AND AUTO DIFFon 12-20-19 24 ABSOLUTE BASOPHIL 0.1 X10E9/L Normal 0.0-0.2 [facility] Comment on above: Performed By: #### C SEAN ERICKSON, 1986-02 #### [facility] ([id number]) [address] [place] [address] 17078 #### 00668-1 #### [facility] ([id number]) [facility], [address] [place] [address] 64329 ABSOLUTE NEUTROPHIL 12.0 X10E9/L High 1.5-6.6 [facility] Comment on above: Performed By: #### C SEAN ERICKSON, 1986-02 #### [facility] ([id number]) [address] [place] [address] 80841 #### 19088-6 #### [facility] ([id number]) [address] [place] [address] Basophils/100 WBC (Bld) 0.5 % Normal [facility] Comment on above: Performed By: #### Chanel ERICKSON CMP, 1986-02 #### [facility] ([id number]) [address] [place] [address] 44304 #### 16969-6 #### [facility] ([id number]) [address] [facility], [address] [place] [address] Eosinophils (Bld) [#/Vol] 0.3 10*3/uL Normal 0.0-0.4 [facility] Comment on above: Performed By: #### Chanel ERICKSON CMP, 1986-02 #### [facility] ([id number]) [address] [place] [address] 69849 #### 70174-3 #### [facility] ([id number]) [address] [facility], [address] [place] [address] Eosinophils/100 WBC (Bld) 2.0 % Normal [facility] Comment on above: Performed By: #### Chanel ERICKSON CMP, 1986-02 #### [facility] ([id number]) [address] [place] [address] 20642 #### 07866-4 #### [facility] ([id number]) [address] [place] [address] Erythrocyte distribution width (RBC) [Ratio] 14.0 % Normal 11.5-15.0 [facility] Comment on above: Performed By: #### Chanel ERICKSON CMP, 1986-02 #### [facility] ([id number]) [address] [place] [address] 04699 #### 29741-6 #### [facility] ([id number]) [address] [facility], [address] [place] [address] Hematocrit (Bld) [Volume fraction] 36.1 % Normal 35-47 [facility] Comment on above: Performed By: #### Chanel ERICKSON CMP, 1986-02 #### [facility] ([id number]) [address] [place] [address] 05399 #### 81336-9 #### [facility] ([id number]) [address] [facility], [address] [place] [address] Hemoglobin (Bld) [Mass/Vol] 12.1 g/dL Normal 11.7-15.5 [facility] Comment on above: Performed By: #### Chanel ERICKSON CMP, 1986-02 #### [facility] ([id number]) [address] [place] [address] 93818 #### 68769-9 #### [facility] ([id number]) [address] [facility], [address] [place] [address] Lymphocytes (Bld) [#/Vol] 2.4 10*3/uL Normal 1.0-3.5 [facility] Comment on above: Performed By: #### Chanel ERICKSON CMP, 1986-02 #### [facility] ([id number]) [address] [place] [address] 11088 #### 02772-3 #### [facility] ([id number]) [address] [facility], [address] [place] [address] Lymphocytes/100 WBC (Bld) 14.9 % Normal [facility] Comment on above: Performed By: #### Chanel ERICKSON CMP, 1986-02 #### [facility] ([id number]) [address] [place] [address] 62433 #### 74911-8 #### [facility] ([id number]) [address] [place] [address] MCH (RBC) [Entitic mass] 28.9 pg Normal 27-34 [facility] Comment on above: Performed By: #### C SEAN ERICKSON, 1986-02 #### [facility] ([id number]) [address] [place] [address] 54760 #### 46910-6 #### [facility] ([id number]) [address] [place] [address] MCHC (RBC) [Mass/Vol] 33.5 g/dL Normal 32-36 [facility] Comment on above: Performed By: #### Chanel ERICKSON CMP, 1988-02 #### [facility] ([id number]) [address] [place] [address] 46778 #### 35962-8 #### [facility] ([id number]) [address] [place] [address] MCV (RBC) [Entitic vol] 86 fL Normal 80-100 [facility] Comment on above: Performed By: #### Chanel ERICKSON CMP, 1988-02 #### [facility] ([id number]) [address] [place] [address] 02916 #### 79471-1 #### [facility] ([id number]) [address] [place] [address] Monocytes (Bld) [#/Vol] 1.5 10*3/uL High 0-0.9 [facility] Comment on above: Performed By: #### Chanel ERICKSON CMP, 1988-02 #### [facility] ([id number]) [address] [place] [address] 28443 #### 44260-1 #### [facility] ([id number]) [address] [place] [address] Monocytes/100 WBC (Bld) 9.3 % Normal [facility] Comment on above: Performed By: #### Chanel ERICKSON CMP, 1986-02 #### [facility] ([id number]) [address] [place] [address] 44563 #### [id number] #### [facility] ([id number]) [address], [address] [place] [address] Neutrophils/100 WBC (Bld) 73.3 % Normal [facility] Comment on above: Performed By: #### Chanel ERICKSON CMP, 1986-02 #### [facility] ([id number]) [address] [place] [address] 79208 #### [id number] #### [facility] ([id number]) [address], [address] [place] [address] Platelet mean volume (Bld) [Entitic vol] 8.4 fL Normal 7-12 [facility] Comment on above: Performed By: #### Chanel ERICKSON CMP, 1988-02 #### [facility] ([id number]) [address] [place] [address] 32316 #### [id number] #### [facility] ([id number]) [address], [address] [place] [address] Platelets (Bld) [#/Vol] 282 10*3/uL Normal 150-450 [facility] Comment on above: Performed By: #### Chanel ERICKSON CMP, 1988-02 #### [facility] ([id number]) [address] [place] [address] 31283 #### [id number] #### [facility] ([id number]) [address], [address] [place] [address] RBC COUNT 4.18 X10E12/L Normal 3.80-5.20 [facility] Comment on above: Performed By: #### C DRE CMP, 1988-02 #### [facility] ([id number]) [address] [place] [address] 13374 #### [id number] #### [facility] ([id number]) [address], [address] [place] [address] WBC (Bld) [#/Vol] 16.4 10*3/uL High 4.0-11.0 [facility] Comment on above: Performed By: #### Chanel ERICKSON [facility], 1986-02 #### [facility] ([id number]) [address] [place] [address] 84201 #### [id number] #### [place] [facility] ([id number]) 0 [facility], [address] [place] [address] COMPREHENSIVE METABOLIC PANE Tyrone 12-20-2023 Albumin [Mass/Vol] 3.7 g/dL Normal 3.2-5.3 [facility] Comment on above: Performed By: #### Chanel ERICKSON [facility], 1988-02 #### [facility] ([id number]) [address] [place] [address] 94931 #### [id number] #### [facility] ([id number]) [address], [address] [place] [address] ALP [Catalytic activity/Vol] 74 U/L Normal 39-130 [facility] Comment on above: Performed By: #### C DRE CMP, 1988-02 #### [facility] ([id number]) [address] [place] [address] 36158 #### [id number] #### [facility] ([id number]) 0 [facility], [address] [place] [address] ALT [Catalytic activity/Vol] 15 U/L Normal 0-31 [facility] Comment on above: Performed By: #### Chanel ERICKSON, CMP, 1988-02 #### [facility] ([id number]) [address] [place] [address] 15285 #### [id number] #### [facility] ([id number]) [address], [address] [place] [address] Anion gap [Moles/Vol] 6 mmol/L Normal 5-15 [facility] Comment on above: Performed By: #### Chanel BCA, CMP, 1988-02 #### [facility] ([id number]) [address] [place] [address] 31919 #### [id number] #### [facility] ([id number]) [address] [place] [address] AST [Catalytic activity/Vol] 17 U/L Normal 0-41 [facility] Comment on above: Performed By: #### Chanel BCA, CMP, 1988-02 #### [facility] ([id number]) [address] [place] [address] 44316 #### [id number] #### [facility] ([id number]) [address] [place] [address] Bilirubin [Mass/Vol] 0.4 mg/dL Normal 0.3-1.2 [facility] Comment on above: Performed By: #### Chanel BCA, CMP, 1988-02 #### [facility] ([id number]) [address] [place] [address] 46844 #### [id number] #### [facility] ([id number]) [address] [place] [address] Calcium [Mass/Vol] 8.3 mg/dL Low 8.5-10.5 [facility] Comment on above: Performed By: #### C BCA, [facility], 1988-02 #### [facility] ([id number]) [address] [place] [address] 55194 #### [id number] #### [facility] ([id number]) [address] [place] [address] Chloride [Moles/Vol] 101 mmol/L Normal 98-109 [facility] Comment on above: Performed By: #### C BCA, [facility], 1988-02 #### [facility] ([id number]) [address] [place] [address] 47300 #### [id number] #### [facility] ([id number]) [address] [place] [address] CO2 [Moles/Vol] 26 mmol/L Normal 22-32 [facility] Comment on above: Performed By: #### C DRE [facility], 1988-02 #### [facility] ([id number]) [address] [place] [address] 10680 #### [id number] #### [facility] ([id number]) [address] [place] [address] Creatinine [Mass/Vol] 0.69 mg/dL Normal 0.40-1.00 [facility] Comment on above: Result Comment: METH OD TRACEABLE TO IDMS STANDARD Performed By: #### C BCA, [facility], 1988-02 #### [facility] ([id number]) [address] [place] [address] 39521 #### [id number] #### [facility] ([id number]) [address] [place] [address] eGFR (CKD-EPI) NON-RACE DEPENDENT >90 Normal >59 [facility] Comment on above: Result Comment: Reported eGFR is based on the CKD-EPI 2020 equation that does not use a race coefficient. Performed By: #### C DRE [facility], 1988-02 #### [facility] ([id number]) [address] [place] [address] 19107 #### [id number] #### [facility] ([id number]) [address] [place] [address] Glucose [Mass/Vol] 132 mg/dL High 65-99 [facility] Comment on above: Performed By: #### C DRE, [facility], 1988-02 #### [facility] ([id number]) [address] [place] [address] 95996 #### [id number] #### [facility] ([id number]) [address] [place] [address] Potassium [Moles/Vol] 3.8 mmol/L Normal 3.5-5.0 [facility] Comment on above: Performed By: #### C DRE [facility], 1988-02 #### [facility] ([id number]) [address] [place] [address] 38081 #### [id number] #### [facility] ([id number]) [address] [place] [address] Protein [Mass/Vol] 7.9 g/dL Normal 6.0-8.0 [facility] Comment on above: Performed By: #### C DRE, [facility], 1988-02 #### [facility] ([id number]) [address] [place] [address] 29659 #### [id number] #### [facility] ([id number]) [address] [place] [address] Sodium [Moles/Vol] 133 mmol/L Low 134-146 [facility] Comment on above: Performed By: #### Chanel ERICKSON [facility], 1988-02 #### [facility] ([id number]) [address] [place] [address] 38824 #### [id number] #### [facility] ([id number]) [address] [facility], [address] [place] [address] Urea nitrogen [Mass/Vol] 16 mg/dL Normal 5-27 [facility] Comment on above: Performed By: #### Chanel ERICKSON [facility], 1988-02 #### [facility] ([id number]) [address] [place] [address] 18484 #### [id number] #### [facility] ([id number]) [address] [facility], [address] [place] [address] CRP [Mass/Vol]on 12-20-2023 C REACTIVE PROTEIN 11.8 mg/dL High 0.000-0.744 [facility] Comment on above: Performed By: #### Chanel ERICKSON [facility], 1988-02 #### [facility] ([id number]) [address] [place] [address] 25973 #### [id number] #### [facility] ([id number]) [address] [facility], [address] [place] [address] ESR Photometric method (Bld) [Velocity]on 12-20-2023 ESR, ERYTHROCYTE SEDIMENTATION RATE 60 mm/h High 0-30 [facility] Comment on above: Performed By: #### Chanel ERICKSON [facility], 1988-02 #### [facility] ([id number]) [address] [place] [address] 41923 #### [id number] #### [facility] ([id number]) [address] [facility], [address] [place] [address] Glucose Glucometer (BldC) [M ass/Vol]on 12-20-2023 Glucose [Mass/Vol] 174 mg/dL High 65-99 [facility] URINALYSISon 12-20-2023 Bilirubin Ql (U) Negative Normal NEG [facility] Comment on above: Performed By: #### U A #### [facility] ([id number]) [address] [place] [address] BLOOD/HGB Negative Normal NEG [facility] Comment on above: Performed By: #### U A #### [facility] ([id number]) [address] [place] [address] 57178 Color (U) YELLOW Normal YELLOW [facility] Comment on above: Performed By: #### U A #### [facility] ([id number]) [address] [place] [address] 90276 Glucose Ql (U) Negative Normal NEG [facility] Comment on above: Performed By: #### U A #### [facility] ([id number]) [address] [place] [address] 68195 Ketones Ql (U) Negative Normal NEG [facility] Comment on above: Performed By: #### U A #### [facility] ([id number]) [address] [place] [address] 02563 Leukocyte esterase Test strip Ql (U) Negative Normal NEG [facility] Comment on above: Performed By: #### U A #### [facility] ([id number]) [address] [place] [address]37[address] Nitrite Ql (U) Positive Abnormal NEG [facility] Comment on above: Performed By: #### U A #### [facility] ([id number]) [address] [place] [address] 86987 pH (U) 6.0 [pH] Normal 5.0-8.5 [facility] Comment on above: Performed By: #### U A #### [facility] ([id number]) [address] [place] [address] 84865 Protein Ql (U) Negative Normal NEG [facility] Comment on above: Performed By: #### U A #### [facility] ([id number]) [address] [place] [address] 59501 R.B.CELLS 0 /hpf Normal 0-5 [facility] Comment on above: Performed By: #### U A #### [facility] ([id number]) [address] [place] [address] 87042 Specific gravity (U) [Rel density] 1.015 Normal 1.003-1.035 [facility] Comment on above: Performed By: #### U A #### [facility] ([id number]) [address] [place] [address] 02227 SQUAMOUS EPITHELIUM 0 to 3 Normal 0-5 [facility] Comment on above: Performed By: #### U A #### [facility] ([id number]) [address] [place] [address] 33551 TURBIDITY CLEAR Normal CLEAR [facility] Comment on above: Performed By: #### U A #### [facility] ([id number]) [address] [place] [address] 75300 Urobilinogen Qn (U) 0.2 {Mindy'U}/dL Normal <1.1 [facility] Comment on above: Performed By: #### U A #### [facility] ([id number]) [address] [place] [address] 12753 W.B.CELLS 0 to 1 Normal 0-5 [facility] Comment on above: Performed By: #### U A #### [facility] ([id number]) [address] [place] [address] 74879 XR FOOT LT MIN 3 VWSon XR [...] Bradshaw MD on 12/20/2023 6:37 PM Normal [facility] XR FOOT RT MIN 3 VWSon [...] Bradshaw MD on 12/20/2023 5:56 PM Normal [facility] XR KNEE RT 3 VWSon XR KNEE RT 3 VWS XR KNEE RT 3 VWS XR KNEE RT 3 VWS CLINICAL INFORMATION: Right knee pain. Fall. Pain. COMPARISON: None. IMPRESSION: * No evidence of acute fracture. 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 No large joint effusion. Osteopenia. Finalized by Andreas Araujo MD on 12/20/2023 5:05 PM [facility] 36on 11-16-2023 36 Please let her know her cholesterol levels look good. Continue pravastatin. Thanks [facility] Telephoneon 11-16-2023 Telephone [phone] Maximo Gill 1950 Date Provider Department Center 11/16/2023 EBER PAGAN CHING Tavera Family History Problem Relation Age of Onset Heart attack Father Diabetes Father Hypertension Father Coronary artery disease Father Rheum arthritis Father Family Status - Relation Status Age at Father [facility] 37on 11-01-2023 37 *Increase amlodipine to 10mg daily. You can take 2 tablets of your current 5mg prescription daily until this runs out then start new prescription of 1 - 10mg tablet daily. *Monitor your blood pressure daily 1-2 hours after medications *Have labs drawn *Follow-up with GI given dark stools [facility] Office Visiton 11-01-2023 Follow-up visit [id number] Maximo Gill 1950 Date Provider Department Center 11/01/2023 EBER PAGAN CHING Salazar Family History Problem Relation Age of Onset Heart attack Father Diabetes Father Hypertension Father Coronary artery disease Father Rheum arthritis Father Family Status - Relation Status Age at Father Level of Service:76888 [place] OFFICE/OUTPATIENT ESTABLISHED MOD MDM 30 MIN Reason for Visit and Comments: Atrial Fibrillation [80] Congestive Heart Failure [127] [facility] Office Visiton 05-23-2023 Follow-up visit [id number] Maximo Gill 1950 Date Provider Department Center 05/23/2023 RAMAN CASTANEDA CHING Salazar Family History Problem Relation Age of Onset Heart attack Father Diabetes Father Hypertension Father Coronary artery disease Father Rheum arthritis Father Family Status - Relation Status Age at Father Level of Service:94102 [place] OFFICE/OUTPATIENT ESTABLISHED LOW MDM 20-29 MIN [facility] CBC AUTO DIFFon 03-02-2023 BASO # 0.1 103/ul Normal 0.0-0.1 [facility] Comment on above: Performed By: #### C BC #### [facility] [address] [address] [address] Yandy Rodarte Basophils/100 WBC (Bld) 0.4 % Normal 0.2-2.0 [facility] Comment on above: Performed By: #### C BC #### [facility] [address] [address] [address] Yandy Rodarte EO # 0.5 103/ul Normal 0.0-0.7 [facility] Comment on above: Performed By: #### C BC #### [facility] [address] [place] [address] Dr. Yandy Rodarte Eosinophils/100 WBC (Bld) 4.1 % Normal 0.9-7.0 [facility] Comment on above: Performed By: #### C BC #### [facility] [address] [place] [address] Dr. Yandy Rodarte Erythrocyte distribution width (RBC) [Ratio] 14.0 % Normal 11.0-15.0 [facility] Comment on above: Performed By: #### C BC #### [facility] [address] [place] [address] Dr. Yandy Rodarte Hematocrit (Bld) [Volume fraction] 42.8 % Normal 36.0-48.0 [facility] Comment on above: Performed By: #### C BC #### [facility] [address] [place] [address] Dr. Yandy Rodarte Hemoglobin (Bld) [Mass/Vol] 13.6 g/dL Normal 12.0-16.0 [facility] Comment on above: Performed By: #### C BC #### [facility] [address] [place] [address] Dr. Yandy Rodarte IG # 0.04 10e3/ul Critically high 0.00-0.03 [facility] Comment on above: Performed By: #### C BC #### [facility] [address] [place] [address] Dr. Yandy Rodarte IG % 0.4 % Normal 0.0-0.5 [facility] Comment on above: Performed By: #### C BC #### [facility] [address] [place] [address] Dr. Yandy Rodarte LYMPH # 2.2 103/ul Normal 1.2-3.8 [facility] Comment on above: Performed By: #### C BC #### [facility] [address] [place] [address] Dr. Yandy Rodarte Lymphocytes/100 WBC (Bld) 20.0 % Critically low 20.5-60.0 [facility] Comment on above: Performed By: #### C BC #### [facility] [address] [place] [address] Dr. Yandy Rodarte MANUAL DIFF REQ NO Normal [facility] Comment on above: Performed By: #### C BC #### [facility] [address] [place] [address] Dr. Yandy Rodarte MCH (RBC) [Entitic mass] 28.2 pg Normal 26.7-34.0 [facility] Comment on above: Performed By: #### C BC #### [facility] [address] [place] [address] Dr. Yandy Rodarte MCHC (RBC) [Mass/Vol] 31.8 g/dL Normal 29.9-35.2 [facility] Comment on above: Performed By: #### C BC #### [facility] [address] [place] [address] Dr. Yandy Rodarte MCV (RBC) [Entitic vol] 88.8 fL Normal 81.0-99.0 [facility] Comment on above: Performed By: #### C BC #### [facility] [address] [place] [address] Dr. Yandy Rodarte MONO # 0.7 103/ul Normal 0.3-0.8 [facility] Comment on above: Performed By: #### C BC #### [facility] [address] [place] [address] Dr. Yandy Rodarte Monocytes/100 WBC (Bld) 6.3 % Normal 1.7-12.0 [facility] Comment on above: Performed By: #### C BC #### [facility] [address] [place] [address] Dr. Yandy Rodarte NEUT # 7.7 103/ul Critically high 1.4-6.5 [facility] Comment on above: Performed By: #### C BC #### [facility] [address] [place] [address] Dr. Yandy Rodarte Neutrophils/100 WBC (Bld) 68.8 % Normal 43.0-75.0 [facility] Comment on above: Performed By: #### C BC #### [facility] [address] [place] [address] Dr. Yandy Rodarte Platelet mean volume (Bld) [Entitic vol] 9.8 fL Normal 9.5-13.5 [facility] Comment on above: Performed By: #### C BC #### [facility] [address] [place] [address] Dr. Yandy Rodarte PLT 259 103/ul Normal 150-450 [facility] Comment on above: Performed By: #### C BC #### [facility] [address] [place] [address] Dr. Yandy Rodarte RBC 4.82 106/ul Normal 4.20-5.40 [facility] Comment on above: Performed By: #### C BC #### [facility] [address] [place] [address] Dr. Yandy Rodarte WBC 11.2 103/ul Critically high 4.0-11.0 [facility] Comment on above: Performed By: #### C BC #### [facility] [address] [place] [address] Dr. 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 on 03/02/2023 at 19:19 Normal [facility] LIPID PROFILEon 03-02-2023 CHOL-HDL RATIO NORM SEE BELOW Normal [facility] Comment on above: Result Comment: 3.3 - 4.4 LOW RISK 4.4 - 7.1 AVERAGE RISK 7.1 - 11.0 MODERATE RISK >11.0 HIGH RISK Performed By: #### L IPID, CMP #### [facility] [address] [address] [address] Yandy Rodarte Cholesterol [Mass/Vol] 203 mg/dL Critically high <=200 [facility] Comment on above: Performed By: #### L IPID, CMP #### [facility] [address] [address] [address] Yandy Rodarte Cholesterol in HDL [Mass/Vol] 35 mg/dL Critically low 40-60 [facility] Comment on above: Performed By: #### L IPID, CMP #### [facility] [address] [address] [address] Yandy Rodarte Cholesterol in LDL [Mass/Vol] 123.0 mg/dL Normal [facility] Comment on above: Performed By: #### L IPID, CMP #### [facility] [address] [address] [address] Yandy Rodarte Cholesterol.total/C holesterol in HDL [Mass ratio] 5.8 {ratio} Normal [facility] Comment on above: Performed By: #### L IPID, CMP #### [facility] [address] [address] [address] Yandy Rodarte HDL NORMAL > or = 60 mg/dl - LO W CARDIOVASCULAR RISK <40 mg/dl - HIGH CARDIOVASCULAR RISK Normal [facility] Comment on above: Performed By: #### L IPID, CMP #### [facility] [address] [address] [address] Yandy Rodarte LDL CALC NORMAL SEE BELOW Normal [facility] Comment on above: Result Comment: <100 mg/dl OPTIMAL 100 - 129 mg/dl NEAR OR ABOVE OPTIMAL 130 - 159 mg/dl BORDERLINE HIGH 160 - 189 mg/dl HIGH >190 mg/dl VERY HIGH Performed By: #### L IPID, CMP #### [facility] [address] [address] [address] Yandy Rodarte Triglyceride [Mass/Vol] 225 mg/dL Critically high <=150 [facility] Comment on above: Performed By: #### L IPID, CMP #### [facility] [address] [address] [address] Yandy Rodarte VLDL CALC 45.0 mg/dL Normal [facility] Comment on above: Performed By: #### L IPID, CMP #### [facility] [address] [address] [address] Yandy Rodarte PROF 14(COMP METB)on 023 Albumin [Mass/Vol] 3.5 g/dL Normal 3.4-5.0 [facility] Comment on above: Performed By: #### L IPID, CMP #### [facility] [address] [place] [address] Dr. Yandy Rodarte Albumin/Globulin [Mass ratio] 0.8 {ratio} Normal [facility] Comment on above: Performed By: #### L IPID, CMP #### [facility] [address] [place] [address] Dr. Yandy Rodarte ALP [Catalytic activity/Vol] 100 U/L Normal 46-116 [facility] Comment on above: Performed By: #### L IPID, CMP #### [facility] [address] [place] [address] Dr. Yandy Rodarte ALT [Catalytic activity/Vol] 22 U/L Normal 14-59 [facility] Comment on above: Performed By: #### L IPID, CMP #### [facility] [address] [address] [address] Yandy Rodarte Anion gap [Moles/Vol] 8.9 mmol/L Normal [facility] Comment on above: Performed By: #### L IPID, CMP #### [facility] [address] [address] [address] Yandy Rodarte AST [Catalytic activity/Vol] 17 U/L Normal 15-37 [facility] Comment on above: Performed By: #### L IPID, CMP #### [facility] [address] [address] [address] Yandy Rodarte Bilirubin [Mass/Vol] 0.4 mg/dL Normal 0.2-1.0 [facility] Comment on above: Performed By: #### L IPID, CMP #### [facility] [address] [place] [address] Dr. Yandy Rodarte Calcium [Mass/Vol] 9.2 mg/dL Normal 8.5-10.1 [facility] Comment on above: Performed By: #### L IPID, CMP #### [facility] [address] [address] [address] Yandy Rodarte Chloride [Moles/Vol] 104 mmol/L Normal 98-107 [facility] Comment on above: Performed By: #### L IPID, CMP #### [facility] [address] [place] [address] Dr. Yandy Rodarte CO2 [Moles/Vol] 32.6 mmol/L Critically high 21.0-32.0 [facility] Comment on above: Performed By: #### L IPID, CMP #### [facility] [address] [place] [address] Dr. Yandy Rodarte Creatinine [Mass/Vol] 0.81 mg/dL Normal 0.55-1.02 [facility] Comment on above: Performed By: #### L IPID, CMP #### [facility] [address] [place] [address] Dr. Yandy Rodarte EGFR-AF ZAMBIAN >60 Normal >=60 [facility] Comment on above: Performed By: #### L IPID, CMP #### [facility] [address] [address] [address] Yandy Rodarte EGFR-NON AF ZAMBIAN >60 Normal >=60 [facility] Comment on above: Performed By: #### L IPID, CMP #### [facility] [address] [address] [address] Yandy Rodarte Globulin (S) [Mass/Vol] 4.6 g/dL Normal [facility] Comment on above: Performed By: #### L IPID, CMP #### [facility] [address] [address] [address] Yandy Rodarte Glucose [Mass/Vol] 114 mg/dL Critically high 74-106 [facility] Comment on above: Performed By: #### L IPID, CMP #### [facility] [address] [place] [address] Dr. Yandy Rodarte Potassium [Moles/Vol] 4.5 mmol/L Normal 3.5-5.1 [facility] Comment on above: Performed By: #### L IPID, CMP #### [facility] [address] [place] [address] Dr. Yandy Rodarte Protein [Mass/Vol] 8.1 g/dL Normal 6.4-8.2 [facility] Comment on above: Performed By: #### L IPID, CMP #### [facility] [address] [place] [address] Dr. Yandy Rodarte Sodium [Moles/Vol] 141 mmol/L Normal 136-145 The [facility] Comment on above: Performed By: #### L IPID, CMP #### [facility] [address] [place] [address] Dr. Yandy Rodarte Urea nitrogen [Mass/Vol] 18.0 mg/dL Normal 7.0-18.0 [facility] Comment on above: Performed By: #### L IPID, CMP #### [facility] [address] [place] [address] Dr. Yandy Rodarte Urea nitrogen/Creatinine [Mass ratio] 22.2 mg/mg Normal [facility] Comment on above: Performed By: #### L IPID, CMP #### [facility] [address] [address] [address] Yandy Rodarte Office Visiton 02-19-2023 Follow-up visit [id number] Maximo Gill 1950 F Date Provider Department Center 02/19/2023 [id number] PRECIADO [facility] Family History Problem Relation Age of Onset Heart attack Father Diabetes Father Hypertension Father Coronary artery disease Father Rheum arthritis Father Family Status - Relation Status Age at Father Level of Service:58121 [place] OFFICE/OUTPATIENT ESTABLISHED MOD MDM 30-39 MIN Reason for Visit and Comments: Follow-up [120234] - 6 month follow up Normal [facility] MG MAMM SCREEN MARIELENA W CADon 0 12-27-2022 MG MAMM SCREEN MARIELENA W CAD Patient: AFIA GILL Exam Date: 12/27/2022 : 1950 Gender:F Ordering : DR YAHIR BROTHERS M.D. Admission #: [id number] Family : Order #: [id number] CLICK HERE TO VIEW EXAM RADIOLOGY REPORT [...] cervical cancer at age 37. LOCATION: The [facility] BREAST COMPOSITION: Scattered areas fibroglandular density. [...] MD on 12/28/2022 at 09:38 Normal The [facility] CT SINUSES WO CONon 05-18-20 [...] by: YAYA ZULUAGA Date: 2022-05-18 08:38 Normal [facility] BASIC METABOLIC PANELon 01-20 Calcium [Mass/Vol] 9.6 mg/dL Normal 8.6-10.3 [facility] Comment on above: Order Comment: No: D o not add to previous draw Performed By: #### 5 0608 #### [facility] [address] [place] [address], [place] Chloride [Moles/Vol] 101 mmol/L Normal 98-107 The [facility] Comment on above: Order Comment: No: D o not add to previous draw Performed By: #### 5 0608 #### [facility] [address] [place] [address], [place] CO2 [Moles/Vol] 29 mmol/L Normal 21-31 The [facility] Comment on above: Order Comment: No: D o not add to previous draw Performed By: #### 5 0608 #### [facility] [address] [place] [address], [place] Creatinine [Mass/Vol] 0.71 mg/dL Normal 0.60-1.20 The [facility] Comment on above: Order Comment: No: D o not add to previous draw Performed By: #### 5 0608 #### [facility] [address] [place] [address], [place] GFR/1.73 sq M predicted among blacks MDRD (S/P/Bld) [Vol rate/Area] mL/min/{1.73_m2} Normal >60 The [facility] Comment on above: Order Comment: No: D o not add to previous draw Performed By: #### 5 0608 #### [facility] [address] [place] [address], [place] GFR/1.73 sq M predicted among non-blacks MDRD (S/P/Bld) [Vol rate/Area] mL/min/{1.73_m2} Normal >60 The [facility] Comment on above: Order Comment: No: D o not add to previous draw Performed By: #### 5 0608 #### [facility] [address] [place] [address], [place] Glucose [Mass/Vol] 127 mg/dL High 70-100 The [facility] Comment on above: Order Comment: No: D o not add to previous draw Performed By: #### 5 0608 #### [facility] [address] [place] [address], [place] Potassium [Moles/Vol] 4.3 mmol/L Normal 3.5-5.1 The [facility] Comment on above: Order Comment: No: D o not add to previous draw Performed By: #### 5 0608 #### [facility] [address] [place] [address], [place] Sodium [Moles/Vol] 137 mmol/L Normal 136-145 The [facility] Comment on above: Order Comment: No: D o not add to previous draw Performed By: #### 5 0608 #### [facility] [address] [place] [id number], [facility] Urea nitrogen [Mass/Vol] 20 mg/dL Normal 7-25 The [facility] Comment on above: Order Comment: No: D o not add to previous draw Performed By: #### 5 0608 #### [facility] [address] [place] [address], [facility] CBC COMPLETE BLOOD COUNTon - Erythrocyte distribution width (RBC) [Ratio] 14.6 % Normal 11.5-15.0 The [facility] Comment on above: Order Comment: No: D o not add to previous draw Performed By: #### 5 0608 #### [facility] [address] [place] [address], [facility] Hematocrit (Bld) [Volume fraction] 44.6 % Normal 36.0-45.0 The [facility] Comment on above: Order Comment: No: D o not add to previous draw Performed By: #### 5 0608 #### [facility] [address] [place] [address], [facility] Hemoglobin (Bld) [Mass/Vol] 14.1 g/dL Normal 12.0-15.0 The [facility] Comment on above: Order Comment: No: D o not add to previous draw Performed By: #### 5 0608 #### [facility] [address] [place] [address], [facility] MCH (RBC) [Entitic mass] 30.2 pg Normal 27.0-33.0 The [facility] Comment on above: Order Comment: No: D o not add to previous draw Performed By: #### 5 0608 #### [facility] [address] [place] [id number], [facility] MCHC (RBC) [Mass/Vol] 31.6 g/dL Low 32.0-35.0 The [facility] Comment on above: Order Comment: No: D o not add to previous draw Performed By: #### 5 0608 #### [facility] [address] [place] [address], [facility] MCV (RBC) [Entitic vol] 95.5 fL Normal 82.0-98.0 The [facility] Comment on above: Order Comment: No: D o not add to previous draw Performed By: #### 5 0608 #### [facility] [address] [place] [address], [facility] Nucleated RBC/100 WBC (Bld) [Ratio] 0 % Normal 0-0 The [facility] Comment on above: Order Comment: No: D o not add to previous draw Performed By: #### 5 0608 #### [facility] [address] [address], [facility] PLAT CNT 250 10*3/uL Normal 150-400 The [facility] Comment on above: Order Comment: No: D o not add to previous draw Performed By: #### 5 0608 #### [facility] [address] [facility] [place] [address], [facility] RBC (Bld) [#/Vol] 4.67 10*6/uL Normal 3.80-5.00 [facility] Comment on above: Order Comment: No: D o not add to previous draw Performed By: #### 5 0608 #### [facility] [address] [address], [facility] WBC (Bld) [#/Vol] 9.20 10*3/uL Normal 4.00-10.60 [facility] Comment on above: Order Comment: No: D o not add to previous draw Performed By: #### 5 0608 #### [facility] [address] POC GLUCOSE LABon 02-02-2019 Glucose [Mass/Vol] 146 mg/dL High 70-100 The [facility] Comment on above: Performed By: #### 5 0608 #### [facility] [address] [facility]. [address] Glucose [Mass/Vol] 115 mg/dL High 70-100 [facility] Comment on above: Performed By: #### 5 0608 #### [facility] [address] [facility]. [address] PROTHROMBIN TIMEon 9 INR Coag (PPP) [Relative time] 1.22 {INR} High 0.91-1.16 The [facility] Comment on above: Order [...] 1995;108:231S-246S. Performed By: #### 5 0608 #### [facility] [address] [facility] [place] [address], [facility] PT Coag (PPP) [Time] 15.4 s High 12.3-14.8 The [facility] Comment on above: Order Comment: No: D o not add to previous draw Result Comment: ALL RESULTS MUST BE INTERPRETED WITH RESPECT TO BLOOD DRAWING ARTIFACT OR DILUTION ERROR OF ANTICOAGULANT AT THE TIME OF SAMPLING. Performed By: #### 5 [id number] #### [facility] [address] [facility] [place] [place] [address], [facility] POC GLUCOSE LABon 02-01-2019 Glucose [Mass/Vol] 152 mg/dL High 70-100 The [facility] Comment on above: Performed By: #### 5 0608 #### [facility] [address] [place] [id number], [facility] Glucose [Mass/Vol] 118 mg/dL High 70-100 The [facility] Comment on above: Performed By: #### 5 0608 #### [facility] [address] [place] [address], [place] Glucose [Mass/Vol] 197 mg/dL High 70-100 [facility] Comment on above: Performed By: #### 5 0608 #### [facility] [address] [place] [address], [facility] Glucose [Mass/Vol] 123 mg/dL High 70-100 [facility] Comment on above: Performed By: #### 5 0608 #### [facility] [address] [place] [address], [facility] PROTHROMBIN TIMEon 9 INR Coag (PPP) [Relative time] 1.24 {INR} High 0.91-1.16 The [facility] Comment on above: Order Comment: Unkno [...] 1995;108:231S-246S. Performed By: #### 0 0071 #### [facility] [address] [place] [address], [facility] PT Coag (PPP) [Time] 15.6 s High 12.3-14.8 [facility] Comment on above: Order Comment: Unkno wn Result Comment: ALL RESULTS MUST BE INTERPRETED WITH RESPECT TO BLOOD DRAWING ARTIFACT OR DILUTION ERROR OF ANTICOAGULANT AT THE TIME OF SAMPLING. Performed By: #### 0 0071 #### [facility] [address] [facility]. [address] BASIC METABOLIC PANELon 01-20 Calcium [Mass/Vol] 9.5 mg/dL Normal 8.6-10.3 [facility] Comment on above: Order Comment: No: D o not add to previous draw Performed By: #### 0 0071 #### [facility] [address] [place] [address], [facility] Chloride [Moles/Vol] 98 mmol/L Normal 98-107 The [facility] Comment on above: Order Comment: No: D o not add to previous draw Performed By: #### 0 0071 #### [facility] [address] [place] [address], [facility] CO2 [Moles/Vol] 29 mmol/L Normal 21-31 The [facility] Comment on above: Order Comment: No: D o not add to previous draw Performed By: #### 0 0071 #### [facility] [address] [place] [address], [facility] Creatinine [Mass/Vol] 0.72 mg/dL Normal 0.60-1.20 [facility] Comment on above: Order Comment: No: D o not add to previous draw Performed By: #### 0 0071 #### [facility] [address] [place] [address], [place] GFR/1.73 sq M predicted among blacks MDRD (S/P/Bld) [Vol rate/Area] mL/min/{1.73_m2} Normal >60 The [facility] Comment on above: Order Comment: No: D o not add to previous draw Performed By: #### 0 0071 #### [facility] [address] [place] [address], [facility] GFR/1.73 sq M predicted among non-blacks MDRD (S/P/Bld) [Vol rate/Area] mL/min/{1.73_m2} Normal >60 The [facility] Comment on above: Order Comment: No: D o not add to previous draw Performed By: #### 0 0071 #### [facility] [address] [place] [address], [place] Glucose [Mass/Vol] 120 mg/dL High 70-100 [facility] Comment on above: Order Comment: No: D o not add to previous draw Performed By: #### 0 0071 #### [facility] [address] [place] [address], [place] Potassium [Moles/Vol] 3.5 mmol/L Normal 3.5-5.1 [facility] Comment on above: Order Comment: No: D o not add to previous draw Performed By: #### 0 0071 #### [facility] [address] [place] [address], [place] Sodium [Moles/Vol] 138 mmol/L Normal 136-145 [facility] Comment on above: Order Comment: No: D o not add to previous draw Performed By: #### 0 0071 #### [facility] [address] [place] [address], [facility] Urea nitrogen [Mass/Vol] 20 mg/dL Normal 7-25 The [facility] Comment on above: Order Comment: No: D o not add to previous draw Performed By: #### 0 0071 #### [facility] [address] [place] [address], [facility] CBC COMPLETE BLOOD COUNTon 01-31-2019 Erythrocyte distribution width (RBC) [Ratio] 14.6 % Normal 11.5-15.0 [facility] Comment on above: Order Comment: No: D o not add to previous draw Performed By: #### 0 0071 #### [facility] [address] [place] [address], [facility] Hematocrit (Bld) [Volume fraction] 42.7 % Normal 36.0-45.0 [facility] Comment on above: Order Comment: No: D o not add to previous draw Performed By: #### 0 0071 #### [facility] [address] [place] [address], [facility] Hemoglobin (Bld) [Mass/Vol] 13.8 g/dL Normal 12.0-15.0 [facility] Comment on above: Order Comment: No: D o not add to previous draw Performed By: #### 0 0071 #### [facility] [address] [place] [address], [facility] MCH (RBC) [Entitic mass] 31.0 pg Normal 27.0-33.0 [facility] Comment on above: Order Comment: No: D o not add to previous draw Performed By: #### 0 0071 #### [facility] [address] [place] [address], [facility] MCHC (RBC) [Mass/Vol] 32.3 g/dL Normal 32.0-35.0 [facility] Comment on above: Order Comment: No: D o not add to previous draw Performed By: #### 0 0071 #### [facility] [address] [place] [address], [facility] MCV (RBC) [Entitic vol] 96.0 fL Normal 82.0-98.0 [facility] Comment on above: Order Comment: No: D o not add to previous draw Performed By: #### 0 0071 #### [facility] [address] [facility] [place] [place] [address], [facility] Nucleated RBC/100 WBC (Bld) [Ratio] 0 % Normal 0-0 [facility] Comment on above: Order Comment: No: D o not add to previous draw Performed By: #### 0 0071 #### [facility] [address] [place] [address], [facility] PLAT CNT 217 10*3/uL Normal 150-400 The [facility] Comment on above: Order Comment: No: D o not add to previous draw Performed By: #### 0 0071 #### [facility] [address] [place] [address], [facility] RBC (Bld) [#/Vol] 4.45 10*6/uL Normal 3.80-5.00 [facility] Comment on above: Order Comment: No: D o not add to previous draw Performed By: #### 0 0071 #### [facility] [address] [facility] [place] [place] [address], [facility] WBC (Bld) [#/Vol] 9.17 10*3/uL Normal 4.00-10.60 [facility] Comment on above: Order Comment: No: D o not add to previous draw Performed By: #### 0 0071 #### [facility] [address] POC GLUCOSE LABon 01-31-2019 Glucose [Mass/Vol] 116 mg/dL High 70-100 The [facility] Comment on above: Performed By: #### 0 0071 #### [facility] [address] [place] [address], [facility] Glucose [Mass/Vol] 122 mg/dL High 70-100 [facility] Comment on above: Performed By: #### 0 0071 #### [facility] [address] [place] [address], [place] Glucose [Mass/Vol] 191 mg/dL High 70-100 [facility] Comment on above: Performed By: #### 0 0071 #### [facility] [address] [place] [address], [place] Glucose [Mass/Vol] 131 mg/dL High 70-100 [facility] Comment on above: Performed By: #### 0 0071 #### [facility] [address] [place] [address], [facility] PROTHROMBIN TIMEon 9 INR Coag (PPP) [Relative time] 1.24 {INR} High 0.91-1.16 [facility] Comment on above: Order Comment: [...] 1995;108:231S-246S. Performed By: #### 0 0071 #### [facility] [address] [place] [address], [facility] PT Coag (PPP) [Time] 15.6 s High 12.3-14.8 [facility] Comment on above: Order Comment: Unkno wn Result Comment: ALL RESULTS MUST BE INTERPRETED WITH RESPECT TO BLOOD DRAWING ARTIFACT OR DILUTION ERROR OF ANTICOAGULANT AT THE TIME OF SAMPLING. Performed By: #### 0 0071 #### [facility] [address] [place] [address], [facility] BASIC METABOLIC PANELon 01-20 Calcium [Mass/Vol] 10.0 mg/dL Normal 8.6-10.3 [facility] Comment on above: Order Comment: No: D o not add to previous draw Performed By: #### 0 0071 #### [facility] [address] [place] [address], [facility] Chloride [Moles/Vol] 99 mmol/L Normal 98-107 [facility] Comment on above: Order Comment: No: D o not add to previous draw Performed By: #### 0 0071 #### [facility] [address] [place] [address], [facility] CO2 [Moles/Vol] 30 mmol/L Normal 21-31 The [facility] Comment on above: Order Comment: No: D o not add to previous draw Performed By: #### 0 0071 #### [facility] [address] [place] [address], [facility] Creatinine [Mass/Vol] 0.74 mg/dL Normal 0.60-1.20 [facility] Comment on above: Order Comment: No: D o not add to previous draw Performed By: #### 0 0071 #### [facility] [address] [place] [address], [facility] GFR/1.73 sq M predicted among blacks MDRD (S/P/Bld) [Vol rate/Area] mL/min/{1.73_m2} Normal >60 [facility] Comment on above: Order Comment: No: D o not add to previous draw Performed By: #### 0 0071 #### [facility] [address] [place] [address], [place] GFR/1.73 sq M predicted among non-blacks MDRD (S/P/Bld) [Vol rate/Area] mL/min/{1.73_m2} Normal >60 [facility] Comment on above: Order Comment: No: D o not add to previous draw Performed By: #### 0 0071 #### [facility] [address] [place] [address], [place] Glucose [Mass/Vol] 112 mg/dL High 70-100 [facility] Comment on above: Order Comment: No: D o not add to previous draw Performed By: #### 0 0071 #### [facility] [address] [place] [address], [place] Potassium [Moles/Vol] 4.3 mmol/L Normal 3.5-5.1 [facility] Comment on above: Order Comment: No: D o not add to previous draw Performed By: #### 0 0071 #### [facility] [address] [place] [address], [place] Sodium [Moles/Vol] 137 mmol/L Normal 136-145 [facility] Comment on above: Order Comment: No: D o not add to previous draw Performed By: #### 0 0071 #### [facility] [address] [place] [address], [place] Urea nitrogen [Mass/Vol] 20 mg/dL Normal 7-25 [facility] Comment on above: Order Comment: No: D o not add to previous draw Performed By: #### 0 0071 #### [facility] [address] [place] [address], [place] Calcium [Mass/Vol] 9.3 mg/dL Normal 8.6-10.3 [facility] Comment on above: Order Comment: No: D o not add to previous draw Performed By: #### 5 6101 #### [facility] [address] [place] [address], [place] Chloride [Moles/Vol] 103 mmol/L Normal 98-107 [facility] Comment on above: Order Comment: No: D o not add to previous draw Performed By: #### 5 6101 #### [facility] [address] [place] [address], [place] CO2 [Moles/Vol] 28 mmol/L Normal 21-31 The [facility] Comment on above: Order Comment: No: D o not add to previous draw Performed By: #### 5 6101 #### [facility] [address] [place] [address], [place] Creatinine [Mass/Vol] 0.62 mg/dL Normal 0.60-1.20 The [facility] Comment on above: Order Comment: No: D o not add to previous draw Performed By: #### 5 6101 #### [facility] [address] [place] [address], [place] GFR/1.73 sq M predicted among blacks MDRD (S/P/Bld) [Vol rate/Area] mL/min/{1.73_m2} Normal >60 The [facility] Comment on above: Order Comment: No: D o not add to previous draw Performed By: #### 5 6101 #### [facility] [address] [place] [address], [place] GFR/1.73 sq M predicted among non-blacks MDRD (S/P/Bld) [Vol rate/Area] mL/min/{1.73_m2} Normal >60 [facility] Comment on above: Order Comment: No: D o not add to previous draw Performed By: #### 5 6101 #### [facility] [address] [place] [address], [place] Glucose [Mass/Vol] 117 mg/dL High 70-100 [facility] Comment on above: Order Comment: No: D o not add to previous draw Performed By: #### 5 6101 #### [facility] [address] [place] [address], [place] Potassium [Moles/Vol] 3.5 mmol/L Normal 3.5-5.1 [facility] Comment on above: Order Comment: No: D o not add to previous draw Performed By: #### 5 6101 #### [facility] [address] [place] [address], [place] Sodium [Moles/Vol] 140 mmol/L Normal 136-145 [facility] Comment on above: Order Comment: No: D o not add to previous draw Performed By: #### 5 6101 #### [facility] [address] [place] [address], [place] Urea nitrogen [Mass/Vol] 15 mg/dL Normal 7-25 [facility] Comment on above: Order Comment: No: D o not add to previous draw Performed By: #### 5 6101 #### [facility] [address] [place] [address], [place] CBC COMPLETE BLOOD COUNTon 0 - Erythrocyte distribution width (RBC) [Ratio] 14.6 % Normal 11.5-15.0 [facility] Comment on above: Order Comment: No: D o not add to previous draw Performed By: #### 5 [id number] #### [facility] [address] [place] [address], [place] Hematocrit (Bld) [Volume fraction] 42.1 % Normal 36.0-45.0 [facility] Comment on above: Order Comment: No: D o not add to previous draw Performed By: #### 5 6101 #### [facility] [address] [place] [address], [place] Hemoglobin (Bld) [Mass/Vol] 13.4 g/dL Normal 12.0-15.0 [facility] Comment on above: Order Comment: No: D o not add to previous draw Performed By: #### 5 6101 #### [facility] [address] [place] [id number], [facility] MCH (RBC) [Entitic mass] 30.6 pg Normal 27.0-33.0 [facility] Comment on above: Order Comment: No: D o not add to previous draw Performed By: #### 5 6101 #### [facility] [address] [place] [id number], [facility] MCHC (RBC) [Mass/Vol] 31.8 g/dL Low 32.0-35.0 [facility] Comment on above: Order Comment: No: D o not add to previous draw Performed By: #### 5 [id number] #### [facility] [address] [place] [address], [facility] MCV (RBC) [Entitic vol] 96.1 fL Normal 82.0-98.0 [facility] Comment on above: Order Comment: No: D o not add to previous draw Performed By: #### 5 [id number] #### [facility] [address] [place] [id number], [facility] Nucleated RBC/100 WBC (Bld) [Ratio] 0 % Normal 0-0 [facility] Comment on above: Order Comment: No: D o not add to previous draw Performed By: #### 5 6101 #### [facility] [address] [place] [id number], [place] PLAT CNT 215 10*3/uL Normal 150-400 [facility] Comment on above: Order Comment: No: D o not add to previous draw Performed By: #### 5 6101 #### [facility] [address] [place] [id number], [facility] RBC (Bld) [#/Vol] 4.38 10*6/uL Normal 3.80-5.00 [facility] Comment on above: Order Comment: No: D o not add to previous draw Performed By: #### 5 6101 #### [facility] [address] WBC (Bld) [#/Vol] 8.75 10*3/uL Normal 4.00-10.60 [facility] Comment on above: Order Comment: No: D o not add to previous draw Performed By: #### 5 6101 #### [facility] [address] Cardiovascular Lab Reporton 01-30-2019 Cardiovascular Lab Report [facility] Patient Name: Afia Gill [facility] Kassy MR #: [id number] Department of Physician: [facility] Tayler Gomez M.D. Division of Service Date: 01/29/2019 Cardiology Birthdate: 1950 Adult Cardiovascular Room #: 3AB [id number] [facility] [address] [place] [address] Cardiovascular Laboratory Report INDICATION: The patient is [...] signed informed consent. She was brought to school laboratory technician in a fasting state. The right neck area was prepped and draped in usual fashion. Using ultrasound guidance and micropuncture technique, the internal jugular vein was accessed. A 6-Central African x 11 cm sheath was placed. A 6-Central African Caldera catheter was used for right heart catheterization with measurement of pressures and calculation of cardiac output using the estimated Nader method. The Caldera catheter was removed. Using ultrasound guidance and micropuncture technique, the right radial artery was accessed. A 6-Central African x 11 cm Hydrophilic sheath was advanced. Verapamil was given through the sheath and a bolus of bivalirudin was given intravenously as the patient has prior history of heparin-induced thrombocytopenia. Note that, the care was taken to avoid any use of heparin during the procedure. Bilateral selective coronary angiography was then performed using 6-Central African JL3.5 and JR5 diagnostic catheters. Catheters were removed. A 6-Central African angled pigtail catheter was advanced over the [...] with 30% left ventricular ejection fraction. 3. Quei-uc-yjnncxfz mitral regurgitation. 4. Severely elevated filling pressures. [...] Gomez M.D. Date Trans: 01/30/2019 07:50 Kassy/ivan [id number] cc: Yahir Brothers M.D. [address] [address] Yahir Mijares M.D. [address] [address] Normal [facility] MAGNESIUM BLOODon 01-30-2019 Magnesium [Mass/Vol] 2.2 mg/dL Normal 1.9-2.7 [facility] Comment on above: Order Comment: No: D o not add to previous draw Performed By: #### 0 0071 #### [facility] [address] [place] [address], [facility] Magnesium [Mass/Vol] 2.2 mg/dL Normal 1.9-2.7 [facility] Comment on above: Order Comment: No: D o not add to previous draw Performed By: #### 5 6101 #### [facility] [address] [place] [address], [place] POC GLUCOSE LABon 01-30-2019 Glucose [Mass/Vol] 107 mg/dL High 70-100 [facility] Comment on above: Performed By: #### 5 6101 #### [facility] [address] [place] [address], [place] Glucose [Mass/Vol] 125 mg/dL High 70-100 [facility] Comment on above: Performed By: #### 5 6101 #### [facility] [address] [place] [address], [facility] Glucose [Mass/Vol] 137 mg/dL High 70-100 [facility] Comment on above: Performed By: #### 5 6101 #### [facility] [address] [facility] [place] [address], [facility] Glucose [Mass/Vol] 114 mg/dL High 70-100 [facility] Comment on above: Performed By: #### 5 6101 #### [facility] [address] PROTHROMBIN TIMEon 9 INR Coag (PPP) [Relative time] 1.23 {INR} High 0.91-1.16 [facility] Comment on above: Order [...] 1995;108:231S-246S. Performed By: #### 5 6101 #### [facility] [address] PT Coag (PPP) [Time] 15.5 s High 12.3-14.8 [facility] Comment on above: Order Comment: No: D o not add to previous draw Result Comment: ALL RESULTS MUST BE INTERPRETED WITH RESPECT TO BLOOD DRAWING ARTIFACT OR DILUTION ERROR OF ANTICOAGULANT AT THE TIME OF SAMPLING. Performed By: #### 5 6101 #### [facility] [address] TSH3on 01-30-2019 TSH 3RD GENERATION 1.24 uIU/mL Normal 0.34-5.60 [facility] Comment on above: Order Comment: No: D o not add to previous draw Performed By: #### 5 6101 #### [facility] [address] CBC COMPLETE BLOOD COUNTon 0 01-29-2019 Erythrocyte distribution width (RBC) [Ratio] 14.7 % Normal 11.5-15.0 [facility] Comment on above: Order Comment: No: D o not add to previous draw Performed By: #### 5 0608 #### [facility] [address] Hematocrit (Bld) [Volume fraction] 43.4 % Normal 36.0-45.0 [facility] Comment on above: Order Comment: No: D o not add to previous draw Performed By: #### 5 0608 #### [facility] [address] Hemoglobin (Bld) [Mass/Vol] 13.8 g/dL Normal 12.0-15.0 [facility] Comment on above: Order Comment: No: D o not add to previous draw Performed By: #### 5 0608 #### [facility] [address] MCH (RBC) [Entitic mass] 30.3 pg Normal 27.0-33.0 [facility] Comment on above: Order Comment: No: D o not add to previous draw Performed By: #### 5 0608 #### [facility] [address] MCHC (RBC) [Mass/Vol] 31.8 g/dL Low 32.0-35.0 [facility] Comment on above: Order Comment: No: D o not add to previous draw Performed By: #### 5 0608 #### [facility] [address] [address], [facility] MCV (RBC) [Entitic vol] 95.2 fL Normal 82.0-98.0 [facility] Comment on above: Order Comment: No: D o not add to previous draw Performed By: #### 5 0608 #### [facility] [address] Nucleated RBC/100 WBC (Bld) [Ratio] 0 % Normal 0-0 [facility] Comment on above: Order Comment: No: D o not add to previous draw Performed By: #### 5 0608 #### [facility] [address] [facility] [place] [place] [address], [facility] PLAT CNT 240 10*3/uL Normal 150-400 [facility] Comment on above: Order Comment: No: D o not add to previous draw Performed By: #### 5 0608 #### [facility] [address] [facility] [place] [place] [address], [facility] RBC (Bld) [#/Vol] 4.56 10*6/uL Normal 3.80-5.00 [facility] Comment on above: Order Comment: No: D o not add to previous draw Performed By: #### 5 0608 #### [facility] [address] [place] [address], [facility] WBC (Bld) [#/Vol] 9.28 10*3/uL Normal 4.00-10.60 [facility] Comment on above: Order Comment: No: D o not add to previous draw Performed By: #### 5 0608 #### [facility] [address] [place] [address], [place] COMP METABOLIC PANELon 01-29 Albumin [Mass/Vol] 4.1 g/dL Normal 3.5-5.7 [facility] Comment on above: Order Comment: No: D o not add to previous draw Performed By: #### 1 0070, 53392, 06079 #### [facility] [address] [place] [address], [place] ALKALINE PHOSPH 50 IU/L Normal 34-104 [facility] Comment on above: Order Comment: No: D o not add to previous draw Performed By: #### 1 0070, 93601, 08641 #### [facility] [address] [place] [address], [place] ALT [Catalytic activity/Vol] 14 U/L Normal 7-52 [facility] Comment on above: Order Comment: No: D o not add to previous draw Performed By: #### 1 0, 26452, 82043 #### [facility] [address] [place] [address], [place] AST [Catalytic activity/Vol] 15 U/L Normal 13-39 [facility] Comment on above: Order Comment: No: D o not add to previous draw Performed By: #### 1 0, 10654, 22698 #### [facility] [address] [place] [address], [place] Bilirubin [Mass/Vol] 0.8 mg/dL Normal 0.3-1.0 [facility] Comment on above: Order Comment: No: D o not add to previous draw Performed By: #### 1 0070, 10730, 53666 #### [facility] [address] [place] [address], [place] Calcium [Mass/Vol] 9.6 mg/dL Normal 8.6-10.3 [facility] Comment on above: Order Comment: No: D o not add to previous draw Performed By: #### 1 0070, 46361, 83931 #### [facility] [address] [place] [address], [place] Chloride [Moles/Vol] 103 mmol/L Normal 98-107 [facility] Comment on above: Order Comment: No: D o not add to previous draw Performed By: #### 1 0070, 42761, 72535 #### [facility] [address] [place] [address], [place] CO2 [Moles/Vol] 30 mmol/L Normal 21-31 [facility] Comment on above: Order Comment: No: D o not add to previous draw Performed By: #### 1 0, 88779, 81780 #### [facility] [address] [place] [address], [place] Creatinine [Mass/Vol] 0.71 mg/dL Normal 0.60-1.20 [facility] Comment on above: Order Comment: No: D o not add to previous draw Performed By: #### 1 0, 50062, 41241 #### [facility] [address] [place] [address], [place] GFR/1.73 sq M predicted among blacks MDRD (S/P/Bld) [Vol rate/Area] mL/min/{1.73_m2} Normal >60 [facility] Comment on above: Order Comment: No: D o not add to previous draw Performed By: #### 1 0070, 15130, 26564 #### [facility] [address] [place] [address], [place] GFR/1.73 sq M predicted among non-blacks MDRD (S/P/Bld) [Vol rate/Area] mL/min/{1.73_m2} Normal >60 [facility] Comment on above: Order Comment: No: D o not add to previous draw Performed By: #### 1 0, 57506, 14685 #### [facility] [address] [place] [address], [place] Glucose [Mass/Vol] 116 mg/dL High 70-100 [facility] Comment on above: Order Comment: No: D o not add to previous draw Performed By: #### 1 0, 75912, 39110 #### [facility] [address] [place] [address], [place] Potassium [Moles/Vol] 3.9 mmol/L Normal 3.5-5.1 [facility] Comment on above: Order Comment: No: D o not add to previous draw Performed By: #### 1 0, , 77409 #### [facility] [address] [place] [address], [place] Protein [Mass/Vol] 7.6 g/dL Normal 6.0-8.3 [facility] Comment on above: Order Comment: No: D o not add to previous draw Performed By: #### 1 0, , 43088 #### [facility] [address] [place] [address], [place] Sodium [Moles/Vol] 140 mmol/L Normal 136-145 [facility] Comment on above: Order Comment: No: D o not add to previous draw Performed By: #### 1 0, 07922, 08797 #### [facility] [address] [place] [address], [place] Urea nitrogen [Mass/Vol] 18 mg/dL Normal 7-25 [facility] Comment on above: Order Comment: No: D o not add to previous draw Performed By: #### 1 0, 00182, 70950 #### [facility] [address] [place] [address], [place] HEMOGLOBIN A1Con 01-29-2019 HbA1c (Bld) [Mass fraction] 6.1 % High 4.0-6.0 [facility] Comment on above: Order Comment: Yes: Add to Previous draw if able Performed By: #### 5 6101 #### [facility] [address] [place] [address], [place] HbA1c (Bld) [Mass fraction] 128 mg/dL High 70-126 [facility] Comment on above: Order Comment: Yes: Add to Previous draw if able Performed By: #### 5 6101 #### [facility] [address] [place] [address], [facility] LIPID PROFILEon 01-29-2019 Cholesterol [Mass/Vol] 130 mg/dL Normal 120-200 [facility] Comment on above: Result Comment: CHOL ESTEROL REFERENCE RANGE: 20 YEARS AND OLDER CARDIOVASCULAR RISK Less than 200 mg/dl Low Risk 200 to 239 mg/dl Borderline Risk 240 mg/dl and greater High Risk Performed By: #### 1 0070, 34296, 44967 #### [facility] [address] [place] [address], [place] Cholesterol in HDL [Mass/Vol] 31 mg/dL Normal 23-92 [facility] Comment on above: Result Comment: Slig ht variation in normal range could be due to gender and/or age. HDL CHOLESTEROL REFERENCE RANGE: 20 years and older Cardiovascular Risk > or =60 mg/dL Desirable 40 TO 59 mg/dL Low Risk <40 mg/dL High Risk Performed By: #### 1 0, 26353, 29083 #### [facility] [address] [place] [address], [place] Cholesterol in LDL [Mass/Vol] 67 mg/dL Normal 0-130 [facility] Comment on above: Result Comment: LDL IS A CALCULATION LDL IS ONLY VALID IF THE TRIG IS LESS THAN 400. Performed By: #### 1 0, 70828, 27608 #### [facility] [address] [place] [address], [place] Cholesterol.total/C holesterol in HDL [Mass ratio] 4.2 {ratio} Normal .0-4.5 [facility] Comment on above: Performed By: #### 1 0, 81192, 52182 #### [facility] [address] [place] [address], [facility] NON-HDL CHOLESTEROL 99 mg/dL Normal [facility] Comment on above: Performed By: #### 1 0070, 36472, 81900 #### [facility] [address] [place] [address], [facility] Triglyceride [Mass/Vol] 158 mg/dL High 40-149 [facility] Comment on above: Result Comment: TRIG LYCERIDE REFERENCE RANGE: 20 YEARS AND OLDER CARDIOVASCULAR RISK LESS THAN 150 mg/dl LOW RISK 150 TO 199 mg/dl BORDERLINE RISK 200 mg/dl AND GREATER HIGH RISK Performed By: #### 1 0, 40885, 68747 #### [facility] [address] [place] [address], [facility] VLDL CHOL 32 mg/dL Normal 0-40 [facility] Comment on above: Performed By: #### 1 0, 53948, 46337 #### [facility] [address] [place] [address], [facility] MAGNESIUM BLOODon 01-29-2019 Magnesium [Mass/Vol] 2.2 mg/dL Normal 1.9-2.7 [facility] Comment on above: Order Comment: No: D o not add to previous draw Performed By: #### 1 0, 42628, 35398 #### [facility] [address] [place] [address], [facility] POC GLUCOSE LABon 01-29-2019 Glucose [Mass/Vol] 102 mg/dL High 70-100 [facility] Comment on above: Performed By: #### 8 5499 #### [facility] [address] [place] [address], [place] Glucose [Mass/Vol] 131 mg/dL High 70-100 [facility] Comment on above: Performed By: #### 8 5499 #### [facility] [address] [facility]. [address] PROTHROMBIN TIMEon 9 INR Coag (PPP) [Relative time] 1.39 {INR} High 0.91-1.16 [facility] Comment on above: Order Comment: Yes: [...] 1995;108:231S-246S. Performed By: #### 5 6101 #### [facility] [address] [facility] [place] [place] [address], [facility] PT Coag (PPP) [Time] 17.1 s High 12.3-14.8 [facility] Comment on above: Order Comment: Yes: Add to Previous draw if able Result Comment: ALL RESULTS MUST BE INTERPRETED WITH RESPECT TO BLOOD DRAWING ARTIFACT OR DILUTION ERROR OF ANTICOAGULANT AT THE TIME OF SAMPLING. Performed By: #### 5 6101 #### [facility] [address] BASIC METABOLIC PANELon 04-0 Calcium [Mass/Vol] 10.1 mg/dL Normal 8.6-10.3 [facility] Comment on above: Performed By: #### 0 0071 #### [facility] [address] [place] [address], [place] Chloride [Moles/Vol] 100 mmol/L Normal 98-107 [facility] Comment on above: Performed By: #### 0 0071 #### [facility] [address] [place] [address], [place] CO2 [Moles/Vol] 30 mmol/L Normal 21-31 [facility] Comment on above: Performed By: #### 0 0071 #### [facility] [address] [place] [address], [place] Creatinine [Mass/Vol] 0.71 mg/dL Normal 0.60-1.20 [facility] Comment on above: Performed By: #### 0 0071 #### [facility] [address] [place] [address], [place] GFR/1.73 sq M predicted among blacks MDRD (S/P/Bld) [Vol rate/Area] mL/min/{1.73_m2} Normal >60 [facility] Comment on above: Performed By: #### 0 0071 #### [facility] [address] [place] [address], [place] GFR/1.73 sq M predicted among non-blacks MDRD (S/P/Bld) [Vol rate/Area] mL/min/{1.73_m2} Normal >60 [facility] Comment on above: Performed By: #### 0 0071 #### [facility] [address] [place] [address], [place] Glucose [Mass/Vol] 93 mg/dL Normal 70-100 [facility] Comment on above: Performed By: #### 0 0071 #### [facility] [address] [place] [address], [place] Potassium [Moles/Vol] 3.7 mmol/L Normal 3.5-5.1 [facility] Comment on above: Performed By: #### 0 0071 #### [facility] [address] [place] [address], [facility] Sodium [Moles/Vol] 139 mmol/L Normal 136-145 [facility] Comment on above: Performed By: #### 0 0071 #### [facility] [address] [place] [id number], [facility] Urea nitrogen [Mass/Vol] 16 mg/dL Normal 7-25 [facility] Comment on above: Performed By: #### 0 0071 #### [facility] [address] [place] [address], [facility] CBC COMPLETE BLOOD COUNTon 0 01-22-2019 Erythrocyte distribution width (RBC) [Ratio] 14.9 % Normal 11.5-15.0 [facility] Comment on above: Performed By: #### 5 0608 #### [facility] [address] [place] [id number], [facility] Hematocrit (Bld) [Volume fraction] 43.0 % Normal 36.0-45.0 [facility] Comment on above: Performed By: #### 5 0608 #### [facility] [address] [place] [id number], [facility] Hemoglobin (Bld) [Mass/Vol] 13.7 g/dL Normal 12.0-15.0 [facility] Comment on above: Performed By: #### 5 0608 #### [facility] [address] [place] [id number], [facility] MCH (RBC) [Entitic mass] 30.0 pg Normal 27.0-33.0 [facility] Comment on above: Performed By: #### 5 0608 #### [facility] [address] [place] [id number], [facility] MCHC (RBC) [Mass/Vol] 31.9 g/dL Low 32.0-35.0 [facility] Comment on above: Performed By: #### 5 0608 #### [facility] [address] [facility]. [address] MCV (RBC) [Entitic vol] 94.3 fL Normal 82.0-98.0 [facility] Comment on above: Performed By: #### 5 0608 #### [facility] [address] Nucleated RBC/100 WBC (Bld) [Ratio] 0 % Normal 0-0 [facility] Comment on above: Performed By: #### 5 0608 #### [facility] [address] [facility]. [address] PLAT CNT 270 10*3/uL Normal 150-400 [facility] Comment on above: Performed By: #### 5 0608 #### [facility] [address] [facility]. [address] RBC (Bld) [#/Vol] 4.56 10*6/uL Normal 3.80-5.00 [facility] Comment on above: Performed By: #### 5 0608 #### [facility] [address] [place] [address], [facility] WBC (Bld) [#/Vol] 9.44 10*3/uL Normal 4.00-10.60 [facility] Comment on above: Performed By: #### 5 0608 #### [facility] [address] PROTHROMBIN TIMEon 9 INR Coag (PPP) [Relative time] 1.85 {INR} High 0.91-1.16 [facility] Comment on above: Result Comment: ACCC [...] 1995;108:231S-246S. Performed By: #### 5 6101 #### [facility] [address] PT Coag (PPP) [Time] 21.4 s High 12.3-14.8 [facility] Comment on above: Result Comment: ALL RESULTS MUST BE INTERPRETED WITH RESPECT TO BLOOD DRAWING ARTIFACT OR DILUTION ERROR OF ANTICOAGULANT AT THE TIME OF SAMPLING. Performed By: #### 5 6101 #### [facility] [address] Encounters Encounter Date Encounter Type Care Provider Facility Start: 01-23-2024 End: 01-23-2024 ambulatory [facility] Start: 01-11-2024 End: 01-11-2024 ambulatory ANITA [facility] Start: 12-31-2023 End: 12-31-2023 ambulatory [facility] Start: 12-26-2023 End: 12-29-2023 Evaluation and management of inpatient COLIN KEITH [facility] Start: 12-25-2023 End: 12-29-2023 Evaluation and management of inpatient BIJAL Vincent BARNHART [facility] Start: 12-21-2023 End: 12-29-2023 Orders Only Korina Oliver MD Work Phone: [facility] Start: 12-20-2023 End: 12-29-2023 Emergency department patient visit [facility] Start: 12-20-2023 End: 12-29-2023 Emergency department patient visit DANAE BRITTON [facility] Start: 12-20-2023 End: 12-28-2023 Evaluation and management of inpatient [facility] Start: 11-01-2023 End: 11-01-2023 ambulatory E[facility] Start: 10-31-2023 End: 10-31-2023 ambulatory YAHIR BROTHERS Not Available Start: 09-05-2023 End: 09-05-2023 ambulatory YAHIR BROTHERS Not Available Start: 07-07-2023 End: 07-10-2023 ambulatory YAHIR BROTHERS Not Available Start: 05-23-2023 End: 05-23-2023 ambulatory RAMAN KANGQING [facility] Start: 03-02-2023 End: 03-03-[address] DOCTOR LOYOLA Facility:[facility] Start: 02-19-2023 End: 02-19-2023 ambulatory [facility] Start: 12-27-2022 End: 12-28-[address] YAHIR BROTHERS Facility:[facility] Start: 05-17-2022 End: 05-18-[address] YAHIR BROTHERS Facility:[facility] Start: 01-29-2019 End: 02-02-2019 Evaluation and management of inpatient YAHIR BROTHERS Facility:[facility] Procedures Date Procedure Procedure Detail Performing [...] Td Vaccines (2 - Td or Tdap) [facility] Start: 12-20-2024 Adult BMI Screening Adult BMI Screen ing [facility] Start: 12-20-2024 Tobacco Screening Tobacco Screening [facility] Start: 06-22-2023 COVID-19 Vaccine ( season) COVID-19 Vaccine ( season) [facility] Start: 2017 Fall Risk Screening Fall Risk Screen ing [facility] Start: 1970 Adult BMI Follow Up Plan Adult BMI Follow Up Plan [facility] Start: 1964 Depression Screening Depression Scre ening [facility] Start: 1952 Medicare Annual Wellness Visit Medicare Annual Wellness Visit [facility] Immunizations Immunization Date Immunization Notes Care Provider Fa cility 02-04-2021 COVID-19, mRNA, LNP- S, PF, 100mcg/0.5mL Dose Korina Oliver MD Work Phone: [facility] 01-07-2021 COVID-19, mRNA, LNP- S, PF, 100mcg/0.5mL Dose Korina Oliver MD Work Phone: [facility] 08-03-2019 pneumococcal conjuga te vaccine, 13 valent Korina Oliver MD Work Phone: [facility] Payers Date Payer Category Payer Unknown [facility] [facility] [id number] 2022-Present [phone] [address] [place] [address] [id number]. [id number] 1959 Unknown [id number] 1959 Unknown [id number] 1952 Unknown [id number] 2.16.840.1.810765.3.579.2.647 1952 Unknown [id number] 2.16.840.1.950193.3.579.2.593 1952 Unknown [id number] 2.16.840.1.405918.3.579.2.593 1952 Unknown [id number] 2.16.840.1.914440.3.579.2.593 1952 Unknown [id number] 2.16.840.1.528263.3.579.2.1286 1952 Unknown [id number] 2.16.840.1.992213.3.579.2.1286 1952 Unknown [id number] 2.16.840.1.482665.3.579.2.1286 1952 Unknown [id number] 2.16.840.1.016784.3.579.2.1286 1952 Unknown [id number] 2.16.840.1.379318.3.579.2.1286 1952 Unknown [id number] 2.16.840.1.736763.3.579.2.1286 1952 Unknown [id number] 2.16.840.1.149433.3.579.2.1286 1952 Unknown [id number] 2.16.840.1.697755.3.579.2.1286 1952 Unknown [id number] 2.16.840.1.213875.3.579.2.1286 1952 Unknown [id number] 2.16.840.1.275079.3.579.2.1259 1952 Unknown [id number] 2.16.840.1.518438.3.579.2.1259 1952 Unknown [id number] 2.16.840.1.763523.3.579.2.1259 1952 Unknown [id number] 2.16.840.1.526219.3.579.2.1286 Medicare [id number] Social History Date Type Detail Facility Start: 12-20-2023 Tobacco smoking stat us [facility] Ex-smoker [facility] End: 03-11-2002 History of tobacco use Current smoker [facility] End: 03-11-2002 History of tobacco use [facility]: 12-02-2020 End: 12-20-2023 Cigarettes smoked current (pack per day) - Reported 1 [facility] Start: 12-20-2023 Tobacco use and exposure Smoke less tobacco [facility] Start: 12-21-2023 Alcohol intake Ex-drinker (finding) [facility] Start: 12-02-2020 End: 12-20-2023 [facility] Has the [employer], or [employer] threatened to shut off services in your home in past 12Mo No [facility] In the past 12 month s, has lack of transportation kept you from medical appointments or from getting medications? No [facility] Start: 12-20-2023 Tobacco Comment quit 17 years ago [facility] [employer] Start: 1950 Sex Assigned At Not on file P [employer] - Share Your Passion! Goals Date Patient Goal Desired Activity /State [...] Past Medical History: Diagnosis Date Atrial fibrillation ([facility]) CHF (congestive heart failure) ([facility]) Hypertension Pulmonary embolism ([facility]) Past Surgical History: Past Surgical [...] on file Intimate Partner Violence: Unknown (12/13/2023) [place] Safety & Environment Fear of Current or [...] 2 ) G (more content not included)... [facility] Progress note 01-11-2024 Note Date & [...] today she has been residing at a custodial facility. Her son was present via telephone [...] Past Medical History: Diagnosis Date Atrial fibrillation ([facility]) CHF (congestive heart failure) ([facility]) Hypertension Pulmonary embolism ([facility]) Past Surgical History: Past Surgical [...] on file Intimate Partner Violence: Unknown (12/13/2023) [place] Fear of Current or [...] kg (304 lb) (more content not included)... [facility] Progress note 11-01-2023 Note Date & Type Note Facility 11-01-2023 Note Cardiovascular [facility] SUBJECTIVE Chief Complaint Patient presents with Atrial [...] Disp: , Rfl (more content not included)... [facility] Progress note 11-01-2023 Note Date & [...] All other systems reviewed and are negative. [facility] Progress note 05-23-2023 Note Date & Type Note Facility 05-23-2023 Note [place] [facility] Subjective Afia Gill is a [...] filling pressures. She (more content not included)... [facility] Progress note 02-19-2023 Note Date & [...] All other systems reviewed and are negative. [facility] Progress note 02-19-2023 Note Date & [...] Obstructive sleep apnea, on CPAP. Status post [place] filter. Morbid obesity. She is currently on oxygen since December 20, 2018. Holter done to investigate palpitations showed atrial fibrillation with NSVT. Stress test 01/13/2019;1. Fixed versus minimally reversible perfusion defect of the anterior septal wall and apex. 2. Marked cardiomegaly and markedly low ejection fraction, 36%. 3. Dyskinesia of the apex with otherwise global moderate hypokinesis. Echocardiogram 2 (more content not included)... [facility] Instructions Note Date & Type Note [...] PM Hospital Course Note MR#: [id number] I [facility] Pt. Name: Afia Gill Admitted: 01/29/2019 [...] and content) DATE CREATED AUTHOR 06/17/2019 [facility] DATE CREATED AUTHOR AUTHOR'S ORGANIZ ATION 03/03/2023 [facility] DATE CREATED AUTHOR AUTHOR'S ORGANIZ ATION 12/29/2023 [facility] DATE CREATED AUTHOR AUTHOR'S ORGANIZ ATION 12/29/2023 [facility] DATE CREATED AUTHOR AUTHOR'S ORGANIZ ATION 12/31/2023 [facility] DATE CREATED AUTHOR AUTHOR'S ORGANIZ ATION 01/31/2024 [facility] Care Teams (unrecognized sec tion and content) Page Designer Relationship Specialty Start Date End Date Yahir Brothers MD [address] [facility] [address] [place] [id number] PCP - General Internal Medicine 12/20/23 FOR [...] BE BASED ON THE PRIMARY CLINICAL RECORDS. [employer] [facility]. provides no warranty or guarantee of the accuracy or completeness of information in this document.
[2024-02-01 08:29] LABS: Basophils Absolute Auto 0.1 10^3/uL (0.0-0.1); Basophils Percent Auto 0.6 % (0.2-2.0); Eosinophils Absolute Auto 0.7 10^3/uL (0.0-0.7); Eosinophils Percent Auto 5.7 % (0.9-7.0); Hematocrit 37.5 % (36.0-48.0); Hemoglobin 11.9 g/dL (12.0-16.0); Immature Granulocytes Abs Auto 0.11 10^3/uL (0.00-0.03); Immature Granulocytes Pct Auto 0.9 % (0.0-0.5); Lymphocytes Absolute Auto 3.1 10^3/uL (1.2-3.8); Lymphocytes Percent Auto 25.9 % (20.5-60.0); Mean Corpuscular HGB Conc 31.7 g/dL (29.9-35.2); Mean Corpuscular Hemoglobin 28.6 pg (26.7-34.0); Mean Corpuscular Volume 90.1 fL (81.0-99.0); Mean Platelet Volume 10.5 fL (9.5-13.5); Monocytes Absolute Auto 0.8 10^3/uL (0.3-0.8); Neutrophils Absolute Auto 7.2 10^3/uL (1.4-6.5); Neutrophils Percent Auto 59.9 % (43.0-75.0); Platelet Count 247 10^3/uL (150-450); Red Blood Count 4.16 10^6/uL (4.20-5.40); Red Cell Distribution Width 14.1 % (11.0-15.0)
[2024-02-01 09:01] LABS: Alanine Aminotransferase 32 U/L (14-59); Albumin Globulin Ratio 0.7; Alkaline Phosphatase 92 U/L (46-116); Anion Gap 14.2; Aspartate Amino Transferase 26 U/L (15-37); BUN Creatinine Ratio 17.8; Bilirubin Direct 0.1 mg/dL (0.0-0.2); Bilirubin Total 0.3 mg/dL (0.2-1.0); Carbon Dioxide 29.5 mmol/L (21.0-32.0); Chloride 98 mmol/L (98-107); Creatine Kinase 84 U/L (26-192); Estimated GFR (African America >60 (>=60); Estimated GFR (Non-African Ame >60 (>=60); Globulin 4.4 g/dL; Glucose 136 mg/dL (74-106); Potassium 3.7 mmol/L (3.5-5.1); Sodium 138 mmol/L (136-145); Total Protein 7.4 g/dL (6.4-8.2)
[2024-02-01 09:22] LABS: INR 1.34
== END 2024-02-01 02:44 | disposition home or self-care (01) ==
LOC: LAB 02:43
PROVIDERS: PCP Internal Medicine; Visit Provider Family Medicine
DX: M86.9 Osteomyelitis, unspecified (principal)
CPT/HCPCS: 36415; 80048; 80076; 82550; 85025; 85610

== ENCOUNTER 2024-02-04 04:55 | Outpatient (REF) | payer MEDICARE, SELFPAY ==
--- OUTSIDE RECORDS SUMMARY | 2023-12-28 01:45 | XMS_ITS | CCD ---
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 Name Role Phone YAHIR BROTHERS Referring Unavailable YAHIR BROTHERS Primary Care Unavailable LAN FROST Attending Unavailable LAN FROST Admitting Unavailable [place] Procedure Practitioner Unavailab le UNKNOWN, PROVIDER Surgeon Unavailable MIS, DR COELLO Admitting Unavailable MISC, DR COELLO Attending Unavailable ANDREA, DR GAO Primary Care Unavailable MISC, DR COELLO Consulting Unavailable ANDREA, DR GAO Admitting Unavailable ANDREA, DR GAO Attending Unavailable ANDREA, DR GAO Primary Care Unavailable ANDREA, DR GAO Consulting Unavailable ZAN, DR YAYA Miller Consulting Unavailable ANDREA, DR GAO Admitting Unavailable ANDREA, DR GAO Attending Unavailable ANDREA, DR GAO Primary Care Unavailable ANDREA, DR GAO Consulting Unavailable MACON, DR JEANETTE Armenta Consulting Unavailable YAHIR BROTHERS Attending Unavailable YAHIR BROTHERS Attending Unavailable YAHIR BROTHERS Attending Unavailable RAMAN GOMEZ Attending Unavailable JESSICA PRECIADO Attending Unavailable EBER JOSHUA Attending Unavailable Yahir Brothers MD Primary Care Provider RAND CRAWFORD Attending Unavailable YAHIR BROTHERS Primary Care Unavailable KORINA OLIVER Admitting Unavailable DANIEL BIRMINGHAM Consulting Unavailable DIVISION OF INFECTIOUS DISEASE, [facility] Consulting Unavailable YAYA KUMAR Consulting Unavailable Allergies Allergy Classification Reported Allergen(s) Allergy Type Date of Onset Reaction(s) Facility (1 source) Estrogens Drug Allergy 9 [facility] Repository (1 source) heparin Drug Allergy 9 [facility] Repository (2 sources) Penicillins; Translations: [PENICILLINS] Drug allergy (disorder) 9 [facility] Repository (2 sources) pregabalin Drug Allergy 9 [facility] Repository (5 sources) Bleach (Sodium Hypochlorite); Translations: [Bleach (Sodium Hypochlorite)] Propensity to adverse reactions (disorder) 9 [facility] Repository (3 sources) Aztreonam; Translations: [ESTROGENS, CONJUGATED] Drug Allergy [address] [facility] Repository (1 source) heparin Drug Allergy [facility] Repository (4 sources) Penicillin; Translations: [PENICILLIN] Drug Allergy [address] [facility] Repository (1 source) Misc-ENV; Translations: [Misc-ENV] Propensity to adverse reactions (disorder) [facility] Repository (3 sources) heparin; Translations: [HEPARIN (PORCINE)] Drug Allergy 9 [facility] Repository (1 source) heparin; Translations: [HEPARIN SODIUM, PORCINE] Drug Allergy 1 [facility] Repository (3 sources) pregabalin; Translations: [PREGABALIN] Drug Allergy 9 [facility] Repository (1 source) Estrogens, Conjugated (LONG-TERM) Drug Allergy 9 [facility] (2 sources) Other; Translations: [OTHER] Propensity to adverse reactions 1 [facility] Medications Completed/Discontinued Medications Medication Drug Class(es) Dates Sig (Normalized) Sig (Original) amLODIPine 5 mg oral tablet (1 source) Dihydropyridine Calcium Channel Kimmie take 1 tablet by mouth in the morning amLODIPine (NORVASC) 5 mg tablet Take 1 tablet (5 mg total) by mouth in the morning. 0 Suspended ascorbic acid 1000 mg oral tablet (1 source) Vitamin C take 1 tablet by mouth in the morning ascorbic acid, vitamin C, (VITAMIN C) 1000 mg tablet Take 1 tablet (1,000 mg total) by mouth in the morning. 0 Suspended aspirin 81 mg delayed release oral tablet (1 source) Platelet Aggregation Inhibitor, Nonsteroidal Anti-inflammatory Drug take 1 tablet by mouth in the morning aspirin 81 mg Take 1 tablet (81 mg total) by mouth in the morning. 0 Suspended digoxin 0.25 mg oral tablet (1 source) Cardiac Glycoside take 1 tablet by mouth in the morning digoxin (LANOXIN) 250 mcg tablet Take 1 tablet (250 mcg total) by mouth in the morning. 0 Suspended DULoxetine 60 mg delayed release oral capsule (1 source) Serotonin and Norepinephrine Reuptake Inhibitor take 1 capsule by mouth in the morning DULoxetine (CYMBALTA) 60 mg capsule Take 1 capsule (60 mg total) by mouth in the morning. 0 Suspended gabapentin 300 mg oral capsule (1 source) Anti-epileptic Agent gabapentin (NEURONTIN) 300 mg capsule Take 200 mg by mouth 3 (three) times a day. 0 Suspended 200 actuat levalbuterol 0.045 mg/actuat metered dose inhaler (1 source) beta2-Adrenergic Agonist Start: 03-12-2021 take 1-2 puff(s) by inhalation every four hours as needed for wheezing levalbuterol (XOPENEX HFA) 45 mcg/actuation inhaler Inhale 1-2 puffs every 4 (four) hours as needed for wheezing. 15 g 0 03/12/2021 Suspended levothyroxine sodium 0.125 mg oral tablet (1 source) l-Thyroxine take 2 tablets by mouth in the morning levothyroxine (SYNTHROID, LEVOTHROID) 125 MCG tablet Take 2 tablets (250 mcg total) by mouth in the morning. 0 Suspended 24 hr metoprolol succinate 200 mg extended release oral tablet (1 source) beta-Adrenergic Kimmie take 1 tablet by mouth every twenty-four hours in the morning metoprolol succinate XL (TOPROL-XL) 200 mg 24 hr tablet Take 1 tablet (200 mg total) by mouth in the morning. 0 Suspended potassium chloride 10 meq extended release oral capsule (1 source) take 1 capsule by mouth in the morning potassium chloride (KLOR-CON SPRINKLE) 10 MEQ CR capsule Take 1 capsule (10 mEq total) by mouth in the morning and 1 capsule (10 mEq total) before bedtime. With food . 0 Suspended pravastatin sodium 40 mg oral tablet (1 source) HMG-CoA Reductase Inhibitor take 1 tablet by mouth in the morning pravastatin (PRAVACHOL) 40 mg tablet Take 1 tablet (40 mg total) by mouth in the morning. 0 Suspended psyllium 520 mg oral capsule (1 source) take 1 capsule by mouth in the morning psyllium (METAMUCIL) 0.52 gram capsule Take 1 capsule (0.52 g total) by mouth in the morning. 0 Suspended sacubitril 24 mg / valsartan 26 mg oral tablet (1 source) Angiotensin 2 Receptor Kimmie take 1 tablet by mouth in the morning sacubitriL-valsarta n (ENTRESTO) 24-26 mg tablet Take 1 tablet by mouth in the morning and 1 tablet before bedtime. 0 Suspended spironolactone 25 mg oral tablet (1 source) Aldosterone Antagonist take 1 tablet by mouth in the morning spironolactone (ALDACTONE) 25 mg tablet Take 1 tablet (25 mg total) by mouth in the morning. 0 Suspended torsemide 20 mg oral tablet (1 source) Loop Diuretic take 1 tablet by mouth twice daily torsemide (DEMADEX) 20 mg tablet Take 1 tablet (20 mg total) by mouth 2 (two) times a day. 0 Suspended traZODone hydrochloride 50 mg oral tablet (1 source) Serotonin Reuptake Inhibitor take 1 tablet by mouth once daily traZODone (DESYREL) 50 mg tablet Take 1 tablet (50 mg total) by mouth nightly. 0 Suspended warfarin sodium 1 mg oral tablet (1 source) Vitamin K Antagonist take 5 tablets by mouth once daily in the evening warfarin (COUMADIN) 1 mg tablet Take 5 tablets (5 mg total) by mouth in the evening. 12 mg on even days 11 mg on odd days . 0 Suspended Problems Active Problems Problem Classification Problem Date Documented Da te Episodic/Chronic Cardiac dysrhythmias (1 source) Atrial fibrillation; Translations: [Unspecified atrial fibrillation] Onset: 12-21-2023 12-21-2023 Chronic Congestive heart failure; nonhypertensive (2 sources) Chronic systolic (congestive) heart failure; Translations: [Chronic systolic (congestive) heart failure] Onset: 07-28-2022 Chronic Disorders of lipid metabolism (3 sources) Mixed hyperlipidemia; Translations: [Hyperlipidemia] Onset: 05-23-2023 Chronic E Codes: Fall (2 sources) Fall; Translations: [Unspecified fall, initial encounter] Onset: 12-20-2023 12-21-2023 Episodic Essential hypertension (3 sources) Essential (primary) hypertension; Translations: [Hypertensive disorder] Onset: 02-19-2023 Chronic Gastrointestinal hemorrhage (2 sources) Melena; Translations: [Melena] Onset: 11-01-2023 Episodic Hypertension with complications and secondary hypertension (2 sources) Hypertensive heart disease with heart failure; Translations: [Hypertensive heart disease with heart failure] Onset: 11-01-2023 Chronic Infective arthritis and osteomyelitis (except that caused by tuberculosis or sexually transmitted disease) (2 sources) Osteomyelitis of forefoot; Translations: [Osteomyelitis, unspecified] Onset: 12-21-2023 12-21-2023 Chronic Other circulatory disease (2 sources) Presence of other vascular implants and grafts; Translations: [Presence of other vascular implants and grafts] Onset: 07-28-2022 Chronic Other connective tissue disease (1 source) Pain in toe Onset: 12-20-2023 Episodic Other non-traumatic joint disorders (1 source) Knee pain Onset: 12-20-2023 Episodic Other nutritional; endocrine; and metabolic disorders (2 sources) Morbid (severe) obesity due to excess calories; Translations: [Morbid (severe) obesity due to excess calories] Onset: 07-28-2022 Chronic Other screening for suspected conditions (not mental disorders or infectious disease) (4 sources) Encounter for screening mammogram for malignant neoplasm of breast; Translations: [ENC SCR MAMMO MALIG NEOPLASM BREAST] Onset: 12-27-2022 Episodic Peripheral and visceral atherosclerosis (1 source) Peripheral vascular disease, unspecified; Translations: [Peripheral vascular disease, unspecified] Onset: 12-21-2023 12-21-2023 Chronic Residual codes; unclassified (1 source) Family history of malignant neoplasm of breast; Translations: [FAMILY HX MALIG NEOPLASM OF BREAST] Onset: 01-02-2023 Episodic Residual codes; unclassified (1 source) Family history of malignant neoplasm of other genital organs; Translations: [FAM HX MALIG NEOPLSM OT GENIT ORGN] Onset: 01-02-2023 Episodic Superficial injury; contusion (2 sources) Contusion of right knee; Translations: [Contusion of right knee, initial encounter] Onset: 12-21-2023 12-21-2023 Episodic Unclassified (2 sources) Permanent atrial fibrillation; Translations: [Permanent atrial fibrillation] Onset: 07-28-2022 Unclassified (1 source) Heparin-induced thrombocytopenia, unspecified; Translations: [Heparin-induced thrombocytopenia, unspecified] Onset: 07-28-2022 Unclassified (1 source) ill Onset: 12-20-2023 Past or Other Problems Problem Classification Problem Date Documented Da te Episodic/Chronic Other connective tissue disease (2 sources) Repeated falls; Translations: [Repeated falls] Onset: 07-28-2022 Episodic Other connective tissue disease (1 source) Non-traumatic rhabdomyolysis; Translations: [Rhabdomyolysis] Onset: 07-31-2019 07-31-2019 Episodic Other lower respiratory disease (1 source) Hypoxia; Translations: [Hypoxemia] Onset: 03-10-2021 03-10-2021 Episodic Other upper respiratory disease (4 sources) [...] Test Name Value Interpretation Reference Range Facility CBC AND AUTO DIFFon 12-27-19 24 ABSOLUTE BASOPHIL 0.0 X10E9/L Normal 0.0-0.2 [facility] Comment on above: Performed By: #### Chanel ERICKSON CMP, 1986-02 #### [facility] ([id number]) [address] [place] [address] #### [id number] #### [facility] ([id number]) [address] [place] [address] ABSOLUTE NEUTROPHIL 8.9 X10E9/L High 1.5-6.6 [facility] Comment on above: Performed By: #### Chanel ERICKSON CMP, 1986-02 #### [facility] ([id number]) [address] [place] [address] #### [id number] #### [facility] ([id number]) [address] [place] [address] Basophils/100 WBC (Bld) 0.3 % Normal [facility] Comment on above: Performed By: #### Chanel ERICKSON, [facility], 1986-02 #### [facility] ([id number]) [address] [place] [address] #### [id number] #### [facility] ([id number]) [address], [address] [place] [address] Eosinophils (Bld) [#/Vol] 0.8 10*3/uL High 0.0-0.4 [facility] Comment on above: Performed By: #### Chanel ERICKSON, CMP, 1986-02 #### [facility] ([id number]) [address] [place] [address]10[address] #### [id number] #### [facility] ([id number]) [address], [address] [place] [address] Eosinophils/100 WBC (Bld) 6.1 % Normal [facility] Comment on above: Performed By: #### Chanel ERICKSON [facility], 1988-02 #### [facility] ([id number]) [address] [place] [address] #### [id number] #### [facility] ([id number]) [address], [address] [place] [address] Erythrocyte distribution width (RBC) [Ratio] 13.7 % Normal 11.5-15.0 [facility] Comment on above: Performed By: #### Chanel BCA, CMP, 1986-02 #### [facility] ([id number]) [address] [place] [address] #### [id number] #### [facility] ([id number]) [address], [address] [place] [address] Hematocrit (Bld) [Volume fraction] 34.5 % Low 35-47 [facility] Comment on above: Performed By: #### C BCA, CMP, 1986-02 #### [facility] ([id number]) [address] [place] [address] #### [id number] #### [facility] ([id number]) [address], [address] [place] [address] Hemoglobin (Bld) [Mass/Vol] 11.5 g/dL Low 11.7-15.5 [facility] Comment on above: Performed By: #### Chanel ERICKSON [facility], 1988-02 #### [facility] ([id number]) [address] [place] [address] #### [id number] #### [facility] ([id number]) [address], [address] [place] [address] Lymphocytes (Bld) [#/Vol] 2.4 10*3/uL Normal 1.0-3.5 [facility] Comment on above: Performed By: #### Chanel ERICKSON [facility], 1988-02 #### [facility] ([id number]) [address] [place] [address] #### [id number] #### [facility] ([id number]) [address], [address] [place] [address] Lymphocytes/100 WBC (Bld) 18.4 % Normal [facility] Comment on above: Performed By: #### Chanel ERICKSON [facility], 1988-02 #### [facility] ([id number]) [address] [place] [address]284 #### [id number] #### [facility] ([id number]) [address], [address] [place] [address] MCH (RBC) [Entitic mass] 28.8 pg Normal 27-34 [facility] Comment on above: Performed By: #### Chanel ERICKSON [facility], 1988-02 #### [facility] ([id number]) [address] [place] [address]87[address] #### 30945-5 #### [facility] ([id number]) [address], [address] [place] [address] MCHC (RBC) [Mass/Vol] 33.3 g/dL Normal 32-36 [facility] Comment on above: Performed By: #### Chanel ERICKSON CMP, 1986-02 #### [facility] ([id number]) [address] [place] [address] 95299 #### [id number] #### [facility] ([id number]) [address] [place] [address] MCV (RBC) [Entitic vol] 87 fL Normal 80-100 [facility] Comment on above: Performed By: #### Chanel ERICKSON CMP, 1986-02 #### [facility] ([id number]) [address] [place] [address] 14892 #### [id number] #### [facility] ([id number]) [address] [place] [address] Monocytes (Bld) [#/Vol] 0.9 10*3/uL Normal 0-0.9 [facility] Comment on above: Performed By: #### Chanel ERICKSON CMP, 1988-02 #### [facility] ([id number]) [address] [place] [address] 67985 #### 56549-0 #### [facility] ([id number]) [address] [place] [address] Monocytes/100 WBC (Bld) 7.1 % Normal [facility] Comment on above: Performed By: #### Chanel ERICKSON CMP, 1988-02 #### [facility] ([id number]) [address] [place] [address]26 #### 42934-7 #### [facility] ([id number]) [address], [address] [place] [address] Neutrophils/100 WBC (Bld) 68.1 % Normal [facility] Comment on above: Performed By: #### Chanel ERICKSON CMP, 1988-02 #### [facility] ([id number]) [address] [place] [address] 73479 #### 92224-9 #### [facility] ([id number]) [address], [address] [place] [address] Platelet mean volume (Bld) [Entitic vol] 8.7 fL Normal 7-12 [facility] Comment on above: Performed By: #### Chanel ERICKSON CMP, 1988-02 #### [facility] ([id number]) [address] [place] [address] #### 30783-6 #### [facility] ([id number]) [address] [place] [address] Platelets (Bld) [#/Vol] 323 10*3/uL Normal 150-450 [facility] Comment on above: Performed By: #### Chanel ERICKSON CMP, 1988-02 #### [facility] ([id number]) [address] [place] [address] 43583 #### 60916-9 #### [facility] ([id number]) [address] [place] [address] RBC COUNT 3.98 X10E12/L Normal 3.80-5.20 [facility] Comment on above: Performed By: #### Chanel ERICKSON CMP, 1988-02 #### [facility] ([id number]) [address] [place] [address] 07498 #### 10358-3 #### [facility] ([id number]) [address], [address] [place] [address] WBC (Bld) [#/Vol] 13.1 10*3/uL High 4.0-11.0 [facility] Comment on above: Performed By: #### Chanel ERICKSON CMP, 1988-02 #### [facility] ([id number]) [address] [place] [address] 45785 #### 80153-7 #### [facility] ([id number]) [address], [address] [place] [address] COMPREHENSIVE METABOLIC PANE [place] 12-27-2023 Albumin [Mass/Vol] 3.0 g/dL Low 3.2-5.3 [facility] Comment on above: Performed By: #### Chanel ERICKSON CMP, 1986-02 #### [facility] ([id number]) [address] [place] [address] 56119 #### 35233-0 #### [facility] ([id number]) [address] [place] [address], [address] [place] [address] ALP [Catalytic activity/Vol] 68 U/L Normal 39-130 [facility] Comment on above: Performed By: #### Chanel ERICKSON CMP, 1986-02 #### [facility] ([id number]) [address] [place] [address] 47262 #### 18176-4 #### [facility] ([id number]) [address] [place] [address], [address] [place] [address] ALT [Catalytic activity/Vol] 17 U/L Normal 0-31 [facility] Comment on above: Performed By: #### Chanel BCA, CMP, 1986-02 #### [facility] ([id number]) [address] [place] [address] 10375 #### 55141-9 #### [facility] ([id number]) [address], [address] [place] [address] Anion gap [Moles/Vol] 8 mmol/L Normal 5-15 [facility] Comment on above: Performed By: #### Chanel ERICKSON [facility], 1988-02 #### [facility] ([id number]) [address] [place] [address] 83154 #### 24609-4 #### [facility] ([id number]) [address], [address] [place] [address] AST [Catalytic activity/Vol] 16 U/L Normal 0-41 [facility] Comment on above: Performed By: #### Chanel ERICKSON [facility], 1988-02 #### [facility] ([id number]) [address] [place] [address] 15581 #### [id number] #### [facility] ([id number]) [address], [address] [place] [address] Bilirubin [Mass/Vol] 0.5 mg/dL Normal 0.3-1.2 [facility] Comment on above: Performed By: #### Chanel ERICKSON [facility], 1988-02 #### [facility] ([id number]) [address] [place] [address] 85912 #### [id number] #### [facility] ([id number]) [address], [address] [place] [address] Calcium [Mass/Vol] 8.3 mg/dL Low 8.5-10.5 [facility] Comment on above: Performed By: #### Chanel ERICKSON [facility], 1988-02 #### [facility] ([id number]) [address] [place] [address] 18252 #### 57985-4 #### [facility] ([id number]) [address] [place] [address] Chloride [Moles/Vol] 99 mmol/L Normal 98-109 [facility] Comment on above: Performed By: #### C DRE [facility], 1988-02 #### [facility] ([id number]) [address] [place] [address] 39552 #### 67116-9 #### [facility] ([id number]) [address] [place] [address] CO2 [Moles/Vol] 31 mmol/L Normal 22-32 [facility] Comment on above: Performed By: #### C DRE [facility], 1988-02 #### [facility] ([id number]) [address] [place] [address] 05889 #### 83234-8 #### [facility] ([id number]) [address] [place] [address] Creatinine [Mass/Vol] 0.71 mg/dL Normal 0.40-1.00 [facility] Comment on above: Result Comment: METH OD TRACEABLE TO IDMS STANDARD Performed By: #### Chanel ERICKSON CMP, 1986-02 #### [facility] ([id number]) [address] [place] [address] 30637 #### 02222-8 #### [facility] ([id number]) [address] [place] [address] eGFR (CKD-EPI) NON-RACE DEPENDENT >90 Normal >59 [facility] Comment on above: Result Comment: Reported eGFR is based on the CKD-EPI 2020 equation that does not use a race coefficient. Performed By: #### Chanel ERICKSON CMP, 1988-02 #### [facility] ([id number]) [address] [place] [address] 71749 #### 14823-2 #### [facility] ([id number]) [address] [place] [address] Glucose [Mass/Vol] 119 mg/dL High 65-99 [facility] Comment on above: Performed By: #### Chanel ERICKSON [facility], 1988-02 #### [facility] ([id number]) [address] [place] [address] 67555 #### 61800-2 #### [facility] ([id number]) [address] [place] [address] Potassium [Moles/Vol] 3.6 mmol/L Normal 3.5-5.0 [facility] Comment on above: Performed By: #### Chanel ERICKSON [facility], 1988-02 #### [facility] ([id number]) [address] [place] [address] 36197 #### 28750-5 #### [facility] ([id number]) [address] [place] [address] Protein [Mass/Vol] 7.0 g/dL Normal 6.0-8.0 [facility] Comment on above: Performed By: #### Chanel ERICKSON [facility], 1988-02 #### [facility] ([id number]) [address] [place] [address] 78418 #### [id number] #### [facility] ([id number]) [address], [address] [place] [address] Sodium [Moles/Vol] 138 mmol/L Normal 134-146 [facility] Comment on above: Performed By: #### Chanel ERICKSON CMP, 1986-02 #### [facility] ([id number]) [address] [place] [address]61 #### 65013-7 #### [facility] ([id number]) [address], [address] [place] [address] Urea nitrogen [Mass/Vol] 18 mg/dL Normal 5-27 [facility] Comment on above: Performed By: #### Chanel ERICKSON CMP, 1986-02 #### [facility] ([id number]) [address] [place] [address] 50579 #### 67698-5 #### [facility] ([id number]) [address], [address] [place] [address] Glucose Glucometer (BldC) [M ass/Vol]on 12-27-2023 Glucose [Mass/Vol] 181 mg/dL High 65-99 [facility] MAGNESIUMon 12-27-2023 Magnesium [Mass/Vol] 2.3 mg/dL Normal 1.8-2.6 [facility] Comment on above: Performed By: #### U A #### [facility] ([id number]) [address] [place] [address] PROTIME AND INRon 12-27-2023 INR Coag (PPP) [Relative time] 2.9 {INR} High 0.8-1.1 [facility] Comment on above: Performed By: #### Chanel ERICKSON CMP, 1986-02 #### [facility] ([id number]) [address] [place] [address] 83913 #### 16455-4 #### [facility] ([id number]) [address], [address] [place] [address] PT Coag (PPP) [Time] 32.6 s High 9.8-13.2 [facility] Comment on above: Result Comment: NEW REFERENCE RANGE Performed By: #### Chanel ERICKSON CMP, 1986-02 #### [facility] ([id number]) [address] [place] [address] 12413 #### 95541-6 #### [facility] ([id number]) [address], [address] [place] [address] CBC AND AUTO DIFFon 12-26-19 24 ABSOLUTE BASOPHIL 0.1 X10E9/L Normal 0.0-0.2 [facility] Comment on above: Performed By: #### Chanel ERICKSON CMP, 1986-02 #### [facility] ([id number]) [address] [place] [address] 96479 #### 38766-5 #### [facility] ([id number]) [address], [address] [place] [address] ABSOLUTE NEUTROPHIL 11.1 X10E9/L High 1.5-6.6 [facility] Comment on above: Performed By: #### Chanel ERICKSON CMP, 1986-02 #### [facility] ([id number]) [address] [place], [place] [address] #### 27209-9 #### [facility] ([id number]) [address], [address] [place] [address] Basophils/100 WBC (Bld) 0.4 % Normal [facility] Comment on above: Performed By: #### Chanel ERICKSON CMP, 1986-02 #### [facility] ([id number]) [address] [place] [address] 26771 #### 97256-8 #### [facility] ([id number]) [address], [address] [place] [address] Eosinophils (Bld) [#/Vol] 0.8 10*3/uL High 0.0-0.4 [facility] Comment on above: Performed By: #### Chanel ERICKSON CMP, 1986-02 #### [facility] ([id number]) [address] [place] [address] 60723 #### 90785-5 #### [facility] ([id number]) [address], [address] [place] [address] Eosinophils/100 WBC (Bld) 5.4 % Normal [facility] Comment on above: Performed By: #### Chanel ERICKSON [facility], 1988-02 #### [facility] ([id number]) [address] [place] [address] 19920 #### [id number] #### [facility] ([id number]) [address], [address] [place] [address] Erythrocyte distribution width (RBC) [Ratio] 13.9 % Normal 11.5-15.0 [facility] Comment on above: Performed By: #### Chanel ERICKSON CMP, 1986-02 #### [facility] ([id number]) [address] [place] [address] 25636 #### 15079-6 #### [facility] ([id number]) [address], [address] [place] [address] Hematocrit (Bld) [Volume fraction] 35.9 % Normal 35-47 [facility] Comment on above: Performed By: #### Chanel ERICKSON [facility], 1988-02 #### [facility] ([id number]) [address] [place] [address] 05734 #### 00536-5 #### [facility] ([id number]) [address], [address] [place] [address] Hemoglobin (Bld) [Mass/Vol] 11.7 g/dL Normal 11.7-15.5 [facility] Comment on above: Performed By: #### Chanel ERICKSON CMP, 1988-02 #### [facility] ([id number]) [address] [place] [address] 69752 #### 78726-3 #### [facility] ([id number]) [address], [address] [place] [address] Lymphocytes (Bld) [#/Vol] 2.6 10*3/uL Normal 1.0-3.5 [facility] Comment on above: Performed By: #### Chanel ERICKSON, CMP, 1988-02 #### [facility] ([id number]) [address] [place] [address] 32497 #### 74069-0 #### [facility] ([id number]) [address], [address] [place] [address] Lymphocytes/100 WBC (Bld) 16.6 % Normal [facility] Comment on above: Performed By: #### C DRE, CMP, 1988-02 #### [facility] ([id number]) [address] [place] [address] 83224 #### 51181-9 #### [facility] ([id number]) [address], [address] [place] [address] MCH (RBC) [Entitic mass] 28.2 pg Normal 27-34 [facility] Comment on above: Performed By: #### Chanel ERICKSON CMP, 1988-02 #### [facility] ([id number]) [address] [place] [address] 50674 #### 21647-8 #### [facility] ([id number]) [address], [address] [place] [address] MCHC (RBC) [Mass/Vol] 32.7 g/dL Normal 32-36 [facility] Comment on above: Performed By: #### Chanel BCA, CMP, 1988-02 #### [facility] ([id number]) [address] [place] [address] 99599 #### 17642-8 #### [facility] ([id number]) [address], [address] [place] [address] MCV (RBC) [Entitic vol] 86 fL Normal 80-100 [facility] Comment on above: Performed By: #### Chanel BCA, CMP, 1988-02 #### [facility] ([id number]) [address] [place] [address] 60082 #### 24719-6 #### [facility] ([id number]) [address], [address] [place] [address] Monocytes (Bld) [#/Vol] 0.9 10*3/uL Normal 0-0.9 [facility] Comment on above: Performed By: #### Chanel ERICKSON CMP, 1988-02 #### [facility] ([id number]) [address] [place] [address] 34997 #### 28218-6 #### [facility] ([id number]) [address] [place] [address] Monocytes/100 WBC (Bld) 5.9 % Normal [facility] Comment on above: Performed By: #### Chanel ERICKSON CMP, 1988-02 #### [facility] ([id number]) [address] [place] [address] 90898 #### 31864-4 #### [facility] ([id number]) [address] [place] [address] Neutrophils/100 WBC (Bld) 71.7 % Normal [facility] Comment on above: Performed By: #### Chanel ERICKSON CMP, 1988-02 #### [facility] ([id number]) [address] [place] [address] 27282 #### 78146-4 #### [facility] ([id number]) [address], [address] [place] [address] Platelet mean volume (Bld) [Entitic vol] 8.6 fL Normal 7-12 [facility] Comment on above: Performed By: #### Chanel ERICKSON CMP, 1988-02 #### [facility] ([id number]) [address] [place] [address] [place] [address] #### 82925-9 #### [facility] ([id number]) [address] [place] [address], [address] [place] [address] Platelets (Bld) [#/Vol] 338 10*3/uL Normal 150-450 [facility] Comment on above: Performed By: #### Chanel ERICKSON CMP, 1988-02 #### [facility] ([id number]) [address] [place] [address] 48211 #### 31222-4 #### [facility] ([id number]) [address] [place] [address], [address] [place] [address] RBC COUNT 4.16 X10E12/L Normal 3.80-5.20 [facility] Comment on above: Performed By: #### Chanel ERICKSON CMP, 1988-02 #### [facility] ([id number]) [address] [place] [address] 29275 #### 95995-4 #### [facility] ([id number]) [address] [place] [address], [address] [place] [address] WBC (Bld) [#/Vol] 15.5 10*3/uL High 4.0-11.0 [facility] Comment on above: Performed By: #### Chanel ERICKSON CMP, 1988-02 #### [facility] ([id number]) [address] [place] [address] 49443 #### 25913-7 #### [facility] ([id number]) [address] [place] [address], [address] [place] [address] COMPREHENSIVE METABOLIC PANE [place]one 12-26-2023 Albumin [Mass/Vol] 3.2 g/dL Normal 3.2-5.3 [facility] Comment on above: Performed By: #### Chanel ERICKSON CMP, 1988-02 #### [facility] ([id number]) [address] [place] [address] 12422 #### 09187-8 #### [facility] ([id number]) [address] [facility] [address], [address] [place] [address] ALP [Catalytic activity/Vol] 69 U/L Normal 39-130 [facility] Comment on above: Performed By: #### Chanel ERICKSON CMP, 1988-02 #### [facility] ([id number]) [address] [place] [address] 95340 #### 51259-9 #### [facility] ([id number]) [address] [place] [address], [address] [place] [address] ALT [Catalytic activity/Vol] 16 U/L Normal 0-31 [facility] Comment on above: Performed By: #### Chanel ERICKSON CMP, 1988-02 #### [facility] ([id number]) [address] [place] [address] 98402 #### 71280-6 #### [facility] ([id number]) [address] [place] [address], [address] [place] [address] Anion gap [Moles/Vol] 10 mmol/L Normal 5-15 [facility] Comment on above: Performed By: #### Chanel ERICKSON CMP, 1988-02 #### [facility] ([id number]) [address] [place] [address] 62107 #### 40502-7 #### [facility] ([id number]) [address] [place] [address], [address] [place] [address] AST [Catalytic activity/Vol] 17 U/L Normal 0-41 [facility] Comment on above: Performed By: #### Chanel BCA, CMP, 1988-02 #### [facility] ([id number]) [address] [place] [address] 58217 #### 18477-4 #### [facility] ([id number]) [address], [address] [place] [address] Bilirubin [Mass/Vol] 0.4 mg/dL Normal 0.3-1.2 [facility] Comment on above: Performed By: #### Chanel ERICKSON [facility], 1988-02 #### [facility] ([id number]) [address] [place] [address] 88365 #### 16339-9 #### [facility] ([id number]) [address], [address] [place] [address] Calcium [Mass/Vol] 8.7 mg/dL Normal 8.5-10.5 [facility] Comment on above: Performed By: #### Chanel ERICKSON [facility], 1988-02 #### [facility] ([id number]) [address] [place] [address] 15475 #### 26739-8 #### [facility] ([id number]) [address] [place] [address] Chloride [Moles/Vol] 98 mmol/L Normal 98-109 [facility] Comment on above: Performed By: #### Chanel ERICKSON [facility], 1988-02 #### [facility] ([id number]) [address] [place] [address] 31015 #### 11136-0 #### [facility] ([id number]) [address] [place] [address] CO2 [Moles/Vol] 31 mmol/L Normal 22-32 [facility] Comment on above: Performed By: #### Chanel ERICKSON [facility], 1988-02 #### [facility] ([id number]) [address] [place] [address] 02487 #### 04088-5 #### [facility] ([id number]) [address] [place] [address] Creatinine [Mass/Vol] 0.78 mg/dL Normal 0.40-1.00 [facility] Comment on above: Result Comment: METH OD TRACEABLE TO IDMS STANDARD Performed By: #### Chanel ERICKSON CMP, 1988-02 #### [facility] ([id number]) [address] [place] [address] 10534 #### 57004-7 #### [facility] ([id number]) [address], [address] [place] [address] GFR/1.73 sq M.predicted among non-blacks MDRD (S/P/Bld) [Vol rate/Area] 81 mL/min/{1.73_m2} Normal >59 [facility] Comment on above: Result Comment: Reported eGFR is based on the CKD-EPI 2020 equation that does not use a race coefficient. Performed By: #### C DRE [facility], 1988-02 #### [facility] ([id number]) [address] [place] [address] 61393 #### 06690-1 #### [facility] ([id number]) [address] [place] [address] Glucose [Mass/Vol] 129 mg/dL High 65-99 [facility] Comment on above: Performed By: #### Chanel ERICKSON CMP, 1988-02 #### [facility] ([id number]) [address] [place] [address] 24420 #### 67021-6 #### [facility] ([id number]) [address], [address] [place] [address] Potassium [Moles/Vol] 3.8 mmol/L Normal 3.5-5.0 [facility] Comment on above: Performed By: #### Chanel ERICKSON CMP, 1988-02 #### [facility] ([id number]) [address] [place] [address] 73422 #### 11699-1 #### [facility] ([id number]) [address], [address] [place] [address] Protein [Mass/Vol] 7.3 g/dL Normal 6.0-8.0 [facility] Comment on above: Performed By: #### Chanel ERICKSON CMP, 1988-02 #### [facility] ([id number]) [address] [place] [address] 97878 #### 47424-3 #### [facility] ([id number]) [address] [place] [address] Sodium [Moles/Vol] 139 mmol/L Normal 134-146 [facility] Comment on above: Performed By: #### Chanel ERICKSON CMP, 1988-02 #### [facility] ([id number]) [address] [place] [address] 55459 #### 59182-9 #### [facility] ([id number]) [address] [place] [address] Urea nitrogen [Mass/Vol] 19 mg/dL Normal 5-27 [facility] Comment on above: Performed By: #### Chanel ERICKSON CMP, 1988-02 #### [facility] ([id number]) [address] [place] [address] 12526 #### 79253-7 #### [facility] ([id number]) [address], [address] [place] [address] Glucose Glucometer (BldC) [M ass/Vol]on 12-26-2023 Glucose [Mass/Vol] 146 mg/dL High 65-99 [facility] Glucose [Mass/Vol] 182 mg/dL High 65-99 [facility] Glucose [Mass/Vol] 108 mg/dL High 65-99 [facility] MAGNESIUMon 12-26-2023 Magnesium [Mass/Vol] 2.3 mg/dL Normal 1.8-2.6 [facility] Comment on above: Performed By: #### C DRE, [facility], 1987- #### [facility] ([id number]) [address] [facility], [place] [address] #### 37669-7 #### [facility] ([id number]) [address] [place] [address] MR FOOT RT W WO CONTon 12-25 MR FOOT RT W WO CONT MR FOOT RT W WO CONT Clinical history: Right second digit erythema. Possible osteomyelitis. Pain. MRI right foot with and without contrast: 12/26/2023 PROCEDURE: Planar multisequence imaging of foot was performed. Images were obtained before and after 20 mL of ProHance intravenously. Correlation: Radiographs 12/25/2023 FINDINGS: Images are degraded by motion artifact. There is fluid within the second distal interphalangeal joint. Some juxta-articular signal changes are present within the middle phalanx intraosseous enhancement. There is no discrete linear abnormality on T1-weighted images. There is increased signal around the first metatarsophalangeal joint with joint fluid and capsular thickening. There is no discrete bone marrow abnormality. Some degenerative changes are present at the medial sesamoid articulation. Myotendinous structures appear intact There is increased signal on fluid sensitive sequences within the subcutaneous tissues of the dorsal foot with heterogeneous postcontrast enhancement. No nonenhancing area is evident. There is no soft tissue wound or abnormal cutaneous lesion evident on MRI evaluation. There is increased signal on fluid sensitive sequences within the intrinsic muscles of the plantar foot with minimal postcontrast enhancement. IMPRESSION: Joint effusions at the first MTP and second DIP joints with capsular enhancement and minimal juxta-articular signal change. Findings are nonspecific but most compatible with degenerative/posttrauma tic change. Infection cannot be excluded. Heterogeneous signal within the dorsal subcutaneous tissues and intrinsic muscles of the foot compatible with edema/cellulitis. Finalized by Nakul Alberto MD on 12/26/2023 12:57 PM Normal [facility] PROTIME AND INRon 12-26-2023 INR Coag (PPP) [Relative time] 3.0 {INR} High 0.8-1.1 [facility] Comment on above: Performed By: #### Chanel ERICKSON CMP, 1988-02 #### [facility] ([id number]) [address] [place] [address] 22270 #### 26340-2 #### [facility] ([id number]) [address] [place] [address] PT Coag (PPP) [Time] 33.3 s High 9.8-13.2 [facility] Comment on above: Result Comment: NEW REFERENCE RANGE Performed By: #### Chanel ERICKSON CMP, 1988-02 #### [facility] ([id number]) [address] [place] [address] 85804 #### 53886-6 #### [facility] ([id number]) [address] [place] [address] Vancomycin trough [Mass/Vol] on 12-26-2023 VANCOMYCIN TROUGH 11.6 ug/mL Normal 5.0-20.0 [facility] Comment on above: Performed By: #### Chanel ERICKSON [facility], 1988-02 #### [facility] ([id number]) [address] [place] [address] 72436 #### 69395-7 #### [facility] ([id number]) [address], [address] [place] [address] CBC AND AUTO DIFFon 12-25-19 24 ABSOLUTE BASOPHIL 0.1 X10E9/L Normal 0.0-0.2 [facility] Comment on above: Performed By: #### Chanel ERICKSON CMP, 1988-02 #### [facility] ([id number]) [address] [place] [address] 26148 #### 40965-5 #### [facility] ([id number]) [address] [place] [address] ABSOLUTE NEUTROPHIL 9.4 X10E9/L High 1.5-6.6 [facility] Comment on above: Performed By: #### Chanel ERICKSON [facility], 1988-02 #### [facility] ([id number]) [address] [place] [address] 64556 #### 85402-7 #### [facility] ([id number]) [address] [place] [address] Basophils/100 WBC (Bld) 0.4 % Normal [facility] Comment on above: Performed By: #### Chanel ERICKSON [facility], 1988-02 #### [facility] ([id number]) [address] [place] [address] 73584 #### 02911-0 #### [facility] ([id number]) [address], [address] [place] [address] Eosinophils (Bld) [#/Vol] 0.7 10*3/uL High 0.0-0.4 [facility] Comment on above: Performed By: #### Chanel ERICKSON [facility], 1988-02 #### [facility] ([id number]) [address] [place] [address] 55996 #### 25666-1 #### [facility] ([id number]) [address], [address] [place] [address] Eosinophils/100 WBC (Bld) 5.3 % Normal [facility] Comment on above: Performed By: #### Chanel ERICKSON [facility], 1988-02 #### [facility] ([id number]) [address] [place] [address] 12166 #### 84088-2 #### [facility] ([id number]) [address] [place] [address] Erythrocyte distribution width (RBC) [Ratio] 13.7 % Normal 11.5-15.0 [facility] Comment on above: Performed By: #### Chanel ERICKSON CMP, 1988-02 #### [facility] ([id number]) [address] [place] [address] 10255 #### 49196-1 #### [facility] ([id number]) [address], [address] [place] [address] Hematocrit (Bld) [Volume fraction] 37.8 % Normal 35-47 [facility] Comment on above: Performed By: #### Chanel ERICKSON, CMP, 1988-02 #### [facility] ([id number]) [address] [place] [address] 76405 #### 06654-9 #### [facility] ([id number]) [address] [place] [address] Hemoglobin (Bld) [Mass/Vol] 12.6 g/dL Normal 11.7-15.5 [facility] Comment on above: Performed By: #### Chanel ERICKSON CMP, 1988-02 #### [facility] ([id number]) [address] [place] [address] 26975 #### 96856-0 #### [facility] ([id number]) [address] [place] [address] Lymphocytes (Bld) [#/Vol] 2.4 10*3/uL Normal 1.0-3.5 [facility] Comment on above: Performed By: #### Chanel ERICKSON CMP, 1988-02 #### [facility] ([id number]) [address] [place] [address] 12290 #### 94303-3 #### [facility] ([id number]) [address] [place] [address] Lymphocytes/100 WBC (Bld) 17.5 % Normal [facility] Comment on above: Performed By: #### Chanel ERICKSON, CMP, 1988-02 #### [facility] ([id number]) [address] [place] [address] #### 70058-9 #### [facility] ([id number]) [address], [address] [place] [address] MCH (RBC) [Entitic mass] 28.8 pg Normal 27-34 [facility] Comment on above: Performed By: #### Chanel BCA, CMP, 1988-02 #### [facility] ([id number]) [address] [place] [address] #### [id number] #### [facility] ([id number]) [address], [address] [place] [address] MCHC (RBC) [Mass/Vol] 33.4 g/dL Normal 32-36 [facility] Comment on above: Performed By: #### Chanel ERICKSON CMP, 1988-02 #### [facility] ([id number]) [address] [place] [address] 98953 #### 29890-3 #### [facility] ([id number]) [address], [address] [place] [address] MCV (RBC) [Entitic vol] 86 fL Normal 80-100 [facility] Comment on above: Performed By: #### Chanel BCA, CMP, 1988-02 #### [facility] ([id number]) [address] [place] [address] #### 20289-5 #### [facility] ([id number]) [address], [address] [place] [address] Monocytes (Bld) [#/Vol] 1.1 10*3/uL High 0-0.9 [facility] Comment on above: Performed By: #### Chanel BCA, CMP, 1988-02 #### [facility] ([id number]) [address] [place] [address] #### 09299-1 #### [facility] ([id number]) [address], [address] [place] [address] Monocytes/100 WBC (Bld) 8.0 % Normal [facility] Comment on above: Performed By: #### Chanel ERICKSON CMP, 1988-02 #### [facility] ([id number]) [address] [place] [address] #### 44787-0 #### [facility] ([id number]) [address] [place] [address] Neutrophils/100 WBC (Bld) 68.8 % Normal [facility] Comment on above: Performed By: #### Chanel ERICKSON CMP, 1988-02 #### [facility] ([id number]) [address] [place] [address] 72531 #### 05384-0 #### [facility] ([id number]) [address], [address] [place] [address] Platelet mean volume (Bld) [Entitic vol] 8.4 fL Normal 7-12 [facility] Comment on above: Performed By: #### Chanel ERICKSON CMP, 1988-02 #### [facility] ([id number]) [address] [place] [address] 57927 #### 91996-6 #### [facility] ([id number]) [address], [address] [place] [address] Platelets (Bld) [#/Vol] 321 10*3/uL Normal 150-450 [facility] Comment on above: Performed By: #### Chanel ERICKSON CMP, 1988-02 #### [facility] ([id number]) [address] [place] [address] #### 78848-7 #### [facility] ([id number]) [address] [place] [address], [address] [place] [address] RBC COUNT 4.38 X10E12/L Normal 3.80-5.20 [facility] Comment on above: Performed By: #### C BCA CMP, 1988-02 #### [facility] ([id number]) [address] [place] [address] 70901 #### 42758-9 #### [facility] ([id number]) [address] [place] [address] WBC (Bld) [#/Vol] 13.7 10*3/uL High 4.0-11.0 [facility] Comment on above: Performed By: #### Chanel BCA CMP, 1988-02 #### [facility] ([id number]) [address] [place] [address] 84423 #### 81308-1 #### [facility] ([id number]) [address] [place] [address], [address] [address] COMPREHENSIVE METABOLIC PANE Tyrone 12-25-2023 Albumin [Mass/Vol] 3.3 g/dL Normal 3.2-5.3 [facility] Comment on above: Performed By: #### Chanel BCA CMP, 1988-02 #### [facility] ([id number]) [address] [place] [address] 56[address] #### 50049-7 #### [facility] ([id number]) [address] [place] [address] ALP [Catalytic activity/Vol] 66 U/L Normal 39-130 [facility] Comment on above: Performed By: #### Chanel BCA, CMP, 1988-02 #### [facility] ([id number]) [address] [place] [address], [place] [address] #### 33412-4 #### [facility] ([id number]) [address], [address] [place] [address] ALT [Catalytic activity/Vol] 16 U/L Normal 0-31 [facility] Comment on above: Performed By: #### Chanel ERICKSON CMP, 1988-02 #### [facility] ([id number]) [address] [place] [address]4748 #### 16015-8 #### [facility] ([id number]) [address], [address] [place] [address] Anion gap [Moles/Vol] 10 mmol/L Normal 5-15 [facility] Comment on above: Performed By: #### Chanel ERICKSON CMP, 1988-02 #### [facility] ([id number]) [address] [place] [address] 09879 #### 09863-8 #### [facility] ([id number]) [address], [address] [place] [address] AST [Catalytic activity/Vol] 17 U/L Normal 0-41 [facility] Comment on above: Performed By: #### Chanel ERICKSON CMP, 1988-02 #### [facility] ([id number]) [address] [place] [address] 397[address] #### 59123-9 #### [facility] ([id number]) [address], [address] [place] [address] Bilirubin [Mass/Vol] 0.5 mg/dL Normal 0.3-1.2 [facility] Comment on above: Performed By: #### Chanel ERICKSON, CMP, 1988-02 #### [facility] ([id number]) [address] [place] [address] 70023 #### 51953-6 #### [facility] ([id number]) [address], [address] [place] [address] Calcium [Mass/Vol] 8.9 mg/dL Normal 8.5-10.5 [facility] Comment on above: Performed By: #### C SEAN ERICKSON, 1988-02 #### [facility] ([id number]) [address] [place] [address] 64281 #### 14049-9 #### [facility] ([id number]) [address] [place] [address] Chloride [Moles/Vol] 98 mmol/L Normal 98-109 [facility] Comment on above: Performed By: #### C SEAN ERICKSON, 1988-02 #### [facility] ([id number]) [address] [place] [address] 77837 #### 99020-2 #### [facility] ([id number]) [address] [place] [address] CO2 [Moles/Vol] 31 mmol/L Normal 22-32 [facility] Comment on above: Performed By: #### C SEAN ERICKSON, 1988-02 #### [facility] ([id number]) [address] [place] [address] #### 24987-8 #### [facility] ([id number]) [address] [place] [address] Creatinine [Mass/Vol] 0.78 mg/dL Normal 0.40-1.00 [facility] Comment on above: Result Comment: METH OD TRACEABLE TO IDMS STANDARD Performed By: #### C SEAN ERICKSON, 1988-02 #### [facility] ([id number]) [address] [place] [address] 73555 #### 08970-0 #### [facility] ([id number]) [address] [place] [address] GFR/1.73 sq M.predicted among non-blacks MDRD (S/P/Bld) [Vol rate/Area] 81 mL/min/{1.73_m2} Normal >59 [facility] Comment on above: Result Comment: Reported eGFR is based on the CKD-EPI 2020 equation that does not use a race coefficient. Performed By: #### Chanel ERICKSON CMP, 1988-02 #### [facility] ([id number]) [address] [place] [address] 02296 #### 50234-4 #### [facility] ([id number]) [address] [place] [address] Glucose [Mass/Vol] 125 mg/dL High 65-99 [facility] Comment on above: Performed By: #### Chanel ERICKSON CMP, 1988-02 #### [facility] ([id number]) [address] [place] [address] 36072 #### 12950-8 #### [facility] ([id number]) [address], [address] [place] [address] Potassium [Moles/Vol] 3.5 mmol/L Normal 3.5-5.0 [facility] Comment on above: Performed By: #### Chanel ERICKSON CMP, 1988-02 #### [facility] ([id number]) [address] [place] [address] 47812 #### 17921-6 #### [facility] ([id number]) [address] [place] [address] Protein [Mass/Vol] 7.7 g/dL Normal 6.0-8.0 [facility] Comment on above: Performed By: #### Chanel ERICKSON CMP, 1988-02 #### [facility] ([id number]) [address] [place] [address] 88639 #### 19031-5 #### [facility] ([id number]) [address], [address] [place] [address] Sodium [Moles/Vol] 139 mmol/L Normal 134-146 [facility] Comment on above: Performed By: #### Chanel ERICKSON CMP, 1988-02 #### [facility] ([id number]) [address] [place] [address] 26267 #### 99549-0 #### [facility] ([id number]) [address], [address] [place] [address] Urea nitrogen [Mass/Vol] 19 mg/dL Normal 5-27 [facility] Comment on above: Performed By: #### Chanel ERICKSON CMP, 1988-02 #### [facility] ([id number]) [address] [place] [address] 59457 #### 39829-3 #### [facility] ([id number]) [address], [address] [place] [address] CRP [Mass/Vol]on 12-25-2023 C REACTIVE PROTEIN 8.6 mg/dL High 0.000-0.744 [facility] Comment on above: Performed By: #### Chanel ERICKSON CMP, 1988-02 #### [facility] ([id number]) [address] [place] [address]86 #### 49648-7 #### [facility] ([id number]) [address], [address] [place] [address] ESR Photometric method (Bld) [Velocity]on 12-25-2023 ESR, ERYTHROCYTE SEDIMENTATION RATE 85 mm/h High 0-30 [facility] Comment on above: Performed By: #### Chanel ERICKSON CMP, 1988-02 #### [facility] ([id number]) [address] [place] [address] 51684 #### 08469-3 #### [facility] ([id number]) [address], [address] [place] [address] Glucose Glucometer (BldC) [M ass/Vol]on 12-25-2023 Glucose [Mass/Vol] 171 mg/dL High 65-99 [facility] Glucose [Mass/Vol] 125 mg/dL High 65-99 [facility] Glucose [Mass/Vol] 154 mg/dL High 65-99 [facility] MAGNESIUMon 12-25-2023 Magnesium [Mass/Vol] 2.4 mg/dL Normal 1.8-2.6 [facility] Comment on above: Performed By: #### C DRE [facility], 1988-02 #### [facility] ([id number]) [address] [place] [address] 79433 #### 99154-8 #### [facility] ([id number]) [address] [place] [address] POTASSIUMon 12-25-2023 Potassium [Moles/Vol] 4.2 mmol/L Normal 3.5-5.0 [facility] Comment on above: Performed By: #### Chanel ERICKSON CMP, 1988-02 #### [facility] ([id number]) [address] [place] [address] 63617 #### 43007-6 #### [facility] ([id number]) [address], [address] [place] [address] PROTIME AND INRon 12-25-2023 INR Coag (PPP) [Relative time] 2.6 {INR} High 0.8-1.1 [facility] Comment on above: Performed By: #### Chanel ERICKSON CMP, 1988-02 #### [facility] ([id number]) [address] [place] [address] 82264 #### 62303-6 #### [facility] ([id number]) [address], [address] [place] [address] PT Coag (PPP) [Time] 29.7 s High 9.8-13.2 [facility] Comment on above: Result Comment: NEW REFERENCE RANGE Performed By: #### C SEAN ERICKSON, 1988-02 #### [facility] ([id number]) [address] [place] [address] #### 30132-1 #### [facility] ([id number]) [address], [address] [place] [address] URIC ACIDon 12-25-2023 Urate [Mass/Vol] 8.9 mg/dL High 2.6-7.2 [facility] Comment on above: Performed By: #### C DRE [facility], 1988-02 #### [facility] ([id number]) [address] [place] [address] 60857 #### 81055-9 #### [facility] ([id number]) [address], [address] [place] [address] XR CHEST 1 VWon 12-25-2023 XR CHEST 1 VW XR CHEST 1 VW Single view chest History:PICC Difficulty breathing, shortness of breath Comparison: 03/11/2021 Findings: Single portable view of the chest. Right PICC tip in the region of the SVC. Stable cardiomediastinal silhouette. There is bilateral lower lung atelectasis. Impression: Right PICC tip in the region of the SVC. Bilateral lower lung atelectasis. Finalized by Jem Wood MD on 12/25/2023 11:21 AM Normal [facility] XR FOOT RT 2 VWSon 4 XR FOOT RT 2 VWS XR FOOT RT 2 VWS XR FOOT RT 2 VWS INDICATION: 2nd toe red and swollen COMPARISON: 12/20/2023 TECHNIQUE: AP and lateral views FINDINGS: No acute fracture, dislocation, or destructive osseous lesion. Degenerative changes throughout the foot and ankle. No lytic lesion, focal osteopenia, or periosteal reaction to suggest osteomyelitis. Extensive soft tissue swelling. IMPRESSION: * No acute osseous abnormality or radiographic evidence to suggest osteomyelitis. Please note, MRI is more sensitive. * Extensive soft tissue swelling. Approved by Resident Aaron Arnold MD on 12/25/2023 2:48 PM I, Andreas Araujo MD have personally reviewed the image(s) and agree with and/or edited the report Finalized by Andreas Araujo MD on 12/25/2023 2:59 PM Normal [facility] CBC AND AUTO DIFFon 12-24-19 24 ABSOLUTE BASOPHIL 0.1 X10E9/L Normal 0.0-0.2 [facility] Comment on above: Performed By: #### C DRE [facility], 1988-02 #### [facility] ([id number]) [address] [place] [address] 35269 #### 94356-0 #### [facility] ([id number]) [address] [place] [address], [address] [place] [address] ABSOLUTE NEUTROPHIL 10.2 X10E9/L High 1.5-6.6 [facility] Comment on above: Performed By: #### Chanel ERICKSON [facility], 1988-02 #### [facility] ([id number]) [address] [place] [address] 32497 #### 46707-2 #### [facility] ([id number]) [address] [place] [address], [address] [place] [address] Basophils/100 WBC (Bld) 0.5 % Normal [facility] Comment on above: Performed By: #### C DRE [facility], 1988-02 #### [facility] ([id number]) [address] [place] [address] 96417 #### 82161-3 #### [facility] ([id number]) [address] [place] [address], [address] [place] [address] Eosinophils (Bld) [#/Vol] 0.9 10*3/uL High 0.0-0.4 [facility] Comment on above: Performed By: #### Chanel ERICKSON CMP, 1988-02 #### [facility] ([id number]) [address] [place] [address] 30674 #### 24054-9 #### [facility] ([id number]) [address], [address] [place] [address] Eosinophils/100 WBC (Bld) 6.2 % Normal [facility] Comment on above: Performed By: #### Chanel ERICKSON CMP, 1988-02 #### [facility] ([id number]) [address] [place] [address] 90400 #### 72621-4 #### [facility] ([id number]) [address], [address] [place] [address] Erythrocyte distribution width (RBC) [Ratio] 14.1 % Normal 11.5-15.0 [facility] Comment on above: Performed By: #### Chanel ERICKSON CMP, 1988-02 #### [facility] ([id number]) [address] [place] [address] 63053 #### 67000-2 #### [facility] ([id number]) [address], [address] [place] [address] Hematocrit (Bld) [Volume fraction] 37.3 % Normal 35-47 [facility] Comment on above: Performed By: #### Chanel ERICKSON CMP, 1988-02 #### [facility] ([id number]) [address] [place] [address] 97984 #### 12997-9 #### [facility] ([id number]) [address], [address] [place] [address] Hemoglobin (Bld) [Mass/Vol] 12.4 g/dL Normal 11.7-15.5 [facility] Comment on above: Performed By: #### Chanel ERICKSON CMP, 1988-02 #### [facility] ([id number]) [address] [place] [address] 62426 #### 05671-5 #### [facility] ([id number]) [address], [address] [place] [address] Lymphocytes (Bld) [#/Vol] 2.2 10*3/uL Normal 1.0-3.5 [facility] Comment on above: Performed By: #### Chanel ERICKSON CMP, 1988-02 #### [facility] ([id number]) [address] [place] [address] 71639 #### 66225-9 #### [facility] ([id number]) [address], [address] [place] [address] Lymphocytes/100 WBC (Bld) 15.4 % Normal [facility] Comment on above: Performed By: #### Chanel ERICKSON CMP, 1988-02 #### [facility] ([id number]) [address] [place] [address] 29480 #### 26591-1 #### [facility] ([id number]) [address], [address] [place] [address] MCH (RBC) [Entitic mass] 29.0 pg Normal 27-34 [facility] Comment on above: Performed By: #### Chanel ERICKSON, CMP, 1988-02 #### [facility] ([id number]) [address] [place] [address] 10274 #### 97987-8 #### [facility] ([id number]) [address], [address] [place] [address] MCHC (RBC) [Mass/Vol] 33.3 g/dL Normal 32-36 [facility] Comment on above: Performed By: #### Chanel ERICKSON [facility], 1988-02 #### [facility] ([id number]) [address] [place] [address] 05406 #### 52974-5 #### [facility] ([id number]) [address], [address] [place] [address] MCV (RBC) [Entitic vol] 87 fL Normal 80-100 [facility] Comment on above: Performed By: #### Chanel ERICKSON, [facility], 1988-02 #### [facility] ([id number]) [address] [place] [address] 23260 #### 05151-2 #### [facility] ([id number]) [address], [address] [place] [address] Monocytes (Bld) [#/Vol] 0.7 10*3/uL Normal 0-0.9 [facility] Comment on above: Performed By: #### Chanel ERICKSON [facility], 1988-02 #### [facility] ([id number]) [address] [place] [address] 40708 #### 92995-4 #### [facility] ([id number]) [address], [address] [place] [address] Monocytes/100 WBC (Bld) 5.3 % Normal [facility] Comment on above: Performed By: #### Chanel ERICKSON, CMP, 1988-02 #### [facility] ([id number]) [address] [place] [address] 43670 #### 77800-3 #### [facility] ([id number]) [address], [address] [place] [address] Neutrophils/100 WBC (Bld) 72.6 % Normal [facility] Comment on above: Performed By: #### Chanel BCA, CMP, 1988-02 #### [facility] ([id number]) [address] [place] [address] 62776 #### 50732-5 #### [facility] ([id number]) [address] [place] [address] Platelet mean volume (Bld) [Entitic vol] 8.6 fL Normal 7-12 [facility] Comment on above: Performed By: #### Chanel ERICKSON CMP, 1988-02 #### [facility] ([id number]) [address] [place] [address] 95067 #### 05590-2 #### [facility] ([id number]) [address] [place] [address] Platelets (Bld) [#/Vol] 339 10*3/uL Normal 150-450 [facility] Comment on above: Performed By: #### Chanel ERICKSON CMP, 1988-02 #### [facility] ([id number]) [address] [place] [address] 15957 #### 71858-4 #### [facility] ([id number]) [address] [place] [address] RBC COUNT 4.29 X10E12/L Normal 3.80-5.20 [facility] Comment on above: Performed By: #### Chanel ERICKSON CMP, 1988-02 #### [facility] ([id number]) [address] [place] [address] 86704 #### 31783-7 #### [facility] ([id number]) [address], [address] [place] [address] WBC (Bld) [#/Vol] 14.1 10*3/uL High 4.0-11.0 [facility] Comment on above: Performed By: #### Chanel ERICKSON CMP, 1988-02 #### [facility] ([id number]) [address] [place] [address] 18436 #### 92754-4 #### [facility] ([id number]) [address] [facility], [address] [place] [address] COMPREHENSIVE METABOLIC PANE Tyrone 12-24-2023 Albumin [Mass/Vol] 3.4 g/dL Normal 3.2-5.3 [facility] Comment on above: Performed By: #### Chanel BCA, CMP, 1988-02 #### [facility] ([id number]) [address] [place] [address] 11789 #### 80534-8 #### [facility] ([id number]) [address] [place] [address], [address] [place] [address] ALP [Catalytic activity/Vol] 67 U/L Normal 39-130 [facility] Comment on above: Performed By: #### Chanel BCA, CMP, 1988-02 #### [facility] ([id number]) [address] [place] [address] 76801 #### 69602-4 #### [facility] ([id number]) [address] [place] [address], [address] [place] [address] ALT [Catalytic activity/Vol] 13 U/L Normal 0-31 [facility] Comment on above: Performed By: #### Chanel BCA, CMP, 1988-02 #### [facility] ([id number]) [address] [place] [address] 65131 #### 85729-4 #### [facility] ([id number]) [address] [facility], [address] [place] [address] Anion gap [Moles/Vol] 11 mmol/L Normal 5-15 [facility] Comment on above: Performed By: #### C BCA, CMP, 1988-02 #### [facility] ([id number]) [address] [place] [address] 17871 #### 94854-6 #### [facility] ([id number]) [address], [address] [place] [address] AST [Catalytic activity/Vol] 16 U/L Normal 0-41 [facility] Comment on above: Performed By: #### C DRE CMP, 1988-02 #### [facility] ([id number]) [address] [place] [address] 84730 #### 72020-0 #### [facility] ([id number]) [address] [place] [address] Bilirubin [Mass/Vol] 0.4 mg/dL Normal 0.3-1.2 [facility] Comment on above: Performed By: #### Chanel ERICKSON CMP, 1988-02 #### [facility] ([id number]) [address] [place] [address] 42602 #### 28806-8 #### [facility] ([id number]) [address] [place] [address] Calcium [Mass/Vol] 8.9 mg/dL Normal 8.5-10.5 [facility] Comment on above: Performed By: #### Chanel ERICKSON CMP, 1988-02 #### [facility] ([id number]) [address] [place] [address] #### [id number] #### [facility] ([id number]) [address], [address] [place] [address] Chloride [Moles/Vol] 99 mmol/L Normal 98-109 [facility] Comment on above: Performed By: #### Chanel BCA CMP, 1986-02 #### [facility] ([id number]) [address] [place] [address] #### [id number] #### [facility] ([id number]) [address], [address] [place] [address] CO2 [Moles/Vol] 30 mmol/L Normal 22-32 [facility] Comment on above: Performed By: #### C SEAN ERICKSON, 1986-02 #### [facility] ([id number]) [address] [place] [address] #### [id number] #### [facility] ([id number]) [address], [address] [place] [address] Creatinine [Mass/Vol] 0.83 mg/dL Normal 0.40-1.00 [facility] Comment on above: Result Comment: METH OD TRACEABLE TO IDMS STANDARD Performed By: #### C SEAN ERICKSON, 1986-02 #### [facility] ([id number]) [address] [place] [address] #### [id number] #### [facility] ([id number]) [address] [place] [address] GFR/1.73 sq M.predicted among non-blacks MDRD (S/P/Bld) [Vol rate/Area] 75 mL/min/{1.73_m2} Normal >59 [facility] Comment on above: Result Comment: Reported eGFR is based on the CKD-EPI 2020 equation that does not use a race coefficient. Performed By: #### Chanel ERICKSON CMP, 1986-02 #### [facility] ([id number]) [address] [place] [address] #### [id number] #### [facility] ([id number]) [address] [place] [address] Glucose [Mass/Vol] 137 mg/dL High 65-99 [facility] Comment on above: Performed By: #### C SEAN ERICKSON, 1986-02 #### [facility] ([id number]) [address] [place] [address] #### [id number] #### [facility] ([id number]) [address], [address] [place] [address] Potassium [Moles/Vol] 3.8 mmol/L Normal 3.5-5.0 [facility] Comment on above: Performed By: #### Chanel ERICKSON CMP, 1986-02 #### [facility] [facility] ([id number]) [address] [place] [address] 26449 #### [id number] #### [facility] ([id number]) [address], [address] [place] [address] Protein [Mass/Vol] 7.9 g/dL Normal 6.0-8.0 [facility] Comment on above: Performed By: #### Chanel ERICKSON CMP, 1986-02 #### [facility] ([id number]) [address] [place] [address] 69157 #### 68725-4 #### [facility] ([id number]) [address], [address] [place] [address] Sodium [Moles/Vol] 140 mmol/L Normal 134-146 [facility] Comment on above: Performed By: #### Chanel ERICKSON CMP, 1986-02 #### [facility] ([id number]) [address] [place] [address] 55305 #### 55747-1 #### [facility] ([id number]) [address], [address] [place] [address] Urea nitrogen [Mass/Vol] 18 mg/dL Normal 5-27 [facility] Comment on above: Performed By: #### Chanel ERICKSON CMP, 1986-02 #### [facility] ([id number]) [address] [place] [address] 16863 #### 89440-9 #### [facility] ([id number]) [address] [place] [address] Glucose Glucometer (BldC) [M ass/Vol]on 12-24-2023 Glucose [Mass/Vol] 136 mg/dL High 65-99 [facility] Glucose [Mass/Vol] 123 mg/dL High 65-99 [facility] Glucose [Mass/Vol] 152 mg/dL High 65-99 [facility] MAGNESIUMon 12-24-2023 Magnesium [Mass/Vol] 2.2 mg/dL Normal 1.8-2.6 [facility] Comment on above: Performed By: #### Chanel ERICKSON [facility], 1988-02 #### [facility] ([id number]) [address] [place] [address] 71363 #### 78612-8 #### [facility] ([id number]) [address] [place] [address] POTASSIUMon 12-24-2023 Potassium [Moles/Vol] 4.0 mmol/L Normal 3.5-5.0 [facility] Comment on above: Performed By: #### Chanel ERICKSON CMP, 1986-02 #### [facility] ([id number]) [address] [place] [address] 78270 #### 20090-0 #### [facility] ([id number]) [address] [place] [address] PROTIME AND INRon 12-24-2023 INR Coag (PPP) [Relative time] 2.8 {INR} High 0.8-1.1 [facility] Comment on above: Performed By: #### Chanel ERICKSON CMP, 1986-02 #### [facility] ([id number]) [address] [place] [address] 82127 #### 67848-7 #### [facility] ([id number]) [address], [address] [place] [address] PT Coag (PPP) [Time] 30.9 s High 9.8-13.2 [facility] Comment on above: Result Comment: NEW REFERENCE RANGE Performed By: #### Chanel ERICKSON CMP, 1986-02 #### [facility] ([id number]) [address] [place] [address] 53945 #### 33184-2 #### [facility] ([id number]) [address], [address] [place] [address] Vancomycin trough [Mass/Vol] on 12-24-2023 VANCOMYCIN TROUGH 11.4 ug/mL Normal 5.0-20.0 [facility] Comment on above: Performed By: #### Chanel ERICKSON CMP, 1986-02 #### [facility] ([id number]) [address] [place] [address] 03264 #### 86608-3 #### [facility] ([id number]) [address] [place] [address] CBC AND AUTO DIFFon 12-23-19 24 ABSOLUTE BASOPHIL 0.1 X10E9/L Normal 0.0-0.2 [facility] Comment on above: Performed By: #### DELIA Buchanan BCA, CMP, 56951-1 ####[facility] ([id number])[address] [place] [address] ABSOLUTE NEUTROPHIL 10.1 X10E9/L High 1.5-6.6 [facility] Comment on above: Performed By: #### Chanel ERICKSON PINR, CMP, ####[facility] ([id number])[address] [place] [address] 15134 Basophils/100 WBC (Bld) 1.0 % Normal [facility] Comment on above: Performed By: #### Chanel ERICKSON, PINR, CMP, ####[facility] ([id number])[address] [place] [address] 24516 Eosinophils (Bld) [#/Vol] 0.8 10*3/uL High 0.0-0.4 [facility] Comment on above: Performed By: #### C BCA, PINR, CMP, ####[facility] ([id number])[address] [place] [address] 13556 Eosinophils/100 WBC (Bld) 5.8 % Normal [facility] Comment on above: Performed By: #### C DRE, PINR, CMP, ####[facility] ([id number])[address] [place] [address] 80736 Erythrocyte distribution width (RBC) [Ratio] 13.8 % Normal 11.5-15.0 [facility] Comment on above: Performed By: #### Chanel BCA, PINR, CMP, ####[facility] ([id number])[address] [place] [address] 61225 Hematocrit (Bld) [Volume fraction] 36.1 % Normal 35-47 [facility] Comment on above: Performed By: #### Chanel BCA, PINR, CMP, ####[facility] ([id number])[address] [place] [address] 04678 Hemoglobin (Bld) [Mass/Vol] 12.1 g/dL Normal 11.7-15.5 [facility] Comment on above: Performed By: #### Chanel BCA, PINR, CMP, ####[facility] ([id number])[address] [place] [address] 59839 Lymphocytes (Bld) [#/Vol] 2.4 10*3/uL Normal 1.0-3.5 [facility] Comment on above: Performed By: #### Chanel BCA, PINR, CMP, ####[facility] ([id number])[address] [place] [address] 13644 Lymphocytes/100 WBC (Bld) 16.6 % Normal [facility] Comment on above: Performed By: #### C BCA, PINR, CMP, ####[facility] ([id number])[address] [place] [address] 74964 MCH (RBC) [Entitic mass] 29.0 pg Normal 27-34 [facility] Comment on above: Performed By: #### C BCA, PINR, CMP, ####[facility] ([id number])[address] [place] [address] 25158 MCHC (RBC) [Mass/Vol] 33.6 g/dL Normal 32-36 [facility] Comment on above: Performed By: #### C BCA, PINR, CMP, ####[facility] ([id number])[address] [place] [address] 19183 MCV (RBC) [Entitic vol] 86 fL Normal 80-100 [facility] Comment on above: Performed By: #### C BCA, PINR, CMP, ####[facility] ([id number])[address] [place] [address] 89593 Monocytes (Bld) [#/Vol] 1.1 10*3/uL High 0-0.9 [facility] Comment on above: Performed By: #### C BCA, PINR, CMP, ####[facility] ([id number])[address] [place] [address] 17242 Monocytes/100 WBC (Bld) 7.3 % Normal [facility] Comment on above: Performed By: #### C BCA, PINR, CMP, ####[facility] ([id number])[address] [place] [address] 49191 Neutrophils/100 WBC (Bld) 69.3 % Normal [facility] Comment on above: Performed By: #### Chanel ERICKSON, PINR, CMP, ####[facility] ([id number])[address] [place] [address] 76652 Platelet mean volume (Bld) [Entitic vol] 8.5 fL Normal 7-12 [facility] Comment on above: Performed By: #### C DRE, PINR, CMP, ####[facility] ([id number])[address] [place] [address] 88592 Platelets (Bld) [#/Vol] 286 10*3/uL Normal 150-450 [facility] Comment on above: Performed By: #### Chanel ERICKSON, PINR, CMP, ####[facility] ([id number])[address] [place] [address] 35253 RBC COUNT 4.19 X10E12/L Normal 3.80-5.20 [facility] Comment on above: Performed By: #### C BCA, PINR, CMP, ####[facility] ([id number])[address] [place] [address] 68327 WBC (Bld) [#/Vol] 14.6 10*3/uL High 4.0-11.0 [facility] Comment on above: Performed By: #### Chanel BCA, PINR, CMP, ####[facility] ([id number])[address] [place] [address] 30012 COMPREHENSIVE METABOLIC PANE [place] 12-23-2023 Albumin [Mass/Vol] 3.1 g/dL Low 3.2-5.3 [facility] Comment on above: Performed By: #### Chanel ERICKSON, CMP, 1986-02 #### [facility] ([id number]) [address] [place] [address] 70413 #### 79050-8 #### [facility] ([id number]) [address], [address] [place] [address] ALP [Catalytic activity/Vol] 60 U/L Normal 39-130 [facility] Comment on above: Performed By: #### Chanel ERICKSON CMP, 1988-02 #### [facility] ([id number]) [address] [place] [address] 39188 #### 90368-4 #### [facility] ([id number]) [address] [place] [address] ALT [Catalytic activity/Vol] 12 U/L Normal 0-31 [facility] Comment on above: Performed By: #### Chanel ERICKSON CMP, 1988-02 #### [facility] ([id number]) [address] [place] [address] 00945 #### 56627-6 #### [facility] ([id number]) [address] [place] [address] Anion gap [Moles/Vol] 9 mmol/L Normal 5-15 [facility] Comment on above: Performed By: #### Chanel ERICKSON CMP, 1988-02 #### [facility] ([id number]) [address] [place] [address] 06279 #### 61820-0 #### [facility] ([id number]) [address], [address] [place] [address] AST [Catalytic activity/Vol] 14 U/L Normal 0-41 [facility] Comment on above: Performed By: #### Chanel BCA, CMP, 1988-02 #### [facility] ([id number]) [address] [place] [address] 57129 #### 24742-0 #### [facility] ([id number]) [address] [place] [address] Bilirubin [Mass/Vol] 0.6 mg/dL Normal 0.3-1.2 [facility] Comment on above: Performed By: #### C DRE CMP, 1988-02 #### [facility] ([id number]) [address] [place] [address] 77631 #### 92408-9 #### [facility] ([id number]) [address] [place] [address] Calcium [Mass/Vol] 8.5 mg/dL Normal 8.5-10.5 [facility] Comment on above: Performed By: #### C DRE [facility], 1988-02 #### [facility] ([id number]) [address] [place] [address] 35769 #### 59002-7 #### [facility] ([id number]) [address] [place] [address] Chloride [Moles/Vol] 99 mmol/L Normal 98-109 [facility] Comment on above: Performed By: #### Chanel ERICKSON CMP, 1988-02 #### [facility] ([id number]) [address] [place] [address] 34476 #### 70642-9 #### [facility] ([id number]) [address] [place] [address] CO2 [Moles/Vol] 28 mmol/L Normal 22-32 [facility] Comment on above: Performed By: #### C DRE CMP, 1988-02 #### [facility] ([id number]) [address] [place] [address] 00597 #### 71388-4 #### [facility] ([id number]) [address] [place] [address] Creatinine [Mass/Vol] 0.75 mg/dL Normal 0.40-1.00 [facility] Comment on above: Result Comment: METH OD TRACEABLE TO IDMS STANDARD Performed By: #### C SEAN ERICKSON, 1986-02 #### [facility] ([id number]) [address] [place] [address] 35650 #### 84049-4 #### [facility] ([id number]) [address] [place] [address] GFR/1.73 sq M.predicted among non-blacks MDRD (S/P/Bld) [Vol rate/Area] 85 mL/min/{1.73_m2} Normal >59 [facility] Comment on above: Result Comment: Reported eGFR is based on the CKD-EPI 2020 equation that does not use a race coefficient. Performed By: #### C DRE [facility], 1988-02 #### [facility] ([id number]) [address] [place] [address] 04175 #### 46203-9 #### [facility] ([id number]) [address], [address] [address] Glucose [Mass/Vol] 122 mg/dL High 65-99 [facility] Comment on above: Performed By: #### Chanel ERICKSON [facility], 1988-02 #### [facility] ([id number]) [address] [place] [address] 69984 #### 10322-0 #### [facility] ([id number]) [address] [facility] [address] [place] [address] Potassium [Moles/Vol] 3.5 mmol/L Normal 3.5-5.0 [facility] Comment on above: Performed By: #### Chanel ERICKSON CMP, 1988-02 #### [facility] ([id number]) [address] [place] [address] [place] [address] #### 00090-5 #### [facility] ([id number]) [address] [place] [address] Protein [Mass/Vol] 7.3 g/dL Normal 6.0-8.0 [facility] Comment on above: Performed By: #### Chanel ERICKSON CMP, 1988-02 #### [facility] ([id number]) [address] [place] [address] 62134 #### 93265-2 #### [facility] ([id number]) [address] [place] [address] Sodium [Moles/Vol] 136 mmol/L Normal 134-146 [facility] Comment on above: Performed By: #### Chanel REICKSON CMP, 1988-02 #### [facility] ([id number]) [address] [place] [address] 88877 #### 81638-7 #### [facility] ([id number]) [address] [place] [address] Urea nitrogen [Mass/Vol] 15 mg/dL Normal 5-27 [facility] Comment on above: Performed By: #### Chanel ERICKSON CMP, 1988-02 #### [facility] ([id number]) [address] [place] [address] 19215 #### 00695-0 #### [facility] ([id number]) [address] [place] [address] Glucose Glucometer (BldC) [M ass/Vol]on 12-23-2023 Glucose [Mass/Vol] 158 mg/dL High 65-99 [facility] Glucose [Mass/Vol] 141 mg/dL High 65-99 [facility] HGB A1C (GLYCO-HGB)on 2023 Glucose [Mass/Vol] 140 mg/dL Normal [facility] Comment on above: Performed By: #### Chanel ERICKSON [facility], 1988-02 #### [facility] ([id number]) [address] [place] [address] 35772 #### 23928-3 #### [facility] ([id number]) [address] [place] [address] HbA1c (Bld) [Mass fraction] 6.5 % High 4.4-5.6 [facility] Comment on above: Result Comment: NOTE ADA Guidelines Result HgbA1c Normal : less than 5.7 % Prediabetes : 5.7 % to 6.4 % Diabetes : > 6.4 % Use with caution in patients with abnormal hemoglobin variants as the half-life of red blood cells and in vivo glycation rates are affected. Performed By: #### C DRE [facility], 1988-02 #### [facility] ([id number]) [address] [place] [address] 20864 #### 86901-5 #### [facility] ([id number]) [address] [place] [address] MAGNESIUMon 12-23-2023 Magnesium [Mass/Vol] 2.0 mg/dL Normal 1.8-2.6 [facility] Comment on above: Performed By: #### Chanel ERICKSON [facility], 1988-02 #### [facility] ([id number]) [address] [place] [address] 57523 #### 81812-3 #### [facility] ([id number]) [address] [place] [address] POTASSIUMon 12-23-2023 Potassium [Moles/Vol] 4.4 mmol/L Normal 3.5-5.0 [facility] Comment on above: Performed By: #### Chanel ERICKSON CMP, 1988-02 #### [facility] ([id number]) [address] [place] [address] 82583 #### 04929-0 #### [facility] ([id number]) [address] [place] [address] PROTIME AND INRon 12-23-2023 INR Coag (PPP) [Relative time] 2.7 {INR} High 0.8-1.1 [facility] Comment on above: Performed By: #### C BCA, PINR, CMP, ####[facility] ([id number])[address] [place] [address] 048[address] PT Coag (PPP) [Time] 29.9 s High 9.8-13.2 [facility] Comment on above: Result Comment: NEW REFERENCE RANGE Performed By: #### C BCA, PINR, CMP, ####[facility] ([id number])[address] [place] [address] 63550 CBC AND AUTO DIFFon 12-22-19 24 ABSOLUTE BASOPHIL 0.2 X10E9/L Normal 0.0-0.2 [facility] Comment on above: Performed By: #### P INR, CMP, , CBCA ####[facility] ([id number])[address] [place] [address] 23396 ABSOLUTE NEUTROPHIL 10.5 X10E9/L High 1.5-6.6 [facility] Comment on above: Performed By: #### P INR, CMP, , CBCA ####[facility] ([id number])[address] [place] [address] 87999 Basophils/100 WBC (Bld) 1.0 % Normal [facility] Comment on above: Performed By: #### P INR, CMP, , CBCA ####[facility] ([id number])[address] [place] [address] 97940 Eosinophils (Bld) [#/Vol] 1.1 10*3/uL High 0.0-0.4 [facility] Comment on above: Performed By: #### P INR, CMP, , CBCA ####[facility] ([id number])[address] [place] [address] 84308 Eosinophils/100 WBC (Bld) 6.9 % Normal [facility] Comment on above: Performed By: #### P INR, CMP, , CBCA ####[facility] ([id number])[address] [place] [address] 87936 Erythrocyte distribution width (RBC) [Ratio] 13.7 % Normal 11.5-15.0 [facility] Comment on above: Performed By: #### P INR, CMP, , CBCA ####[facility] ([id number])[address] [place] [address] 70507 Hematocrit (Bld) [Volume fraction] 34.0 % Low 35-47 [facility] Comment on above: Performed By: #### P INR, CMP, , CBCA ####[facility] ([id number])[address] [place] [address] 67982 Hemoglobin (Bld) [Mass/Vol] 11.4 g/dL Low 11.7-15.5 [facility] Comment on above: Performed By: #### P INR, CMP, , CBCA ####[facility] ([id number])[address] [place] [address] 15727 Lymphocytes (Bld) [#/Vol] 3.5 10*3/uL Normal 1.0-3.5 [facility] Comment on above: Performed By: #### P INR, CMP, , CBCA ####[facility] ([id number])[address] [place] [address] 39077 Lymphocytes/100 WBC (Bld) 21.4 % Normal [facility] Comment on above: Performed By: #### P INR, CMP, , CBCA ####[facility] ([id number])[address] [place] [address] 60791 MCH (RBC) [Entitic mass] 29.1 pg Normal 27-34 [facility] Comment on above: Performed By: #### P INR, CMP, , CBCA ####[facility] ([id number])[address] [place] [address] 55380 MCHC (RBC) [Mass/Vol] 33.6 g/dL Normal 32-36 [facility] Comment on above: Performed By: #### P INR, CMP, , CBCA ####[facility] ([id number])[address] [place] [address] 11213 MCV (RBC) [Entitic vol] 87 fL Normal 80-100 [facility] Comment on above: Performed By: #### P INR, CMP, , CBCA ####[facility] ([id number])[address] [place] [address] 58193 Monocytes (Bld) [#/Vol] 0.9 10*3/uL Normal 0-0.9 [facility] Comment on above: Performed By: #### P INR, CMP, , CBCA ####[facility] ([id number])[address] [place] [address] 69112 Monocytes/100 WBC (Bld) 5.8 % Normal [facility] Comment on above: Performed By: #### P INR, CMP, , CBCA ####[facility] ([id number])[address], [place] [address] Neutrophils/100 WBC (Bld) 64.9 % Normal [facility] Comment on above: Performed By: #### P INR, CMP, , CBCA ####[facility] ([id number])[address] [place] [address] 98378 Platelet mean volume (Bld) [Entitic vol] 8.8 fL Normal 7-12 [facility] Comment on above: Performed By: #### P INR, CMP, , CBCA ####[facility] ([id number])[address] [place] [address] 47881 Platelets (Bld) [#/Vol] 258 10*3/uL Normal 150-450 [facility] Comment on above: Performed By: #### P INR, CMP, , CBCA ####[facility] ([id number])[address] [place] [address] 47847 RBC COUNT 3.92 X10E12/L Normal 3.80-5.20 [facility] Comment on above: Performed By: #### P INR, CMP, , CBCA ####[facility] ([id number])[address] [place] [address] 73640 WBC (Bld) [#/Vol] 16.2 10*3/uL High 4.0-11.0 [facility] Comment on above: Performed By: #### P INR, CMP, , CBCA ####[facility] ([id number])[address] [place] [address]8883 COMPREHENSIVE METABOLIC PANE [place] 12-22-2023 Albumin [Mass/Vol] 3.4 g/dL Normal 3.2-5.3 [facility] Comment on above: Performed By: #### P INR, CMP, , CBCA ####[facility] ([id number])[address], [place] [address] ALP [Catalytic activity/Vol] 59 U/L Normal 39-130 [facility] Comment on above: Performed By: #### P INR, CMP, , CBCA ####[facility] ([id number])[address] [place] [address] [id number] ALT [Catalytic activity/Vol] 11 U/L Normal 0-31 [facility] Comment on above: Performed By: #### P INR, CMP, , CBCA ####[facility] ([id number])[address] [place] [address] 73824 Anion gap [Moles/Vol] 11 mmol/L Normal 5-15 [facility] Comment on above: Performed By: #### P INR, CMP, , CBCA ####[facility] ([id number])[address] [place] [address] 05508 AST [Catalytic activity/Vol] 14 U/L Normal 0-41 [facility] Comment on above: Performed By: #### P INR, CMP, , CBCA ####[facility] ([id number])[address] [place] [address] 04343 Bilirubin [Mass/Vol] 0.8 mg/dL Normal 0.3-1.2 [facility] Comment on above: Performed By: #### P INR, CMP, , CBCA ####[facility] ([id number])[address] [place] [address] [place] [address] Calcium [Mass/Vol] 8.5 mg/dL Normal 8.5-10.5 [facility] Comment on above: Performed By: #### P INR, CMP, , CBCA ####[facility] ([id number])[address] [place] [address] 95331 Chloride [Moles/Vol] 98 mmol/L Normal 98-109 [facility] Comment on above: Performed By: #### P INR, CMP, , CBCA ####[facility] ([id number])[address] [place] [address] 19080 CO2 [Moles/Vol] 26 mmol/L Normal 22-32 [facility] Comment on above: Performed By: #### P INR, CMP, , CBCA ####[facility] ([id number])[address] [place] [address] 04197 Creatinine [Mass/Vol] 0.78 mg/dL Normal 0.40-1.00 [facility] Comment on above: Result Comment: METH OD TRACEABLE TO IDMS STANDARD Performed By: #### P INR, CMP, , CBCA ####[facility] ([id number])[address] [place] [address] 65007 GFR/1.73 sq M.predicted among non-blacks MDRD (S/P/Bld) [Vol rate/Area] 81 mL/min/{1.73_m2} Normal >59 [facility] Comment on above: Result Comment: Reported eGFR is based on the CKD-EPI 2020 equation that does not use a race coefficient. Performed By: #### P INR, CMP, , CBCA ####[facility] ([id number])[address] [place] [address] 84759 Glucose [Mass/Vol] 121 mg/dL High 65-99 [facility] Comment on above: Performed By: #### P INR, CMP, , CBCA ####[facility] ([id number])[address] [place] [address] 16668 Potassium [Moles/Vol] 3.5 mmol/L Normal 3.5-5.0 [facility] Comment on above: Performed By: #### P INR, CMP, , CBCA ####[facility] ([id number])[address] [place] [address] 83136 Protein [Mass/Vol] 7.2 g/dL Normal 6.0-8.0 [facility] Comment on above: Performed By: #### P INR, CMP, , CBCA ####[facility] ([id number])[address] [place] [address] 78539 Sodium [Moles/Vol] 135 mmol/L Normal 134-146 [facility] Comment on above: Performed By: #### P INR, CMP, , CBCA ####[facility] ([id number])[address] [place] [address] 27624 Urea nitrogen [Mass/Vol] 15 mg/dL Normal 5-27 [facility] Comment on above: Performed By: #### P INR, CMP, , CBCA ####[facility] ([id number])[address] [place] [address] 21455 Glucose Glucometer (BldC) [M ass/Vol]on 12-22-2023 Glucose [Mass/Vol] 147 mg/dL High 65-99 [facility] Glucose [Mass/Vol] 136 mg/dL High 65-99 [facility] Glucose [Mass/Vol] 120 mg/dL High 65-99 [facility] MAGNESIUMon 12-22-2023 Magnesium [Mass/Vol] 2.0 mg/dL Normal 1.8-2.6 [facility] Comment on above: Performed By: #### P INR, CMP, , CBCA ####[facility] ([id number])[address] [place] [address] 72574 PROTIME AND INRon 12-22-2023 INR Coag (PPP) [Relative time] 2.6 {INR} High 0.8-1.1 [facility] Comment on above: Performed By: #### P INR, CMP, , CBCA ####[facility] ([id number])[address] [place] [address] 95969 PT Coag (PPP) [Time] 29.0 s High 9.8-13.2 [facility] Comment on above: Result Comment: NEW REFERENCE RANGE Performed By: #### P INR, [facility], , CBCA ####[facility] ([id number])[address] [place] [address] 27225 Vancomycin trough [Mass/Vol] on 12-22-2023 VANCOMYCIN TROUGH 15.2 ug/mL Normal 5.0-20.0 [facility] Comment on above: Performed By: #### 4 092-3 ####[facility] ([id number])[address] [place] [address] 66308 CBC AND AUTO DIFFon 12-21-19 ABSOLUTE BASOPHIL 0.1 X10E9/L Normal 0.0-0.2 [facility] Comment on above: Performed By: #### C BCA [facility], #### [facility] ([id number]) [address] [place] [address] 32626 ABSOLUTE NEUTROPHIL 11.5 X10E9/L High 1.5-6.6 [facility] Comment on above: Performed By: #### C BCA [facility], #### [facility] ([id number]) [address] [place] [address] 93747 Basophils/100 WBC (Bld) 0.8 % Normal [facility] Comment on above: Performed By: #### C BCA [facility], #### [facility] ([id number]) [address] [place] [address] 50241 Eosinophils (Bld) [#/Vol] 0.3 10*3/uL Normal 0.0-0.4 [facility] Comment on above: Performed By: #### C BCA, CMP, #### [facility] ([id number]) [address] [place] [address] 27373 Eosinophils/100 WBC (Bld) 2.2 % Normal [facility] Comment on above: Performed By: #### C DRE [facility], #### [facility] ([id number]) [address] [place] [address] 19916 Erythrocyte distribution width (RBC) [Ratio] 14.0 % Normal 11.5-15.0 [facility] Comment on above: Performed By: #### Chanel ERICKSON [facility], #### [facility] ([id number]) [address] [place] [address] 86758 Hematocrit (Bld) [Volume fraction] 34.8 % Low 35-47 [facility] Comment on above: Performed By: #### Chanel ERICKSON [facility], #### [facility] ([id number]) [address] [place] [address] 01375 Hemoglobin (Bld) [Mass/Vol] 11.4 g/dL Low 11.7-15.5 [facility] Comment on above: Performed By: #### Chanel ERICKSON CMP, #### [facility] ([id number]) [address] [place] [address] 16867 Lymphocytes (Bld) [#/Vol] 2.0 10*3/uL Normal 1.0-3.5 [facility] Comment on above: Performed By: #### Chanel ERICKSON CMP, #### [facility] ([id number]) [address] [place] [address] 27814 Lymphocytes/100 WBC (Bld) 13.2 % Normal [facility] Comment on above: Performed By: #### Chanel ERICKSON CMP, #### [facility] ([id number]) [address] [place] [address] 68540 MCH (RBC) [Entitic mass] 28.5 pg Normal 27-34 [facility] Comment on above: Performed By: #### Chanel ERICKSON CMP, #### [facility] ([id number]) [address] [place] [address] 33015 MCHC (RBC) [Mass/Vol] 32.6 g/dL Normal 32-36 [facility] Comment on above: Performed By: #### Chanel ERICKSON CMP, #### [facility] ([id number]) [address] [place] [address] 23271 MCV (RBC) [Entitic vol] 87 fL Normal 80-100 [facility] Comment on above: Performed By: #### Chanel ERICKSON CMP, #### [facility] ([id number]) [address] [place] [address] 60933 Monocytes (Bld) [#/Vol] 1.3 10*3/uL High 0-0.9 [facility] Comment on above: Performed By: #### Chanel ERICKSON [facility], #### [facility] ([id number]) [address] [place] [address] 28638 Monocytes/100 WBC (Bld) 8.7 % Normal [facility] Comment on above: Performed By: #### Chanel ERICKSON CMP, 29543-7 #### [facility] ([id number]) [address] [place] [address] 95229 Neutrophils/100 WBC (Bld) 75.1 % Normal [facility] Comment on above: Performed By: #### Chanel ERICKSON CMP, 04153-2 #### [facility] ([id number]) [address] [place] [address] 01387 Platelet mean volume (Bld) [Entitic vol] 8.8 fL Normal 7-12 [facility] Comment on above: Performed By: #### C BCA, CMP, 57609-9 #### [facility] ([id number]) [address] [place] [address] 39880 Platelets (Bld) [#/Vol] 257 10*3/uL Normal 150-450 [facility] Comment on above: Performed By: #### C BCA, CMP, 94665-7 #### [facility] ([id number]) [address] [place] [address] 38026 RBC COUNT 3.98 X10E12/L Normal 3.80-5.20 [facility] Comment on above: Performed By: #### C BCA, CMP, 63406-1 #### [facility] ([id number]) [address] [place] [address] 94846 WBC (Bld) [#/Vol] 15.3 10*3/uL High 4.0-11.0 [facility] Comment on above: Performed By: #### C BCA, CMP, 08438-6 #### [facility] ([id number]) [address] [place] [address] 78460 COMPREHENSIVE METABOLIC PANE [place] 12-21-2023 Albumin [Mass/Vol] 3.3 g/dL Normal 3.2-5.3 [facility] Comment on above: Performed By: #### C BCA, CMP, 72844-5 ####[facility] ([id number])[address] [place] [address] 88161 ALP [Catalytic activity/Vol] 59 U/L Normal 39-130 [facility] Comment on above: Performed By: #### C BCA, CMP, 70589-1 ####[facility] ([id number])[address] [place] [address] 11235 ALT [Catalytic activity/Vol] 13 U/L Normal 0-31 [facility] Comment on above: Performed By: #### C BCA, CMP, ####[facility] ([id number])[address] [place] [address] [place] [address] Anion gap [Moles/Vol] 11 mmol/L Normal 5-15 [facility] Comment on above: Performed By: #### C BCA, CMP, ####[facility] ([id number])[address] [place] [address] [place] [address] AST [Catalytic activity/Vol] 11 U/L Normal 0-41 [facility] Comment on above: Performed By: #### C BCA, CMP, ####[facility] ([id number])[address] [place] [address] 09018 Bilirubin [Mass/Vol] 1.0 mg/dL Normal 0.3-1.2 [facility] Comment on above: Performed By: #### C BCA, CMP, ####[facility] ([id number])[address] [place] [address] [place] [address] Calcium [Mass/Vol] 8.5 mg/dL Normal 8.5-10.5 [facility] Comment on above: Performed By: #### C BCA, CMP, ####[facility] ([id number])[address] [place] [address] [place] [address] Chloride [Moles/Vol] 101 mmol/L Normal 98-109 [facility] Comment on above: Performed By: #### C BCA, CMP, ####[facility] ([id number])[address] [place] [address] 39243 CO2 [Moles/Vol] 25 mmol/L Normal 22-32 [facility] Comment on above: Performed By: #### C BCA, CMP, ####[facility] ([id number])[address] [place] [address] [place] [address] Creatinine [Mass/Vol] 0.66 mg/dL Normal 0.40-1.00 [facility] Comment on above: Result Comment: METH OD TRACEABLE TO IDMS STANDARD Performed By: #### C SEAN ERICKSON, ####[facility] ([id number])[address] [place] [address] 64469 eGFR (CKD-EPI) NON-RACE DEPENDENT >90 Normal >59 [facility] Comment on above: Result Comment: Reported eGFR is based on the CKD-EPI 2020 equation that does not use a race coefficient. Performed By: #### C SEAN ERICKSON, ####[facility] ([id number])[address] [place] [address] 26739 Glucose [Mass/Vol] 132 mg/dL High 65-99 [facility] Comment on above: Performed By: #### C DRE [facility], ####[facility] ([id number])[address] [place] [address] 77069 Potassium [Moles/Vol] 3.5 mmol/L Normal 3.5-5.0 [facility] Comment on above: Performed By: #### C DRE [facility], ####[facility] ([id number])[address] [place] [address] 82249 Protein [Mass/Vol] 7.0 g/dL Normal 6.0-8.0 [facility] Comment on above: Performed By: #### C DRE [facility], ####[facility] ([id number])[address] [place] [address] 95210 Sodium [Moles/Vol] 137 mmol/L Normal 134-146 [facility] Comment on above: Performed By: #### C SEAN ERICKSON, ####[facility] ([id number])[address] [place] [address] [place] [address] Urea nitrogen [Mass/Vol] 15 mg/dL Normal 5-27 [facility] Comment on above: Performed By: #### C DRE [facility], 88799-9 ####[facility] ([id number])[address] [place] [address] Glucose Glucometer (BldC) [M ass/Vol]on 12-21-2023 Glucose [Mass/Vol] 130 mg/dL High 65-99 [facility] Glucose [Mass/Vol] 153 mg/dL High 65-99 [facility] Glucose [Mass/Vol] 206 mg/dL High 65-99 [facility] MAGNESIUMon 12-21-2023 Magnesium [Mass/Vol] 2.2 mg/dL Normal 1.8-2.6 [facility] Comment on above: Performed By: #### C DRE [facility], 31138-2 ####[facility] ([id number])[address] [place] [address] 57158 MR FOOT LT W WO CONTon 12-20 MR FOOT LT W WO CONT MR FOOT LT W WO CONT MRI left foot with and without contrast HISTORY: Infection, osteomyelitis. COMPARISON: Radiograph 12/20/2023 TECHNIQUE: Multiplanar, multisequence MR imaging was performed with and without contrast according to with and without contrast protocol. 20 mL Prohance administered intravenously without complication. FINDINGS: There is skin irregularity along the third ray distal soft tissues along the plantar aspect suggesting soft tissues ulceration. Please correlate with physical exam. Findings of cellulitis without drainable abscess. Destructive changes along the middle and distal phalanges of the third ray with bone marrow replacing signal suggesting osteomyelitis and septic arthritis however no significant joint fluid noted at this time. No convincing involvement of the third ray proximal phalanx. Otherwise scattered arthritis, no significant joint or into metatarsal bursal fluid. Fatty atrophy and infiltration of the foot musculature. IMPRESSION: 1. Soft tissue ulceration third toe soft tissues with findings of osteomyelitis of the middle and distal phalanges of the third ray. No drainable soft tissue abscess Finalized by Francisco J Garcia MD on 12/21/2023 1:06 PM Normal [facility] POTASSIUMon 12-21-2023 Potassium [Moles/Vol] 3.8 mmol/L Normal 3.5-5.0 [facility] Comment on above: Performed By: #### 2 823-3 ####[facility] ([id number])[address] [place] [address] 65338 PROTIME AND INRon 12-21-2023 INR Coag (PPP) [Relative time] 2.4 {INR} High 0.8-1.1 [facility] Comment on above: Performed By: #### P INR ####[facility] ([id number])[address] [place] [address] 25247 PT Coag (PPP) [Time] 27.0 s High 9.8-13.2 [facility] Comment on above: Result Comment: NEW REFERENCE RANGE Performed By: #### P INR ####[facility] ([id number])[address] [place] [address] 70261 BLOOD CULTUREon 12-20-2023 Bacteria identified Aer cx Nom (Bld) SPECIMEN NOTES RSURFACE VEIN CULTURE RESULTS NO GROWTH 5 DAYS Normal [facility] Comment on above: Performed By: #### 1 7928-3 ####[facility] ([id number])[address] [place] [address] 29402 Bacteria identified Aer cx Nom (Bld) SPECIMEN NOTES SUBOPTIMAL VOLUME OF BLOOD COLLECTED, RESULTS MAY BE AFFECTED. CULTURE RESULTS NO GROWTH 5 DAYS Normal [facility] Comment on above: Performed By: #### 1 7928-3 ####[facility] ([id number])[address] [address] CBC AND AUTO DIFFon 12-20-19 24 ABSOLUTE BASOPHIL 0.1 X10E9/L Normal 0.0-0.2 [facility] Comment on above: Performed By: #### C BCA, CMP, 1988-02 #### [facility] ([id number]) [address] [place] [address] 92219 #### 43427-3 #### [facility] ([id number]) [address], [address] [place] [address] ABSOLUTE NEUTROPHIL 12.0 X10E9/L High 1.5-6.6 [facility] Comment on above: Performed By: #### Chanel ERICKSON CMP, 1988-02 #### [facility] ([id number]) [address] [place] [address] 32153 #### 40999-2 #### [facility] ([id number]) [address] [place] [address], [address] [place] [address] Basophils/100 WBC (Bld) 0.5 % Normal [facility] Comment on above: Performed By: #### Chanel ERICKSON CMP, 1988-02 #### [facility] ([id number]) [address] [place] [address] 91334 #### 29022-8 #### [facility] ([id number]) [address] [place] [address], [address] [place] [address] Eosinophils (Bld) [#/Vol] 0.3 10*3/uL Normal 0.0-0.4 [facility] Comment on above: Performed By: #### Chanel ERICKSON CMP, 1988-02 #### [facility] ([id number]) [address] [place] [address] 32790 #### 31373-9 #### [facility] ([id number]) [address] [place] [address], [address] [place] [address] Eosinophils/100 WBC (Bld) 2.0 % Normal [facility] Comment on above: Performed By: #### Chanel ERICKSON CMP, 1988-02 #### [facility] ([id number]) [address] [place] [address] 89956 #### 04200-0 #### [facility] ([id number]) [address], [address] [place] [address] Erythrocyte distribution width (RBC) [Ratio] 14.0 % Normal 11.5-15.0 [facility] Comment on above: Performed By: #### Chanel ERICKSON CMP, 1988-02 #### [facility] ([id number]) [address] [place] [address] 92032 #### 54165-9 #### [facility] ([id number]) [address], [address] [place] [address] Hematocrit (Bld) [Volume fraction] 36.1 % Normal 35-47 [facility] Comment on above: Performed By: #### Chanel ERICKSON CMP, 1988-02 #### [facility] ([id number]) [address] [place] [address] 68345 #### 45619-6 #### [facility] ([id number]) [address], [address] [place] [address] Hemoglobin (Bld) [Mass/Vol] 12.1 g/dL Normal 11.7-15.5 [facility] Comment on above: Performed By: #### Chanel ERICKSON CMP, 1988-02 #### [facility] ([id number]) [address] [place] [address] 04122 #### 44150-3 #### [facility] ([id number]) [address], [address] [place] [address] Lymphocytes (Bld) [#/Vol] 2.4 10*3/uL Normal 1.0-3.5 [facility] Comment on above: Performed By: #### Chanel ERICKSON CMP, 1988-02 #### [facility] ([id number]) [address] [place] [address] 26882 #### 20322-3 #### [facility] ([id number]) [address], [address] [place] [address] Lymphocytes/100 WBC (Bld) 14.9 % Normal [facility] Comment on above: Performed By: #### Chanel ERICKSON CMP, 1988-02 #### [facility] ([id number]) [address] [place] [address] 95338 #### 58173-7 #### [facility] ([id number]) [address], [address] [place] [address] MCH (RBC) [Entitic mass] 28.9 pg Normal 27-34 [facility] Comment on above: Performed By: #### Chanel ERICKSON CMP, 1988-02 #### [facility] ([id number]) [address] [place] [address] 52800 #### 50314-2 #### [facility] ([id number]) [address], [address] [place] [address] MCHC (RBC) [Mass/Vol] 33.5 g/dL Normal 32-36 [facility] Comment on above: Performed By: #### Chanel ERICKSON CMP, 1988-02 #### [facility] ([id number]) [address] [place] [address] 05394 #### 13346-2 #### [facility] ([id number]) [address], [address] [place] [address] MCV (RBC) [Entitic vol] 86 fL Normal 80-100 [facility] Comment on above: Performed By: #### Chanel ERICKSON CMP, 1988-02 #### [facility] ([id number]) [address] [place] [address] 89430 #### 08333-5 #### [facility] ([id number]) [address], [address] [place] [address] Monocytes (Bld) [#/Vol] 1.5 10*3/uL High 0-0.9 [facility] Comment on above: Performed By: #### Chanel ERICKSON CMP, 1988-02 #### [facility] ([id number]) [address] [place] [address] 43796 #### 13406-3 #### [facility] ([id number]) [address] [place] [address] Monocytes/100 WBC (Bld) 9.3 % Normal [facility] Comment on above: Performed By: #### Chanel ERICKSON CMP, 1988-02 #### [facility] ([id number]) [address] [place] [address] 91586 #### 27645-9 #### [facility] ([id number]) [address], [address] [place] [address] Neutrophils/100 WBC (Bld) 73.3 % Normal [facility] Comment on above: Performed By: #### Chanel ERICKSON [facility], 1988-02 #### [facility] ([id number]) [address] [place] [address] 71289 #### 69181-5 #### [facility] ([id number]) [address], [address] [place] [address] Platelet mean volume (Bld) [Entitic vol] 8.4 fL Normal 7-12 [facility] Comment on above: Performed By: #### Chanel ERICKSON CMP, 1988-02 #### [facility] ([id number]) [address] [place] [address] 85678 #### 05387-3 #### [facility] ([id number]) [address], [address] [place] [address] Platelets (Bld) [#/Vol] 282 10*3/uL Normal 150-450 [facility] Comment on above: Performed By: #### Chanel ERICKSON CMP, 1988-02 #### [facility] ([id number]) [address] [place] [address] 09490 #### 84516-4 #### [facility] ([id number]) [address] [place] [address] RBC COUNT 4.18 X10E12/L Normal 3.80-5.20 [facility] Comment on above: Performed By: #### Chanel ERICKSON CMP, 1986-02 #### [facility] ([id number]) [address] [place] [address] #### [id number] #### [facility] ([id number]) [address], [address] [place] [address] WBC (Bld) [#/Vol] 16.4 10*3/uL High 4.0-11.0 [facility] Comment on above: Performed By: #### Chanel ERICKSON CMP, 1986-02 #### [facility] ([id number]) [address] [place] [address] #### [id number] #### [facility] ([id number]) [facility], [address] [place] [address] COMPREHENSIVE METABOLIC PANE [place] 12-20-2023 Albumin [Mass/Vol] 3.7 g/dL Normal 3.2-5.3 [facility] Comment on above: Performed By: #### Chanel ERICKSON CMP, 1986-02 #### [facility] ([id number]) [address] [place] [address] #### [id number] #### [facility] ([id number]) [address] [place] [address] ALP [Catalytic activity/Vol] 74 U/L Normal 39-130 [facility] Comment on above: Performed By: #### Chanel ERICKSON, CMP, 1988-02 #### [facility] [facility] ([id number]) [address] [place] [address] 30651 #### [id number] #### [facility] ([id number]) [address], [address] [place] [address] ALT [Catalytic activity/Vol] 15 U/L Normal 0-31 [facility] Comment on above: Performed By: #### Chanel ERICKSON, [facility], 1988-02 #### [facility] ([id number]) [address] [place] [address] 55314 #### [id number] #### [facility] ([id number]) [address], [address] [place] [address] Anion gap [Moles/Vol] 6 mmol/L Normal 5-15 [facility] Comment on above: Performed By: #### Chanel ERICKSON, [facility], 1988-02 #### [facility] ([id number]) [address] [place] [address] 39902 #### [id number] #### [facility] ([id number]) [address], [address] [place] [address] AST [Catalytic activity/Vol] 17 U/L Normal 0-41 [facility] Comment on above: Performed By: #### C BCA, CMP, 1988-02 #### [facility] ([id number]) [address] [place] [address] 19554 #### 66103-7 #### [facility] ([id number]) [address], [address] [place] [address] Bilirubin [Mass/Vol] 0.4 mg/dL Normal 0.3-1.2 [facility] Comment on above: Performed By: #### C DRE, [facility], 1988-02 #### [facility] ([id number]) [address] [place] [address] 76081 #### [id number] #### [facility] ([id number]) [address], [address] [place] [address] Calcium [Mass/Vol] 8.3 mg/dL Low 8.5-10.5 [facility] Comment on above: Performed By: #### C BCA, [facility], 1988-02 #### [facility] ([id number]) [address] [place] [address] 06078 #### [id number] #### [facility] ([id number]) [address], [address] [place] [address] Chloride [Moles/Vol] 101 mmol/L Normal 98-109 [facility] Comment on above: Performed By: #### Chanel ERICKSON [facility], 1988-02 #### [facility] ([id number]) [address] [place] [address] 94253 #### [id number] #### [facility] ([id number]) [address], [address] [place] [address] CO2 [Moles/Vol] 26 mmol/L Normal 22-32 [facility] Comment on above: Performed By: #### Chanel BCA, CMP, 1988-02 #### [facility] ([id number]) [address] [place] [address] 77587 #### [id number] #### [facility] ([id number]) [address], [address] [place] [address] Creatinine [Mass/Vol] 0.69 mg/dL Normal 0.40-1.00 [facility] Comment on above: Result Comment: METH OD TRACEABLE TO IDMS STANDARD Performed By: #### Chanel BCA, CMP, 1988-02 #### [facility] ([id number]) [address] [place] [address] 27046 #### [id number] #### [facility] ([id number]) [address], [address] [place] [address] eGFR (CKD-EPI) NON-RACE DEPENDENT >90 Normal >59 [facility] Comment on above: Result Comment: Reported eGFR is based on the CKD-EPI 2020 equation that does not use a race coefficient. Performed By: #### C DRE [facility], 1988-02 #### [facility] ([id number]) [address] [place] [address] 82217 #### [id number] #### [facility] ([id number]) [address], [address] [place] [address] Glucose [Mass/Vol] 132 mg/dL High 65-99 [facility] Comment on above: Performed By: #### C DRE [facility], 1988-02 #### [facility] ([id number]) [address] [place] [address] 16358 #### 02991-3 #### [facility] ([id number]) [address], [address] [place] [address] Potassium [Moles/Vol] 3.8 mmol/L Normal 3.5-5.0 [facility] Comment on above: Performed By: #### C DRE [facility], 1988-02 #### [facility] ([id number]) [address] [place] [address] 07507 #### [id number] #### [facility] ([id number]) [address], [address] [place] [address] Protein [Mass/Vol] 7.9 g/dL Normal 6.0-8.0 [facility] Comment on above: Performed By: #### C DRE [facility], 1988-02 #### [facility] ([id number]) [address] [place] [address] 20299 #### [id number] #### [facility] ([id number]) [address] [facility], [address] [place] [address] Sodium [Moles/Vol] 133 mmol/L Low 134-146 [facility] Comment on above: Performed By: #### Chanel ERICKSON CMP, 1988-02 #### [facility] ([id number]) [address] [place] [address] 00220 #### 05066-2 #### [facility] ([id number]) [address] [facility] [facility] [address], [address] [place] [address] Urea nitrogen [Mass/Vol] 16 mg/dL Normal 5-27 [facility] Comment on above: Performed By: #### Chanel ERICKSON [facility], 1988-02 #### [facility] ([id number]) [address] [place] [address] 97877 #### 51895-9 #### [facility] ([id number]) [address] [facility], [address] [place] [address] CRP [Mass/Vol]on 12-20-2023 C REACTIVE PROTEIN 11.8 mg/dL High 0.000-0.744 [facility] Comment on above: Performed By: #### Chanel ERICKSON CMP, 1988-02 #### [facility] ([id number]) [address] [place] [address] 27608 #### 25796-0 #### [facility] ([id number]) [address] [facility], [address] [place] [address] ESR Photometric method (Bld) [Velocity]on 12-20-2023 ESR, ERYTHROCYTE SEDIMENTATION RATE 60 mm/h High 0-30 [facility] Comment on above: Performed By: #### C BCA, CMP, 1988-02 #### [facility] ([id number]) [address] [place] [address] 79676 #### 89582-7 #### [facility] ([id number]) [address] [place] [address], [address] [place] [address] Glucose Glucometer (BldC) [M ass/Vol]on 12-20-2023 Glucose [Mass/Vol] 174 mg/dL High 65-99 [facility] URINALYSISon 12-20-2023 Bilirubin Ql (U) Negative Normal NEG [facility] Comment on above: Performed By: #### U A #### [facility] ([id number]) [address] [place] [address] BLOOD/HGB Negative Normal NEG [facility] Comment on above: Performed By: #### U A #### [facility] ([id number]) [address] [place] [address] 24083 Color (U) YELLOW Normal YELLOW [facility] Comment on above: Performed By: #### U A #### [facility] ([id number]) [address] [place] [address]34 Glucose Ql (U) Negative Normal NEG [facility] Comment on above: Performed By: #### U A #### [facility] ([id number]) [address] [place] [address] Ketones Ql (U) Negative Normal NEG [facility] Comment on above: Performed By: #### U A #### [facility] ([id number]) [address] [place] [address]331 Leukocyte esterase Test strip Ql (U) Negative Normal NEG [facility] Comment on above: Performed By: #### U A #### [facility] ([id number]) [address] [place] [address] 41009 Nitrite Ql (U) Positive Abnormal NEG [facility] Comment on above: Performed By: #### U A #### [facility] ([id number]) [address] [place] [address] 07026 pH (U) 6.0 [pH] Normal 5.0-8.5 [facility] Comment on above: Performed By: #### U A #### [facility] ([id number]) [address] [place] [address] 45846 Protein Ql (U) Negative Normal NEG [facility] Comment on above: Performed By: #### U A #### [facility] ([id number]) [address] [place] [address] 29867 R.B.CELLS 0 /hpf Normal 0-5 [facility] Comment on above: Performed By: #### U A #### [facility] ([id number]) [address] [place] [address] 61487 Specific gravity (U) [Rel density] 1.015 Normal 1.003-1.035 [facility] Comment on above: Performed By: #### U A #### [facility] ([id number]) [address] [place] [address] 29504 SQUAMOUS EPITHELIUM 0 to 3 Normal 0-5 [facility] Comment on above: Performed By: #### U A #### [facility] ([id number]) [address] [place] [address] [place] [address] TURBIDITY CLEAR Normal CLEAR [facility] Comment on above: Performed By: #### U A #### [facility] ([id number]) [address] [place] [address] 55270 Urobilinogen Qn (U) 0.2 {Mindy'U}/dL Normal <1.1 [facility] Comment on above: Performed By: #### U A #### [facility] ([id number]) [address] [place] [address] W.B.CELLS 0 to 1 Normal 0-5 [facility] Comment on above: Performed By: #### U A #### [facility] ([id number]) [address] [place] [address] XR FOOT LT MIN 3 VWSon XR FOOT LT MIN 3 VWS XR FOOT LT MIN 3 VWS XR FOOT LT MIN 3 VWS 12/20/2023 6:17 PM INDICATION: Left foot pain after fall COMPARISON: None TECHNIQUE: 3 views of the left foot FINDINGS: No acute fracture or dislocation is identified. Moderate soft tissue swelling, particularly of the third digit. Erosive changes of the third middle and distal phalanx. Degenerative changes of the midfoot. Tarsal bones maintain normal anatomical alignment. Calcaneal spurring. Osteopenia. IMPRESSION: * No acute fracture or dislocation. * Moderate soft tissue swelling, particularly of the third digit. * Erosive changes of the third middle and distal phalanx with involvement of the distal interphalangeal joint. Approved by Resident Jeanette Gooden MD on 12/20/2023 6:20 PM Mehul Umanzor MD have personally reviewed the image(s) and agree with and/or edited the report Finalized by Mehul Bradshaw MD on 12/20/2023 6:37 PM Normal [facility] XR FOOT RT MIN 3 VWSon XR FOOT RT MIN 3 VWS XR FOOT RT MIN 3 VWS XR FOOT RT MIN 3 VWS 12/20/2023 5:03 PM INDICATION: Right foot pain after fall COMPARISON: None TECHNIQUE: 3 views of the right foot obtained FINDINGS: Possible small nondisplaced fracture at the base of the third metatarsal. Joint spaces are maintained. Degenerative changes of the midfoot and interphalangeal joints. Calcaneal spurring. Os peroneum. IMPRESSION: Possible small nondisplaced fracture versus superimposition of shadows at base of the third metatarsal. Please correlate for point tenderness Approved by Resident Jeanette Gooden MD on 12/20/2023 5:05 PM Mehul Umanzor MD have personally reviewed the image(s) and agree with and/or edited the report Finalized by Mehul Bradshaw MD on 12/20/2023 5:56 PM [facility] XR KNEE RT 3 VWSon 4 XR KNEE RT 3 VWS XR KNEE RT 3 VWS XR KNEE RT 3 VWS CLINICAL INFORMATION: Right knee pain. Fall. Pain. COMPARISON: None. IMPRESSION: * No evidence of acute fracture. 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 No large joint effusion. Osteopenia. Finalized by Andreas Araujo MD on 12/20/2023 5:05 PM [facility] 36on 11-16-2023 36 Please let her know her cholesterol levels look good. Continue pravastatin. Thanks [facility] Telephoneon 11-16-2023 Telephone [id number] Maximo Gill 1950 F Date Provider Department Center 11/16/2023 EBER PAGAN Family History Problem Relation Age of Onset Heart attack Father Diabetes Father Hypertension Father Coronary artery disease Father Rheum arthritis Father Family Status - Relation Status Age at Father [facility] 37on 11-01-2023 37 *Increase amlodipine to 10mg daily. You can take 2 tablets of your current 5mg prescription daily until this runs out then start new prescription of 1 - 10mg tablet daily. *Monitor your blood pressure daily 1-2 hours after medications *Have labs drawn *Follow-up with GI given dark stools [facility] Office Visiton 11-01-2023 Follow-up visit [id number] Maximo Gill 1950 Date Provider Department Center 11/01/2023 EBER PAGAN Family History Problem Relation Age of Onset Heart attack Father Diabetes Father Hypertension Father Coronary artery disease Father Rheum arthritis Father Family Status - Relation Status Age at Father Level of Service:72125 [place] OFFICE/OUTPATIENT ESTABLISHED MOD MDM 30 MIN Reason for Visit and Comments: Atrial Fibrillation [80] Congestive Heart Failure [127] [facility] Office Visiton 05-23-2023 Follow-up visit [id number] Maximo Gill [place] 1950 F Date Provider Department Center 05/23/2023 RAMAN CASTANEDA CHING [facility] Family History Problem Relation Age of Onset Heart attack Father Diabetes Father Hypertension Father Coronary artery disease Father Rheum arthritis Father Family Status - Relation Status Age at Father Level of Service:00817 [place] OFFICE/OUTPATIENT ESTABLISHED LOW MDM 20-29 MIN Normal [facility] CBC AUTO DIFFon 03-02-2023 BASO # 0.1 103/ul Normal 0.0-0.1 [facility] Comment on above: Performed By: #### C BC #### [facility] [address] [place] [address] Dr. Yandy Rodarte Basophils/100 WBC (Bld) 0.4 % Normal 0.2-2.0 [facility] Comment on above: Performed By: #### C BC #### [facility] [address] [place] [address] Dr. Yandy Rodarte EO # 0.5 103/ul Normal 0.0-0.7 [facility] Comment on above: Performed By: #### C BC #### [facility] [address] [place] [address] Dr. Yandy Rodarte Eosinophils/100 WBC (Bld) 4.1 % Normal 0.9-7.0 [facility] Comment on above: Performed By: #### C BC #### [facility] [address] [place] [address] Dr. Yandy Rodarte Erythrocyte distribution width (RBC) [Ratio] 14.0 % Normal 11.0-15.0 [facility] Comment on above: Performed By: #### C BC #### [facility] [address] [place] [address] Dr. Yandy Rodarte Hematocrit (Bld) [Volume fraction] 42.8 % Normal 36.0-48.0 [facility] Comment on above: Performed By: #### C BC #### [facility] [address] [place] [address] Dr. Yandy Rodarte Hemoglobin (Bld) [Mass/Vol] 13.6 g/dL Normal 12.0-16.0 [facility] Comment on above: Performed By: #### C BC #### [facility] [address] [place] [address] Dr. Yandy Rodarte IG # 0.04 10e3/ul Critically high 0.00-0.03 [facility] Comment on above: Performed By: #### C BC #### [facility] [address] [address] [address] Yandy Rodarte IG % 0.4 % Normal 0.0-0.5 [facility] Comment on above: Performed By: #### C BC #### [facility] [address] [place] [address] Dr. Yandy Rodarte LYMPH # 2.2 103/ul Normal 1.2-3.8 [facility] Comment on above: Performed By: #### C BC #### [facility] [address] [place] [address] Dr. Yandy Rodarte Lymphocytes/100 WBC (Bld) 20.0 % Critically low 20.5-60.0 [facility] Comment on above: Performed By: #### C BC #### [facility] [address] [place] [address] Dr. Yandy Rodarte MANUAL DIFF REQ NO Normal [facility] Comment on above: Performed By: #### C BC #### [facility] [address] [place] [address] Dr. Yandy Rodarte MCH (RBC) [Entitic mass] 28.2 pg Normal 26.7-34.0 [facility] Comment on above: Performed By: #### C BC #### [facility] [address] [place] [address] Dr. Yandy Rodarte MCHC (RBC) [Mass/Vol] 31.8 g/dL Normal 29.9-35.2 [facility] Comment on above: Performed By: #### C BC #### [facility] [address] [place] [address] Dr. Yandy Rodarte MCV (RBC) [Entitic vol] 88.8 fL Normal 81.0-99.0 [facility] Comment on above: Performed By: #### C BC #### [facility] [address] [place] [address] Dr. Yandy Rodarte MONO # 0.7 103/ul Normal 0.3-0.8 [facility] Comment on above: Performed By: #### C BC #### [facility] [address] [place] [address] Dr. Yandy Rodarte Monocytes/100 WBC (Bld) 6.3 % Normal 1.7-12.0 [facility] Comment on above: Performed By: #### C BC #### [facility] [address] [place] [address] Dr. Yandy Rodarte NEUT # 7.7 103/ul Critically high 1.4-6.5 [facility] Comment on above: Performed By: #### C BC #### [facility] [address] [place] [address] Dr. Yandy Rodarte Neutrophils/100 WBC (Bld) 68.8 % Normal 43.0-75.0 [facility] Comment on above: Performed By: #### C BC #### [facility] [address] [place] [address] Dr. Yandy Rodarte Platelet mean volume (Bld) [Entitic vol] 9.8 fL Normal 9.5-13.5 [facility] Comment on above: Performed By: #### C BC #### [facility] [address] [place] [address] Dr. Yandy Rodarte PLT 259 103/ul Normal 150-[address] [facility] Comment on above: Performed By: #### C BC #### [facility] [address] [place] [address] Dr. Yandy Rodarte RBC 4.82 106/ul Normal 4.20-5.[address] [facility] Comment on above: Performed By: #### C BC #### [facility] [address] [place] [address] Dr. Yandy Rodarte WBC 11.2 103/ul Critically high 4.0-11.0 [facility] Comment on above: Performed By: #### C #### [facility] [address] [address] [address] Yandy Rodarte ECHOCARDIO M/2D COMPLETEon 0 03-02-2023 ECHOCARDIO M/2D COMPLETE Patient: AFIA GILL Exam Date: 03/02/2023 : 1950 Gender:F Ordering : MRS. JESSICA PRECIADO AUTO APPRAISER Admission #: [id number] Family : Order #: [id number] CLICK HERE TO VIEW EXAM ECHOCARDIOGRAM REPORT [...] Left Atrium LA Volume Index (2D A2C): 037293 mm3 Left Atrium Systolic Dimension: 3.80 cm [...] Gomez M.D. on 03/02/2023 at 19:19 Normal [facility] LIPID PROFILEon 03-02-2023 CHOL-HDL RATIO NORM SEE BELOW Normal [facility] Comment on above: Result Comment: 3.3 - 4.4 LOW RISK 4.4 - 7.1 AVERAGE RISK 7.1 - 11.0 MODERATE RISK >11.0 HIGH RISK Performed By: #### L JONATHAN, CMP #### [facility] [address] [address] [address] Yandy Rodarte Cholesterol [Mass/Vol] 203 mg/dL Critically high <=[address] [facility] Comment on above: Performed By: #### L IPID, CMP #### [facility] [address] [address] [address] Yandy Rodarte Cholesterol in HDL [Mass/Vol] 35 mg/dL Critically low 40-60 [facility] Comment on above: Performed By: #### L IPID, CMP #### [facility] [address] [address] [address] Yandy Rodarte Cholesterol in LDL [Mass/Vol] 123.0 mg/dL Normal [facility] Comment on above: Performed By: #### L IPID, CMP #### [facility] [address] [address] [address] Yandy Rodarte Cholesterol.total/C holesterol in HDL [Mass ratio] 5.8 {ratio} Normal [facility] Comment on above: Performed By: #### L IPID, CMP #### [facility] [address] [address] [address] Yandy Rodarte HDL NORMAL > or = 60 mg/dl - LO W CARDIOVASCULAR RISK <40 mg/dl - HIGH CARDIOVASCULAR RISK Normal [facility] Comment on above: Performed By: #### L IPID, CMP #### [facility] [address] [address] [address] Yandy Rodarte LDL CALC NORMAL SEE BELOW Normal [facility] Comment on above: Result Comment: <100 mg/dl OPTIMAL 100 - 129 mg/dl NEAR OR ABOVE OPTIMAL 130 - 159 mg/dl BORDERLINE HIGH 160 - 189 mg/dl HIGH >190 mg/dl VERY HIGH Performed By: #### L IPID, CMP #### [facility] [address] [address] [address] Yandy Rodarte Triglyceride [Mass/Vol] 225 mg/dL Critically high <=150 [facility] Comment on above: Performed By: #### L IPID, CMP #### [facility] [address] [address] [address] Yandy Rodarte VLDL CALC 45.0 mg/dL Normal [facility] Comment on above: Performed By: #### L IPID, CMP #### [facility] [address] [address] [address] Yandy Rodarte PROF 14(COMP METB)on 023 Albumin [Mass/Vol] 3.5 g/dL Normal 3.4-5.0 [facility] Comment on above: Performed By: #### L IPID, CMP #### [facility] [address] [place] [address] Dr. Yandy Rodarte Albumin/Globulin [Mass ratio] 0.8 {ratio} Normal [facility] Comment on above: Performed By: #### L IPID, CMP #### [facility] [address] [place] [address] Dr. Yandy Rodarte ALP [Catalytic activity/Vol] 100 U/L Normal 46-116 [facility] Comment on above: Performed By: #### L IPID, CMP #### [facility] [address] [address] [address] Yandy Rodarte ALT [Catalytic activity/Vol] 22 U/L Normal 14-59 [facility] Comment on above: Performed By: #### L IPID, CMP #### [facility] [address] [address] [address] Yandy Rodarte Anion gap [Moles/Vol] 8.9 mmol/L Normal [facility] Comment on above: Performed By: #### L IPID, CMP #### [facility] [address] [place] [address] Dr. Yandy Rodarte AST [Catalytic activity/Vol] 17 U/L Normal 15-37 [facility] Comment on above: Performed By: #### L IPID, CMP #### [facility] [address] [place] [address] Dr. Yandy Rodarte Bilirubin [Mass/Vol] 0.4 mg/dL Normal 0.2-1.0 [facility] Comment on above: Performed By: #### L IPID, CMP #### [facility] [address] [place] [address] Dr. Yandy Rodarte Calcium [Mass/Vol] 9.2 mg/dL Normal 8.5-10.1 [facility] Comment on above: Performed By: #### L IPID, CMP #### [facility] [address] [place] [address] Dr. Yandy Rodarte Chloride [Moles/Vol] 104 mmol/L Normal 98-107 [facility] Comment on above: Performed By: #### L IPID, CMP #### [facility] [address] [place] [address] Dr. Yandy Rodarte CO2 [Moles/Vol] 32.6 mmol/L Critically high 21.0-32.0 [facility] Comment on above: Performed By: #### L IPID, CMP #### [facility] [address] [address] [address] Yandy Rodarte Creatinine [Mass/Vol] 0.81 mg/dL Normal 0.55-1.02 [facility] Comment on above: Performed By: #### L IPID, CMP #### [facility] [address] [address] [address] Yandy Rodarte EGFR-AF CITIZEN [place] >60 Normal >=60 [facility] Comment on above: Performed By: #### L IPID, CMP #### [facility] [address] [address] [address] Yandy Rodarte EGFR-NON AF CITIZEN OF [place] >60 Normal >=60 [facility] Comment on above: Performed By: #### L IPID, CMP #### [facility] [address] [address] [address] Yandy Rodarte Globulin (S) [Mass/Vol] 4.6 g/dL Normal [facility] Comment on above: Performed By: #### L IPID, CMP #### [facility] [facility] [address] [address] [address] Yandy Rodarte Glucose [Mass/Vol] 114 mg/dL Critically high 74-106 [facility] Comment on above: Performed By: #### L IPID, CMP #### [facility] [address] [address] [address] Yandy Rodarte Potassium [Moles/Vol] 4.5 mmol/L Normal 3.5-5.1 [facility] Comment on above: Performed By: #### L IPID, CMP #### [facility] [address] [place] [address] Dr. Yandy Rodarte Protein [Mass/Vol] 8.1 g/dL Normal 6.4-8.2 [facility] Comment on above: Performed By: #### L IPID, CMP #### [facility] [address] [address] [address] Yandy Rodarte Sodium [Moles/Vol] 141 mmol/L Normal 136-145 [facility] Comment on above: Performed By: #### L IPID, CMP #### [facility] [address] [address] [address] Yandy Rodarte Urea nitrogen [Mass/Vol] 18.0 mg/dL Normal 7.0-18.0 [facility] Comment on above: Performed By: #### L IPID, CMP #### [facility] [address] [address] [address] Yandy Rodarte Urea nitrogen/Creatinine [Mass ratio] 22.2 mg/mg Normal [facility] Comment on above: Performed By: #### L IPID, CMP #### [facility] [address] [address] [address] Yandy Rodarte Office Visiton 02-19-2023 Follow-up visit [id number] Maximo Gill Kassy 1950 F Date Provider Department Center 02/19/2023 [id number] PRECIADO [facility] Family History Problem Relation Age of Onset Heart attack Father Diabetes Father Hypertension Father Coronary artery disease Father Rheum arthritis Father Family Status - Relation Status Age at Father Level of Service:87899 [place] OFFICE/OUTPATIENT ESTABLISHED MOD MDM 30-39 MIN Reason for Visit and Comments: Follow-up [279904] - 6 month follow up Normal [facility] MG MAMM SCREEN MARIELENA W CADon 0 12-27-2022 MG MAMM SCREEN MARIELENA W CAD Patient: AFIA GILL Exam Date: 12/27/2022 : 1950 Gender:F Ordering : DR YAHIR BROTHERS M.D. Admission #: [id number] Family : Order #: [id number] CLICK HERE TO VIEW EXAM RADIOLOGY REPORT [...] cervical cancer at age 37. LOCATION: [facility] BREAST COMPOSITION: Scattered areas fibroglandular density. [...] Pang MD on 12/28/2022 at 09:38 Normal [facility] CT SINUSES WO CONon 05-18-[address] SINUSES WO CON EXAMINATION: CT SINU SES WO CON HISTORY: Nasal discharge ; chronic [...] by: YAYA ZULUAGA Date: 2022-05-18 08:38 Normal [facility] BASIC METABOLIC PANELon - Calcium [Mass/Vol] 9.6 mg/dL Normal 8.6-10.[address] [facility] Comment on above: Order Comment: No: D o not add to previous draw Performed By: #### 5 [id number] #### [facility] [address] [place] [address], [facility] Chloride [Moles/Vol] 101 mmol/L Normal 98-107 [facility] Comment on above: Order Comment: No: D o not add to previous draw Performed By: #### 5 0608 #### [facility] [address] [place] [address], [place] CO2 [Moles/Vol] 29 mmol/L Normal 21-31 [facility] Comment on above: Order Comment: No: D o not add to previous draw Performed By: #### 5 0608 #### [facility] [address] [place] [address], [facility] Creatinine [Mass/Vol] 0.71 mg/dL Normal 0.60-1.20 [facility] Comment on above: Order Comment: No: D o not add to previous draw Performed By: #### 5 0608 #### [facility] [address] [place] [address], [place] GFR/1.73 sq M predicted among blacks MDRD (S/P/Bld) [Vol rate/Area] mL/min/{1.73_m2} Normal >60 [facility] Comment on above: Order Comment: No: D o not add to previous draw Performed By: #### 5 0608 #### [facility] [address] [place] [address], [facility] GFR/1.73 sq M predicted among non-blacks MDRD (S/P/Bld) [Vol rate/Area] mL/min/{1.73_m2} Normal >60 [facility] Comment on above: Order Comment: No: D o not add to previous draw Performed By: #### 5 0608 #### [facility] [address] [place] [address], [place] Glucose [Mass/Vol] 127 mg/dL High 70-100 [facility] Comment on above: Order Comment: No: D o not add to previous draw Performed By: #### 5 0608 #### [facility] [address] [place] [address], [facility] Potassium [Moles/Vol] 4.3 mmol/L Normal 3.5-5.1 [facility] Comment on above: Order Comment: No: D o not add to previous draw Performed By: #### 5 0608 #### [facility] [address] [place] [address], [place] Sodium [Moles/Vol] 137 mmol/L Normal 136-[address] [facility] Comment on above: Order Comment: No: D o not add to previous draw Performed By: #### 5 0608 #### [facility] [address] [place] [id number], [facility] Urea nitrogen [Mass/Vol] 20 mg/dL Normal 7-25 [facility] Comment on above: Order Comment: No: D o not add to previous draw Performed By: #### 5 0608 #### [facility] [address] [place] [id number], [facility] CBC COMPLETE BLOOD COUNTon - Erythrocyte distribution width (RBC) [Ratio] 14.6 % Normal 11.5-15.0 [facility] Comment on above: Order Comment: No: D o not add to previous draw Performed By: #### 5 0608 #### [facility] [address] [place] [id number], [facility] Hematocrit (Bld) [Volume fraction] 44.6 % Normal 36.0-45.0 [facility] Comment on above: Order Comment: No: D o not add to previous draw Performed By: #### 5 0608 #### [facility] [address] [place] [address], [facility] Hemoglobin (Bld) [Mass/Vol] 14.1 g/dL Normal 12.0-15.0 [facility] Comment on above: Order Comment: No: D o not add to previous draw Performed By: #### 5 0608 #### [facility] [address] [place] [address], [facility] MCH (RBC) [Entitic mass] 30.2 pg Normal 27.0-33.0 [facility] Comment on above: Order Comment: No: D o not add to previous draw Performed By: #### 5 0608 #### [facility] [address] [place] [id number], [facility] MCHC (RBC) [Mass/Vol] 31.6 g/dL Low 32.0-35.0 [facility] Comment on above: Order Comment: No: D o not add to previous draw Performed By: #### 5 0608 #### [facility] [address] [place] [address], [facility] MCV (RBC) [Entitic vol] 95.5 fL Normal 82.0-98.0 [facility] Comment on above: Order Comment: No: D o not add to previous draw Performed By: #### 5 0608 #### [facility] [address] [facility] [address], [facility] Nucleated RBC/100 WBC (Bld) [Ratio] 0 % Normal 0-0 [facility] Comment on above: Order Comment: No: D o not add to previous draw Performed By: #### 5 0608 #### [facility] [address] [place] [address], [facility] PLAT CNT 250 10*3/uL Normal 150-400 [facility] Comment on above: Order Comment: No: D o not add to previous draw Performed By: #### 5 0608 #### [facility] [address] [facility] [place] [address], [facility] RBC (Bld) [#/Vol] 4.67 10*6/uL Normal 3.80-5.00 [facility] Comment on above: Order Comment: No: D o not add to previous draw Performed By: #### 5 0608 #### [facility] [address] WBC (Bld) [#/Vol] 9.20 10*3/uL Normal 4.00-10.60 [facility] Comment on above: Order Comment: No: D o not add to previous draw Performed By: #### 5 0608 #### [facility] [address] [facility] POC GLUCOSE LABon 02-02-2019 Glucose [Mass/Vol] 146 mg/dL High 70-[address] [facility] Comment on above: Performed By: #### 5 0608 #### [facility] [address] [facility]. [address] Glucose [Mass/Vol] 115 mg/dL High 70-[address] [facility] Comment on above: Performed By: #### 5 0608 #### [facility] [address] [facility]. [address] PROTHROMBIN TIMEon 9 INR Coag (PPP) [Relative time] 1.22 {INR} High 0.91-1.16 [facility] Comment on above: Order Comment: No: D [...] 1995;108:231S-246S. Performed By: #### 5 0608 #### [facility] [address] [place] [address], [facility] PT Coag (PPP) [Time] 15.4 s High 12.3-14.8 [facility] Comment on above: Order Comment: No: D o not add to previous draw Result Comment: ALL RESULTS MUST BE INTERPRETED WITH RESPECT TO BLOOD DRAWING ARTIFACT OR DILUTION ERROR OF ANTICOAGULANT AT THE TIME OF SAMPLING. Performed By: #### 5 0608 #### [facility] [address] [place] [address], [facility] POC GLUCOSE LABon 02-01-2019 Glucose [Mass/Vol] 152 mg/dL High 70-[address] [facility] Comment on above: Performed By: #### 5 0608 #### [facility] [address] [place] [address], [place] Glucose [Mass/Vol] 118 mg/dL High 70-[address] [facility] Comment on above: Performed By: #### 5 0608 #### [facility] [address] [place] [address], [place] Glucose [Mass/Vol] 197 mg/dL High 70-[address] [facility] Comment on above: Performed By: #### 5 0608 #### [facility] [address] [place] [address], [place] Glucose [Mass/Vol] 123 mg/dL High 70-[address] [facility] Comment on above: Performed By: #### 5 0608 #### [facility] [address] [place] [address], [place] PROTHROMBIN TIMEon 9 INR Coag (PPP) [Relative time] 1.24 {INR} High 0.91-1.16 [facility] Comment on above: Order Comment: Unkno wn [...] 1995;108:231S-246S. Performed By: #### 0 0071 #### [facility] [address] [facility]. [address] PT Coag (PPP) [Time] 15.6 s High 12.3-14.8 [facility] Comment on above: Order Comment: Shaan brunson Result Comment: ALL RESULTS MUST BE INTERPRETED WITH RESPECT TO BLOOD DRAWING ARTIFACT OR DILUTION ERROR OF ANTICOAGULANT AT THE TIME OF SAMPLING. Performed By: #### 0 0071 #### [facility] [address] BASIC METABOLIC PANELon 01-20 Calcium [Mass/Vol] 9.5 mg/dL Normal 8.6-10.[address] [facility] Comment on above: Order Comment: No: D o not add to previous draw Performed By: #### 0 0071 #### [facility] [address] [place] [address], [facility] Chloride [Moles/Vol] 98 mmol/L Normal 98-107 [facility] Comment on above: Order Comment: No: D o not add to previous draw Performed By: #### 0 0071 #### [facility] [address] [place] [address], [place] CO2 [Moles/Vol] 29 mmol/L Normal 21-31 [facility] Comment on above: Order Comment: No: D o not add to previous draw Performed By: #### 0 0071 #### [facility] [address] [place] [address], [place] Creatinine [Mass/Vol] 0.72 mg/dL Normal 0.60-1.20 [facility] Comment on above: Order Comment: No: D o not add to previous draw Performed By: #### 0 0071 #### [facility] [address] [place] [address], [place] GFR/1.73 sq M predicted among blacks MDRD (S/P/Bld) [Vol rate/Area] mL/min/{1.73_m2} Normal >60 [facility] Comment on above: Order Comment: No: D o not add to previous draw Performed By: #### 0 0071 #### [facility] [address] [place] [address], [place] GFR/1.73 sq M predicted among non-blacks MDRD (S/P/Bld) [Vol rate/Area] mL/min/{1.73_m2} Normal >60 [facility] Comment on above: Order Comment: No: D o not add to previous draw Performed By: #### 0 0071 #### [facility] [address] [place] [address], [place] Glucose [Mass/Vol] 120 mg/dL High 70-100 [facility] Comment on above: Order Comment: No: D o not add to previous draw Performed By: #### 0 0071 #### [facility] [address] [place] [address], [place] Potassium [Moles/Vol] 3.5 mmol/L Normal 3.5-5.1 [facility] Comment on above: Order Comment: No: D o not add to previous draw Performed By: #### 0 0071 #### [facility] [address] [place] [address], [facility] Sodium [Moles/Vol] 138 mmol/L Normal 136-[address] [facility] Comment on above: Order Comment: No: D o not add to previous draw Performed By: #### 0 0071 #### [facility] [address] [place] [address], [facility] Urea nitrogen [Mass/Vol] 20 mg/dL Normal 7-25 [facility] Comment on above: Order Comment: No: D o not add to previous draw Performed By: #### 0 0071 #### [facility] [address] [place] [address], [facility] CBC COMPLETE BLOOD COUNTon - Erythrocyte distribution width (RBC) [Ratio] 14.6 % Normal 11.5-15.0 [facility] Comment on above: Order Comment: No: D o not add to previous draw Performed By: #### 0 0071 #### [facility] [address] [place] [address], [facility] Hematocrit (Bld) [Volume fraction] 42.7 % Normal 36.0-45.0 [facility] Comment on above: Order Comment: No: D o not add to previous draw Performed By: #### 0 0071 #### [facility] [address] [place] [address], [facility] Hemoglobin (Bld) [Mass/Vol] 13.8 g/dL Normal 12.0-15.0 [facility] Comment on above: Order Comment: No: D o not add to previous draw Performed By: #### 0 0071 #### [facility] [address] [place] [address], [place] MCH (RBC) [Entitic mass] 31.0 pg Normal 27.0-33.0 [facility] Comment on above: Order Comment: No: D o not add to previous draw Performed By: #### 0 0071 #### [facility] [address] [place] [address], [facility] MCHC (RBC) [Mass/Vol] 32.3 g/dL Normal 32.0-35.0 [facility] Comment on above: Order Comment: No: D o not add to previous draw Performed By: #### 0 0071 #### [facility] [address] [place] [address], [facility] MCV (RBC) [Entitic vol] 96.0 fL Normal 82.0-98.0 [facility] Comment on above: Order Comment: No: D o not add to previous draw Performed By: #### 0 0071 #### [facility] [address] Nucleated RBC/100 WBC (Bld) [Ratio] 0 % Normal 0-0 [facility] Comment on above: Order Comment: No: D o not add to previous draw Performed By: #### 0 0071 #### [facility] [address] [facility] [place] [address], [facility] PLAT CNT 217 10*3/uL Normal 150-400 [facility] Comment on above: Order Comment: No: D o not add to previous draw Performed By: #### 0 0071 #### [facility] [address] [facility] [place] [address], [facility] RBC (Bld) [#/Vol] 4.45 10*6/uL Normal 3.80-5.00 [facility] Comment on above: Order Comment: No: D o not add to previous draw Performed By: #### 0 0071 #### [facility] [address] [place] [address], [facility] WBC (Bld) [#/Vol] 9.17 10*3/uL Normal 4.00-10.60 [facility] Comment on above: Order Comment: No: D o not add to previous draw Performed By: #### 0 0071 #### [facility] [address] [place] [address], [facility] POC GLUCOSE LABon 01-31-2019 Glucose [Mass/Vol] 116 mg/dL High 70-[address] [facility] Comment on above: Performed By: #### 0 0071 #### [facility] [address] [place] [address], [place] Glucose [Mass/Vol] 122 mg/dL High 70-[address] [facility] Comment on above: Performed By: #### 0 0071 #### [facility] [address] [place] [address], [place] Glucose [Mass/Vol] 191 mg/dL High 70-[address] [facility] Comment on above: Performed By: #### 0 0071 #### [facility] [address] [facility] [address], [place] Glucose [Mass/Vol] 131 mg/dL High 70-[address] [facility] Comment on above: Performed By: #### 0 0071 #### [facility] [address] [place] [address], [facility] PROTHROMBIN TIMEon 9 INR Coag (PPP) [Relative time] 1.24 {INR} High 0.91-1.16 [facility] Comment on above: Order Comment: Unkno wn [...] 1995;108:231S-246S. Performed By: #### 0 0071 #### [facility] [address] [place] [address], [facility] PT Coag (PPP) [Time] 15.6 s High 12.3-14.8 [facility] Comment on above: Order Comment: Unkno wn Result Comment: ALL RESULTS MUST BE INTERPRETED WITH RESPECT TO BLOOD DRAWING ARTIFACT OR DILUTION ERROR OF ANTICOAGULANT AT THE TIME OF SAMPLING. Performed By: #### 0 0071 #### [facility] [address] [facility]. [address] BASIC METABOLIC PANELon - Calcium [Mass/Vol] 10.0 mg/dL Normal 8.6-10.3 [facility] Comment on above: Order Comment: No: D o not add to previous draw Performed By: #### 0 0071 #### [facility] [address] [facility] [address], [facility] Chloride [Moles/Vol] 99 mmol/L Normal 98-107 [facility] Comment on above: Order Comment: No: D o not add to previous draw Performed By: #### 0 0071 #### [facility] [address] [place] [address], [facility] CO2 [Moles/Vol] 30 mmol/L Normal 21-31 [facility] Comment on above: Order Comment: No: D o not add to previous draw Performed By: #### 0 0071 #### [facility] [address] [place] [address], [facility] Creatinine [Mass/Vol] 0.74 mg/dL Normal 0.60-1.20 [facility] Comment on above: Order Comment: No: D o not add to previous draw Performed By: #### 0 0071 #### [facility] [address] [place] [address], [place] GFR/1.73 sq M predicted among blacks MDRD (S/P/Bld) [Vol rate/Area] mL/min/{1.73_m2} Normal >60 [facility] Comment on above: Order Comment: No: D o not add to previous draw Performed By: #### 0 0071 #### [facility] [address] [place] [address], [facility] GFR/1.73 sq M predicted among non-blacks MDRD (S/P/Bld) [Vol rate/Area] mL/min/{1.73_m2} Normal >60 [facility] Comment on above: Order Comment: No: D o not add to previous draw Performed By: #### 0 0071 #### [facility] [address] [place] [address], [place] Glucose [Mass/Vol] 112 mg/dL High 70-[address] [facility] Comment on above: Order Comment: No: D o not add to previous draw Performed By: #### 0 0071 #### [facility] [address] [place] [address], [place] Potassium [Moles/Vol] 4.3 mmol/L Normal 3.5-5.1 [facility] Comment on above: Order Comment: No: D o not add to previous draw Performed By: #### 0 0071 #### [facility] [address] [place] [address], [place] Sodium [Moles/Vol] 137 mmol/L Normal 136-[address] [facility] Comment on above: Order Comment: No: D o not add to previous draw Performed By: #### 0 0071 #### [facility] [address] [place] [address], [place] Urea nitrogen [Mass/Vol] 20 mg/dL Normal 7-25 [facility] Comment on above: Order Comment: No: D o not add to previous draw Performed By: #### 0 0071 #### [facility] [address] [place] [address], [place] Calcium [Mass/Vol] 9.3 mg/dL Normal 8.6-10.3 [facility] Comment on above: Order Comment: No: D o not add to previous draw Performed By: #### 5 6101 #### [facility] [address] [place] [address], [place] Chloride [Moles/Vol] 103 mmol/L Normal 98-107 [facility] Comment on above: Order Comment: No: D o not add to previous draw Performed By: #### 5 [id number] #### [facility] [address] [place] [address], [place] CO2 [Moles/Vol] 28 mmol/L Normal 21-31 [facility] Comment on above: Order Comment: No: D o not add to previous draw Performed By: #### 5 6101 #### [facility] [address] [place] [address], [place] Creatinine [Mass/Vol] 0.62 mg/dL Normal 0.60-1.20 [facility] Comment on above: Order Comment: No: D o not add to previous draw Performed By: #### 5 6101 #### [facility] [address] [place] [address], [place] GFR/1.73 sq M predicted among blacks MDRD (S/P/Bld) [Vol rate/Area] mL/min/{1.73_m2} Normal >60 [facility] Comment on above: Order Comment: No: D o not add to previous draw Performed By: #### 5 6101 #### [facility] [address] [place] [address], [place] GFR/1.73 sq M predicted among non-blacks MDRD (S/P/Bld) [Vol rate/Area] mL/min/{1.73_m2} Normal >60 [facility] Comment on above: Order Comment: No: D o not add to previous draw Performed By: #### 5 6101 #### [facility] [address] [place] [address], [place] Glucose [Mass/Vol] 117 mg/dL High 70-[address] [facility] Comment on above: Order Comment: No: D o not add to previous draw Performed By: #### 5 6101 #### [facility] [address] [place] [address], [place] Potassium [Moles/Vol] 3.5 mmol/L Normal 3.5-5.1 [facility] Comment on above: Order Comment: No: D o not add to previous draw Performed By: #### 5 6101 #### [facility] [address] [place] [address], [place] Sodium [Moles/Vol] 140 mmol/L Normal 136-[address] [facility] Comment on above: Order Comment: No: D o not add to previous draw Performed By: #### 5 6101 #### [facility] [address] [place] [address], [place] Urea nitrogen [Mass/Vol] 15 mg/dL Normal 7-25 [facility] Comment on above: Order Comment: No: D o not add to previous draw Performed By: #### 5 [id number] #### [facility] [address] [place] [address], [place] CBC COMPLETE BLOOD COUNTon 0 - Erythrocyte distribution width (RBC) [Ratio] 14.6 % Normal 11.5-15.0 [facility] Comment on above: Order Comment: No: D o not add to previous draw Performed By: #### 5 [id number] #### [facility] [address] [place] [address], [facility] Hematocrit (Bld) [Volume fraction] 42.1 % Normal 36.0-45.0 [facility] Comment on above: Order Comment: No: D o not add to previous draw Performed By: #### 5 [id number] #### [facility] [address] [place] [address], [facility] Hemoglobin (Bld) [Mass/Vol] 13.4 g/dL Normal 12.0-15.0 [facility] Comment on above: Order Comment: No: D o not add to previous draw Performed By: #### 5 [id number] #### [facility] [address] [place] [id number], [facility] MCH (RBC) [Entitic mass] 30.6 pg Normal 27.0-33.0 [facility] [facility] Comment on above: Order Comment: No: D o not add to previous draw Performed By: #### 5 6101 #### [facility] [address] [place] [address], [facility] MCHC (RBC) [Mass/Vol] 31.8 g/dL Low 32.0-35.0 [facility] Comment on above: Order Comment: No: D o not add to previous draw Performed By: #### 5 6101 #### [facility] [address] [place] [id number], [facility] MCV (RBC) [Entitic vol] 96.1 fL Normal 82.0-98.0 The [facility] Comment on above: Order Comment: No: D o not add to previous draw Performed By: #### 5 6101 #### [facility] [address] [place] [id number], [facility] Nucleated RBC/100 WBC (Bld) [Ratio] 0 % Normal 0-0 The [facility] Comment on above: Order Comment: No: D o not add to previous draw Performed By: #### 5 6101 #### [facility] [address] PLAT CNT 215 10*3/uL Normal 150-400 The [facility] Comment on above: Order Comment: No: D o not add to previous draw Performed By: #### 5 6101 #### [facility] [address] [facility] [address] RBC (Bld) [#/Vol] 4.38 10*6/uL Normal 3.80-5.00 The [facility] Comment on above: Order Comment: No: D o not add to previous draw Performed By: #### 5 6101 #### [facility] [address] [place] [address], [facility] WBC (Bld) [#/Vol] 8.75 10*3/uL Normal 4.00-10.60 The [facility] Comment on above: Order Comment: No: D o not add to previous draw Performed By: #### 5 6101 #### [facility] [address] Cardiovascular Lab Reporton 01-30-2019 Cardiovascular Lab Report [facility] Patient Name: Afia Gill [facility] Kassy MR #: [id number] Department of Physician: [facility] Tayler Gomez M.D. Division of Service Date: 01/29/2019 Cardiology Birthdate: 1950 Adult Cardiovascular Room #: 3AB [id number] Services [facility] [address] [address] Cardiovascular Laboratory Report INDICATION: The patient is [...] signed informed consent. She was brought to research lab assistant in a fasting state. The right neck area was prepped and draped in usual fashion. Using ultrasound guidance and micropuncture technique, the internal jugular vein was accessed. A 6-Chinese x 11 cm sheath was placed. A 6-Chinese Caldera catheter was used for right heart catheterization with measurement of pressures and calculation of cardiac output using the estimated Nader method. The Caldera catheter was removed. Using ultrasound guidance and micropuncture technique, the right radial artery was accessed. A 6-Chinese x 11 cm Hydrophilic sheath was advanced. Verapamil was given through the sheath and a bolus of bivalirudin was given intravenously as the patient has prior history of heparin-induced thrombocytopenia. Note that, the care was taken to avoid any use of heparin during the procedure. Bilateral selective coronary angiography was then performed using 6-Chinese JL3.5 and JR5 diagnostic catheters. Catheters were removed. A 6-Chinese angled pigtail catheter was advanced over the [...] with 30% left ventricular ejection fraction. 3. Lwau-dc-bcwauhzf mitral regurgitation. 4. Severely elevated filling pressures. [...] Gomez M.D. Date Trans: 01/30/2019 07:50 Kassy/ivan [id number] cc: Yahir Brothers M.D. [address] [address] Yahir Mijares M.D. [address] [address] Normal The [facility] MAGNESIUM BLOODon 01-30-2019 Magnesium [Mass/Vol] 2.2 mg/dL Normal 1.9-2.7 The [facility] Comment on above: Order Comment: No: D o not add to previous draw Performed By: #### 0 0071 #### [facility] [address] [place] [address], [facility] Magnesium [Mass/Vol] 2.2 mg/dL Normal 1.9-2.7 The [facility] Comment on above: Order Comment: No: D o not add to previous draw Performed By: #### 5 6101 #### [facility] [address] [place] [address], [facility] POC GLUCOSE LABon 01-30-2019 Glucose [Mass/Vol] 107 mg/dL High 70-[address] [facility] Comment on above: Performed By: #### 5 6101 #### [facility] [address] [place] [address], [place] Glucose [Mass/Vol] 125 mg/dL High 70-[address] [facility] Comment on above: Performed By: #### 5 6101 #### [facility] [address] [place] [address], [place] Glucose [Mass/Vol] 137 mg/dL High 70-[address] [facility] Comment on above: Performed By: #### 5 6101 #### [facility] [address] [place] [address], [place] Glucose [Mass/Vol] 114 mg/dL High 70-[address] [facility] Comment on above: Performed By: #### 5 6101 #### [facility] [address] [place] [address], [facility] PROTHROMBIN TIMEon 9 INR Coag (PPP) [Relative time] 1.23 {INR} High 0.91-1.16 The [facility] Comment on above: Order Comment: No: D [...] 1995;108:231S-246S. Performed By: #### 5 6101 #### [facility] [address] PT Coag (PPP) [Time] 15.5 s High 12.3-14.8 The [facility] Comment on above: Order Comment: No: D o not add to previous draw Result Comment: ALL RESULTS MUST BE INTERPRETED WITH RESPECT TO BLOOD DRAWING ARTIFACT OR DILUTION ERROR OF ANTICOAGULANT AT THE TIME OF SAMPLING. Performed By: #### 5 6101 #### [facility] [address] TSH3on 01-30-2019 TSH 3RD GENERATION 1.24 uIU/mL Normal 0.34-5.60 The [facility] Comment on above: Order Comment: No: D o not add to previous draw Performed By: #### 5 6101 #### [facility] [address] CBC COMPLETE BLOOD COUNTon 0 01-29-2019 Erythrocyte distribution width (RBC) [Ratio] 14.7 % Normal 11.5-15.0 The [facility] Comment on above: Order Comment: No: D o not add to previous draw Performed By: #### 5 0608 #### [facility] [address] Hematocrit (Bld) [Volume fraction] 43.4 % Normal 36.0-45.0 [facility] Comment on above: Order Comment: No: D o not add to previous draw Performed By: #### 5 0608 #### [facility] [address] Hemoglobin (Bld) [Mass/Vol] 13.8 g/dL Normal 12.0-15.0 The [facility] Comment on above: Order Comment: No: D o not add to previous draw Performed By: #### 5 0608 #### [facility] [address] [place] [address], [facility] MCH (RBC) [Entitic mass] 30.3 pg Normal 27.0-33.0 The [facility] Comment on above: Order Comment: No: D o not add to previous draw Performed By: #### 5 0608 #### [facility] [address] [place] [id number], [facility] MCHC (RBC) [Mass/Vol] 31.8 g/dL Low 32.0-35.0 The [facility] Comment on above: Order Comment: No: D o not add to previous draw Performed By: #### 5 0608 #### [facility] [address] [place] [address], [facility] MCV (RBC) [Entitic vol] 95.2 fL Normal 82.0-98.0 The [facility] Comment on above: Order Comment: No: D o not add to previous draw Performed By: #### 5 0608 #### [facility] [address] [place] [address], [facility] Nucleated RBC/100 WBC (Bld) [Ratio] 0 % Normal 0-0 The [facility] Comment on above: Order Comment: No: D o not add to previous draw Performed By: #### 5 0608 #### [facility] [address] [place] [address], [place] PLAT CNT 240 10*3/uL Normal 150-400 The [facility] Comment on above: Order Comment: No: D o not add to previous draw Performed By: #### 5 0608 #### [facility] [address] [place] [address], [facility] RBC (Bld) [#/Vol] 4.56 10*6/uL Normal 3.80-5.00 The [facility] Comment on above: Order Comment: No: D o not add to previous draw Performed By: #### 5 0608 #### [facility] [address] [place] [address], [facility] WBC (Bld) [#/Vol] 9.28 10*3/uL Normal 4.00-10.60 The [facility] Comment on above: Order Comment: No: D o not add to previous draw Performed By: #### 5 0608 #### [facility] [address] [place] [address], [facility] COMP METABOLIC PANELon 01-29 Albumin [Mass/Vol] 4.1 g/dL Normal 3.5-5.[address] [facility] Comment on above: Order Comment: No: D o not add to previous draw Performed By: #### 1 0070, 52462, 52152 #### [facility] [address] [place] [address], [place] ALKALINE PHOSPH 50 IU/L Normal 34-104 The [facility] Comment on above: Order Comment: No: D o not add to previous draw Performed By: #### 1 0070, 30572, 60870 #### [facility] [address] [place] [address], [place] ALT [Catalytic activity/Vol] 14 U/L Normal 7-52 [facility] Comment on above: Order Comment: No: D o not add to previous draw Performed By: #### 1 0070, 93082, 40336 #### [facility] [address] [place] [address], [place] AST [Catalytic activity/Vol] 15 U/L Normal 13-39 The [facility] Comment on above: Order Comment: No: D o not add to previous draw Performed By: #### 1 0070, 40686, 55494 #### [facility] [address] [place] [address], [place] Bilirubin [Mass/Vol] 0.8 mg/dL Normal 0.3-1.0 The [facility] Comment on above: Order Comment: No: D o not add to previous draw Performed By: #### 1 0070, 67358, 12199 #### [facility] [address] [place] [address], [place] Calcium [Mass/Vol] 9.6 mg/dL Normal 8.6-10.3 [facility] Comment on above: Order Comment: No: D o not add to previous draw Performed By: #### 1 0070, 04365, 55800 #### [facility] [address] [place] [address], [place] Chloride [Moles/Vol] 103 mmol/L Normal 98-107 The [facility] Comment on above: Order Comment: No: D o not add to previous draw Performed By: #### 1 0, 08381, 41061 #### [facility] [address] [place] [address], [place] CO2 [Moles/Vol] 30 mmol/L Normal 21-31 The [facility] Comment on above: Order Comment: No: D o not add to previous draw Performed By: #### 1 0, 29976, 74741 #### [facility] [address] [place] [address], [place] Creatinine [Mass/Vol] 0.71 mg/dL Normal 0.60-1.20 The [facility] Comment on above: Order Comment: No: D o not add to previous draw Performed By: #### 1 0070, 38830, 16845 #### [facility] [address] [place] [address], [place] GFR/1.73 sq M predicted among blacks MDRD (S/P/Bld) [Vol rate/Area] mL/min/{1.73_m2} Normal >60 The [facility] Comment on above: Order Comment: No: D o not add to previous draw Performed By: #### 1 0, 33314, 89728 #### [facility] [address] [place] [address], [place] GFR/1.73 sq M predicted among non-blacks MDRD (S/P/Bld) [Vol rate/Area] mL/min/{1.73_m2} Normal >60 The [facility] Comment on above: Order Comment: No: D o not add to previous draw Performed By: #### 1 0, , 85590 #### [facility] [address] [place] [address], [place] Glucose [Mass/Vol] 116 mg/dL High 70-[address] [facility] Comment on above: Order Comment: No: D o not add to previous draw Performed By: #### 1 0, , 54533 #### [facility] [address] [place] [address], [place] Potassium [Moles/Vol] 3.9 mmol/L Normal 3.5-5.1 [facility] Comment on above: Order Comment: No: D o not add to previous draw Performed By: #### 1 0, , 07222 #### [facility] [address] [place] [address], [place] Protein [Mass/Vol] 7.6 g/dL Normal 6.0-8.3 [facility] Comment on above: Order Comment: No: D o not add to previous draw Performed By: #### 1 0, 45116, 73455 #### [facility] [address] [place] [address], [place] Sodium [Moles/Vol] 140 mmol/L Normal 136-[address] [facility] Comment on above: Order Comment: No: D o not add to previous draw Performed By: #### 1 0, , 21930 #### [facility] [address] [place] [address], [facility] Urea nitrogen [Mass/Vol] 18 mg/dL Normal 7-25 The [facility] Comment on above: Order Comment: No: D o not add to previous draw Performed By: #### 1 0, 83281, 14133 #### [facility] [address] [place] [address], [facility] HEMOGLOBIN A1Con 01-29-2019 HbA1c (Bld) [Mass fraction] 6.1 % High 4.0-6.0 The [facility] Comment on above: Order Comment: Yes: Add to Previous draw if able Performed By: #### 5 6101 #### [facility] [address] [place] [address], [facility] HbA1c (Bld) [Mass fraction] 128 mg/dL High 70-126 The [facility] Comment on above: Order Comment: Yes: Add to Previous draw if able Performed By: #### 5 6101 #### [facility] [address] [place] [address], [facility] LIPID PROFILEon 01-29-2019 Cholesterol [Mass/Vol] 130 mg/dL Normal 120-200 The [facility] Comment on above: Result Comment: CHOL ESTEROL REFERENCE RANGE: 20 YEARS AND OLDER CARDIOVASCULAR RISK Less than 200 mg/dl Low Risk 200 to 239 mg/dl Borderline Risk 240 mg/dl and greater High Risk Performed By: #### 1 0, 83799, 43242 #### [facility] [address] [place] [id number], [facility] Cholesterol in HDL [Mass/Vol] 31 mg/dL Normal 23-92 The [facility] Comment on above: Result Comment: Slig ht variation in normal range could be due to gender and/or age. HDL CHOLESTEROL REFERENCE RANGE: 20 years and older Cardiovascular Risk > or =60 mg/dL Desirable 40 TO 59 mg/dL Low Risk <40 mg/dL High Risk Performed By: #### 1 0, 72697, 09450 #### [facility] [address] Cholesterol in LDL [Mass/Vol] 67 mg/dL Normal 0-130 The [facility] Comment on above: Result Comment: LDL IS A CALCULATION LDL IS ONLY VALID IF THE TRIG IS LESS THAN 400. Performed By: #### 1 0, 79025, 05827 #### [facility] [address] [place] [address], [facility] Cholesterol.total/C holesterol in HDL [Mass ratio] 4.2 {ratio} Normal .0-4.5 The [facility] Comment on above: Performed By: #### 1 0, , 91620 #### [facility] [address] NON-HDL CHOLESTEROL 99 mg/dL Normal The [facility] Comment on above: Performed By: #### 1 0, , 87026 #### [facility] [address] [facility]. [address] Triglyceride [Mass/Vol] 158 mg/dL High 40-149 The [facility] Comment on above: Result Comment: TRIG LYCERIDE REFERENCE RANGE: 20 YEARS AND OLDER CARDIOVASCULAR RISK LESS THAN 150 mg/dl LOW RISK 150 TO 199 mg/dl BORDERLINE RISK 200 mg/dl AND GREATER HIGH RISK Performed By: #### 1 0, , 31534 #### [facility] [address] [facility] [place] [address], [facility] VLDL CHOL 32 mg/dL Normal 0-40 The [facility] Comment on above: Performed By: #### 1 0, 79667, 30632 #### [facility] [address] [facility] [place] [address], [facility] MAGNESIUM BLOODon 01-29-2019 Magnesium [Mass/Vol] 2.2 mg/dL Normal 1.9-2.7 The [facility] Comment on above: Order Comment: No: D o not add to previous draw Performed By: #### 1 0, 32156, 69226 #### [facility] [address] [place] [address], [facility] POC GLUCOSE LABon 01-29-2019 Glucose [Mass/Vol] 102 mg/dL High 70-[address] [facility] Comment on above: Performed By: #### 8 5499 #### [facility] [address] [place] [address], [place] Glucose [Mass/Vol] 131 mg/dL High 70-[address] [facility] Comment on above: Performed By: #### 8 5499 #### [facility] [address] [place] [address], [facility] PROTHROMBIN TIMEon 9 INR Coag (PPP) [Relative time] 1.39 {INR} High 0.91-1.16 The [facility] Comment on above: Order Comment: Yes: Add [...] 1995;108:231S-246S. Performed By: #### 5 6101 #### [facility] [address] [place] [address], [place] PT Coag (PPP) [Time] 17.1 s High 12.3-14.8 The [facility] Comment on above: Order Comment: Yes: Add to Previous draw if able Result Comment: ALL RESULTS MUST BE INTERPRETED WITH RESPECT TO BLOOD DRAWING ARTIFACT OR DILUTION ERROR OF ANTICOAGULANT AT THE TIME OF SAMPLING. Performed By: #### 5 6101 #### [facility] [address] [place] [address], [facility] BASIC METABOLIC PANELon 04-0 Calcium [Mass/Vol] 10.1 mg/dL Normal 8.6-10.3 [facility] Comment on above: Performed By: #### 0 0071 #### [facility] [address] [place] [address], [facility] Chloride [Moles/Vol] 100 mmol/L Normal 98-107 The [facility] Comment on above: Performed By: #### 0 0071 #### [facility] [address] [place] [address], [place] CO2 [Moles/Vol] 30 mmol/L Normal 21-31 [facility] Comment on above: Performed By: #### 0 0071 #### [facility] [address] [place] [address], [facility] Creatinine [Mass/Vol] 0.71 mg/dL Normal 0.60-1.20 The [facility] Comment on above: Performed By: #### 0 0071 #### [facility] [address] [place] [address], [place] GFR/1.73 sq M predicted among blacks MDRD (S/P/Bld) [Vol rate/Area] mL/min/{1.73_m2} Normal >60 The [facility] Comment on above: Performed By: #### 0 0071 #### [facility] [address] [place] [address], [facility] GFR/1.73 sq M predicted among non-blacks MDRD (S/P/Bld) [Vol rate/Area] mL/min/{1.73_m2} Normal >60 The [facility] Comment on above: Performed By: #### 0 0071 #### [facility] [address] [place] [address], [facility] Glucose [Mass/Vol] 93 mg/dL Normal 70-[address] [facility] Comment on above: Performed By: #### 0 0071 #### [facility] [address] [place] [address], [facility] Potassium [Moles/Vol] 3.7 mmol/L Normal 3.5-5.1 The [facility] Comment on above: Performed By: #### 0 0071 #### [facility] [address] [place] [address], [facility] Sodium [Moles/Vol] 139 mmol/L Normal 136-[address] [facility] Comment on above: Performed By: #### 0 0071 #### [facility] [address] [place] [address], [facility] Urea nitrogen [Mass/Vol] 16 mg/dL Normal 7-25 The [facility] Comment on above: Performed By: #### 0 0071 #### [facility] [address] [place] [address], [facility] CBC COMPLETE BLOOD COUNTon 0 - Erythrocyte distribution width (RBC) [Ratio] 14.9 % Normal 11.5-15.0 The [facility] Comment on above: Performed By: #### 5 0608 #### [facility] [address] [place] [address], [facility] Hematocrit (Bld) [Volume fraction] 43.0 % Normal 36.0-45.0 The [facility] Comment on above: Performed By: #### 5 0608 #### [facility] [address] [place] [address], [facility] Hemoglobin (Bld) [Mass/Vol] 13.7 g/dL Normal 12.0-15.0 The [facility] Comment on above: Performed By: #### 5 0608 #### [facility] [address] [place] [address], [facility] MCH (RBC) [Entitic mass] 30.0 pg Normal 27.0-33.0 The [facility] Comment on above: Performed By: #### 5 0608 #### [facility] [address] [facility] [address], [facility] MCHC (RBC) [Mass/Vol] 31.9 g/dL Low 32.0-35.0 The [facility] Comment on above: Performed By: #### 5 0608 #### [facility] [address] [facility] [place] [address], [facility] MCV (RBC) [Entitic vol] 94.3 fL Normal 82.0-98.0 The [facility] Comment on above: Performed By: #### 5 0608 #### [facility] [address] [facility]. [address] Nucleated RBC/100 WBC (Bld) [Ratio] 0 % Normal 0-0 The [facility] Comment on above: Performed By: #### 5 0608 #### [facility] [address] [place] [address], [facility] PLAT CNT 270 10*3/uL Normal 150-400 The [facility] Comment on above: Performed By: #### 5 0608 #### [facility] [address] [facility] [place] [address], [facility] RBC (Bld) [#/Vol] 4.56 10*6/uL Normal 3.80-5.00 The [facility] Comment on above: Performed By: #### 5 0608 #### [facility] [address] [place] [address], [facility] WBC (Bld) [#/Vol] 9.44 10*3/uL Normal 4.00-10.60 [facility] Comment on above: Performed By: #### 5 0608 #### [facility] [address] [facility] [address] PROTHROMBIN TIMEon 9 INR Coag (PPP) [Relative time] 1.85 {INR} High 0.91-1.16 The [facility] Comment on above: Result Comment: ACCC P [...] 1995;108:231S-246S. Performed By: #### 5 6101 #### [facility] [address] [facility]. [address] PT Coag (PPP) [Time] 21.4 s High 12.3-14.8 The [facility] Comment on above: Result Comment: ALL RESULTS MUST BE INTERPRETED WITH RESPECT TO BLOOD DRAWING ARTIFACT OR DILUTION ERROR OF ANTICOAGULANT AT THE TIME OF SAMPLING. Performed By: #### 5 6101 #### [facility] [address] [facility] [address] Encounters Encounter Date Encounter Type Care Provider Facility Start: 12-21-2023 Orders Only Korina Oliver MD Work Phone: [facility] Start: 12-20-2023 Evaluation and management of inpatient AHMAD M TY [facility] Start: 11-01-2023 End: 11-01-2023 ambulatory EBER BUNDYCKER [facility] Start: 10-31-2023 End: 10-31-2023 ambulatory YAHIR BROTHERS Not Available Start: 09-05-2023 End: 09-05-2023 ambulatory YAHIR BROTHERS Not Available Start: 07-07-2023 End: 07-10-2023 ambulatory YAHIR BROTHERS Not Available Start: 05-23-2023 End: 05-23-2023 ambulatory RAMAN GOMEZ [facility] Start: 03-02-2023 End: 03-03-[address] DOCTOR LOYOLA Facility:[facility] Start: 02-19-2023 End: 02-19-[address] Start: 12-27-2022 End: 12-28-[address] YAHIR BROTHERS Facility:[facility] Start: 05-17-2022 End: 05-18-[address] YAHIR BROTHERS Facility:[facility] Start: 01-29-2019 End: 02-02-2019 Evaluation and management of inpatient YAHIR BROTHERS Facility:[facility] Procedures Date Procedure Procedure Detail Performing Clinician Start: 01-29-2019 FLUOROSCOPY OF LEFT HEART USING OTHER CONTRAST RAMAN GOMEZ Start: 01-29-2019 FLUOROSCOPY OF MULTI PLE CORONARY ARTERIES USING OTH [facility] RAMAN GOMEZ Start: 01-29-2019 MEASURE CARDIAC SAMP L \T\ PRESSURE, BILATERAL, PERC RAMAN GOMEZ Plan of Treatment Date Care Activity Detail Author Start: 10-29-2028 DTaP,Tdap and Td Vaccines (2 - Td or Tdap) DTaP,Tdap and Td Vaccines (2 - Td or Tdap) [facility] Start: 12-20-2024 Adult BMI Screening Adult BMI Screen ing [facility] Start: 12-20-2024 Tobacco Screening Tobacco Screening [facility] Start: 06-22-2023 COVID-19 Vaccine ( season) COVID-19 Vaccine () [facility] Start: 2017 Fall Risk Screening Fall Risk Screen ing [facility] Start: 1970 Adult BMI Follow Up Plan Adult BMI Follow Up Plan [facility] Start: 1964 Depression Screening Depression Scre ening [facility] Start: 1950 Medicare Annual Wellness Visit Medicare Annual Wellness Visit [facility] Immunizations Immunization Date Immunization Notes Care Provider Fa fernando 02-04-2021 COVID-19, mRNA, LNP- S, PF, 100mcg/0.5mL Dose Korina Oliver MD Work Phone: [facility] 01-07-2021 COVID-19, mRNA, LNP- S, PF, 100mcg/0.5mL Dose Korina Oliver MD Work Phone: [facility] 08-03-2019 pneumococcal conjuga te vaccine, 13 valent Korina Oliver MD Work Phone: [facility] Payers Date Payer Category Payer Unknown [employer] [id number] 2022-Present [phone] [address] [place] [address] [id number] 1959 Unknown [id number] 1959 Unknown [id number] 1952 Unknown [id number] 1952 Unknown [id number] 1952 Unknown [id number] 1952 Unknown [id number] 1952 Unknown [id number] 1952 Unknown [id number] 1952 Unknown [id number] 1952 Unknown [id number] Medicare [id number] Social History Date Type Detail Facility Start: [facility]23 [facility] End: 03-11-2002 History of tobacco use Current smoker [facility] End: 03-11-2002 History of tobacco use [facility] Start: 12-02-2020 End: 12-20-2023 Cigarettes smoked current (pack per day) - Reported 1 [facility] Start: 12-20-2023 Tobacco use and exposure Smoke less tobacco [facility] Start: 12-21-2023 Alcohol intake Ex-drinker (finding) [facility] Start: 12-02-2020 End: 12-20-2023 [facility] Has the [employer], or [employer] threatened to shut off services in your home in past 12Mo No [facility] In the past 12 month s, has lack of transportation kept you from medical appointments or from getting medications? No [facility] Start: 12-20-2023 Tobacco Comment quit 17 years ago [facility] Start: 1950 Sex Assigned At Not on file [facility] [employer] Goals Date Patient Goal Desired Activity /State Personal health goal Comment on above: Formatting of this n ote might be different from the original. Evaluation of progress towards goal: under assessment, pt prefers home with HHC vs SNF Progress note 11-01-2023 Note Date & Type [...] All other systems reviewed and are negative. [facility] Progress note 11-01-2023 Note Date & Type Note Facility 11-01-2023 Note Cardiovascular Medic [facility] SUBJECTIVE Chief Complaint Patient presents with Atrial Fibrillation Congestive Heart Failure Afia Gill is a 73 y.o. female here for follow-up. HPI Hx: *Atrial fibrillation *NSVT *Systolic heart failure *Pulmonary embolism in 2004 status post left total knee arthroplasty. *Heparin-induced thrombocytopenia. *Pulmonary hypertension by echocardiogram. *Obstructive sleep apnea, on CPAP. *Status post Kent filter. *Morbid obesity. *Continuous oxygen. *Abnormal stress [...] Permanent atrial fibrillation (CMS/HCC) HIT (heparin-induced thrombocytopenia) ([facility]/HCC) History of pulmonary embolism Morbid obesity (CMS/HCC) [...] disorder Hyperlipidemia Hypoventilation associated with obesity syndrome ([facility]) Lymphedema, not elsewhere classified Insomnia Major depressive disorder, single episode, unspecified Muscle weakness (generalized) Stage 3a chronic kidney disease ([facility]) Rheumatoid arthritis, unspecified ([facility]) Other abnormalities of breathing Osteoarthritis of right ankle and foot Stiffness of unspecified shoulder, not elsewhere classified Unspecified Escherichia coli (E. coli) as the cause of diseases classified elsewhere Ataxia, unspecified Chronic atrial fibrillation ([facility]) Peripheral vascular disease, unspecified ([facility]) Essential (primary) hypertension Unspecified atrial fibrillation ([facility]) Chronic systolic CHF (congestive heart failure), NYHA class 4 ([facility]) Other chronic pain Past Medical History: Diagnosis Date Atrial fibrillation ([facility]) CHF (congestive heart failure) ([facility]) Hypertension Pulmonary embolism ([facility]) Family History Problem Relation Name Age of [...] Disp: , Rfl (more content not included)... [facility] Progress note 05-23-2023 Note Date & Type Note Facility 05-23-2023 Note [place] [facility] Subjective Afia Gill is a 72 y.o. [...] CHF (congestive heart failure), NYHA class 4 ([facility]) Other chronic pain Family History Problem Relation [...] filling pressures. She (more content not included)... [facility] Progress note 02-19-2023 Note Date & Type [...] All other systems reviewed and are negative. [facility] Progress note 02-19-2023 Note Date & Type [...] Types: Cigarettes Smokeless tobacco: Never HPI 01/22/2019 Afia is referred from Dr. Mijares[facility] clinic [...] Obstructive sleep apnea, on CPAP. Status post Kent filter. Morbid obesity. She is currently on oxygen since December 20, 2018. Holter done to investigate palpitations showed atrial fibrillation with NSVT. Stress test 01/13/2019;1. Fixed versus minimally reversible perfusion defect of the anterior septal wall and apex. 2. Marked cardiomegaly and markedly low ejection fraction, 36%. 3. Dyskinesia of the apex with otherwise global moderate hypokinesis. Echocardiogram 2 (more content not included)... [facility] Instructions Note Date & Type Note Facility Instructions Not on filedocumented in this en counter [facility] Summary Purpose Family History No Family History Records FoundNo Family History Records FoundNo Family History Records FoundNo Family History Records FoundNo Family History Records Found Advance Directives No Advanced Directives Records FoundLatest Code Status on File Code Status Date Activated Date Inactivated Comments Full Code 12/20/2023 7:40 PM Code Status History Code Status Date Activated Date Inactivated Comments Full Code 03/11/2021 8:20 AM 03/12/2021 4:09 PM Full Code 07/31/2019 2:25 PM 08/03/2019 9:14 PM Hospital Course Note MR#: [id number] [facility] Pt. 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 [email or web address] provides no warranty or guarantee of the accuracy or completeness of information in this document.
--- OUTSIDE RECORDS SUMMARY | 2024-02-04 05:03 | XMS_ITS | CCD ---
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 Care Director Of Income Tax Name Role Phone YAHIR BROTHERS Referring Unavailable YAHIR BROTHERS Primary Care Unavailable AHMED, LAN Attending Unavailable AHMED LAN Admitting Unavailable [place] Procedure Practitioner Unavailab le UNKNOWN, PROVIDER Surgeon [...] Care Unavailable ANDREA, DR GAO Consulting Unavailable GLEN GARDNER, DR JEANETTE Armenta Consulting Unavailable Yahir Brothers MD Primary Care Provider RAND CRAWFORD Attending Unavailable YAHIR BROTHERS Primary Care Unavailable KORINA OLIVER Admitting Unavailable DANIEL BIRMINGHAM Consulting Unavailable DIVISION OF INFECTIOUS DISEASE, [facility] Consulting Unavailable YAYA KUMAR Consulting Unavailable [...] (1 source) Estrogens Drug Allergy 9 [facility] (1 source) heparin Drug Allergy 9 [facility] (2 sources) Penicillins; Translations: [PENICILLINS] Drug allergy (disorder) 9 [facility] (2 sources) pregabalin Drug Allergy 9 [facility] (6 sources) Bleach (Sodium Hypochlorite); Translations: [Bleach (Sodium Hypochlorite)] Propensity to adverse reactions (disorder) 9 [facility] (4 sources) Aztreonam; Translations: [ESTROGENS, CONJUGATED] Drug Allergy 9 [facility] (1 source) heparin Drug Allergy [facility] (5 sources) Penicillin; Translations: [PENICILLIN] Drug Allergy 9 [facility] (1 source) Misc-ENV; Translations: [Misc-ENV] Propensity to adverse reactions (disorder) [facility] (1 source) Estrogens, Conjugated (SHELTER) Drug Allergy 9 [facility] (4 sources) heparin; Translations: [HEPARIN (PORCINE)] Drug Allergy 9 [facility] (4 sources) pregabalin; Translations: [PREGABALIN] Drug Allergy 9 [facility] (3 sources) Other; Translations: [OTHER] Propensity to adverse reactions 1 Rash [facility] (1 source) heparin; Translations: [HEPARIN SODIUM, PORCINE] Drug Allergy 1 [facility] Medications Completed/Discontinued Medications Medication Drug [...] any current signs or symptoms of infection. [facility] 36 Call from Simran rodriguez that pt's wbc remains elevated. Explained to nurse to have pt follow up with Podiatry. Raysa will call for an appt today. [facility] Telephoneon 01-30-2024 Telephone [id number] Maximo Gill 1950 F Date Provider Department Center 01/30/2024 ANITA JONES [facility] Family History Problem Relation Age of Onset Heart attack Father Diabetes Father Hypertension Father Coronary artery disease Father Rheum arthritis Father Family Status - Relation Status Age at Father [facility] 01-25-2024 36 The patient is exhibiting leukocytosis based on labs obtained earlier today and available under Media. Can you contact her SNF to see if she is having any new or recurrent signs or symptoms of infection? [facility] Telephoneon 01-25-2024 Telephone [id number] Maximo Gill 1950 F Date Provider Department Center 01/25/2024 [facility]ITA J[facility] History Problem Relation Age of Onset Heart attack Father Diabetes Father Hypertension Father Coronary artery disease Father Rheum arthritis Father Family Status - Relation Status Age at Father [facility] 36on 01-23-2024 36 Message left for gilmer se Ugalde at the SNF that pt may end treatment 01/30 as scheduled and may have her picc line removed. [facility] Follow-Upon 01-23-2024 Follow-Up [id number] Maximo Gill tiffanie A 1950 F Date Provider Department Center 01/23/2024 ANITA JONES [facility] Family History Problem Relation Age of Onset Heart attack Father Diabetes Father Hypertension Father Coronary artery disease Father Rheum arthritis Father Family Status - Relation Status Age at Father Level of Service:93858 [place] OFFICE/OUTPATIENT ESTABLISHED MOD MDM 30 MIN Reason for Visit and Comments: Follow-up [816309] - Pt is here for evaluation of [...] and walk which were both difficult before. [facility] 36on 01-22-2024 36 I attempted to call [facility] to get an updated copy of this patient's labs, but the phone rang through without an answer. The patient is following up tomorrow. [facility] Telephoneon 01-22-2024 Telephone [id number] Casa,Sha tiffanie Elena 1950 F Date Provider Department Center 01/22/2024 ANITA JONES [facility] Family History Problem Relation Age of Onset Heart attack Father Diabetes Father Hypertension Father Coronary artery disease Father Rheum arthritis Father Family Status - Relation Status Age at Father [facility] Follow-Upon 01-11-2024 Follow-Up [id number] CasaMaximo Elena 1950 F Date Provider Department Center 01/11/2024 ANITA JONES [facility] Family History Problem Relation Age of Onset Heart attack Father Diabetes Father Hypertension Father Coronary artery disease Father Rheum arthritis Father Family Status - Relation Status Age at Father Level of Service:90663 [place] OFFICE/OUTPATIENT ESTABLISHED MOD MDM 30 MIN Reason for Visit and Comments: PPD Read [[id number]] - Follow up Toes feel better [facility] 36on 01-09-2024 36 Opat received. Call to [facility] and confirmed orders. Labs will be drawn 01/09. Staff was not aware of the appt today so the visit is rescheduled for 01/10. [facility] CBC AND AUTO DIFFon 12-28-19 24 ABSOLUTE BASOPHIL 0.1 X10E9/L Normal 0.0-0.2 [facility] Comment on above: Performed By: #### U A #### [facility] ([id number]) [address] [place] [address] 08102 ABSOLUTE NEUTROPHIL 9.5 X10E9/L High 1.5-6.6 [facility] Comment on above: Performed By: #### U A #### [facility] ([id number]) [address] [place] [address] 92681 Basophils/100 WBC (Bld) 0.5 % Normal [facility] Comment on above: Performed By: #### U A #### [facility] ([id number]) [address] [place] [address] 07430 Eosinophils (Bld) [#/Vol] 0.8 10*3/uL High 0.0-0.4 [facility] Comment on above: Performed By: #### U A #### [facility] ([id number]) [address] [place] [address] 00529 Eosinophils/100 WBC (Bld) 5.8 % Normal [facility] Comment on above: Performed By: #### U A #### [facility] ([id number]) [address] [place] [address] 23119 Erythrocyte distribution width (RBC) [Ratio] 13.6 % Normal 11.5-15.0 [facility] Comment on above: Performed By: #### U A #### [facility] ([id number]) [address] [place] [address] 47432 Hematocrit (Bld) [Volume fraction] 35.5 % Normal 35-47 [facility] Comment on above: Performed By: #### U A #### [facility] ([id number]) [address] [place] [address] 48379 Hemoglobin (Bld) [Mass/Vol] 11.9 g/dL Normal 11.7-15.5 [facility] Comment on above: Performed By: #### U A #### [facility] ([id number]) [address] [place] [address] 32739 Lymphocytes (Bld) [#/Vol] 2.6 10*3/uL Normal 1.0-3.5 [facility] Comment on above: Performed By: #### U A #### [facility] ([id number]) [address] [place] [address] 81134 Lymphocytes/100 WBC (Bld) 19.1 % Normal [facility] Comment on above: Performed By: #### U A #### [facility] ([id number]) [address] [place] [address] 43564 MCH (RBC) [Entitic mass] 28.7 pg Normal 27-34 [facility] Comment on above: Performed By: #### U A #### [facility] ([id number]) [address] [place] [address] 28261 MCHC (RBC) [Mass/Vol] 33.4 g/dL Normal 32-36 [facility] Comment on above: Performed By: #### U A #### [facility] ([id number]) [address] [place] [address] 00056 MCV (RBC) [Entitic vol] 86 fL Normal 80-100 [facility] Comment on above: Performed By: #### U A #### [facility] ([id number]) [address] [place] [address] 68345 Monocytes (Bld) [#/Vol] 0.7 10*3/uL Normal 0-0.9 [facility] Comment on above: Performed By: #### U A #### [facility] ([id number]) [address] [place] [address] 52434 Monocytes/100 WBC (Bld) 5.3 % Normal [facility] Comment on above: Performed By: #### U A #### [facility] ([id number]) [address] [place] [address] 96789 Neutrophils/100 WBC (Bld) 69.3 % Normal [facility] Comment on above: Performed By: #### U A #### [facility] ([id number]) [address] [place] [address] 09502 Platelet mean volume (Bld) [Entitic vol] 8.7 fL Normal 7-12 [facility] Comment on above: Performed By: #### U A #### [facility] ([id number]) [address] [place] [address] 74326 Platelets (Bld) [#/Vol] 335 10*3/uL Normal 150-450 [facility] Comment on above: Performed By: #### U A #### [facility] ([id number]) [address] [place] [address] 01110 RBC COUNT 4.13 X10E12/L Normal 3.80-5.20 [facility] Comment on above: Performed By: #### U A #### [facility] ([id number]) [address] [place] [address] 14954 WBC (Bld) [#/Vol] 13.7 10*3/uL High 4.0-11.0 [facility] Comment on above: Performed By: #### U A #### [facility] ([id number]) [address] [place] [address] [place] [address] COMPREHENSIVE METABOLIC PANE Tyrone 12-28-2023 Albumin [Mass/Vol] 3.1 g/dL Low 3.2-5.3 [facility] Comment on above: Performed By: #### U A #### [facility] ([id number]) [address] [place] [address] [place] [address] ALP [Catalytic activity/Vol] 68 U/L Normal 39-130 [facility] Comment on above: Performed By: #### U A #### [facility] ([id number]) [address] [place] [address] 51623 ALT [Catalytic activity/Vol] 21 U/L Normal 0-31 [facility] Comment on above: Performed By: #### U A #### [facility] ([id number]) [address] [place] [address] 99866 Anion gap [Moles/Vol] 10 mmol/L Normal 5-15 [facility] Comment on above: Performed By: #### U A #### [facility] ([id number]) [address] [place] [address] 18403 AST [Catalytic activity/Vol] 21 U/L Normal 0-41 [facility] Comment on above: Performed By: #### U A #### [facility] ([id number]) [address] [place] [address] [place] [address] Bilirubin [Mass/Vol] 0.4 mg/dL Normal 0.3-1.2 [facility] Comment on above: Performed By: #### U A #### [facility] ([id number]) [address] [place] [address] 14126 Calcium [Mass/Vol] 8.6 mg/dL Normal 8.5-10.5 [facility] Comment on above: Performed By: #### U A #### [facility] ([id number]) [address] [place] [address] 41462 Chloride [Moles/Vol] 98 mmol/L Normal 98-109 [facility] Comment on above: Performed By: #### U A #### [facility] ([id number]) [address] [place] [address] 70261 CO2 [Moles/Vol] 31 mmol/L Normal 22-32 [facility] Comment on above: Performed By: #### U A #### [facility] ([id number]) [address] [place] [address] 31810 Creatinine [Mass/Vol] 0.72 mg/dL Normal 0.40-1.00 [facility] Comment on above: Result Comment: METH OD TRACEABLE TO IDMS STANDARD Performed By: #### U A #### [facility] ([id number]) [address] [place] [address] 49783 GFR/1.73 sq M.predicted among non-blacks MDRD (S/P/Bld) [Vol rate/Area] 89 mL/min/{1.73_m2} Normal >59 [facility] Comment on above: Result Comment: Reported eGFR is based on the CKD-EPI 2020 equation that does not use a race coefficient. Performed By: #### U A #### [facility] ([id number]) [address] [place] [address] 86000 Glucose [Mass/Vol] 123 mg/dL High 65-99 [facility] Comment on above: Performed By: #### U A #### [facility] ([id number]) [address] [place] [address] 77564 Potassium [Moles/Vol] 3.7 mmol/L Normal 3.5-5.0 [facility] Comment on above: Performed By: #### U A #### [facility] ([id number]) [address] [place] [address] 97365 Protein [Mass/Vol] 7.1 g/dL Normal 6.0-8.0 [facility] Comment on above: Performed By: #### U A #### [facility] ([id number]) [address] [place] [address] 05500 Sodium [Moles/Vol] 139 mmol/L Normal 134-146 [facility] Comment on above: Performed By: #### U A #### [facility] ([id number]) [address] [place] [address] 26265 Urea nitrogen [Mass/Vol] 16 mg/dL Normal 5-27 [facility] Comment on above: Performed By: #### U A #### [facility] ([id number]) [address] [place] [address] 14174 MAGNESIUMon 12-28-2023 Magnesium [Mass/Vol] 2.3 mg/dL Normal 1.8-2.6 [facility] Comment on above: Performed By: #### U A #### [facility] ([id number]) [address] [place] [address] 53503 PROTIME AND INRon 12-28-2023 INR Coag (PPP) [Relative time] 2.5 {INR} High 0.8-1.1 [facility] Comment on above: Performed By: #### U A #### [facility] ([id number]) [address] [place] [address] 35072 PT Coag (PPP) [Time] 28.0 s High 9.8-13.2 [facility] Comment on above: Result Comment: NEW REFERENCE RANGE Performed By: #### U A #### [facility] ([id number]) [address] [place] [address] 82281 Vancomycin trough [Mass/Vol] on 03-08-2024 VANCOMYCIN TROUGH 26.7 ug/mL Critically high 5.0-20.0 [facility] Comment on above: Performed By: #### U A #### [facility] ([id number]) [address] [place] [address] 37064 CBC AND AUTO DIFFon 12-27-19 24 ABSOLUTE BASOPHIL 0.0 X10E9/L Normal 0.0-0.2 [facility] Comment on above: Performed By: #### Chanel ERICKSON CMP, 1986-02 #### [facility] ([id number]) [address] [place] [address] 74296 #### 40832-4 #### [facility] ([id number]) [address] [place] [address] ABSOLUTE NEUTROPHIL 8.9 X10E9/L High 1.5-6.6 [facility] Comment on above: Performed By: #### Chanel ERICKSON [facility], 1986-02 #### [facility] ([id number]) [address] [place] [address] 68365 #### 78519-3 #### [facility] ([id number]) [address], [address] [place] [address] Basophils/100 WBC (Bld) 0.3 % Normal [facility] Comment on above: Performed By: #### Chanel ERICKSON CMP, 1986-02 #### [facility] ([id number]) [address] [place] [address] 74844 #### 32310-6 #### [facility] ([id number]) [address] [place] [address] Eosinophils (Bld) [#/Vol] 0.8 10*3/uL High 0.0-0.4 [facility] Comment on above: Performed By: #### Chanel ERICKSON CMP, 1986-02 #### [facility] ([id number]) [address] [place] [address] 84943 #### 46183-2 #### [facility] ([id number]) [address] [facility] [facility] [address] [place] [address] Eosinophils/100 WBC (Bld) 6.1 % Normal [facility] Comment on above: Performed By: #### Chanel ERICKSON CMP, 1986-02 #### [facility] ([id number]) [address] [place] [address] 86638 #### 71531-3 #### [facility] ([id number]) [address] [facility] [place] [address] Erythrocyte distribution width (RBC) [Ratio] 13.7 % Normal 11.5-15.0 [facility] Comment on above: Performed By: #### Chanel ERICKSON CMP, 1986-02 #### [facility] ([id number]) [address] [place] [address] 20793 #### 62867-5 #### [facility] ([id number]) [address] [facility] [facility] [address] [place] [address] Hematocrit (Bld) [Volume fraction] 34.5 % Low 35-47 [facility] Comment on above: Performed By: #### Chanel ERICKSON CMP, 1986-02 #### [facility] ([id number]) [address] [place] [address] 58622 #### 98829-5 #### [facility] ([id number]) [address] [facility] [place] [address] Hemoglobin (Bld) [Mass/Vol] 11.5 g/dL Low 11.7-15.5 [facility] Comment on above: Performed By: #### Chanel ERICKSON CMP, 1986-02 #### [facility] ([id number]) [address] [place] [address] 69499 #### 43855-3 #### [facility] ([id number]) [address] [place] [address] Lymphocytes (Bld) [#/Vol] 2.4 10*3/uL Normal 1.0-3.5 [facility] Comment on above: Performed By: #### Chanel ERICKSON CMP, 1986-02 #### [facility] ([id number]) [address] [place] [address] 73340 #### 79984-5 #### [facility] ([id number]) [address] [facility] [place] [address] Lymphocytes/100 WBC (Bld) 18.4 % Normal [facility] Comment on above: Performed By: #### Chanel ERICKSON CMP, 1986-02 #### [facility] ([id number]) [address] [place], [place] [address] #### 80113-9 #### [facility] ([id number]) [address] [facility] [facility] [place] [address] MCH (RBC) [Entitic mass] 28.8 pg Normal 27-34 [facility] Comment on above: Performed By: #### Chanel ERICKSON CMP, 1986-02 #### [facility] ([id number]) [address] [place] [address] 85128 #### 89958-8 #### [facility] ([id number]) [address], [address] [place] [address] MCHC (RBC) [Mass/Vol] 33.3 g/dL Normal 32-36 [facility] Comment on above: Performed By: #### Chanel ERICKSON CMP, 1986-02 #### [facility] ([id number]) [address] [place] [address] 43921 #### 20959-8 #### [facility] ([id number]) [address], [address] [place] [address] MCV (RBC) [Entitic vol] 87 fL Normal 80-100 [facility] Comment on above: Performed By: #### Chanel ERICKSON CMP, 1986-02 #### [facility] ([id number]) [address] [place] [address] 90233 #### 28999-7 #### [facility] ([id number]) [address], [address] [place] [address] Monocytes (Bld) [#/Vol] 0.9 10*3/uL Normal 0-0.9 [facility] Comment on above: Performed By: #### Chanel ERICKSON CMP, 1986-02 #### [facility] ([id number]) [address] [place] [address] 64088 #### 55968-7 #### [facility] ([id number]) [address] [place] [address] Monocytes/100 WBC (Bld) 7.1 % Normal [facility] Comment on above: Performed By: #### Chanel ERICKSON CMP, 1986-02 #### [facility] ([id number]) [address] [place] [address] 83502 #### 93178-8 #### [facility] ([id number]) [address] [place] [address] Neutrophils/100 WBC (Bld) 68.1 % Normal [facility] Comment on above: Performed By: #### Chanel ERICKSON CMP, 1986-02 #### [facility] ([id number]) [address] [place] [address] 79114 #### 21430-8 #### [facility] ([id number]) [address] [place] [address] Platelet mean volume (Bld) [Entitic vol] 8.7 fL Normal 7-12 [facility] Comment on above: Performed By: #### Chanel ERICKSON CMP, 1986-02 #### [facility] ([id number]) [address] [place] [address] 07779 #### 60607-1 #### [facility] ([id number]) [address] [place] [address] Platelets (Bld) [#/Vol] 323 10*3/uL Normal 150-450 [facility] Comment on above: Performed By: #### Chanel ERICKSON CMP, 1986-02 #### [facility] ([id number]) [address] [place] [address] 39329 #### 25260-9 #### [facility] ([id number]) [address] [place] [address] RBC COUNT 3.98 X10E12/L Normal 3.80-5.20 [facility] Comment on above: Performed By: #### Chanel ERICKSON CMP, 1986-02 #### [facility] ([id number]) [address] [place] [address] 27695 #### 01970-9 #### [facility] ([id number]) [address] [place] [address] WBC (Bld) [#/Vol] 13.1 10*3/uL High 4.0-11.0 [facility] Comment on above: Performed By: #### Chanel ERICKSON CMP, 1986-02 #### [facility] ([id number]) [address] [place] [address] 89252 #### 35727-6 #### [facility] ([id number]) [address] [place] [address] COMPREHENSIVE METABOLIC PANE Tyrone 12-27-2023 Albumin [Mass/Vol] 3.0 g/dL Low 3.2-5.3 [facility] Comment on above: Performed By: #### Chanel ERICKSON CMP, 1986-02 #### [facility] ([id number]) [address] [place] [address] 04208 #### 46056-8 #### [facility] ([id number]) [address] [place] [address] ALP [Catalytic activity/Vol] 68 U/L Normal 39-130 [facility] Comment on above: Performed By: #### Chanel ERICKSON CMP, 1986-02 #### [facility] ([id number]) [address] [place] [address] 50797 #### 38538-7 #### [facility] ([id number]) [address] [place] [address] ALT [Catalytic activity/Vol] 17 U/L Normal 0-31 [facility] Comment on above: Performed By: #### Chanel ERICKSON CMP, 1986-02 #### [facility] ([id number]) [address] [place] [address] 61124 #### 38137-8 #### [facility] ([id number]) [address] [place] [address] Anion gap [Moles/Vol] 8 mmol/L Normal 5-15 [facility] Comment on above: Performed By: #### C BCA, CMP, 1988-02 #### [facility] ([id number]) [address] [place] [address] 44050 #### 51700-7 #### [facility] ([id number]) [address] [place] [address] AST [Catalytic activity/Vol] 16 U/L Normal 0-41 [facility] Comment on above: Performed By: #### C BCA, CMP, 1988-02 #### [facility] ([id number]) [address] [place] [address] 21330 #### 70960-5 #### [facility] ([id number]) [address] [place] [address] Bilirubin [Mass/Vol] 0.5 mg/dL Normal 0.3-1.2 [facility] Comment on above: Performed By: #### C BCA, CMP, 1988-02 #### [facility] ([id number]) [address] [place] [address] 54758 #### 51920-8 #### [facility] ([id number]) [address] [place] [address] Calcium [Mass/Vol] 8.3 mg/dL Low 8.5-10.5 [facility] Comment on above: Performed By: #### C BCA, CMP, 1988-02 #### [facility] ([id number]) [address] [place] [address] 50610 #### 09247-7 #### [facility] ([id number]) [address] [place] [address] Chloride [Moles/Vol] 99 mmol/L Normal 98-109 [facility] Comment on above: Performed By: #### C BCA, CMP, 1988-02 #### [facility] ([id number]) [address] [place] [address] 06185 #### 70356-5 #### [facility] ([id number]) [address] [place] [address] CO2 [Moles/Vol] 31 mmol/L Normal 22-32 [facility] Comment on above: Performed By: #### C BCA, CMP, 1988-02 #### [facility] ([id number]) [address] [place] [address] 21426 #### 58007-6 #### [facility] ([id number]) [address] [place] [address] Creatinine [Mass/Vol] 0.71 mg/dL Normal 0.40-1.00 [facility] Comment on above: Result Comment: METH OD TRACEABLE TO IDMS STANDARD Performed By: #### C DRE [facility] [place], 1986-02 #### [facility] ([id number]) [address] [place] [address] 01338 #### 20781-2 #### [facility] ([id number]) [address] [place] [address] eGFR (CKD-EPI) NON-RACE DEPENDENT >90 Normal >59 [facility] Comment on above: Result Comment: Reported eGFR is based on the CKD-EPI 2020 equation that does not use a race coefficient. Performed By: #### C DRE [facility], 1988-02 #### [facility] ([id number]) [address] [place] [address] 61707 #### 27103-6 #### [facility] ([id number]) [address] [place] [address] Glucose [Mass/Vol] 119 mg/dL High 65-99 [facility] Comment on above: Performed By: #### C DRE [facility], 1988-02 #### [facility] ([id number]) [address] [place] [address] 12357 #### 75594-0 #### [facility] ([id number]) [address] [place] [address] Potassium [Moles/Vol] 3.6 mmol/L Normal 3.5-5.0 [facility] Comment on above: Performed By: #### Chanel ERICKSON, [facility], 1988-02 #### [facility] ([id number]) [address] [place] [address] 87430 #### 55594-0 #### [facility] ([id number]) [address] [place] [address] Protein [Mass/Vol] 7.0 g/dL Normal 6.0-8.0 [facility] Comment on above: Performed By: #### C DRE [facility], 1988-02 #### [facility] ([id number]) [address] [place] [address] 91345 #### 27480-5 #### [facility] ([id number]) [address] [place] [address] Sodium [Moles/Vol] 138 mmol/L Normal 134-146 [facility] Comment on above: Performed By: #### Chanel ERICKSON [facility], 1988-02 #### [facility] ([id number]) [address] [place] [address] 76838 #### 81610-1 #### [facility] ([id number]) [address], [address] [place] [address] Urea nitrogen [Mass/Vol] 18 mg/dL Normal 5-27 [facility] Comment on above: Performed By: #### Chanel ERICKSON [facility], 1988-02 #### [facility] ([id number]) [address] [place] [address] 08593 #### 35930-1 #### [facility] ([id number]) [address] [place] [address] Glucose Glucometer (BldC) [M ass/Vol]on 12-27-2023 Glucose [Mass/Vol] 149 mg/dL High 65-99 [facility] Glucose [Mass/Vol] 156 mg/dL High 65-99 [facility] Glucose [Mass/Vol] 181 mg/dL High 65-99 [facility] MAGNESIUMon 12-27-2023 Magnesium [Mass/Vol] 2.3 mg/dL Normal 1.8-2.6 [facility] Comment on above: Performed By: #### U A #### [facility] ([id number]) [address] [place] [address] PROTIME AND INRon 12-27-2023 INR Coag (PPP) [Relative time] 2.9 {INR} High 0.8-1.1 [facility] Comment on above: Performed By: #### Chanel ERICKSON CMP, 1986-02 #### [facility] ([id number]) [address] [place] [address] #### 83311-9 #### [facility] ([id number]) [facility], [address] [place] [address] PT Coag (PPP) [Time] 32.6 s High 9.8-13.2 [facility] Comment on above: Result Comment: NEW REFERENCE RANGE Performed By: #### Chanel ERICKSON CMP, 1986-02 #### [facility] ([id number]) [address] [place] [address] 92763 #### 82465-2 #### [facility] ([id number]) [address] [facility], [address] [place] [address] CBC AND AUTO DIFFon 12-26-19 24 ABSOLUTE BASOPHIL 0.1 X10E9/L Normal 0.0-0.2 [facility] Comment on above: Performed By: #### Chanel ERICKSON CMP, 1986-02 #### [facility] ([id number]) [address] [place] [address] 86678 #### 02108-0 #### [facility] ([id number]) [address] [facility], [address] [place] [address] ABSOLUTE NEUTROPHIL 11.1 X10E9/L High 1.5-6.6 [facility] Comment on above: Performed By: #### Chanel ERICKSON [facility], 1988-02 #### [facility] ([id number]) [address] [place] [address] 72761 #### 13667-1 #### [facility] ([id number]) [address] [place] [address] Basophils/100 WBC (Bld) 0.4 % Normal [facility] Comment on above: Performed By: #### Chanel ERICKSON [facility], 1988-02 #### [facility] ([id number]) [address] [place] [address] 21816 #### 82096-3 #### [facility] ([id number]) [address] [place] [address] Eosinophils (Bld) [#/Vol] 0.8 10*3/uL High 0.0-0.4 [facility] Comment on above: Performed By: #### Chanel ERICKSON [facility], 1988-02 #### [facility] ([id number]) [address] [place] [address] 87564 #### 80313-8 #### [facility] ([id number]) [address] [place] [address] Eosinophils/100 WBC (Bld) 5.4 % Normal [facility] Comment on above: Performed By: #### Chanel ERICKSON [facility], 1988-02 #### [facility] ([id number]) [address] [place] [address] 81164 #### 78010-3 #### [facility] ([id number]) [address] [place] [address] Erythrocyte distribution width (RBC) [Ratio] 13.9 % Normal 11.5-15.0 [facility] Comment on above: Performed By: #### Chanel ERICKSON CMP, 1986-02 #### [facility] ([id number]) [address] [place] [address] 21343 #### 43478-4 #### [facility] ([id number]) [address], [address] [place] [address] Hematocrit (Bld) [Volume fraction] 35.9 % Normal 35-47 [facility] Comment on above: Performed By: #### Chanel ERICKSON CMP, 1986-02 #### [facility] ([id number]) [address] [place] [address] 44615 #### 35289-5 #### [facility] ([id number]) [address] [place] [address] Hemoglobin (Bld) [Mass/Vol] 11.7 g/dL Normal 11.7-15.5 [facility] Comment on above: Performed By: #### Chanel ERICKSON CMP, 1986-02 #### [facility] ([id number]) [address] [place] [address] 14847 #### 56962-4 #### [facility] ([id number]) [address] [place] [address] Lymphocytes (Bld) [#/Vol] 2.6 10*3/uL Normal 1.0-3.5 [facility] Comment on above: Performed By: #### Chanel ERICKSON CMP, 1986-02 #### [facility] ([id number]) [address] [place] [address] 44081 #### 60180-8 #### [facility] ([id number]) [address] [place] [address] Lymphocytes/100 WBC (Bld) 16.6 % Normal [facility] Comment on above: Performed By: #### Chanel ERICKSON, [facility], 1988-02 #### [facility] ([id number]) [address] [place] [address] 89294 #### 18406-2 #### [facility] ([id number]) [address], [address] [place] [address] MCH (RBC) [Entitic mass] 28.2 pg Normal 27-34 [facility] Comment on above: Performed By: #### Chanel ERICKSON, CMP, 1986-02 #### [facility] ([id number]) [address] [place] [address] 91196 #### 55529-4 #### [facility] ([id number]) [address] [place] [address] MCHC (RBC) [Mass/Vol] 32.7 g/dL Normal 32-36 [facility] Comment on above: Performed By: #### Chanel ERICKSON [facility], 1988-02 #### [facility] ([id number]) [address] [place] [address] 11740 #### 29783-5 #### [facility] ([id number]) [address] [place] [address] MCV (RBC) [Entitic vol] 86 fL Normal 80-100 [facility] Comment on above: Performed By: #### Chanel ERICKSON, CMP, 1986-02 #### [facility] ([id number]) [address] [place] [address] 12790 #### 15036-7 #### [facility] ([id number]) [address] [place] [address] Monocytes (Bld) [#/Vol] 0.9 10*3/uL Normal 0-0.9 [facility] Comment on above: Performed By: #### Chanel ERICKSON CMP, 1986-02 #### [facility] ([id number]) [address] [place] [address] 16461 #### 78317-5 #### [facility] ([id number]) [address] [place] [address] Monocytes/100 WBC (Bld) 5.9 % Normal [facility] Comment on above: Performed By: #### Chanel ERICKSON CMP, 1986-02 #### [facility] ([id number]) [address] [place] [address] 29633 #### 49614-2 #### [facility] ([id number]) [address], [address] [place] [address] Neutrophils/100 WBC (Bld) 71.7 % Normal [facility] Comment on above: Performed By: #### Chanel ERICKSON CMP, 1986-02 #### [facility] ([id number]) [address] [place] [address] 52261 #### 07449-4 #### [facility] ([id number]) [address], [address] [place] [address] Platelet mean volume (Bld) [Entitic vol] 8.6 fL Normal 7-12 [facility] Comment on above: Performed By: #### Chanel ERICKSON CMP, 1986-02 #### [facility] ([id number]) [address] [place] [address] 81048 #### 31890-5 #### [facility] ([id number]) [address], [address] [place] [address] Platelets (Bld) [#/Vol] 338 10*3/uL Normal 150-450 [facility] Comment on above: Performed By: #### Chanel ERICKSON CMP, 1986-02 #### [facility] ([id number]) [address] [place] [address] 13857 #### 02731-2 #### [facility] ([id number]) [address] [place] [address], [address] [place] [address] RBC COUNT 4.16 X10E12/L Normal 3.80-5.20 [facility] Comment on above: Performed By: #### Chanel ERICKSON CMP, 1986-02 #### [facility] ([id number]) [address] [place] [address] 84332 #### 91341-2 #### [facility] ([id number]) [address] [place] [address], [address] [place] [address] WBC (Bld) [#/Vol] 15.5 10*3/uL High 4.0-11.0 [facility] Comment on above: Performed By: #### Chanel ERICKSON CMP, 1986-02 #### [facility] ([id number]) [address] [place] [address] 28245 #### 65586-6 #### [facility] ([id number]) [address] [place] [address], [address] [place] [address] COMPREHENSIVE METABOLIC PANE [place] 12-26-2023 Albumin [Mass/Vol] 3.2 g/dL Normal 3.2-5.3 [facility] Comment on above: Performed By: #### Chanel BCA CMP, 1986-02 #### [facility] ([id number]) [address] [place] [address] 10237 #### 50709-1 #### [facility] ([id number]) [address] [place] [address], [address] [place] [address] ALP [Catalytic activity/Vol] 69 U/L Normal 39-130 [facility] Comment on above: Performed By: #### Chanel BCA CMP, 1986-02 #### [facility] ([id number]) [address] [place] [address] 21477 #### 00816-9 #### [facility] ([id number]) [address] [facility], [address] [place] [address] ALT [Catalytic activity/Vol] 16 U/L Normal 0-31 [facility] Comment on above: Performed By: #### Chanel ERICKSON CMP, 1986-02 #### [facility] ([id number]) [address] [place] [address] 59937 #### 47714-0 #### [facility] ([id number]) [address] [facility], [address] [place] [address] Anion gap [Moles/Vol] 10 mmol/L Normal 5-15 [facility] Comment on above: Performed By: #### Chanel ERICKSON CMP, 1986-02 #### [facility] ([id number]) [address] [place] [address] 05311 #### 80361-8 #### [facility] ([id number]) [address] [facility], [address] [place] [address] AST [Catalytic activity/Vol] 17 U/L Normal 0-41 [facility] Comment on above: Performed By: #### Chanel ERICKSON CMP, 1986-02 #### [facility] ([id number]) [address] [place] [address] 52482 #### 53630-1 #### [facility] ([id number]) [address] [facility], [address] [place] [address] Bilirubin [Mass/Vol] 0.4 mg/dL Normal 0.3-1.2 [facility] Comment on above: Performed By: #### Chanel BCA, CMP, 1986-02 #### [facility] ([id number]) [address] [place] [address] 53969 #### 99219-8 #### [facility] ([id number]) [address] [place] [address] Calcium [Mass/Vol] 8.7 mg/dL Normal 8.5-10.5 [facility] Comment on above: Performed By: #### C SEAN ERICKSON, 1986-02 #### [facility] ([id number]) [address] [place] [address] 43313 #### 70262-0 #### [facility] ([id number]) [address] [place] [address] Chloride [Moles/Vol] 98 mmol/L Normal 98-109 [facility] Comment on above: Performed By: #### C SEAN ERICKSON, 1986-02 #### [facility] ([id number]) [address] [place] [address] 30223 #### 93818-0 #### [facility] ([id number]) [address] [facility], [address] [place] [address] CO2 [Moles/Vol] 31 mmol/L Normal 22-32 [facility] Comment on above: Performed By: #### C SEAN ERICKSON, 1986-02 #### [facility] ([id number]) [address] [place] [address] 17332 #### 34602-8 #### [facility] ([id number]) [address] [place] [address] Creatinine [Mass/Vol] 0.78 mg/dL Normal 0.40-1.00 [facility] Comment on above: Result Comment: METH OD TRACEABLE TO IDMS STANDARD Performed By: #### C SEAN ERICKSON, 1986-02 #### [facility] ([id number]) [address] [place] [address] 80600 #### 89106-7 #### [facility] ([id number]) [address] [place] [address] GFR/1.73 sq M.predicted among non-blacks MDRD (S/P/Bld) [Vol rate/Area] 81 mL/min/{1.73_m2} Normal >59 [facility] Comment on above: Result Comment: Reported eGFR is based on the CKD-EPI 2020 equation that does not use a race coefficient. Performed By: #### Chanel ERICKSON CMP, 1986-02 #### [facility] ([id number]) [address] [place] [address] 20235 #### 33106-0 #### [facility] ([id number]) [address] [place] [address] Glucose [Mass/Vol] 129 mg/dL High 65-99 [facility] Comment on above: Performed By: #### Chanel ERICKSON CMP, 1986-02 #### [facility] ([id number]) [address] [place] [address] 50412 #### 56801-9 #### [facility] ([id number]) [address] [place] [address] Potassium [Moles/Vol] 3.8 mmol/L Normal 3.5-5.0 [facility] Comment on above: Performed By: #### Chanel ERICKSON CMP, 1986-02 #### [facility] ([id number]) [address] [place] [address] 06113 #### 83699-3 #### [facility] ([id number]) [address] [place] [address] Protein [Mass/Vol] 7.3 g/dL Normal 6.0-8.0 [facility] Comment on above: Performed By: #### Chanel ERICKSON CMP, 1986-02 #### [facility] ([id number]) [address] [place] [address] 46506 #### 61787-2 #### [facility] ([id number]) [address] [place] [address] Sodium [Moles/Vol] 139 mmol/L Normal 134-146 [facility] Comment on above: Performed By: #### Chanel ERICKSON CMP, 1986-02 #### [facility] ([id number]) [address] [place] [address] 44296 #### 35318-1 #### [facility] ([id number]) [address] [facility], [address] [place] [address] Urea nitrogen [Mass/Vol] 19 mg/dL Normal 5-27 [facility] Comment on above: Performed By: #### Chanel ERICKSON CMP, 1986-02 #### [facility] ([id number]) [address] [place] [address] 28261 #### 32209-3 #### [facility] ([id number]) [address] [facility], [address] [place] [address] Glucose Glucometer (BldC) [M ass/Vol]on 12-26-2023 Glucose [Mass/Vol] 146 mg/dL High 65-99 [facility] Glucose [Mass/Vol] 182 mg/dL High 65-99 [facility] Glucose [Mass/Vol] 108 mg/dL High 65-99 [facility] MAGNESIUMon 12-26-2023 Magnesium [Mass/Vol] 2.3 mg/dL Normal 1.8-2.6 [facility] Comment on above: Performed By: #### Chanel ERICKSON CMP, 1986-02 #### [facility] ([id number]) [address] [place] [address] 78005 #### 52862-5 #### [facility] ([id number]) [address] [place] [address] MR FOOT RT W WO CONTon 12-25 [...] on 12/26/2023 12:57 PM Normal [facility] PROTIME AND INRon 12-26-2023 INR Coag (PPP) [Relative time] 3.0 {INR} High 0.8-1.1 [facility] Comment on above: Performed By: #### C DRE [facility], 1987- #### [facility] ([id number]) [address] [facility], [place] [address] #### 20687-6 #### [facility] ([id number]) [address] [facility], [address] [place] [address] PT Coag (PPP) [Time] 33.3 s High 9.8-13.2 [facility] Comment on above: Result Comment: NEW REFERENCE RANGE Performed By: #### Chanel ERICKSON CMP, 1986-02 #### [facility] ([id number]) [address] [place] [address] 02083 #### 39613-9 #### [facility] ([id number]) [address] [place] [address] Vancomycin trough [Mass/Vol] on 12-26-2023 VANCOMYCIN TROUGH 11.6 ug/mL Normal 5.0-20.[address] [facility] Comment on above: Performed By: #### Chanel ERICKSON [facility], 1988-02 #### [facility] ([id number]) [address] [place] [address] 04675 #### 18603-0 #### [facility] ([id number]) [address] [facility], [address] [place] [address] CBC AND AUTO DIFFon 12-25-19 ABSOLUTE BASOPHIL 0.1 X10E9/L Normal 0.0-0.2 [facility] Comment on above: Performed By: #### Chanel ERICKSON [facility], 1988-02 #### [facility] ([id number]) [address] [place] [address] 23032 #### 21349-7 #### [facility] ([id number]) [address] [facility], [address] [place] [address] ABSOLUTE NEUTROPHIL 9.4 X10E9/L High 1.5-6.6 [facility] Comment on above: Performed By: #### Chanel ERICKSON CMP, 1986-02 #### [facility] ([id number]) [address] [place] [address] 99371 #### 05075-9 #### [facility] ([id number]) [address] [facility], [address] [place] [address] Basophils/100 WBC (Bld) 0.4 % Normal [facility] Comment on above: Performed By: #### Chanel ERICKSON CMP, 1986-02 #### [facility] ([id number]) [address] [place] [address] 40406 #### 25911-5 #### [facility] ([id number]) [address] [place] [address] Eosinophils (Bld) [#/Vol] 0.7 10*3/uL High 0.0-0.4 [facility] Comment on above: Performed By: #### Chanel ERICKSON CMP, 1986-02 #### [facility] ([id number]) [address] [place] [address] 20971 #### 64931-8 #### [facility] ([id number]) [address], [facility] [address] [place] [address] Eosinophils/100 WBC (Bld) 5.3 % Normal [facility] Comment on above: Performed By: #### Chanel ERICKSON CMP, 1986-02 #### [facility] ([id number]) [address] [place] [address] 08416 #### 48575-6 #### [facility] ([id number]) [address], [facility] [address] [place] [address] Erythrocyte distribution width (RBC) [Ratio] 13.7 % Normal 11.5-15.0 [facility] Comment on above: Performed By: #### Chanel ERICKSON CMP, 1986-02 #### [facility] ([id number]) [address] [place] [address] 88117 #### 46591-2 #### [facility] ([id number]) [address] [place] [address] Hematocrit (Bld) [Volume fraction] 37.8 % Normal 35-47 [facility] Comment on above: Performed By: #### Chanel ERICKSON CMP, 1986-02 #### [facility] ([id number]) [address] [place] [address] 35941 #### 04257-1 #### [facility] ([id number]) [address] [place] [address] Hemoglobin (Bld) [Mass/Vol] 12.6 g/dL Normal 11.7-15.5 [facility] Comment on above: Performed By: #### Chanel ERICKSON CMP, 1986-02 #### [facility] ([id number]) [address] [place] [address] 83017 #### 81100-7 #### [facility] ([id number]) [address] [place] [address] Lymphocytes (Bld) [#/Vol] 2.4 10*3/uL Normal 1.0-3.5 [facility] Comment on above: Performed By: #### Chanel ERICKSON CMP, 1986-02 #### [facility] ([id number]) [address] [place] [address] 38037 #### 81506-7 #### [facility] ([id number]) [address] [place] [address] Lymphocytes/100 WBC (Bld) 17.5 % Normal [facility] Comment on above: Performed By: #### Chanel ERICKSON CMP, 1986-02 #### [facility] ([id number]) [address] [place] [address] 30079 #### 84315-7 #### [facility] ([id number]) [address] [place] [address] MCH (RBC) [Entitic mass] 28.8 pg Normal 27-34 [facility] Comment on above: Performed By: #### Chanel ERICKSON, CMP, 1986-02 #### [facility] ([id number]) [address] [place] [address] 50394 #### 60540-5 #### [facility] ([id number]) [address] [place] [address] MCHC (RBC) [Mass/Vol] 33.4 g/dL Normal 32-36 [facility] Comment on above: Performed By: #### Chanel ERICKSON, CMP, 1986-02 #### [facility] ([id number]) [address] [place] [address] #### [id number] #### [facility] ([id number]) [address], [address] [place] [address] MCV (RBC) [Entitic vol] 86 fL Normal 80-100 [facility] Comment on above: Performed By: #### Chanel ERICKSON, CMP, 1986-02 #### [facility] ([id number]) [address] [place] [address] #### [id number] #### [facility] ([id number]) [address] [place] [address] Monocytes (Bld) [#/Vol] 1.1 10*3/uL High 0-0.9 [facility] Comment on above: Performed By: #### Chanel ERICKSON, CMP, 1986-02 #### [facility] ([id number]) [address] [place] [address] #### [id number] #### [facility] ([id number]) [address] [place] [address] Monocytes/100 WBC (Bld) 8.0 % Normal [facility] Comment on above: Performed By: #### Chanel ERICKSON, CMP, 1986-02 #### [facility] ([id number]) [address] [place] [address] #### [id number] #### [facility] ([id number]) [address] [place] [address] Neutrophils/100 WBC (Bld) 68.8 % Normal [facility] Comment on above: Performed By: #### Chanel ERICKSON CMP, 1986-02 #### [facility] ([id number]) [address] [place] [address] #### [id number] #### [facility] ([id number]) [address] [facility] [facility] [place] [address] Platelet mean volume (Bld) [Entitic vol] 8.4 fL Normal 7-12 [facility] Comment on above: Performed By: #### Chanel ERICKSON CMP, 1986-02 #### [facility] ([id number]) [address] [place] [address] #### [id number] #### [facility] ([id number]) [address], [address] [place] [address] Platelets (Bld) [#/Vol] 321 10*3/uL Normal 150-450 [facility] Comment on above: Performed By: #### Chanel ERICKSON CMP, 1986-02 #### [facility] ([id number]) [address] [place] [address] 36388 #### 69956-8 #### [facility] ([id number]) [address] [facility], [address] [place] [address] RBC COUNT 4.38 X10E12/L Normal 3.80-5.20 [facility] Comment on above: Performed By: #### Chanel ERICKSON CMP, 1986-02 #### [facility] ([id number]) [address] [place] [address] 05700 #### 19280-2 #### [facility] ([id number]) [address] [facility], [address] [place] [address] WBC (Bld) [#/Vol] 13.7 10*3/uL High 4.0-11.0 [facility] Comment on above: Performed By: #### Chanel ERICKSON CMP, 1988-02 #### [facility] ([id number]) [address] [place] [address] 07404 #### 49784-7 #### [facility] ([id number]) [address] [place] [address], [address] [place] [address] COMPREHENSIVE METABOLIC PANE Tyrone 12-25-2023 Albumin [Mass/Vol] 3.3 g/dL Normal 3.2-5.3 [facility] Comment on above: Performed By: #### Chanel BCA CMP, 1988-02 #### [facility] ([id number]) [address] [place] [address] 23252 #### 72983-2 #### [facility] ([id number]) [address] [place] [address], [address] [address] ALP [Catalytic activity/Vol] 66 U/L Normal 39-130 [facility] Comment on above: Performed By: #### Chanel BCA, CMP, 1988-02 #### [facility] ([id number]) [address] [place] [address] 41522 #### 80085-3 #### [facility] ([id number]) [address] [place] [address], [address] [place] [address] ALT [Catalytic activity/Vol] 16 U/L Normal 0-31 [facility] Comment on above: Performed By: #### Chanel BCA, CMP, 1988-02 #### [facility] ([id number]) [address] [place] [address] [place] [address] #### 04521-9 #### [facility] ([id number]) [address], [address] [place] [address] Anion gap [Moles/Vol] 10 mmol/L Normal 5-15 [facility] Comment on above: Performed By: #### Chanel ERICKSON CMP, 1988-02 #### [facility] ([id number]) [address] [place] [address] 12841 #### 82870-9 #### [facility] ([id number]) [address] [facility], [address] [place] [address] AST [Catalytic activity/Vol] 17 U/L Normal 0-41 [facility] Comment on above: Performed By: #### Chanel ERICKSON CMP, 1988-02 #### [facility] ([id number]) [address] [place] [address] 19419 #### 60920-9 #### [facility] ([id number]) [address], [address] [place] [address] Bilirubin [Mass/Vol] 0.5 mg/dL Normal 0.3-1.2 [facility] Comment on above: Performed By: #### Chanel ERICKSON CMP, 1988-02 #### [facility] ([id number]) [address] [place] [address] 62442 #### 28425-7 #### [facility] ([id number]) [address], [address] [place] [address] Calcium [Mass/Vol] 8.9 mg/dL Normal 8.5-10.5 [facility] Comment on above: Performed By: #### Chanel BCA, CMP, 1988-02 #### [facility] ([id number]) [address] [place] [address] 07130 #### 06288-5 #### [facility] ([id number]) [address], [address] [place] [address] Chloride [Moles/Vol] 98 mmol/L Normal 98-109 [facility] Comment on above: Performed By: #### C SEAN ERICKSON, 1986-02 #### [facility] ([id number]) [address] [place] [address] 57034 #### 09876-7 #### [facility] ([id number]) [address] [facility], [address] [place] [address] CO2 [Moles/Vol] 31 mmol/L Normal 22-32 [facility] Comment on above: Performed By: #### Chanel ERICKSON [facility], 1988-02 #### [facility] ([id number]) [address] [place] [address] 77341 #### 89351-5 #### [facility] ([id number]) [address] [facility], [address] [place] [address] Creatinine [Mass/Vol] 0.78 mg/dL Normal 0.40-1.00 [facility] Comment on above: Result Comment: METH OD TRACEABLE TO IDMS STANDARD Performed By: #### C DRE [facility], 1988-02 #### [facility] ([id number]) [address] [place] [address] 88830 #### 65933-0 #### [facility] ([id number]) [address] [facility], [address] [place] [address] GFR/1.73 sq M.predicted among non-blacks MDRD (S/P/Bld) [Vol rate/Area] 81 mL/min/{1.73_m2} Normal >59 [facility] Comment on above: Result Comment: Reported eGFR is based on the CKD-EPI 2020 equation that does not use a race coefficient. Performed By: #### Chanel ERICKSON CMP, 1988-02 #### [facility] ([id number]) [address] [place] [address] 68395 #### 66007-0 #### [facility] ([id number]) [address] [facility], [address] [place] [address] Glucose [Mass/Vol] 125 mg/dL High 65-99 [facility] Comment on above: Performed By: #### Chanel ERICKSON CMP, 1988-02 #### [facility] ([id number]) [address] [place] [address] 49302 #### 87759-7 #### [facility] ([id number]) [address] [facility], [address] [place] [address] Potassium [Moles/Vol] 3.5 mmol/L Normal 3.5-5.0 [facility] Comment on above: Performed By: #### Chanel ERICKSON CMP, 1988-02 #### [facility] ([id number]) [address] [place] [address] 63216 #### 60537-7 #### [facility] ([id number]) [address] [facility], [address] [place] [address] Protein [Mass/Vol] 7.7 g/dL Normal 6.0-8.0 [facility] Comment on above: Performed By: #### Chanel ERICKSON CMP, 1988-02 #### [facility] ([id number]) [address] [place] [address] 41248 #### 58596-9 #### [facility] ([id number]) [address] [place] [address] Sodium [Moles/Vol] 139 mmol/L Normal 134-146 [facility] Comment on above: Performed By: #### Chanel ERICKSON CMP, 1988-02 #### [facility] ([id number]) [address] [place] [address] 88646 #### 25351-7 #### [facility] ([id number]) [address], [address] [place] [address] Urea nitrogen [Mass/Vol] 19 mg/dL Normal 5-27 [facility] Comment on above: Performed By: #### Chanel ERICKSON [facility], 1988-02 #### [facility] ([id number]) [address] [place] [address] 85951 #### 08180-4 #### [facility] ([id number]) [address] [facility], [address] [place] [address] CRP [Mass/Vol]on 12-25-2023 C REACTIVE PROTEIN 8.6 mg/dL High 0.000-0.744 [facility] Comment on above: Performed By: #### Chanel ERICKSON [facility], 1988-02 #### [facility] ([id number]) [address] [place] [address] 47811 #### 88696-0 #### [facility] ([id number]) [address] [facility], [address] [place] [address] ESR Photometric method (Bld) [Velocity]on 12-25-2023 ESR, ERYTHROCYTE SEDIMENTATION RATE 85 mm/h High 0-30 [facility] Comment on above: Performed By: #### Chanel ERICKSON [facility], 1988-02 #### [facility] ([id number]) [address] [place] [address] 65519 #### 82328-5 #### [facility] ([id number]) [address] [facility], [address] [place] [address] Glucose Glucometer (BldC) [M ass/Vol]on 12-25-2023 Glucose [Mass/Vol] 171 mg/dL High 65-99 [facility] Glucose [Mass/Vol] 125 mg/dL High 65-99 [facility] Glucose [Mass/Vol] 154 mg/dL High 65-99 [facility] MAGNESIUMon 12-25-2023 Magnesium [Mass/Vol] 2.4 mg/dL Normal 1.8-2.6 [facility] Comment on above: Performed By: #### Chanel ERICKSON [facility], 1988-02 #### [facility] ([id number]) [address] [place] [address] 03153 #### 64120-3 #### [facility] ([id number]) [address] [facility], [address] [place] [address] POTASSIUMon 12-25-2023 Potassium [Moles/Vol] 4.2 mmol/L Normal 3.5-5.0 [facility] Comment on above: Performed By: #### Chanel ERICKSON [facility], 1988-02 #### [facility] ([id number]) [address] [place] [address] 98774 #### 93568-6 #### [facility] ([id number]) [address] [facility], [address] [place] [address] PROTIME AND INRon 12-25-2023 INR Coag (PPP) [Relative time] 2.6 {INR} High 0.8-1.1 [facility] Comment on above: Performed By: #### Chanel ERICKSON [facility], 1988-02 #### [facility] ([id number]) [address] [place] [address] 08987 #### 55276-8 #### [facility] ([id number]) [address] [facility], [address] [place] [address] PT Coag (PPP) [Time] 29.7 s High 9.8-13.2 [facility] Comment on above: Result Comment: NEW REFERENCE RANGE Performed By: #### Chanel ERICKSON CMP, 1988-02 #### [facility] ([id number]) [address] [place] [address] 35917 #### 67677-8 #### [facility] ([id number]) [address] [facility], [address] [place] [address] URIC ACIDon 12-25-2023 Urate [Mass/Vol] 8.9 mg/dL High 2.6-7.2 [facility] Comment on above: Performed By: #### C BCA, CMP, 1987- #### [facility] ([id number]) [address] [place] [address], [employer] [place] [address] #### 02074-3 #### [facility] ([id number]) [address] [facility], [address] [place] [address] XR CHEST 1 VWon 12-25-2023 XR CHEST [...] on 12/25/2023 11:21 AM Normal [facility] XR FOOT RT 2 VWSon XR FOOT [...] on 12/25/2023 2:59 PM Normal [facility] CBC AND AUTO DIFFon 12-24-19 24 ABSOLUTE BASOPHIL 0.1 X10E9/L Normal 0.0-0.2 [facility] Comment on above: Performed By: #### Chanel ERICKSON CMP, 1988-02 #### [facility] ([id number]) [address] [place] [address] 28768 #### 43821-7 #### [facility] ([id number]) [address], [address] [place] [address] ABSOLUTE NEUTROPHIL 10.2 X10E9/L High 1.5-6.6 [facility] Comment on above: Performed By: #### Chanel ERICKSON [facility], 1988-02 #### [facility] ([id number]) [address] [place] [address] 70609 #### 11513-7 #### [facility] ([id number]) [address] [facility], [address] [place] [address] Basophils/100 WBC (Bld) 0.5 % Normal [facility] Comment on above: Performed By: #### Chanel ERICKSON [facility], 1988-02 #### [facility] ([id number]) [address] [place] [address] 70019 #### 65051-5 #### [facility] ([id number]) [address] [place] [address] Eosinophils (Bld) [#/Vol] 0.9 10*3/uL High 0.0-0.4 [facility] Comment on above: Performed By: #### Chanel ERICKSON CMP, 1988-02 #### [facility] ([id number]) [address] [place] [address] 56657 #### 49147-0 #### [facility] ([id number]) [address] [place] [address] Eosinophils/100 WBC (Bld) 6.2 % Normal [facility] Comment on above: Performed By: #### Chanel ERICKSON CMP, 1988-02 #### [facility] ([id number]) [address] [place] [address] 25125 #### 25932-8 #### [facility] ([id number]) [address], [address] [place] [address] Erythrocyte distribution width (RBC) [Ratio] 14.1 % Normal 11.5-15.0 [facility] Comment on above: Performed By: #### Chanel ERICKSON CMP, 1988-02 #### [facility] ([id number]) [address] [place] [address] 03426 #### 09791-9 #### [facility] ([id number]) [address], [address] [place] [address] Hematocrit (Bld) [Volume fraction] 37.3 % Normal 35-47 [facility] Comment on above: Performed By: #### Chanel ERICKSON CMP, 1988-02 #### [facility] ([id number]) [address] [place] [address] 70407 #### 58502-1 #### [facility] ([id number]) [address], [address] [place] [address] Hemoglobin (Bld) [Mass/Vol] 12.4 g/dL Normal 11.7-15.5 [facility] Comment on above: Performed By: #### Chanel ERICKSON CMP, 1988-02 #### [facility] ([id number]) [address] [place] [address] 28495 #### 86342-5 #### [facility] ([id number]) [address], [address] [place] [address] Lymphocytes (Bld) [#/Vol] 2.2 10*3/uL Normal 1.0-3.5 [facility] Comment on above: Performed By: #### Chanel ERICKSON CMP, 1988-02 #### [facility] ([id number]) [address] [place] [address] 89387 #### 63263-8 #### [facility] ([id number]) [address] [place] [address] Lymphocytes/100 WBC (Bld) 15.4 % Normal [facility] Comment on above: Performed By: #### Chanel ERICKSON CMP, 1988-02 #### [facility] ([id number]) [address] [place] [address] 90809 #### 96252-8 #### [facility] ([id number]) [address] [place] [address] MCH (RBC) [Entitic mass] 29.0 pg Normal 27-34 [facility] Comment on above: Performed By: #### Chanel ERICKSON CMP, 1988-02 #### [facility] ([id number]) [address] [place] [address] 72241 #### 65436-8 #### [facility] ([id number]) [address], [address] [place] [address] MCHC (RBC) [Mass/Vol] 33.3 g/dL Normal 32-36 [facility] Comment on above: Performed By: #### Chanel ERICKSON CMP, 1988-02 #### [facility] ([id number]) [address] [place] [address] 41581 #### 92950-9 #### [facility] ([id number]) [address] [place] [address] MCV (RBC) [Entitic vol] 87 fL Normal 80-100 [facility] Comment on above: Performed By: #### Chanel ERICKSON CMP, 1988-02 #### [facility] ([id number]) [address] [place] [address] 48496 #### 39060-2 #### [facility] ([id number]) [address] [place] [address] Monocytes (Bld) [#/Vol] 0.7 10*3/uL Normal 0-0.9 [facility] Comment on above: Performed By: #### Chanel ERICKSON CMP, 1988-02 #### [facility] ([id number]) [address] [place] [address] 29518 #### 51549-6 #### [facility] ([id number]) [address] [place] [address] Monocytes/100 WBC (Bld) 5.3 % Normal [facility] Comment on above: Performed By: #### Chanel ERICKSON CMP, 1988-02 #### [facility] ([id number]) [address] [place] [address] 43017 #### 83870-7 #### [facility] ([id number]) [address] [place] [address] Neutrophils/100 WBC (Bld) 72.6 % Normal [facility] Comment on above: Performed By: #### Chanel ERICKSON CMP, 1988-02 #### [facility] ([id number]) [address] [place] [address] 26909 #### 66004-4 #### [facility] ([id number]) [address] [place] [address] Platelet mean volume (Bld) [Entitic vol] 8.6 fL Normal 7-12 [facility] Comment on above: Performed By: #### Chanel ERICKSON CMP, 1988-02 #### [facility] ([id number]) [address] [place] [address] 15321 #### 15608-8 #### [facility] ([id number]) [address] [facility], [address] [place] [address] Platelets (Bld) [#/Vol] 339 10*3/uL Normal 150-450 [facility] Comment on above: Performed By: #### Chanel ERICKSON CMP, 1988-02 #### [facility] ([id number]) [address] [place] [address] 88600 #### 88746-7 #### [facility] ([id number]) [address] [place] [address], [address] [place] [address] RBC COUNT 4.29 X10E12/L Normal 3.80-5.20 [facility] Comment on above: Performed By: #### Chanel ERICKSON CMP, 1988-02 #### [facility] ([id number]) [address] [place] [address] 44417 #### 79524-1 #### [facility] ([id number]) [address] [place] [address], [address] [place] [address] WBC (Bld) [#/Vol] 14.1 10*3/uL High 4.0-11.0 [facility] Comment on above: Performed By: #### Chanel BCA, CMP, 1988-02 #### [facility] ([id number]) [address] [place] [address] 85513 #### 00327-7 #### [facility] ([id number]) [address] [place] [address], [address] [place] [address] COMPREHENSIVE METABOLIC PANE Tyrone 12-24-2023 Albumin [Mass/Vol] 3.4 g/dL Normal 3.2-5.3 [facility] Comment on above: Performed By: #### Chanel BCA, CMP, 1988-02 #### [facility] ([id number]) [address] [place] [address] 01720 #### 24296-1 #### [facility] ([id number]) [address] [facility], [address] [place] [address] ALP [Catalytic activity/Vol] 67 U/L Normal 39-130 [facility] Comment on above: Performed By: #### Chanel ERICKSON CMP, 1988-02 #### [facility] ([id number]) [address] [place] [address] 60946 #### 88332-4 #### [facility] ([id number]) [address] [facility], [address] [place] [address] ALT [Catalytic activity/Vol] 13 U/L Normal 0-31 [facility] Comment on above: Performed By: #### Chanel ERICKSON CMP, 1988-02 #### [facility] ([id number]) [address] [place] [address] 09495 #### 27996-7 #### [facility] ([id number]) [address] [facility], [address] [place] [address] Anion gap [Moles/Vol] 11 mmol/L Normal 5-15 [facility] Comment on above: Performed By: #### Chanel ERICKOSN, CMP, 1988-02 #### [facility] ([id number]) [address] [place] [address] 01840 #### 53314-1 #### [facility] ([id number]) [address] [facility], [address] [place] [address] AST [Catalytic activity/Vol] 16 U/L Normal 0-41 [facility] Comment on above: Performed By: #### Chanel BCA, CMP, 1988-02 #### [facility] ([id number]) [address] [place] [address] 75907 #### 78711-7 #### [facility] ([id number]) [address] [place] [address] Bilirubin [Mass/Vol] 0.4 mg/dL Normal 0.3-1.2 [facility] Comment on above: Performed By: #### Chanel ERICKSON CMP, 1988-02 #### [facility] ([id number]) [address] [place] [address] 04658 #### 92128-9 #### [facility] ([id number]) [address] [place] [address] Calcium [Mass/Vol] 8.9 mg/dL Normal 8.5-10.5 [facility] Comment on above: Performed By: #### Chanel ERICKSON CMP, 1988-02 #### [facility] ([id number]) [address] [place] [address] 82815 #### 85971-4 #### [facility] ([id number]) [address] [place] [address] Chloride [Moles/Vol] 99 mmol/L Normal 98-109 [facility] Comment on above: Performed By: #### Chanel ERICKSON CMP, 1988-02 #### [facility] ([id number]) [address] [place] [address] 84169 #### 53993-6 #### [facility] ([id number]) [address] [place] [address] CO2 [Moles/Vol] 30 mmol/L Normal 22-32 [facility] Comment on above: Performed By: #### Chanel ERICKSON CMP, 1988-02 #### [facility] ([id number]) [address] [place] [address] 93388 #### 78061-4 #### [facility] ([id number]) [address] [place] [address] Creatinine [Mass/Vol] 0.83 mg/dL Normal 0.40-1.00 [facility] Comment on above: Result Comment: METH OD TRACEABLE TO IDMS STANDARD Performed By: #### C SEAN ERICKSON, 1986-02 #### [facility] ([id number]) [address] [place] [address] 86661 #### 00456-9 #### [facility] ([id number]) [address] [place] [address] GFR/1.73 sq M.predicted among non-blacks MDRD (S/P/Bld) [Vol rate/Area] 75 mL/min/{1.73_m2} Normal >59 [facility] Comment on above: Result Comment: Reported eGFR is based on the CKD-EPI 2020 equation that does not use a race coefficient. Performed By: #### Chanel ERICKSON CMP, 1988-02 #### [facility] ([id number]) [address] [place] [address] 04238 #### 27363-1 #### [facility] ([id number]) [address] [facility], [address] [place] [address] Glucose [Mass/Vol] 137 mg/dL High 65-99 [facility] Comment on above: Performed By: #### Chanel ERICKSON CMP, 1988-02 #### [facility] ([id number]) [address] [place] [address] 26251 #### 37563-7 #### [facility] ([id number]) [address] [place] [address] Potassium [Moles/Vol] 3.8 mmol/L Normal 3.5-5.0 [facility] Comment on above: Performed By: #### Chanel ERICKSON CMP, 1988-02 #### [facility] ([id number]) [address] [place] [address] 31831 #### 59677-9 #### [facility] ([id number]) [address] [place] [address] Protein [Mass/Vol] 7.9 g/dL Normal 6.0-8.0 [facility] Comment on above: Performed By: #### Chanel ERICKSON CMP, 1988-02 #### [facility] ([id number]) [address] [place] [address] 13487 #### 55681-6 #### [facility] ([id number]) [address] [place] [address] Sodium [Moles/Vol] 140 mmol/L Normal 134-146 [facility] Comment on above: Performed By: #### Chanel ERICKSON CMP, 1988-02 #### [facility] ([id number]) [address] [place] [address] 35464 #### [id number] #### [facility] ([id number]) [address] [address], [address] [place] [address] Urea nitrogen [Mass/Vol] 18 mg/dL Normal 5-27 [facility] Comment on above: Performed By: #### Chanel ERICKSON CMP, 1986-02 #### [facility] ([id number]) [address] [place] [address] 32619 #### [id number] #### [facility] ([id number]) [address] [place] [address] Glucose Glucometer (BldC) [M ass/Vol]on 12-24-2023 Glucose [Mass/Vol] 136 mg/dL High 65-99 [facility] Glucose [Mass/Vol] 123 mg/dL High 65-99 [facility] Glucose [Mass/Vol] 152 mg/dL High 65-99 [facility] MAGNESIUMon 12-24-2023 Magnesium [Mass/Vol] 2.2 mg/dL Normal 1.8-2.6 [facility] Comment on above: Performed By: #### Chanel ERICKSON CMP, 1986-02 #### [facility] ([id number]) [address] [place] [address] 63249 #### [id number] #### [facility] ([id number]) [address], [address] [place] [address] POTASSIUMon 12-24-2023 Potassium [Moles/Vol] 4.0 mmol/L Normal 3.5-5.0 [facility] Comment on above: Performed By: #### Chanel ERICKSON [facility], 1986-02 #### [facility] ([id number]) [address] [place] [address] 34092 #### [id number] #### [facility] ([id number]) [address], [address] [place] [address] PROTIME AND INRon 12-24-2023 INR Coag (PPP) [Relative time] 2.8 {INR} High 0.8-1.1 [facility] Comment on above: Performed By: #### Chanel ERICKSON CMP, 1986-02 #### [facility] ([id number]) [address] [place] [address] 02920 #### [id number] #### [facility] ([id number]) [address], [address] [place] [address] PT Coag (PPP) [Time] 30.9 s High 9.8-13.2 [facility] Comment on above: Result Comment: NEW REFERENCE RANGE Performed By: #### Chanel ERICKSON CMP, 1986-02 #### [facility] ([id number]) [address] [place] [address] 78988 #### [id number] #### [facility] ([id number]) [address] [facility], [address] [place] [address] Vancomycin trough [Mass/Vol] on 12-24-2023 VANCOMYCIN TROUGH 11.4 ug/mL Normal 5.0-20.[address] [facility] Comment on above: Performed By: #### C DRE CMP, 1986-02 #### [facility] ([id number]) [address] [place] [address] 91429 #### 94018-7 #### [facility] ([id number]) [address] [facility], [address] [place] [address] CBC AND AUTO DIFFon 12-23-19 24 ABSOLUTE BASOPHIL 0.1 X10E9/L Normal 0.0-0.2 [facility] Comment on above: Performed By: #### C DRE, PINR, CMP, ####[facility] ([id number])[address] [place] [address] 96577 ABSOLUTE NEUTROPHIL 10.1 X10E9/L High 1.5-6.6 [facility] Comment on above: Performed By: #### C BCA, PINR, CMP, ####[facility] ([id number])[address] [place] [address] 47410 Basophils/100 WBC (Bld) 1.0 % Normal [facility] Comment on above: Performed By: #### C BCA, PINR, CMP, ####[facility] ([id number])[address] [place] [address] 49573 Eosinophils (Bld) [#/Vol] 0.8 10*3/uL High 0.0-0.4 [facility] Comment on above: Performed By: #### C BCA, PINR, CMP, ####[facility] ([id number])[address] [place] [address] 87847 Eosinophils/100 WBC (Bld) 5.8 % Normal [facility] Comment on above: Performed By: #### C DRE, PINR, CMP, ####[facility] ([id number])[address] [place] [address] 08675 Erythrocyte distribution width (RBC) [Ratio] 13.8 % Normal 11.5-15.0 [facility] Comment on above: Performed By: #### C DRE, PINR, CMP, ####[facility] ([id number])[address] [place] [address] 41049 Hematocrit (Bld) [Volume fraction] 36.1 % Normal 35-47 [facility] Comment on above: Performed By: #### Chanel ERICKSON, PINR, CMP, ####[facility] ([id number])[address] [place] [address] 06607 Hemoglobin (Bld) [Mass/Vol] 12.1 g/dL Normal 11.7-15.5 [facility] Comment on above: Performed By: #### Chanel ERICKSON, PINR, CMP, ####[facility] ([id number])[address] [place] [address] 83558 Lymphocytes (Bld) [#/Vol] 2.4 10*3/uL Normal 1.0-3.5 [facility] Comment on above: Performed By: #### C BCA, PINR, CMP, ####[facility] ([id number])[address] [place] [address] 48081 Lymphocytes/100 WBC (Bld) 16.6 % Normal [facility] Comment on above: Performed By: #### C BCA, PINR, CMP, ####[facility] ([id number])[address] [place] [address] 44289 MCH (RBC) [Entitic mass] 29.0 pg Normal 27-34 [facility] Comment on above: Performed By: #### C DRE PINR, CMP, ####[facility] ([id number])[address] [place] [address] 75607 MCHC (RBC) [Mass/Vol] 33.6 g/dL Normal 32-36 [facility] Comment on above: Performed By: #### Chanel ERICKSON PINR, CMP, ####[facility] ([id number])[address] [place] [address] 28375 MCV (RBC) [Entitic vol] 86 fL Normal 80-100 [facility] Comment on above: Performed By: #### Chanel ERICKSON PINR, CMP, ####[facility] ([id number])[address] [place] [address] 87882 Monocytes (Bld) [#/Vol] 1.1 10*3/uL High 0-0.9 [facility] Comment on above: Performed By: #### Chanel ERICKSON PINR, CMP, ####[facility] ([id number])[address] [place] [address] 31127 Monocytes/100 WBC (Bld) 7.3 % Normal [facility] Comment on above: Performed By: #### Chanel ERICKSON PINR, CMP, ####[facility] ([id number])[address] [place] [address] 03006 Neutrophils/100 WBC (Bld) 69.3 % Normal [facility] Comment on above: Performed By: #### Chanel ERICKSON PINR, CMP, ####[facility] ([id number])[address] [place] [address] 24188 Platelet mean volume (Bld) [Entitic vol] 8.5 fL Normal 7-12 [facility] Comment on above: Performed By: #### C BCA, PINR, CMP, [id number] ####[facility] ([id number])[address] [place] [address] 11452 Platelets (Bld) [#/Vol] 286 10*3/uL Normal 150-450 [facility] Comment on above: Performed By: #### C BCA, PINR, CMP, ####[facility] ([id number])[address] [place] [address] 36296 RBC COUNT 4.19 X10E12/L Normal 3.80-5.20 [facility] Comment on above: Performed By: #### C BCA, PINR, CMP, 08603-8 ####[facility] ([id number])[address] [place] [address] 98986 WBC (Bld) [#/Vol] 14.6 10*3/uL High 4.0-11.0 [facility] Comment on above: Performed By: #### C BCA, PINR, CMP, ####[facility] ([id number])[address] [place] [address] 37154 COMPREHENSIVE METABOLIC PANE Tyrone 12-23-2023 Albumin [Mass/Vol] 3.1 g/dL Low 3.2-5.3 [facility] Comment on above: Performed By: #### Chanel ERICKSON CMP, 1986-02 #### [facility] ([id number]) [address] [place] [address] 13054 #### 74388-0 #### [facility] ([id number]) [address] [place] [address], [address] [place] [address] ALP [Catalytic activity/Vol] 60 U/L Normal 39-130 [facility] Comment on above: Performed By: #### Chanel ERICKSON CMP, 1986-02 #### [facility] ([id number]) [address] [place] [address] 05962 #### 67545-9 #### [facility] ([id number]) [address], [address] [place] [address] ALT [Catalytic activity/Vol] 12 U/L Normal 0-31 [facility] Comment on above: Performed By: #### Chanel ERICKSON CMP, 1986-02 #### [facility] ([id number]) [address] [place] [address] 59254 #### 85461-7 #### [facility] ([id number]) [address] [facility], [address] [place] [address] Anion gap [Moles/Vol] 9 mmol/L Normal 5-15 [facility] Comment on above: Performed By: #### Chanel ERICKSON CMP, 1986-02 #### [facility] ([id number]) [address] [place] [address] 22991 #### 82941-4 #### [facility] ([id number]) [address] [facility], [address] [place] [address] AST [Catalytic activity/Vol] 14 U/L Normal 0-41 [facility] Comment on above: Performed By: #### Chanel ERICKSON CMP, 1986-02 #### [facility] ([id number]) [address] [place] [address] 55958 #### 52314-0 #### [facility] ([id number]) [address], [address] [place] [address] Bilirubin [Mass/Vol] 0.6 mg/dL Normal 0.3-1.2 [facility] Comment on above: Performed By: #### Chanel ERICKSON CMP, 1986-02 #### [facility] ([id number]) [address] [place] [address] 75185 #### 04443-8 #### [facility] ([id number]) [address] [place] [address] Calcium [Mass/Vol] 8.5 mg/dL Normal 8.5-10.5 [facility] Comment on above: Performed By: #### C SEAN ERICKSON, 1986-02 #### [facility] ([id number]) [address] [place] [address] 09710 #### 96917-8 #### [facility] ([id number]) [address] [place] [address] Chloride [Moles/Vol] 99 mmol/L Normal 98-109 [facility] Comment on above: Performed By: #### C SEAN ERICKSON, 1986-02 #### [facility] ([id number]) [address] [place] [address] 16791 #### 76090-1 #### [facility] ([id number]) [address], [address] [place] [address] CO2 [Moles/Vol] 28 mmol/L Normal 22-32 [facility] Comment on above: Performed By: #### C SEAN ERICKSON, 1986-02 #### [facility] ([id number]) [address] [place] [address] 51187 #### 93204-1 #### [facility] ([id number]) [address], [address] [place] [address] Creatinine [Mass/Vol] 0.75 mg/dL Normal 0.40-1.00 [facility] Comment on above: Result Comment: METH OD TRACEABLE TO IDMS STANDARD Performed By: #### C DRE CMP, 1988-02 #### [facility] ([id number]) [address] [place] [address] 19277 #### 25611-1 #### [facility] ([id number]) [address] [place] [address] GFR/1.73 sq M.predicted among non-blacks MDRD (S/P/Bld) [Vol rate/Area] 85 mL/min/{1.73_m2} Normal >59 [facility] Comment on above: Result Comment: Reported eGFR is based on the CKD-EPI 2020 equation that does not use a race coefficient. Performed By: #### Chanel ERICKSON CMP, 1986-02 #### [facility] ([id number]) [address] [place] [address] 93153 #### 39896-8 #### [facility] ([id number]) [address] [facility] [place] [address] Glucose [Mass/Vol] 122 mg/dL High 65-99 [facility] Comment on above: Performed By: #### Chanel ERICKSON CMP, 1986-02 #### [facility] ([id number]) [address] [place] [address] 36670 #### 53175-9 #### [facility] ([id number]) [address] [place] [address] Potassium [Moles/Vol] 3.5 mmol/L Normal 3.5-5.0 [facility] Comment on above: Performed By: #### Chanel ERICKSON CMP, 1986-02 #### [facility] ([id number]) [address] [place] [address] 30168 #### 11693-2 #### [facility] ([id number]) [address] [place] [address] Protein [Mass/Vol] 7.3 g/dL Normal 6.0-8.0 [facility] Comment on above: Performed By: #### Chanel ERICKSON CMP, 1986-02 #### [facility] ([id number]) [address] [place] [address] 34642 #### 84081-9 #### [facility] ([id number]) [address], [address] [place] [address] Sodium [Moles/Vol] 136 mmol/L Normal 134-146 [facility] Comment on above: Performed By: #### Chanel ERICKSON [facility], 1988-02 #### [facility] ([id number]) [address] [place] [address] 24104 #### 23124-0 #### [facility] ([id number]) [address] [place] [address] Urea nitrogen [Mass/Vol] 15 mg/dL Normal 5-27 [facility] Comment on above: Performed By: #### Chanel ERICKSON [facility], 1988-02 #### [facility] ([id number]) [address] [place] [address] 57926 #### 77205-7 #### [facility] ([id number]) [address] [place] [address] Glucose Glucometer (BldC) [M ass/Vol]on 12-23-2023 Glucose [Mass/Vol] 158 mg/dL High 65-99 [facility] Glucose [Mass/Vol] 141 mg/dL High 65-99 [facility] HGB A1C (GLYCO-HGB)on 2023 Glucose [Mass/Vol] 140 mg/dL Normal [facility] Comment on above: Performed By: #### Chanel ERICKSON CMP, 1986-02 #### [facility] ([id number]) [address] [place] [address] 97559 #### 50618-7 #### [facility] ([id number]) [address], [address] [place] [address] HbA1c (Bld) [Mass fraction] 6.5 % High 4.4-5.6 [facility] Comment on above: Result Comment: NOTE ADA Guidelines Result HgbA1c Normal : less than 5.7 % Prediabetes : 5.7 % to 6.4 % Diabetes : > 6.4 % Use with caution in patients with abnormal hemoglobin variants as the half-life of red blood cells and in vivo glycation rates are affected. Performed By: #### C DRE [facility], 1988-02 #### [facility] ([id number]) [address] [place] [address] 04624 #### 98282-0 #### [facility] ([id number]) [address] [place] [address], [address] [place] [address] MAGNESIUMon 12-23-2023 Magnesium [Mass/Vol] 2.0 mg/dL Normal 1.8-2.6 [facility] Comment on above: Performed By: #### Chanel ERICKSON [facility], 1988-02 #### [facility] ([id number]) [address] [place] [address] 79761 #### 43985-5 #### [facility] ([id number]) [address] [place] [address], [address] [place] [address] POTASSIUMon 12-23-2023 Potassium [Moles/Vol] 4.4 mmol/L Normal 3.5-5.0 [facility] Comment on above: Performed By: #### Chanel ERICKSON [facility], 1988-02 #### [facility] ([id number]) [address] [place] [address] 13266 #### 30335-1 #### [facility] ([id number]) [address] [place] [address], [address] [place] [address] PROTIME AND INRon 12-23-2023 INR Coag (PPP) [Relative time] 2.7 {INR} High 0.8-1.1 [facility] Comment on above: Performed By: #### C BCA, PINR, CMP, ####[facility] ([id number])[address] [place] [address] 78375 PT Coag (PPP) [Time] 29.9 s High 9.8-13.2 [facility] Comment on above: Result Comment: NEW REFERENCE RANGE Performed By: #### C BCA, PINR, CMP, ####[facility] ([id number])[address] [place] [address] 18638 CBC AND AUTO DIFFon 12-22-19 24 ABSOLUTE BASOPHIL 0.2 X10E9/L Normal 0.0-0.2 [facility] Comment on above: Performed By: #### P INR, CMP, , CBCA ####[facility] ([id number])[address] [place] [address] 12012 ABSOLUTE NEUTROPHIL 10.5 X10E9/L High 1.5-6.6 [facility] Comment on above: Performed By: #### P INR, CMP, , CBCA ####[facility] ([id number])[address] [place] [address] 15589 Basophils/100 WBC (Bld) 1.0 % Normal [facility] Comment on above: Performed By: #### P INR, CMP, , CBCA ####[facility] ([id number])[address] [place] [address] 21253 Eosinophils (Bld) [#/Vol] 1.1 10*3/uL High 0.0-0.4 [facility] Comment on above: Performed By: #### P INR, CMP, , CBCA ####[facility] ([id number])[address] [place] [address] 37197 Eosinophils/100 WBC (Bld) 6.9 % Normal [facility] Comment on above: Performed By: #### P INR, CMP, , CBCA ####[facility] ([id number])[address] [place] [address] 62708 Erythrocyte distribution width (RBC) [Ratio] 13.7 % Normal 11.5-15.0 [facility] Comment on above: Performed By: #### P INR, CMP, , CBCA ####[facility] ([id number])[address] [place] [address] 24708 Hematocrit (Bld) [Volume fraction] 34.0 % Low 35-47 [facility] Comment on above: Performed By: #### P INR, CMP, , CBCA ####[facility] ([id number])[address] [place] [address] 19077 Hemoglobin (Bld) [Mass/Vol] 11.4 g/dL Low 11.7-15.5 [facility] Comment on above: Performed By: #### P INR, CMP, , CBCA ####[facility] ([id number])[address] [place] [address] 45474 Lymphocytes (Bld) [#/Vol] 3.5 10*3/uL Normal 1.0-3.5 [facility] Comment on above: Performed By: #### P INR, CMP, , CBCA ####[facility] ([id number])[address] [place] [address] 34570 Lymphocytes/100 WBC (Bld) 21.4 % Normal [facility] Comment on above: Performed By: #### P INR, CMP, , CBCA ####[facility] ([id number])[address] [place] [address] 96800 MCH (RBC) [Entitic mass] 29.1 pg Normal 27-34 [facility] Comment on above: Performed By: #### P INR, CMP, , CBCA ####[facility] ([id number])[address] [place] [address] 65951 MCHC (RBC) [Mass/Vol] 33.6 g/dL Normal 32-36 [facility] Comment on above: Performed By: #### P INR, CMP, , CBCA ####[facility] ([id number])[address] [place] [address] 82681 MCV (RBC) [Entitic vol] 87 fL Normal 80-100 [facility] Comment on above: Performed By: #### P INR, CMP, , CBCA ####[facility] ([id number])[address] [place] [address] 91217 Monocytes (Bld) [#/Vol] 0.9 10*3/uL Normal 0-0.9 [facility] Comment on above: Performed By: #### P INR, CMP, , CBCA ####[facility] ([id number])[address] [place] [address] 59882 Monocytes/100 WBC (Bld) 5.8 % Normal [facility] Comment on above: Performed By: #### P INR, CMP, , CBCA ####[facility] ([id number])[address] [place] [address] 71749 Neutrophils/100 WBC (Bld) 64.9 % Normal [facility] Comment on above: Performed By: #### P INR, CMP, , CBCA ####[facility] ([id number])[address] [place] [address] 99015 Platelet mean volume (Bld) [Entitic vol] 8.8 fL Normal 7-12 [facility] Comment on above: Performed By: #### P INR, CMP, , CBCA ####[facility] ([id number])[address] [place] [address] 03730 Platelets (Bld) [#/Vol] 258 10*3/uL Normal 150-450 [facility] Comment on above: Performed By: #### P INR, CMP, , CBCA ####[facility] ([id number])[address] [place] [address] 85015 RBC COUNT 3.92 X10E12/L Normal 3.80-5.20 [facility] Comment on above: Performed By: #### P INR, CMP, , CBCA ####[facility] ([id number])[address] [place] [address] 70669 WBC (Bld) [#/Vol] 16.2 10*3/uL High 4.0-11.0 [facility] Comment on above: Performed By: #### P INR, CMP, , CBCA ####[facility] ([id number])[address] [place] [address] 27387 COMPREHENSIVE METABOLIC PANE Tyrone 12-22-2023 Albumin [Mass/Vol] 3.4 g/dL Normal 3.2-5.3 [facility] Comment on above: Performed By: #### P INR, CMP, , CBCA ####[facility] ([id number])[address] [place] [address] 86839 ALP [Catalytic activity/Vol] 59 U/L Normal 39-130 [facility] Comment on above: Performed By: #### P INR, CMP, , CBCA ####[facility] ([id number])[address] [place] [address] 70004 ALT [Catalytic activity/Vol] 11 U/L Normal 0-31 [facility] Comment on above: Performed By: #### P INR, CMP, , CBCA ####[facility] ([id number])[address] [place] [address] 44388 Anion gap [Moles/Vol] 11 mmol/L Normal 5-15 [facility] Comment on above: Performed By: #### P INR, CMP, , CBCA ####[facility] ([id number])[address] [place] [address] [place] [address] AST [Catalytic activity/Vol] 14 U/L Normal 0-41 [facility] Comment on above: Performed By: #### P INR, CMP, , CBCA ####[facility] ([id number])[address] [place] [address] 26804 Bilirubin [Mass/Vol] 0.8 mg/dL Normal 0.3-1.2 [facility] Comment on above: Performed By: #### P INR, CMP, , CBCA ####[facility] ([id number])[address] [place] [address] 47257 Calcium [Mass/Vol] 8.5 mg/dL Normal 8.5-10.5 [facility] Comment on above: Performed By: #### P INR, CMP, , CBCA ####[facility] ([id number])[address] [place] [address] 23763 Chloride [Moles/Vol] 98 mmol/L Normal 98-109 [facility] Comment on above: Performed By: #### P INR, CMP, , CBCA ####[facility] ([id number])[address] [place] [address] 26958 CO2 [Moles/Vol] 26 mmol/L Normal 22-32 [facility] Comment on above: Performed By: #### P INR, CMP, , CBCA ####[facility] ([id number])[address] [place] [address] 64079 Creatinine [Mass/Vol] 0.78 mg/dL Normal 0.40-1.00 [facility] Comment on above: Result Comment: METH OD TRACEABLE TO IDMS STANDARD Performed By: #### P INR, CMP, , CBCA ####[facility] ([id number])[address] [place] [address] 43061 GFR/1.73 sq M.predicted among non-blacks MDRD (S/P/Bld) [Vol rate/Area] 81 mL/min/{1.73_m2} Normal >59 [facility] Comment on above: Result Comment: Reported eGFR is based on the CKD-EPI 2020 equation that does not use a race coefficient. Performed By: #### P INR, CMP, , CBCA ####[facility] ([id number])[address] [place] [address] 54910 Glucose [Mass/Vol] 121 mg/dL High 65-99 [facility] Comment on above: Performed By: #### P INR, CMP, , CBCA ####[facility] ([id number])[address] [place] [address] 76899 Potassium [Moles/Vol] 3.5 mmol/L Normal 3.5-5.0 [facility] Comment on above: Performed By: #### P INR, CMP, , CBCA ####[facility] ([id number])[address] [place] [address] 82775 Protein [Mass/Vol] 7.2 g/dL Normal 6.0-8.0 [facility] Comment on above: Performed By: #### P INR, CMP, , CBCA ####[facility] ([id number])[address] [place] [address] 35471 Sodium [Moles/Vol] 135 mmol/L Normal 134-146 [facility] Comment on above: Performed By: #### P INR, CMP, , CBCA ####[facility] ([id number])[address] [place] [address] 22117 Urea nitrogen [Mass/Vol] 15 mg/dL Normal 5-27 [facility] Comment on above: Performed By: #### P INR, CMP, , CBCA ####[facility] ([id number])[address] [place] [address] 05951 Glucose Glucometer (BldC) [M ass/Vol]on 12-22-2023 Glucose [Mass/Vol] 147 mg/dL High 65-99 [facility] Glucose [Mass/Vol] 136 mg/dL High 65-99 [facility] Glucose [Mass/Vol] 120 mg/dL High 65-99 [facility] MAGNESIUMon 12-22-2023 Magnesium [Mass/Vol] 2.0 mg/dL Normal 1.8-2.6 [facility] Comment on above: Performed By: #### P INR, CMP, , CBCA ####[facility] ([id number])[address] [place] [address] 53619 PROTIME AND INRon 12-22-2023 INR Coag (PPP) [Relative time] 2.6 {INR} High 0.8-1.1 [facility] Comment on above: Performed By: #### P INR, CMP, , CBCA ####[facility] ([id number])[address] [place] [address] 30499 PT Coag (PPP) [Time] 29.0 s High 9.8-13.2 [facility] Comment on above: Result Comment: NEW REFERENCE RANGE Performed By: #### P INR, CMP, , CBCA ####[facility] ([id number])[address] [place] [address], [place] [address] Vancomycin trough [Mass/Vol] on 12-22-2023 VANCOMYCIN TROUGH 15.2 ug/mL Normal 5.0-20.[address] [facility] Comment on above: Performed By: #### 4 092-3 ####[facility] ([id number])[address] [place] [address] 29423 CBC AND AUTO DIFFon 12-21-19 ABSOLUTE BASOPHIL 0.1 X10E9/L Normal 0.0-0.2 [facility] Comment on above: Performed By: #### Chanel ERICKSON [facility], 35922-0 #### [facility] ([id number]) [address] [place] [id number] ABSOLUTE NEUTROPHIL 11.5 X10E9/L High 1.5-6.6 [facility] Comment on above: Performed By: #### Chanel ERICKSON [facility], #### [facility] ([id number]) [address] [place] [address] 63170 Basophils/100 WBC (Bld) 0.8 % Normal [facility] Comment on above: Performed By: #### Chanel ERICKSON [facility], #### [facility] ([id number]) [address] [place] [address] 20376 Eosinophils (Bld) [#/Vol] 0.3 10*3/uL Normal 0.0-0.4 [facility] Comment on above: Performed By: #### Chanel ERICKSON [facility], #### [facility] ([id number]) [address] [place] [address] 42219 Eosinophils/100 WBC (Bld) 2.2 % Normal [facility] Comment on above: Performed By: #### Chanel ERICKSON [facility], #### [facility] ([id number]) [address] [place] [address] 13292 Erythrocyte distribution width (RBC) [Ratio] 14.0 % Normal 11.5-15.0 [facility] Comment on above: Performed By: #### Chanel ERICKSON [facility], #### [facility] ([id number]) [address] [place] [address] [phone] Hematocrit (Bld) [Volume fraction] 34.8 % Low 35-47 [facility] Comment on above: Performed By: #### Chanel ERICKSON [facility], #### [facility] ([id number]) [address] [place] [address] 37530 Hemoglobin (Bld) [Mass/Vol] 11.4 g/dL Low 11.7-15.5 [facility] Comment on above: Performed By: #### Chanel ERICKSON [facility], #### [facility] ([id number]) [address] [place] [address] 97104 Lymphocytes (Bld) [#/Vol] 2.0 10*3/uL Normal 1.0-3.5 [facility] Comment on above: Performed By: #### Chanel ERICKSON [facility], #### [facility] ([id number]) [address] [place] [address] 00607 Lymphocytes/100 WBC (Bld) 13.2 % Normal [facility] Comment on above: Performed By: #### Chanel ERICKSON [facility], #### [facility] ([id number]) [address] [place] [address] 00926 MCH (RBC) [Entitic mass] 28.5 pg Normal 27-34 [facility] Comment on above: Performed By: #### Chanel ERICKSON [facility], #### [facility] ([id number]) [address] [place] [address] 03598 MCHC (RBC) [Mass/Vol] 32.6 g/dL Normal 32-36 [facility] Comment on above: Performed By: #### C DRE, CMP, 12680-0 #### [facility] ([id number]) [address] [place] [address] 55719 MCV (RBC) [Entitic vol] 87 fL Normal 80-100 [facility] Comment on above: Performed By: #### C DRE, CMP, #### [facility] ([id number]) [address] [place] [address] 91814 Monocytes (Bld) [#/Vol] 1.3 10*3/uL High 0-0.9 [facility] Comment on above: Performed By: #### Chanel ERICKSON, CMP, #### [facility] ([id number]) [address] [place] [address] 46294 Monocytes/100 WBC (Bld) 8.7 % Normal [facility] Comment on above: Performed By: #### Chanel BCA, CMP, #### [facility] ([id number]) [address] [place] [address] 44036 Neutrophils/100 WBC (Bld) 75.1 % Normal [facility] Comment on above: Performed By: #### Chanel ERICKSON, CMP, #### [facility] ([id number]) [address] [place] [address] 45366 Platelet mean volume (Bld) [Entitic vol] 8.8 fL Normal 7-12 [facility] Comment on above: Performed By: #### Chanel BCA, CMP, #### [facility] ([id number]) [address] [place] [address] 49022 Platelets (Bld) [#/Vol] 257 10*3/uL Normal 150-450 [facility] Comment on above: Performed By: #### Chanel BCA, CMP, #### [facility] ([id number]) [address] [place] [address] 89857 RBC COUNT 3.98 X10E12/L Normal 3.80-5.20 [facility] Comment on above: Performed By: #### C BCA, CMP, 97925-2 #### [facility] ([id number]) [address] [place] [address] 06430 WBC (Bld) [#/Vol] 15.3 10*3/uL High 4.0-11.0 [facility] Comment on above: Performed By: #### C BCA, CMP, #### [facility] ([id number]) [address] [place] [address] 24487 COMPREHENSIVE METABOLIC PANE Tyrone 12-21-2023 Albumin [Mass/Vol] 3.3 g/dL Normal 3.2-5.3 [facility] Comment on above: Performed By: #### C BCA, CMP, ####[facility] ([id number])[address] [place] [address] 33282 ALP [Catalytic activity/Vol] 59 U/L Normal 39-130 [facility] Comment on above: Performed By: #### C BCA, CMP, 30262-0 ####[facility] ([id number])[address] [place] [address] 15926 ALT [Catalytic activity/Vol] 13 U/L Normal 0-31 [facility] Comment on above: Performed By: #### C BCA, CMP, 65770-6 ####[facility] ([id number])[address] [place] [address] 59976 Anion gap [Moles/Vol] 11 mmol/L Normal 5-15 [facility] Comment on above: Performed By: #### C BCA, CMP, 63476-9 ####[facility] ([id number])[address] [place] [address] 78181 AST [Catalytic activity/Vol] 11 U/L Normal 0-41 [facility] Comment on above: Performed By: #### C SEAN ERICKSON, 07870-3 ####[facility] ([id number])[address] [place] [address] 37441 Bilirubin [Mass/Vol] 1.0 mg/dL Normal 0.3-1.2 [facility] Comment on above: Performed By: #### C SEAN ERICKSON, ####[facility] ([id number])[address] [place] [address] 09077 Calcium [Mass/Vol] 8.5 mg/dL Normal 8.5-10.5 [facility] Comment on above: Performed By: #### Chanel ERICKSON CMP, ####[facility] ([id number])[address] [place] [address] 21414 Chloride [Moles/Vol] 101 mmol/L Normal 98-109 [facility] Comment on above: Performed By: #### C SEAN ERICKSON, 82063-4 ####[facility] ([id number])[address] [place] [address] 65390 CO2 [Moles/Vol] 25 mmol/L Normal 22-32 [facility] Comment on above: Performed By: #### C SEAN ERICKSON, ####[facility] ([id number])[address] [place] [address] 78872 Creatinine [Mass/Vol] 0.66 mg/dL Normal 0.40-1.00 [facility] Comment on above: Result Comment: METH OD TRACEABLE TO IDMS STANDARD Performed By: #### C SEAN ERICKSON, ####[facility] ([id number])[address] [place] [address] 91359 eGFR (CKD-EPI) NON-RACE DEPENDENT >90 Normal >59 [facility] Comment on above: Result Comment: Reported eGFR is based on the CKD-EPI 2020 equation that does not use a race coefficient. Performed By: #### C SEAN ERICKSON, ####[facility] ([id number])[address] [place] [address] 85326 Glucose [Mass/Vol] 132 mg/dL High 65-99 [facility] Comment on above: Performed By: #### Chanel ERICKSON CMP, ####[facility] ([id number])[address] [place] [address] 20100 Potassium [Moles/Vol] 3.5 mmol/L Normal 3.5-5.0 [facility] Comment on above: Performed By: #### Chanel ERICKSON CMP, ####[facility] ([id number])[address] [place] [address] 54449 Protein [Mass/Vol] 7.0 g/dL Normal 6.0-8.0 [facility] Comment on above: Performed By: #### C DRE [facility], 58610-7 ####[facility] ([id number])[address] [place] [address] 76593 Sodium [Moles/Vol] 137 mmol/L Normal 134-146 [facility] Comment on above: Performed By: #### Chanel ERICKSON CMP, 73487-0 ####[facility] ([id number])[address] [place] [address] 28904 Urea nitrogen [Mass/Vol] 15 mg/dL Normal 5-27 [facility] Comment on above: Performed By: #### Chanel ERICKSON CMP, 86847-4 ####[facility] ([id number])[address] [place] [address] 16842 Glucose Glucometer (BldC) [M ass/Vol]on 12-21-2023 Glucose [Mass/Vol] 130 mg/dL High 65-99 [facility] Glucose [Mass/Vol] 153 mg/dL High 65-99 [facility] Glucose [Mass/Vol] 206 mg/dL High 65-99 [facility] MAGNESIUMon 12-21-2023 Magnesium [Mass/Vol] 2.2 mg/dL Normal 1.8-2.6 [facility] Comment on above: Performed By: #### C BCA, [facility], 74457-9 ####[facility] ([id number])[address] [place], [place] [address] MR FOOT LT W WO CONTon 12-20 [...] on 12/21/2023 1:06 PM Normal [facility] POTASSIUMon 12-21-2023 Potassium [Moles/Vol] 3.8 mmol/L Normal 3.5-5.0 [facility] Comment on above: Performed By: #### 2 823-3 ####[facility] ([id number])[address] [place] [address] 38928 PROTIME AND INRon 12-21-2023 INR Coag (PPP) [Relative time] 2.4 {INR} High 0.8-1.1 [facility] Comment on above: Performed By: #### P INR ####[facility] ([id number])[address] [place] [address] 59206 PT Coag (PPP) [Time] 27.0 s High 9.8-13.2 [facility] Comment on above: Result Comment: NEW REFERENCE RANGE Performed By: #### P INR ####[facility] ([id number])[address] [place] [address] 72416 BLOOD CULTUREon 12-20-2023 Bacteria identified Aer cx Nom (Bld) SPECIMEN NOTES RSURFACE VEIN CULTURE RESULTS NO GROWTH 5 DAYS Normal [facility] Comment on above: Performed By: #### 1 7928-3 ####[facility] ([id number])[address] [place] [address] 94477 Bacteria identified Aer cx Nom (Bld) SPECIMEN NOTES SUBOPTIMAL VOLUME OF BLOOD COLLECTED, RESULTS MAY BE AFFECTED. CULTURE RESULTS NO GROWTH 5 DAYS Normal [facility] Comment on above: Performed By: #### 1 7928-3 ####[facility] ([id number])[address] [place] [address], [address] [place] [address] 16786 CBC AND AUTO DIFFon 12-20-19 24 ABSOLUTE BASOPHIL 0.1 X10E9/L Normal 0.0-0.2 [facility] Comment on above: Performed By: #### C SEAN ERICKSON, 1986-02 #### [facility] ([id number]) [address] [place] [address] 66801 #### 16185-7 #### [facility] ([id number]) Formerly [facility], [address] [place] [address] 13356 ABSOLUTE NEUTROPHIL 12.0 X10E9/L High 1.5-6.6 [facility] Comment on above: Performed By: #### C SEAN ERICKSON, 1986-02 #### [facility] ([id number]) [address] [place] [address] 68808 #### 25762-9 #### [facility] ([id number]) [address] [place] [address] Basophils/100 WBC (Bld) 0.5 % Normal [facility] Comment on above: Performed By: #### Chanel ERICKSON CMP, 1986-02 #### [facility] ([id number]) [address] [place] [address] 88198 #### 35844-2 #### [facility] ([id number]) [address] [facility], [address] [place] [address] Eosinophils (Bld) [#/Vol] 0.3 10*3/uL Normal 0.0-0.4 [facility] Comment on above: Performed By: #### Chanel ERICKSON CMP, 1986-02 #### [facility] ([id number]) [address] [place] [address] 10125 #### 25616-0 #### [facility] ([id number]) [address] [facility], [address] [place] [address] Eosinophils/100 WBC (Bld) 2.0 % Normal [facility] Comment on above: Performed By: #### Chanel ERICKSON CMP, 1986-02 #### [facility] ([id number]) [address] [place] [address] 99624 #### 60923-0 #### [facility] ([id number]) [address] [place] [address] Erythrocyte distribution width (RBC) [Ratio] 14.0 % Normal 11.5-15.0 [facility] Comment on above: Performed By: #### Chanel ERICKSON CMP, 1986-02 #### [facility] ([id number]) [address] [place] [address] 24388 #### 39574-6 #### [facility] ([id number]) [address] [facility], [address] [place] [address] Hematocrit (Bld) [Volume fraction] 36.1 % Normal 35-47 [facility] Comment on above: Performed By: #### Chanel ERICKSON CMP, 1986-02 #### [facility] ([id number]) [address] [place] [address] 18755 #### 32774-6 #### [facility] ([id number]) [address] [facility], [address] [place] [address] Hemoglobin (Bld) [Mass/Vol] 12.1 g/dL Normal 11.7-15.5 [facility] Comment on above: Performed By: #### Chanel ERICKSON CMP, 1986-02 #### [facility] ([id number]) [address] [place] [address] 87171 #### 22189-0 #### [facility] ([id number]) [address] [facility], [address] [place] [address] Lymphocytes (Bld) [#/Vol] 2.4 10*3/uL Normal 1.0-3.5 [facility] Comment on above: Performed By: #### Chanel ERICKSON CMP, 1986-02 #### [facility] ([id number]) [address] [place] [address] 64749 #### 67193-7 #### [facility] ([id number]) [address] [facility], [address] [place] [address] Lymphocytes/100 WBC (Bld) 14.9 % Normal [facility] Comment on above: Performed By: #### Chanel ERICKSON CMP, 1986-02 #### [facility] ([id number]) [address] [place] [address] 90005 #### 06469-7 #### [facility] ([id number]) [address], [address] [place] [address] MCH (RBC) [Entitic mass] 28.9 pg Normal 27-34 [facility] Comment on above: Performed By: #### C SEAN ERICKSON, 1986-02 #### [facility] ([id number]) [address] [place] [address] 99732 #### 59999-9 #### [facility] ([id number]) [address] [place] [address] MCHC (RBC) [Mass/Vol] 33.5 g/dL Normal 32-36 [facility] Comment on above: Performed By: #### Chanel ERICKSON CMP, 1986-02 #### [facility] ([id number]) [address] [place] [address] 71960 #### 03223-6 #### [facility] ([id number]) [address] [place] [address] MCV (RBC) [Entitic vol] 86 fL Normal 80-100 [facility] Comment on above: Performed By: #### Chanel ERICKSON CMP, 1986-02 #### [facility] ([id number]) [address] [place] [address] 96213 #### 51262-1 #### [facility] ([id number]) [address], [address] [place] [address] Monocytes (Bld) [#/Vol] 1.5 10*3/uL High 0-0.9 [facility] Comment on above: Performed By: #### Chanel ERICKSON CMP, 1986-02 #### [facility] ([id number]) [address] [place] [address] 18058 #### 53316-0 #### [facility] ([id number]) [address], [address] [place] [address] Monocytes/100 WBC (Bld) 9.3 % Normal [facility] Comment on above: Performed By: #### Chanel ERICKSON CMP, 1986-02 #### [facility] ([id number]) [address] [place] [address] 88395 #### 30273-6 #### [facility] ([id number]) [address], [address] [place] [address] Neutrophils/100 WBC (Bld) 73.3 % Normal [facility] Comment on above: Performed By: #### Chanel ERICKSON CMP, 1986-02 #### [facility] ([id number]) [address] [place] [address] 19461 #### 50814-6 #### [facility] ([id number]) [address], [address] [place] [address] Platelet mean volume (Bld) [Entitic vol] 8.4 fL Normal 7-12 [facility] Comment on above: Performed By: #### Chanel ERICKSON CMP, 1986-02 #### [facility] ([id number]) [address] [place] [address] 30606 #### 97256-1 #### [facility] ([id number]) [address], [address] [place] [address] Platelets (Bld) [#/Vol] 282 10*3/uL Normal 150-450 [facility] Comment on above: Performed By: #### Chanel ERICKSON CMP, 1986-02 #### [facility] ([id number]) [address] [place] [address] 55112 #### 45147-5 #### [facility] ([id number]) [address] [place] [address] RBC COUNT 4.18 X10E12/L Normal 3.80-5.20 [facility] Comment on above: Performed By: #### C DRE CMP, 1986-02 #### [facility] ([id number]) [address] [place] [address] 30009 #### 65582-2 #### [facility] ([id number]) [address], [address] [place] [address] WBC (Bld) [#/Vol] 16.4 10*3/uL High 4.0-11.0 [facility] Comment on above: Performed By: #### Chanel ERICKSON [facility], 1988-02 #### [facility] ([id number]) [address] [place] [address] 21675 #### 25294-5 #### [facility] ([id number]) [address] [facility], [address] [place] [address] COMPREHENSIVE METABOLIC PANE Tyrone 12-20-2023 Albumin [Mass/Vol] 3.7 g/dL Normal 3.2-5.3 [facility] Comment on above: Performed By: #### Chanel ERICKSON [facility], 1988-02 #### [facility] ([id number]) [address] [place] [address] 13581 #### 63972-6 #### [facility] ([id number]) [address] [place] [address] ALP [Catalytic activity/Vol] 74 U/L Normal 39-130 [facility] Comment on above: Performed By: #### C DRE CMP, 1988-02 #### [facility] ([id number]) [address] [place] [address] 00125 #### 56325-2 #### [facility] ([id number]) [address] [facility], [address] [place] [address] ALT [Catalytic activity/Vol] 15 U/L Normal 0-31 [facility] Comment on above: Performed By: #### Chanel ERICKSON, CMP, 1986-02 #### [facility] ([id number]) [address] [place] [address] 93520 #### 56447-0 #### [facility] ([id number]) [address] [place] [address] Anion gap [Moles/Vol] 6 mmol/L Normal 5-15 [facility] Comment on above: Performed By: #### Chanel BCA, CMP, 1986-02 #### [facility] ([id number]) [address] [place] [address] 90023 #### 25588-4 #### [facility] ([id number]) [address] [place] [address] AST [Catalytic activity/Vol] 17 U/L Normal 0-41 [facility] Comment on above: Performed By: #### Chanel BCA, CMP, 1986-02 #### [facility] ([id number]) [address] [place] [address] 48499 #### 69413-3 #### [facility] ([id number]) [address] [place] [address] Bilirubin [Mass/Vol] 0.4 mg/dL Normal 0.3-1.2 [facility] Comment on above: Performed By: #### Chanel BCA, CMP, 1988-02 #### [facility] ([id number]) [address] [place] [address] 81903 #### 92246-2 #### [facility] ([id number]) [address] [place] [address] Calcium [Mass/Vol] 8.3 mg/dL Low 8.5-10.5 [facility] Comment on above: Performed By: #### C BCA, [facility], 1988-02 #### [facility] ([id number]) [address] [place] [address] 64317 #### 68513-9 #### [facility] ([id number]) [address] [place] [address] Chloride [Moles/Vol] 101 mmol/L Normal 98-109 [facility] Comment on above: Performed By: #### C BCA, [facility], 1988-02 #### [facility] ([id number]) [address] [place] [address] 87281 #### 55754-5 #### [facility] ([id number]) [address] [place] [address] CO2 [Moles/Vol] 26 mmol/L Normal 22-32 [facility] Comment on above: Performed By: #### C DRE [facility], 1988-02 #### [facility] ([id number]) [address] [place] [address] 53997 #### 76230-1 #### [facility] ([id number]) [address] [place] [address] Creatinine [Mass/Vol] 0.69 mg/dL Normal 0.40-1.00 [facility] Comment on above: Result Comment: METH OD TRACEABLE TO IDMS STANDARD Performed By: #### C BCA, [facility], 1988-02 #### [facility] ([id number]) [address] [place] [address] 23825 #### 46048-1 #### [facility] ([id number]) [address] [place] [address] eGFR (CKD-EPI) NON-RACE DEPENDENT >90 Normal >59 [facility] Comment on above: Result Comment: Reported eGFR is based on the CKD-EPI 2020 equation that does not use a race coefficient. Performed By: #### C DRE [facility], 1988-02 #### [facility] ([id number]) [address] [place] [address] 90697 #### 91095-1 #### [facility] ([id number]) [address] [place] [address] Glucose [Mass/Vol] 132 mg/dL High 65-99 [facility] Comment on above: Performed By: #### C DRE, [facility], 1988-02 #### [facility] ([id number]) [address] [place] [address] 37788 #### 34185-3 #### [facility] ([id number]) [address] [place] [address] Potassium [Moles/Vol] 3.8 mmol/L Normal 3.5-5.0 [facility] Comment on above: Performed By: #### C DRE [facility], 1988-02 #### [facility] ([id number]) [address] [place] [address] 03877 #### 67139-2 #### [facility] ([id number]) [address] [place] [address] Protein [Mass/Vol] 7.9 g/dL Normal 6.0-8.0 [facility] Comment on above: Performed By: #### C DRE, [facility], 1988-02 #### [facility] ([id number]) [address] [place] [address] 31150 #### 95730-5 #### [facility] ([id number]) [address] [place] [address] Sodium [Moles/Vol] 133 mmol/L Low 134-146 [facility] Comment on above: Performed By: #### Chanel ERICKSON [facility], 1988-02 #### [facility] ([id number]) [address] [place] [address] 87092 #### 95163-9 #### [facility] ([id number]) [address] [facility], [address] [place] [address] Urea nitrogen [Mass/Vol] 16 mg/dL Normal 5-27 [facility] Comment on above: Performed By: #### Chanel ERICKSON [facility], 1988-02 #### [facility] ([id number]) [address] [place] [address] 22591 #### 31748-8 #### [facility] ([id number]) [address] [facility], [address] [place] [address] CRP [Mass/Vol]on 12-20-2023 C REACTIVE PROTEIN 11.8 mg/dL High 0.000-0.744 [facility] Comment on above: Performed By: #### Chanel ERICKSON [facility], 1988-02 #### [facility] ([id number]) [address] [place] [address] 30713 #### 21793-5 #### [facility] ([id number]) [address] [facility], [address] [place] [address] ESR Photometric method (Bld) [Velocity]on 12-20-2023 ESR, ERYTHROCYTE SEDIMENTATION RATE 60 mm/h High 0-30 [facility] Comment on above: Performed By: #### Chanel ERICKSON [facility], 1988-02 #### [facility] ([id number]) [address] [place] [address] 90048 #### 96289-7 #### [facility] ([id number]) [address] [facility], [address] [place] [address] Glucose Glucometer (BldC) [M ass/Vol]on 12-20-2023 Glucose [Mass/Vol] 174 mg/dL High 65-99 [facility] URINALYSISon 12-20-2023 Bilirubin Ql (U) Negative Normal NEG [facility] Comment on above: Performed By: #### U A #### [facility] ([id number]) [address] [place] [address] BLOOD/HGB Negative Normal NEG [facility] Comment on above: Performed By: #### U A #### [facility] ([id number]) [address] [place] [address] Color (U) YELLOW Normal YELLOW [facility] Comment on above: Performed By: #### U A #### [facility] ([id number]) [address] [place] [address] Glucose Ql (U) Negative Normal NEG [facility] Comment on above: Performed By: #### U A #### [facility] ([id number]) [address] [place] [phone] Ketones Ql (U) Negative Normal NEG [facility] Comment on above: Performed By: #### U A #### [facility] ([id number]) [address] [place] [address] 88470 Leukocyte esterase Test strip Ql (U) Negative Normal NEG [facility] Comment on above: Performed By: #### U A #### [facility] ([id number]) [address] [place] [address] 38464 Nitrite Ql (U) Positive Abnormal NEG [facility] Comment on above: Performed By: #### U A #### [facility] ([id number]) [address] [place] [address] 91382 pH (U) 6.0 [pH] Normal 5.0-8.5 [facility] Comment on above: Performed By: #### U A #### [facility] ([id number]) [address] [place] [address]49[address] Protein Ql (U) Negative Normal NEG [facility] Comment on above: Performed By: #### U A #### [facility] ([id number]) [address] [place] [address] 80716 R.B.CELLS 0 /hpf Normal 0-5 [facility] Comment on above: Performed By: #### U A #### [facility] [facility] ([id number]) [address] [place] [address] 20124 Specific gravity (U) [Rel density] 1.015 Normal 1.003-1.035 [facility] Comment on above: Performed By: #### U A #### [facility] ([id number]) [address] [place] [address] 35959 SQUAMOUS EPITHELIUM 0 to 3 Normal 0-5 [facility] Comment on above: Performed By: #### U A #### [facility] ([id number]) [address] [place] [address] 26848 TURBIDITY CLEAR Normal CLEAR [facility] Comment on above: Performed By: #### U A #### [facility] ([id number]) [address] [place] [address] 62424 Urobilinogen Qn (U) 0.2 {Mindy'U}/dL Normal <1.1 [facility] Comment on above: Performed By: #### U A #### [facility] ([id number]) [address] [place] [address] 19233 W.B.CELLS 0 to 1 Normal 0-5 [facility] Comment on above: Performed By: #### U A #### [facility] ([id number]) [address] [place] [address] 21843 XR FOOT LT MIN 3 VWSon XR [...] on 12/20/2023 6:37 PM Normal [facility] XR FOOT RT MIN 3 VWSon [...] Bradshaw MD on 12/20/2023 5:56 PM Normal [facility] XR KNEE RT 3 VWSon XR [...] MD on 12/20/2023 5:05 PM [facility] 36on 11-16-2023 36 Please let her know her cholesterol levels look good. Continue pravastatin. Thanks [facility] Telephoneon 11-16-2023 Telephone [id number] Maximo Gill 1950 Date Provider Department Center 11/16/2023 EBER PAGAN CHING Tavera Family History Problem Relation Age of Onset Heart attack Father Diabetes Father Hypertension Father Coronary artery disease Father Rheum arthritis Father Family Status - Relation Status Age at Father [facility] 37on 11-01-2023 37 *Increase amlodipine to 10mg daily. You can take 2 tablets of your current 5mg prescription daily until this runs out then start new prescription of 1 - 10mg tablet daily. *Monitor your blood pressure daily 1-2 hours after medications *Have labs drawn *Follow-up with GI given dark stools [facility] Office Visiton 11-01-2023 Follow-up visit [id number] Maximo Gill 1950 Date Provider Department Center 11/01/2023 EBER PAGAN CHING Salazar Family History Problem Relation Age of Onset Heart attack Father Diabetes Father Hypertension Father Coronary artery disease Father Rheum arthritis Father Family Status - Relation Status Age at Father Level of Service:64675 [place] OFFICE/OUTPATIENT ESTABLISHED MOD MDM 30 MIN Reason for Visit and Comments: Atrial Fibrillation [80] Congestive Heart Failure [127] [facility] Office Visiton 05-23-2023 Follow-up visit [id number] Maximo Gill 1950 Date Provider Department Center 05/23/2023 RAMAN CASTANEDA CHING Salazar Family History Problem Relation Age of Onset Heart attack Father Diabetes Father Hypertension Father Coronary artery disease Father Rheum arthritis Father Family Status - Relation Status Age at Father Level of Service:98836 [place] OFFICE/OUTPATIENT ESTABLISHED LOW MDM 20-29 MIN [facility] CBC AUTO DIFFon 03-02-2023 BASO # 0.1 103/ul Normal 0.0-0.1 [facility] Comment on above: Performed By: #### C BC #### [facility] [address] [address] [address] Yandy Rodarte Basophils/100 WBC (Bld) 0.4 % Normal 0.2-2.0 [facility] Comment on above: Performed By: #### C BC #### [facility] [address] [address] [address] Yandy Rodarte EO # 0.5 103/ul Normal 0.0-0.7 [facility] Comment on above: Performed By: #### C BC #### [facility] [address] [place] [address] Dr. Yandy Rodarte Eosinophils/100 WBC (Bld) 4.1 % Normal 0.9-7.0 [facility] Comment on above: Performed By: #### C BC #### [facility] [address] [place] [address] Dr. Yandy Rodarte Erythrocyte distribution width (RBC) [Ratio] 14.0 % Normal 11.0-15.0 [facility] Comment on above: Performed By: #### C BC #### [facility] [address] [place] [address] Dr. Yandy Rodarte Hematocrit (Bld) [Volume fraction] 42.8 % Normal 36.0-48.0 [facility] Comment on above: Performed By: #### C BC #### [facility] [address] [place] [address] Dr. Yandy Rodarte Hemoglobin (Bld) [Mass/Vol] 13.6 g/dL Normal 12.0-16.0 [facility] Comment on above: Performed By: #### C BC #### [facility] [address] [place] [address] Dr. Yandy Rodarte IG # 0.04 10e3/ul Critically high 0.00-0.03 [facility] Comment on above: Performed By: #### C BC #### [facility] [address] [place] [address] Dr. Yandy Rodarte IG % 0.4 % Normal 0.0-0.5 [facility] Comment on above: Performed By: #### C BC #### [facility] [address] [place] [address] Dr. Yandy Rodarte LYMPH # 2.2 103/ul Normal 1.2-3.8 [facility] Comment on above: Performed By: #### C BC #### [facility] [address] [place] [address] Dr. Yandy Rodarte Lymphocytes/100 WBC (Bld) 20.0 % Critically low 20.5-60.0 [facility] Comment on above: Performed By: #### C BC #### [facility] [address] [place] [address] Dr. Yandy Rodarte MANUAL DIFF REQ NO Normal [facility] Comment on above: Performed By: #### C BC #### [facility] [address] [place] [address] Dr. Yandy Rodarte MCH (RBC) [Entitic mass] 28.2 pg Normal 26.7-34.0 [facility] Comment on above: Performed By: #### C BC #### [facility] [address] [place] [address] Dr. Yandy Rodarte MCHC (RBC) [Mass/Vol] 31.8 g/dL Normal 29.9-35.2 [facility] Comment on above: Performed By: #### C BC #### [facility] [address] [place] [address] Dr. Yandy Rodarte MCV (RBC) [Entitic vol] 88.8 fL Normal 81.0-99.0 [facility] Comment on above: Performed By: #### C BC #### [facility] [address] [place] [address] Dr. Yandy Rodarte MONO # 0.7 103/ul Normal 0.3-0.8 [facility] Comment on above: Performed By: #### C BC #### [facility] [address] [place] [address] Dr. Yandy Rodarte Monocytes/100 WBC (Bld) 6.3 % Normal 1.7-12.0 [facility] Comment on above: Performed By: #### C BC #### [facility] [address] [place] [address] Dr. Yandy Rodarte NEUT # 7.7 103/ul Critically high 1.4-6.5 [facility] Comment on above: Performed By: #### C BC #### [facility] [address] [place] [address] Dr. Yandy Rodarte Neutrophils/100 WBC (Bld) 68.8 % Normal 43.0-75.0 [facility] Comment on above: Performed By: #### C BC #### [facility] [address] [place] [address] Dr. Yandy Rodarte Platelet mean volume (Bld) [Entitic vol] 9.8 fL Normal 9.5-13.5 [facility] Comment on above: Performed By: #### C BC #### [facility] [address] [place] [address] Dr. Yandy Rodarte PLT 259 103/ul Normal 150-450 [facility] Comment on above: Performed By: #### C BC #### [facility] [address] [place] [address] Dr. Yandy Rodarte RBC 4.82 106/ul Normal 4.20-5.40 [facility] Comment on above: Performed By: #### C BC #### [facility] [address] [place] [address] Dr. Yandy Rodarte WBC 11.2 103/ul Critically high 4.0-11.0 [facility] Comment on above: Performed By: #### C BC #### [facility] [address] [place] [address] Dr. Yandy Rodarte ECHOCARDIO M/2D COMPLETEon 0 - ECHOCARDIO M/2D COMPLETE Patient: AFIA GILL Exam Date: 03/02/2023 : 1950 Gender:F Ordering : MRS. JESSICA PRECIADO SKI TOPPER Admission #: [id number] Family : Order #: [id number] CLICK HERE TO VIEW EXAM ECHOCARDIOGRAM REPORT [...] Left Atrium LA Volume Index (2D A2C): 461336 mm3 Left Atrium Systolic Dimension: 3.80 cm [...] Gomez M.D. on 03/02/2023 at 19:19 Normal [facility] LIPID PROFILEon 03-02-2023 CHOL-HDL RATIO NORM SEE BELOW Normal [facility] Comment on above: Result Comment: 3.3 - 4.4 LOW RISK 4.4 - 7.1 AVERAGE RISK 7.1 - 11.0 MODERATE RISK >11.0 HIGH RISK Performed By: #### L IPID, CMP #### [facility] [address] [address] [address] Yandy Rodarte Cholesterol [Mass/Vol] 203 mg/dL Critically high <=200 [facility] Comment on above: Performed By: #### L IPID, CMP #### [facility] [address] [address] [address] Yandy Rodarte Cholesterol in HDL [Mass/Vol] 35 mg/dL Critically low 40-60 [facility] Comment on above: Performed By: #### L IPID, CMP #### [facility] [address] [address] [address] Yandy Rodarte Cholesterol in LDL [Mass/Vol] 123.0 mg/dL Normal [facility] Comment on above: Performed By: #### L IPID, CMP #### [facility] [address] [address] [address] Yandy Rodarte Cholesterol.total/C holesterol in HDL [Mass ratio] 5.8 {ratio} Normal [facility] Comment on above: Performed By: #### L IPID, CMP #### [facility] [address] [address] [address] Yandy Rodarte HDL NORMAL > or = 60 mg/dl - LO W CARDIOVASCULAR RISK <40 mg/dl - HIGH CARDIOVASCULAR RISK Normal [facility] Comment on above: Performed By: #### L IPID, CMP #### [facility] [address] [address] [address] Yandy Rodarte LDL CALC NORMAL SEE BELOW Normal [facility] Comment on above: Result Comment: <100 mg/dl OPTIMAL 100 - 129 mg/dl NEAR OR ABOVE OPTIMAL 130 - 159 mg/dl BORDERLINE HIGH 160 - 189 mg/dl HIGH >190 mg/dl VERY HIGH Performed By: #### L IPID, CMP #### [facility] [address] [address] [address] Yandy Rodarte Triglyceride [Mass/Vol] 225 mg/dL Critically high <=150 [facility] Comment on above: Performed By: #### L IPID, CMP #### [facility] [address] [address] [address] Yandy Rodarte VLDL CALC 45.0 mg/dL Normal [facility] Comment on above: Performed By: #### L IPID, CMP #### [facility] [address] [address] [address] Yandy Rodarte PROF 14(COMP METB)on 023 Albumin [Mass/Vol] 3.5 g/dL Normal 3.4-5.0 [facility] Comment on above: Performed By: #### L IPID, CMP #### [facility] [address] [place] [address] Dr. Yandy Rodarte Albumin/Globulin [Mass ratio] 0.8 {ratio} Normal [facility] Comment on above: Performed By: #### L IPID, CMP #### [facility] [address] [place] [address] Dr. Yandy Rodarte ALP [Catalytic activity/Vol] 100 U/L Normal 46-116 [facility] Comment on above: Performed By: #### L IPID, CMP #### [facility] [address] [place] [address] Dr. Yandy Rodarte ALT [Catalytic activity/Vol] 22 U/L Normal 14-59 [facility] Comment on above: Performed By: #### L IPID, CMP #### [facility] [address] [address] [address] Yandy Rodarte Anion gap [Moles/Vol] 8.9 mmol/L Normal [facility] Comment on above: Performed By: #### L IPID, CMP #### [facility] [address] [address] [address] Yandy Rodarte AST [Catalytic activity/Vol] 17 U/L Normal 15-37 [facility] Comment on above: Performed By: #### L IPID, CMP #### [facility] [address] [address] [address] Yandy Rodarte Bilirubin [Mass/Vol] 0.4 mg/dL Normal 0.2-1.0 [facility] Comment on above: Performed By: #### L IPID, CMP #### [facility] [address] [place] [address] Dr. Yandy Rodarte Calcium [Mass/Vol] 9.2 mg/dL Normal 8.5-10.1 [facility] Comment on above: Performed By: #### L IPID, CMP #### [facility] [address] [address] [address] Yandy Rodarte Chloride [Moles/Vol] 104 mmol/L Normal 98-107 [facility] Comment on above: Performed By: #### L IPID, CMP #### [facility] [address] [place] [address] Dr. aYndy Rodarte CO2 [Moles/Vol] 32.6 mmol/L Critically high 21.0-32.0 [facility] Comment on above: Performed By: #### L IPID, CMP #### [facility] [address] [place] [address] Dr. Yandy Rodarte Creatinine [Mass/Vol] 0.81 mg/dL Normal 0.55-1.02 [facility] Comment on above: Performed By: #### L IPID, CMP #### [facility] [address] [place] [address] Dr. Yandy Rodarte EGFR-AF TAIWANESE >60 Normal >=60 [facility] Comment on above: Performed By: #### L IPID, CMP #### [facility] [address] [address] [address] Yandy Rodarte EGFR-NON AF TAIWANESE >60 Normal >=60 [facility] Comment on above: Performed By: #### L IPID, CMP #### [facility] [address] [address] [address] Yandy Rodarte Globulin (S) [Mass/Vol] 4.6 g/dL Normal [facility] Comment on above: Performed By: #### L IPID, CMP #### [facility] [address] [address] [address] Yandy Rodarte Glucose [Mass/Vol] 114 mg/dL Critically high 74-106 T [facility] Comment on above: Performed By: #### L IPID, CMP #### [facility] [address] [place] [address] Dr. Yandy Rodarte Potassium [Moles/Vol] 4.5 mmol/L Normal 3.5-5.1 [facility] Comment on above: Performed By: #### L IPID, CMP #### [facility] [address] [place] [address] Dr. Yandy Rodarte Protein [Mass/Vol] 8.1 g/dL Normal 6.4-8.2 [facility] Comment on above: Performed By: #### L IPID, CMP #### [facility] [address] [place] [address] Dr. Yandy Rodarte Sodium [Moles/Vol] 141 mmol/L Normal 136-145 [facility] Comment on above: Performed By: #### L IPID, CMP #### [facility] [address] [place] [address] Dr. Yandy Rodarte Urea nitrogen [Mass/Vol] 18.0 mg/dL Normal 7.0-18.0 [facility] Comment on above: Performed By: #### L IPID, CMP #### [facility] [address] [place] [address] Dr. Yandy Rodarte Urea nitrogen/Creatinine [Mass ratio] 22.2 mg/mg Normal [facility] Comment on above: Performed By: #### L IPID, CMP #### [facility] [address] [address] [address] Yandy Rodarte Office Visiton 02-19-2023 Follow-up visit [id number] Maximo Gill 1950 F Date Provider Department Center 02/19/2023 [id number] PRECIADO [facility] Family History Problem Relation Age of Onset Heart attack Father Diabetes Father Hypertension Father Coronary artery disease Father Rheum arthritis Father Family Status - Relation Status Age at Father Level of Service:55507 [place] OFFICE/OUTPATIENT ESTABLISHED MOD MDM 30-39 MIN Reason for Visit and Comments: Follow-up [129982] - 6 month follow up Normal [facility] MG MAMM SCREEN MARIELENA W CADon 0 12-27-2022 MG MAMM SCREEN MARIELENA W CAD Patient: AFIA GILL Exam Date: 12/27/2022 : 1950 Gender:F Ordering : DR YAHIR BROTHERS M.D. Admission #: [id number] Family : Order #: [id number] CLICK HERE TO VIEW EXAM RADIOLOGY REPORT [...] cervical cancer at age 37. LOCATION: [facility] BREAST COMPOSITION: Scattered areas fibroglandular density. [...] MD on 12/28/2022 at 09:38 Normal [facility] CT SINUSES WO CONon 05-18-20 22 [...] by: YAYA ZULUAGA Date: 2022-05-18 08:38 Normal [facility] BASIC METABOLIC PANELon 01-20 Calcium [Mass/Vol] 9.6 mg/dL Normal 8.6-10.3 [facility] Comment on above: Order Comment: No: D o not add to previous draw Performed By: #### 5 [id number] #### [facility] [address] [place] [address], [place] Chloride [Moles/Vol] 101 mmol/L Normal 98-107 [facility] Comment on above: Order Comment: No: D o not add to previous draw Performed By: #### 5 0608 #### [facility] [address] [place] [address], [place] CO2 [Moles/Vol] 29 mmol/L Normal 21-31 [facility] Comment on above: Order Comment: No: D o not add to previous draw Performed By: #### 5 0608 #### [facility] [address] [place] [address], [place] Creatinine [Mass/Vol] 0.71 mg/dL Normal 0.60-1.20 [facility] Comment on above: Order Comment: No: D o not add to previous draw Performed By: #### 5 0608 #### [facility] [address] [place] [address], [place] GFR/1.73 sq M predicted among blacks MDRD (S/P/Bld) [Vol rate/Area] mL/min/{1.73_m2} Normal >60 [facility] Comment on above: Order Comment: No: D o not add to previous draw Performed By: #### 5 [id number] #### [facility] [address] [place] [address], [place] GFR/1.73 sq M predicted among non-blacks MDRD (S/P/Bld) [Vol rate/Area] mL/min/{1.73_m2} Normal >60 [facility] Comment on above: Order Comment: No: D o not add to previous draw Performed By: #### 5 0608 #### [facility] [address] [place] [address], [place] Glucose [Mass/Vol] 127 mg/dL High 70-100 [facility] Comment on above: Order Comment: No: D o not add to previous draw Performed By: #### 5 [id number] #### [facility] [address] [place] [address], [place] Potassium [Moles/Vol] 4.3 mmol/L Normal 3.5-5.1 [facility] Comment on above: Order Comment: No: D o not add to previous draw Performed By: #### 5 0608 #### [facility] [address] [place] [address], [place] Sodium [Moles/Vol] 137 mmol/L Normal 136-145 [facility] Comment on above: Order Comment: No: D o not add to previous draw Performed By: #### 5 0608 #### [facility] [address] [place] [id number], [facility] Urea nitrogen [Mass/Vol] 20 mg/dL Normal 7-25 [facility] Comment on above: Order Comment: No: D o not add to previous draw Performed By: #### 5 [id number] #### [facility] [address] [place] [address], [facility] CBC COMPLETE BLOOD COUNTon - Erythrocyte distribution width (RBC) [Ratio] 14.6 % Normal 11.5-15.0 [facility] Comment on above: Order Comment: No: D o not add to previous draw Performed By: #### 5 [id number] #### [facility] [address] [place] [address], [facility] Hematocrit (Bld) [Volume fraction] 44.6 % Normal 36.0-45.0 [facility] Comment on above: Order Comment: No: D o not add to previous draw Performed By: #### 5 [id number] #### [facility] [address] [place] [address], [facility] Hemoglobin (Bld) [Mass/Vol] 14.1 g/dL Normal 12.0-15.0 [facility] Comment on above: Order Comment: No: D o not add to previous draw Performed By: #### 5 [id number] #### [facility] [address] [place] [address], [facility] MCH (RBC) [Entitic mass] 30.2 pg Normal 27.0-33.0 [facility] Comment on above: Order Comment: No: D o not add to previous draw Performed By: #### 5 [id number] #### [facility] [address] [place] [id number], [facility] MCHC (RBC) [Mass/Vol] 31.6 g/dL Low 32.0-35.0 [facility] Comment on above: Order Comment: No: D o not add to previous draw Performed By: #### 5 [id number] #### [facility] [address] [place] [address], [facility] MCV (RBC) [Entitic vol] 95.5 fL Normal 82.0-98.0 [facility] Comment on above: Order Comment: No: D o not add to previous draw Performed By: #### 5 [id number] #### [facility] [address] [place] [address], [facility] Nucleated RBC/100 WBC (Bld) [Ratio] 0 % Normal 0-0 [facility] Comment on above: Order Comment: No: D o not add to previous draw Performed By: #### 5 [id number] #### [facility] [address] [facility] [place] [address], [facility] PLAT CNT 250 10*3/uL Normal 150-400 [facility] Comment on above: Order Comment: No: D o not add to previous draw Performed By: #### 5 [id number] #### [facility] [address] [facility] [place] [address], [facility] RBC (Bld) [#/Vol] 4.67 10*6/uL Normal 3.80-5.00 [facility] Comment on above: Order Comment: No: D o not add to previous draw Performed By: #### 5 [id number] #### [facility] [address] [facility] [place] [address], [facility] WBC (Bld) [#/Vol] 9.20 10*3/uL Normal 4.00-10.60 [facility] Comment on above: Order Comment: No: D o not add to previous draw Performed By: #### 5 [id number] #### [facility] [address] POC GLUCOSE LABon 02-02-2019 Glucose [Mass/Vol] 146 mg/dL High 70-100 [facility] Comment on above: Performed By: #### 5 [id number] #### [facility] [address] [facility]. [address] Glucose [Mass/Vol] 115 mg/dL High 70-100 [facility] Comment on above: Performed By: #### 5 [id number] #### [facility] [address] [facility]. [address] PROTHROMBIN TIMEon 9 INR Coag (PPP) [Relative time] 1.22 {INR} High 0.91-1.16 [facility] Comment on above: Order Comment: No: [...] #### 5 0608 #### [facility] [address] [facility] [place] [address], [facility] PT Coag (PPP) [Time] 15.4 s High 12.3-14.8 [facility] Comment on above: Order Comment: No: D o not add to previous draw Result Comment: ALL RESULTS MUST BE INTERPRETED WITH RESPECT TO BLOOD DRAWING ARTIFACT OR DILUTION ERROR OF ANTICOAGULANT AT THE TIME OF SAMPLING. Performed By: #### 5 [id number] #### [facility] [address] [facility] [place] [address], [facility] POC GLUCOSE LABon 02-01-2019 Glucose [Mass/Vol] 152 mg/dL High 70-100 [facility] Comment on above: Performed By: #### 5 [id number] #### [facility] [address] [place] [id number], [facility] Glucose [Mass/Vol] 118 mg/dL High 70-100 [facility] Comment on above: Performed By: #### 5 [id number] #### [facility] [address] [place] [address], [place] Glucose [Mass/Vol] 197 mg/dL High 70-100 [facility] Comment on above: Performed By: #### 5 0608 #### [facility] [address] [facility] [place] [address], [facility] Glucose [Mass/Vol] 123 mg/dL High 70-100 [facility] Comment on above: Performed By: #### 5 0608 #### [facility] [address] [facility] [place] [address], [facility] PROTHROMBIN TIMEon 9 INR Coag (PPP) [Relative time] 1.24 {INR} High 0.91-1.16 [facility] Comment on above: Order Comment: Unkno [...] 0071 #### [facility] [address] [place] [address], [facility] PT Coag (PPP) [Time] 15.6 s High 12.3-14.8 [facility] Comment on above: Order Comment: Unkno wn Result Comment: ALL RESULTS MUST BE INTERPRETED WITH RESPECT TO BLOOD DRAWING ARTIFACT OR DILUTION ERROR OF ANTICOAGULANT AT THE TIME OF SAMPLING. Performed By: #### 0 0071 #### [facility] [address] [facility]. [address] BASIC METABOLIC PANELon 01-20 Calcium [Mass/Vol] 9.5 mg/dL Normal 8.6-10.3 [facility] Comment on above: Order Comment: No: D o not add to previous draw Performed By: #### 0 0071 #### [facility] [address] [facility] [place] [place] [address], [facility] Chloride [Moles/Vol] 98 mmol/L Normal 98-107 [facility] Comment on above: Order Comment: No: D o not add to previous draw Performed By: #### 0 0071 #### [facility] [address] [facility] [place] [place] [address], [facility] CO2 [Moles/Vol] 29 mmol/L Normal 21-31 [facility] Comment on above: Order Comment: No: D o not add to previous draw Performed By: #### 0 0071 #### [facility] [address] [facility] [place] [place] [address], [facility] Creatinine [Mass/Vol] 0.72 mg/dL Normal 0.60-1.20 [facility] Comment on above: Order Comment: No: D o not add to previous draw Performed By: #### 0 0071 #### [facility] [address] [place] [address], [place] GFR/1.73 sq M predicted among blacks MDRD (S/P/Bld) [Vol rate/Area] mL/min/{1.73_m2} Normal >60 [facility] Comment on above: Order Comment: No: D o not add to previous draw Performed By: #### 0 0071 #### [facility] [address] [place] [address], [facility] GFR/1.73 sq M predicted among non-blacks MDRD (S/P/Bld) [Vol rate/Area] mL/min/{1.73_m2} Normal >60 [facility] Comment on above: Order Comment: No: D o not add to previous draw Performed By: #### 0 0071 #### [facility] [address] [place] [address], [place] Glucose [Mass/Vol] 120 mg/dL High 70-100 [facility] Comment on above: Order Comment: No: D o not add to previous draw Performed By: #### 0 0071 #### [facility] [address] [place] [address], [place] Potassium [Moles/Vol] 3.5 mmol/L Normal 3.5-5.1 [facility] Comment on above: Order Comment: No: D o not add to previous draw Performed By: #### 0 0071 #### [facility] [address] [place] [address], [place] Sodium [Moles/Vol] 138 mmol/L Normal 136-145 [facility] Comment on above: Order Comment: No: D o not add to previous draw Performed By: #### 0 0071 #### [facility] [address] [place] [address], [facility] Urea nitrogen [Mass/Vol] 20 mg/dL Normal 7-25 [facility] Comment on above: Order Comment: No: D o not add to previous draw Performed By: #### 0 0071 #### [facility] [address] [place] [address], [facility] CBC COMPLETE BLOOD COUNTon 01-31-2019 Erythrocyte distribution width (RBC) [Ratio] 14.6 % Normal 11.5-15.0 [facility] Comment on above: Order Comment: No: D o not add to previous draw Performed By: #### 0 0071 #### [facility] [address] [place] [address], [facility] Hematocrit (Bld) [Volume fraction] 42.7 % Normal 36.0-45.0 [facility] Comment on above: Order Comment: No: D o not add to previous draw Performed By: #### 0 0071 #### [facility] [address] [place] [address], [facility] Hemoglobin (Bld) [Mass/Vol] 13.8 g/dL Normal 12.0-15.0 [facility] Comment on above: Order Comment: No: D o not add to previous draw Performed By: #### 0 0071 #### [facility] [address] [place] [address], [facility] MCH (RBC) [Entitic mass] 31.0 pg Normal 27.0-33.0 [facility] Comment on above: Order Comment: No: D o not add to previous draw Performed By: #### 0 0071 #### [facility] [address] [place] [address], [facility] MCHC (RBC) [Mass/Vol] 32.3 g/dL Normal 32.0-35.0 [facility] Comment on above: Order Comment: No: D o not add to previous draw Performed By: #### 0 0071 #### [facility] [address] [place] [address], [facility] MCV (RBC) [Entitic vol] 96.0 fL Normal 82.0-98.0 [facility] Comment on above: Order Comment: No: D o not add to previous draw Performed By: #### 0 0071 #### [facility] [address] [facility] [place] [address], [facility] Nucleated RBC/100 WBC (Bld) [Ratio] 0 % Normal 0-0 [facility] Comment on above: Order Comment: No: D o not add to previous draw Performed By: #### 0 0071 #### [facility] [address] [place] [address], [facility] PLAT CNT 217 10*3/uL Normal 150-400 [facility] Comment on above: Order Comment: No: D o not add to previous draw Performed By: #### 0 0071 #### [facility] [address] [place] [address], [facility] RBC (Bld) [#/Vol] 4.45 10*6/uL Normal 3.80-5.00 [facility] Comment on above: Order Comment: No: D o not add to previous draw Performed By: #### 0 0071 #### [facility] [address] [facility] [place] [address], [facility] WBC (Bld) [#/Vol] 9.17 10*3/uL Normal 4.00-10.60 [facility] Comment on above: Order Comment: No: D o not add to previous draw Performed By: #### 0 0071 #### [facility] [address] POC GLUCOSE LABon 01-31-2019 Glucose [Mass/Vol] 116 mg/dL High 70-100 [facility] Comment on above: Performed By: #### 0 0071 #### [facility] [address] [place] [address], [facility] Glucose [Mass/Vol] 122 mg/dL High 70-100 [facility] Comment on above: Performed By: #### 0 0071 #### [facility] [address] [place] [address], [place] Glucose [Mass/Vol] 191 mg/dL High 70-100 [facility] Comment on above: Performed By: #### 0 0071 #### [facility] [address] [place] [address], [place] Glucose [Mass/Vol] 131 mg/dL High 70-100 [facility] Comment on above: Performed By: #### 0 0071 #### [facility] [address] [place] [address], [facility] PROTHROMBIN TIMEon 9 INR Coag (PPP) [Relative time] 1.24 {INR} High 0.91-1.16 [facility] Comment on above: Order Comment: Unkno [...] 0071 #### [facility] [address] [place] [address], [facility] PT Coag (PPP) [Time] 15.6 s High 12.3-14.8 [facility] Comment on above: Order Comment: Unkno wn Result Comment: ALL RESULTS MUST BE INTERPRETED WITH RESPECT TO BLOOD DRAWING ARTIFACT OR DILUTION ERROR OF ANTICOAGULANT AT THE TIME OF SAMPLING. Performed By: #### 0 0071 #### [facility] [address] [place] [address], [facility] BASIC METABOLIC PANELon 01-20 Calcium [Mass/Vol] 10.0 mg/dL Normal 8.6-10.3 [facility] Comment on above: Order Comment: No: D o not add to previous draw Performed By: #### 0 0071 #### [facility] [address] [place] [address], [facility] Chloride [Moles/Vol] 99 mmol/L Normal 98-107 [facility] Comment on above: Order Comment: No: D o not add to previous draw Performed By: #### 0 0071 #### [facility] [address] [place] [address], [facility] CO2 [Moles/Vol] 30 mmol/L Normal 21-31 [facility] Comment on above: Order Comment: No: D o not add to previous draw Performed By: #### 0 0071 #### [facility] [address] [place] [address], [facility] Creatinine [Mass/Vol] 0.74 mg/dL Normal 0.60-1.20 [facility] Comment on above: Order Comment: No: D o not add to previous draw Performed By: #### 0 0071 #### [facility] [address] [place] [address], [facility] GFR/1.73 sq M predicted among blacks MDRD (S/P/Bld) [Vol rate/Area] mL/min/{1.73_m2} Normal >60 [facility] Comment on above: Order Comment: No: D o not add to previous draw Performed By: #### 0 0071 #### [facility] [address] [place] [address], [place] GFR/1.73 sq M predicted among non-blacks MDRD (S/P/Bld) [Vol rate/Area] mL/min/{1.73_m2} Normal >60 [facility] Comment on above: Order Comment: No: D o not add to previous draw Performed By: #### 0 0071 #### [facility] [address] [place] [address], [place] Glucose [Mass/Vol] 112 mg/dL High 70-100 [facility] Comment on above: Order Comment: No: D o not add to previous draw Performed By: #### 0 0071 #### [facility] [address] [place] [address], [place] Potassium [Moles/Vol] 4.3 mmol/L Normal 3.5-5.1 [facility] Comment on above: Order Comment: No: D o not add to previous draw Performed By: #### 0 0071 #### [facility] [address] [place] [address], [place] Sodium [Moles/Vol] 137 mmol/L Normal 136-145 [facility] Comment on above: Order Comment: No: D o not add to previous draw Performed By: #### 0 0071 #### [facility] [address] [place] [address], [place] Urea nitrogen [Mass/Vol] 20 mg/dL Normal 7-25 [facility] Comment on above: Order Comment: No: D o not add to previous draw Performed By: #### 0 0071 #### [facility] [address] [place] [address], [place] Calcium [Mass/Vol] 9.3 mg/dL Normal 8.6-10.3 [facility] Comment on above: Order Comment: No: D o not add to previous draw Performed By: #### 5 6101 #### [facility] [address] [place] [address], [place] Chloride [Moles/Vol] 103 mmol/L Normal 98-107 [facility] Comment on above: Order Comment: No: D o not add to previous draw Performed By: #### 5 6101 #### [facility] [address] [place] [address], [place] CO2 [Moles/Vol] 28 mmol/L Normal 21-31 [facility] Comment on above: Order Comment: No: D o not add to previous draw Performed By: #### 5 6101 #### [facility] [address] [place] [address], [place] Creatinine [Mass/Vol] 0.62 mg/dL Normal 0.60-1.20 [facility] Comment on above: Order Comment: No: D o not add to previous draw Performed By: #### 5 6101 #### [facility] [address] [place] [address], [place] GFR/1.73 sq M predicted among blacks MDRD (S/P/Bld) [Vol rate/Area] mL/min/{1.73_m2} Normal >60 [facility] Comment on above: Order Comment: No: D o not add to previous draw Performed By: #### 5 6101 #### [facility] [address] [place] [address], [place] GFR/1.73 sq M predicted among non-blacks MDRD (S/P/Bld) [Vol rate/Area] mL/min/{1.73_m2} Normal >60 [facility] Comment on above: Order Comment: No: D o not add to previous draw Performed By: #### 5 6101 #### [facility] [address] [place] [address], [place] Glucose [Mass/Vol] 117 mg/dL High 70-100 [facility] Comment on above: Order Comment: No: D o not add to previous draw Performed By: #### 5 6101 #### [facility] [address] [place] [address], [place] Potassium [Moles/Vol] 3.5 mmol/L Normal 3.5-5.1 [facility] Comment on above: Order Comment: No: D o not add to previous draw Performed By: #### 5 6101 #### [facility] [address] [place] [address], [place] Sodium [Moles/Vol] 140 mmol/L Normal 136-145 [facility] Comment on above: Order Comment: No: D o not add to previous draw Performed By: #### 5 6101 #### [facility] [address] [place] [address], [place] Urea nitrogen [Mass/Vol] 15 mg/dL Normal 7-25 [facility] Comment on above: Order Comment: No: D o not add to previous draw Performed By: #### 5 6101 #### [facility] [address] [place] [address], [place] CBC COMPLETE BLOOD COUNTon 0 - Erythrocyte distribution width (RBC) [Ratio] 14.6 % Normal 11.5-15.0 [facility] Comment on above: Order Comment: No: D o not add to previous draw Performed By: #### 5 6101 #### [facility] [address] [place] [address], [place] Hematocrit (Bld) [Volume fraction] 42.1 % Normal 36.0-45.0 [facility] Comment on above: Order Comment: No: D o not add to previous draw Performed By: #### 5 6101 #### [facility] [address] [place] [address], [place] Hemoglobin (Bld) [Mass/Vol] 13.4 g/dL Normal 12.0-15.0 [facility] Comment on above: Order Comment: No: D o not add to previous draw Performed By: #### 5 6101 #### [facility] [address] [place] [address], [facility] MCH (RBC) [Entitic mass] 30.6 pg Normal 27.0-33.0 [facility] Comment on above: Order Comment: No: D o not add to previous draw Performed By: #### 5 6101 #### [facility] [address] [place] [address], [facility] MCHC (RBC) [Mass/Vol] 31.8 g/dL Low 32.0-35.0 [facility] Comment on above: Order Comment: No: D o not add to previous draw Performed By: #### 5 6101 #### [facility] [address] [place] [address], [facility] MCV (RBC) [Entitic vol] 96.1 fL Normal 82.0-98.0 [facility] Comment on above: Order Comment: No: D o not add to previous draw Performed By: #### 5 6101 #### [facility] [address] [place] [address], [facility] Nucleated RBC/100 WBC (Bld) [Ratio] 0 % Normal 0-0 [facility] Comment on above: Order Comment: No: D o not add to previous draw Performed By: #### 5 6101 #### [facility] [address] [place] [address], [place] PLAT CNT 215 10*3/uL Normal 150-400 [facility] Comment on above: Order Comment: No: D o not add to previous draw Performed By: #### 5 6101 #### [facility] [address] [place] [id number], [facility] RBC (Bld) [#/Vol] 4.38 10*6/uL Normal 3.80-5.00 [facility] Comment on above: Order Comment: No: D o not add to previous draw Performed By: #### 5 6101 #### [facility] [address] WBC (Bld) [#/Vol] 8.75 10*3/uL Normal 4.00-10.60 [facility] Comment on above: Order Comment: No: D o not add to previous draw Performed By: #### 5 6101 #### [facility] [address] Cardiovascular Lab Reporton 01-30-2019 Cardiovascular Lab Report [facility] Patient Name: Afia Gill [facility] Kassy MR #: [id number] Department [facility] Physician[facility] Tay[facility] Gomez M.D. Division of Service Date: 01/29/2019 Cardiology Birthdate: 1950 Adult Cardiovascular Room #: 3AB [id number] [facility] [address] [place] [address] Cardiovascular Laboratory Report INDICATION: The patient is [...] signed informed consent. She was brought to scientific laboratory supervisor in a fasting state. The right neck area was prepped and draped in usual fashion. Using ultrasound guidance and micropuncture technique, the internal jugular vein was accessed. A 6-Sudanese x 11 cm sheath was placed. A 6-Sudanese Caldera catheter was used for right heart catheterization with measurement of pressures and calculation of cardiac output using the estimated Nader method. The Caldera catheter was removed. Using ultrasound guidance and micropuncture technique, the right radial artery was accessed. A 6-Sudanese x 11 cm Hydrophilic sheath was advanced. Verapamil was given through the sheath and a bolus of bivalirudin was given intravenously as the patient has prior history of heparin-induced thrombocytopenia. Note that, the care was taken to avoid any use of heparin during the procedure. Bilateral selective coronary angiography was then performed using 6-Sudanese JL3.5 and JR5 diagnostic catheters. Catheters were removed. A 6-Sudanese angled pigtail catheter was advanced over the [...] with 30% left ventricular ejection fraction. 3. Irlj-la-kylkgmxd mitral regurgitation. 4. Severely elevated filling pressures. [...] Gomez M.D. Date Trans: 01/30/2019 07:50 Kassy/ivan [id number] cc: Yahir Brothers M.D. [address] [address] Yahir Mijares M.D. [address] [address] Normal [facility] MAGNESIUM BLOODon 01-30-2019 Magnesium [Mass/Vol] 2.2 mg/dL Normal 1.9-2.7 [facility] Comment on above: Order Comment: No: D o not add to previous draw Performed By: #### 0 0071 #### [facility] [address] [place] [address], [facility] Magnesium [Mass/Vol] 2.2 mg/dL Normal 1.9-2.7 [facility] Comment on above: Order Comment: No: D o not add to previous draw Performed By: #### 5 6101 #### [facility] [address] [place] [address], [place] POC GLUCOSE LABon 01-30-2019 Glucose [Mass/Vol] 107 mg/dL High 70-100 [facility] Comment on above: Performed By: #### 5 6101 #### [facility] [address] [place] [address], [place] Glucose [Mass/Vol] 125 mg/dL High 70-100 [facility] Comment on above: Performed By: #### 5 6101 #### [facility] [address] [facility] [place] [address], [facility] Glucose [Mass/Vol] 137 mg/dL High 70-100 [facility] Comment on above: Performed By: #### 5 6101 #### [facility] [address] [facility] [place] [address], [facility] Glucose [Mass/Vol] 114 mg/dL High 70-100 [facility] Comment on above: Performed By: #### 5 6101 #### [facility] [address] PROTHROMBIN TIMEon 9 INR Coag (PPP) [Relative time] 1.23 {INR} High 0.91-1.16 [facility] Comment on above: Order Comment: No: [...] 5 6101 #### [facility] [address] PT Coag (PPP) [Time] 15.5 s High 12.3-14.8 [facility] Comment on above: Order Comment: No: D o not add to previous draw Result Comment: ALL RESULTS MUST BE INTERPRETED WITH RESPECT TO BLOOD DRAWING ARTIFACT OR DILUTION ERROR OF ANTICOAGULANT AT THE TIME OF SAMPLING. Performed By: #### 5 6101 #### [facility] [address] TSH3on 01-30-2019 TSH 3RD GENERATION 1.24 uIU/mL Normal 0.34-5.60 [facility] Comment on above: Order Comment: No: D o not add to previous draw Performed By: #### 5 6101 #### [facility] [address] CBC COMPLETE BLOOD COUNTon 0 01-29-2019 Erythrocyte distribution width (RBC) [Ratio] 14.7 % Normal 11.5-15.0 [facility] Comment on above: Order Comment: No: D o not add to previous draw Performed By: #### 5 0608 #### [facility] [address] Hematocrit (Bld) [Volume fraction] 43.4 % Normal 36.0-45.0 [facility] Comment on above: Order Comment: No: D o not add to previous draw Performed By: #### 5 0608 #### [facility] [address] Hemoglobin (Bld) [Mass/Vol] 13.8 g/dL Normal 12.0-15.0 [facility] Comment on above: Order Comment: No: D o not add to previous draw Performed By: #### 5 0608 #### [facility] [address] MCH (RBC) [Entitic mass] 30.3 pg Normal 27.0-33.0 [facility] Comment on above: Order Comment: No: D o not add to previous draw Performed By: #### 5 0608 #### [facility] [address] MCHC (RBC) [Mass/Vol] 31.8 g/dL Low 32.0-35.0 [facility] Comment on above: Order Comment: No: D o not add to previous draw Performed By: #### 5 0608 #### [facility] [address] [facility] [place] [address], [facility] MCV (RBC) [Entitic vol] 95.2 fL Normal 82.0-98.0 [facility] Comment on above: Order Comment: No: D o not add to previous draw Performed By: #### 5 0608 #### [facility] [address] [facility] Nucleated RBC/100 WBC (Bld) [Ratio] 0 % Normal 0-0 [facility] Comment on above: Order Comment: No: D o not add to previous draw Performed By: #### 5 0608 #### [facility] [address] [facility] [place] [address], [facility] PLAT CNT 240 10*3/uL Normal 150-400 [facility] Comment on above: Order Comment: No: D o not add to previous draw Performed By: #### 5 0608 #### [facility] [address] [facility] [place] [address], [facility] RBC (Bld) [#/Vol] 4.56 10*6/uL Normal 3.80-5.00 [facility] Comment on above: Order Comment: No: D o not add to previous draw Performed By: #### 5 0608 #### [facility] [address] [place] [address], [facility] WBC (Bld) [#/Vol] 9.28 10*3/uL Normal 4.00-10.60 [facility] Comment on above: Order Comment: No: D o not add to previous draw Performed By: #### 5 0608 #### [facility] [address] [place] [address], [place] COMP METABOLIC PANELon 01-29 Albumin [Mass/Vol] 4.1 g/dL Normal 3.5-5.7 [facility] Comment on above: Order Comment: No: D o not add to previous draw Performed By: #### 1 0070, [id number], [id number] #### [facility] [address] [place] [address], [place] ALKALINE PHOSPH 50 IU/L Normal 34-104 [facility] Comment on above: Order Comment: No: D o not add to previous draw Performed By: #### 1 0070, [id number], 47896 #### [facility] [address] [place] [address], [place] ALT [Catalytic activity/Vol] 14 U/L Normal 7-52 [facility] Comment on above: Order Comment: No: D o not add to previous draw Performed By: #### 1 0, 58887, 86584 #### [facility] [address] [place] [address], [place] AST [Catalytic activity/Vol] 15 U/L Normal 13-39 [facility] Comment on above: Order Comment: No: D o not add to previous draw Performed By: #### 1 0, 05845, 79920 #### [facility] [address] [place] [address], [place] Bilirubin [Mass/Vol] 0.8 mg/dL Normal 0.3-1.0 [facility] Comment on above: Order Comment: No: D o not add to previous draw Performed By: #### 1 0070, 71567, 12733 #### [facility] [address] [place] [address], [place] Calcium [Mass/Vol] 9.6 mg/dL Normal 8.6-10.3 [facility] Comment on above: Order Comment: No: D o not add to previous draw Performed By: #### 1 0070, 23998, 23122 #### [facility] [address] [place] [address], [place] Chloride [Moles/Vol] 103 mmol/L Normal 98-107 [facility] Comment on above: Order Comment: No: D o not add to previous draw Performed By: #### 1 0070, 78002, [id number] #### [facility] [address] [place] [address], [place] CO2 [Moles/Vol] 30 mmol/L Normal 21-31 [facility] Comment on above: Order Comment: No: D o not add to previous draw Performed By: #### 1 0, 32353, 75395 #### [facility] [address] [place] [address], [place] Creatinine [Mass/Vol] 0.71 mg/dL Normal 0.60-1.20 [facility] Comment on above: Order Comment: No: D o not add to previous draw Performed By: #### 1 0, 00653, 87804 #### [facility] [address] [place] [address], [place] GFR/1.73 sq M predicted among blacks MDRD (S/P/Bld) [Vol rate/Area] mL/min/{1.73_m2} Normal >60 [facility] Comment on above: Order Comment: No: D o not add to previous draw Performed By: #### 1 0070, 25314, 82396 #### [facility] [address] [place] [address], [place] GFR/1.73 sq M predicted among non-blacks MDRD (S/P/Bld) [Vol rate/Area] mL/min/{1.73_m2} Normal >60 [facility] Comment on above: Order Comment: No: D o not add to previous draw Performed By: #### 1 0, 41244, 55555 #### [facility] [address] [place] [address], [place] Glucose [Mass/Vol] 116 mg/dL High 70-100 [facility] Comment on above: Order Comment: No: D o not add to previous draw Performed By: #### 1 0, 46080, 49393 #### [facility] [address] [place] [address], [place] Potassium [Moles/Vol] 3.9 mmol/L Normal 3.5-5.1 [facility] Comment on above: Order Comment: No: D o not add to previous draw Performed By: #### 1 0, , 12813 #### [facility] [address] [place] [address], [place] Protein [Mass/Vol] 7.6 g/dL Normal 6.0-8.3 [facility] Comment on above: Order Comment: No: D o not add to previous draw Performed By: #### 1 0, , 19504 #### [facility] [address] [place] [address], [place] Sodium [Moles/Vol] 140 mmol/L Normal 136-145 [facility] Comment on above: Order Comment: No: D o not add to previous draw Performed By: #### 1 0, 98188, 24749 #### [facility] [address] [place] [address], [place] Urea nitrogen [Mass/Vol] 18 mg/dL Normal 7-25 [facility] Comment on above: Order Comment: No: D o not add to previous draw Performed By: #### 1 0, 00100, 01858 #### [facility] [address] [place] [address], [place] HEMOGLOBIN A1Con 01-29-2019 HbA1c (Bld) [Mass fraction] 6.1 % High 4.0-6.0 [facility] Comment on above: Order Comment: Yes: Add to Previous draw if able Performed By: #### 5 6101 #### [facility] [address] [place] [address], [place] HbA1c (Bld) [Mass fraction] 128 mg/dL High 70-126 [facility] Comment on above: Order Comment: Yes: Add to Previous draw if able Performed By: #### 5 6101 #### [facility] [address] [place] [address], [facility] LIPID PROFILEon 01-29-2019 Cholesterol [Mass/Vol] 130 mg/dL Normal 120-200 [facility] Comment on above: Result Comment: CHOL ESTEROL REFERENCE RANGE: 20 YEARS AND OLDER CARDIOVASCULAR RISK Less than 200 mg/dl Low Risk 200 to 239 mg/dl Borderline Risk 240 mg/dl and greater High Risk Performed By: #### 1 0070, 99883, 94429 #### [facility] [address] [place] [address], [place] Cholesterol in HDL [Mass/Vol] 31 mg/dL Normal 23-92 [facility] Comment on above: Result Comment: Slig ht variation in normal range could be due to gender and/or age. HDL CHOLESTEROL REFERENCE RANGE: 20 years and older Cardiovascular Risk > or =60 mg/dL Desirable 40 TO 59 mg/dL Low Risk <40 mg/dL High Risk Performed By: #### 1 0, 33489, 39492 #### [facility] [address] [place] [address], [place] Cholesterol in LDL [Mass/Vol] 67 mg/dL Normal 0-130 [facility] Comment on above: Result Comment: LDL IS A CALCULATION LDL IS ONLY VALID IF THE TRIG IS LESS THAN 400. Performed By: #### 1 0, 77698, 74045 #### [facility] [address] [place] [address], [place] Cholesterol.total/C holesterol in HDL [Mass ratio] 4.2 {ratio} Normal .0-4.5 [facility] Comment on above: Performed By: #### 1 0, 41513, 89898 #### [facility] [address] [place] [address], [facility] NON-HDL CHOLESTEROL 99 mg/dL Normal [facility] Comment on above: Performed By: #### 1 0070, 98834, 75683 #### [facility] [address] [place] [address], [facility] Triglyceride [Mass/Vol] 158 mg/dL High 40-149 [facility] Comment on above: Result Comment: TRIG LYCERIDE REFERENCE RANGE: 20 YEARS AND OLDER CARDIOVASCULAR RISK LESS THAN 150 mg/dl LOW RISK 150 TO 199 mg/dl BORDERLINE RISK 200 mg/dl AND GREATER HIGH RISK Performed By: #### 1 0, 23167, 90950 #### [facility] [address] [place] [address], [facility] VLDL CHOL 32 mg/dL Normal 0-40 [facility] Comment on above: Performed By: #### 1 0, 69381, 81178 #### [facility] [address] [place] [address], [facility] MAGNESIUM BLOODon 01-29-2019 Magnesium [Mass/Vol] 2.2 mg/dL Normal 1.9-2.7 [facility] Comment on above: Order Comment: No: D o not add to previous draw Performed By: #### 1 0, 59933, 62904 #### [facility] [address] [place] [address], [facility] POC GLUCOSE LABon 01-29-2019 Glucose [Mass/Vol] 102 mg/dL High 70-100 [facility] Comment on above: Performed By: #### 8 5499 #### [facility] [address] [place] [address], [place] Glucose [Mass/Vol] 131 mg/dL High 70-100 [facility] Comment on above: Performed By: #### 8 5499 #### [facility] [address] [facility]. [address] PROTHROMBIN TIMEon 9 INR Coag (PPP) [Relative time] 1.39 {INR} High 0.91-1.16 [facility] Comment on above: Order Comment: Yes: [...] #### 5 6101 #### [facility] [address] [facility] [place] [address], [facility] PT Coag (PPP) [Time] 17.1 s High 12.3-14.8 [facility] Comment on above: Order Comment: Yes: Add to Previous draw if able Result Comment: ALL RESULTS MUST BE INTERPRETED WITH RESPECT TO BLOOD DRAWING ARTIFACT OR DILUTION ERROR OF ANTICOAGULANT AT THE TIME OF SAMPLING. Performed By: #### 5 6101 #### [facility] [address] BASIC METABOLIC PANELon 04-0 Calcium [Mass/Vol] 10.1 mg/dL Normal 8.6-10.3 [facility] Comment on above: Performed By: #### 0 0071 #### [facility] [address] [place] [address], [place] Chloride [Moles/Vol] 100 mmol/L Normal 98-107 [facility] Comment on above: Performed By: #### 0 0071 #### [facility] [address] [place] [address], [place] CO2 [Moles/Vol] 30 mmol/L Normal 21-31 [facility] Comment on above: Performed By: #### 0 0071 #### [facility] [address] [place] [address], [place] Creatinine [Mass/Vol] 0.71 mg/dL Normal 0.60-1.20 [facility] Comment on above: Performed By: #### 0 0071 #### [facility] [address] [place] [address], [place] GFR/1.73 sq M predicted among blacks MDRD (S/P/Bld) [Vol rate/Area] mL/min/{1.73_m2} Normal >60 [facility] Comment on above: Performed By: #### 0 0071 #### [facility] [address] [place] [address], [place] GFR/1.73 sq M predicted among non-blacks MDRD (S/P/Bld) [Vol rate/Area] mL/min/{1.73_m2} Normal >60 [facility] Comment on above: Performed By: #### 0 0071 #### [facility] [address] [place] [address], [place] Glucose [Mass/Vol] 93 mg/dL Normal 70-100 [facility] Comment on above: Performed By: #### 0 0071 #### [facility] [address] [place] [address], [place] Potassium [Moles/Vol] 3.7 mmol/L Normal 3.5-5.1 [facility] Comment on above: Performed By: #### 0 0071 #### [facility] [address] [place] [address], [facility] Sodium [Moles/Vol] 139 mmol/L Normal 136-145 [facility] Comment on above: Performed By: #### 0 0071 #### [facility] [address] [place] [id number], [facility] Urea nitrogen [Mass/Vol] 16 mg/dL Normal 7-25 [facility] Comment on above: Performed By: #### 0 0071 #### [facility] [address] [place] [address], [facility] CBC COMPLETE BLOOD COUNTon 0 01-22-2019 Erythrocyte distribution width (RBC) [Ratio] 14.9 % Normal 11.5-15.0 [facility] Comment on above: Performed By: #### 5 0608 #### [facility] [address] [place] [id number], [facility] Hematocrit (Bld) [Volume fraction] 43.0 % Normal 36.0-45.0 [facility] Comment on above: Performed By: #### 5 0608 #### [facility] [address] [facility] [facility] [place] [address], [facility] Hemoglobin (Bld) [Mass/Vol] 13.7 g/dL Normal 12.0-15.0 [facility] Comment on above: Performed By: #### 5 0608 #### [facility] [address] [place] [address], [facility] MCH (RBC) [Entitic mass] 30.0 pg Normal 27.0-33.0 [facility] Comment on above: Performed By: #### 5 0608 #### [facility] [address] [place] [address], [facility] MCHC (RBC) [Mass/Vol] 31.9 g/dL Low 32.0-35.0 [facility] Comment on above: Performed By: #### 5 0608 #### [facility] [address] [facility]. [address] MCV (RBC) [Entitic vol] 94.3 fL Normal 82.0-98.0 [facility] Comment on above: Performed By: #### 5 0608 #### [facility] [address] Nucleated RBC/100 WBC (Bld) [Ratio] 0 % Normal 0-0 [facility] Comment on above: Performed By: #### 5 0608 #### [facility] [address] [facility]. [address] PLAT CNT 270 10*3/uL Normal 150-400 [facility] Comment on above: Performed By: #### 5 0608 #### [facility] [address] [facility]. [address] RBC (Bld) [#/Vol] 4.56 10*6/uL Normal 3.80-5.00 [facility] Comment on above: Performed By: #### 5 0608 #### [facility] [address] [place] [address], [facility] WBC (Bld) [#/Vol] 9.44 10*3/uL Normal 4.00-10.60 [facility] Comment on above: Performed By: #### 5 0608 #### [facility] [address] PROTHROMBIN TIMEon 9 INR Coag (PPP) [Relative time] 1.85 {INR} High 0.91-1.16 [facility] Comment on above: Result Comment: ACCC [...] #### 5 6101 #### [facility] [address] PT Coag (PPP) [Time] 21.4 s High 12.3-14.8 [facility] Comment on above: Result Comment: ALL RESULTS MUST BE INTERPRETED WITH RESPECT TO BLOOD DRAWING ARTIFACT OR DILUTION ERROR OF ANTICOAGULANT AT THE TIME OF SAMPLING. Performed By: #### 5 6101 #### [facility] [address] Encounters Encounter Date Encounter Type Care Provider Facility Start: 01-23-2024 End: 01-23-2024 ambulatory ANITA [facility] Start: 01-11-2024 End: 01-11-2024 ambulatory ANITA [facility] Start: 12-31-2023 End: 12-31-2023 ambulatory YAHIR BROTHERS [facility] Start: 12-26-2023 End: 12-29-2023 Evaluation and management of inpatient COLIN KEITH [facility] Start: 12-25-2023 End: 12-29-2023 Evaluation and management of inpatient BIJAL Vincent BARNHART [facility] Start: 12-21-2023 End: 12-29-2023 Orders Only Korina Oliver MD Work Phone: [facility] Start: 12-20-2023 End: 12-29-2023 Emergency department patient visit [facility] Start: 12-20-2023 End: 12-29-2023 Emergency department patient visit DANAE BRITTON [facility] Start: 12-20-2023 End: 12-28-2023 Evaluation and management of inpatient [facility] Start: 11-01-2023 End: 11-01-2023 ambulatory EBER [facility] Start: 10-31-2023 End: 10-31-2023 ambulatory YAHIR BROTHERS Not Available Start: 09-05-2023 End: 09-05-2023 ambulatory YAHIR BROTHERS Not Available Start: 07-07-2023 End: 07-10-2023 ambulatory YAHIR BROTHERS Not Available Start: 05-23-2023 End: 05-23-2023 ambulatory RAMAN KANGQING [facility] Start: 03-02-2023 End: 03-03-[address] DOCTOR LOYOLA Facility:[facility] Start: 02-19-2023 End: 02-19-2023 ambulatory [facility] Start: 12-27-2022 End: 12-28-[address] YAHIR BROTHERS Facility:[facility] Start: 05-17-2022 End: 05-18-[address] YAHIR BROTHERS Facility:[facility] Start: 01-29-2019 End: 02-02-2019 Evaluation and management of inpatient YAHIR BROTHERS Facility:[facility] Procedures Date Procedure Procedure Detail Performing [...] Td Vaccines (2 - Td or Tdap) [facility] Start: 12-20-2024 Adult BMI Screening Adult BMI Screen ing [facility] Start: 12-20-2024 Tobacco Screening Tobacco Screening [facility] Start: 06-22-2023 COVID-19 Vaccine ( season) COVID-19 Vaccine ( season) [facility] Start: 2017 Fall Risk Screening Fall Risk Screen ing [facility] Start: 1970 Adult BMI Follow Up Plan Adult BMI Follow Up Plan [facility] Start: 1964 Depression Screening Depression Scre ening [facility] Start: 1950 Medicare Annual Wellness Visit Medicare Annual Wellness Visit [facility] Immunizations Immunization Date Immunization Notes Care Provider Fa cility 02-04-2021 COVID-19, mRNA, LNP- S, PF, 100mcg/0.5mL Dose Korina Oliver MD Work Phone: [facility] 01-07-2021 COVID-19, mRNA, LNP- S, PF, 100mcg/0.5mL Dose Korina Oliver MD Work Phone: [facility] 08-03-2019 pneumococcal conjuga te vaccine, 13 valent Korina Oliver MD Work Phone: [facility] Payers Date Payer Category Payer Unknown [employer] [id number] 2022-Present [phone] [address] [place] [address] [id number] 1959 Unknown [id number] 1959 Unknown [id number] 1952 Unknown [id number] [id number] 1952 Unknown [id number] 2.16.840.1.365599.3.579.2.593 1952 Unknown [id number] 2.16.840.1.402528.3.579.2.593 1952 Unknown [id number] 2.16.840.1.476673.3.579.2.593 1952 Unknown [id number] 2.16.840.1.168427.3.579.2.1286 1952 Unknown [id number] 2.16.840.1.975912.3.579.2.1286 1952 Unknown [id number] 2.16.840.1.733455.3.579.2.1286 1952 Unknown [id number] 2.16.840.1.552574.3.579.2.1286 1952 Unknown [id number] 2.16.840.1.760212.3.579.2.1286 1952 Unknown [id number] 2.16.840.1.901506.3.579.2.1286 1952 Unknown [id number] 2.16.840.1.993081.3.579.2.1286 1952 Unknown [id number] 2.16.840.1.561338.3.579.2.1286 1952 Unknown [id number] 2.16.840.1.595259.3.579.2.1286 1952 Unknown [id number] 2.16.840.1.369426.3.579.2.1259 1952 Unknown [id number] 2.16.840.1.956867.3.579.2.1259 1952 Unknown [id number] 2.16.840.1.911453.3.579.2.1259 1952 Unknown [id number] 2.16.840.1.603434.3.579.2.1286 Medicare [id number] Social History Date Type Detail Facility Start: 12-20-2023 Tobacco smoking stat us [facility] Ex-smoker [employer] End: 03-11-2002 History of tobacco use Current smoker [employer] End: 03-11-2002 History of tobacco use [facility] Start: 12-02-2020 End: 12-20-2023 Cigarettes smoked current (pack per day) - Reported 1 [employer] Start: 12-20-2023 Tobacco use and exposure Smoke less tobacco non-user [facility] Start: 12-21-2023 Alcohol intake Ex-drinker (finding) [employer] Start: 12-02-2020 End: 12-20-2023 [employer] [facility] Has the [employer], or [employer] threatened to shut off services in your home in past 12Mo No [employer] In the past 12 month s, has lack of transportation kept you from medical appointments or from getting medications? No [employer] Start: 12-20-2023 Tobacco Comment quit 17 years ago Pr [employer] Start: 1950 Sex Assigned At Not on file P [employer] Goals Date Patient Goal Desired Activity /State [...] Past Medical History: Diagnosis Date Atrial fibrillation ([facility]) CHF (congestive heart failure) ([facility]) Hypertension Pulmonary embolism ([facility]) Past Surgical History: Past Surgical History: Procedure [...] on file Intimate Partner Violence: Unknown (12/13/2023) [place] Safety & Environment Fear of Current or [...] 2 ) G (more content not included)... [facility] Progress note 01-11-2024 Note Date & [...] today she has been residing [facility]. Her son was present via telephone [...] Past Medical History: Diagnosis Date Atrial fibrillation ([facility]) CHF (congestive heart failure) ([facility]) Hypertension Pulmonary embolism ([facility]) Past Surgical History: Past Surgical History: Procedure [...] on file Intimate Partner Violence: Unknown (12/13/2023) [place] Fear of Current or [...] kg (304 lb) (more content not included)... [facility] Progress note 11-01-2023 Note Date & Type Note Facility 11-01-2023 Note [facility] SUBJECTIVE Chief Complaint Patient presents with [...] Disp: , Rfl (more content not included)... [facility] Progress note 11-01-2023 Note Date & [...] All other systems reviewed and are negative. [facility] Progress note 05-23-2023 Note Date & Type Note Facility 05-23-2023 Note [place] [facility] Subjective Afia Gill is a [...] filling pressures. She (more content not included)... [facility] Progress note 02-19-2023 Note Date & [...] All other systems reviewed and are negative. [facility] Progress note 02-19-2023 Note Date & [...] Obstructive sleep apnea, on CPAP. Status post [place] filter. Morbid obesity. She is currently on oxygen since December 20, 2018. Holter done to investigate palpitations showed atrial fibrillation with NSVT. Stress test 01/13/2019;1. Fixed versus minimally reversible perfusion defect of the anterior septal wall and apex. 2. Marked cardiomegaly and markedly low ejection fraction, 36%. 3. Dyskinesia of the apex with otherwise global moderate hypokinesis. Echocardiogram 2 (more content not included)... [facility] Instructions Note Date & Type Note [...] PM Hospital Course Note MR#: [id number] I [facility] Pt. Name: Afia Gill Admitted: 01/29/2019 [...] and content) DATE CREATED AUTHOR 06/17/2019 [facility] DATE CREATED AUTHOR AUTHOR'S ORGANIZ ATION 03/03/2023 [facility] DATE CREATED AUTHOR AUTHOR'S ORGANIZ ATION 12/29/2023 [facility] DATE CREATED AUTHOR AUTHOR'S ORGANIZ ATION 12/29/2023 [facility] DATE CREATED AUTHOR AUTHOR'S ORGANIZ ATION 12/31/2023 [facility] DATE CREATED AUTHOR AUTHOR'S ORGANIZ ATION 01/31/2024 [facility] Care Teams (unrecognized sec tion and content) Director Of Income Tax Relationship Specialty Start Date End Date Yahir Brothers MD [address] [facility] [address] [place] [id number] PCP - General Internal Medicine 12/20/23 FOR [...] BE BASED ON THE PRIMARY CLINICAL RECORDS. [employer] [facility]. provides no warranty or guarantee of the accuracy or completeness of information in this document.
[2024-02-04 09:38] LABS: Basophils Absolute Auto 0.1 10^3/uL (0.0-0.1); Basophils Percent Auto 0.5 % (0.2-2.0); Eosinophils Absolute Auto 0.6 10^3/uL (0.0-0.7); Eosinophils Percent Auto 5.8 % (0.9-7.0); Hematocrit 35.7 % (36.0-48.0); Hemoglobin 11.2 g/dL (12.0-16.0); Immature Granulocytes Abs Auto 0.09 10^3/uL (0.00-0.03); Immature Granulocytes Pct Auto 0.9 % (0.0-0.5); Lymphocytes Absolute Auto 2.5 10^3/uL (1.2-3.8); Lymphocytes Percent Auto 24.1 % (20.5-60.0); Mean Corpuscular HGB Conc 31.4 g/dL (29.9-35.2); Mean Corpuscular Hemoglobin 28.6 pg (26.7-34.0); Mean Corpuscular Volume 91.1 fL (81.0-99.0); Mean Platelet Volume 10.6 fL (9.5-13.5); Monocytes Absolute Auto 0.6 10^3/uL (0.3-0.8); Monocytes Percent Auto 6.1 % (1.7-12.0); Neutrophils Absolute Auto 6.6 10^3/uL (1.4-6.5); Neutrophils Percent Auto 62.6 % (43.0-75.0); Platelet Count 231 10^3/uL (150-450); Red Blood Count 3.92 10^6/uL (4.20-5.40); Red Cell Distribution Width 14.4 % (11.0-15.0); White Blood Count 10.5 10^3/uL (4.0-11.0)
[2024-02-04 09:43] LABS: INR 1.99; Prothrombin Time 20.3 sec (9.0-11.6)
[2024-02-04 09:53] LABS: Alanine Aminotransferase 24 U/L (14-59); Albumin Globulin Ratio 0.7; Albumin Level 2.8 g/dL (3.4-5.0); Alkaline Phosphatase 84 U/L (46-116); Anion Gap 12.6; Aspartate Amino Transferase 20 U/L (15-37); BUN Creatinine Ratio 16.5; Bilirubin Direct <0.1 mg/dL (0.0-0.2); Bilirubin Total 0.2 mg/dL (0.2-1.0); Calcium 8.7 mg/dL (8.5-10.1); Carbon Dioxide 30.2 mmol/L (21.0-32.0); Chloride 102 mmol/L (98-107); Creatine Kinase 39 U/L (26-192); Estimated GFR (African America >60 (>=60); Estimated GFR (Non-African Ame >60 (>=60); Glucose 147 mg/dL (74-106); Potassium 3.8 mmol/L (3.5-5.1); Sodium 141 mmol/L (136-145); Total Protein 6.8 g/dL (6.4-8.2)
== END 2024-02-04 04:56 | disposition home or self-care (01) ==
LOC: LAB 04:55
PROVIDERS: PCP Internal Medicine; Visit Provider Family Medicine
DX: M86.9 Osteomyelitis, unspecified (principal); I48.91 Unspecified atrial fibrillation
CPT/HCPCS: 36415; 80048; 80076; 82550; 85025; 85610

== ENCOUNTER 2024-02-08 03:17 | Outpatient (REF) | payer MEDICARE, SELFPAY ==
--- OUTSIDE RECORDS SUMMARY | 2024-02-08 03:22 | XMS_ITS | CCD ---
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 Name Role Phone YAHIR BROTHERS Referring Unavailable YAHIR BROTHERS Primary Care Unavailable AHMED, LAN Attending Unavailable AHMED LAN Admitting Unavailable [place] Procedure Practitioner Unavailab le UNKNOWN, PROVIDER Surgeon Unavailable MISC, DR COLELO Admitting Unavailable MISC, DR COELLO Attending Unavailable [...] Care Unavailable ANDREA, DR GAO Consulting Unavailable CORINTH, DR JEANETTE Armenta Consulting Unavailable Yahir Brothers MD Primary Care Provider RAND CRAWFORD Attending Unavailable YAHIR BROTHERS Primary Care Unavailable KORINA OLIVER Admitting Unavailable DANIEL BIRMINGHAM Consulting Unavailable DIVISION OF INFECTIOUS DISEASE, [facility] Consulting Unavailable YAYA KUMAR Consulting Unavailable DANAE BRITTON Attending Unavailable DANAE BRITTON Referring Unavailable YAHIR BROTHERS Primary Care Unavailable DANAE BRITTON Attending Unavailable TOBI DANAE Kody Referring Unavailable YAHIR BROTHERS Primary Care Unavailable [...] (1 source) Estrogens Drug Allergy 9 [facility] (1 source) heparin Drug Allergy 9 [facility] (2 sources) Penicillins; Translations: [PENICILLINS] Drug allergy (disorder) 9 [facility] (2 sources) pregabalin Drug Allergy 9 [facility] (6 sources) Bleach (Sodium Hypochlorite); Translations: [Bleach (Sodium Hypochlorite)] Propensity to adverse reactions (disorder) 9 [facility] (4 sources) Aztreonam; Translations: [ESTROGENS, CONJUGATED] Drug Allergy 9 [facility] (1 source) heparin Drug Allergy The [facility] (5 sources) Penicillin; Translations: [PENICILLIN] Drug Allergy 9 [facility] (1 source) Misc-ENV; Translations: [Misc-ENV] Propensity to adverse reactions (disorder) [facility] (1 source) Estrogens, Conjugated (SKILLED NURSING) Drug Allergy 9 [facility] (4 sources) heparin; Translations: [HEPARIN (PORCINE)] Drug Allergy 9 [facility] (4 sources) pregabalin; Translations: [PREGABALIN] Drug Allergy 9 [facility] (3 sources) Other; Translations: [OTHER] Propensity to adverse reactions 1 Rash [facility] (1 source) heparin; Translations: [HEPARIN SODIUM, PORCINE] Drug Allergy 1 [facility] Medications Completed/Discontinued Medications Medication Drug Class(es) [...] any current signs or symptoms of infection. [facility] 36 Call from Simran rodriguez that pt's wbc remains elevated. Explained to nurse to have pt follow up with Podiatry. Raysa will call for an appt today. [facility] Telephoneon 01-30-2024 Telephone [phone] Maximo Gill 1950 F Date Provider Department Center 01/30/2024 ANITA JONES [facility] Family History Problem Relation Age of Onset Heart attack Father Diabetes Father Hypertension Father Coronary artery disease Father Rheum arthritis Father Family Status - Relation Status Age at Father [facility] 01-25-2024 36 The patient is exhibiting leukocytosis based on labs obtained earlier today and available under Media. Can you contact her SNF to see if she is having any new or recurrent signs or symptoms of infection? [facility] Telephoneon 01-25-2024 Telephone [phone] Maximo Gill 1950 F Date Provider Department Center 01/25/2024 [facility] History Problem Relation Age of Onset Heart attack Father Diabetes Father Hypertension Father Coronary artery disease Father Rheum arthritis Father Family Status - Relation Status Age at Father [facility] 36on 01-23-2024 36 Message left for gilmer se Ugalde at the SNF that pt may end treatment 01/30 as scheduled and may have her picc line removed. [facility] Follow-Upon 01-23-2024 Follow-Up [id number] Maximo Gill tiffanie A 1950 F Date Provider Department Center 01/23/2024 ANITA JONES [facility] Family History Problem Relation Age of Onset Heart attack Father Diabetes Father Hypertension Father Coronary artery disease Father Rheum arthritis Father Family Status - Relation Status Age at Father Level of Service:37804 [place] OFFICE/OUTPATIENT ESTABLISHED MOD MDM 30 MIN Reason for Visit and Comments: Follow-up [796799] - Pt is here for evaluation of [...] and walk which were both difficult before. [facility] 36on 01-22-2024 36 I attempted to call [facility] to get an updated copy of this patient's labs, but the phone rang through without an answer. The patient is following up tomorrow. [facility] Telephoneon 01-22-2024 Telephone [phone] Casa,Sha tiffanie Elena 1950 F Date Provider Department Center 01/22/2024 ANITA JONES [facility] Family History Problem Relation Age of Onset Heart attack Father Diabetes Father Hypertension Father Coronary artery disease Father Rheum arthritis Father Family Status - Relation Status Age at Father [facility] Follow-Upon 01-11-2024 Follow-Up [id number] CasaMaximo Elena 1950 F Date Provider Department Center 01/11/2024 [facility] Family History Problem Relation Age of Onset Heart attack Father Diabetes Father Hypertension Father Coronary artery disease Father Rheum arthritis Father Family Status - Relation Status Age at Father Level of Service:90091 [place] OFFICE/OUTPATIENT ESTABLISHED MOD MDM 30 MIN Reason for Visit and Comments: PPD Read [[id number]] - Follow up Toes feel better Normal [facility] 36on 01-09-2024 36 Opat received. Call to [facility] and confirmed orders. Labs will be drawn 01/09. Staff was not aware of the appt today so the visit is rescheduled for 01/10. Normal [facility] CBC AND AUTO DIFFon 12-28-19 24 ABSOLUTE BASOPHIL 0.1 X10E9/L Normal 0.0-0.2 [facility] Comment on above: Performed By: #### U A #### [facility] ([id number]) [address] [place] [address] 16227 ABSOLUTE NEUTROPHIL 9.5 X10E9/L High 1.5-6.6 [facility] Comment on above: Performed By: #### U A #### [facility] ([id number]) [address] [place] [address] 22786 Basophils/100 WBC (Bld) 0.5 % Normal [facility] Comment on above: Performed By: #### U A #### [facility] ([id number]) [address] [place] [address] 37543 Eosinophils (Bld) [#/Vol] 0.8 10*3/uL High 0.0-0.4 [facility] Comment on above: Performed By: #### U A #### [facility] ([id number]) [address] [place] [address] 86198 Eosinophils/100 WBC (Bld) 5.8 % Normal [facility] Comment on above: Performed By: #### U A #### [facility] ([id number]) [address] [place] [address] 07468 Erythrocyte distribution width (RBC) [Ratio] 13.6 % Normal 11.5-15.0 [facility] Comment on above: Performed By: #### U A #### [facility] ([id number]) [address] [place] [address] 73335 Hematocrit (Bld) [Volume fraction] 35.5 % Normal 35-47 [facility] Comment on above: Performed By: #### U A #### [facility] ([id number]) [address] [place] [address] 40706 Hemoglobin (Bld) [Mass/Vol] 11.9 g/dL Normal 11.7-15.5 [facility] Comment on above: Performed By: #### U A #### [facility] ([id number]) [address] [place] [address] 32961 Lymphocytes (Bld) [#/Vol] 2.6 10*3/uL Normal 1.0-3.5 [facility] Comment on above: Performed By: #### U A #### [facility] ([id number]) [address] [place] [address] 49804 Lymphocytes/100 WBC (Bld) 19.1 % Normal [facility] Comment on above: Performed By: #### U A #### [facility] ([id number]) [address] [place] [address] 71795 MCH (RBC) [Entitic mass] 28.7 pg Normal 27-34 [facility] Comment on above: Performed By: #### U A #### [facility] ([id number]) [address] [place] [address] 57186 MCHC (RBC) [Mass/Vol] 33.4 g/dL Normal 32-36 [facility] Comment on above: Performed By: #### U A #### [facility] ([id number]) [address] [place] [address] 27300 MCV (RBC) [Entitic vol] 86 fL Normal 80-100 [facility] Comment on above: Performed By: #### U A #### [facility] ([id number]) [address] [place] [address] 62448 Monocytes (Bld) [#/Vol] 0.7 10*3/uL Normal 0-0.9 [facility] Comment on above: Performed By: #### U A #### [facility] ([id number]) [address] [place] [address] 53189 Monocytes/100 WBC (Bld) 5.3 % Normal [facility] Comment on above: Performed By: #### U A #### [facility] ([id number]) [address] [place] [address] 81986 Neutrophils/100 WBC (Bld) 69.3 % Normal [facility] Comment on above: Performed By: #### U A #### [facility] ([id number]) [address] [place] [address] 98065 Platelet mean volume (Bld) [Entitic vol] 8.7 fL Normal 7-12 [facility] Comment on above: Performed By: #### U A #### [facility] ([id number]) [address] [place] [address] 62365 Platelets (Bld) [#/Vol] 335 10*3/uL Normal 150-450 [facility] Comment on above: Performed By: #### U A #### [facility] ([id number]) [address] [place] [address] 74813 RBC COUNT 4.13 X10E12/L Normal 3.80-5.20 [facility] Comment on above: Performed By: #### U A #### [facility] ([id number]) [address] [place] [address] 07737 WBC (Bld) [#/Vol] 13.7 10*3/uL High 4.0-11.[address] [facility] Comment on above: Performed By: #### U A #### [facility] ([id number]) [address] [place] [address] [place] [address] COMPREHENSIVE METABOLIC PANE Tyrone 12-28-2023 Albumin [Mass/Vol] 3.1 g/dL Low 3.2-5.3 [facility] Comment on above: Performed By: #### U A #### [facility] ([id number]) [address] [place] [address] [place] [address] ALP [Catalytic activity/Vol] 68 U/L Normal 39-130 [facility] Comment on above: Performed By: #### U A #### [facility] ([id number]) [address] [place] [address] 39836 ALT [Catalytic activity/Vol] 21 U/L Normal 0-31 [facility] Comment on above: Performed By: #### U A #### [facility] ([id number]) [address] [place] [address] 07486 Anion gap [Moles/Vol] 10 mmol/L Normal 5-15 [facility] Comment on above: Performed By: #### U A #### [facility] ([id number]) [address] [place] [address] 75538 AST [Catalytic activity/Vol] 21 U/L Normal 0-41 [facility] Comment on above: Performed By: #### U A #### [facility] ([id number]) [address] [place] [address] [place] [address] Bilirubin [Mass/Vol] 0.4 mg/dL Normal 0.3-1.2 [facility] Comment on above: Performed By: #### U A #### [facility] ([id number]) [address] [place] [address] 23739 Calcium [Mass/Vol] 8.6 mg/dL Normal 8.5-10.5 [facility] Comment on above: Performed By: #### U A #### [facility] ([id number]) [address] [place] [address] 70750 Chloride [Moles/Vol] 98 mmol/L Normal 98-109 [facility] Comment on above: Performed By: #### U A #### [facility] ([id number]) [address] [place] [address] 86594 CO2 [Moles/Vol] 31 mmol/L Normal 22-32 [facility] Comment on above: Performed By: #### U A #### [facility] ([id number]) [address] [place] [address] 53062 Creatinine [Mass/Vol] 0.72 mg/dL Normal 0.40-1.00 [facility] Comment on above: Result Comment: METH OD TRACEABLE TO IDMS STANDARD Performed By: #### U A #### [facility] ([id number]) [address] [place] [address] 82211 GFR/1.73 sq M.predicted among non-blacks MDRD (S/P/Bld) [Vol rate/Area] 89 mL/min/{1.73_m2} Normal >59 [facility] Comment on above: Result Comment: Reported eGFR is based on the CKD-EPI 2020 equation that does not use a race coefficient. Performed By: #### U A #### [facility] ([id number]) [address] [place] [address] 20177 Glucose [Mass/Vol] 123 mg/dL High 65-99 [facility] Comment on above: Performed By: #### U A #### [facility] ([id number]) [address] [place] [address] 77771 Potassium [Moles/Vol] 3.7 mmol/L Normal 3.5-5.0 [facility] Comment on above: Performed By: #### U A #### [facility] ([id number]) [address] [place] [address] 77766 Protein [Mass/Vol] 7.1 g/dL Normal 6.0-8.0 [facility] Comment on above: Performed By: #### U A #### [facility] ([id number]) [address] [place] [address] 13209 Sodium [Moles/Vol] 139 mmol/L Normal 134-146 [facility] Comment on above: Performed By: #### U A #### [facility] ([id number]) [address] [place] [address] 09043 Urea nitrogen [Mass/Vol] 16 mg/dL Normal 5-27 [facility] Comment on above: Performed By: #### U A #### [facility] ([id number]) [address] [place] [address] 53036 MAGNESIUMon 12-28-2023 Magnesium [Mass/Vol] 2.3 mg/dL Normal 1.8-2.6 [facility] Comment on above: Performed By: #### U A #### [facility] ([id number]) [address] [place] [address] 90882 PROTIME AND INRon 12-28-2023 INR Coag (PPP) [Relative time] 2.5 {INR} High 0.8-1.1 [facility] Comment on above: Performed By: #### U A #### [facility] ([id number]) [address] [place] [address] 58002 PT Coag (PPP) [Time] 28.0 s High 9.8-13.2 [facility] Comment on above: Result Comment: NEW REFERENCE RANGE Performed By: #### U A #### [facility] ([id number]) [address] [place] [address] 97503 Vancomycin trough [Mass/Vol] on 03-08-2024 VANCOMYCIN TROUGH 26.7 ug/mL Critically high 5.0-20.0 [facility] Comment on above: Performed By: #### U A #### [facility] ([id number]) [address] [place] [address] 53843 CBC AND AUTO DIFFon 12-27-19 24 ABSOLUTE BASOPHIL 0.0 X10E9/L Normal 0.0-0.2 [facility] Comment on above: Performed By: #### Chanel ERICKSON CMP, 1986-02 #### [facility] ([id number]) [address] [place] [address] 67447 #### 52379-5 #### [facility] ([id number]) [address] [place] [address] ABSOLUTE NEUTROPHIL 8.9 X10E9/L High 1.5-6.6 [facility] Comment on above: Performed By: #### Chanel [facility]ICKSON [facility], 1988-02 #### [facility] ([id number]) [address] [place] [address] 04911 #### 15975-3 #### [facility] ([id number]) [address] [place] [address] Basophils/100 WBC (Bld) 0.3 % Normal [facility] Comment on above: Performed By: #### Chanel ERICKSON CMP, 1986-02 #### [facility] ([id number]) [address] [place] [address] 27073 #### 10531-5 #### [facility] ([id number]) [address] [place] [address] Eosinophils (Bld) [#/Vol] 0.8 10*3/uL High 0.0-0.4 [facility] Comment on above: Performed By: #### Chanel ERICKSON CMP, 1986-02 #### [facility] ([id number]) [address] [place] [address] 33468 #### 80042-5 #### [facility] ([id number]) [address] [place] [address] Eosinophils/100 WBC (Bld) 6.1 % Normal [facility] Comment on above: Performed By: #### Chanel ERICKSON CMP, 1986-02 #### [facility] ([id number]) [address] [place] [address] 00523 #### 82053-8 #### [facility] ([id number]) [address] [place] [address] Erythrocyte distribution width (RBC) [Ratio] 13.7 % Normal 11.5-15.0 [facility] Comment on above: Performed By: #### Chanel ERICKSON CMP, 1986-02 #### [facility] ([id number]) [address] [place] [address] 43801 #### 81455-5 #### [facility] ([id number]) [address] [place] [address] Hematocrit (Bld) [Volume fraction] 34.5 % Low 35-47 [facility] Comment on above: Performed By: #### Chanel ERICKSON CMP, 1986-02 #### [facility] ([id number]) [address] [place] [address] 98337 #### 62956-1 #### [facility] ([id number]) [address] [place] [address] Hemoglobin (Bld) [Mass/Vol] 11.5 g/dL Low 11.7-15.5 [facility] Comment on above: Performed By: #### Chanel ERICKSON CMP, 1986-02 #### [facility] ([id number]) [address] [place] [address] 57020 #### 43462-4 #### [facility] ([id number]) [address] [place] [address] Lymphocytes (Bld) [#/Vol] 2.4 10*3/uL Normal 1.0-3.5 [facility] Comment on above: Performed By: #### Chanel ERICKSON CMP, 1988-02 #### [facility] ([id number]) [address] [place] [address] 62534 #### 03371-8 #### [facility] ([id number]) [address] [place] [address] Lymphocytes/100 WBC (Bld) 18.4 % Normal [facility] Comment on above: Performed By: #### Chanel ERICKSON CMP, 1988-02 #### [facility] ([id number]) [address] [place], [place] [address] #### 21709-0 #### [facility] ([id number]) [address] [place] [address] MCH (RBC) [Entitic mass] 28.8 pg Normal 27-34 [facility] Comment on above: Performed By: #### Chanel ERICKSON CMP, 1988-02 #### [facility] ([id number]) [address] [place] [address] 34795 #### 84886-2 #### [facility] ([id number]) [address], [address] [place] [address] MCHC (RBC) [Mass/Vol] 33.3 g/dL Normal 32-36 [facility] Comment on above: Performed By: #### Chanel ERICKSON CMP, 1988-02 #### [facility] ([id number]) [address] [place] [address] 95710 #### 59697-2 #### [facility] ([id number]) [address], [address] [place] [address] MCV (RBC) [Entitic vol] 87 fL Normal 80-100 [facility] Comment on above: Performed By: #### Chanel ERICKSON CMP, 1988-02 #### [facility] ([id number]) [address] [place] [address] 39498 #### 13724-4 #### [facility] ([id number]) [address], [address] [place] [address] Monocytes (Bld) [#/Vol] 0.9 10*3/uL Normal 0-0.9 [facility] Comment on above: Performed By: #### Chanel ERICKSON CMP, 1988-02 #### [facility] ([id number]) [address] [place] [address] 92869 #### 55692-3 #### [facility] ([id number]) [address] [place] [address] Monocytes/100 WBC (Bld) 7.1 % Normal [facility] Comment on above: Performed By: #### Chanel ERICKSON CMP, 1988-02 #### [facility] ([id number]) [address] [place] [address] 54427 #### 36803-9 #### [facility] ([id number]) [address] [place] [address] Neutrophils/100 WBC (Bld) 68.1 % Normal [facility] Comment on above: Performed By: #### Chanel ERICKSON CMP, 1988-02 #### [facility] ([id number]) [address] [place] [address] 20922 #### 55292-2 #### [facility] ([id number]) [address] [place] [address] Platelet mean volume (Bld) [Entitic vol] 8.7 fL Normal 7-12 [facility] Comment on above: Performed By: #### Chanel ERICKSON CMP, 1988-02 #### [facility] ([id number]) [address] [place] [address] 22637 #### 42405-0 #### [facility] ([id number]) [address] [place] [address] Platelets (Bld) [#/Vol] 323 10*3/uL Normal 150-450 [facility] Comment on above: Performed By: #### Chanel ERICKSON CMP, 1988-02 #### [facility] ([id number]) [address] [place] [address] 86601 #### 80259-4 #### [facility] ([id number]) [address], [address] [place] [address] RBC COUNT 3.98 X10E12/L Normal 3.80-5.20 [facility] Comment on above: Performed By: #### Chanel ERICKSON CMP, 1988-02 #### [facility] ([id number]) [address] [place] [address] 76359 #### 19830-3 #### [facility] ([id number]) [address] [place] [address] WBC (Bld) [#/Vol] 13.1 10*3/uL High 4.0-11.[address] [facility] Comment on above: Performed By: #### Chanel ERICKSON CMP, 1988-02 #### [facility] ([id number]) [address] [place] [address] 08855 #### 25242-9 #### [facility] ([id number]) [address] [place] [address] COMPREHENSIVE METABOLIC PANE Tyrone 12-27-2023 Albumin [Mass/Vol] 3.0 g/dL Low 3.2-5.3 [facility] Comment on above: Performed By: #### Chanel ERICKSON CMP, 1988-02 #### [facility] ([id number]) [address] [place] [address] 74370 #### 98892-5 #### [facility] ([id number]) [address] [place] [address] ALP [Catalytic activity/Vol] 68 U/L Normal 39-130 [facility] Comment on above: Performed By: #### Chanel ERICKSON CMP, 1988-02 #### [facility] ([id number]) [address] [place] [address] 95807 #### 74439-5 #### [facility] ([id number]) [address] [place] [address] ALT [Catalytic activity/Vol] 17 U/L Normal 0-31 [facility] Comment on above: Performed By: #### Chanel ERICKSON CMP, 1988-02 #### [facility] ([id number]) [address] [place] [address] 72401 #### 43749-1 #### [facility] ([id number]) [address] [place] [address] Anion gap [Moles/Vol] 8 mmol/L Normal 5-15 [facility] Comment on above: Performed By: #### C BCA, CMP, 1988-02 #### [facility] ([id number]) [address] [place] [address] 69328 #### 70511-3 #### [facility] ([id number]) [address] [place] [address] AST [Catalytic activity/Vol] 16 U/L Normal 0-41 [facility] Comment on above: Performed By: #### C BCA, CMP, 1988-02 #### [facility] ([id number]) [address] [place] [address] 86647 #### 53963-5 #### [facility] ([id number]) [address] [place] [address] Bilirubin [Mass/Vol] 0.5 mg/dL Normal 0.3-1.2 [facility] Comment on above: Performed By: #### C BCA, CMP, 1988-02 #### [facility] ([id number]) [address] [place] [address] #### [id number] #### [facility] ([id number]) [address] [place] [address] Calcium [Mass/Vol] 8.3 mg/dL Low 8.5-10.5 [facility] Comment on above: Performed By: #### C BCA, CMP, 1988-02 #### [facility] ([id number]) [address] [place] [address] #### [id number] #### [facility] ([id number]) [address] [place] [address] Chloride [Moles/Vol] 99 mmol/L Normal 98-109 [facility] Comment on above: Performed By: #### C BCA, CMP, 1988-02 #### [facility] ([id number]) [address] [place] [address] 49083 #### [id number] #### [facility] ([id number]) [address], [address] [place] [address] CO2 [Moles/Vol] 31 mmol/L Normal 22-32 [facility] Comment on above: Performed By: #### C BCA, CMP, 1988-02 #### [facility] ([id number]) [address] [place] [address] 24879 #### 78044-9 #### [facility] ([id number]) [address], [address] [place] [address] Creatinine [Mass/Vol] 0.71 mg/dL Normal 0.40-1.00 [facility] Comment on above: Result Comment: METH OD TRACEABLE TO IDMS STANDARD Performed By: #### C DRE [facility], 1988-02 #### [facility] ([id number]) [address] [place] [address] 84921 #### 71439-7 #### [facility] ([id number]) [address], [address] [place] [address] eGFR (CKD-EPI) NON-RACE DEPENDENT >90 Normal >59 [facility] Comment on above: Result Comment: Reported eGFR is based on the CKD-EPI 2020 equation that does not use a race coefficient. Performed By: #### C DRE [facility], 1988-02 #### [facility] ([id number]) [address] [place] [address] 80109 #### 72360-7 #### [facility] ([id number]) [address], [address] [place] [address] Glucose [Mass/Vol] 119 mg/dL High 65-99 [facility] Comment on above: Performed By: #### C DRE [facility], 1988-02 #### [facility] ([id number]) [address] [place] [address] 64103 #### [phone] #### [facility] ([id number]) [address], [address] [place] [address] Potassium [Moles/Vol] 3.6 mmol/L Normal 3.5-5.0 [facility] Comment on above: Performed By: #### Chanel ERICKSON, [facility], 1988-02 #### [facility] ([id number]) [address] [place] [address] 77662 #### [phone] #### [facility] ([id number]) [address], [address] [place] [address] Protein [Mass/Vol] 7.0 g/dL Normal 6.0-8.0 [facility] Comment on above: Performed By: #### C DRE [facility], 1988-02 #### [facility] ([id number]) [address] [place] [address] 82332 #### 09784-8 #### [facility] ([id number]) [address], [address] [place] [address] Sodium [Moles/Vol] 138 mmol/L Normal 134-146 [facility] Comment on above: Performed By: #### Chanel ERICKSON [facility], 1988-02 #### [facility] ([id number]) [address] [place] [address] 96373 #### 13636-5 #### [facility] ([id number]) [address], [address] [place] [address] Urea nitrogen [Mass/Vol] 18 mg/dL Normal 5-27 [facility] Comment on above: Performed By: #### Chanel ERICKSON [facility], 1988-02 #### [facility] ([id number]) [address] [place] [address] 19406 #### 53374-4 #### [facility] ([id number]) [address], [address] [place] [address] Glucose Glucometer (BldC) [M ass/Vol]on 12-27-2023 Glucose [Mass/Vol] 149 mg/dL High 65-99 [facility] Glucose [Mass/Vol] 156 mg/dL High 65-99 [facility] Glucose [Mass/Vol] 181 mg/dL High 65-99 [facility] MAGNESIUMon 12-27-2023 Magnesium [Mass/Vol] 2.3 mg/dL Normal 1.8-2.6 [facility] Comment on above: Performed By: #### U A #### [facility] ([id number]) [address] [place] [address] PROTIME AND INRon 12-27-2023 INR Coag (PPP) [Relative time] 2.9 {INR} High 0.8-1.1 [facility] Comment on above: Performed By: #### Chanel ERICKSON CMP, 1988-02 #### [facility] ([id number]) [address] [place] [address] #### 30565-2 #### [facility] ([id number]) [facility] [facility], [address] [place] [address] PT Coag (PPP) [Time] 32.6 s High 9.8-13.2 [facility] Comment on above: Result Comment: NEW REFERENCE RANGE Performed By: #### Chanel ERICKSON CMP, 1988-02 #### [facility] ([id number]) [address] [place] [address] 91067 #### 30832-5 #### [facility] ([id number]) [address] [facility], [address] [place] [address] CBC AND AUTO DIFFon 12-26-19 24 ABSOLUTE BASOPHIL 0.1 X10E9/L Normal 0.0-0.2 [facility] Comment on above: Performed By: #### Chanel ERICKSON CMP, 1988-02 #### [facility] ([id number]) [address] [place] [address] 51704 #### 01781-6 #### [facility] ([id number]) [address] [facility], [address] [place] [address] ABSOLUTE NEUTROPHIL 11.1 X10E9/L High 1.5-6.6 [facility] Comment on above: Performed By: #### Chanel ERICKSON [facility], 1988-02 #### [facility] ([id number]) [address] [place] [address] 41479 #### 72591-7 #### [facility] ([id number]) [address], [address] [place] [address] Basophils/100 WBC (Bld) 0.4 % Normal [facility] Comment on above: Performed By: #### Chanel ERICKSON [facility], 1988-02 #### [facility] ([id number]) [address] [place] [address] 07094 #### 12233-6 #### [facility] ([id number]) [address], [address] [place] [address] Eosinophils (Bld) [#/Vol] 0.8 10*3/uL High 0.0-0.4 [facility] Comment on above: Performed By: #### Chanel ERICKSON [facility], 1988-02 #### [facility] ([id number]) [address] [place] [address] 79240 #### 72474-0 #### [facility] ([id number]) [address], [address] [place] [address] Eosinophils/100 WBC (Bld) 5.4 % Normal [facility] Comment on above: Performed By: #### Chanel ERICKSON [facility], 1988-02 #### [facility] ([id number]) [address] [place] [address] 14690 #### 68765-9 #### [facility] ([id number]) [address], [address] [place] [address] Erythrocyte distribution width (RBC) [Ratio] 13.9 % Normal 11.5-15.0 [facility] Comment on above: Performed By: #### Chanel ERICKSON CMP, 1988-02 #### [facility] ([id number]) [address] [place] [address] 36064 #### 40292-1 #### [facility] ([id number]) [address], [address] [place] [address] Hematocrit (Bld) [Volume fraction] 35.9 % Normal 35-47 [facility] Comment on above: Performed By: #### Chanel ERICKSON CMP, 1988-02 #### [facility] ([id number]) [address] [place] [address] 99189 #### 92030-6 #### [facility] ([id number]) [address], [address] [place] [address] Hemoglobin (Bld) [Mass/Vol] 11.7 g/dL Normal 11.7-15.5 [facility] Comment on above: Performed By: #### Chanel ERICKSON CMP, 1988-02 #### [facility] ([id number]) [address] [place] [address] 67545 #### 95385-2 #### [facility] ([id number]) [address], [address] [place] [address] Lymphocytes (Bld) [#/Vol] 2.6 10*3/uL Normal 1.0-3.5 [facility] Comment on above: Performed By: #### Chanel ERICKSON CMP, 1988-02 #### [facility] ([id number]) [address] [place] [address] 26102 #### 00903-6 #### [facility] ([id number]) [address], [address] [place] [address] Lymphocytes/100 WBC (Bld) 16.6 % Normal [facility] Comment on above: Performed By: #### Chanel ERICKSON, [facility], 1988-02 #### [facility] ([id number]) [address] [place] [address] 60900 #### 13695-7 #### [facility] ([id number]) [address], [address] [place] [address] MCH (RBC) [Entitic mass] 28.2 pg Normal 27-34 [facility] Comment on above: Performed By: #### Chanel ERICKSON, CMP, 1988-02 #### [facility] ([id number]) [address] [place] [address] 93340 #### 22961-2 #### [facility] ([id number]) [address], [address] [place] [address] MCHC (RBC) [Mass/Vol] 32.7 g/dL Normal 32-36 [facility] Comment on above: Performed By: #### Chanel ERICKSON [facility], 1988-02 #### [facility] ([id number]) [address] [place] [address] 78867 #### 89897-5 #### [facility] ([id number]) [address], [address] [place] [address] MCV (RBC) [Entitic vol] 86 fL Normal 80-100 [facility] Comment on above: Performed By: #### Chanel ERICKSON, CMP, 1988-02 #### [facility] ([id number]) [address] [place] [address] 51351 #### 13204-8 #### [facility] ([id number]) [address], [address] [place] [address] Monocytes (Bld) [#/Vol] 0.9 10*3/uL Normal 0-0.9 [facility] Comment on above: Performed By: #### Chanel ERICKSON CMP, 1988-02 #### [facility] ([id number]) [address] [place] [address] 99148 #### 43486-1 #### [facility] ([id number]) [address], [address] [place] [address] Monocytes/100 WBC (Bld) 5.9 % Normal [facility] Comment on above: Performed By: #### Chanel ERICKSON CMP, 1988-02 #### [facility] ([id number]) [address] [place] [address] 80400 #### 49170-8 #### [facility] ([id number]) [address], [address] [place] [address] Neutrophils/100 WBC (Bld) 71.7 % Normal [facility] Comment on above: Performed By: #### Chanel ERICKSON CMP, 1988-02 #### [facility] ([id number]) [address] [place] [address] 69529 #### 01910-4 #### [facility] ([id number]) [address], [address] [place] [address] Platelet mean volume (Bld) [Entitic vol] 8.6 fL Normal 7-12 [facility] Comment on above: Performed By: #### Chanel ERICKSON CMP, 1988-02 #### [facility] ([id number]) [address] [place] [address] 10566 #### 73787-2 #### [facility] ([id number]) [address], [address] [place] [address] Platelets (Bld) [#/Vol] 338 10*3/uL Normal 150-450 [facility] Comment on above: Performed By: #### Chanel ERICKSON CMP, 1988-02 #### [facility] ([id number]) [address] [place] [address] 51940 #### 81869-2 #### [facility] ([id number]) [address] [place] [address], [address] [place] [address] RBC COUNT 4.16 X10E12/L Normal 3.80-5.20 [facility] Comment on above: Performed By: #### Chanel ERICKSON CMP, 1988-02 #### [facility] ([id number]) [address] [place] [address] 76395 #### 08767-8 #### [facility] ([id number]) [address] [place] [address], [address] [place] [address] WBC (Bld) [#/Vol] 15.5 10*3/uL High 4.0-11.[address] [facility] Comment on above: Performed By: #### Chanel ERICKSON CMP, 1988-02 #### [facility] ([id number]) [address] [place] [address] 21087 #### 13780-4 #### [facility] ([id number]) [address] [place] [address], [address] [place] [address] COMPREHENSIVE METABOLIC PANE [place] 12-26-2023 Albumin [Mass/Vol] 3.2 g/dL Normal 3.2-5.3 [facility] Comment on above: Performed By: #### Chanel BCA CMP, 1988-02 #### [facility] ([id number]) [address] [place] [address] 37746 #### 53217-6 #### [facility] ([id number]) [address] [place] [address], [address] [place] [address] ALP [Catalytic activity/Vol] 69 U/L Normal 39-130 [facility] Comment on above: Performed By: #### Chanel BCA CMP, 1988-02 #### [facility] ([id number]) [address] [place] [address] 50531 #### 95076-2 #### [facility] ([id number]) [address] [facility], [address] [place] [address] ALT [Catalytic activity/Vol] 16 U/L Normal 0-31 [facility] Comment on above: Performed By: #### Chanel ERICKSON CMP, 1988-02 #### [facility] ([id number]) [address] [place] [address] 62184 #### 82593-1 #### [facility] ([id number]) [address] [facility], [address] [place] [address] Anion gap [Moles/Vol] 10 mmol/L Normal 5-15 [facility] Comment on above: Performed By: #### Chanel ERICKSON CMP, 1988-02 #### [facility] ([id number]) [address] [place] [address] 78184 #### 43886-8 #### [facility] ([id number]) [address] [facility], [address] [place] [address] AST [Catalytic activity/Vol] 17 U/L Normal 0-41 [facility] Comment on above: Performed By: #### Chanel ERICKSON CMP, 1988-02 #### [facility] ([id number]) [address] [place] [address] 26481 #### 30770-0 #### [facility] ([id number]) [address] [facility], [address] [place] [address] Bilirubin [Mass/Vol] 0.4 mg/dL Normal 0.3-1.2 [facility] Comment on above: Performed By: #### Chanel BCA, CMP, 1988-02 #### [facility] ([id number]) [address] [place] [address] 67126 #### 47068-0 #### [facility] ([id number]) [address] [place] [address] Calcium [Mass/Vol] 8.7 mg/dL Normal 8.5-10.5 [facility] Comment on above: Performed By: #### C SEAN ERICKSON, 1988-02 #### [facility] ([id number]) [address] [place] [address] 88683 #### 79348-8 #### [facility] ([id number]) [address], [address] [place] [address] Chloride [Moles/Vol] 98 mmol/L Normal 98-109 [facility] Comment on above: Performed By: #### C SEAN ERICKSON, 1988-02 #### [facility] ([id number]) [address] [place] [address] 05068 #### 48735-6 #### [facility] ([id number]) [address] [facility], [address] [place] [address] CO2 [Moles/Vol] 31 mmol/L Normal 22-32 [facility] Comment on above: Performed By: #### C SEAN ERICKSON, 1988-02 #### [facility] ([id number]) [address] [place] [address] 26329 #### 62432-0 #### [facility] ([id number]) [address] [place] [address] Creatinine [Mass/Vol] 0.78 mg/dL Normal 0.40-1.00 [facility] Comment on above: Result Comment: METH OD TRACEABLE TO IDMS STANDARD Performed By: #### C SEAN ERICKSON, 1988-02 #### [facility] ([id number]) [address] [place] [address] 38239 #### 55208-2 #### [facility] ([id number]) [address] [place] [address] GFR/1.73 sq M.predicted among non-blacks MDRD (S/P/Bld) [Vol rate/Area] 81 mL/min/{1.73_m2} Normal >59 [facility] Comment on above: Result Comment: Reported eGFR is based on the CKD-EPI 2020 equation that does not use a race coefficient. Performed By: #### Chanel ERICKSON CMP, 1988-02 #### [facility] ([id number]) [address] [place] [address] 27403 #### 55385-9 #### [facility] ([id number]) [address] [place] [address] Glucose [Mass/Vol] 129 mg/dL High 65-99 [facility] Comment on above: Performed By: #### Chanel ERICKSON CMP, 1988-02 #### [facility] ([id number]) [address] [place] [address] 26517 #### 76884-8 #### [facility] ([id number]) [address] [place] [address] Potassium [Moles/Vol] 3.8 mmol/L Normal 3.5-5.0 [facility] Comment on above: Performed By: #### Chanel ERICKSON CMP, 1988-02 #### [facility] ([id number]) [address] [place] [address] 12171 #### 49763-6 #### [facility] ([id number]) [address] [place] [address] Protein [Mass/Vol] 7.3 g/dL Normal 6.0-8.0 [facility] Comment on above: Performed By: #### Chanel ERICKSON CMP, 1988-02 #### [facility] ([id number]) [address] [place] [address] 29948 #### 94343-5 #### [facility] ([id number]) [address], [address] [place] [address] Sodium [Moles/Vol] 139 mmol/L Normal 134-146 [facility] Comment on above: Performed By: #### Chanel ERICKSON CMP, 1988-02 #### [facility] ([id number]) [address] [place] [address] 49628 #### 71975-2 #### [facility] ([id number]) [address] [facility], [address] [place] [address] Urea nitrogen [Mass/Vol] 19 mg/dL Normal 5-27 [facility] Comment on above: Performed By: #### Chanel ERICKSON CMP, 1988-02 #### [facility] ([id number]) [address] [place] [address] 40098 #### 58759-0 #### [facility] ([id number]) [address] [facility], [address] [place] [address] Glucose Glucometer (BldC) [M ass/Vol]on 12-26-2023 Glucose [Mass/Vol] 146 mg/dL High 65-99 [facility] Glucose [Mass/Vol] 182 mg/dL High 65-99 [facility] Glucose [Mass/Vol] 108 mg/dL High 65-99 [facility] MAGNESIUMon 12-26-2023 Magnesium [Mass/Vol] 2.3 mg/dL Normal 1.8-2.6 [facility] Comment on above: Performed By: #### Chanel ERICKSON CMP, 1988-02 #### [facility] ([id number]) [address] [place] [address] 33495 #### 48018-9 #### [facility] ([id number]) [address], [address] [place] [address] MR FOOT RT W WO CONTon 12-25 [...] Alberto MD on 12/26/2023 12:57 PM Normal [facility] PROTIME AND INRon 12-26-2023 INR Coag (PPP) [Relative time] 3.0 {INR} High 0.8-1.1 [facility] Comment on above: Performed By: #### C DRE [facility], 1987- #### [facility] ([id number]) [address] [facility] [place] [address] #### 83378-3 #### [facility] ([id number]) [address] [facility], [address] [place] [address] PT Coag (PPP) [Time] 33.3 s High 9.8-13.2 [facility] Comment on above: Result Comment: NEW REFERENCE RANGE Performed By: #### Chanel ERICKSON CMP, 1988-02 #### [facility] ([id number]) [address] [place] [address] 11945 #### 04436-3 #### [facility] ([id number]) [address] [place] [address] Vancomycin trough [Mass/Vol] on 12-26-2023 VANCOMYCIN TROUGH 11.6 ug/mL Normal 5.0-20.0 [facility] Comment on above: Performed By: #### Chanel ERICKSON [facility], 1988-02 #### [facility] ([id number]) [address] [place] [address] 30013 #### 02964-9 #### [facility] ([id number]) [address] [facility], [address] [place] [address] CBC AND AUTO DIFFon 12-25-19 ABSOLUTE BASOPHIL 0.1 X10E9/L Normal 0.0-0.2 [facility] Comment on above: Performed By: #### Chanel ERICKSON [facility], 1988-02 #### [facility] ([id number]) [address] [place] [address] 16171 #### 09287-9 #### [facility] ([id number]) [address] [facility], [address] [place] [address] ABSOLUTE NEUTROPHIL 9.4 X10E9/L High 1.5-6.6 [facility] Comment on above: Performed By: #### Chanel ERIKCSON CMP, 1988-02 #### [facility] ([id number]) [address] [place] [address] 45119 #### 83607-3 #### [facility] ([id number]) [address] [facility] [place] [address] Basophils/100 WBC (Bld) 0.4 % Normal [facility] Comment on above: Performed By: #### Chanel ERICKSON CMP, 1988-02 #### [facility] ([id number]) [address] [place] [address] 68311 #### 85083-0 #### [facility] ([id number]) [address] [place] [address] Eosinophils (Bld) [#/Vol] 0.7 10*3/uL High 0.0-0.4 [facility] Comment on above: Performed By: #### Chanel ERICKSON CMP, 1988-02 #### [facility] ([id number]) [address] [place] [address] 31319 #### 52916-1 #### [facility] ([id number]) [address] [facility] [address] [place] [address] Eosinophils/100 WBC (Bld) 5.3 % Normal [facility] Comment on above: Performed By: #### Chanel ERICKSON CMP, 1988-02 #### [facility] ([id number]) [address] [place] [address] 67399 #### 05181-5 #### [facility] ([id number]) [address], [facility] [address] [place] [address] Erythrocyte distribution width (RBC) [Ratio] 13.7 % Normal 11.5-15.0 [facility] Comment on above: Performed By: #### Chanel ERICKSON CMP, 1988-02 #### [facility] ([id number]) [address] [place] [address] #### 50206-8 #### [facility] ([id number]) [address], [address] [place] [address] Hematocrit (Bld) [Volume fraction] 37.8 % Normal 35-47 [facility] Comment on above: Performed By: #### Chanel ERICKSON CMP, 1986-02 #### [facility] ([id number]) [address] [place] [address]144 #### 86511-3 #### [facility] ([id number]) [address], [address] [place] [address] Hemoglobin (Bld) [Mass/Vol] 12.6 g/dL Normal 11.7-15.5 [facility] Comment on above: Performed By: #### Chanel ERICKSON CMP, 1988-02 #### [facility] ([id number]) [address] [place] [address] #### 42214-1 #### [facility] ([id number]) [address], [address] [place] [address] Lymphocytes (Bld) [#/Vol] 2.4 10*3/uL Normal 1.0-3.5 [facility] Comment on above: Performed By: #### Chanel ERICKSON CMP, 1988-02 #### [facility] ([id number]) [address] [place] [address] #### 74541-5 #### [facility] ([id number]) [address], [address] [place] [address] Lymphocytes/100 WBC (Bld) 17.5 % Normal [facility] Comment on above: Performed By: #### Chanel ERICKSON CMP, 1988-02 #### [facility] ([id number]) [address] [place] [address] #### 38736-3 #### [facility] ([id number]) [address], [address] [place] [address] MCH (RBC) [Entitic mass] 28.8 pg Normal 27-34 [facility] Comment on above: Performed By: #### Chanel ERICKSON, CMP, 1988-02 #### [facility] ([id number]) [address] [place] [address] #### 85363-8 #### [facility] ([id number]) [address] [place] [address] MCHC (RBC) [Mass/Vol] 33.4 g/dL Normal 32-36 [facility] Comment on above: Performed By: #### Chanel ERICKSON, CMP, 1988-02 #### [facility] ([id number]) [address] [place] [address]85[address] #### 16272-6 #### [facility] ([id number]) [address], [address] [place] [address] MCV (RBC) [Entitic vol] 86 fL Normal 80-100 [facility] Comment on above: Performed By: #### Chanel ERICKSON, CMP, 1988-02 #### [facility] ([id number]) [address] [place] [address] #### 72495-7 #### [facility] ([id number]) [address], [address] [place] [address] Monocytes (Bld) [#/Vol] 1.1 10*3/uL High 0-0.9 [facility] Comment on above: Performed By: #### Chanel ERICKSON, CMP, 1988-02 #### [facility] ([id number]) [address] [place] [address] #### 64450-6 #### [facility] ([id number]) [address] [place] [address] Monocytes/100 WBC (Bld) 8.0 % Normal [facility] Comment on above: Performed By: #### Chanel ERICKSON, CMP, 1988-02 #### [facility] ([id number]) [address] [place] [address] 13520 #### 55691-5 #### [facility] ([id number]) [address], [address] [place] [address] Neutrophils/100 WBC (Bld) 68.8 % Normal [facility] Comment on above: Performed By: #### Chanel ERICKSON CMP, 1988-02 #### [facility] ([id number]) [address] [place] [address] 05921 #### 02222-2 #### [facility] ([id number]) [address] [facility], [address] [place] [address] Platelet mean volume (Bld) [Entitic vol] 8.4 fL Normal 7-12 [facility] Comment on above: Performed By: #### Chanel ERICKSON CMP, 1988-02 #### [facility] ([id number]) [address] [place] [address] 43663 #### 25891-8 #### [facility] ([id number]) [address], [address] [place] [address] Platelets (Bld) [#/Vol] 321 10*3/uL Normal 150-450 [facility] Comment on above: Performed By: #### Chanel ERICKSON CMP, 1988-02 #### [facility] ([id number]) [address] [place] [address] 20059 #### 64126-1 #### [facility] ([id number]) [address] [facility], [address] [place] [address] RBC COUNT 4.38 X10E12/L Normal 3.80-5.20 [facility] Comment on above: Performed By: #### Chanel ERICKSON CMP, 1988-02 #### [facility] ([id number]) [address] [place] [address] 88058 #### 02651-6 #### [facility] ([id number]) [address] [facility], [address] [place] [address] WBC (Bld) [#/Vol] 13.7 10*3/uL High 4.0-11.[address] [facility] Comment on above: Performed By: #### Chanel ERICKSON CMP, 1988-02 #### [facility] ([id number]) [address] [place] [address] 05958 #### 34594-1 #### [facility] ([id number]) [address] [place] [address], [address] [place] [address] COMPREHENSIVE METABOLIC PANE Tyrone 12-25-2023 Albumin [Mass/Vol] 3.3 g/dL Normal 3.2-5.3 [facility] Comment on above: Performed By: #### Chanel BCA CMP, 1988-02 #### [facility] ([id number]) [address] [place] [address] 97546 #### 41445-4 #### [facility] ([id number]) [address] [place] [address], [address] [address] ALP [Catalytic activity/Vol] 66 U/L Normal 39-130 [facility] Comment on above: Performed By: #### Chanel BCA, CMP, 1988-02 #### [facility] ([id number]) [address] [place] [address] 27962 #### 81283-6 #### [facility] ([id number]) [address] [place] [address], [address] [place] [address] ALT [Catalytic activity/Vol] 16 U/L Normal 0-31 [facility] Comment on above: Performed By: #### Chanel BCA, CMP, 1988-02 #### [facility] ([id number]) [address] [place] [address] [place] [address] #### 26307-6 #### [facility] ([id number]) [address], [address] [place] [address] Anion gap [Moles/Vol] 10 mmol/L Normal 5-15 [facility] Comment on above: Performed By: #### Chanel ERICKSON CMP, 1988-02 #### [facility] ([id number]) [address] [place] [address] 03638 #### 22489-2 #### [facility] ([id number]) [address] [facility], [address] [place] [address] AST [Catalytic activity/Vol] 17 U/L Normal 0-41 [facility] Comment on above: Performed By: #### Chanel ERICKSON CMP, 1988-02 #### [facility] ([id number]) [address] [place] [address] 75562 #### 10571-7 #### [facility] ([id number]) [address], [address] [place] [address] Bilirubin [Mass/Vol] 0.5 mg/dL Normal 0.3-1.2 [facility] Comment on above: Performed By: #### Chanel ERICKSON CMP, 1988-02 #### [facility] ([id number]) [address] [place] [address] 05965 #### 07693-3 #### [facility] ([id number]) [address], [address] [place] [address] Calcium [Mass/Vol] 8.9 mg/dL Normal 8.5-10.5 [facility] Comment on above: Performed By: #### Chanel BCA, CMP, 1988-02 #### [facility] ([id number]) [address] [place] [address] 27740 #### 56491-3 #### [facility] ([id number]) [address], [address] [place] [address] Chloride [Moles/Vol] 98 mmol/L Normal 98-109 [facility] Comment on above: Performed By: #### C SEAN ERICKSON, 1988-02 #### [facility] ([id number]) [address] [place] [address] 32722 #### 49985-0 #### [facility] ([id number]) [address] [facility], [address] [place] [address] CO2 [Moles/Vol] 31 mmol/L Normal 22-32 [facility] Comment on above: Performed By: #### Chanel ERICKSON [facility], 1988-02 #### [facility] ([id number]) [address] [place] [address] 19153 #### 16519-0 #### [facility] ([id number]) [address] [facility], [address] [place] [address] Creatinine [Mass/Vol] 0.78 mg/dL Normal 0.40-1.00 [facility] Comment on above: Result Comment: METH OD TRACEABLE TO IDMS STANDARD Performed By: #### C DRE [facility], 1988-02 #### [facility] ([id number]) [address] [place] [address] 39132 #### 66109-6 #### [facility] ([id number]) [address] [facility], [address] [place] [address] GFR/1.73 sq M.predicted among non-blacks MDRD (S/P/Bld) [Vol rate/Area] 81 mL/min/{1.73_m2} Normal >59 [facility] Comment on above: Result Comment: Reported eGFR is based on the CKD-EPI 2020 equation that does not use a race coefficient. Performed By: #### Chanel ERICKSON CMP, 1988-02 #### [facility] ([id number]) [address] [place] [address] 42822 #### 12197-8 #### [facility] ([id number]) [address] [facility], [address] [place] [address] Glucose [Mass/Vol] 125 mg/dL High 65-99 [facility] Comment on above: Performed By: #### Chanel ERICKSON CMP, 1988-02 #### [facility] ([id number]) [address] [place] [address] 44031 #### 40081-3 #### [facility] ([id number]) [address] [facility], [address] [place] [address] Potassium [Moles/Vol] 3.5 mmol/L Normal 3.5-5.0 [facility] Comment on above: Performed By: #### Chanel ERICKSON CMP, 1988-02 #### [facility] ([id number]) [address] [place] [address] 82233 #### 55610-1 #### [facility] ([id number]) [address] [facility], [address] [place] [address] Protein [Mass/Vol] 7.7 g/dL Normal 6.0-8.0 [facility] Comment on above: Performed By: #### Chanel ERICKSON CMP, 1988-02 #### [facility] ([id number]) [address] [place] [address] 24115 #### 02012-2 #### [facility] ([id number]) [address], [address] [place] [address] Sodium [Moles/Vol] 139 mmol/L Normal 134-146 [facility] Comment on above: Performed By: #### Chanel ERICKSON CMP, 1988-02 #### [facility] ([id number]) [address] [place] [address] 51733 #### 22249-4 #### [facility] ([id number]) [address], [address] [place] [address] Urea nitrogen [Mass/Vol] 19 mg/dL Normal 5-27 [facility] Comment on above: Performed By: #### Chanel ERICKSON [facility], 1988-02 #### [facility] ([id number]) [address] [place] [address] 82712 #### 73838-3 #### [facility] ([id number]) [address] [facility], [address] [place] [address] CRP [Mass/Vol]on 12-25-2023 C REACTIVE PROTEIN 8.6 mg/dL High 0.000-0.[address] [facility] Comment on above: Performed By: #### Chanel ERICKSON [facility], 1988-02 #### [facility] ([id number]) [address] [place] [address] 68663 #### 23184-9 #### [facility] ([id number]) [address] [facility], [address] [place] [address] ESR Photometric method (Bld) [Velocity]on 12-25-2023 ESR, ERYTHROCYTE SEDIMENTATION RATE 85 mm/h High 0-30 [facility] Comment on above: Performed By: #### Chanel ERICKSON [facility], 1988-02 #### [facility] ([id number]) [address] [place] [address] 09544 #### 33167-6 #### [facility] ([id number]) [address] [facility], [address] [place] [address] Glucose Glucometer (BldC) [M ass/Vol]on 12-25-2023 Glucose [Mass/Vol] 171 mg/dL High 65-99 [facility] Glucose [Mass/Vol] 125 mg/dL High 65-99 [facility] Glucose [Mass/Vol] 154 mg/dL High 65-99 [facility] MAGNESIUMon 12-25-2023 Magnesium [Mass/Vol] 2.4 mg/dL Normal 1.8-2.6 [facility] Comment on above: Performed By: #### Chanel ERICKSON [facility], 1988-02 #### [facility] ([id number]) [address] [place] [address] 93661 #### 31124-0 #### [facility] ([id number]) [address] [facility], [address] [place] [address] POTASSIUMon 12-25-2023 Potassium [Moles/Vol] 4.2 mmol/L Normal 3.5-5.0 [facility] Comment on above: Performed By: #### Chanel ERICKSON [facility], 1988-02 #### [facility] ([id number]) [address] [place] [address] 17837 #### 97948-5 #### [facility] ([id number]) [address] [facility], [address] [place] [address] PROTIME AND INRon 12-25-2023 INR Coag (PPP) [Relative time] 2.6 {INR} High 0.8-1.1 [facility] Comment on above: Performed By: #### Chanel ERICKSON [facility], 1988-02 #### [facility] ([id number]) [address] [place] [address] 03997 #### 99625-0 #### [facility] ([id number]) [address] [facility], [address] [place] [address] PT Coag (PPP) [Time] 29.7 s High 9.8-13.2 [facility] Comment on above: Result Comment: NEW REFERENCE RANGE Performed By: #### Chanel ERICKSON CMP, 1988-02 #### [facility] ([id number]) [address] [place] [address] 24657 #### 57331-4 #### [facility] ([id number]) [address] [facility], [address] [place] [address] URIC ACIDon 12-25-2023 Urate [Mass/Vol] 8.9 mg/dL High 2.6-7.2 [facility] Comment on above: Performed By: #### C BCA, CMP, 1987- #### [facility] ([id number]) [address] [place] [address], [place] [address] #### 43110-4 #### [facility] ([id number]) [address] [facility], [address] [place] [address] XR CHEST 1 VWon 12-25-2023 XR CHEST [...] Wood MD on 12/25/2023 11:21 AM Normal [facility] XR FOOT RT 2 VWSon XR [...] Araujo MD on 12/25/2023 2:59 PM Normal [facility] CBC AND AUTO DIFFon 12-24-19 24 ABSOLUTE BASOPHIL 0.1 X10E9/L Normal 0.0-0.2 [facility] Comment on above: Performed By: #### Chanel ERICKSON CMP, 1988-02 #### [facility] ([id number]) [address] [place] [address] 08756 #### 02419-0 #### [facility] ([id number]) [address], [address] [place] [address] ABSOLUTE NEUTROPHIL 10.2 X10E9/L High 1.5-6.6 [facility] Comment on above: Performed By: #### Chanel ERICKSON [facility], 1988-02 #### [facility] ([id number]) [address] [place] [address] 68909 #### 62016-3 #### [facility] ([id number]) [address] [facility], [address] [place] [address] Basophils/100 WBC (Bld) 0.5 % Normal [facility] Comment on above: Performed By: #### Chanel ERICKSON [facility], 1988-02 #### [facility] ([id number]) [address] [place] [address] 13768 #### 82813-5 #### [facility] ([id number]) [address], [address] [place] [address] Eosinophils (Bld) [#/Vol] 0.9 10*3/uL High 0.0-0.4 [facility] Comment on above: Performed By: #### Chanel ERICKSON CMP, 1988-02 #### [facility] ([id number]) [address] [place] [address] 45840 #### 16782-2 #### [facility] ([id number]) [address], [address] [place] [address] Eosinophils/100 WBC (Bld) 6.2 % Normal [facility] Comment on above: Performed By: #### Chanel ERICKSON CMP, 1988-02 #### [facility] ([id number]) [address] [place] [address] 36607 #### 23347-5 #### [facility] ([id number]) [address], [address] [place] [address] Erythrocyte distribution width (RBC) [Ratio] 14.1 % Normal 11.5-15.0 [facility] Comment on above: Performed By: #### Chanel ERICKSON CMP, 1988-02 #### [facility] ([id number]) [address] [place] [address] 64029 #### 03147-6 #### [facility] ([id number]) [address], [address] [place] [address] Hematocrit (Bld) [Volume fraction] 37.3 % Normal 35-47 [facility] Comment on above: Performed By: #### Chanel ERICKSON CMP, 1988-02 #### [facility] ([id number]) [address] [place] [address] 05070 #### 33294-8 #### [facility] ([id number]) [address], [address] [place] [address] Hemoglobin (Bld) [Mass/Vol] 12.4 g/dL Normal 11.7-15.5 [facility] Comment on above: Performed By: #### Chanel ERICKSON CMP, 1988-02 #### [facility] ([id number]) [address] [place] [address] 62831 #### 20375-3 #### [facility] ([id number]) [address], [address] [place] [address] Lymphocytes (Bld) [#/Vol] 2.2 10*3/uL Normal 1.0-3.5 [facility] Comment on above: Performed By: #### Chanel ERICKSON CMP, 1988-02 #### [facility] ([id number]) [address] [place] [address] 26608 #### 68208-4 #### [facility] ([id number]) [address] [place] [address] Lymphocytes/100 WBC (Bld) 15.4 % Normal [facility] Comment on above: Performed By: #### Chanel ERICKSON CMP, 1988-02 #### [facility] ([id number]) [address] [place] [address] 33431 #### 72365-8 #### [facility] ([id number]) [address] [place] [address] MCH (RBC) [Entitic mass] 29.0 pg Normal 27-34 [facility] Comment on above: Performed By: #### Chanel ERICKSON CMP, 1988-02 #### [facility] ([id number]) [address] [place] [address] 13126 #### 49843-2 #### [facility] ([id number]) [address], [address] [place] [address] MCHC (RBC) [Mass/Vol] 33.3 g/dL Normal 32-36 [facility] Comment on above: Performed By: #### Chanel ERICKSON CMP, 1988-02 #### [facility] ([id number]) [address] [place] [address] 75416 #### 54240-7 #### [facility] ([id number]) [address] [place] [address] MCV (RBC) [Entitic vol] 87 fL Normal 80-100 [facility] Comment on above: Performed By: #### Chanel ERICKSON CMP, 1988-02 #### [facility] ([id number]) [address] [place] [address] 23835 #### 97004-5 #### [facility] ([id number]) [address] [place] [address] Monocytes (Bld) [#/Vol] 0.7 10*3/uL Normal 0-0.9 [facility] Comment on above: Performed By: #### Chanel ERICKSON CMP, 1988-02 #### [facility] ([id number]) [address] [place] [address] 85573 #### 11337-9 #### [facility] ([id number]) [address] [place] [address] Monocytes/100 WBC (Bld) 5.3 % Normal [facility] Comment on above: Performed By: #### Chanel ERICKSON CMP, 1988-02 #### [facility] ([id number]) [address] [place] [address] 00952 #### 25213-3 #### [facility] ([id number]) [address] [place] [address] Neutrophils/100 WBC (Bld) 72.6 % Normal [facility] Comment on above: Performed By: #### Chanel ERICKSON CMP, 1988-02 #### [facility] ([id number]) [address] [place] [address] 58266 #### 95993-9 #### [facility] ([id number]) [address] [place] [address] Platelet mean volume (Bld) [Entitic vol] 8.6 fL Normal 7-12 [facility] Comment on above: Performed By: #### Chanel ERICKSON CMP, 1988-02 #### [facility] ([id number]) [address] [place] [address] 40782 #### 97351-3 #### [facility] ([id number]) [address] [facility], [address] [place] [address] Platelets (Bld) [#/Vol] 339 10*3/uL Normal 150-450 [facility] Comment on above: Performed By: #### Chanel ERICKSON CMP, 1988-02 #### [facility] ([id number]) [address] [place] [address] 79089 #### 32081-7 #### [facility] ([id number]) [address] [place] [address], [address] [place] [address] 17092 RBC COUNT 4.29 X10E12/L Normal 3.80-5.20 [facility] Comment on above: Performed By: #### Chanel ERICKSON CMP, 1988-02 #### [facility] ([id number]) [address] [place] [address] 27084 #### 69345-9 #### [facility] ([id number]) [address] [place] [address], [address] [place] [address] 38258 WBC (Bld) [#/Vol] 14.1 10*3/uL High 4.0-11.[address] [facility] Comment on above: Performed By: #### Chanel BCA, CMP, 1988-02 #### [facility] ([id number]) [address] [place] [address] 52022 #### 69357-3 #### [facility] ([id number]) [address] [place] [address], [address] [place] [address] COMPREHENSIVE METABOLIC PANE Tyrone 12-24-2023 Albumin [Mass/Vol] 3.4 g/dL Normal 3.2-5.3 [facility] Comment on above: Performed By: #### Chanel BCA, CMP, 1988-02 #### [facility] ([id number]) [address] [place] [address] 16584 #### 97978-4 #### [facility] ([id number]) [address] [facility], [address] [place] [address] ALP [Catalytic activity/Vol] 67 U/L Normal 39-130 [facility] Comment on above: Performed By: #### Chanel ERICKSON CMP, 1988-02 #### [facility] ([id number]) [address] [place] [address] 05010 #### 01635-9 #### [facility] ([id number]) [address] [facility], [address] [place] [address] ALT [Catalytic activity/Vol] 13 U/L Normal 0-31 [facility] Comment on above: Performed By: #### Chanel ERICKSON CMP, 1988-02 #### [facility] ([id number]) [address] [place] [address] 27212 #### 50686-8 #### [facility] ([id number]) [address] [facility], [address] [place] [address] Anion gap [Moles/Vol] 11 mmol/L Normal 5-15 [facility] Comment on above: Performed By: #### Chanel ERICKSON, CMP, 1988-02 #### [facility] ([id number]) [address] [place] [address] 40396 #### 06172-6 #### [facility] ([id number]) [address] [facility], [address] [place] [address] AST [Catalytic activity/Vol] 16 U/L Normal 0-41 [facility] Comment on above: Performed By: #### Chanel BCA, CMP, 1988-02 #### [facility] ([id number]) [address] [place] [address] 73627 #### 41718-1 #### [facility] ([id number]) [address] [place] [address] Bilirubin [Mass/Vol] 0.4 mg/dL Normal 0.3-1.2 [facility] Comment on above: Performed By: #### Chanel ERICKSON CMP, 1988-02 #### [facility] ([id number]) [address] [place] [address] 45458 #### 59983-7 #### [facility] ([id number]) [address] [place] [address] Calcium [Mass/Vol] 8.9 mg/dL Normal 8.5-10.5 [facility] Comment on above: Performed By: #### Chanel ERICKSON CMP, 1988-02 #### [facility] ([id number]) [address] [place] [address] 96115 #### 40553-4 #### [facility] ([id number]) [address] [place] [address] Chloride [Moles/Vol] 99 mmol/L Normal 98-109 [facility] Comment on above: Performed By: #### Chanel ERICKSON CMP, 1988-02 #### [facility] ([id number]) [address] [place] [address] 87517 #### 89454-8 #### [facility] ([id number]) [address] [place] [address] CO2 [Moles/Vol] 30 mmol/L Normal 22-32 [facility] Comment on above: Performed By: #### Chanel ERICKSON CMP, 1986-02 #### [facility] ([id number]) [address] [place] [address] #### [id number] #### [facility] ([id number]) [address], [address] [place] [address] Creatinine [Mass/Vol] 0.83 mg/dL Normal 0.40-1.00 [facility] Comment on above: Result Comment: METH OD TRACEABLE TO IDMS STANDARD Performed By: #### C SEAN ERICKSON, 1986-02 #### [facility] ([id number]) [address] [place] [address] #### [id number] #### [facility] ([id number]) [address], [address] [place] [address] GFR/1.73 sq M.predicted among non-blacks MDRD (S/P/Bld) [Vol rate/Area] 75 mL/min/{1.73_m2} Normal >59 [facility] Comment on above: Result Comment: Reported eGFR is based on the CKD-EPI 2020 equation that does not use a race coefficient. Performed By: #### Chanel ERICKSON CMP, 1986-02 #### [facility] ([id number]) [address] [place] [address] #### [id number] #### [facility] ([id number]) [address] [place] [address] Glucose [Mass/Vol] 137 mg/dL High 65-99 [facility] Comment on above: Performed By: #### Chanel ERICKSON CMP, 1986-02 #### [facility] ([id number]) [address] [place] [address] #### [id number] #### [facility] ([id number]) [address], [address] [place] [address] Potassium [Moles/Vol] 3.8 mmol/L Normal 3.5-5.0 [facility] Comment on above: Performed By: #### Chanel ERICKSON CMP, 1986-02 #### [facility] ([id number]) [address] [place] [address] #### [id number] #### [facility] ([id number]) [address], [address] [place] [address] Protein [Mass/Vol] 7.9 g/dL Normal 6.0-8.0 [facility] Comment on above: Performed By: #### Chanel ERICKSON CMP, 1986-02 #### [facility] ([id number]) [address] [place] [address] #### [id number] #### [facility] ([id number]) [address] [place] [address] Sodium [Moles/Vol] 140 mmol/L Normal 134-146 [facility] Comment on above: Performed By: #### Chanel ERICKSON CMP, 1986-02 #### [facility] ([id number]) [address] [place] [address] #### [id number] #### [facility] ([id number]) [address] [facility] [place] [address] Urea nitrogen [Mass/Vol] 18 mg/dL Normal 5-27 [facility] Comment on above: Performed By: #### Chanel ERICKSON CMP, 1986-02 #### [facility] ([id number]) [address] [place] [address] #### [id number] #### [facility] ([id number]) [address] [place] [address] Glucose Glucometer (BldC) [M ass/Vol]on 12-24-2023 Glucose [Mass/Vol] 136 mg/dL High 65-99 [facility] [facility] [Mass/Vol] 123 mg/dL High 65-99 [facility] Glucose [Mass/Vol] 152 mg/dL High 65-99 [facility] MAGNESIUMon 12-24-2023 Magnesium [Mass/Vol] 2.2 mg/dL Normal 1.8-2.6 [facility] Comment on above: Performed By: #### Chanel ERICKSON CMP, 1986-02 #### [facility] ([id number]) [address] [place] [address] 11919 #### 69699-5 #### [facility] ([id number]) [address], [address] [place] [address] POTASSIUMon 12-24-2023 Potassium [Moles/Vol] 4.0 mmol/L Normal 3.5-5.0 [facility] Comment on above: Performed By: #### Chanel ERICKSON [facility], 1988-02 #### [facility] ([id number]) [address] [place] [address] 82981 #### 78241-2 #### [facility] ([id number]) [address], [address] [place] [address] PROTIME AND INRon 12-24-2023 INR Coag (PPP) [Relative time] 2.8 {INR} High 0.8-1.1 [facility] Comment on above: Performed By: #### Chanel ERICKSON CMP, 1986-02 #### [facility] ([id number]) [address] [place] [address] 70679 #### 21479-5 #### [facility] ([id number]) [address], [address] [place] [address] PT Coag (PPP) [Time] 30.9 s High 9.8-13.2 [facility] Comment on above: Result Comment: NEW REFERENCE RANGE Performed By: #### Chanel ERICKSON CMP, 1986-02 #### [facility] ([id number]) [address] [place] [address] 28959 #### 76120-0 #### [facility] ([id number]) [address] [facility] [address], [address] [place] [address] Vancomycin trough [Mass/Vol] on 12-24-2023 VANCOMYCIN TROUGH 11.4 ug/mL Normal 5.0-20.0 [facility] Comment on above: Performed By: #### C DRE CMP, 1988-02 #### [facility] ([id number]) [address] [place] [address] 66871 #### [id number] #### [facility] ([id number]) [address], [address] [place] [address] CBC AND AUTO DIFFon 12-23-19 24 ABSOLUTE BASOPHIL 0.1 X10E9/L Normal 0.0-0.2 [facility] Comment on above: Performed By: #### C DRE, PINR, CMP, ####[facility] ([id number])[address] [place] [address] 32333 ABSOLUTE NEUTROPHIL 10.1 X10E9/L High 1.5-6.6 [facility] Comment on above: Performed By: #### C BCA, PINR, CMP, ####[facility] ([id number])[address] [place] [address] 25747 Basophils/100 WBC (Bld) 1.0 % Normal [facility] Comment on above: Performed By: #### C BCA, PINR, CMP, ####[facility] ([id number])[address] [place] [address] 45474 Eosinophils (Bld) [#/Vol] 0.8 10*3/uL High 0.0-0.4 [facility] Comment on above: Performed By: #### C BCA, PINR, CMP, ####[facility] ([id number])[address] [place] [address] 34645 Eosinophils/100 WBC (Bld) 5.8 % Normal [facility] Comment on above: Performed By: #### C DRE, PINR, CMP, ####[facility] ([id number])[address] [place] [address] 15924 Erythrocyte distribution width (RBC) [Ratio] 13.8 % Normal 11.5-15.0 [facility] Comment on above: Performed By: #### C DRE, PINR, CMP, ####[facility] ([id number])[address] [place] [address] 86125 Hematocrit (Bld) [Volume fraction] 36.1 % Normal 35-47 [facility] Comment on above: Performed By: #### Chanel ERICKSON, PINR, CMP, ####[facility] ([id number])[address] [place] [address] 65450 Hemoglobin (Bld) [Mass/Vol] 12.1 g/dL Normal 11.7-15.5 [facility] Comment on above: Performed By: #### Chanel ERICKSON, PINR, CMP, ####[facility] ([id number])[address] [place] [address] 30586 Lymphocytes (Bld) [#/Vol] 2.4 10*3/uL Normal 1.0-3.5 [facility] Comment on above: Performed By: #### C BCA, PINR, CMP, ####[facility] ([id number])[address] [place] [address] 75250 Lymphocytes/100 WBC (Bld) 16.6 % Normal [facility] Comment on above: Performed By: #### C BCA, PINR, CMP, ####[facility] ([id number])[address] [place] [address] 27975 MCH (RBC) [Entitic mass] 29.0 pg Normal 27-34 [facility] Comment on above: Performed By: #### C DRE PINR, CMP, ####[facility] ([id number])[address] [place] [address] 47965 MCHC (RBC) [Mass/Vol] 33.6 g/dL Normal 32-36 [facility] Comment on above: Performed By: #### Chanel ERICKSON PINR, CMP, ####[facility] ([id number])[address] [place] [address] 74891 MCV (RBC) [Entitic vol] 86 fL Normal 80-100 [facility] Comment on above: Performed By: #### Chanel ERICKSON PINR, CMP, ####[facility] ([id number])[address] [place] [address] 84565 Monocytes (Bld) [#/Vol] 1.1 10*3/uL High 0-0.9 [facility] Comment on above: Performed By: #### Chanel ERICKSON PINR, CMP, ####[facility] ([id number])[address] [place] [address] 74677 Monocytes/100 WBC (Bld) 7.3 % Normal [facility] Comment on above: Performed By: #### Chanel ERICKSON PINR, CMP, ####[facility] ([id number])[address] [place] [address] 18049 Neutrophils/100 WBC (Bld) 69.3 % Normal [facility] Comment on above: Performed By: #### Chanel ERICKSON PINR, CMP, ####[facility] ([id number])[address] [place] [address] 56739 Platelet mean volume (Bld) [Entitic vol] 8.5 fL Normal 7-12 [facility] Comment on above: Performed By: #### C BCA, PINR, CMP, [phone] ####[facility] ([id number])[address] [place] [address] 77111 Platelets (Bld) [#/Vol] 286 10*3/uL Normal 150-450 [facility] Comment on above: Performed By: #### C BCA, PINR, CMP, ####[facility] ([id number])[address] [place] [address] 43927 RBC COUNT 4.19 X10E12/L Normal 3.80-5.20 [facility] Comment on above: Performed By: #### C BCA, PINR, CMP, 62942-3 ####[facility] ([id number])[address] [place] [address] 22231 WBC (Bld) [#/Vol] 14.6 10*3/uL High 4.0-11.[address] [facility] Comment on above: Performed By: #### C BCA, PINR, CMP, ####[facility] ([id number])[address] [place] [address] 08671 COMPREHENSIVE METABOLIC PANE [place] 12-23-2023 Albumin [Mass/Vol] 3.1 g/dL Low 3.2-5.3 [facility] Comment on above: Performed By: #### Chanel ERICKSON CMP, 1986-02 #### [facility] ([id number]) [address] [place] [address] 74001 #### 67953-2 #### [facility] ([id number]) [address] [place] [address], [address] [place] [address] ALP [Catalytic activity/Vol] 60 U/L Normal 39-130 [facility] Comment on above: Performed By: #### Chanel ERICKSON CMP, 1986-02 #### [facility] ([id number]) [address] [place] [address] 12769 #### 71524-6 #### [facility] ([id number]) [address], [address] [place] [address] ALT [Catalytic activity/Vol] 12 U/L Normal 0-31 [facility] Comment on above: Performed By: #### Chanel ERICKSON CMP, 1986-02 #### [facility] ([id number]) [address] [place] [address] 06272 #### 04249-4 #### [facility] ([id number]) [address], [address] [place] [address] Anion gap [Moles/Vol] 9 mmol/L Normal 5-15 [facility] Comment on above: Performed By: #### Chanel ERICKSON CMP, 1986-02 #### [facility] ([id number]) [address] [place] [address] 62040 #### 57826-3 #### [facility] ([id number]) [address], [address] [place] [address] AST [Catalytic activity/Vol] 14 U/L Normal 0-41 [facility] Comment on above: Performed By: #### Chanel ERICKSON CMP, 1988-02 #### [facility] ([id number]) [address] [place] [address] 09957 #### 47687-7 #### [facility] ([id number]) [address], [address] [place] [address] Bilirubin [Mass/Vol] 0.6 mg/dL Normal 0.3-1.2 [facility] Comment on above: Performed By: #### Chanel ERICKSON CMP, 1986-02 #### [facility] ([id number]) [address] [place] [address] 20842 #### 26074-4 #### [facility] ([id number]) [address], [address] [place] [address] Calcium [Mass/Vol] 8.5 mg/dL Normal 8.5-10.5 [facility] Comment on above: Performed By: #### C SEAN ERICKSON, 1986-02 #### [facility] ([id number]) [address] [place] [address] 72590 #### 55159-7 #### [facility] ([id number]) [address], [address] [place] [address] Chloride [Moles/Vol] 99 mmol/L Normal 98-109 [facility] Comment on above: Performed By: #### C SEAN ERICKSON, 1986-02 #### [facility] ([id number]) [address] [place] [address] 72900 #### 90528-2 #### [facility] ([id number]) [address], [address] [place] [address] CO2 [Moles/Vol] 28 mmol/L Normal 22-32 [facility] Comment on above: Performed By: #### C SEAN ERICKSON, 1986-02 #### [facility] ([id number]) [address] [place] [address] 52624 #### 29567-2 #### [facility] ([id number]) [address], [address] [place] [address] Creatinine [Mass/Vol] 0.75 mg/dL Normal 0.40-1.00 [facility] Comment on above: Result Comment: METH OD TRACEABLE TO IDMS STANDARD Performed By: #### C DRE CMP, 1988-02 #### [facility] ([id number]) [address] [place] [address] 67943 #### 07740-2 #### [facility] ([id number]) [address], [address] [place] [address] GFR/1.73 sq M.predicted among non-blacks MDRD (S/P/Bld) [Vol rate/Area] 85 mL/min/{1.73_m2} Normal >59 [facility] Comment on above: Result Comment: Reported eGFR is based on the CKD-EPI 2020 equation that does not use a race coefficient. Performed By: #### Chanel ERICKSON CMP, 1988-02 #### [facility] ([id number]) [address] [place] [address] 96547 #### 83953-7 #### [facility] ([id number]) [address] [facility], [address] [place] [address] Glucose [Mass/Vol] 122 mg/dL High 65-99 [facility] Comment on above: Performed By: #### Chanel ERICKSON CMP, 1986-02 #### [facility] ([id number]) [address] [place] [address] 76345 #### 69233-5 #### [facility] ([id number]) [address], [address] [place] [address] Potassium [Moles/Vol] 3.5 mmol/L Normal 3.5-5.0 [facility] Comment on above: Performed By: #### Chanel ERICKSON CMP, 1986-02 #### [facility] ([id number]) [address] [place] [address] 04529 #### 97267-6 #### [facility] ([id number]) [address], [address] [place] [address] Protein [Mass/Vol] 7.3 g/dL Normal 6.0-8.0 [facility] Comment on above: Performed By: #### Chanel ERICKSON CMP, 1986-02 #### [facility] ([id number]) [address] [place] [address] 03174 #### 83953-6 #### [facility] ([id number]) [address], [address] [place] [address] Sodium [Moles/Vol] 136 mmol/L Normal 134-146 [facility] Comment on above: Performed By: #### Chanel ERICKSON [facility], 1988-02 #### [facility] ([id number]) [address] [place] [address] 00687 #### 67963-0 #### [facility] ([id number]) [address], [address] [place] [address] Urea nitrogen [Mass/Vol] 15 mg/dL Normal 5-27 [facility] Comment on above: Performed By: #### Chanel ERICKSON [facility], 1988-02 #### [facility] ([id number]) [address] [place] [address] 37179 #### 61735-0 #### [facility] ([id number]) [address], [address] [place] [address] Glucose Glucometer (BldC) [M ass/Vol]on 12-23-2023 Glucose [Mass/Vol] 158 mg/dL High 65-99 [facility] Glucose [Mass/Vol] 141 mg/dL High 65-99 [facility] HGB A1C (GLYCO-HGB)on 2023 Glucose [Mass/Vol] 140 mg/dL Normal [facility] Comment on above: Performed By: #### Chanel ERICKSON CMP, 1986-02 #### [facility] ([id number]) [address] [place] [address] 87129 #### 97730-4 #### [facility] ([id number]) [address], [address] [place] [address] HbA1c (Bld) [Mass fraction] 6.5 % High 4.4-5.6 [facility] Comment on above: Result Comment: NOTE ADA Guidelines Result HgbA1c Normal : less than 5.7 % Prediabetes : 5.7 % to 6.4 % Diabetes : > 6.4 % Use with caution in patients with abnormal hemoglobin variants as the half-life of red blood cells and in vivo glycation rates are affected. Performed By: #### C DRE [facility], 1988-02 #### [facility] ([id number]) [address] [place] [address] 11367 #### 32384-5 #### [facility] ([id number]) [address] [place] [address], [address] [place] [address] MAGNESIUMon 12-23-2023 Magnesium [Mass/Vol] 2.0 mg/dL Normal 1.8-2.6 [facility] Comment on above: Performed By: #### Chanel ERICKSON [facility], 1988-02 #### [facility] ([id number]) [address] [place] [address] 24736 #### 76991-8 #### [facility] ([id number]) [address] [place] [address], [address] [place] [address] POTASSIUMon 12-23-2023 Potassium [Moles/Vol] 4.4 mmol/L Normal 3.5-5.0 [facility] Comment on above: Performed By: #### Chanel ERICKSON [facility], 1988-02 #### [facility] ([id number]) [address] [place] [address] 31807 #### 35024-3 #### [facility] ([id number]) [address] [place] [address], [address] [place] [address] PROTIME AND INRon 12-23-2023 INR Coag (PPP) [Relative time] 2.7 {INR} High 0.8-1.1 [facility] Comment on above: Performed By: #### C BCA, PINR, CMP, ####[facility] ([id number])[address] [place] [address] 64283 PT Coag (PPP) [Time] 29.9 s High 9.8-13.2 [facility] Comment on above: Result Comment: NEW REFERENCE RANGE Performed By: #### C BCA, PINR, CMP, ####[facility] ([id number])[address] [place] [address] 29841 CBC AND AUTO DIFFon 12-22-19 24 ABSOLUTE BASOPHIL 0.2 X10E9/L Normal 0.0-0.2 [facility] Comment on above: Performed By: #### P INR, CMP, , CBCA ####[facility] ([id number])[address] [place] [address] 30332 ABSOLUTE NEUTROPHIL 10.5 X10E9/L High 1.5-6.6 [facility] Comment on above: Performed By: #### P INR, CMP, , CBCA ####[facility] ([id number])[address] [place] [address] 80510 Basophils/100 WBC (Bld) 1.0 % Normal [facility] Comment on above: Performed By: #### P INR, CMP, , CBCA ####[facility] ([id number])[address] [place] [address] 54626 Eosinophils (Bld) [#/Vol] 1.1 10*3/uL High 0.0-0.4 [facility] Comment on above: Performed By: #### P INR, CMP, , CBCA ####[facility] ([id number])[address] [place] [address] 04202 Eosinophils/100 WBC (Bld) 6.9 % Normal [facility] Comment on above: Performed By: #### P INR, CMP, , CBCA ####[facility] ([id number])[address] [place] [address] 22602 Erythrocyte distribution width (RBC) [Ratio] 13.7 % Normal 11.5-15.0 [facility] Comment on above: Performed By: #### P INR, CMP, , CBCA ####[facility] ([id number])[address] [place] [address] 00943 Hematocrit (Bld) [Volume fraction] 34.0 % Low 35-47 [facility] Comment on above: Performed By: #### P INR, CMP, , CBCA ####[facility] ([id number])[address] [place] [address] 05957 Hemoglobin (Bld) [Mass/Vol] 11.4 g/dL Low 11.7-15.5 [facility] Comment on above: Performed By: #### P INR, CMP, , CBCA ####[facility] ([id number])[address] [place] [address] 84662 Lymphocytes (Bld) [#/Vol] 3.5 10*3/uL Normal 1.0-3.5 [facility] Comment on above: Performed By: #### P INR, CMP, , CBCA ####[facility] ([id number])[address] [place] [address] 59201 Lymphocytes/100 WBC (Bld) 21.4 % Normal [facility] Comment on above: Performed By: #### P INR, CMP, , CBCA ####[facility] ([id number])[address] [place] [address] 92865 MCH (RBC) [Entitic mass] 29.1 pg Normal 27-34 [facility] Comment on above: Performed By: #### P INR, CMP, , CBCA ####[facility] ([id number])[address] [place] [address] 93271 MCHC (RBC) [Mass/Vol] 33.6 g/dL Normal 32-36 [facility] Comment on above: Performed By: #### P INR, CMP, , CBCA ####[facility] ([id number])[address] [place] [address] 97870 MCV (RBC) [Entitic vol] 87 fL Normal 80-100 [facility] Comment on above: Performed By: #### P INR, CMP, , CBCA ####[facility] ([id number])[address] [place] [address] 75111 Monocytes (Bld) [#/Vol] 0.9 10*3/uL Normal 0-0.9 [facility] Comment on above: Performed By: #### P INR, CMP, , CBCA ####[facility] ([id number])[address] [place] [address] 24304 Monocytes/100 WBC (Bld) 5.8 % Normal [facility] Comment on above: Performed By: #### P INR, CMP, , CBCA ####[facility] ([id number])[address] [place] [address] 97951 Neutrophils/100 WBC (Bld) 64.9 % Normal [facility] Comment on above: Performed By: #### P INR, CMP, , CBCA ####[facility] ([id number])[address] [place] [address] 40632 Platelet mean volume (Bld) [Entitic vol] 8.8 fL Normal 7-12 [facility] Comment on above: Performed By: #### P INR, CMP, , CBCA ####[facility] ([id number])[address] [place] [address] 50856 Platelets (Bld) [#/Vol] 258 10*3/uL Normal 150-450 [facility] Comment on above: Performed By: #### P INR, CMP, , CBCA ####[facility] ([id number])[address] [place] [address] 62076 RBC COUNT 3.92 X10E12/L Normal 3.80-5.20 [facility] Comment on above: Performed By: #### P INR, CMP, , CBCA ####[facility] ([id number])[address] [place] [address] 48530 WBC (Bld) [#/Vol] 16.2 10*3/uL High 4.0-11.[address] [facility] Comment on above: Performed By: #### P INR, CMP, , CBCA ####[facility] ([id number])[address] [place] [address] 40508 COMPREHENSIVE METABOLIC PANE [place] 12-22-2023 Albumin [Mass/Vol] 3.4 g/dL Normal 3.2-5.3 [facility] Comment on above: Performed By: #### P INR, CMP, , CBCA ####[facility] ([id number])[address] [place] [address] 23828 ALP [Catalytic activity/Vol] 59 U/L Normal 39-130 [facility] Comment on above: Performed By: #### P INR, CMP, , CBCA ####[facility] ([id number])[address] [place] [address] 53951 ALT [Catalytic activity/Vol] 11 U/L Normal 0-31 [facility] Comment on above: Performed By: #### P INR, CMP, , CBCA ####[facility] ([id number])[address] [place] [address] 31367 Anion gap [Moles/Vol] 11 mmol/L Normal 5-15 [facility] Comment on above: Performed By: #### P INR, CMP, , CBCA ####[facility] ([id number])[address] [place] [address] [place] [address] AST [Catalytic activity/Vol] 14 U/L Normal 0-41 [facility] Comment on above: Performed By: #### P INR, CMP, , CBCA ####[facility] ([id number])[address] [place] [address] 35945 Bilirubin [Mass/Vol] 0.8 mg/dL Normal 0.3-1.2 [facility] Comment on above: Performed By: #### P INR, CMP, , CBCA ####[facility] ([id number])[address] [place] [address] 86787 Calcium [Mass/Vol] 8.5 mg/dL Normal 8.5-10.5 [facility] Comment on above: Performed By: #### P INR, CMP, , CBCA ####[facility] ([id number])[address] [place] [address] 12940 Chloride [Moles/Vol] 98 mmol/L Normal 98-109 [facility] Comment on above: Performed By: #### P INR, CMP, , CBCA ####[facility] ([id number])[address] [place] [address] 04177 CO2 [Moles/Vol] 26 mmol/L Normal 22-32 [facility] Comment on above: Performed By: #### P INR, CMP, , CBCA ####[facility] ([id number])[address] [place] [address] 12294 Creatinine [Mass/Vol] 0.78 mg/dL Normal 0.40-1.00 [facility] Comment on above: Result Comment: METH OD TRACEABLE TO IDMS STANDARD Performed By: #### P INR, CMP, , CBCA ####[facility] ([id number])[address] [place] [address] 53412 GFR/1.73 sq M.predicted among non-blacks MDRD (S/P/Bld) [Vol rate/Area] 81 mL/min/{1.73_m2} Normal >59 [facility] Comment on above: Result Comment: Reported eGFR is based on the CKD-EPI 2020 equation that does not use a race coefficient. Performed By: #### P INR, CMP, , CBCA ####[facility] ([id number])[address] [place] [address] 71214 Glucose [Mass/Vol] 121 mg/dL High 65-99 [facility] Comment on above: Performed By: #### P INR, CMP, , CBCA ####[facility] ([id number])[address] [place] [address] 36551 Potassium [Moles/Vol] 3.5 mmol/L Normal 3.5-5.0 [facility] Comment on above: Performed By: #### P INR, CMP, , CBCA ####[facility] ([id number])[address] [place] [address] 54637 Protein [Mass/Vol] 7.2 g/dL Normal 6.0-8.0 [facility] Comment on above: Performed By: #### P INR, CMP, , CBCA ####[facility] ([id number])[address] [place] [address] 75283 Sodium [Moles/Vol] 135 mmol/L Normal 134-146 [facility] Comment on above: Performed By: #### P INR, CMP, , CBCA ####[facility] ([id number])[address] [place] [address] 19967 Urea nitrogen [Mass/Vol] 15 mg/dL Normal 5-27 [facility] Comment on above: Performed By: #### P INR, CMP, , CBCA ####[facility] ([id number])[address] [place] [address] 22774 Glucose Glucometer (BldC) [M ass/Vol]on 12-22-2023 Glucose [Mass/Vol] 147 mg/dL High 65-99 [facility] Glucose [Mass/Vol] 136 mg/dL High 65-99 [facility] Glucose [Mass/Vol] 120 mg/dL High 65-99 [facility] MAGNESIUMon 12-22-2023 Magnesium [Mass/Vol] 2.0 mg/dL Normal 1.8-2.6 [facility] Comment on above: Performed By: #### P INR, CMP, , CBCA ####[facility] ([id number])[address] [place] [address] 46688 PROTIME AND INRon 12-22-2023 INR Coag (PPP) [Relative time] 2.6 {INR} High 0.8-1.1 [facility] Comment on above: Performed By: #### P INR, CMP, , CBCA ####[facility] ([id number])[address] [place] [address] 80726 PT Coag (PPP) [Time] 29.0 s High 9.8-13.2 [facility] Comment on above: Result Comment: NEW REFERENCE RANGE Performed By: #### P INR, CMP, , CBCA ####[facility] ([id number])[address] [place] [address], [place] [address] Vancomycin trough [Mass/Vol] on 12-22-2023 VANCOMYCIN TROUGH 15.2 ug/mL Normal 5.0-20.0 [facility] Comment on above: Performed By: #### 4 092-3 ####[facility] ([id number])[address] [place] [address] 38247 CBC AND AUTO DIFFon 12-21-19 ABSOLUTE BASOPHIL 0.1 X10E9/L Normal 0.0-0.2 [facility] Comment on above: Performed By: #### Chanel [facility]ICKSON [facility], 17221-1 #### [facility] ([id number]) [address] [place] [address] 54696 ABSOLUTE NEUTROPHIL 11.5 X10E9/L High 1.5-6.6 [facility] Comment on above: Performed By: #### Chanel [facility]SON [facility], #### [facility] ([id number]) [address] [place] [address] 22405 Basophils/100 WBC (Bld) 0.8 % Normal [facility] Comment on above: Performed By: #### Chanel [facility]ICKSON [facility], #### [facility] ([id number]) [address] [place] [address] 43887 Eosinophils (Bld) [#/Vol] 0.3 10*3/uL Normal 0.0-0.4 [facility] Comment on above: Performed By: #### Chanel [facility]SON [facility], #### [facility] ([id number]) [address] [place] [address] 50991 Eosinophils/100 WBC (Bld) 2.2 % Normal [facility] Comment on above: Performed By: #### Chanel ERICKSON [facility], #### [facility] ([id number]) [address] [place] [address] 68965 Erythrocyte distribution width (RBC) [Ratio] 14.0 % Normal 11.5-15.0 [facility] Comment on above: Performed By: #### Chanel [facility]ICKSON [facility], #### [facility] ([id number]) [address] [place] [address] 19374 Hematocrit (Bld) [Volume fraction] 34.8 % Low 35-47 [facility] Comment on above: Performed By: #### Chanel ERICKSON [facility], #### [facility] ([id number]) [address] [place] [address] 12544 Hemoglobin (Bld) [Mass/Vol] 11.4 g/dL Low 11.7-15.5 [facility] Comment on above: Performed By: #### Chanel [facility]SON [facility], #### [facility] ([id number]) [address] [place] [address] 03542 Lymphocytes (Bld) [#/Vol] 2.0 10*3/uL Normal 1.0-3.5 [facility] Comment on above: Performed By: #### Chanel [facility]ICKSON [facility], #### [facility] ([id number]) [address] [place] [address] 85378 Lymphocytes/100 WBC (Bld) 13.2 % Normal [facility] Comment on above: Performed By: #### Chanel [facility], #### [facility] ([id number]) [address] [place] [address] 24130 MCH (RBC) [Entitic mass] 28.5 pg Normal 27-34 [facility] Comment on above: Performed By: #### Chanel [facility]SON [facility], #### [facility] ([id number]) [address] [place] [address] 86532 MCHC (RBC) [Mass/Vol] 32.6 g/dL Normal 32-36 [facility] Comment on above: Performed By: #### C DRE, CMP, 56080-3 #### [facility] ([id number]) [address] [place] [address] 88316 MCV (RBC) [Entitic vol] 87 fL Normal 80-100 [facility] Comment on above: Performed By: #### C DRE, CMP, #### [facility] ([id number]) [address] [place] [address] 11393 Monocytes (Bld) [#/Vol] 1.3 10*3/uL High 0-0.9 [facility] Comment on above: Performed By: #### Chanel ERICKSON, CMP, #### [facility] ([id number]) [address] [place] [address] 70461 Monocytes/100 WBC (Bld) 8.7 % Normal [facility] Comment on above: Performed By: #### Chanel BCA, CMP, #### [facility] ([id number]) [address] [place] [address] 07150 Neutrophils/100 WBC (Bld) 75.1 % Normal [facility] Comment on above: Performed By: #### Chanel ERICKSON, CMP, #### [facility] ([id number]) [address] [place] [address] 09174 Platelet mean volume (Bld) [Entitic vol] 8.8 fL Normal 7-12 [facility] Comment on above: Performed By: #### Chanel BCA, CMP, #### [facility] ([id number]) [address] [place] [address] 43576 Platelets (Bld) [#/Vol] 257 10*3/uL Normal 150-450 [facility] Comment on above: Performed By: #### Chanel BCA, CMP, #### [facility] ([id number]) [address] [place] [address] 18459 RBC COUNT 3.98 X10E12/L Normal 3.80-5.20 [facility] Comment on above: Performed By: #### C BCA, CMP, 25753-4 #### [facility] ([id number]) [address] [place] [address] 40412 WBC (Bld) [#/Vol] 15.3 10*3/uL High 4.0-11.[address] [facility] Comment on above: Performed By: #### C BCA, CMP, #### [facility] ([id number]) [address] [place] [address] 61262 COMPREHENSIVE METABOLIC PANE Tyrone 12-21-2023 Albumin [Mass/Vol] 3.3 g/dL Normal 3.2-5.3 [facility] Comment on above: Performed By: #### C BCA, CMP, ####[facility] ([id number])[address] [place] [address] 52477 ALP [Catalytic activity/Vol] 59 U/L Normal 39-130 [facility] Comment on above: Performed By: #### C BCA, CMP, 80154-7 ####[facility] ([id number])[address] [place] [address] 90296 ALT [Catalytic activity/Vol] 13 U/L Normal 0-31 [facility] Comment on above: Performed By: #### C BCA, CMP, 10338-1 ####[facility] ([id number])[address] [place] [address] 64885 Anion gap [Moles/Vol] 11 mmol/L Normal 5-15 [facility] Comment on above: Performed By: #### C BCA, CMP, 11030-4 ####[facility] ([id number])[address] [place] [address] 37059 AST [Catalytic activity/Vol] 11 U/L Normal 0-41 [facility] Comment on above: Performed By: #### C SEAN ERICKSON, 32990-4 ####[facility] ([id number])[address] [place] [address] 05341 Bilirubin [Mass/Vol] 1.0 mg/dL Normal 0.3-1.2 [facility] Comment on above: Performed By: #### C SEAN ERICKSON, ####[facility] ([id number])[address] [place] [address] 34005 Calcium [Mass/Vol] 8.5 mg/dL Normal 8.5-10.5 [facility] Comment on above: Performed By: #### Chanel ERICKSON CMP, ####[facility] ([id number])[address] [place] [address] 18910 Chloride [Moles/Vol] 101 mmol/L Normal 98-109 [facility] Comment on above: Performed By: #### C SEAN ERICKSON, 35873-3 ####[facility] ([id number])[address] [place] [address] 04051 CO2 [Moles/Vol] 25 mmol/L Normal 22-32 [facility] Comment on above: Performed By: #### C SEAN ERICKSON, ####[facility] ([id number])[address] [place] [address] 84223 Creatinine [Mass/Vol] 0.66 mg/dL Normal 0.40-1.00 [facility] Comment on above: Result Comment: METH OD TRACEABLE TO IDMS STANDARD Performed By: #### C SEAN ERICKSON, ####[facility] ([id number])[address] [place] [address] 24842 eGFR (CKD-EPI) NON-RACE DEPENDENT >90 Normal >59 [facility] Comment on above: Result Comment: Reported eGFR is based on the CKD-EPI 2020 equation that does not use a race coefficient. Performed By: #### C SEAN ERICKSON, ####[facility] ([id number])[address] [place] [address] 10614 Glucose [Mass/Vol] 132 mg/dL High 65-99 [facility] Comment on above: Performed By: #### Chanel ERICKSON CMP, ####[facility] ([id number])[address] [place] [address] 00568 Potassium [Moles/Vol] 3.5 mmol/L Normal 3.5-5.0 [facility] Comment on above: Performed By: #### Chanel ERICKSON CMP, ####[facility] ([id number])[address] [place] [address] 84231 Protein [Mass/Vol] 7.0 g/dL Normal 6.0-8.0 [facility] Comment on above: Performed By: #### C DRE [facility], 60166-9 ####[facility] ([id number])[address] [place] [address] 05083 Sodium [Moles/Vol] 137 mmol/L Normal 134-146 [facility] Comment on above: Performed By: #### Chanel ERICKSON CMP, 37299-1 ####[facility] ([id number])[address] [place] [address] 75757 Urea nitrogen [Mass/Vol] 15 mg/dL Normal 5-27 [facility] Comment on above: Performed By: #### Chanel ERICKSON CMP, 45833-3 ####[facility] ([id number])[address] [place] [address] 30143 Glucose Glucometer (BldC) [M ass/Vol]on 12-21-2023 Glucose [Mass/Vol] 130 mg/dL High 65-99 [facility] Glucose [Mass/Vol] 153 mg/dL High 65-99 [facility] Glucose [Mass/Vol] 206 mg/dL High 65-99 [facility] MAGNESIUMon 12-21-2023 Magnesium [Mass/Vol] 2.2 mg/dL Normal 1.8-2.6 [facility] Comment on above: Performed By: #### C BCA, [facility], 61879-8 ####[facility] ([id number])[address] [place], [place] [address] MR FOOT LT W WO CONTon 12-20 [...] Garcia MD on 12/21/2023 1:06 PM Normal [facility] POTASSIUMon 12-21-2023 Potassium [Moles/Vol] 3.8 mmol/L Normal 3.5-5.0 [facility] Comment on above: Performed By: #### 2 823-3 ####[facility] ([id number])[address] [place] [address] 47784 PROTIME AND INRon 12-21-2023 INR Coag (PPP) [Relative time] 2.4 {INR} High 0.8-1.1 [facility] Comment on above: Performed By: #### P INR ####[facility] ([id number])[address] [place] [address] 72393 PT Coag (PPP) [Time] 27.0 s High 9.8-13.2 [facility] Comment on above: Result Comment: NEW REFERENCE RANGE Performed By: #### P INR ####[facility] ([id number])[address] [place] [address] 01295 BLOOD CULTUREon 12-20-2023 Bacteria identified Aer cx Nom (Bld) SPECIMEN NOTES RSURFACE VEIN CULTURE RESULTS NO GROWTH 5 DAYS Normal [facility] Comment on above: Performed By: #### 1 7928-3 ####[facility] ([id number])[address] [place] [address] 14811 Bacteria identified Aer cx Nom (Bld) SPECIMEN NOTES SUBOPTIMAL VOLUME OF BLOOD COLLECTED, RESULTS MAY BE AFFECTED. CULTURE RESULTS NO GROWTH 5 DAYS Normal [facility] Comment on above: Performed By: #### 1 7928-3 ####[facility] ([id number])[address] [place] [address], [address] [place] [address] 05049 CBC AND AUTO DIFFon 12-20-19 24 ABSOLUTE BASOPHIL 0.1 X10E9/L Normal 0.0-0.2 [facility] Comment on above: Performed By: #### C SEAN ERICKSON, 1988-02 #### [facility] ([id number]) [address] [place] [address] 63130 #### 51237-5 #### [facility] ([id number]) [facility], [address] [place] [address] 10387 ABSOLUTE NEUTROPHIL 12.0 X10E9/L High 1.5-6.6 [facility] Comment on above: Performed By: #### C SEAN ERICKSON, 1986-02 #### [facility] ([id number]) [address] [place] [address] 18212 #### 31456-8 #### [facility] ([id number]) [address], [address] [place] [address] Basophils/100 WBC (Bld) 0.5 % Normal [facility] Comment on above: Performed By: #### Chanel ERICKSON CMP, 1988-02 #### [facility] ([id number]) [address] [place] [address] 82031 #### 11669-3 #### [facility] ([id number]) [address] [facility], [address] [place] [address] Eosinophils (Bld) [#/Vol] 0.3 10*3/uL Normal 0.0-0.4 [facility] Comment on above: Performed By: #### Chanel ERICKSON CMP, 1988-02 #### [facility] ([id number]) [address] [place] [address] 10477 #### 20886-7 #### [facility] ([id number]) [address] [facility], [address] [place] [address] Eosinophils/100 WBC (Bld) 2.0 % Normal [facility] Comment on above: Performed By: #### Chanel ERICKSON CMP, 1988-02 #### [facility] ([id number]) [address] [place] [address] 49511 #### 51715-5 #### [facility] ([id number]) [address] [place] [address] Erythrocyte distribution width (RBC) [Ratio] 14.0 % Normal 11.5-15.0 [facility] Comment on above: Performed By: #### Chanel ERICKSON CMP, 1988-02 #### [facility] ([id number]) [address] [place] [address] 46302 #### 13947-3 #### [facility] ([id number]) [address] [facility], [address] [place] [address] Hematocrit (Bld) [Volume fraction] 36.1 % Normal 35-47 [facility] Comment on above: Performed By: #### Chanel ERICKSON CMP, 1988-02 #### [facility] ([id number]) [address] [place] [address] 88217 #### 99301-0 #### [facility] ([id number]) [address] [facility], [address] [place] [address] Hemoglobin (Bld) [Mass/Vol] 12.1 g/dL Normal 11.7-15.5 [facility] Comment on above: Performed By: #### Chanel ERICKSON CMP, 1988-02 #### [facility] ([id number]) [address] [place] [address] 72694 #### 18599-0 #### [facility] ([id number]) [address] [facility], [address] [place] [address] Lymphocytes (Bld) [#/Vol] 2.4 10*3/uL Normal 1.0-3.5 [facility] Comment on above: Performed By: #### Chanel ERICKSON CMP, 1988-02 #### [facility] ([id number]) [address] [place] [address] 01320 #### 89071-2 #### [facility] ([id number]) [address] [facility], [address] [place] [address] Lymphocytes/100 WBC (Bld) 14.9 % Normal [facility] Comment on above: Performed By: #### Chanel ERICKSON CMP, 1988-02 #### [facility] ([id number]) [address] [place] [address] 31016 #### 04867-1 #### [facility] ([id number]) [address], [address] [place] [address] MCH (RBC) [Entitic mass] 28.9 pg Normal 27-34 [facility] Comment on above: Performed By: #### C SEAN ERICKSON, 1988-02 #### [facility] ([id number]) [address] [place] [address] 43168 #### 31206-7 #### [facility] ([id number]) [address], [address] [place] [address] MCHC (RBC) [Mass/Vol] 33.5 g/dL Normal 32-36 [facility] Comment on above: Performed By: #### Chanel ERICKSON CMP, 1988-02 #### [facility] ([id number]) [address] [place] [address] 86382 #### 81390-6 #### [facility] ([id number]) [address] [place] [address] MCV (RBC) [Entitic vol] 86 fL Normal 80-100 [facility] Comment on above: Performed By: #### Chanel ERICKSON CMP, 1988-02 #### [facility] ([id number]) [address] [place] [address] 83911 #### 26137-9 #### [facility] ([id number]) [address], [address] [place] [address] Monocytes (Bld) [#/Vol] 1.5 10*3/uL High 0-0.9 [facility] Comment on above: Performed By: #### Chanel ERICKSON CMP, 1988-02 #### [facility] ([id number]) [address] [place] [address] 91286 #### 58924-6 #### [facility] ([id number]) [address], [address] [place] [address] Monocytes/100 WBC (Bld) 9.3 % Normal [facility] Comment on above: Performed By: #### Chanel ERICKSON CMP, 1988-02 #### [facility] ([id number]) [address] [place] [address] 93769 #### 58960-4 #### [facility] ([id number]) [address], [address] [place] [address] Neutrophils/100 WBC (Bld) 73.3 % Normal [facility] Comment on above: Performed By: #### Chanel ERICKSON CMP, 1988-02 #### [facility] ([id number]) [address] [place] [address] 76587 #### 15671-6 #### [facility] ([id number]) [address], [address] [place] [address] Platelet mean volume (Bld) [Entitic vol] 8.4 fL Normal 7-12 [facility] Comment on above: Performed By: #### Chanel ERICKSON CMP, 1988-02 #### [facility] ([id number]) [address] [place] [address] 47507 #### 27261-2 #### [facility] ([id number]) [address], [address] [place] [address] Platelets (Bld) [#/Vol] 282 10*3/uL Normal 150-450 [facility] Comment on above: Performed By: #### Chanel ERICKSON CMP, 1988-02 #### [facility] ([id number]) [address] [place] [address] 26682 #### 89713-1 #### [facility] ([id number]) [address], [address] [place] [address] RBC COUNT 4.18 X10E12/L Normal 3.80-5.20 [facility] Comment on above: Performed By: #### C DRE CMP, 1988-02 #### [facility] ([id number]) [address] [place] [address] 89173 #### 14039-5 #### [facility] ([id number]) [address], [address] [place] [address] WBC (Bld) [#/Vol] 16.4 10*3/uL High 4.0-11.[address] [facility] Comment on above: Performed By: #### Chanel ERICKSON [facility], 1988-02 #### [facility] ([id number]) [address] [place] [address] 79365 #### 79333-8 #### [facility] ([id number]) [address] [facility], [address] [place] [address] COMPREHENSIVE METABOLIC PANE Tyrone 12-20-2023 Albumin [Mass/Vol] 3.7 g/dL Normal 3.2-5.3 [facility] Comment on above: Performed By: #### Chanel ERICKSON [facility], 1988-02 #### [facility] ([id number]) [address] [place] [address] 06950 #### 21486-0 #### [facility] ([id number]) [address] [place] [address] ALP [Catalytic activity/Vol] 74 U/L Normal 39-130 [facility] Comment on above: Performed By: #### C DRE CMP, 1988-02 #### [facility] ([id number]) [address] [place] [address] 13190 #### 81320-5 #### [facility] ([id number]) [address] [facility], [address] [place] [address] ALT [Catalytic activity/Vol] 15 U/L Normal 0-31 [facility] Comment on above: Performed By: #### Chanel ERICKSON, CMP, 1988-02 #### [facility] ([id number]) [address] [place] [address] 16670 #### 85545-0 #### [facility] ([id number]) [address] [place] [address] Anion gap [Moles/Vol] 6 mmol/L Normal 5-15 [facility] Comment on above: Performed By: #### Chanel BCA, CMP, 1988-02 #### [facility] ([id number]) [address] [place] [address] 52154 #### 62555-8 #### [facility] ([id number]) [address] [place] [address] AST [Catalytic activity/Vol] 17 U/L Normal 0-41 [facility] Comment on above: Performed By: #### Chanel BCA, CMP, 1988-02 #### [facility] ([id number]) [address] [place] [address] 30585 #### 77896-4 #### [facility] ([id number]) [address] [place] [address] Bilirubin [Mass/Vol] 0.4 mg/dL Normal 0.3-1.2 [facility] Comment on above: Performed By: #### Chanel BCA, CMP, 1988-02 #### [facility] ([id number]) [address] [place] [address] 75332 #### 05411-0 #### [facility] ([id number]) [address] [place] [address] Calcium [Mass/Vol] 8.3 mg/dL Low 8.5-10.5 [facility] Comment on above: Performed By: #### C BCA, [facility], 1988-02 #### [facility] ([id number]) [address] [place] [address] 93647 #### 85084-9 #### [facility] ([id number]) [address] [place] [address] Chloride [Moles/Vol] 101 mmol/L Normal 98-109 [facility] Comment on above: Performed By: #### C BCA, [facility], 1988-02 #### [facility] ([id number]) [address] [place] [address] 78487 #### 20945-4 #### [facility] ([id number]) [address] [place] [address] CO2 [Moles/Vol] 26 mmol/L Normal 22-32 [facility] Comment on above: Performed By: #### C DRE [facility], 1988-02 #### [facility] ([id number]) [address] [place] [address] 39385 #### 13620-3 #### [facility] ([id number]) [address] [place] [address] Creatinine [Mass/Vol] 0.69 mg/dL Normal 0.40-1.00 [facility] Comment on above: Result Comment: METH OD TRACEABLE TO IDMS STANDARD Performed By: #### C BCA, [facility], 1988-02 #### [facility] ([id number]) [address] [place] [address] 64714 #### 20430-5 #### [facility] ([id number]) [address] [place] [address] eGFR (CKD-EPI) NON-RACE DEPENDENT >90 Normal >59 [facility] Comment on above: Result Comment: Reported eGFR is based on the CKD-EPI 2020 equation that does not use a race coefficient. Performed By: #### C DRE [facility], 1988-02 #### [facility] ([id number]) [address] [place] [address] 20854 #### 39220-5 #### [facility] ([id number]) [address], [address] [place] [address] Glucose [Mass/Vol] 132 mg/dL High 65-99 [facility] Comment on above: Performed By: #### [facility] #### [facility] ([id number]) [address] [place] [address] 89982 #### [id number] #### [facility] ([id number]) [address], [address] [place] [address] Potassium [Moles/Vol] 3.8 mmol/L Normal 3.5-5.0 [facility] Comment on above: Performed By: #### [facility], [facility] #### [facility] ([id number]) [address] [place] [address]6043 #### [id number] #### [facility] ([id number]) [address], [address] [place] [address] Protein [Mass/Vol] 7.9 g/dL Normal 6.0-8.0 [facility] Comment on above: Performed By: #### [facility] #### [facility] ([id number]) [address] [place] [address] 85892 #### [id number] #### [facility] ([id number]) [address] [place] [address] Sodium [Moles/Vol] 133 mmol/L Low 134-146 [facility] Comment on above: Performed By: #### [facility], [facility] #### [facility] ([id number]) [address] [place] [address]99 #### [id number] #### [facility] ([id number]) [address] [place] [address] Urea nitrogen [Mass/Vol] 16 mg/dL Normal 5-27 [facility] Comment on above: Performed By: #### [facility], [facility] #### [facility] ([id number]) [address] [place] [address] 15283 #### [id number] #### [facility] ([id number]) [address], [address] [place] [address] CRP [Mass/Vol]on 12-20-2023 C REACTIVE PROTEIN 11.8 mg/dL High 0.000-0.[address] [facility] Comment on above: Performed By: #### [facility], [facility] #### [facility] ([id number]) [address] [place] [address] #### [id number] #### [facility] ([id number]) [address] [place] [address] ESR Photometric method (Bld) [Velocity]on 12-20-2023 ESR, ERYTHROCYTE SEDIMENTATION RATE 60 mm/h High 0-30 [facility] Comment on above: Performed By: #### [facility], [facility] #### [facility] ([id number]) [address] [place] [address]7412 #### [id number] #### [facility] ([id number]) [address] [place] [address] Glucose Glucometer (BldC) [M ass/Vol]on 12-20-2023 Glucose [Mass/Vol] 174 mg/dL High 65-99 [facility] URINALYSISon 12-20-2023 Bilirubin Ql (U) Negative Normal NEG [facility] Comment on above: Performed By: #### U A #### [facility] ([id number]) [address] [place] [address] 90520 BLOOD/HGB Negative Normal NEG [facility] Comment on above: Performed By: #### U A #### [facility] ([id number]) [address] [place] [address] 26794 Color (U) YELLOW Normal YELLOW [facility] Comment on above: Performed By: #### U A #### [facility] ([id number]) [address] [place] [address] 91823 Glucose Ql (U) Negative Normal NEG [facility] Comment on above: Performed By: #### U A #### [facility] ([id number]) [address] [place] [address] 42408 Ketones Ql (U) Negative Normal NEG [facility] Comment on above: Performed By: #### U A #### [facility] ([id number]) [address] [place] [address] 00022 Leukocyte esterase Test strip Ql (U) Negative Normal NEG [facility] Comment on above: Performed By: #### U A #### [facility] ([id number]) [address] [place] [address] 93804 Nitrite Ql (U) Positive Abnormal NEG [facility] Comment on above: Performed By: #### U A #### [facility] ([id number]) [address] [place] [address] 82507 pH (U) 6.0 [pH] Normal 5.0-8.5 [facility] Comment on above: Performed By: #### U A #### [facility] ([id number]) [address] [place] [address] 39630 Protein Ql (U) Negative Normal NEG [facility] Comment on above: Performed By: #### U A #### [facility] ([id number]) [address] [place] [address] 41733 R.B.CELLS 0 /hpf Normal 0-5 [facility] Comment on above: Performed By: #### U A #### [facility] ([id number]) [address] [place] [address] 19310 Specific gravity (U) [Rel density] 1.015 Normal 1.003-1.035 [facility] Comment on above: Performed By: #### U A #### [facility] ([id number]) [address] [place] [address] 08225 SQUAMOUS EPITHELIUM 0 to 3 Normal 0-[address] [facility] Comment on above: Performed By: #### U A #### [facility] ([id number]) [address] [place] [address] 61713 TURBIDITY CLEAR Normal CLEAR [facility] Comment on above: Performed By: #### U A #### [facility] ([id number]) [address] [place] [address] 11971 Urobilinogen Qn (U) 0.2 {Mindy'U}/dL Normal <1.1 [facility] Comment on above: Performed By: #### U A #### [facility] ([id number]) [address] [place] [address] 29376 W.B.CELLS 0 to 1 Normal 0-5 [facility] Comment on above: Performed By: #### U A #### [facility] ([id number]) [address] [place] [address] 80816 XR FOOT LT MIN 3 VWSon XR [...] Bradshaw MD on 12/20/2023 6:37 PM Normal [facility] XR FOOT RT MIN 3 VWSon [...] Bradshaw MD on 12/20/2023 5:56 PM Normal [facility] XR KNEE RT 3 VWSon XR [...] cholesterol levels look good. Continue pravastatin. Thanks [facility] Telephoneon 11-16-2023 Telephone [id number] Maximo Gill 1950 Date Provider Department Center 11/16/2023 EBER PAGAN CHING Tavera Family History Problem Relation Age of Onset Heart attack Father Diabetes Father Hypertension Father Coronary artery disease Father Rheum arthritis Father Family Status - Relation Status Age at Father [facility] 37on 11-01-2023 37 *Increase amlodipine to 10mg daily. You can take 2 tablets of your current 5mg prescription daily until this runs out then start new prescription of 1 - 10mg tablet daily. *Monitor your blood pressure daily 1-2 hours after medications *Have labs drawn *Follow-up with GI given dark stools [facility] Office Visiton 11-01-2023 Follow-up visit [id number] Maximo Gill 1950 Date Provider Department Center 11/01/2023 EBER PAGAN CHING Salazar Family History Problem Relation Age of Onset Heart attack Father Diabetes Father Hypertension Father Coronary artery disease Father Rheum arthritis Father Family Status - Relation Status Age at Father Level of Service:49939 [place] OFFICE/OUTPATIENT ESTABLISHED MOD MDM 30 MIN Reason for Visit and Comments: Atrial Fibrillation [80] Congestive Heart Failure [127] [facility] Office Visiton 05-23-2023 Follow-up visit [id number] Maximo Gill 1950 Date Provider Department Center 05/23/2023 RAMAN CASTANEDA CHING Salazar Family History Problem Relation Age of Onset Heart attack Father Diabetes Father Hypertension Father Coronary artery disease Father Rheum arthritis Father Family Status - Relation Status Age at Father Level of Service:23054 [place] OFFICE/OUTPATIENT ESTABLISHED LOW MDM 20-[address] [facility] CBC AUTO DIFFon 03-02-2023 BASO # 0.1 103/ul Normal 0.0-0.1 [facility] Comment on above: Performed By: #### C BC #### [facility] [address] [address] [address] Yandy Rodarte Basophils/100 WBC (Bld) 0.4 % Normal 0.2-2.0 [facility] Comment on above: Performed By: #### C BC #### [facility] [address] [address] [address] Yandy Rodarte EO # 0.5 103/ul Normal 0.0-0.7 [facility] Comment on above: Performed By: #### C BC #### [facility] [address] [place] [address] Dr. Yandy Rodarte Eosinophils/100 WBC (Bld) 4.1 % Normal 0.9-7.0 [facility] Comment on above: Performed By: #### C BC #### [facility] [address] [place] [address] Dr. Yandy Rodarte Erythrocyte distribution width (RBC) [Ratio] 14.0 % Normal 11.0-15.0 [facility] Comment on above: Performed By: #### C BC #### [facility] [address] [place] [address] Dr. Yandy Rodarte Hematocrit (Bld) [Volume fraction] 42.8 % Normal 36.0-48.0 [facility] Comment on above: Performed By: #### C BC #### [facility] [address] [place] [address] Dr. Yandy Rodarte Hemoglobin (Bld) [Mass/Vol] 13.6 g/dL Normal 12.0-16.0 [facility] Comment on above: Performed By: #### C BC #### [facility] [address] [place] [address] Dr. Yandy Rodarte IG # 0.04 10e3/ul Critically high 0.00-0.03 [facility] Comment on above: Performed By: #### C BC #### [facility] [address] [place] [address] Dr. Yandy Rodarte IG % 0.4 % Normal 0.0-0.5 [facility] Comment on above: Performed By: #### C BC #### [facility] [address] [place] [address] Dr. Yandy Rodarte LYMPH # 2.2 103/ul Normal 1.2-3.8 [facility] Comment on above: Performed By: #### C BC #### [facility] [address] [place] [address] Dr. Yandy Rodarte Lymphocytes/100 WBC (Bld) 20.0 % Critically low 20.5-60.0 [facility] Comment on above: Performed By: #### C BC #### [facility] [address] [place] [address] Dr. Yandy Rodarte MANUAL DIFF REQ NO Normal [facility] Comment on above: Performed By: #### C BC #### [facility] [address] [place] [address] Dr. Yandy Rodarte MCH (RBC) [Entitic mass] 28.2 pg Normal 26.7-34.0 [facility] Comment on above: Performed By: #### C BC #### [facility] [address] [place] [address] Dr. Yandy Rodarte MCHC (RBC) [Mass/Vol] 31.8 g/dL Normal 29.9-35.2 [facility] Comment on above: Performed By: #### C BC #### [facility] [address] [place] [address] Dr. Yandy Rodarte MCV (RBC) [Entitic vol] 88.8 fL Normal 81.0-99.0 [facility] Comment on above: Performed By: #### C BC #### [facility] [address] [place] [address] Dr. Yandy Rodarte MONO # 0.7 103/ul Normal 0.3-0.8 [facility] Comment on above: Performed By: #### C BC #### [facility] [address] [place] [address] Dr. Yandy Rodarte Monocytes/100 WBC (Bld) 6.3 % Normal 1.7-12.0 [facility] Comment on above: Performed By: #### C BC #### [facility] [address] [place] [address] Dr. Yandy Rodarte NEUT # 7.7 103/ul Critically high 1.4-6.5 [facility] Comment on above: Performed By: #### C BC #### [facility] [address] [place] [address] Dr. Yandy Rodarte Neutrophils/100 WBC (Bld) 68.8 % Normal 43.0-75.0 [facility] Comment on above: Performed By: #### C BC #### [facility] [address] [place] [address] Dr. Yanyd Rodarte Platelet mean volume (Bld) [Entitic vol] 9.8 fL Normal 9.5-13.5 [facility] Comment on above: Performed By: #### C BC #### [facility] [address] [place] [address] Dr. Yandy Rodarte PLT 259 103/ul Normal 150-450 [facility] Comment on above: Performed By: #### C BC #### [facility] [address] [place] [address] Dr. Yandy Rodarte RBC 4.82 106/ul Normal 4.20-5.40 [facility] Comment on above: Performed By: #### C BC #### [facility] [address] [place] [address] Dr. Yandy Rodarte WBC 11.2 103/ul Critically high 4.0-11.0 [facility] Comment on above: Performed By: #### C BC #### [facility] [address] [place] [address] Dr. Yandy Rodarte ECHOCARDIO M/2D COMPLETEon 0 - ECHOCARDIO M/2D COMPLETE Patient: AFIA GILL Exam Date: 03/02/2023 : 1950 Gender:F Ordering : MRS. JESSICA PRECIADO [employer] Admission #: [id number] Family : Order #: [id number] CLICK HERE TO VIEW EXAM ECHOCARDIOGRAM REPORT [...] Left Atrium LA Volume Index (2D A2C): 418188 mm3 Left Atrium Systolic Dimension: 3.80 cm [...] Gomez M.D. on 03/02/2023 at 19:19 Normal [facility] LIPID PROFILEon 03-02-2023 CHOL-HDL RATIO NORM SEE BELOW Normal [facility] Comment on above: Result Comment: 3.3 - 4.4 LOW RISK 4.4 - 7.1 AVERAGE RISK 7.1 - 11.0 MODERATE RISK >11.0 HIGH RISK Performed By: #### L IPID, CMP #### [facility] [address] [address] [address] Yandy Rodarte Cholesterol [Mass/Vol] 203 mg/dL Critically high <=200 [facility] Comment on above: Performed By: #### L IPID, CMP #### [facility] [address] [address] [address] Yandy Rodarte Cholesterol in HDL [Mass/Vol] 35 mg/dL Critically low 40-60 [facility] Comment on above: Performed By: #### L IPID, CMP #### [facility] [address] [address] [address] Yandy Rodarte Cholesterol in LDL [Mass/Vol] 123.0 mg/dL Normal [facility] Comment on above: Performed By: #### L IPID, CMP #### [facility] [address] [address] [address] Yandy Rodarte Cholesterol.total/C holesterol in HDL [Mass ratio] 5.8 {ratio} Normal [facility] Comment on above: Performed By: #### L IPID, CMP #### [facility] [address] [address] [address] Yandy Rodarte HDL NORMAL > or = 60 mg/dl - LO W CARDIOVASCULAR RISK <40 mg/dl - HIGH CARDIOVASCULAR RISK Normal [facility] Comment on above: Performed By: #### L IPID, CMP #### [facility] [address] [address] [address] Yandy Rodarte LDL CALC NORMAL SEE BELOW Normal [facility] Comment on above: Result Comment: <100 mg/dl OPTIMAL 100 - 129 mg/dl NEAR OR ABOVE OPTIMAL 130 - 159 mg/dl BORDERLINE HIGH 160 - 189 mg/dl HIGH >190 mg/dl VERY HIGH Performed By: #### L IPID, CMP #### [facility] [address] [address] [address] Yandy Rodarte Triglyceride [Mass/Vol] 225 mg/dL Critically high <=150 [facility] Comment on above: Performed By: #### L IPID, CMP #### [facility] [address] [address] [address] Yandy Rodarte VLDL CALC 45.0 mg/dL Normal [facility] Comment on above: Performed By: #### L IPID, CMP #### [facility] [address] [address] [address] Yandy Rodarte PROF 14(COMP METB)on 023 Albumin [Mass/Vol] 3.5 g/dL Normal 3.4-5.0 [facility] Comment on above: Performed By: #### L IPID, CMP #### [facility] [address] [place] [address] Dr. Yandy Rodarte Albumin/Globulin [Mass ratio] 0.8 {ratio} Normal [facility] Comment on above: Performed By: #### L IPID, CMP #### [facility] [address] [place] [address] Dr. Yandy Rodarte ALP [Catalytic activity/Vol] 100 U/L Normal 46-116 [facility] Comment on above: Performed By: #### L IPID, CMP #### [facility] [address] [place] [address] Dr. Yandy Rodarte ALT [Catalytic activity/Vol] 22 U/L Normal 14-59 [facility] Comment on above: Performed By: #### L IPID, CMP #### [facility] [address] [address] [address] Yandy Rodarte Anion gap [Moles/Vol] 8.9 mmol/L Normal [facility] Comment on above: Performed By: #### L IPID, CMP #### [facility] [address] [address] [address] Yandy Rodarte AST [Catalytic activity/Vol] 17 U/L Normal 15-37 [facility] Comment on above: Performed By: #### L IPID, CMP #### [facility] [address] [address] [address] Yandy Rodarte Bilirubin [Mass/Vol] 0.4 mg/dL Normal 0.2-1.0 [facility] Comment on above: Performed By: #### L IPID, CMP #### [facility] [address] [place] [address] Dr. Yandy Rodarte Calcium [Mass/Vol] 9.2 mg/dL Normal 8.5-10.1 [facility] Comment on above: Performed By: #### L IPID, CMP #### [facility] [address] [address] [address] Yandy Rodarte Chloride [Moles/Vol] 104 mmol/L Normal 98-107 [facility] Comment on above: Performed By: #### L IPID, CMP #### [facility] [address] [place] [address] Dr. Yandy Rodarte CO2 [Moles/Vol] 32.6 mmol/L Critically high 21.0-32.0 [facility] Comment on above: Performed By: #### L IPID, CMP #### [facility] [address] [place] [address] Dr. Yandy Rodarte Creatinine [Mass/Vol] 0.81 mg/dL Normal 0.55-1.02 [facility] Comment on above: Performed By: #### L IPID, CMP #### [facility] [address] [place] [address] Dr. Yandy Rodarte EGFR-AF HAITIAN >60 Normal >=60 [facility] Comment on above: Performed By: #### L IPID, CMP #### [facility] [address] [address] [address] Yandy Rodarte EGFR-NON AF HAITIAN >60 Normal >=60 [facility] Comment on above: Performed By: #### L IPID, CMP #### [facility] [address] [address] [address] Yandy Rodarte Globulin (S) [Mass/Vol] 4.6 g/dL Normal [facility] Comment on above: Performed By: #### L IPID, CMP #### [facility] [address] [address] [address] Yandy Rodarte Glucose [Mass/Vol] 114 mg/dL Critically high 74-106 [facility] Comment on above: Performed By: #### L IPID, CMP #### [facility] [address] [place] [address] Dr. Yandy Rodarte Potassium [Moles/Vol] 4.5 mmol/L Normal 3.5-5.1 [facility] Comment on above: Performed By: #### L IPID, CMP #### [facility] [address] [place] [address] Dr. Yandy Rodarte Protein [Mass/Vol] 8.1 g/dL Normal 6.4-8.2 [facility] Comment on above: Performed By: #### L IPID, CMP #### [facility] [address] [place] [address] Dr. Yandy Rodarte Sodium [Moles/Vol] 141 mmol/L Normal 136-145 [facility] Comment on above: Performed By: #### L IPID, CMP #### [facility] [address] [place] [address] Dr. Yandy Rodarte Urea nitrogen [Mass/Vol] 18.0 mg/dL Normal 7.0-18.0 [facility] Comment on above: Performed By: #### L IPID, CMP #### [facility] [address] [place] [address] Dr. Yandy Rodarte Urea nitrogen/Creatinine [Mass ratio] 22.2 mg/mg Normal [facility] Comment on above: Performed By: #### L IPID, CMP #### [facility] [address] [address] [address] Yandy Rodarte Office Visiton 02-19-2023 Follow-up visit [id number] Maximo Gill 1950 F Date Provider Department Center 02/19/2023 [id number] PRECIADO [facility] Family History Problem Relation Age of Onset Heart attack Father Diabetes Father Hypertension Father Coronary artery disease Father Rheum arthritis Father Family Status - Relation Status Age at Father Level of Service:84483 [place] OFFICE/OUTPATIENT ESTABLISHED MOD MDM 30-39 MIN Reason for Visit and Comments: Follow-up [022258] - 6 month follow up Normal [facility] MG MAMM SCREEN MARIELENA W CADon 0 12-27-2022 MG MAMM SCREEN MARIELENA W CAD Patient: AFIA GILL Exam Date: 12/27/2022 : 1950 Gender:F Ordering : DR YAHIR BROTHERS M.D. Admission #: [id number] Family : Order #: [id number] CLICK HERE TO VIEW EXAM RADIOLOGY REPORT [...] at age 37. LOCATION: [facility] BREAST COMPOSITION: Scattered areas fibroglandular density. [...] MD on 12/28/2022 at 09:38 Normal [facility] CT SINUSES WO CONon 05-18-20 22 [...] by: YAYA ZULUAGA Date: 2022-05-18 08:38 Normal [facility] BASIC METABOLIC PANELon 01-20 Calcium [Mass/Vol] 9.6 mg/dL Normal 8.6-10.3 [facility] Comment on above: Order Comment: No: D o not add to previous draw Performed By: #### 5 0608 #### [facility] [address] [place] [address], [place] Chloride [Moles/Vol] 101 mmol/L Normal 98-107 [facility] Comment on above: Order Comment: No: D o not add to previous draw Performed By: #### 5 0608 #### [facility] [address] [place] [address], [place] CO2 [Moles/Vol] 29 mmol/L Normal 21-31 [facility] Comment on above: Order Comment: No: D o not add to previous draw Performed By: #### 5 0608 #### [facility] [address] [place] [address], [place] Creatinine [Mass/Vol] 0.71 mg/dL Normal 0.60-1.20 [facility] Comment on above: Order Comment: No: D o not add to previous draw Performed By: #### 5 0608 #### [facility] [address] [place] [address], [place] GFR/1.73 sq M predicted among blacks MDRD (S/P/Bld) [Vol rate/Area] mL/min/{1.73_m2} Normal >60 [facility] Comment on above: Order Comment: No: D o not add to previous draw Performed By: #### 5 0608 #### [facility] [address] [place] [address], [place] GFR/1.73 sq M predicted among non-blacks MDRD (S/P/Bld) [Vol rate/Area] mL/min/{1.73_m2} Normal >60 [facility] Comment on above: Order Comment: No: D o not add to previous draw Performed By: #### 5 0608 #### [facility] [address] [place] [address], [place] Glucose [Mass/Vol] 127 mg/dL High 70-100 [facility] Comment on above: Order Comment: No: D o not add to previous draw Performed By: #### 5 0608 #### [facility] [address] [place] [address], [place] Potassium [Moles/Vol] 4.3 mmol/L Normal 3.5-5.1 [facility] Comment on above: Order Comment: No: D o not add to previous draw Performed By: #### 5 0608 #### [facility] [address] [place] [address], [place] Sodium [Moles/Vol] 137 mmol/L Normal 136-145 [facility] Comment on above: Order Comment: No: D o not add to previous draw Performed By: #### 5 0608 #### [facility] [address] [place] [id number], [facility] Urea nitrogen [Mass/Vol] 20 mg/dL Normal 7-25 [facility] Comment on above: Order Comment: No: D o not add to previous draw Performed By: #### 5 0608 #### [facility] [address] [place] [address], [facility] CBC COMPLETE BLOOD COUNTon - Erythrocyte distribution width (RBC) [Ratio] 14.6 % Normal 11.5-15.0 [facility] Comment on above: Order Comment: No: D o not add to previous draw Performed By: #### 5 0608 #### [facility] [address] [place] [address], [facility] Hematocrit (Bld) [Volume fraction] 44.6 % Normal 36.0-45.0 [facility] Comment on above: Order Comment: No: D o not add to previous draw Performed By: #### 5 0608 #### [facility] [address] [place] [address], [facility] Hemoglobin (Bld) [Mass/Vol] 14.1 g/dL Normal 12.0-15.0 [facility] Comment on above: Order Comment: No: D o not add to previous draw Performed By: #### 5 0608 #### [facility] [address] [place] [address], [facility] MCH (RBC) [Entitic mass] 30.2 pg Normal 27.0-33.0 [facility] Comment on above: Order Comment: No: D o not add to previous draw Performed By: #### 5 0608 #### [facility] [address] [place] [id number], [facility] MCHC (RBC) [Mass/Vol] 31.6 g/dL Low 32.0-35.0 [facility] Comment on above: Order Comment: No: D o not add to previous draw Performed By: #### 5 0608 #### [facility] [address] [place] [address], [facility] MCV (RBC) [Entitic vol] 95.5 fL Normal 82.0-98.0 [facility] Comment on above: Order Comment: No: D o not add to previous draw Performed By: #### 5 0608 #### [facility] [address] [place] [address], [facility] Nucleated RBC/100 WBC (Bld) [Ratio] 0 % Normal 0-0 [facility] Comment on above: Order Comment: No: D o not add to previous draw Performed By: #### 5 0608 #### [facility] [address] [place] [address], [facility] PLAT CNT 250 10*3/uL Normal 150-400 [facility] Comment on above: Order Comment: No: D o not add to previous draw Performed By: #### 5 0608 #### [facility] [address] [facility] [address], [facility] RBC (Bld) [#/Vol] 4.67 10*6/uL Normal 3.80-5.00 [facility] Comment on above: Order Comment: No: D o not add to previous draw Performed By: #### 5 0608 #### [facility] [address] [place] [address], [facility] WBC (Bld) [#/Vol] 9.20 10*3/uL Normal 4.00-10.60 [facility] Comment on above: Order Comment: No: D o not add to previous draw Performed By: #### 5 0608 #### [facility] [address] POC GLUCOSE LABon 02-02-2019 Glucose [Mass/Vol] 146 mg/dL High 70-100 [facility] Comment on above: Performed By: #### 5 0608 #### [facility] [address] [facility]. [address] Glucose [Mass/Vol] 115 mg/dL High 70-100 [facility] Comment on above: Performed By: #### 5 0608 #### [facility] [address] [facility]. [address] PROTHROMBIN TIMEon 9 INR Coag (PPP) [Relative time] 1.22 {INR} High 0.91-1.16 [facility] Comment on above: Order Comment: No: D [...] 1995;108:[id number]. Performed By: #### 5 0608 #### [facility] [address] [facility] [address], [facility] PT Coag (PPP) [Time] 15.4 s High 12.3-14.8 [facility] Comment on above: Order Comment: No: D o not add to previous draw Result Comment: ALL RESULTS MUST BE INTERPRETED WITH RESPECT TO BLOOD DRAWING ARTIFACT OR DILUTION ERROR OF ANTICOAGULANT AT THE TIME OF SAMPLING. Performed By: #### 5 [id number] #### [facility] [address] [facility] [address], [facility] POC GLUCOSE LABon 02-01-2019 Glucose [Mass/Vol] 152 mg/dL High 70-100 [facility] Comment on above: Performed By: #### 5 0608 #### [facility] [address] [place] [id number], [facility] Glucose [Mass/Vol] 118 mg/dL High 70-100 [facility] Comment on above: Performed By: #### 5 0608 #### [facility] [address] [place] [address], [place] Glucose [Mass/Vol] 197 mg/dL High 70-100 [facility] Comment on above: Performed By: #### 5 0608 #### [facility] [address] [facility] [place] [address], [facility] Glucose [Mass/Vol] 123 mg/dL High 70-100 [facility] Comment on above: Performed By: #### 5 0608 #### [facility] [address] [facility] [place] [address], [facility] PROTHROMBIN TIMEon 9 INR Coag (PPP) [Relative time] 1.24 {INR} High 0.91-1.16 [facility] Comment on above: Order Comment: Unkno wn [...] 1995;108:231S-246S. Performed By: #### 0 0071 #### [facility] [address] [place] [address], [facility] PT Coag (PPP) [Time] 15.6 s High 12.3-14.8 [facility] Comment on above: Order Comment: Unkno wn Result Comment: ALL RESULTS MUST BE INTERPRETED WITH RESPECT TO BLOOD DRAWING ARTIFACT OR DILUTION ERROR OF ANTICOAGULANT AT THE TIME OF SAMPLING. Performed By: #### 0 0071 #### [facility] [address] [facility]. [address] BASIC METABOLIC PANELon 01-20 Calcium [Mass/Vol] 9.5 mg/dL Normal 8.6-10.3 [facility] Comment on above: Order Comment: No: D o not add to previous draw Performed By: #### 0 0071 #### [facility] [address] [facility] [place] [address], [facility] Chloride [Moles/Vol] 98 mmol/L Normal 98-107 [facility] Comment on above: Order Comment: No: D o not add to previous draw Performed By: #### 0 0071 #### [facility] [address] [facility] [place] [address], [facility] CO2 [Moles/Vol] 29 mmol/L Normal 21-31 [facility] Comment on above: Order Comment: No: D o not add to previous draw Performed By: #### 0 0071 #### [facility] [address] [facility] [place] [address], [facility] Creatinine [Mass/Vol] 0.72 mg/dL Normal 0.60-1.20 [facility] Comment on above: Order Comment: No: D o not add to previous draw Performed By: #### 0 0071 #### [facility] [address] [place] [address], [place] GFR/1.73 sq M predicted among blacks MDRD (S/P/Bld) [Vol rate/Area] mL/min/{1.73_m2} Normal >60 [facility] Comment on above: Order Comment: No: D o not add to previous draw Performed By: #### 0 0071 #### [facility] [address] [place] [address], [facility] GFR/1.73 sq M predicted among non-blacks MDRD (S/P/Bld) [Vol rate/Area] mL/min/{1.73_m2} Normal >60 [facility] Comment on above: Order Comment: No: D o not add to previous draw Performed By: #### 0 0071 #### [facility] [address] [place] [address], [place] Glucose [Mass/Vol] 120 mg/dL High 70-100 [facility] Comment on above: Order Comment: No: D o not add to previous draw Performed By: #### 0 0071 #### [facility] [address] [place] [address], [place] Potassium [Moles/Vol] 3.5 mmol/L Normal 3.5-5.1 [facility] Comment on above: Order Comment: No: D o not add to previous draw Performed By: #### 0 0071 #### [facility] [address] [place] [address], [place] Sodium [Moles/Vol] 138 mmol/L Normal 136-145 [facility] Comment on above: Order Comment: No: D o not add to previous draw Performed By: #### 0 0071 #### [facility] [address] [place] [address], [facility] Urea nitrogen [Mass/Vol] 20 mg/dL Normal 7-25 [facility] Comment on above: Order Comment: No: D o not add to previous draw Performed By: #### 0 0071 #### [facility] [address] [place] [address], [facility] CBC COMPLETE BLOOD COUNTon 01-31-2019 Erythrocyte distribution width (RBC) [Ratio] 14.6 % Normal 11.5-15.0 [facility] Comment on above: Order Comment: No: D o not add to previous draw Performed By: #### 0 0071 #### [facility] [address] [place] [address], [facility] Hematocrit (Bld) [Volume fraction] 42.7 % Normal 36.0-45.0 [facility] Comment on above: Order Comment: No: D o not add to previous draw Performed By: #### 0 0071 #### [facility] [address] [place] [address], [facility] Hemoglobin (Bld) [Mass/Vol] 13.8 g/dL Normal 12.0-15.0 [facility] Comment on above: Order Comment: No: D o not add to previous draw Performed By: #### 0 0071 #### [facility] [address] [place] [address], [facility] MCH (RBC) [Entitic mass] 31.0 pg Normal 27.0-33.0 [facility] Comment on above: Order Comment: No: D o not add to previous draw Performed By: #### 0 0071 #### [facility] [address] [place] [address], [facility] MCHC (RBC) [Mass/Vol] 32.3 g/dL Normal 32.0-35.0 [facility] Comment on above: Order Comment: No: D o not add to previous draw Performed By: #### 0 0071 #### [facility] [address] [place] [address], [facility] MCV (RBC) [Entitic vol] 96.0 fL Normal 82.0-98.0 [facility] Comment on above: Order Comment: No: D o not add to previous draw Performed By: #### 0 0071 #### [facility] [address] [facility] [address], [facility] Nucleated RBC/100 WBC (Bld) [Ratio] 0 % Normal 0-0 [facility] Comment on above: Order Comment: No: D o not add to previous draw Performed By: #### 0 0071 #### [facility] [address] [place] [address], [facility] PLAT CNT 217 10*3/uL Normal 150-400 [facility] Comment on above: Order Comment: No: D o not add to previous draw Performed By: #### 0 0071 #### [facility] [address] [place] [address], [facility] RBC (Bld) [#/Vol] 4.45 10*6/uL Normal 3.80-5.00 [facility] Comment on above: Order Comment: No: D o not add to previous draw Performed By: #### 0 0071 #### [facility] [address] [facility] [address], [facility] WBC (Bld) [#/Vol] 9.17 10*3/uL Normal 4.00-10.60 [facility] Comment on above: Order Comment: No: D o not add to previous draw Performed By: #### 0 0071 #### [facility] [address] POC GLUCOSE LABon 01-31-2019 Glucose [Mass/Vol] 116 mg/dL High 70-100 [facility] Comment on above: Performed By: #### 0 0071 #### [facility] [address] [place] [address], [facility] Glucose [Mass/Vol] 122 mg/dL High 70-100 [facility] Comment on above: Performed By: #### 0 0071 #### [facility] [address] [place] [address], [place] Glucose [Mass/Vol] 191 mg/dL High 70-100 [facility] Comment on above: Performed By: #### 0 0071 #### [facility] [address] [place] [address], [place] Glucose [Mass/Vol] 131 mg/dL High 70-100 [facility] Comment on above: Performed By: #### 0 0071 #### [facility] [address] [place] [address], [facility] PROTHROMBIN TIMEon 9 INR Coag (PPP) [Relative time] 1.24 {INR} High 0.91-1.16 [facility] Comment on above: Order Comment: Unkno [...] 1995;108:231S-246S. Performed By: #### 0 0071 #### [facility] [address] [place] [address], [facility] PT Coag (PPP) [Time] 15.6 s High 12.3-14.8 [facility] Comment on above: Order Comment: Unkno wn Result Comment: ALL RESULTS MUST BE INTERPRETED WITH RESPECT TO BLOOD DRAWING ARTIFACT OR DILUTION ERROR OF ANTICOAGULANT AT THE TIME OF SAMPLING. Performed By: #### 0 0071 #### [facility] [address] [place] [address], [facility] BASIC METABOLIC PANELon 01-20 Calcium [Mass/Vol] 10.0 mg/dL Normal 8.6-10.3 [facility] Comment on above: Order Comment: No: D o not add to previous draw Performed By: #### 0 0071 #### [facility] [address] [place] [address], [facility] Chloride [Moles/Vol] 99 mmol/L Normal 98-107 [facility] Comment on above: Order Comment: No: D o not add to previous draw Performed By: #### 0 0071 #### [facility] [address] [place] [address], [facility] CO2 [Moles/Vol] 30 mmol/L Normal 21-31 [facility] Comment on above: Order Comment: No: D o not add to previous draw Performed By: #### 0 0071 #### [facility] [address] [place] [address], [facility] Creatinine [Mass/Vol] 0.74 mg/dL Normal 0.60-1.20 [facility] Comment on above: Order Comment: No: D o not add to previous draw Performed By: #### 0 0071 #### [facility] [address] [place] [address], [facility] GFR/1.73 sq M predicted among blacks MDRD (S/P/Bld) [Vol rate/Area] mL/min/{1.73_m2} Normal >60 [facility] Comment on above: Order Comment: No: D o not add to previous draw Performed By: #### 0 0071 #### [facility] [address] [place] [address], [place] GFR/1.73 sq M predicted among non-blacks MDRD (S/P/Bld) [Vol rate/Area] mL/min/{1.73_m2} Normal >60 [facility] Comment on above: Order Comment: No: D o not add to previous draw Performed By: #### 0 0071 #### [facility] [address] [place] [address], [place] Glucose [Mass/Vol] 112 mg/dL High 70-100 [facility] Comment on above: Order Comment: No: D o not add to previous draw Performed By: #### 0 0071 #### [facility] [address] [place] [address], [place] Potassium [Moles/Vol] 4.3 mmol/L Normal 3.5-5.1 [facility] Comment on above: Order Comment: No: D o not add to previous draw Performed By: #### 0 0071 #### [facility] [address] [place] [address], [place] Sodium [Moles/Vol] 137 mmol/L Normal 136-145 [facility] Comment on above: Order Comment: No: D o not add to previous draw Performed By: #### 0 0071 #### [facility] [address] [place] [address], [place] Urea nitrogen [Mass/Vol] 20 mg/dL Normal 7-25 [facility] Comment on above: Order Comment: No: D o not add to previous draw Performed By: #### 0 0071 #### [facility] [address] [place] [address], [place] Calcium [Mass/Vol] 9.3 mg/dL Normal 8.6-10.3 [facility] Comment on above: Order Comment: No: D o not add to previous draw Performed By: #### 5 6101 #### [facility] [address] [place] [address], [place] Chloride [Moles/Vol] 103 mmol/L Normal 98-107 [facility] Comment on above: Order Comment: No: D o not add to previous draw Performed By: #### 5 6101 #### [facility] [address] [place] [address], [place] CO2 [Moles/Vol] 28 mmol/L Normal 21-31 [facility] Comment on above: Order Comment: No: D o not add to previous draw Performed By: #### 5 6101 #### [facility] [address] [place] [address], [place] Creatinine [Mass/Vol] 0.62 mg/dL Normal 0.60-1.20 [facility] Comment on above: Order Comment: No: D o not add to previous draw Performed By: #### 5 6101 #### [facility] [address] [place] [address], [place] GFR/1.73 sq M predicted among blacks MDRD (S/P/Bld) [Vol rate/Area] mL/min/{1.73_m2} Normal >60 [facility] Comment on above: Order Comment: No: D o not add to previous draw Performed By: #### 5 6101 #### [facility] [address] [place] [address], [place] GFR/1.73 sq M predicted among non-blacks MDRD (S/P/Bld) [Vol rate/Area] mL/min/{1.73_m2} Normal >60 [facility] Comment on above: Order Comment: No: D o not add to previous draw Performed By: #### 5 [id number] #### [facility] [address] [place] [address], [place] Glucose [Mass/Vol] 117 mg/dL High 70-100 [facility] Comment on above: Order Comment: No: D o not add to previous draw Performed By: #### 5 6101 #### [facility] [address] [place] [address], [place] Potassium [Moles/Vol] 3.5 mmol/L Normal 3.5-5.1 [facility] Comment on above: Order Comment: No: D o not add to previous draw Performed By: #### 5 6101 #### [facility] [address] [place] [address], [place] Sodium [Moles/Vol] 140 mmol/L Normal 136-145 [facility] Comment on above: Order Comment: No: D o not add to previous draw Performed By: #### 5 6101 #### [facility] [address] [place] [address], [place] Urea nitrogen [Mass/Vol] 15 mg/dL Normal 7-25 [facility] Comment on above: Order Comment: No: D o not add to previous draw Performed By: #### 5 [id number] #### [facility] [address] [place] [address], [place] CBC COMPLETE BLOOD COUNTon 0 - Erythrocyte distribution width (RBC) [Ratio] 14.6 % Normal 11.5-15.0 [facility] Comment on above: Order Comment: No: D o not add to previous draw Performed By: #### 5 [id number] #### [facility] [address] [place] [address], [place] Hematocrit (Bld) [Volume fraction] 42.1 % Normal 36.0-45.0 [facility] Comment on above: Order Comment: No: D o not add to previous draw Performed By: #### 5 [id number] #### [facility] [address] [place] [address], [place] Hemoglobin (Bld) [Mass/Vol] 13.4 g/dL Normal 12.0-15.0 [facility] Comment on above: Order Comment: No: D o not add to previous draw Performed By: #### 5 [id number] #### [facility] [address] [place] [id number], [facility] MCH (RBC) [Entitic mass] 30.6 pg Normal 27.0-33.0 [facility] Comment on above: Order Comment: No: D o not add to previous draw Performed By: #### 5 [id number] #### [facility] [address] [place] [id number], [facility] MCHC (RBC) [Mass/Vol] 31.8 g/dL Low 32.0-35.0 [facility] Comment on above: Order Comment: No: D o not add to previous draw Performed By: #### 5 6101 #### [facility] [address] [place] [address], [facility] MCV (RBC) [Entitic vol] 96.1 fL Normal 82.0-98.0 [facility] Comment on above: Order Comment: No: D o not add to previous draw Performed By: #### 5 [id number] #### [facility] [address] [place] [id number], [facility] Nucleated RBC/100 WBC (Bld) [Ratio] 0 % Normal 0-0 [facility] Comment on above: Order Comment: No: D o not add to previous draw Performed By: #### 5 [id number] #### [facility] [address] [place] [id number], [place] PLAT CNT 215 10*3/uL Normal 150-400 [facility] Comment on above: Order Comment: No: D o not add to previous draw Performed By: #### 5 6101 #### [facility] [address] [place] [id number], [facility] RBC (Bld) [#/Vol] 4.38 10*6/uL Normal 3.80-5.00 [facility] Comment on above: Order Comment: No: D o not add to previous draw Performed By: #### 5 [id number] #### [facility] [address] WBC (Bld) [#/Vol] 8.75 10*3/uL Normal 4.00-10.60 [facility] Comment on above: Order Comment: No: D o not add to previous draw Performed By: #### 5 [id number] #### [facility] [address] Cardiovascular Lab Reporton 01-30-2019 Cardiovascular Lab Report [facility] Patient Name: Afia Gill [facility] Kassy MR #: [id number] Department of Physician: [facility] Tayler Gomez M.D. Division of Service Date: 01/29/2019 Cardiology Birthdate: 1950 Adult Cardiovascular Room #: 3AB [id number] [facility] [address] [place] [address] Cardiovascular Laboratory Report INDICATION: The patient is [...] signed informed consent. She was brought to dental laboratory technician in a fasting state. The right neck area was prepped and draped in usual fashion. Using ultrasound guidance and micropuncture technique, the internal jugular vein was accessed. A 6-Surinamese x 11 cm sheath was placed. A 6-Surinamese Caldera catheter was used for right heart catheterization with measurement of pressures and calculation of cardiac output using the estimated Nader method. The Caldera catheter was removed. Using ultrasound guidance and micropuncture technique, the right radial artery was accessed. A 6-Surinamese x 11 cm Hydrophilic sheath was advanced. Verapamil was given through the sheath and a bolus of bivalirudin was given intravenously as the patient has prior history of heparin-induced thrombocytopenia. Note that, the care was taken to avoid any use of heparin during the procedure. Bilateral selective coronary angiography was then performed using 6-Surinamese JL3.5 and JR5 diagnostic catheters. Catheters were removed. A 6-Surinamese angled pigtail catheter was advanced over the [...] with 30% left ventricular ejection fraction. 3. [id number]-[id number] mitral regurgitation. 4. Severely elevated filling pressures. [...] Gomez M.D. Date Trans: 01/30/2019 07:50 Kassy/ivan [id number] cc: Yahir Brothers M.D. [address] [place] [place] [address] Yahir Mijares M.D. [address] [place] [address] Normal [facility] MAGNESIUM BLOODon 01-30-2019 Magnesium [Mass/Vol] 2.2 mg/dL Normal 1.9-2.7 [facility] Comment on above: Order Comment: No: D o not add to previous draw Performed By: #### 0 0071 #### [facility] [address] [place] [address], [facility] Magnesium [Mass/Vol] 2.2 mg/dL Normal 1.9-2.7 [facility] Comment on above: Order Comment: No: D o not add to previous draw Performed By: #### 5 [id number] #### [facility] [address] [place] [address], [place] POC GLUCOSE LABon 01-30-2019 Glucose [Mass/Vol] 107 mg/dL High 70-100 [facility] Comment on above: Performed By: #### 5 [id number] #### [facility] [address] [place] [address], [place] Glucose [Mass/Vol] 125 mg/dL High 70-100 [facility] Comment on above: Performed By: #### 5 6101 #### [facility] [address] [facility] [place] [address], [facility] Glucose [Mass/Vol] 137 mg/dL High 70-100 [facility] Comment on above: Performed By: #### 5 6101 #### [facility] [address] [facility] [address], [facility] Glucose [Mass/Vol] 114 mg/dL High 70-100 [facility] Comment on above: Performed By: #### 5 6101 #### [facility] [address] PROTHROMBIN TIMEon 9 INR Coag (PPP) [Relative time] 1.23 {INR} High 0.91-1.16 [facility] Comment on above: Order Comment: No: D [...] 1995;108:231S-246S. Performed By: #### 5 6101 #### [facility] [address] PT Coag (PPP) [Time] 15.5 s High 12.3-14.8 [facility] Comment on above: Order Comment: No: D o not add to previous draw Result Comment: ALL RESULTS MUST BE INTERPRETED WITH RESPECT TO BLOOD DRAWING ARTIFACT OR DILUTION ERROR OF ANTICOAGULANT AT THE TIME OF SAMPLING. Performed By: #### 5 [id number] #### [facility] [address] TSH3on 01-30-2019 TSH 3RD GENERATION 1.24 uIU/mL Normal 0.34-5.60 [facility] Comment on above: Order Comment: No: D o not add to previous draw Performed By: #### 5 [id number] #### [facility] [address] CBC COMPLETE BLOOD COUNTon 0 01-29-2019 Erythrocyte distribution width (RBC) [Ratio] 14.7 % Normal 11.5-15.0 [facility] Comment on above: Order Comment: No: D o not add to previous draw Performed By: #### 5 0608 #### [facility] [address] Hematocrit (Bld) [Volume fraction] 43.4 % Normal 36.0-45.0 [facility] Comment on above: Order Comment: No: D o not add to previous draw Performed By: #### 5 0608 #### [facility] [address] Hemoglobin (Bld) [Mass/Vol] 13.8 g/dL Normal 12.0-15.0 [facility] Comment on above: Order Comment: No: D o not add to previous draw Performed By: #### 5 0608 #### [facility] [address] MCH (RBC) [Entitic mass] 30.3 pg Normal 27.0-33.0 [facility] Comment on above: Order Comment: No: D o not add to previous draw Performed By: #### 5 0608 #### [facility] [address] MCHC (RBC) [Mass/Vol] 31.8 g/dL Low 32.0-35.0 [facility] Comment on above: Order Comment: No: D o not add to previous draw Performed By: #### 5 0608 #### [facility] [address] [facility] [place] [address], [facility] MCV (RBC) [Entitic vol] 95.2 fL Normal 82.0-98.0 [facility] Comment on above: Order Comment: No: D o not add to previous draw Performed By: #### 5 0608 #### [facility] [address] [facility] [address] Nucleated RBC/100 WBC (Bld) [Ratio] 0 % Normal 0-0 [facility] Comment on above: Order Comment: No: D o not add to previous draw Performed By: #### 5 0608 #### [facility] [address] [facility] [address], [facility] PLAT CNT 240 10*3/uL Normal 150-400 [facility] Comment on above: Order Comment: No: D o not add to previous draw Performed By: #### 5 0608 #### [facility] [address] [facility] [address], [facility] RBC (Bld) [#/Vol] 4.56 10*6/uL Normal 3.80-5.00 [facility] Comment on above: Order Comment: No: D o not add to previous draw Performed By: #### 5 0608 #### [facility] [address] [place] [address], [facility] WBC (Bld) [#/Vol] 9.28 10*3/uL Normal 4.00-10.60 [facility] Comment on above: Order Comment: No: D o not add to previous draw Performed By: #### 5 0608 #### [facility] [address] [place] [address], [place] COMP METABOLIC PANELon 01-29 Albumin [Mass/Vol] 4.1 g/dL Normal 3.5-5.7 The [facility] Comment on above: Order Comment: No: D o not add to previous draw Performed By: #### 1 0070, 19731, 62104 #### [facility] [address] [place] [address], [place] ALKALINE PHOSPH 50 IU/L Normal 34-104 The [facility] Comment on above: Order Comment: No: D o not add to previous draw Performed By: #### 1 0070, 92984, 13436 #### [facility] [address] [place] [address], [place] ALT [Catalytic activity/Vol] 14 U/L Normal 7-52 The [facility] Comment on above: Order Comment: No: D o not add to previous draw Performed By: #### 1 0, 48815, 28885 #### [facility] [address] [place] [address], [place] AST [Catalytic activity/Vol] 15 U/L Normal 13-39 The [facility] Comment on above: Order Comment: No: D o not add to previous draw Performed By: #### 1 0, 55129, 05132 #### [facility] [address] [place] [address], [place] Bilirubin [Mass/Vol] 0.8 mg/dL Normal 0.3-1.0 The [facility] Comment on above: Order Comment: No: D o not add to previous draw Performed By: #### 1 0070, 81680, 68315 #### [facility] [address] [place] [address], [place] Calcium [Mass/Vol] 9.6 mg/dL Normal 8.6-10.3 [facility] Comment on above: Order Comment: No: D o not add to previous draw Performed By: #### 1 0070, 70934, 16885 #### [facility] [address] [place] [address], [place] Chloride [Moles/Vol] 103 mmol/L Normal 98-107 The [facility] Comment on above: Order Comment: No: D o not add to previous draw Performed By: #### 1 0070, 09248, 67015 #### [facility] [address] [place] [address], [place] CO2 [Moles/Vol] 30 mmol/L Normal 21-31 [facility] Comment on above: Order Comment: No: D o not add to previous draw Performed By: #### 1 0, 63556, 38874 #### [facility] [address] [place] [address], [place] Creatinine [Mass/Vol] 0.71 mg/dL Normal 0.60-1.20 The [facility] Comment on above: Order Comment: No: D o not add to previous draw Performed By: #### 1 0, 78650, 66133 #### [facility] [address] [place] [address], [place] GFR/1.73 sq M predicted among blacks MDRD (S/P/Bld) [Vol rate/Area] mL/min/{1.73_m2} Normal >60 The [facility] Comment on above: Order Comment: No: D o not add to previous draw Performed By: #### 1 0070, 15508, 17418 #### [facility] [address] [place] [address], [place] GFR/1.73 sq M predicted among non-blacks MDRD (S/P/Bld) [Vol rate/Area] mL/min/{1.73_m2} Normal >60 The [facility] Comment on above: Order Comment: No: D o not add to previous draw Performed By: #### 1 0, 50491, 09621 #### [facility] [address] [place] [address], [place] Glucose [Mass/Vol] 116 mg/dL High 70-100 The [facility] Comment on above: Order Comment: No: D o not add to previous draw Performed By: #### 1 0, 89409, 68445 #### [facility] [address] [place] [address], [place] Potassium [Moles/Vol] 3.9 mmol/L Normal 3.5-5.1 The [facility] Comment on above: Order Comment: No: D o not add to previous draw Performed By: #### 1 0, , 72558 #### [facility] [address] [place] [address], [place] Protein [Mass/Vol] 7.6 g/dL Normal 6.0-8.3 The [facility] Comment on above: Order Comment: No: D o not add to previous draw Performed By: #### 1 0, , 06017 #### [facility] [address] [place] [address], [place] Sodium [Moles/Vol] 140 mmol/L Normal 136-145 [facility] Comment on above: Order Comment: No: D o not add to previous draw Performed By: #### 1 0, 47524, 02513 #### [facility] [address] [place] [address], [place] Urea nitrogen [Mass/Vol] 18 mg/dL Normal 7-25 The [facility] Comment on above: Order Comment: No: D o not add to previous draw Performed By: #### 1 0, 05871, 65141 #### [facility] [address] [place] [address], [place] HEMOGLOBIN A1Con 01-29-2019 HbA1c (Bld) [Mass fraction] 6.1 % High 4.0-6.0 The [facility] Comment on above: Order Comment: Yes: Add to Previous draw if able Performed By: #### 5 6101 #### [facility] [address] [place] [address], [place] HbA1c (Bld) [Mass fraction] 128 mg/dL High 70-126 The [facility] Comment on above: Order Comment: Yes: Add to Previous draw if able Performed By: #### 5 6101 #### [facility] [address] [place] [address], [facility] LIPID PROFILEon 01-29-2019 Cholesterol [Mass/Vol] 130 mg/dL Normal 120-200 The [facility] Comment on above: Result Comment: CHOL ESTEROL REFERENCE RANGE: 20 YEARS AND OLDER CARDIOVASCULAR RISK Less than 200 mg/dl Low Risk 200 to 239 mg/dl Borderline Risk 240 mg/dl and greater High Risk Performed By: #### 1 0070, 12628, 24826 #### [facility] [address] [place] [address], [place] Cholesterol in HDL [Mass/Vol] 31 mg/dL Normal 23-92 The [facility] Comment on above: Result Comment: Slig ht variation in normal range could be due to gender and/or age. HDL CHOLESTEROL REFERENCE RANGE: 20 years and older Cardiovascular Risk > or =60 mg/dL Desirable 40 TO 59 mg/dL Low Risk <40 mg/dL High Risk Performed By: #### 1 0, 00913, 22400 #### [facility] [address] [place] [address], [place] Cholesterol in LDL [Mass/Vol] 67 mg/dL Normal 0-130 The [facility] Comment on above: Result Comment: LDL IS A CALCULATION LDL IS ONLY VALID IF THE TRIG IS LESS THAN 400. Performed By: #### 1 0, 21190, 04032 #### [facility] [address] [place] [address], [place] Cholesterol.total/C holesterol in HDL [Mass ratio] 4.2 {ratio} Normal .0-4.5 The [facility] Comment on above: Performed By: #### 1 0, 75757, 20083 #### [facility] [address] [place] [address], [facility] NON-HDL CHOLESTEROL 99 mg/dL Normal The [facility] Comment on above: Performed By: #### 1 0070, 40621, 63776 #### [facility] [address] [place] [address], [facility] Triglyceride [Mass/Vol] 158 mg/dL High 40-149 The [facility] Comment on above: Result Comment: TRIG LYCERIDE REFERENCE RANGE: 20 YEARS AND OLDER CARDIOVASCULAR RISK LESS THAN 150 mg/dl LOW RISK 150 TO 199 mg/dl BORDERLINE RISK 200 mg/dl AND GREATER HIGH RISK Performed By: #### 1 0, 32561, 70137 #### [facility] [address] [place] [address], [facility] VLDL CHOL 32 mg/dL Normal 0-40 The [facility] Comment on above: Performed By: #### 1 0, 63644, 12937 #### [facility] [address] [place] [address], [facility] MAGNESIUM BLOODon 01-29-2019 Magnesium [Mass/Vol] 2.2 mg/dL Normal 1.9-2.7 The [facility] Comment on above: Order Comment: No: D o not add to previous draw Performed By: #### 1 0, 62164, 30222 #### [facility] [address] [place] [address], [facility] POC GLUCOSE LABon 01-29-2019 Glucose [Mass/Vol] 102 mg/dL High 70-100 The [facility] Comment on above: Performed By: #### 8 5499 #### [facility] [address] [place] [address], [place] Glucose [Mass/Vol] 131 mg/dL High 70-100 [facility] Comment on above: Performed By: #### 8 5499 #### [facility] [address] [facility]. [address] PROTHROMBIN TIMEon 9 INR Coag (PPP) [Relative time] 1.39 {INR} High 0.91-1.16 The [facility] Comment on above: Order Comment: Yes: Add [...] 1995;108:231S-246S. Performed By: #### 5 6101 #### [facility] [address] [facility] [address], [facility] PT Coag (PPP) [Time] 17.1 s High 12.3-14.8 The [facility] Comment on above: Order Comment: Yes: Add to Previous draw if able Result Comment: ALL RESULTS MUST BE INTERPRETED WITH RESPECT TO BLOOD DRAWING ARTIFACT OR DILUTION ERROR OF ANTICOAGULANT AT THE TIME OF SAMPLING. Performed By: #### 5 6101 #### [facility] [address] BASIC METABOLIC PANELon 04-0 Calcium [Mass/Vol] 10.1 mg/dL Normal 8.6-10.3 The [facility] Comment on above: Performed By: #### 0 0071 #### [facility] [address] [place] [address], [place] Chloride [Moles/Vol] 100 mmol/L Normal 98-107 The [facility] Comment on above: Performed By: #### 0 0071 #### [facility] [address] [place] [address], [place] CO2 [Moles/Vol] 30 mmol/L Normal 21-31 The [facility] Comment on above: Performed By: #### 0 0071 #### [facility] [address] [place] [address], [place] Creatinine [Mass/Vol] 0.71 mg/dL Normal 0.60-1.20 The [facility] Comment on above: Performed By: #### 0 0071 #### [facility] [address] [place] [address], [place] GFR/1.73 sq M predicted among blacks MDRD (S/P/Bld) [Vol rate/Area] mL/min/{1.73_m2} Normal >60 The [facility] Comment on above: Performed By: #### 0 0071 #### [facility] [address] [place] [address], [place] GFR/1.73 sq M predicted among non-blacks MDRD (S/P/Bld) [Vol rate/Area] mL/min/{1.73_m2} Normal >60 The [facility] Comment on above: Performed By: #### 0 0071 #### [facility] [address] [place] [address], [place] Glucose [Mass/Vol] 93 mg/dL Normal 70-100 [facility] Comment on above: Performed By: #### 0 0071 #### [facility] [address] [place] [address], [place] Potassium [Moles/Vol] 3.7 mmol/L Normal 3.5-5.1 The [facility] Comment on above: Performed By: #### 0 0071 #### [facility] [address] [place] [address], [facility] Sodium [Moles/Vol] 139 mmol/L Normal 136-145 [facility] Comment on above: Performed By: #### 0 0071 #### [facility] [address] [place] [id number], [facility] Urea nitrogen [Mass/Vol] 16 mg/dL Normal 7-25 The [facility] Comment on above: Performed By: #### 0 0071 #### [facility] [address] [place] [address], [facility] CBC COMPLETE BLOOD COUNTon 0 01-22-2019 Erythrocyte distribution width (RBC) [Ratio] 14.9 % Normal 11.5-15.0 The [facility] Comment on above: Performed By: #### 5 0608 #### [facility] [address] [place] [id number], [facility] Hematocrit (Bld) [Volume fraction] 43.0 % Normal 36.0-45.0 The [facility] Comment on above: Performed By: #### 5 0608 #### [facility] [address] [place] [id number], [facility] Hemoglobin (Bld) [Mass/Vol] 13.7 g/dL Normal 12.0-15.0 The [facility] Comment on above: Performed By: #### 5 0608 #### [facility] [address] [place] [id number], [facility] MCH (RBC) [Entitic mass] 30.0 pg Normal 27.0-33.0 The [facility] Comment on above: Performed By: #### 5 0608 #### [facility] [address] [place] [id number], [facility] MCHC (RBC) [Mass/Vol] 31.9 g/dL Low 32.0-35.0 The [facility] Comment on above: Performed By: #### 5 0608 #### [facility] [address] [facility]. [address] MCV (RBC) [Entitic vol] 94.3 fL Normal 82.0-98.0 The [facility] Comment on above: Performed By: #### 5 0608 #### [facility] [address] Nucleated RBC/100 WBC (Bld) [Ratio] 0 % Normal 0-0 The [facility] Comment on above: Performed By: #### 5 0608 #### [facility] [address] [facility]. [address] PLAT CNT 270 10*3/uL Normal 150-400 The [facility] Comment on above: Performed By: #### 5 0608 #### [facility] [address] [facility]. [address] RBC (Bld) [#/Vol] 4.56 10*6/uL Normal 3.80-5.00 The [facility] Comment on above: Performed By: #### 5 0608 #### [facility] [address] [place] [address], [facility] WBC (Bld) [#/Vol] 9.44 10*3/uL Normal 4.00-10.60 The [facility] Comment on above: Performed By: #### 5 0608 #### [facility] [address] PROTHROMBIN TIMEon 9 INR Coag (PPP) [Relative time] 1.85 {INR} High 0.91-1.16 The [facility] Comment on above: Result Comment: ACCC P [...] 1995;108:231S-246S. Performed By: #### 5 6101 #### [facility] [address] PT Coag (PPP) [Time] 21.4 s High 12.3-14.8 The [facility] Comment on above: Result Comment: ALL RESULTS MUST BE INTERPRETED WITH RESPECT TO BLOOD DRAWING ARTIFACT OR DILUTION ERROR OF ANTICOAGULANT AT THE TIME OF SAMPLING. Performed By: #### 5 6101 #### [facility] [address] Encounters Encounter Date Encounter Type Care Provider Facility Start: 01-23-2024 End: 01-23-2024 ambulatory ANITA [facility] Start: 01-11-2024 End: 01-11-2024 ambulatory ANITA [facility] Start: 12-31-2023 End: 12-31-2023 ambulatory YAHIR BROTHERS [facility] Start: 12-26-2023 End: 12-29-2023 Evaluation and management of inpatient COLIN KEITH [facility] Start: 12-25-2023 End: 12-29-2023 Evaluation and management of inpatient BIJAL Vincent BARNHART [facility] Start: 12-21-2023 End: 12-29-2023 Orders Only Korina Oliver MD Work Phone: [facility] Start: 12-20-2023 End: 12-29-2023 Emergency department patient visit [facility] Start: 12-20-2023 End: 12-29-2023 Emergency department patient visit DANAE BRITTON [facility] Start: 12-20-2023 End: 12-28-2023 Evaluation and management of inpatient [facility] Start: 11-01-2023 End: 11-01-2023 ambulatory EBER [facility] Start: 10-31-2023 End: 10-31-2023 ambulatory YAHIR BROTHERS Not Available Start: 09-05-2023 End: 09-05-2023 ambulatory YAHIR BROTHERS Not Available Start: 07-07-2023 End: 07-10-2023 ambulatory YAHIR BROTHERS Not Available Start: 05-23-2023 End: 05-23-2023 ambulatory RAMAN KANGQING [facility] Start: 03-02-2023 End: 03-03-[address] DOCTOR LOYOLA Facility:[facility] Start: 02-19-2023 End: 02-19-2023 ambulatory [facility] Start: 12-27-2022 End: 12-28-[address] YAHIR BROTHERS Facility:[facility] Start: 05-17-2022 End: 05-18-[address] YAHIR BROTHERS Facility:[facility] Start: 01-29-2019 End: 02-02-2019 Evaluation and management of inpatient YAHIR BROTHERS Facility:[facility] Procedures Date Procedure Procedure [...] Td Vaccines (2 - Td or Tdap) [facility] Start: 12-20-2024 Adult BMI Screening Adult BMI Screen ing [facility] Start: 12-20-2024 Tobacco Screening Tobacco Screening [facility] Start: 06-22-2023 COVID-19 Vaccine ( season) COVID-19 Vaccine ( season) [facility] Start: 2017 Fall Risk Screening Fall Risk Screen ing [facility] Start: 1970 Adult BMI Follow Up Plan Adult BMI Follow Up Plan [facility] Start: 1964 Depression Screening Depression Scre ening [facility] Start: 1950 Medicare Annual Wellness Visit Medicare Annual Wellness Visit [facility] Immunizations Immunization Date Immunization Notes Care Provider Fa cility 02-04-2021 COVID-19, mRNA, LNP- S, PF, 100mcg/0.5mL Dose Korina Oliver MD Work Phone: [facility] 01-07-2021 COVID-19, mRNA, LNP- S, PF, 100mcg/0.5mL Dose Korina Oliver MD Work Phone: [facility] 08-03-2019 pneumococcal conjuga te vaccine, 13 valent Korina Oliver MD Work Phone: [facility] Payers Date Payer Category Payer Unknown [employer] [id number] 2022-Present [phone] [address] [place] [address] [id number] 1959 Unknown [id number] 1959 Unknown [id number] 1952 Unknown [id number] [id number]7 1952 Unknown [id number] 2.16.840.1.378690.3.579.2.593 1952 Unknown [id number] 2.16.840.1.583105.3.579.2.593 1952 Unknown [id number] 2.16.840.1.092460.3.579.2.593 1952 Unknown [id number] 2.16.840.1.645676.3.579.2.1286 1952 Unknown [id number] 2.16.840.1.328781.3.579.2.1286 1952 Unknown [id number] 2.16.840.1.032452.3.579.2.1286 1952 Unknown [id number] 2.16.840.1.375576.3.579.2.1286 1952 Unknown [id number] 2.16.840.1.879281.3.579.2.1286 1952 Unknown [id number] 2.16.840.1.043440.3.579.2.1286 1952 Unknown [id number] 2.16.840.1.095118.3.579.2.1286 1952 Unknown [id number] 2.16.840.1.932997.3.579.2.1286 1952 Unknown [id number] 2.16.840.1.569711.3.579.2.1286 1952 Unknown [id number] 2.16.840.1.572787.3.579.2.1259 1952 Unknown [id number] 2.16.840.1.723683.3.579.2.1259 1952 Unknown [id number] 2.16.840.1.550675.3.579.2.1259 1950 Unknown [id number] 2.16.840.1.615936.3.579.2.1286 Medicare [id number] Social History Date Type Detail Facility Start: 12-20-2023 Tobacco smoking stat us [facility] Ex-smoker [facility] End: 03-11-2002 History of tobacco use Current smoker [facility] End: 03-11-2002 History of tobacco use [facility] Start: 12-02-2020 End: 12-20-2023 Cigarettes smoked current (pack per day) - Reported 1 [facility] Start: 12-20-2023 Tobacco use and exposure Smoke less tobacco [facility] Start: 12-21-2023 Alcohol intake Ex-drinker (finding) [facility] Start: 12-02-2020 End: 12-20-2023 C [employer] [facility] Has the [employer], or [employer] threatened to shut off services in your home in past 12Mo No [facility] In the past 12 month s, has lack of transportation kept you from medical appointments or from getting medications? No [facility] Start: 12-20-2023 Tobacco Comment quit 17 years ago [facility] Start: 1950 Sex Assigned At Not on file P [employer] Goals Date Patient Goal Desired Activity /State [...] Past Medical History: Diagnosis Date Atrial fibrillation ([facility]) CHF (congestive heart failure) ([facility]) Hypertension Pulmonary embolism ([facility]) Past Surgical History: [...] on file Intimate Partner Violence: Unknown (12/13/2023) [place] Safety & Environment Fear of Current or [...] 2 ) G (more content not included)... [facility] Progress note 01-11-2024 Note Date & Type [...] today she [facility]. Her son was present via telephone [...] Past Medical History: Diagnosis Date Atrial fibrillation ([facility]) CHF (congestive heart failure) ([facility]) Hypertension Pulmonary embolism ([facility]) Past Surgical History: [...] on file Intimate Partner Violence: Unknown (12/13/2023) [place] Safety & Environment Fear of Current or [...] kg (304 lb) (more content not included)... [facility] Progress note 11-01-2023 Note Date & Type Note Facility 11-01-2023 Note Cardiovascular Medic [facility] SUBJECTIVE Chief Complaint Patient presents with [...] Disp: , Rfl (more content not included)... [facility] note 11-01-2023 Note Date & Type [...] All other systems reviewed and are negative. [facility] Progress note 05-23-2023 Note Date & Type Note Facility 05-23-2023 Note [place] [facility] - [facility] Subjective Afia Gill is a [...] filling pressures. She (more content not included)... [facility] note 02-19-2023 Note Date & Type [...] All other systems reviewed and are negative. [facility] note 02-19-2023 Note Date & Type [...] Obstructive sleep apnea, on CPAP. Status post [place] filter. Morbid obesity. She is currently on oxygen since December 20, 2018. Holter done to investigate palpitations showed atrial fibrillation with NSVT. Stress test 01/13/2019;1. Fixed versus minimally reversible perfusion defect of the anterior septal wall and apex. 2. Marked cardiomegaly and markedly low ejection fraction, 36%. 3. Dyskinesia of the apex with otherwise global moderate hypokinesis. Echocardiogram 2 (more content not included)... [facility] Instructions Note Date & Type Note Facility [...] 02/02/2019 Date of : 1950 Physician: Lan Florse MD DISCHARGE SUMMARY PRIMARY DIAGNOSIS: New onset [...] and content) DATE CREATED AUTHOR 06/17/2019 [facility] DATE CREATED AUTHOR AUTHOR'S ORGANIZ ATION 03/03/2023 [facility] DATE CREATED AUTHOR AUTHOR'S ORGANIZ ATION 12/29/2023 [facility] DATE CREATED AUTHOR AUTHOR'S ORGANIZ ATION 12/29/2023 [facility] DATE CREATED AUTHOR AUTHOR'S ORGANIZ ATION 12/31/2023 [facility] DATE CREATED AUTHOR AUTHOR'S ORGANIZ ATION 01/31/2024 [facility] Care Teams (unrecognized sec tion and content) 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 [employer] [facility]. provides no warranty or guarantee of the accuracy or completeness of information in this document.
[2024-02-08 07:57] LABS: Basophils Absolute Auto 0.1 10^3/uL (0.0-0.1); Basophils Percent Auto 0.5 % (0.2-2.0); Eosinophils Absolute Auto 0.6 10^3/uL (0.0-0.7); Eosinophils Percent Auto 4.4 % (0.9-7.0); Hemoglobin 12.5 g/dL (12.0-16.0); Immature Granulocytes Abs Auto 0.11 10^3/uL (0.00-0.03); Immature Granulocytes Pct Auto 0.9 % (0.0-0.5); Lymphocytes Absolute Auto 2.7 10^3/uL (1.2-3.8); Lymphocytes Percent Auto 21.1 % (20.5-60.0); Mean Corpuscular HGB Conc 31.3 g/dL (29.9-35.2); Mean Corpuscular Hemoglobin 28.3 pg (26.7-34.0); Mean Corpuscular Volume 90.7 fL (81.0-99.0); Mean Platelet Volume 10.3 fL (9.5-13.5); Monocytes Absolute Auto 0.8 10^3/uL (0.3-0.8); Monocytes Percent Auto 6.1 % (1.7-12.0); Neutrophils Absolute Auto 8.7 10^3/uL (1.4-6.5); Platelet Count 230 10^3/uL (150-450); Red Blood Count 4.41 10^6/uL (4.20-5.40); Red Cell Distribution Width 14.6 % (11.0-15.0); White Blood Count 12.9 10^3/uL (4.0-11.0)
[2024-02-08 08:35] LABS: Alanine Aminotransferase 25 U/L (14-59); Albumin Globulin Ratio 0.7; Albumin Level 3.1 g/dL (3.4-5.0); Alkaline Phosphatase 92 U/L (46-116); Anion Gap 10.9; Aspartate Amino Transferase 14 U/L (15-37); Bilirubin Direct 0.1 mg/dL (0.0-0.2); Bilirubin Total 0.4 mg/dL (0.2-1.0); Calcium 9.3 mg/dL (8.5-10.1); Chloride 102 mmol/L (98-107); Creatine Kinase 29 U/L (26-192); Estimated GFR (African America >60 (>=60); Estimated GFR (Non-African Ame >60 (>=60); Globulin 4.4 g/dL; Glucose 156 mg/dL (74-106); Potassium 3.9 mmol/L (3.5-5.1); Sodium 139 mmol/L (136-145); Total Protein 7.5 g/dL (6.4-8.2)
[2024-02-08 08:36] LABS: INR 2.07; Prothrombin Time 21.1 sec (9.0-11.6)
== END 2024-02-08 03:18 | disposition home or self-care (01) ==
LOC: LAB 03:17
PROVIDERS: PCP Internal Medicine; Visit Provider Family Medicine
DX: R79.89 Other specified abnormal findings of blood chemistry (principal); M86.9 Osteomyelitis, unspecified
CPT/HCPCS: 36415; 80048; 80076; 82550; 85025; 85610

== ENCOUNTER 2024-02-22 12:48 | Outpatient (OUT) | payer MEDICARE, SELFPAY ==
--- NOTE | 2024-02-22 | MM_ITS ---
Patient Name: ELENI GILL MR#: [id number] : 1950 Exam Date: 02/22/2024 Ordering Doctor: DR SIMA MENDEZ M.D. RADIOLOGY REPORT PROCEDURE: MM SCREENING MAMMO BI COMPARISON: MG MAMM SCREEN MARIELENA W CAD, 12/27/2022. MG MAMM SCREEN MARIELENA W CAD, 12/26/2021. INDICATIONS: Screening for malignant neoplasm Calculator Name NCI Breast Cancer Risk Assessment Tool 5 Year Breast Cancer Risk 1.50% Lifetime Breast Cancer Risk 4.10% Personal Breast Cancer No Personal Ovarian Cancer No Treatments None Family Cancers Grandmother-paternal with breast cancer at age 60; Sister with cervical cancer at age 35. LOCATION: [facility] BREAST COMPOSITION: There are scattered areas of fibroglandular density. FINDINGS: DIAGNOSTIC CATEGORY 2--BENIGN FINDING. NO CHANGE FROM COMPARISON. Limited exam due to patient body habitus and being confined to a chair.Scattered benign-appearing nodules are present. Scattered benign-appearing calcifications are present. Scattered benign-appearing lymph nodes are present. RIGHT BREAST: No significant suspicious finding. Linear scar marker upper outer quadrant. LEFT BREAST: No significant suspicious finding. RECOMMENDATIONS: ROUTINE MAMMOGRAM AND CLINICAL EVALUATION IN 12 MONTHS. PLEASE NOTE: A NORMAL MAMMOGRAM DOES NOT EXCLUDE THE POSSIBILITY OF BREAST CANCER. A CLINICALLY SUSPICIOUS PALPABLE LUMP SHOULD BE BIOPSIED. Dictated by: Catarino Pang MD on 02/22/2024 at 14:08 Approved by: Catarino Pang MD on 02/22/2024 at 14:10
== END 2024-02-22 12:49 | disposition home or self-care (01) ==
LOC: MAMMO 12:48
PROVIDERS: PCP Internal Medicine; Visit Provider Internal Medicine
DX: Z12.31 Encounter for screening mammogram for malignant neoplasm of breast (principal); Z80.3 Family history of malignant neoplasm of breast; Z80.8 Family history of malignant neoplasm of other organs or systems
CPT/HCPCS: 77067

== ENCOUNTER 2024-04-16 12:58 | Outpatient (OUT) | payer MEDICARE, SELFPAY ==
--- NOTE | 2024-04-16 13:55 | CA_ITS ---
Patient Name: ELENI GILL MR#: [id number] : 1950 Exam Date: 04/16/2024 Ordering Doctor: EBER JOSHUA CNP ECHOCARDIOGRAM REPORT PROCEDURE: CA ECHO DOPPLER COMPLETE INDICATIONS: Chronic diastolic congestive heart failure I50.32 COMPARISON: None. DESCRIPTION: COMPLETE ECHOCARDIOGRAM Real-time transthoracic echocardiography with 2D, M-mode, spectral and color flow Doppler performed. QUALITY: Technical quality was good. LEFT VENTRICLE: Normal chamber size. Borderline left ventricular hypertrophy. Global left ventricular systolic function is normal. LV EF: Estimated left ventricular ejection fraction is 55% DIASTOLIC: Not adequately assessed due to heart rhythm. ATRIAL SEPTUM: LEFT ATRIUM: Severe dilatation. RIGHT ATRIUM: Severe dilatation. RIGHT VENTRICLE: Mild dilatation. Normal right ventricular systolic function. TRICUSPID VALVE: Normal mobility and thickness. No stenosis with mild regurgitation. Moderate to severe pulmonary hypertension. RVSP 56 mmHg MITRAL VALVE: Normal mobility and thickness. No evidence of mitral valve stenosis. Mild mitral annular calcification. Mild to moderate mitral regurgitation. AORTIC VALVE: Normal trileaflet appearance. Mildly calcified aortic valve. Normal leaflet mobility. No evidence of aortic valve stenosis. No aortic regurgitation. AORTIC ROOT: Normal diameter and appearance. PULMONIC VALVE: Normal thickness and mobility. No stenosis. Trivial regurgitation. PERICARDIUM: Small circumferential pericardial effusion. IVC: Collapses with inspirations. Severely dilated measuring 3.3 cm PLEURA: CONCLUSION: 1. The left ventricle is normal in size and exhibits normal systolic function. LVEF is 55%. 2. The right ventricle is mildly dilated with normal systolic function. 3. Severe biatrial dilatation. 4. Mild tricuspid and mild to moderate mitral regurgitation. 5. Moderate to severe elevation of right-sided pressures. RVSP is 56 mmHg. 6. Small circumferential pericardial effusion. Adult Echocardiography Procedure Report Left Ventricle LVEDD (3.7 - 5.6 cm): 4.99 cm LVESD (2.2 - 4.0 cm): 3.53 cm LVIVS thickness (0.6 - 1.2 cm): 1.02 cm LVPW thickness (0.5 - 1.0 cm): 1.03 cm e': 0.16 m/s E - e': 5.86 LVOT Max Gradient: 3.51 mm[Hg] LVOT Area (cm2): 0.94 m/s Peak Velocity (LVOT): 0.94 m/s Mean Velocity (LVOT): 0.58 m/s LVOT Diameter 2.19 cm Left Ventricular Ejection Fraction: 55 % Left Atrium LA Volume Index (2D A2C): 75.47 ml/m2 Left Atrium Systolic Dimension: 4.45 cm Mitral Valve Mitral Valve E-Wave Peak Velocity: 0.91 m/s Right Ventricle RV Internal Diastolic Dimension: 4.78 cm Aorta AO Root Diam: 3.04 cm Ascending Ao Diam: 2.78 cm Aortic Valve AoV Area (Peak Baldo): 2.35 cm2, 2.40 cm2 AoV Area (VTI): 2.04 cm2, 2.04 cm2 Peak Velocity(Antegrade Flow): 1.47 m/s, 1.53 m/s Peak Gradient(Antegrade Flow): 8.61 mm[Hg], 9.36 mm[Hg] Mean Velocity(Antegrade Flow): 1.09 m/s, 1.08 m/s Mean Gradient(Antegrade Flow): 5.22 mm[Hg], 5.42 mm[Hg] Velocity Time Integral: 33.88 cm, 33.97 cm Tricuspid Valve Peak Velocity (Regurgitant Flow): 3.22 m/s, 3.21 m/s, 3.45 m/s Pulmonic Valve Mean Gradient: 2.00 mm[Hg] Mean Velocity: 0.65 m/s Peak Velocity: 0.93 m/s, 0.97 m/s Peak Gradient: 3.73 mm[Hg], 3.48 mm[Hg] Right Atrium Right Atrium Systolic Pressure: 125.88 ml, 125.88 ml Dictated by: Yordan Hansen M.D. on 04/16/2024 at 19:53 Approved by: Yordan Hansen M.D. on 04/16/2024 at 19:59
== END 2024-04-16 12:59 | disposition home or self-care (01) ==
LOC: CARD 12:58
PROVIDERS: PCP Internal Medicine; Visit Provider Nurse Practitioner Family
DX: I50.32 Chronic diastolic (congestive) heart failure (principal)
CPT/HCPCS: 93306

== ENCOUNTER 2025-02-23 10:03 | Outpatient (OUT) | payer MEDICARE, SELFPAY ==
--- NOTE | 2025-02-23 10:12 | MM_ITS ---
Patient Name: ELENI GILL MR#: [id number] : 1950 Exam Date: 02/23/2025 Ordering Doctor: DR SIMA MENDEZ M.D. RADIOLOGY REPORT PROCEDURE: MM SCREENING MAMMO BI COMPARISON: MM SCREENING MAMMO BI, 02/22/2024. MG MAMM SCREEN MARIELENA W CAD, 12/27/2022. MG MAMM SCREEN MARIELENA W CAD, 12/26/2021. MG MAMM MARIELENA SCRN W CAD DIG, 06/18/2013. INDICATIONS: Screening Calculator Name NCI Breast Cancer Risk Assessment Tool 5 Year Breast Cancer Risk 1.50% Lifetime Breast Cancer Risk 3.90% Personal Breast Cancer No Personal Ovarian Cancer No Treatments None Family Cancers Grandmother-paternal with breast cancer at age 60; Sister with cervical cancer at age 35. LOCATION: [facility] BREAST COMPOSITION: There are scattered areas of fibroglandular density. FINDINGS: DIAGNOSTIC CATEGORY 1--NEGATIVE. RIGHT BREAST: No significant suspicious finding. LEFT BREAST: No significant suspicious finding. RECOMMENDATIONS: ROUTINE MAMMOGRAM AND CLINICAL EVALUATION IN 12 MONTHS. PLEASE NOTE: A NORMAL MAMMOGRAM DOES NOT EXCLUDE THE POSSIBILITY OF BREAST CANCER. A CLINICALLY SUSPICIOUS PALPABLE LUMP SHOULD BE BIOPSIED. Dictated by: Migue Angela DO on 02/23/2025 at 16:30 Approved by: Migue Angela DO on 02/23/2025 at 16:33
== END 2025-02-23 10:04 | disposition home or self-care (01) ==
LOC: MAMMO 10:05
PROVIDERS: PCP Internal Medicine; Visit Provider Internal Medicine
DX: Z12.31 Encounter for screening mammogram for malignant neoplasm of breast (principal); Z80.3 Family history of malignant neoplasm of breast; Z80.8 Family history of malignant neoplasm of other organs or systems
CPT/HCPCS: 77067

== ENCOUNTER 2025-03-09 13:32 | Outpatient (OUT) | payer MEDICARE, SELFPAY ==
[2025-03-09 15:09] LABS: Anion Gap 10.4; BUN Creatinine Ratio 20.4; Calcium 9.5 mg/dL (8.5-10.1); Carbon Dioxide 30.3 mmol/L (21.0-32.0); Chloride 101 mmol/L (98-107); Estimated GFR (African America >60 (>=60 mL/min/1.73m^2); Estimated GFR (Non-African Ame 50 (>=60 mL/min/1.73m^2); Potassium 4.7 mmol/L (3.5-5.1); Sodium 137 mmol/L (136-145)
[2025-03-09 15:10] LABS: Glucose 233 mg/dL (74-106)
== END 2025-03-09 13:33 | disposition home or self-care (01) ==
LOC: LAB 13:33
PROVIDERS: PCP Internal Medicine; Visit Provider Nurse Practitioner Family
DX: R60.9 Edema, unspecified (principal); I50.22 Chronic systolic (congestive) heart failure
CPT/HCPCS: 36415; 80048; 83880